=== PATIENT | female | born 1950 | race Caucasian/White ===

== ENCOUNTER → 2018-06-06 09:00 | Outpatient (CLI) | payer MEDICARE, MEDICAID, SELFPAY | PROVIDERS: PCP Family Medicine; Visit Provider Orthopaedic Surgery | DX: M25.561 Pain in right knee (principal); M48.50XA Collapsed vertebra, not elsewhere classified, site unspecified, initial encounter for fracture | CPT/HCPCS: 99214 ==

== ENCOUNTER → 2018-06-11 01:31 | Outpatient (CLI) | payer MEDICARE, MEDICAID, SELFPAY ==
--- NOTE | 2018-06-11 11:15 | DI.REPORT_ITS ---
SYMPTOM/DIAGNOSIS: RT INTERNAL DERANGEMENT, PAIN RIGHT KNEE MRI: Comparison is made with plain films dated 04/25/18. Fat suppressed T 2 axial, proton density and fat suppressed T 2 sagittal and proton density and fat suppressed T 2 coronal and proton density oblique sagittal sequences were performed. There is moderate sized joint effusion and a small Fleming's cyst. There is edema in the subcutaneous fat but no prepatellar collection. Loose bodies are seen within the Fleming's cyst. Cruciate and collateral ligaments and extensor mechanism appear intact. There is some amorphous increased signal in the posterior horn and body of the medial meniscus but no evidence of a discrete tear. There is some edema in the medial tibial plateau which could represent a bone contusion versus degenerative change. The medial meniscus is also somewhat peripherally displaced, consistent with degeneration. There is mild periarticular spurring. There is thinning of the cartilage extending down to bone at the patellar apex and lateral patellar facet. IMPRESSION: Moderate sized joint effusion and Fleming's cyst. Loose bodies are seen in the Fleming's cyst. Degenerative changes are noted at the medial meniscus as well as cartilage thinning extending down to bone of the patella.
== END ==
PROVIDERS: PCP Family Medicine; Visit Provider Orthopaedic Surgery
DX: M25.561 Pain in right knee (principal); M25.461 Effusion, right knee; M71.21 Synovial cyst of popliteal space [Baker], right knee; M17.11 Unilateral primary osteoarthritis, right knee
CPT/HCPCS: 73721

== ENCOUNTER → 2018-06-13 11:00 | Outpatient (CLI) | payer MEDICARE, MEDICAID, SELFPAY | PROVIDERS: PCP Family Medicine; Visit Provider Orthopaedic Surgery | DX: M25.461 Effusion, right knee (principal); M17.11 Unilateral primary osteoarthritis, right knee; M71.21 Synovial cyst of popliteal space [Baker], right knee | CPT/HCPCS: 20610; 99213; J1040 ==

== ENCOUNTER 2018-06-20 13:00 | Outpatient (RCR) | payer MEDICARE, MEDICAID, SELFPAY ==
--- NOTE | 2018-06-15 10:34 | IE_ITS ---
Date: June 15, 2018 Referring: Trevin Ospina MD M.D. Diagnosis: R knee pain and back pain P.T. Diagnosis: Difficultly changing position, difficulty walking SUBJECTIVE: History of Present Illness: Pt describes herself as a retired [employer]. She has been disabled for quite some time now due to a disability in the L shoulder. She has been experiencing R knee pain for 4 months now ever since she was shopping in [place] and her R knee gave out. It has been sore ever since.She has been seen by orthopaedics and an MRI confirmed the potential for a Fleming's cyst and arthritis. The knee pain has remained steady, has not gotten any better or worse. The knee has been aspirated of fluid and also injected. She has had back pain ever since she was bending over and felt a pop in her back. It hurts occasionally with housework, but she is able to manage. She also uses patches for relief. No bowel or bladder changes. No numbness or tingling down the legs. Pain Ratin/10 mainly in the knee. Prior Level of Function: Unrestricted. Current Level of Function: Difficultly lifting any thing from the ground difficulty with walking longer distances greater than 1 block. Previous Treatment: Nothing. Social: She lives in [facility] with her grandson. Comorbidities: Diabetes, hypertension, shoulder surgery, arthritis and high BMI. Medications: Sitilopram, simvastatin, losartan, glimepiride, donepezil. Quality of Life: __X__ Good Standardized Measures: LEFS score: __48%__ OBJECTIVE: Posture: In standing pt demonstrates obesity much more sequestered to the upper quarter than the lower quarter. Gait: Antalgic with a reduction of stance time through the RLE during stance phase of gait. Palpation: Tender through the popliteal fossa of the R knee. Also tender over the medial and lateral margins of the patellofemoral joint. ROM: Measurements for this pt are as follows: Multi-segmental trunk flexion unlimited to full end range. No pain with this maneuver today. Multi-segmental trunk extension limited to 50% of available motion with only a pinching sensation at end range. Multi-segmental side bending limited to 50% of available motion bilaterally Hip flexion WNL Hip IR and ER WNL Knee ROM pt has tenderness through end range knee extension on the R, but she achieves end range. Unlimited extension on the L with no pain. Flexion 115 degrees R with pain at end range. L 125 degrees with no pain Strength: Measurements for this pt are as follows: Hip flexion 4+/5 bilaterally Quads 4+/5 R mild pain upon resistance, 5/5 L Hamstrings 4+/5 R mild pain upon resistance, 5/5 L Dorsifelxion 5/5 Plantar flexion 5/5 Glute medius 4-/5 bilaterally Neuro: Pt intact to light touch and sensation through LE dermatomes. Motor control appears intact through associated myotomes and pt demonstrates appropriate proprioception and kinesthetic awareness. Special Tests: Katie, varus valgus, posterior draw testing negative for any ligamentous compromise at the R knee. Sherry testing mildly positive R, negative L. Straight leg raise limited by hamstring extensibly and mild apprehension and pain due to the low back; she is limited to about 45 degrees R and 60 degrees L. Treatment: IE and assessment of functional abilities, as well as training in a formal exercise program. Pt demonstrated verbal acknowledgment and technique demonstration. IE: [id number] Direct treatment time: 60 min Total treatment time: 60 min ASSESSMENT: Patient is a 67-year-old female with a history of mild-moderate health conditions affecting function, referred for PT services with the diagnosis of R knee pain and back pain. Patient presents with clinical signs and symptoms consistent with a mechanical derangement through the R knee and possible mechanical derangement through the lumbar spine as well, as demonstrated by the following impairment level findings: mild deficits with multi-segmental trunk extension, deficits with knee extension with pain at end range, mild ROM and strength deficits through the R knee, mildly positive Sherry testing. Impairments are contributing to the following functional limitations:difficulty with walking, difficulty with any lifting from the floor. Patient is assessed as: __X__ Moderate [id number] complexity, based on the following: History: (list): High BMI, diabetes, hypertension, shoulder surgery and arthritis. Examination: (list): Weakness through the R knee with pain upon resistance , limited ROM through the R knee, antalgic gait pattern, limited back extension with multi-segmental assessment. Presentation: X Evolving Decision-Making: X Moderate complexity 48 % Disability based on LEFS __X__ Patient requires skilled PT intervention to remediate the above functional limitations to return to: __X__ Premorbid level of function Prognosis: __X__ Good as evidence suggests improvement of functional abilities with compliance to a detailed HEP tailored to her diagnosis and following through with PT intervention. G-Codes (fill in modifier after appropriate code): Patient's primary functional limitation is in the category of: __X__ Mobility - walking and moving around : [id number] as justified by her inability to walk greater than 1 block at one time and also limited ability to lift anything from the floor. Projected goal: __X__ Mobility - walking and moving around: [id number] KX modifier to be utilized as justified by above documentation for necessity of continued Physical Therapy intervention to attend to functional deficits which have not been fully remediated as they approach their Medicare cap. STG: __2__ weeks. 1. Pt will be independent in HEP both verbally and with ideal technique demonstration. LTG: __6__ weeks. 1. Pt able to walk 1 mile within 20 min. with ideal body mechanics and no evidence of pain. 2. Pt able to lift an object of 30 lbs from the floor with ideal body mechanics and no evidence of pain. PLAN: Patient to be seen 2 x per week, for 6 weeks, adjusting frequency of visits per patient symptoms and response to treatment. Treatment to include: X Manual therapy - [id number]: for enhancing muscle extensibility and improving joint arthrokinematics. X Therapeutic exercise - [id number] tactile cues, verbal education and advanced movement correctives for establishing muscle symmetry and stability motor control for the core and pelvic girdle and LEs. X Ultrasound and e-stim available for pain modulation as necessary. The pt will be monitored for compliance to HEP and pts status will be updated accordingly. Plan may be modified as symptoms dictate. Thank you for this referral. Please do not hesitate to contact me with any questions or concerns regarding this patient's plan of care. ANGEL LUIS/nava MEDICAREDr. Ospina, please sign below and return to PT if you agree with above POC. Trevin Ospina, [place] Date cc:Trevin Ospina
--- NOTE | 2018-06-20 10:15 | PTTR_ITS ---
DATE: 06/20/18 SUBJECTIVE: Patient states she is seeing no sure improvement yet with the knee. Her back is a bit better. OBJECTIVE: Manual therapy: ([id number]). The patient was placed in supine where she was gently decompressed through the knee and hip with low load, long duration holds via long axis traction. Softly mobilized in the place of abduction through the hip. She was then placed in about 20 to 30 of knee flexion where soft anterior glide is promoted with oscillations of Grade 3 distribution of strength. She was also mobilized with anterior glide on top of short arc flexion through the knee. She was then mobilized softly with knee flexion utilizing a posterior blocking technique to create a false end point. She is able to achieve about 115 of motion with this technique. While seated she is once again held under traction, and mobilized through a limited arc of motion from 60 to 10 . She tolerated today' s session fairly well. Direct treatment time: 25 minutes Brian Thao DPT gc
--- NOTE | 2018-06-22 13:56 | NT_ITS ---
NON TREATMENT NOTE: 06/22/18 Patient called in to cancel today's appointment.
== END 2018-06-22 23:59 | disposition home or self-care (01) ==
LOC: PT 13:00
PROVIDERS: PCP Family Medicine; Referring Provider Physician Assistant Surgical; Visit Provider Physician Assistant Surgical
DX: M25.561 Pain in right knee (principal)
CPT/HCPCS: 97140; 97162; G8978

== ENCOUNTER 2018-06-26 16:15 | Emergency (ER) | payer MEDICARE, MEDICAID, SELFPAY ==
[2018-06-26 16:23] VITALS: BP 145/78; PULSE 108; RESP 18; TEMP 37
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
== END 2018-06-26 17:04 | disposition home or self-care (01) ==
PROVIDERS: Emergency Provider Student in an Organized Health Care Education/Training Program; PCP Family Medicine
DX: R45.1 Restlessness and agitation (principal); Z53.29 Procedure and treatment not carried out because of patient's decision for other reasons
CPT/HCPCS: 99283

== ENCOUNTER → 2018-08-01 10:09 | Outpatient (BNVA) | payer MEDICARE, MEDICAID, SELFPAY | PROVIDERS: Visit Provider Orthopaedic Surgery | DX: M25.561 Pain in right knee (principal); M17.11 Unilateral primary osteoarthritis, right knee | CPT/HCPCS: 99213 ==

== ENCOUNTER 2018-08-02 12:47 | Outpatient (CLI) | payer MEDICARE, MEDICAID, SELFPAY ==
--- NOTE | 2018-08-02 21:27 | HPE_ITS ---
Assessment and Plan (1) Internal derangement of right knee: Current visit: Yes Status: Acute Right knee arthroscopy by Dr. Ospina scheduled for 08/06/2018 . The general anatomy postop procedure typical postop course are reviewed with Elly all questions are answered. History of Present Illness Chief Complaint: right knee pain Narrative: Elly has been troubled by persistent medial achy discomfort and mild swelling since a hyperextension injury at [facility] during a slip and twist. She has been troubled by pain at rest as well as with weightbearing. Her sleep has been disturbed secondary to the medial knee aching. She is using Tylenol for discomfort. There is been no history of locking or giving way with falls resulting. She did undergo 2217 injection of her knee with corticosteroid and this resulted in no change in her discomfort. She is also been sent to physical therapy and again this did not change her level of discomfort. An MRI has been done of her knee which was remarkable for a large effusion along with a Fleming's cyst posterior medially. An abnormal signal in the posterior horn of the medial meniscus was noted consistent with a degenerative meniscal tear along with some mild OA changes. The question remains was her effusion and persistent mild pain a function of the degenerative tear or early mild OA. This could only be answered by an arthroscopic exam of her knee. Pertinent Surgical Information Denies previous medical history of: stroke, TIA, UT, use of sublingual nitroglycerin, seizures, thyroid disease, sleep apnea, liver disease, hepatitis, hematologic disorders Denies previous complications from surgery or anesthesic agents with respect to high fever, prolonged vomiting and difficulty waking up Review of Systems Constitutional Denies fever(s) and Denies headache(s) ENT Denies headache(s) Cardiovascular Denies chest pain, Denies chest pain with activity, Denies palpitations, Reports dyspnea on exertion, Denies orthopnea and Denies paroxysmal nocturnal dyspnea Respiratory Reports cough, Reports dyspnea on exertion and Denies wheezing Comments: has dry nonproductive cough Gastrointestinal Denies abdominal pain, Denies melena, Denies hematochezia, Denies nausea and Denies vomiting Genitourinary Denies hematuria, Denies urinary frequency and Denies dysuria Comments: Denies burning sensation with urination Musculoskeletal Reports as per HPI Neurologic Denies headache(s) Psychiatric Denies anxiety and Denies depression Endocrine Denies palpitations Comments: Denies any unplanned weight changes Allergic/Immunologic Denies wheezing Meds Home Medications Medication Instructions Recorded Confirmed Type albuterol sulfate [Ventolin HFA] 2 puff INHALATION Q4H PRN #1 10/09/14 08/02/18 History inhaler simvastatin 1 tab PO HS #90 tab 10/09/14 08/02/18 History lancets #400 ea 12/02/14 08/01/18 History bisacodyl 5 mg PO DAILY tab-cap 03/22/18 08/02/18 History escitalopram oxalate 10 mg PO .NOON tab-cap 03/22/18 08/02/18 History glimepiride 4 mg PO BID #180 tab 03/22/18 08/02/18 History pantoprazole 40 mg PO DAILY tab-cap 03/22/18 08/02/18 History Oxygen l NS HS #2 03/23/18 08/01/18 History blood sugar diagnostic [Blood #400 strip 03/23/18 08/01/18 History Glucose Test] donepezil 5 mg PO DAILY tab-cap 03/23/18 08/02/18 History pen needle, diabetic [Pen Needle] #4 box 03/23/18 08/01/18 Rx albuterol sulfate 2.5 mg INHALATION Q6H PRN #10 vial 04/26/18 08/02/18 Rx epinephrine [EpiPen 2-Gordon] 0.3 mg IM ONCE #1 pack 05/07/18 08/02/18 Rx insulin lispro [Humalog KwikPen 0 SQ as directed 30 Days #1 pen 05/07/18 History Insulin] Blister Gordon 05/25/18 08/01/18 Clinic Varicella-Zoster Ge/As01b/Pf 50 mcg IM ONCE #1 kit 06/08/18 08/01/18 Clinic [Shingrix Vial Kit] cyclobenzaprine 5 mg PO TID PRN 14 Days #42 tab-cap 06/08/18 08/02/18 History losartan 25 mg tablet 25 mg PO BID 39 Days #60 tab-cap 07/09/18 08/02/18 Rx prednisone 1 mg tablet 1 mg PO DAILY #14 tab 07/12/18 08/01/18 Rx prednisone 2.5 mg tablet 2.5 mg PO DAILY #14 tab 07/12/18 08/02/18 Rx prednisone 5 mg tablet 5 mg PO DAILY #14 tab 07/12/18 08/01/18 Rx insulin glargine [Lantus Solostar] 60 u SUB-Q HS 08/02/18 08/02/18 History Allergies Allergy/AdvReac Type Severity Reaction Status Date / Time aspirin Allergy HIVES, Verified 08/02/18 15:31 flip out diclofenac Allergy RASH Verified 08/01/18 10:44 latex Allergy SKIN Verified 08/01/18 10:44 BREAKDOWN NSAIDS (Non-Steroidal Allergy HIVES, Verified 08/01/18 10:44 Anti-Inflamma VOMITING morphine AdvReac VOMITING Verified 08/01/18 10:44 Exam Narrative Exam Narrative: 133/73 88-89 20 95% sat Const General: cooperative HENMT Throat: posterior oropharynx normal Eyes General: appearance normal, both eyes and all related structures Conjunctivae: conjunctivae normal Sclera: sclerae normal Neck Neck: no JVD Carotids: normal carotid upstroke and no bruits Resp Effort & Inspection: normal respiratory effort and able to speak in complete sentences Auscultation: clear to auscultation bilaterally, no rales, no rhonchi and no wheezes Cardio Rate: regular rate Heart Sounds: S1 normal, S2 normal and no murmurs Bruits: no abdominal aortic bruits Pulses: normal peripheral pulses Other: No pulsatile mass noted with palpation over the abdominal aorta GI Palpation: soft and no hepatosplenomegaly Auscultation: normal bowel sounds General: No CVA tenderness Extrem General: no pedal edema Other: Normal sensation to light touch No web space cracks or splits noted her knee shows a scant effusion she has full knee extension with flexion intact to 120 degrees she has mild medial joint line tenderness Sherry exam does not show any palpable click with pain. Her collateral ligaments are stable as well as anterior posterior she is stable. She has no pain with medial lateral displacement of her patella.
== END 2018-08-02 13:07 ==
PROVIDERS: PCP Family Medicine; Visit Provider Orthopaedic Surgery
DX: M25.561 Pain in right knee (principal); S83.241A Other tear of medial meniscus, current injury, right knee, initial encounter; Z01.818 Encounter for other preprocedural examination

== ENCOUNTER 2018-08-06 10:07 | Day surgery (SDC) | payer MEDICARE, MEDICAID, SELFPAY ==
[2018-08-06] VITALS (10 sets, daily range): BP systolic 104–136; BP diastolic 37–75; PULSE 76–91; RESP 16–19; TEMP 35.6–36.9; O2SAT 93–98
[2018-08-06] MEDS: Lactated Ringers 1,000 ML 80 ML IV (11:00)
--- NOTE | 2018-08-06 12:58 | PDOC.DSDIS_ITS ---
Discharge Plan Disposition Patient Disposition: HOME Condition: Good Discharge Details Reason For Visit: TORN (R) MEDIAL MENISCUS Attending Provider: Trevin Ospina Primary Care Provider: Mario Garcia Home Meds and New Rx's Prescriptions: New oxycodone-acetaminophen [Percocet] 5-325 mg tablet 1 tab PO Q6H PRN (Reason: pain) Qty: 20 RF: 0 Continue prednisone 5 mg tablet 5 mg PO DAILY Qty: 14 RF: 0 prednisone 1 mg tablet 1 mg PO DAILY Qty: 14 RF: 0 prednisone 2.5 mg tablet 2.5 mg PO DAILY Qty: 14 RF: 0 simvastatin 40 MG tablet 1 tab PO HS Qty: 90 RF: 4 albuterol sulfate [Ventolin HFA] 8 GM HFA aerosol inhaler 2 puff Inhalation Q4H PRN Qty: 1 RF: 4 lancets 1 EACH misc 1 ea Miscellaneous TID PRNQty: 400 RF: 3 pantoprazole 20 MG tablet,delayed release (DR/EC) 40 mg PO DAILY RF: 0 escitalopram oxalate 10 MG tablet 10 mg PO .NOON RF: 0 Oxygen EACH NS HS Qty: 2 RF: 0 blood sugar diagnostic [Blood Glucose Test] 1 EACH strip 1 ea Miscellaneous TID PRNQty: 400 RF: 4 pen needle, diabetic [Pen Needle] 1 EACH needle 1 ea Miscellaneous QID Qty: 4 RF: 3 epinephrine [EpiPen 2-Gordon] 0.3 MG/0.3 ML auto-injector 0.3 mg IM ONCE Qty: 1 RF: 0 insulin lispro [Humalog KwikPen Insulin] 100 UNIT/1 ML insulin pen SQ as directed 30 Days Qty: 1 RF: 6 blister gordon RF: 0 cyclobenzaprine 5 MG tablet 5 mg PO TID PRN14 Days Qty: 42 RF: 3 Varicella-Zoster Ge/As01b/Pf [Shingrix Vial Kit] 50 MCG INJ 50 mcg IM ONCE Qty: 1 RF: 1 losartan 25 mg tablet 25 mg PO BID 39 Days Qty: 60 RF: 6 bisacodyl 5 mg tablet,delayed release (DR/EC) 5 mg PO DAILY Qty: 30 RF: 11 donepezil 5 mg tablet,disintegrating 5 mg PO DAILY Qty: 30 RF: 11 glimepiride 4 mg tablet 4 mg PO BID Qty: 60 RF: 11 insulin glargine [Lantus Solostar U-100 Insulin] 100 UNIT/1 ML insulin pen 60 u Sub-Q HS RF: 0 acetaminophen [Tylenol Extra Strength] 500 mg Tablet 1,000 mg PO Q6H PRNRF: 0 albuterol sulfate 2.5 MG/3 ML solution for nebulization 2.5 mg Inhalation Q6H PRNQty: 10 RF: 0 Discharge Instructions Additional Instructions: Elevate R knee on 2-3 pillows as much as possible over next 48 hours. USE CRYOCUFF on R knee continuously overnite. Tomorrow, start to use cryocuff 4 times/day for 1 hour each time. May remove dressings, shower, and get incisions wet on Wed. Leave incisions uncovered when they are sealed and dry. Loosen louis bandages if R foot swells. Crutches to walk. Put as much weight on R foot as your pain allows. Discontinue crutches when you can step fully on R foot with mild pain. Outpatient Physical Therapy on Mon or for rehab R knee post-arthroscopic partial medial meniscectomy. Follow up in 's office in 2 weeks. Take oxycodone as prescribed, if needed, for pain not relieved by tylenol. Referrals: Trevin Ospina MD [ [facility] STAFF PHYSICIAN] - (Follow up in 2 weeks.) Denis Barfield PT [PHYSICAL THERAPIST] - (Start R knee rehab post-arthroscopy on Mon or .) Equipment/Supplies: Partial Weight Bearing Crutches Activity:: Activity as Tolerated Remove Dressings/Wound Care:: 48 hours Shower/Bathe:: 48 hours Diet:: As Tolerated Discharge Orders Discharge Orders: Discharge Order (Routine); Ordered 08/06/18 Ordered By: Trevin Ospina DS: Diagnosis Discharge Diagnosis (1) Internal derangement of right knee: Status: Acute
[2018-08-06] MEDS: Insulin REGULAR-Human 100 UNITS/ML UNIT SC (13:21)
--- NOTE | 2018-08-06 15:03 | PT.INTREAT ---
Date of service: 08/06/18 Time of Service: 15:03 PT Notes Inpatient Physical Therapy Treatment Note Date: 08/06/18 68yr old female s/p R knee post-arthroscopic partial medial meniscectomy 08/06/[address] Ospina - PT Consult received for crutch training. Nursing reports patient still recovering from spinal anesthesia, requested verbal instruction in crutch training for patient prior to discharge. PRECAUTIONS: WBAT R LE Patient Education: Pt lying on gurney bed, cryocuff in place, LE elevated. Pt does not yet have full motor control or sensation of right leg. Pt issued handout for crutch training instructions on level surface, up/down stairs and up/down from chair. Axillary crutches present in room adjusted to patient's height 4ft 11inches. Demonstration provided and verbal instruction provided to patient for transfers up/down from chair, gait on level surface and stair sequence with use of axillary crutches, WBAT R LE. Pt has bilateral railings at home and plans to use single railing and single crutch for ascending/descending steps. Pt verbalized understanding of all instructions provided. Plan is discharge to home setting per MD instructions. TREATMENT CODE/TIME: 15min GTx1 G codes in the area of mobility, walking and moving around:( at time of visit G codes represent functional mobility while still recovering from anesthesia) current status GP [id number], projected status GP [id number] with discharge status GP [id number] Cheyenne Hampton PT
[2018-08-06] MEDS: oxyCODONE-CR 10 MG TABCR PO (17:00)
[2018-08-06] MEDS: oxyCODONE-CR 10 MG TABCR (17:00)
--- NOTE | 2018-08-06 20:22 | ROE_ITS ---
DATE OF PROCEDURE: August 06, 2018 PREOPERATIVE DIAGNOSIS: Internal derangement right knee. POSTOPERATIVE DIAGNOSIS: Internal derangement right knee due to a torn medial meniscus and a medial patella plica. She also had some osteoarthritis of the medial compartment of the right knee. PROCEDURE: #1. Arthroscopic partial right medial meniscectomy. #2. Resection of a medial patella plica (limited synovectomy). SURGEON: Trevin Ospina M.D. ANESTHESIA: General, Víctor Boogie CRNA INDICATIONS: This is a 68-year-old white female who has developed significant medial right knee pain following minor trauma. She had minimal osteoarthritis findings on her x-rays. Her symptoms appear ed to be mechanical in nature. She has not responded to conservative treatment including Physical Th erapy, oral anti-inflammatory medications, and intra-articular cortisone injection. Because of the f ailure to improve with conservative treatment, arthroscopic examination of her knee was recommended t o alleviate the internal derangement. The risks and complications of the procedure were explained to the patient in detail preoperatively. PROCEDURE: The patient was taken to the Operating Room on 08/06/18. She was placed supine on the op erative table and general anesthetic was administered. The right thigh was placed in the arthroscopi c leg etienne and the right knee was prepped and draped free in the usual sterile fashion. Arthroscop ic portals were established and the knee was inflated with normal saline solution using the arthrosAnonymAsk py pump. Routine arthroscopic examination proceeded. Intraoperative photographs were obtained to do cument findings. Upon entering the medial compartment she was noted to have a complex tear of the anterior horn of the medial meniscus. The remainder of the meniscus was intact and undamaged. The meniscal body was pro bed under direct vision with a right-angle probe and was stable except for the anterior horn tear. T he anterior horn tear was resected using the high-radiofrequency electrocautery wand through a separa te anteromedial portal. The patient had evidence of grade 2 osteoarthritis in the tibial plateau. T he medial femoral condyle had normal articular cartilage with no lesions seen. The intercondylar notch was intact to anterior and posterior cruciate ligaments. The lateral compartment showed a normal lateral meniscus stable to probing under direct vision. The patient also had normal articular cartilage in the lateral compartment. The suprapatellar pouch demonstrated some mild synovitis. The lateral gutter could not be seen becau se a prominent medial patella plica was in place. The medial patella plica was then resected using t high-radiofrequency electrocautery wand. Patellar tracking was anatomic. There evidence of some grade 2 OA of the trochlea of the femur. There was no significant articular cartilage damage to the patella. The knee was then copiously irrigated with saline solution using the arthroscopy pump until the outfl ow was clear. Twenty cc of 0.5% Marcaine with epinephrine solution were instilled into the right kne e and all instruments were removed from the knee. The arthroscopy portals were infiltrated with 0.5% Marcaine with epinephrine solution and were approximated with interrupted #4-0 nylon sutures. Steri le dressings were applied, followed by a light compressive dressing to the right knee. The patient t olerated the procedure well. Her anesthesia was reversed without complication. She was discharged t o Recovery in good condition. Her blood loss was minimal. The patient was discharged home from the Day Surgery Unit when fully recovered from her general anest hesia. She was given instructions to try to elevate her right knee on two to three pillows as much a s possible for the next 48 hours. She is to use a Cryo/Cuff to the right knee continuously overnight tonight. Tomorrow she will start using the Cryo/Cuff 4 times a day for an hour each time. She is t o use crutches to walk, weightbearing as tolerated to the right leg. She may discontinue the crutche s when she can put full weight on her right foot with minimal pain. She may remove her dressings, sh ower and get her incisions wet after 48 hours. She is to leave the incisions uncovered when they are dry and sealed. She is given a prescription for pain of Percocet 5 mg/325 mg, 1 tablet every 6 hour s as needed, 20 tablets. She will take Tylenol for mild pain. She will begin outpatient Physical Th srikanth on Monday or , the or 09 of August, to begin rehab of her right knee post ar throscopy. She will follow up in Dr. Ospina's office in two weeks.
== END 2018-08-06 18:23 | disposition home or self-care (01) ==
PROVIDERS: PCP Family Medicine; Visit Provider Orthopaedic Surgery
PROC: (CPT 29870; principal; 2018-08-06 11:00)
DX: S83.231A Complex tear of medial meniscus, current injury, right knee, initial encounter (principal); X58.XXXA Exposure to other specified factors, initial encounter; M65.9 Synovitis and tenosynovitis, unspecified; M67.51 Plica syndrome, right knee; M17.11 Unilateral primary osteoarthritis, right knee
CPT/HCPCS: 29881; 97116; E0114; J0131; J1100; J1885; J2250; J2405; J3010

== ENCOUNTER → 2018-08-21 08:53 | Outpatient (BNVA) | payer MEDICARE, MEDICAID, SELFPAY | PROVIDERS: PCP Family Medicine; Referring Provider Family Medicine; Visit Provider Orthopaedic Surgery | DX: Z47.89 Encounter for other orthopedic aftercare (principal); M65.9 Synovitis and tenosynovitis, unspecified ==

== ENCOUNTER 2018-09-06 15:02 | Outpatient (CLI) | payer MEDICARE, MEDICAID, SELFPAY ==
--- NOTE | 2018-09-06 10:36 | DI.RAD_ITS ---
SYMPTOM/DIAGNOSIS: COUGH FOR 3 MONTHS J84.10, PULMONARY FIBROSIS PA AND LATERAL CHEST: 09/06/18 The examination is compared with previous examination of 04/25/2018 and with previous examination of 11/09/2013. The 2013 chest radiograph was unremarkable. On today's examination there are bilateral diffuse pulmonary interstitial radiodensities, grossly unchanged in comparison with previous examination of 04/25/18. CONCLUSION: Persistent but essentially unchanged bilateral interstitial pulmonary infiltrates, question pulmonary fibrosis. No change from 04/25/2018.
== END 2018-09-06 15:22 ==
PROVIDERS: PCP Family Medicine; Visit Provider Family Medicine
DX: R05 Cough (principal); J84.10 Pulmonary fibrosis, unspecified; R91.8 Other nonspecific abnormal finding of lung field
CPT/HCPCS: 71046

== ENCOUNTER 2019-01-18 14:29 | Outpatient (CLI) | payer OTHER, MEDICAID, SELFPAY ==
--- NOTE | 2019-01-18 12:00 | DI.RAD_ITS ---
SYMPTOMS/DIAGNOSIS: INTERSTITIAL LUNG DISEASE, WORSENING COUGH X 3 WEEKS, PNEUMONIA, J18.9 CHEST X-RAY, FRONTAL AND LATERAL VIEWS: Comparison is 09/06/18. The cardiac silhouette is within normal limits. There is poor inspiration with stable mild elevation of the right hemidiaphragm. There are bilateral interstitial infiltrates, which appear stable and likely reflect chronic disease. No new infiltrates, effusions or pneumothoraces are identified. IMPRESSION: Stable bilateral interstitial infiltrates, which may be chronic. No acute change in appearance of the chest since 09/06/18.
== END 2019-01-18 14:49 ==
PROVIDERS: PCP Family Medicine; Visit Provider Family Medicine
DX: J18.9 Pneumonia, unspecified organism (principal); R05 Cough; J84.9 Interstitial pulmonary disease, unspecified
CPT/HCPCS: 71046

== ENCOUNTER 2019-01-19 20:48 | Inpatient (IN) | payer OTHER, MEDICAID, SELFPAY ==
[2019-01-19] VITALS (19 sets, daily range): BP systolic 92–152; BP diastolic 34–108; PULSE 105–118; RESP 2–33; TEMP 36.3; O2SAT 89–100
--- NOTE | 2019-01-19 21:04 | DI.RAD_ITS ---
SYMPTOM/DIAGNOSIS: COUGH, SOB PA AND LATERAL CHEST: The examination is compared with previous examination of 01/18. Note is again made of bilateral patchy intrapulmonary infiltrates, no gross interval change in appearance in comparison with the previous examination. No gross pleural effusion is seen. CONCLUSION: Bilateral intrapulmonary infiltrates, no gross interval change from 01/18/19.
[2019-01-19] MEDS: methylPREDNISolone SUCC 125 MG VIAL IVP (21:13)
[2019-01-19] MEDS: Albuterol/Ipratropium 3 ML UPD VIAL UPD ×3 (21:13→21:20)
[2019-01-19] MEDS: Normal Saline Flush 10 ML SYR IVP (21:14)
[2019-01-19 21:17] LABS: Abs Immature Grans 0.06 k/cumm (0.0-0.09); Absolute Basophil Count 0.02 k/cumm (0.0-0.2); Absolute Eosinophil Count 0.04 k/cumm (0.0-0.7); Absolute Lymphocyte Count 1.75 k/cumm (1.2-3.4); Absolute Monocyte Count 0.39 k/cumm (0.11-0.7); Absolute Neutrophil Count 5.96 k/cumm (1.2-6.7); Basophils % 0.2; Eosinophils % 0.5; HCT 39.5 % (36.0-46.0); Immature Grans % 0.7; Lymphocytes % 21.3; Mean Corp. HGB Concentration 32.9 g/dL (32.0-36.0); Mean Corpuscular Hemoglobin 30.3 pg (27.0-33.0); Mean Corpuscular Volume 92.1 fL (80-95); Mean Platelet Volume 10.2 fL (8.0-11.0); Monocytes % 4.7; Neutrophils % 72.6; Platelet Count 212 x1000/uL (130-400); RBC 4.29 m/cumm (4.00-5.20); RBC Distribution Width 15.4 % (11.7-14.6); White Blood Cell Count 8.22 k/cumm (4.4-10.8)
--- NOTE | 2019-01-19 21:20 | ED.GENADUL_ITS ---
Discharge Plan Disposition Patient Disposition: [facility] INPATIENT Condition: Good Discharge Details Chief Complaint: SOB Clinical Impression: Pneumonia, Asthma exacerbation in COPD Admit Date/Time: 01/19/19 23:14 Admit Provider: Tre Carrizales Attending Provider: Randi Dyer Primary Care Provider: Mario Garcia ED Provider: Olvin Cesar Hospital Course Hospital Course: Ms Pina is a 68 year old female with PMHx of COPD with chronic hypoxic respir atory failure, on O2 at 2L, interstitial lung disease, IDDM2, mild cognitive impairmant, admitted to [facility] ICU on 01/19/19 for acute pneumonia/pneumonitis and acute exacerbation of COPD. She was placed on BiPAP, She was started on levofloxacin, vancomycin, zosyn due to the patient felt to be getting septic. She was treated with systemic steroids and nebs. She also had an SYD which was treated with IVF. She had to have additional coverage with steroids (including addition of NPH while on high dose steroids) for her steroid-induced hyperglycemia. Her blood cultures show no growth to date. She received 7 days of IV antibiotics with significant clinical improvement (as well as resolution of findings on CXR). Her room air oxygen saturation while ambulating is 87%, but goes up to 91% on 2L. It is felt that the patient can be safely discharged home on 2L of O2 at all times. She feels at her baseline. She is to finish her steroid taper at home. She is to monitor her BG's and return to the hospital if they are >400. It needs to be noted that the patient stayed 2 extra days because of significant epigastric discomfort. Her imaging (CT) revealed gastritis. She felt better with increasing of the dose of the PPI. She would need to follow up for an outpatient EGD if desired. Please, also note that the patient is going to have repeat blood work on 02/04. Her WBC on day of discharge was 20, felt to be due to an additional pulse of steroids that she was given. She is afebrile without any evidence of new infection. It is important to ensure that her leucocytosis resolves post completion of steroid course. Discharge Instructions Instructions: Prednisone (By mouth), COPD (Chronic Obstructive Pulmonary Disease) (DC) Additional Instructions: Pt. is scheduled for outpt chest CAT scan for 02/07/19. Please arrive by 12:45. Return to the hospital with any fever, bleeding, chest pain, or shortness of breath. Finish your steroids as prescribed. Return to the hospital if your blood sugars are >400 Care Plan Goals: Discharge home with home health nursing and PT. Forms: Nursing Discharge Form Referrals: Mario Garcia DO [Primary Care Provider] - 02/07/19 9:30 am Discharge Data Discharge Date/Time-TO BE ENTERED AT DEPARTURE: 01/20/19 00:38 Medical Decision Making 21:14 --68-year-old female with history of COPD on home O2 2 L baseline, insulin-dependent diabetes, recently diagnosed with pneumonia by primary care physician and treated with 7-day course of antibiotic, presents with worsening shortness of breath and persistent cough over the past 3 weeks. Patient is tachycardic, tachypneic, hypoxic. Patient in critical condition on arrival. Suspect worsening community acquired pneumonia refractory to augmentin and azithromycin. Will check blood cultures, lactate. Will initiate treatment with flouroquinolone. Will give duonebs and solumedrol for COPD exacerbation. -- RT consulted. --ECG reviewed and interpreted by me: Sinus tachycardia 106 bpm, normal axis, QTC 462, nondiagnostic. 22:54 -- Patient reassessed multiple times. She continues to have wheeze, improved after 4 nebs. Chest x-ray reviewed and interpreted by radiology: Similar bilateral interstitial opacities. No new focal consolidation. The study is in comparison to chest x-ray 01/18/2019. Labs reviewed and elevated lactate noted. Plan to admit. -- BNP nl. Cr elevated from baseline. Plan to give IVF bolus. Patient reassessed and seems fatigued. Plan to initiate bipap. 23:27 -- Spoke with Dr. Carrizales - he will admit to ICU. Bridging orders placed to ICU. Care transitioned to Dr. Carrizales. HPI General Mode of arrival: wheelchair . Date/Time Provider Initiated Documentation: 01/19/19 20:54 . Limitations to Documentation: no limitations . Information obtained by: patient . HPI Narrative: 68-year-old female with multiple medical problems including history of COPD, presents with chief complaint of shortness of breath. Patient notes that she uses oxygen at 2 L baseline. She has had worsening shortness of breath over the past 1-2 weeks. Shortness of breath is now severe and worse with exertion. Patient notes she has had intermittent productive cough over the past 3 weeks. She has had intermitte nt subjective fever and chills. No chest pain. She has developed some upper abdominal discomfort from the coughing. Patient also notes some recent swelling of her lower extremities bilaterally. Of note, patient states that she was seen by her primary care physician recently and completed a 7-day course of antibiotic for pneumonia. Related Data Home Medications Medication Instructions Recorded Confirmed albuterol sulfate [Ventolin HFA] 2 puff INHALATION Q4H PRN #1 10/09/14 02/07/19 inhaler simvastatin 1 tab PO HS #90 tab 10/09/14 02/07/19 lancets #400 ea 12/02/14 02/07/19 escitalopram oxalate 10 mg PO .NOON tab-cap 03/22/18 02/07/19 Blood Glucose Test #400 strip 03/23/18 02/07/19 pen needle, diabetic [Pen Needle] #4 box 03/23/18 02/07/19 epinephrine [EpiPen 2-Gordon] 0.3 mg IM ONCE #1 pack 05/07/18 02/07/19 bisacodyl 5 mg tablet,delayed 5 mg PO DAILY #30 tab-cap 08/03/18 02/07/19 release donepezil 5 mg disintegrating 5 mg PO DAILY #30 tab-cap 08/03/18 02/07/19 tablet acetaminophen [Tylenol Extra 1,000 mg PO Q6H PRN 08/06/18 02/07/19 Strength] cyclobenzaprine 5 mg tablet 5 mg PO TID PRN #42 tab-cap 09/06/18 02/07/19 fluticasone furoate 200 1 inh IH DAILY #60 each 09/06/18 02/07/19 mcg-vilanterol 25 mcg/dose inhalation powder compression stocking,knee #2 each 10/29/18 02/07/19 high,regular,large circumfer. albuterol sulfate 2.5 mg/3 mL 2.5 mg INHALATION Q6H PRN #10 vial 11/09/18 02/07/19 (0.083 %) solution for nebulization benzonatate 100 mg capsule 100 mg PO QID PRN #60 cap 11/12/18 02/07/19 Oxygen #1 each 11/29/18 02/07/19 furosemide 20 mg tablet 20 mg PO BID PRN #180 tab 11/30/18 02/07/19 linagliptin 5 mg tablet 5 mg PO DAILY #30 tab 12/18/18 02/07/19 insulin lispro (U- 100) 100 See Rx Instructions SUBCUT as 01/02/19 02/07/19 unit/mL subcutaneous pen directed 30 Days #15 ml Lantus Solostar U-100 Insulin 70 unit SC HS #15 ml 01/31/19 02/07/19 acidophilus-pectin, citrus 1 cap PO TID #90 tab 01/31/19 02/07/19 dextromethorphan-guaifenesin 10 ml PO Q4H PRN PRN #100 ml 01/31/19 02/07/19 guaifenesin [Mucinex] 1,200 mg PO BID PRN PRN #30 tab 01/31/19 02/07/19 ketoconazole 1 applic TOPICAL BID #30 gm 01/31/19 02/07/19 pantoprazole 40 mg PO BID #60 tab 01/31/19 02/07/19 sucralfate 1 g PO AC & HS #120 tab 01/31/19 02/07/19 metoclopramide HCl [Reglan] 10 mg PO Q6H #10 tab 02/02/19 02/07/19 Wheeled walker with seat and basket #1 ea 02/07/19 02/07/19 Previous Rx's Medication Instructions Recorded pen needle, diabetic [Pen Needle] #4 box 03/23/18 epinephrine [EpiPen 2-Gordon] 0.3 mg IM ONCE #1 pack 05/07/18 bisacodyl 5 mg tablet,delayed 5 mg PO DAILY #30 tab-cap 08/03/18 release donepezil 5 mg disintegrating 5 mg PO DAILY #30 tab-cap 08/03/18 tablet cyclobenzaprine 5 mg tablet 5 mg PO TID PRN #42 tab-cap 09/06/18 fluticasone furoate 200 1 inh IH DAILY #60 each 09/06/18 mcg-vilanterol 25 mcg/dose inhalation powder compression stocking,knee #2 each 10/29/18 high,regular,large circumfer. albuterol sulfate 2.5 mg/3 mL 2.5 mg INHALATION Q6H PRN #10 vial 11/09/18 (0.083 %) solution for nebulization benzonatate 100 mg capsule 100 mg PO QID PRN #60 cap 11/12/18 furosemide 20 mg tablet 20 mg PO BID PRN #180 tab 11/30/18 linagliptin 5 mg tablet 5 mg PO DAILY #30 tab 12/18/18 insulin lispro (U- 100) 100 See Rx Instructions SUBCUT as 01/02/19 unit/mL subcutaneous pen directed 30 Days #15 ml Lantus Solostar U-100 Insulin 70 unit SC HS #15 ml 01/31/19 acidophilus-pectin, citrus 1 cap PO TID #90 tab 01/31/19 dextromethorphan-guaifenesin 10 ml PO Q4H PRN PRN #100 ml 01/31/19 guaifenesin [Mucinex] 1,200 mg PO BID PRN PRN #30 tab 01/31/19 ketoconazole 1 applic TOPICAL BID #30 gm 01/31/19 pantoprazole 40 mg PO BID #60 tab 01/31/19 sucralfate 1 g PO AC & HS #120 tab 01/31/19 metoclopramide HCl [Reglan] 10 mg PO Q6H #10 tab 02/02/19 Wheeled walker with seat and basket #1 ea 02/07/19 Allergies Allergy/AdvReac Type Severity Reaction Status Date / Time aspirin Allergy Unknown HIVES, Verified 02/07/19 09:26 flip out diclofenac Allergy Unknown RASH Verified 02/07/19 09:26 latex Allergy Unknown SKIN Verified 02/07/19 09:26 BREAKDOWN NSAIDS (Non-Steroidal Allergy Unknown HIVES, Verified 02/07/19 09:26 Anti-Inflamma VOMITING morphine AdvReac Unknown VOMITING Verified 02/07/19 09:26 General Stated Complaint: SOB ALVIN: 2 Review of Systems Review of Systems All systems reviewed & are unremarkable except as noted in HPI and below Constitutional Reports as per HPI and Reports fever(s) Respiratory Reports as per HPI [facility] Medical History Internal derangement of right knee (Acute) Back pain (Chronic) Asthma (Chronic) Osteoporosis (Chronic 03/16/18) Neck pain (Chronic 03/16/18) Migraine (Chronic 04/03/14) Long-term use of high-risk medication (Chronic 03/16/18) Interstitial lung disease (Chronic 03/16/18) History of shingles (Resolved 03/16/18) Gastroesophageal reflux disease without esophagitis (Chronic 03/16/18) Essential hypertension (Chronic 07/17/13) Edema (Chronic 03/16/18) Dyspnea (Chronic 03/16/18) Depressive disorder (Chronic) Cubital tunnel syndrome (Resolved 03/16/18) Cognitive impairment (Chronic 03/16/18) Chronic constipation (Chronic 03/16/18) Anxiety (Chronic 03/16/18) Acute gastroenteritis (Resolved 03/16/18) Umbilical hernia (Chronic) Type II diabetes mellitus, uncontrolled (Chronic) Total urinary incontinence (Chronic) Shoulder pain (Chronic) Post herpetic neuralgia (Chronic 03/16/18) Peripheral neuralgia (Chronic) 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) Hyperlipemia (Acute) Asthma (Chronic) Insulin dependent diabetes mellitus (Chronic) Surgical History Appendectomy Arthroscopy, Shoulder Bilateral salpingectomy with oophorectomy section Cholecystectomy Ligation of fallopian tube Thoracoscopic (R)Lung Bx (02/12/18) Family History Mother Diabetes Essential hypertension CHF (congestive heart failure) Heart disease Father Diabetes Essential hypertension CAD (coronary artery disease) Heart disease Hyperlipidemia Stroke Sister Diabetes Personal history of malignant neoplasm Asthma Brother Diabetes Essential hypertension Personal history of malignant neoplasm Hyperlipidemia Asthma Social History Smoking/Tobacco Use Status: Never Alcohol Intake: never Details: monthly or less Drug use: Never Substance use type: does not use Adopted: No Caregiver/Support person: No Foster care: No Household members: other Details: grandson Housing: apartment Number of Children: 2 current occupation: disabled What type of physical activity do you participate in: none Duration: 15-30 minutes/day Frequency: daily Drive intox or ride w/intox ems driver: No Water heater temp set <120 deg: Yes Working smoke detector in home: Yes Fire extinguisher in home: Yes Carbon monox detector in home: Yes Do you feel safe at home: Yes Do you feel safe in your relationship?: Yes Exam Const General: cooperative and well developed Orientation: alert and awake HENMT Mouth: moist mucous membranes Eyes Conjunctivae: normal conjunctivae Sclera: normal sclerae Neck Neck: trachea midline, supple and no JVD Resp Effort & Inspection: cough, labored, respiratory distress and tachypneic Auscultation: rales and wheezes expiratory wheezes (bilateral) Cardio Jugular venous pressure: no JVD Rate: tachycardic Rhythm: regular rhythm GI Palpation: soft, not firm, no guarding, no masses, no pulsatile masses, not rigid and tender in the LUQ and in the RUQ Auscultation: normal bowel sounds Skin General skin exam: no rashes or lesions noted Neuro General: alert, awake, oriented x3 and tone normal Extrem General: no calf tenderness and edema Laterality: bilateral (trace) Psych Appearance: grossly normal Course Vital Signs Temperature 36.3 C L 01/19/19 21:00 Pulse 112 H 01/19/19 21:00 Respiratory Rate 23 01/19/19 21:00 Blood Pressure 152/108 H 01/19/19 21:00 Pulse Oximetry 89 L 01/19/19 21:00 Temperature 36.3 C L 01/19/19 21:00 Temperature Source Skin 01/19/19 21:00 Pulse 112 H 01/19/19 21:00 Respiratory Rate 23 01/19/19 21:00 Respiratory Effort Incrsd Work of Breathing 01/19/19 21:02 Blood Pressure 152/108 H 01/19/19 21:00 Pulse Oximetry 89 L 01/19/19 21:00 Oxygen Delivery Method Nasal Cannula 01/19/19 21:00 Oxygen Flow Rate 2 01/19/19 21:00 Lab/Test Results Lab/Test Results: 01/19/19 21:05 Blood Blood Culture - Pending 01/19/19 21:05 Blood Blood Culture - Pending Critical Care Time Critical Care Time: Yes Total Critical Care Time: 40 Attestation: I spent greater than 40 minutes addressing this patient's immediate life threats
[2019-01-19] MEDS: Albuterol/Ipratropium 3 ML UPD VIAL (21:36)
[2019-01-19 21:38] LABS: ALT 32 U/L (12-78); AST 17 U/L (15-37); Albumin 3.2 g/dL (3.4-5.0); Alkaline Phosphatase 82 U/L (46-116); BUN 17 mg/dL (7-18); Bilirubin, Total 0.6 mg/dL (0.2-1.0); CREATININE 1.46 mg/dL (0.55-1.02); Calcium 8.6 mg/dL (8.5-10.1); Chloride 101 mmol/L (98-107); Estimated GFR 35.73 (mL/min/1.73m2); Glucose 303 mg/dL (70-100); Potassium 3.5 mmol/L (3.5-5.1); Sodium 139 mmol/L (136-145); Total Protein 6.8 g/dL (6.4-8.2)
[2019-01-19] MEDS: levoFLOXacin 750 MG/150 ML BAG 100 MG IVPB (21:41)
[2019-01-19 21:55] LABS: NT-proBNP 167 pg/mL
[2019-01-19 21:56] LABS: Troponin I < 0.02 ng/mL (0.00-0.06)
--- NOTE | 2019-01-19 22:32 | DI.VRAD_ITS ---
EXAM: XR Chest, 2 Views EXAM DATE/TIME: 01/19/2019 9:06 PM CLINICAL HISTORY: 68 years old, female; Signs and symptoms; Cough and shortness of breath; Patient HX: PT very SOB, with cough TECHNIQUE: Imaging protocol: XR of the chest, 2 views. COMPARISON: CR XR CHEST 2V PA LATERAL 01/18/2019 11:50 AM CR - XR CHEST 2V PA LATERAL 09/06/2018 10:38:21 AM FINDINGS: Lungs: Lung volumes are slightly low. Bilateral diffuse interstitial opacities are present, primarily involving the central perihilar regions, similar to comparison. No new focal consolidation is seen. Pleural space: Unremarkable. No pleural effusion. No pneumothorax. Heart/Mediastinum: Unremarkable. No cardiomegaly. Bones/joints: Unremarkable. IMPRESSION: Similar bilateral interstitial opacities. No new focal consolidation. Dictated and Authenticated by: Bryan Nazario MD. Ordering:REBECCA Bah MD
[2019-01-19] MEDS: Albuterol 2.5 MG/3 ML INH SOLN VIAL UPD (22:35)
[2019-01-19] MEDS: Lactated Ringers 1,000 ML 1000 ML IV (23:29)
[2019-01-20] VITALS (145 sets, daily range): BP systolic 89–130; BP diastolic 41–98; PULSE 87–122; RESP 4–31; TEMP 35.7–37.1; O2SAT 80–99
[2019-01-20 01:22] LABS: Lactate-non-spesis 4.7 mmol/l (0.6-1.4)
[2019-01-20] MEDS: Lactated Ringers 1,000 ML 100 ML IV (01:25)
--- NOTE | 2019-01-20 01:31 | HPE_ITS ---
Date of service: 01/20/19 Time of Service: 01:18 Assessment and Plan (1) Acute pneumonitis: Current visit: Yes Status: Acute Blood cultures have been obtained and patient has been started on Levaquin. I have also ordered studies for mycoplasma and legionella and urine for Strep antigen. Influenza screen was not done initially but I have ordered this as well. I am going to add Vancomycin and add Zosyn as it appears that she is getting septic. She did well w/ BIPAP and has improved aeration w/ bronchodilators and has weaned off her BIPAP to nasal cannula. I have continued parenteral corticosteroids including hydrocortisone 50 mg IV q6h and scheduled bronchodilators. (2) Sepsis: Current visit: Yes Status: Acute She meets criteria for sepsis. So far she has not required vasopressors. I have continued her iv fluids and broadened her antibiotic coverage and she has been started on hydrocortisone per guidelines from Surviving Sepsis. (3) Acute kidney injury (nontraumatic): Current visit: Yes Status: Acute continue iv fluids, monitor urine output, maintain hemodynamics; if necessary add vasopressors if she becomes hypotensive (4) Type II diabetes mellitus, uncontrolled: Current visit: No Status: Chronic glucose has been running high. Was 300 on admission and per patient has gone as high as 500 recently. I have put her on insulin drip per [facility] protocol while we treat her sepsis and pneumonitis w/ corticosteroids (5) Essential hypertension: Current visit: No Status: Chronic blood pressure have been on lower side. losartan on hold until she is stabilized History of Present Illness Chief Complaint: shortness of breath and wheezing Narrative: 68 yr old female w/ PMH of COPD on home oxygen at 2 LPM, who presented to her PCP (Dr. Mario Garcia) on Wednesday 01/17 w/ 3 wks of worsening dry cough, wheezing and dyspnea but no fevers. Patient has become dyspneic at rest and required sleeping upright. Dr. Garcia ordered CXR and prescribed Augmentin and Azithromycin. Patient was on a prednisone taper of 5 mg daily when her symptoms began. Her prednisone was increased to 20 mg daily. CXR on Monday was reported as showing stable bilateral interstitial infiltrates that were felt to be chronic and no change was noted compared to prior CXR from 09/06/2018. Today she presents to the ER in acute respiratory distress w/ tachypnea, tachycardia and hypoxemia and was felt to be in critical condition on arrival. She was noted to have severe wheezing and use of her accessory muscles. Workup in the ER included routine labs and CXR. Again the CXR demonstrated bilateral increased interstitial infiltrates similar to Monday's CXR. Her labs were remarkable for normal WBC of 8200 but elevated lactate of 4.0, elevated glucose of 303 and azotemia w/ creatinine of 1.46 (baseline is 1.16). Electrolytes, LFT's, troponin and BNP were all normal. EKG demonstrated sinus tachycardia w/out ischemic changes. Treatment in the ER included multiple DuoNeb and albuterol aerosol treatments and iv corticosteroids (solumedrol 125 mg) and Levaquin 750 mg IV. Patient was placed on BIPAP and admitted to the ICU. Review of Systems Constitutional Reports chills and Reports fever(s) Cardiovascular Reports chest pain (with prolonged coughing), Reports dyspnea, Reports dyspnea on exertion (now dyspneic at rest) and Reports orthopnea Respiratory Reports change in phlegm color (yellow to green coloration), Reports chest congestion, Reports cough, Denies hemoptysis, Reports excessive phlegm production, Reports pain with cough, Reports dyspnea and Reports dyspnea on exertion (now dyspneic at rest) Gastrointestinal Reports abdominal pain (secondary to coughing), Denies nausea and Denies vomiting Genitourinary Reports system reviewed and no additional complaints, except as [facility] Musculoskeletal Reports system reviewed and no additional complaints, except as [facility] Integumentary/Breasts Reports system reviewed and no additional complaints, except as [facility] Neurologic Reports system reviewed and no additional complaints, except as [facility] Endocrine Reports system reviewed and no additional complaints, except as [facility] Hematologic/Lymphatic Reports system reviewed and no additional complaints, except as [facility] Allergic/Immunologic Reports system reviewed and no additional complaints, except as [facility] Medical History Internal derangement of right knee (Chronic) Back pain (Chronic) Asthma (Chronic) Osteoporosis (Chronic 03/16/18) Neck pain (Chronic 03/16/18) Migraine (Chronic 04/03/14) Long-term use of high-risk medication (Chronic 03/16/18) Interstitial lung disease (Chronic 03/16/18) History of shingles (Resolved 03/16/18) Gastroesophageal reflux disease without esophagitis (Chronic 03/16/18) Essential hypertension (Chronic 07/17/13) Edema (Chronic 03/16/18) Dyspnea (Chronic 03/16/18) Depressive disorder (Chronic) Cubital tunnel syndrome (Resolved 03/16/18) Cognitive impairment (Chronic 03/16/18) Chronic constipation (Chronic 03/16/18) Anxiety (Chronic 03/16/18) Acute gastroenteritis (Resolved 03/16/18) Umbilical hernia (Chronic) Type II diabetes mellitus, uncontrolled (Chronic) Total urinary incontinence (Chronic) Shoulder pain (Chronic) Post herpetic neuralgia (Chronic 03/16/18) Peripheral neuralgia (Chronic) 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) Hyperlipemia (Acute) Asthma (Chronic) Insulin dependent diabetes mellitus (Chronic) Surgical History Appendectomy Arthroscopy, Shoulder Bilateral salpingectomy with oophorectomy section Cholecystectomy Ligation of fallopian tube Thoracoscopic (R)Lung Bx (02/12/18) Family History Mother Diabetes Essential hypertension CHF (congestive heart failure) Heart disease Father Diabetes Essential hypertension CAD (coronary artery disease) Heart disease Hyperlipidemia Stroke Sister Diabetes Personal history of malignant neoplasm Asthma Brother Diabetes Essential hypertension Personal history of malignant neoplasm Hyperlipidemia Asthma Social History Smoking/Tobacco Use Status: Never Alcohol Intake: never Details: monthly or less Drug use: Never Substance use type: does not use Adopted: No Caregiver/Support person: No Foster care: No Household members: other Details: grandson Housing: apartment Number of Children: 2 current occupation: disabled What type of physical activity do you participate in: none Duration: 15-30 minutes/day Frequency: daily Drive intox or ride w/intox 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: No Water heater temp set <120 deg: Yes Working smoke detector in home: Yes Fire extinguisher in home: Yes Carbon monox detector in home: Yes Do you feel safe in your relationship?: Yes Meds Home Medications Medication Instructions Recorded Confirmed Type albuterol sulfate [Ventolin HFA] 2 puff INHALATION Q4H PRN #1 10/09/14 01/19/19 History inhaler simvastatin 1 tab PO HS #90 tab 10/09/14 01/19/19 History lancets #400 ea 12/02/14 01/18/19 History escitalopram oxalate 10 mg PO .NOON tab-cap 03/22/18 01/19/19 History pantoprazole 40 mg PO DAILY tab-cap 03/22/18 01/19/19 History Blood Glucose Test #400 strip 03/23/18 01/18/19 History pen needle, diabetic [Pen Needle] #4 box 03/23/18 01/18/19 Rx epinephrine [EpiPen 2-Gordon] 0.3 mg IM ONCE #1 pack 05/07/18 01/19/19 Rx Blister Gordon 05/25/18 01/18/19 Clinic Varicella-Zoster Ge/As01b/Pf 50 mcg IM ONCE #1 kit 06/08/18 01/18/19 Clinic [Shingrix Vial Kit] losartan 25 mg tablet 25 mg PO BID 39 Days #60 tab-cap 07/09/18 01/19/19 Rx bisacodyl 5 mg tablet,delayed 5 mg PO DAILY #30 tab-cap 08/03/18 01/19/19 Rx release donepezil 5 mg disintegrating 5 mg PO DAILY #30 tab-cap 08/03/18 01/19/19 Rx tablet glimepiride 4 mg tablet 4 mg PO BID #60 tab-cap 08/03/18 01/19/19 Rx acetaminophen [Tylenol Extra 1,000 mg PO Q6H PRN 08/06/18 01/19/19 History Strength] cyclobenzaprine 5 mg tablet 5 mg PO TID PRN #42 tab-cap 09/06/18 01/19/19 Rx fluticasone furoate 200 1 inh IH DAILY #60 each 09/06/18 01/19/19 Rx mcg-vilanterol 25 mcg/dose inhalation powder compression stocking,knee #2 each 10/29/18 01/18/19 Rx high,regular,large circumfer. albuterol sulfate 2.5 mg/3 mL 2.5 mg INHALATION Q6H PRN #10 vial 11/09/18 01/19/19 Rx (0.083 %) solution for nebulization benzonatate 100 mg capsule 100 mg PO QID PRN #60 cap 11/12/18 01/19/19 Rx Oxygen #1 each 11/29/18 01/18/19 History furosemide 20 mg tablet 20 mg PO BID PRN #180 tab 11/30/18 01/19/19 Rx linagliptin 5 mg tablet 5 mg PO DAILY #30 tab 12/18/18 01/19/19 Rx insulin glargine (U-100) 100 70 unit SC DAILY #15 ml 01/02/19 01/19/19 Rx unit/mL (3 mL) subcutaneous pen insulin lispro (U- 100) 100 See Rx Instructions SUBCUT as 01/02/19 01/19/19 Rx unit/mL subcutaneous pen directed 30 Days #15 ml amoxicillin 875 mg-potassium 1 tab PO BID 7 Days #14 tab 01/18/19 01/19/19 Rx clavulanate 125 mg tablet azithromycin 250 mg tablet See Rx Instructions PO .COMPLEX #6 01/18/19 01/19/19 Rx tab prednisone 20 mg tablet 20 mg PO DAILY #7 tab 01/18/19 01/19/19 Rx Allergies Allergy/AdvReac Type Severity Reaction Status Date / Time aspirin Allergy Unknown HIVES, Verified 01/19/19 21:05 flip out diclofenac Allergy Unknown RASH Verified 01/19/19 21:05 latex Allergy Unknown SKIN Verified 01/19/19 21:05 BREAKDOWN NSAIDS (Non-Steroidal Allergy Unknown HIVES, Verified 01/19/19 21:05 Anti-Inflamma VOMITING morphine AdvReac Unknown VOMITING Verified 01/19/19 21:05 Exam Const General: cooperative, no acute distress and ill appearing acutely Nutritional Appearance: overweight Orientation: alert, awake and oriented x3 HENMT Head: normal to inspection, normocephalic and atraumatic Ears: hearing grossly normal bilaterally General nose exam: external nose normal and nares normal Face and sinus: normal facial exam Neck Neck: normal visual inspection, full ROM, no lymphadenopathy, trachea midline and no JVD Carotids: normal carotid upstroke Resp Effort & Inspection: tachypneic and no use of accessory muscles Auscultation: wheezes scattered wheezes Cardio Jugular venous pressure: no JVD Palpation: normal PMI Rate: regular rate Rhythm: regular rhythm Bruits: no carotid bruits Pulses: normal peripheral pulses GI Inspection: obesity Palpation: soft, no hepatosplenomegaly and nontender Percussion: normal to percussion Auscultation: normal bowel sounds Skin General skin exam: no rashes or lesions noted, elasticity normal and turgor normal Neuro General: alert, awake, oriented x3, moves all extremities and no focal motor deficits Cognition: normal cognition Speech: speech normal Motor: muscle tone normal throughout and no movement abnormalities noted Sensory Exam: no sensory deficits noted Extrem General: normal to inspection, full ROM, no joint enlargement and no clubbing, cyanosis or edema Psych Appearance: grossly normal and well kempt Mental Status: mental status grossly normal Speech and Movement: speech and movement normal Mood: congruent mood Affect: normal affect Attitude: cooperative Thought Process: normal Thought Content: normal Insight: insight good Judgment: judgment good Results Imaging Chest x-ray: report reviewed (FINDINGS: Lungs: Lung volumes are slightly low. Bilateral diffuse interstitial opacities are present, primarily involving the central perihilar regions, similar to comparison. No new focal consolidation is seen. Pleural space: Unremarkable. No pleural effusion. No pneumothorax. Heart/Medias) and image reviewed Labs : 01/20/19 05:37 01/20/19 05:37 Laboratory Results - last 24 hr 01/19/19 01/19/19 01/19/19 21:05 21:05 21:05 WBC 8.22 RBC 4.29 Hgb 13.0 Hct 39.5 MCV 92.1 MCH 30.3 MCHC 32.9 RDW 15.4 H Plt Count 212 MPV 10.2 Immature Gran % 0.7 Neutrophils % 72.6 Lymphocytes % 21.3 Monocytes % 4.7 Eosinophils % 0.5 Basophils % 0.2 Absolute Neutrophils 5.96 Absolute Lymphocytes 1.75 Absolute Monocytes 0.39 Absolute Eosinophils 0.04 Absolute Basophils 0.02 Sodium 139 Potassium 3.5 Chloride 101 Carbon Dioxide 25.0 Anion Gap 13.0 H BUN 17 Creatinine 1.46 H Estimated GFR/1.73 m2 35.73 Glucose 303 H Lactate 4.0 H* Calcium 8.6 Total Bilirubin 0.6 AST 17 ALT 32 Alkaline Phosphatase 82 Troponin I NT-Pro-B Natriuret Pep Total Protein 6.8 Albumin 3.2 L 01/19/19 21:05 WBC RBC Hgb Hct MCV MCH MCHC RDW Plt Count MPV Immature Gran % Neutrophils % Lymphocytes % Monocytes % Eosinophils % Basophils % Absolute Neutrophils Absolute Lymphocytes Absolute Monocytes Absolute Eosinophils Absolute Basophils Sodium Potassium Chloride Carbon Dioxide Anion Gap BUN Creatinine Estimated GFR/1.73 m2 Glucose Lactate Calcium Total Bilirubin AST ALT Alkaline Phosphatase Troponin I < 0.02 NT-Pro-B Natriuret Pep 167 Total Protein Albumin Last Vital Signs Temp 36.3 C L 01/19/19 21:00 Pulse 112 H 01/20/19 00:06 Resp 19 01/20/19 00:06 BP 111/72 01/20/19 00:01 Pulse Ox 97 01/20/19 00:06
[2019-01-20] MEDS: Insulin Aspart 300 UNITS/3 ML PEN SC (01:45)
[2019-01-20] MEDS: Normal Saline Flush 10 ML SYR IVP ×2 (02:05→19:56)
[2019-01-20] MEDS: Albuterol/Ipratropium 3 ML UPD VIAL UPD ×6 (02:06→19:56)
[2019-01-20] MEDS: Hydrocortisone SOD SUC. 100 MG VIAL 50 MG IVP ×4 (02:13→19:56)
[2019-01-20 05:53] LABS: Lactate-non-spesis 4.1 mmol/l (0.6-1.4)
[2019-01-20 05:57] LABS: Abs Immature Grans 0.02 k/cumm (0.0-0.09); Absolute Basophil Count 0.01 k/cumm (0.0-0.2); Absolute Lymphocyte Count 0.29 k/cumm (1.2-3.4); Absolute Monocyte Count 0.11 k/cumm (0.11-0.7); Absolute Neutrophil Count 6.34 k/cumm (1.2-6.7); Basophils % 0.1; HCT 35.1 % (36.0-46.0); HGB 11.2 g/dL (12.0-15.5); Immature Grans % 0.3; Lymphocytes % 4.3; Mean Corp. HGB Concentration 31.9 g/dL (32.0-36.0); Mean Corpuscular Hemoglobin 29.7 pg (27.0-33.0); Mean Corpuscular Volume 93.1 fL (80-95); Mean Platelet Volume 10.4 fL (8.0-11.0); Monocytes % 1.6; Neutrophils % 93.7; Platelet Count 195 x1000/uL (130-400); RBC 3.77 m/cumm (4.00-5.20); RBC Distribution Width 15.2 % (11.7-14.6); White Blood Cell Count 6.77 k/cumm (4.4-10.8)
[2019-01-20 06:18] LABS: ALT 28 U/L (12-78); AST 15 U/L (15-37); Albumin 2.6 g/dL (3.4-5.0); Alkaline Phosphatase 67 U/L (46-116); Anion Gap 15.8 mmol/L (3-11); BUN 19 mg/dL (7-18); Bilirubin, Total 0.5 mg/dL (0.2-1.0); CO2 21.2 mmol/L (21.0-32.0); CREATININE 1.52 mg/dL (0.55-1.02); Calcium 8.3 mg/dL (8.5-10.1); Chloride 99 mmol/L (98-107); Estimated GFR 34.11 (mL/min/1.73m2); Sodium 136 mmol/L (136-145)
[2019-01-20 06:25] LABS: Glucose 543 mg/dL (70-100)
[2019-01-20] MEDS: DEXTROSE 5%-LACTATED RINGERS 1,000 ML 100 ML IV (07:03)
--- NOTE | 2019-01-20 07:33 | PDOC.CMIN ---
- If Service Date Differs Date of service: 01/20/19 Time of Service: 07:33 Care Management Initial Assess REASON FOR HOSPITALIZATION:: Acute pneumonitis PAST MEDICAL HISTORY/PAST SURGICAL HISTORY:: Internal derangement of right knee (Chronic). Back pain (Chronic). Asthma (Chronic). Osteoporosis (Chronic 03/16/18). Neck pain (Chronic 03/16/18). Migraine (Chronic 04/03/14). Long-term use of high-risk medication (Chronic 03/16/18). Interstitial lung disease (Chronic 03/16/18). History of shingles (Resolved 03/16/18). Gastroesophageal reflux disease without esophagitis (Chronic 03/16/18). Essential hypertension (Chronic 07/17/13). Edema (Chronic 03/16/18). Dyspnea (Chronic 03/16/18). Depressive disorder (Chronic). Cubital tunnel syndrome (Resolved 03/16/18). Cognitive impairment (Chronic 03/16/18). Chronic constipation (Chronic 03/16/18). Anxiety (Chronic 03/16/18). Acute gastroenteritis (Resolved 03/16/18). Umbilical hernia (Chronic). Type II diabetes mellitus, uncontrolled (Chronic). Total urinary incontinence (Chronic). Shoulder pain (Chronic). Post herpetic neuralgia (Chronic 03/16/18). Peripheral neuralgia (Chronic). 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 Hyperlipemia (Acute). Asthma (Chronic). Insulin dependent diabetes mellitus (Chronic). Appendectomy. Arthroscopy, Shoulder. Bilateral salpingectomy with oophorectomy. section. Cholecystectomy. Ligation of fallopian tube. Thoracoscopic (R)Lung Bx (02/12/18) PREVIOUS FUNCTIONAL STATUS/SOCIAL/FAMILY SUPPORTS:: Elly resides alone in [facility]. She reports multiple family members locally including her brother Brian whom she states she shares a car with. Her son Himanshu and grandchildren are local as well and all supportive per her report. Elly states that she drives at baseline, though since she shares a car with her brother she does not always have a car to drive, therefore uses RCT as well. CURRENT FUNCTIONAL STATUS:: Currently Elly is lying in bed when this board writer visits. She is pleasant and receptive to discussion. ADVANCE DIRECTIVES:: reports that the DPOA on file is inaccurate andt hat her son Himanshu is DPOA. Elly states that this will be brought in. Has patient been provided with information about the portal?: Yes Did the patient sign up for the portal?: No (already signed up) CODE STATUS:: Full Code INSURANCE COVERAGE / FINANCIAL ISSUES:: [facility], [facility], [facility] CURRENT HOME/COMMUNITY SERVICES/EQUIPMENT:: Currently Elly has no services or medical equipment in the community. PRIMARY CARE PHYSICIAN:: Dr. Garcia POTENTIAL DISCHARGE NEEDS:: F/U appointment with PCP PATIENT/FAMILY EDUCATION NEEDS:: Review DC instructions, any limitations, and ongoing DC planning discussion. Discuss 'Ask Me Three' ANTICIPATED BARRIERS TO DISCHARGE:: None identified at this time. TRANSPORTATION:: Via private vehicle with brother Brian PLAN:: Elly will return home with no anticipated services, she will F/U with PCP and plan of care as prescribed. Her brother Brian will transport when ready.
--- NOTE | 2019-01-20 07:45 | INITIAL_ITS ---
- If Service Date Differs Date of service: 01/20/19 Time of Service: 07:33 Care Management Initial Assess REASON FOR HOSPITALIZATION:: Acute pneumonitis PAST MEDICAL HISTORY/PAST SURGICAL HISTORY:: Internal derangement of right knee (Chronic). Back pain (Chronic). Asthma (Chronic). Osteoporosis (Chronic 03/16/18). Neck pain (Chronic 03/16/18). Migraine (Chronic 04/03/14). Long- term use of high-risk medication (Chronic 03/16/18). Interstitial lung disease (Chronic 03/16/18). History of shingles (Resolved 03/16/18). Gastroesophageal reflux disease without esophagitis (Chronic 03/16/18). Essential hypertension (Chronic 07/17/13). Edema (Chronic 03/16/18). Dyspnea (Chronic 03/16/18). Depressive disorder (Chronic). Cubital tunnel syndrome (Resolved 03/16/18). Cognitive impairment (Chronic 03/16/18). Chronic constipation (Chronic ). Anxiety (Chronic 03/16/18). Acute gastroenteritis (Resolved 03/16/18). Umbilical hernia (Chronic). Type II diabetes mellitus, uncontrolled (Chronic). Total urinary incontinence (Chronic). Shoulder pain (Chronic). Post herpetic neuralgia (Chronic 03/16/18). Peripheral neuralgia (Chronic). 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 Hyperlipemia (Acute). Asthma (Chronic). Insulin dependent diabetes mellitus (Chronic). Appendectomy. Arthroscopy, Shoulder. Bilateral salpingectomy with oophorectomy. section. Cholecystectomy. Ligation of fallopian tube. Thoracoscopic (R)Lung Bx (02/12/18) PREVIOUS FUNCTIONAL STATUS/SOCIAL/FAMILY SUPPORTS:: Elly resides alone in [facility]. She reports multiple family members locally including her brother Brian whom she states she shares a car with. Her son Himanshu and grandchildren are local as well and all supportive per her report. Elly states that she drives at baseline, though since she shares a car with her brother she does not always have a car to drive, therefore uses RCT as well. CURRENT FUNCTIONAL STATUS:: Currently Elly is lying in bed when this technical writer and editor visits. She is pleasant and receptive to discussion. ADVANCE DIRECTIVES:: reports that the DPOA on file is inaccurate andt hat her son Himanshu is DPOA. Elly states that this will be brought in. Has patient been provided with information about the portal?: Yes Did the patient sign up for the portal?: No (already signed up) CODE STATUS:: Full Code INSURANCE COVERAGE / FINANCIAL ISSUES:: [facility], [facility], [facility] CURRENT HOME/COMMUNITY SERVICES/EQUIPMENT:: Currently Elly has no services or medical equipment in the community. PRIMARY CARE PHYSICIAN:: Dr. Garcia POTENTIAL DISCHARGE NEEDS:: F/U appointment with PCP PATIENT/FAMILY EDUCATION NEEDS:: Review DC instructions, any limitations, and ongoing DC planning discussion. Discuss 'Ask Me Three' ANTICIPATED BARRIERS TO DISCHARGE:: None identified at this time. TRANSPORTATION:: Via private vehicle with brother Brian PLAN:: Elly will return home with no anticipated services, she will F/U with PCP and plan of care as prescribed. Her brother Brian will transport when ready.
--- NOTE | 2019-01-20 08:01 | HOME_ITS ---
Home Oxygen Equipment: Home care [employer] Home oxygen qualifier: Qualifying SaO2: Date: LPM: 2 Useage (hours/day) 24 Portability: Y Comments:
[2019-01-20] MEDS: Benzonatate 200 MG CAP PO ×3 (08:38→19:56)
[2019-01-20] MEDS: Pantoprazole 20 MG TABCR 40 MG PO (08:38)
[2019-01-20] MEDS: Enoxaparin 40 MG/0.4 ML SYR SC (08:38)
[2019-01-20] MEDS: guaiFENesin 600 MG TABCR 1200 MG PO ×2 (08:39→19:56)
[2019-01-20] MEDS: Bisacodyl 5 MG TABEC PO (08:39)
[2019-01-20] MEDS: PIPERACILLIN/TAZO 3.375 GM in Normal Saline 50 ML IVPB ×3 (08:40→23:32)
[2019-01-20] MEDS: Ketoconazole 2% CREAM 15 GM TUBE TP ×2 (08:42→19:57)
[2019-01-20] MEDS: VANCOMYCIN 750 MG in Normal Saline 250 ML 166.667 MG IVPB (10:35)
--- NOTE | 2019-01-20 11:55 | PGE_ITS ---
Date of Service Date of service: 01/20/19 Time of Service: 11:54 Assessment and Plan (1) Sepsis: Current visit: Yes Status: Acute Sepsis on the basis of hypothermia, tachycardia, tachypnea, plus clinically suspected pulmonary source, although CXR is not supportive. Patient also has evidence of endorgan dysfunction with grossly elevated lactic acid, hypotension, and evidence of acute kidney injury although with a creatinine that is not > 2. Continue current broad-spectrum antibiotics with day#1 vancomycin, PIP-Tazo, and renally dose Levofloxacin, and await blood and sputum culture results Will continue noninvasive ventilation with BiPAP as needed, although appears to be improved and off BiPAP this morning. Continue stress dose steroids, DuoNebs. Rapid flu ordered and pending at this time. Monitor blood pressure carefully, and for now continue IV fluids. (2) Acute kidney injury (nontraumatic): Current visit: Yes Status: Acute May be prerenal in etiology in the setting of acute illness, potential dehydration, and poor perfusion. Continue IV fluids, maintain hemodynamics, avoid nephrotoxins, and renally dose medications. Hold ARB. (3) Type II diabetes mellitus, uncontrolled: Current visit: No Status: Chronic Significant hyperglycemia in the setting of infection and steroids. Currently on insulin drip with D5 lactated ringer, and essentially half dose of her basal insulin. Will monitor blood sugars carefully and adjust insulin as appropriate. (4) Essential hypertension: Current visit: No Status: Chronic Currently hypotensive. Continue IV fluids, and hold ARB. (5) DVT prophylaxis: Current visit: Yes Status: Acute SC Lovenox. (6) Advance directive on file: Current visit: Yes Status: Acute Full code. Subjective Interval history since last seen: 68 yea old woman with a prior history significant for COPD, admitted from [facility] Emergency Department with a diagnosis of Pneumonia and Sepsis. Mrs. Pina has a past medical history significant for COPD on 2L home O2, Obesity, Osteoporosis, HTN, Depression, and anxiety. She also has documented Cognitive Impairment, as well as Insulin Dependent DM. She initially presented to her PCP's office (Dr. Mario Garcia) on Wednesday 01/17 with a reported 3 week history of worsening cough, wheezing and dyspnea without subjective fevers. Her subsequent CXR showed stable bilateral infiltrates, deemed likely chronic, and overall unchanged. She was initiated on combination of Augmentin and Azithromycin, as well as an increase in her previously prescribed prednisone taper. Despite this the patient failed to improve, and presented to the ED with reported worsening symptoms. Work-up revealed patient to be in acute respiratory distress with noted tachypnea, tachycardia, hypoxia, and hypotension, with significant elevation in Lactate and SYD by labwork. Her repeat CXR was unchanged. She was admitted to the ICU for further evaluation and care. Since her initial presentation Mrs. Pina appears slightly improved, and is now off BiPAP therapy. Her lactate remains grossly elevated and essentially unc hanged. She remains afebrile. Exam Narrative Exam Narrative: General: Patient appears ill but not toxic, AAOX3 Neck: Supple CV: Regular, tachycardic, S1S2, No rubs, murmurs, or gallops. Pulmonary: diffuse wheezing noted Abdomen: + Bowel Sounds, soft, nontender, nondistended, obese in contour Vascular: No lower extremity edema Psych: Normal mood and affect. Objective Objective Clinical Data: Abnormal lab results 01/19/19 01/19/19 01/19/19 Range/Units 21:05 21:05 21:05 RBC (4.00-5.20) m/cumm Hgb (12.0-15.5) g/dL Hct (36.0-46.0) % MCHC (32.0-36.0) g/dL RDW 15.4 H (11.7-14.6) % Absolute Lymphocytes (1.2-3.4) k/cumm Anion Gap 13.0 H (3-11) mmol/L BUN (7-18) mg/dL Creatinine 1.46 H (0.55-1.02) mg/dL Glucose 303 H (70-100) mg/dL Lactate 4.0 H* (0.6-1.4) mmol/L Calcium (8.5-10.1) mg/dL Total Protein (6.4-8.2) g/dL Albumin 3.2 L (3.4-5.0) g/dL 01/20/19 01/20/19 01/20/19 Range/Units 01:15 05:37 05:37 RBC 3.77 L (4.00-5.20) m/cumm Hgb 11.2 L (12.0-15.5) g/dL Hct 35.1 L (36.0-46.0) % MCHC 31.9 L (32.0-36.0) g/dL RDW 15.2 H (11.7-14.6) % Absolute Lymphocytes 0.29 L (1.2-3.4) k/cumm Anion Gap 15.8 H (3-11) mmol/L BUN 19 H (7-18) mg/dL Creatinine 1.52 H (0.55-1.02) mg/dL Glucose 543 H* D (70-100) mg/dL Lactate 4.7 H (0.6-1.4) mmol/L Calcium 8.3 L (8.5-10.1) mg/dL Total Protein 6.0 L (6.4-8.2) g/dL Albumin 2.6 L (3.4-5.0) g/dL 01/20/19 Range/Units 05:37 RBC (4.00-5.20) m/cumm Hgb (12.0-15.5) g/dL Hct (36.0-46.0) % MCHC (32.0-36.0) g/dL RDW (11.7-14.6) % Absolute Lymphocytes (1.2-3.4) k/cumm Anion Gap (3-11) mmol/L BUN (7-18) mg/dL Creatinine (0.55-1.02) mg/dL Glucose (70-100) mg/dL Lactate 4.1 H (0.6-1.4) mmol/L Calcium (8.5-10.1) mg/dL Total Protein (6.4-8.2) g/dL Albumin (3.4-5.0) g/dL Vital Signs Temperature 35.7 C L 01/20/19 09:20 Temperature Source Temporal Artery Scan 01/20/19 09:20 Pulse 111 H 01/20/19 09:31 Pulse 108 H 01/20/19 09:40 Respiratory Rate 24 01/20/19 10:00 Respiratory Effort 01/20/19 10:00 Respiratory Depth Normal 01/20/19 10:00 Respiratory Pattern Tachypnea 01/20/19 10:00 Blood Pressure 109/89 01/20/19 09:31 Blood Pressure Mean 92 01/20/19 09:31 Pulse Oximetry 96 01/20/19 09:40 Oxygen Delivery Method Nasal Cannula 01/20/19 10:00 Oxygen Flow Rate 3.5 01/20/19 10:00 Fraction of Inspired Oxygen (FIO2) 25 01/20/19 08:01 Pain Level 0 01/20/19 10:00 Intake & Output 01/19/19 01/19/19 01/20/19 11:59 23:59 11:59 Intake Total 150 / 150 43.008 / 43.008 Output Total 650 / 650 Balance 150 / 150 -606.992 / -606.992 Weight 92.5 kg 92.1 kg Intake: IV 150 / 150 43.008 / 43.008 Output: Urine 650 / 650 Other: Urine Color Yellow Urine Appearance Clear Comment FC Laboratory Results WBC 6.77 k/cumm (4.4-10.8) 01/20/19 05:37 RBC 3.77 m/cumm (4.00-5.20) L 01/20/19 05:37 Hgb 11.2 g/dL (12.0-15.5) L 01/20/19 05:37 Hct 35.1 % (36.0-46.0) L 01/20/19 05:37 MCV 93.1 fL (80-95) 01/20/19 05:37 MCH 29.7 pg (27.0-33.0) 01/20/19 05:37 MCHC 31.9 g/dL (32.0-36.0) L 01/20/19 05:37 RDW 15.2 % (11.7-14.6) H 01/20/19 05:37 Plt Count 195 x1000/uL (130-400) 01/20/19 05:37 MPV 10.4 fL (8.0-11.0) 01/20/19 05:37 Immature Gran % 0.3 01/20/19 05:37 Neutrophils % 93.7 01/20/19 05:37 Lymphocytes % 4.3 01/20/19 05:37 Monocytes % 1.6 01/20/19 05:37 Eosinophils % 0.0 01/20/19 05:37 Basophils % 0.1 01/20/19 05:37 Absolute Neutrophils 6.34 k/cumm (1.2-6.7) 01/20/19 05:37 Absolute Lymphocytes 0.29 k/cumm (1.2-3.4) L 01/20/19 05:37 Absolute Monocytes 0.11 k/cumm (0.11-0.7) 01/20/19 05:37 Absolute Eosinophils 0.00 k/cumm (0.0-0.7) 01/20/19 05:37 Absolute Basophils 0.01 k/cumm (0.0-0.2) 01/20/19 05:37 Sodium 136 mmol/L (136-145) 01/20/19 05:37 Potassium 4.0 mmol/L (3.5-5.1) 01/20/19 05:37 Chloride 99 mmol/L (98-107) 01/20/19 05:37 Carbon Dioxide 21.2 mmol/L (21.0-32.0) 01/20/19 05:37 Anion Gap 15.8 mmol/L (3-11) H 01/20/19 05:37 BUN 19 mg/dL (7-18) H 01/20/19 05:37 Creatinine 1.52 mg/dL (0.55-1.02) H 01/20/19 05:37 Estimated GFR/1.73 m2 34.11 (mL/min/1.73m2) 01/20/19 05:37 Glucose 543 mg/dL (70-100) H* D 01/20/19 05:37 Lactate 4.1 mmol/l (0.6-1.4) H 01/20/19 05:37 Calcium 8.3 mg/dL (8.5-10.1) L 01/20/19 05:37 Total Bilirubin 0.5 mg/dL (0.2-1.0) 01/20/19 05:37 AST 15 U/L (15-37) 01/20/19 05:37 ALT 28 U/L (12-78) 01/20/19 05:37 Alkaline Phosphatase 67 U/L (46-116) 01/20/19 05:37 Troponin I < 0.02 ng/mL (0.00-0.06) 01/19/19 21:05 NT-Pro-B Natriuret Pep 167 pg/mL (-299) 01/19/19 21:05 Total Protein 6.0 g/dL (6.4-8.2) L 01/20/19 05:37 Albumin 2.6 g/dL (3.4-5.0) L 01/20/19 05:37
[2019-01-20 14:31] LABS: Bilirubin Small (Negative); Blood Large (Negative); Clarity Sl Cloudy; Glucose >=1000 mg/dL (Negative); Ketones Trace mg/dL (Negative); Leukocyte Esterase Negative (Negative); Nitrite Negative (Negative); Specific Gravity 1.025 (1.005-1.025); Urobilinogen 0.2 EU/dL (Up TO 0.2); pH 5.5 (5-8)
[2019-01-20 14:39] LABS: RBC >50 (0-2); WBC 0-2 HPF (0-5)
[2019-01-20 14:40] LABS: Bacteria Moderate HPF (Negative); Casts 0-2 Coarse Granular LPF (Negative); Crystals Rare Amorphous HPF (Negative); Epithelial Cells Few HPF (Negative); Mucus Trace (Negative)
[2019-01-20 14:41] LABS: C & S Indicated? Yes
[2019-01-20 15:09] LABS: Lactate-non-spesis 4.1 mmol/l (0.6-1.4)
[2019-01-20] MEDS: Escitalopram 10 MG TAB PO (15:49)
[2019-01-20] MEDS: Normal Saline Flush 10 ML SYR (15:50)
[2019-01-20] MEDS: Insulin Glargine 300 UNITS/3 ML PEN 70 UNITS SC (18:50)
[2019-01-20] MEDS: Normal Saline 1,000 ML 150 ML IV ×2 (19:32→19:56)
[2019-01-20] MEDS: Simvastatin 40 MG TAB PO (21:58)
[2019-01-20] MEDS: Donepezil 5 MG TAB PO (21:58)
[2019-01-21] VITALS (61 sets, daily range): BP systolic 97–128; BP diastolic 38–79; PULSE 76–131; RESP 4–30; TEMP 36–36.7; O2SAT 89–100
[2019-01-21] MEDS: Albuterol/Ipratropium 3 ML UPD VIAL UPD ×5 (01:10→22:28)
[2019-01-21] MEDS: Albuterol 2.5 MG/3 ML INH SOLN VIAL UPD (01:45)
[2019-01-21] MEDS: Hydrocortisone SOD SUC. 100 MG VIAL 50 MG IVP (01:47)
[2019-01-21] MEDS: VANCOMYCIN 750 MG in Normal Saline 250 ML 166 MG IVPB ×2 (01:48→18:22)
[2019-01-21] MEDS: Normal Saline 1,000 ML 150 ML IV (06:08)
[2019-01-21 06:14] LABS: Lactate-non-spesis 1.7 mmol/l (0.6-1.4)
[2019-01-21 06:19] LABS: Abs Immature Grans 0.03 k/cumm (0.0-0.09); Absolute Basophil Count 0.01 k/cumm (0.0-0.2); Absolute Eosinophil Count 0.03 k/cumm (0.0-0.7); Absolute Lymphocyte Count 0.98 k/cumm (1.2-3.4); Basophils % 0.1; Eosinophils % 0.3; HCT 32.7 % (36.0-46.0); HGB 10.5 g/dL (12.0-15.5); Immature Grans % 0.3; Lymphocytes % 8.6; Mean Corp. HGB Concentration 32.1 g/dL (32.0-36.0); Mean Corpuscular Hemoglobin 29.9 pg (27.0-33.0); Mean Corpuscular Volume 93.2 fL (80-95); Mean Platelet Volume 10.2 fL (8.0-11.0); Monocytes % 4.5; Neutrophils % 86.2; Platelet Count 192 x1000/uL (130-400); RBC 3.51 m/cumm (4.00-5.20); RBC Distribution Width 15.8 % (11.7-14.6); White Blood Cell Count 11.45 k/cumm (4.4-10.8)
[2019-01-21 06:23] LABS: Absolute Monocyte Count 0.52 k/cumm (0.11-0.7); Absolute Neutrophil Count 9.87 k/cumm (1.2-6.7)
[2019-01-21 06:31] LABS: Anion Gap 10.7 mmol/L (3-11); BUN 27 mg/dL (7-18); CO2 25.3 mmol/L (21.0-32.0); CREATININE 1.32 mg/dL (0.55-1.02); Calcium 8.2 mg/dL (8.5-10.1); Chloride 105 mmol/L (98-107); Estimated GFR 40.14 (mL/min/1.73m2); Glucose 356 mg/dL (70-100); Magnesium 1.9 mg/dL (1.8-2.4); Potassium 4.2 mmol/L (3.5-5.1); Sodium 141 mmol/L (136-145)
[2019-01-21] MEDS: PIPERACILLIN/TAZO 3.375 GM in Normal Saline 50 ML IVPB ×3 (09:15→23:00)
[2019-01-21] MEDS: Enoxaparin 40 MG/0.4 ML SYR SC (09:27)
[2019-01-21] MEDS: Normal Saline Flush 10 ML SYR IVP ×3 (09:28→22:31)
[2019-01-21] MEDS: methylPREDNISolone SUCC 40 MG VIAL IVP ×2 (09:28→17:33)
[2019-01-21] MEDS: Magnesium Oxide 400 MG TAB PO (09:29)
[2019-01-21] MEDS: Benzonatate 200 MG CAP PO ×4 (09:30→20:37)
[2019-01-21] MEDS: Bisacodyl 5 MG TABEC PO (09:30)
[2019-01-21] MEDS: Pantoprazole 20 MG TABCR 40 MG PO (09:30)
[2019-01-21] MEDS: guaiFENesin 600 MG TABCR 1200 MG PO ×2 (09:30→20:06)
[2019-01-21] MEDS: Insulin Aspart 300 UNITS/3 ML PEN SC ×4 (09:31→22:22)
[2019-01-21] MEDS: Ketoconazole 2% CREAM 15 GM TUBE TP ×2 (09:32→20:28)
--- NOTE | 2019-01-21 10:27 | PDOC.CMPRO ---
- If Service Date Differs Date of service: 01/21/19 Time of Service: 10:27 Care Management Progress Note S/O: Elly is lying in bed sleeping when this advertising copy writer visits. She awakens when this advertising copy writer enters the room and reports I did not have a great night. She reports coughing, and losing her breath overnight, which lead to a lack of sleep. Elly would like to rest this morning. CM to continue to offer support, no change in DC plan at this time. A: 68 y/o female admitted 01/19/19 for Pneumonia P: Elly will return home with no anticipated services. She will F/U with PCP and plan of care as prescribed. Elly reports that her brother Brian will transport her when ready.
[2019-01-21] MEDS: Escitalopram 10 MG TAB PO (11:59)
--- NOTE | 2019-01-21 14:03 | PHARADMIT ---
Addendum entered by Chel Arambula 01/28/19 16:51: Pharmacy Note Subjective abdominal pain-possible dyspepsia due to PO K+? per progress note Objective HR-94 other VS okay K+3.3 SCr-1.14(down) WBC-15.40(up) Assessment pantoprazole changed to BID po K+ given mylanta ordered PRN insulin glargine dose decreased from 55 units to 40 units QHS Plan possible discharge tomorrow pending workup for abdominal pain Addendum entered by Sarah Gamez 01/27/19 10:52: Pharmacy Note Subjective Sats 92% room air, wheezy yesterday, oxygen @ night Objective VS ok, lytes ok, BG 192 Assessment decrease Duonebs, IV Solumedrol 40mg daily No insulin adjustments at this time Remains on triple Anbx Vanco/Levaquin/Zosyn for sepsis due to CAP (day #7) Sputum samples inadequate, last Chest Xray 01/19 SCr stable, weight stable, will order Vanco trough for Monday01/28/19 @ 1700 if she's still here, won't be at steady state to order today Is on Lasix Plan ?change to oral Prednisone, repeat Chest xray, Anbx narrowing? Likely discharge Mon/ Addendum entered by Caleb Duarte III 01/24/19 15:45: Pharmacy Note Subjective MD notes patient is improving, Blood cultures no growth/96hrs Objective VS-OK Pain:01/30 SCr-1.29 K+3.3 Wgt-97.2 KG BM today Assessment IV ABX continue, IVF dc'd. K+ replaced PO. Plan Patient may be gill to transfer to Med/Surg. Addendum entered by Sarah Gamez 01/23/19 18:43: addendum #2: Vanco trough low 8.9, significant improvement in SCr, although weight is down. Increased to 1gram IV Q12h Pt has triple lumen PICC line for triple Anbx Addendum entered by Sarah Gamez 01/23/19 15:32: Addendum: wants to leave Levaquin as Q24h, SCr is at her baseline Addendum entered by Sarah Gamez 01/23/19 12:07: Pharmacy Note Subjective looked better per MD, SOB w/activity, some edema Objective Scr 1.17 (CrCl~33.5ml/min) BG 172, WBC 11.38, lytes good, VS good Assessment Levaquin day# 4 (was Q48h and changed to Q24h...but really S/B Q48h, will let MD know for CrCl<49) Zosyn day#3 Vanco day#3 Patient's own Breo Elipta not brought in, has scheduled Duonebs, IV Steroids see note below about insulins Plan possible transfer to M/S if bed needed Vanco trough 5pm today Addendum entered by Chel Arambula 01/22/19 15:45: Pharmacy Note Subjective improving per morning report Objective BP-135/48 HR-99 SCr-1.14(down) BG-244(down) Assessment -renal function improved; Crcl ~52 mL/min using adjusted body weight so levofloxacin changed from Q48 to Q24 dosing -furosemide ordered BID, insulin NPH ordered with each dose of solumedrol, lantus was discontinued, solumedrol dose increased from 40 to 60 mg Q8H -vanco dose given late this morning due to zosyn dose, continuing next dose at same time so can do a trough tomorrow -abx continue: levofloxacin (day4), vanco/zosyn (day 3) Plan vanco trough ordered for tomorrow Original Note: Admission Pharmacy Clinical Review pneumonia, COPD exacerbation Code Status Full Code Current Weight 92.1 kg Renally Cleared and Narrow Therapeutic Index Meds Crcl ~43.0 mL/min using adjusted body weight current meds okay; if renal function continues to improve will have to adjust levfloxacin dosing QTc Value / Action Taken QTc 462 has escitalopram, donepezil and levofloxacin ordered BP Control, Fever BP 124/54 afebrile Electrolytes reviewed within normal limits DVT Prophylaxis enoxaparin Opiate Usage / Scheduled Bowel Regimen Ordered no/no Plt/SCr for Heparin / Enoxaparin plt 192 SCr 1.32 INR for Warfarin n/a H/H stable, WBC/Bands h/h 10.5/32.7 wbc 11.45 Antibiotic appropriateness vanco (day 2), zosyn (day 2) and levofloxacin(day 3) Cultures and Sensitivities blood cultures no growth @24 hours urine culture pending rapid flu negative Surgical ABX d/c within 24 hr n/a DM control / Insulin Dosing BG 356 scheduled glargine and sliding scale aspart Heart Failure (Check EF%) (DAYANARA's, B-Block, Diuretics) losartan (on hold) IV to PO Switch n/a Home Meds Reviewed -linagliptin may enhance the hypoglycemic effects of glimepiride, insulin glargine and insulin lispro, watch for changes in doses/monitor blood glucose -multiple QTc prolonging agents Home Meds Not Ordered amox/clavulanate, azithromycin, cyclobenzaprine, epinephrine, furosemide, glimepiride, insulin lispro, linagliptin, prednisone, varicella-zoster Comments
[2019-01-21] MEDS: Normal Saline 1,000 ML 100 ML IV (14:45)
--- NOTE | 2019-01-21 14:55 | W.INDIABCONS ---
Date of service: 01/21/19 Time of Service: 14:56 Diabetes Inpatient Consult DESCRIPTION/ASSESSMENT: Appreciate diabetes consult for Elly Pina who is hospitalized with Pneumonia. BMI 41 A1c 11.1 She is known to outpatient DSME from the distant past. Elly manages diabetes at home with Glargine 70units, Lispro on scale stating she has been taking 24 units when blood sugar elevated; linagliptin and glimepiride. She states her blood sugars are high at home, however recently had a low blood sugar in the low 100s. SHe has not had an appetite lately. During this hospitalization blood sugars range 130-518 taking 40units now increased to 70units glargine and moderate insulin correction. She also has 40u Methylprednisolone q 8 hours which is higher than her 20mg daily at home. She is eating 50-100% of meals without carbohydrate intake identified. Elly has elevated blood sugars secondary to steroids. INTERVENTION: Elly may benefit from increase in insulin correction to resistant level as well as insulin to cover carbohydrate. Suggest 1 unit for 10 grams carbohydrate and resistant insulin correction as long as she remains on steroid treatment. PLAN: As above. Will follow blood sugars. Time Spent in Nutritional Counseling and Treatment: 10 minutes face to face inpatient
--- NOTE | 2019-01-21 17:09 | W.PM.PROGNOT ---
Date of Service Date of service: 01/21/19 Time of Service: 17:09 Assessment and Plan (1) Sepsis: Current visit: No Status: Acute Sepsis on the basis of hypothermia, tachycardia, tachypnea, plus clinically suspected pulmonary source, although CXR is not supportive. Patient also had evidence of end-organ dysfunction with grossly elevated lactic acid, hypotension, and SYD although with a creatinine that was not > 2. Appears resolved. Continue current broad-spectrum antibiotics with day#2 of vancomycin, PIP-Tazo, and renally dose Levofloxacin, and await blood and sputum culture results Will continue noninvasive ventilation with BiPAP as needed, although appears to be improved and off BiPAP this morning. Continue steroids, DuoNebs. Rapid flu checked and negative. Decrease and wean IV fluids as able. (2) Acute kidney injury (nontraumatic): Current visit: No Status: Acute May be prerenal in etiology in the setting of acute illness, potential dehydration, and poor perfusion. Current creatinine improved but not yet at baseline. Continue IV fluids, maintain hemodynamics, avoid nephrotoxins, and renally dose medications. Continue to hold ARB. (3) Type II diabetes mellitus, uncontrolled: Current visit: No Status: Chronic Significant initial hyperglycemia in the setting of infection and steroids. Insulin drip with D5 lactated ringer discontinued previously and patient resumed on home basal insulin dose, with initiated sliding scale coverage. Current blood sugars in the 300's - continue Glargine, increase to resistant ISS, and add carb counting premeal insulin as well. Will monitor blood sugars carefully and adjust insulin as appropriate. (4) Essential hypertension: Current visit: No Status: Chronic Currently hypotensive but with improved blood pressures. Continue but decrease IV fluids, and continue to hold ARB. (5) DVT prophylaxis: Current visit: No Status: Acute SC Lovenox. (6) Advance directive on file: Current visit: No Status: Acute Full code. Subjective Interval history since last seen: 68 yea old woman with a prior history significant for COPD, admitted from [facility] Emergency Department with a diagnosis of Pneumonia and Sepsis. Mrs. Pina has a past medical history significant for COPD on 2L home O2, Obesity, Osteoporosis, HTN, Depression, and anxiety. She also has documented Cognitive Impairment, as well as Insulin Dependent DM. She initially presented to her PCP's office (Dr. Mario Garcia) on Wednesday 01/17 with a reported 3 week history of worsening cough, wheezing and dyspnea without subjective fevers. Her subsequent CXR showed stable bilateral infiltrates, deemed likely chronic, and overall unchanged. She was initiated on combination of Augmentin and Azithromycin, as well as an increase in her previously prescribed prednisone taper. Despite this the patient failed to improve, and presented to the ED with reported worsening symptoms. Work-up revealed patient to be in acute respiratory distress with noted tachypnea, tachycardia, hypoxia, and hypotension, with significant elevation in Lactate and SYD by labwork. Her repeat CXR was unchanged. She was admitted to the ICU for further evaluation and care. Since her initial presentation Mrs. Pina appears improved and has remained off BiPAP therapy. Her lactate is vastly improved this morning and nearly normalized. She does however remain quite dyspneic, especially when coughing. Creatinine remains elevated but improved. Blood pressures have improved as well. No overnight events reported. She remains afebrile. Exam Narrative Exam Narrative: General: Patient appears chronically ill but not acutely ill, AAOX3 Neck: Supple CV: Regular, tachycardic, S1S2, No rubs, murmurs, or gallops. Pulmonary: diffuse wheezing again noted with slightly improved air entry Abdomen: + Bowel Sounds, soft, nontender, nondistended, obese in contour Vascular: Mild lower extremity edema Psych: Normal mood and affect. Objective Objective Clinical Data: Abnormal lab results 01/21/19 01/21/19 01/21/19 Range/Units 06:00 06:00 06:00 WBC 11.45 H D (4.4-10.8) k/cumm RBC 3.51 L (4.00-5.20) m/cumm Hgb 10.5 L (12.0-15.5) g/dL Hct 32.7 L (36.0-46.0) % RDW 15.8 H (11.7-14.6) % Absolute Neutrophils 9.87 H (1.2-6.7) k/cumm Absolute Lymphocytes 0.98 L (1.2-3.4) k/cumm BUN 27 H (7-18) mg/dL Creatinine 1.32 H (0.55-1.02) mg/dL Glucose 356 H D (70-100) mg/dL Lactate 1.7 H (0.6-1.4) mmol/l Calcium 8.2 L (8.5-10.1) mg/dL Vital Signs Temperature 36.4 C L 01/21/19 08:54 Temperature Source Temporal Artery Scan 01/21/19 08:54 Pulse 93 H 01/21/19 15:00 Pulse 92 H 01/21/19 15:00 Respiratory Rate 29 H 01/21/19 15:00 Respiratory Effort 01/21/19 08:54 Respiratory Depth Normal 01/21/19 08:54 Respiratory Pattern Normal 01/21/19 08:54 Blood Pressure 120/45 L 01/21/19 15:00 Blood Pressure Mean 62 01/21/19 15:00 Blood Pressure Position Supine 01/21/19 08:54 Pulse Oximetry 93 L 01/21/19 15:00 Oxygen Delivery Method Nasal Cannula 01/21/19 08:54 Oxygen Flow Rate 1 01/21/19 08:54 Fraction of Inspired Oxygen (FIO2) 25 01/20/19 13:25 Pain Level 0 01/21/19 08:54 Intake & Output 01/20/19 01/21/19 01/21/19 23:59 11:59 23:59 Intake Total 1836.992 / 4030.000 2190 / 3050 860 / 3050 Output Total 875 / 1525 1300 / 1925 625 / 1925 Balance 961.992 / 2505.000 890 / 1125 235 / 1125 Intake: IV 1516.992 / 3610.000 1730 / 2350 620 / 2350 Oral 320 / 420 460 / 700 240 / 700 Output: Urine 875 / 1525 1300 / 1925 625 / 1925 Other: Urine Color Dark [place] Light [place] Straw Urine Appearance Sediment Cloudy Cloudy Sediment Sediment Comment beige colored flakes of sediment present in the tube. beige colored flakes of sediment present in the tube. Voiding Methods Indwelling Catheter Laboratory Results WBC 11.45 k/cumm (4.4-10.8) H D 01/21/19 06:00 RBC 3.51 m/cumm (4.00-5.20) L 01/21/19 06:00 Hgb 10.5 g/dL (12.0-15.5) L 01/21/19 06:00 Hct 32.7 % (36.0-46.0) L 01/21/19 06:00 MCV 93.2 fL (80-95) 01/21/19 06:00 MCH 29.9 pg (27.0-33.0) 01/21/19 06:00 MCHC 32.1 g/dL (32.0-36.0) 01/21/19 06:00 RDW 15.8 % (11.7-14.6) H 01/21/19 06:00 Plt Count 192 x1000/uL (130-400) 01/21/19 06:00 MPV 10.2 fL (8.0-11.0) 01/21/19 06:00 Immature Gran % 0.3 01/21/19 06:00 Neutrophils % 86.2 01/21/19 06:00 Lymphocytes % 8.6 01/21/19 06:00 Monocytes % 4.5 01/21/19 06:00 Eosinophils % 0.3 01/21/19 06:00 Basophils % 0.1 01/21/19 06:00 Absolute Neutrophils 9.87 k/cumm (1.2-6.7) H 01/21/19 06:00 Absolute Lymphocytes 0.98 k/cumm (1.2-3.4) L 01/21/19 06:00 Absolute Monocytes 0.52 k/cumm (0.11-0.7) 01/21/19 06:00 Absolute Eosinophils 0.03 k/cumm (0.0-0.7) 01/21/19 06:00 Absolute Basophils 0.01 k/cumm (0.0-0.2) 01/21/19 06:00 Sodium 141 mmol/L (136-145) 01/21/19 06:00 Potassium 4.2 mmol/L (3.5-5.1) 01/21/19 06:00 Chloride 105 mmol/L (98-107) 01/21/19 06:00 Carbon Dioxide 25.3 mmol/L (21.0-32.0) 01/21/19 06:00 Anion Gap 10.7 mmol/L (3-11) 01/21/19 06:00 BUN 27 mg/dL (7-18) H 01/21/19 06:00 Creatinine 1.32 mg/dL (0.55-1.02) H 01/21/19 06:00 Estimated GFR/1.73 m2 40.14 (mL/min/1.73m2) 01/21/19 06:00 Glucose 356 mg/dL (70-100) H D 01/21/19 06:00 Lactate 1.7 mmol/l (0.6-1.4) H 01/21/19 06:00 Calcium 8.2 mg/dL (8.5-10.1) L 01/21/19 06:00 Magnesium 1.9 mg/dL (1.8-2.4) 01/21/19 06:00 Total Bilirubin 0.5 mg/dL (0.2-1.0) 01/20/19 05:37 AST 15 U/L (15-37) 01/20/19 05:37 ALT 28 U/L (12-78) 01/20/19 05:37 Alkaline Phosphatase 67 U/L (46-116) 01/20/19 05:37 Troponin I < 0.02 ng/mL (0.00-0.06) 01/19/19 21:05 NT-Pro-B Natriuret Pep 167 pg/mL (-299) 01/19/19 21:05 Total Protein 6.0 g/dL (6.4-8.2) L 01/20/19 05:37 Albumin 2.6 g/dL (3.4-5.0) L 01/20/19 05:37 Urine Color Yellow (Yellow) 01/20/19 13:35 Urine Clarity Sl cloudy 01/20/19 13:35 Urine pH 5.5 (5-8) 01/20/19 13:35 Ur Specific [place] 1.025 (1.005-1.025) 01/20/19 13:35 Urine Protein 100 mg/dL (Negative) H 01/20/19 13:35 Urine Ketones Trace mg/dL (Negative) H 01/20/19 13:35 Urine Blood Large (Negative) H 01/20/19 13:35 Urine Nitrite Negative (Negative) 01/20/19 13:35 Urine Bilirubin Small (Negative) H 01/20/19 13:35 Urine Urobilinogen 0.2 EU/dL (Up TO 0.2) 01/20/19 13:35 Ur Leukocyte Esterase Negative (Negative) 01/20/19 13:35 Urine RBC >50 (0-2) H 01/20/19 13:35 Urine WBC 0-2 HPF (0-5) 01/20/19 13:35 Ur Epithelial Cells Few HPF (Negative) 01/20/19 13:35 Urine Crystals Rare amorphous HPF (Negative) 01/20/19 13:35 Urine Bacteria Moderate HPF (Negative) 01/20/19 13:35 Urine Casts 0-2 coarse granular LPF (Negative) 01/20/19 13:35 Urine Mucus Trace (Negative) 01/20/19 13:35 Ur Culture Indicated? Yes 01/20/19 13:35 Urine Glucose >=1000 mg/dL (Negative) H 01/20/19 13:35
[2019-01-21] MEDS: Budesonide 0.5 MG/2 ML UPD VIAL UPD (20:05)
[2019-01-21] MEDS: levoFLOXacin 750 MG/150 ML BAG 100 MG IVPB (22:06)
[2019-01-21] MEDS: Insulin Glargine 300 UNITS/3 ML PEN 70 UNITS SC (22:20)
[2019-01-21] MEDS: Donepezil 5 MG TAB PO (22:28)
[2019-01-21] MEDS: Simvastatin 40 MG TAB PO (22:32)
[2019-01-22] VITALS (32 sets, daily range): BP systolic 110–139; BP diastolic 34–90; PULSE 67–108; RESP 2–27; TEMP 36.1–36.6; O2SAT 93–100
[2019-01-22] MEDS: Albuterol/Ipratropium 3 ML UPD VIAL UPD ×5 (02:04→22:30)
[2019-01-22] MEDS: methylPREDNISolone SUCC 40 MG VIAL IVP ×2 (02:05→10:05)
[2019-01-22] MEDS: Insulin NPH-Human 300 UNITS/3 ML PEN 45 UNIT SC ×3 (02:15→18:11)
[2019-01-22 07:11] LABS: Abs Immature Grans 0.05 k/cumm (0.0-0.09); Absolute Eosinophil Count 0.03 k/cumm (0.0-0.7); Absolute Lymphocyte Count 0.73 k/cumm (1.2-3.4); Absolute Monocyte Count 0.28 k/cumm (0.11-0.7); Absolute Neutrophil Count 7.75 k/cumm (1.2-6.7); Eosinophils % 0.3; HCT 31.5 % (36.0-46.0); HGB 10.2 g/dL (12.0-15.5); Immature Grans % 0.6; Lymphocytes % 8.3; Mean Corp. HGB Concentration 32.4 g/dL (32.0-36.0); Mean Corpuscular Hemoglobin 30.2 pg (27.0-33.0); Mean Corpuscular Volume 93.2 fL (80-95); Mean Platelet Volume 10.2 fL (8.0-11.0); Monocytes % 3.2; Neutrophils % 87.6; Platelet Count 204 x1000/uL (130-400); RBC 3.38 m/cumm (4.00-5.20); RBC Distribution Width 15.5 % (11.7-14.6); White Blood Cell Count 8.84 k/cumm (4.4-10.8)
[2019-01-22 07:35] LABS: BUN 24 mg/dL (7-18); CO2 26.2 mmol/L (21.0-32.0); CREATININE 1.14 mg/dL (0.55-1.02); Calcium 8.1 mg/dL (8.5-10.1); Estimated GFR 47.54 (mL/min/1.73m2); Glucose 244 mg/dL (70-100); Magnesium 2.2 mg/dL (1.8-2.4)
[2019-01-22 08:17] LABS: Anion Gap 8.8 mmol/L (3-11); Chloride 106 mmol/L (98-107); Potassium 4.1 mmol/L (3.5-5.1); Sodium 141 mmol/L (136-145)
[2019-01-22] MEDS: Benzonatate 200 MG CAP PO ×3 (08:18→20:37)
[2019-01-22] MEDS: guaiFENesin 600 MG TABCR 1200 MG PO ×2 (08:18→20:37)
[2019-01-22] MEDS: Pantoprazole 20 MG TABCR 40 MG PO (08:18)
[2019-01-22] MEDS: Enoxaparin 40 MG/0.4 ML SYR SC (08:19)
[2019-01-22] MEDS: Bisacodyl 5 MG TABEC PO (08:19)
[2019-01-22] MEDS: Insulin Aspart 300 UNITS/3 ML PEN SC ×6 (08:33→22:35)
[2019-01-22] MEDS: PIPERACILLIN/TAZO 3.375 GM in Normal Saline 50 ML IVPB ×2 (08:37→16:04)
--- NOTE | 2019-01-22 08:46 | PDOC.CMPRO ---
Care Management Progress Note S/O: Elly was lying in bed, oxygen on when CM met with her, she reported feeling about the same. She reports living alone in [facility] and utilizing [facility] for transport though she also shares a vehicle with her brother, Brian Ye who resides at [facility]. She also shared that she attends [employer] which she enjoys. She spoke of her supportive grandson, Jorge Luis Zepeda who she shared will be going on vacation to [place] soon and states she will miss him. She reports she will create a grocery list and Jorge Luis will fetch her items for her. She reports a healthy support network. She questions whether she would meet criteria to have a motorized hospital bed as she reports feeling her breathing is improved with the elevated positioning; CM reviewed requirements for Hospital Beds and provides patient education around criteria and unlikely attainment through current insurance with current level of functioning. Elly reported she would seek additional resources in the community such as [employer]. CM will continue to follow. A: 68 y/o female admitted 01/19/19 for Pneumonia P: Elly will return home when medically cleared; no additional anticipated services at this time. She will follow up with her PCP and plan of care as prescribed. Elly reports that her brother Brian will transport via private vehicle.
[2019-01-22] MEDS: Ketoconazole 2% CREAM 15 GM TUBE TP ×2 (09:40→20:48)
[2019-01-22] MEDS: Normal Saline Flush 10 ML SYR IVP (10:05)
[2019-01-22] MEDS: Budesonide 0.5 MG/2 ML UPD VIAL UPD ×2 (10:16→20:37)
[2019-01-22] MEDS: guaiFENesin/D-METHORPHAN HB 5 ML CUP 10 ML PO (10:55)
[2019-01-22] MEDS: Escitalopram 10 MG TAB PO (12:45)
[2019-01-22] MEDS: VANCOMYCIN 750 MG in Normal Saline 250 ML 167 MG IVPB (12:49)
[2019-01-22] MEDS: Acetaminophen 500 MG TAB 1000 MG PO ×2 (13:36→22:35)
--- NOTE | 2019-01-22 15:18 | PGE_ITS ---
Date of Service Date of service: 01/22/19 Time of Service: 15:13 Assessment and Plan (1) Sepsis: Current visit: No Status: Acute Sepsis on the basis of hypothermia, tachycardia, tachypnea, plus clinically suspected pulmonary source, although CXR is not supportive. Patient also had evidence of end-organ dysfunction with grossly elevated lactic acid, hypotension, and SYD although with a creatinine that was not > 2. Appears resolved. Continue current broad-spectrum antibiotics with day#3 of vancomycin, PIP-Tazo, and renally dose Levofloxacin. Blood cultures with NG X48 hours. Sputum culture ordered but not obtained. Will continue noninvasive ventilation with BiPAP as needed, and continue steroids, DuoNebs. Rapid flu checked and negative. Discontinue IVFs today, and resume patient's daily furosemide. (2) Acute kidney injury (nontraumatic): Current visit: No Status: Acute Likely pre-renal in etiology in the setting of acute illness, potential dehydration, and poor perfusion. Current creatinine improved and likely at baseline. Continue to hold ARB. (3) Type II diabetes mellitus, uncontrolled: Current visit: No Status: Chronic Significant initial hyperglycemia in the setting of infection and steroids. Insulin drip with D5 lactated ringer discontinued previously and patient resumed on home basal insulin dose, with initiated sliding scale coverage. Current blood sugars in the 300's - continue Glargine, Resistant ISS, and carb counting premeal insulin as well. NPH dosing added overnight to further improve blood sugars (4) Essential hypertension: Current visit: No Status: Chronic No longer hypotensive. Discontinue IVFs. Continue to hold ARB. (5) DVT prophylaxis: Current visit: No Status: Acute SC Lovenox. (6) Advance directive on file: Current visit: No Status: Acute Full code. Subjective Interval history since last seen: 68 yea old woman with a prior history significant for COPD, admitted from [facility] Emergency Department with a diagnosis of Pneumonia and Sepsis. Mrs. Pina has a past medical history significant for COPD on 2L home O2, Obesity, Osteoporosis, HTN, Depression, and anxiety. She also has documented Cognitive Impairment, as well as Insulin Dependent DM. She initially presented to her PCP's office (Dr. Mario Garcia) on Wednesday 01/17 with a reported 3 week history of worsening cough, wheezing and dyspnea without subjective fevers. Her subsequent CXR showed stable bilateral infiltrates, deemed likely chronic, and overall unchanged. She was initiated on combination of Augmentin and Azithromycin, as well as an increase in her previously prescribed prednisone taper. Despite this the patient failed to improve, and presented to the ED with reported worsening symptoms. Work-up revealed patient to be in acute respiratory distress with noted tachypnea, tachycardia, hypoxia, and hypotension, with significant elevation in Lactate and SYD by labwork. Her repeat CXR was unchanged. She was admitted to the ICU for further evaluation and care. Since her initial presentation Mrs. Pina appears improved and has remained off BiPAP therapy. Her lactate improved significantly and nearly normalized by last check. She does however remain quite dyspneic, especially when coughing. Creatinine again improved and likely at baseline. Blood pressures have improved as well. Blood Sugars remain difficult to control. No overnight events reported. She remains afebrile. Exam Narrative Exam Narrative: General: Patient appears chronically ill but in no acute distress, AAOX3 Neck: Supple CV: Regular, tachycardic, S1S2, No rubs, murmurs, or gallops. Pulmonary: diffuse wheezing again noted with continued decreased air entry Abdomen: + Bowel Sounds, soft, nontender, nondistended, obese in contour Vascular: Mild lower extremity edema Psych: Normal mood and affect. Objective Objective Clinical Data: Abnormal lab results 01/22/19 01/22/19 Range/Units 06:18 06:18 RBC 3.38 L (4.00-5.20) m/cumm Hgb 10.2 L (12.0-15.5) g/dL Hct 31.5 L (36.0-46.0) % RDW 15.5 H (11.7-14.6) % Absolute Neutrophils 7.75 H (1.2-6.7) k/cumm Absolute Lymphocytes 0.73 L (1.2-3.4) k/cumm BUN 24 H (7-18) mg/dL Creatinine 1.14 H (0.55-1.02) mg/dL Glucose 244 H D (70-100) mg/dL Calcium 8.1 L (8.5-10.1) mg/dL Vital Signs Temperature 36.1 C L 01/22/19 08:53 Temperature Source Temporal Artery Scan 01/22/19 08:53 Pulse 99 H 01/22/19 14:06 Pulse 96 H 01/22/19 10:05 Respiratory Rate 22 01/22/19 14:06 Respiratory Effort 01/22/19 08:53 Respiratory Depth Normal 01/22/19 08:53 Respiratory Pattern Normal 01/22/19 08:53 Blood Pressure 135/48 L 01/22/19 10:05 Blood Pressure Mean 68 01/22/19 10:05 Blood Pressure Position Supine 01/22/19 03:00 Pulse Oximetry 97 01/22/19 14:06 Oxygen Delivery Method Nasal Cannula 01/22/19 12:33 Oxygen Flow Rate 1 01/22/19 12:33 Fraction of Inspired Oxygen (FIO2) 26 01/22/19 03:00 Pain Level 0 01/22/19 03:00 Intake & Output 01/21/19 01/22/19 01/22/19 23:59 11:59 23:59 Intake Total 2430 / 4620 300 / 540 240 / 540 Output Total 1725 / 3025 1700 / 1700 Balance 705 / 1595 -1400 / -1160 240 / -1160 Weight 99.3 kg Intake: IV 1120 / 2850 100 / 100 Oral 1310 / 1770 200 / 440 240 / 440 Output: Urine 1725 / 3025 1700 / 1700 Other: Urine Color Straw Yellow Straw Urine Appearance Cloudy Cloudy Sediment Sediment Mucous Threads Comment [place] intact and draining slightly cloudy straw colored urine. Indwelling [place] catheter with clumps of white matter in [place] tubing. Laboratory Results WBC 8.84 k/cumm (4.4-10.8) 01/22/19 06:18 RBC 3.38 m/cumm (4.00-5.20) L 01/22/19 06:18 Hgb 10.2 g/dL (12.0-15.5) L 01/22/19 06:18 Hct 31.5 % (36.0-46.0) L 01/22/19 06:18 MCV 93.2 fL (80-95) 01/22/19 06:18 MCH 30.2 pg (27.0-33.0) 01/22/19 06:18 MCHC 32.4 g/dL (32.0-36.0) 01/22/19 06:18 RDW 15.5 % (11.7-14.6) H 01/22/19 06:18 Plt Count 204 x1000/uL (130-400) 01/22/19 06:18 MPV 10.2 fL (8.0-11.0) 01/22/19 06:18 Immature Gran % 0.6 01/22/19 06:18 Neutrophils % 87.6 01/22/19 06:18 Lymphocytes % 8.3 01/22/19 06:18 Monocytes % 3.2 01/22/19 06:18 Eosinophils % 0.3 01/22/19 06:18 Basophils % 0.0 01/22/19 06:18 Absolute Neutrophils 7.75 k/cumm (1.2-6.7) H 01/22/19 06:18 Absolute Lymphocytes 0.73 k/cumm (1.2-3.4) L 01/22/19 06:18 Absolute Monocytes 0.28 k/cumm (0.11-0.7) 01/22/19 06:18 Absolute Eosinophils 0.03 k/cumm (0.0-0.7) 01/22/19 06:18 Absolute Basophils 0.00 k/cumm (0.0-0.2) 01/22/19 06:18 Sodium 141 mmol/L (136-145) 01/22/19 06:18 Potassium 4.1 mmol/L (3.5-5.1) 01/22/19 06:18 Chloride 106 mmol/L (98-107) 01/22/19 06:18 Carbon Dioxide 26.2 mmol/L (21.0-32.0) 01/22/19 06:18 Anion Gap 8.8 mmol/L (3-11) 01/22/19 06:18 BUN 24 mg/dL (7-18) H 01/22/19 06:18 Creatinine 1.14 mg/dL (0.55-1.02) H 01/22/19 06:18 Estimated GFR/1.73 m2 47.54 (mL/min/1.73m2) 01/22/19 06:18 Glucose 244 mg/dL (70-100) H D 01/22/19 06:18 Lactate 1.7 mmol/l (0.6-1.4) H 01/21/19 06:00 Calcium 8.1 mg/dL (8.5-10.1) L 01/22/19 06:18 Magnesium 2.2 mg/dL (1.8-2.4) 01/22/19 06:18 Total Bilirubin 0.5 mg/dL (0.2-1.0) 01/20/19 05:37 AST 15 U/L (15-37) 01/20/19 05:37 ALT 28 U/L (12-78) 01/20/19 05:37 Alkaline Phosphatase 67 U/L (46-116) 01/20/19 05:37 Troponin I < 0.02 ng/mL (0.00-0.06) 01/19/19 21:05 NT-Pro-B Natriuret Pep 167 pg/mL (-299) 01/19/19 21:05 Total Protein 6.0 g/dL (6.4-8.2) L 01/20/19 05:37 Albumin 2.6 g/dL (3.4-5.0) L 01/20/19 05:37 Urine Color Yellow (Yellow) 01/20/19 13:35 Urine Clarity Sl cloudy 01/20/19 13:35 Urine pH 5.5 (5-8) 01/20/19 13:35 Ur Specific [place] 1.025 (1.005-1.025) 01/20/19 13:35 Urine Protein 100 mg/dL (Negative) H 01/20/19 13:35 Urine Ketones Trace mg/dL (Negative) H 01/20/19 13:35 Urine Blood Large (Negative) H 01/20/19 13:35 Urine Nitrite Negative (Negative) 01/20/19 13:35 Urine Bilirubin Small (Negative) H 01/20/19 13:35 Urine Urobilinogen 0.2 EU/dL (Up TO 0.2) 01/20/19 13:35 Ur Leukocyte Esterase Negative (Negative) 01/20/19 13:35 Urine RBC >50 (0-2) H 01/20/19 13:35 Urine WBC 0-2 HPF (0-5) 01/20/19 13:35 Ur Epithelial Cells Few HPF (Negative) 01/20/19 13:35 Urine Crystals Rare amorphous HPF (Negative) 01/20/19 13:35 Urine Bacteria Moderate HPF (Negative) 01/20/19 13:35 Urine Casts 0-2 coarse granular LPF (Negative) 01/20/19 13:35 Urine Mucus Trace (Negative) 01/20/19 13:35 Ur Culture Indicated? Yes 01/20/19 13:35 Urine Glucose >=1000 mg/dL (Negative) H 01/20/19 13:35 Legionella Source (see note) 01/20/19 13:35 Legionella Reprt Status (see note) 01/20/19 13:35 Legionella Final Result (see note) 01/20/19 13:35
[2019-01-22] MEDS: Furosemide 20 MG TAB PO (16:03)
[2019-01-22 17:25] LABS: Streptococcus Pneumoniae Ag, U Negative (Negative)
[2019-01-22] MEDS: methylPREDNISolone SUCC 125 MG VIAL 60 MG IVP (18:12)
[2019-01-22] MEDS: Donepezil 5 MG TAB PO (22:00)
[2019-01-22] MEDS: levoFLOXacin 750 MG/150 ML BAG 100 MG IVPB (22:35)
[2019-01-22] MEDS: Simvastatin 40 MG TAB PO (22:35)
[2019-01-22] MEDS: Insulin Glargine 300 UNITS/3 ML PEN 70 UNITS SC (22:35)
[2019-01-23] VITALS (40 sets, daily range): BP systolic 122–153; BP diastolic 54–94; PULSE 71–103; RESP 2–29; TEMP 36.3–37; O2SAT 88–98
[2019-01-23] MEDS: PIPERACILLIN/TAZO 3.375 GM in Normal Saline 50 ML IVPB ×3 (00:01→18:20)
[2019-01-23] MEDS: VANCOMYCIN 750 MG in Normal Saline 250 ML 166.667 MG IVPB (01:10)
[2019-01-23] MEDS: Insulin NPH-Human 300 UNITS/3 ML PEN 45 UNIT SC ×3 (01:40→18:24)
[2019-01-23] MEDS: Albuterol/Ipratropium 3 ML UPD VIAL UPD ×6 (02:00→21:41)
[2019-01-23] MEDS: methylPREDNISolone SUCC 125 MG VIAL 60 MG IVP ×3 (02:15→18:37)
[2019-01-23] MEDS: Normal Saline Flush 10 ML SYR IVP ×4 (06:21→21:49)
[2019-01-23] MEDS: Budesonide 0.5 MG/2 ML UPD VIAL UPD ×2 (07:13→21:47)
[2019-01-23 07:20] LABS: Abs Immature Grans 0.13 k/cumm (0.0-0.09); Absolute Basophil Count 0.01 k/cumm (0.0-0.2); Absolute Lymphocyte Count 0.77 k/cumm (1.2-3.4); Absolute Monocyte Count 0.28 k/cumm (0.11-0.7); Absolute Neutrophil Count 10.19 k/cumm (1.2-6.7); Basophils % 0.1; HCT 34.3 % (36.0-46.0); HGB 11.2 g/dL (12.0-15.5); Immature Grans % 1.1; Lymphocytes % 6.8; Mean Corp. HGB Concentration 32.7 g/dL (32.0-36.0); Mean Corpuscular Hemoglobin 29.6 pg (27.0-33.0); Mean Corpuscular Volume 90.7 fL (80-95); Mean Platelet Volume 10.9 fL (8.0-11.0); Monocytes % 2.5; Neutrophils % 89.5; Platelet Count 207 x1000/uL (130-400); RBC 3.78 m/cumm (4.00-5.20); White Blood Cell Count 11.38 k/cumm (4.4-10.8)
[2019-01-23 07:28] LABS: Anion Gap 10.1 mmol/L (3-11); BUN 26 mg/dL (7-18); CO2 25.9 mmol/L (21.0-32.0); CREATININE 1.17 mg/dL (0.55-1.02); Calcium 8.5 mg/dL (8.5-10.1); Chloride 107 mmol/L (98-107); Estimated GFR 46.14 (mL/min/1.73m2); Glucose 172 mg/dL (70-100); Potassium 3.9 mmol/L (3.5-5.1); Sodium 143 mmol/L (136-145)
[2019-01-23] MEDS: Insulin Aspart 300 UNITS/3 ML PEN SC ×7 (08:36→21:43)
[2019-01-23] MEDS: Furosemide 20 MG TAB PO ×2 (08:37→16:41)
[2019-01-23] MEDS: Bisacodyl 5 MG TABEC PO (08:37)
[2019-01-23] MEDS: Benzonatate 200 MG CAP PO ×3 (08:37→21:39)
[2019-01-23] MEDS: guaiFENesin 600 MG TABCR 1200 MG PO ×2 (08:37→21:39)
[2019-01-23] MEDS: Pantoprazole 20 MG TABCR 40 MG PO (08:38)
[2019-01-23] MEDS: Enoxaparin 40 MG/0.4 ML SYR SC (08:38)
[2019-01-23] MEDS: Ketoconazole 2% CREAM 15 GM TUBE TP ×2 (10:24→21:48)
[2019-01-23] MEDS: Potassium Chloride 10 MEQ TABCR PO (10:25)
[2019-01-23] MEDS: Escitalopram 10 MG TAB PO (12:42)
--- NOTE | 2019-01-23 14:15 | PDOC.CMPRO ---
- If Service Date Differs Date of service: 01/23/19 Time of Service: 14:15 Care Management Progress Note S/O: Elly will transition to a Med/Surg overflow in the ICU today per MD this morning. She continues to have an oxygen requirement as of this morning. Elly enjoys talking about her family and how supportive they are to her in the community. She reports that she is hopeful that her brother Brian will be in to visit her as he has the car that they share at this time. No change in DC plan. A: 68 y/o female admitted 01/19/19 for Pneumonia P: Elly will return home when medically cleared; no additional anticipated services at this time. She will follow up with her PCP and plan of care as prescribed. Elly reports that her brother Brian will transport via private vehicle.
--- NOTE | 2019-01-23 14:31 | CMPROGNOTE_ITS ---
- If Service Date Differs Date of service: 01/23/19 Time of Service: 14:15 Care Management Progress Note S/O: Elly will transition to a Med/Surg overflow in the ICU today per MD this morning. She continues to have an oxygen requirement as of this morning. Elly enjoys talking about her family and how supportive they are to her in the community. She reports that she is hopeful that her brother Brian will be in to visit her as he has the car that they share at this time. No change in DC plan. A: 68 y/o female admitted 01/19/19 for Pneumonia P: Elly will return home when medically cleared; no additional anticipated services at this time. She will follow up with her PCP and plan of care as p rescribed. Elly reports that her brother Brian will transport via private vehicle.
--- NOTE | 2019-01-23 15:15 | PGE_ITS ---
Date of Service Date of service: 01/23/19 Time of Service: 15:13 Assessment and Plan (1) Sepsis: Current visit: No Status: Acute Sepsis on the basis of hypothermia, tachycardia, tachypnea, plus clinically suspected pulmonary source, although CXR is not supportive. Patient also had evidence of end-organ dysfunction with grossly elevated lactic acid, hypotension, and SYD although with a creatinine that was not > 2. Resolved. Continue current broad-spectrum antibiotics with day#3 of vancomycin, PIP-Tazo, and renally dose Levofloxacin. Blood cultures with NG X72 hours. Sputum culture pending. Will continue noninvasive ventilation with BiPAP as needed, and continue steroids, DuoNebs. Rapid flu checked and negative. (2) Acute kidney injury (nontraumatic): Current visit: No Status: Acute Likely pre-renal in etiology in the setting of acute illness, potential dehydration, and poor perfusion. Current creatinine improved and likely at baseline. Continue to hold ARB. (3) Type II diabetes mellitus, uncontrolled: Current visit: No Status: Chronic Significant initial hyperglycemia in the setting of infection and steroids . Insulin drip with D5 lactated ringer discontinued previously and patient resumed on home basal insulin dose, with initiated sliding scale coverage. Current blood sugars in the 200's - continue Glargine, Resistant scale ISS, and carb counting premeal insulin as well. NPH dosing with steroid administration added to further improve blood sugars (4) Essential hypertension: Current visit: No Status: Chronic No longer hypotensive. Discontinue IVFs. Continue to hold ARB. (5) DVT prophylaxis: Current visit: No Status: Acute SC Lovenox. (6) Advance directive on file: Current visit: No Status: Acute Full code. Subjective Interval history since last seen: 68 yea old woman with a prior history significant for COPD, admitted from [facility] Emergency Department with a diagnosis of Pneumonia and Sepsis. Mrs. Pina has a past medical history significant for COPD on 2L home O2, Obesity, Osteoporosis, HTN, Depression, and anxiety. She also has documented Cognitive Impairment, as well as Insulin Dependent DM. She initially presented to her PCP's office (Dr. Mario Garcia) on Wednesday 01/17 with a reported 3 week history of worsening cough, wheezing and dyspnea without subjective fevers. Her subsequent CXR showed stable bilateral infiltrates, deemed likely chronic, and overall unchanged. She was initiated on combination of Augmentin and Azith romycin, as well as an increase in her previously prescribed prednisone taper. Despite this the patient failed to improve, and presented to the ED with reported worsening symptoms. Work-up revealed patient to be in acute respiratory distress with noted tachypnea, tachycardia, hypoxia, and hypotension, with significant elevation in Lactate and SYD by labwork. Her repeat CXR was unchanged. She was admitted to the ICU for further evaluation and care. Since her initial presentation Mrs. Pina appears improved and has remained off BiPAP therapy except for comfort, usually overnight. Her lactate improved significantly and nearly normalized by last check. She does remain quite dyspneic, especially when coughing, but reports improvement this morning. Creatinine again improved and likely at baseline. Blood pressures have improved as well. Blood Sugars remain difficult to control on steroid therapy, but have improved on aggressive insulin regimen. No overnight events reported. She remains afebrile. Exam Narrative Exam Narrative: General: Patient appears chronically ill but in no acute di stress, AAOX3 Neck: Supple CV: Regular, borderline tachycardic, S1S2, No rubs, murmurs, or gallops. Pulmonary: diffuse wheezing again noted, but with improved air entry Abdomen: + Bowel Sounds, soft, nontender, nondistended, obese in contour Vascular: Mild lower extremity edema Psych: Normal mood and affect. Objective Objective Clinical Data: Abnormal lab results 01/23/19 01/23/19 Range/Units 06:28 06:28 WBC 11.38 H (4.4-10.8) k/cumm RBC 3.78 L (4.00-5.20) m/cumm Hgb 11.2 L (12.0-15.5) g/dL Hct 34.3 L (36.0-46.0) % RDW 15.0 H (11.7-14.6) % Absolute Neutrophils 10.19 H (1.2-6.7) k/cumm Absolute Lymphocytes 0.77 L (1.2-3.4) k/cumm BUN 26 H (7-18) mg/dL Creatinine 1.17 H (0.55-1.02) mg/dL Glucose 172 H (70-100) mg/dL Vital Signs Temperature 36.3 C L 01/23/19 08:48 Temperature Source Temporal Artery Scan 01/23/19 08:48 Pulse 94 H 01/23/19 14:00 Pulse 96 H 01/23/19 14:00 Respiratory Rate 23 01/23/19 14:00 Respiratory Effort 01/23/19 08:48 Respiratory Depth Normal 01/23/19 08:48 Respiratory Pattern Normal 01/23/19 08:48 Blood Pressure 141/61 H 01/23/19 14:00 Blood Pressure Mean 81 01/23/19 14:00 Blood Pressure Position Supine 01/23/19 08:48 Pulse Oximetry 96 01/23/19 14:00 Oxygen Delivery Method Nasal Cannula 01/23/19 08:48 Oxygen Flow Rate 1 01/23/19 08:48 Fraction of Inspired Oxygen (FIO2) 25 01/23/19 03:00 Pain Level 0 01/23/19 08:48 Intake & Output 01/22/19 01/23/19 01/23/19 23:59 11:59 23:59 Intake Total 790 / 1090 1270 / 1610 340 / 1610 Output Total 1600 / 3300 2600 / 3110 510 / 3110 Balance -810 / -2210 -1330 / -1500 -170 / -1500 Weight 88.3 kg Intake: IV 50 / 150 450 / 450 Oral 740 / 940 820 / 1160 340 / 1160 Output: Urine 1600 / 3300 2600 / 3110 510 / 3110 Other: Urine Color Yellow Yellow Yellow Urine Appearance Cloudy Clear Sediment Urine Odor Normal Normal Normal Comment Pt voiding clear yellow urine QS on BSC. Occ stress incont of urine with coughing spells. Patient reports stress incontinence with coughing. Wearing attends. Stool Size Small Small Stool Characteristics Soft Soft Formed Formed Voiding Methods Bedside Commode Bedside Commode Bedside Commode Incontinent Laboratory Results WBC 11.38 k/cumm (4.4-10.8) H 01/23/19 06:28 RBC 3.78 m/cumm (4.00-5.20) L 01/23/19 06:28 Hgb 11.2 g/dL (12.0-15.5) L 01/23/19 06:28 Hct 34.3 % (36.0-46.0) L 01/23/19 06:28 MCV 90.7 fL (80-95) 01/23/19 06:28 MCH 29.6 pg (27.0-33.0) 01/23/19 06:28 MCHC 32.7 g/dL (32.0-36.0) 01/23/19 06:28 RDW 15.0 % (11.7-14.6) H 01/23/19 06:28 Plt Count 207 x1000/uL (130-400) 01/23/19 06:28 MPV 10.9 fL (8.0-11.0) 01/23/19 06:28 Immature Gran % 1.1 01/23/19 06:28 Neutrophils % 89.5 01/23/19 06:28 Lymphocytes % 6.8 01/23/19 06:28 Monocytes % 2.5 01/23/19 06:28 Eosinophils % 0.0 01/23/19 06:28 Basophils % 0.1 01/23/19 06:28 Absolute Neutrophils 10.19 k/cumm (1.2-6.7) H 01/23/19 06:28 Absolute Lymphocytes 0.77 k/cumm (1.2-3.4) L 01/23/19 06:28 Absolute Monocytes 0.28 k/cumm (0.11-0.7) 01/23/19 06:28 Absolute Eosinophils 0.00 k/cumm (0.0-0.7) 01/23/19 06:28 Absolute Basophils 0.01 k/cumm (0.0-0.2) 01/23/19 06:28 Sodium 143 mmol/L (136-145) 01/23/19 06:28 Potassium 3.9 mmol/L (3.5-5.1) 01/23/19 06:28 Chloride 107 mmol/L (98-107) 01/23/19 06:28 Carbon Dioxide 25.9 mmol/L (21.0-32.0) 01/23/19 06:28 Anion Gap 10.1 mmol/L (3-11) 01/23/19 06:28 BUN 26 mg/dL (7-18) H 01/23/19 06:28 Creatinine 1.17 mg/dL (0.55-1.02) H 01/23/19 06:28 Estimated GFR/1.73 m2 46.14 (mL/min/1.73m2) 01/23/19 06:28 Glucose 172 mg/dL (70-100) H 01/23/19 06:28 Lactate 1.7 mmol/l (0.6-1.4) H 01/21/19 06:00 Calcium 8.5 mg/dL (8.5-10.1) 01/23/19 06:28 Magnesium 2.0 mg/dL (1.8-2.4) 01/23/19 06:28 Total Bilirubin 0.5 mg/dL (0.2-1.0) 01/20/19 05:37 AST 15 U/L (15-37) 01/20/19 05:37 ALT 28 U/L (12-78) 01/20/19 05:37 Alkaline Phosphatase 67 U/L (46-116) 01/20/19 05:37 Troponin I < 0.02 ng/mL (0.00-0.06) 01/19/19 21:05 NT-Pro-B Natriuret Pep 167 pg/mL (-299) 01/19/19 21:05 Total Protein 6.0 g/dL (6.4-8.2) L 01/20/19 05:37 Albumin 2.6 g/dL (3.4-5.0) L 01/20/19 05:37 Urine Color Yellow (Yellow) 01/20/19 13:35 Urine Clarity Sl cloudy 01/20/19 13:35 Urine pH 5.5 (5-8) 01/20/19 13:35 Ur Specific [place] 1.025 (1.005-1.025) 01/20/19 13:35 Urine Protein 100 mg/dL (Negative) H 01/20/19 13:35 Urine Ketones Trace mg/dL (Negative) H 01/20/19 13:35 Urine Blood Large (Negative) H 01/20/19 13:35 Urine Nitrite Negative (Negative) 01/20/19 13:35 Urine Bilirubin Small (Negative) H 01/20/19 13:35 Urine Urobilinogen 0.2 EU/dL (Up TO 0.2) 01/20/19 13:35 Ur Leukocyte Esterase Negative (Negative) 01/20/19 13:35 Urine RBC >50 (0-2) H 01/20/19 13:35 Urine WBC 0-2 HPF (0-5) 01/20/19 13:35 Ur Epithelial Cells Few HPF (Negative) 01/20/19 13:35 Urine Crystals Rare amorphous HPF (Negative) 01/20/19 13:35 Urine Bacteria Moderate HPF (Negative) 01/20/19 13:35 Urine Casts 0-2 coarse granular LPF (Negative) 01/20/19 13:35 Urine Mucus Trace (Negative) 01/20/19 13:35 Ur Culture Indicated? Yes 01/20/19 13:35 Urine Glucose >=1000 mg/dL (Negative) H 01/20/19 13:35 Legionella Source (see note) 01/20/19 13:35 Legionella Reprt Status (see note) 01/20/19 13:35 Legionella Final Result (see note) 01/20/19 13:35 Ur Strep pneumoniae Ag Negative (Negative) 01/20/19 13:35
--- NOTE | 2019-01-23 17:11 | W.DIABETESNO ---
Date of service: 01/23/19 Time of Service: 17:12 Diabetes Note NOTE: Appreciate addition of NPH for glycemic management in light of 60mg Methyprednisolone. BLood sugars have improved mostly in the 100s receiving 45units with each steroid administration. She also receives usual basal insulin of 70 units; resistant insulin correction and insulin:carb at 1 unit covers 10mg/dl. Will follow blood sugars and consider if an increase in insulin:carb is indicated. Time Spent in Nutritional Counseling and Treatment: 0
[2019-01-23 18:27] LABS: Vancomycin, Trough 8.9 ug/mL (10.0-20.0)
[2019-01-23] MEDS: Donepezil 5 MG TAB PO (21:39)
[2019-01-23] MEDS: Simvastatin 40 MG TAB PO (21:39)
[2019-01-23] MEDS: levoFLOXacin 750 MG/150 ML BAG 100 MG IVPB (21:42)
[2019-01-23] MEDS: Insulin Glargine 300 UNITS/3 ML PEN 70 UNITS SC (21:45)
[2019-01-24] VITALS (34 sets, daily range): BP systolic 104–153; BP diastolic 48–85; PULSE 64–123; RESP 2–29; TEMP 35.1–36.8; O2SAT 2–98
[2019-01-24] MEDS: guaiFENesin/D-METHORPHAN HB 5 ML CUP 10 ML PO (00:05)
[2019-01-24] MEDS: Acetaminophen 500 MG TAB 1000 MG PO (00:07)
[2019-01-24] MEDS: Insulin NPH-Human 300 UNITS/3 ML PEN 45 UNIT SC ×2 (01:23→10:42)
[2019-01-24] MEDS: Albuterol/Ipratropium 3 ML UPD VIAL UPD ×6 (01:30→21:52)
[2019-01-24] MEDS: methylPREDNISolone SUCC 125 MG VIAL 60 MG IVP ×2 (01:31→10:40)
[2019-01-24] MEDS: PIPERACILLIN/TAZO 3.375 GM in Normal Saline 50 ML IVPB ×3 (01:40→18:05)
[2019-01-24] MEDS: Normal Saline Flush 10 ML SYR IVP ×3 (02:09→19:52)
[2019-01-24] MEDS: Pantoprazole 20 MG TABCR 40 MG PO (06:47)
[2019-01-24 07:04] LABS: Abs Immature Grans 0.27 k/cumm (0.0-0.09); Absolute Basophil Count 0.02 k/cumm (0.0-0.2); Absolute Lymphocyte Count 1.09 k/cumm (1.2-3.4); Absolute Monocyte Count 0.57 k/cumm (0.11-0.7); Absolute Neutrophil Count 10.18 k/cumm (1.2-6.7); Basophils % 0.2; HCT 34.8 % (36.0-46.0); HGB 11.5 g/dL (12.0-15.5); Immature Grans % 2.2; Mean Corpuscular Hemoglobin 29.6 pg (27.0-33.0); Mean Corpuscular Volume 89.5 fL (80-95); Mean Platelet Volume 10.2 fL (8.0-11.0); Monocytes % 4.7; Neutrophils % 83.9; Platelet Count 236 x1000/uL (130-400); RBC 3.89 m/cumm (4.00-5.20); RBC Distribution Width 14.9 % (11.7-14.6); White Blood Cell Count 12.13 k/cumm (4.4-10.8)
[2019-01-24] MEDS: Budesonide 0.5 MG/2 ML UPD VIAL UPD ×2 (07:19→19:51)
[2019-01-24 07:25] LABS: Anion Gap 12.7 mmol/L (3-11); BUN 30 mg/dL (7-18); CO2 29.3 mmol/L (21.0-32.0); CREATININE 1.29 mg/dL (0.55-1.02); Calcium 8.5 mg/dL (8.5-10.1); Chloride 106 mmol/L (98-107); Estimated GFR 41.22 (mL/min/1.73m2); Glucose 91 mg/dL (70-100); Potassium 3.3 mmol/L (3.5-5.1); Sodium 148 mmol/L (136-145)
[2019-01-24 07:55] LABS: Diff Comment Agrees w/ Instrument; RBC Morphology Normal
[2019-01-24] MEDS: Furosemide 20 MG TAB PO ×2 (08:56→17:00)
[2019-01-24] MEDS: Benzonatate 200 MG CAP PO ×3 (08:56→19:51)
[2019-01-24] MEDS: Potassium Chloride 20 MEQ TABCR 40 MEQ PO (08:56)
[2019-01-24] MEDS: guaiFENesin 600 MG TABCR 1200 MG PO ×2 (08:56→19:51)
[2019-01-24] MEDS: Enoxaparin 40 MG/0.4 ML SYR SC (08:56)
[2019-01-24] MEDS: Bisacodyl 5 MG TABEC PO (08:57)
[2019-01-24] MEDS: Insulin Aspart 300 UNITS/3 ML PEN SC ×5 (09:51→22:00)
[2019-01-24] MEDS: Ketoconazole 2% CREAM 15 GM TUBE TP ×2 (10:54→20:36)
--- NOTE | 2019-01-24 11:20 | PGE_ITS ---
Date of Service Date of service: 01/24/19 Time of Service: 11:18 Assessment and Plan (1) Sepsis: Current visit: No Status: Acute Sepsis on the basis of hypothermia, tachycardia, tachypnea, with a clinically suspected pulmonary source (although CXR was not supportive). Patient also had evidence of end-organ dysfunction with grossly elevated lactic acid, hypotension, and SYD although with a creatinine that was not > 2. Resolved. Continue current broad-spectrum antibiotics with day#4 of vancomycin, PIP-Tazo, and renally dose Levofloxacin. Blood cultures with NG X96 hours. Sputum culture likely contaminant. Will continue noninvasive ventilation with BiPAP as needed, and continue steroids, DuoNebs. Rapid flu checked and negative. (2) COPD (chronic obstructive pulmonary disease): Current visit: Yes Status: Chronic Significant underlying COPD on home O2. Patient with significant second hand exposure to tobacco. Currently with acute exacerbation, likely in setting of infection. Appears to be improving. Continue but wean steroids, continue anti biotics, nebs as above. (3) Acute kidney injury (nontraumatic): Current visit: No Status: Acute Likely pre-renal in etiology in the setting of acute illness, potential dehydration, and poor perfusion. Current creatinine improved and likely at or near baseline. Continue to hold ARB. (4) Type II diabetes mellitus, uncontrolled: Current visit: No Status: Chronic Significant initial hyperglycemia in the setting of infection and steroids. Insulin drip with D5 lactated ringer discontinued previously and patient resumed on home basal insulin dose, with initiated sliding scale coverage. Continue Glargine, Resistant scale ISS, and carb counting premeal insulin as well. NPH dosing with steroid administration added to further improve blood sug ars - decreased dose and frequency today with titration or steroids. (5) Essential hypertension: Current visit: No Status: Chronic No longer hypotensive. Discontinued IVFs. Continue to hold ARB. Also on furosemide, reinitiated. (6) DVT prophylaxis: Current visit: No Status: Acute SC Lovenox. (7) Advance directive on file: Current visit: No Status: Acute Full code. Subjective Interval history since last seen: 68 yea old woman with a prior history significant for COPD, admitted from [facility] Emergency Department with a diagnosis of Pneumonia and Sepsis. Mrs. Pina has a past medical history significant for COPD on 2L home O2, Obesity, Osteoporosis, HTN, Depression, and anxiety. She also has documented Cognitive Impairment, as well as Insulin Dependent DM. She initially presented to her PCP's office (Dr. Mario Garcia) on Wednesday 01/17 with a reported 3 week history of worsening cough, wheezing and dyspnea without subjective fevers. Her subsequent CXR showed stable bilateral infiltrates, deemed likely chronic, and overall unchanged. She was initiated on combination of Augmentin and Azithromycin, as well as an increase in her previously prescribed prednisone taper. Despite this the patient failed to improve, and presented to the ED with reported worsening symptoms. Work-up revealed her to be in acute respiratory distress with noted tachypnea, tachycardia, hypoxia, and hypotension, with significant elevation in Lactate and SYD by labwork. Her repeat CXR was unchanged. She was admitted to the ICU for further evaluation and care. Since her initial presentation Mrs. Pina appears improved and has remained off BiPAP therapy except for comfort, usually overnight. Her lactate improved significantly and nearly normalized by last check. Her dyspnea continues to improve, as does her cough, with continued reported improvement this morning. Creatinine has improved overall and remains near baseline. Blood pressures have improved as well. Blood Sugars remain difficult to control on steroid therapy, but have improved on aggressive insulin regimen. No overnight events reported. She remains afebrile. Exam Narrative Exam Narrative: General: Patient appears chronically ill but in no acute distress, AAOX3 Neck: Supple CV: Regular, mildly tachycardic, S1S2. Pulmonary: diffuse wheezing improved, but with improved air entry Abdomen: + Bowel Sounds, soft, nontender, nondistended, obese in contour Vascular: Mild lower extremity edema Psych: Normal mood and affect. Objective Objective Clinical Data: Abnormal lab results 01/23/19 01/24/19 01/24/19 Range/Units 17:03 06:25 06:25 WBC 12.13 H (4.4-10.8) k/cumm RBC 3.89 L (4.00-5.20) m/cumm Hgb 11.5 L (12.0-15.5) g/dL Hct 34.8 L (36.0-46.0) % RDW 14.9 H (11.7-14.6) % Absolute Neutrophils 10.18 H (1.2-6.7) k/cumm Absolute Lymphocytes 1.09 L (1.2-3.4) k/cumm Sodium 148 H (136-145) mmol/L Potassium 3.3 L (3.5-5.1) mmol/L Anion Gap 12.7 H (3-11) mmol/L BUN 30 H (7-18) mg/dL Creatinine 1.29 H (0.55-1.02) mg/dL Vancomycin Trough 8.9 L (10.0-20.0) ug/mL Vital Signs Temperature 36.5 C 01/24/19 09:53 Temperature Source Temporal Artery Scan 01/24/19 09:53 Pulse 105 H 01/24/19 10:01 Pulse 64 01/24/19 04:00 Respiratory Rate 21 01/24/19 10:01 Respiratory Effort 01/24/19 03:15 Respiratory Depth Normal 01/24/19 03:15 Respiratory Pattern Normal 01/24/19 03:15 Blood Pressure 138/65 01/24/19 02:01 Blood Pressure Mean 80 01/24/19 02:01 Blood Pressure Position Supine 01/24/19 03:15 Pulse Oximetry 98 01/24/19 04:47 Oxygen Delivery Method Nasal Cannula 01/24/19 09:53 Oxygen Flow Rate 1 01/24/19 09:53 Fraction of Inspired Oxygen (FIO2) 25 01/23/19 03:00 Pain Level 4 01/24/19 03:15 Intake & Output 01/23/19 01/23/19 01/24/19 11:59 23:59 11:59 Intake Total 1270 / 2660.000 1390.000 / 2660.000 250 / 250 Output Total 2600 / 4360 1760 / 4360 2450 / 2450 Balance -1330 / -1700.000 -370.000 / -1700.000 -2200 / -2200 Weight 88.3 kg 97.2 kg Intake: IV 450 / 750.000 300.000 / 750.000 200 / 200 Oral 820 / 1910 1090 / 1910 50 / 50 Output: Urine 2600 / 4360 1760 / 4360 2450 / 2450 Other: Urine Color Yellow Yellow Yellow Urine Appearance Clear Clear Clear Urine Odor Normal Normal Normal Comment Patient reports stress incontinence with coughing. Wearing attends. mixed with stool mixed with stool Stool Occult Blood Negative Stool Size Small Small Moderate Stool Characteristics Soft Soft Soft Formed Formed Formed Brown Voiding Methods Bedside Commode Bedside Commode Bedside Commode Diaper Laboratory Results WBC 12.13 k/cumm (4.4-10.8) H 01/24/19 06:25 RBC 3.89 m/cumm (4.00-5.20) L 01/24/19 06:25 Hgb 11.5 g/dL (12.0-15.5) L 01/24/19 06:25 Hct 34.8 % (36.0-46.0) L 01/24/19 06:25 MCV 89.5 fL (80-95) 01/24/19 06:25 MCH 29.6 pg (27.0-33.0) 01/24/19 06:25 MCHC 33.0 g/dL (32.0-36.0) 01/24/19 06:25 RDW 14.9 % (11.7-14.6) H 01/24/19 06:25 Plt Count 236 x1000/uL (130-400) 01/24/19 06:25 MPV 10.2 fL (8.0-11.0) 01/24/19 06:25 Immature Gran % 2.2 01/24/19 06:25 Neutrophils % 83.9 01/24/19 06:25 Lymphocytes % 9.0 01/24/19 06:25 Monocytes % 4.7 01/24/19 06:25 Eosinophils % 0.0 01/24/19 06:25 Basophils % 0.2 01/24/19 06:25 Absolute Neutrophils 10.18 k/cumm (1.2-6.7) H 01/24/19 06:25 Absolute Lymphocytes 1.09 k/cumm (1.2-3.4) L 01/24/19 06:25 Absolute Monocytes 0.57 k/cumm (0.11-0.7) 01/24/19 06:25 Absolute Eosinophils 0.00 k/cumm (0.0-0.7) 01/24/19 06:25 Absolute Basophils 0.02 k/cumm (0.0-0.2) 01/24/19 06:25 Differential Comment Agrees w/ instrument 01/24/19 06:25 RBC Morphology Normal 01/24/19 06:25 Sodium 148 mmol/L (136-145) H 01/24/19 06:25 Potassium 3.3 mmol/L (3.5-5.1) L 01/24/19 06:25 Chloride 106 mmol/L (98-107) 01/24/19 06:25 Carbon Dioxide 29.3 mmol/L (21.0-32.0) 01/24/19 06:25 Anion Gap 12.7 mmol/L (3-11) H 01/24/19 06:25 BUN 30 mg/dL (7-18) H 01/24/19 06:25 Creatinine 1.29 mg/dL (0.55-1.02) H 01/24/19 06:25 Estimated GFR/1.73 m2 41.22 (mL/min/1.73m2) 01/24/19 06:25 Glucose 91 mg/dL (70-100) D 01/24/19 06:25 Lactate 1.7 mmol/l (0.6-1.4) H 01/21/19 06:00 Calcium 8.5 mg/dL (8.5-10.1) 01/24/19 06:25 Magnesium 2.0 mg/dL (1.8-2.4) 01/24/19 06:25 Total Bilirubin 0.5 mg/dL (0.2-1.0) 01/20/19 05:37 AST 15 U/L (15-37) 01/20/19 05:37 ALT 28 U/L (12-78) 01/20/19 05:37 Alkaline Phosphatase 67 U/L (46-116) 01/20/19 05:37 Troponin I < 0.02 ng/mL (0.00-0.06) 01/19/19 21:05 NT-Pro-B Natriuret Pep 167 pg/mL (-299) 01/19/19 21:05 Total Protein 6.0 g/dL (6.4-8.2) L 01/20/19 05:37 Albumin 2.6 g/dL (3.4-5.0) L 01/20/19 05:37 Urine Color Yellow (Yellow) 01/20/19 13:35 Urine Clarity Sl cloudy 01/20/19 13:35 Urine pH 5.5 (5-8) 01/20/19 13:35 Ur Specific [place] 1.025 (1.005-1.025) 01/20/19 13:35 Urine Protein 100 mg/dL (Negative) H 01/20/19 13:35 Urine Ketones Trace mg/dL (Negative) H 01/20/19 13:35 Urine Blood Large (Negative) H 01/20/19 13:35 Urine Nitrite Negative (Negative) 01/20/19 13:35 Urine Bilirubin Small (Negative) H 01/20/19 13:35 Urine Urobilinogen 0.2 EU/dL (Up TO 0.2) 01/20/19 13:35 Ur Leukocyte Esterase Negative (Negative) 01/20/19 13:35 Urine RBC >50 (0-2) H 01/20/19 13:35 Urine WBC 0-2 HPF (0-5) 01/20/19 13:35 Ur Epithelial Cells Few HPF (Negative) 01/20/19 13:35 Urine Crystals Rare amorphous HPF (Negative) 01/20/19 13:35 Urine Bacteria Moderate HPF (Negative) 01/20/19 13:35 Urine Casts 0-2 coarse granular LPF (Negative) 01/20/19 13:35 Urine Mucus Trace (Negative) 01/20/19 13:35 Ur Culture Indicated? Yes 01/20/19 13:35 Urine Glucose >=1000 mg/dL (Negative) H 01/20/19 13:35 Vancomycin Trough 8.9 ug/mL (10.0-20.0) L 01/23/19 17:03 Legionella Source (see note) 01/20/19 13:35 Legionella Reprt Status (see note) 01/20/19 13:35 Legionella Final Result (see note) 01/20/19 13:35 Ur Strep pneumoniae Ag Negative (Negative) 01/20/19 13:35
[2019-01-24] MEDS: Escitalopram 10 MG TAB PO (12:31)
--- NOTE | 2019-01-24 13:14 | CHAPLAIN ---
Elly was sitting up having lunch, visiting with friends when I stopped by. I introduce myself, explained my role and offered support.
--- NOTE | 2019-01-24 14:43 | PDOC.CMPRO ---
- If Service Date Differs Date of service: 01/24/19 Time of Service: 14:43 Care Management Progress Note S/O: Elly is lying in bed, receptive to discussion this morning. Elly remains in the ICU this morning, she continues to require oxygen at this time. Elly also continues to require IV antibiotics. No change in DC plan. A: 68 y/o female admitted 01/19/19 for Pneumonia P: Elly will return home when medically cleared; no additional anticipated services at this time. She will follow up with her PCP and plan of care as prescribed. Elly reports that her brother Brian will transport via private vehicle.
[2019-01-24] MEDS: POTASSIUM CHLORIDE 20 MEQ, POTASSIUM CHLORIDE 10 MEQ 30 MEQ PO (17:01)
[2019-01-24] MEDS: VANCOMYCIN 1,000 MG in Normal Saline 250 ML 166.667 MG IVPB (18:08)
[2019-01-24] MEDS: methylPREDNISolone SUCC 40 MG VIAL IVP (19:40)
[2019-01-24] MEDS: Insulin NPH-Human 300 UNITS/3 ML PEN 20 UNIT SC (19:50)
[2019-01-24] MEDS: Donepezil 5 MG TAB PO (21:52)
[2019-01-24] MEDS: Simvastatin 40 MG TAB PO (21:52)
[2019-01-24] MEDS: levoFLOXacin 750 MG/150 ML BAG 100 MG IVPB (22:01)
[2019-01-24] MEDS: Insulin Glargine 300 UNITS/3 ML PEN 70 UNITS SC (22:31)
[2019-01-25] VITALS (17 sets, daily range): BP systolic 104–162; BP diastolic 66–89; PULSE 75–128; RESP 1–24; TEMP 35.1–36.1; O2SAT 92–98
[2019-01-25] MEDS: Acetaminophen 500 MG TAB 1000 MG PO ×2 (00:02→10:40)
[2019-01-25] MEDS: PIPERACILLIN/TAZO 3.375 GM in Normal Saline 50 ML IVPB ×3 (02:30→18:25)
[2019-01-25] MEDS: VANCOMYCIN 1,000 MG in Normal Saline 250 ML 166.67 MG IVPB (05:44)
[2019-01-25] MEDS: Albuterol/Ipratropium 3 ML UPD VIAL UPD ×5 (06:02→22:51)
[2019-01-25 07:14] LABS: Abs Immature Grans 0.56 k/cumm (0.0-0.09); Absolute Monocyte Count 1.07 k/cumm (0.11-0.7); HCT 33.3 % (36.0-46.0); HGB 10.8 g/dL (12.0-15.5); Mean Corp. HGB Concentration 32.4 g/dL (32.0-36.0); Mean Corpuscular Hemoglobin 29.3 pg (27.0-33.0); Mean Corpuscular Volume 90.2 fL (80-95); Mean Platelet Volume 10.3 fL (8.0-11.0); Monocytes % 8.8; Platelet Count 226 x1000/uL (130-400); RBC 3.69 m/cumm (4.00-5.20); RBC Distribution Width 15.1 % (11.7-14.6); White Blood Cell Count 12.18 k/cumm (4.4-10.8)
[2019-01-25 07:19] LABS: Anion Gap 8.3 mmol/L (3-11); BUN 29 mg/dL (7-18); CO2 29.7 mmol/L (21.0-32.0); Calcium 7.9 mg/dL (8.5-10.1); Chloride 107 mmol/L (98-107); Estimated GFR 40.86 (mL/min/1.73m2); Glucose 90 mg/dL (70-100); Magnesium 1.8 mg/dL (1.8-2.4); Potassium 3.2 mmol/L (3.5-5.1); Sodium 145 mmol/L (136-145)
[2019-01-25] MEDS: Enoxaparin 40 MG/0.4 ML SYR SC (07:54)
[2019-01-25] MEDS: Furosemide 20 MG TAB PO ×2 (07:55→16:28)
[2019-01-25] MEDS: Benzonatate 200 MG CAP PO ×3 (07:55→20:05)
[2019-01-25] MEDS: guaiFENesin 600 MG TABCR 1200 MG PO ×2 (07:55→19:57)
[2019-01-25] MEDS: methylPREDNISolone SUCC 40 MG VIAL IVP ×2 (07:55→19:57)
[2019-01-25] MEDS: Bisacodyl 5 MG TABEC PO (07:56)
[2019-01-25] MEDS: Pantoprazole 20 MG TABCR 40 MG PO (07:56)
[2019-01-25 08:19] LABS: Diff Comment Manual Differential
[2019-01-25 08:24] LABS: RBC Morphology Normal
[2019-01-25] MEDS: Insulin Aspart 300 UNITS/3 ML PEN SC ×5 (08:47→22:53)
[2019-01-25] MEDS: Budesonide 0.5 MG/2 ML UPD VIAL UPD ×2 (09:03→19:57)
[2019-01-25] MEDS: Ketoconazole 2% CREAM 15 GM TUBE TP ×2 (09:31→20:18)
[2019-01-25] MEDS: guaiFENesin/D-METHORPHAN HB 5 ML CUP 10 ML PO (10:40)
[2019-01-25] MEDS: Potassium Chloride 20 MEQ TABCR 40 MEQ PO ×3 (10:40→16:27)
[2019-01-25] MEDS: Magnesium Oxide 400 MG TAB PO ×3 (10:40→16:28)
--- NOTE | 2019-01-25 11:01 | W.PM.PROGNOT ---
Date of Service Date of service: 01/25/19 Time of Service: 11:01 Assessment and Plan (1) Sepsis: Current visit: No Status: Acute Sepsis on the basis of hypothermia, tachycardia, tachypnea, with a clinically suspected pulmonary source (although CXR was not supportive). Patient also had evidence of end-organ dysfunction with grossly elevated lactic acid, hypotension, and SYD although with a creatinine that was not > 2. Resolved. Continue current broad-spectrum antibiotics with day#6 of vancomycin, PIP-Tazo, and renally dose Levofloxacin. Blood cultures with NG X120 hours. Sputum culture likely contaminant. Will continue noninvasive ventilation with BiPAP as needed, and continue steroids, DuoNebs. Rapid flu checked and negative. (2) COPD (chronic obstructive pulmonary disease): Current visit: Yes Status: Chronic Significant underlying COPD on home O2. Patient with significant second hand exposure to tobacco. Currently with acute exacerbation, likely in setting of infection. Appears to be vastly improved. Continue but wean steroids, continue antibiotics, nebs as above. (3) Acute kidney injury (nontraumatic): Current visit: No Status: Acute Likely pre-renal in etiology in the setting of acute illness, potential dehydration, and poor perfusion. Current creatinine improved and near baseline. Continue to hold ARB. (4) Type II diabetes mellitus, uncontrolled: Current visit: No Status: Chronic Significant initial hyperglycemia in the setting of infection and steroids. Insulin drip with D5 lactated ringer discontinued previously and patient resumed on home basal insulin dose, with initiated sliding scale coverage. Continue Glargine, Resistant scale ISS, and carb counting premeal insulin as well. NPH dosing with steroid administration discontinued in setting of mild hypoglycemia this morning with steroid decrease. Continue to monitor carefully. (5) Essential hypertension: Current visit: No Status: Chronic No longer hypotensive. Discontinued IVFs. Continue to hold ARB. Also on furosemide, reinitiated. (6) DVT prophylaxis: Current visit: No Status: Acute SC Lovenox. (7) Advance directive on file: Current visit: No Status: Acute Full code. Subjective Interval history since last seen: 68 yea old woman with a prior history significant for COPD, admitted from [facility] Emergency Department with a diagnosis of Pneumonia and Sepsis. Mrs. Pina has a past medical history significant for COPD on 2L home O2, Obesity, Osteoporosis, HTN, Depression, and anxiety. She also has documented Cognitive Impairment, as well as Insulin Dependent DM. She initially presented to her PCP's office (Dr. Mario Garcia) on Wednesday 01/17 with a reported 3 week history of worsening cough, wheezing and dyspnea without subjective fevers. Her subsequent CXR showed stable bilateral infiltrates, deemed likely chronic, and overall unchanged. She was initiated on combination of Augmentin and Azithromycin, as well as an increase in her previously prescribed prednisone taper. Despite this the patient failed to improve, and presented to the ED with reported worsening symptoms. Work-up revealed her to be in acute respiratory distress with noted tachypnea, tachycardia, hypoxia, and hypotension, with significant elevation in Lactate and SYD by labwork. Her repeat CXR was unchanged. She was admitted to the ICU for further evaluation and care. Since her initial presentation Mrs. Pina continues to appear improved and has remained off BiPAP therapy except for comfort, usually overnight. Her lactate improved significantly and nearly normalized by last check. Her dyspnea continues to improve, as does her cough. Creatinine has improved overall, and remains near baseline. Blood pressures have improved as well. Blood Sugars remain difficult to control on steroid therapy, but have improved on aggressive insulin regimen - she was mildly hypoglycemic this morning. No overnight events reported. She remains afebrile. Exam Narrative Exam Narrative: General: Patient appears chronically ill but in no acute distress, AAOX3 Neck: Supple CV: Regular, nontachycardic, S1S2. Pulmonary: diffuse wheezing resolved - now only with forced expiration and cough. Improved air entry. Mild bibasilar crackles. Abdomen: + Bowel Sounds, soft, nontender, nondistended, obese in contour Vascular: Mild lower extremity edema Psych: Normal mood and affect. Objective Objective Clinical Data: Abnormal lab results 01/25/19 01/25/19 Range/Units 06:30 06:30 WBC 12.18 H (4.4-10.8) k/cumm RBC 3.69 L (4.00-5.20) m/cumm Hgb 10.8 L (12.0-15.5) g/dL Hct 33.3 L (36.0-46.0) % RDW 15.1 H (11.7-14.6) % Absolute Neutrophils 9.50 H (1.2-6.7) k/cumm Absolute Lymphocytes 1.10 L (1.2-3.4) k/cumm Absolute Monocytes 1.07 H (0.11-0.7) k/cumm Potassium 3.2 L (3.5-5.1) mmol/L BUN 29 H (7-18) mg/dL Creatinine 1.30 H (0.55-1.02) mg/dL Calcium 7.9 L (8.5-10.1) mg/dL Vital Signs Temperature 36.1 C L 01/25/19 08:15 Temperature Source Temporal Artery Scan 01/25/19 08:15 Pulse 87 01/25/19 10:59 Pulse 82 01/25/19 05:49 Respiratory Rate 16 01/25/19 10:59 Respiratory Effort 01/25/19 08:15 Respiratory Depth Normal 01/25/19 08:15 Respiratory Pattern Normal 01/25/19 08:15 Blood Pressure 140/66 01/25/19 08:15 Blood Pressure Mean 90 01/25/19 08:15 Blood Pressure Position Supine 01/25/19 08:15 Pulse Oximetry 96 01/25/19 10:50 Oxygen Delivery Method Nasal Cannula 01/25/19 10:50 Oxygen Flow Rate 1 01/25/19 10:50 Fraction of Inspired Oxygen (FIO2) 25 01/25/19 00:15 Pain Level 0 01/25/19 08:15 Intake & Output 01/24/19 01/24/19 01/25/19 11:59 23:59 11:59 Intake Total 370 / 1645 1275 / 1645 100 / 100 Output Total 2850 / 4550 1700 / 4550 2100 / 2100 Balance -2480 / -2905 -425 / -2905 -1999 / -1999 Weight 97.2 kg Intake: IV 200 / 750 550 / 750 Oral 170 / 895 725 / 895 100 / 100 Output: Urine 2850 / 4550 1700 / 4550 2099 / 2099 Other: Urine Color Yellow Pale Straw Urine Appearance Clear Clear Urine Odor Normal Comment [place] attends for stress incontinence with coughing. [place] attends for stress incontinence with coughing. Incontinent brief worn. Stool Size Small Moderate Small Stool Characteristics Soft Formed Soft Formed Brown Brown Voiding Methods Bedside Commode Bedside Commode Bedside Commode Laboratory Results WBC 12.18 k/cumm (4.4-10.8) H 01/25/19 06:30 RBC 3.69 m/cumm (4.00-5.20) L 01/25/19 06:30 Hgb 10.8 g/dL (12.0-15.5) L 01/25/19 06:30 Hct 33.3 % (36.0-46.0) L 01/25/19 06:30 MCV 90.2 fL (80-95) 01/25/19 06:30 MCH 29.3 pg (27.0-33.0) 01/25/19 06:30 MCHC 32.4 g/dL (32.0-36.0) 01/25/19 06:30 RDW 15.1 % (11.7-14.6) H 01/25/19 06:30 Plt Count 226 x1000/uL (130-400) 01/25/19 06:30 MPV 10.3 fL (8.0-11.0) 01/25/19 06:30 Immature Gran % See Differential 01/25/19 06:30 Neutrophils % 76.0 01/25/19 06:30 Band Neutrophils % 2.0 % 01/25/19 06:30 Lymphocytes % 9.0 01/25/19 06:30 Monocytes % 8.8 01/25/19 06:30 Eosinophils % 0.0 01/25/19 06:30 Basophils % 0.0 01/25/19 06:30 Metamyelocytes % 1.0 % 01/25/19 06:30 Myelocytes % 4.0 % 01/25/19 06:30 Absolute Neutrophils 9.50 k/cumm (1.2-6.7) H 01/25/19 06:30 Absolute Lymphocytes 1.10 k/cumm (1.2-3.4) L 01/25/19 06:30 Absolute Monocytes 1.07 k/cumm (0.11-0.7) H 01/25/19 06:30 Absolute Eosinophils 0.00 k/cumm (0.0-0.7) 01/25/19 06:30 Absolute Basophils 0.00 k/cumm (0.0-0.2) 01/25/19 06:30 Differential Comment Manual differential 01/25/19 06:30 RBC Morphology Normal 01/25/19 06:30 Sodium 145 mmol/L (136-145) 01/25/19 06:30 Potassium 3.2 mmol/L (3.5-5.1) L 01/25/19 06:30 Chloride 107 mmol/L (98-107) 01/25/19 06:30 Carbon Dioxide 29.7 mmol/L (21.0-32.0) 01/25/19 06:30 Anion Gap 8.3 mmol/L (3-11) 01/25/19 06:30 BUN 29 mg/dL (7-18) H 01/25/19 06:30 Creatinine 1.30 mg/dL (0.55-1.02) H 01/25/19 06:30 Estimated GFR/1.73 m2 40.86 (mL/min/1.73m2) 01/25/19 06:30 Glucose 90 mg/dL (70-100) 01/25/19 06:30 Lactate 1.7 mmol/l (0.6-1.4) H 01/21/19 06:00 Calcium 7.9 mg/dL (8.5-10.1) L 01/25/19 06:30 Magnesium 1.8 mg/dL (1.8-2.4) 01/25/19 06:30 Total Bilirubin 0.5 mg/dL (0.2-1.0) 01/20/19 05:37 AST 15 U/L (15-37) 01/20/19 05:37 ALT 28 U/L (12-78) 01/20/19 05:37 Alkaline Phosphatase 67 U/L (46-116) 01/20/19 05:37 Troponin I < 0.02 ng/mL (0.00-0.06) 01/19/19 21:05 NT-Pro-B Natriuret Pep 167 pg/mL (-299) 01/19/19 21:05 Total Protein 6.0 g/dL (6.4-8.2) L 01/20/19 05:37 Albumin 2.6 g/dL (3.4-5.0) L 01/20/19 05:37 Urine Color Yellow (Yellow) 01/20/19 13:35 Urine Clarity Sl cloudy 01/20/19 13:35 Urine pH 5.5 (5-8) 01/20/19 13:35 Ur Specific [place] 1.025 (1.005-1.025) 01/20/19 13:35 Urine Protein 100 mg/dL (Negative) H 01/20/19 13:35 Urine Ketones Trace mg/dL (Negative) H 01/20/19 13:35 Urine Blood Large (Negative) H 01/20/19 13:35 Urine Nitrite Negative (Negative) 01/20/19 13:35 Urine Bilirubin Small (Negative) H 01/20/19 13:35 Urine Urobilinogen 0.2 EU/dL (Up TO 0.2) 01/20/19 13:35 Ur Leukocyte Esterase Negative (Negative) 01/20/19 13:35 Urine RBC >50 (0-2) H 01/20/19 13:35 Urine WBC 0-2 HPF (0-5) 01/20/19 13:35 Ur Epithelial Cells Few HPF (Negative) 01/20/19 13:35 Urine Crystals Rare amorphous HPF (Negative) 01/20/19 13:35 Urine Bacteria Moderate HPF (Negative) 01/20/19 13:35 Urine Casts 0-2 coarse granular LPF (Negative) 01/20/19 13:35 Urine Mucus Trace (Negative) 01/20/19 13:35 Ur Culture Indicated? Yes 01/20/19 13:35 Urine Glucose >=1000 mg/dL (Negative) H 01/20/19 13:35 Vancomycin Trough 8.9 ug/mL (10.0-20.0) L 01/23/19 17:03 Legionella Source (see note) 01/20/19 13:35 Legionella Reprt Status (see note) 01/20/19 13:35 Legionella Final Result (see note) 01/20/19 13:35 Ur Strep pneumoniae Ag Negative (Negative) 01/20/19 13:35
[2019-01-25] MEDS: Escitalopram 10 MG TAB PO (12:16)
--- NOTE | 2019-01-25 14:01 | PDOC.CMPRO ---
- If Service Date Differs Date of service: 01/25/19 Time of Service: 14:01 Care Management Progress Note S/O: Elly has transitioned to a Med/Surg level of care today. She is sitting up in her bed, pleasant and appropriate throughout discussion. Elly reports that her family have been in and are very supportive. No change in DC plan. A: 68 y/o female admitted 01/19/19 for Pneumonia P: Elly will return home when medically cleared; no additional anticipated services at this time. She will follow up with her PCP and plan of care as prescribed. Elly reports that her brother Brian will transport via private vehicle.
--- NOTE | 2019-01-25 14:07 | PT.INIE ---
Date of service: 01/25/19 Time of Service: 14:07 PT Notes Date: 01/25/2019 Referring: Joseph Bazan MD MD orders: COPD Precautions: Falls Inpatient Physical Therapy Evaluation Patient Profile/Admitting Diagnosis: [] PMHX: 68-year-old female admitted to the hospital on January 20 with pneumonia and sepsis, uncontrolled diabetes, acute kidney injury. Social History/Home Situation: Lives alone in an apartment locally. Apartment is on the first floor with 4 steps with a railing entering the building. Her bedroom bathroom is on the first floor. She shares a vehicle with her brother, but also uses [employer], which she takes to the [facility] 5 days/week. Current Functional Limitations: Prior to admission, she was independent with all ADLs including dressing, bathing, shopping, making her meals, and taking short trips whether with RCT or her personal vehicle. Equipment Owned/DME: Did not require assistive devices with ambulation and she has grab bars around her tub. Subjective: Elly states she is feeling much better compared to 5 days ago. She complains of shortness of breath with activity. Objective: [] General Observation: Pleasant, cooperative in no abnormal pain noted Mental Status: Alert and oriented x3 Pain: No complaints of pain offered Vital Signs: Resting pulse is 101 bpm, O2 sat 97 % and respiratory rate is 18 breaths/min. Following ambulation her pulse is 120 bpm, O2 sat at 90% and respiratory rate is 24 breaths/min. 3 minutes after activity her pulse is 103 bpm and O2 sat is 92%. ROM: Has full pain-free functional range of motion throughout without pain on movement Strength: Has full motor control and her strength is generally rated +4/5 Sensation: Intact to light touch and proprioception. Reflexes were not tested. No ataxia noted Bed Mobility/Transfers: Independent with assuming the supine sitting standing positions, but with some effort, particularly with supine to sitting and vice versa. Gait: Ambulate approximately 50 feet with a wheeled walker with minimal contact guarding. Balance: Bonilla balance test was performed and she scored a 45/56. Score 45 or less indicates a fall risk. Static Sitting: Normal Dynamic Sitting: Normal Static Standing: Good Dynamic Standing: Poor Special Tests: Mobility Limitations Standardized Measure [facility]-PAC 6 clicks Basic Mobility Inpatient Short Form: Raw Score: 17 standardized Score: 42.13 CMS Score: 50.57 CMS Modifier: CK Informed Consent/Education: Patient instructed in purpose of PT consult and plan of care. Assessment: Patient is a 68 year old female referred to physical therapy services with the diagnosis of COPD. Patient presents with clinical signs and symptoms consistent with this diagnosis, as demonstrated by the following impairment level findings: Generalized weakness. Impairments are contributing to the following functional limitations: Requires standby supervision with her bed mobility, poor exercise tolerance with her gait distance limited to 50 feet, and generalized weakness at +4/5, and a borderline fall risk. AMPAC score. Patient is assessed as a Moderate 26814 complexity based on the following: History: See comorbidities and social history Examination: See above for functional limitations and impairments Presentation: Evolving Decision Making: Moderate complexity based on her clinical findings Goals: Goals X1 week 1. Supine-Sit independent 2. Sit-Supine independent 3. Sit-Stand [] 4. Stand-Sit [] 5. Bed-Chair [] 6. Chair-Bed [] 7. Gait ambulating initially with a wheeled walker, greater than 150 feet 8. Stairs- independent 9. Independent with home exercise program [] 10. Balance -improve her Bonilla balance test to 48/56 to minimize fall risk Plan of Care/Treatment Plan: 1-2x/day, 7 days/week x 1 week. Plan of care has been reviewed with the DROP WIRE OPERATOR providing the service under Physical Therapy direction. Initiate Physical Therapy intervention for strengthening, bed mobility, transfers, gait, stairs, balance training, use of assistive device. DISCHARGE RECOMMENDATION: Patient should be able to return to her home environment if she increases her strength over the next day or 2. Recommend OT evaluation to assess her ADLs. TREATMENT CODE/TIME: 9716 2 x 1/40 minutes Disclaimer: This note was created using [email or web address] voice recognition software. It was reviewed for major content. However, there may be multiple small discrepancies and errors due to the voice recognition aspects of the software.
--- NOTE | 2019-01-25 14:27 | IN_ITS ---
Date of service: 01/25/19 Time of Service: 14:07 PT Notes Date: 01/25/2019 Referring: Joseph Bazan MD MD orders: COPD Precautions: Falls Inpatient Physical Therapy Evaluation Patient Profile/Admitting Diagnosis: [] PMHX: 68-year-old female admitted to the hospital on January 20 with pneumonia and sepsis, uncontrolled diabetes, acute kidney injury. Social History/Home Situation: Lives alone in an apartment locally. Apartment is on the first floor with 4 steps with a railing entering the building. Her bedroom bathroom is on the first floor. She shares a vehicle with her brother, but also uses RCT, which she takes to the [facility] 5 days/week. Current Functional Limitations: Prior to admission, she was independent with all ADLs including dressing, bathing, shopping, making her meals, and taking short trips whether with [employer] or her personal vehicle. Equipment Owned/DME: Did not require assistive devices with ambulation and she has grab bars around her tub. Subjective: Elly states she is feeling much better compared to 5 days ago. She complains of shortness of breath with activity. Objective: [] General Observation: Pleasant, cooperative in no abnormal pain noted Mental Status: Alert and oriented x3 Pain: No complaints of pain offered Vital Signs: Resting pulse is 101 bpm, O2 sat 97 % and respiratory rate is 18 breaths/min. Following ambulation her pulse is 120 bpm, O2 sat at 90% and respiratory rate is 24 breaths/min. 3 minutes after activity her pulse is 103 bpm and O2 sat is 92%. ROM: Has full pain-free functional range of motion throughout without pain on movement Strength: Has full motor control and her strength is generally rated +4/5 Sensation: Intact to light touch and proprioception. Reflexes were not tested. No ataxia noted Bed Mobility/Transfers: Independent with assuming the supine sitting standing positions, but with some effort, particularly with supine to sitting and vice versa. Gait: Ambulate approximately 50 feet with a wheeled walker with minimal contact guarding. Balance: Bonilla balance test was performed and she scored a 45/56. Score 45 or less indicates a fall risk. Static Sitting: Normal Dynamic Sitting: Normal Static Standing: Good Dynamic Standing: Poor Special Tests: Mobility Limitations Standardized Measure [facility]-PAC 6 clicks Basic Mobility Inpatient Short Form: Raw Score: 17 standardized Score: 42.13 CMS Score: 50.57 CMS Modifier: CK Informed Consent/Education: Patient instructed in purpose of PT consult and plan of care. Assessment: Patient is a 68 year old female referred to physical therapy services with the diagnosis of COPD. Patient presents with clinical signs and symptoms consistent with this diagnosis, as demonstrated by the following impairment level findings: Generalized weakness. Impairments are contributing to the following functional limitations: Requires standby supervision with her bed mobility, poor exercise tolerance with her gait distance limited to 50 feet, and generalized weakness at +4/5, and a borderline fall risk. AMPAC score. Patient is assessed as a Moderate 53464 complexity based on the following: History: See comorbidities and social history Examination: See above for functional limitations and impairments Presentation: Evolving Decision Making: Moderate complexity based on her clinical findings Goals: Goals X1 week 1. Supine-Sit independent 2. Sit-Supine independent 3. Sit-Stand [] 4. Stand-Sit [] 5. Bed-Chair [] 6. Chair-Bed [] 7. Gait ambulating initially with a wheeled walker, greater than 150 feet 8. Stairs- independent 9. Independent with home exercise program [] 10. Balance -improve her Bonilla balance test to 48/56 to minimize fall risk Plan of Care/Treatment Plan: 1-2x/day, 7 days/week x 1 week. Plan of care has been reviewed with the RETAIL SOLAR ADVISOR providing the service under Physical Therapy direction. Initiate Physical Therapy intervention for strengthening, bed mobility, transfers, gait, stairs, balance training, use of assistive device. DISCHARGE RECOMMENDATION: Patient should be able to return to her home environment if she increases her strength over the next day or 2. Recommend OT evaluation to assess her ADLs. TREATMENT CODE/TIME: 9716 2 x 1/40 minutes Disclaimer: This note was created using [email or web address] voice recognition software. It was reviewed for major content. However, there may be multiple small discrepancies and errors due to the voice recognition aspects of the software.
[2019-01-25] MEDS: Normal Saline Flush 10 ML SYR IVP ×2 (16:38→22:51)
[2019-01-25 17:06] LABS: Vancomycin, Trough 20.4 ug/mL (10.0-20.0)
[2019-01-25] MEDS: VANCOMYCIN 1,000 MG in Normal Saline 250 ML 166.667 MG IVPB (19:58)
[2019-01-25] MEDS: Donepezil 5 MG TAB PO (22:51)
[2019-01-25] MEDS: Simvastatin 40 MG TAB PO (22:51)
[2019-01-25] MEDS: Insulin Glargine 300 UNITS/3 ML PEN 70 UNITS SC (22:52)
[2019-01-25] MEDS: levoFLOXacin 750 MG/150 ML BAG 100 MG IVPB (23:04)
[2019-01-26] VITALS (7 sets, daily range): BP systolic 107–134; BP diastolic 68–84; PULSE 70–96; RESP 4–20; TEMP 36–36.3; O2SAT 92–98
[2019-01-26] MEDS: PIPERACILLIN/TAZO 3.375 GM in Normal Saline 50 ML IVPB ×3 (02:04→18:16)
[2019-01-26] MEDS: Normal Saline Flush 10 ML SYR IVP ×7 (02:06→23:28)
[2019-01-26] MEDS: Albuterol/Ipratropium 3 ML UPD VIAL UPD ×5 (06:11→21:49)
[2019-01-26 07:00] LABS: Abs Immature Grans 0.78 k/cumm (0.0-0.09); HGB 12.4 g/dL (12.0-15.5); Mean Corp. HGB Concentration 33.5 g/dL (32.0-36.0); Mean Corpuscular Hemoglobin 30.2 pg (27.0-33.0); Mean Corpuscular Volume 90.2 fL (80-95); Mean Platelet Volume 10.2 fL (8.0-11.0); Platelet Count 247 x1000/uL (130-400); RBC Distribution Width 15.3 % (11.7-14.6); White Blood Cell Count 13.69 k/cumm (4.4-10.8)
[2019-01-26 07:13] LABS: Anion Gap 5.9 mmol/L (3-11); BUN 36 mg/dL (7-18); CO2 33.1 mmol/L (21.0-32.0); CREATININE 1.13 mg/dL (0.55-1.02); Calcium 9.1 mg/dL (8.5-10.1); Chloride 102 mmol/L (98-107); Estimated GFR 48.03 (mL/min/1.73m2); Glucose 122 mg/dL (70-100); Magnesium 2.4 mg/dL (1.8-2.4); Potassium 4.4 mmol/L (3.5-5.1); Sodium 141 mmol/L (136-145)
[2019-01-26 07:17] LABS: Absolute Lymphocyte Count 1.37 k/cumm (1.2-3.4); Absolute Neutrophil Count 10.54 k/cumm (1.2-6.7); Diff Comment Manual Differential
[2019-01-26 07:18] LABS: RBC Morphology Normal
[2019-01-26] MEDS: Budesonide 0.5 MG/2 ML UPD VIAL UPD ×2 (07:24→20:40)
[2019-01-26] MEDS: Insulin Aspart 300 UNITS/3 ML PEN SC ×6 (08:57→21:51)
[2019-01-26] MEDS: Enoxaparin 40 MG/0.4 ML SYR SC (08:58)
[2019-01-26] MEDS: Ketoconazole 2% CREAM 15 GM TUBE TP ×2 (08:58→20:42)
[2019-01-26] MEDS: methylPREDNISolone SUCC 40 MG VIAL IVP ×2 (08:59→20:40)
[2019-01-26] MEDS: Benzonatate 200 MG CAP PO ×3 (08:59→20:41)
[2019-01-26] MEDS: Furosemide 20 MG TAB PO ×2 (08:59→15:58)
[2019-01-26] MEDS: Bisacodyl 5 MG TABEC PO (09:00)
[2019-01-26] MEDS: Pantoprazole 20 MG TABCR 40 MG PO (09:00)
[2019-01-26] MEDS: guaiFENesin 600 MG TABCR 1200 MG PO ×2 (09:00→20:41)
[2019-01-26] MEDS: VANCOMYCIN 1,000 MG in Normal Saline 250 ML 166.67 MG IVPB ×2 (10:24→23:27)
--- NOTE | 2019-01-26 11:29 | PT.INTREAT ---
Date of service: 01/26/19 Time of Service: 11:29 PT Notes Inpatient Physical Therapy Treatment Note [facility] Date: 01/26/19 SUBJECTIVE: Elly is agreeable to participating in PT. OBJECTIVE: PAIN: No c/o pain BED MOBILITY/TRANSFERS Sit-stand: S Stand-sit: S GAIT Assistive Device: FWW Weight bearing: Full Assist: SBA Distance: 75' x2 Deviation: SOB, standing rest x3 THEREX: Patient completed a seated LE strengthening program, as per flow sheet. ASSESSMENT: Patient tolerated session with c/o SOB and increased fatigue with activity. She would benefit from continued gait training as well as general conditioning for improved mobility and activity tolerance. PLAN: Continue with PT's POC TREATMENT CODE/TIME: 25 minutes; 78321, [id number]
[2019-01-26] MEDS: Escitalopram 10 MG TAB PO (12:13)
--- NOTE | 2019-01-26 13:41 | PDOC.CMPRO ---
Care Management Progress Note S/O: Elly remains pleasant in interaction. She continues to make gains towards discharge and shared no concerns at this time. CM will continue to follow. A: 68 y/o female admitted 01/19/19 for Pneumonia P: Elly will return home when medically cleared; no additional anticipated services at this time. She will resume day time services at [facility] and follow up with her PCP and plan of care as prescribed. Elly reports that her brother Brian will transport via private vehicle.
--- NOTE | 2019-01-26 14:31 | W.PM.PROGNOT ---
Date of Service Date of service: 01/26/19 Time of Service: 14:31 Assessment and Plan (1) Sepsis: Current visit: No Status: Acute Sepsis due to CAP (though CXR is negative, clinical suspicion is high). Finish 1 week of vancomycin, PIP-Tazo, and renally dosed Levofloxacin (d/c tomorrow am). Blood cultures with NG X120 hours. Sputum culture likely contaminant. I am not changing her dose of steroids today as still quite bronchospastic. (2) COPD (chronic obstructive pulmonary disease): Current visit: No Status: Chronic Significant underlying COPD on home O2. Patient with significant second hand exposure to tobacco. Currently with acute exacerbation, likely in setting of infection. Improved - as above. (3) Acute kidney injury (nontraumatic): Current visit: No Status: Acute Likely pre-renal in etiology in the setting of acute illness, dehydration, and sepsis. Current creatinine improved and near baseline. Continue to hold ARB. (4) Type II diabetes mellitus, uncontrolled: Current visit: No Status: Chronic Significant initial hyperglycemia in the setting of infection and steroids. No change to current regimen (the patient is on basal bolus insulin in addition to NPH to be timed with steroids). (5) Essential hypertension: Current visit: No Status: Chronic BP's at goal. Continue to hold ARB. Continue Lasix (6) DVT prophylaxis: Current visit: No Status: Acute SC Lovenox. (7) Advance directive on file: Current visit: No Status: Acute Full code. Subjective Interval history since last seen: Ms Pina states she is feeling a little bit better. The cough persists, but overall the breathing and the wheezing are a little better. She denies dizziness, chest pain, nausea, vomiting. States she didn't sleep well last night because of the cough. She does not normally take a sleeping aid. Exam Narrative Exam Narrative: General: very pleasant obses female, on 1L of O2 when I came to see her, coughing/wheezing audibly HEENT: EOMI, MMM Heart: RRR, no m/r/g Lungs: expiratory wheezing B GI: abdomen is soft, nontender, nondistended Extremities: no e/c/c BLE's, 1+ B pedal pulses Objective Objective Clinical Data: Abnormal lab results 04/05/19 04/06/19 04/06/19 Range/Units 16:33 06:20 06:20 WBC 13.69 H (4.4-10.8) k/cumm RDW 15.3 H (11.7-14.6) % Absolute Neutrophils 10.54 H (1.2-6.7) k/cumm Absolute Monocytes 1.10 H (0.11-0.7) k/cumm Carbon Dioxide 33.1 H (21.0-32.0) mmol/L BUN 36 H (7-18) mg/dL Creatinine 1.13 H (0.55-1.02) mg/dL Glucose 122 H (70-100) mg/dL Vancomycin Trough 20.4 H* (10.0-20.0) ug/mL Vital Signs Temperature 36.0 C L 01/26/19 07:21 Temperature Source Tympanic 01/26/19 07:21 Pulse 76 01/26/19 07:21 Pulse Rhythm Regular 01/26/19 10:48 Pulse 75 01/25/19 07:53 Respiratory Rate 18 01/26/19 07:21 Respiratory Effort 01/26/19 10:48 Respiratory Depth Normal 01/26/19 10:48 Respiratory Pattern Normal 01/26/19 10:48 Blood Pressure 133/81 01/26/19 07:21 Blood Pressure Mean 96 01/25/19 10:01 Blood Pressure Position Supine 01/25/19 08:15 Pulse Oximetry 94 L 01/26/19 07:25 Oxygen Delivery Method Nasal Cannula 01/26/19 07:25 Oxygen Flow Rate 1 01/26/19 07:25 Fraction of Inspired Oxygen (FIO2) 25 01/25/19 00:15 Pain Level 0 01/25/19 14:25 Comment 01/25/19 15:42 Intake & Output 01/25/19 01/26/19 01/26/19 23:59 11:59 23:59 Intake Total 710 / 860 900 / 1390 490 / 1390 Output Total 1250 / 3350 1500 / 1500 Balance -540 / -2490 -600 / -110 490 / -110 Weight 97.2 kg Intake: IV 350 / 400 450 / 700 250 / 700 Oral 360 / 460 450 / 690 240 / 690 Output: Urine 1250 / 3350 1500 / 1500 Other: Urine Color Yellow Yellow Urine Appearance Clear Clear Urine Odor Normal Stool Size Small Moderate Stool Characteristics Soft Soft Formed Formed Voiding Methods Bedside Commode Bedside Commode Laboratory Results WBC 13.69 k/cumm (4.4-10.8) H 01/26/19 06:20 RBC 4.10 m/cumm (4.00-5.20) 01/26/19 06:20 Hgb 12.4 g/dL (12.0-15.5) 01/26/19 06:20 Hct 37.0 % (36.0-46.0) 01/26/19 06:20 MCV 90.2 fL (80-95) 01/26/19 06:20 MCH 30.2 pg (27.0-33.0) 01/26/19 06:20 MCHC 33.5 g/dL (32.0-36.0) 01/26/19 06:20 RDW 15.3 % (11.7-14.6) H 01/26/19 06:20 Plt Count 247 x1000/uL (130-400) 01/26/19 06:20 MPV 10.2 fL (8.0-11.0) 01/26/19 06:20 Immature Gran % See Differential 01/26/19 06:20 Neutrophils % 70.0 01/26/19 06:20 Band Neutrophils % 7.0 % 01/26/19 06:20 Lymphocytes % 10.0 01/26/19 06:20 Monocytes % 8.0 01/26/19 06:20 Eosinophils % 0.0 01/26/19 06:20 Basophils % 0.0 01/26/19 06:20 Metamyelocytes % 5.0 % 01/26/19 06:20 Myelocytes % 4.0 % 01/25/19 06:30 Absolute Neutrophils 10.54 k/cumm (1.2-6.7) H 01/26/19 06:20 Absolute Lymphocytes 1.37 k/cumm (1.2-3.4) 01/26/19 06:20 Absolute Monocytes 1.10 k/cumm (0.11-0.7) H 01/26/19 06:20 Absolute Eosinophils 0.00 k/cumm (0.0-0.7) 01/26/19 06:20 Absolute Basophils 0.00 k/cumm (0.0-0.2) 01/26/19 06:20 Differential Comment Manual differential 01/26/19 06:20 RBC Morphology Normal 01/26/19 06:20 Sodium 141 mmol/L (136-145) 01/26/19 06:20 Potassium 4.4 mmol/L (3.5-5.1) D 01/26/19 06:20 Chloride 102 mmol/L (98-107) 01/26/19 06:20 Carbon Dioxide 33.1 mmol/L (21.0-32.0) H 01/26/19 06:20 Anion Gap 5.9 mmol/L (3-11) 01/26/19 06:20 BUN 36 mg/dL (7-18) H 01/26/19 06:20 Creatinine 1.13 mg/dL (0.55-1.02) H 01/26/19 06:20 Estimated GFR/1.73 m2 48.03 (mL/min/1.73m2) 01/26/19 06:20 Glucose 122 mg/dL (70-100) H 01/26/19 06:20 Lactate 1.7 mmol/l (0.6-1.4) H 01/21/19 06:00 Calcium 9.1 mg/dL (8.5-10.1) 01/26/19 06:20 Magnesium 2.4 mg/dL (1.8-2.4) 01/26/19 06:20 Total Bilirubin 0.5 mg/dL (0.2-1.0) 01/20/19 05:37 AST 15 U/L (15-37) 01/20/19 05:37 ALT 28 U/L (12-78) 01/20/19 05:37 Alkaline Phosphatase 67 U/L (46-116) 01/20/19 05:37 Troponin I < 0.02 ng/mL (0.00-0.06) 01/19/19 21:05 NT-Pro-B Natriuret Pep 167 pg/mL (-299) 01/19/19 21:05 Total Protein 6.0 g/dL (6.4-8.2) L 01/20/19 05:37 Albumin 2.6 g/dL (3.4-5.0) L 01/20/19 05:37 Urine Color Yellow (Yellow) 01/20/19 13:35 Urine Clarity Sl cloudy 01/20/19 13:35 Urine pH 5.5 (5-8) 01/20/19 13:35 Ur Specific [place] 1.025 (1.005-1.025) 01/20/19 13:35 Urine Protein 100 mg/dL (Negative) H 01/20/19 13:35 Urine Ketones Trace mg/dL (Negative) H 01/20/19 13:35 Urine Blood Large (Negative) H 01/20/19 13:35 Urine Nitrite Negative (Negative) 01/20/19 13:35 Urine Bilirubin Small (Negative) H 01/20/19 13:35 Urine Urobilinogen 0.2 EU/dL (Up TO 0.2) 01/20/19 13:35 Ur Leukocyte Esterase Negative (Negative) 01/20/19 13:35 Urine RBC >50 (0-2) H 01/20/19 13:35 Urine WBC 0-2 HPF (0-5) 01/20/19 13:35 Ur Epithelial Cells Few HPF (Negative) 01/20/19 13:35 Urine Crystals Rare amorphous HPF (Negative) 01/20/19 13:35 Urine Bacteria Moderate HPF (Negative) 01/20/19 13:35 Urine Casts 0-2 coarse granular LPF (Negative) 01/20/19 13:35 Urine Mucus Trace (Negative) 01/20/19 13:35 Ur Culture Indicated? Yes 01/20/19 13:35 Urine Glucose >=1000 mg/dL (Negative) H 01/20/19 13:35 Vancomycin Trough 20.4 ug/mL (10.0-20.0) H* 01/25/19 16:33 Legionella Source (see note) 01/20/19 13:35 Legionella Reprt Status (see note) 01/20/19 13:35 Legionella Final Result (see note) 01/20/19 13:35 Ur Strep pneumoniae Ag Negative (Negative) 01/20/19 13:35
[2019-01-26] MEDS: Donepezil 5 MG TAB PO (21:48)
[2019-01-26] MEDS: Insulin Glargine 300 UNITS/3 ML PEN 70 UNITS SC (21:49)
[2019-01-26] MEDS: levoFLOXacin 750 MG/150 ML BAG 100 MG IVPB (21:49)
[2019-01-26] MEDS: Simvastatin 40 MG TAB PO (21:49)
[2019-01-26] MEDS: Acetaminophen 500 MG TAB 1000 MG PO (23:28)
[2019-01-26] MEDS: guaiFENesin/D-METHORPHAN HB 5 ML CUP 10 ML PO ×2 (23:28)
[2019-01-27] VITALS (8 sets, daily range): BP systolic 106–131; BP diastolic 67–81; PULSE 69–103; RESP 1–20; TEMP 35.9–36.8; O2SAT 91–97
[2019-01-27] MEDS: PIPERACILLIN/TAZO 3.375 GM in Normal Saline 50 ML IVPB ×2 (02:12→09:42)
[2019-01-27] MEDS: Normal Saline Flush 10 ML SYR IVP ×2 (06:26→08:52)
[2019-01-27] MEDS: Albuterol/Ipratropium 3 ML UPD VIAL UPD ×3 (06:26→18:15)
[2019-01-27] MEDS: Budesonide 0.5 MG/2 ML UPD VIAL UPD ×2 (07:16→20:07)
--- NOTE | 2019-01-27 08:07 | PDOC.CMPRO ---
Care Management Progress Note S/O: Elly remains pleasant in interaction. Her steroids will begin to be tapered as she is showing signs of respiratory improvement. She continues to be closely monitored for SYD (near baseline) and DM in setting of infection and steroids. Elly states she has home 02 through [employer] and utilizes it mostly with activity per her report. CM will continue to follow. A: 68 y/o female admitted 01/19/19 for Pneumonia P: Elly will return home when medically cleared; no additional anticipated services at this time. She will resume day time services at [facility], home O2 and follow up with her PCP and plan of care as prescribed. Elly reports that her brother Brian will transport via private vehicle.
--- NOTE | 2019-01-27 08:10 | CMPROGNOTE_ITS ---
Care Management Progress Note S/O: Elly remains pleasant in interaction. Her steroids will begin to be tapered as she is showing signs of respiratory improvement. She continues to be closely monitored for SYD (near baseline) and DM in setting of infection and steroids. Elly states she has home 02 through [employer] and utilizes it mostly with activity per her report. CM will continue to follow. A: 68 y/o female admitted 01/19/19 for Pneumonia P: Elly will return home when medically cleared; no additional anticipated services at this time. She will resume day time services at [facility], home O2 and follow up with her PCP and plan of care as prescribed. Elly reports that her brother Brian will transport via private vehicle.
[2019-01-27] MEDS: Benzonatate 200 MG CAP PO ×3 (08:49→20:07)
[2019-01-27] MEDS: Enoxaparin 40 MG/0.4 ML SYR SC (08:50)
[2019-01-27] MEDS: Bisacodyl 5 MG TABEC PO (08:50)
[2019-01-27] MEDS: Pantoprazole 20 MG TABCR 40 MG PO (08:50)
[2019-01-27] MEDS: guaiFENesin 600 MG TABCR 1200 MG PO ×2 (08:50→20:07)
[2019-01-27] MEDS: Insulin Aspart 300 UNITS/3 ML PEN SC ×6 (08:51→21:35)
[2019-01-27] MEDS: methylPREDNISolone SUCC 40 MG VIAL IVP (08:51)
[2019-01-27] MEDS: Ketoconazole 2% CREAM 15 GM TUBE TP ×2 (09:02→20:07)
[2019-01-27] MEDS: Furosemide 20 MG TAB PO ×2 (09:02→15:42)
[2019-01-27 09:24] LABS: Abs Immature Grans 0.78 k/cumm (0.0-0.09); HCT 38.6 % (36.0-46.0); HGB 12.8 g/dL (12.0-15.5); Mean Corp. HGB Concentration 33.2 g/dL (32.0-36.0); Mean Corpuscular Hemoglobin 30.1 pg (27.0-33.0); Mean Corpuscular Volume 90.8 fL (80-95); Mean Platelet Volume 10.2 fL (8.0-11.0); Platelet Count 255 x1000/uL (130-400); RBC 4.25 m/cumm (4.00-5.20); RBC Distribution Width 15.3 % (11.7-14.6)
[2019-01-27 09:49] LABS: Absolute Lymphocyte Count 1.38 k/cumm (1.2-3.4); Absolute Monocyte Count 0.83 k/cumm (0.11-0.7)
[2019-01-27 09:50] LABS: Diff Comment Manual Differential; RBC Morphology Normal
[2019-01-27 10:05] LABS: Anion Gap 7.6 mmol/L (3-11); BUN 43 mg/dL (7-18); CO2 32.4 mmol/L (21.0-32.0); CREATININE 1.31 mg/dL (0.55-1.02); Calcium 8.8 mg/dL (8.5-10.1); Chloride 100 mmol/L (98-107); Glucose 192 mg/dL (70-100); Magnesium 2.3 mg/dL (1.8-2.4); Potassium 3.8 mmol/L (3.5-5.1); Sodium 140 mmol/L (136-145)
--- NOTE | 2019-01-27 11:59 | PT.INTREAT ---
Date of service: 01/27/19 Time of Service: 11:59 PT Notes Inpatient Physical Therapy Treatment Note [facility] Date: 01/27/19 PRECAUTIONS: Fall SUBJECTIVE: Elly reports that she is feeling a little better today. She is agreeable to participating in PT. OBJECTIVE: PAIN: No complaints of pain BED MOBILITY/TRANSFERS Sit?supine: I Sit-stand: I Stand-sit: I GAIT Assistive Device: FWW; No AD Weight bearing: Full Assist: S with FWW; SBA without AD Distance: 100' with FWW; 100' without AD Deviation: Standing rest x2 without AD THEREX: Patient performed functional sit-to-and exercise 2 x 5, with complaints of SOB. STAIRS: Up/down 3x4 and 2x6 using the rails step to pattern, independently. ASSESSMENT: Patient tolerated session with complaints of increased SOB with activity as well as increased fatigue. Patient was able to tolerate a progression in gait distance without use of an assistive device, requiring SBA and standing rest x2. Patient would benefit from continued gait training as well as general conditioning for improved activity tolerance and mobility. PLAN: Continue with PT's POC TREATMENT CODE/TIME: 30 minutes; 26635 x2
[2019-01-27] MEDS: Escitalopram 10 MG TAB PO (12:05)
[2019-01-27] MEDS: VANCOMYCIN 1,000 MG in Normal Saline 250 ML 166.67 MG IVPB (13:46)
--- NOTE | 2019-01-27 16:31 | PGE_ITS ---
Date of Service Date of service: 01/27/19 Time of Service: 16:23 Assessment and Plan (1) Sepsis: Current visit: No Status: Acute Sepsis due to CAP (though CXR is negative, clinical suspicion is high). Finished 1 week of of abx. Blood cultures with NG X120 hours. Sputum culture likely contaminant. Impoved significantly - taper steroids. (2) COPD (chronic obstructive pulmonary disease): Current visit: No Status: Chronic Significant underlying COPD on home O2. Patient with second hand exposure to tobacco. Currently with acute exacerbation, likely in setting of infection. Improved - as above. (3) Acute kidney injury (nontraumatic): Current visit: No Status: Acute Likely pre-renal in etiology in the setting of acute illness, dehydration, and sepsis. Current creatinine improved and near baseline. Continue to hold ARB. (4) Type II diabetes mellitus, uncontrolled: Current visit: No Status: Chronic Significant initial hyperglycemia in the setting of infection and steroids. Start to taper lantus as the steroids are being tapered as well. Interestingly, I cannot find the NPH in her medication list - I do not feel she needs it at this time. (5) Essential hypertension: Current visit: No Status: Chronic BP's at goal. Continue to hold ARB. Continue Lasix (6) DVT prophylaxis: Current visit: No Status: Acute SC Lovenox. (7) Advance directive on file: Current visit: No Status: Acute Full code. Subjective Interval history since last seen: States she feels a lot better. The breathing is better. Denies dizziness, chest pain, shortness of breath, nausea, vomiting. When I saw her, she was on room air. Exam Narrative Exam Narrative: General: very pleasant obese female, NAD, A&Ox3 HEENT: EOMI, MMM Heart: RRR, no m/r/g Lungs: Nearly completely clear to auscultation B. GI: abdomen is soft, nontender, nondistended Extremities: no e/c/c BLE's, 1+ B pedal pulses Objective Objective Clinical Data: Abnormal lab results 01/27/19 01/27/19 Range/Units 06:35 09:40 WBC 13.80 H (4.4-10.8) k/cumm RDW 15.3 H (11.7-14.6) % Absolute Neutrophils 10.90 H (1.2-6.7) k/cumm Absolute Monocytes 0.83 H (0.11-0.7) k/cumm Carbon Dioxide 32.4 H (21.0-32.0) mmol/L BUN 43 H (7-18) mg/dL Creatinine 1.31 H (0.55-1.02) mg/dL Glucose 192 H (70-100) mg/dL Vital Signs Temperature 36.7 C 01/27/19 15:52 Temperature Source Tympanic 01/27/19 15:52 Pulse 78 01/27/19 15:52 Pulse Rhythm Regular 01/27/19 10:26 Pulse 75 01/25/19 07:53 Respiratory Rate 18 01/27/19 15:52 Respiratory Effort 01/27/19 10:26 Respiratory Depth Normal 01/27/19 10:26 Respiratory Pattern Normal 01/27/19 10:26 Blood Pressure 130/69 01/27/19 15:52 Blood Pressure Mean 96 01/25/19 10:01 Blood Pressure Position Supine 01/25/19 08:15 Pulse Oximetry 93 L 01/27/19 15:52 Oxygen Delivery Method Room Air 01/27/19 15:52 Oxygen Flow Rate 0 01/27/19 15:52 Fraction of Inspired Oxygen (FIO2) 25 01/25/19 00:15 Pain Level 3 01/26/19 23:28 Comment 01/27/19 03:10 Intake & Output 01/26/19 01/27/19 01/27/19 23:59 11:59 23:59 Intake Total 1220 / 2120 940 / 1430 490 / 1430 Output Total 1550 / 3050 1550 / 1550 Balance -330 / -930 -610 / -120 490 / -120 Weight 97.7 kg Intake: IV 500 / 950 300 / 350 50 / 350 Oral 720 / 1170 640 / 1080 440 / 1080 Output: Urine 1550 / 3050 1550 / 1550 Other: Urine Color Light [place] Yellow Urine Appearance Clear Clear Urine Odor None Normal Comment pt was also incontinent of large amount Stool Size Small Large Stool Characteristics Soft Soft Formed Formed Brown Voiding Methods Bedside Commode Bedside Commode Diaper Incontinent Laboratory Results WBC 13.80 k/cumm (4.4-10.8) H 01/27/19 06:35 RBC 4.25 m/cumm (4.00-5.20) 01/27/19 06:35 Hgb 12.8 g/dL (12.0-15.5) 01/27/19 06:35 Hct 38.6 % (36.0-46.0) 01/27/19 06:35 MCV 90.8 fL (80-95) 01/27/19 06:35 MCH 30.1 pg (27.0-33.0) 01/27/19 06:35 MCHC 33.2 g/dL (32.0-36.0) 01/27/19 06:35 RDW 15.3 % (11.7-14.6) H 01/27/19 06:35 Plt Count 255 x1000/uL (130-400) 01/27/19 06:35 MPV 10.2 fL (8.0-11.0) 01/27/19 06:35 Immature Gran % See Differential 01/27/19 06:35 Neutrophils % 76.0 01/27/19 06:35 Band Neutrophils % 3.0 % 01/27/19 06:35 Lymphocytes % 10.0 01/27/19 06:35 Monocytes % 6.0 01/27/19 06:35 Eosinophils % 0.0 01/27/19 06:35 Basophils % 0.0 01/27/19 06:35 Metamyelocytes % 5.0 % 01/27/19 06:35 Myelocytes % 4.0 % 01/25/19 06:30 Absolute Neutrophils 10.90 k/cumm (1.2-6.7) H 01/27/19 06:35 Absolute Lymphocytes 1.38 k/cumm (1.2-3.4) 01/27/19 06:35 Absolute Monocytes 0.83 k/cumm (0.11-0.7) H 01/27/19 06:35 Absolute Eosinophils 0.00 k/cumm (0.0-0.7) 01/27/19 06:35 Absolute Basophils 0.00 k/cumm (0.0-0.2) 01/27/19 06:35 Differential Comment Manual differential 01/27/19 06:35 RBC Morphology Normal 01/27/19 06:35 Sodium 140 mmol/L (136-145) 01/27/19 09:40 Potassium 3.8 mmol/L (3.5-5.1) 01/27/19 09:40 Chloride 100 mmol/L (98-107) 01/27/19 09:40 Carbon Dioxide 32.4 mmol/L (21.0-32.0) H 01/27/19 09:40 Anion Gap 7.6 mmol/L (3-11) 01/27/19 09:40 BUN 43 mg/dL (7-18) H 01/27/19 09:40 Creatinine 1.31 mg/dL (0.55-1.02) H 01/27/19 09:40 Estimated GFR/1.73 m2 40.50 (mL/min/1.73m2) 01/27/19 09:40 Glucose 192 mg/dL (70-100) H 01/27/19 09:40 Lactate 1.7 mmol/l (0.6-1.4) H 01/21/19 06:00 Calcium 8.8 mg/dL (8.5-10.1) 01/27/19 09:40 Magnesium 2.3 mg/dL (1.8-2.4) 01/27/19 09:40 Total Bilirubin 0.5 mg/dL (0.2-1.0) 01/20/19 05:37 AST 15 U/L (15-37) 01/20/19 05:37 ALT 28 U/L (12-78) 01/20/19 05:37 Alkaline Phosphatase 67 U/L (46-116) 01/20/19 05:37 Troponin I < 0.02 ng/mL (0.00-0.06) 01/19/19 21:05 NT-Pro-B Natriuret Pep 167 pg/mL (-299) 01/19/19 21:05 Total Protein 6.0 g/dL (6.4-8.2) L 01/20/19 05:37 Albumin 2.6 g/dL (3.4-5.0) L 01/20/19 05:37 Urine Color Yellow (Yellow) 01/20/19 13:35 Urine Clarity Sl cloudy 01/20/19 13:35 Urine pH 5.5 (5-8) 01/20/19 13:35 Ur Specific [place] 1.025 (1.005-1.025) 01/20/19 13:35 Urine Protein 100 mg/dL (Negative) H 01/20/19 13:35 Urine Ketones Trace mg/dL (Negative) H 01/20/19 13:35 Urine Blood Large (Negative) H 01/20/19 13:35 Urine Nitrite Negative (Negative) 01/20/19 13:35 Urine Bilirubin Small (Negative) H 01/20/19 13:35 Urine Urobilinogen 0.2 EU/dL (Up TO 0.2) 01/20/19 13:35 Ur Leukocyte Esterase Negative (Negative) 01/20/19 13:35 Urine RBC >50 (0-2) H 01/20/19 13:35 Urine WBC 0-2 HPF (0-5) 01/20/19 13:35 Ur Epithelial Cells Few HPF (Negative) 01/20/19 13:35 Urine Crystals Rare amorphous HPF (Negative) 01/20/19 13:35 Urine Bacteria Moderate HPF (Negative) 01/20/19 13:35 Urine Casts 0-2 coarse granular LPF (Negative) 01/20/19 13:35 Urine Mucus Trace (Negative) 01/20/19 13:35 Ur Culture Indicated? Yes 01/20/19 13:35 Urine Glucose >=1000 mg/dL (Negative) H 01/20/19 13:35 Vancomycin Trough 20.4 ug/mL (10.0-20.0) H* 01/25/19 16:33 Legionella Source (see note) 01/20/19 13:35 Legionella Reprt Status (see note) 01/20/19 13:35 Legionella Final Result (see note) 01/20/19 13:35 Ur Strep pneumoniae Ag Negative (Negative) 01/20/19 13:35
[2019-01-27] MEDS: Simvastatin 40 MG TAB PO (21:33)
[2019-01-27] MEDS: Donepezil 5 MG TAB PO (21:33)
[2019-01-27] MEDS: Insulin Glargine 300 UNITS/3 ML PEN 55 UNITS SC (21:34)
[2019-01-28] VITALS (12 sets, daily range): BP systolic 113–140; BP diastolic 66–83; PULSE 75–111; RESP 1–20; TEMP 36–37.7; O2SAT 86–98
[2019-01-28] MEDS: Albuterol/Ipratropium 3 ML UPD VIAL UPD ×4 (00:07→23:24)
--- NOTE | 2019-01-28 00:15 | DI.CT_ITS ---
SYMPTOM/DIAGNOSIS: SUSPECTED PANCREATITIS, ABD PAIN ABDOMEN AND PELVIC CT: CT scan of the abdomen and pelvis was performed following the uneventful administration of intravenous and oral contrast material. Dependent atelectatic changes are seen in the lungs. There is patient motion artifact which does limit the examination. The liver is normal in size. There is a well circumscribed, hypodense lesion in the posterior segment of the left lobe of the liver. This is nonspecific. The portal, superior mesenteric and splenic veins are patent. The patient is status post cholecystectomy. No biliary ductal dilatation is seen. There is mild fatty atrophy seen of the pancreas. No pancreatic mass or inflammatory change is seen. The spleen and adrenal glands are unremarkable. The kidneys show normal and symmetric enhancement. No suspicious solid renal mass or obstruction is identified. The urinary bladder is intact. The reproductive organs are unremarkable. Note is made of a small hiatal hernia. There is a question of mild thickening of the wall of the antrum of the stomach. The remainder of the bowel shows no evidence of an acute inflammatory or infectious process. No findings to suggest an acute appendicitis are seen. No evidence of obstruction is present. The abdominal aorta shows mild atherosclerosis. No aneurysmal dilatation. No significant abdominal or pelvic adenopathy, ascites or pneumoperitoneum is present. Degenerative changes are seen in the spine. Since the prior CT scan dated 05/21/18, there has been continued compression of the superior endplate of L 1. There is now loss of height of approximately 20% of the vertebral body anteriorly. This is stable compared to the chest xray from 01/19/19. No new compression fracture deformities are appreciated. IMPRESSION: Question mild thickening of the wall of the gastric antrum. Inflammatory or infectious process could not be excluded. Please correlate with the patient's past medical history and clinical findings.
[2019-01-28 07:14] LABS: Abs Immature Grans 0.84 k/cumm (0.0-0.09); Absolute Basophil Count 0.06 k/cumm (0.0-0.2); Basophils % 0.4; Eosinophils % 1.3; HCT 38.6 % (36.0-46.0); HGB 12.7 g/dL (12.0-15.5); Mean Corp. HGB Concentration 32.9 g/dL (32.0-36.0); Mean Corpuscular Hemoglobin 30.1 pg (27.0-33.0); Mean Corpuscular Volume 91.5 fL (80-95); Mean Platelet Volume 10.2 fL (8.0-11.0); Platelet Count 252 x1000/uL (130-400); RBC 4.22 m/cumm (4.00-5.20); RBC Distribution Width 15.4 % (11.7-14.6)
[2019-01-28 07:21] LABS: Anion Gap 6.3 mmol/L (3-11); BUN 44 mg/dL (7-18); CO2 33.7 mmol/L (21.0-32.0); CREATININE 1.14 mg/dL (0.55-1.02); Calcium 8.8 mg/dL (8.5-10.1); Chloride 102 mmol/L (98-107); Estimated GFR 47.54 (mL/min/1.73m2); Glucose 110 mg/dL (70-100); Magnesium 2.2 mg/dL (1.8-2.4); Potassium 3.3 mmol/L (3.5-5.1); Sodium 142 mmol/L (136-145)
[2019-01-28 07:59] LABS: Absolute Lymphocyte Count 2.46 k/cumm (1.2-3.4); Absolute Monocyte Count 2.16 k/cumm (0.11-0.7); Absolute Neutrophil Count 10.16 k/cumm (1.2-6.7)
[2019-01-28 08:00] LABS: Diff Comment Manual Differential; RBC Morphology Normal
[2019-01-28] MEDS: Ketoconazole 2% CREAM 15 GM TUBE TP ×2 (08:23→20:28)
[2019-01-28] MEDS: Enoxaparin 40 MG/0.4 ML SYR SC (08:23)
[2019-01-28] MEDS: Furosemide 20 MG TAB PO ×2 (08:24→15:31)
[2019-01-28] MEDS: Insulin Aspart 300 UNITS/3 ML PEN SC ×6 (08:24→22:00)
[2019-01-28] MEDS: Bisacodyl 5 MG TABEC PO (08:24)
[2019-01-28] MEDS: Benzonatate 200 MG CAP PO ×3 (08:24→20:28)
[2019-01-28] MEDS: predniSONE 20 MG TAB 40 MG PO (08:24)
[2019-01-28] MEDS: Pantoprazole 20 MG TABCR 40 MG PO (08:24)
[2019-01-28] MEDS: guaiFENesin 600 MG TABCR 1200 MG PO ×2 (08:24→20:27)
[2019-01-28] MEDS: Potassium Chloride 20 MEQ TABCR 40 MEQ PO (10:17)
[2019-01-28] MEDS: Budesonide 0.5 MG/2 ML UPD VIAL UPD ×2 (10:59→20:27)
[2019-01-28] MEDS: Escitalopram 10 MG TAB PO (12:03)
[2019-01-28] MEDS: Lactobacillus Acidophilus CAP 1 CAP PO ×2 (13:38→20:28)
--- NOTE | 2019-01-28 14:12 | PGE_ITS ---
Date of Service Date of service: 01/28/19 Time of Service: 14:03 Assessment and Plan (1) Abdominal pain: Current visit: Yes Status: Acute Etiology is unclear. Checking hemoccult. I increased PPI to BID. It is possible that the patient is having some dyspepsia from the PO potassium she got this am. Obtaining LFT's, lipase. May require imaging if persists. Will trial mylanta. (2) Sepsis: Current visit: No Status: Resolved Sepsis due to CAP (though CXR is negative, clinical suspicion is high). Finished 1 week of of abx. Blood cultures with NG X120 hours. Sputum culture likely contaminant. Improved - continue steroid taper. (3) COPD (chronic obstructive pulmonary disease): Current visit: No Status: Chronic Significant underlying COPD on home O2 at night only. Patient with second hand exposure to tobacco. Currently with acute exacerbation, likely in setting of infection. Improved - steroids transitioned to PO. Continue to wean O2 as tolerated. Exercise oximetry prior to discharge. Will need a nebulizer on discharge. (4) Acute kidney injury (nontraumatic): Current visit: No Status: Acute Likely pre-renal in etiology in the setting of acute illness, dehydration, and sepsis. Current creatinine improved and near baseline. Continue to hold ARB. (5) Type II diabetes mellitus, uncontrolled: Current visit: No Status: Chronic Significant initial hyperglycemia in the setting of infection and steroids. Decrease lantus. Continue SSI (6) Essential hypertension: Current visit: No Status: Chronic BP's at goal. Continue to hold ARB. Continue Lasix (7) DVT prophylaxis: Current visit: No Status: Acute SC Lovenox. (8) Advance directive on file: Current visit: No Status: Acute Full code. Subjective Interval history since last seen: Ms Pina complains of epigastric and RUQ discomfort that started this morning. She also felt nauseated. She does not feel nauseated now, but continues to have pain. She had a BM today (formed, she does not know what color) and is able to pass flatus. She states that her breathing is unchanged from yesterday. Per RT, she now does require oxygen (did not need it yesterday). She was placed on 1L of O2. Exam Narrative Exam Narrative: General: very pleasant obese female, does not look like she is feeling well; sitting in a chair, A&Ox3 HEENT: EOMI, MMM Heart: RRR, no m/r/g Lungs: very quiet rhonchi B - nearly clear GI: abdomen is soft, mildly tender in epigastrium; obese, + bowel sounds Extremities: no e/c/c BLE's, 1+ B pedal pulses Objective Objective Clinical Data: Abnormal lab results 01/28/19 01/28/19 Range/Units 06:28 06:28 WBC 15.40 H (4.4-10.8) k/cumm RDW 15.4 H (11.7-14.6) % Absolute Neutrophils 10.16 H (1.2-6.7) k/cumm Absolute Monocytes 2.16 H (0.11-0.7) k/cumm Potassium 3.3 L (3.5-5.1) mmol/L Carbon Dioxide 33.7 H (21.0-32.0) mmol/L BUN 44 H (7-18) mg/dL Creatinine 1.14 H (0.55-1.02) mg/dL Glucose 110 H D (70-100) mg/dL Vital Signs Temperature 36.1 C L 01/28/19 11:35 Temperature Source Tympanic 01/28/19 11:35 Pulse 104 H 01/28/19 11:35 Pulse Rhythm Regular 01/28/19 09:20 Pulse 75 01/25/19 07:53 Respiratory Rate 18 01/28/19 11:35 Respiratory Effort 01/28/19 09:20 Respiratory Depth Normal 01/28/19 09:20 Respiratory Pattern Normal 01/28/19 09:20 Blood Pressure 113/74 01/28/19 11:35 Blood Pressure Mean 96 01/25/19 10:01 Blood Pressure Position Supine 01/25/19 08:15 Pulse Oximetry 88 L 01/28/19 11:35 Oxygen Delivery Method Room Air 01/28/19 11:35 Oxygen Flow Rate 0 01/28/19 11:35 Fraction of Inspired Oxygen (FIO2) 25 01/25/19 00:15 Pain Level 3 01/28/19 11:35 Comment 01/28/19 11:35 Intake & Output 01/27/19 01/28/19 01/28/19 23:59 11:59 23:59 Intake Total 1220 / 2160 630 / 930 300 / 930 Output Total 1999 / 700 Balance -780 / -1390 -70 / 230 300 / 230 Weight 93 kg Intake: IV 300 / 600 Oral 920 / 1560 630 / 930 300 / 930 Output: Urine 1999 / 700 Other: Urine Color Yellow Straw Urine Appearance Clear Clear Urine Odor Normal Comment Mixed with stool. Stool Size Large Large Stool Characteristics Soft Soft Formed Brown Brown Voiding Methods Bedside Commode Bedside Commode Laboratory Results WBC 15.40 k/cumm (4.4-10.8) H 01/28/19 06:28 RBC 4.22 m/cumm (4.00-5.20) 01/28/19 06:28 Hgb 12.7 g/dL (12.0-15.5) 01/28/19 06:28 Hct 38.6 % (36.0-46.0) 01/28/19 06:28 MCV 91.5 fL (80-95) 01/28/19 06:28 MCH 30.1 pg (27.0-33.0) 01/28/19 06:28 MCHC 32.9 g/dL (32.0-36.0) 01/28/19 06:28 RDW 15.4 % (11.7-14.6) H 01/28/19 06:28 Plt Count 252 x1000/uL (130-400) 01/28/19 06:28 MPV 10.2 fL (8.0-11.0) 01/28/19 06:28 Immature Gran % See Differential 01/28/19 06:28 Neutrophils % 66.0 01/28/19 06:28 Band Neutrophils % 3.0 % 01/27/19 06:35 Lymphocytes % 16.0 01/28/19 06:28 Monocytes % 14.0 01/28/19 06:28 Eosinophils % 1.3 01/28/19 06:28 Basophils % 0.4 01/28/19 06:28 Metamyelocytes % 2.0 % 01/28/19 06:28 Myelocytes % 2.0 % 01/28/19 06:28 Absolute Neutrophils 10.16 k/cumm (1.2-6.7) H 01/28/19 06:28 Absolute Lymphocytes 2.46 k/cumm (1.2-3.4) 01/28/19 06:28 Absolute Monocytes 2.16 k/cumm (0.11-0.7) H 01/28/19 06:28 Absolute Eosinophils 0.20 k/cumm (0.0-0.7) 01/28/19 06:28 Absolute Basophils 0.06 k/cumm (0.0-0.2) 01/28/19 06:28 Differential Comment Manual differential 01/28/19 06:28 RBC Morphology Normal 01/28/19 06:28 Sodium 142 mmol/L (136-145) 01/28/19 06:28 Potassium 3.3 mmol/L (3.5-5.1) L 01/28/19 06:28 Chloride 102 mmol/L (98-107) 01/28/19 06:28 Carbon Dioxide 33.7 mmol/L (21.0-32.0) H 01/28/19 06:28 Anion Gap 6.3 mmol/L (3-11) 01/28/19 06:28 BUN 44 mg/dL (7-18) H 01/28/19 06:28 Creatinine 1.14 mg/dL (0.55-1.02) H 01/28/19 06:28 Estimated GFR/1.73 m2 47.54 (mL/min/1.73m2) 01/28/19 06:28 Glucose 110 mg/dL (70-100) H D 01/28/19 06:28 Lactate 1.7 mmol/l (0.6-1.4) H 01/21/19 06:00 Calcium 8.8 mg/dL (8.5-10.1) 01/28/19 06:28 Magnesium 2.2 mg/dL (1.8-2.4) 01/28/19 06:28 Total Bilirubin 0.5 mg/dL (0.2-1.0) 01/20/19 05:37 AST 15 U/L (15-37) 01/20/19 05:37 ALT 28 U/L (12-78) 01/20/19 05:37 Alkaline Phosphatase 67 U/L (46-116) 01/20/19 05:37 Troponin I < 0.02 ng/mL (0.00-0.06) 01/19/19 21:05 NT-Pro-B Natriuret Pep 167 pg/mL (-299) 01/19/19 21:05 Total Protein 6.0 g/dL (6.4-8.2) L 01/20/19 05:37 Albumin 2.6 g/dL (3.4-5.0) L 01/20/19 05:37 Urine Color Yellow (Yellow) 01/20/19 13:35 Urine Clarity Sl cloudy 01/20/19 13:35 Urine pH 5.5 (5-8) 01/20/19 13:35 Ur Specific [place] 1.025 (1.005-1.025) 01/20/19 13:35 Urine Protein 100 mg/dL (Negative) H 01/20/19 13:35 Urine Ketones Trace mg/dL (Negative) H 01/20/19 13:35 Urine Blood Large (Negative) H 01/20/19 13:35 Urine Nitrite Negative (Negative) 01/20/19 13:35 Urine Bilirubin Small (Negative) H 01/20/19 13:35 Urine Urobilinogen 0.2 EU/dL (Up TO 0.2) 01/20/19 13:35 Ur Leukocyte Esterase Negative (Negative) 01/20/19 13:35 Urine RBC >50 (0-2) H 01/20/19 13:35 Urine WBC 0-2 HPF (0-5) 01/20/19 13:35 Ur Epithelial Cells Few HPF (Negative) 01/20/19 13:35 Urine Crystals Rare amorphous HPF (Negative) 01/20/19 13:35 Urine Bacteria Moderate HPF (Negative) 01/20/19 13:35 Urine Casts 0-2 coarse granular LPF (Negative) 01/20/19 13:35 Urine Mucus Trace (Negative) 01/20/19 13:35 Ur Culture Indicated? Yes 01/20/19 13:35 Urine Glucose >=1000 mg/dL (Negative) H 01/20/19 13:35 Vancomycin Trough 20.4 ug/mL (10.0-20.0) H* 01/25/19 16:33 Legionella Source (see note) 01/20/19 13:35 Legionella Reprt Status (see note) 01/20/19 13:35 Legionella Final Result (see note) 01/20/19 13:35 Ur Strep pneumoniae Ag Negative (Negative) 01/20/19 13:35
[2019-01-28 14:30] LABS: ALT 27 U/L (12-78); AST 13 U/L (15-37); Albumin 2.7 g/dL (3.4-5.0); Alkaline Phosphatase 45 U/L (46-116); Bilirubin, Direct 0.11 mg/dL (0.00-0.20); Bilirubin, Total 0.5 mg/dL (0.2-1.0); Lipase 741 U/L (73-393); Total Protein 5.7 g/dL (6.4-8.2)
[2019-01-28] MEDS: Mylanta Suspension 30 ML CUP PO (14:34)
--- NOTE | 2019-01-28 15:07 | PT.INTREAT ---
Date of service: 01/28/19 Time of Service: 15:07 PT Notes 01/28/19 Inpatient Physical Therapy SUBJECTIVE: Elly reports that she is not feeling well today, she reports that she is having a harder time catching her breath today versus yesterday. OBJECTIVE: PAIN: No c/o pain BED MOBILITY/TRANSFERS Sit-supine: I Sit-stand: S Stand-sit: S GAIT Assistive Device: No AD Weight bearing: Full Assist: SBA Distance: 120' THEREX: Patient completed an UE and LE strengthening program, in a seated position, as per flow sheet. Patient was able to tolerate a slight progression in his ther ex program. Patient requires rest breaks between exercises due to SOB. ASSESSMENT: Continues to demonstrate independence with bed mobility at this time. Patient was able to tolerate a progression in ther ex, although continues to require rest breaks between exercises due to increased fatigue and SOB. Patient would benefit from continued conditioning for improved activity tolerance and cardiovascular endurance. PLAN: Continue with PTs POC TREATMENT CODE/TIME: Session 1: 30 minutes; 60017, [id number]
--- NOTE | 2019-01-28 15:10 | PDOC.CMPRO ---
- If Service Date Differs Date of service: 01/28/19 Time of Service: 15:10 Care Management Progress Note S/O: Elly is lying in bed when this group underwriter visits this morning, she is pleasant and receptive to discussion. Elly will need a nebulizer as well as continued home oxygen at time of DC. No change in DC plan. A: 68 y/o female admitted 01/19/19 for Pneumonia P: Elly will return home when medically cleared; no additional anticipated services at this time. She will resume day time services at [facility], home O2 and follow up with her PCP and plan of care as prescribed. Elly reports that her brother Brian will transport via private vehicle.
--- NOTE | 2019-01-28 15:18 | CMPROGNOTE_ITS ---
- If Service Date Differs Date of service: 01/28/19 Time of Service: 15:10 Care Management Progress Note S/O: Elly is lying in bed when this brief writer visits this morning, she is pleasant and receptive to discussion. Elly will need a nebulizer as well as continued home oxygen at time of DC. No change in DC plan. A: 68 y/o female admitted 01/19/19 for Pneumonia P: Elly will return home when medically cleared; no additional anticipated services at this time. She will resume day time services at [facility], home O2 and follow up with her PCP and plan of care as prescribed. Elly reports that her brother Brian will transport via private vehicle.
--- NOTE | 2019-01-28 15:43 | OT.INIE ---
Occupational Therapy Notes Inpatient Occupational Therapy Evaluation Date: 01/28/19 Referring Doctor:Randi Dyer MD OT Orders: Eval and treat Precautions: fall, standard PATIENT PROFILE/ADMITTING DIAGNOSIS: Pt is a 68 year old female admitted to [facility] on January 20 with pneumonia and sepsis, uncontrolled diabetes, acute kidney injury. Past Medical History: Medical History Internal derangement of right knee (Acute) Back pain (Chronic) Asthma (Chronic) Osteoporosis (Chronic 03/16/18) Neck pain (Chronic 03/16/18) Migraine (Chronic 04/03/14) Long-term use of high-risk medication (Chronic 03/16/18) Interstitial lung disease (Chronic 03/16/18) History of shingles (Resolved 03/16/18) Gastroesophageal reflux disease without esophagitis (Chronic 03/16/18) Essential hypertension (Chronic 07/17/13) Edema (Chronic 03/16/18) Dyspnea (Chronic 03/16/18) Depressive disorder (Chronic) Cubital tunnel syndrome (Resolved 03/16/18) Cognitive impairment (Chronic 03/16/18) Chronic constipation (Chronic 03/16/18) Anxiety (Chronic 03/16/18) Acute gastroenteritis (Resolved 03/16/18) Umbilical hernia (Chronic) Type II diabetes mellitus, uncontrolled (Chronic) Total urinary incontinence (Chronic) Shoulder pain (Chronic) Post herpetic neuralgia (Chronic 03/16/18) Peripheral neuralgia (Chronic) 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 She is (I) with all ADLs/IADLs at her baseline level of function. Equipment owned/DME: grab bars, shower bench SUBJECTIVE: Pt was lying in bed when OT arrived. She is agreeable to consult however states that she is very tired today. OBJECTIVE: General Observation: Tired and answers questions appropriately, barking cough Mental Status: A&Ox3 Pain: no c/o pain ROM: RUE WNL L UE WNL STRENGTH: RUE 5/5 throughout globally LUE 5/5 throughout globally FUNCTIONAL MOBILITY/ADLS: NT as pt denies due to being tired and not sleeping well last night. BALANCE: NT as pt denied INFORMED CONSENT/EDUCATION: Pt instructed in purpose of OT Consult and plan of care. ASSESSMENT: Patient is a 68-year-old female referred to occupational therapy services with diagnosis of COPD. Patient presents with clinical signs and symptoms consistent with dx, as demonstrated by the following impairment level findings/ functional limitations: decreased functional activity tolerance, decreased performance of ADLs at baseline level of function, decreased functional mobility. Patient is assessed as a Moderate 15678 complexity based on the following: History: See Above Examination: See Above Presentation: Evolving Decision Making: Moderate based on examination GOALS Goals x1 week 1. Transfers (I) 2. Dressing In sitting (I) with UE/LE dressing 3. Bathing Standing at sink (I) with UE/LE bathing 4. Toileting (I) on toilet 5. Eating (I) 6. Grooming (I) standing at sink for brushing teeth and hair PLAN OF CARE/TREATMENT PLAN: 1x/day, 5 days/ week x 1week Initiate Occupational Therapy Services for bathing, dressing, grooming, toileting, eating, transfer training. DISCHARGE RECOMMENDATIONS Home when medically cleared per MD TREATMENT TIME/MINUTES/CODES 06043, 10 minutes (09:30) [facility]
--- NOTE | 2019-01-28 15:55 | OTIE_ITS ---
Occupational Therapy Notes Inpatient Occupational Therapy Evaluation Date: 01/28/19 Referring Doctor:Randi Dyer MD OT Orders: Eval and treat Precautions: fall, standard PATIENT PROFILE/ADMITTING DIAGNOSIS: Pt is a 68 year old female admitted to [facility] on January 20 with pneumonia and sepsis, uncontrolled diabetes, acute kidney injury. Past Medical History: Medical History Internal derangement of right knee (Acute) Back pain (Chronic) Asthma (Chronic) Osteoporosis (Chronic 03/16/18) Neck pain (Chronic 03/16/18) Migraine (Chronic 04/03/14) Long-term use of high-risk medication (Chronic 03/16/18) Interstitial lung disease (Chronic 03/16/18) History of shingles (Resolved 03/16/18) Gastroesophageal reflux disease without esophagitis (Chronic 03/16/18) Essential hypertension (Chronic 07/17/13) Edema (Chronic 03/16/18) Dyspnea (Chronic 03/16/18) Depressive disorder (Chronic) Cubital tunnel syndrome (Resolved 03/16/18) Cognitive impairment (Chronic 03/16/18) Chronic constipation (Chronic 03/16/18) Anxiety (Chronic 03/16/18) Acute gastroenteritis (Resolved 03/16/18) Umbilical hernia (Chronic) Type II diabetes mellitus, uncontrolled (Chronic) Total urinary incontinence (Chronic) Shoulder pain (Chronic) Post herpetic neuralgia (Chronic 03/16/18) Peripheral neuralgia (Chronic) 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 She is (I) with all ADLs/IADLs at her baseline level of function. Equipment owned/DME: grab bars, shower bench SUBJECTIVE: Pt was lying in bed when OT arrived. She is agreeable to consult however states that she is very tired today. OBJECTIVE: General Observation: Tired and answers questions appropriately, barking cough Mental Status: A&Ox3 Pain: no c/o pain ROM: RUE WNL L UE WNL STRENGTH: RUE 5/5 throughout globally LUE 5/5 throughout globally FUNCTIONAL MOBILITY/ADLS: NT as pt denies due to being tired and not sleeping well last night. BALANCE: NT as pt denied INFORMED CONSENT/EDUCATION: Pt instructed in purpose of OT Consult and plan of care. ASSESSMENT: Patient is a 68-year-old female referred to occupational therapy services with diagnosis of COPD. Patient presents with clinical signs and symptoms consistent with dx, as demonstrated by the following impairment level findings/ functional limitations: decreased functional activity tolerance, decreased performance of ADLs at baseline level of function, decreased functional mobility. Patient is assessed as a Moderate 35953 complexity based on the following: History: See Above Examination: See Above Presentation: Evolving Decision Making: Moderate based on examination GOALS Goals x1 week 1. Transfers (I) 2. Dressing In sitting (I) with UE/LE dressing 3. Bathing Standing at sink (I) with UE/LE bathing 4. Toileting (I) on toilet 5. Eating (I) 6. Grooming (I) standing at sink for brushing teeth and hair PLAN OF CARE/TREATMENT PLAN: 1x/day, 5 days/ week x 1week Initiate Occupational Therapy Services for bathing, dressing, grooming, toiletin g, eating, transfer training. DISCHARGE RECOMMENDATIONS Home when medically cleared per MD TREATMENT TIME/MINUTES/CODES 81951, 10 minutes (09:30) SERENA Mc/[facility]
[2019-01-28 18:08] LABS: Vancomycin, Trough 10.3 ug/mL (10.0-20.0)
[2019-01-28] MEDS: Pantoprazole 40 MG TABCR PO (20:27)
[2019-01-28] MEDS: Simvastatin 40 MG TAB PO (21:56)
[2019-01-28] MEDS: Donepezil 5 MG TAB PO (21:56)
[2019-01-28] MEDS: Breeza Beverage 473 ML BTL PO ×2 (21:57→21:58)
[2019-01-28] MEDS: Insulin Glargine 300 UNITS/3 ML PEN 40 UNITS SC (21:57)
[2019-01-28] MEDS: Omnipaque 350 MG/ML 50 ML BTL PO (21:58)
[2019-01-29] VITALS (8 sets, daily range): BP systolic 106–128; BP diastolic 65–76; PULSE 95–104; RESP 1–21; TEMP 36.8–37.5; O2SAT 94–97
[2019-01-29] MEDS: Omnipaque 350 MG/ML 100 ML BTL IJ (00:16)
--- NOTE | 2019-01-29 01:25 | DI.VRAD_ITS ---
EXAM: CT Abdomen and Pelvis With Contrast EXAM DATE/TIME: 01/28/2019 5:48 PM CLINICAL HISTORY: 68 years old, female; Pain; Abdominal pain; Generalized; Prior surgery; Surgery date: 6+ months; Surgery type: Gallbladder and appendix removed; Patient HX: Suspected pancreatitis, , abd pain; Additional info: Part of scan repeated due to PT cough causing motion TECHNIQUE: Imaging protocol: Axial computed tomography images of the abdomen and pelvis with intravenous contrast. Coronal and sagittal reformatted images were created and reviewed. Radiation optimization: All CT scans at this facility use at least one of these dose optimization techniques: automated exposure control; mA and/or kV adjustment per patient size (includes targeted exams where dose is matched to clinical indication); or iterative reconstruction. Contrast material: Omnipaque 350 Contrast volume: 100 ml Contrast route: IV and oral COMPARISON: CT ABDOMEN \T\ PELVIS W/CONTRAST 09/26/2013 11:23 AM FINDINGS: Lower thorax: No acute findings. ABDOMEN: Liver: Normal. No mass. Gallbladder and bile ducts: Status post cholecystectomy. Pancreas: Normal. No ductal dilation. Spleen: Normal. No splenomegaly. Adrenals: Normal. No mass. Kidneys and ureters: Normal. No hydronephrosis. Stomach and bowel: Cannot entirely exclude minimal mural thickening of the posterior wall of the gastric antrum and clinical status or peptic ulcer disease or gastritis recommended. Appendix: No evidence of appendicitis. PELVIS: Bladder: Unremarkable as visualized. Reproductive: Unremarkable as visualized. ABDOMEN and PELVIS: Intraperitoneal space: Normal. No free air. No significant fluid collection. Bones/joints: No acute fracture. No dislocation. Soft tissues: Unremarkable. Vasculature: Normal. No abdominal aortic aneurysm. Lymph nodes: Normal. No enlarged lymph nodes. IMPRESSION: Cannot entirely exclude minimal mural thickening of the posterior wall of the gastric antrum and clinical status or peptic ulcer disease or gastritis recommended. Dictated and Authenticated by: Jaxson Buckley MD. Ordering:SAMSON Bryan MD
[2019-01-29] MEDS: Enoxaparin 40 MG/0.4 ML SYR SC (07:36)
[2019-01-29] MEDS: Benzonatate 200 MG CAP PO ×3 (07:37→20:19)
[2019-01-29] MEDS: guaiFENesin 600 MG TABCR 1200 MG PO ×2 (07:37→20:20)
[2019-01-29] MEDS: predniSONE 20 MG TAB 40 MG PO ×2 (07:37→20:19)
[2019-01-29] MEDS: Lactobacillus Acidophilus CAP 1 CAP PO ×3 (07:37→20:20)
[2019-01-29] MEDS: Furosemide 20 MG TAB PO ×2 (07:37→16:20)
[2019-01-29] MEDS: Bisacodyl 5 MG TABEC PO (07:37)
[2019-01-29] MEDS: Pantoprazole 40 MG TABCR PO ×2 (07:37→20:20)
[2019-01-29] MEDS: Budesonide 0.5 MG/2 ML UPD VIAL UPD (07:38)
[2019-01-29] MEDS: Albuterol/Ipratropium 3 ML UPD VIAL UPD ×3 (07:39→18:32)
[2019-01-29] MEDS: Insulin Aspart 300 UNITS/3 ML PEN SC ×7 (08:24→21:55)
[2019-01-29 10:42] LABS: Abs Immature Grans 0.56 k/cumm (0.0-0.09); HCT 37.5 % (36.0-46.0); HGB 12.2 g/dL (12.0-15.5); Mean Corp. HGB Concentration 32.5 g/dL (32.0-36.0); Mean Corpuscular Hemoglobin 30.1 pg (27.0-33.0); Mean Corpuscular Volume 92.6 fL (80-95); Mean Platelet Volume 10.4 fL (8.0-11.0); Platelet Count 239 x1000/uL (130-400); RBC 4.05 m/cumm (4.00-5.20); RBC Distribution Width 15.6 % (11.7-14.6); White Blood Cell Count 18.06 k/cumm (4.4-10.8)
[2019-01-29 10:54] LABS: Anion Gap 6.5 mmol/L (3-11); BUN 41 mg/dL (7-18); CO2 31.5 mmol/L (21.0-32.0); CREATININE 1.44 mg/dL (0.55-1.02); Calcium 9.5 mg/dL (8.5-10.1); Chloride 100 mmol/L (98-107); Estimated GFR 36.31 (mL/min/1.73m2); Glucose 259 mg/dL (70-100); Magnesium 2.2 mg/dL (1.8-2.4); Potassium 4.1 mmol/L (3.5-5.1); Sodium 138 mmol/L (136-145)
[2019-01-29 10:59] LABS: ALT 28 U/L (12-78); AST 13 U/L (15-37); Albumin 2.6 g/dL (3.4-5.0); Alkaline Phosphatase 50 U/L (46-116); Bilirubin, Direct 0.09 mg/dL (0.00-0.20); Bilirubin, Total 0.5 mg/dL (0.2-1.0); Total Protein 5.9 g/dL (6.4-8.2)
[2019-01-29 11:00] LABS: Absolute Eosinophil Count 0.36 k/cumm (0.0-0.7); Absolute Lymphocyte Count 0.72 k/cumm (1.2-3.4); Absolute Monocyte Count 0.72 k/cumm (0.11-0.7); Absolute Neutrophil Count 15.89 k/cumm (1.2-6.7)
[2019-01-29] MEDS: Escitalopram 10 MG TAB PO (11:35)
[2019-01-29] MEDS: Sucralfate 1 GM TAB PO ×3 (11:35→21:55)
--- NOTE | 2019-01-29 11:46 | OT.INNT ---
Date of service: 01/29/19 Time of Service: 10:50 Occupational Therapy Notes 01/29/19 OT attempted to see pt at 9:45 and 10:50. Pt denied OT at both sessions. OT will assess pt tomorrow. Trinidad Philip OTR/[facility]
--- NOTE | 2019-01-29 13:33 | W.INDIABCONS ---
Date of service: 01/29/19 Time of Service: 13:34 Diabetes Inpatient Consult DESCRIPTION/ASSESSMENT: Follow up visit for Elly Pina who is having a prolonged inpatient stay secondary to abdominal pain. She also has renal involvement with GFR in 30s. A1c 11.1 in November. BMI 41 BLood sugar pattern since admission is a fasting blood sugar at goal most mornings though it is 172 today, noon, supper and bedtime blood sugars usually in 200s, highest at bedtime. She is currently taking 40mg prednisone which is a chronic medication for her and would likely cause her blood sugar rise between breakfast and lunch. She receives 40u Lantus down from 70, then 55units with resultant increase in fasting blood sugar. She also receives 1 unit Novolog per 15 grams carbohydrate and resistant insulin correction with insulin dosing 6-15 units per meal and insulin correction at bedtime. Blood sugars are in her usual range at home where she takes 70u Lantus and mealtime insulin on a scale. Improving glycemic control for Elly may be achievable with insulin to cover steroid induced hyperglycemia requiring a higher insulin correction and proactively increasing her breakfast insulin dose anticipating a rise in blood sugars by lunch. INTERVENTION: Suggest intensifying her insulin for carbohydrate to 1 unit covers 5 grams carbohydrate based on her current total insulin dosing. At home she will not be counting carbohydrates but here we can see what it takes to cover what she typically eats at a meal. In addition, increasing her basal insulin may help her fasting blood sugar, suggest returning to 55units Lantus in the evening. Elly feels confident she can continue to take her mealtime insulin at home. When she is outpatient she may benefit from an adjustment from the mealtime dosing scale. PLAN: Suggest mealtime insulin at 1 unit covers 5 grams carbohydrate; increasing basal insulin back to 55units and assess fasting blood sugar Will f/u prior to discharge. Time Spent in Nutritional Counseling and Treatment: 10 minutes face to face inpatient
--- NOTE | 2019-01-29 14:02 | PDOC.CMPRO ---
- If Service Date Differs Date of service: 01/29/19 Time of Service: 14:02 Care Management Progress Note S/O: Elly is lying in bed this morning, pleasant and receptive to discussion. Elly continues to be in an acute level of care. She will potentially be ready for DC tomorrow 01/30. No change in DC plan at this time. A: 68 y/o female admitted 01/19/19 for Pneumonia P: Elly will return home when medically cleared; no additional anticipated services at this time. She will resume day time services at [facility], home O2 and follow up with her PCP and plan of care as prescribed. Elly reports that her brother Brian will transport via private vehicle.
--- NOTE | 2019-01-29 17:19 | W.PM.PROGNOT ---
Date of Service Date of service: 01/29/19 Time of Service: 17:20 Assessment and Plan (1) Abdominal pain: Current visit: Yes Status: Acute Evidence of gastritis on CT - clinically already much better. Continue PPI, prn mylanta. No further workup. (2) Sepsis: Current visit: No Status: Resolved Sepsis due to CAP (though CXR is negative, clinical suspicion is high). Finished 1 week of of abx. Blood cultures with NG X120 hours. Sputum culture likely contaminant. Improved - continue steroid taper. (3) COPD (chronic obstructive pulmonary disease): Current visit: No Status: Chronic Significant underlying COPD on home O2 at night only. Patient with second hand exposure to tobacco. Currently with acute exacerbation, likely in setting of infection. Improved - steroids transitioned to PO. I am increasing the dose to BID as she sounds slightly more rhonchorous to me today. Continue to wean O2 as tolerated. Exercise oximetry prior to discharge. Will need a nebulizer on discharge. (4) Acute kidney injury (nontraumatic): Current visit: No Status: Acute Likely pre-renal in etiology in the setting of acute illness, dehydration, and sepsis. Current creatinine improved and near baseline. Continue to hold ARB. (5) Type II diabetes mellitus, uncontrolled: Current visit: No Status: Chronic Significant initial hyperglycemia in the setting of infection and steroids. Increase lantus Continue SSI; decrease insulin to CHO ratio. (6) Essential hypertension: Current visit: No Status: Chronic BP's at goal. Continue to hold ARB. Continue Lasix (7) DVT prophylaxis: Current visit: No Status: Acute SC Lovenox. (8) Advance directive on file: Current visit: No Status: Acute Full code. Subjective Interval history since last seen: States both the breathing and the abdominal pain are much better today. Denies dizziness, chest pain, nausea, vomiting. No BM today. She was eating lunch when I saw her - almost the entire contents of her tray were gone. Exam Narrative Exam Narrative: General: very pleasant obese female, looks much better, eating lunch at the time of my visit. HEENT: EOMI, MMM Heart: RRR, no m/r/g Lungs: very quiet rhonchi B, possibly slightly worse today GI: abdomen is soft, nontender, nondistended Extremities: no e/c/c BLE's, 1+ B pedal pulses Objective Objective Clinical Data: Abnormal lab results 01/29/19 01/29/19 01/29/19 Range/Units 10:25 10:25 10:25 WBC 18.06 H (4.4-10.8) k/cumm RDW 15.6 H (11.7-14.6) % Absolute Neutrophils 15.89 H (1.2-6.7) k/cumm Absolute Lymphocytes 0.72 L (1.2-3.4) k/cumm Absolute Monocytes 0.72 H (0.11-0.7) k/cumm BUN 41 H (7-18) mg/dL Creatinine 1.44 H (0.55-1.02) mg/dL Glucose 259 H D (70-100) mg/dL AST 13 L (15-37) U/L Total Protein 5.9 L (6.4-8.2) g/dL Albumin 2.6 L (3.4-5.0) g/dL Vital Signs Temperature 37.2 C 01/29/19 15:50 Temperature Source Tympanic 01/29/19 15:50 Pulse 97 H 01/29/19 15:50 Pulse Rhythm Regular 01/29/19 08:29 Pulse 75 01/25/19 07:53 Respiratory Rate 20 01/29/19 15:50 Respiratory Effort 01/29/19 08:29 Respiratory Depth Normal 01/29/19 08:29 Respiratory Pattern Normal 01/29/19 08:29 Blood Pressure 116/65 01/29/19 15:50 Blood Pressure Mean 96 01/25/19 10:01 Blood Pressure Position Supine 01/25/19 08:15 Pulse Oximetry 97 01/29/19 15:50 Oxygen Delivery Method Nasal Cannula 01/29/19 15:50 Oxygen Flow Rate 2 01/29/19 15:50 Fraction of Inspired Oxygen (FIO2) 25 01/25/19 00:15 Pain Level 3 01/28/19 11:35 Comment 01/28/19 11:35 Intake & Output 01/28/19 01/29/19 01/29/19 23:59 11:59 23:59 Intake Total 780 / 1410 1090 / 1090 Output Total 2150 / 2850 1500 / 2000 500 / 2000 Balance -1370 / -1440 -410 / -910 -500 / -910 Weight 92.1 kg Intake: Oral 780 / 1410 1090 / 1090 Output: Urine 2150 / 2850 1500 / 2000 500 / 2000 Other: Urine Color Yellow Yellow Yellow Urine Appearance Clear Clear Clear Urine Odor None None Voiding Methods Bedside Commode Bedside Commode Bedside Commode Laboratory Results WBC 18.06 k/cumm (4.4-10.8) H 01/29/19 10:25 RBC 4.05 m/cumm (4.00-5.20) 01/29/19 10:25 Hgb 12.2 g/dL (12.0-15.5) 01/29/19 10:25 Hct 37.5 % (36.0-46.0) 01/29/19 10:25 MCV 92.6 fL (80-95) 01/29/19 10:25 MCH 30.1 pg (27.0-33.0) 01/29/19 10:25 MCHC 32.5 g/dL (32.0-36.0) 01/29/19 10:25 RDW 15.6 % (11.7-14.6) H 01/29/19 10:25 Plt Count 239 x1000/uL (130-400) 01/29/19 10:25 MPV 10.4 fL (8.0-11.0) 01/29/19 10:25 Immature Gran % See Differential 01/29/19 10:25 Neutrophils % 88.0 01/29/19 10:25 Band Neutrophils % 3.0 % 01/27/19 06:35 Lymphocytes % 4.0 01/29/19 10:25 Monocytes % 4.0 01/29/19 10:25 Eosinophils % 2.0 01/29/19 10:25 Basophils % 0.0 01/29/19 10:25 Metamyelocytes % 2.0 % 01/29/19 10:25 Myelocytes % 2.0 % 01/28/19 06:28 Absolute Neutrophils 15.89 k/cumm (1.2-6.7) H 01/29/19 10:25 Absolute Lymphocytes 0.72 k/cumm (1.2-3.4) L 01/29/19 10:25 Absolute Monocytes 0.72 k/cumm (0.11-0.7) H 01/29/19 10:25 Absolute Eosinophils 0.36 k/cumm (0.0-0.7) 01/29/19 10:25 Absolute Basophils 0.00 k/cumm (0.0-0.2) 01/29/19 10:25 Differential Comment Manual differential 01/28/19 06:28 RBC Morphology Normal 01/28/19 06:28 Sodium 138 mmol/L (136-145) 01/29/19 10:25 Potassium 4.1 mmol/L (3.5-5.1) D 01/29/19 10:25 Chloride 100 mmol/L (98-107) 01/29/19 10:25 Carbon Dioxide 31.5 mmol/L (21.0-32.0) 01/29/19 10:25 Anion Gap 6.5 mmol/L (3-11) 01/29/19 10:25 BUN 41 mg/dL (7-18) H 01/29/19 10:25 Creatinine 1.44 mg/dL (0.55-1.02) H 01/29/19 10:25 Estimated GFR/1.73 m2 36.31 (mL/min/1.73m2) 01/29/19 10:25 Glucose 259 mg/dL (70-100) H D 01/29/19 10:25 Lactate 1.7 mmol/l (0.6-1.4) H 01/21/19 06:00 Calcium 9.5 mg/dL (8.5-10.1) 01/29/19 10:25 Magnesium 2.2 mg/dL (1.8-2.4) 01/29/19 10:25 Total Bilirubin 0.5 mg/dL (0.2-1.0) 01/29/19 10:25 Conjugated Bilirubin 0.09 mg/dL (0.00-0.20) 01/29/19 10:25 AST 13 U/L (15-37) L 01/29/19 10:25 ALT 28 U/L (12-78) 01/29/19 10:25 Alkaline Phosphatase 50 U/L (46-116) 01/29/19 10:25 Troponin I < 0.02 ng/mL (0.00-0.06) 01/19/19 21:05 NT-Pro-B Natriuret Pep 167 pg/mL (-299) 01/19/19 21:05 Total Protein 5.9 g/dL (6.4-8.2) L 01/29/19 10:25 Albumin 2.6 g/dL (3.4-5.0) L 01/29/19 10:25 Lipase 741 U/L (73-393) H 01/28/19 06:28 Urine Color Yellow (Yellow) 01/20/19 13:35 Urine Clarity Sl cloudy 01/20/19 13:35 Urine pH 5.5 (5-8) 01/20/19 13:35 Ur Specific [place] 1.025 (1.005-1.025) 01/20/19 13:35 Urine Protein 100 mg/dL (Negative) H 01/20/19 13:35 Urine Ketones Trace mg/dL (Negative) H 01/20/19 13:35 Urine Blood Large (Negative) H 01/20/19 13:35 Urine Nitrite Negative (Negative) 01/20/19 13:35 Urine Bilirubin Small (Negative) H 01/20/19 13:35 Urine Urobilinogen 0.2 EU/dL (Up TO 0.2) 01/20/19 13:35 Ur Leukocyte Esterase Negative (Negative) 01/20/19 13:35 Urine RBC >50 (0-2) H 01/20/19 13:35 Urine WBC 0-2 HPF (0-5) 01/20/19 13:35 Ur Epithelial Cells Few HPF (Negative) 01/20/19 13:35 Urine Crystals Rare amorphous HPF (Negative) 01/20/19 13:35 Urine Bacteria Moderate HPF (Negative) 01/20/19 13:35 Urine Casts 0-2 coarse granular LPF (Negative) 01/20/19 13:35 Urine Mucus Trace (Negative) 01/20/19 13:35 Ur Culture Indicated? Yes 01/20/19 13:35 Urine Glucose >=1000 mg/dL (Negative) H 01/20/19 13:35 Vancomycin Trough 10.3 ug/mL (10.0-20.0) 01/28/19 17:35 Legionella Source (see note) 01/20/19 13:35 Legionella Reprt Status (see note) 01/20/19 13:35 Legionella Final Result (see note) 01/20/19 13:35 Ur Strep pneumoniae Ag Negative (Negative) 01/20/19 13:35
--- NOTE | 2019-01-29 18:03 | PT.INTREAT ---
Date of service: 01/29/19 Time of Service: 03:38 PT Notes Inpatient Physical Therapy Treatment Note [facility] Date: 01/29/2019 PRECAUTIONS: Fall. Standard. SUBJECTIVE: Patient states that she did not sleep well last night and requested to be seen later this morning as she wanted to rest. This PT came back and attempted to see the patient for the second time in the morning who was agreeable to a PT session. OBJECTIVE: Patient was seen sitting on her bedside chair with bilateral TEDS on. 2 L of oxygen per minute via nasal cannula. In the afternoon patient was seen resting in bed slightly out of breath she stated that she just transferred from her chair to the commode and then to her bed. PAIN: 0/10 pain. BED MOBILITY/TRANSFERS Sit?supine: I Sit-stand: I Stand-sit: I Chair-bed I Bed-chair I GAIT Assistive Device: FWW Weight bearing: Full Assist: SBA Distance: 150 feet x 2 with oxygen saturation dipping down to 88% at 2 L via nasal cannula but went back up to 93% with pursed lip breathing and 1 seated rests. THEREX: Patient was able to tolerate stepping exercises x6 while holding onto bilateral rails with SBA assist with oxygen saturation 90% on 2 L of oxygen and with HR at 119 bpm. In the afternoon, patient was able to tolerate standing level exercises as indicated and exercise flow sheet with oxygen saturations staying above 90% via nasal cannula throughout session STAIRS: Up/down 3x4 and 2x6 using the rails step to pattern supervision of this PT with oxygen at 2 L/min. ASSESSMENT: Patient has demonstrated increase in independence with transfer and ambulation task performance. Patient will continue to benefit from use of front-wheeled walker for energy conservation and minimization of fatigue. PLAN: Patient will highly benefit from the use of a front wheeled walker for all ambulation activities at discharge destination in order to conserve energy and minimize onset of fatigue. She is well continue to require home health PT services in order to progress mobility level, maximize activity tolerance, and reduce fall risk at home TREATMENT CODE/TIME: 42769 26 minutes beginning at 11:08 AM and 31658 18 minutes beginning at 15:38 PM.
--- NOTE | 2019-01-29 18:07 | PTTR_ITS ---
Date of service: 01/29/19 Time of Service: 03:38 PT Notes Inpatient Physical Therapy Treatment Note [facility] Date: 01/29/2019 PRECAUTIONS: Fall. Standard. SUBJECTIVE: Patient states that she did not sleep well last night and requested to be seen later this morning as she wanted to rest. This PT came back and attempted to see the patient for the second time in the morning who was agreeable to a PT session. OBJECTIVE: Patient was seen sitting on her bedside chair with bilateral TEDS on. 2 L of oxygen per minute via nasal cannula. In the afternoon patient was seen resting in bed slightly out of breath she stated that she just transferred from her chair to the commode and then to her bed. PAIN: 0/10 pain. BED MOBILITY/TRANSFERS Sit?supine: I Sit-stand: I Stand-sit: I Chair-bed I Bed-chair I GAIT Assistive Device: FWW Weight bearing: Full Assist: SBA Distance: 150 feet x 2 with oxygen saturation dipping down to 88% at 2 L via nasal cannula but went back up to 93% with pursed lip breathing and 1 seated rests. THEREX: Patient was able to tolerate stepping exercises x6 while holding onto bilateral rails with SBA assist with oxygen saturation 90% on 2 L of oxygen and with HR at 119 bpm. In the afternoon, patient was able to tolerate standing level exercises as indicated and exercise flow sheet with oxygen saturations staying above 90% via nasal cannula throughout session STAIRS: Up/down 3x4 and 2x6 using the rails step to pattern supervision of this PT with oxygen at 2 L/min. ASSESSMENT: Patient has demonstrated increase in independence with transfer and ambulation task performance. Patient will continue to benefit from use of front-wheeled walker for energy conservation and minimization of fatigue. PLAN: Patient will highly benefit from the use of a front wheeled walker for all ambulation activities at discharge destination in order to conserve energy and minimize onset of fatigue. She is well continue to require home health PT services in order to progress mobility level, maximize activity tolerance, and reduce fall risk at home TREATMENT CODE/TIME: 21034 26 minutes beginning at 11:08 AM and [id number] 18 minutes beginning at 15:38 PM.
[2019-01-29] MEDS: Ketoconazole 2% CREAM 15 GM TUBE TP (20:20)
[2019-01-29] MEDS: Donepezil 5 MG TAB PO (21:55)
[2019-01-29] MEDS: Simvastatin 40 MG TAB PO (21:55)
[2019-01-29] MEDS: Insulin Glargine 300 UNITS/3 ML PEN 50 UNITS SC (21:55)
[2019-01-30] MEDS: Albuterol/Ipratropium 3 ML UPD VIAL UPD ×3 (06:26→17:47)
[2019-01-30] MEDS: Budesonide 0.5 MG/2 ML UPD VIAL UPD ×2 (07:34→20:05)
[2019-01-30 07:35] VITALS: O2SAT 93
[2019-01-30 07:40] VITALS: BP 111/70; PULSE 90; RESP 22; TEMP 36.1; O2SAT 99
[2019-01-30] MEDS: Enoxaparin 40 MG/0.4 ML SYR SC (09:06)
[2019-01-30] MEDS: Insulin Aspart 300 UNITS/3 ML PEN SC ×7 (09:07→21:46)
[2019-01-30] MEDS: predniSONE 20 MG TAB 40 MG PO (09:10)
[2019-01-30] MEDS: Ketoconazole 2% CREAM 15 GM TUBE TP ×2 (09:11→20:05)
[2019-01-30] MEDS: Pantoprazole 40 MG TABCR PO ×2 (09:11→20:04)
[2019-01-30] MEDS: Furosemide 20 MG TAB PO (09:11)
[2019-01-30] MEDS: Sucralfate 1 GM TAB PO ×4 (09:11→21:01)
[2019-01-30] MEDS: Bisacodyl 5 MG TABEC PO (09:11)
[2019-01-30] MEDS: Lactobacillus Acidophilus CAP 1 CAP PO ×3 (09:11→20:04)
[2019-01-30] MEDS: Benzonatate 200 MG CAP PO ×3 (09:11→20:03)
[2019-01-30] MEDS: guaiFENesin 600 MG TABCR 1200 MG PO ×2 (09:11→20:03)
[2019-01-30 10:25] VITALS: PULSE 104; PULSE 114; PULSE 126; PULSE 128; RESP 20; RESP 24; O2SAT 85; O2SAT 88; O2SAT 90; O2SAT 91
--- NOTE | 2019-01-30 10:45 | DI.RAD_ITS ---
SYMPTOMS/DIAGNOSIS: F/U CHF/PNEUMONIA/COPD PORTABLE CHEST: Comparison 01/19/19. There is poor inspiration. The cardiac silhouette is stable. The pulmonary vasculature is within normal limits. The left lung appears clear. There has been significant improvement of the right perihilar infiltrate compared to 01/19/19. No effusions or pneumothoraces are identified. No new infiltrates are present. There is a right PICC line in placement. The tip of the catheter is in good position of the junction of the superior vena cava and right atrium. IMPRESSION: Overall improved appearance of the chest with small residual infiltrate in the right parahilar region.
[2019-01-30] MEDS: Escitalopram 10 MG TAB PO (11:13)
[2019-01-30] MEDS: Normal Saline Flush 10 ML SYR IVP ×2 (11:14→21:02)
[2019-01-30 11:40] VITALS: BP 112/59; PULSE 98; RESP 20; TEMP 36.9; O2SAT 91
--- NOTE | 2019-01-30 11:40 | OT.INDS ---
Date of service: 01/30/19 Time of Service: 09:30 Occupational Therapy Notes Occupational Therapy Inpatient Discharge Summary Date: 01/30/19 Dates of Service: 01/28/19-01/30/19 Referring Doctor:Randi Dyer MD OT Orders: Eval and treat Precautions: fall, standard PATIENT PROFILE/ADMITTING DIAGNOSIS: Pt is a 68 year old female admitted to [facility] on January 20 with pneumonia and sepsis, uncontrolled diabetes, acute kidney injury. Past Medical History: Medical History Internal derangement of right knee (Acute) Back pain (Chronic) Asthma (Chronic) Osteoporosis (Chronic 03/16/18) Neck pain (Chronic 03/16/18) Migraine (Chronic 04/03/14) Long-term use of high-risk medication (Chronic 03/16/18) Interstitial lung disease (Chronic 03/16/18) History of shingles (Resolved 03/16/18) Gastroesophageal reflux disease without esophagitis (Chronic 03/16/18) Essential hypertension (Chronic 07/17/13) Edema (Chronic 03/16/18) Dyspnea (Chronic 03/16/18) Depressive disorder (Chronic) Cubital tunnel syndrome (Resolved 03/16/18) Cognitive impairment (Chronic 03/16/18) Chronic constipation (Chronic 03/16/18) Anxiety (Chronic 03/16/18) Acute gastroenteritis (Resolved 03/16/18) Umbilical hernia (Chronic) Type II diabetes mellitus, uncontrolled (Chronic) Total urinary incontinence (Chronic) Shoulder pain (Chronic) Post herpetic neuralgia (Chronic 03/16/18) Peripheral neuralgia (Chronic) 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 She is (I) with all ADLs/IADLs at her baseline level of function. Equipment owned/DME: grab bars, shower bench SUBJECTIVE: Pt was sitting in chair when OT arrived. She was excited to be going home today and states that she would like to get washed up so she is ready. OBJECTIVE: ROM: RUE WNL L UE WNL STRENGTH: RUE 5/5 throughout globally LUE 5/5 throughout globally Bathing/Dressing performed sitting in chair and standing with FWW, pt was able to perform these (I). Toileting (I) on toilet Standing at sink she demonstrated (I) with FWW for brushing her teeth with good dynamic and static balance. BALANCE: Normal in sitting and standing. ASSESSMENT: Patient is a 68-year-old female referred to occupational therapy services with diagnosis of COPD. Pt was seen for 2 skilled OT sessions. She denied services on all other days. She was more upbeat and receptive to services today stating that she is going home this afternoon. OT recommends that pt return home when medically cleared per MD. GOALS All Met 1. Transfers (I) 2. Dressing In sitting (I) with UE/LE dressing 3. Bathing Standing at sink (I) with UE/LE bathing 4. Toileting (I) on toilet 5. Eating (I) 6. Grooming (I) standing at sink for brushing teeth and hair PLAN OF CARE/TREATMENT PLAN: Discharge from skilled OT services. DISCHARGE RECOMMENDATIONS Home when medically cleared per MD TREATMENT TIME/MINUTES/CODES 83825, 20 minutes (09:30) [facility]
--- NOTE | 2019-01-30 11:46 | OTDS_ITS ---
Date of service: 01/30/19 Time of Service: 09:30 Occupational Therapy Notes Occupational Therapy Inpatient Discharge Summary Date: 01/30/19 Dates of Service: 01/28/19-01/30/19 Referring Doctor:Randi Dyer MD OT Orders: Eval and treat Precautions: fall, standard PATIENT PROFILE/ADMITTING DIAGNOSIS: Pt is a 68 year old female admitted to [facility] on January 20 with pneumonia and sepsis, uncontrolled diabetes, acute kidney injury. Past Medical History: Medical History Internal derangement of right knee (Acute) Back pain (Chronic) Asthma (Chronic) Osteoporosis (Chronic 03/16/18) Neck pain (Chronic 03/16/18) Migraine (Chronic 04/03/14) Long-term use of high-risk medication (Chronic 03/16/18) Interstitial lung disease (Chronic 03/16/18) History of shingles (Resolved 03/16/18) Gastroesophageal reflux disease without esophagitis (Chronic 03/16/18) Essential hypertension (Chronic 07/17/13) Edema (Chronic 03/16/18) Dyspnea (Chronic 03/16/18) Depressive disorder (Chronic) Cubital tunnel syndrome (Resolved 03/16/18) Cognitive impairment (Chronic 03/16/18) Chronic constipation (Chronic 03/16/18) Anxiety (Chronic 03/16/18) Acute gastroenteritis (Resolved 03/16/18) Umbilical hernia (Chronic) Type II diabetes mellitus, uncontrolled (Chronic) Total urinary incontinence (Chronic) Shoulder pain (Chronic) Post herpetic neuralgia (Chronic 03/16/18) Peripheral neuralgia (Chronic) 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 She is (I) with all ADLs/IADLs at her baseline level of function. Equipment owned/DME: grab bars, shower bench SUBJECTIVE: Pt was sitting in chair when OT arrived. She was excited to be going home today and states that she would like to get washed up so she is r gill. OBJECTIVE: ROM: RUE WNL L UE WNL STRENGTH: RUE 5/5 throughout globally LUE 5/5 throughout globally Bathing/Dressing performed sitting in chair and standing with FWW, pt was able to perform these (I). Toileting (I) on toilet Standing at sink she demonstrated (I) with FWW for brushing her teeth with good dynamic and static balance. BALANCE: Normal in sitting and standing. ASSESSMENT: Patient is a 68-year-old female referred to occupational therapy services with diagnosis of COPD. Pt was seen for 2 skilled OT sessions. She denied services on all other days. She was more upbeat and receptive to services today stating that she is going home this afternoon. OT recommends that pt return home when medically cleared per MD. GOALS All Met 1. Transfers (I) 2. Dressing In sitting (I) with UE/LE dressing 3. Bathing Standing at sink (I) with UE/LE bathing 4. Toileting (I) on toilet 5. Eating (I) 6. Grooming (I) standing at sink for brushing teeth and hair PLAN OF CARE/TREATMENT PLAN: Discharge from skilled OT services. DISCHARGE RECOMMENDATIONS Home when medically cleared per MD TREATMENT TIME/MINUTES/CODES 54721, 20 minutes (09:30) [facility]
[2019-01-30 11:49] LABS: HGB 12.1 g/dL (12.0-15.5); Mean Corp. HGB Concentration 32.7 g/dL (32.0-36.0); Mean Corpuscular Hemoglobin 30.3 pg (27.0-33.0); Mean Corpuscular Volume 92.7 fL (80-95); Mean Platelet Volume 10.8 fL (8.0-11.0); Platelet Count 226 x1000/uL (130-400); RBC 3.99 m/cumm (4.00-5.20); RBC Distribution Width 15.4 % (11.7-14.6); White Blood Cell Count 15.94 k/cumm (4.4-10.8)
[2019-01-30 12:01] LABS: Absolute Lymphocyte Count 0.64 k/cumm (1.2-3.4); Absolute Monocyte Count 0.64 k/cumm (0.11-0.7); Absolute Neutrophil Count 14.66 k/cumm (1.2-6.7); BUN 49 mg/dL (7-18); CREATININE 1.59 mg/dL (0.55-1.02); Calcium 9.2 mg/dL (8.5-10.1); Chloride 95 mmol/L (98-107); Estimated GFR 32.38 (mL/min/1.73m2); Magnesium 2.3 mg/dL (1.8-2.4); Potassium 5.1 mmol/L (3.5-5.1); Sodium 132 mmol/L (136-145)
[2019-01-30 12:02] LABS: Diff Comment Manual Differential; RBC Morphology Normal
[2019-01-30] MEDS: Insulin Glargine 300 UNITS/3 ML PEN 30 UNITS SC (12:23)
--- NOTE | 2019-01-30 14:45 | CMPROGNOTE_ITS ---
- If Service Date Differs Date of service: 01/30/19 Time of Service: 14:44 Care Management Progress Note S/O: Elly is sitting up in her chair this morning, she continues to require inpatient care at this time. Elly is scheduled to have a repeat CXR today, and continues to have an oxygen requirement with ambulating. A: 68 y/o female admitted 01/19/19 for Pneumonia P: Elly will return home when medically cleared with home health PT. She will resume day time services at [facility], home O2 and follow up with her PCP and plan of care as prescribed. Elly reports that her brother Brian will transport via private vehicle.
[2019-01-30 15:03] LABS: Glucose 529 mg/dL (70-100)
--- NOTE | 2019-01-30 15:33 | PT.INTREAT ---
Date of service: 01/30/19 Time of Service: 10:00 PT Notes Inpatient Physical Therapy Treatment Note [facility] Date: 01/30/19 PRECAUTIONS: Fall SUBJECTIVE: Elly is agreeable to participating in PT in the morning. She is excited that she will discharge to home today. OBJECTIVE: PAIN: No complaints of pain BED MOBILITY/TRANSFERS Sit-stand: I Stand-sit: I GAIT Assistive Device: FWW Weight Bearing: Full Assist: S Distance: 175' Deviation: SOB VITALS: SaO2: 82-92% on RA?4L O2 via NC with activity (Session was performed in collaboration with RT, refer to their note for specific vital signs.) ASSESSMENT: Patient tolerated session with increased SOB with gait training. Patient would benefit from continued conditioning for improved activity tolerance and cardiovascular endurance. PLAN: Continue with PTs POC TREATMENT CODE/TIME: Session 1: 10 minutes; [id number]
--- NOTE | 2019-01-30 15:38 | PT.INNT ---
Date of service: 01/30/19 Time of Service: 15:38 PT Notes 01/30/19 Refused afternoon PT session. Will attempt to resume PT services tomorrow morning.
[2019-01-30 15:43] VITALS: BP 126/81; PULSE 94; RESP 22; TEMP 37; O2SAT 95
[2019-01-30] MEDS: Insulin NPH-Human 300 UNITS/3 ML PEN 15 UNIT SC (15:59)
--- NOTE | 2019-01-30 16:59 | CHAPLAIN ---
Elly was sitting up in her chair when I visited. She is hoping to be discharged today but said she hadn't yet heard about that. She said she is feeling better, but looking forward to being home and getting better sleep.
--- NOTE | 2019-01-30 17:28 | W.PM.PROGNOT ---
Date of Service Date of service: 01/30/19 Time of Service: 13:00 Assessment and Plan (1) Abdominal pain: Current visit: Yes Status: Resolved Resolved. Continue PPI, prn mylanta. No further workup. (2) Sepsis: Current visit: No Status: Resolved Sepsis due to CAP (though CXR is negative, clinical suspicion is high). Finished 1 week of of abx. CXR with clinical improvement. Blood cultures with NG X120 hours. Sputum culture likely contaminant. Continue steroid taper. (3) COPD (chronic obstructive pulmonary disease): Current visit: No Status: Chronic Significant underlying COPD on home O2 at night only. Patient with second hand exposure to tobacco. Currently with acute exacerbation, likely in setting of infection. Improved - steroids transitioned to PO. Decrease prednisone. Continue to wean O2 as tolerated. Exercise oximetry prior to discharge. Will need a nebulizer on discharge. (4) Acute kidney injury (nontraumatic): Current visit: No Status: Acute Likely pre-renal in etiology in the setting of acute illness, dehydration, and sepsis. Current creatinine improved and near baseline. Continue to hold ARB. (5) Type II diabetes mellitus, uncontrolled: Current visit: No Status: Chronic Significant initial hyperglycemia in the setting of infection and steroids. Increase lantus; reintroduce NPH. Continue SSI; (6) Essential hypertension: Current visit: No Status: Chronic BP's at goal. Continue to hold ARB. Continue Lasix (7) DVT prophylaxis: Current visit: No Status: Acute SC Lovenox. (8) Advance directive on file: Current visit: No Status: Acute Full code. Subjective Interval history since last seen: Ms Pina is feeling better today. She denies dizziness, chest pain, her breathing is at her baseline, denies nausea, vomiting, abdominal pain. Unfortunately her sugars have been uncontrolled today. Exam Narrative Exam Narrative: General: very pleasant obese female, looks well, comfortably sitting in a chair HEENT: EOMI, MMM Heart: RRR, no m/r/g Lungs: CTAB GI: abdomen is soft, nontender, nondistended Extremities: no e/c/c BLE's, 1+ B pedal pulses Objective Objective Clinical Data: Abnormal lab results 01/30/19 01/30/19 Range/Units 11:29 11:29 WBC 15.94 H (4.4-10.8) k/cumm RBC 3.99 L (4.00-5.20) m/cumm RDW 15.4 H (11.7-14.6) % Absolute Neutrophils 14.66 H (1.2-6.7) k/cumm Absolute Lymphocytes 0.64 L (1.2-3.4) k/cumm Sodium 132 L (136-145) mmol/L Chloride 95 L (98-107) mmol/L BUN 49 H (7-18) mg/dL Creatinine 1.59 H (0.55-1.02) mg/dL Glucose 529 H* D (70-100) mg/dL Vital Signs Temperature 37.0 C 01/30/19 15:43 Temperature Source Tympanic 01/30/19 15:43 Pulse 94 H 01/30/19 15:43 Pulse Rhythm Regular 01/30/19 15:47 Pulse 75 01/25/19 07:53 Respiratory Rate 22 01/30/19 15:43 Respiratory Effort Non-Labored 01/30/19 15:47 Respiratory Depth Normal 01/30/19 15:47 Respiratory Pattern Normal 01/30/19 15:47 Blood Pressure 126/81 01/30/19 15:43 Blood Pressure Mean 96 01/25/19 10:01 Blood Pressure Position Supine 01/25/19 08:15 Pulse Oximetry 95 01/30/19 15:43 Oxygen Delivery Method Nasal Cannula 01/30/19 15:43 Oxygen Flow Rate 1 01/30/19 15:43 Fraction of Inspired Oxygen (FIO2) 25 01/25/19 00:15 Pain Level 0 01/30/19 15:43 Comment 01/30/19 07:40 Intake & Output 01/29/19 01/30/19 01/30/19 23:59 11:59 23:59 Intake Total 640 / 1730 395 / 945 550 / 945 Output Total 1000 / 2500 1000 / 1000 Balance -360 / -770 -605 / -55 550 / -55 Intake: Oral 640 / 1730 395 / 945 550 / 945 Output: Urine 1000 / 2500 1000 / 1000 Other: Urine Color Straw Yellow Urine Appearance Clear Clear Urine Odor Normal Stool Size Large Small Stool Characteristics Soft Soft Formed Brown Brown Voiding Methods Bedside Commode Bedside Commode Laboratory Results WBC 15.94 k/cumm (4.4-10.8) H 01/30/19 11:29 RBC 3.99 m/cumm (4.00-5.20) L 01/30/19 11:29 Hgb 12.1 g/dL (12.0-15.5) 01/30/19 11:29 Hct 37.0 % (36.0-46.0) 01/30/19 11:29 MCV 92.7 fL (80-95) 01/30/19 11:29 MCH 30.3 pg (27.0-33.0) 01/30/19 11: MCHC 32.7 g/dL (32.0-36.0) 01/30/19 11: RDW 15.4 % (11.7-14.6) H 01/30/19 11:29 Plt Count 226 x1000/uL (130-400) 01/30/19 11:29 MPV 10.8 fL (8.0-11.0) 01/30/19 11:29 Immature Gran % 0.0 01/30/19 11:29 Neutrophils % 92.0 01/30/19 11:29 Band Neutrophils % 3.0 % 01/27/19 06:35 Lymphocytes % 4.0 01/30/19 11:29 Monocytes % 4.0 01/30/19 11:29 Eosinophils % 0.0 01/30/19 11:29 Basophils % 0.0 01/30/19 11:29 Metamyelocytes % 2.0 % 01/29/19 10:25 Myelocytes % 2.0 % 01/28/19 06:28 Absolute Neutrophils 14.66 k/cumm (1.2-6.7) H 01/30/19 11:29 Absolute Lymphocytes 0.64 k/cumm (1.2-3.4) L 01/30/19 11:29 Absolute Monocytes 0.64 k/cumm (0.11-0.7) 01/30/19 11:29 Absolute Eosinophils 0.00 k/cumm (0.0-0.7) 01/30/19 11:29 Absolute Basophils 0.00 k/cumm (0.0-0.2) 01/30/19 11:29 Differential Comment Manual differential 01/30/19 11:29 RBC Morphology Normal 01/30/19 11:29 Sodium 132 mmol/L (136-145) L 01/30/19 11:29 Potassium 5.1 mmol/L (3.5-5.1) D 01/30/19 11:29 Chloride 95 mmol/L (98-107) L 01/30/19 11:29 Carbon Dioxide 28.0 mmol/L (21.0-32.0) 01/30/19 11:29 Anion Gap 9.0 mmol/L (3-11) 01/30/19 11:29 BUN 49 mg/dL (7-18) H 01/30/19 11:29 Creatinine 1.59 mg/dL (0.55-1.02) H 01/30/19 11:29 Estimated GFR/1.73 m2 32.38 (mL/min/1.73m2) 01/30/19 11:29 Glucose 529 mg/dL (70-100) H* D 01/30/19 11:29 Lactate 1.7 mmol/l (0.6-1.4) H 01/21/19 06:00 Calcium 9.2 mg/dL (8.5-10.1) 01/30/19 11:29 Magnesium 2.3 mg/dL (1.8-2.4) 01/30/19 11:29 Total Bilirubin 0.5 mg/dL (0.2-1.0) 01/29/19 10:25 Conjugated Bilirubin 0.09 mg/dL (0.00-0.20) 01/29/19 10:25 AST 13 U/L (15-37) L 01/29/19 10:25 ALT 28 U/L (12-78) 01/29/19 10:25 Alkaline Phosphatase 50 U/L (46-116) 01/29/19 10:25 Troponin I < 0.02 ng/mL (0.00-0.06) 01/19/19 21:05 NT-Pro-B Natriuret Pep 167 pg/mL (-299) 01/19/19 21:05 Total Protein 5.9 g/dL (6.4-8.2) L 01/29/19 10:25 Albumin 2.6 g/dL (3.4-5.0) L 01/29/19 10:25 Lipase 741 U/L (73-393) H 01/28/19 06:28 Urine Color Yellow (Yellow) 01/20/19 13:35 Urine Clarity Sl cloudy 01/20/19 13:35 Urine pH 5.5 (5-8) 01/20/19 13:35 Ur Specific [place] 1.025 (1.005-1.025) 01/20/19 13:35 Urine Protein 100 mg/dL (Negative) H 01/20/19 13:35 Urine Ketones Trace mg/dL (Negative) H 01/20/19 13:35 Urine Blood Large (Negative) H 01/20/19 13:35 Urine Nitrite Negative (Negative) 01/20/19 13:35 Urine Bilirubin Small (Negative) H 01/20/19 13:35 Urine Urobilinogen 0.2 EU/dL (Up TO 0.2) 01/20/19 13:35 Ur Leukocyte Esterase Negative (Negative) 01/20/19 13:35 Urine RBC >50 (0-2) H 01/20/19 13:35 Urine WBC 0-2 HPF (0-5) 01/20/19 13:35 Ur Epithelial Cells Few HPF (Negative) 01/20/19 13:35 Urine Crystals Rare amorphous HPF (Negative) 01/20/19 13:35 Urine Bacteria Moderate HPF (Negative) 01/20/19 13:35 Urine Casts 0-2 coarse granular LPF (Negative) 01/20/19 13:35 Urine Mucus Trace (Negative) 01/20/19 13:35 Ur Culture Indicated? Yes 01/20/19 13:35 Urine Glucose >=1000 mg/dL (Negative) H 01/20/19 13:35 Vancomycin Trough 10.3 ug/mL (10.0-20.0) 01/28/19 17:35 Legionella Source (see note) 01/20/19 13:35 Legionella Reprt Status (see note) 01/20/19 13:35 Legionella Final Result (see note) 01/20/19 13:35 Ur Strep pneumoniae Ag Negative (Negative) 01/20/19 13:35 CXR: Overall improved appearance of the chest with small residual infiltrate in the right parahilar region.
[2019-01-30 19:30] VITALS: BP 114/73; PULSE 96; RESP 19; TEMP 36.5; O2SAT 94
[2019-01-30] MEDS: Insulin NPH-Human 300 UNITS/3 ML PEN 10 UNIT SC (20:33)
[2019-01-30] MEDS: predniSONE 20 MG TAB PO (20:33)
[2019-01-30] MEDS: Donepezil 5 MG TAB PO (21:01)
[2019-01-30] MEDS: Simvastatin 40 MG TAB PO (21:01)
[2019-01-30] MEDS: Insulin Glargine 300 UNITS/3 ML PEN 60 UNITS SC (21:47)
[2019-01-31] VITALS (9 sets, daily range): BP systolic 110–143; BP diastolic 59–81; PULSE 71–132; RESP 1–24; TEMP 35.3–37.2; O2SAT 86–96
[2019-01-31] MEDS: Albuterol/Ipratropium 3 ML UPD VIAL UPD ×3 (00:38→18:09)
[2019-01-31] MEDS: Acetaminophen 500 MG TAB 1000 MG PO (00:48)
[2019-01-31 07:08] LABS: Absolute Basophil Count 0.04 k/cumm (0.0-0.2); Absolute Monocyte Count 1.06 k/cumm (0.11-0.7); Basophils % 0.2; HCT 36.6 % (36.0-46.0); HGB 12.2 g/dL (12.0-15.5); Lymphocytes % 8.3; Mean Corp. HGB Concentration 33.3 g/dL (32.0-36.0); Mean Corpuscular Hemoglobin 30.4 pg (27.0-33.0); Mean Corpuscular Volume 91.3 fL (80-95); Mean Platelet Volume 10.3 fL (8.0-11.0); Monocytes % 5.3; Neutrophils % 84.2; Platelet Count 259 x1000/uL (130-400); RBC 4.01 m/cumm (4.00-5.20); RBC Distribution Width 15.1 % (11.7-14.6); White Blood Cell Count 20.07 k/cumm (4.4-10.8)
[2019-01-31 07:09] LABS: Absolute Lymphocyte Count 1.67 k/cumm (1.2-3.4)
[2019-01-31] MEDS: Sucralfate 1 GM TAB PO ×3 (07:14→16:03)
[2019-01-31 07:28] LABS: Diff Comment Agrees w/ Instrument; RBC Morphology Normal
[2019-01-31 07:35] LABS: Anion Gap 8.4 mmol/L (3-11); BUN 45 mg/dL (7-18); CO2 30.6 mmol/L (21.0-32.0); CREATININE 1.27 mg/dL (0.55-1.02); Calcium 9.5 mg/dL (8.5-10.1); Chloride 101 mmol/L (98-107); Estimated GFR 41.97 (mL/min/1.73m2); Glucose 150 mg/dL (70-100); Magnesium 2.2 mg/dL (1.8-2.4); Potassium 3.8 mmol/L (3.5-5.1); Sodium 140 mmol/L (136-145)
[2019-01-31] MEDS: Enoxaparin 40 MG/0.4 ML SYR SC (07:44)
[2019-01-31] MEDS: guaiFENesin 600 MG TABCR 1200 MG PO (07:45)
[2019-01-31] MEDS: predniSONE 20 MG TAB PO (07:45)
[2019-01-31] MEDS: Pantoprazole 40 MG TABCR PO (07:45)
[2019-01-31] MEDS: Bisacodyl 5 MG TABEC PO (07:45)
[2019-01-31] MEDS: Lactobacillus Acidophilus CAP 1 CAP PO ×2 (07:45→13:49)
[2019-01-31] MEDS: Benzonatate 200 MG CAP PO ×2 (07:46→13:49)
[2019-01-31] MEDS: Budesonide 0.5 MG/2 ML UPD VIAL UPD (07:53)
[2019-01-31] MEDS: Ketoconazole 2% CREAM 15 GM TUBE TP (08:45)
[2019-01-31] MEDS: Insulin Aspart 300 UNITS/3 ML PEN SC ×6 (08:45→17:07)
[2019-01-31 11:23] LABS: Bilirubin Negative (Negative); Blood Negative (Negative); Clarity Clear; Glucose Negative (Negative); Ketones Negative (Negative); Leukocyte Esterase Negative (Negative); Nitrite Negative (Negative); Urobilinogen 0.2 EU/dL (Up TO 0.2)
[2019-01-31 11:35] LABS: Bacteria Rare HPF (Negative); Epithelial Cells Few HPF (Negative); Other Cells Moderate Yeast (Negative); RBC Negative (0-2); WBC 0-2 HPF (0-5)
[2019-01-31 11:36] LABS: C & S Indicated? C&S Done As Ordered; Casts Negative LPF (Negative); Crystals Negative HPF (Negative); Mucus Negative (Negative)
[2019-01-31] MEDS: Escitalopram 10 MG TAB PO (12:33)
--- NOTE | 2019-01-31 13:10 | PDOC.CMPRO ---
- If Service Date Differs Date of service: 01/31/19 Time of Service: 13:10 Care Management Progress Note S/O: Elly is lying in bed this morning, pleasant and receptive to discussion. Elly states that she is interested in a FWW, home health services, and a pulse oximetry. CM discussed pulse ox with RT Carlton, whom states that he will give Elly information in regards to this. Elly reports that she is hopeful to be able to get home soon, and be able to feel better so that she is able to start going to [place] again. A: 68 y/o female admitted 01/19/19 for Pneumonia P: Elly will return home when medically cleared with home health RN/PT services. She will also require a FWW at time of DC, and is interested in a pulse ox which RT will discuss with her. Elly will resume home oxygen at time of DC, and will F/U with PCP and plan of care as prescribed. Elly reports that her brother Brian will transport via private vehicle.
[2019-01-31] MEDS: Glimepiride 2 MG TAB PO (13:49)
[2019-01-31] MEDS: Insulin NPH-Human 300 UNITS/3 ML PEN 15 UNIT SC (13:54)
--- NOTE | 2019-01-31 17:02 | PT.INPN ---
Date of service: 01/31/19 Time of Service: 10:35 PT Notes Inpatient Physical Therapy Progress Note Date: 01/31/2019 Dates of Service: 01/25/19 through 01/31/19 Precautions: Fall. Standard. Subjective: Patient reported that she had a headache last night but she feels a lot better this morning. She looks forward to going home today. She is agreeable to a PT session. Objective: General Observation: Patient continues to have dyspnea on exertion but is staying above 90% on 1 L/min. Mental Status: Alert and oriented x3 Pain: 0/10. Bed Mobility/Transfers: Rolling independent Supine to sit independent Sit to supine independent Sit to stand independent Stand to sit independent Bed to chair independent Chair to bed independent Gait: Patient was able to tolerate level surface ambulation for up to 200 feet using her FWW with SaO2 ranging from 88% through 95% 1 L of oxygen per minute. In the afternoon, patient was able to tolerate up to 250 feet using her front wheeled walker with SaO2 ranging from 88-95% on 1 L/min and heart rate of 98 bpm. Patient required only SBA for ambulation activity during both sessions. Balance: Static Sitting: Normal Dynamic Sitting: Normal Static Standing: Good Dynamic Standing: Fair Informed Consent/Education: Patient instructed in purpose of continued skilled physical therapy services. She was advised about continuing with home health PT services progress mobility level and further develop her activity tolerance. Assessment: Patient is a 68 year old female referred to physical therapy services with the diagnosis of COPD exacerbation. Patient presents with clinical signs and symptoms consistent with current/admitting diagnoses that have resulted to mobility limitations, gait instability, generalized weakness, and lack of motor control as demonstrated by the following impairment level findings: 1. Impaired balance 2. Impaired activity tolerance Impairments are contributing to the following functional limitations: 1. Inability to safely ambulate without assistive device and physical assistance 2. Increase completion time for mobility ADL performance 3. Increased fall risk 4. Inability to negotiate steps alone safely Patient is assessed as a Moderate 13817 complexity based on the following: History: 68-year-old female with COPD exacerbation compounded by past medical history and comorbidities Examination: Underlying impairments and functional deficits as noted above Presentation: Evolving Decision Makin moderate complexity Goals: Goals X1 week 1. Gait ambulating initially with a wheeled walker, greater than 150 feet 2. Stairs- independent 3. Independent with home exercise program 4. Patient will score 56/56 on the Bonilla balance test in order to reduce fall risk Plan of Care/Treatment Plan: 1-2x/day, 7 days/week x 1 week. Plan of care has been reviewed with the CRULLER MAKER MACHINE providing the service under Physical Therapy direction. Continue with physical Therapy intervention for strengthening, bed mobility, transfers, gait, stairs, balance training, use of assistive device. DISCHARGE RECOMMENDATION: Patient will highly benefit from home health physical therapy services in order to progress mobility level, maximize activity tolerance, assess home safety, and establish/implement functional maintenance program for HEP and fall reduction. Patient will require FWW for energy conservation and fall reduction. TREATMENT CODE/TIME: 40528 26 minutes beginning at 10:35 AM. [id number] 23 minutes beginning at 14:52 PM. Thank you for this referral. Iva Roldan, PT, DPT, CLT [facility]
--- NOTE | 2019-01-31 17:11 | W.PM.DS.N ---
Date of service: 01/31/19 Time of Service: 17:11 DS: Diagnosis Discharge Diagnosis (1) COPD (chronic obstructive pulmonary disease): Status: Chronic Asessment and Plan: at baseline (2) Abdominal pain: Status: Resolved (3) Sepsis: Status: Resolved (4) Acute kidney injury (nontraumatic): Status: Acute (5) Type II diabetes mellitus, uncontrolled: Status: Chronic (6) Essential hypertension: Status: Chronic (7) Chronic respiratory failure with hypoxia: Status: Chronic Discharge Plan Disposition Patient Disposition: HOME W/HOME HEALTH SERVICE Condition: Good Discharge Details Reason For Visit: PNEUMONIA, COPD EXACERBATION Admit Date/Time: 01/19/19 23:14 Admit Provider: Tre Carrizales Attending Provider: Tre Carrizales Primary Care Provider: Mario Garcia [facility] Course Hospital Course: Ms Pina is a 68 year old female with PMHx of COPD with chronic hypoxic respiratory failure, on O2 at 2L, interstitial lung disease, IDDM2, mild cognitive impairmant, admitted to [facility] ICU on 01/19/19 for acute pneumonia/pneumonitis and acute exacerbation of COPD. She was placed on BiPAP, She was started on levofloxacin, vancomycin, zosyn due to the patient felt to be getting septic. She was treated with systemic steroids and nebs. She also had an SYD which was treated with IVF. She had to have additional coverage with steroids (including addition of NPH while on high dose steroids) for her steroid-induced hyperglycemia. Her blood cultures show no growth to date. She received 7 days of IV antibiotics with significant clinical improvement (as well as resolution of findings on CXR). Her room air oxygen saturation while ambulating is 87%, but goes up to 91% on 2L. It is felt that the patient can be safely discharged home on 2L of O2 at all times. She feels at her baseline. She is to finish her steroid taper at home. She is to monitor her BG's and return to the hospital if they are >400. It needs to be noted that the patient stayed 2 extra days because of significant epigastric discomfort. Her imaging (CT) revealed gastritis. She felt better with increasing of the dose of the PPI. She would need to follow up for an outpatient EGD if desired. Please, also note that the patient is going to have repeat blood work on 02/04. Her WBC on day of discharge was 20, felt to be due to an additional pulse of steroids that she was given. She is afebrile without any evidence of new infection. It is important to ensure that her leucocytosis resolves post completion of steroid course. Home Meds and New Rx's Prescriptions: New pantoprazole 40 mg Tablet,Delayed Release (Dr/Ec) 40 mg PO BID Qty: 60 RF: 0 guaifenesin [Mucinex] 600 mg Tablet Extended Release 12hr 1,200 mg PO BID PRN PRN (Reason: cough) Qty: 30 RF: 0 dextromethorphan-guaifenesin 10-100 mg/5 mL Syrup 10 ml PO Q4H PRN PRNQty: 100 RF: 0 ketoconazole 2 % Cream 1 applic topical BID Qty: 30 RF: 0 sucralfate 1 gram Tablet 1 g PO AC & HS Qty: 120 RF: 0 prednisone 20 mg Tablet 20 mg PO DAILY Qty: 2 RF: 0 acidophilus-pectin, citrus 25 million cell -100 mg Tablet 1 cap PO TID Qty: 90 RF: 0 Continued cyclobenzaprine 5 mg tablet 5 mg PO TID PRN (Reason: muscle spasm) Qty: 42 RF: 3 Breo Ellipta 200-25 mcg/dose blister with device 1 inh IH DAILY Qty: 60 RF: 6 albuterol sulfate 2.5 mg /3 mL (0.083 %) solution for nebulization 2.5 mg Inhalation Q6H PRN (Reason: shortness of breath or wheezing) Qty: 10 RF: 6 compress.stocking,knee,reg,lrg misc .ROUTE .MEDSUPPLY Qty: 2 RF: 0 simvastatin 40 MG tablet 1 tab PO HS Qty: 90 RF: 4 albuterol sulfate [Ventolin HFA] 8 GM HFA aerosol inhaler 2 puff Inhalation Q4H PRN Qty: 1 RF: 4 lancets 1 EACH misc 1 ea Miscellaneous TID PRNQty: 400 RF: 3 escitalopram oxalate 10 MG tablet 10 mg PO .NOON RF: 0 Blood Glucose Test 1 EACH strip 1 ea Miscellaneous TID PRNQty: 400 RF: 4 pen needle, diabetic [Pen Needle] 1 EACH needle 1 ea Miscellaneous QID Qty: 4 RF: 3 epinephrine [EpiPen 2-Gordon] 0.3 MG/0.3 ML auto-injector 0.3 mg IM ONCE Qty: 1 RF: 0 blister gordon RF: 0 losartan 25 mg tablet 25 mg PO BID 39 Days Qty: 60 RF: 6 bisacodyl 5 mg tablet,delayed release (DR/EC) 5 mg PO DAILY Qty: 30 RF: 11 donepezil 5 mg tablet,disintegrating 5 mg PO DAILY Qty: 30 RF: 11 glimepiride 4 mg tablet 4 mg PO BID Qty: 60 RF: 11 benzonatate 100 mg capsule 100 mg PO QID PRN (Reason: cough) Qty: 60 RF: 1 Oxygen Tank .ROUTE .MEDSUPPLY Qty: 1 RF: 0 furosemide 20 mg tablet 20 mg PO BID PRN (Reason: leg swelling) Qty: 180 RF: 3 Tradjenta 5 mg tablet 5 mg PO DAILY Qty: 30 RF: 6 Humalog KwikPen Insulin 100 unit/mL insulin pen See Rx Instructions subcut as directed 30 Days Qty: 15 RF: 6 acetaminophen [Tylenol Extra Strength] 500 mg Tablet 1,000 mg PO Q6H PRNRF: 0 Changed Lantus Solostar U-100 Insulin 100 unit/mL (3 mL) insulin pen 70 unit SC HS Qty: 15 RF: 3 Discontinued prednisone 20 mg tablet 20 mg PO DAILY Qty: 7 RF: 0 azithromycin 250 mg tablet See Rx Instructions PO .COMPLEX Qty: 6 RF: 0 pantoprazole 20 MG tablet,delayed release (DR/EC) 40 mg PO DAILY RF: 0 Varicella-Zoster Ge/As01b/Pf [Shingrix Vial Kit] 50 MCG INJ 50 mcg IM ONCE Qty: 1 RF: 1 Discharge Instructions Instructions: Prednisone (By mouth), COPD (Chronic Obstructive Pulmonary Disease) (DC) Additional Instructions: Pt. is scheduled for outpt chest CAT scan for 02/07/19. Please arrive by 12:45. Return to the hospital with any fever, bleeding, chest pain, or shortness of breath. Finish your steroids as prescribed. Return to the hospital if your blood sugars are >400 Care Plan Goals: Discharge home with home health nursing and PT. Stand Alone Forms: Nursing Discharge Form Referrals: Mario Garcia DO [Primary Care Provider] - 02/07/19 9:30 am Activity:: Activity as Tolerated Equipment/Supplies:: Walker Diet:: Cardiac carb consistent Discharge Orders Discharge Orders: Discharge Order (Routine); Ordered 01/31/19 Ordered By: Randi Dyer Other Ambulatory Orders: Basic Metabolic Panel (Routine) Timeframe: 20190204 Location: Determined by Patient Ordered By: Randi Dyer Complete Blood Count w/Diff (Routine) Timeframe: 20190204 Location: Determined by Patient Ordered By: Randi Dyer Exam Narrative Exam Narrative: General: very pleasant obese female, looks well, comfortably sitting in a chair HEENT: EOMI, MMM Heart: RRR, no m/r/g Lungs: CTAB GI: abdomen is soft, nontender, nondistended Extremities: no e/c/c BLE's, 1+ B pedal pulses DS: Data Vitals/I&O Vitals and I&O: Vital Signs Temperature 36.5 C 01/31/19 11:05 Temperature Source Tympanic 01/31/19 11:05 Pulse 110 H 01/31/19 11:05 Pulse Rhythm Regular 01/31/19 16:05 Pulse 75 01/25/19 07:53 Respiratory Rate 19 01/31/19 11:05 Respiratory Effort Non-Labored 01/31/19 07:30 Respiratory Depth Normal 01/31/19 07:30 Respiratory Pattern Normal 01/31/19 07:30 Blood Pressure 143/81 H 01/31/19 11:05 Blood Pressure Mean 96 01/25/19 10:01 Blood Pressure Position Supine 01/25/19 08:15 Pulse Oximetry 92 L 01/31/19 11:05 Oxygen Delivery Method Nasal Cannula 01/31/19 11:05 Oxygen Flow Rate 1 01/31/19 07:51 Fraction of Inspired Oxygen (FIO2) 25 01/25/19 00:15 Pain Level 1 01/31/19 11:05 Comment 01/30/19 07:40 Intake & Output 01/30/19 01/31/19 01/31/19 23:59 11:59 23:59 Intake Total 790 / 1185 120 / 360 240 / 360 Output Total 550 / 1550 300 / 300 Balance 240 / -365 -180 / 60 240 / 60 Weight 90.5 kg Intake: Oral 790 / 1185 120 / 360 240 / 360 Output: Urine 550 / 1550 300 / 300 Other: Urine Color Yellow Yellow Urine Appearance Clear Clear Urine Odor Normal Comment pt also soaked herself and her bed voided a large amount on the BSC Mixed with stool. Stool Size Small Small Stool Characteristics Hard Soft Brown Formed Voiding Methods Bedside Commode Diaper Bedside Commode Incontinent Incontinent Completed studies during hospitalization [Text1]: CXR 01/19/19: Bilateral intrapulmonary infiltrates, no gross interval change from 01/18/19. CT abdomen/pelvis 01/28/19: Question mild thickening of the wall of the gastric antrum. Inflammatory or infectious process could not be excluded. Please correlate with the patient's past medical history and clinical findings. CXR 01/30/19: Overall improved appearance of the chest with small residual infiltrate in the right parahilar region. Labs on day of discharge: Labs from last 24 hours 01/31/19 01/31/19 01/31/19 11:07 06:15 06:15 WBC 20.07 H RBC 4.01 Hgb 12.2 Hct 36.6 MCV 91.3 MCH 30.4 MCHC 33.3 RDW 15.1 H Plt Count 259 MPV 10.3 Immature Gran % 2.0 Neutrophils % 84.2 Lymphocytes % 8.3 Monocytes % 5.3 Eosinophils % 0.0 Basophils % 0.2 Absolute Neutrophils 16.90 H Absolute Lymphocytes 1.67 Absolute Monocytes 1.06 H Absolute Eosinophils 0.00 Absolute Basophils 0.04 Differential Comment Agrees w/ instrument RBC Morphology Normal Sodium 140 Potassium 3.8 D Chloride 101 Carbon Dioxide 30.6 Anion Gap 8.4 BUN 45 H Creatinine 1.27 H Estimated GFR/1.73 m2 41.97 Glucose 150 H D Calcium 9.5 Magnesium 2.2 Urine Color Yellow Urine Clarity Clear Urine pH 6.0 Ur Specific [place] 1.020 Urine Protein Trace H Urine Ketones Negative Urine Blood Negative Urine Nitrite Negative Urine Bilirubin Negative Urine Urobilinogen 0.2 Ur Leukocyte Esterase Negative Urine RBC Negative Urine WBC 0-2 Ur Epithelial Cells Few Urine Crystals Negative Urine Bacteria Rare Urine Casts Negative Urine Mucus Negative Urine Other Moderate yeast Ur Culture Indicated? C&s done as ordered Urine Glucose Negative 01/31/19 11:07 Urine - Clean Catch Urine Culture - Pending Preliminary micro results at discharge 01/31/19 11:07 Urine Culture - Pending Urine - Clean Catch [facility] Medical History Internal derangement of right knee (Chronic) Back pain (Chronic) Asthma (Chronic) Osteoporosis (Chronic 03/16/18) Neck pain (Chronic 03/16/18) Migraine (Chronic 04/03/14) Long-term use of high-risk medication (Chronic 03/16/18) Interstitial lung disease (Chronic 03/16/18) History of shingles (Resolved 03/16/18) Gastroesophageal reflux disease without esophagitis (Chronic 03/16/18) Essential hypertension (Chronic 07/17/13) Edema (Chronic 03/16/18) Dyspnea (Chronic 03/16/18) Depressive disorder (Chronic) Cubital tunnel syndrome (Resolved 03/16/18) Cognitive impairment (Chronic 03/16/18) Chronic constipation (Chronic 03/16/18) Anxiety (Chronic 03/16/18) Acute gastroenteritis (Resolved 03/16/18) Umbilical hernia (Chronic) Type II diabetes mellitus, uncontrolled (Chronic) Total urinary incontinence (Chronic) Shoulder pain (Chronic) Post herpetic neuralgia (Chronic 03/16/18) Peripheral neuralgia (Chronic) 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) Hyperlipemia (Acute) Asthma (Chronic) Insulin dependent diabetes mellitus (Chronic) Surgical History Appendectomy Arthroscopy, Shoulder Bilateral salpingectomy with oophorectomy section Cholecystectomy Ligation of fallopian tube Thoracoscopic (R)Lung Bx (02/12/18) Family History Mother Diabetes Essential hypertension CHF (congestive heart failure) Heart disease Father Diabetes Essential hypertension CAD (coronary artery disease) Heart disease Hyperlipidemia Stroke Sister Diabetes Personal history of malignant neoplasm Asthma Brother Diabetes Essential hypertension Personal history of malignant neoplasm Hyperlipidemia Asthma Social History Smoking/Tobacco Use Status: Never Alcohol Intake: never Details: monthly or less Drug use: Never Substance use type: does not use Adopted: No Caregiver/Support person: No Foster care: No Household members: other Details: grandson Housing: apartment Number of Children: 2 current occupation: disabled What type of physical activity do you participate in: none Duration: 15-30 minutes/day Frequency: daily Drive intox or ride w/intox 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
--- NOTE | 2019-01-31 17:19 | INPN_ITS ---
Date of service: 01/31/19 Time of Service: 10:35 PT Notes Inpatient Physical Therapy Progress Note Date: 01/31/2019 Dates of Service: 01/25/19 through 01/31/19 Precautions: Fall. Standard. Subjective: Patient reported that she had a headache last night but she feels a lot better this morning. She looks forward to going home today. She is agreeable to a PT session. Objective: General Observation: Patient continues to have dyspnea on exertion but is staying above 90% on 1 L/min. Mental Status: Alert and oriented x3 Pain: 0/10. Bed Mobility/Transfers: Rolling independent Supine to sit independent Sit to supine independent Sit to stand independent Stand to sit independent Bed to chair independent Chair to bed independent Gait: Patient was able to tolerate level surface ambulation for up to 200 feet using her FWW with SaO2 ranging from 88% through 95% 1 L of oxygen per minute. In the afternoon, patient was able to tolerate up to 250 feet using her front wheeled walker with SaO2 ranging from 88-95% on 1 L/min and heart rate of 98 bpm. Patient required only SBA for ambulation activity during both sessions. Balance: Static Sitting: Normal Dynamic Sitting: Normal Static Standing: Good Dynamic Standing: Fair Informed Consent/Education: Patient instructed in purpose of continued skilled physical therapy services. She was advised about continuing with home health PT services progress mobility level and further develop her activity tolerance. Assessment: Patient is a 68 year old female referred to physical therapy services with the diagnosis of COPD exacerbation. Patient presents with clinical signs and symptoms consistent with current/admitting diagnoses that have resulted to mobility limitations, gait instability, generalized weakness, and lack of motor control as demonstrated by the following impairment level findings: 1. Impaired balance 2. Impaired activity tolerance Impairments are contributing to the following functional limitations: 1. Inability to safely ambulate without assistive device and physical assistance 2. Increase completion time for mobility ADL performance 3. Increased fall risk 4. Inability to negotiate steps alone safely Patient is assessed as a Moderate 90041 complexity based on the following: History: 68-year-old female with COPD exacerbation compounded by past medical history and comorbidities Examination: Underlying impairments and functional deficits as noted above Presentation: Evolving Decision Makin moderate complexity Goals: Goals X1 week 1. Gait ambulating initially with a wheeled walker, greater than 150 feet 2. Stairs- independent 3. Independent with home exercise program 4. Patient will score 56/56 on the Bonilla balance test in order to reduce fall risk Plan of Care/Treatment Plan: 1-2x/day, 7 days/week x 1 week. Plan of care has been reviewed with the [employer] providing the service under Physical Therapy direction. Continue with physical Therapy intervention for strengthening, bed mobility, transfers, gait, stairs, balance training, use of assistive device. DISCHARGE RECOMMENDATION: Patient will highly benefit from home health physical therapy services in order to progress mobility level, maximize activity tolerance, assess home safety, and establish/implement functional maintenance program for HEP and fall reduction. Patient will require FWW for energy conservation and fall reduction. TREATMENT CODE/TIME: 39999 26 minutes beginning at 10:35 AM. [id number] 23 minutes beginning at 14:52 PM. Thank you for this referral. Iva Roldan, PT, DPT, CLT [facility]
--- NOTE | 2019-01-31 17:55 | HHF2F_ITS ---
1. Encounter Date and Reason I certify that ZION NUNEZ was seen by Randi Dyer on 01/31/19 and that I had a [id number] encounter with this patient that meets the physician face to face encounter requirements. 2. Clinical Findings Supporting Skilled Need and Homebound Status I certify that home health services are medically necessary, include either intermittent assisted and/or physical/speech therapy, and that this patient is homebound in that absences from the home require considerable and taxing effort and are infrequent or of short duration, or are attributable to the need to receive medical care. [X] (a) Attached documentation from encounter provides clinical findings supporting skilled need and homebound status (including what assistance patient requires to leave the home). The encounter with the patient was in whole, or in part, for the following medical condition, which is the primary reason for home health care: PNEUMONIA, COPD EXACERBATION Senior Care: assessment/teaching about COPD, diabetes at home Physical Therapy: eval and treat Homebound: unable to leave home without assistance 3. Certification and Authentication I certify that I composed the above information based on my clinical judgement relating to this patient's medical condition and, if applicable, clinical findings communicated to me by the NPP or inpatient physician who performed the Home Health Referral. All further orders will be obtained through Dr Garcia (Community Based Physician - PCP)
[2019-01-31] MEDS: Bacitracin 1 PACKET (18:44)
--- NOTE | 2019-02-01 09:59 | INDS_ITS ---
Date of service: 02/01/19 PT Notes Inpatient Physical Therapy Discharge Summary Dates: 01/31/2019 Dates of Service: 01/25/19 through 01/31/19 Precautions: Fall. Standard. Patient Profile/Admitting Diagnosis: 68-year-old female admitted to the hospital on January 20 with pneumonia and sepsis, uncontrolled diabetes, acute kid robinson injury. PMHX: Medical History Internal derangement of right knee (Chronic) Back pain (Chronic) Asthma (Chronic) Osteoporosis (Chronic 03/16/18) Neck pain (Chronic 03/16/18) Migraine (Chronic 04/03/14) Long-term use of high-risk medication (Chronic 03/16/18) Interstitial lung disease (Chronic 03/16/18) History of shingles (Resolved 03/16/18) Gastroesophageal reflux disease without esophagitis (Chronic 03/16/18) Essential hypertension (Chronic 07/17/13) Edema (Chronic 03/16/18) Dyspnea (Chronic 03/16/18) Depressive disorder (Chronic) Cubital tunnel syndrome (Resolved 03/16/18) Cognitive impairment (Chronic 03/16/18) Chronic constipation (Chronic 03/16/18) Anxiety (Chronic 03/16/18) Acute gastroenteritis (Resolved 03/16/18) Umbilical hernia (Chronic) Type II diabetes mellitus, uncontrolled (Chronic) Total urinary incontinence (Chronic) Shoulder pain (Chronic) Post herpetic neuralgia (Chronic 03/16/18) Peripheral neuralgia (Chronic) 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 Apartment is on the first floor with 4 steps with a railing entering the building. Her bedroom bathroom is on the first floor. She shares a vehicle with her brother, but also uses RCT, which she takes to the [facility] 5 days/week. Current Functional Limitations: Prior to admission, she was independent with all ADLs including dressing, bathing, shopping, making her meals, and taking short trips whether with RCT or her personal vehicle. Equipment Owned/DME: Did not require assistive devices with ambulation and she has grab bars around her tub. This is a clinical summary of physical therapy services provided for patient on patient dates listed above. No charge was made in the completion of this documentation. Subjective: Patient reported that she had a headache last night but she feels a lot better this morning. She looks forward to going home today. She is agreeable to a PT session. She states that she has been exercising trying to walk inside her room as she is able using her FWW. Objective: General Observation: Patient continues to have dyspnea on exertion but is staying above 90% on 1 L/min. Mental Status: Alert and oriented x3 Pain: 0/10. ROM: Has full pain-free functional range of motion throughout without pain on movement Strength: Has full motor control and her strength is generally rated +4/5 Sensation: Intact to light touch and proprioception. BED MOBILITY/TRANSFERS Rolling independent Supine to sit independent Sit to supine independent Sit to stand independent Stand to sit independent Bed to chair independent Chair to bed independent Gait: Patient was able to tolerate level surface ambulation for up to 200 feet using her FWW with SaO2 ranging from 88% through 95% 1 L of oxygen per minute. In the afternoon, patient was able to tolerate up to 250 feet using her front wheeled walker with SaO2 ranging from 88-95% on 1 L/min and heart rate of 98 bpm. Patient required only SBA for ambulation activity during both sessions. Balance: Static Sitting: Normal Dynamic Sitting: Normal Static Standing: Good Dynamic Standing: Fair Informed Consent/Education: Patient instructed in purpose of continued skilled physical therapy services. She was advised about continuing with home health PT services progress mobility level and further develop her activity tolerance. Assessment: Patient is a 68 year old female referred to physical therapy services with the diagnosis of COPD exacerbation. Patient presents with clinical signs and symptoms consistent with current/admitting diagnoses that have resulted to mobility limitations, gait instability, generalized weakness, and lack of motor control as demonstrated by the following impairment level findings: 1. Impaired balance 2. Impaired activity tolerance Impairments are contributing to the following functional limitations: 1. Inability to safely ambulate without assistive device and physical assistance 2. Increase completion time for mobility ADL performance 3. Increased fall risk 4. Inability to negotiate steps alone safely Goals X1 week 1. Gait ambulating initially with a wheeled walker, greater than 150 feet 2. Stairs- independent 3. Independent with home exercise program 4. Patient will score 56/56 on the Bonilla balance test in order to reduce fall risk DISCHARGE RECOMMENDATION: Patient will highly benefit from home health physical therapy services in order to progress mobility level, maximize activity tolerance, assess home safety, and establish/implement functional maintenance program for HEP and fall reduction. Patient will require FWW for energy conservation and fall reduction. TREATMENT CODE/TIME: 08653 26 minutes beginning at 10:35 AM. [id number] 23 minutes beginning at 14:52 PM. Thank you for this referral. Iva Roldan, PT, DPT, CLT [facility] SUBJECTIVE: []
== END 2019-01-31 19:40 | disposition home health service (06) | DRG 871 ==
LOC: ER 01-20 00:21 → ICU 01-20 00:40 → MS 01-31 17:40 → ICU 02-05 11:20
PROVIDERS: Internal Medicine; Admitting Provider Internal Medicine; Emergency Provider Student in an Organized Health Care Education/Training Program; PCP Family Medicine; Visit Provider Internal Medicine
DX: J96.21 Acute and chronic respiratory failure with hypoxia; J18.9 Pneumonia, unspecified organism; J44.0 Chronic obstructive pulmonary disease with (acute) lower respiratory infection; J44.1 Chronic obstructive pulmonary disease with (acute) exacerbation; N17.9 Acute kidney failure, unspecified; R65.20 Severe sepsis without septic shock; E11.65 Type 2 diabetes mellitus with hyperglycemia; T38.0X5A Adverse effect of glucocorticoids and synthetic analogues, initial encounter; K29.00 Acute gastritis without bleeding; I10 Essential (primary) hypertension; K21.9 Gastro-esophageal reflux disease without esophagitis; Z79.4 Long term (current) use of insulin; Z79.52 Long term (current) use of systemic steroids; Z77.22 Contact with and (suspected) exposure to environmental tobacco smoke (acute) (chronic); Z71.3 Dietary counseling and surveillance; Z99.81 Dependence on supplemental oxygen; A41.9 Sepsis, unspecified organism
CPT/HCPCS: 36410; 36415; 36569; 36591; 36592; 80048; 80053; 80076; 83690; 87040; 87449; 93005; 94640; 96361; 96365; 97110; 97162; 97166; 97530; 97535; 99223; 99232; 99233; 99239; 99285; J1650; 71045; 71046; 74177; 80202; 81003; 81015; 83605; 83735; 83880; 84484; 85025; 87070; 87086; 87205; 87450; 87581; 93010; 94660; J1720; J1956; J2543; J2930; J3490; J7512; J7613; J7620; J7626; Q9967

== ENCOUNTER 2019-02-02 14:14 | Emergency (ER) | payer OTHER, MEDICAID, SELFPAY ==
[2019-02-02 14:12] VITALS: BP 104/37; PULSE 103; RESP 15; TEMP 36.6; O2SAT 97
[2019-02-02] MEDS: Metoclopramide 10 MG/2 ML VIAL IVP (14:27)
[2019-02-02] MEDS: Loperamide 2 MG CAP 4 MG PO (14:28)
--- NOTE | 2019-02-02 14:28 | W.ED.GENAD ---
Discharge Plan Disposition Patient Disposition: HOME Condition: Improving Discharge Details Chief Complaint: Nausea/Vomit/Diar Clinical Impression: Abdominal pain, Vomiting, Diarrhea Primary Care Provider: Mario Garcia ED Provider: Jason Ordonez Home Meds and New Rx's Prescriptions: New metoclopramide HCl [Reglan] 10 mg tablet 10 mg PO Q6H Qty: 10 RF: 0 No Action cyclobenzaprine 5 mg tablet 5 mg PO TID PRN (Reason: muscle spasm) Qty: 42 RF: 3 Breo Ellipta 200-25 mcg/dose blister with device 1 inh IH DAILY Qty: 60 RF: 6 albuterol sulfate 2.5 mg /3 mL (0.083 %) solution for nebulization 2.5 mg Inhalation Q6H PRN (Reason: shortness of breath or wheezing) Qty: 10 RF: 6 compress.stocking,knee,reg,lrg misc .ROUTE .MEDSUPPLY Qty: 2 RF: 0 simvastatin 40 MG tablet 1 tab PO HS Qty: 90 RF: 4 albuterol sulfate [Ventolin HFA] 8 GM HFA aerosol inhaler 2 puff Inhalation Q4H PRN Qty: 1 RF: 4 lancets 1 EACH misc 1 ea Miscellaneous TID PRNQty: 400 RF: 3 escitalopram oxalate 10 MG tablet 10 mg PO .NOON RF: 0 Blood Glucose Test 1 EACH strip 1 ea Miscellaneous TID PRNQty: 400 RF: 4 pen needle, diabetic [Pen Needle] 1 EACH needle 1 ea Miscellaneous QID Qty: 4 RF: 3 epinephrine [EpiPen 2-Gordon] 0.3 MG/0.3 ML auto-injector 0.3 mg IM ONCE Qty: 1 RF: 0 blister gordon RF: 0 losartan 25 mg tablet 25 mg PO BID 39 Days Qty: 60 RF: 6 bisacodyl 5 mg tablet,delayed release (DR/EC) 5 mg PO DAILY Qty: 30 RF: 11 donepezil 5 mg tablet,disintegrating 5 mg PO DAILY Qty: 30 RF: 11 glimepiride 4 mg tablet 4 mg PO BID Qty: 60 RF: 11 benzonatate 100 mg capsule 100 mg PO QID PRN (Reason: cough) Qty: 60 RF: 1 Oxygen Tank .ROUTE .MEDSUPPLY Qty: 1 RF: 0 furosemide 20 mg tablet 20 mg PO BID PRN (Reason: leg swelling) Qty: 180 RF: 3 Tradjenta 5 mg tablet 5 mg PO DAILY Qty: 30 RF: 6 Humalog KwikPen Insulin 100 unit/mL insulin pen See Rx Instructions subcut as directed 30 Days Qty: 15 RF: 6 acetaminophen [Tylenol Extra Strength] 500 mg Tablet 1,000 mg PO Q6H PRNRF: 0 pantoprazole 40 mg Tablet,Delayed Release (Dr/Ec) 40 mg PO BID Qty: 60 RF: 0 guaifenesin [Mucinex] 600 mg Tablet Extended Release 12hr 1,200 mg PO BID PRN PRN (Reason: cough) Qty: 30 RF: 0 dextromethorphan-guaifenesin 10-100 mg/5 mL Syrup 10 ml PO Q4H PRN PRNQty: 100 RF: 0 ketoconazole 2 % Cream 1 applic topical BID Qty: 30 RF: 0 sucralfate 1 gram Tablet 1 g PO AC & HS Qty: 120 RF: 0 prednisone 20 mg Tablet 20 mg PO DAILY Qty: 2 RF: 0 acidophilus-pectin, citrus 25 million cell -100 mg Tablet 1 cap PO TID Qty: 90 RF: 0 Lantus Solostar U-100 Insulin 100 unit/mL (3 mL) insulin pen 70 unit SC HS Qty: 15 RF: 3 Discharge Instructions Instructions: Abdominal Pain (ED) Additional Instructions: 1. Drink plenty of fluids. 2. Continue all medications as prescribed. 3. Acetaminophen 1000mg every 4 hours (up to 5 time a day) and/or ibuprofen 600mg every 6 hours as needed for fever or pain. 4. Imodium 2 mg with each additional episode of diarrhea up to 8 times per day. 5. Reglan 10 mg every 6 hours as needed for nausea. 2 Return to the Emergency Department (ED) if your condition worsens, does not improve as expected, or for ANY other concerns. Specifically, return if you have new or uncontrolled pain, worsening fever, difficulty breathing, vomiting, or are unable to drink fluids. Medical Decision Making 68-year-old who presents with new onset generalized abdominal pain, nausea/emesis, and diarrhea since yesterday evening. Has been unable to tolerate significant oral intake without emesis. No significant distress on arrival with an exam sitting for mild diffuse abdominal tenderness with no rebound, guarding, or peritonitis. Clinically improved after receiving IV crystalloid, IV metoclopramide, and 4 mg of oral Imodium. Had no further emesis or diarrhea while in the emergency department. Labs significant for an isolated leukocytosis with no metabolic acidosis.. Later, tolerating oral clementine christopher without any difficulty and without any emesis. Discharged home with a prescription for metoclopramide and with instructions to use Imodium 2 mg as needed for additional episodes of diarrhea up to 8 times per day. Pt evaluated immediately prior to discharge with improved symptoms, normal vital signs, and tolerating PO. The patient feels appropriate for discharge home. Discussed clinical/diagnostic findings. Discharged with a clear plan for outpatient follow up. Given usual and customary return instructions prior to discharge. Medical Records Medical records reviewed: Yes I reviewed the patient's medical records. Lab Data Lab results reviewed: Yes I reviewed the patient's lab results. Lab results narrative: Laboratory Results - last 24 hr 02/02/19 02/02/19 14:35 14:35 WBC 14.69 H RBC 4.30 Hgb 12.9 Hct 39.7 MCV 92.3 MCH 30.0 MCHC 32.5 RDW 15.6 H Plt Count 276 MPV 9.9 Immature Gran % See Differential Neutrophils % 68.0 Band Neutrophils % 3.0 Lymphocytes % 15.0 Atypical Lymphs % 2 Monocytes % 8.0 Eosinophils % 0.0 Basophils % 0.0 Metamyelocytes % 3.0 Myelocytes % 1.0 Absolute Neutrophils 10.43 H Absolute Lymphocytes 2.50 Absolute Monocytes 1.18 H Absolute Eosinophils 0.00 Absolute Basophils 0.00 Differential Comment Manual differential RBC Morphology Normal Sodium 143 Potassium 3.4 L Chloride 105 Carbon Dioxide 29.1 Anion Gap 8.9 BUN 30 H D Creatinine 1.07 H Estimated GFR/1.73 m2 51.15 Glucose 154 H Calcium 8.7 HPI 68-year-old woman with a past medical history which includes asthma, osteoporosis, migraine headaches, interstitial lung disease, GERD, and essential hypertension. Presents with persistent nausea/emesis, diarrhea, and generalized abdominal discomfort since yesterday evening. Symptoms were sudden in onset and not associated with a specific inciting event. Emesis has been nonbilious and nonbloody. She denies melena or hematochezia. Has been unable to tolerate significant oral intake because of subsequent emesis. Abdominal pain is generalized and is not similar to previous episodes. She denies a history of previous abdominal surgery or obstruction. Otherwise, she denies having fever/chills, dyspnea, chest pain, palpitations, urinary symptoms. General Date/Time Provider Initiated Documentation: 02/02/19 14:19. Related Data Home Medications Medication Instructions Recorded Confirmed albuterol sulfate [Ventolin HFA] 2 puff INHALATION Q4H PRN #1 10/09/14 02/02/19 inhaler simvastatin 1 tab PO HS #90 tab 10/09/14 02/02/19 lancets #400 ea 12/02/14 01/18/19 escitalopram oxalate 10 mg PO .NOON tab-cap 03/22/18 02/02/19 Blood Glucose Test #400 strip 03/23/18 01/18/19 pen needle, diabetic [Pen Needle] #4 box 03/23/18 01/18/19 epinephrine [EpiPen 2-Gordon] 0.3 mg IM ONCE #1 pack 05/07/18 02/02/19 losartan 25 mg tablet 25 mg PO BID 39 Days #60 tab-cap 07/09/18 02/02/19 bisacodyl 5 mg tablet,delayed 5 mg PO DAILY #30 tab-cap 08/03/18 02/02/19 release donepezil 5 mg disintegrating 5 mg PO DAILY #30 tab-cap 08/03/18 02/02/19 tablet glimepiride 4 mg tablet 4 mg PO BID #60 tab-cap 08/03/18 02/02/19 acetaminophen [Tylenol Extra 1,000 mg PO Q6H PRN 08/06/18 02/02/19 Strength] cyclobenzaprine 5 mg tablet 5 mg PO TID PRN #42 tab-cap 09/06/18 02/02/19 fluticasone furoate 200 1 inh IH DAILY #60 each 09/06/18 01/19/19 mcg-vilanterol 25 mcg/dose inhalation powder compression stocking,knee #2 each 10/29/18 01/18/19 high,regular,large circumfer. albuterol sulfate 2.5 mg/3 mL 2.5 mg INHALATION Q6H PRN #10 vial 11/09/18 02/02/19 (0.083 %) solution for nebulization benzonatate 100 mg capsule 100 mg PO QID PRN #60 cap 11/12/18 02/02/19 Oxygen #1 each 11/29/18 01/18/19 furosemide 20 mg tablet 20 mg PO BID PRN #180 tab 11/30/18 02/02/19 linagliptin 5 mg tablet 5 mg PO DAILY #30 tab 12/18/18 02/02/19 insulin lispro (U- 100) 100 See Rx Instructions SUBCUT as 01/02/19 02/02/19 unit/mL subcutaneous pen directed 30 Days #15 ml Lantus Solostar U-100 Insulin 70 unit SC HS #15 ml 01/31/19 02/02/19 acidophilus-pectin, citrus 1 cap PO TID #90 tab 01/31/19 02/02/19 dextromethorphan-guaifenesin 10 ml PO Q4H PRN PRN #100 ml 01/31/19 02/02/19 guaifenesin [Mucinex] 1,200 mg PO BID PRN PRN #30 tab 01/31/19 02/02/19 ketoconazole 1 applic TOPICAL BID #30 gm 01/31/19 02/02/19 pantoprazole 40 mg PO BID #60 tab 01/31/19 02/02/19 prednisone 20 mg PO DAILY #2 tab 01/31/19 02/02/19 sucralfate 1 g PO AC & HS #120 tab 01/31/19 02/02/19 metoclopramide HCl [Reglan] 10 mg PO Q6H #10 tab 02/02/19 Previous Rx's Medication Instructions Recorded pen needle, diabetic [Pen Needle] #4 box 03/23/18 epinephrine [EpiPen 2-Gordon] 0.3 mg IM ONCE #1 pack 05/07/18 losartan 25 mg tablet 25 mg PO BID 39 Days #60 tab-cap 07/09/18 bisacodyl 5 mg tablet,delayed 5 mg PO DAILY #30 tab-cap 08/03/18 release donepezil 5 mg disintegrating 5 mg PO DAILY #30 tab-cap 08/03/18 tablet glimepiride 4 mg tablet 4 mg PO BID #60 tab-cap 08/03/18 cyclobenzaprine 5 mg tablet 5 mg PO TID PRN #42 tab-cap 09/06/18 fluticasone furoate 200 1 inh IH DAILY #60 each 09/06/18 mcg-vilanterol 25 mcg/dose inhalation powder compression stocking,knee #2 each 10/29/18 high,regular,large circumfer. albuterol sulfate 2.5 mg/3 mL 2.5 mg INHALATION Q6H PRN #10 vial 11/09/18 (0.083 %) solution for nebulization benzonatate 100 mg capsule 100 mg PO QID PRN #60 cap 11/12/18 furosemide 20 mg tablet 20 mg PO BID PRN #180 tab 11/30/18 linagliptin 5 mg tablet 5 mg PO DAILY #30 tab 12/18/18 insulin lispro (U- 100) 100 See Rx Instructions SUBCUT as 01/02/19 unit/mL subcutaneous pen directed 30 Days #15 ml Lantus Solostar U-100 Insulin 70 unit SC HS #15 ml 01/31/19 acidophilus-pectin, citrus 1 cap PO TID #90 tab 01/31/19 dextromethorphan-guaifenesin 10 ml PO Q4H PRN PRN #100 ml 01/31/19 guaifenesin [Mucinex] 1,200 mg PO BID PRN PRN #30 tab 01/31/19 ketoconazole 1 applic TOPICAL BID #30 gm 01/31/19 pantoprazole 40 mg PO BID #60 tab 01/31/19 prednisone 20 mg PO DAILY #2 tab 01/31/19 sucralfate 1 g PO AC & HS #120 tab 01/31/19 metoclopramide HCl [Reglan] 10 mg PO Q6H #10 tab 02/02/19 Allergies Allergy/AdvReac Type Severity Reaction Status Date / Time aspirin Allergy Unknown HIVES, Verified 02/02/19 14:43 flip out diclofenac Allergy Unknown RASH Verified 02/02/19 14:43 latex Allergy Unknown SKIN Verified 02/02/19 14:43 BREAKDOWN NSAIDS (Non-Steroidal Allergy Unknown HIVES, Verified 02/02/19 14:43 Anti-Inflamma VOMITING morphine AdvReac Unknown VOMITING Verified 02/02/19 14:43 General Stated Complaint: Nausea/Vomit/Diar ALVIN: 3 Review of Systems Review of Systems All systems are reviewed and are unremarkable except as noted in HPI and below: CONSTITUTIONAL: no fevers/chills, no weakness or change in appetite EYES: no change in vision HEENT: no throat pain or difficulty swallowing; no neck pain CARDIOVASCULAR: no chest pain, palpitations, leg swelling, or diaphoresis RESPIRATORY: no cough, dyspnea, wheezing GASTROINTESTINAL: Generalized abdominal pain, nausea/emesis, diarrhea GENITOURINARY: no dysuria, flank pain, MUSCULOSKELETAL: no pack pain, myalgias, arthralgias INTEGUMENTARY: no rash, no wounds NEUROLOGIC: no headache, focal weakness, difficulty with speech, numbness PSYCHIATRIC: no confusion, no anxiety HEME: no easy bruising or bleeding ALLERGIC: no urticaria [facility] Medical History Internal derangement of right knee (Chronic) Back pain (Chronic) Asthma (Chronic) Osteoporosis (Chronic 03/16/18) Neck pain (Chronic 03/16/18) Migraine (Chronic 04/03/14) Long-term use of high-risk medication (Chronic 03/16/18) Interstitial lung disease (Chronic 03/16/18) History of shingles (Resolved 03/16/18) Gastroesophageal reflux disease without esophagitis (Chronic 03/16/18) Essential hypertension (Chronic 07/17/13) Edema (Chronic 03/16/18) Dyspnea (Chronic 03/16/18) Depressive disorder (Chronic) Cubital tunnel syndrome (Resolved 03/16/18) Cognitive impairment (Chronic 03/16/18) Chronic constipation (Chronic 03/16/18) Anxiety (Chronic 03/16/18) Acute gastroenteritis (Resolved 03/16/18) Umbilical hernia (Chronic) Type II diabetes mellitus, uncontrolled (Chronic) Total urinary incontinence (Chronic) Shoulder pain (Chronic) Post herpetic neuralgia (Chronic 03/16/18) Peripheral neuralgia (Chronic) 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) Hyperlipemia (Acute) Asthma (Chronic) Insulin dependent diabetes mellitus (Chronic) Surgical History Appendectomy Arthroscopy, Shoulder Bilateral salpingectomy with oophorectomy section Cholecystectomy Ligation of fallopian tube Thoracoscopic (R)Lung Bx (02/12/18) Family History Mother Diabetes Essential hypertension CHF (congestive heart failure) Heart disease Father Diabetes Essential hypertension CAD (coronary artery disease) Heart disease Hyperlipidemia Stroke Sister Diabetes Personal history of malignant neoplasm Asthma Brother Diabetes Essential hypertension Personal history of malignant neoplasm Hyperlipidemia Asthma Social History Smoking/Tobacco Use Status: Never Alcohol Intake: never Details: monthly or less Drug use: Never Substance use type: does not use Adopted: No Caregiver/Support person: No Foster care: No Household members: other Details: grandson Housing: apartment Number of Children: 2 current occupation: disabled What type of physical activity do you participate in: none Duration: 15-30 minutes/day Frequency: daily Drive intox or ride w/intox 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 GENERAL: alert, active, uncomfortable, dry mucosa, well-nourished HEENT: atraumatic/normocephalic, PERRLA, EOMI, conjunctiva clear, external ears/canals normal, nasal mucosa normal NECK: supple, full range of motion, no mass, normal lymphadenopathy, no thyromegaly CARDIOVASCULAR: RRR, no murmurs, nl pulses, no edema PULMONARY: nl effort, no audible wheezing or stridor, nl breath sounds with no focal deficit. no chest wall tenderness ABDOMEN: soft, non-distended, no mass, no organomegaly; diffuse tenderness, no rebound, guarding, or peritonitis. EXTREMITY: normal muscle tone, all joints with FROM, no deformity or tenderness SKIN: no exanthem appreciated NEURO: gross motor exam normal, normal stance and gait PSYCH: alert and oriented, Course Vital Signs Temperature 97.9 F 02/02/19 14:12 Pulse 103 H 02/02/19 14:12 Respiratory Rate 15 02/02/19 14:12 Blood Pressure 104/37 L 02/02/19 14:12 Pulse Oximetry 97 02/02/19 14:12 Temperature 97.9 F 02/02/19 14:12 Temperature Source Temporal Artery Scan 02/02/19 14:12 Pulse 103 H 02/02/19 14:12 Respiratory Rate 15 02/02/19 14:12 Blood Pressure 104/37 L 02/02/19 14:12 Pulse Oximetry 97 02/02/19 14:12 Oxygen Delivery Method Nasal Cannula 02/02/19 14:12 Oxygen Flow Rate 2 02/02/19 14:12 Pain Level 5 02/02/19 14:12
[2019-02-02] MEDS: Normal Saline Flush 10 ML SYR IVP (14:42)
[2019-02-02] MEDS: Lactated Ringers 1,000 ML 1000 ML IV (14:42)
[2019-02-02 14:52] LABS: Abs Immature Grans 0.46 k/cumm (0.0-0.09); HCT 39.7 % (36.0-46.0); HGB 12.9 g/dL (12.0-15.5); Mean Corp. HGB Concentration 32.5 g/dL (32.0-36.0); Mean Corpuscular Volume 92.3 fL (80-95); Mean Platelet Volume 9.9 fL (8.0-11.0); RBC Distribution Width 15.6 % (11.7-14.6); White Blood Cell Count 14.69 k/cumm (4.4-10.8)
[2019-02-02 14:54] LABS: Anion Gap 8.9 mmol/L (3-11); BUN 30 mg/dL (7-18); CO2 29.1 mmol/L (21.0-32.0); CREATININE 1.07 mg/dL (0.55-1.02); Calcium 8.7 mg/dL (8.5-10.1); Chloride 105 mmol/L (98-107); Estimated GFR 51.15 (mL/min/1.73m2); Glucose 154 mg/dL (70-100); Potassium 3.4 mmol/L (3.5-5.1); Sodium 143 mmol/L (136-145)
[2019-02-02 15:17] LABS: Absolute Monocyte Count 1.18 k/cumm (0.11-0.7); Absolute Neutrophil Count 10.43 k/cumm (1.2-6.7); Atypical Lymphocytes % 2; Diff Comment Manual Differential; RBC Morphology Normal
[2019-02-02 15:18] LABS: Platelet Count 276 x1000/uL (130-400)
[2019-02-02 18:33] VITALS: BP 104/37; PULSE 103; RESP 15; TEMP 36.6; O2SAT 97
== END 2019-02-02 15:50 | disposition home or self-care (01) ==
PROVIDERS: Emergency Provider Emergency Medicine; PCP Family Medicine
DX: R10.9 Unspecified abdominal pain (principal); R11.2 Nausea with vomiting, unspecified; R19.7 Diarrhea, unspecified; I10 Essential (primary) hypertension
CPT/HCPCS: 36415; 80048; 96361; 96374; 99284; 85025; J2765

== ENCOUNTER 2019-02-05 15:04 | Outpatient (REF) | payer OTHER, MEDICAID, SELFPAY ==
[2019-02-05 15:20] LABS: Abs Immature Grans 0.09 k/cumm (0.0-0.09); Absolute Basophil Count 0.01 k/cumm (0.0-0.2); Absolute Eosinophil Count 0.18 k/cumm (0.0-0.7); Absolute Lymphocyte Count 1.62 k/cumm (1.2-3.4); Absolute Monocyte Count 0.88 k/cumm (0.11-0.7); Absolute Neutrophil Count 7.27 k/cumm (1.2-6.7); Basophils % 0.1; Eosinophils % 1.8; HCT 34.9 % (36.0-46.0); HGB 11.2 g/dL (12.0-15.5); Immature Grans % 0.9; Lymphocytes % 16.1; Mean Corp. HGB Concentration 32.1 g/dL (32.0-36.0); Mean Corpuscular Hemoglobin 30.7 pg (27.0-33.0); Mean Corpuscular Volume 95.6 fL (80-95); Mean Platelet Volume 10.4 fL (8.0-11.0); Monocytes % 8.8; Neutrophils % 72.3; Platelet Count 222 x1000/uL (130-400); RBC 3.65 m/cumm (4.00-5.20); RBC Distribution Width 15.8 % (11.7-14.6); White Blood Cell Count 10.05 k/cumm (4.4-10.8)
[2019-02-05 15:42] LABS: Anion Gap 9.8 mmol/L (3-11); BUN 15 mg/dL (7-18); CO2 28.2 mmol/L (21.0-32.0); CREATININE 1.03 mg/dL (0.55-1.02); Calcium 8.6 mg/dL (8.5-10.1); Chloride 105 mmol/L (98-107); Estimated GFR 53.45 (mL/min/1.73m2); Glucose 211 mg/dL (70-100); Sodium 143 mmol/L (136-145)
== END 2019-02-05 15:24 ==
LOC: LBN 15:04
PROVIDERS: Internal Medicine; PCP Family Medicine; Visit Provider Family Medicine
DX: D72.829 Elevated white blood cell count, unspecified (principal); N17.9 Acute kidney failure, unspecified
CPT/HCPCS: 80048; 85025

== ENCOUNTER 2019-02-07 00:33 | Outpatient (CLI) | payer OTHER, MEDICAID, SELFPAY ==
--- NOTE | 2019-02-07 11:20 | DI.CT_ITS ---
SYMPTOMS/DIAGNOSIS: INTERSTITIAL LUNG DISEASE, J84.[address]: Noncontrast CT examination of the chest was performed. The examination is compared with previous examination of 04/26/18. Note is again made of mild hepatomegaly. Otherwise the visualized intra-abdominal structures are unremarkable in appearance. Previously noted suture material again seen in the right lung anteriorly, please correlate with surgical history. Diffuse mild to moderate pulmonary interstitial radiodensities noted most marked at the lung bases and peripherally, consistent with idiopathic pulmonary fibrosis. Mild peripheral bronchiectasis noted most marked at the lung bases. No mediastinal or hilar adenopathy seen. No axillary or supraclavicular adenopathy. CONCLUSION: Bilateral predominantly peripheral and lower lobe interstitial changes consistent with idiopathic pulmonary fibrosis. Little interval change in appearance in comparison with previous examination of 04/26/18. Mild bronchiectasis noted as well.
== END 2019-02-07 00:53 ==
PROVIDERS: PCP Family Medicine; Visit Provider Internal Medicine
DX: J84.9 Interstitial pulmonary disease, unspecified (principal); J84.112 Idiopathic pulmonary fibrosis; J47.9 Bronchiectasis, uncomplicated
CPT/HCPCS: 71250; 94640

== ENCOUNTER 2019-03-12 17:01 | Inpatient (IN) | payer OTHER, MEDICAID, SELFPAY ==
[2019-03-12] VITALS (57 sets, daily range): BP systolic 93–148; BP diastolic 28–81; PULSE 97–125; RESP 14–30; TEMP 36.2–37; O2SAT 96–100
--- NOTE | 2019-03-12 17:20 | DI.RAD_ITS ---
SYMPTOM/DIAGNOSIS: VOMITING, WEAK AP AND LATERAL CHEST: The exam is limited by poor pulmonary inflation. The previously noted central venous catheter has been removed. Changes of underlying interstitial disease are again noted. There is stable right sided volume loss. The heart appears mildly enlarged. IMPRESSION: Chronic changes. No superimposed infiltrate, effusion or pulmonary edema.
--- NOTE | 2019-03-12 17:26 | ED.GENADUL_ITS ---
Discharge Plan Disposition Patient Disposition: [facility] INPATIENT Condition: Fair Discharge Details Chief Complaint: Diabetes Clinical Impression: DKA (diabetic ketoacidoses), Vomiting, Elevated troponin Primary Care Provider: Mario Garcia ED Provider: Aggie Stanford Home Meds and New Rx's Prescriptions: No Action cyclobenzaprine 5 mg tablet 5 mg PO TID PRN (Reason: muscle spasm) Qty: 42 RF: 3 Breo Ellipta 200-25 mcg/dose blister with device 1 inh IH DAILY Qty: 60 RF: 6 albuterol sulfate 2.5 mg /3 mL (0.083 %) solution for nebulization 2.5 mg Inhalation Q6H PRN (Reason: shortness of breath or wheezing) Qty: 10 RF: 6 Wheeled walker with seat and basket Qty: 1 RF: 0 compress.stocking,knee,reg,lrg misc .ROUTE .MEDSUPPLY Qty: 2 RF: 0 albuterol sulfate [Ventolin HFA] 8 GM HFA aerosol inhaler 2 puff Inhalation Q4H PRN Qty: 1 RF: 4 lancets 1 EACH misc 1 ea Miscellaneous TID PRNQty: 400 RF: 3 Blood Glucose Test 1 EACH strip 1 ea Miscellaneous TID PRNQty: 400 RF: 4 pen needle, diabetic [Pen Needle] 1 EACH needle 1 ea Miscellaneous QID Qty: 4 RF: 3 epinephrine [EpiPen 2-Gordon] 0.3 MG/0.3 ML auto-injector 0.3 mg IM ONCE Qty: 1 RF: 0 blister gordon RF: 0 bisacodyl 5 mg tablet,delayed release (DR/EC) 5 mg PO DAILY Qty: 30 RF: 11 donepezil 5 mg tablet,disintegrating 5 mg PO DAILY Qty: 30 RF: 11 Oxygen Tank .ROUTE .MEDSUPPLY Qty: 1 RF: 0 furosemide 20 mg tablet 20 mg PO BID PRN (Reason: leg swelling) Qty: 180 RF: 3 Tradjenta 5 mg tablet 5 mg PO DAILY Qty: 30 RF: 6 Humalog KwikPen Insulin 100 unit/mL insulin pen See Rx Instructions subcut as directed 30 Days Qty: 15 RF: 6 benzonatate 100 mg capsule 100 mg PO QID PRN (Reason: cough) Qty: 60 RF: 3 simvastatin 40 mg tablet 40 mg PO HS Qty: 30 RF: 11 escitalopram oxalate 10 mg tablet 10 mg PO .NOON Qty: 30 RF: 11 acetaminophen [Tylenol Extra Strength] 500 mg Tablet 1,000 mg PO Q6H PRNRF: 0 pantoprazole 40 mg Tablet,Delayed Release (Dr/Ec) 40 mg PO BID Qty: 60 RF: 0 guaifenesin [Mucinex] 600 mg Tablet Extended Release 12hr 1,200 mg PO BID PRN PRN (Reason: cough) Qty: 30 RF: 0 dextromethorphan-guaifenesin 10-100 mg/5 mL Syrup 10 ml PO Q4H PRN PRNQty: 100 RF: 0 ketoconazole 2 % Cream 1 applic topical BID Qty: 30 RF: 0 sucralfate 1 gram Tablet 1 g PO AC & HS Qty: 120 RF: 0 acidophilus-pectin, citrus 25 million cell -100 mg Tablet 1 cap PO TID Qty: 90 RF: 0 Lantus Solostar U-100 Insulin 100 unit/mL (3 mL) insulin pen 70 unit SC HS Qty: 15 RF: 3 metoclopramide HCl [Reglan] 10 mg tablet 10 mg PO Q6H Qty: 10 RF: 0 Medical Decision Making 68-year-old female with history of diabetes, COPD, anxiety, depression, hyperlipidemia and hypertension who presents with vomiting for the past few days. Has not taken any of her medications. Glucose per nurse read as high. Heart rate 110s. Afebrile. Patient appears uncomfortable and is dry heaving. Abdomen soft and diffusely mildly-moderately tender. Concern for DKA versus HHS. Will place an IV, bolus IV fluids, labs, urinalysis, chest x-ray and CT abdomen pelvis. 1830 --labs reviewed. White blood cell count 13. Potassium 4.2. Bicarb 12. Anion gap 28. Creatinine 1.77. GFR 28 glucose 847. Troponin 0.55. Suspect troponin more demand ischemia. EKG notes sinus tachycardia [address] findings. Urinalysis pending. Chest x-ray notes patchy perihilar opacity which could reflect chronic scarring versus atelectasis versus recurrent or chronic infil trates. No other acute disease. Will continue IV fluids and start insulin bolus and drip. Will give dose of potassium. 1900 --discussed with hospitalist accepts patient for admission Medical Records Medical records reviewed: Yes I reviewed the patient's medical records. Imaging Data Radiologic Study: Radiologist's impression: XR Chest, 2 Views EXAM DATE/TIME: 03/12/2019 5:22 PM CLINICAL HISTORY: 68 years old, female; Signs and symptoms; Other: Vomiting, weak, R/O acute disease TECHNIQUE: Imaging protocol: XR of the chest, 2 views. COMPARISON: CR XR PORTABLE CHEST AP 01/30/2019 10:41 AM FINDINGS: Lungs: There is patchy perihilar alveolar density bilaterally with mild interstitial prominence. This is not substantially changed back to 01/18/2019. This could relate to chronic perihilar infiltrates, versus chronic scarring and atelectasis. Chronic pleural thickening in the right lateral upper pleural space is unchanged. Pleural space: No pleural effusion. No pneumothorax. Heart/Mediastinum: Heart size normal. Mild aortic ectasia/tortuosity. Moderate central vascular congestion. No tracheal shift. Bones/joints: No acute osseous abnormalities are identified. IMPRESSION: 1. No significant radiographic change back to 01/18/2019. 2. There is ongoing patchy perihilar interstitial and alveolar opacity which could reflect chronic scarring and atelectasis versus chronic or recurrent perihilar infiltrates. Consider the possibility of aspiration. 3. Chronic lateral right apical pleural thickening and subpleural scarring. Radiologic Study #2: Radiologist's impression: CT Abdomen and Pelvis Without Contrast EXAM DATE/TIME: 03/12/2019 6:44 PM CLINICAL HISTORY: 68 years old, female; Signs and symptoms; Other: Diffuse abd pain, vomiting, R/O acute process TECHNIQUE: Imaging protocol: Axial computed tomography images of the abdomen and pelvis without contrast. Coronal and sagittal reformatted images were created and reviewed. Radiation optimization: All CT scans at this facility use at least one of these dose optimization techniques: automated exposure control; mA and/or kV adjustment per patient size (includes targeted exams where dose is matched to clinical indication); or iterative reconstruction. COMPARISON: CT ABDOMEN PELVIS W 01/29/2019 12:03 AM FINDINGS: Lungs: Bilateral basilar peripheral intralobular septal thickening and patchy right basilar alveolar attenuation. This may relate to interstitial fibrosis with patchy elements of scarring/atelectasis or active alveolitis. Cannot exclude patchy right basilar infiltrate. Heart: Mild cardiomegaly. Mediastinum: Small hiatal hernia. The visualized distal esophagus and stomach are otherwise unremarkable. ABDOMEN: Liver: There is generalized decreased density in the left hepatic lobe compared to the right, which would tend to favor geographic fatty infiltration of the liver. There are also focal areas of decreased attenuation in the liver including a 10 mm focus in the left hepatic lobe on series 2 image 22 measuring -37 Hounsfield units, 2.7 cm focus along the falciform fissure measuring -54 Hounsfield units, and 11 mm focus along the posterior subcapsular right hepatic lobe on series 2 image 22 measuring -45 Hounsfield units. The caudate lobe also demonstrates marked hypodensity at -47 Hounsfield units. The mature fat density with strongly favor focal fatty infiltration. MRI of the liver would allow be most specific imaging confirmation of focal fatty infiltration. Gallbladder and bile ducts: The gallbladder is not identified, presumed surgically absent. Nondilated biliary system. Pancreas: Severe pancreatic atrophy without acute pancreatic abnormality. Spleen: Normal. No splenomegaly. Adrenals: Normal. No adrenal mass. Kidneys and ureters: Normal. No hydronephrosis or hydroureter. No urinary tract stones are identified. Stomach and bowel: The small bowel is normal with no evidence of obstruction. There is diffuse colonic wall thickening consistent with colitis, with loss of the typical haustral pattern which may indicate chronic or recurrent colitis. No evidence of perforation or abscess. Appendix: The appendix is not identified. No secondary signs of appendicitis. PELVIS: Bladder: Magaña catheter well positioned in the urinary bladder, which is largely contracted. Reproductive: Unremarkable as visualized. ABDOMEN and PELVIS: Intraperitoneal space: No free fluid or air. Bones/joints: Moderate superior endplate compression deformity of L1 with 40% loss of anterior vertebral body height and slight 2 mm retropulsion of the posterior superior vertebral margin this is age-indeterminate. Soft tissues: Unremarkable. Vasculature: Mild atherosclerotic aortoiliac calcification without aneurysm. Lymph nodes: No adenopathy. IMPRESSION: 1. Generalized colonic wall thickening consistent with colitis. No evidence of perforation or abscess. 2. Bilateral basilar interstitial changes suggesting interstitial fibrosis/UIP, with patchy alveolar opacities in the right base which could represent an element of active alveolitis, chronic scarring/atelectasis, or superimposed patchy right basilar infiltrate. 3. Geographic fatty infiltration of the left hepatic lobe. There are multiple low-density foci of mature fat density in the liver as well which are most consistent with focal fatty infiltration. MRI of the liver would allow the most specific imaging confirmation of focal fatty infiltration. 4. Moderate L1 superior endplate compression deformity with 2 mm retropulsion. This is age-indeterminate. Lab Data Lab results reviewed: Yes I reviewed the patient's lab results. Laboratory Tests Range/Units 03/12/19 03/12/19 03/12/19 17:38 17:38 18:44 WBC (4.4-10.8) k/cumm 13.30 H RBC (4.00-5.20) m/cumm 4.59 Hgb (12.0-15.5) g/dL 13.8 Hct (36.0-46.0) % 41.1 MCV (80-95) fL 89.5 MCH (27.0-33.0) pg 30.1 MCHC (32.0-36.0) g/dL 33.6 RDW (11.7-14.6) % 13.9 Plt Count (130-400) x1000/uL 396 MPV (8.0-11.0) fL 11.1 H Immature Gran % 0.2 Neutrophils % 89.4 Lymphocytes % 5.6 Monocytes % 4.3 Eosinophils % 0.0 Basophils % 0.5 Absolute Neutrophils (1.2-6.7) k/cumm 11.89 H Absolute Lymphocytes (1.2-3.4) k/cumm 0.74 L Absolute Monocytes (0.11-0.7) k/cumm 0.57 Absolute Eosinophils (0.0-0.7) k/cumm 0.00 Absolute Basophils (0.0-0.2) k/cumm 0.07 Sodium (136-145) mmol/L 132 L Potassium (3.5-5.1) mmol/L 4.2 Chloride (98-107) mmol/L 91 L Carbon Dioxide (21.0-32.0) mmol/L 12.1 L Anion Gap (3-11) mmol/L 28.9 H BUN (7-18) mg/dL 24 H Creatinine (0.55-1.02) mg/dL 1.77 H Estimated GFR/1.73 m2 (mL/min/1.73m2) 28.61 Glucose (70-100) mg/dL 847 H* Calcium (8.5-10.1) mg/dL 9.4 Magnesium (1.8-2.4) mg/dL 2.3 Total Bilirubin (0.2-1.0) mg/dL 0.9 AST (15-37) U/L 18 ALT (12-78) U/L 22 Alkaline Phosphatase (46-116) U/L 132 H Troponin I (0.00-0.06) ng/mL 0.55 H* Total Protein (6.4-8.2) g/dL 7.7 Albumin (3.4-5.0) g/dL 3.3 L Urine Color (Yellow) Yellow Urine Clarity Clear Urine pH (5-8) 5.0 Ur Specific Wilmot (1.005-1.025) 1.010 Urine Protein (Negative) mg/dL Trace H Urine Ketones (Negative) mg/dL >=160 H Urine Blood (Negative) Trace-intact H Urine Nitrite (Negative) Negative Urine Bilirubin (Negative) Small H Urine Urobilinogen (Up TO 0.2) EU/dL 0.2 Ur Leukocyte Esterase (Negative) Negative Urine RBC (0-2) Negative Urine WBC (0-5) HPF Negative Ur Epithelial Cells (Negative) HPF Negative Urine Crystals (Negative) HPF Few amorphous Urine Bacteria (Negative) HPF Negative Urine Casts (Negative) LPF Negative Urine Mucus (Negative) Negative Urine Other (Negative) Negative Ur Culture Indicated? No Urine Glucose (Negative) mg/dL 500 H ECG Data Attestation: I personally reviewed and interpreted this ECG (s) as follows: Interpretation: Rate of 116 and sinus. No acute ST elevation or depression. QTc 475. QRS 106. HPI General Mode of arrival: ambulatory . Date/Time Provider Initiated Documentation: 03/12/19 17:17 . Limitations to Documentation: no limitations . Information obtained by: patient . HPI Narrative: Patient is a 68-year-old female with history of anxiety, COPD, depression, diabetes, GERD, hypertension, hyperlipidemia who presents to the ED with complaint of vomiting for the past few days. Has vomited up to 8 times daily which is been mainly clear. She has not checked her sugar or take any of her medications for the past several days. She admits to urinary frequency. She denies any rectal bleeding or fever. She denies any recent antibiotics. Related Data Home Medications Medication Instructions Recorded Confirmed albuterol sulfate [Ventolin HFA] 2 puff INHALATION Q4H PRN #1 10/09/14 02/07/19 inhaler lancets #400 ea 12/02/14 02/07/19 Blood Glucose Test #400 strip 03/23/18 02/07/19 pen needle, diabetic [Pen Needle] #4 box 03/23/18 02/07/19 epinephrine [EpiPen 2-Gordon] 0.3 mg IM ONCE #1 pack 05/07/18 02/07/19 bisacodyl 5 mg tablet,delayed 5 mg PO DAILY #30 tab-cap 08/03/18 02/07/19 release donepezil 5 mg disintegrating 5 mg PO DAILY #30 tab-cap 08/03/18 02/07/19 tablet acetaminophen [Tylenol Extra 1,000 mg PO Q6H PRN 08/06/18 02/07/19 Strength] cyclobenzaprine 5 mg tablet 5 mg PO TID PRN #42 tab-cap 09/06/18 02/07/19 fluticasone furoate 200 1 inh IH DAILY #60 each 09/06/18 02/07/19 mcg-vilanterol 25 mcg/dose inhalation powder compression stocking,knee #2 each 10/29/18 02/07/19 high,regular,large circumfer. albuterol sulfate 2.5 mg/3 mL 2.5 mg INHALATION Q6H PRN #10 vial 11/09/18 02/07/19 (0.083 %) solution for nebulization Oxygen #1 each 11/29/18 02/07/19 furosemide 20 mg tablet 20 mg PO BID PRN #180 tab 11/30/18 02/07/19 linagliptin 5 mg tablet 5 mg PO DAILY #30 tab 12/18/18 02/07/19 insulin lispro (U- 100) 100 See Rx Instructions SUBCUT as 01/02/19 02/07/19 unit/mL subcutaneous pen directed 30 Days #15 ml Lantus Solostar U-100 Insulin 70 unit SC HS #15 ml 01/31/19 02/07/19 acidophilus-pectin, citrus 1 cap PO TID #90 tab 01/31/19 02/07/19 dextromethorphan-guaifenesin 10 ml PO Q4H PRN PRN #100 ml 01/31/19 02/07/19 guaifenesin [Mucinex] 1,200 mg PO BID PRN PRN #30 tab 01/31/19 02/07/19 ketoconazole 1 applic TOPICAL BID #30 gm 01/31/19 02/07/19 pantoprazole 40 mg PO BID #60 tab 01/31/19 02/07/19 sucralfate 1 g PO AC & HS #120 tab 01/31/19 02/07/19 metoclopramide HCl [Reglan] 10 mg PO Q6H #10 tab 02/02/19 02/07/19 Wheeled walker with seat and basket #1 ea 02/07/19 02/07/19 benzonatate 100 mg capsule 100 mg PO QID PRN #60 cap 02/25/19 escitalopram 10 mg tablet 10 mg PO .NOON #30 tab-cap 02/26/19 simvastatin 40 mg tablet 40 mg PO HS #30 tab 02/26/19 Previous Rx's Medication Instructions Recorded pen needle, diabetic [Pen Needle] #4 box 03/23/18 epinephrine [EpiPen 2-Gordon] 0.3 mg IM ONCE #1 pack 05/07/18 bisacodyl 5 mg tablet,delayed 5 mg PO DAILY #30 tab-cap 08/03/18 release donepezil 5 mg disintegrating 5 mg PO DAILY #30 tab-cap 08/03/18 tablet cyclobenzaprine 5 mg tablet 5 mg PO TID PRN #42 tab-cap 09/06/18 fluticasone furoate 200 1 inh IH DAILY #60 each 09/06/18 mcg-vilanterol 25 mcg/dose inhalation powder compression stocking,knee #2 each 10/29/18 high,regular,large circumfer. albuterol sulfate 2.5 mg/3 mL 2.5 mg INHALATION Q6H PRN #10 vial 11/09/18 (0.083 %) solution for nebulization furosemide 20 mg tablet 20 mg PO BID PRN #180 tab 11/30/18 linagliptin 5 mg tablet 5 mg PO DAILY #30 tab 12/18/18 insulin lispro (U- 100) 100 See Rx Instructions SUBCUT as 01/02/19 unit/mL subcutaneous pen directed 30 Days #15 ml Lantus Solostar U-100 Insulin 70 unit SC HS #15 ml 01/31/19 acidophilus-pectin, citrus 1 cap PO TID #90 tab 01/31/19 dextromethorphan-guaifenesin 10 ml PO Q4H PRN PRN #100 ml 01/31/19 guaifenesin [Mucinex] 1,200 mg PO BID PRN PRN #30 tab 01/31/19 ketoconazole 1 applic TOPICAL BID #30 gm 01/31/19 pantoprazole 40 mg PO BID #60 tab 01/31/19 sucralfate 1 g PO AC & HS #120 tab 01/31/19 metoclopramide HCl [Reglan] 10 mg PO Q6H #10 tab 02/02/19 Wheeled walker with seat and basket #1 ea 02/07/19 benzonatate 100 mg capsule 100 mg PO QID PRN #60 cap 02/25/19 escitalopram 10 mg tablet 10 mg PO .NOON #30 tab-cap 02/26/19 simvastatin 40 mg tablet 40 mg PO HS #30 tab 02/26/19 Allergies Allergy/AdvReac Type Severity Reaction Status Date / Time aspirin Allergy Unknown HIVES, Verified 02/07/19 09:26 flip out diclofenac Allergy Unknown RASH Verified 02/07/19 09:26 latex Allergy Unknown SKIN Verified 02/07/19 09:26 BREAKDOWN NSAIDS (Non-Steroidal Allergy Unknown HIVES, Verified 02/07/19 09:26 Anti-Inflamma VOMITING morphine AdvReac Unknown VOMITING Verified 02/07/19 09:26 General Stated Complaint: Diabetes ALVIN: 3 Review of Systems Review of Systems All systems reviewed & are unremarkable except as noted in HPI and below Constitutional Reports as per HPI, Denies chills and Denies fever(s) Eyes Denies blurry vision ENT Denies dizziness, Denies sore throat and Denies throat swelling Cardiovascular Denies chest pain and Denies dyspnea Respiratory Denies cough and Denies dyspnea Gastrointestinal Reports abdominal pain, Denies diarrhea and Reports vomiting Genitourinary Denies hematuria and Denies dysuria Musculoskeletal Denies back pain and Denies numbness Integumentary/Breasts Denies lesions and Denies rash Neurologic Denies dizziness, Denies focal weakness and Denies numbness Allergic/Immunologic Denies throat swelling PFSH Medical History Internal derangement of right knee (Chronic) Back pain (Chronic) Asthma (Chronic) Osteoporosis (Chronic 03/16/18) Neck pain (Chronic 03/16/18) Migraine (Chronic 04/03/14) Long-term use of high-risk medication (Chronic 03/16/18) Interstitial lung disease (Chronic 03/16/18) History of shingles (Resolved 03/16/18) Gastroesophageal reflux disease without esophagitis (Chronic 03/16/18) Essential hypertension (Chronic 07/17/13) Edema (Chronic 03/16/18) Dyspnea (Chronic 03/16/18) Depressive disorder (Chronic) Cubital tunnel syndrome (Resolved 03/16/18) Cognitive impairment (Chronic 03/16/18) Chronic constipation (Chronic 03/16/18) Anxiety (Chronic 03/16/18) Acute gastroenteritis (Resolved 03/16/18) Umbilical hernia (Chronic) Type II diabetes mellitus, uncontrolled (Chronic) Total urinary incontinence (Chronic) Shoulder pain (Chronic) Post herpetic neuralgia (Chronic 03/16/18) Peripheral neuralgia (Chronic) 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) Hyperlipemia (Acute) Asthma (Chronic) Insulin dependent diabetes mellitus (Chronic) Surgical History Appendectomy Arthroscopy, Shoulder Bilateral salpingectomy with oophorectomy section Cholecystectomy Ligation of fallopian tube Thoracoscopic (R)Lung Bx (02/12/18) Family History Mother Diabetes Essential hypertension CHF (congestive heart failure) Heart disease Father Diabetes Essential hypertension CAD (coronary artery disease) Heart disease Hyperlipidemia Stroke Sister Diabetes Personal history of malignant neoplasm Asthma Brother Diabetes Essential hypertension Personal history of malignant neoplasm Hyperlipidemia Asthma Social History Smoking/Tobacco Use Status: Never Alcohol Intake: never Details: monthly or less Drug use: Never Substance use type: does not use Adopted: No Caregiver/Support person: No Foster care: No Household members: other Details: grandson Housing: apartment Number of Children: 2 current occupation: disabled What type of physical activity do you participate in: none Duration: 15-30 minutes/day Frequency: daily Drive intox or ride w/intox rivet driver: No Water heater temp set <120 deg: Yes Working smoke detector in home: Yes Fire extinguisher in home: Yes Carbon monox detector in home: Yes Do you feel safe at home: Yes Do you feel safe in your relationship?: Yes Exam Const General: cooperative, no acute distress and other (Appears ill, dry heaving) HENMT Head: normal to inspection Face and sinus: normal facial exam Mouth: mucous membranes dry Eyes General: appearance normal, both eyes and all related structures Pupils: PERRL EOM: EOM intact bilaterally Neck Neck: normal visual inspection and No submandibular swelling Lymphatic: no lymphadenopathy noted Chest Chest: normal inspection of the chest and no tenderness Resp Effort & Inspection: normal respiratory effort and able to speak in complete sentences Auscultation: clear to auscultation bilaterally Cardio Rate: regular rate Rhythm: regular rhythm GI Inspection: normal to inspection Palpation: soft, not firm, not rigid and tender (Diffuse mild to moderate) Auscultation: normal bowel sounds Skin General skin exam: no rashes or lesions noted Neuro General: alert, awake and oriented x3 Cognition: normal cognition Speech: speech normal Motor: muscle tone normal throughout Sensory Exam: no sensory deficits noted Extrem General: normal to inspection, full ROM and no edema Psych Appearance: grossly normal Mental Status: mental status grossly normal Speech and Movement: speech and movement normal Affect: normal affect Course Vital Signs Temperature 97.2 F L 03/12/19 16:58 Pulse 117 H 03/12/19 16:58 Respiratory Rate 24 03/12/19 16:58 Blood Pressure 148/70 H 03/12/19 16:58 Pulse Oximetry 99 03/12/19 16:58 Temperature 97.9 F 03/12/19 17:06 Temperature Source Skin 03/12/19 17:06 Pulse 116 H 03/12/19 17:06 Respiratory Rate 24 03/12/19 17:06 Respiratory Effort Labored 03/12/19 17:13 Blood Pressure 115/48 L 03/12/19 17:06 Pulse Oximetry 99 03/12/19 17:06 Oxygen Delivery Method Nasal Cannula 03/12/19 17:06 Oxygen Flow Rate 2 03/12/19 17:06 Pain Level 0 03/12/19 16:58
[2019-03-12 17:48] LABS: Abs Immature Grans 0.02 k/cumm (0.0-0.09); Absolute Lymphocyte Count 0.74 k/cumm (1.2-3.4); Absolute Monocyte Count 0.57 k/cumm (0.11-0.7); Basophils % 0.5; HCT 41.1 % (36.0-46.0); HGB 13.8 g/dL (12.0-15.5); Immature Grans % 0.2; Lymphocytes % 5.6; Mean Corp. HGB Concentration 33.6 g/dL (32.0-36.0); Mean Corpuscular Hemoglobin 30.1 pg (27.0-33.0); Mean Corpuscular Volume 89.5 fL (80-95); Mean Platelet Volume 11.1 fL (8.0-11.0); Monocytes % 4.3; Neutrophils % 89.4; Platelet Count 396 x1000/uL (130-400); RBC 4.59 m/cumm (4.00-5.20); RBC Distribution Width 13.9 % (11.7-14.6)
[2019-03-12 17:51] LABS: Absolute Basophil Count 0.07 k/cumm (0.0-0.2); Absolute Neutrophil Count 11.89 k/cumm (1.2-6.7)
[2019-03-12 18:01] LABS: ALT 22 U/L (12-78); AST 18 U/L (15-37); Albumin 3.3 g/dL (3.4-5.0); Alkaline Phosphatase 132 U/L (46-116); Anion Gap 28.9 mmol/L (3-11); BUN 24 mg/dL (7-18); Bilirubin, Total 0.9 mg/dL (0.2-1.0); CO2 12.1 mmol/L (21.0-32.0); CREATININE 1.77 mg/dL (0.55-1.02); Calcium 9.4 mg/dL (8.5-10.1); Chloride 91 mmol/L (98-107); Estimated GFR 28.61 (mL/min/1.73m2); Magnesium 2.3 mg/dL (1.8-2.4); Potassium 4.2 mmol/L (3.5-5.1); Sodium 132 mmol/L (136-145); Total Protein 7.7 g/dL (6.4-8.2)
[2019-03-12 18:31] LABS: Glucose 847 mg/dL (70-100)
[2019-03-12 18:32] LABS: Troponin I 0.55 ng/mL (0.00-0.06)
--- NOTE | 2019-03-12 18:39 | DI.VRAD_ITS ---
EXAM: XR Chest, 2 Views EXAM DATE/TIME: 03/12/2019 5:22 PM CLINICAL HISTORY: 68 years old, female; Signs and symptoms; Other: Vomiting, weak, R/O acute disease TECHNIQUE: Imaging protocol: XR of the chest, 2 views. COMPARISON: CR XR PORTABLE CHEST AP 01/30/2019 10:41 AM FINDINGS: Lungs: There is patchy perihilar alveolar density bilaterally with mild interstitial prominence. This is not substantially changed back to 01/18/2019. This could relate to chronic perihilar infiltrates, versus chronic scarring and atelectasis. Chronic pleural thickening in the right lateral upper pleural space is unchanged. Pleural space: No pleural effusion. No pneumothorax. Heart/Mediastinum: Heart size normal. Mild aortic ectasia/tortuosity. Moderate central vascular congestion. No tracheal shift. Bones/joints: No acute osseous abnormalities are identified. IMPRESSION: 1. No significant radiographic change back to 01/18/2019. 2. There is ongoing patchy perihilar interstitial and alveolar opacity which could reflect chronic scarring and atelectasis versus chronic or recurrent perihilar infiltrates. Consider the possibility of aspiration. 3. Chronic lateral right apical pleural thickening and subpleural scarring. Dictated and Authenticated by: Fabian Tabor MD. Ordering:GEMMA Marcial MD
[2019-03-12 18:54] LABS: Bilirubin Small (Negative); Blood Trace-intact (Negative); Clarity Clear; Glucose 500 mg/dL (Negative); Ketones >=160 mg/dL (Negative); Leukocyte Esterase Negative (Negative); Nitrite Negative (Negative); Urobilinogen 0.2 EU/dL (Up TO 0.2)
--- NOTE | 2019-03-12 19:00 | DI.CT_ITS ---
SYMPTOMS/DIAGNOSIS: DIFFUSE ABDOMINAL PAIN, VOMITING; ? ACUTE PROCESS; ? SMALL BOWEL OBSTRUCTION CT OF THE ABDOMEN AND PELVIS: Comparison is made with January,. A noncontrast exam was performed. The exam is limited by patient motion. The lungs are again poorly inflated and show interstitial changes. The findings are greater on the right, but there is some improvement when compared with the previous exam. The liver now shows decreased attenuation in the left lobe, as well as caudate lobe and near the falciform ligament, consistent with geographic fatty infiltration. There is a stable low density area seen in the posterior right lobe of the liver. The patient is status post cholecystectomy. The pancreas is severely atrophic. The spleen is normal in size. The adrenals are unremarkable. There is a small hiatal hernia. The previous exam questioned gastric wall thickening. This area is not well evaluated due to motion and lack of contrast. There is no small or large bowel dilatation. The colon is decompressed throughout and shows fat within the wall. The appendix is not seen. There is no free air or free fluid. A Magaña catheter is noted in the bladder, which is decompressed. The uterus is unremarkable. The ovaries are not seen. There is a stable compression fracture of the superior endplate of L1. IMPRESSION: 1. Geographic fatty infiltration of the left lobe of the liver. This is new since the previous exam. 2. No evidence of bowel obstruction or acute inflammation. 3. Chronic interstitial changes at the lung bases with some improvement in appearance when compared with the previous exam.
[2019-03-12] MEDS: Insulin REGULAR-Human 100 UNITS/ML UNIT 8 UNITS IV (19:01)
[2019-03-12] MEDS: POTASSIUM CHLORIDE 20 MEQ/100 ML BAG 50 MEQ IVPB (19:02)
[2019-03-12] MEDS: Prochlorperazine 10 MG/2 ML VIAL IVP (19:03)
--- NOTE | 2019-03-12 19:11 | DI.VRAD_ITS ---
EXAM: CT Abdomen and Pelvis Without Contrast EXAM DATE/TIME: 03/12/2019 6:44 PM CLINICAL HISTORY: 68 years old, female; Signs and symptoms; Other: Diffuse abd pain, vomiting, R/O acute process TECHNIQUE: Imaging protocol: Axial computed tomography images of the abdomen and pelvis without contrast. Coronal and sagittal reformatted images were created and reviewed. Radiation optimization: All CT scans at this facility use at least one of these dose optimization techniques: automated exposure control; mA and/or kV adjustment per patient size (includes targeted exams where dose is matched to clinical indication); or iterative reconstruction. COMPARISON: CT ABDOMEN PELVIS W 01/29/2019 12:03 AM FINDINGS: Lungs: Bilateral basilar peripheral intralobular septal thickening and patchy right basilar alveolar attenuation. This may relate to interstitial fibrosis with patchy elements of scarring/atelectasis or active alveolitis. Cannot exclude patchy right basilar infiltrate. Heart: Mild cardiomegaly. Mediastinum: Small hiatal hernia. The visualized distal esophagus and stomach are otherwise unremarkable. ABDOMEN: Liver: There is generalized decreased density in the left hepatic lobe compared to the right, which would tend to favor geographic fatty infiltration of the liver. There are also focal areas of decreased attenuation in the liver including a 10 mm focus in the left hepatic lobe on series 2 image 22 measuring -37 Hounsfield units, 2.7 cm focus along the falciform fissure measuring -54 Hounsfield units, and 11 mm focus along the posterior subcapsular right hepatic lobe on series 2 image 22 measuring -45 Hounsfield units. The caudate lobe also demonstrates marked hypodensity at -47 Hounsfield units. The mature fat density with strongly favor focal fatty infiltration. MRI of the liver would allow be most specific imaging confirmation of focal fatty infiltration. Gallbladder and bile ducts: The gallbladder is not identified, presumed surgically absent. Nondilated biliary system. Pancreas: Severe pancreatic atrophy without acute pancreatic abnormality. Spleen: Normal. No splenomegaly. Adrenals: Normal. No adrenal mass. Kidneys and ureters: Normal. No hydronephrosis or hydroureter. No urinary tract stones are identified. Stomach and bowel: The small bowel is normal with no evidence of obstruction. There is diffuse colonic wall thickening consistent with colitis, with loss of the typical haustral pattern which may indicate chronic or recurrent colitis. No evidence of perforation or abscess. Appendix: The appendix is not identified. No secondary signs of appendicitis. PELVIS: Bladder: Magaña catheter well positioned in the urinary bladder, which is largely contracted. Reproductive: Unremarkable as visualized. ABDOMEN and PELVIS: Intraperitoneal space: No free fluid or air. Bones/joints: Moderate superior endplate compression deformity of L1 with 40% loss of anterior vertebral body height and slight 2 mm retropulsion of the posterior superior vertebral margin this is age-indeterminate. Soft tissues: Unremarkable. Vasculature: Mild atherosclerotic aortoiliac calcification without aneurysm. Lymph nodes: No adenopathy. IMPRESSION: 1. Generalized colonic wall thickening consistent with colitis. No evidence of perforation or abscess. 2. Bilateral basilar interstitial changes suggesting interstitial fibrosis/UIP, with patchy alveolar opacities in the right base which could represent an element of active alveolitis, chronic scarring/atelectasis, or superimposed patchy right basilar infiltrate. 3. Geographic fatty infiltration of the left hepatic lobe. There are multiple low-density foci of mature fat density in the liver as well which are most consistent with focal fatty infiltration. MRI of the liver would allow the most specific imaging confirmation of focal fatty infiltration. 4. Moderate L1 superior endplate compression deformity with 2 mm retropulsion. This is age-indeterminate. Dictated and Authenticated by: Fabian Tabor MD. Ordering:GEMMA Marcial MD
[2019-03-12 19:12] LABS: Bacteria Negative HPF (Negative); C & S Indicated? No; Casts Negative LPF (Negative); Crystals Few Amorphous HPF (Negative); Epithelial Cells Negative HPF (Negative); Mucus Negative (Negative); Other Cells Negative (Negative); RBC Negative (0-2); WBC Negative HPF (0-5)
--- NOTE | 2019-03-12 19:13 | W.PM.HP.N ---
Date of service: 03/12/19 Time of Service: 19:13 Assessment and Plan (1) DKA (diabetic ketoacidoses): Current visit: Yes Status: Acute DKA. primary initiating illness unclear but immediate precipitant is failure to take insulin. At this point the nausea may itself be secondary to the DKA, or there may be some non-specific underlying process, not evident at this point. A borderline troponin is noted, could perhaps be the issue, but certainly no CP or EKG changes to indicatee ACS. Regardless, will treat DKA per usual protocol and will trend out the troponins.Will continue usual medications as is for now with the excepttion of her diabetic program and diuretics. It is noted that patient is full code. She is not in good condition to review or update this at present but could be revisited when feeling better. History of Present Illness Chief Complaint: DKA Narrative: 68 female with Type 1 DM comes in with 3 days of vomiting and not taking her insulin. Innitial findings of note for sugar of 847, HCO3 of 12 and K 4.2. Patinet given 8 unit regular insulin then 0.1u/kg drip and is getting second liter saline at this time. patient continues to complain of nausea. No diarrhea or abdominal pain. Review of Systems Review of Systems All systems reviewed & are unremarkable except as noted in HPI and below PFSH Medical History Internal derangement of right knee (Chronic) Back pain (Chronic) Asthma (Chronic) Osteoporosis (Chronic 03/16/18) Neck pain (Chronic 03/16/18) Migraine (Chronic 04/03/14) Long-term use of high-risk medication (Chronic 03/16/18) Interstitial lung disease (Chronic 03/16/18) History of shingles (Resolved 03/16/18) Gastroesophageal reflux disease without esophagitis (Chronic 03/16/18) Essential hypertension (Chronic 07/17/13) Edema (Chronic 03/16/18) Dyspnea (Chronic 03/16/18) Depressive disorder (Chronic) Cubital tunnel syndrome (Resolved 03/16/18) Cognitive impairment (Chronic 03/16/18) Chronic constipation (Chronic 03/16/18) Anxiety (Chronic 03/16/18) Acute gastroenteritis (Resolved 03/16/18) Umbilical hernia (Chronic) Type II diabetes mellitus, uncontrolled (Chronic) Total urinary incontinence (Chronic) Shoulder pain (Chronic) Post herpetic neuralgia (Chronic 03/16/18) Peripheral neuralgia (Chronic) 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) Hyperlipemia (Acute) Asthma (Chronic) Insulin dependent diabetes mellitus (Chronic) Surgical History Appendectomy Arthroscopy, Shoulder Bilateral salpingectomy with oophorectomy section Cholecystectomy Ligation of fallopian tube Thoracoscopic (R)Lung Bx (02/12/18) Family History Mother Diabetes Essential hypertension CHF (congestive heart failure) Heart disease Father Diabetes Essential hypertension CAD (coronary artery disease) Heart disease Hyperlipidemia Stroke Sister Diabetes Personal history of malignant neoplasm Asthma Brother Diabetes Essential hypertension Personal history of malignant neoplasm Hyperlipidemia Asthma Social History Smoking/Tobacco Use Status: Never Alcohol Intake: never Details: monthly or less Drug use: Never Substance use type: does not use Adopted: No Caregiver/Support person: No Foster care: No Household members: other Details: grandson Housing: apartment Number of Children: 2 current occupation: disabled What type of physical activity do you participate in: none Duration: 15-30 minutes/day Frequency: daily Drive intox or ride w/intox 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 Water heater temp set <120 deg: Yes Working smoke detector in home: Yes Fire extinguisher in home: Yes Carbon monox detector in home: Yes Do you feel safe at home: Yes Do you feel safe in your relationship?: Yes Meds Home Medications Medication Instructions Recorded Confirmed Type albuterol sulfate [Ventolin HFA] 2 puff INHALATION Q4H PRN #1 10/09/14 02/07/19 History inhaler lancets #400 ea 12/02/14 02/07/19 History Blood Glucose Test #400 strip 03/23/18 02/07/19 History pen needle, diabetic [Pen Needle] #4 box 03/23/18 02/07/19 Rx epinephrine [EpiPen 2-Gordon] 0.3 mg IM ONCE #1 pack 05/07/18 02/07/19 Rx Blister Gordon 05/25/18 02/07/19 Clinic bisacodyl 5 mg tablet,delayed 5 mg PO DAILY #30 tab-cap 08/03/18 02/07/19 Rx release donepezil 5 mg disintegrating 5 mg PO DAILY #30 tab-cap 08/03/18 02/07/19 Rx tablet acetaminophen [Tylenol Extra 1,000 mg PO Q6H PRN 08/06/18 02/07/19 History Strength] cyclobenzaprine 5 mg tablet 5 mg PO TID PRN #42 tab-cap 09/06/18 02/07/19 Rx fluticasone furoate 200 1 inh IH DAILY #60 each 09/06/18 02/07/19 Rx mcg-vilanterol 25 mcg/dose inhalation powder compression stocking,knee #2 each 10/29/18 02/07/19 Rx high,regular,large circumfer. albuterol sulfate 2.5 mg/3 mL 2.5 mg INHALATION Q6H PRN #10 vial 11/09/18 02/07/19 Rx (0.083 %) solution for nebulization Oxygen #1 each 11/29/18 02/07/19 History furosemide 20 mg tablet 20 mg PO BID PRN #180 tab 11/30/18 02/07/19 Rx linagliptin 5 mg tablet 5 mg PO DAILY #30 tab 12/18/18 02/07/19 Rx insulin lispro (U- 100) 100 See Rx Instructions SUBCUT as 01/02/19 02/07/19 Rx unit/mL subcutaneous pen directed 30 Days #15 ml Lantus Solostar U-100 Insulin 70 unit SC HS #15 ml 01/31/19 02/07/19 Rx acidophilus-pectin, citrus 1 cap PO TID #90 tab 01/31/19 02/07/19 Rx dextromethorphan-guaifenesin 10 ml PO Q4H PRN PRN #100 ml 01/31/19 02/07/19 Rx guaifenesin [Mucinex] 1,200 mg PO BID PRN PRN #30 tab 01/31/19 02/07/19 Rx ketoconazole 1 applic TOPICAL BID #30 gm 01/31/19 02/07/19 Rx pantoprazole 40 mg PO BID #60 tab 01/31/19 02/07/19 Rx sucralfate 1 g PO AC & HS #120 tab 01/31/19 02/07/19 Rx metoclopramide HCl [Reglan] 10 mg PO Q6H #10 tab 02/02/19 02/07/19 Rx Wheeled walker with seat and basket #1 ea 02/07/19 02/07/19 Rx benzonatate 100 mg capsule 100 mg PO QID PRN #60 cap 02/25/19 Rx escitalopram 10 mg tablet 10 mg PO .NOON #30 tab-cap 02/26/19 Rx simvastatin 40 mg tablet 40 mg PO HS #30 tab 02/26/19 Rx Allergies Allergy/AdvReac Type Severity Reaction Status Date / Time aspirin Allergy Unknown HIVES, Verified 02/07/19 09:26 flip out diclofenac Allergy Unknown RASH Verified 02/07/19 09:26 latex Allergy Unknown SKIN Verified 02/07/19 09:26 BREAKDOWN NSAIDS (Non-Steroidal Allergy Unknown HIVES, Verified 02/07/19 09:26 Anti-Inflamma VOMITING morphine AdvReac Unknown VOMITING Verified 02/07/19 09:26 Exam Narrative Exam Narrative: 115/48, 116, 24, 36.6. HEENT dry mucous membranes. neck supple. Lungs clear. Heart tachy/regular. Abdomen +BS soft NT. Extr trace edema. Neuro Ox3, moves all 4s. Results EKG sinus tach, Nonspecific STTW findings, no change from baseline Labs : 03/12/19 17:38 03/12/19 17:38 Laboratory Results - last 24 hr 03/12/19 03/12/19 03/12/19 17:38 17:38 18:44 WBC 13.30 H RBC 4.59 Hgb 13.8 Hct 41.1 MCV 89.5 MCH 30.1 MCHC 33.6 RDW 13.9 Plt Count 396 MPV 11.1 H Immature Gran % 0.2 Neutrophils % 89.4 Lymphocytes % 5.6 Monocytes % 4.3 Eosinophils % 0.0 Basophils % 0.5 Absolute Neutrophils 11.89 H Absolute Lymphocytes 0.74 L Absolute Monocytes 0.57 Absolute Eosinophils 0.00 Absolute Basophils 0.07 Sodium 132 L Potassium 4.2 Chloride 91 L Carbon Dioxide 12.1 L Anion Gap 28.9 H BUN 24 H Creatinine 1.77 H Estimated GFR/1.73 m2 28.61 Glucose 847 H* Calcium 9.4 Magnesium 2.3 Total Bilirubin 0.9 AST 18 ALT 22 Alkaline Phosphatase 132 H Troponin I 0.55 H* Total Protein 7.7 Albumin 3.3 L Urine Color Yellow Urine Clarity Clear Urine pH 5.0 Ur Specific [place] 1.010 Urine Protein Trace H Urine Ketones >=160 H Urine Blood Trace-intact H Urine Nitrite Negative Urine Bilirubin Small H Urine Urobilinogen 0.2 Ur Leukocyte Esterase Negative Urine RBC Negative Urine WBC Negative Ur Epithelial Cells Negative Urine Crystals Few amorphous Urine Bacteria Negative Urine Casts Negative Urine Mucus Negative Urine Other Negative Ur Culture Indicated? No Urine Glucose 500 H Last Vital Signs Temp 36.6 C 03/12/19 17:06 Pulse 116 H 03/12/19 17:06 Resp 24 03/12/19 17:06 BP 115/48 L 03/12/19 17:06 Pulse Ox 99 03/12/19 17:06
[2019-03-12] MEDS: Normal Saline Flush 10 ML SYR IVP (19:21)
[2019-03-12 20:25] LABS: Glucose 650 mg/dL (70-100)
[2019-03-12] MEDS: POTASSIUM CHLORIDE/0.9% NACL 1,000 ML 200 MEQ IV (21:15)
[2019-03-12 22:34] LABS: Anion Gap 25.1 mmol/L (3-11); CO2 13.9 mmol/L (21.0-32.0); Chloride 100 mmol/L (98-107); Potassium 3.9 mmol/L (3.5-5.1); Sodium 139 mmol/L (136-145)
[2019-03-12 22:37] LABS: Troponin I < 0.02 ng/mL (0.00-0.06)
[2019-03-12] MEDS: Sucralfate 1 GM TAB PO (23:03)
[2019-03-13] VITALS (91 sets, daily range): BP systolic 102–144; BP diastolic 38–56; PULSE 83–108; RESP 16–28; TEMP 36.4–37.4; O2SAT 82–100
[2019-03-13] MEDS: POTASSIUM CHLORIDE/0.9% NACL 1,000 ML 250 MEQ IV (01:51)
[2019-03-13 02:23] LABS: Anion Gap 18.1 mmol/L (3-11); CO2 19.9 mmol/L (21.0-32.0); Chloride 105 mmol/L (98-107); Potassium 3.2 mmol/L (3.5-5.1); Sodium 143 mmol/L (136-145)
[2019-03-13 07:53] LABS: Anion Gap 15.4 mmol/L (3-11); BUN 14 mg/dL (7-18); CO2 18.6 mmol/L (21.0-32.0); CREATININE 1.31 mg/dL (0.55-1.02); Chloride 107 mmol/L (98-107); Potassium 3.2 mmol/L (3.5-5.1); Sodium 141 mmol/L (136-145); Troponin I 0.03 ng/mL (0.00-0.06)
[2019-03-13] MEDS: Budesonide/Formoterol 160/4.5 6 GM 60 PUFF INH IH ×2 (08:03→19:38)
[2019-03-13 08:16] LABS: Abs Immature Grans 0.03 k/cumm (0.0-0.09); Absolute Basophil Count 0.04 k/cumm (0.0-0.2); Absolute Eosinophil Count 0.22 k/cumm (0.0-0.7); Absolute Lymphocyte Count 0.98 k/cumm (1.2-3.4); Absolute Monocyte Count 0.66 k/cumm (0.11-0.7); Absolute Neutrophil Count 8.09 k/cumm (1.2-6.7); Basophils % 0.4; Eosinophils % 2.2; HCT 34.7 % (36.0-46.0); HGB 11.8 g/dL (12.0-15.5); Immature Grans % 0.3; Lymphocytes % 9.8; Mean Corpuscular Hemoglobin 29.9 pg (27.0-33.0); Mean Corpuscular Volume 87.8 fL (80-95); Mean Platelet Volume 10.8 fL (8.0-11.0); Monocytes % 6.6; Neutrophils % 80.7; Platelet Count 293 x1000/uL (130-400); RBC 3.95 m/cumm (4.00-5.20); RBC Distribution Width 13.7 % (11.7-14.6); White Blood Cell Count 10.02 k/cumm (4.4-10.8)
--- NOTE | 2019-03-13 08:39 | W.PM.PROGNOT ---
Date of Service Date of service: 03/13/19 Time of Service: 08:39 Assessment and Plan (1) DKA (diabetic ketoacidoses): Current visit: Yes Status: Acute in setting of uncontrolled type 2 DM (insulin dependent). Per son who contacted the ICU, the patient has difficulty administering her own insulin. Placement will have to be considered. For now, the patient received a half of her normal dose of long acting insulin this morning. Will continue to wean insulin gtt and monitoring BMP/repleting lytes. (2) Acute colitis: Current visit: Yes Status: Acute Cipro/flagyl initiated. Nursing is wondering if it doesn't smell like C. Diff - test ordered. IVF. Hemoccult positive - expected in setting of colitis. Monitor clinically. Consider surgical consult. (3) Chronic respiratory failure with hypoxia: Current visit: No Status: Chronic At baseline - no change to home therapy (4) COPD (chronic obstructive pulmonary disease): Current visit: No Status: Chronic At baseline - continue home therapy (5) Interstitial lung disease: Current visit: No Status: Chronic At baseline - continue home therapy (6) Gastroesophageal reflux disease without esophagitis: Current visit: No Status: Chronic Continue protonix + carafate. If C. diff is positive, change to H2 imer. (7) Essential hypertension: Current visit: No Status: Chronic Not on therapy at this time - monitor (8) Cognitive impairment: Current visit: No Status: Chronic Certainly a concern for medication safety. Palliative care is consulted. Placement is being considered. (9) DVT prophylaxis: Current visit: No Status: Acute Teds + SCD's (chemical dvt prophylaxis is contraindicated in setting of hem + stools) (10) Discharge planning issues: Current visit: Yes Status: Acute Keep in ICU. Full code. Palliative care consult A total of 40 minutes were spent on patient today Subjective Interval history since last seen: Remains on insulin gtt, she is now on 9.9 units/hr. BG was 240. She is on D5NS with 40 meq at 250 cc/hr. Urine cloudy. Mental status at baseline. Nursing notes crackles at both bases. On 2L 97%. This is being weaned today. In NSR-ST 90-110's while flat. SBP's 105-110s. Nauseated this morning. Grandson called - he used to be her guardian, moved out of state. He feels Ms Kenton is having trouble administering her insulin at home and would benefit from a long-term setting. He is no longer her guardian. Complains of abdominal pain, nausea, diarrhea x [address] c/w colitis. Denies dizziness, chest pain, shortness of breath. Feels better today. Exam Narrative Exam Narrative: General: Obese middle-aged female, restless in bed, A&Ox3 (but initially got the year wrong) HEENT: EOMI, dry MM Heart: RRR, no m/r/g Lungs: Diminished breath sounds B GI: abdomen is soft, distended, diffusely tender Extremities: no e/c/c BLE's, 1+ pedal pulses B Objective Objective Clinical Data: Abnormal lab results 03/12/19 03/12/19 03/12/19 Range/Units 17:38 17:38 18:44 WBC 13.30 H (4.4-10.8) k/cumm RBC (4.00-5.20) m/cumm Hgb (12.0-15.5) g/dL Hct (36.0-46.0) % MPV 11.1 H (8.0-11.0) fL Absolute Neutrophils 11.89 H (1.2-6.7) k/cumm Absolute Lymphocytes 0.74 L (1.2-3.4) k/cumm Sodium 132 L (136-145) mmol/L Potassium (3.5-5.1) mmol/L Chloride 91 L (98-107) mmol/L Carbon Dioxide 12.1 L (21.0-32.0) mmol/L Anion Gap 28.9 H (3-11) mmol/L BUN 24 H (7-18) mg/dL Creatinine 1.77 H (0.55-1.02) mg/dL Glucose 847 H* (70-100) mg/dL Alkaline Phosphatase 132 H (46-116) U/L Troponin I 0.55 H* (0.00-0.06) ng/mL Albumin 3.3 L (3.4-5.0) g/dL Urine Protein Trace H (Negative) mg/dL Urine Ketones >=160 H (Negative) mg/dL Urine Blood Trace-intact H (Negative) Urine Bilirubin Small H (Negative) Urine Glucose 500 H (Negative) mg/dL 03/12/19 03/12/19 03/13/19 Range/Units 19:57 22:00 02:10 WBC (4.4-10.8) k/cumm RBC (4.00-5.20) m/cumm Hgb (12.0-15.5) g/dL Hct (36.0-46.0) % MPV (8.0-11.0) fL Absolute Neutrophils (1.2-6.7) k/cumm Absolute Lymphocytes (1.2-3.4) k/cumm Sodium (136-145) mmol/L Potassium 3.2 L (3.5-5.1) mmol/L Chloride (98-107) mmol/L Carbon Dioxide 13.9 L 19.9 L (21.0-32.0) mmol/L Anion Gap 25.1 H 18.1 H (3-11) mmol/L BUN (7-18) mg/dL Creatinine (0.55-1.02) mg/dL Glucose 650 H* D (70-100) mg/dL Alkaline Phosphatase (46-116) U/L Troponin I (0.00-0.06) ng/mL Albumin (3.4-5.0) g/dL Urine Protein (Negative) mg/dL Urine Ketones (Negative) mg/dL Urine Blood (Negative) Urine Bilirubin (Negative) Urine Glucose (Negative) mg/dL 03/13/19 03/13/19 Range/Units 06:32 07:45 WBC (4.4-10.8) k/cumm RBC 3.95 L (4.00-5.20) m/cumm Hgb 11.8 L (12.0-15.5) g/dL Hct 34.7 L (36.0-46.0) % MPV (8.0-11.0) fL Absolute Neutrophils 8.09 H (1.2-6.7) k/cumm Absolute Lymphocytes 0.98 L (1.2-3.4) k/cumm Sodium (136-145) mmol/L Potassium 3.2 L (3.5-5.1) mmol/L Chloride (98-107) mmol/L Carbon Dioxide 18.6 L (21.0-32.0) mmol/L Anion Gap 15.4 H (3-11) mmol/L BUN (7-18) mg/dL Creatinine 1.31 H (0.55-1.02) mg/dL Glucose (70-100) mg/dL Alkaline Phosphatase (46-116) U/L Troponin I (0.00-0.06) ng/mL Albumin (3.4-5.0) g/dL Urine Protein (Negative) mg/dL Urine Ketones (Negative) mg/dL Urine Blood (Negative) Urine Bilirubin (Negative) Urine Glucose (Negative) mg/dL Vital Signs Temperature 37.3 C 03/13/19 03:55 Temperature Source Temporal Artery Scan 03/13/19 03:55 Pulse 108 H 03/13/19 06:01 Pulse 106 H 03/13/19 06:01 Respiratory Rate 28 H 03/13/19 06:01 Respiratory Effort Non-Labored 03/13/19 03:55 Respiratory Depth Normal 03/13/19 03:55 Respiratory Pattern Normal 03/13/19 03:55 Blood Pressure 119/46 L 03/13/19 06:01 Blood Pressure Mean 61 03/13/19 06:01 Blood Pressure Position Supine 03/13/19 03:55 Pulse Oximetry 100 03/12/19 22:10 Oxygen Delivery Method Nasal Cannula 03/12/19 21:05 Oxygen Flow Rate 2 03/12/19 21:05 Pain Level 0 03/13/19 03:55 Intake & Output 03/12/19 03/12/19 03/13/19 11:59 23:59 11:59 Intake Total 788.606 / 567.250 3286.667 / 2088.667 Output Total 580 / 580 700 / 700 Balance 208.606 / 169.124 3846.667 / 1388.667 Weight 93.894 kg 86 kg Intake: IV 548.606 / 848.260 3795.667 / 1418.667 Oral 240 / 240 670 / 670 Output: Urine 580 / 580 700 / 700 Other: Urine Color Pale Yellow Urine Appearance Clear Cloudy Stool Size Moderate Smear Stool Characteristics Liquid Soft Brown Brown Laboratory Results WBC 10.02 k/cumm (4.4-10.8) 03/13/19 07:45 RBC 3.95 m/cumm (4.00-5.20) L 03/13/19 07:45 Hgb 11.8 g/dL (12.0-15.5) L 03/13/19 07:45 Hct 34.7 % (36.0-46.0) L 03/13/19 07:45 MCV 87.8 fL (80-95) 03/13/19 07:45 MCH 29.9 pg (27.0-33.0) 03/13/19 07:45 MCHC 34.0 g/dL (32.0-36.0) 03/13/19 07:45 RDW 13.7 % (11.7-14.6) 03/13/19 07:45 Plt Count 293 x1000/uL (130-400) D 03/13/19 07:45 MPV 10.8 fL (8.0-11.0) 03/13/19 07:45 Immature Gran % 0.3 03/13/19 07:45 Neutrophils % 80.7 03/13/19 07:45 Lymphocytes % 9.8 03/13/19 07:45 Monocytes % 6.6 03/13/19 07:45 Eosinophils % 2.2 03/13/19 07:45 Basophils % 0.4 03/13/19 07:45 Absolute Neutrophils 8.09 k/cumm (1.2-6.7) H 03/13/19 07:45 Absolute Lymphocytes 0.98 k/cumm (1.2-3.4) L 03/13/19 07:45 Absolute Monocytes 0.66 k/cumm (0.11-0.7) 03/13/19 07:45 Absolute Eosinophils 0.22 k/cumm (0.0-0.7) 03/13/19 07:45 Absolute Basophils 0.04 k/cumm (0.0-0.2) 03/13/19 07:45 VBG pH Cancelled 03/12/19 18:50 VBG pCO2 Cancelled 03/12/19 18:50 VBG pO2 Cancelled 03/12/19 18:50 VBG HCO3 Cancelled 03/12/19 18:50 VBG Total CO2 Cancelled 03/12/19 18:50 VBG O2 Saturation Cancelled 03/12/19 18:50 VBG Base Excess Cancelled 03/12/19 18:50 Sodium 141 mmol/L (136-145) 03/13/19 06:32 Potassium 3.2 mmol/L (3.5-5.1) L 03/13/19 06:32 Chloride 107 mmol/L (98-107) 03/13/19 06:32 Carbon Dioxide 18.6 mmol/L (21.0-32.0) L 03/13/19 06:32 Anion Gap 15.4 mmol/L (3-11) H 03/13/19 06:32 BUN 14 mg/dL (7-18) D 03/13/19 06:32 Creatinine 1.31 mg/dL (0.55-1.02) H 03/13/19 06:32 Estimated GFR/1.73 m2 40.50 (mL/min/1.73m2) 03/13/19 06:32 Glucose 650 mg/dL (70-100) H* D 03/12/19 19:57 Calcium 9.4 mg/dL (8.5-10.1) 03/12/19 17:38 Magnesium 2.3 mg/dL (1.8-2.4) 03/12/19 17:38 Total Bilirubin 0.9 mg/dL (0.2-1.0) 03/12/19 17:38 AST 18 U/L (15-37) 03/12/19 17:38 ALT 22 U/L (12-78) 03/12/19 17:38 Alkaline Phosphatase 132 U/L (46-116) H 03/12/19 17:38 Troponin I 0.03 ng/mL (0.00-0.06) 03/13/19 06:32 Total Protein 7.7 g/dL (6.4-8.2) 03/12/19 17:38 Albumin 3.3 g/dL (3.4-5.0) L 03/12/19 17:38 Urine Color Straw (Yellow) 03/12/19 18:44 Urine Clarity Clear 03/12/19 18:44 Urine pH 5.0 (5-8) 03/12/19 18:44 Ur Specific [place] 1.010 (1.005-1.025) 03/12/19 18:44 Urine Protein Trace mg/dL (Negative) H 03/12/19 18:44 Urine Ketones >=160 mg/dL (Negative) H 03/12/19 18:44 Urine Blood Trace-intact (Negative) H 03/12/19 18:44 Urine Nitrite Negative (Negative) 03/12/19 18:44 Urine Bilirubin Small (Negative) H 03/12/19 18:44 Urine Urobilinogen 0.2 EU/dL (Up TO 0.2) 03/12/19 18:44 Ur Leukocyte Esterase Negative (Negative) 03/12/19 18:44 Urine RBC Negative (0-2) 03/12/19 18:44 Urine WBC Negative HPF (0-5) 03/12/19 18:44 Ur Epithelial Cells Negative HPF (Negative) 03/12/19 18:44 Urine Crystals Few amorphous HPF (Negative) 03/12/19 18:44 Urine Bacteria Negative HPF (Negative) 03/12/19 18:44 Urine Casts Negative LPF (Negative) 03/12/19 18:44 Urine Mucus Negative (Negative) 03/12/19 18:44 Urine Other Negative (Negative) 03/12/19 18:44 Ur Culture Indicated? No 03/12/19 18:44 Urine Glucose 500 mg/dL (Negative) H 03/12/19 18:44 CT abdomen/pelvis: 1. Generalized colonic wall thickening consistent with colitis. No evidence of perforation or abscess. 2. Bilateral basilar interstitial changes suggesting interstitial fibrosis/UIP, with patchy alveolar opacities in the right base which could represent an element of active alveolitis, chronic scarring/atelectasis, or superimposed patchy right basilar infiltrate. 3. Geographic fatty infiltration of the left hepatic lobe. There are multiple low-density foci of mature fat density in the liver as well which are most consistent with focal fatty infiltration. MRI of the liver would allow the most specific imaging confirmation of focal fatty infiltration. 4. Moderate L1 superior endplate compression deformity with 2 mm retropulsion. This is age-indeterminate.
[2019-03-13] MEDS: POTASSIUM CHLORIDE/D5-0.9%NACL 1,000 ML 150 MEQ IV ×3 (09:02→22:28)
--- NOTE | 2019-03-13 09:09 | DI.RAD_ITS ---
SYMPTOMS/DIAGNOSIS: CRACKLES PORTABLE CHEST: Comparison is made with [id number]. The heart size is again noted to be normal. Again noted are low lung volumes. There is mild respiratory motion. There has been no change in the appearance of the lungs, with some right sided volume loss and chronic interstitial changes, right greater than left. No superimposed acute infiltrate, effusion or pulmonary edema is seen. IMPRESSION: Stable appearance of the chest.
[2019-03-13] MEDS: Sucralfate 1 GM TAB PO ×4 (09:25→21:37)
[2019-03-13] MEDS: Pantoprazole 40 MG TABCR PO ×2 (09:25→16:50)
[2019-03-13] MEDS: CIPROFLOXACIN 200 MG/100 ML BAG 100 MG IVPB ×2 (09:35→21:37)
[2019-03-13] MEDS: Normal Saline Flush 10 ML SYR IVP ×2 (09:41→12:11)
[2019-03-13 10:08] LABS: HCO3 17 mmol/L (22-28); pCO2 33 mmHg (34-47); pH 7.33 (7.35-7.45); pO2 93 mmHg (83-108); sO2 98 % (94-98); tCO2 16 mmol/L (22-29)
[2019-03-13 10:10] LABS: BE -8.8 mmol/L (-3-3)
[2019-03-13 10:11] LABS: FIO2 Nasal Cannula %; FIO2L 2 L; Site Right Radial
[2019-03-13 10:29] LABS: Anion Gap 12.3 mmol/L (3-11); BUN 12 mg/dL (7-18); CO2 18.7 mmol/L (21.0-32.0); CREATININE 1.36 mg/dL (0.55-1.02); Calcium 8.7 mg/dL (8.5-10.1); Chloride 108 mmol/L (98-107); Estimated GFR 38.78 (mL/min/1.73m2); Glucose 217 mg/dL (70-100); Potassium 3.3 mmol/L (3.5-5.1); Sodium 139 mmol/L (136-145)
[2019-03-13] MEDS: metroNIDAZOLE 500 MG/100 ML BAG 100 MG IVPB ×2 (11:00→18:55)
[2019-03-13] MEDS: Nystatin POWDER 60 GM JAR TP ×3 (11:11→19:38)
[2019-03-13] MEDS: Insulin Glargine 300 UNITS/3 ML PEN 35 UNITS SC (11:16)
[2019-03-13] MEDS: POTASSIUM CHLORIDE 20 MEQ/100 ML BAG 50 MEQ IVPB ×2 (12:08→14:11)
[2019-03-13] MEDS: Ondansetron 4 MG/2 ML VIAL IVP (12:10)
--- NOTE | 2019-03-13 12:47 | PHARADMIT ---
Addendum entered by Chel Arambula 03/18/19 11:33: Pharmacy Note Subjective no nausea, abdominal pain improved per progress note; wants to get pt up and moving Objective HR-92 other VS okay Cl-108 mag-1.5 FSBG-128 Assessment enoxaparin ordered, ferrous sulfate timing adjusted due to addition of PO magnesium TID Plan watch mag levels Addendum entered by Caleb Duarte III 03/17/19 13:30: Pharmacy Note Subjective Completed 5 day course of ABX for ?colitis-resolved, no more diarrhea. ? of ileus or SBO Objective VS-OK K+3.5, H&H-10.8/33.3 Assessment Flagyl/Cipro IV DC'd. PO Iron started Plan Awaiting eferral to H&R on Monday Addendum entered by Caleb Duarte III 03/16/19 14:03: Pharmacy Note Subjective DKA resolved, Colitis-awaiting stool cultures, remains on Cipro/Flagyl. Patient was transferred to floor overnight. N&V today. Objective VS-OK Lytes,SCr,h&h,Plts-OK Wgt-95.5 kg?? small BM yesterday Assessment DVT proph w/TEDs & SCDs Plan Probable Sing Bed before dischargeCOLST form completed during palliative consult. Addendum entered by Caleb Duarte III 03/15/19 14:18: Pharmacy Note Subjective Advancing diet today. No mor abdominal pain Objective VS-OK SCr-0.89 K+3.8 Mag-1.6 BG-171 FSBS-209 Wgt-88.5Kg Last BM 03/13 Assessment Insulin drip dc'd restarted Lantus (home dose) and ASpart Tawanda & SS insulin. C-diff negative (Vanco dc'd) Cipro 20mg iv q12 hr started, Flagyl continues Mag bolus given. Plan Addendum entered by Kristi Candelaria 03/14/19 10:28: Pharmacy Note Subjective pt more acidotic this AM, possibly fluid excess, chest and abd xrays ordered Objective vs ok, SCr down, glucose 123 Assessment PO vanco and IV metronidazole for CDiff, PCR pending, insulin infusion continues Plan expect wean insulin gtt and monitoring BMP/repleting lytes Original Note: Admission Pharmacy Clinical Review Code Status Full Code Current Weight 86 kg Renally Cleared and Narrow Therapeutic Index Meds None QTc Value / Action Taken 475 BP Control, Fever 108/38, afebrile Electrolytes reviewed K+ 3.3 DVT Prophylaxis N/A Opiate Usage / Scheduled Bowel Regimen Ordered N/A Plt/SCr for Heparin / Enoxaparin Scr 1.36 INR for Warfarin n/a H/H stable, WBC/Bands H/H 11.8/34.7 Antibiotic appropriateness IV cipro and flagyl for acute colitis Cultures and Sensitivities Cdiff screen pending Surgical ABX d/c within 24 hr n/a DM control / Insulin Dosing BG 217 (down from 650) - titrating down insulin drip, admin'd half of home basal insulin dose (35U) in AM (home dose = 70U HS) Heart Failure (Check EF%) (DAYANARA's, B-Block, Diuretics) Furosemide 20mg BID Losartan 25mg BID (from 06/01/18) IV to PO Switch Home Meds Reviewed Yes Home Meds Not Ordered acidophilus TID donepezil 5mg daily escitalopram 10mg daily furosemide 20mg BID Tradjenta 5mg daily simvastatin 40mg HS sucralfate 1g AC and HS Comments BP is very low but consider restarting ACEI or ARB for kidney protection per ADA guidelines
[2019-03-13 14:31] LABS: Anion Gap 12.1 mmol/L (3-11); BUN 10 mg/dL (7-18); CO2 17.9 mmol/L (21.0-32.0); CREATININE 1.26 mg/dL (0.55-1.02); Calcium 8.5 mg/dL (8.5-10.1); Chloride 108 mmol/L (98-107); Estimated GFR 42.36 (mL/min/1.73m2); Glucose 172 mg/dL (70-100); Potassium 3.7 mmol/L (3.5-5.1); Sodium 138 mmol/L (136-145)
--- NOTE | 2019-03-13 17:24 | PDOC.CMIN ---
Care Management Initial Assess REASON FOR HOSPITALIZATION:: DKA PAST MEDICAL HISTORY/PAST SURGICAL HISTORY:: nternal derangement of right knee (Chronic). Back pain (Chronic). Asthma (Chronic). Osteoporosis (Chronic 03/16/18). Neck pain (Chronic 03/16/18). Migraine (Chronic 04/03/14). Long-term use of high-risk medication (Chronic 03/16/18). Interstitial lung disease (Chronic 03/16/18). History of shingles (Resolved 03/16/18). Gastroesophageal reflux disease without esophagitis (Chronic 03/16/18). Essential hypertension (Chronic 07/17/13). Edema (Chronic 03/16/18). Dyspnea (Chronic 03/16/18). Depressive disorder (Chronic). Cubital tunnel syndrome (Resolved 03/16/18). Cognitive impairment (Chronic 03/16/18). Chronic constipation (Chronic 03/16/18). Anxiety (Chronic 03/16/18). Acute gastroenteritis (Resolved 03/16/18). Umbilical hernia (Chronic). Type II diabetes mellitus, uncontrolled (Chronic). Total urinary incontinence (Chronic). Shoulder pain (Chronic). Post herpetic neuralgia (Chronic 03/16/18). Peripheral neuralgia (Chronic). 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 Hyperlipemia (Acute). Asthma (Chronic). Insulin dependent diabetes mellitus (Chronic). Appendectomy. Arthroscopy, Shoulder. Bilateral salpingectomy with oophorectomy. section. Cholecystectomy. Ligation of fallopian tube. Thoracoscopic (R)Lung Bx (02/12/18) PREVIOUS FUNCTIONAL STATUS/SOCIAL/FAMILY SUPPORTS:: Elly resides alone in [facility]. She reports multiple family members locally including her brother Brian whom she states she shares a car with, but has not driven in some time. Her son Himanshu and grandchildren are local as well and all supportive per her report. Her Grandson and previous POA recently moved out of state and she reports missing him. Elly reports she has not been attending [facility] the last few weeks. She utilizes [facility] and her brother Brian for transportation. CURRENT FUNCTIONAL STATUS:: Elly is lying in bed in the ICU. She reports stomach pain and closes her eyes periodically during discussion. She only requests gingerale on ice to help with her nausea; which is provided. She appears somewhat groggy though appears to provide accurate information. CM will continue to follow. ADVANCE DIRECTIVES:: On file at [facility] though per chart review there is question of current accuracy will need to confirm when Elly is more alert. Has patient been provided with information about the portal?: Yes Did the patient sign up for the portal?: Yes (Previously ) CODE STATUS:: Full Code INSURANCE COVERAGE / FINANCIAL ISSUES:: [facility], [facility], [facility] CURRENT HOME/COMMUNITY SERVICES/EQUIPMENT:: [employer], [employer], Diabetic supplies; insulin dependent, Motorized wheelchair, FWW, Home O2 PRIMARY CARE PHYSICIAN:: Mario Garcia POTENTIAL DISCHARGE NEEDS:: Evaluation of further needs; coordination of [id number] and coordination of previous/increased service supports. Determine level of functioning; guardianship needs. AD document update. PATIENT/FAMILY EDUCATION NEEDS:: Review of discharge instructions, discuss Ask Me Three. ANTICIPATED BARRIERS TO DISCHARGE:: None identified. TRANSPORTATION:: TBD by disposition and clinical need. PLAN:: Elly will continue to be closely monitored and treated. Once more alert, the hope is to determine guardianship status and update AD document as well as determine disposition. CM will continue to follow and support Elly with considerations.
--- NOTE | 2019-03-13 17:28 | INITIAL_ITS ---
Care Management Initial Assess REASON FOR HOSPITALIZATION:: DKA PAST MEDICAL HISTORY/PAST SURGICAL HISTORY:: nternal derangement of right knee (Chronic). Back pain (Chronic). Asthma (Chronic). Osteoporosis (Chronic 03/16/18). Neck pain (Chronic 03/16/18). Migraine (Chronic 04/03/14). Long- term use of high-risk medication (Chronic 03/16/18). Interstitial lung disease (Chronic 03/16/18). History of shingles (Resolved 03/16/18). Gastroesophageal reflux disease without esophagitis (Chronic 03/16/18). Essential hypertension (Chronic 07/17/13). Edema (Chronic 03/16/18). Dyspnea (Chronic 03/16/18). Depressive disorder (Chronic). Cubital tunnel syndrome (Resolved 03/16/18). Cognitive impairment (Chronic 03/16/18). Chronic constipation (Chronic 03/16/18). Anxiety (Chronic 03/16/18). Acute gastroenteritis (Resolved 03/16/18). Umbilical hernia (Chronic). Type II diabetes mellitus, uncontrolled (Chronic). Total urinary incontinence (Chronic). Shoulder pain (Chronic). Post herpetic neuralgia (Chronic 03/16/18). Peripheral neuralgia (Chronic). 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 Hyperlipemia (Acute). Asthma (Chronic). Insulin dependent diabetes mellitus (Chronic). Appendectomy. Arthroscopy, Shoulder. Bilateral salpingectomy with oophorectomy. section. Cholecystectomy. Ligation of fallopian tube. Thoracoscopic (R)Lung Bx (02/12/18) PREVIOUS FUNCTIONAL STATUS/SOCIAL/FAMILY SUPPORTS:: Elly resides alone in [facility]. She reports multiple family members locally including her brother Brian whom she states she shares a car with, but has not driven in some time. Her son Himanshu and grandchildren are local as well and all supportive per her report. Her Grandson and previous POA recently moved out of state and she reports missing him. Elly reports she has not been attending [facility] the last few weeks. She utilizes [facility] and her brother Brian for transportation. CURRENT FUNCTIONAL STATUS:: Elly is lying in bed in the ICU. She reports stomach pain and closes her eyes periodically during discussion. She only requests gingerale on ice to help with her nausea; which is provided. She appears somewhat groggy though appears to provide accurate information. CM will continue to follow. ADVANCE DIRECTIVES:: On file at [facility] though per chart review there is question of current accuracy will need to confirm when Elly is more alert. Has patient been provided with information about the portal?: Yes Did the patient sign up for the portal?: Yes (Previously ) CODE STATUS:: Full Code INSURANCE COVERAGE / FINANCIAL ISSUES:: [facility], [facility], [facility] CURRENT HOME/COMMUNITY SERVICES/EQUIPMENT:: [employer], [employer], Diabetic supplies; insulin dependent, Motorized wheelchair, FWW, Home O2 PRIMARY CARE PHYSICIAN:: Mario Garcia POTENTIAL DISCHARGE NEEDS:: Evaluation of further needs; coordination of [id number] and coordination of previous/increased service supports. Determine level of functioning; guardianship needs. AD document update. PATIENT/FAMILY EDUCATION NEEDS:: Review of discharge instructions, discuss Ask Me Three. ANTICIPATED BARRIERS TO DISCHARGE:: None identified. TRANSPORTATION:: TBD by disposition and clinical need. PLAN:: Elly will continue to be closely monitored and treated. Once more alert, the hope is to determine guardianship status and update AD document as well as determine disposition. CM will continue to follow and support Elly with considerations.
[2019-03-13 18:41] LABS: Anion Gap 10.3 mmol/L (3-11); BUN 8 mg/dL (7-18); CO2 18.7 mmol/L (21.0-32.0); CREATININE 1.08 mg/dL (0.55-1.02); Calcium 8.6 mg/dL (8.5-10.1); Chloride 110 mmol/L (98-107); Glucose 102 mg/dL (70-100); Potassium 3.8 mmol/L (3.5-5.1); Sodium 139 mmol/L (136-145)
[2019-03-13 22:24] LABS: Anion Gap 13.2 mmol/L (3-11); BUN 7 mg/dL (7-18); CO2 17.8 mmol/L (21.0-32.0); CREATININE 1.14 mg/dL (0.55-1.02); Calcium 8.4 mg/dL (8.5-10.1); Chloride 110 mmol/L (98-107); Estimated GFR 47.54 (mL/min/1.73m2); Glucose 93 mg/dL (70-100); Potassium 4.1 mmol/L (3.5-5.1); Sodium 141 mmol/L (136-145)
[2019-03-14] VITALS (36 sets, daily range): BP systolic 86–130; BP diastolic 39–67; PULSE 78–112; RESP 18–31; TEMP 36.4–37.7; O2SAT 93–99
[2019-03-14] MEDS: metroNIDAZOLE 500 MG/100 ML BAG 100 MG IVPB ×3 (01:56→17:59)
[2019-03-14] MEDS: Normal Saline Flush 10 ML SYR IVP ×5 (04:50→20:21)
[2019-03-14] MEDS: Ondansetron 4 MG/2 ML VIAL IVP (04:50)
[2019-03-14] MEDS: Albuterol 2.5 MG/3 ML INH SOLN VIAL IH (04:50)
[2019-03-14] MEDS: POTASSIUM CHLORIDE/D5-0.9%NACL 1,000 ML 150 MEQ IV (04:51)
[2019-03-14 07:03] LABS: Abs Immature Grans 0.02 k/cumm (0.0-0.09); Absolute Basophil Count 0.05 k/cumm (0.0-0.2); Absolute Eosinophil Count 0.31 k/cumm (0.0-0.7); Absolute Lymphocyte Count 1.17 k/cumm (1.2-3.4); Absolute Monocyte Count 0.41 k/cumm (0.11-0.7); Basophils % 0.8; Eosinophils % 4.9; HGB 11.6 g/dL (12.0-15.5); Immature Grans % 0.3; Lymphocytes % 18.5; Mean Corp. HGB Concentration 33.1 g/dL (32.0-36.0); Mean Corpuscular Hemoglobin 29.8 pg (27.0-33.0); Mean Platelet Volume 10.7 fL (8.0-11.0); Monocytes % 6.5; Platelet Count 257 x1000/uL (130-400); RBC 3.89 m/cumm (4.00-5.20); RBC Distribution Width 14.3 % (11.7-14.6); White Blood Cell Count 6.34 k/cumm (4.4-10.8)
[2019-03-14 07:14] LABS: Absolute Neutrophil Count 4.37 k/cumm (1.2-6.7)
[2019-03-14] MEDS: Budesonide/Formoterol 160/4.5 6 GM 60 PUFF INH IH ×2 (07:18→20:49)
[2019-03-14 07:24] LABS: BUN 6 mg/dL (7-18); CREATININE 1.03 mg/dL (0.55-1.02); Calcium 8.1 mg/dL (8.5-10.1); Chloride 112 mmol/L (98-107); Estimated GFR 53.45 (mL/min/1.73m2); Glucose 123 mg/dL (70-100); Magnesium 1.4 mg/dL (1.8-2.4); Potassium 3.8 mmol/L (3.5-5.1); Sodium 142 mmol/L (136-145)
[2019-03-14] MEDS: Pantoprazole 40 MG TABCR PO (07:59)
[2019-03-14] MEDS: Sucralfate 1 GM TAB PO ×4 (08:00→21:01)
[2019-03-14] MEDS: MAGNESIUM SULFATE 4 GM/100 ML BAG IVPB (08:11)
[2019-03-14 08:19] LABS: HCO3 (Venous) 13 mmol/L (22-28); TCO2 (Venous) 14 mmol/L (22-29); pCO2 (Venous) 30 mm/Hg (34-47); pH (Venous) 7.23 (7.32-7.43); pO2 (Venous) 35 mm/Hg (28-44)
[2019-03-14 08:20] LABS: O2 Sat (Venous) 57 % (70-80)
[2019-03-14 08:36] LABS: Lactate-non-spesis 1.8 mmol/l (0.6-1.4)
--- NOTE | 2019-03-14 09:01 | DI.RAD_ITS ---
SYMPTOM/DIAGNOSIS: ? PERFORATION, CRACKLES IN LUNGS PORTABLE AP CHEST: When compared with the previous examination of 03/13, increased interstitial densities are noted in the lungs. There is no gross infiltrate or evidence of a pleural effusion. The heart is not enlarged. SUMMARY: Question increased pulmonary densities when compared with the previous examination. The possibility of an acute pneumonitis could not be excluded in this patient. PORTABLE ABDOMEN: The bowel gas pattern is nonspecific. There is no evidence of gross free air on this supine examination. There is no evidence of gross organomegaly or a localized intra-abdominal or pelvic mass. SUMMARY: No evidence of an acute abdomen. If there is any further question regarding the possibility of free air, then further assessment with an upright or decubitus projections of the abdomen is suggested.
[2019-03-14] MEDS: Insulin Glargine 300 UNITS/3 ML PEN 50 UNITS SC (09:05)
--- NOTE | 2019-03-14 09:10 | PDOC.CMPRO ---
Care Management Progress Note S/O: Elly was reviewed during interdisciplinary rounds meeting, per MD, Elly is worsening clinically and requires close monitoring of fluid balance and DKA status. CM spoke with Elly's grandson and previous guardian, Jorge Luis P#[phone]. Jorge Luis reviewed a long history of caring for his grandmother since he was [age]. His thoughts were that Elly would likely refuse intervention once she returns to baseline functioning. He felt the best plan would be to present SNF coordination with the goal of having Elly accept Home Health Services. Jorge Luis shared concerns that Elly has not been attending [facility] services in months and is declining in her home setting. He stated Elly historically is high functioning enough to self-determine though she lacks some frontal functioning skills and struggles with managing her own care and ADLs at home. He referenced her ability to only be able to manage AM, NOON and PM meds, though MDs prescribe meds throughout the day. He reported she is unable to manage a check book or write a complete sentence. He is unable to commit to being her guardian again. He reports he was her only guardian because it was a voluntary guardianship situation and Elly has not met criteria for involuntary guardianship. CM will work toward increased services at home and await determination of Palliative Care Consult. A: 68 year old female admitted to [facility] 03/12/19 for DKA P: Elly will continue to be closely monitored and treated. Anticipate Elly will meet with Dr. Centeno tomorrow; CM has requested Dr. Centeno speak with Jorge Luis as well. CM will continue to follow and support Elly with considerations.
[2019-03-14] MEDS: Furosemide 20 MG/2 ML VIAL 10 MG IVP (09:32)
[2019-03-14 10:59] LABS: T4 5.3 ug/dL (4.5-12.5)
[2019-03-14] MEDS: Cholestyramine/Aspartame PKT 1 EACH PO ×2 (11:22→19:45)
[2019-03-14 12:14] LABS: Result Negative; Specimen Description Feces
[2019-03-14 12:17] LABS: Lactate-non-spesis 2.1 mmol/l (0.6-1.4)
--- NOTE | 2019-03-14 12:31 | PGE_ITS ---
Date of Service Date of service: 03/14/19 Time of Service: 12:29 Assessment and Plan (1) DKA (diabetic ketoacidoses): Current visit: Yes Status: Acute in setting of uncontrolled type 2 DM (insulin dependent). Remains on insulin gtt - received a bigger dose of long acting insulin today in an attempt to wean it off. pH is worse today than yesterday - I wonder if fluid expansion is contributing. Continue to monitor chemistries/replete lytes. Treat colitis (likely C. Diff). *Per son who contacted the ICU, the patient has difficulty administering her own insulin. Placement will have to be considered. (2) Acute colitis: Current visit: Yes Status: Acute As there is a suggestion that this could be C. diff, cipro was d/c'ed, flagyl IV continued, PO vancomycin added. Will also add lactobacilli. Clinically slightly improved. Await C. Diff PCR. May have broth today. Hemoccult positive - expected in setting of colitis. (3) CHF (congestive heart failure): Current visit: Yes Status: Chronic Acute on likely chronic, but I do not see an echo in our system, but she used to be on lasix. Will obtain an echocardiogram. Diurese while on IVF. Checking TSH. (4) Chronic respiratory failure with hypoxia: Current visit: No Status: Chronic At baseline - no change to home therapy (5) COPD (chronic obstructive pulmonary disease): Current visit: No Status: Chronic At baseline - continue home therapy (6) Interstitial lung disease: Current visit: No Status: Chronic At baseline - continue home therapy (7) Gastroesophageal reflux disease without esophagitis: Current visit: No Status: Chronic Continue carafate. Protonix changed to H2 imer. (8) Essential hypertension: Current visit: No Status: Chronic Not on therapy at this time - monitor (9) Cognitive impairment: Current visit: No Status: Chronic Certainly a concern for medication safety. Palliative care is consulted. Placement is being considered. (10) DVT prophylaxis: Current visit: No Status: Acute Teds + SCD's (chemical dvt prophylaxis is contraindicated in setting of hem + stools) (11) Discharge planning issues: Current visit: Yes Status: Acute Keep in ICU. Full code. Palliative care consult A total of 35 minutes were spent on patient today Subjective Interval history since last seen: Ms Pina states she is feeling a little bit better. Continues to have diarrhea - her testing for C. Diff was indeterminant, PCR is pending. She states she only has a small amount of abdominal pain at this point - lower. She is requesting broth. She says she gets nauseated when she coughs. She does have a nonproductive cough, she states it is her chronic. Denies dizziness, chest pain, shortness of breath. She remains on the insulin gtt. Exam Narrative Exam Narrative: General: Obese middle-aged female, looks more comfortable than yesterday, looks better, A&Ox3 HEENT: EOMI, dry MM Heart: RRR, no m/r/g Lungs: Quiet crackles at B bases. GI: abdomen is soft, minimally tender, nondistended Extremities: +1 edema BLE's, no c/c; 1+ pedal pulses B Objective Objective Clinical Data: Abnormal lab results 03/13/19 03/13/19 03/13/19 Range/Units 14:08 18:15 22:05 RBC (4.00-5.20) m/cumm Hgb (12.0-15.5) g/dL Hct (36.0-46.0) % Absolute Lymphocytes (1.2-3.4) k/cumm VBG pH (7.32-7.43) VBG pCO2 (34-47) mm/Hg VBG HCO3 (22-28) mmol/L VBG Total CO2 (22-29) mmol/L VBG O2 Saturation (70-80) % VBG Base Excess (-3-3) mmol/L Chloride 108 H 110 H 110 H (98-107) mmol/L Carbon Dioxide 17.9 L 18.7 L 17.8 L (21.0-32.0) mmol/L Anion Gap 12.1 H 13.2 H (3-11) mmol/L BUN (7-18) mg/dL Creatinine 1.26 H 1.08 H 1.14 H (0.55-1.02) mg/dL Glucose 172 H 102 H D (70-100) mg/dL Lactate (0.6-1.4) mmol/l Calcium 8.4 L (8.5-10.1) mg/dL Magnesium (1.8-2.4) mg/dL 03/14/19 03/14/19 03/14/19 Range/Units 06:25 06:25 08:00 RBC 3.89 L (4.00-5.20) m/cumm Hgb 11.6 L (12.0-15.5) g/dL Hct 35.0 L (36.0-46.0) % Absolute Lymphocytes 1.17 L (1.2-3.4) k/cumm VBG pH 7.23 L (7.32-7.43) VBG pCO2 30 L (34-47) mm/Hg VBG HCO3 13 L (22-28) mmol/L VBG Total CO2 14 L (22-29) mmol/L VBG O2 Saturation 57 L (70-80) % VBG Base Excess -15.0 L (-3-3) mmol/L Chloride 112 H (98-107) mmol/L Carbon Dioxide 17.0 L (21.0-32.0) mmol/L Anion Gap 13.0 H (3-11) mmol/L BUN 6 L (7-18) mg/dL Creatinine 1.03 H (0.55-1.02) mg/dL Glucose 123 H (70-100) mg/dL Lactate (0.6-1.4) mmol/l Calcium 8.1 L (8.5-10.1) mg/dL Magnesium 1.4 L (1.8-2.4) mg/dL 03/14/19 03/14/19 Range/Units 08:00 12:00 RBC (4.00-5.20) m/cumm Hgb (12.0-15.5) g/dL Hct (36.0-46.0) % Absolute Lymphocytes (1.2-3.4) k/cumm VBG pH (7.32-7.43) VBG pCO2 (34-47) mm/Hg VBG HCO3 (22-28) mmol/L VBG Total CO2 (22-29) mmol/L VBG O2 Saturation (70-80) % VBG Base Excess (-3-3) mmol/L Chloride (98-107) mmol/L Carbon Dioxide (21.0-32.0) mmol/L Anion Gap (3-11) mmol/L BUN (7-18) mg/dL Creatinine (0.55-1.02) mg/dL Glucose (70-100) mg/dL Lactate 1.8 H 2.1 H (0.6-1.4) mmol/l Calcium (8.5-10.1) mg/dL Magnesium (1.8-2.4) mg/dL Vital Signs Temperature 37.0 C 03/14/19 12:10 Temperature Source Temporal Artery Scan 03/14/19 12:10 Pulse 91 H 03/14/19 12:10 Pulse 99 H 03/14/19 04:00 Respiratory Rate 21 03/14/19 12:10 Respiratory Effort 03/14/19 12:10 Respiratory Depth Normal 03/14/19 12:10 Respiratory Pattern Normal 03/14/19 12:10 Blood Pressure 117/58 L 03/14/19 12:10 Blood Pressure Mean 77 03/14/19 12:10 Blood Pressure Position Sitting 03/14/19 12:10 Pulse Oximetry 98 03/14/19 12:10 Oxygen Delivery Method Room Air 03/14/19 12:10 Oxygen Flow Rate 0 03/14/19 12:10 Pain Level 0 03/14/19 12:10 Intake & Output 03/13/19 03/14/19 03/14/19 23:59 11:59 23:59 Intake Total 3632.889 / 5854.226 1769.833 / 1769.833 Output Total 400 / 1100 700 / 700 Balance 3232.889 / 4754.226 1069.833 / 1069.833 Weight 89 kg Intake: IV 2432.889 / 3984.226 1219.833 / 1219.833 Oral 1200 / 1870 550 / 550 Output: Urine 400 / 1100 700 / 700 Other: Urine Color Yellow Light [place] Urine Appearance Cloudy Cloudy Comment huertas in place, draining cloudy yellow urine. pt has indwellig huertas catheter but has hx of inconitnence pt has indwellig huertas catheter but has hx of inconitnence Laboratory Results WBC 6.34 k/cumm (4.4-10.8) D 03/14/19 06:25 RBC 3.89 m/cumm (4.00-5.20) L 03/14/19 06:25 Hgb 11.6 g/dL (12.0-15.5) L 03/14/19 06:25 Hct 35.0 % (36.0-46.0) L 03/14/19 06:25 MCV 90.0 fL (80-95) 03/14/19 06:25 MCH 29.8 pg (27.0-33.0) 03/14/19 06:25 MCHC 33.1 g/dL (32.0-36.0) 03/14/19 06:25 RDW 14.3 % (11.7-14.6) 03/14/19 06:25 Plt Count 257 x1000/uL (130-400) 03/14/19 06:25 MPV 10.7 fL (8.0-11.0) 03/14/19 06:25 Immature Gran % 0.3 03/14/19 06:25 Neutrophils % 69.0 03/14/19 06:25 Lymphocytes % 18.5 03/14/19 06:25 Monocytes % 6.5 03/14/19 06:25 Eosinophils % 4.9 03/14/19 06:25 Basophils % 0.8 03/14/19 06:25 Absolute Neutrophils 4.37 k/cumm (1.2-6.7) 03/14/19 06:25 Absolute Lymphocytes 1.17 k/cumm (1.2-3.4) L 03/14/19 06:25 Absolute Monocytes 0.41 k/cumm (0.11-0.7) 03/14/19 06:25 Absolute Eosinophils 0.31 k/cumm (0.0-0.7) 03/14/19 06:25 Absolute Basophils 0.05 k/cumm (0.0-0.2) 03/14/19 06:25 Sample Site Right radial 03/13/19 09:57 pCO2 33 mmHg (34-47) L 03/13/19 09:57 pO2 93 mmHg (83-108) 03/13/19 09:57 O2 Saturation 98 % (94-98) 03/13/19 09:57 ABG pH 7.33 (7.35-7.45) L 03/13/19 09:57 ABG HCO3 17 mmol/L (22-28) L 03/13/19 09:57 ABG Total CO2 16 mmol/L (22-29) L 03/13/19 09:57 ABG Base Excess -8.8 mmol/L (-3-3) L 03/13/19 09:57 VBG pH 7.23 (7.32-7.43) L 03/14/19 08:00 VBG pCO2 30 mm/Hg (34-47) L 03/14/19 08:00 VBG pO2 35 mm/Hg (28-44) 03/14/19 08:00 VBG HCO3 13 mmol/L (22-28) L 03/14/19 08:00 VBG Total CO2 14 mmol/L (22-29) L 03/14/19 08:00 VBG O2 Saturation 57 % (70-80) L 03/14/19 08:00 VBG Base Excess -15.0 mmol/L (-3-3) L 03/14/19 08:00 Oxygen Liter Flow 2 L 03/13/19 09:57 FiO2 Nasal cannula % 03/13/19 09:57 Sodium 142 mmol/L (136-145) 03/14/19 06:25 Potassium 3.8 mmol/L (3.5-5.1) 03/14/19 06:25 Chloride 112 mmol/L (98-107) H 03/14/19 06:25 Carbon Dioxide 17.0 mmol/L (21.0-32.0) L 03/14/19 06:25 Anion Gap 13.0 mmol/L (3-11) H 03/14/19 06:25 BUN 6 mg/dL (7-18) L 03/14/19 06:25 Creatinine 1.03 mg/dL (0.55-1.02) H 03/14/19 06:25 Estimated GFR/1.73 m2 53.45 (mL/min/1.73m2) 03/14/19 06:25 Glucose 123 mg/dL (70-100) H 03/14/19 06:25 Lactate 2.1 mmol/l (0.6-1.4) H 03/14/19 12:00 Calcium 8.1 mg/dL (8.5-10.1) L 03/14/19 06:25 Magnesium 1.4 mg/dL (1.8-2.4) L 03/14/19 06:25 Total Bilirubin 0.9 mg/dL (0.2-1.0) 03/12/19 17:38 AST 18 U/L (15-37) 03/12/19 17:38 ALT 22 U/L (12-78) 03/12/19 17:38 Alkaline Phosphatase 132 U/L (46-116) H 03/12/19 17:38 Troponin I 0.03 ng/mL (0.00-0.06) 03/13/19 06:32 Total Protein 7.7 g/dL (6.4-8.2) 03/12/19 17:38 Albumin 3.3 g/dL (3.4-5.0) L 03/12/19 17:38 TSH 0.80 uIU/mL (0.358-3.74) 03/14/19 06:25 Thyroxine (T4) 5.3 ug/dL (4.5-12.5) 03/14/19 06:25 Urine Color Straw (Yellow) 03/12/19 18:44 Urine Clarity Clear 03/12/19 18:44 Urine pH 5.0 (5-8) 03/12/19 18:44 Ur Specific [place] 1.010 (1.005-1.025) 03/12/19 18:44 Urine Protein Trace mg/dL (Negative) H 03/12/19 18:44 Urine Ketones >=160 mg/dL (Negative) H 03/12/19 18:44 Urine Blood Trace-intact (Negative) H 03/12/19 18:44 Urine Nitrite Negative (Negative) 03/12/19 18:44 Urine Bilirubin Small (Negative) H 03/12/19 18:44 Urine Urobilinogen 0.2 EU/dL (Up TO 0.2) 03/12/19 18:44 Ur Leukocyte Esterase Negative (Negative) 03/12/19 18:44 Urine RBC Negative (0-2) 03/12/19 18:44 Urine WBC Negative HPF (0-5) 03/12/19 18:44 Ur Epithelial Cells Negative HPF (Negative) 03/12/19 18:44 Urine Crystals Few amorphous HPF (Negative) 03/12/19 18:44 Urine Bacteria Negative HPF (Negative) 03/12/19 18:44 Urine Casts Negative LPF (Negative) 03/12/19 18:44 Urine Mucus Negative (Negative) 03/12/19 18:44 Urine Other Negative (Negative) 03/12/19 18:44 Ur Culture Indicated? No 03/12/19 18:44 Urine Glucose 500 mg/dL (Negative) H 03/12/19 18:44 XR abdomen: No evidence of an acute abdomen. If there is any further question regarding the possibility of free air, then further assessment with an upright or decubitus projections of the abdomen is suggested. CXR: Question increased pulmonary densities when compared with the previous examination. The possibility of an acute pneumonitis could not be excluded in this patient.
[2019-03-14 12:33] LABS: Anion Gap 11.7 mmol/L (3-11); BUN 4 mg/dL (7-18); CO2 16.3 mmol/L (21.0-32.0); CREATININE 0.97 mg/dL (0.55-1.02); Calcium 8.7 mg/dL (8.5-10.1); Chloride 110 mmol/L (98-107); Estimated GFR 57.28 (mL/min/1.73m2); Glucose 151 mg/dL (70-100); Potassium 3.9 mmol/L (3.5-5.1); Sodium 138 mmol/L (136-145)
--- NOTE | 2019-03-14 13:00 | MERGE_ITS ---
*[facility]* *[facility]* [address] [place] [address] Date of study: 03/14/2019 Transthoracic Echocardiography M-mode, complete 2D, complete spectral Doppler, and color Doppler *STUDY CONCLUSIONS* Summary: 1. Left ventricle: The cavity size was normal. Wall thickness was increased in a pattern of mild LVH. Systolic function was normal. The estimated ejection fraction was 55-60%. Wall motion was normal; there were no regional wall motion abnormalities. 2. Ventricular septum: Septal motion showed paradoxical motion consistent with Bundle Branch Block. The contour showed systolic flattening. These changes are consistent with RV pressure overload. 3. Right ventricle: The cavity size was dilated. Systolic function was low normal. Hypokinesis of the RV apex. *PATIENT PRESENTATION* Height: 149.9cm ((59in) ) S/D Pressure: 117 / 58 Weight: 93.9kg ((206.6lb) ) BSA: 2.03m^2 Test start time: 01:10 PM. Test stop time: 01:50 PM. PERFORMING Unknown PERFORMING [facility] [employer] RT Rodrigo Winslow)(CT), CS CONSULTING Mario Garcia Yelena A REFERRING Kogan, Yelena A *PROCEDURE DATA* Procedure information: The patient was identified by two identifiers. This study was interpreted by [facility]. Pertinent images and digital data are archived for permanent storage and are available for subsequent review. No prior study was available for comparison. Study status: Routine. Transthoracic echocardiography. M-mode, complete 2D, complete spectral Doppler, and color Doppler. A Transthoracic Echocardiogram was performed. Scanning was performed from the parasternal, apical, subcostal, and suprasternal notch acoustic windows. Images were obtained using an [id number] cardiac ultrasound machine. Image quality was adequate. Study completion: The patient tolerated the procedure well. There were no complications. History: PMH: CHF. *CARDIAC ANATOMY* Left ventricle: The cavity size was normal. Wall thickness was increased in a pattern of mild LVH. Systolic function was normal. The estimated ejection fraction was 55-60%. Wall motion was normal; there were no regional wall motion abnormalities. Findings consistent with diastolic dysfunction. There was no evidence of elevated ventricular filling pressure by Doppler parameters. Aortic valve: Probably trileaflet; normal thickness leaflets. Mobility was not restricted. Doppler: Transvalvular velocity was within the normal range. There was no stenosis. There was no significant regurgitation. VTI ratio of LVOT to aortic valve: 0.72. Valve area (VTI): 2.2cm^2. Indexed valve area (VTI): 1.1cm^2/m^2. Peak velocity ratio of LVOT to aortic valve: 0.69. Valve area (Vmax): 2.1cm^2. Indexed valve area (Vmax): 1cm^2/m^2. Mean velocity ratio of LVOT to aortic valve: 0.72. Valve area (Vmean): 2.2cm^2. Indexed valve area (Vmean): 1.1cm^2/m^2. Mean gradient (S): 3mm Hg. Peak gradient (S): 5.7mm Hg. Aorta: Aortic root: The aortic root was normal in size. Ascending aorta: The ascending aorta was normal in size. Mitral valve: Structurally normal valve. Mobility was not restricted. Doppler: Transvalvular velocity was within the normal range. There was no evidence for stenosis. There was trivial regurgitation. Valve area by pressure half-time: 4.9cm^2. Indexed valve area by pressure half-time: 2.4cm^2/m^2. Left atrium: The atrium was normal in size. Right ventricle: The cavity size was dilated. Systolic function was low normal. Hypokinesis of the RV apex. Ventricular septum: Septal motion showed paradoxical motion consistent with Bundle Branch Block. The contour showed systolic flattening. These changes are consistent with RV pressure overload. Pulmonic valve: Poorly visualized. Doppler: Transvalvular velocity was within the normal range. There was no evidence for stenosis. There was no significant regurgitation. Tricuspid valve: Structurally normal valve. Doppler: Transvalvular velocity was within the normal range. There was no evidence for stenosis. There was trivial regurgitation. Pulmonary artery: Poorly visualized. Systolic pressure could not be accurately estimated. Right atrium: The atrium was normal in size. Pericardium: There was no pericardial effusion. Systemic veins: Inferior vena cava: Not visualized. Baseline ECG: Normal sinus rhythm. Measurements Left ventricle Value Reference LV ID, ED, PLAX 4.3 cm 3.5 - 6.0 LV ID, ES, PLAX 3.3 cm 2.1 - 4.0 LV PW thickness, ED, PLAX 1.2 cm LV end-diastolic volume, 1-p A2C 46 ml LV ejection fraction, 1-p A2C 53 % LV end-diastolic volume, 1-p A4C 48 ml LV ejection fraction, 1-p A4C 61 % LV e', lateral 0.068 m/sec LV E/e', lateral 8 LV e', medial 0.048 m/sec LV E/e', medial 12 LV e', average 0.058 m/sec LV E/e', average 10 Ventricular septum Value Reference IVS thickness, ED, PLAX 1.1 cm LVOT Value Reference LVOT ID, A-P 2.0 cm LVOT area 3.1 cm^2 LVOT peak velocity, S 0.83 m/sec LVOT mean velocity, S 0.6 m/sec LVOT VTI, S 14.3 cm LVOT peak gradient, S 2.7 mm Hg LVOT mean gradient, S 1.6 mm Hg Stroke volume (SV), LVOT DP 44 ml Stroke index (SV/bsa), LVOT DP 22 ml/m^2 Aortic valve Value Reference Aortic valve peak velocity, S 1.2 m/sec Aortic valve mean velocity, S 0.83 m/sec Aortic valve VTI, S 20.0 cm Aortic mean gradient, S 3 mm Hg Aortic peak gradient, S 5.7 mm Hg VTI ratio, LVOT/AV 0.72 Aortic valve area, VTI 2.2 cm^2 Velocity ratio, peak, LVOT/AV 0.69 Aortic valve area, peak velocity 2.1 cm^2 Velocity ratio, mean, LVOT/AV 0.72 Aortic valve area, mean velocity 2.2 cm^2 Aortic valve area/bsa, mean velocity 1.1 cm^2/m^2 Aorta Value Reference Aortic root ID, ED 3.5 cm Ascending aorta ID, A-P, S 2.8 cm Left atrium Value Reference LA ID, A-P, ES 2.9 cm LA ID/bsa, A-P 1.4 cm/m^2 <=2.2 LA area, ES, A4C 13.2 cm^2 8.8 - 23.4 LA area, ES, A2C 9 cm^2 LA volume/bsa, ES, 1-p A4C 10 ml/m^2 LA volume, ES, 2-p 21 ml LA volume/bsa, ES, 2-p 10 ml/m^2 LA/aortic root ratio 0.82 Mitral valve Value Reference Mitral E-wave peak velocity 0.57 m/sec Mitral A-wave peak velocity 0.67 m/sec Mitral deceleration time 157 ms 150 - 230 Mitral pressure half-time 45 ms Mitral E/A ratio, peak 0.85 Mitral valve area, PHT, DP 4.9 cm^2 Tricuspid valve Value Reference Tricuspid regurg peak velocity 3.9 m/sec Tricuspid peak RV-RA gradient 59.7 mm Hg Right atrium Value Reference RA area, ES, A4C 14 cm^2 8.3 - 19.5 Legend: (L) and (H) munir values outside specified reference range. I have personally reviewed the images and have reviewed and edited the reported findings. Electronically signed by Felicita Hidalgo 03/14/2019 14:31
[2019-03-14] MEDS: Nystatin POWDER 60 GM JAR TP ×2 (14:54→21:01)
[2019-03-14] MEDS: Lactobacillus Acidophilus CAP 1 CAP PO ×2 (15:00→20:49)
--- NOTE | 2019-03-14 15:48 | CMPROGNOTE_ITS ---
Care Management Progress Note S/O: Elly was reviewed during interdisciplinary rounds meeting, per MD, Elly is worsening clinically and requires close monitoring of fluid balance and DKA status. SIVA spoke with Elly's grandson and previous guardian, Jorge Luis P#[phone]. Jorge Luis reviewed a long history of caring for his grandmother since he was [age]. His thoughts were that Elly would likely refuse intervention once she returns to baseline functioning. He felt the best plan would be to present SNF coordination with the goal of having Elly accept Home Health Services. Jorge Luis shared concerns that Elly has not been attending [facility] services in months and is declining in her home setting. He stated Elly historically is high functioning enough to self-determine though she lacks some frontal functioning skills and struggles with managing her own care and ADLs at home. He referenced her ability to only be able to manage AM, NOON and PM meds, though MDs prescribe meds throughout the day. He reported she is unable to manage a check book or write a complete sentence. He is unable to commit to being her guardian again. He r eports he was her only guardian because it was a voluntary guardianship situation and Elly has not met criteria for involuntary guardianship. CM will work toward increased services at home and await determination of Palliative Care Consult. A: 68 year old female admitted to [facility] 03/12/19 for DKA P: Elly will continue to be closely monitored and treated. Anticipate Elly will meet with Dr. Centeno tomorrow; CM has requested Dr. Centeno speak with Jorge Luis as well. CM will continue to follow and support Elly with considerations.
[2019-03-14 16:35] LABS: Anion Gap 10.4 mmol/L (3-11); BUN 4 mg/dL (7-18); CO2 17.6 mmol/L (21.0-32.0); CREATININE 0.98 mg/dL (0.55-1.02); Calcium 8.6 mg/dL (8.5-10.1); Chloride 110 mmol/L (98-107); Estimated GFR 56.61 (mL/min/1.73m2); Glucose 133 mg/dL (70-100); Sodium 138 mmol/L (136-145)
[2019-03-14] MEDS: Famotidine 20 MG TAB PO (20:49)
[2019-03-15] VITALS (45 sets, daily range): BP systolic 87–133; BP diastolic 39–87; PULSE 73–115; RESP 4–32; TEMP 36.2–37.5; O2SAT 89–100
[2019-03-15] MEDS: metroNIDAZOLE 500 MG/100 ML BAG 100 MG IVPB ×3 (01:44→18:50)
[2019-03-15] MEDS: Albuterol 2.5 MG/3 ML INH SOLN VIAL IH ×2 (05:42→21:58)
[2019-03-15 06:49] LABS: Basophils % 0.7; Eosinophils % 6.2; HCT 35.5 % (36.0-46.0); HGB 11.9 g/dL (12.0-15.5); Lymphocytes % 34.9; Mean Corp. HGB Concentration 33.5 g/dL (32.0-36.0); Mean Corpuscular Volume 89.4 fL (80-95); Mean Platelet Volume 10.8 fL (8.0-11.0); Monocytes % 6.5; Neutrophils % 51.5; Platelet Count 244 x1000/uL (130-400); RBC 3.97 m/cumm (4.00-5.20); RBC Distribution Width 14.6 % (11.7-14.6)
[2019-03-15 06:50] LABS: Abs Immature Grans 0.02 k/cumm (0.0-0.09); Absolute Basophil Count 0.06 k/cumm (0.0-0.2); Absolute Eosinophil Count 0.53 k/cumm (0.0-0.7); Absolute Monocyte Count 0.56 k/cumm (0.11-0.7); Absolute Neutrophil Count 4.43 k/cumm (1.2-6.7); Immature Grans % 0.2
[2019-03-15 07:00] LABS: Anion Gap 10.7 mmol/L (3-11); BUN 2 mg/dL (7-18); CO2 18.3 mmol/L (21.0-32.0); CREATININE 0.89 mg/dL (0.55-1.02); Calcium 8.7 mg/dL (8.5-10.1); Chloride 108 mmol/L (98-107); Glucose 171 mg/dL (70-100); Magnesium 1.6 mg/dL (1.8-2.4); Potassium 3.8 mmol/L (3.5-5.1); Sodium 137 mmol/L (136-145)
[2019-03-15] MEDS: Budesonide/Formoterol 160/4.5 6 GM 60 PUFF INH IH ×2 (07:23→19:46)
[2019-03-15 08:11] LABS: HCO3 (Venous) 18 mmol/L (22-28); O2 Sat (Venous) 81 % (70-80); TCO2 (Venous) 17 mmol/L (22-29); pCO2 (Venous) 33 mm/Hg (34-47); pH (Venous) 7.34 (7.32-7.43); pO2 (Venous) 41 mm/Hg (28-44)
[2019-03-15 08:16] LABS: Lactate-non-spesis 2.2 mmol/l (0.6-1.4)
--- NOTE | 2019-03-15 08:36 | PGE_ITS ---
Date of Service Date of service: 03/15/19 Time of Service: 08:20 Assessment and Plan (1) DKA (diabetic ketoacidoses): Current visit: Yes Status: Acute in setting of uncontrolled type 2 DM (insulin dependent). Remains on insulin gtt - as the anion gap has closed (10.7), we will d/c insulin gtt today and transition her to basal bolus insulin. Her pH is 7.34 on the VBG - and I feel like there are other components to her mild metabolic acidosis, specifically lactic acidosis, and probably a little bit of starvation ketoacidosis at this point. The lactic acidosis is possibly diabetic in origin, but also due to dehydration. She is getting a bolus of NS this morning. Continue to monitor chemistries/replete lytes. Treat colitis - C. Diff negative. *Per son who contacted the ICU, the patient has difficulty administering her own insulin. Placement will have to be considered. (2) Acute colitis: Current visit: Yes Status: Acute C. Diff negative. Clinically improving. PO vanco d/c'ed; cipro re-initiated; flagyl continued. Plan is to advance diet today. Hemoccult positivity initially is expected - this will be repeated today - could possibly start chemical DVT ppx. (3) CHF (congestive heart failure): Current visit: Yes Status: Chronic Now she appears dry. EF 55-60%, but does have evidence of RV dysfunction, pulmonary hypertension, LVH, diastolic dysfunction - all of these are likely contributing to yesterday's findings. Diuresis d/c'ed. To clarify, both diuresis and D5 were necessary yetserday (diuresis due to fluid overload; D5 fluids due to DKA and lower BG's while on insulin gtt). She will need a sleep study as outpatient if she has not had one. Overnight, she did require O2 last night (minimal - 2L). (4) Chronic respiratory failure with hypoxia: Current visit: No Status: Chronic O2 reinitiated last night. As above - needs a sleep study. (5) COPD (chronic obstructive pulmonary disease): Current visit: No Status: Chronic Rhonchorous today - Nebs ordered. There was a question of acute pneumonitis on CXR yesterday - will repeat today. May require steroids/change of abx. (6) Pulmonary hypertension: Current visit: Yes Status: Chronic I am not sure if the patient has ever had a sleep study - I do not see this in our computer system. RODRIGO is very high on differential. She, however, also has COPD and interstitial lung disease, both of which could be contributors. Monitor volume status/oxygenation. (7) Interstitial lung disease: Current visit: No Status: Chronic As above (8) Gastroesophageal reflux disease without esophagitis: Current visit: No Status: Chronic Continue carafate. Ok to go back to protonix as there is no evidence of C. Diff. (9) Essential hypertension: Current visit: No Status: Chronic Not on therapy at this time - monitor (10) Cognitive impairment: Current visit: No Status: Chronic Certainly a concern for medication safety. Palliative care is consulted. Placement is being considered. (11) DVT prophylaxis: Current visit: No Status: Acute Teds + SCD's (chemical dvt prophylaxis is contraindicated in setting of hem + stools) (12) Discharge planning issues: Current visit: Yes Status: Acute May be able to transfer out of the ICU once off of insulin gtt. Full code. Palliative care consulted A total of 35 minutes were spent on patient today Subjective Interval history since last seen: Ms Pina states her abdomen no longer hurts. She is hungry. She is not nauseated. She complains of dizziness laying in bed. Also reports a mild frontal headache. Denies chest pain, shortness of breath. Has had nonproductive cough. Remains on the insulin gtt, being weaned off. Exam Narrative Exam Narrative: General: Obese middle-aged female, more animated and smiling today HEENT: EOMI, dry MM Heart: RRR, no m/r/g, mild tachycardia Lungs: quiet rhonchi on expiration B GI: abdomen is soft, minimally tender, nondistended Extremities: trace edema BLE's, no c/c; 1+ pedal pulses B Objective Objective Clinical Data: Abnormal lab results 03/14/19 03/14/19 03/14/19 Range/Units 06:25 08:00 12:00 RBC (4.00-5.20) m/cumm Hgb (12.0-15.5) g/dL Hct (36.0-46.0) % VBG pCO2 (34-47) mm/Hg VBG HCO3 (22-28) mmol/L VBG Total CO2 (22-29) mmol/L VBG O2 Saturation (70-80) % Chloride 112 H (98-107) mmol/L Carbon Dioxide 17.0 L (21.0-32.0) mmol/L Anion Gap 13.0 H (3-11) mmol/L BUN 6 L (7-18) mg/dL Creatinine 1.03 H (0.55-1.02) mg/dL Glucose 123 H (70-100) mg/dL Lactate 1.8 H 2.1 H (0.6-1.4) mmol/l Calcium 8.1 L (8.5-10.1) mg/dL Magnesium 1.4 L (1.8-2.4) mg/dL 03/14/19 03/14/19 03/15/19 Range/Units 12:05 16:11 06:10 RBC (4.00-5.20) m/cumm Hgb (12.0-15.5) g/dL Hct (36.0-46.0) % VBG pCO2 (34-47) mm/Hg VBG HCO3 (22-28) mmol/L VBG Total CO2 (22-29) mmol/L VBG O2 Saturation (70-80) % Chloride 110 H 110 H 108 H (98-107) mmol/L Carbon Dioxide 16.3 L 17.6 L 18.3 L (21.0-32.0) mmol/L Anion Gap 11.7 H (3-11) mmol/L BUN 4 L 4 L 2 L (7-18) mg/dL Creatinine (0.55-1.02) mg/dL Glucose 151 H 133 H 171 H (70-100) mg/dL Lactate (0.6-1.4) mmol/l Calcium (8.5-10.1) mg/dL Magnesium 1.6 L (1.8-2.4) mg/dL 03/15/19 03/15/19 03/15/19 Range/Units 06:10 08:06 08:06 RBC 3.97 L (4.00-5.20) m/cumm Hgb 11.9 L (12.0-15.5) g/dL Hct 35.5 L (36.0-46.0) % VBG pCO2 33 L (34-47) mm/Hg VBG HCO3 18 L (22-28) mmol/L VBG Total CO2 17 L (22-29) mmol/L VBG O2 Saturation 81 H (70-80) % Chloride (98-107) mmol/L Carbon Dioxide (21.0-32.0) mmol/L Anion Gap (3-11) mmol/L BUN (7-18) mg/dL Creatinine (0.55-1.02) mg/dL Glucose (70-100) mg/dL Lactate 2.2 H (0.6-1.4) mmol/l Calcium (8.5-10.1) mg/dL Magnesium (1.8-2.4) mg/dL Vital Signs Temperature 36.6 C 03/15/19 03:00 Temperature Source Temporal Artery Scan 03/15/19 03:00 Pulse 96 H 03/15/19 06:01 Pulse 113 H 03/15/19 06:01 Respiratory Rate 28 H 03/15/19 06:01 Respiratory Effort Non-Labored 03/15/19 03:00 Respiratory Depth Normal 03/15/19 03:00 Respiratory Pattern Tachypnea 03/15/19 03:00 Blood Pressure 101/45 L 03/15/19 06:01 Blood Pressure Mean 57 03/15/19 06:01 Blood Pressure Position Sitting 03/14/19 12:10 Pulse Oximetry 96 03/15/19 06:01 Oxygen Delivery Method Room Air 03/14/19 23:29 Oxygen Flow Rate 0 03/14/19 23:29 Pain Level 0 03/15/19 03:00 Intake & Output 03/14/19 03/14/19 03/15/19 11:59 23:59 11:59 Intake Total 1789.833 / 3905.668 2115.835 / 3905.668 1371.665 / 1371.665 Output Total 1800 / 3500 1700 / 3500 800 / 800 Balance -10.167 / 405.668 415.835 / 405.668 571.665 / 571.665 Weight 89 kg 88.5 kg Intake: IV 1239.833 / 2615.668 1375.835 / 2615.668 1121.665 / 1121.665 Oral 550 / 1290 740 / 1290 250 / 250 Output: Urine 1800 / 3500 1700 / 3500 800 / 800 Other: Urine Color Yellow Yellow Yellow Urine Appearance Clear Cloudy Sediment Sediment Comment pt has indwellig huertas catheter but has hx of inconitnence Huertas in place, draining cloudy yellow urine. Urine starting to clear up from previous days. Laboratory Results WBC 8.60 k/cumm (4.4-10.8) D 03/15/19 06:10 RBC 3.97 m/cumm (4.00-5.20) L 03/15/19 06:10 Hgb 11.9 g/dL (12.0-15.5) L 03/15/19 06:10 Hct 35.5 % (36.0-46.0) L 03/15/19 06:10 MCV 89.4 fL (80-95) 03/15/19 06:10 MCH 30.0 pg (27.0-33.0) 03/15/19 06:10 MCHC 33.5 g/dL (32.0-36.0) 03/15/19 06:10 RDW 14.6 % (11.7-14.6) 03/15/19 06:10 Plt Count 244 x1000/uL (130-400) 03/15/19 06:10 MPV 10.8 fL (8.0-11.0) 03/15/19 06:10 Immature Gran % 0.2 03/15/19 06:10 Neutrophils % 51.5 03/15/19 06:10 Lymphocytes % 34.9 03/15/19 06:10 Monocytes % 6.5 03/15/19 06:10 Eosinophils % 6.2 03/15/19 06:10 Basophils % 0.7 03/15/19 06:10 Absolute Neutrophils 4.43 k/cumm (1.2-6.7) 03/15/19 06:10 Absolute Lymphocytes 3.00 k/cumm (1.2-3.4) 03/15/19 06:10 Absolute Monocytes 0.56 k/cumm (0.11-0.7) 03/15/19 06:10 Absolute Eosinophils 0.53 k/cumm (0.0-0.7) 03/15/19 06:10 Absolute Basophils 0.06 k/cumm (0.0-0.2) 03/15/19 06:10 Sample Site Right radial 03/13/19 09:57 pCO2 33 mmHg (34-47) L 03/13/19 09:57 pO2 93 mmHg (83-108) 03/13/19 09:57 O2 Saturation 98 % (94-98) 03/13/19 09:57 ABG pH 7.33 (7.35-7.45) L 03/13/19 09:57 ABG HCO3 17 mmol/L (22-28) L 03/13/19 09:57 ABG Total CO2 16 mmol/L (22-29) L 03/13/19 09:57 ABG Base Excess -8.8 mmol/L (-3-3) L 03/13/19 09:57 VBG pH 7.34 (7.32-7.43) 03/15/19 08:06 VBG pCO2 33 mm/Hg (34-47) L 03/15/19 08:06 VBG pO2 41 mm/Hg (28-44) 03/15/19 08:06 VBG HCO3 18 mmol/L (22-28) L 03/15/19 08:06 VBG Total CO2 17 mmol/L (22-29) L 03/15/19 08:06 VBG O2 Saturation 81 % (70-80) H 03/15/19 08:06 VBG Base Excess mmol/L (-3-3) 03/15/19 08:06 Oxygen Liter Flow 2 L 03/13/19 09:57 FiO2 Nasal cannula % 03/13/19 09:57 Sodium 137 mmol/L (136-145) 03/15/19 06:10 Potassium 3.8 mmol/L (3.5-5.1) 03/15/19 06:10 Chloride 108 mmol/L (98-107) H 03/15/19 06:10 Carbon Dioxide 18.3 mmol/L (21.0-32.0) L 03/15/19 06:10 Anion Gap 10.7 mmol/L (3-11) 03/15/19 06:10 BUN 2 mg/dL (7-18) L 03/15/19 06:10 Creatinine 0.89 mg/dL (0.55-1.02) 03/15/19 06:10 Estimated GFR/1.73 m2 >= 60.00 (mL/min/1.73m2) 03/15/19 06:10 Glucose 171 mg/dL (70-100) H 03/15/19 06:10 Lactate 2.2 mmol/l (0.6-1.4) H 03/15/19 08:06 Calcium 8.7 mg/dL (8.5-10.1) 03/15/19 06:10 Magnesium 1.6 mg/dL (1.8-2.4) L 03/15/19 06:10 Total Bilirubin 0.9 mg/dL (0.2-1.0) 03/12/19 17:38 AST 18 U/L (15-37) 03/12/19 17:38 ALT 22 U/L (12-78) 03/12/19 17:38 Alkaline Phosphatase 132 U/L (46-116) H 03/12/19 17:38 Troponin I 0.03 ng/mL (0.00-0.06) 03/13/19 06:32 Total Protein 7.7 g/dL (6.4-8.2) 03/12/19 17:38 Albumin 3.3 g/dL (3.4-5.0) L 03/12/19 17:38 TSH 0.80 uIU/mL (0.358-3.74) 03/14/19 06:25 Thyroxine (T4) 5.3 ug/dL (4.5-12.5) 03/14/19 06:25 Urine Color Straw (Yellow) 03/12/19 18:44 Urine Clarity Clear 03/12/19 18:44 Urine pH 5.0 (5-8) 03/12/19 18:44 Ur Specific Maxwell 1.010 (1.005-1.025) 03/12/19 18:44 Urine Protein Trace mg/dL (Negative) H 03/12/19 18:44 Urine Ketones >=160 mg/dL (Negative) H 03/12/19 18:44 Urine Blood Trace-intact (Negative) H 03/12/19 18:44 Urine Nitrite Negative (Negative) 03/12/19 18:44 Urine Bilirubin Small (Negative) H 03/12/19 18:44 Urine Urobilinogen 0.2 EU/dL (Up TO 0.2) 03/12/19 18:44 Ur Leukocyte Esterase Negative (Negative) 03/12/19 18:44 Urine RBC Negative (0-2) 03/12/19 18:44 Urine WBC Negative HPF (0-5) 03/12/19 18:44 Ur Epithelial Cells Negative HPF (Negative) 03/12/19 18:44 Urine Crystals Few amorphous HPF (Negative) 03/12/19 18:44 Urine Bacteria Negative HPF (Negative) 03/12/19 18:44 Urine Casts Negative LPF (Negative) 03/12/19 18:44 Urine Mucus Negative (Negative) 03/12/19 18:44 Urine Other Negative (Negative) 03/12/19 18:44 Ur Culture Indicated? No 03/12/19 18:44 Urine Glucose 500 mg/dL (Negative) H 03/12/19 18:44 Stl C.difficile Tox PCR Negative 03/13/19 11:45 C.difficile Tox Source Feces 03/13/19 11:45 Echo 03/14/19: 1. Left ventricle: The cavity size was normal. Wall thickness was increased in a pattern of mild LVH. Systolic function was normal. The estimated ejection fraction was 55-60%. Wall motion was normal; there were no regional wall motion abnormalities. 2. Ventricular septum: Septal motion showed paradoxical motion consistent with Bundle Branch Block. The contour showed systolic flattening. These changes are consistent with RV pressure overload. 3. Right ventricle: The cavity size was dilated. Systolic function was low normal. Hypokinesis of the RV apex.
[2019-03-15] MEDS: Sucralfate 1 GM TAB PO ×4 (08:38→21:51)
[2019-03-15] MEDS: Lactobacillus Acidophilus CAP 1 CAP PO ×3 (08:38→19:46)
[2019-03-15] MEDS: Acetaminophen 500 MG TAB 1000 MG PO (08:39)
[2019-03-15] MEDS: Insulin Glargine 300 UNITS/3 ML PEN 50 UNITS SC (08:39)
[2019-03-15] MEDS: MAGNESIUM SULFATE 2 GM/50 ML BAG IVPB (08:39)
[2019-03-15] MEDS: Famotidine 20 MG TAB PO (08:39)
[2019-03-15] MEDS: Nystatin POWDER 60 GM JAR TP ×3 (08:40→19:53)
--- NOTE | 2019-03-15 09:04 | W.PALLCONSUL ---
Date of service: 03/15/19 History of Present Illness Chief Complaint: help with GOC and CODE Status discussion Narrative: Elly is a chronically ill, morbidly obese woman who appears at least a decade older than her stated age. I was asked to see her in the ICU by Dr. Dyer who wanted me to confirm that Elly's decision to be a full code was a fully informed decision. 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 BMI is in morbidly obese range was noted to have episodes of apnea while sleeping not sure if she is willing to wear CPAP; thinking about sleep study (2) CHF (congestive heart failure): Current visit: Yes Status: Chronic ECHO done hard to interpret by cardiology given her body habitus did show RV strain and dilation has right-sided heart failure not mobile enough to participate in cardiac rehab weight loss and increased activity would be best for her health (3) Chronic respiratory failure with hypoxia: Current visit: No Status: Chronic not a new problem will worsen with time (4) Palliative care patient: Current visit: Yes Status: Chronic suspect that we are beginning to see a pattern of multiple hospital admissions this is her second admit in 2 months will continue to follow her (5) Counseling regarding advance directives and goals of care: Current visit: Yes Status: Acute Long detailed discussion of what a code would entail, her low chances of surviving it, the pain she would experience, etc. Nonetheless, Elly is QUITE clear that she wants to remain FULL CODE. She filled out COLST with her wishes. She wants to be kept alive until her daughter, Tricia Clarke has a chance to arrive from [place] to say her good-byes. She says she has discussed this with her family and they support her in this plan. She says even if she has no neurological function, she wants to be kept alive. She does live by herself in [facility] so it is possible that she may not be discovered in time to resuscitate her. (6) DKA (diabetic ketoacidoses): Current visit: Yes Status: Acute Said she stopped her insulin when sick because she wasn't eating and was too weak to get up to take her meds. She is willing to go to a Rehab after this hospitalization for 2-3 weeks ONLY. Wants to return to her apt after that. Review of Systems Constitutional Reports daytime sleepiness, Reports difficulty sleeping, Reports fatigue, Reports snoring, Reports stops breathing during sleep and Reports weakness Eyes Reports blurry vision, Reports dry eyes, Reports loss of vision and Reports requires corrective lenses ENT Reports change in voice, Reports dizziness, Reports dry mouth and Reports disequilibrium Cardiovascular Reports edema, Reports leg edema, Reports lightheadedness, Reports palpitations, Reports dyspnea, Reports dyspnea on exertion and Reports paroxysmal nocturnal dyspnea Respiratory Reports dyspnea, Reports dyspnea on exertion, Reports snoring and Reports wheezing Gastrointestinal Reports bloating and Reports constipation Genitourinary Reports post void dribbling and Reports urinary incontinence Musculoskeletal Reports abnormal gait, Reports back pain, Reports myalgias, Reports atrophy, Reports arthralgias, Reports limited range of motion and Reports stiffness Integumentary/Breasts Reports dry skin, Reports pruritus and Reports rash Neurologic Reports abnormal gait, Reports dizziness, Reports loss of vision, Reports other visual disturbances, Reports disequilibrium and Reports weakness Psychiatric Reports difficulty concentrating Endocrine Reports fatigue, Reports heat intolerance, Reports polydipsia and Reports palpitations Hematologic/Lymphatic Reports easy bruising Allergic/Immunologic Reports wheezing [facility] Medical History Internal derangement of right knee (Chronic) Back pain (Chronic) Asthma (Chronic) Osteoporosis (Chronic 03/16/18) Neck pain (Chronic 03/16/18) Migraine (Chronic 04/03/14) Long-term use of high-risk medication (Chronic 03/16/18) Interstitial lung disease (Chronic 03/16/18) History of shingles (Resolved 03/16/18) Gastroesophageal reflux disease without esophagitis (Chronic 03/16/18) Essential hypertension (Chronic 07/17/13) Edema (Chronic 03/16/18) Dyspnea (Chronic 03/16/18) Depressive disorder (Chronic) Cubital tunnel syndrome (Resolved 03/16/18) Cognitive impairment (Chronic 03/16/18) Chronic constipation (Chronic 03/16/18) Anxiety (Chronic 03/16/18) Acute gastroenteritis (Resolved 03/16/18) Umbilical hernia (Chronic) Type II diabetes mellitus, uncontrolled (Chronic) Total urinary incontinence (Chronic) Shoulder pain (Chronic) Post herpetic neuralgia (Chronic 05/25/18) Peripheral neuralgia (Chronic) 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) Hyperlipemia (Acute) Asthma (Chronic) Insulin dependent diabetes mellitus (Chronic) Surgical History Appendectomy Arthroscopy, Shoulder Bilateral salpingectomy with oophorectomy section Cholecystectomy Ligation of fallopian tube Thoracoscopic (R)Lung Bx (02/12/18) Family History Mother Diabetes Essential hypertension CHF (congestive heart failure) Heart disease Dementia Father Diabetes Essential hypertension CAD (coronary artery disease) Heart disease Hyperlipidemia Stroke Sister Diabetes Personal history of malignant neoplasm Asthma Lung cancer Brother Diabetes Essential hypertension Personal history of malignant neoplasm Hyperlipidemia Asthma Mesothelioma Brother Pulmonary embolus with infarction Daughter No problems noted. Son No problems noted. Social History Smoking/Tobacco Use Status: Never Alcohol Intake: never Details: monthly or less Drug use: Never Substance use type: does not use Adopted: No Caregiver/Support person: No Foster care: No Household members: none Housing: apartment Number of Children: 2 number of grandchildren: 5 Communication Needs: Hard of Hearing and Corrective Lenses Education Level: middle school Do you need help understanding health information?: Always current occupation: disabled Pets and animals: No What is your relationship status?: How often do you talk on the phone with friends or family?: twice per week How often do you get together with friends or relatives?: once per week Panel score (0-1 are the most socially isolated patients): 1 What type of physical activity do you participate in: none and sedentary lifestyle Duration: 15-30 minutes/day Frequency: daily Special devin needs: No Agree to transfusion: Yes Seatbelt use: always Drive intox or ride w/intox bus driver: No Water heater temp set <120 deg: Yes Working smoke detector in home: Yes Fire extinguisher in home: Yes Carbon monox detector in home: Yes Do you feel safe at home: Yes Do you feel safe in your relationship?: Yes Additional Social history: Grandson Jorge Luis used to live with her. His phone # is [phone]. Daughter Caridad lives in [place]. Son Himanshu lives in [facility], not as close to him. Gets together with brother Brian regularly who takes her shopping and goes for drives. Exam Const General: cooperative, no acute distress and ill appearing Nutritional Appearance: obese Orientation: alert, awake and oriented x3 HENMT Head: normocephalic and atraumatic Ears: hearing grossly impaired General nose exam: external nose normal Face and sinus: dry mucous membranes Mouth: malodorous breath Eyes Conjunctivae: conjunctivae normal Sclera: sclerae normal Neck Neck: no lymphadenopathy and no JVD Resp Effort & Inspection: able to speak in complete sentences, audible wheezes (but clears with cough) and cough Auscultation: clear to auscultation bilaterally and diminished lung sounds Cardio Rate: regular rate Rhythm: regular rhythm Heart Sounds: S1 normal and S2 normal GI Inspection: obesity Palpation: soft Auscultation: normal bowel sounds Skin General skin exam: dry skin, ecchymosis and pallor Hair: brittle and general thinning Neuro General: alert, awake and oriented x3 Cognition: abnormal cognition (simple in her thought processes, but clear about her wishes) Gait: gait assisted (in bed during my exam, was in ICU) Method: other Motor: strength abnormal Extrem General: edema and muscle atrophy Psych Appearance: grossly normal Mental Status: mental status grossly normal Speech and Movement: delayed speech and slowed movement Mood: congruent mood Affect: normal affect Attitude: cooperative Thought Process: impoverished Insight: fair Judgment: limited Results Last Vital Signs Temp 99.3 F 03/16/19 07:10 Pulse 103 H 03/16/19 07:10 Resp 18 03/16/19 07:10 BP 106/67 03/16/19 07:10 Pulse Ox 96 03/16/19 07:10 Labs : 03/16/19 06:20 03/16/19 06:20 Laboratory Results - last 24 hr 03/16/19 03/16/19 06:20 06:20 WBC 7.61 RBC 4.01 Hgb 11.8 L Hct 36.2 MCV 90.3 MCH 29.4 MCHC 32.6 RDW 15.0 H Plt Count 272 MPV 10.9 Immature Gran % 0.4 Neutrophils % 60.0 Lymphocytes % 24.3 Monocytes % 7.8 Eosinophils % 6.7 Basophils % 0.8 Absolute Neutrophils 4.57 Absolute Lymphocytes 1.85 Absolute Monocytes 0.59 Absolute Eosinophils 0.51 Absolute Basophils 0.06 Sodium 138 Potassium 3.7 Chloride 108 H Carbon Dioxide 18.9 L Anion Gap 11.1 H BUN 3 L Creatinine 0.88 Estimated GFR/1.73 m2 >= 60.00 Glucose 201 H Calcium 8.6 Magnesium 1.7 L
--- NOTE | 2019-03-15 09:47 | PDOC.CMPRO ---
- If Service Date Differs Date of service: 03/15/19 Time of Service: 09:47 Care Management Progress Note S/O: Elly was reviewed during interdisciplinary rounds meeting, per MD, Elly is requesting that she be discharged to [facility] when she is medically ready. She states that she would like to spend a few weeks over at the rehab prior to returning home with home health services. She states her goal is pool therapy when she is fully recovered. Elly has requested a referral to [facility] which CM completed. [facility] is reviewing referral for a possible admission on Monday. Elly continues to receive care in the ICU her diet has been advanced to clears. She does have a palliative care consult which team may have to follow up on as outpatient. A: 68 year old female admitted to [facility] 03/12/19 for DKA P: No change in Elly's status today anticipate she will be ready for discharge in the next 48 hours. She will not be able to transition to SNF level of care over the weekend which will delay her discharge. Anticipate she will transport to [facility] once there is a bed offer via W/C van.
--- NOTE | 2019-03-15 09:53 | CMPROGNOTE_ITS ---
- If Service Date Differs Date of service: 03/15/19 Time of Service: 09:47 Care Management Progress Note S/O: Elly was reviewed during interdisciplinary rounds meeting, per MD, Elly is requesting that she be discharged to [facility] when she is medically ready. She states that she would like to spend a few weeks over at the rehab prior to returning home with home health services. She states her goal is pool therapy when she is fully recovered. Elly has requested a referral to [facility] which CM completed. [facility] is reviewing referral for a possible admission on Monday. Elly continues to receive care in the ICU her diet has been advanced to clears. She does have a palliative care consult which team may have to follow up on as outpatient. A: 68 year old female admitted to [facility] 03/12/19 for DKA P: No change in Elly's status today anticipate she will be ready for discharge in the next 48 hours. She will not be able to transition to SNF level of care over the weekend which will delay her discharge. Anticipate she will transport to [facility] once there is a bed offer via W/C van.
[2019-03-15] MEDS: CIPROFLOXACIN 200 MG/100 ML BAG 100 MG IVPB ×2 (10:27→21:52)
[2019-03-15] MEDS: Normal Saline 1,000 ML 1000 ML IV (10:29)
--- NOTE | 2019-03-15 11:08 | DI.RAD_ITS ---
SYMPTOMS/DIAGNOSIS: ? PNEUMONITIS, CHRONIC RESPIRATORY FAILURE PORTABLE CHEST: Comparison is made with [id number]. The cardiac and mediastinal contours are unchanged. Again there are low lung volumes and evidence of underlying chronic interstitial changes. No superimposed infiltrate, effusion or pulmonary edema is seen. IMPRESSION: No acute abnormality.
[2019-03-15] MEDS: Lactated Ringers 1,000 ML 100 ML IV (11:45)
[2019-03-15] MEDS: Insulin Aspart 300 UNITS/3 ML PEN 10 UNITS SC ×2 (11:55→18:58)
[2019-03-15] MEDS: Insulin Aspart 300 UNITS/3 ML PEN SC ×2 (11:56→18:58)
--- NOTE | 2019-03-15 13:48 | OT.INIE ---
Occupational Therapy Notes Inpatient Occupational Therapy Evaluation Date: 03/15/19 Referring Doctor:Randi Dyer MD OT Orders: Eval and treat Precautions: fall, standard PATIENT PROFILE/ADMITTING DIAGNOSIS: Pt is a 68 year old female admitted to [facility] through the ER for DKA (diabetic ketoacidoses), Vomiting, Elevated troponin. Past Medical History: Internal derangement of right knee (Acute) Back pain (Chronic) Asthma (Chronic) Osteoporosis (Chronic 03/16/18) Neck pain (Chronic 03/16/18) Migraine (Chronic 04/03/14) Long-term use of high-risk medication (Chronic 03/16/18) Interstitial lung disease (Chronic 03/16/18) History of shingles (Resolved 03/16/18) Gastroesophageal reflux disease without esophagitis (Chronic 03/16/18) Essential hypertension (Chronic 07/17/13) Edema (Chronic 03/16/18) Dyspnea (Chronic 03/16/18) Depressive disorder (Chronic) Cubital tunnel syndrome (Resolved 03/16/18) Cognitive impairment (Chronic 03/16/18) Chronic constipation (Chronic 03/16/18) Anxiety (Chronic 03/16/18) Acute gastroenteritis (Resolved 03/16/18) Umbilical hernia (Chronic) Type II diabetes mellitus, uncontrolled (Chronic) Total urinary incontinence (Chronic) Shoulder pain (Chronic) Post herpetic neuralgia (Chronic 03/16/18) Peripheral neuralgia (Chronic) 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 She is (I) with all ADLs/IADLs at her baseline level of function. She has a tub shower which is difficulty for her at times to perform her bathing routine. She notes that she did have HH nursing, OT and PT in her home which has since discharged her. A neighbor helps with her configuration management administrator as she is unable to do this on her own. She gets food from meals on wheels. She notes that she has been unable to go grocery shopping for a month. She states that she gets rides from [employer]. She was going to outpatient Physical Therapy and reports that she would like to return to pool therapy. Equipment owned/DME: [employer] which she reports she has not been to in a month, [facility], wheelchair, FWW, Home O2 which she is at 2L O2 at all times. SUBJECTIVE: Pt was lying in bed when OT arrived. She is agreeable to consult however states that she is very tired today and does not feel up to performing any ADLs today. OBJECTIVE: General Observation: Tired and answers questions appropriately, barking cough Mental Status: A&Ox3 Pain: no c/o pain ROM: RUE WNL L UE WNL STRENGTH: RUE 4-/5 throughout globally, director of exhibit development is weak LUE 4/5 throughout globally, director of exhibit development is weak FUNCTIONAL MOBILITY/ADLS: NT as pt denies due to being tired and not sleeping well last night.She was able to functionally perform crossing of midline (B), functional AROM of (B) UE, she can touch behind her head and reach down towards her socks. She has good grasp and release with weak director of exhibit development. She presents with decreased functional activity tolerance. BALANCE: Static Sitting- Normal Dynamic Sitting- Normal INFORMED CONSENT/EDUCATION: Pt instructed in purpose of OT Consult and plan of care. ASSESSMENT: Patient is a 68-year-old female referred to occupational therapy services with diagnosis of DKA (diabetic ketoacidoses), Vomiting, Elevated troponin. Patient presents with clinical signs and symptoms consistent with dx, as demonstrated by the following impairment level findings/ functional limitations: decreased functional activity tolerance, decreased performance of ADLs at baseline level of function, decreased functional mobility. Pt states to OT that she would like to go to SNF for short term stay to increase her ability to perform ADLs/functional mobility with increased (I). OT does agree with this based on pts current level of function. Patient is assessed as a Moderate 53315 complexity based on the following: History: See Above Examination: See Above Presentation: Evolving Decision Making: Moderate based on examination GOALS Goals x1 week 1. Transfers (I) 2. Dressing In sitting (I) with UE/LE dressing 3. Bathing Standing at sink (I) with UE/LE bathing 4. Toileting (I) on toilet 5. Eating (I) 6. Grooming (I) standing at sink for brushing teeth and hair PLAN OF CARE/TREATMENT PLAN: 1x/day, 5 days/ week x 1week Initiate Occupational Therapy Services for bathing, dressing, grooming, toileting, eating, transfer training. DISCHARGE RECOMMENDATIONS SNF when medically cleared per MD. TREATMENT TIME/MINUTES/CODES [id number], 15 minutes (11:30) Trinidad Philip OTR/[facility]
--- NOTE | 2019-03-15 14:09 | W.INDIABCONS ---
Date of service: 03/15/19 Time of Service: 14:09 Diabetes Inpatient Consult DESCRIPTION/ASSESSMENT: Appreciate diabetes consult for Elly Pina who I have seen recently for inpatient visit and distance outpatient DSME support. A1c 3 months ago 11.1. BMI 39 GFR 57 Magnesium 1.4 She is here with DKA with blood sugar at admission 600s. Blood sugars have corrected with insulin drip now for 2 days 86-163. Diabetes Flowsheet indicates eating 100% of offered broth until noon today at 25% of clear liquid tray when blood sugar had already increased to 209mg/dl. Currently managed with her usual 70u Lantus and 10u Novolog for food with moderate insulin correction. At home she takes 70u Lantus once a day, Lispro on a scale, and Linagliptin. She does have knowledge of diabetes self management but has not always been able to correct her hyperglycemia. INTERVENTION: Need to follow current insulin and food regimen to determine management at this time. No intervention at this time. PLAN: Will follow blood sugars and visit her when she feels better. Time Spent in Nutritional Counseling and Treatment: 0 minutes face to face
--- NOTE | 2019-03-15 14:33 | PT.INIE ---
Date of service: 03/15/19 Time of Service: 14:10 PT Notes Inpatient Physical Therapy Evaluation Date: 03/15/19 Referring Doctor: Randi Dyer MD PT Orders: PT CONSULT: Eval and Treat Precautions: Standard, fall risk Patient Profile/Admitting Diagnosis: 68 year old female admitted through ER with DKA, due to poorly managedDM Type II. She has been bid ridden x 3 days during her medical treatment, now ready for attempt of mobility. PMHX: Past Medical History: Internal derangement of right knee (Acute) Back pain (Chronic) Asthma (Chronic) Osteoporosis (Chronic 03/16/18) Neck pain (Chronic 03/16/18) Migraine (Chronic 04/03/14) Long-term use of high-risk medication (Chronic 03/16/18) Interstitial lung disease (Chronic 03/16/18) History of shingles (Resolved 03/16/18) Gastroesophageal reflux disease without esophagitis (Chronic 03/16/18) Essential hypertension (Chronic 07/17/13) Edema (Chronic 03/16/18) Dyspnea (Chronic 03/16/18) Depressive disorder (Chronic) Cubital tunnel syndrome (Resolved 03/16/18) Cognitive impairment (Chronic 03/16/18) Chronic constipation (Chronic 03/16/18) Anxiety (Chronic 03/16/18) Acute gastroenteritis (Resolved 03/16/18) Umbilical hernia (Chronic) Type II diabetes mellitus, uncontrolled (Chronic) Total urinary incontinence (Chronic) Shoulder pain (Chronic) Post herpetic neuralgia (Chronic 03/16/18) Peripheral neuralgia (Chronic) 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 She is (I) with all ADLs/IADLs at her baseline level of function. She has a tub shower which is difficulty for her at times to perform her bathing routine. She wishes for a shower chair. She notes that she did have HH nursing, OT and PT in her home which has since discharged her. A neighbor helps with her inspector brake lining as she is unable to do this on her own. She gets food from meals on wheels. She notes that she has been unable to go grocery shopping for a month. She states that she gets rides from [employer]. She was going to outpatient Physical Therapy and reports that she would like to return to pool therapy. Equipment owned/DME: [employer] which she reports she has not been to in a month, [facility], wheelchair, FWW, Home O2 which she is at 2L O2 at all times. Grab bars. Would like a shower chair. Current Functional Limitations: Supervision with bed mobility, dependent on HOB elevation, CG with sit to stand, unable to walk. Subjective: Reports pain in right lower abdomen. Hoping to go to rehab for a few weeks, to get stronger prior to returning home. She would like to go to outpatient for aquatic therapy when able. Admits to a sedentary life style only standing for 3-5 minutes at a time to get food or use bathroom. Objective: General Observation: Resting in HOB, telemetry, IV R cubital fossa, breathing room air Mental Status: A & O x 3 Pain: 5/10 R abdomen Vital Signs: BP 108/49, HR 65, 97% on room air. Sitting and standing vitals remain stable. RR 24+/- throughout. ROM: Right Upper Extremity: WFL Left Upper Extremity: WFL Right Lower Extremity: WFL Left Lower Extremity: WFL Strength: Right Upper Extremity: Grossly 4/5 Left Upper Extremity: Grossly 4/5 Right Lower Extremity: Grossly 5/5 knees and below, hip flexion 3/5 Left Lower Extremity: Grossly 5/5 knees and below, hip flexion 3/5 Unable to attempt bridge due to glute weakness, able to lift legs I for removal of SED's Sensation: Intact to light touch and pressure B Bed Mobility/Transfers: Close supervision with bed mobility CG sit<>stand at RW Gait: Unable to tolerate today Balance: Static Sitting: Good Dynamic Sitting: Fair Static Standing: Fair Dynamic Standing: Fair Special Tests: Mobility Limitations Standardized Measure [facility] AM-PAC 6 clicks Basic Mobility Inpatient Short Form: Raw Score: 15 Standardized Score: CMS Score: 15% disability CMS Modifier: [] Informed Consent/Education: Patient instructed in purpose of PT consult and plan of care. Assessment: Patient is a 68 year old female referred to physical therapy services with the diagnosis of DKA. Patient presents with clinical signs and symptoms consistent with global weakness, deconditioned, and gait deficit, secondary to physical impairment developing during medical course. Impairment level findings: Unable to ambulate, gross UE and LE weakness, and balance deficit. Impairments are contributing to the following functional limitations: [facility] score 57% disability, assistance required with bed mobility and transfers, unable to ambulate, not able to care for self. Patient is assessed as a Low 57411 x Moderate 52386 High 78722 complexity based on the following: History: See above Examination: See above Presentation: Evolving Decision Making: Lito [facility] 57% disability Goals: Goals X1 week 1. Supine-Sit Close supervision 2. Sit-Supine close supervision 3. Sit-Stand close supervision, at RW 4. Stand-Sit close supervision, at RW 5. Bed-Chair CG, at RW 6. Chair-Bed CG, at RW 7. Gait 20 ft, RW, CG 9. Independent with home exercise program 10. Balance Good with RW Plan of Care/Treatment Plan: 1-2x/day, 7 days/week x 1 week. Plan of care has been reviewed with the EDITOR MANAGING NEWSPAPER providing the service under Physical Therapy direction. Initiate Physical Therapy intervention for strengthening, bed mobility, transfers, gait, stairs, balance training, use of assistive device. DISCHARGE RECOMMENDATIONS: Rehab setting TREATMENT CODE/TIME: 20 minutes, [id number] Lakisha Wilcox, MPT
--- NOTE | 2019-03-15 14:38 | IN_ITS ---
Date of service: 03/15/19 Time of Service: 14:10 PT Notes Inpatient Physical Therapy Evaluation Date: 03/15/19 Referring Doctor: Randi Dyer MD PT Orders: PT CONSULT: Eval and Treat Precautions: Standard, fall risk Patient Profile/Admitting Diagnosis: 68 year old female admitted through ER with DKA, due to poorly managedDM Type II. She has been bid ridden x 3 days during her medical treatment, now ready for attempt of mobility. PMHX: Past Medical History: Internal derangement of right knee (Acute) Back pain (Chronic) Asthma (Chronic) Osteoporosis (Chronic 03/16/18) Neck pain (Chronic 03/16/18) Migraine (Chronic 04/03/14) Long-term use of high-risk medication (Chronic 03/16/18) Interstitial lung disease (Chronic 03/16/18) History of shingles (Resolved 03/16/18) Gastroesophageal reflux disease without esophagitis (Chronic 03/16/18) Essential hypertension (Chronic 07/17/13) Edema (Chronic 03/16/18) Dyspnea (Chronic 03/16/18) Depressive disorder (Chronic) Cubital tunnel syndrome (Resolved 03/16/18) Cognitive impairment (Chronic 03/16/18) Chronic constipation (Chronic 03/16/18) Anxiety (Chronic 03/16/18) Acute gastroenteritis (Resolved 03/16/18) Umbilical hernia (Chronic) Type II diabetes mellitus, uncontrolled (Chronic) Total urinary incontinence (Chronic) Shoulder pain (Chronic) Post herpetic neuralgia (Chronic 03/16/18) Peripheral neuralgia (Chronic) 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 She is (I) with all ADLs/IADLs at her baseline level of function. She has a tub shower which is difficulty for her at times to perform her bathing routine. She wishes for a shower chair. She notes that she did have HH nursing, OT and PT in her home which has since discharged her. A neighbor helps with her neurology technologist as she is unable to do this on her own. She gets food from meals on wheels. She notes that she has been unable to go grocery shopping for a month. She states that she gets rides from [employer]. She was going to outpatient Physical Therapy and reports that she would like to return to pool therapy. Equipment owned/DME: [employer] which she reports she has not been to in a month, [facility], wheelchair, [facility], Home O2 which she is at 2L O2 at all times. Grab bars. Would like a shower chair. Current Functional Limitations: Supervision with bed mobility, dependent on HOB elevation, CG with sit to stand, unable to walk. Subjective: Reports pain in right lower abdomen. Hoping to go to rehab for a few weeks, to get stronger prior to returning home. She would like to go to outpatient for aquatic therapy when able. Admits to a sedentary life style only standing for 3-5 minutes at a time to get food or use bathroom. Objective: General Observation: Resting in HOB, telemetry, IV R cubital fossa, breathing room air Mental Status: A & O x 3 Pain: 5/10 R abdomen Vital Signs: BP 108/49, HR 65, 97% on room air. Sitting and standing vitals remain stable. RR 24+/- throughout. ROM: Right Upper Extremity: WFL Left Upper Extremity: WFL Right Lower Extremity: WFL Left Lower Extremity: WFL Strength: Right Upper Extremity: Grossly 4/5 Left Upper Extremity: Grossly 4/5 Right Lower Extremity: Grossly 5/5 knees and below, hip flexion 3/5 Left Lower Extremity: Grossly 5/5 knees and below, hip flexion 3/5 Unable to attempt bridge due to glute weakness, able to lift legs I for removal of SED's Sensation: Intact to light touch and pressure B Bed Mobility/Transfers: Close supervision with bed mobility CG sit<>stand at RW Gait: Unable to tolerate today Balance: Static Sitting: Good Dynamic Sitting: Fair Static Standing: Fair Dynamic Standing: Fair Special Tests: Mobility Limitations Standardized Measure [facility] AM-PAC 6 clicks Basic Mobility Inpatient Short Form: Raw Score: 15 Standardized Score: CMS Score: 15% disability CMS Modifier: [] Informed Consent/Education: Patient instructed in purpose of PT consult and plan of care. Assessment: Patient is a 68 year old female referred to physical therapy services with the diagnosis of DKA. Patient presents with clinical signs and symptoms consistent with global weakness, deconditioned, and gait deficit, secondary to physical impairment developing during medical course. Impairment level findings: Unable to ambulate, gross UE and LE weakness, and balance deficit. Impairments are contributing to the following functional limitations: [facility] score 57% disability, assistance required with bed mobility and transfers, unable to ambulate, not able to care for self. Patient is assessed as a Low 72028 x Moderate 08812 High 55241 complexity ba sed on the following: History: See above Examination: See above Presentation: Evolving Decision Making: Lito [facility] 57% disability Goals: Goals X1 week 1. Supine-Sit Close supervision 2. Sit-Supine close supervision 3. Sit-Stand close supervision, at RW 4. Stand-Sit close supervision, at RW 5. Bed-Chair CG, at RW 6. Chair-Bed CG, at RW 7. Gait 20 ft, RW, CG 9. Independent with home exercise program 10. Balance Good with RW Plan of Care/Treatment Plan: 1-2x/day, 7 days/week x 1 week. Plan of care has been reviewed with the [employer] OPERATOR providing the service under Physical Therapy direction. Initiate Physical Therapy intervention for strengthening, bed mobility, transfers, gait, stairs, balance training, use of assistive device. DISCHARGE RECOMMENDATIONS: Rehab setting TREATMENT CODE/TIME: 20 minutes, [id number] Lakisha Wilcox, MPT
[2019-03-15] MEDS: Albuterol/Ipratropium 3 ML UPD VIAL UPD (18:48)
[2019-03-15] MEDS: Pantoprazole 40 MG TABCR PO (19:46)
--- NOTE | 2019-03-15 20:28 | NUR.NOTE ---
Nursing Note:pt transfered from ICU to room 207 at 20:10. All belongings with pt. Will continue to monitor.
[2019-03-16] VITALS (12 sets, daily range): BP systolic 100–115; BP diastolic 48–69; PULSE 92–103; RESP 4–22; TEMP 37.1–37.9; O2SAT 93–97
[2019-03-16] MEDS: Lactated Ringers 1,000 ML 100 ML IV ×3 (00:48→21:38)
[2019-03-16] MEDS: Albuterol/Ipratropium 3 ML UPD VIAL UPD ×3 (00:48→21:42)
[2019-03-16] MEDS: metroNIDAZOLE 500 MG/100 ML BAG 100 MG IVPB ×3 (01:32→17:51)
[2019-03-16] MEDS: Normal Saline Flush 10 ML SYR IVP ×2 (01:32→21:39)
[2019-03-16 07:15] LABS: Abs Immature Grans 0.03 k/cumm (0.0-0.09); Absolute Basophil Count 0.06 k/cumm (0.0-0.2); Absolute Eosinophil Count 0.51 k/cumm (0.0-0.7); Absolute Lymphocyte Count 1.85 k/cumm (1.2-3.4); Absolute Monocyte Count 0.59 k/cumm (0.11-0.7); Absolute Neutrophil Count 4.57 k/cumm (1.2-6.7); Basophils % 0.8; Eosinophils % 6.7; HCT 36.2 % (36.0-46.0); HGB 11.8 g/dL (12.0-15.5); Immature Grans % 0.4; Lymphocytes % 24.3; Mean Corp. HGB Concentration 32.6 g/dL (32.0-36.0); Mean Corpuscular Hemoglobin 29.4 pg (27.0-33.0); Mean Corpuscular Volume 90.3 fL (80-95); Mean Platelet Volume 10.9 fL (8.0-11.0); Monocytes % 7.8; Platelet Count 272 x1000/uL (130-400); RBC 4.01 m/cumm (4.00-5.20); White Blood Cell Count 7.61 k/cumm (4.4-10.8)
[2019-03-16 07:20] LABS: Anion Gap 11.1 mmol/L (3-11); BUN 3 mg/dL (7-18); CO2 18.9 mmol/L (21.0-32.0); CREATININE 0.88 mg/dL (0.55-1.02); Calcium 8.6 mg/dL (8.5-10.1); Chloride 108 mmol/L (98-107); Glucose 201 mg/dL (70-100); Magnesium 1.7 mg/dL (1.8-2.4); Potassium 3.7 mmol/L (3.5-5.1); Sodium 138 mmol/L (136-145)
[2019-03-16] MEDS: Lactobacillus Acidophilus CAP 1 CAP PO ×2 (08:08→20:21)
[2019-03-16] MEDS: Sucralfate 1 GM TAB PO ×3 (08:08→21:39)
[2019-03-16] MEDS: Pantoprazole 40 MG TABCR PO ×2 (08:08→20:21)
[2019-03-16] MEDS: Insulin Aspart 300 UNITS/3 ML PEN SC ×3 (08:09→16:48)
[2019-03-16] MEDS: Insulin Aspart 300 UNITS/3 ML PEN 10 UNITS SC ×3 (08:09→16:49)
[2019-03-16] MEDS: Insulin Glargine 300 UNITS/3 ML PEN 70 UNITS SC (08:10)
[2019-03-16] MEDS: Magnesium Oxide 400 MG TAB PO (08:27)
[2019-03-16] MEDS: POTASSIUM CHLORIDE 20 MEQ, POTASSIUM CHLORIDE 10 MEQ 30 MEQ PO (08:27)
[2019-03-16] MEDS: Nystatin POWDER 60 GM JAR TP ×2 (08:27→20:22)
[2019-03-16] MEDS: Budesonide/Formoterol 160/4.5 6 GM 60 PUFF INH IH ×2 (09:06→20:20)
--- NOTE | 2019-03-16 09:25 | PCNE_ITS ---
Date of service: 03/15/19 History of Present Illness Chief Complaint: help with GOC and CODE Status discussion Narrative: Elly is a chronically ill, morbidly obese woman who appears at least a decade older than her stated age. I was asked to see her in the ICU by Dr. Dyer who wanted me to confirm that Elly's decision to be a full code was a fully informed decision. 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 BMI is in morbidly obese range was noted to have episodes of apnea while sleeping not sure if she is willing to wear CPAP; thinking about sleep study (2) CHF (congestive heart failure): Current visit: Yes Status: Chronic ECHO done hard to interpret by cardiology given her body habitus did show RV strain and dilation has right-sided heart failure not mobile enough to participate in cardiac rehab weight loss and increased activity would be best for her health (3) Chronic respiratory failure with hypoxia: Current visit: No Status: Chronic not a new problem will worsen with time (4) Palliative care patient: Current visit: Yes Status: Chronic suspect that we are beginning to see a pattern of multiple hospital admissions this is her second admit in 2 months will continue to follow her (5) Counseling regarding advance directives and goals of care: Current visit: Yes Status: Acute Long detailed discussion of what a code would entail, her low chances of surviving it, the pain she would experience, etc. Nonetheless, Elly is QUITE clear that she wants to remain FULL CODE. She filled out COLST with her wishes. She wants to be kept alive until her daughter, Tricia Clarke has a chance to arrive from [place] to say her good-byes. She says she has discussed this with her family an d they support her in this plan. She says even if she has no neurological function, she wants to be kept alive. She does live by herself in [facility] so it is possible that she may not be discovered in time to resuscitate her. (6) DKA (diabetic ketoacidoses): Current visit: Yes Status: Acute Said she stopped her insulin when sick because she wasn't eating and was too weak to get up to take her meds. She is willing to go to a Rehab after this hospitalization for 2-3 weeks ONLY. Wants to return to her apt after that. Review of Systems Constitutional Reports daytime sleepiness, Reports difficulty sleeping, Reports fatigue, Reports snoring, Reports stops breathing during sleep and Reports weakness Eyes Reports blurry vision, Reports dry eyes, Reports loss of vision and Reports requires corrective lenses ENT Reports change in voice, Reports dizziness, Reports dry mouth and Reports disequilibrium Cardiovascular Reports edema, Reports leg edema, Reports lightheadedness, Reports palpitations, Reports dyspnea, Reports dyspnea on exertion and Reports paroxysmal nocturnal dyspnea Respiratory Reports dyspnea, Reports dyspnea on exertion, Reports snoring and Reports wheezing Gastrointestinal Reports bloating and Reports constipation Genitourinary Reports post void dribbling and Reports urinary incontinence Musculoskeletal Reports abnormal gait, Reports back pain, Reports myalgias, Reports atrophy, Reports arthralgias, Reports limited range of motion and Reports stiffness Integumentary/Breasts Reports dry skin, Reports pruritus and Reports rash Neurologic Reports abnormal gait, Reports dizziness, Reports loss of vision, Reports other visual disturbances, Reports disequilibrium and Reports weakness Psychiatric Reports difficulty concentrating Endocrine Reports fatigue, Reports heat intolerance, Reports polydipsia and Reports palpitations Hematologic/Lymphatic Reports easy bruising Allergic/Immunologic Reports wheezing [facility] Medical History Internal derangement of right knee (Chronic) Back pain (Chronic) Asthma (Chronic) Osteoporosis (Chronic 03/16/18) Neck pain (Chronic 03/16/18) Migraine (Chronic 04/03/14) Long-term use of high-risk medication (Chronic 03/16/18) Interstitial lung disease (Chronic 03/16/18) History of shingles (Resolved 03/16/18) Gastroesophageal reflux disease without esophagitis (Chronic 03/16/18) Essential hypertension (Chronic 07/17/13) Edema (Chronic 03/16/18) Dyspnea (Chronic 03/16/18) Depressive disorder (Chronic) Cubital tunnel syndrome (Resolved 03/16/18) Cognitive impairment (Chronic 03/16/18) Chronic constipation (Chronic 03/16/18) Anxiety (Chronic 03/16/18) Acute gastroenteritis (Resolved 03/16/18) Umbilical hernia (Chronic) Type II diabetes mellitus, uncontrolled (Chronic) Total urinary incontinence (Chronic) Shoulder pain (Chronic) Post herpetic neuralgia (Chronic 03/16/18) Peripheral neuralgia (Chronic) 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) Hyperlipemia (Acute) Asthma (Chronic) Insulin dependent diabetes mellitus (Chronic) Surgical History Appendectomy Arthroscopy, Shoulder Bilateral salpingectomy with oophorectomy section Cholecystectomy Ligation of fallopian tube Thoracoscopic (R)Lung Bx (02/12/18) Family History Mother Diabetes Essential hypertension CHF (congestive heart failure) Heart disease Dementia Father Diabetes Essential hypertension CAD (coronary artery disease) Heart disease Hyperlipidemia Stroke Sister Diabetes Personal history of malignant neoplasm Asthma Lung cancer Brother Diabetes Essential hypertension Personal history of malignant neoplasm Hyperlipidemia Asthma Mesothelioma Brother Pulmonary embolus with infarction Daughter No problems noted. Son No problems noted. Social History Smoking/Tobacco Use Status: Never Alcohol Intake: never Details: monthly or less Drug use: Never Substance use type: does not use Adopted: No Caregiver/Support person: No Foster care: No Household members: none Housing: apartment Number of Children: 2 number of grandchildren: 5 Communication Needs: Hard of Hearing and Corrective Lenses Education Level: middle school Do you need help understanding health information?: Always current occupation: disabled Pets and animals: No What is your relationship status?: How often do you talk on the phone with friends or family?: twice per week How often do you get together with friends or relatives?: once per week Panel score (0-1 are the most socially isolated patients): 1 What type of physical activity do you participate in: none and sedentary lifestyle Duration: 15-30 minutes/day Frequency: daily Special devin needs: No Agree to transfusion: Yes Seatbelt use: always Drive intox or ride w/intox reach lift truck driver: No Water heater temp set <120 deg: Yes Working smoke detector in home: Yes Fire extinguisher in home: Yes Carbon monox detector in home: Yes Do you feel safe at home: Yes Do you feel safe in your relationship?: Yes Additional Social history: Grandson Jorge Luis used to live with her. His phone # is [phone]. Daughter Caridad lives in [place]. Son Himanshu lives in [facility], not as close to him. Gets together with brother Brian regularly who takes her shopping and goes for drives. Exam Const General: cooperative, no acute distress and ill appearing Nutritional Appearance: obese Orientation: alert, awake and oriented x3 HENMT Head: normocephalic and atraumatic Ears: hearing grossly impaired General nose exam: external nose normal Face and sinus: dry mucous membranes Mouth: malodorous breath Eyes Conjunctivae: conjunctivae normal Sclera: sclerae normal Neck Neck: no lymphadenopathy and no JVD Resp Effort & Inspection: able to speak in complete sentences, audible wheezes (but clears with cough) and cough Auscultation: clear to auscultation bilaterally and diminished lung sounds Cardio Rate: regular rate Rhythm: regular rhythm Heart Sounds: S1 normal and S2 normal GI Inspection: obesity Palpation: soft Auscultation: normal bowel sounds Skin General skin exam: dry skin, ecchymosis and pallor Hair: brittle and general thinning Neuro General: alert, awake and oriented x3 Cognition: abnormal cognition (simple in her thought processes, but clear about her wishes) Gait: gait assisted (in bed during my exam, was in ICU) Method: other Motor: strength abnormal Extrem General: edema and muscle atrophy Psych Appearance: grossly normal Mental Status: mental status grossly normal Speech and Movement: delayed speech and slowed movement Mood: congruent mood Affect: normal affect Attitude: cooperative Thought Process: impoverished Insight: fair Judgment: limited Results Last Vital Signs Temp 99.3 F 03/16/19 07:10 Pulse 103 H 03/16/19 07:10 Resp 18 03/16/19 07:10 BP 106/67 03/16/19 07:10 Pulse Ox 96 03/16/19 07:10 Labs : 03/16/19 06:20 03/16/19 06:20 Laboratory Results - last 24 hr 03/16/19 03/16/19 06:20 06:20 WBC 7.61 RBC 4.01 Hgb 11.8 L Hct 36.2 MCV 90.3 MCH 29.4 MCHC 32.6 RDW 15.0 H Plt Count 272 MPV 10.9 Immature Gran % 0.4 Neutrophils % 60.0 Lymphocytes % 24.3 Monocytes % 7.8 Eosinophils % 6.7 Basophils % 0.8 Absolute Neutrophils 4.57 Absolute Lymphocytes 1.85 Absolute Monocytes 0.59 Absolute Eosinophils 0.51 Absolute Basophils 0.06 Sodium 138 Potassium 3.7 Chloride 108 H Carbon Dioxide 18.9 L Anion Gap 11.1 H BUN 3 L Creatinine 0.88 Estimated GFR/1.73 m2 >= 60.00 Glucose 201 H Calcium 8.6 Magnesium 1.7 L
[2019-03-16] MEDS: CIPROFLOXACIN 200 MG/100 ML BAG 100 MG IVPB ×2 (11:55→21:39)
--- NOTE | 2019-03-16 11:55 | W.PM.PROGNOT ---
Date of Service Date of service: 03/16/19 Time of Service: 09:45 Assessment and Plan (1) DKA (diabetic ketoacidoses): Current visit: Yes Status: Acute resolved, now on basal lantus of 70 units daily with sliding scale if needed, blood sugars have been in 100-low 200 range. A1C dec 17, 2018 was 11.1. diabetic education (2) Acute colitis: Current visit: Yes Status: Acute still taking cipro/flagyl day 4, diarrhea resolved cdiff negative stool cultures pending still having abdominal pain and nausea. will consult general surgery. differentials include ischemic colitis. (3) DVT prophylaxis: Current visit: No Status: Acute Teds + SCD's (chemical dvt prophylaxis is contraindicated in setting of hem + stools) (4) COPD (chronic obstructive pulmonary disease): Current visit: No Status: Chronic chronic, stable, (5) Essential hypertension: Current visit: No Status: Chronic Not on therapy at this time - monitor (6) Discharge planning issues: Current visit: Yes Status: Acute remains a full code at her wishes. she did have palliative consult with Dr Centeno who did complete a COLST form. case management following. there is question of whether she will be able to take care of herself safely at discharge. She will likely require a swing level stay prior to final discharge. Subjective Patient reports: nausea Interval history since last seen: this is a 68 year old female admitted for DKA preceded by a 3 day history of abdominal pain, nausea and diarrhea. She was started on cipro/flagyl for this. her stool was negative for cdiff, other stool culture reports are still pending. She has been afebrile. her hospital course was also complicated by fluid overload, for which she was diuresed. Her DKA has resolved with aggressive IV hydration and insulin drip. she has been weaned and is now on lantus 70 units daily with sliding scale coverage. blood sugars have been in the 100-low 200 range. today she is complaining of ongoing abdominal pain and nausea. she states she is moving her bowels once daily, soft formed now, with no further diarrhea, is passing flatus. she has had no rectal bleeding. she states she vomited her pills today and has generalized abdominal pain. she has had no fevers. Exam Const General: cooperative, acute distress mild, frail appearing, ill appearing chronically and other (older than stated age) Nutritional Appearance: obese Orientation: alert and awake [facility] Head: normal to inspection Mouth: moist mucous membranes abnormal (dry, no exudate) Resp Effort & Inspection: no audible wheezes and respiratory distress (shortness of breath on exertion) Auscultation: diminished lung sounds bilaterally Cardio Rate: regular rate Rhythm: regular rhythm GI Inspection: distended Palpation: soft, no guarding, no masses and tender in the epigastrum, in the LUQ and in the RUQ Auscultation: normal bowel sounds Neuro General: alert and awake Extrem General: full ROM and edema Laterality: bilateral (trace) Objective Objective Clinical Data: Abnormal lab results 03/16/19 03/16/19 Range/Units 06:20 06:20 Hgb 11.8 L (12.0-15.5) g/dL RDW 15.0 H (11.7-14.6) % Chloride 108 H (98-107) mmol/L Carbon Dioxide 18.9 L (21.0-32.0) mmol/L Anion Gap 11.1 H (3-11) mmol/L BUN 3 L (7-18) mg/dL Glucose 201 H (70-100) mg/dL Magnesium 1.7 L (1.8-2.4) mg/dL Vital Signs Temperature 37.4 C 03/16/19 07:10 Temperature Source Tympanic 03/16/19 07:10 Pulse 103 H 03/16/19 07:10 Pulse Rhythm Regular 03/16/19 08:01 Pulse 104 H 03/15/19 19:00 Respiratory Rate 18 03/16/19 07:10 Respiratory Effort Non-Labored 03/16/19 08:01 Respiratory Depth Normal 03/16/19 08:01 Respiratory Pattern Normal 03/16/19 08:01 Blood Pressure 106/67 03/16/19 07:10 Blood Pressure Mean 55 03/15/19 18:01 Blood Pressure Position Sitting 03/14/19 12:10 Pulse Oximetry 96 03/16/19 08:45 Oxygen Delivery Method Nasal Cannula 03/16/19 08:45 Oxygen Flow Rate 0 03/16/19 08:45 Pain Level 0 03/16/19 07:10 Intake & Output 03/15/19 03/15/19 03/16/19 11:59 23:59 11:59 Intake Total 3587.923 / 6749.590 3161.667 / 6749.590 1995.667 / 1995.667 Output Total 800 / 2500 1700 / 2500 1100 / 1100 Balance 2787.923 / 4249.590 1461.667 / 4249.590 896.667 / 896.667 Weight 88.5 kg 95.5 kg Intake: IV 3067.923 / 5469.590 2401.667 / 5469.590 1056.667 / 1056.667 Oral 520 / 1280 760 / 1280 940 / 940 Output: Urine 800 / 2500 1700 / 2500 1100 / 1100 Other: Urine Color Yellow Yellow Light [place] Urine Appearance Sediment Clear Sediment Comment HUERTAS IN PLACE. indwelling huertas catheter Notified RN Stool Size Smear Stool Characteristics Soft Brown Laboratory Results WBC 7.61 k/cumm (4.4-10.8) 03/16/19 06:20 RBC 4.01 m/cumm (4.00-5.20) 03/16/19 06:20 Hgb 11.8 g/dL (12.0-15.5) L 03/16/19 06:20 Hct 36.2 % (36.0-46.0) 03/16/19 06:20 MCV 90.3 fL (80-95) 03/16/19 06:20 MCH 29.4 pg (27.0-33.0) 03/16/19 06:20 MCHC 32.6 g/dL (32.0-36.0) 03/16/19 06:20 RDW 15.0 % (11.7-14.6) H 03/16/19 06:20 Plt Count 272 x1000/uL (130-400) 03/16/19 06:20 MPV 10.9 fL (8.0-11.0) 03/16/19 06:20 Immature Gran % 0.4 03/16/19 06:20 Neutrophils % 60.0 03/16/19 06:20 Lymphocytes % 24.3 03/16/19 06:20 Monocytes % 7.8 03/16/19 06:20 Eosinophils % 6.7 03/16/19 06:20 Basophils % 0.8 03/16/19 06:20 Absolute Neutrophils 4.57 k/cumm (1.2-6.7) 03/16/19 06:20 Absolute Lymphocytes 1.85 k/cumm (1.2-3.4) 03/16/19 06:20 Absolute Monocytes 0.59 k/cumm (0.11-0.7) 03/16/19 06:20 Absolute Eosinophils 0.51 k/cumm (0.0-0.7) 03/16/19 06:20 Absolute Basophils 0.06 k/cumm (0.0-0.2) 03/16/19 06:20 Sample Site Right radial 03/13/19 09:57 pCO2 33 mmHg (34-47) L 03/13/19 09:57 pO2 93 mmHg (83-108) 03/13/19 09:57 O2 Saturation 98 % (94-98) 03/13/19 09:57 ABG pH 7.33 (7.35-7.45) L 03/13/19 09:57 ABG HCO3 17 mmol/L (22-28) L 03/13/19 09:57 ABG Total CO2 16 mmol/L (22-29) L 03/13/19 09:57 ABG Base Excess -8.8 mmol/L (-3-3) L 03/13/19 09:57 VBG pH 7.34 (7.32-7.43) 03/15/19 08:06 VBG pCO2 33 mm/Hg (34-47) L 03/15/19 08:06 VBG pO2 41 mm/Hg (28-44) 03/15/19 08:06 VBG HCO3 18 mmol/L (22-28) L 03/15/19 08:06 VBG Total CO2 17 mmol/L (22-29) L 03/15/19 08:06 VBG O2 Saturation 81 % (70-80) H 03/15/19 08:06 VBG Base Excess mmol/L (-3-3) 03/15/19 08:06 Oxygen Liter Flow 2 L 03/13/19 09:57 FiO2 Nasal cannula % 03/13/19 09:57 Sodium 138 mmol/L (136-145) 03/16/19 06:20 Potassium 3.7 mmol/L (3.5-5.1) 03/16/19 06:20 Chloride 108 mmol/L (98-107) H 03/16/19 06:20 Carbon Dioxide 18.9 mmol/L (21.0-32.0) L 03/16/19 06:20 Anion Gap 11.1 mmol/L (3-11) H 03/16/19 06:20 BUN 3 mg/dL (7-18) L 03/16/19 06:20 Creatinine 0.88 mg/dL (0.55-1.02) 03/16/19 06:20 Estimated GFR/1.73 m2 >= 60.00 (mL/min/1.73m2) 03/16/19 06:20 Glucose 201 mg/dL (70-100) H 03/16/19 06:20 Lactate 2.2 mmol/l (0.6-1.4) H 03/15/19 08:06 Calcium 8.6 mg/dL (8.5-10.1) 03/16/19 06:20 Magnesium 1.7 mg/dL (1.8-2.4) L 03/16/19 06:20 Total Bilirubin 0.9 mg/dL (0.2-1.0) 03/12/19 17:38 AST 18 U/L (15-37) 03/12/19 17:38 ALT 22 U/L (12-78) 03/12/19 17:38 Alkaline Phosphatase 132 U/L (46-116) H 03/12/19 17:38 Troponin I 0.03 ng/mL (0.00-0.06) 03/13/19 06:32 Total Protein 7.7 g/dL (6.4-8.2) 03/12/19 17:38 Albumin 3.3 g/dL (3.4-5.0) L 03/12/19 17:38 TSH 0.80 uIU/mL (0.358-3.74) 03/14/19 06:25 Thyroxine (T4) 5.3 ug/dL (4.5-12.5) 03/14/19 06:25 Urine Color Straw (Yellow) 03/12/19 18:44 Urine Clarity Clear 03/12/19 18:44 Urine pH 5.0 (5-8) 03/12/19 18:44 Ur Specific [place] 1.010 (1.005-1.025) 03/12/19 18:44 Urine Protein Trace mg/dL (Negative) H 03/12/19 18:44 Urine Ketones >=160 mg/dL (Negative) H 03/12/19 18:44 Urine Blood Trace-intact (Negative) H 03/12/19 18:44 Urine Nitrite Negative (Negative) 03/12/19 18:44 Urine Bilirubin Small (Negative) H 03/12/19 18:44 Urine Urobilinogen 0.2 EU/dL (Up TO 0.2) 03/12/19 18:44 Ur Leukocyte Esterase Negative (Negative) 03/12/19 18:44 Urine RBC Negative (0-2) 03/12/19 18:44 Urine WBC Negative HPF (0-5) 03/12/19 18:44 Ur Epithelial Cells Negative HPF (Negative) 03/12/19 18:44 Urine Crystals Few amorphous HPF (Negative) 03/12/19 18:44 Urine Bacteria Negative HPF (Negative) 03/12/19 18:44 Urine Casts Negative LPF (Negative) 03/12/19 18:44 Urine Mucus Negative (Negative) 03/12/19 18:44 Urine Other Negative (Negative) 03/12/19 18:44 Ur Culture Indicated? No 03/12/19 18:44 Urine Glucose 500 mg/dL (Negative) H 03/12/19 18:44 Stl C.difficile Tox PCR Negative 03/13/19 11:45 C.difficile Tox Source Feces 03/13/19 11:45
--- NOTE | 2019-03-16 12:46 | PT.INTREAT ---
Date of service: 03/16/19 Time of Service: 10:50 PT Notes 03/16/19 Cancelled today's PT session due to patient complaining of vomiting and indicating she was refusing PT services. Not today babe. Will attempt PT services tomorrow if feeling better. Margoth Kendall, MAINTENANCE SHOP MANAGER
--- NOTE | 2019-03-16 13:32 | W.SURGCON ---
Date of service: 03/16/19 Time of Service: 13:32 Assessment and Plan (1) DKA (diabetic ketoacidoses): Current visit: Yes Status: Acute (2) Metabolic acidosis with normal anion gap and bicarbonate losses: Current visit: Yes Status: Acute -no signs of intra-abdom infection. No signs of ischemia. -abdom exam is unremarkable except for some mild pain in epigastric position. she in on PPI and carafate. mild changes noted on x2 Ct's. -Hgb was nl on admission. slt . downward trend. Doubt active bleeding or cancer. -no diarrhea since admission. stool cult are still pd . C. diff neg -no diverticular dx on CT. cannot find results of previous CE pt says she has had -ileus vs obstipation on flat plate today. She does not have a surgical abdomen. -poss pancreatic exocrine deficiency as well. d/w D.r Latteresai- no candidate for anesthesia/endoscopy (3) Abdominal pain: Current visit: Yes Status: Acute (4) Acute kidney injury (nontraumatic): Current visit: Yes Status: Acute (5) CHF (congestive heart failure): Current visit: Yes Status: Chronic History of Present Illness Narrative: pt has been in hosp since 03/13. admitted w/ DKA and acute kidney injury. She was C. diff neg at that point. When she came she said she has having diarrhea. She has not had a stool since she was in the hosp. She was c diff neg on 03/13. She was started on Abx at that time. stool cultures have not been done b/c she has not had a stool since she was in the ED. She has a long standing Hx of type II DM. Rn says today she is c/o abdom pain- but she told RN it seemed more gassy to her. She has not had any vomiting in the hospital. But she has no appetite and cannot eat. She had a sm stool smear yest that was brown. Heme + . She is not on asa/nsaid's or blood thinners Pt is not a very good historian. She says she is throwing up constantly and cannot eat. She says acidic foods eat hurt her stomach. Her GB is out. She says when she eats some foods she get abdominal pain - but that sounds more like localized epigastric/gastritis type pains than intestinal angina. Pt is obese. She has had no recent wt loss. She says she has chronic diarrhea. 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 She is on PPI and carafate while she is in hosp. She says she had a CE a yr ago. I don't see any record on her chart. She had a CT w/ IV and oral contrast in february 2019 for abdominal pain : Patient Name: ZION NUNEZ #: [id number]: : 1950ge: 68 Exam(s) a CT:CT abdomen & pelvis w SYMPTOM/DIAGNOSIS: SUSPECTED PANCREATITIS, ABD PAIN ABDOMEN AND PELVIC CT: CT scan of the abdomen and pelvis was performed following the uneventful administration of intravenous and oral contrast material. Dependent atelectatic changes are seen in the lungs. There is patient motion artifact which does limit the examination. The liver is normal in size. There is a well circumscribed, hypodense lesion in the posterior segment of the left lobe of the liver. This is nonspecific. The portal, superior mesenteric and splenic veins are patent. The patient is status post cholecystectomy. No biliary ductal dilatation is seen. There is mild fatty atrophy seen of the pancreas. No pancreatic mass or inflammatory change is seen. The spleen and adrenal glands are unremarkable. The kidneys show normal and symmetric enhancement. No suspicious solid renal mass or obstruction is identified. The urinary bladder is intact. The reproductive organs are unremarkable. Note is made of a small hiatal hernia. There is a question of mild thickening of the wall of the antrum of the stomach. The remainder of the bowel shows no evidence of an acute inflammatory or infectious process. No findings to suggest an acute appendicitis are seen. No evidence of obstruction is present. The abdominal aorta shows mild atherosclerosis. No aneurysmal dilatation. No significant abdominal or pelvic adenopathy, ascites or pneumoperitoneum is present. Degenerative changes are seen in the spine. Since the prior CT scan dated 05/21/18, there has been continued compression of the superior endplate of L 1. There is now loss of height of approximately 20% of the vertebral body anteriorly. This is stable compared to the chest xray from 01/19/19. No new compression fracture deformities are appreciated. IMPRESSION: Question mild thickening of the wall of the gastric antrum. Inflammatory or infectious process could not be excluded. Please correlate with the patient's past medical history and clinical findings. Per Dr. Bazan she is not a candidate for anesthesia/endoscopy at this time. good clear yellow urine. No vomiting at this time. pt is on PPI and carafate. Hgb is generally nl. Kidney function has returned to normal. I did review the CT from January- celiac axis and mesenteric arteries appear open. ct in january and february show thickening in stomach. No abnl's in colon. no signs of bowel or ischemic bowel at this time. No signs of infectious colitis or diverticulitis. Doubt inflammatory colitis. Consults Consult date: 03/16/19 Requesting physician: Joseph Bazan Review of Systems ENT Comments: no thrush Cardiovascular Comments: Patient Name: ZION NUNEZ #: [id number]: ICU Ordering Provider: Randi Dyer M.D. : ADM IN Primary Care Provider: Mario Garcia of Exam: 03/14/19Sex: F : 1Age: 68 Exam(s) a US:US echocardiogram *[facility]* *[facility]* [address] [place] [address] Date of study: 03/14/2019 Transthoracic Echocardiography M-mode, complete 2D, complete spectral Doppler, and color Doppler *STUDY CONCLUSIONS* Summary: 1. Left ventricle: The cavity size was normal. Wall thickness was increased in a pattern of mild LVH. Systolic function was normal. The estimated ejection fraction was 55-60%. Wall motion was normal; there were no regional wall motion abnormalities. 2. Ventricular septum: Septal motion showed paradoxical motion consistent with Bundle Branch Block. The contour showed systolic flattening. These changes are consistent with RV pressure overload. 3. Right ventricle: The cavity size was dilated. Systolic function was low normal. Hypokinesis of the RV apex. Respiratory Comments: cta cxr: clear Gastrointestinal Comments: epigastric pain/thickened gastric wall on CT- ? gastritis- atrophic pancrease on CT. IRDM. ? exocrine dysfunction as well chronic diarrhea per pt s/p open elaine poss ileus/pt in very immobile due to recent hospitalization Genitourinary Comments: has huertas in place . clear yellow urine. + sediment. UA was neg. Musculoskeletal Comments: changes consitent w/ chronic OA old compression Fx on CT Endocrine Comments: long standing poorly controlled DM. PFSH Medical History Metabolic acidosis with normal anion gap and bicarbonate losses (Acute) CHF (congestive heart failure) (Chronic) DKA (diabetic ketoacidoses) (Acute) Abdominal pain (Acute) Acute kidney injury (nontraumatic) (Acute) Internal derangement of right knee (Chronic) Back pain (Chronic) Asthma (Chronic) Osteoporosis (Chronic 03/16/18) Neck pain (Chronic 03/16/18) Migraine (Chronic 04/03/14) Long-term use of high-risk medication (Chronic 03/16/18) Interstitial lung disease (Chronic 03/16/18) History of shingles (Resolved 03/16/18) Gastroesophageal reflux disease without esophagitis (Chronic 03/16/18) Essential hypertension (Chronic 07/17/13) Edema (Chronic 03/16/18) Dyspnea (Chronic 03/16/18) Depressive disorder (Chronic) Cubital tunnel syndrome (Resolved 03/16/18) Cognitive impairment (Chronic 03/16/18) Chronic constipation (Chronic 03/16/18) Anxiety (Chronic 03/16/18) Acute gastroenteritis (Resolved 03/16/18) Umbilical hernia (Chronic) Type II diabetes mellitus, uncontrolled (Chronic) Total urinary incontinence (Chronic) Shoulder pain (Chronic) Post herpetic neuralgia (Chronic 03/16/18) Peripheral neuralgia (Chronic) 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) Hyperlipemia (Acute) Asthma (Chronic) Insulin dependent diabetes mellitus (Chronic) Surgical History Appendectomy Arthroscopy, Shoulder Bilateral salpingectomy with oophorectomy section Cholecystectomy Ligation of fallopian tube Thoracoscopic (R)Lung Bx (02/12/18) Family History Mother Diabetes Essential hypertension CHF (congestive heart failure) Heart disease Dementia Father Diabetes Essential hypertension CAD (coronary artery disease) Heart disease Hyperlipidemia Stroke Sister Diabetes Personal history of malignant neoplasm Asthma Lung cancer Brother Diabetes Essential hypertension Personal history of malignant neoplasm Hyperlipidemia Asthma Mesothelioma Brother Pulmonary embolus with infarction Daughter No problems noted. Son No problems noted. Social History Smoking/Tobacco Use Status: Never Alcohol Intake: never Details: monthly or less Drug use: Never Substance use type: does not use Adopted: No Caregiver/Support person: No Foster care: No Household members: none Housing: apartment Number of Children: 2 number of grandchildren: 5 Communication Needs: Hard of Hearing and Corrective Lenses Education Level: middle school Do you need help understanding health information?: Always current occupation: disabled Pets and animals: No What is your relationship status?: How often do you talk on the phone with friends or family?: twice per week How often do you get together with friends or relatives?: once per week Panel score (0-1 are the most socially isolated patients): 1 What type of physical activity do you participate in: none and sedentary lifestyle Duration: 15-30 minutes/day Frequency: daily Special devin needs: No Agree to transfusion: Yes Seatbelt use: always Drive intox or ride w/intox taxi truck driver: No Water heater temp set <120 deg: Yes Working smoke detector in home: Yes Fire extinguisher in home: Yes Carbon monox detector in home: Yes Do you feel safe at home: Yes Do you feel safe in your relationship?: Yes Additional Social history: Grandson Jorge Luis used to live with her. His phone # is [phone]. Daughter Caridad lives in [place]. Son Himanshu lives in [facility], not as close to him. Gets together with brother Brian regularly who takes her shopping and goes for drives. Exam Const General: cooperative Nutritional Appearance: obese Orientation: alert, awake and oriented to person Other: very poor historian. [facility] Head: normal to inspection, no palpable skull fracture, normocephalic and raccoon eyes Ears: hearing grossly normal bilaterally General nose exam: external nose normal Mouth: oral mucosae normal and moist mucous membranes Teeth and gingiva: edentulous Chest Chest: normal inspection of the chest Resp Effort & Inspection: normal respiratory effort and able to speak in complete sentences Auscultation: clear to auscultation bilaterally Cardio Rate: regular rate Rhythm: regular rhythm Other: bp stable good urine outpt GI Inspection: distended, incision, obesity and striae Palpation: soft Auscultation: normal bowel sounds Other: no hernias min distention good BS. mild pain in epigastric position Skin Other: intact no breakdown very dry skin Extrem Other: signif swelling of LE and UE. Results Last Vital Signs Temp 37.7 C H 03/16/19 11:15 Pulse 95 H 03/16/19 11:15 Resp 18 03/16/19 11:15 BP 115/61 03/16/19 11:15 Pulse Ox 93 L 03/16/19 11:15 Labs : 03/16/19 06:20 03/16/19 06:20 Laboratory Results - last 24 hr 03/16/19 03/16/19 06:20 06:20 WBC 7.61 RBC 4.01 Hgb 11.8 L Hct 36.2 MCV 90.3 MCH 29.4 MCHC 32.6 RDW 15.0 H Plt Count 272 MPV 10.9 Immature Gran % 0.4 Neutrophils % 60.0 Lymphocytes % 24.3 Monocytes % 7.8 Eosinophils % 6.7 Basophils % 0.8 Absolute Neutrophils 4.57 Absolute Lymphocytes 1.85 Absolute Monocytes 0.59 Absolute Eosinophils 0.51 Absolute Basophils 0.06 Sodium 138 Potassium 3.7 Chloride 108 H Carbon Dioxide 18.9 L Anion Gap 11.1 H BUN 3 L Creatinine 0.88 Estimated GFR/1.73 m2 >= 60.00 Glucose 201 H Calcium 8.6 Magnesium 1.7 L
[2019-03-16 13:41] LABS: Lipase 293 U/L (73-393)
--- NOTE | 2019-03-16 14:21 | PDOC.CMPRO ---
Care Management Progress Note S/O: Palliative Careconsult completed and she wants to be a Full Code and kept alive until her daughter, Tricia Clarke, can get here from [place]. COLST Form completed stating her wishes and family supports this decision. Elly requested a referral to [facility] which CM completed on Monday. [facility] is reviewing referral for a possible admission on Monday. She is now out of ICU and on the Medical unit. A: 68 year old female admitted to [facility] 03/12/19 for DKA P: Anticipate she will be ready for discharge in the next 48 hours. She will not be able to transition to SNF level of care over the weekend which will delay her discharge. Anticipate she will transport to [facility] once there is a bed offer via W/C van.
--- NOTE | 2019-03-16 14:31 | CMPROGNOTE_ITS ---
Care Management Progress Note S/O: Palliative Careconsult completed and she wants to be a Full Code and kept alive until her daughter, Tricia Clarke, can get here from [place]. COLST Form completed stating her wishes and family supports this decision. Elly requested a referral to [facility] which CM completed on Monday. [facility] is reviewing referral for a possible admission on Monday. She is now out of ICU and on the Medical unit. A: 68 year old female admitted to [facility] 03/12/19 for DKA P: Anticipate she will be ready for discharge in the next 48 hours. She will not be able to transition to SNF level of care over the weekend which will delay her discharge. Anticipate she will transport to [facility] once there is a bed offer via W/C van.
[2019-03-16] MEDS: Refresh PLUS Eye Drops 0.4ml OU ×3 (14:41→20:21)
--- NOTE | 2019-03-16 15:25 | DI.RAD_ITS ---
SYMPTOMS/DIAGNOSIS: ABD PAIN FLAT AND UPRIGHT ABDOMEN: Routine examination was performed. The visualized lung bases appear clear. No organomegaly or pneumoperitoneum is seen. There are a few mildly dilated loops of small bowel in the central abdomen. These are nonspecific. Early obstruction or ileus can not be excluded. Degenerative changes are seen in the spine. IMPRESSION: Nonspecific mildly dilated loops of small bowel seen in the central abdomen as described above.
[2019-03-16] MEDS: Simethicone 80 MG CHEW 160 MG PO (15:37)
[2019-03-16] MEDS: Benzonatate 100 MG CAP PO ×2 (15:37→21:50)
--- NOTE | 2019-03-16 16:05 | DI.VRAD_ITS ---
EXAM: XR Abdomen, 2 Views EXAM DATE/TIME: 03/16/2019 2:05 PM CLINICAL HISTORY: 68 years old, female; Abdominal pain TECHNIQUE: Imaging protocol: Frontal view of the abdomen/pelvis with upright view of the abdomen. COMPARISON: CR XR ABDOMEN FLAT PLATE 03/14/2019 8:50 AM FINDINGS: Gastrointestinal tract: A few loops of mildly dilated small bowel with air-fluid levels may represent early obstruction or ileus. Intraperitoneal space: Normal. No free air. Bones/joints: Unremarkable for age. IMPRESSION: A few loops of mildly dilated small bowel with air-fluid levels may represent early obstruction or ileus. Dictated and Authenticated by: Linsey Murphy MD. Ordering:NEGRA Lu MD
[2019-03-17] VITALS (15 sets, daily range): BP systolic 103–132; BP diastolic 65–78; PULSE 85–102; RESP 4–24; TEMP 36.5–37.5; O2SAT 92–100
[2019-03-17] MEDS: metroNIDAZOLE 500 MG/100 ML BAG 100 MG IVPB ×2 (01:51→09:28)
[2019-03-17] MEDS: Albuterol 2.5 MG/3 ML INH SOLN VIAL IH ×2 (05:23→13:09)
[2019-03-17] MEDS: Lactated Ringers 1,000 ML 100 ML IV (06:39)
[2019-03-17 07:25] LABS: Abs Immature Grans 0.02 k/cumm (0.0-0.09); Absolute Basophil Count 0.04 k/cumm (0.0-0.2); Absolute Eosinophil Count 0.61 k/cumm (0.0-0.7); Absolute Lymphocyte Count 1.18 k/cumm (1.2-3.4); Absolute Neutrophil Count 3.04 k/cumm (1.2-6.7); Basophils % 0.8; Eosinophils % 11.5; HCT 33.3 % (36.0-46.0); HGB 10.8 g/dL (12.0-15.5); Immature Grans % 0.4; Lymphocytes % 22.3; Mean Corp. HGB Concentration 32.4 g/dL (32.0-36.0); Mean Corpuscular Hemoglobin 29.7 pg (27.0-33.0); Mean Corpuscular Volume 91.5 fL (80-95); Mean Platelet Volume 10.7 fL (8.0-11.0); Monocytes % 7.6; Neutrophils % 57.4; Platelet Count 279 x1000/uL (130-400); RBC 3.64 m/cumm (4.00-5.20); RBC Distribution Width 15.4 % (11.7-14.6); White Blood Cell Count 5.29 k/cumm (4.4-10.8)
[2019-03-17 07:35] LABS: ALT 11 U/L (12-78); AST 13 U/L (15-37); Alkaline Phosphatase 92 U/L (46-116); Anion Gap 9.6 mmol/L (3-11); BUN 2 mg/dL (7-18); Bilirubin, Total 0.4 mg/dL (0.2-1.0); C-Reactive Protein 3.95 mg/dL (0.0-0.3); CO2 22.4 mmol/L (21.0-32.0); CREATININE 0.78 mg/dL (0.55-1.02); Calcium 8.5 mg/dL (8.5-10.1); Chloride 109 mmol/L (98-107); Glucose 178 mg/dL (70-100); Magnesium 1.6 mg/dL (1.8-2.4); Potassium 3.5 mmol/L (3.5-5.1); Sodium 141 mmol/L (136-145)
[2019-03-17 07:53] LABS: Iron 21 ug/dL (50-175); Total Iron Binding Capacity 186 ug/dL (250-450); Transferrin Sat 11 % (15-50)
--- NOTE | 2019-03-17 08:00 | DI.RAD_ITS ---
SYMPTOMS/DIAGNOSIS: ILEUS VS SBO FLAT AND UPRIGHT ABDOMEN: Comparison is 03/16/19. Nonspecific mildly dilated loops of small bowel are seen in the central abdomen. They are grossly unchanged compared to the prior examination. No pneumothorax or organomegaly is seen. IMPRESSION: No change in appearance of the abdomen.
--- NOTE | 2019-03-17 08:20 | DI.VRAD_ITS ---
EXAM: XR Abdomen, 2 Views EXAM DATE/TIME: 03/17/2019 12:01 AM CLINICAL HISTORY: 68 years old, female; Abdominal pain TECHNIQUE: Imaging protocol: Frontal view of the abdomen/pelvis with upright view of the abdomen. COMPARISON: CR XR abdomen flat upright 03/16/2019 3:18 PM FINDINGS: Gastrointestinal tract: A few loops of mildly dilated small bowel may represent ileus or minimal obstruction. No definite change. Intraperitoneal space: Normal. No free air. Bones/joints: Unremarkable for age. IMPRESSION: A few loops of mildly dilated small bowel may represent ileus or minimal obstruction. No definite change. Dictated and Authenticated by: Linsey Murphy MD. Ordering:NEGRA Lu MD
[2019-03-17] MEDS: Sucralfate 1 GM TAB PO ×3 (08:27→16:45)
[2019-03-17] MEDS: Ferrous Sulfate 325 MG TAB PO ×2 (08:27→19:34)
[2019-03-17] MEDS: Lactobacillus Acidophilus CAP 1 CAP PO ×2 (08:27→19:34)
[2019-03-17] MEDS: Insulin Aspart 300 UNITS/3 ML PEN 10 UNITS SC ×2 (08:28→11:46)
[2019-03-17] MEDS: Benzonatate 100 MG CAP PO ×2 (08:28→19:34)
[2019-03-17] MEDS: Insulin Aspart 300 UNITS/3 ML PEN SC ×2 (08:28→11:46)
[2019-03-17] MEDS: Pantoprazole 40 MG TABCR PO ×2 (08:28→19:34)
[2019-03-17] MEDS: Refresh PLUS Eye Drops 0.4ml OU ×2 (08:28→18:38)
[2019-03-17] MEDS: Insulin Glargine 300 UNITS/3 ML PEN 70 UNITS SC (08:29)
[2019-03-17] MEDS: Nystatin POWDER 60 GM JAR TP ×2 (08:29→19:35)
[2019-03-17] MEDS: Budesonide/Formoterol 160/4.5 6 GM 60 PUFF INH IH ×2 (08:56→19:34)
[2019-03-17] MEDS: Albuterol/Ipratropium 3 ML UPD VIAL UPD ×3 (09:37→20:38)
[2019-03-17 10:23] LABS: Ferritin 84 ng/mL (8-388)
--- NOTE | 2019-03-17 10:41 | PGE_ITS ---
Date of Service Date of service: 03/17/19 Time of Service: 10:00 Assessment and Plan (1) DKA (diabetic ketoacidoses): Current visit: Yes Status: Acute resolved. now on basal lantus of 70 units daily with sliding scale if needed, blood sugars have been in 100-low 200 range. A1C dec 17, 2018 was 11.1. diabetic education (2) Acute colitis: Current visit: Yes Status: Acute completed cipro/flagyl day 5, diarrhea resolved cdiff negative stool cultures pending. yesterday was experiencing abdominal pain and nausea, plain films concerning for ileus vs SBO. she was placed on clears with improvement in her symptoms overnight, tolerating fluids well. her abdominal exam is improved, with less pain, she continues to have positive bowel sounds but denies passing stool or flatus. will continue clears for now. increase ambulation. (3) DVT prophylaxis: Current visit: No Status: Acute Teds + SCD's (chemical dvt prophylaxis is contraindicated in setting of hem + stools). increase ambulation (4) COPD (chronic obstructive pulmonary disease): Current visit: No Status: Chronic increased cough and wheezing, intermittent oxygen requirements. she states this is baseline for her and that she gets relief from updrafts. will schedule duonebs, continue albuterol prn (5) Essential hypertension: Current visit: No Status: Chronic stable, continue to monitor (6) Discharge planning issues: Current visit: Yes Status: Acute remains a full code at her wishes. she did have palliative consult with Dr Centeno who did complete a COLST form. case management following. there is question of whether she will be able to take care of herself safely at discharge. She is awaiting referral to [facility], hoping for a bed on Monday. Subjective Patient reports: feels better, tolerating liquids well and no bowel movement; denies flatus and bowel movement Interval history since last seen: patient reports abdominal pain improved overnight. tolerating clear well, denies any bm or flatus. still has harsh cough, no fevers. wears oxygen prn which she does at home. states she does have this cough intermittently at home also. no sputum production. asking for diet to be advanced. Exam Const General: cooperative, in distress mild and respiratory and ill appearing (older than states age) chronically Nutritional Appearance: obese Orientation: alert, awake and oriented x3 (poor historian with inconsistent reports) [facility] Head: normal to inspection, normocephalic and atraumatic Mouth: oral mucosae normal (slightly dry, no exudate) Chest Chest: normal inspection of the chest Resp Effort & Inspection: cough Quality of cough: dry (harsh) Auscultation: wheezes expiratory wheezes and scattered wheezes Cardio Jugular venous pressure: no JVD Rate: regular rate Rhythm: regular rhythm GI Inspection: normal to inspection and distended Palpation: soft and tender in the epigastrum, in the LUQ and in the RUQ Auscultation: normal bowel sounds Other: huertas to gravity draining medium yellow urine Skin General skin exam: no rashes or lesions noted Neuro General: alert and awake Extrem General: full ROM and pedal edema present Right upper extremity: edema Left upper extremity: edema Psych Appearance: disheveled Affect: blunted Attitude: cooperative Objective Objective Clinical Data: Abnormal lab results 03/17/19 03/17/19 03/17/19 Range/Units 07:00 07:00 07:00 RBC 3.64 L (4.00-5.20) m/cumm Hgb 10.8 L (12.0-15.5) g/dL Hct 33.3 L (36.0-46.0) % RDW 15.4 H (11.7-14.6) % Absolute Lymphocytes 1.18 L (1.2-3.4) k/cumm Chloride 109 H (98-107) mmol/L BUN 2 L (7-18) mg/dL Glucose 178 H (70-100) mg/dL Lactate (0.6-1.4) mmol/l Magnesium 1.6 L (1.8-2.4) mg/dL Iron 21 L (50-175) ug/dL TIBC 186 L (250-450) ug/dL Transferrin % Sat 11 L (15-50) % AST 13 L (15-37) U/L ALT 11 L (12-78) U/L C-Reactive Protein 3.95 H (0.0-0.3) mg/dL Total Protein 5.0 L (6.4-8.2) g/dL Albumin 2.0 L (3.4-5.0) g/dL 05/26/19 Range/Units 07:00 RBC (4.00-5.20) m/cumm Hgb (12.0-15.5) g/dL Hct (36.0-46.0) % RDW (11.7-14.6) % Absolute Lymphocytes (1.2-3.4) k/cumm Chloride (98-107) mmol/L BUN (7-18) mg/dL Glucose (70-100) mg/dL Lactate 2.0 H (0.6-1.4) mmol/l Magnesium (1.8-2.4) mg/dL Iron (50-175) ug/dL TIBC (250-450) ug/dL Transferrin % Sat (15-50) % AST (15-37) U/L ALT (12-78) U/L C-Reactive Protein (0.0-0.3) mg/dL Total Protein (6.4-8.2) g/dL Albumin (3.4-5.0) g/dL Vital Signs Temperature 37.5 C 03/17/19 07:10 Temperature Source Tympanic 03/17/19 07:10 Pulse 85 03/17/19 07:10 Pulse Rhythm Regular 03/17/19 08:19 Pulse 104 H 03/15/19 19:00 Respiratory Rate 18 03/17/19 07:10 Respiratory Effort Non-Labored 03/17/19 08:19 Respiratory Depth Normal 03/17/19 08:19 Respiratory Pattern Normal 03/17/19 08:19 Blood Pressure 132/77 03/17/19 07:10 Blood Pressure Mean 55 03/15/19 18:01 Blood Pressure Position Sitting 03/14/19 12:10 Pulse Oximetry 95 03/17/19 08:27 Oxygen Delivery Method Room Air 03/17/19 08:27 Oxygen Flow Rate 0 03/17/19 08:27 Pain Level 0 03/17/19 07:10 Intake & Output 03/16/19 03/16/19 03/17/19 11:59 23:59 11:59 Intake Total 2180.000 / 4450.000 2270 / 4450.000 2411.667 / 2411.667 Output Total 1100 / 2500 1400 / 2500 300 / 300 Balance 1080.000 / 1950.000 870 / 9161.182 8803.667 / 2111.667 Weight 95.5 kg Intake: IV 1240.000 / 2540.000 1300 / 2540.000 1031.667 / 1031.667 Oral 940 / 1910 970 / 1910 1380 / 1380 Output: Urine 1100 / 2500 1400 / 2500 300 / 300 Other: Urine Color Light [place] Yellow Yellow Urine Appearance Sediment Sediment Clear Sediment Comment Notified RN Laboratory Results WBC 5.29 k/cumm (4.4-10.8) D 03/17/19 07:00 RBC 3.64 m/cumm (4.00-5.20) L 03/17/19 07:00 Hgb 10.8 g/dL (12.0-15.5) L 03/17/19 07:00 Hct 33.3 % (36.0-46.0) L 03/17/19 07:00 MCV 91.5 fL (80-95) 03/17/19 07:00 MCH 29.7 pg (27.0-33.0) 03/17/19 07:00 MCHC 32.4 g/dL (32.0-36.0) 03/17/19 07:00 RDW 15.4 % (11.7-14.6) H 03/17/19 07:00 Plt Count 279 x1000/uL (130-400) 03/17/19 07:00 MPV 10.7 fL (8.0-11.0) 03/17/19 07:00 Immature Gran % 0.4 03/17/19 07:00 Neutrophils % 57.4 03/17/19 07:00 Lymphocytes % 22.3 03/17/19 07:00 Monocytes % 7.6 03/17/19 07:00 Eosinophils % 11.5 03/17/19 07:00 Basophils % 0.8 03/17/19 07:00 Absolute Neutrophils 3.04 k/cumm (1.2-6.7) 03/17/19 07:00 Absolute Lymphocytes 1.18 k/cumm (1.2-3.4) L 03/17/19 07:00 Absolute Monocytes 0.40 k/cumm (0.11-0.7) 03/17/19 07:00 Absolute Eosinophils 0.61 k/cumm (0.0-0.7) 03/17/19 07:00 Absolute Basophils 0.04 k/cumm (0.0-0.2) 03/17/19 07:00 Sample Site Right radial 03/13/19 09:57 pCO2 33 mmHg (34-47) L 03/13/19 09:57 pO2 93 mmHg (83-108) 03/13/19 09:57 O2 Saturation 98 % (94-98) 03/13/19 09:57 ABG pH 7.33 (7.35-7.45) L 03/13/19 09:57 ABG HCO3 17 mmol/L (22-28) L 03/13/19 09:57 ABG Total CO2 16 mmol/L (22-29) L 03/13/19 09:57 ABG Base Excess -8.8 mmol/L (-3-3) L 03/13/19 09:57 VBG pH 7.34 (7.32-7.43) 03/15/19 08:06 VBG pCO2 33 mm/Hg (34-47) L 03/15/19 08:06 VBG pO2 41 mm/Hg (28-44) 03/15/19 08:06 VBG HCO3 18 mmol/L (22-28) L 03/15/19 08:06 VBG Total CO2 17 mmol/L (22-29) L 03/15/19 08:06 VBG O2 Saturation 81 % (70-80) H 03/15/19 08:06 VBG Base Excess mmol/L (-3-3) 03/15/19 08:06 Oxygen Liter Flow 2 L 03/13/19 09:57 FiO2 Nasal cannula % 03/13/19 09:57 Sodium 141 mmol/L (136-145) 03/17/19 07:00 Potassium 3.5 mmol/L (3.5-5.1) 03/17/19 07:00 Chloride 109 mmol/L (98-107) H 03/17/19 07:00 Carbon Dioxide 22.4 mmol/L (21.0-32.0) 03/17/19 07:00 Anion Gap 9.6 mmol/L (3-11) 03/17/19 07:00 BUN 2 mg/dL (7-18) L 03/17/19 07:00 Creatinine 0.78 mg/dL (0.55-1.02) 03/17/19 07:00 Estimated GFR/1.73 m2 >= 60.00 (mL/min/1.73m2) 03/17/19 07:00 Glucose 178 mg/dL (70-100) H 03/17/19 07:00 Lactate 2.0 mmol/l (0.6-1.4) H 03/17/19 07:00 Calcium 8.5 mg/dL (8.5-10.1) 03/17/19 07:00 Magnesium 1.6 mg/dL (1.8-2.4) L 03/17/19 07:00 Iron 21 ug/dL (50-175) L 03/17/19 07:00 TIBC 186 ug/dL (250-450) L 03/17/19 07:00 Transferrin % Sat 11 % (15-50) L 03/17/19 07:00 Ferritin 84 ng/mL (8-388) 03/17/19 07:00 Total Bilirubin 0.4 mg/dL (0.2-1.0) 03/17/19 07:00 AST 13 U/L (15-37) L 03/17/19 07:00 ALT 11 U/L (12-78) L 03/17/19 07:00 Alkaline Phosphatase 92 U/L (46-116) 03/17/19 07:00 Troponin I 0.03 ng/mL (0.00-0.06) 03/13/19 06:32 C-Reactive Protein 3.95 mg/dL (0.0-0.3) H 03/17/19 07:00 Total Protein 5.0 g/dL (6.4-8.2) L 03/17/19 07:00 Albumin 2.0 g/dL (3.4-5.0) L 03/17/19 07:00 Lipase 293 U/L (73-393) 03/16/19 06:20 TSH 0.80 uIU/mL (0.358-3.74) 03/14/19 06:25 Thyroxine (T4) 5.3 ug/dL (4.5-12.5) 03/14/19 06:25 Urine Color Straw (Yellow) 03/12/19 18:44 Urine Clarity Clear 03/12/19 18:44 Urine pH 5.0 (5-8) 03/12/19 18:44 Ur Specific [place] 1.010 (1.005-1.025) 03/12/19 18:44 Urine Protein Trace mg/dL (Negative) H 03/12/19 18:44 Urine Ketones >=160 mg/dL (Negative) H 03/12/19 18:44 Urine Blood Trace-intact (Negative) H 03/12/19 18:44 Urine Nitrite Negative (Negative) 03/12/19 18:44 Urine Bilirubin Small (Negative) H 03/12/19 18:44 Urine Urobilinogen 0.2 EU/dL (Up TO 0.2) 03/12/19 18:44 Ur Leukocyte Esterase Negative (Negative) 03/12/19 18:44 Urine RBC Negative (0-2) 03/12/19 18:44 Urine WBC Negative HPF (0-5) 03/12/19 18:44 Ur Epithelial Cells Negative HPF (Negative) 03/12/19 18:44 Urine Crystals Few amorphous HPF (Negative) 03/12/19 18:44 Urine Bacteria Negative HPF (Negative) 03/12/19 18:44 Urine Casts Negative LPF (Negative) 03/12/19 18:44 Urine Mucus Negative (Negative) 03/12/19 18:44 Urine Other Negative (Negative) 03/12/19 18:44 Ur Culture Indicated? No 03/12/19 18:44 Urine Glucose 500 mg/dL (Negative) H 03/12/19 18:44 Stl C.difficile Tox PCR Negative 03/13/19 11:45 C.difficile Tox Source Feces 03/13/19 11:45
--- NOTE | 2019-03-17 13:02 | PDOC.CMPRO ---
- If Service Date Differs Date of service: 03/17/19 Time of Service: 13:02 Care Management Progress Note S/O:Elly is receiving care as an acute patient. She is having loose stools her antibiotics have been stopped. She is incontinent of her bowels, review of chart she is independent with ADL's at home unsure of why she is incontinent while inpatient. PT is recomedned a SNF placement she was attending [facility] in the past however stopped going. Elly agrees that should go to SNF for a short time until she recovers from acute hospitalization. Elly requested a referral [facility] which CM completed on Monday. [facility] is reviewing referral for a possible admission on Monday. She is now out of ICU and on the Medical unit. A: 68 year old female admitted to [facility] 03/12/19 for DKA P: Anticipate she will be ready for discharge in the next 48 hours. She will not be able to transition to SNF level of care over the weekend which will delay her discharge. Anticipate she will transport to [facility] once there is a bed offer via W/C van.
--- NOTE | 2019-03-17 13:09 | CMPROGNOTE_ITS ---
- If Service Date Differs Date of service: 03/17/19 Time of Service: 13:02 Care Management Progress Note S/O:Elly is receiving care as an acute patient. She is having loose stools her antibiotics have been stopped. She is incontinent of her bowels, review of chart she is independent with ADL's at home unsure of why she is incontinent while inpatient. PT is recomedned a SNF placement she was attending [facility] in the past however stopped going. Elly agrees that should go to SNF for a short time until she recovers from acute hospitalization. Elly requested a referral to [facility] which CM completed on Monday. [facility] is reviewing referral for a possible admission on Monday. She is now out of ICU and on the Medical unit. A: 68 year old female admitted to [facility] 03/12/19 for DKA P: Anticipate she will be ready for discharge in the next 48 hours. She will not be able to transition to SNF level of care over the weekend which will delay her discharge. Anticipate she will transport to [facility] once there is a bed offer via W/C van.
--- NOTE | 2019-03-17 14:14 | PT.INTREAT ---
Date of service: 03/17/19 Time of Service: 10:30 PT Notes Inpatient Physical Therapy Treatment Note [facility] Date: 03/17/19 PRECAUTIONS:Fall and standard SUBJECTIVE: Indicated she is able to try to walk today. OBJECTIVE: PAIN: Still not feeling great but better than yesterday. Not having as bad stomach irritation like yesterday. BED MOBILITY/TRANSFERS Supine-sit: HOB at 30 degrees with SBA Sit-stand: SBA Stand-sit: SBA GAIT Assistive Device: FWW Weight bearing: Full Assist: CGA of 2 Distance: 13 ft bed to chair THEREX: Performed AP, LAQs, and seated hip abd/ adduction x 10 - 20 reps each. We discussed the importance of trying to keep her arms and legs moving as much as possible while in bed to avoid atrophy of muscles. ASSESSMENT: Fatigues easily. PLAN: Continue to focus on improved ambulation distance and strengthening for ADL function. TREATMENT CODE/TIME: 10:30 to 10:50 (20'), 04221 (SHILOH)
--- NOTE | 2019-03-17 16:14 | W.PM.PROGNOT ---
Date of Service Date of service: 03/17/19 Time of Service: 16:15 Assessment and Plan (1) Metabolic acidosis with normal anion gap and bicarbonate losses: Current visit: Yes Status: Acute (2) Abdominal pain: Current visit: Yes Status: Acute Unclear if this is truly an SBO or ileus from pt being in bed from DKA. could have had a partial SBO and that contributed to the DKA. Pt is yaya cl liq and had a BM today. Less pain today. xray is slt improved. I do not feel that there is an infectious component or ischemia involved. cont supportive care cont PPI Advance diet in am 03/18. don't feel pt requires any endo at this time. I would cont to treat for gastritis. Could use H2 imer if there is concern for renal status will follow Subjective Patient reports: feels better, pain is less, tolerating liquids well, bowel movement, diarrhea and afebrile; denies nausea and vomiting Interval history since last seen: Pt is doing better today. no headaches. No CP or SOB. non- productive cough. no dysuria. No N/v per Rn and tolerating cl liq. Lg liquid BM. No blood. pain is less today. abx stopped and huertas is out. pt up walking today. results of labs and exrays reviewed personally Exam Const General: cooperative, healthy appearing, comfortable, no acute distress, well developed and well groomed Nutritional Appearance: average body habitus and well nourished Orientation: alert, awake and oriented x3 Other: afeb HENMT Head: normal to inspection, normocephalic and atraumatic Ears: hearing grossly normal bilaterally and external ears normal General nose exam: external nose normal Face and sinus: normal facial exam and sinuses nontender Mouth: oral mucosae normal, lip normal, tongue normal and moist mucous membranes Teeth and gingiva: dentition normal Eyes General: appearance normal, both eyes and all related structures Conjunctivae: conjunctivae normal Sclera: sclerae normal Pupils: PERRL Neck Neck: normal visual inspection and full ROM Chest Chest: normal inspection of the chest Resp Effort & Inspection: normal respiratory effort, able to speak in complete sentences, no cough, no nasal flaring, not tachypneic and no use of accessory muscles Auscultation: clear to auscultation bilaterally, no rales, no rhonchi and no wheezes Cardio Jugular venous pressure: no JVD Rate: regular rate Rhythm: regular rhythm GI Inspection: normal to inspection, no edema and non-distended Palpation: soft, no masses, nontender and No ascites Auscultation: normal bowel sounds Other: + BS. minimal pain. pt says it is mostly under her scar (from her open GB) Skin General skin exam: no rashes or lesions noted Trauma: no lacerations or abrasions Neuro General: alert, oriented x3, oriented, gait normal, moves all extremities, no focal motor deficits and CN's II-XI intact bilaterally Cognition: normal cognition Speech: speech normal Gait: normal gait Motor: muscle tone normal throughout Extrem General: normal to inspection, full ROM and no clubbing, cyanosis or edema Psych Appearance: grossly normal and well kempt Mental Status: mental status grossly normal Speech and Movement: speech and movement normal Affect: normal affect Objective Objective Clinical Data: Abnormal lab results 03/17/19 03/17/19 03/17/19 Range/Units 07:00 07:00 07:00 RBC 3.64 L (4.00-5.20) m/cumm Hgb 10.8 L (12.0-15.5) g/dL Hct 33.3 L (36.0-46.0) % RDW 15.4 H (11.7-14.6) % Absolute Lymphocytes 1.18 L (1.2-3.4) k/cumm Chloride 109 H (98-107) mmol/L BUN 2 L (7-18) mg/dL Glucose 178 H (70-100) mg/dL Lactate (0.6-1.4) mmol/l Magnesium 1.6 L (1.8-2.4) mg/dL Iron 21 L (50-175) ug/dL TIBC 186 L (250-450) ug/dL Transferrin % Sat 11 L (15-50) % AST 13 L (15-37) U/L ALT 11 L (12-78) U/L C-Reactive Protein 3.95 H (0.0-0.3) mg/dL Total Protein 5.0 L (6.4-8.2) g/dL Albumin 2.0 L (3.4-5.0) g/dL 03/17/19 Range/Units 07:00 RBC (4.00-5.20) m/cumm Hgb (12.0-15.5) g/dL Hct (36.0-46.0) % RDW (11.7-14.6) % Absolute Lymphocytes (1.2-3.4) k/cumm Chloride (98-107) mmol/L BUN (7-18) mg/dL Glucose (70-100) mg/dL Lactate 2.0 H (0.6-1.4) mmol/l Magnesium (1.8-2.4) mg/dL Iron (50-175) ug/dL TIBC (250-450) ug/dL Transferrin % Sat (15-50) % AST (15-37) U/L ALT (12-78) U/L C-Reactive Protein (0.0-0.3) mg/dL Total Protein (6.4-8.2) g/dL Albumin (3.4-5.0) g/dL Vital Signs Temperature 37.4 C 03/17/19 15:16 Temperature Source Tympanic 03/17/19 15:16 Pulse 89 03/17/19 15:16 Pulse Rhythm Regular 03/17/19 08:19 Pulse 104 H 03/15/19 19:00 Respiratory Rate 22 03/17/19 15:16 Respiratory Effort Non-Labored 03/17/19 08:19 Respiratory Depth Normal 03/17/19 08:19 Respiratory Pattern Normal 03/17/19 08:19 Blood Pressure 116/76 03/17/19 15:16 Blood Pressure Mean 55 03/15/19 18:01 Blood Pressure Position Sitting 03/14/19 12:10 Pulse Oximetry 100 03/17/19 15:16 Oxygen Delivery Method Nasal Cannula 03/17/19 15:16 Oxygen Flow Rate 2 03/17/19 15:16 Pain Level 0 03/17/19 07:10 Intake & Output 03/16/19 03/17/19 03/17/19 23:59 11:59 23:59 Intake Total 2270 / 4450.000 2693.334 / 3543.334 850 / 3543.334 Output Total 1400 / 2500 300 / 1050 750 / 1050 Balance 870 / 7121.736 7755.334 / 2493.334 100 / 2493.334 Intake: IV 1300 / 2540.000 1313.334 / 1413.334 100 / 1413.334 Oral 970 / 1910 1380 / 2130 750 / 2130 Output: Urine 1400 / 2500 300 / 1050 750 / 1050 Other: Urine Color Yellow Yellow Yellow Urine Appearance Sediment Clear Sediment Stool Size Moderate Stool Characteristics Soft Voiding Methods Bedside Commode Incontinent Laboratory Results WBC 5.29 k/cumm (4.4-10.8) D 03/17/19 07:00 RBC 3.64 m/cumm (4.00-5.20) L 03/17/19 07:00 Hgb 10.8 g/dL (12.0-15.5) L 03/17/19 07:00 Hct 33.3 % (36.0-46.0) L 03/17/19 07:00 MCV 91.5 fL (80-95) 03/17/19 07:00 MCH 29.7 pg (27.0-33.0) 03/17/19 07:00 MCHC 32.4 g/dL (32.0-36.0) 03/17/19 07:00 RDW 15.4 % (11.7-14.6) H 03/17/19 07:00 Plt Count 279 x1000/uL (130-400) 03/17/19 07:00 MPV 10.7 fL (8.0-11.0) 03/17/19 07:00 Immature Gran % 0.4 03/17/19 07:00 Neutrophils % 57.4 03/17/19 07:00 Lymphocytes % 22.3 03/17/19 07:00 Monocytes % 7.6 03/17/19 07:00 Eosinophils % 11.5 03/17/19 07:00 Basophils % 0.8 03/17/19 07:00 Absolute Neutrophils 3.04 k/cumm (1.2-6.7) 03/17/19 07:00 Absolute Lymphocytes 1.18 k/cumm (1.2-3.4) L 03/17/19 07:00 Absolute Monocytes 0.40 k/cumm (0.11-0.7) 03/17/19 07:00 Absolute Eosinophils 0.61 k/cumm (0.0-0.7) 03/17/19 07:00 Absolute Basophils 0.04 k/cumm (0.0-0.2) 03/17/19 07:00 Sample Site Right radial 03/13/19 09:57 pCO2 33 mmHg (34-47) L 03/13/19 09:57 pO2 93 mmHg (83-108) 03/13/19 09:57 O2 Saturation 98 % (94-98) 03/13/19 09:57 ABG pH 7.33 (7.35-7.45) L 03/13/19 09:57 ABG HCO3 17 mmol/L (22-28) L 03/13/19 09:57 ABG Total CO2 16 mmol/L (22-29) L 03/13/19 09:57 ABG Base Excess -8.8 mmol/L (-3-3) L 03/13/19 09:57 VBG pH 7.34 (7.32-7.43) 03/15/19 08:06 VBG pCO2 33 mm/Hg (34-47) L 03/15/19 08:06 VBG pO2 41 mm/Hg (28-44) 03/15/19 08:06 VBG HCO3 18 mmol/L (22-28) L 03/15/19 08:06 VBG Total CO2 17 mmol/L (22-29) L 03/15/19 08:06 VBG O2 Saturation 81 % (70-80) H 03/15/19 08:06 VBG Base Excess mmol/L (-3-3) 03/15/19 08:06 Oxygen Liter Flow 2 L 03/13/19 09:57 FiO2 Nasal cannula % 03/13/19 09:57 Sodium 141 mmol/L (136-145) 03/17/19 07:00 Potassium 3.5 mmol/L (3.5-5.1) 03/17/19 07:00 Chloride 109 mmol/L (98-107) H 03/17/19 07:00 Carbon Dioxide 22.4 mmol/L (21.0-32.0) 03/17/19 07:00 Anion Gap 9.6 mmol/L (3-11) 03/17/19 07:00 BUN 2 mg/dL (7-18) L 03/17/19 07:00 Creatinine 0.78 mg/dL (0.55-1.02) 03/17/19 07:00 Estimated GFR/1.73 m2 >= 60.00 (mL/min/1.73m2) 03/17/19 07:00 Glucose 178 mg/dL (70-100) H 03/17/19 07:00 Lactate 2.0 mmol/l (0.6-1.4) H 03/17/19 07:00 Calcium 8.5 mg/dL (8.5-10.1) 03/17/19 07:00 Magnesium 1.6 mg/dL (1.8-2.4) L 03/17/19 07:00 Iron 21 ug/dL (50-175) L 03/17/19 07:00 TIBC 186 ug/dL (250-450) L 03/17/19 07:00 Transferrin % Sat 11 % (15-50) L 03/17/19 07:00 Ferritin 84 ng/mL (8-388) 03/17/19 07:00 Total Bilirubin 0.4 mg/dL (0.2-1.0) 03/17/19 07:00 AST 13 U/L (15-37) L 03/17/19 07:00 ALT 11 U/L (12-78) L 03/17/19 07:00 Alkaline Phosphatase 92 U/L (46-116) 03/17/19 07:00 Troponin I 0.03 ng/mL (0.00-0.06) 03/13/19 06:32 C-Reactive Protein 3.95 mg/dL (0.0-0.3) H 03/17/19 07:00 Total Protein 5.0 g/dL (6.4-8.2) L 03/17/19 07:00 Albumin 2.0 g/dL (3.4-5.0) L 03/17/19 07:00 Lipase 293 U/L (73-393) 03/16/19 06:20 TSH 0.80 uIU/mL (0.358-3.74) 03/14/19 06:25 Thyroxine (T4) 5.3 ug/dL (4.5-12.5) 03/14/19 06:25 Urine Color Straw (Yellow) 03/12/19 18:44 Urine Clarity Clear 03/12/19 18:44 Urine pH 5.0 (5-8) 03/12/19 18:44 Ur Specific [place] 1.010 (1.005-1.025) 03/12/19 18:44 Urine Protein Trace mg/dL (Negative) H 03/12/19 18:44 Urine Ketones >=160 mg/dL (Negative) H 03/12/19 18:44 Urine Blood Trace-intact (Negative) H 03/12/19 18:44 Urine Nitrite Negative (Negative) 03/12/19 18:44 Urine Bilirubin Small (Negative) H 03/12/19 18:44 Urine Urobilinogen 0.2 EU/dL (Up TO 0.2) 03/12/19 18:44 Ur Leukocyte Esterase Negative (Negative) 03/12/19 18:44 Urine RBC Negative (0-2) 03/12/19 18:44 Urine WBC Negative HPF (0-5) 03/12/19 18:44 Ur Epithelial Cells Negative HPF (Negative) 03/12/19 18:44 Urine Crystals Few amorphous HPF (Negative) 03/12/19 18:44 Urine Bacteria Negative HPF (Negative) 03/12/19 18:44 Urine Casts Negative LPF (Negative) 03/12/19 18:44 Urine Mucus Negative (Negative) 03/12/19 18:44 Urine Other Negative (Negative) 03/12/19 18:44 Ur Culture Indicated? No 03/12/19 18:44 Urine Glucose 500 mg/dL (Negative) H 03/12/19 18:44 Stl C.difficile Tox PCR Negative 03/13/19 11:45 C.difficile Tox Source Feces 03/13/19 11:45
--- NOTE | 2019-03-17 22:48 | NUR.NOTE ---
Pt had a bout of coughing spells and vomited x 1 yellowish secretions. Charge nurse informed.
[2019-03-18] VITALS (9 sets, daily range): BP systolic 98–122; BP diastolic 51–76; PULSE 92–106; RESP 16–20; TEMP 36.4–37.4; O2SAT 92–98
[2019-03-18] MEDS: Albuterol 2.5 MG/3 ML INH SOLN VIAL IH ×2 (05:12→14:15)
[2019-03-18 07:11] LABS: Abs Immature Grans 0.01 k/cumm (0.0-0.09); Absolute Basophil Count 0.04 k/cumm (0.0-0.2); Absolute Eosinophil Count 0.73 k/cumm (0.0-0.7); Absolute Lymphocyte Count 1.48 k/cumm (1.2-3.4); Absolute Monocyte Count 0.53 k/cumm (0.11-0.7); Absolute Neutrophil Count 2.74 k/cumm (1.2-6.7); Basophils % 0.7; Eosinophils % 13.2; HCT 34.2 % (36.0-46.0); HGB 11.1 g/dL (12.0-15.5); Immature Grans % 0.2; Lymphocytes % 26.8; Mean Corp. HGB Concentration 32.5 g/dL (32.0-36.0); Mean Corpuscular Hemoglobin 29.9 pg (27.0-33.0); Mean Corpuscular Volume 92.2 fL (80-95); Mean Platelet Volume 10.3 fL (8.0-11.0); Monocytes % 9.6; Neutrophils % 49.5; Platelet Count 325 x1000/uL (130-400); RBC 3.71 m/cumm (4.00-5.20); RBC Distribution Width 15.7 % (11.7-14.6); White Blood Cell Count 5.53 k/cumm (4.4-10.8)
[2019-03-18 07:12] LABS: Magnesium 1.5 mg/dL (1.8-2.4)
--- NOTE | 2019-03-18 08:00 | DI.RAD_ITS ---
SYMPTOMS/DIAGNOSIS: ABD PAIN, SBO FLAT AND UPRIGHT ABDOMEN at 7:57 am: There are again seen mildly dilated loops of small bowel in the central abdomen. There are again seen mildly dilated loops of small bowel in the central abdomen. There is air noted within the colon. No organomegaly or pneumoperitoneum is seen. IMPRESSION: Stable appearance of the abdomen. The findings may represent ileus or early small bowel obstruction. Follow up as clinically appropriate.
[2019-03-18 08:33] LABS: Anion Gap 9.9 mmol/L (3-11); BUN 2 mg/dL (7-18); CO2 24.1 mmol/L (21.0-32.0); Calcium 8.8 mg/dL (8.5-10.1); Chloride 108 mmol/L (98-107); Glucose 126 mg/dL (70-100); Potassium 3.5 mmol/L (3.5-5.1); Sodium 142 mmol/L (136-145)
--- NOTE | 2019-03-18 08:47 | DI.VRAD_ITS ---
EXAM: XR Abdomen, 2 Views EXAM DATE/TIME: 03/18/2019 8:05 AM CLINICAL HISTORY: 68 years old, female; Signs and symptoms; Other: Abdom pain/sbo TECHNIQUE: Imaging protocol: Frontal view of the abdomen/pelvis with upright view of the abdomen. COMPARISON: CR XR abdomen flat upright 03/17/2019 7:53 AM FINDINGS: Gastrointestinal tract: Dilated loops of small bowel in the central abdomen measure up to 3.6 cm with a relatively collapsed appearance of distal loops. Gas is noted in the colon. Consider an early small bowel obstruction. Intraperitoneal space: Normal. No free air. Bones/joints: Unremarkable for age. IMPRESSION: Dilated loops of small bowel in the central abdomen measure up to 3.6 cm with a relatively collapsed appearance of distal loops. Gas is noted in the colon. Consider an early small bowel obstruction. Dictated and Authenticated by: Jason Werner MD. Ordering:NEGRA Lu MD
[2019-03-18] MEDS: Albuterol/Ipratropium 3 ML UPD VIAL UPD ×4 (09:03→19:35)
[2019-03-18] MEDS: Budesonide/Formoterol 160/4.5 6 GM 60 PUFF INH IH ×2 (09:05→19:37)
--- NOTE | 2019-03-18 10:09 | W.PM.PROGNOT ---
Date of Service Date of service: 03/18/19 Time of Service: 10:10 Assessment and Plan (1) DKA (diabetic ketoacidoses): Start date: 03/18/19 Start time: 10:34 Current visit: Yes Status: Acute Resolved, currently on lantus 70 units daily. SSI as needed. Glucose by labs 126 this am. (2) Acute colitis: Start date: 03/18/19 Start time: 10:35 Current visit: Yes Status: Acute Tolerating clears. No nausea today, abdominal pain improved. BM this am. BSx 4 quads normoactive. Abdominal xray this am revealing Dilated loops of small bowel in the central abdomen measure up to 3.6 cm with a relatively collapsed appearance of distal loops. Gas is noted in the colon. Consider an early small bowel obstruction. Surgery following patient. Increase ambulation to QID (3) Palliative care patient: Start date: 03/18/19 Start time: 10:38 Current visit: Yes Status: Chronic Followed by Dr. Centeno, COLST form signed. (4) COPD (chronic obstructive pulmonary disease): Start date: 03/18/19 Start time: 10:39 Current visit: No Status: Chronic Requires oxygen 2 L prn. Cough which patient attributes to having all the time. Lung sounds clear diminished today. Increase ambulation.Continue updrafts, albuterol prn, duonebs. (5) DVT prophylaxis: Start date: 03/18/19 Start time: 10:44 Current visit: No Status: Acute TEDS, SCD, patient had heme + stools. Subjective Patient reports: no new complaints and feels better Interval history since last seen: feeling better, no nausea, vomiting. BM this am. Tolerating clear diet. Having a harsh cough, afebrile. Oxygen PRN from home. Encourage ambulation four times a day. Will continue to monitor. Mag was 1.6 this am, placed on slo-mag TID. Exam Narrative Exam Narrative: Cooperative older appearing than stated age female wearing 2 L oxygen sitting up in bed. Const General: cooperative, no acute distress and disheveled Neck Neck: normal visual inspection Lymphatic: no lymphadenopathy noted and no lymphedema noted Chest Chest: normal inspection of the chest Resp Effort & Inspection: able to speak in complete sentences and cough Auscultation: clear to auscultation bilaterally and diminished lung sounds Other: requiring oxygen 2 Liters PRN for SOB. Cardio Jugular venous pressure: no JVD Rate: regular rate Rhythm: regular rhythm Heart Sounds: S1 normal and S2 normal GI Palpation: soft and tender Auscultation: normal bowel sounds Skin General skin exam: ecchymosis and other (blisters to forearm on RUE patient states IV tape was there) Neuro General: alert, awake and oriented x3 Extrem Right lower extremity: edema Left lower extremity: edema Other: generalized edema nonpitting Objective Objective Clinical Data: Abnormal lab results 03/18/19 03/18/19 Range/Units 06:35 06:35 RBC 3.71 L (4.00-5.20) m/cumm Hgb 11.1 L (12.0-15.5) g/dL Hct 34.2 L (36.0-46.0) % RDW 15.7 H (11.7-14.6) % Absolute Eosinophils 0.73 H (0.0-0.7) k/cumm Chloride 108 H (98-107) mmol/L BUN 2 L (7-18) mg/dL Glucose 126 H (70-100) mg/dL Magnesium 1.5 L (1.8-2.4) mg/dL Vital Signs Temperature 37.4 C 03/18/19 07:10 Temperature Source Tympanic 03/18/19 07:10 Pulse 92 H 03/18/19 07:10 Pulse Rhythm Regular 03/17/19 21:12 Pulse 104 H 03/15/19 19:00 Respiratory Rate 18 03/18/19 07:10 Respiratory Effort Non-Labored 03/17/19 21:12 Respiratory Depth Normal 03/17/19 21:12 Respiratory Pattern Normal 03/17/19 21:12 Blood Pressure 110/66 03/18/19 07:10 Blood Pressure Mean 55 03/15/19 18:01 Blood Pressure Position Sitting 03/14/19 12:10 Pulse Oximetry 97 03/18/19 07:10 Oxygen Delivery Method Nasal Cannula 03/18/19 07:10 Oxygen Flow Rate 2 03/18/19 07:10 Pain Level 0 03/18/19 03:30 Comment 03/18/19 03:30 Intake & Output 03/17/19 03/17/19 03/18/19 11:59 23:59 11:59 Intake Total 6043.334 / 4223.334 1530 / 4223.334 850 / 850 Output Total 300 / 1050 750 / 1050 1200 / 1200 Balance 2393.334 / 3173.334 780 / 3173.334 -350 / -350 Weight 96 kg Intake: IV 1313.334 / 1413.334 100 / 1413.334 Oral 1380 / 2810 1430 / 2810 850 / 850 Output: Urine 300 / 1050 750 / 1050 1200 / 1200 Other: Urine Color Yellow Pale Yellow Yellow Urine Appearance Clear Clear Clear Sediment Urine Odor None Normal Stool Size Moderate Stool Characteristics Soft Voiding Methods Bedside Commode Bedside Commode Laboratory Results WBC 5.53 k/cumm (4.4-10.8) 03/18/19 06:35 RBC 3.71 m/cumm (4.00-5.20) L 03/18/19 06:35 Hgb 11.1 g/dL (12.0-15.5) L 03/18/19 06:35 Hct 34.2 % (36.0-46.0) L 03/18/19 06:35 MCV 92.2 fL (80-95) 03/18/19 06:35 MCH 29.9 pg (27.0-33.0) 03/18/19 06:35 MCHC 32.5 g/dL (32.0-36.0) 03/18/19 06:35 RDW 15.7 % (11.7-14.6) H 03/18/19 06:35 Plt Count 325 x1000/uL (130-400) 03/18/19 06:35 MPV 10.3 fL (8.0-11.0) 03/18/19 06:35 Immature Gran % 0.2 03/18/19 06:35 Neutrophils % 49.5 03/18/19 06:35 Lymphocytes % 26.8 03/18/19 06:35 Monocytes % 9.6 03/18/19 06:35 Eosinophils % 13.2 03/18/19 06:35 Basophils % 0.7 03/18/19 06:35 Absolute Neutrophils 2.74 k/cumm (1.2-6.7) 03/18/19 06:35 Absolute Lymphocytes 1.48 k/cumm (1.2-3.4) 03/18/19 06:35 Absolute Monocytes 0.53 k/cumm (0.11-0.7) 03/18/19 06:35 Absolute Eosinophils 0.73 k/cumm (0.0-0.7) H 03/18/19 06:35 Absolute Basophils 0.04 k/cumm (0.0-0.2) 03/18/19 06:35 Sample Site Right radial 03/13/19 09:57 pCO2 33 mmHg (34-47) L 03/13/19 09:57 pO2 93 mmHg (83-108) 03/13/19 09:57 O2 Saturation 98 % (94-98) 03/13/19 09:57 ABG pH 7.33 (7.35-7.45) L 03/13/19 09:57 ABG HCO3 17 mmol/L (22-28) L 03/13/19 09:57 ABG Total CO2 16 mmol/L (22-29) L 03/13/19 09:57 ABG Base Excess -8.8 mmol/L (-3-3) L 03/13/19 09:57 VBG pH 7.34 (7.32-7.43) 03/15/19 08:06 VBG pCO2 33 mm/Hg (34-47) L 03/15/19 08:06 VBG pO2 41 mm/Hg (28-44) 03/15/19 08:06 VBG HCO3 18 mmol/L (22-28) L 03/15/19 08:06 VBG Total CO2 17 mmol/L (22-29) L 03/15/19 08:06 VBG O2 Saturation 81 % (70-80) H 03/15/19 08:06 VBG Base Excess mmol/L (-3-3) 03/15/19 08:06 Oxygen Liter Flow 2 L 03/13/19 09:57 FiO2 Nasal cannula % 03/13/19 09:57 Sodium 142 mmol/L (136-145) 03/18/19 06:35 Potassium 3.5 mmol/L (3.5-5.1) 03/18/19 06:35 Chloride 108 mmol/L (98-107) H 03/18/19 06:35 Carbon Dioxide 24.1 mmol/L (21.0-32.0) 03/18/19 06:35 Anion Gap 9.9 mmol/L (3-11) 03/18/19 06:35 BUN 2 mg/dL (7-18) L 03/18/19 06:35 Creatinine 0.90 mg/dL (0.55-1.02) 03/18/19 06:35 Estimated GFR/1.73 m2 >= 60.00 (mL/min/1.73m2) 03/18/19 06:35 Glucose 126 mg/dL (70-100) H 03/18/19 06:35 Lactate 2.0 mmol/l (0.6-1.4) H 03/17/19 07:00 Calcium 8.8 mg/dL (8.5-10.1) 03/18/19 06:35 Magnesium 1.5 mg/dL (1.8-2.4) L 03/18/19 06:35 Iron 21 ug/dL (50-175) L 03/17/19 07:00 TIBC 186 ug/dL (250-450) L 03/17/19 07:00 Transferrin % Sat 11 % (15-50) L 03/17/19 07:00 Ferritin 84 ng/mL (8-388) 03/17/19 07:00 Total Bilirubin 0.4 mg/dL (0.2-1.0) 03/17/19 07:00 AST 13 U/L (15-37) L 03/17/19 07:00 ALT 11 U/L (12-78) L 03/17/19 07:00 Alkaline Phosphatase 92 U/L (46-116) 03/17/19 07:00 Troponin I 0.03 ng/mL (0.00-0.06) 03/13/19 06:32 C-Reactive Protein 3.95 mg/dL (0.0-0.3) H 03/17/19 07:00 Total Protein 5.0 g/dL (6.4-8.2) L 03/17/19 07:00 Albumin 2.0 g/dL (3.4-5.0) L 03/17/19 07:00 Lipase 293 U/L (73-393) 03/16/19 06:20 TSH 0.80 uIU/mL (0.358-3.74) 03/14/19 06:25 Thyroxine (T4) 5.3 ug/dL (4.5-12.5) 03/14/19 06:25 Urine Color Straw (Yellow) 03/12/19 18:44 Urine Clarity Clear 03/12/19 18:44 Urine pH 5.0 (5-8) 03/12/19 18:44 Ur Specific [place] 1.010 (1.005-1.025) 03/12/19 18:44 Urine Protein Trace mg/dL (Negative) H 03/12/19 18:44 Urine Ketones >=160 mg/dL (Negative) H 03/12/19 18:44 Urine Blood Trace-intact (Negative) H 03/12/19 18:44 Urine Nitrite Negative (Negative) 03/12/19 18:44 Urine Bilirubin Small (Negative) H 03/12/19 18:44 Urine Urobilinogen 0.2 EU/dL (Up TO 0.2) 03/12/19 18:44 Ur Leukocyte Esterase Negative (Negative) 03/12/19 18:44 Urine RBC Negative (0-2) 03/12/19 18:44 Urine WBC Negative HPF (0-5) 03/12/19 18:44 Ur Epithelial Cells Negative HPF (Negative) 03/12/19 18:44 Urine Crystals Few amorphous HPF (Negative) 03/12/19 18:44 Urine Bacteria Negative HPF (Negative) 03/12/19 18:44 Urine Casts Negative LPF (Negative) 03/12/19 18:44 Urine Mucus Negative (Negative) 03/12/19 18:44 Urine Other Negative (Negative) 03/12/19 18:44 Ur Culture Indicated? No 03/12/19 18:44 Urine Glucose 500 mg/dL (Negative) H 03/12/19 18:44 Stl C.difficile Tox PCR Negative 03/13/19 11:45 C.difficile Tox Source Feces 03/13/19 11:45
[2019-03-18] MEDS: Insulin Aspart 300 UNITS/3 ML PEN 10 UNITS SC ×2 (10:11→12:28)
[2019-03-18] MEDS: Potassium Chloride 20 MEQ TABCR 40 MEQ PO (10:25)
[2019-03-18] MEDS: Sucralfate 1 GM TAB PO ×4 (10:26→22:18)
[2019-03-18] MEDS: Ferrous Sulfate 325 MG TAB PO ×2 (10:26→22:18)
[2019-03-18] MEDS: Lactobacillus Acidophilus CAP 1 CAP PO ×3 (10:27→19:35)
[2019-03-18] MEDS: Magnesium Chloride 64 MG TABCR PO ×3 (10:27→19:36)
[2019-03-18] MEDS: Enoxaparin 40 MG/0.4 ML SYR SC (10:27)
[2019-03-18] MEDS: Pantoprazole 40 MG TABCR PO ×2 (10:27→19:36)
[2019-03-18] MEDS: Nystatin POWDER 60 GM JAR TP ×3 (10:30→19:36)
[2019-03-18] MEDS: Insulin Glargine 300 UNITS/3 ML PEN 70 UNITS SC (10:34)
--- NOTE | 2019-03-18 10:51 | PDOC.CMPRO ---
- If Service Date Differs Date of service: 03/18/19 Time of Service: 10:51 Care Management Progress Note S/O:Elly is receiving care as an acute patient.She is alert and engaged with CM during assessment today. Elly asked appropriate questions related to SNF facility including PT services and if she can bring clothing. CM reviewed clothing list and she will have her brother bring in some comfortable clothes she can wear during PT. Elly is hopeful she will need to only be at the rehab for two weeks and then return home. A: 68 year old female admitted to [facility] 03/12/19 for DKA P: Anticipate Elly will be ready for discharge on Monday. Referral is being reviewed [facility] awaiting a bed offer. She will not be able to transition to SNF level of care over the weekend or holiday which will delay her discharge. Anticipate she will transport to [facility] once there is a bed offer via W/C van.
--- NOTE | 2019-03-18 10:55 | CMPROGNOTE_ITS ---
- If Service Date Differs Date of service: 03/18/19 Time of Service: 10:51 Care Management Progress Note S/O:Elly is receiving care as an acute patient.She is alert and engaged with CM during assessment today. Elly asked appropriate questions related to SNF facility including PT services and if she can bring clothing. CM reviewed clothing list and she will have her brother bring in some comfortable clothes she can wear during PT. Elly is hopeful she will need to only be at the rehab for two weeks and then return home. A: 68 year old female admitted to [facility] 03/12/19 for DKA P: Anticipate Elly will be ready for discharge on Monday. Referral is being reviewed by [facility] awaiting a bed offer. She will not be able to transition to SNF level of care over the weekend or holiday which will delay her discharge. Anticipate she will transport to [facility] once there is a bed offer via W/C van.
--- NOTE | 2019-03-18 11:47 | W.PM.PROGNOT ---
Date of Service Date of service: 03/18/19 Time of Service: 11:47 Assessment and Plan (1) Ileus: Current visit: Yes Status: Acute A\\ 68 year old admitted with ketoacidosis and abdominal pain Ileus vs PSBO XRAY maybe a little better. Some loops of bowel still dilated at 3.2 cm Passing flatus and having BM's P\\ Continue clears for now. May advance to full liquids tonight and if tolerates that may advance to a soft, low fiber diet Subjective Interval history since last seen: Doing well. Mild abdominal pain, but better. + flatus and BM Exam GI Inspection: normal to inspection Palpation: soft, no hepatosplenomegaly and tender (mild Left flank) Auscultation: normoactive bowel sounds Objective Objective Clinical Data: Abnormal lab results 03/18/19 03/18/19 Range/Units 06:35 06:35 RBC 3.71 L (4.00-5.20) m/cumm Hgb 11.1 L (12.0-15.5) g/dL Hct 34.2 L (36.0-46.0) % RDW 15.7 H (11.7-14.6) % Absolute Eosinophils 0.73 H (0.0-0.7) k/cumm Chloride 108 H (98-107) mmol/L BUN 2 L (7-18) mg/dL Glucose 126 H (70-100) mg/dL Magnesium 1.5 L (1.8-2.4) mg/dL Vital Signs Temperature 99.3 F 03/18/19 07:10 Temperature Source Tympanic 03/18/19 07:10 Pulse 92 H 03/18/19 07:10 Pulse Rhythm Regular 03/17/19 21:12 Pulse 104 H 03/15/19 19:00 Respiratory Rate 18 03/18/19 07:10 Respiratory Effort Non-Labored 03/17/19 21:12 Respiratory Depth Normal 03/17/19 21:12 Respiratory Pattern Normal 03/17/19 21:12 Blood Pressure 110/66 03/18/19 07:10 Blood Pressure Mean 55 03/15/19 18:01 Blood Pressure Position Sitting 03/14/19 12:10 Pulse Oximetry 95 03/18/19 07:25 Oxygen Delivery Method Nasal Cannula 03/18/19 07:25 Oxygen Flow Rate 2 03/18/19 07:25 Pain Level 0 03/18/19 03:30 Comment 03/18/19 03:30 Intake & Output 03/17/19 03/17/19 03/18/19 11:59 23:59 11:59 Intake Total 2693.334 / 4223.334 1530 / 4223.334 850 / 850 Output Total 300 / 1050 750 / 1050 1200 / 1200 Balance 2393.334 / 3173.334 780 / 3173.334 -350 / -350 Weight 211 lb 10.3 oz Intake: IV 1313.334 / 1413.334 100 / 1413.334 Oral 1380 / 2810 1430 / 2810 850 / 850 Output: Urine 300 / 1050 750 / 1050 1200 / 1200 Other: Urine Color Yellow Pale Yellow Yellow Urine Appearance Clear Clear Clear Sediment Urine Odor None Normal Stool Size Moderate Stool Characteristics Soft Voiding Methods Bedside Commode Bedside Commode Laboratory Results WBC 5.53 k/cumm (4.4-10.8) 03/18/19 06:35 RBC 3.71 m/cumm (4.00-5.20) L 03/18/19 06:35 Hgb 11.1 g/dL (12.0-15.5) L 03/18/19 06:35 Hct 34.2 % (36.0-46.0) L 03/18/19 06:35 MCV 92.2 fL (80-95) 03/18/19 06:35 MCH 29.9 pg (27.0-33.0) 03/18/19 06:35 MCHC 32.5 g/dL (32.0-36.0) 03/18/19 06:35 RDW 15.7 % (11.7-14.6) H 03/18/19 06:35 Plt Count 325 x1000/uL (130-400) 03/18/19 06:35 MPV 10.3 fL (8.0-11.0) 03/18/19 06:35 Immature Gran % 0.2 03/18/19 06:35 Neutrophils % 49.5 03/18/19 06:35 Lymphocytes % 26.8 03/18/19 06:35 Monocytes % 9.6 03/18/19 06:35 Eosinophils % 13.2 03/18/19 06:35 Basophils % 0.7 03/18/19 06:35 Absolute Neutrophils 2.74 k/cumm (1.2-6.7) 03/18/19 06:35 Absolute Lymphocytes 1.48 k/cumm (1.2-3.4) 03/18/19 06:35 Absolute Monocytes 0.53 k/cumm (0.11-0.7) 03/18/19 06:35 Absolute Eosinophils 0.73 k/cumm (0.0-0.7) H 03/18/19 06:35 Absolute Basophils 0.04 k/cumm (0.0-0.2) 03/18/19 06:35 Sample Site Right radial 03/13/19 09:57 pCO2 33 mmHg (34-47) L 03/13/19 09:57 pO2 93 mmHg (83-108) 03/13/19 09:57 O2 Saturation 98 % (94-98) 03/13/19 09:57 ABG pH 7.33 (7.35-7.45) L 03/13/19 09:57 ABG HCO3 17 mmol/L (22-28) L 03/13/19 09:57 ABG Total CO2 16 mmol/L (22-29) L 03/13/19 09:57 ABG Base Excess -8.8 mmol/L (-3-3) L 03/13/19 09:57 VBG pH 7.34 (7.32-7.43) 03/15/19 08:06 VBG pCO2 33 mm/Hg (34-47) L 03/15/19 08:06 VBG pO2 41 mm/Hg (28-44) 03/15/19 08:06 VBG HCO3 18 mmol/L (22-28) L 03/15/19 08:06 VBG Total CO2 17 mmol/L (22-29) L 03/15/19 08:06 VBG O2 Saturation 81 % (70-80) H 03/15/19 08:06 VBG Base Excess mmol/L (-3-3) 03/15/19 08:06 Oxygen Liter Flow 2 L 03/13/19 09:57 FiO2 Nasal cannula % 03/13/19 09:57 Sodium 142 mmol/L (136-145) 03/18/19 06:35 Potassium 3.5 mmol/L (3.5-5.1) 03/18/19 06:35 Chloride 108 mmol/L (98-107) H 03/18/19 06:35 Carbon Dioxide 24.1 mmol/L (21.0-32.0) 03/18/19 06:35 Anion Gap 9.9 mmol/L (3-11) 03/18/19 06:35 BUN 2 mg/dL (7-18) L 03/18/19 06:35 Creatinine 0.90 mg/dL (0.55-1.02) 03/18/19 06:35 Estimated GFR/1.73 m2 >= 60.00 (mL/min/1.73m2) 03/18/19 06:35 Glucose 126 mg/dL (70-100) H 03/18/19 06:35 Lactate 2.0 mmol/l (0.6-1.4) H 03/17/19 07:00 Calcium 8.8 mg/dL (8.5-10.1) 03/18/19 06:35 Magnesium 1.5 mg/dL (1.8-2.4) L 03/18/19 06:35 Iron 21 ug/dL (50-175) L 03/17/19 07:00 TIBC 186 ug/dL (250-450) L 03/17/19 07:00 Transferrin % Sat 11 % (15-50) L 03/17/19 07:00 Ferritin 84 ng/mL (8-388) 03/17/19 07:00 Total Bilirubin 0.4 mg/dL (0.2-1.0) 03/17/19 07:00 AST 13 U/L (15-37) L 03/17/19 07:00 ALT 11 U/L (12-78) L 03/17/19 07:00 Alkaline Phosphatase 92 U/L (46-116) 03/17/19 07:00 Troponin I 0.03 ng/mL (0.00-0.06) 03/13/19 06:32 C-Reactive Protein 3.95 mg/dL (0.0-0.3) H 03/17/19 07:00 Total Protein 5.0 g/dL (6.4-8.2) L 03/17/19 07:00 Albumin 2.0 g/dL (3.4-5.0) L 03/17/19 07:00 Lipase 293 U/L (73-393) 03/16/19 06:20 TSH 0.80 uIU/mL (0.358-3.74) 03/14/19 06:25 Thyroxine (T4) 5.3 ug/dL (4.5-12.5) 03/14/19 06:25 Urine Color Straw (Yellow) 03/12/19 18:44 Urine Clarity Clear 03/12/19 18:44 Urine pH 5.0 (5-8) 03/12/19 18:44 Ur Specific [place] 1.010 (1.005-1.025) 03/12/19 18:44 Urine Protein Trace mg/dL (Negative) H 03/12/19 18:44 Urine Ketones >=160 mg/dL (Negative) H 03/12/19 18:44 Urine Blood Trace-intact (Negative) H 03/12/19 18:44 Urine Nitrite Negative (Negative) 03/12/19 18:44 Urine Bilirubin Small (Negative) H 03/12/19 18:44 Urine Urobilinogen 0.2 EU/dL (Up TO 0.2) 03/12/19 18:44 Ur Leukocyte Esterase Negative (Negative) 03/12/19 18:44 Urine RBC Negative (0-2) 03/12/19 18:44 Urine WBC Negative HPF (0-5) 03/12/19 18:44 Ur Epithelial Cells Negative HPF (Negative) 03/12/19 18:44 Urine Crystals Few amorphous HPF (Negative) 03/12/19 18:44 Urine Bacteria Negative HPF (Negative) 03/12/19 18:44 Urine Casts Negative LPF (Negative) 03/12/19 18:44 Urine Mucus Negative (Negative) 03/12/19 18:44 Urine Other Negative (Negative) 03/12/19 18:44 Ur Culture Indicated? No 03/12/19 18:44 Urine Glucose 500 mg/dL (Negative) H 03/12/19 18:44 Stl C.difficile Tox PCR Negative 03/13/19 11:45 C.difficile Tox Source Feces 03/13/19 11:45
--- NOTE | 2019-03-18 11:56 | PT.INTREAT ---
Date of service: 03/18/19 Time of Service: 12:45 PT Notes Inpatient Physical Therapy Treatment Note [facility] Date: 03/18/19 PRECAUTIONS: Fall risk SUBJECTIVE: Pr reports that she is SOB today and fatigued. OBJECTIVE: Sit-stand: SBA Stand-sit: [sBA GAIT Assistive Device: FWW Weight bearing: Full Assist: SBA Distance: 15ft pt had to utilize the commode x2 during our session. VITALS: 2L 98% 107 HR THEREX: [Pt completed UE and LE ther ex as per flow sheet. ASSESSMENT: Pt was not able to tolerate much today due to her SOB, fatigue, and bowel movements. PLAN: cont as per PT POC. TREATMENT CODE/TIME: 12:45-12:55 (10) TA
--- NOTE | 2019-03-18 12:52 | NUR.NOTE ---
Spoke to Dr Monahan in regard to POC for the patient. She has asked nursing to ambulate tohe patient 4 times daily, patient is experiencing sob , which may make the activity difficult, but will endeavor and encourage her to do so to do so Nursing Note:
[2019-03-18] MEDS: Benzonatate 100 MG CAP PO ×2 (14:12→19:49)
[2019-03-18] MEDS: Furosemide 40 MG TAB PO (18:29)
[2019-03-19] VITALS (9 sets, daily range): BP systolic 107–130; BP diastolic 48–77; PULSE 90–96; RESP 16–20; TEMP 36.4–37.1; O2SAT 91–99
[2019-03-19] MEDS: Albuterol 2.5 MG/3 ML INH SOLN VIAL IH (00:57)
[2019-03-19] MEDS: Benzonatate 100 MG CAP PO ×3 (03:38→20:36)
[2019-03-19 07:06] LABS: Abs Immature Grans 0.01 k/cumm (0.0-0.09); Absolute Basophil Count 0.04 k/cumm (0.0-0.2); Absolute Eosinophil Count 0.54 k/cumm (0.0-0.7); Absolute Lymphocyte Count 1.01 k/cumm (1.2-3.4); Absolute Monocyte Count 0.62 k/cumm (0.11-0.7); Absolute Neutrophil Count 2.77 k/cumm (1.2-6.7); Basophils % 0.8; Eosinophils % 10.8; HCT 33.1 % (36.0-46.0); HGB 10.5 g/dL (12.0-15.5); Immature Grans % 0.2; Lymphocytes % 20.2; Mean Corp. HGB Concentration 31.7 g/dL (32.0-36.0); Mean Corpuscular Hemoglobin 29.5 pg (27.0-33.0); Mean Platelet Volume 10.7 fL (8.0-11.0); Monocytes % 12.4; Neutrophils % 55.6; Platelet Count 349 x1000/uL (130-400); RBC 3.56 m/cumm (4.00-5.20); RBC Distribution Width 15.8 % (11.7-14.6); White Blood Cell Count 4.99 k/cumm (4.4-10.8)
--- NOTE | 2019-03-19 07:14 | PGE_ITS ---
Date of Service Date of service: 03/19/19 Time of Service: 07:12 Assessment and Plan (1) Ileus: Current visit: Yes Status: Acute Continue full liquid diet. If she continues to tolerate this without abdominal pain, nausea or vomiting will progress to soft, low fiber diet this afternoon. Subjective Interval history since last seen: Reports tolerating full liquid diet. Denies abdominal pain, nausea or vomiting. Exam Const General: cooperative and comfortable Orientation: alert and oriented x3 Resp Effort & Inspection: normal respiratory effort, no audible wheezes and no cough GI Inspection: normal to inspection and non-distended Palpation: soft, no guarding and nontender Objective Objective Clinical Data: Abnormal lab results 03/18/19 03/18/19 03/19/19 Range/Units 06:35 06:35 06:20 RBC 3.71 L 3.56 L (4.00-5.20) m/cumm Hgb 11.1 L 10.5 L (12.0-15.5) g/dL Hct 34.2 L 33.1 L (36.0-46.0) % MCHC 31.7 L (32.0-36.0) g/dL RDW 15.7 H 15.8 H (11.7-14.6) % Absolute Lymphocytes 1.01 L (1.2-3.4) k/cumm Absolute Eosinophils 0.73 H (0.0-0.7) k/cumm Chloride 108 H (98-107) mmol/L BUN 2 L (7-18) mg/dL Glucose 126 H (70-100) mg/dL Magnesium 1.5 L (1.8-2.4) mg/dL Vital Signs Temperature 36.4 C L 03/19/19 03:17 Temperature Source Temporal Artery Scan 03/19/19 03:17 Pulse 90 03/19/19 03:17 Pulse Rhythm Regular 03/18/19 22:41 Pulse 104 H 03/15/19 19:00 Respiratory Rate 18 03/19/19 03:17 Respiratory Effort 03/18/19 22:41 Respiratory Depth Normal 03/18/19 22:41 Respiratory Pattern Normal 03/18/19 22:41 Blood Pressure 107/48 L 03/19/19 03:17 Blood Pressure Mean 55 03/15/19 18:01 Blood Pressure Position Sitting 03/14/19 12:10 Pulse Oximetry 97 05/28/19 03:17 Oxygen Delivery Method Nasal Cannula 03/19/19 03:17 Oxygen Flow Rate 2 03/19/19 03:17 Pain Level 0 03/18/19 03:30 Comment 03/18/19 11:19 Intake & Output 03/18/19 03/19/19 03/19/19 18:59 06:59 18:59 Intake Total 1380 / 1830 450 / 1830 Output Total 1500 / 3150 1650 / 3150 Balance -120 / -1320 -1200 / -1320 Weight 96.2 kg Intake: Oral 1380 / 1830 450 / 1830 Output: Urine 1500 / 3150 1650 / 3150 Other: Urine Color Yellow Yellow Urine Appearance Clear Clear Urine Odor Normal None Comment continent, mixed with stool Stool Size Small Stool Characteristics Soft Voiding Methods Bedside Commode Bedside Commode Laboratory Results WBC 4.99 k/cumm (4.4-10.8) 03/19/19 06:20 RBC 3.56 m/cumm (4.00-5.20) L 03/19/19 06:20 Hgb 10.5 g/dL (12.0-15.5) L 03/19/19 06:20 Hct 33.1 % (36.0-46.0) L 03/19/19 06:20 MCV 93.0 fL (80-95) 03/19/19 06:20 MCH 29.5 pg (27.0-33.0) 03/19/19 06:20 MCHC 31.7 g/dL (32.0-36.0) L 03/19/19 06:20 RDW 15.8 % (11.7-14.6) H 03/19/19 06:20 Plt Count 349 x1000/uL (130-400) 03/19/19 06:20 MPV 10.7 fL (8.0-11.0) 03/19/19 06:20 Immature Gran % 0.2 03/19/19 06:20 Neutrophils % 55.6 03/19/19 06:20 Lymphocytes % 20.2 03/19/19 06:20 Monocytes % 12.4 03/19/19 06:20 Eosinophils % 10.8 03/19/19 06:20 Basophils % 0.8 03/19/19 06:20 Absolute Neutrophils 2.77 k/cumm (1.2-6.7) 03/19/19 06:20 Absolute Lymphocytes 1.01 k/cumm (1.2-3.4) L 03/19/19 06:20 Absolute Monocytes 0.62 k/cumm (0.11-0.7) 03/19/19 06:20 Absolute Eosinophils 0.54 k/cumm (0.0-0.7) 03/19/19 06:20 Absolute Basophils 0.04 k/cumm (0.0-0.2) 03/19/19 06:20 Sample Site Right radial 03/13/19 09:57 pCO2 33 mmHg (34-47) L 03/13/19 09:57 pO2 93 mmHg (83-108) 03/13/19 09:57 O2 Saturation 98 % (94-98) 03/13/19 09:57 ABG pH 7.33 (7.35-7.45) L 03/13/19 09:57 ABG HCO3 17 mmol/L (22-28) L 03/13/19 09:57 ABG Total CO2 16 mmol/L (22-29) L 03/13/19 09:57 ABG Base Excess -8.8 mmol/L (-3-3) L 03/13/19 09:57 VBG pH 7.34 (7.32-7.43) 03/15/19 08:06 VBG pCO2 33 mm/Hg (34-47) L 03/15/19 08:06 VBG pO2 41 mm/Hg (28-44) 03/15/19 08:06 VBG HCO3 18 mmol/L (22-28) L 03/15/19 08:06 VBG Total CO2 17 mmol/L (22-29) L 03/15/19 08:06 VBG O2 Saturation 81 % (70-80) H 03/15/19 08:06 VBG Base Excess mmol/L (-3-3) 03/15/19 08:06 Oxygen Liter Flow 2 L 03/13/19 09:57 FiO2 Nasal cannula % 03/13/19 09:57 Sodium 142 mmol/L (136-145) 03/18/19 06:35 Potassium 3.5 mmol/L (3.5-5.1) 03/18/19 06:35 Chloride 108 mmol/L (98-107) H 03/18/19 06:35 Carbon Dioxide 24.1 mmol/L (21.0-32.0) 03/18/19 06:35 Anion Gap 9.9 mmol/L (3-11) 03/18/19 06:35 BUN 2 mg/dL (7-18) L 03/18/19 06:35 Creatinine 0.90 mg/dL (0.55-1.02) 03/18/19 06:35 Estimated GFR/1.73 m2 >= 60.00 (mL/min/1.73m2) 03/18/19 06:35 Glucose 126 mg/dL (70-100) H 03/18/19 06:35 Lactate 2.0 mmol/l (0.6-1.4) H 03/17/19 07:00 Calcium 8.8 mg/dL (8.5-10.1) 03/18/19 06:35 Magnesium 1.5 mg/dL (1.8-2.4) L 03/18/19 06:35 Iron 21 ug/dL (50-175) L 03/17/19 07:00 TIBC 186 ug/dL (250-450) L 03/17/19 07:00 Transferrin % Sat 11 % (15-50) L 03/17/19 07:00 Ferritin 84 ng/mL (8-388) 03/17/19 07:00 Total Bilirubin 0.4 mg/dL (0.2-1.0) 03/17/19 07:00 AST 13 U/L (15-37) L 03/17/19 07:00 ALT 11 U/L (12-78) L 03/17/19 07:00 Alkaline Phosphatase 92 U/L (46-116) 03/17/19 07:00 Troponin I 0.03 ng/mL (0.00-0.06) 03/13/19 06:32 C-Reactive Protein 3.95 mg/dL (0.0-0.3) H 03/17/19 07:00 Total Protein 5.0 g/dL (6.4-8.2) L 03/17/19 07:00 Albumin 2.0 g/dL (3.4-5.0) L 03/17/19 07:00 Lipase 293 U/L (73-393) 03/16/19 06:20 TSH 0.80 uIU/mL (0.358-3.74) 03/14/19 06:25 Thyroxine (T4) 5.3 ug/dL (4.5-12.5) 03/14/19 06:25 Urine Color Straw (Yellow) 03/12/19 18:44 Urine Clarity Clear 03/12/19 18:44 Urine pH 5.0 (5-8) 03/12/19 18:44 Ur Specific [place] 1.010 (1.005-1.025) 03/12/19 18:44 Urine Protein Trace mg/dL (Negative) H 03/12/19 18:44 Urine Ketones >=160 mg/dL (Negative) H 03/12/19 18:44 Urine Blood Trace-intact (Negative) H 03/12/19 18:44 Urine Nitrite Negative (Negative) 03/12/19 18:44 Urine Bilirubin Small (Negative) H 03/12/19 18:44 Urine Urobilinogen 0.2 EU/dL (Up TO 0.2) 03/12/19 18:44 Ur Leukocyte Esterase Negative (Negative) 03/12/19 18:44 Urine RBC Negative (0-2) 03/12/19 18:44 Urine WBC Negative HPF (0-5) 03/12/19 18:44 Ur Epithelial Cells Negative HPF (Negative) 03/12/19 18:44 Urine Crystals Few amorphous HPF (Negative) 03/12/19 18:44 Urine Bacteria Negative HPF (Negative) 03/12/19 18:44 Urine Casts Negative LPF (Negative) 03/12/19 18:44 Urine Mucus Negative (Negative) 03/12/19 18:44 Urine Other Negative (Negative) 03/12/19 18:44 Ur Culture Indicated? No 03/12/19 18:44 Urine Glucose 500 mg/dL (Negative) H 03/12/19 18:44 Stl C.difficile Tox PCR Negative 03/13/19 11:45 C.difficile Tox Source Feces 03/13/19 11:45
[2019-03-19 07:19] LABS: Magnesium 1.5 mg/dL (1.8-2.4)
[2019-03-19] MEDS: Budesonide/Formoterol 160/4.5 6 GM 60 PUFF INH IH ×2 (07:35→19:49)
[2019-03-19] MEDS: Albuterol/Ipratropium 3 ML UPD VIAL UPD ×4 (07:41→19:49)
[2019-03-19] MEDS: Sucralfate 1 GM TAB PO ×4 (08:11→21:51)
[2019-03-19] MEDS: Enoxaparin 40 MG/0.4 ML SYR SC (08:11)
[2019-03-19] MEDS: Magnesium Chloride 64 MG TABCR PO ×3 (08:11→19:49)
[2019-03-19] MEDS: Lactobacillus Acidophilus CAP 1 CAP PO ×3 (08:11→19:49)
[2019-03-19] MEDS: Nystatin POWDER 60 GM JAR TP ×3 (08:12→19:51)
[2019-03-19] MEDS: Pantoprazole 40 MG TABCR PO ×2 (08:12→19:49)
[2019-03-19] MEDS: Insulin Glargine 300 UNITS/3 ML PEN 70 UNITS SC (08:13)
[2019-03-19] MEDS: Magnesium Oxide 400 MG TAB 800 MG PO (10:19)
[2019-03-19] MEDS: Ferrous Sulfate 325 MG TAB PO ×2 (10:20→21:51)
--- NOTE | 2019-03-19 10:35 | OT.INDS ---
Date of service: 03/19/19 Time of Service: 08:40 Occupational Therapy Notes Occupational Therapy Inpatient Discharge Summary Date: 03/19/19 Dates of Service: 03/15/19-03/19/19 Referring Doctor:Randi Dyer MD OT Orders: Eval and treat Precautions: fall, standard PATIENT PROFILE/ADMITTING DIAGNOSIS: Pt is a 68 year old female admitted to [facility] through the ER for DKA (diabetic ketoacidoses), Vomiting, Elevated troponin. Past Medical History: Internal derangement of right knee (Acute) Back pain (Chronic) Asthma (Chronic) Osteoporosis (Chronic 03/16/18) Neck pain (Chronic 03/16/18) Migraine (Chronic 04/03/14) Long-term use of high-risk medication (Chronic 03/16/18) Interstitial lung disease (Chronic 03/16/18) History of shingles (Resolved 03/16/18) Gastroesophageal reflux disease without esophagitis (Chronic 03/16/18) Essential hypertension (Chronic 07/17/13) Edema (Chronic 03/16/18) Dyspnea (Chronic 03/16/18) Depressive disorder (Chronic) Cubital tunnel syndrome (Resolved 03/16/18) Cognitive impairment (Chronic 03/16/18) Chronic constipation (Chronic 03/16/18) Anxiety (Chronic 03/16/18) Acute gastroenteritis (Resolved 03/16/18) Umbilical hernia (Chronic) Type II diabetes mellitus, uncontrolled (Chronic) Total urinary incontinence (Chronic) Shoulder pain (Chronic) Post herpetic neuralgia (Chronic 03/16/18) Peripheral neuralgia (Chronic) 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 She is (I) with all ADLs/IADLs at her baseline level of function. She has a tub shower which is difficulty for her at times to perform her bathing routine. She notes that she did have HH nursing, OT and PT in her home which has since discharged her. A neighbor helps with her multiple resaw operator as she is unable to do this on her own. She gets food from [employer]. She notes that she has been unable to go grocery shopping for a month. She states that she gets rides from [facility]. She was going to outpatient Physical Therapy and reports that she would like to return to pool therapy. Equipment owned/DME: which she reports she has not been to in a month, [facility], wheelchair, FWW, Home O2 which she is at 2L O2 at all times. SUBJECTIVE: Pt was lying in bed when OT arrived. She is agreeable to OT session and notes she is going to SNF today. OBJECTIVE: Mental Status: A&Ox3 Pain: no c/o pain ROM: RUE WNL L UE WNL STRENGTH: RUE 4/5 throughout globally, hand i thermal cutter is weak LUE 4/5 throughout globally, hand i thermal cutter is weak FUNCTIONAL MOBILITY/ADLS: 2 L O2 nasal cannula throughout ADL routines Sit-stand (I), FWW Stand-sit (I), FWW Bed-chair (S), FWW Bathing: Sitting in chair with max (A) set up pt was (I) UE/LE bathing routines Dressing: Sitting in chair (I) with [facility] gown, underwear and (B) slippers BALANCE: Static Sitting- Normal Dynamic Sitting- Normal Static standing- Normal Dynamic standing- Good ASSESSMENT: Patient is a 68-year-old female referred to occupational therapy services with diagnosis of DKA (diabetic ketoacidoses), Vomiting, Elevated troponin. Patient was seen for 2 skilled OT services. She states that she is being discharged to [facility] and rehab today. She is able to perform her ADLs/IADLs with increased (I). OT will discharge pt from skilled OT services at this time. GOALS- Met unless otherwise specified 1. Transfers (I) 2. Dressing In sitting (I) with UE/LE dressing 3. Bathing Standing at sink (I) with UE/LE bathing 4. Toileting (I) on toilet- NT, pt is currently using a commode 5. Eating (I) 6. Grooming (I) standing at sink for brushing teeth and hair- Not met as pt denies PLAN OF CARE/TREATMENT PLAN: Discharge pt from skilled OT services at this time. DISCHARGE RECOMMENDATIONS SNF when medically cleared per MD. TREATMENT TIME/MINUTES/CODES [id number], 25 minutes (08:40) Trinidad Philip OTR/L [facility]
--- NOTE | 2019-03-19 10:44 | W.PM.PROGNOT ---
Date of Service Date of service: 03/19/19 Time of Service: 10:44 Assessment and Plan (1) DKA (diabetic ketoacidoses): Current visit: Yes Status: Acute Resolved. Glucose low last evening to 56. Currently on lantus 70 units daily with SSI as needed. Advancing diet. Continue to closely monitor blood glucose. Decrease Lantus if she continues to experience low glucose. She became fluidoverloaded with the treatment for DKA. Her Echo reveals LVEF of 55-60%. She refuses to have an IV restarted. Trial oral Lasix with BID dosing. Continue to follow. BMP in the morning. (2) Ileus: Current visit: Yes Status: Acute Abdominal x-ray shows Dilated loops of small bowel in the central abdomen measure up to 3.6 cm with a relatively collapsed appearance of distal loops. Gas is noted in the colon. Consider an early small bowel obstruction. General surgery is following her. She continues to have loose stools. She is tolerating a full liquid diet without abdominal pain, nausea or vomiting. If she continues to tolerate full liquids, will advance to a soft, low fiber diet for her evening meal. Continue to encourage frequent ambulation. (3) COPD (chronic obstructive pulmonary disease): Current visit: No Status: Chronic Does not appear to be in acute exacerbation. Has home oxygen at 2lpm PRN. Continues to have dry cough. Continue PRN nebulizer treatments. Encourage ambulation. (4) Hypomagnesemia: Current visit: Yes Status: Acute Replete and monitor. (5) Palliative care patient: Current visit: Yes Status: Chronic Followed by Dr. Centeno. (6) DVT prophylaxis: Current visit: No Status: Acute TEDS, SCD, patient had heme + stools. (7) Discharge planning issues: Current visit: Yes Status: Acute She remains a FULL CODE. Referrals have been sent to SNF. Will transfer when medically ready. This case was discussed with Dr. Bazan who is in agreement. Subjective Interval history since last seen: Elly reports feeling tired. She continues to have a nonproductive cough with mild shortness of breath with activity. She cannot lay flat in bed, she normally can lay flat at home. She denies wheezing. She continues to have loose stools, not watery. She denies abdominal pain, nausea, vomiting, she is tolerating full liquids. She would like to advance her diet. She denies chest pain/pressure, palpitations. We discussed using IV lasix, however, she flatly refused to have her IV restarted. She would prefer to trial oral lasix first. Exam Narrative Exam Narrative: General: appears older than stated age, sitting comfortably in chair, in no acute distress. Speaks in complete sentances without shortness of breath. HEENT: normocephalic, atruamatic, pupils equal and round, extraocular movements intact, mucous membranes moist. Neck: supple Cardiovascular: heart has regular rate and rhythm, no murmur appreciated. Respiratory: respirations even and unlabored, dry cough noted. Rales to bilateral bases noted, few scattered wheezes noted. GI: abdomen with normal bowel sounds, soft, nontender on palpation. Extremities: +1 edema to bilateral upper and lower extremities. Pedal pulses palpable bilaterally. Objective Objective Clinical Data: Abnormal lab results 03/19/19 03/19/19 Range/Units 06:20 06:20 RBC 3.56 L (4.00-5.20) m/cumm Hgb 10.5 L (12.0-15.5) g/dL Hct 33.1 L (36.0-46.0) % MCHC 31.7 L (32.0-36.0) g/dL RDW 15.8 H (11.7-14.6) % Absolute Lymphocytes 1.01 L (1.2-3.4) k/cumm Magnesium 1.5 L (1.8-2.4) mg/dL Vital Signs Temperature 36.7 C 03/19/19 07:10 Temperature Source Tympanic 03/19/19 07:10 Pulse 94 H 03/19/19 07:10 Pulse Rhythm Regular 03/19/19 07:27 Pulse 104 H 03/15/19 19:00 Respiratory Rate 20 03/19/19 07:10 Respiratory Effort 03/19/19 07:27 Respiratory Depth Normal 03/19/19 07:27 Respiratory Pattern Normal 03/19/19 07:27 Blood Pressure 125/74 03/19/19 07:10 Blood Pressure Mean 55 03/15/19 18:01 Blood Pressure Position Sitting 03/14/19 12:10 Pulse Oximetry 99 03/19/19 07:10 Oxygen Delivery Method Nasal Cannula 03/19/19 07:29 Oxygen Flow Rate 2 03/19/19 07:29 Pain Level 0 03/18/19 03:30 Comment 03/18/19 11:19 Intake & Output 03/18/19 03/18/19 03/19/19 11:59 23:59 11:59 Intake Total 850 / 1780 930 / 1780 810 / 810 Output Total 1400 / 3100 1700 / 3100 1250 / 1250 Balance -550 / -1320 -770 / -1320 -440 / -440 Weight 96 kg 96.2 kg Intake: Oral 850 / 1780 930 / 1780 810 / 810 Output: Urine 1400 / 3100 1700 / 3100 1250 / 1250 Other: Urine Color Yellow Yellow Yellow Urine Appearance Clear Clear Clear Urine Odor Normal Normal None Comment continent, mixed with stool Stool Size Large Small Stool Characteristics Soft Voiding Methods Bedside Commode Bedside Commode Bedside Commode Laboratory Results WBC 4.99 k/cumm (4.4-10.8) 03/19/19 06:20 RBC 3.56 m/cumm (4.00-5.20) L 03/19/19 06:20 Hgb 10.5 g/dL (12.0-15.5) L 03/19/19 06:20 Hct 33.1 % (36.0-46.0) L 03/19/19 06:20 MCV 93.0 fL (80-95) 03/19/19 06:20 MCH 29.5 pg (27.0-33.0) 03/19/19 06:20 MCHC 31.7 g/dL (32.0-36.0) L 03/19/19 06:20 RDW 15.8 % (11.7-14.6) H 03/19/19 06:20 Plt Count 349 x1000/uL (130-400) 03/19/19 06:20 MPV 10.7 fL (8.0-11.0) 03/19/19 06:20 Immature Gran % 0.2 03/19/19 06:20 Neutrophils % 55.6 03/19/19 06:20 Lymphocytes % 20.2 03/19/19 06:20 Monocytes % 12.4 03/19/19 06:20 Eosinophils % 10.8 03/19/19 06:20 Basophils % 0.8 03/19/19 06:20 Absolute Neutrophils 2.77 k/cumm (1.2-6.7) 03/19/19 06:20 Absolute Lymphocytes 1.01 k/cumm (1.2-3.4) L 03/19/19 06:20 Absolute Monocytes 0.62 k/cumm (0.11-0.7) 03/19/19 06:20 Absolute Eosinophils 0.54 k/cumm (0.0-0.7) 03/19/19 06:20 Absolute Basophils 0.04 k/cumm (0.0-0.2) 03/19/19 06:20 Sample Site Right radial 03/13/19 09:57 pCO2 33 mmHg (34-47) L 03/13/19 09:57 pO2 93 mmHg (83-108) 03/13/19 09:57 O2 Saturation 98 % (94-98) 03/13/19 09:57 ABG pH 7.33 (7.35-7.45) L 03/13/19 09:57 ABG HCO3 17 mmol/L (22-28) L 03/13/19 09:57 ABG Total CO2 16 mmol/L (22-29) L 03/13/19 09:57 ABG Base Excess -8.8 mmol/L (-3-3) L 03/13/19 09:57 VBG pH 7.34 (7.32-7.43) 03/15/19 08:06 VBG pCO2 33 mm/Hg (34-47) L 03/15/19 08:06 VBG pO2 41 mm/Hg (28-44) 03/15/19 08:06 VBG HCO3 18 mmol/L (22-28) L 03/15/19 08:06 VBG Total CO2 17 mmol/L (22-29) L 03/15/19 08:06 VBG O2 Saturation 81 % (70-80) H 03/15/19 08:06 VBG Base Excess mmol/L (-3-3) 03/15/19 08:06 Oxygen Liter Flow 2 L 03/13/19 09:57 FiO2 Nasal cannula % 03/13/19 09:57 Sodium 142 mmol/L (136-145) 03/18/19 06:35 Potassium 3.5 mmol/L (3.5-5.1) 03/18/19 06:35 Chloride 108 mmol/L (98-107) H 03/18/19 06:35 Carbon Dioxide 24.1 mmol/L (21.0-32.0) 03/18/19 06:35 Anion Gap 9.9 mmol/L (3-11) 03/18/19 06:35 BUN 2 mg/dL (7-18) L 03/18/19 06:35 Creatinine 0.90 mg/dL (0.55-1.02) 03/18/19 06:35 Estimated GFR/1.73 m2 >= 60.00 (mL/min/1.73m2) 03/18/19 06:35 Glucose 126 mg/dL (70-100) H 03/18/19 06:35 Lactate 2.0 mmol/l (0.6-1.4) H 03/17/19 07:00 Calcium 8.8 mg/dL (8.5-10.1) 03/18/19 06:35 Magnesium 1.5 mg/dL (1.8-2.4) L 03/19/19 06:20 Iron 21 ug/dL (50-175) L 03/17/19 07:00 TIBC 186 ug/dL (250-450) L 03/17/19 07:00 Transferrin % Sat 11 % (15-50) L 03/17/19 07:00 Ferritin 84 ng/mL (8-388) 03/17/19 07:00 Total Bilirubin 0.4 mg/dL (0.2-1.0) 03/17/19 07:00 AST 13 U/L (15-37) L 03/17/19 07:00 ALT 11 U/L (12-78) L 03/17/19 07:00 Alkaline Phosphatase 92 U/L (46-116) 03/17/19 07:00 Troponin I 0.03 ng/mL (0.00-0.06) 03/13/19 06:32 C-Reactive Protein 3.95 mg/dL (0.0-0.3) H 03/17/19 07:00 Total Protein 5.0 g/dL (6.4-8.2) L 03/17/19 07:00 Albumin 2.0 g/dL (3.4-5.0) L 03/17/19 07:00 Lipase 293 U/L (73-393) 03/16/19 06:20 TSH 0.80 uIU/mL (0.358-3.74) 03/14/19 06:25 Thyroxine (T4) 5.3 ug/dL (4.5-12.5) 03/14/19 06:25 Urine Color Straw (Yellow) 03/12/19 18:44 Urine Clarity Clear 03/12/19 18:44 Urine pH 5.0 (5-8) 03/12/19 18:44 Ur Specific [place] 1.010 (1.005-1.025) 03/12/19 18:44 Urine Protein Trace mg/dL (Negative) H 03/12/19 18:44 Urine Ketones >=160 mg/dL (Negative) H 03/12/19 18:44 Urine Blood Trace-intact (Negative) H 03/12/19 18:44 Urine Nitrite Negative (Negative) 03/12/19 18:44 Urine Bilirubin Small (Negative) H 03/12/19 18:44 Urine Urobilinogen 0.2 EU/dL (Up TO 0.2) 03/12/19 18:44 Ur Leukocyte Esterase Negative (Negative) 03/12/19 18:44 Urine RBC Negative (0-2) 03/12/19 18:44 Urine WBC Negative HPF (0-5) 03/12/19 18:44 Ur Epithelial Cells Negative HPF (Negative) 03/12/19 18:44 Urine Crystals Few amorphous HPF (Negative) 03/12/19 18:44 Urine Bacteria Negative HPF (Negative) 03/12/19 18:44 Urine Casts Negative LPF (Negative) 03/12/19 18:44 Urine Mucus Negative (Negative) 03/12/19 18:44 Urine Other Negative (Negative) 03/12/19 18:44 Ur Culture Indicated? No 03/12/19 18:44 Urine Glucose 500 mg/dL (Negative) H 03/12/19 18:44 Stl C.difficile Tox PCR Negative 03/13/19 11:45 C.difficile Tox Source Feces 03/13/19 11:45
[2019-03-19 11:31] LABS: Anion Gap 10.8 mmol/L (3-11); BUN 3 mg/dL (7-18); CO2 26.2 mmol/L (21.0-32.0); CREATININE 0.97 mg/dL (0.55-1.02); Calcium 8.7 mg/dL (8.5-10.1); Chloride 106 mmol/L (98-107); Estimated GFR 57.28 (mL/min/1.73m2); Glucose 116 mg/dL (70-100); Potassium 3.4 mmol/L (3.5-5.1); Sodium 143 mmol/L (136-145)
[2019-03-19] MEDS: Insulin Aspart 300 UNITS/3 ML PEN SC ×2 (12:07→17:21)
[2019-03-19] MEDS: Furosemide 40 MG TAB PO ×2 (12:14→17:20)
[2019-03-19] MEDS: Potassium Chloride 20 MEQ TABCR 40 MEQ PO (12:18)
--- NOTE | 2019-03-19 13:43 | W.PM.PROGNOT ---
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 up and walking no pain currently no surgical intervention cont w/ medical management will re- eval at your request (2) Ileus: Current visit: Yes Status: Acute Objective Objective Clinical Data: Abnormal lab results 03/19/19 03/19/19 03/19/19 Range/Units 06:20 06:20 07:39 RBC 3.56 L (4.00-5.20) m/cumm Hgb 10.5 L (12.0-15.5) g/dL Hct 33.1 L (36.0-46.0) % MCHC 31.7 L (32.0-36.0) g/dL RDW 15.8 H (11.7-14.6) % Absolute Lymphocytes 1.01 L (1.2-3.4) k/cumm Potassium 3.4 L (3.5-5.1) mmol/L BUN 3 L (7-18) mg/dL Glucose 116 H (70-100) mg/dL Magnesium 1.5 L (1.8-2.4) mg/dL Vital Signs Temperature 36.7 C 03/19/19 11:10 Temperature Source Tympanic 03/19/19 11:10 Pulse 96 H 03/19/19 11:10 Pulse Rhythm Regular 03/19/19 07:27 Pulse 104 H 03/15/19 19:00 Respiratory Rate 16 03/19/19 11:10 Respiratory Effort 03/19/19 07:27 Respiratory Depth Normal 03/19/19 07:27 Respiratory Pattern Normal 03/19/19 07:27 Blood Pressure 111/51 L 03/19/19 11:10 Blood Pressure Mean 55 03/15/19 18:01 Blood Pressure Position Sitting 03/14/19 12:10 Pulse Oximetry 97 03/19/19 11:10 Oxygen Delivery Method Nasal Cannula 03/19/19 11:10 Oxygen Flow Rate 1 03/19/19 11:10 Pain Level 0 03/18/19 03:30 Comment 03/18/19 11:19 Intake & Output 03/18/19 03/19/19 03/19/19 23:59 11:59 23:59 Intake Total 930 / 1780 810 / 810 Output Total 1700 / 3100 2049 Balance -770 / -1320 -1240 / -1240 Weight 96.2 kg Intake: Oral 0 810 / 810 Output: Urine 16990 2049 Other: Urine Color Yellow Yellow Urine Appearance Clear Clear Urine Odor Normal Normal Comment continent, mixed with stool Stool Size Small Voiding Methods Bedside Commode Bedside Commode Laboratory Results WBC 4.99 k/cumm (4.4-10.8) 03/19/19 06:20 RBC 3.56 m/cumm (4.00-5.20) L 03/19/19 06:20 Hgb 10.5 g/dL (12.0-15.5) L 03/19/19 06:20 Hct 33.1 % (36.0-46.0) L 03/19/19 06:20 MCV 93.0 fL (80-95) 03/19/19 06:20 MCH 29.5 pg (27.0-33.0) 03/19/19 06:20 MCHC 31.7 g/dL (32.0-36.0) L 03/19/19 06:20 RDW 15.8 % (11.7-14.6) H 03/19/19 06:20 Plt Count 349 x1000/uL (130-400) 03/19/19 06:20 MPV 10.7 fL (8.0-11.0) 03/19/19 06:20 Immature Gran % 0.2 03/19/19 06:20 Neutrophils % 55.6 03/19/19 06:20 Lymphocytes % 20.2 03/19/19 06:20 Monocytes % 12.4 03/19/19 06:20 Eosinophils % 10.8 03/19/19 06:20 Basophils % 0.8 03/19/19 06:20 Absolute Neutrophils 2.77 k/cumm (1.2-6.7) 03/19/19 06:20 Absolute Lymphocytes 1.01 k/cumm (1.2-3.4) L 03/19/19 06:20 Absolute Monocytes 0.62 k/cumm (0.11-0.7) 03/19/19 06:20 Absolute Eosinophils 0.54 k/cumm (0.0-0.7) 03/19/19 06:20 Absolute Basophils 0.04 k/cumm (0.0-0.2) 03/19/19 06:20 Sample Site Right radial 03/13/19 09:57 pCO2 33 mmHg (34-47) L 03/13/19 09:57 pO2 93 mmHg (83-108) 03/13/19 09:57 O2 Saturation 98 % (94-98) 03/13/19 09:57 ABG pH 7.33 (7.35-7.45) L 03/13/19 09:57 ABG HCO3 17 mmol/L (22-28) L 03/13/19 09:57 ABG Total CO2 16 mmol/L (22-29) L 03/13/19 09:57 ABG Base Excess -8.8 mmol/L (-3-3) L 03/13/19 09:57 VBG pH 7.34 (7.32-7.43) 03/15/19 08:06 VBG pCO2 33 mm/Hg (34-47) L 03/15/19 08:06 VBG pO2 41 mm/Hg (28-44) 03/15/19 08:06 VBG HCO3 18 mmol/L (22-28) L 03/15/19 08:06 VBG Total CO2 17 mmol/L (22-29) L 03/15/19 08:06 VBG O2 Saturation 81 % (70-80) H 03/15/19 08:06 VBG Base Excess mmol/L (-3-3) 03/15/19 08:06 Oxygen Liter Flow 2 L 03/13/19 09:57 FiO2 Nasal cannula % 03/13/19 09:57 Sodium 143 mmol/L (136-145) 03/19/19 07:39 Potassium 3.4 mmol/L (3.5-5.1) L 03/19/19 07:39 Chloride 106 mmol/L (98-107) 03/19/19 07:39 Carbon Dioxide 26.2 mmol/L (21.0-32.0) 03/19/19 07:39 Anion Gap 10.8 mmol/L (3-11) 03/19/19 07:39 BUN 3 mg/dL (7-18) L 03/19/19 07:39 Creatinine 0.97 mg/dL (0.55-1.02) 03/19/19 07:39 Estimated GFR/1.73 m2 57.28 (mL/min/1.73m2) 03/19/19 07:39 Glucose 116 mg/dL (70-100) H 03/19/19 07:39 Lactate 2.0 mmol/l (0.6-1.4) H 03/17/19 07:00 Calcium 8.7 mg/dL (8.5-10.1) 03/19/19 07:39 Magnesium 1.5 mg/dL (1.8-2.4) L 03/19/19 06:20 Iron 21 ug/dL (50-175) L 03/17/19 07:00 TIBC 186 ug/dL (250-450) L 03/17/19 07:00 Transferrin % Sat 11 % (15-50) L 03/17/19 07:00 Ferritin 84 ng/mL (8-388) 03/17/19 07:00 Total Bilirubin 0.4 mg/dL (0.2-1.0) 03/17/19 07:00 AST 13 U/L (15-37) L 03/17/19 07:00 ALT 11 U/L (12-78) L 03/17/19 07:00 Alkaline Phosphatase 92 U/L (46-116) 03/17/19 07:00 Troponin I 0.03 ng/mL (0.00-0.06) 03/13/19 06:32 C-Reactive Protein 3.95 mg/dL (0.0-0.3) H 03/17/19 07:00 Total Protein 5.0 g/dL (6.4-8.2) L 03/17/19 07:00 Albumin 2.0 g/dL (3.4-5.0) L 03/17/19 07:00 Lipase 293 U/L (73-393) 03/16/19 06:20 TSH 0.80 uIU/mL (0.358-3.74) 03/14/19 06:25 Thyroxine (T4) 5.3 ug/dL (4.5-12.5) 03/14/19 06:25 Urine Color Straw (Yellow) 03/12/19 18:44 Urine Clarity Clear 03/12/19 18:44 Urine pH 5.0 (5-8) 03/12/19 18:44 Ur Specific [place] 1.010 (1.005-1.025) 03/12/19 18:44 Urine Protein Trace mg/dL (Negative) H 03/12/19 18:44 Urine Ketones >=160 mg/dL (Negative) H 03/12/19 18:44 Urine Blood Trace-intact (Negative) H 03/12/19 18:44 Urine Nitrite Negative (Negative) 03/12/19 18:44 Urine Bilirubin Small (Negative) H 03/12/19 18:44 Urine Urobilinogen 0.2 EU/dL (Up TO 0.2) 03/12/19 18:44 Ur Leukocyte Esterase Negative (Negative) 03/12/19 18:44 Urine RBC Negative (0-2) 03/12/19 18:44 Urine WBC Negative HPF (0-5) 03/12/19 18:44 Ur Epithelial Cells Negative HPF (Negative) 03/12/19 18:44 Urine Crystals Few amorphous HPF (Negative) 03/12/19 18:44 Urine Bacteria Negative HPF (Negative) 03/12/19 18:44 Urine Casts Negative LPF (Negative) 03/12/19 18:44 Urine Mucus Negative (Negative) 03/12/19 18:44 Urine Other Negative (Negative) 03/12/19 18:44 Ur Culture Indicated? No 03/12/19 18:44 Urine Glucose 500 mg/dL (Negative) H 03/12/19 18:44 Stl C.difficile Tox PCR Negative 03/13/19 11:45 C.difficile Tox Source Feces 03/13/19 11:45
--- NOTE | 2019-03-19 14:13 | PT.INTREAT ---
Date of service: 03/19/19 Time of Service: 14:14 PT Notes Inpatient Physical Therapy Treatment Note [facility] Date: 03/19/2019 PRECAUTIONS: Fall SUBJECTIVE: Elly is agreeable to participating in PT. OBJECTIVE: PAIN: No c/o pain BED MOBILITY/TRANSFERS Sit-stand: SBA Stand-sit: SBA GAIT Assistive Device: FWW Weight bearing: Full Assist: SBA Distance: 120' Deviation: Standing rest x3 due to SOB THEREX: Patient completed a LE strengthening program, in a seated position, as per flow sheet. She required rests between exercises due to SOB. ASSESSMENT: Patient tolerated a progression in gait distance with FWW support and SBA, requiring standing rest x3 due to SOB. Patient would benefit from continued gait and transfer training, as well as strengthening for improved mobility and improved activity tolerance. PLAN: Continue with PT's POC TREATMENT CODE/TIME: 25 minutes; 05144, [id number]
--- NOTE | 2019-03-19 14:16 | PT.INNT ---
Date of service: 03/19/19 Time of Service: 14:16 PT Notes 03/19/19 Patient refused afternoon PT session, stating that she did not feel well and had a headache.
--- NOTE | 2019-03-19 15:57 | PDOC.CMPRO ---
Care Management Progress Note S/O-Met with Elly today. Advised her that referral was made to [facility] and we are awaiting response. Spoke [facility] and they are awaiting pre-cert for SNF since she has a Medicare replacement policy. Since it is late afternoon now, they will hope to receive information by tomorrow AM. [facility]old [facility] that she is ready for d/c tomorrow. Elly states she just wants to go to SNF for short term until she is stronger to return home alone. A-68 yo woman admitted with DKA and abdominal pain. P-Awaiting response to referral to [facility] with anticipated transfer there tomorrow if accepted. Will need w/c van transport from [facility].
--- NOTE | 2019-03-19 16:13 | CMPROGNOTE_ITS ---
Care Management Progress Note S/O-Met with Elly today. Advised her that referral was made to [facility] and we are awaiting response. Spoke with [facility] and they are awaiting pre-cert for SNF since she has a Medicare replacement policy. Since it is late afternoon now, they will hope to receive information by tomorrow AM. [facility]old [facility] that she is ready for d/c tomorrow. Elly states she just wants to go to SNF for short term until she is stronger to return home alone. A-68 yo woman admitted with DKA and abdominal pain. P-Awaiting response to referral to [facility] with anticipated transfer there tomorrow if accepted. Will need w/c van transport from [facility].
[2019-03-20 03:26] VITALS: BP 119/63; PULSE 62; RESP 16; TEMP 36.2; O2SAT 99
[2019-03-20] MEDS: Albuterol 2.5 MG/3 ML INH SOLN VIAL IH (03:40)
[2019-03-20] MEDS: Benzonatate 100 MG CAP PO ×2 (03:45→13:36)
[2019-03-20 04:10] VITALS: RESP 18; O2SAT 96
[2019-03-20 07:05] LABS: Abs Immature Grans 0.02 k/cumm (0.0-0.09); Absolute Basophil Count 0.03 k/cumm (0.0-0.2); Absolute Eosinophil Count 0.54 k/cumm (0.0-0.7); Absolute Lymphocyte Count 1.02 k/cumm (1.2-3.4); Absolute Monocyte Count 0.69 k/cumm (0.11-0.7); Absolute Neutrophil Count 2.72 k/cumm (1.2-6.7); Basophils % 0.6; Eosinophils % 10.8; HCT 34.4 % (36.0-46.0); Immature Grans % 0.4; Lymphocytes % 20.3; Mean Corpuscular Hemoglobin 29.6 pg (27.0-33.0); Mean Corpuscular Volume 92.7 fL (80-95); Mean Platelet Volume 10.6 fL (8.0-11.0); Monocytes % 13.7; Neutrophils % 54.2; Platelet Count 360 x1000/uL (130-400); RBC 3.71 m/cumm (4.00-5.20); RBC Distribution Width 15.9 % (11.7-14.6); White Blood Cell Count 5.02 k/cumm (4.4-10.8)
[2019-03-20 07:18] LABS: Magnesium 1.6 mg/dL (1.8-2.4)
[2019-03-20 07:22] LABS: Anion Gap 8.4 mmol/L (3-11); BUN 4 mg/dL (7-18); CO2 30.6 mmol/L (21.0-32.0); CREATININE 0.96 mg/dL (0.55-1.02); Calcium 8.6 mg/dL (8.5-10.1); Chloride 102 mmol/L (98-107); Estimated GFR 57.97 (mL/min/1.73m2); Glucose 251 mg/dL (70-100); Potassium 3.6 mmol/L (3.5-5.1); Sodium 141 mmol/L (136-145)
[2019-03-20 07:25] VITALS: BP 122/72; PULSE 103; RESP 20; TEMP 36.4; O2SAT 93
[2019-03-20] MEDS: Albuterol/Ipratropium 3 ML UPD VIAL UPD ×2 (07:28→11:54)
[2019-03-20] MEDS: Budesonide/Formoterol 160/4.5 6 GM 60 PUFF INH IH (07:29)
[2019-03-20 07:30] VITALS: O2SAT 91
[2019-03-20] MEDS: Furosemide 40 MG TAB PO (08:04)
[2019-03-20] MEDS: Lactobacillus Acidophilus CAP 1 CAP PO ×2 (08:04→13:05)
[2019-03-20] MEDS: Enoxaparin 40 MG/0.4 ML SYR SC (08:04)
[2019-03-20] MEDS: Insulin Glargine 300 UNITS/3 ML PEN 70 UNITS SC (08:05)
[2019-03-20] MEDS: Pantoprazole 40 MG TABCR PO (08:05)
[2019-03-20] MEDS: Sucralfate 1 GM TAB PO ×2 (08:05→11:42)
[2019-03-20] MEDS: Magnesium Chloride 64 MG TABCR PO ×2 (08:05→13:05)
[2019-03-20] MEDS: Insulin Aspart 300 UNITS/3 ML PEN SC ×2 (08:06→11:42)
[2019-03-20] MEDS: Nystatin POWDER 60 GM JAR TP ×2 (08:07→13:06)
[2019-03-20] MEDS: Magnesium Oxide 400 MG TAB 800 MG PO (08:19)
[2019-03-20] MEDS: Potassium Chloride 20 MEQ TABCR 40 MEQ PO (09:44)
[2019-03-20] MEDS: Ferrous Sulfate 325 MG TAB PO (09:44)
[2019-03-20 11:40] VITALS: BP 118/70; PULSE 97; RESP 20; TEMP 36.6; O2SAT 94
--- NOTE | 2019-03-20 11:53 | DI.RAD_ITS ---
SYMPTOMS/DIAGNOSIS: COUGH, WHEEZE, ? PNEUMONIA VS PLEURAL EFFUSION AP AND LATERAL CHEST: The images were obtained in an 8 1/2 rib inspiratory effort. Increased interstitial markings are noted and review of previous images suggest these findings are related to chronic lung disease. There is no gross infiltrate or pleural effusion. The heart is not enlarged. SUMMARY: No evidence of acute cardiopulmonary disease, however, if there is any further clinical question, then a repeat examination in a full inspiratory effort is recommended.
[2019-03-20 12:07] LABS: ANA Interpretation Negative (NEGAT)
--- NOTE | 2019-03-20 12:09 | PDOC.CMDIS ---
- If Service Date Differs Date of service: 03/20/19 Time of Service: 12:09 LACE Index Scoring Tool - Questions: Length of Stay (in days): 7 - 13 Acuity (Admit via E.D.?): Yes Comorbidities: Diabetes w/o Complication, Congestive Heart Failure, Chronic Pulmonary Disease E.D. Visits: 3 - Answers: Total Score: 16 Risk of Readmission: High Risk Care Management Discharge Reason for Hospitalization: DKA Discharge Plan: [facility] facility. CM reviewed the plan with Elly in the room she is aware of the [facility] to [facility] and feels that she is ready to go. Elly will follow up with her proivder as directed. CM coordinated wheel chair van with [facility] transfer to facility. Patient/Family Education Needs: Discharge edcuation, limitations and follow up plan of care including ask me three and self management. Services Needed at Discharge: Shelter Facility, Transportation
--- NOTE | 2019-03-20 12:23 | CMDISCH_ITS ---
- If Service Date Differs Date of service: 03/20/19 Time of Service: 12:09 LACE Index Scoring Tool - Questions: Length of Stay (in days): 7 - 13 Acuity (Admit via E.D.?): Yes Comorbidities: Diabetes w/o Complication, Congestive Heart Failure, Chronic Pulmonary Disease E.D. Visits: 3 - Answers: Total Score: 16 Risk of Readmission: High Risk Care Management Discharge Reason for Hospitalization: DKA Discharge Plan: [facility] facility. CM reviewed the plan with Elly in the room she is aware of the [facility] and feels that she is ready to go. Elly will follow up with her proivder as directed. CM coordinated wheel chair van with [facility] transfer to facility. Patient/Family Education Needs: Discharge edcuation, limitations and follow up plan of care including ask me three and self management. Services Needed at Discharge: [facility] Facility, Transportation
--- NOTE | 2019-03-20 12:36 | W.PM.DS.N ---
Date of service: 03/20/19 Time of Service: 12:36 DS: Diagnosis Discharge Diagnosis (1) Abdominal pain: Status: Acute (2) Ileus: Status: Acute (3) Hypomagnesemia: Status: Acute (4) COPD (chronic obstructive pulmonary disease): Status: Chronic (5) DKA (diabetic ketoacidoses): Status: Acute Discharge Plan Disposition Patient Disposition: SNF (LEVEL 1) [facility] Condition: Fair Discharge Details Reason For Visit: DKA Admit Date/Time: 03/12/19 19:27 Admit Provider: Víctor Nolasco Attending Provider: Víctor Nolasco Primary Care Provider: Mario Garcia [facility] Course Hospital Course: Elly Pina is a pleasant 68 year old female with a past medical history significant for uncontrolled type 2 diabetes, insulin dependent, COPD, interstitial lung disease, GERD, HTN, cognitive impairment who presented to the ED on 03/12/19 due to 3 days of vomiting and not taking her insulin. SHe was found to have a blood glucose of 847, HC03 of 12, K of 4.2. EKG showed sinus tachycardia, her CXR showed patchy perihilar opacity which could reflect chronic scarring versus atelectasis versus recurrent or chronic infiltrates. No other acute disease. She was initiated on IV fluids and insulin drip and admitted to the ICU. Over the following days her anion gap closed, her blood sugars improved. She was taken off of the insulin drip and moved out of the ICU. She was also found to have colitis, c. diff negative, and was treated with Cipro and flagyl. Her diet was advanced. Her diarrhea resolved, however, she had ongoing abdominal pain and nausea. A surgical consult was placed. Her abdominal x-ray showed Dilated loops of small bowel in the central abdomen measure up to 3.6 cm with a relatively collapsed appearance of distal loops. Gas is noted in the colon. Consider an early small bowel obstruction. She was given bowel rest with increased activity. Her abdominal pain and nausea resolved and she was able to tolerate advancing her diet. By the time of discharge, she is tolerating a soft diet. Her diet should be advanced as tolerated. In the process of treating the above, she was given IV fluid hydration. She became fluid overloaded and required diuresis. The day prior to her discharge, she was started on oral lasix 40mg PO BID, as she refused to have an IV restarted. At the time of her discharge, she was down to 92.9 kg from 96.2 the day prior and she had significant urinary output. She should remain on the higher lasix dose x3 days, then decrease to lasix 20 mg BID if indicated, with monitoring of daily weight and repeat BMP on 03/25/19. Of note, her echocardiogram on this admission showed LVEF of 55-60%. At the time of discharge, she continues to have a dry cough that has been present prior to admission. She had a repeat chest x-ray on the day of discharge that showed No evidence of acute cardiopulmonary disease, however, if there is any further clinical question, then a repeat examination in a full inspiratory effort is recommended. Consider trial of antihistamine. She had low magnesium and was given magnesium replacement. She was seen by Palliative care, she decided to remain a FULL CODE. She will continue to be followed by palliative care, Dr. Centeno. Home Meds and New Rx's Prescriptions: New furosemide 40 mg Tablet 40 mg PO BID@0830,1600 Qty: 0 RF: 0 zinc oxide 20 % Ointment 60 g topical PRN PRNQty: 0 RF: 0 ferrous sulfate 325 mg (65 mg iron) Tablet 325 mg PO BID@1000,2200 Qty: 0 RF: 0 nystatin 100,000 unit/gram Powder topical TID Qty: 0 RF: 0 clotrimazole 1 % Cream 60 g topical PRN PRNQty: 0 RF: 0 Novolog Flexpen U-100 Insulin 100 unit/mL Insulin Pen subcut 0800,1200,1700 Qty: 0 RF: 0 sodium chloride [Deep Sea Nasal] 0.65 % Aerosol,[place] 44 ml NS QID PRN PRNQty: 0 RF: 0 acidophilus-pectin, citrus 25 million cell -100 mg Tablet 1 cap PO TID Qty: 0 RF: 0 magnesium chloride [Mag 64] 64 mg Tablet,Delayed Release (Dr/Ec) 64 mg PO TID Qty: 0 RF: 0 vits A and D-white pet-lanolin Ointment 60 g topical PRN PRNQty: 0 RF: 0 cetirizine [Zyrtec] 10 mg tablet 5 mg PO DAILY Qty: 30 RF: 0 Continued Breo Ellipta 200-25 mcg/dose blister with device 1 inh IH DAILY Qty: 60 RF: 6 albuterol sulfate 2.5 mg /3 mL (0.083 %) solution for nebulization 2.5 mg Inhalation Q6H PRN (Reason: shortness of breath or wheezing) Qty: 10 RF: 6 Wheeled walker with seat and basket Qty: 1 RF: 0 compress.stocking,knee,reg,lrg misc .ROUTE .MEDSUPPLY Qty: 2 RF: 0 albuterol sulfate [Ventolin HFA] 8 GM HFA aerosol inhaler 2 puff Inhalation Q4H PRN Qty: 1 RF: 4 lancets 1 EACH misc 1 ea Miscellaneous TID PRNQty: 400 RF: 3 Blood Glucose Test 1 EACH strip 1 ea Miscellaneous TID PRNQty: 400 RF: 4 pen needle, diabetic [Pen Needle] 1 EACH needle 1 ea Miscellaneous QID Qty: 4 RF: 3 epinephrine [EpiPen 2-Gordon] 0.3 MG/0.3 ML auto-injector 0.3 mg IM ONCE Qty: 1 RF: 0 bisacodyl 5 mg tablet,delayed release (DR/EC) 5 mg PO DAILY Qty: 30 RF: 11 donepezil 5 mg tablet,disintegrating 5 mg PO DAILY Qty: 30 RF: 11 Oxygen Tank .ROUTE .MEDSUPPLY Qty: 1 RF: 0 Tradjenta 5 mg tablet 5 mg PO DAILY Qty: 30 RF: 6 benzonatate 100 mg capsule 100 mg PO QID PRN (Reason: cough) Qty: 60 RF: 3 simvastatin 40 mg tablet 40 mg PO HS Qty: 30 RF: 11 escitalopram oxalate 10 mg tablet 10 mg PO .NOON Qty: 30 RF: 11 acetaminophen [Tylenol Extra Strength] 500 mg Tablet 1,000 mg PO Q6H PRNRF: 0 pantoprazole 40 mg Tablet,Delayed Release (Dr/Ec) 40 mg PO BID Qty: 60 RF: 0 dextromethorphan-guaifenesin 10-100 mg/5 mL Syrup 10 ml PO Q4H PRN PRNQty: 100 RF: 0 ketoconazole 2 % Cream 1 applic topical BID Qty: 30 RF: 0 sucralfate 1 gram Tablet 1 g PO AC & HS Qty: 120 RF: 0 acidophilus-pectin, citrus 25 million cell -100 mg Tablet 1 cap PO TID Qty: 90 RF: 0 Lantus Solostar U-100 Insulin 100 unit/mL (3 mL) insulin pen 70 unit SC HS Qty: 15 RF: 3 Discontinued cyclobenzaprine 5 mg tablet 5 mg PO TID PRN (Reason: muscle spasm) Qty: 42 RF: 3 blister gordon RF: 0 furosemide 20 mg tablet 20 mg PO BID PRN (Reason: leg swelling) Qty: 180 RF: 3 Humalog KwikPen Insulin 100 unit/mL insulin pen See Rx Instructions subcut as directed 30 Days Qty: 15 RF: 6 guaifenesin [Mucinex] 600 mg Tablet Extended Release 12hr 1,200 mg PO BID PRN PRN (Reason: cough) Qty: 30 RF: 0 metoclopramide HCl [Reglan] 10 mg tablet 10 mg PO Q6H Qty: 10 RF: 0 Discharge Instructions Instructions: Diabetic Ketoacidosis (DC) Additional Instructions: Take lasix 40 mg PO BID x3 days. Then decrease to 20 mg PO daily. Repeat BMP on 03/25/19. Daily weights. Stand Alone Forms: Nursing Discharge Form Activity:: Activity as Tolerated Equipment/Supplies:: No Equipment Needed Diet:: soft, carb consistent Discharge Orders Discharge Orders: Discharge Order (Routine); Ordered 03/20/19 Ordered By: Margi Mercedes Other Ambulatory Orders: Basic Metabolic Panel (Routine) Timeframe: [id number] Facility: [facility] - Location: Access Ordered By: Margi Mercedes Exam Narrative Exam Narrative: General: appears older than stated age, lying in bed with head of bed elevated, in no acute distress. Speaks in complete sentences without shortness of breath. HEENT: normocephalic, atruamatic, pupils equal and round, extraocular movements intact, mucous membranes moist. Neck: supple Cardiovascular: heart has regular rate and rhythm, no murmur appreciated. Respiratory: respirations even and unlabored, dry cough noted. Rales to bilateral bases noted, few scattered wheezes noted. GI: abdomen with normal bowel sounds, soft, nontender on palpation. Extremities: +1 edema to bilateral upper and lower extremities. Pedal pulses palpable bilaterally. DS: Data Vitals/I&O Vitals and I&O: Vital Signs Temperature 36.4 C L 03/20/19 07:25 Temperature Source Tympanic 03/20/19 07:25 Pulse 103 H 03/20/19 07:25 Pulse Rhythm Regular 03/20/19 09:23 Pulse 104 H 03/15/19 19:00 Respiratory Rate 20 03/20/19 07:25 Respiratory Effort 03/20/19 09:23 Respiratory Depth Normal 03/20/19 09:23 Respiratory Pattern Normal 03/20/19 09:23 Blood Pressure 122/72 03/20/19 07:25 Blood Pressure Mean 55 03/15/19 18:01 Blood Pressure Position Sitting 03/14/19 12:10 Pulse Oximetry 93 L 03/20/19 07:25 Oxygen Delivery Method Nasal Cannula 03/20/19 09:15 Oxygen Flow Rate 2 03/20/19 09:15 Pain Level 0 03/19/19 16:12 Comment 03/18/19 11:19 Intake & Output 03/19/19 03/20/19 03/20/19 23:59 11:59 23:59 Intake Total 840 / 1650 610 / 610 Output Total 1500 / 3550 1300 / 1300 Balance -660 / -1900 -690 / -690 Weight 92.9 kg Intake: Oral 840 / 1650 610 / 610 Output: Urine 1500 / 3550 1300 / 1300 Other: Urine Color Pale Pale Yellow Urine Appearance Clear Clear Urine Odor None None Comment patient was also incontinent of a very large amount of urine. Voiding Methods Bedside Commode Bedside Commode Completed studies during hospitalization [Text1]: 03/12/19: AP AND LATERAL CHEST: The exam is limited by poor pulmonary inflation. The previously noted central venous catheter has been removed. Changes of underlying interstitial disease are again noted. There is stable right sided volume loss. The heart appears mildly enlarged. IMPRESSION: Chronic changes. No superimposed infiltrate, effusion or pulmonary edema CT OF THE ABDOMEN AND PELVIS: Comparison is made with January,. A noncontrast exam was performed. The exam is limited by patient motion. The lungs are again poorly inflated and show interstitial changes. The findings are greater on the right, but there is some improvement when compared with the previous exam. The liver now shows decreased attenuation in the left lobe, as well as caudate lobe and near the falciform ligament, consistent with geographic fatty infiltration. There is a stable low density area seen in the posterior right lobe of the liver. The patient is status post cholecystectomy. The pancreas is severely atrophic. The spleen is normal in size. The adrenals are unremarkable. There is a small hiatal hernia. The previous exam questioned gastric wall thickening. This area is not well evaluated due to motion and lack of contrast. There is no small or large bowel dilatation. The colon is decompressed throughout and shows fat within the wall. The appendix is not seen. There is no free air or free fluid. A [place] catheter is noted in the bladder, which is decompressed. The uterus is unremarkable. The ovaries are not seen. There is a stable compression fracture of the superior endplate of L1. IMPRESSION: 1. Geographic fatty infiltration of the left lobe of the liver. This is new since the previous exam. 2. No evidence of bowel obstruction or acute inflammation. 3. Chronic interstitial changes at the lung bases with some improvement in appearance when compared with the previous exam. 03/13/19: PORTABLE CHEST: Comparison is made with [id number]. The heart size is again noted to be normal. Again noted are low lung volumes. There is mild respiratory motion. There has been no change in the appearance of the lungs, with some right sided volume loss and chronic interstitial changes, right greater than left. No superimposed acute infiltrate, effusion or pulmonary edema is seen. IMPRESSION: Stable appearance of the chest. 03/14/19: PORTABLE AP CHEST: When compared with the previous examination of 03/13, increased interstitial densities are noted in the lungs. There is no gross infiltrate or evidence of a pleural effusion. The heart is not enlarged. SUMMARY: Question increased pulmonary densities when compared with the previous examination. The possibility of an acute pneumonitis could not be excluded in this patient. PORTABLE ABDOMEN: The bowel gas pattern is nonspecific. There is no evidence of gross free air on this supine examination. There is no evidence of gross organomegaly or a localized intra-abdominal or pelvic mass. SUMMARY: No evidence of an acute abdomen. If there is any further question regarding the possibility of free air, then further assessment with an upright or decubitus projections of the abdomen is suggested. Date of study: 03/14/2019 Transthoracic Echocardiography M-mode, complete 2D, complete spectral Doppler, and color Doppler *STUDY CONCLUSIONS* Summary: 1. Left ventricle: The cavity size was normal. Wall thickness was increased in a pattern of mild LVH. Systolic function was normal. The estimated ejection fraction was 55-60%. Wall motion was normal; there were no regional wall motion abnormalities. 2. Ventricular septum: Septal motion showed paradoxical motion consistent with Bundle Branch Block. The contour showed systolic flattening. These changes are consistent with RV pressure overload. 3. Right ventricle: The cavity size was dilated. Systolic function was low normal. Hypokinesis of the RV apex. 03/15/19: PORTABLE CHEST: Comparison is made with [id number]. The cardiac and mediastinal contours are unchanged. Again there are low lung volumes and evidence of underlying chronic interstitial changes. No superimposed infiltrate, effusion or pulmonary edema is seen. IMPRESSION: No acute abnormality. 03/16/19: FLAT AND UPRIGHT ABDOMEN: Routine examination was performed. The visualized lung bases appear clear. No organomegaly or pneumoperitoneum is seen. There are a few mildly dilated loops of small bowel in the central abdomen. These are nonspecific. Early obstruction or ileus can not be excluded. Degenerative changes are seen in the spine. IMPRESSION: Nonspecific mildly dilated loops of small bowel seen in the central abdomen as described above. 03/17/19: FLAT AND UPRIGHT ABDOMEN: Comparison is 03/16/19. Nonspecific mildly dilated loops of small bowel are seen in the central abdomen. They are grossly unchanged compared to the prior examination. No pneumothorax or organomegaly is seen. IMPRESSION: No change in appearance of the abdomen. 03/18/19: FLAT AND UPRIGHT ABDOMEN at 7:57 am: There are again seen mildly dilated loops of small bowel in the central abdomen. There are again seen mildly dilated loops of small bowel in the central abdomen. There is air noted within the colon. No organomegaly or pneumoperitoneum is seen. IMPRESSION: Stable appearance of the abdomen. The findings may represent ileus or early small bowel obstruction. Follow up as clinically appropriate. 03/20/19: AP AND LATERAL CHEST: The images were obtained in an 8 1/2 rib inspiratory effort. Increased interstitial markings are noted and review of previous images suggest these findings are related to chronic lung disease. There is no gross infiltrate or pleural effusion. The heart is not enlarged. SUMMARY: No evidence of acute cardiopulmonary disease, however, if there is any further clinical question, then a repeat examination in a full inspiratory effort is recommended. Labs on day of discharge: Labs from last 24 hours 03/20/19 03/20/19 03/20/19 06:08 06:08 06:08 WBC 5.02 RBC 3.71 L Hgb 11.0 L Hct 34.4 L MCV 92.7 MCH 29.6 MCHC 32.0 RDW 15.9 H Plt Count 360 MPV 10.6 Immature Gran % 0.4 Neutrophils % 54.2 Lymphocytes % 20.3 Monocytes % 13.7 Eosinophils % 10.8 Basophils % 0.6 Absolute Neutrophils 2.72 Absolute Lymphocytes 1.02 L Absolute Monocytes 0.69 Absolute Eosinophils 0.54 Absolute Basophils 0.03 Sodium 141 Potassium 3.6 Chloride 102 Carbon Dioxide 30.6 Anion Gap 8.4 BUN 4 L Creatinine 0.96 Estimated GFR/1.73 m2 57.97 Glucose 251 H D Calcium 8.6 Magnesium 1.6 L PFSH Medical History Metabolic acidosis with normal anion gap and bicarbonate losses (Acute) CHF (congestive heart failure) (Chronic) DKA (diabetic ketoacidoses) (Acute) Abdominal pain (Acute) Acute kidney injury (nontraumatic) (Acute) Internal derangement of right knee (Chronic) Back pain (Chronic) Asthma (Chronic) Osteoporosis (Chronic 03/16/18) Neck pain (Chronic 03/16/18) Migraine (Chronic 04/03/14) Long-term use of high-risk medication (Chronic 03/16/18) Interstitial lung disease (Chronic 03/16/18) History of shingles (Resolved 03/16/18) Gastroesophageal reflux disease without esophagitis (Chronic 03/16/18) Essential hypertension (Chronic 07/17/13) Edema (Chronic 03/16/18) Dyspnea (Chronic 03/16/18) Depressive disorder (Chronic) Cubital tunnel syndrome (Resolved 03/16/18) Cognitive impairment (Chronic 03/16/18) Chronic constipation (Chronic 03/16/18) Anxiety (Chronic 03/16/18) Acute gastroenteritis (Resolved 03/16/18) Umbilical hernia (Chronic) Type II diabetes mellitus, uncontrolled (Chronic) Total urinary incontinence (Chronic) Shoulder pain (Chronic) Post herpetic neuralgia (Chronic 03/16/18) Peripheral neuralgia (Chronic) 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) Hyperlipemia (Acute) Asthma (Chronic) Insulin dependent diabetes mellitus (Chronic) Surgical History Appendectomy Arthroscopy, Shoulder Bilateral salpingectomy with oophorectomy section Cholecystectomy Ligation of fallopian tube Thoracoscopic (R)Lung Bx (02/12/18) Family History Mother Diabetes Essential hypertension CHF (congestive heart failure) Heart disease Dementia Father Diabetes Essential hypertension CAD (coronary artery disease) Heart disease Hyperlipidemia Stroke Sister Diabetes Personal history of malignant neoplasm Asthma Lung cancer Brother Diabetes Essential hypertension Personal history of malignant neoplasm Hyperlipidemia Asthma Mesothelioma Brother Pulmonary embolus with infarction Daughter No problems noted. Son No problems noted. Social History Smoking/Tobacco Use Status: Never Alcohol Intake: never Details: monthly or less Drug use: Never Substance use type: does not use Adopted: No Caregiver/Support person: No Foster care: No Household members: none Housing: apartment Number of Children: 2 number of grandchildren: 5 Communication Needs: Hard of Hearing and Corrective Lenses Education Level: middle school Do you need help understanding health information?: Always current occupation: disabled Pets and animals: No What is your relationship status?: How often do you talk on the phone with friends or family?: twice per week How often do you get together with friends or relatives?: once per week Panel score (0-1 are the most socially isolated patients): 1 What type of physical activity do you participate in: none and sedentary lifestyle Duration: 15-30 minutes/day Frequency: daily Special devin needs: No Agree to transfusion: Yes Seatbelt use: always Drive intox or ride w/intox special education bus driver: No Water heater temp set <120 deg: Yes Working smoke detector in home: Yes Fire extinguisher in home: Yes Carbon monox detector in home: Yes Do you feel safe at home: Yes Do you feel safe in your relationship?: Yes Additional Social history: Grandson Jorge Luis used to live with her. His phone # is [phone]. Daughter Caridad lives in [place]. Son Himanshu lives in [facility], not as close to him. Gets together with brother Brian regularly who takes her shopping and goes for drives.
--- NOTE | 2019-03-21 08:50 | PT.INDS ---
Date of service: 03/21/19 Time of Service: 08:50 PT Notes Inpatient Physical Therapy Discharge Summary Dates: 03/21/2019 Dates of Service: 03/15/2019 through 03/20/2019 This is a clinical summary of care provided on the duration of dates listed above. No charge was made in the completion of this documentation. Referring Doctor: Randi Dyer MD PT Orders: PT CONSULT: Eval and Treat Precautions: Standard, fall risk Patient Profile/Admitting Diagnosis: 68 year old female admitted through ER with DKA, due to poorly managedDM Type II. She has been bid ridden x 3 days during her medical treatment, now ready for attempt of mobility. PMHX: Past Medical History: Internal derangement of right knee (Acute) Back pain (Chronic) Asthma (Chronic) Osteoporosis (Chronic 03/16/18) Neck pain (Chronic 03/16/18) Migraine (Chronic 04/03/14) Long-term use of high-risk medication (Chronic 03/16/18) Interstitial lung disease (Chronic 03/16/18) History of shingles (Resolved 03/16/18) Gastroesophageal reflux disease without esophagitis (Chronic 03/16/18) Essential hypertension (Chronic 07/17/13) Edema (Chronic 03/16/18) Dyspnea (Chronic 03/16/18) Depressive disorder (Chronic) Cubital tunnel syndrome (Resolved 03/16/18) Cognitive impairment (Chronic 03/16/18) Chronic constipation (Chronic 03/16/18) Anxiety (Chronic 03/16/18) Acute gastroenteritis (Resolved 03/16/18) Umbilical hernia (Chronic) Type II diabetes mellitus, uncontrolled (Chronic) Total urinary incontinence (Chronic) Shoulder pain (Chronic) Post herpetic neuralgia (Chronic 03/16/18) Peripheral neuralgia (Chronic) 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 She is (I) with all ADLs/IADLs at her baseline level of function. She has a tub shower which is difficulty for her at times to perform her bathing routine. She wishes for a shower chair. She notes that she did have HH nursing, OT and PT in her home which has since discharged her. A neighbor helps with her production generalist as she is unable to do this on her own. She gets food from meals on wheels. She notes that she has been unable to go grocery shopping for a month. She states that she gets rides from [employer]. She was going to outpatient Physical Therapy and reports that she would like to return to pool therapy. Equipment owned/DME: [employer] which she reports she has not been to in a month, [facility], wheelchair, [employer], Home O2 which she is at 2L O2 at all times. Grab bars. Would like a shower chair. Current Functional Limitations: Supervision with bed mobility, dependent on HOB elevation, CG with sit to stand, unable to walk. Subjective: NT Objective: General Observation: NT Mental Status: NT Pain: NT ROM: Right Upper Extremity: WFL Left Upper Extremity: WFL Right Lower Extremity: WFL Left Lower Extremity: WFL Strength: Right Upper Extremity: Grossly 4/5 Left Upper Extremity: Grossly 4/5 Right Lower Extremity: Grossly 5/5 knees and below, hip flexion 3/5 Left Lower Extremity: Grossly 5/5 knees and below, hip flexion 3/5 Unable to attempt bridge due to glute weakness, able to lift legs I for removal of SED's Sensation: Intact to light touch and pressure B Bed Mobility/Transfers: Close supervision with bed mobility SBA sit<>stand with RW Bed to chair: SBA Chair to bed: SBA Gait: Per PT documentation 03/11/2019 patient was able to tolerate 120 feet of level surface ambulation with FW W with FWB requiring only SBA of RAG WASHER with 3 standing rests, oxygen saturation with 2 L of oxygen via NC, S OB was noted by RAG WASHER. Balance: Static Sitting: Good Dynamic Sitting: Fair Static Standing: Fair Dynamic Standing: Fair Assessment: Patient is a 68 year old female referred to physical therapy services with the diagnosis of DKA. Patient presents with clinical signs and symptoms consistent with global weakness, deconditioned, and gait deficit, secondary to physical impairment developing during medical course. Impairment level findings: Unable to ambulate, gross UE and LE weakness, and balance deficit. Impairments are contributing to the following functional limitations: AMPAC score 57% disability, assistance required with bed mobility and transfers, unable to ambulate, not able to care for self. Goals: Goals X1 week 1. Supine-Sit Close supervision MET 2. Sit-Supine close supervision MET 3. Sit-Stand close supervision, at RW NOT MET 4. Stand-Sit close supervision, at RW NOT MET 5. Bed-Chair CG, at RW NOT MET 6. Chair-Bed CG, at RW NOT MET 7. Gait 20 ft, RW, CG NOT MET 9. Independent with home exercise program NOT MET 10. Balance Good with RW NOT MET DISCHARGE RECOMMENDATIONS: Patient will benefit from snf facility placement in order to progress mobility level, strength, and balance in preparation for a safe discharge to home. TREATMENT CODE/TIME: NC Thank you very much for this referral. Iva Roldan PT, DPT, CLT [facility]
--- NOTE | 2019-03-21 08:58 | INDS_ITS ---
Date of service: 03/21/19 Time of Service: 08:50 PT Notes Inpatient Physical Therapy Discharge Summary Dates: 03/21/2019 Dates of Service: 03/15/2019 through 03/20/2019 This is a clinical summary of care provided on the duration of dates listed above. No charge was made in the completion of this documentation. Referring Doctor: Randi Dyer MD PT Orders: PT CONSULT: Eval and Treat Precautions: Standard, fall risk Patient Profile/Admitting Diagnosis: 68 year old female admitted through ER with DKA, due to poorly managedDM Type II. She has been bid ridden x 3 days during her medical treatment, now ready for attempt of mobility. PMHX: Past Medical History: Internal derangement of right knee (Acute) Back pain (Chronic) Asthma (Chronic) Osteoporosis (Chronic 03/16/18) Neck pain (Chronic 03/16/18) Migraine (Chronic 04/03/14) Long-term use of high-risk medication (Chronic 03/16/18) Interstitial lung disease (Chronic 03/16/18) History of shingles (Resolved 03/16/18) Gastroesophageal reflux disease without esophagitis (Chronic 03/16/18) Essential hypertension (Chronic 07/17/13) Edema (Chronic 03/16/18) Dyspnea (Chronic 03/16/18) Depressive disorder (Chronic) Cubital tunnel syndrome (Resolved 03/16/18) Cognitive impairment (Chronic 03/16/18) Chronic constipation (Chronic 03/16/18) Anxiety (Chronic 03/16/18) Acute gastroenteritis (Resolved 03/16/18) Umbilical hernia (Chronic) Type II diabetes mellitus, uncontrolled (Chronic) Total urinary incontinence (Chronic) Shoulder pain (Chronic) Post herpetic neuralgia (Chronic 03/16/18) Peripheral neuralgia (Chronic) 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 She is (I) with all ADLs/IADLs at her baseline level of function. She has a tub shower which is difficulty for her at times to perform her bathing routine. She wishes for a shower chair. She notes that she did have HH nursing, OT and PT in her home which has since discharged her. A neighbor helps with her skein straightener as she is unable to do this on her own. She gets food from meals [employer] wheels. She notes that she has been unable to go grocery shopping for a month. She states that she gets rides from [employer]. She was going to outpatient Physical Therapy and reports that she would like to return to pool therapy. Equipment owned/DME: [employer] which she reports she has not been to in a month, [facility], wheelchair, F[employer], Home O2 which she is at 2L O2 at all times. Grab bars. Would like a shower chair. Current Functional Limitations: Supervision with bed mobility, dependent on HOB elevation, CG with sit to stand, unable to walk. Subjective: NT Objective: General Observation: NT Mental Status: NT Pain: NT ROM: Right Upper Extremity: WFL Left Upper Extremity: WFL Right Lower Extremity: WFL Left Lower Extremity: WFL Strength: Right Upper Extremity: Grossly 4/5 Left Upper Extremity: Grossly 4/5 Right Lower Extremity: Grossly 5/5 knees and below, hip flexion 3/5 Left Lower Extremity: Grossly 5/5 knees and below, hip flexion 3/5 Unable to attempt bridge due to glute weakness, able to lift legs I for removal of SED's Sensation: Intact to light touch and pressure B Bed Mobility/Transfers: Close supervision with bed mobility SBA sit<>stand with RW Bed to chair: SBA Chair to bed: SBA Gait: Per PT documentation 03/11/2019 patient was able to tolerate 120 feet of level surface ambulation with FW W with FWB requiring only SBA of DISTRIBUTION DRIVER with 3 standing rests, oxygen saturation with 2 L of oxygen via NC, S OB was noted by DISTRIBUTION DRIVER. Balance: Static Sitting: Good Dynamic Sitting: Fair Static Standing: Fair Dynamic Standing: Fair Assessment: Patient is a 68 year old female referred to physical therapy services with the diagnosis of DKA. Patient presents with clinical signs and symptoms consistent with global weakness, deconditioned, and gait deficit, secondary to physical impairment developing during medical course. Impairment level findings: Unable to ambulate, gross UE and LE weakness, and balance deficit. Impairments are contributing to the following functional limitations: AMPAC score 57% disability, assistance required with bed mobility and transfers, unable to ambulate, not able to care for self. Goals: Goals X1 week 1. Supine-Sit Close supervision MET 2. Sit-Supine close supervision MET 3. Sit-Stand close supervision, at RW NOT MET 4. Stand-Sit close supervision, at RW NOT MET 5. Bed-Chair CG, at RW NOT MET 6. Chair-Bed CG, at RW NOT MET 7. Gait 20 ft, RW, CG NOT MET 9. Independent with home exercise program NOT MET 10. Balance Good with RW NOT MET DISCHARGE RECOMMENDATIONS: Patient will benefit from care home facility placement in order to progress mobility level, strength, and balance in preparation for a safe discharge to home. TREATMENT CODE/TIME: NC Thank you very much for this referral. Iva Roldan PT, DPT, CLT [facility]
== END 2019-03-20 14:04 | disposition skilled nursing facility (03) | DRG 637 ==
LOC: ER 20:55 → ICU 20:57 → MS 03-20 12:46 → ICU 03-22 07:41
PROVIDERS: Internal Medicine; Nurse Practitioner Acute Care; Nurse Practitioner Family; Surgery; Admitting Provider General Practice; Emergency Provider Physician Assistant; PCP Family Medicine; Visit Provider Internal Medicine
DX: E11.10 Type 2 diabetes mellitus with ketoacidosis without coma (principal); I50.33 Acute on chronic diastolic (congestive) heart failure; K56.7 Ileus, unspecified; J96.11 Chronic respiratory failure with hypoxia; J84.9 Interstitial pulmonary disease, unspecified; Z68.41 Body mass index [BMI] 40.0-44.9, adult; N17.9 Acute kidney failure, unspecified; T38.3X6A Underdosing of insulin and oral hypoglycemic [antidiabetic] drugs, initial encounter; Z91.138 Patient's unintentional underdosing of medication regimen for other reason; K52.9 Noninfective gastroenteritis and colitis, unspecified; R10.9 Unspecified abdominal pain; R11.0 Nausea; E86.0 Dehydration; E83.42 Hypomagnesemia; E87.70 Fluid overload, unspecified; J44.9 Chronic obstructive pulmonary disease, unspecified; E11.65 Type 2 diabetes mellitus with hyperglycemia; I11.0 Hypertensive heart disease with heart failure; I50.810 Right heart failure, unspecified; Z79.4 Long term (current) use of insulin; K21.9 Gastro-esophageal reflux disease without esophagitis; R05 Cough; Z51.5 Encounter for palliative care; I27.29 Other secondary pulmonary hypertension; G31.84 Mild cognitive impairment of uncertain or unknown etiology; Z71.89 Other specified counseling; E66.01 Morbid (severe) obesity due to excess calories; G47.30 Sleep apnea, unspecified; Z71.3 Dietary counseling and surveillance; Z60.2 Problems related to living alone
CPT/HCPCS: 36415; 36416; 51702; 80048; 80051; 80053; 82805; 82947; 82962; 83690; 84520; 87329; 93005; 93306; 94640; 96365; 96366; 96375; 97110; 97162; 97166; 97530; 97535; 99222; 99223; 99231; 99232; 99233; 99239; 99253; 99255; 99285; 99291; J1650; NC; 36600; 71045; 71046; 74018; 74019; 74176; 81003; 81015; 82565; 82728; 83540; 83550; 83605; 83735; 84436; 84443; 84484; 85025; 86038; 86140; 87324; 87798; 93010; J0744; J0780; J1941; J2405; J3475; J3480; J7613; J7620

== ENCOUNTER 2019-03-26 11:56 | Outpatient (CLI) | payer OTHER, MEDICAID, SELFPAY ==
[2019-03-26 13:35] LABS: Anion Gap 10.1 mmol/L (3-11); BUN 6 mg/dL (7-18); CO2 31.9 mmol/L (21.0-32.0); CREATININE 0.96 mg/dL (0.55-1.02); Calcium 8.4 mg/dL (8.5-10.1); Chloride 102 mmol/L (98-107); Estimated GFR 57.97 (mL/min/1.73m2); Glucose 164 mg/dL (70-100); Sodium 144 mmol/L (136-145)
[2019-03-26 13:44] LABS: Potassium 2.9 mmol/L (3.5-5.1)
== END 2019-03-26 12:16 ==
PROVIDERS: PCP Family Medicine; Visit Provider Nurse Practitioner Adult Health
DX: E11.8 Type 2 diabetes mellitus with unspecified complications (principal)
CPT/HCPCS: 36415; 80048

== ENCOUNTER 2019-03-28 11:08 | Outpatient (REF) | payer OTHER, MEDICAID, SELFPAY ==
[2019-03-28 11:56] LABS: Anion Gap 10.1 mmol/L (3-11); BUN 9 mg/dL (7-18); CO2 31.9 mmol/L (21.0-32.0); CREATININE 0.87 mg/dL (0.55-1.02); Calcium 8.5 mg/dL (8.5-10.1); Chloride 101 mmol/L (98-107); Glucose 218 mg/dL (70-100); Sodium 143 mmol/L (136-145)
== END 2019-03-28 11:28 ==
LOC: LBN 11:08
PROVIDERS: PCP Family Medicine; Visit Provider Nurse Practitioner Adult Health
DX: E87.6 Hypokalemia (principal)
CPT/HCPCS: 80048

== ENCOUNTER 2019-04-02 10:29 | Outpatient (CLI) | payer OTHER, MEDICAID, SELFPAY ==
[2019-04-02 12:08] LABS: Anion Gap 12.1 mmol/L (3-11); BUN 9 mg/dL (7-18); CO2 27.9 mmol/L (21.0-32.0); CREATININE 0.95 mg/dL (0.55-1.02); Calcium 9.1 mg/dL (8.5-10.1); Chloride 102 mmol/L (98-107); Estimated GFR 58.68 (mL/min/1.73m2); Glucose 301 mg/dL (70-100); Potassium 3.6 mmol/L (3.5-5.1); Sodium 142 mmol/L (136-145)
== END 2019-04-02 10:49 ==
PROVIDERS: PCP Family Medicine; Visit Provider Nurse Practitioner Adult Health
DX: E83.42 Hypomagnesemia (principal)
CPT/HCPCS: 36415; 80048

== ENCOUNTER 2019-05-23 12:18 | Outpatient (CLI) | payer OTHER, MEDICAID, SELFPAY ==
[2019-05-24 09:37] LABS: ALT 16 U/L (12-78); AST 15 U/L (15-37); Albumin 3.9 g/dL (3.4-5.0); Alkaline Phosphatase 113 U/L (46-116); Anion Gap 11.7 mmol/L (3-11); BUN 12 mg/dL (7-18); Bilirubin, Total 0.6 mg/dL (0.2-1.0); CO2 31.3 mmol/L (21.0-32.0); CREATININE 0.97 mg/dL (0.55-1.02); Calcium 9.7 mg/dL (8.5-10.1); Chloride 98 mmol/L (98-107); Estimated GFR 57.28 (mL/min/1.73m2); Glucose 153 mg/dL (70-100); LDL CHOLESTEROL 116 mg/dL (<100); Potassium 3.5 mmol/L (3.5-5.1); Sodium 141 mmol/L (136-145); Total Protein 7.6 g/dL (6.4-8.2)
[2019-05-24 09:38] LABS: Hemoglobin A1C 9.6 % (4.5-6.2)
== END 2019-05-23 12:38 ==
PROVIDERS: PCP Family Medicine; Visit Provider Nurse Practitioner Family
DX: E11.65 Type 2 diabetes mellitus with hyperglycemia (principal)
CPT/HCPCS: 80053; 83721; 82043; 82570; 83036

== ENCOUNTER 2019-05-27 10:50 | Outpatient (REF) | payer OTHER, MEDICAID, SELFPAY ==
[2019-05-27 13:10] LABS: COMMENT (LAB VIEW ONLY) 115.36 mg/dL; Microalb ug/mg Crea 31.4 ug/mg Cr
== END 2019-05-27 11:10 ==
LOC: LBN 10:50
PROVIDERS: PCP Family Medicine
DX: E11.65 Type 2 diabetes mellitus with hyperglycemia (principal)
CPT/HCPCS: 82043; 82570

== ENCOUNTER 2019-09-25 16:07 | Inpatient (IN) | payer OTHER, MEDICAID, SELFPAY ==
[2019-09-25] VITALS (70 sets, daily range): BP systolic 103–141; BP diastolic 34–67; PULSE 77–103; RESP 12–26; TEMP 36.2–37; O2SAT 96–100
--- NOTE | 2019-09-25 16:23 | ED.GENADUL_ITS ---
Discharge Plan Discharge Details Chief Complaint: Nausea/Vomit/Diar Admit Date/Time: 09/25/19 19:29 Admit Provider: Tre Carrizales Attending Provider: Tre Carrizales Primary Care Provider: Mario Garcia ED Provider: Tsering Finch Discharge Data Discharge Date/Time-TO BE ENTERED AT DEPARTURE: 09/25/19 18:55 Medical Decision Making Patient is a 69 year old female with c/c of general malaise for the past week. States that her glucose is typically >300 but that it has been in the 500-800 range this week. Endorses fatigue. Has been having some lightheadedness with standing. Denies fevers. Has chronic cough which she states is unchanged. Patient is a on 2L NC at baseline associated with her COPD, states that this is typical and denies any increase in her SOB. Denies abodminal pain but has had N/V for the past few days. REports vomiting x 4 today. Denies diarrhea. Has not been taking her medications routinely. Concerned that patient had DKA, with the acute increase, I am concerned that she has likely infectious source causing her increase in glucose. This may be either secondary to or leading to her having the N/V. Will begin aggressive hydration and obtain labs. Potassium 5.5. Glucose 839. Lactate2.8. Gap of 20. Will order VBG. Blood cultures pending. Patient receiving bolus fluid, will begin on 0.1u/kg/hr IV insulin drip. WBC 12.19, VBG pH of 7.2, HCO3 16, CO2 15, O2 63% Contacted by queta who advised that patient is very noncompliant. He exp resses frustration that patient often goes >1 week without checking her glucose. States that she does not typically take her medications. Would like ot discuss living situation with rn coronary care unit further. One hour after beginning insulin, glucose down to 545, will hold for 30 minutes and lower to 3units/kg/hour per protocol. She has received 2L of fluid, patient put on a rate. Will consult with hospitalist regarding admission. Influenza negative. Consulted with hospitalist who agrees to admission. Patient admitted to ICU for insulin drip for DKA. Second IV inserted via US in LUE by myself. We reviewed cxr, concerning for infectious process, will begin on abx. Patient started on doxycycline and ceftriaxone. She has not been taking her medication, no concern for interaction at this time. She reports she has not taken any of her medications in the past few days, unclear when she last took these. Just prior to patient going upstairs, her repeat glucose continues to drop, now down to 500, will stop insulin infusion. HPI General Mode of arrival: EMS . Date/Time Provider Initiated Documentation: 09/25/19 16:23 . Limitations to Documentation: no limitations . Information obtained by: patient, EMS and RN notes reviewed . HPI Narrative: Patient is a 69 year old poorly controlled type II diabetic presenting today with c/c of general malaise and elevated glucose x 1 week. States that typically her glucose is >300 but reports she does not check this routinely. Does not take her medications on a daily basis. Endorses cough but states that this is chronic, associates with her COPD, and states that it is unchanged. Denies fevers/chills. Denies CP or SOB. Related Data Home Medications Medication Instructions Recorded Confirmed albuterol sulfate [Ventolin HFA] 2 puff INHALATION Q4H PRN #1 10/09/14 09/25/19 inhaler pen needle, diabetic [Pen Needle] #4 box 03/23/18 07/16/19 epinephrine [EpiPen 2-Gordon] 0.3 mg IM ONCE #1 pack 05/07/18 09/25/19 acetaminophen [Tylenol Extra 1,000 mg PO Q6H PRN 08/06/18 07/16/19 Strength] fluticasone furoate 200 1 inh IH DAILY #60 each 09/06/18 09/26/19 mcg-vilanterol 25 mcg/dose inhalation powder compress.stocking,knee,reg,lrg #2 each 10/29/18 07/16/19 albuterol sulfate 2.5 mg INHALATION Q6H PRN #10 vial 11/09/18 09/25/19 Oxygen #1 each 11/29/18 07/16/19 linagliptin 5 mg tablet 5 mg PO DAILY #30 tab 12/18/18 09/26/19 ketoconazole 1 applic TOPICAL BID #30 gm 01/31/19 09/25/19 Wheeled walker with seat and basket #1 ea 02/07/19 07/16/19 escitalopram oxalate 10 mg tablet 10 mg PO .NOON #30 tab-cap 02/26/19 09/26/19 simvastatin 40 mg tablet 40 mg PO HS #30 tab 02/26/19 09/25/19 cetirizine [Zyrtec] 5 mg PO DAILY #30 tab 03/20/19 09/26/19 clotrimazole 60 g TOPICAL PRN PRN #0 g 03/20/19 09/25/19 ferrous sulfate 325 mg PO BID@1000,2200 #0 tab 03/20/19 09/25/19 magnesium chloride [Mag 64] 64 mg PO TID #0 tab 03/20/19 09/25/19 sodium chloride [Deep Sea Nasal] 44 ml NS QID PRN PRN #0 ml 03/20/19 09/25/19 vits A and D-white pet-lanolin 60 g TOPICAL PRN PRN #0 g 03/20/19 09/25/19 zinc oxide 60 g TOPICAL PRN PRN #0 g 03/20/19 09/25/19 pantoprazole 40 mg tablet,delayed 40 mg PO DAILY #90 tab 03/25/19 09/25/19 release guaifenesin 600 mg tablet, 600 mg PO Q12H 04/04/19 09/25/19 extended release 12 hr potassium chloride 20 mEq oral 20 meq PO DAILY 04/09/19 09/25/19 packet spironolactone 25 mg tablet 25 mg PO DAILY #90 tab 04/09/19 09/25/19 Face mask to deliver Oxygen #2 each 04/23/19 07/16/19 acidophilus 25 million 1 tab PO TID #90 tab 05/07/19 07/16/19 cell-pectin, citrus 100 mg tablet cyclobenzaprine 5 mg tablet 5 mg PO TID PRN #90 tab 05/07/19 09/25/19 dextromethorphan-guaifenesin 10 10 ml PO Q4H PRN PRN #100 ml 05/13/19 09/25/19 mg-100 mg/5 mL oral syrup blood sugar diagnostic #400 strip 05/17/19 07/16/19 lancets 28 gauge #400 ea 05/17/19 07/16/19 tiotropium 2.5 mcg-olodaterol 2.5 2 puff IH DAILY 05/24/19 09/25/19 mcg/actuation mist for inhalation benzonatate 100 mg capsule 100 mg PO BID-TID PRN #90 cap 06/06/19 09/25/19 furosemide 40 mg tablet 40 mg PO DAILY #30 tab 06/20/19 09/25/19 metoclopramide HCl 10 mg tablet 10 mg PO Q6H PRN #30 tab 06/20/19 09/26/19 insulin lispro 100 unit/mL See Rx Instructions SC .per ss #15 07/02/19 09/25/19 subcutaneous pen ml bisacodyl 5 mg tablet,delayed 5 mg PO DAILY #30 tab-cap 07/16/19 09/26/19 release donepezil 5 mg disintegrating 5 mg PO DAILY #30 tab-cap 07/16/19 09/26/19 tablet sitagliptin 25 mg tablet 25 mg PO QAM #90 tab 07/16/19 09/25/19 tramadol 50 mg tablet 25 mg PO QHS PRN #20 tab 07/16/19 09/25/19 varicella-zoster gE-AS01B (PF) 50 50 mcg IM ONCE #1 each 07/16/19 09/25/19 mcg/0.5 mL IM susp, kit nystatin 100,000 unit/gram topical 1 applic TP TID #60 gm 08/01/19 09/25/19 powder insulin glargine 100 unit/mL 72 unit SC DAILY #10 ml 08/13/19 09/25/19 subcutaneous solution insulin glargine 100 unit/mL (3 72 unit SC HS #15 ml 08/19/19 09/25/19 mL) subcutaneous pen nystatin 100,000 unit/gram topical 1 applic TOPICAL TID #60 gm 08/19/19 09/25/19 powder Previous Rx's Medication Instructions Recorded pen needle, diabetic [Pen Needle] #4 box 03/23/18 epinephrine [EpiPen 2-Gordon] 0.3 mg IM ONCE #1 pack 05/07/18 fluticasone furoate 200 1 inh IH DAILY #60 each 09/06/18 mcg-vilanterol 25 mcg/dose inhalation powder compress.stocking,knee,reg,lrg #2 each 10/29/18 albuterol sulfate 2.5 mg INHALATION Q6H PRN #10 vial 11/09/18 linagliptin 5 mg tablet 5 mg PO DAILY #30 tab 12/18/18 ketoconazole 1 applic TOPICAL BID #30 gm 01/31/19 Wheeled walker with seat and basket #1 ea 02/07/19 escitalopram oxalate 10 mg tablet 10 mg PO .NOON #30 tab-cap 02/26/19 simvastatin 40 mg tablet 40 mg PO HS #30 tab 02/26/19 cetirizine [Zyrtec] 5 mg PO DAILY #30 tab 03/20/19 clotrimazole 60 g TOPICAL PRN PRN #0 g 03/20/19 ferrous sulfate 325 mg PO BID@1000,2200 #0 tab 03/20/19 magnesium chloride [Mag 64] 64 mg PO TID #0 tab 03/20/19 sodium chloride [Deep Sea Nasal] 44 ml NS QID PRN PRN #0 ml 03/20/19 vits A and D-white pet-lanolin 60 g TOPICAL PRN PRN #0 g 03/20/19 zinc oxide 60 g TOPICAL PRN PRN #0 g 03/20/19 pantoprazole 40 mg tablet,delayed 40 mg PO DAILY #90 tab 03/25/19 release spironolactone 25 mg tablet 25 mg PO DAILY #90 tab 04/09/19 Face mask to deliver Oxygen #2 each 04/23/19 acidophilus 25 million 1 tab PO TID #90 tab 05/07/19 cell-pectin, citrus 100 mg tablet cyclobenzaprine 5 mg tablet 5 mg PO TID PRN #90 tab 05/07/19 dextromethorphan-guaifenesin 10 10 ml PO Q4H PRN PRN #100 ml 05/13/19 mg-100 mg/5 mL oral syrup blood sugar diagnostic #400 strip 05/17/19 lancets 28 gauge #400 ea 05/17/19 benzonatate 100 mg capsule 100 mg PO BID-TID PRN #90 cap 06/06/19 furosemide 40 mg tablet 40 mg PO DAILY #30 tab 06/20/19 metoclopramide HCl 10 mg tablet 10 mg PO Q6H PRN #30 tab 06/20/19 insulin lispro 100 unit/mL See Rx Instructions SC .per ss #15 07/02/19 subcutaneous pen ml bisacodyl 5 mg tablet,delayed 5 mg PO DAILY #30 tab-cap 07/16/19 release donepezil 5 mg disintegrating 5 mg PO DAILY #30 tab-cap 07/16/19 tablet sitagliptin 25 mg tablet 25 mg PO QAM #90 tab 07/16/19 tramadol 50 mg tablet 25 mg PO QHS PRN #20 tab 07/16/19 varicella-zoster gE-AS01B (PF) 50 50 mcg IM ONCE #1 each 07/16/19 mcg/0.5 mL IM susp, kit nystatin 100,000 unit/gram topical 1 applic TP TID #60 gm 08/01/19 powder insulin glargine 100 unit/mL 72 unit SC DAILY #10 ml 08/13/19 subcutaneous solution insulin glargine 100 unit/mL (3 72 unit SC HS #15 ml 08/19/19 mL) subcutaneous pen nystatin 100,000 unit/gram topical 1 applic TOPICAL TID #60 gm 08/19/19 powder Allergies Allergy/AdvReac Type Severity Reaction Status Date / Time aspirin Allergy Unknown HIVES, Verified 09/25/19 16:21 flip out diclofenac Allergy Unknown RASH Verified 09/25/19 16:21 latex Allergy Unknown SKIN Verified 09/25/19 16:21 BREAKDOWN NSAIDS (Non-Steroidal Allergy Unknown HIVES, Verified 09/25/19 16:21 Anti-Inflamma VOMITING morphine AdvReac Unknown VOMITING Verified 09/25/19 16:21 General Stated Complaint: Nausea/Vomit/Diar ALVIN: 3 Review of Systems Constitutional Constitutional: Reports as per HPI, Denies chills, Reports fatigue, Denies fever(s), Denies headache(s), Reports malaise and Reports poor appetite Eyes Eyes: Reports as per HPI, Denies eye discharge and Denies irritation ENT Ears, Nose, Mouth, and Throat: Reports as per HPI and Denies headache(s) Cardiovascular Cardiovascular: Reports as per HPI, Denies chest pain, Denies palpitations and Denies dyspnea Respiratory Respiratory: Reports as per HPI, Denies change in phlegm color, Denies chest congestion, Reports cough, Denies hemoptysis, Denies excessive phlegm production, Denies pain on inspiration, Denies dyspnea and Denies wheezing Gastrointestinal Gastrointestinal: Reports as per HPI, Denies abdominal pain, Denies change in bowel habits, Reports nausea, Reports vomiting and Denies hematemesis Integumentary/Breasts Skin/Breast: Reports as per HPI and Denies rash Neurologic Neurologic: Reports as per HPI and Denies headache(s) Endocrine Endocrine: Reports fatigue, Reports polyuria and Denies palpitations Allergic/Immunologic Allergic/Immunologic: Denies wheezing [facility] Medical History Abdominal pain (Resolved) Acute gastroenteritis (Resolved 03/16/18) Acute kidney injury (nontraumatic) (Resolved) Acute pneumonitis (Inactive) Anxiety (Chronic 03/16/18) Asthma (Chronic) Asthma (Chronic) Back pain (Chronic) CHF (congestive heart failure) (Chronic) Chronic constipation (Chronic 03/16/18) Cognitive impairment (Chronic 03/16/18) Mild, w/Memory Loss Cubital tunnel syndrome (Resolved 03/16/18) Depressive disorder (Chronic) DKA (diabetic ketoacidoses) (Resolved) Dyspnea (Chronic 03/16/18) Edema (Chronic 03/16/18) Essential hypertension (Chronic 07/17/13) Gastroesophageal reflux disease without esophagitis (Chronic 03/16/18) History of shingles (Resolved 03/16/18) Hyperlipemia (Acute) Insulin dependent diabetes mellitus (Chronic) Internal derangement of right knee (Chronic) Interstitial lung disease (Chronic 03/16/18) Long-term use of high-risk medication (Chronic 03/16/18) Metabolic acidosis with normal anion gap and bicarbonate losses (Resolved) Migraine (Chronic 04/03/14) Neck pain (Chronic 03/16/18) 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 History of section (Inactive) Ligation of fallopian tube Thoracoscopic (R)Lung Bx (02/12/18) Family History Mother , aged 81 from dementia, per Elly Diabetes Essential hypertension CHF (congestive heart failure) Heart disease CHF/heart failure Dementia Father , aged 80 Diabetes Essential hypertension CAD (coronary artery disease) Heart disease [place] Hyperlipidemia Stroke Sister , aged 54 Diabetes Personal history of malignant neoplasm Lung Asthma Lung cancer Brother , of mesithelioma aged 62 Diabetes Essential hypertension Personal history of malignant neoplasm Lung, Prostate Hyperlipidemia Asthma Mesothelioma Brother , of PE following knee surgery age 69 Pulmonary embolus with infarction Daughter No problems noted. Son No problems noted. Social History Smoking/Tobacco Use Status: Never Alcohol Intake: never Details: monthly or less Drug use: Never Substance use type: does not use Adopted: No Caregiver/Support person: No Foster care: No Household members: none Housing: apartment Number of Children: 2 number of grandchildren: 5 Communication Needs: Hard of Hearing and Corrective Lenses Education Level: middle school Do you need help understanding health information?: Always current occupation: disabled Pets and animals: No What is your relationship status?: How often do you talk on the phone with friends or family?: twice per week How often do you get together with friends or relatives?: once per week Panel score (0-1 are the most socially isolated patients): 1 What type of physical activity do you participate in: none and sedentary lifestyle Duration: 15-30 minutes/day Frequency: daily Special devin needs: No Agree to transfusion: Yes Seatbelt use: always Drive intox or ride w/intox box truck driver: No Water heater temp set <120 deg: Yes Working smoke detector in home: Yes Fire extinguisher in home: Yes Carbon monox detector in home: Yes Do you feel safe at home: Yes Do you feel safe in your relationship?: Yes Additional Social history: Grandson Jorge Luis used to live with her. His phone # is [phone]. Daughter Caridad lives in [place]. Son Himanshu lives in [facility], not as close to him. Gets together with brother Brian regularly who takes her shopping and goes for drives. Exam Const General: cooperative, comfortable, no acute distress, well developed, well groomed and ill appearing chronically Nutritional Appearance: well nourished and overweight Orientation: alert and awake HENSD Head: normal to inspection, normocephalic and atraumatic Ears: hearing grossly normal bilaterally, external ears normal and TM's normal bilaterally General nose exam: external nose normal and nares normal Face and sinus: normal facial exam, sinuses nontender and face symmetric Mouth: oral mucosae normal, lip normal, tongue normal, oropharynx normal and mucous membranes dry (patient appears dry on exam) Teeth and gingiva: dentition normal Throat: posterior oropharynx normal, tonsils normal and uvula midline Eyes General: appearance normal, both eyes and all related structures Neck Neck: normal visual inspection, full ROM, no lymphadenopathy and no meningeal signs Resp Effort & Inspection: normal respiratory effort, able to speak in complete sentences and no respiratory distress Auscultation: not clear to auscultation bilaterally, crackles (patient course in bilateral bases R>L), no rales and no wheezes Cardio Rate: regular rate Rhythm: regular rhythm Heart Sounds: S1 normal and S2 normal GI Inspection: normal to inspection and obesity Palpation: soft, no hepatosplenomegaly, not firm, no guarding, no hernias, no pulsatile masses, not rigid and nontender Percussion: normal to percussion Auscultation: normal bowel sounds Back/Spine/Pelvis Back: no CVA tenderness Skin General skin exam: no rashes or lesions noted Neuro General: alert and awake Cognition: normal cognition Speech: speech normal Gait: normal gait Extrem General: normal to inspection, no joint enlargement, no pedal edema, no calf tenderness and normal gait Psych Appearance: grossly normal and well kempt Mental Status: mental status grossly normal Speech and Movement: speech and movement normal Course Vital Signs Vital signs: Vital Signs Temperature 36.3 C L 09/25/19 16:19 Pulse 99 H 09/25/19 16:19 Respiratory Rate 23 09/25/19 16:19 Blood Pressure 125/45 L 09/25/19 16:19 Pulse Oximetry 99 09/25/19 16:19 Temperature 36.3 C L 09/25/19 16:19 Temperature Source Skin 09/25/19 16:19 Pulse 99 H 09/25/19 16:19 Respiratory Rate 23 09/25/19 16:19 Respiratory Effort Non-Labored 09/25/19 16:19 Blood Pressure 125/45 L 09/25/19 16:19 Blood Pressure Position Supine 09/25/19 16:19 Pulse Oximetry 99 09/25/19 16:19 Oxygen Delivery Method Room Air 09/25/19 16:19 Oxygen Flow Rate 0 09/25/19 16:19 Pain Level 10 09/25/19 16:19
[2019-09-25] MEDS: Normal Saline 1,000 ML 1000 ML IV ×2 (16:40→18:10)
[2019-09-25 16:51] LABS: Abs Immature Grans 0.02 k/cumm (0.0-0.09); Absolute Basophil Count 0.04 k/cumm (0.0-0.2); Absolute Eosinophil Count 0.02 k/cumm (0.0-0.7); Absolute Lymphocyte Count 0.87 k/cumm (1.2-3.4); Absolute Monocyte Count 0.41 k/cumm (0.11-0.7); Absolute Neutrophil Count 10.82 k/cumm (1.2-6.7); Basophils % 0.3; Eosinophils % 0.2; HCT 40.9 % (36.0-46.0); HGB 13.4 g/dL (12.0-15.5); Immature Grans % 0.2; Lymphocytes % 7.1; Mean Corp. HGB Concentration 32.8 g/dL (32.0-36.0); Mean Corpuscular Hemoglobin 28.5 pg (27.0-33.0); Mean Platelet Volume 10.7 fL (8.0-11.0); Monocytes % 3.4; Neutrophils % 88.8; Platelet Count 331 x1000/uL (130-400); RBC Distribution Width 14.4 % (11.7-14.6); White Blood Cell Count 12.19 k/cumm (4.4-10.8)
[2019-09-25 16:53] LABS: Lactate 2.8 mmol/L (0.6-1.4)
[2019-09-25 17:07] LABS: ALT 12 U/L (14-59); AST 8 U/L (15-37); Albumin 3.4 g/dL (3.4-5.0); Alkaline Phosphatase 123 U/L (46-116); Anion Gap 20.2 mmol/L (3-11); BUN 32 mg/dL (7-18); Bilirubin, Total 0.7 mg/dL (0.2-1.0); CO2 16.8 mmol/L (21.0-32.0); CREATININE 1.91 mg/dL (0.55-1.02); Calcium 8.7 mg/dL (8.5-10.1); Chloride 92 mmol/L (98-107); Estimated GFR 26.13 (mL/min/1.73m2); Magnesium 2.3 mg/dL (1.8-2.4); Potassium 5.6 mmol/L (3.5-5.1); Sodium 129 mmol/L (136-145); Total Protein 7.3 g/dL (6.4-8.2)
[2019-09-25 17:08] LABS: Troponin I < 0.05 ng/Ml (<0.06)
[2019-09-25 17:13] LABS: Bilirubin Small (Negative); Blood Trace-intact (Negative); Clarity Clear (Clear); Glucose 500 mg/dL (Negative); Ketones >=160 mg/dL (Negative); Leukocyte Esterase Negative (Negative); Nitrite Negative (Negative); Specific Gravity 1.015 (1.005-1.025); Urobilinogen 0.2 EU/dL (Up TO 0.2); pH 5.5 (5-8)
[2019-09-25 17:23] LABS: Bacteria Negative HPF (Negative); C & S Indicated? No; Casts Negative LPF (Negative); Crystals Few Amorphous HPF (Negative); Epithelial Cells Few HPF (Negative); Mucus Negative (Negative); Other Cells Negative (Negative); RBC Negative HPF (0-2); WBC Negative HPF (0-5)
[2019-09-25] MEDS: INSULIN REGULAR IN 0.9 % NACL 100 UNIT/100 ML BAG 8 UNIT IV (17:42)
[2019-09-25 18:29] LABS: HCO3 (Venous) 16 mmol/L (22-28); TCO2 (Venous) 15 mmol/L (22-29); pCO2 (Venous) 42 mm/Hg (34-47); pO2 (Venous) 37 mm/Hg (28-44)
[2019-09-25 18:30] LABS: O2 Sat (Venous) 63 % (70-80)
[2019-09-25] MEDS: Normal Saline 1,000 ML 250 ML IV (18:55)
--- NOTE | 2019-09-25 19:29 | DI.RAD_ITS ---
EXAM: XR CHEST 2V PA LATERAL INDICATION: cough. COMPARISON: XR PORTABLE CHEST AP from 03/15/2019 XR abdomen flat upright from 03/16/2019 TECHNIQUE: 2D digital imaging was performed. FINDINGS: The exam is limited due to patient motion and lack of pulmonary inflation. The heart size is normal. The aorta is tortuous. There is vascular crowding and peribronchial thickening which could be seco ndary to poor inspiratory effort. Mild pulmonary edema cannot be excluded. No focal infiltrate or effusion is seen. IMPRESSION: Limited exam. Question of mild pulmonary edema versus chronic interstitial changes.
--- NOTE | 2019-09-25 19:31 | DI.VRAD_ITS ---
PROCEDURE INFORMATION: Exam: XR Chest, 2 Views Exam date and time: 09/25/2019 5:15 PM Age: 69 years old Clinical history: Cough TECHNIQUE: Imaging protocol: XR of the chest Views: 2 views. COMPARISON: CR XR CHEST 2V PA LATERAL 03/20/2019 11:27 AM FINDINGS: Lungs: Increased interstitial lung markings suggesting edema, infection or fibrotic changes. Pleural space: Unremarkable. No pleural effusion. No pneumothorax. Heart/Mediastinum: Unremarkable. No cardiomegaly. Bones/joints: Diastases of the left a.c. joint.. IMPRESSION: Increased interstitial lung markings suggesting edema, infection or fibrotic changes. Dictated and Authenticated by: Ashli Cuevas MD. Ordering:BRYANT Cagle MD
[2019-09-25 19:32] LABS: BUN 27 mg/dL (7-18); CREATININE 1.61 mg/dL (0.55-1.02); Calcium 8.2 mg/dL (8.5-10.1); Chloride 100 mmol/L (98-107); Estimated GFR 31.83 (mL/min/1.73m2); Glucose 500 mg/dL (74-106); Potassium 4.6 mmol/L (3.5-5.1); Sodium 135 mmol/L (136-145)
[2019-09-25] MEDS: Doxycycline Hyclate 100 MG CAP PO (20:35)
[2019-09-25] MEDS: POTASSIUM CHLORIDE/0.45% NACL 1,000 ML 250 MEQ IV (21:31)
--- NOTE | 2019-09-25 21:54 | HPE_ITS ---
Date of service: 09/25/19 Time of Service: 21:55 Assessment and Plan Assessment and plan (1) Diabetic ketoacidosis associated with type 2 diabetes mellitus: Status: Acute Assessment and plan: Continue aggressive IV fluid hydration with replacement of potassium. Continue with IV insulin drip per usual protocol with frequent fingerstick glucose monitoring hourly and BMP monitoring every 4 hours. Once her anion gap is closed and her ketonuria has resolved will transition back to basal bolus insulin treatment. Qualifiers: Diabetes mellitus complication detail: without coma Qualified Code(s): E11.10 - Type 2 diabetes mellitus with ketoacidosis without coma (2) Community acquired pneumonia of both lungs: Status: Acute Assessment and plan: Continue IV Rocephin at 2 g IV daily along with doxycycline 100 mg IV every 12 hours. Check sputum and blood cultures. Treat with aerosolized bronchodilators and IV corticosteroids. (3) Type II diabetes mellitus, uncontrolled: Status: Chronic Assessment and plan: As above per treatment under DKA. Qualifiers: Glycemic state: with hyperglycemia Qualified Code(s): E11.65 - Type 2 diabetes mellitus with hyperglycemia (4) Essential hypertension: Status: Chronic Assessment and plan: Blood pressure appears to be well controlled at present time. The only medication for antihypertensive effect that I can see she is taking spironolactone. We will try to get a more complete list of her home medications from her PCP in the morning. History of Present Illness History of Present Illness Chief Complaint: nausea, vomiting Narrative: 69-year-old female with poorly controlled type 2 diabetes mellitus (reportedly has had DM since her 40's) previously treated with sulfonylureas and metformin but now requiring insulin with a history of poor medical compliance. Her diabetes mellitus is been complicated by hospitalizations for DKA on March 12, 2019 with a subsequent rehab stay for 3 to 4 weeks. She has also had a number of hypoglycemia spells in the past. Her other comorbidities include essential hypertension, PTSD, asthma, Alzheimer's dementia. She presents with for 5 days of increased purulent sputum of greenish discoloration along with 3 to 4 days of chills and increasing shortness of breath and worsening cough. She states she has a chronic cough but usually does not cough up purulent sputum. She has been nauseated and not been able to eat or drink anything for the past day. She denies any abdominal pain or diarrhea or dysuria. Work-up in the emergency room by PILI Camacho, revealed leukocytosis of 12,000 with a leftward shift and a CMP with an elevated BUN of 32 and creatinine 1.91 and a glucose of 839 with an anion gap of 20 and a blood lactate of 2.8 with normal LFTs and a negative troponin of less than 0.05. Urinalysis was remarkable for ketones of greater than 160 but otherwise was negative for leukocyte esterase RBCs or WBCs or bacteria. Chest x-ray was remarkable for increased interstitial lung markings suggestive of edema or infection or fibrotic changes. There is no pleural effusion and no cardiomegaly. No EKG was performed. Patient was empirically treated for community-acquired pneumonia with Rocephin 500 mg IV and doxycycline 100 mg orally. I have since ordered an additional dose of Rocephin 1 g IV. Patient was given a liter of normal saline while in the emergency department and started on insulin drip for DKA. Insulin started 8 units an hour. Since that time her glucoses come down progressively dropping initially into the 500s then 400s and now into the 300s. Her insulin drip is now down to 2 units an hour. Patient is admitted to the intensive care unit for treatment of DKA along with community-acquired pneumonia. She will continue on Rocephin 2 g IV every 24 hours along with doxycycline 100 mg IV every 12 hours. Attempts will be made to obtain a sputum for culture and Gram stain and will also get a urine for strep antigen and will obtain studies for atypical organisms including Legionella mycoplasma. She will be treated with IV corticosteroids for the next 72 hours for her pneumonia. Review of Systems Constitutional Constitutional: Reports body ache(s), Reports chills, Reports headache(s), Reports malaise and Reports poor appetite Eyes Eyes: Reports system reviewed and no additional complaints, except as docu ENT Ears, Nose, Mouth, and Throat: Reports system reviewed and no additional complaints, except as docu and Reports headache(s) Cardiovascular Cardiovascular: Denies chest pain, Reports dyspnea and Reports dyspnea on exertion Respiratory Respiratory: Reports change in phlegm color, Reports chest congestion, Reports cough, Denies hemoptysis, Reports excessive phlegm production, Reports dyspnea and Reports dyspnea on exertion Gastrointestinal Gastrointestinal: Denies abdominal pain and Reports constipation Genitourinary Genitourinary: Reports system reviewed and no additional complaints, except as docu Musculoskeletal Musculoskeletal: Reports myalgias and Denies numbness Integumentary/Breasts Skin/Breast: Reports system reviewed and no additional complaints, except as docu Neurologic Neurologic: Reports system reviewed and no additional complaints, except as docu, Reports headache(s) and Denies numbness Endocrine Endocrine: Reports cold intolerance and Reports polyuria Hematologic/Lymphatic Hematologic/Lymphatic: Reports system reviewed and no additional complaints, except as docu Allergic/Immunologic Allergic/Immunologic: Reports system reviewed and no additional complaints, except as docu FOR[facility]LY [facility] Medical History (Updated 09/25/19 @ 23:57 by Tre Carrizales) Abdominal pain (Resolved) Acute gastroenteritis (Resolved 03/16/18) Acute kidney injury (nontraumatic) (Resolved) Acute pneumonitis (Inactive) Anxiety (Chronic 03/16/18) Asthma (Chronic) Asthma (Chronic) Back pain (Chronic) CHF (congestive heart failure) (Chronic) Chronic constipation (Chronic 03/16/18) Cognitive impairment (Chronic 03/16/18) Mild, w/Memory Loss Cubital tunnel syndrome (Resolved 03/16/18) Depressive disorder (Chronic) DKA (diabetic ketoacidoses) (Resolved) Dyspnea (Chronic 03/16/18) Edema (Chronic 03/16/18) Essential hypertension (Chronic 07/17/13) Gastroesophageal reflux disease without esophagitis (Chronic 03/16/18) History of shingles (Resolved 03/16/18) Hyperlipemia (Acute) Insulin dependent diabetes mellitus (Chronic) Internal derangement of right knee (Chronic) Interstitial lung disease (Chronic 03/16/18) Long-term use of high-risk medication (Chronic 03/16/18) Metabolic acidosis with normal anion gap and bicarbonate losses (Resolved) Migraine (Chronic 04/03/14) Neck pain (Chronic 03/16/18) 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 History of section (Inactive) Ligation of fallopian tube Thoracoscopic (R)Lung Bx (02/12/18) Family History Mother , aged 81 from dementia, per Elly Diabetes Essential hypertension CHF (congestive heart failure) Heart disease CHF/heart failure Dementia Father , aged 80 Diabetes Essential hypertension CAD (coronary artery disease) Heart disease [place] Hyperlipidemia Stroke Sister , aged 54 Diabetes Personal history of malignant neoplasm Lung Asthma Lung cancer Brother , of mesithelioma aged 62 Diabetes Essential hypertension Personal history of malignant neoplasm Lung, Prostate Hyperlipidemia Asthma Mesothelioma Brother , of PE following knee surgery age 69 Pulmonary embolus with infarction Daughter No problems noted. Son No problems noted. Social History Smoking/Tobacco Use Status: Never Alcohol Intake: never Details: monthly or less Drug use: Never Substance use type: does not use Adopted: No Caregiver/Support person: No Foster care: No Household members: none Housing: apartment Number of Children: 2 number of grandchildren: 5 Communication Needs: Hard of Hearing and Corrective Lenses Education Level: middle school Do you need help understanding health information?: Always current occupation: disabled Pets and animals: No What is your relationship status?: How often do you talk on the phone with friends or family?: twice per week How often do you get together with friends or relatives?: once per week Panel score (0-1 are the most socially isolated patients): 1 What type of physical activity do you participate in: none and sedentary lifestyle Duration: 15-30 minutes/day Frequency: daily Special devin needs: No Agree to transfusion: Yes Seatbelt use: always Drive intox or ride w/intox national dedicated truck driver: No Water heater temp set <120 deg: Yes Working smoke detector in home: Yes Fire extinguisher in home: Yes Carbon monox detector in home: Yes Do you feel safe at home: Yes Do you feel safe in your relationship?: Yes Additional Social history: Grandson Jorge Luis used to live with her. His phone # is [phone]. Daughter Caridad lives in [place]. Son Himanshu lives in [facility], not as close to him. Gets together with brother Brian regularly who takes her shopping and goes for drives. Meds Home Medications and Allergies Home Medications Medication Instructions Recorded Confirmed Type albuterol sulfate [Ventolin HFA] 2 puff INHALATION Q4H PRN #1 10/09/14 09/25/19 History inhaler pen needle, diabetic [Pen Needle] #4 box 03/23/18 07/16/19 Rx epinephrine [EpiPen 2-Gordon] 0.3 mg IM ONCE #1 pack 05/07/18 09/25/19 Rx acetaminophen [Tylenol Extra 1,000 mg PO Q6H PRN 08/06/18 07/16/19 History Strength] fluticasone furoate 200 1 inh IH DAILY #60 each 09/06/18 09/25/19 Rx mcg-vilanterol 25 mcg/dose inhalation powder compress.stocking,knee,reg,lrg #2 each 10/29/18 07/16/19 Rx albuterol sulfate 2.5 mg INHALATION Q6H PRN #10 vial 11/09/18 09/25/19 Rx Oxygen #1 each 11/29/18 07/16/19 History linagliptin 5 mg tablet 5 mg PO DAILY #30 tab 12/18/18 09/25/19 Rx ketoconazole 1 applic TOPICAL BID #30 gm 01/31/19 09/25/19 Rx Wheeled walker with seat and basket #1 ea 02/07/19 07/16/19 Rx escitalopram oxalate 10 mg tablet 10 mg PO .NOON #30 tab-cap 02/26/19 09/25/19 Rx simvastatin 40 mg tablet 40 mg PO HS #30 tab 02/26/19 09/25/19 Rx cetirizine [Zyrtec] 5 mg PO DAILY #30 tab 03/20/19 09/25/19 Rx clotrimazole 60 g TOPICAL PRN PRN #0 g 03/20/19 09/25/19 Rx ferrous sulfate 325 mg PO BID@1000,2200 #0 tab 03/20/19 09/25/19 Rx magnesium chloride [Mag 64] 64 mg PO TID #0 tab 03/20/19 09/25/19 Rx sodium chloride [Deep Sea Nasal] 44 ml NS QID PRN PRN #0 ml 03/20/19 09/25/19 Rx vits A and D-white pet-lanolin 60 g TOPICAL PRN PRN #0 g 03/20/19 09/25/19 Rx zinc oxide 60 g TOPICAL PRN PRN #0 g 03/20/19 09/25/19 Rx pantoprazole 40 mg tablet,delayed 40 mg PO DAILY #90 tab 03/25/19 09/25/19 Rx release guaifenesin 600 mg tablet, 600 mg PO Q12H 04/04/19 09/25/19 History extended release 12 hr potassium chloride 20 mEq oral 20 meq PO DAILY 04/09/19 09/25/19 History packet spironolactone 25 mg tablet 25 mg PO DAILY #90 tab 04/09/19 09/25/19 Rx Face mask to deliver Oxygen #2 each 04/23/19 07/16/19 Rx acidophilus 25 million 1 tab PO TID #90 tab 05/07/19 07/16/19 Rx cell-pectin, citrus 100 mg tablet cyclobenzaprine 5 mg tablet 5 mg PO TID PRN #90 tab 05/07/19 09/25/19 Rx dextromethorphan-guaifenesin 10 10 ml PO Q4H PRN PRN #100 ml 05/13/19 09/25/19 Rx mg-100 mg/5 mL oral syrup blood sugar diagnostic #400 strip 05/17/19 07/16/19 Rx lancets 28 gauge #400 ea 05/17/19 07/16/19 Rx tiotropium 2.5 mcg-olodaterol 2.5 2 puff IH DAILY 05/24/19 09/25/19 History mcg/actuation mist for inhalation benzonatate 100 mg capsule 100 mg PO BID-TID PRN #90 cap 06/06/19 09/25/19 Rx furosemide 40 mg tablet 40 mg PO DAILY #30 tab 06/20/19 09/25/19 Rx metoclopramide HCl 10 mg tablet 10 mg PO Q6H PRN #30 tab 06/20/19 09/25/19 Rx insulin lispro 100 unit/mL See Rx Instructions SC .per ss #15 07/02/19 09/25/19 Rx subcutaneous pen ml bisacodyl 5 mg tablet,delayed 5 mg PO DAILY #30 tab-cap 07/16/19 09/25/19 Rx release donepezil 5 mg disintegrating 5 mg PO DAILY #30 tab-cap 07/16/19 09/25/19 Rx tablet sitagliptin 25 mg tablet 25 mg PO QAM #90 tab 07/16/19 09/25/19 Rx tramadol 50 mg tablet 25 mg PO QHS PRN #20 tab 07/16/19 09/25/19 Rx varicella-zoster [id number] (PF) 50 50 mcg IM ONCE #1 each 07/16/19 09/25/19 Rx mcg/0.5 mL IM susp, kit nystatin 100,000 unit/gram topical 1 applic TP TID #60 gm 08/01/19 09/25/19 Rx powder insulin glargine 100 unit/mL 72 unit SC DAILY #10 ml 08/13/19 09/25/19 Rx subcutaneous solution insulin glargine 100 unit/mL (3 72 unit SC HS #15 ml 08/19/19 09/25/19 Rx mL) subcutaneous pen nystatin 100,000 unit/gram topical 1 applic TOPICAL TID #60 gm 08/19/19 09/25/19 Rx powder Allergies Allergy/AdvReac Type Severity Reaction Status Date / Time aspirin Allergy Unknown HIVES, Verified 09/25/19 16:21 flip out diclofenac Allergy Unknown RASH Verified 09/25/19 16:21 latex Allergy Unknown SKIN Verified 09/25/19 16:21 BREAKDOWN NSAIDS (Non-Steroidal Allergy Unknown HIVES, Verified 09/25/19 16:21 Anti-Inflamma VOMITING morphine AdvReac Unknown VOMITING Verified 09/25/19 16:21 Exam Narrative Exam Narrative: Elderly obese female who is very nauseated. She is alert and oriented person place time and circumstance. HEENT: TMs intact without erythema or bulging. Nares dry mucous membranes without epistaxis or purulence. Oropharynx noninjected. She has poor dentition just a few teeth remaining in her lower jaw in the front of her mouth. No exudate. Dry mucous membranes. Neck supple without JVD, thyromegaly, cervical lymphadenopathy Lungs with coarse bibasilar rhonchi with diminished breath sounds over the right base. Few scattered end expiratory wheezes. Heart is regular rate and rhythm with normal S1-S2 heart tones without murmur rub or gallop or thrill or heave. Abdomen obese soft with hypoactive bowel sounds nontender no guarding or rebound tenderness. Extremities without peripheral cyanosis clubbing or edema. Pedal pulses are diminished but palpable she has normal popliteal pulses. Neurologic exam grossly intact no facial asymmetry no dysarthric speech full extraocular motion intact. Visual acuity not tested. She has normal facial mimetic muscle movement and normal movement of her tongue or palate. She has normal strength and range of motion both upper and lower extremities. Sensation is intact to light touch. Genitalia rectal and breast exam deferred. Results Imaging Chest x-ray: image reviewed Labs Result diagrams: 09/25/19 16:36 09/25/19 19:20 Labs: Laboratory Results - last 24 hr 09/25/19 09/25/19 09/25/19 16:25 16:36 16:36 WBC 12.19 H RBC 4.70 Hgb 13.4 Hct 40.9 MCV 87.0 MCH 28.5 MCHC 32.8 RDW 14.4 Plt Count 331 MPV 10.7 Immature Gran % 0.2 Neutrophils % 88.8 Lymphocytes % 7.1 Monocytes % 3.4 Eosinophils % 0.2 Basophils % 0.3 Absolute Neutrophils 10.82 H Absolute Lymphocytes 0.87 L Absolute Monocytes 0.41 Absolute Eosinophils 0.02 Absolute Basophils 0.04 VBG pH 7.20 L VBG pCO2 42 VBG pO2 37 VBG HCO3 16 L VBG Total CO2 15 L VBG O2 Saturation 63 L VBG Base Excess Sodium 129 L Potassium 5.6 H Chloride 92 L Carbon Dioxide 16.8 L Anion Gap 20.2 H BUN 32 H Creatinine 1.91 H Estimated GFR/1.73 m2 26.13 Glucose 839 H* Lactate Calcium 8.7 Magnesium 2.3 Total Bilirubin 0.7 AST 8 L ALT 12 L Alkaline Phosphatase 123 H Troponin I < 0.05 Total Protein 7.3 Albumin 3.4 Urine Color Urine Clarity Urine pH Ur Specific [place] Urine Protein Urine Ketones Urine Blood Urine Nitrite Urine Bilirubin Urine Urobilinogen Ur Leukocyte Esterase Urine RBC Urine WBC Ur Epithelial Cells Urine Crystals Urine Bacteria Urine Casts Urine Mucus Urine Other Ur Culture Indicated? Urine Glucose 09/25/19 09/25/19 09/25/19 16:36 17:01 19:20 WBC RBC Hgb Hct MCV MCH MCHC RDW Plt Count MPV Immature Gran % Neutrophils % Lymphocytes % Monocytes % Eosinophils % Basophils % Absolute Neutrophils Absolute Lymphocytes Absolute Monocytes Absolute Eosinophils Absolute Basophils VBG pH VBG pCO2 VBG pO2 VBG HCO3 VBG Total CO2 VBG O2 Saturation VBG Base Excess Sodium 135 L Potassium 4.6 Chloride 100 Carbon Dioxide 22.0 Anion Gap 13.0 H BUN 27 H Creatinine 1.61 H Estimated GFR/1.73 m2 31.83 Glucose 500 H D Lactate 2.8 H* Calcium 8.2 L Magnesium Total Bilirubin AST ALT Alkaline Phosphatase Troponin I Total Protein Albumin Urine Color Yellow Urine Clarity Clear Urine pH 5.5 Ur Specific [place] 1.015 Urine Protein Negative Urine Ketones >=160 H Urine Blood Trace-intact H Urine Nitrite Negative Urine Bilirubin Small H Urine Urobilinogen 0.2 Ur Leukocyte Esterase Negative Urine RBC Negative Urine WBC Negative Ur Epithelial Cells Few Urine Crystals Few amorphous Urine Bacteria Negative Urine Casts Negative Urine Mucus Negative Urine Other Negative Ur Culture Indicated? No Urine Glucose 500 H Last Vital Signs Temp 36.2 C L 09/25/19 18:06 Pulse 85 09/25/19 21:13 Resp 20 09/25/19 21:13 BP 130/47 L 09/25/19 21:13 Pulse Ox 99 09/25/19 21:13
[2019-09-25] MEDS: Enoxaparin 30 MG/0.3 ML SYR SC (21:58)
[2019-09-25] MEDS: Ondansetron 4 MG/2 ML VIAL IVP (22:46)
[2019-09-26] VITALS (76 sets, daily range): BP systolic 110–135; BP diastolic 48–66; PULSE 70–95; RESP 2–25; TEMP 36.6–37; O2SAT 94–100
[2019-09-26] MEDS: cefTRIAXone 1,000 MG in Normal Saline 50 ML 100 MG IVPB (00:25)
[2019-09-26 01:00] LABS: Lactate 2.7 mmol/L (0.6-1.4)
[2019-09-26 01:07] LABS: Anion Gap 12.3 mmol/L (3-11); BUN 22 mg/dL (7-18); CO2 23.7 mmol/L (21.0-32.0); CREATININE 1.36 mg/dL (0.55-1.02); Calcium 8.5 mg/dL (8.5-10.1); Chloride 102 mmol/L (98-107); Estimated GFR 38.67 (mL/min/1.73m2); Glucose 325 mg/dL (74-106); Potassium 4.3 mmol/L (3.5-5.1); Sodium 138 mmol/L (136-145)
[2019-09-26] MEDS: POTASSIUM CHLORIDE/0.45% NACL 1,000 ML 250 MEQ IV ×2 (01:15→05:10)
[2019-09-26 01:31] LABS: Troponin I < 0.05 ng/Ml (<0.06)
[2019-09-26] MEDS: Albuterol/Ipratropium 3 ML UPD VIAL UPD ×3 (02:27→12:53)
[2019-09-26] MEDS: Normal Saline Flush 10 ML SYR IVP ×2 (02:37→08:53)
[2019-09-26] MEDS: POTASSIUM CHLORIDE/D5-0.45NACL 1,000 ML 250 MEQ IV (06:03)
[2019-09-26 06:47] LABS: Lactate 1.1 mmol/L (0.6-1.4)
[2019-09-26 07:02] LABS: Abs Immature Grans 0.02 k/cumm (0.0-0.09); Absolute Basophil Count 0.04 k/cumm (0.0-0.2); Absolute Eosinophil Count 0.25 k/cumm (0.0-0.7); Absolute Lymphocyte Count 1.77 k/cumm (1.2-3.4); Absolute Monocyte Count 0.77 k/cumm (0.11-0.7); Absolute Neutrophil Count 6.64 k/cumm (1.2-6.7); Basophils % 0.4; Eosinophils % 2.6; HCT 34.2 % (36.0-46.0); HGB 11.5 g/dL (12.0-15.5); Immature Grans % 0.2; Lymphocytes % 18.7; Mean Corp. HGB Concentration 33.6 g/dL (32.0-36.0); Mean Corpuscular Hemoglobin 28.6 pg (27.0-33.0); Mean Corpuscular Volume 85.1 fL (80-95); Mean Platelet Volume 10.6 fL (8.0-11.0); Monocytes % 8.1; Platelet Count 249 x1000/uL (130-400); RBC 4.02 m/cumm (4.00-5.20); RBC Distribution Width 14.2 % (11.7-14.6); White Blood Cell Count 9.49 k/cumm (4.4-10.8)
[2019-09-26 07:20] LABS: ALT 8 U/L (14-59); AST 9 U/L (15-37); Albumin 2.7 g/dL (3.4-5.0); Alkaline Phosphatase 93 U/L (46-116); Anion Gap 8.1 mmol/L (3-11); BUN 15 mg/dL (7-18); Bilirubin, Total 0.3 mg/dL (0.2-1.0); CO2 23.9 mmol/L (21.0-32.0); CREATININE 1.13 mg/dL (0.55-1.02); Calcium 8.2 mg/dL (8.5-10.1); Chloride 105 mmol/L (98-107); Estimated GFR 47.88 (mL/min/1.73m2); Glucose 204 mg/dL (74-106); Potassium 3.9 mmol/L (3.5-5.1); Sodium 137 mmol/L (136-145)
[2019-09-26 07:23] LABS: Troponin I < 0.05 ng/Ml (<0.06)
[2019-09-26 08:13] LABS: Bilirubin Negative (Negative); Blood Trace-intact (Negative); Clarity Clear (Clear); Glucose 500 mg/dL (Negative); Ketones 15 mg/dL (Negative); Leukocyte Esterase Trace (Negative); Nitrite Negative (Negative); Urobilinogen 0.2 EU/dL (Up TO 0.2); pH 5.5 (5-8)
[2019-09-26 08:13] LABS: BE (Venous) -3.7 mmol/L (-3-3); HCO3 (Venous) 23 mmol/L (22-28); O2 Sat (Venous) 60 % (70-80); TCO2 (Venous) 22 mmol/L (22-29); pCO2 (Venous) 48 mm/Hg (34-47); pH (Venous) 7.29 (7.32-7.43); pO2 (Venous) 32 mm/Hg (28-44)
--- NOTE | 2019-09-26 08:21 | PGE_ITS ---
Date of Service Date of service: 09/26/19 Time of Service: 14:47 Assessment and Plan Assessment and plan (1) Diabetic ketoacidosis associated with type 2 diabetes mellitus: Status: Acute Assessment and plan: Continue IVF. Receiving long acting insulin in an attempt to facilitate weaning from insulin drip. Continue to trend BMP, magnesium Q4H. The patient did receive a diet and was started on steroids, making it harder to wean insulin gtt. The patient had not taken insulin since (1 week ago). Qualifiers: Diabetes mellitus complication detail: without coma Qualified Code(s): E11.10 - Type 2 diabetes mellitus with ketoacidosis without coma (2) Community acquired pneumonia of both lungs: Status: Acute Assessment and plan: Improving. Continue IV Rocephin at 2 g IV daily, doxycycline 100 mg IV every 12 hours. Await sputum and blood cultures, scheduled and prn nebs, IV corticosteroids. (3) Abdominal pain: Status: Acute Assessment and plan: Since . Obtain US abdomen, CT abdomen, and lipase. NPO. On PPI - add carafate. ?Pancreatitis. Check triglycerides. (4) Type II diabetes mellitus, uncontrolled: Status: Chronic Assessment and plan: As above per treatment under DKA. Qualifiers: Glycemic state: with hyperglycemia Qualified Code(s): E11.65 - Type 2 diabetes mellitus with hyperglycemia (5) Essential hypertension: Status: Chronic Assessment and plan: BP's not an issue so far. Holding aldactone given dehydration. (6) Chronic respiratory failure with hypoxia: Status: Chronic Assessment and plan: At baseline - monitor O2 sats (7) DVT prophylaxis: Status: Acute Assessment and plan: lovenox (8) Discharge planning issues: Status: Acute Assessment and plan: Full code Keep in ICU Total Critical Care Time 40 minutes Subjective Subjective Interval history since last seen: Reports periumbilical pain,nausea. States she wasn't taking her insulin at home as well as her other medications because she didn't feel like it. States she got dizzy when she got up earlier today. Denies chest pain, reports shortness of breath. Last BG 271. Insulin drip is going up to 15 units/hr. Crackles, diminished; hacky cough. No wheezing. On 2L - 97%. Tired, A&Ox3. Exam Narrative Exam Narrative: General: very pleasant elderly female, A&Ox3, pale, laying comfortably in bed, on 2L of O2 by NC HEENT: EOMI, dry MM Heart: RRR, no m/r/g Lungs: CTAB - diminished GI: abdomen is soft, nontender, nondistended Extremities: no e/c/c BLE's Objective Objective Clinical Data: Abnormal lab results 09/25/19 09/25/19 09/25/19 Range/Units 16:25 16:36 16:36 WBC 12.19 H (4.4-10.8) k/cumm Hgb (12.0-15.5) g/dL Hct (36.0-46.0) % Absolute Neutrophils 10.82 H (1.2-6.7) k/cumm Absolute Lymphocytes 0.87 L (1.2-3.4) k/cumm Absolute Monocytes (0.11-0.7) k/cumm VBG pH 7.20 L (7.32-7.43) VBG pCO2 (34-47) mm/Hg VBG HCO3 16 L (22-28) mmol/L VBG Total CO2 15 L (22-29) mmol/L VBG O2 Saturation 63 L (70-80) % VBG Base Excess (-3-3) mmol/L Sodium 129 L (136-145) mmol/L Potassium 5.6 H (3.5-5.1) mmol/L Chloride 92 L (98-107) mmol/L Carbon Dioxide 16.8 L (21.0-32.0) mmol/L Anion Gap 20.2 H (3-11) mmol/L BUN 32 H (7-18) mg/dL Creatinine 1.91 H (0.55-1.02) mg/dL Glucose 839 H* (74-106) mg/dL Lactate (0.6-1.4) mmol/L Calcium (8.5-10.1) mg/dL AST 8 L (15-37) U/L ALT 12 L (14-59) U/L Alkaline Phosphatase 123 H (46-116) U/L Total Protein (6.4-8.2) g/dL Albumin (3.4-5.0) g/dL Urine Ketones (Negative) mg/dL Urine Blood (Negative) Urine Bilirubin (Negative) Ur Leukocyte Esterase (Negative) Urine Glucose (Negative) mg/dL 09/25/19 09/25/19 09/25/19 Range/Units 16:36 17:01 19:20 WBC (4.4-10.8) k/cumm Hgb (12.0-15.5) g/dL Hct (36.0-46.0) % Absolute Neutrophils (1.2-6.7) k/cumm Absolute Lymphocytes (1.2-3.4) k/cumm Absolute Monocytes (0.11-0.7) k/cumm VBG pH (7.32-7.43) VBG pCO2 (34-47) mm/Hg VBG HCO3 (22-28) mmol/L VBG Total CO2 (22-29) mmol/L VBG O2 Saturation (70-80) % VBG Base Excess (-3-3) mmol/L Sodium 135 L (136-145) mmol/L Potassium (3.5-5.1) mmol/L Chloride (98-107) mmol/L Carbon Dioxide (21.0-32.0) mmol/L Anion Gap 13.0 H (3-11) mmol/L BUN 27 H (7-18) mg/dL Creatinine 1.61 H (0.55-1.02) mg/dL Glucose 500 H D (74-106) mg/dL Lactate 2.8 H* (0.6-1.4) mmol/L Calcium 8.2 L (8.5-10.1) mg/dL AST (15-37) U/L ALT (14-59) U/L Alkaline Phosphatase (46-116) U/L Total Protein (6.4-8.2) g/dL Albumin (3.4-5.0) g/dL Urine Ketones >=160 H (Negative) mg/dL Urine Blood Trace-intact H (Negative) Urine Bilirubin Small H (Negative) Ur Leukocyte Esterase (Negative) Urine Glucose 500 H (Negative) mg/dL 09/26/19 09/26/19 09/26/19 Range/Units 00:35 00:35 06:20 WBC (4.4-10.8) k/cumm Hgb (12.0-15.5) g/dL Hct (36.0-46.0) % Absolute Neutrophils (1.2-6.7) k/cumm Absolute Lymphocytes (1.2-3.4) k/cumm Absolute Monocytes (0.11-0.7) k/cumm VBG pH (7.32-7.43) VBG pCO2 (34-47) mm/Hg VBG HCO3 (22-28) mmol/L VBG Total CO2 (22-29) mmol/L VBG O2 Saturation (70-80) % VBG Base Excess (-3-3) mmol/L Sodium (136-145) mmol/L Potassium (3.5-5.1) mmol/L Chloride (98-107) mmol/L Carbon Dioxide (21.0-32.0) mmol/L Anion Gap 12.3 H (3-11) mmol/L BUN 22 H (7-18) mg/dL Creatinine 1.36 H 1.13 H (0.55-1.02) mg/dL Glucose 325 H D 204 H D (74-106) mg/dL Lactate 2.7 H* (0.6-1.4) mmol/L Calcium 8.2 L (8.5-10.1) mg/dL AST 9 L (15-37) U/L ALT 8 L (14-59) U/L Alkaline Phosphatase (46-116) U/L Total Protein 6.0 L (6.4-8.2) g/dL Albumin 2.7 L (3.4-5.0) g/dL Urine Ketones (Negative) mg/dL Urine Blood (Negative) Urine Bilirubin (Negative) Ur Leukocyte Esterase (Negative) Urine Glucose (Negative) mg/dL 09/26/19 09/26/19 09/26/19 Range/Units 06:20 07:33 08:06 WBC (4.4-10.8) k/cumm Hgb 11.5 L (12.0-15.5) g/dL Hct 34.2 L (36.0-46.0) % Absolute Neutrophils (1.2-6.7) k/cumm Absolute Lymphocytes (1.2-3.4) k/cumm Absolute Monocytes 0.77 H (0.11-0.7) k/cumm VBG pH 7.29 L (7.32-7.43) VBG pCO2 48 H (34-47) mm/Hg VBG HCO3 (22-28) mmol/L VBG Total CO2 (22-29) mmol/L VBG O2 Saturation 60 L (70-80) % VBG Base Excess -3.7 L (-3-3) mmol/L Sodium (136-145) mmol/L Potassium (3.5-5.1) mmol/L Chloride (98-107) mmol/L Carbon Dioxide (21.0-32.0) mmol/L Anion Gap (3-11) mmol/L BUN (7-18) mg/dL Creatinine (0.55-1.02) mg/dL Glucose (74-106) mg/dL Lactate (0.6-1.4) mmol/L Calcium (8.5-10.1) mg/dL AST (15-37) U/L ALT (14-59) U/L Alkaline Phosphatase (46-116) U/L Total Protein (6.4-8.2) g/dL Albumin (3.4-5.0) g/dL Urine Ketones 15 H (Negative) mg/dL Urine Blood Trace-intact H (Negative) Urine Bilirubin (Negative) Ur Leukocyte Esterase Trace H (Negative) Urine Glucose 500 H (Negative) mg/dL Vital Signs Temperature 37.0 C 09/26/19 03:45 Temperature Source Tympanic 09/26/19 03:45 Pulse 75 09/26/19 07:56 Pulse 80 09/26/19 04:10 Respiratory Rate 23 09/26/19 07:56 Respiratory Effort 09/26/19 03:45 Respiratory Depth Normal 09/26/19 03:45 Respiratory Pattern Normal 09/26/19 03:45 Blood Pressure 117/53 L 09/26/19 04:01 Blood Pressure Mean 67 09/26/19 04:01 Blood Pressure Position Supine 09/25/19 23:30 Pulse Oximetry 96 09/26/19 07:56 Oxygen Delivery Method Nasal Cannula 09/26/19 07:56 Oxygen Flow Rate 2 09/26/19 07:56 Pain Level 0 09/26/19 03:45 Intake & Output 09/25/19 09/25/19 09/26/19 11:59 23:59 11:59 Intake Total 2297.233 / 2297.233 Output Total 945 / 945 Balance 1352.233 / 1352.233 Weight 77.3 kg Intake: IV 229.233 / 2296.233 Output: Urine 945 / 945 Other: Urine Color Yellow Urine Appearance Clear Urine Odor None Comment has voided 475cc's on commode so far this shift. Urine dipped +for ketones, glucose Voiding Methods Bedside Commode Laboratory Results WBC 9.49 k/cumm (4.4-10.8) 09/26/19 06:20 RBC 4.02 m/cumm (4.00-5.20) 09/26/19 06:20 Hgb 11.5 g/dL (12.0-15.5) L 09/26/19 06:20 Hct 34.2 % (36.0-46.0) L 09/26/19 06:20 MCV 85.1 fL (80-95) 09/26/19 06:20 MCH 28.6 pg (27.0-33.0) 09/26/19 06:20 MCHC 33.6 g/dL (32.0-36.0) 09/26/19 06:20 RDW 14.2 % (11.7-14.6) 09/26/19 06:20 Plt Count 249 x1000/uL (130-400) 09/26/19 06:20 MPV 10.6 fL (8.0-11.0) 09/26/19 06:20 Immature Gran % 0.2 09/26/19 06:20 Neutrophils % 70.0 09/26/19 06:20 Lymphocytes % 18.7 09/26/19 06:20 Monocytes % 8.1 09/26/19 06:20 Eosinophils % 2.6 09/26/19 06:20 Basophils % 0.4 09/26/19 06:20 Absolute Neutrophils 6.64 k/cumm (1.2-6.7) 09/26/19 06:20 Absolute Lymphocytes 1.77 k/cumm (1.2-3.4) 09/26/19 06:20 Absolute Monocytes 0.77 k/cumm (0.11-0.7) H 09/26/19 06:20 Absolute Eosinophils 0.25 k/cumm (0.0-0.7) 09/26/19 06:20 Absolute Basophils 0.04 k/cumm (0.0-0.2) 09/26/19 06:20 VBG pH 7.29 (7.32-7.43) L 09/26/19 08:06 VBG pCO2 48 mm/Hg (34-47) H 09/26/19 08:06 VBG pO2 32 mm/Hg (28-44) 09/26/19 08:06 VBG HCO3 23 mmol/L (22-28) 09/26/19 08:06 VBG Total CO2 22 mmol/L (22-29) 09/26/19 08:06 VBG O2 Saturation 60 % (70-80) L 09/26/19 08:06 VBG Base Excess -3.7 mmol/L (-3-3) L 09/26/19 08:06 Sodium 137 mmol/L (136-145) 09/26/19 06:20 Potassium 3.9 mmol/L (3.5-5.1) 09/26/19 06:20 Chloride 105 mmol/L (98-107) 09/26/19 06:20 Carbon Dioxide 23.9 mmol/L (21.0-32.0) 09/26/19 06:20 Anion Gap 8.1 mmol/L (3-11) 09/26/19 06:20 BUN 15 mg/dL (7-18) D 09/26/19 06:20 Creatinine 1.13 mg/dL (0.55-1.02) H 09/26/19 06:20 Estimated GFR/1.73 m2 47.88 (mL/min/1.73m2) 09/26/19 06:20 Glucose 204 mg/dL (74-106) H D 09/26/19 06:20 Lactate 1.1 mmol/L (0.6-1.4) 09/26/19 06:20 Calcium 8.2 mg/dL (8.5-10.1) L 09/26/19 06:20 Magnesium 2.3 mg/dL (1.8-2.4) 09/25/19 16:36 Total Bilirubin 0.3 mg/dL (0.2-1.0) 09/26/19 06:20 AST 9 U/L (15-37) L 09/26/19 06:20 ALT 8 U/L (14-59) L 09/26/19 06:20 Alkaline Phosphatase 93 U/L (46-116) 09/26/19 06:20 Troponin I < 0.05 ng/Ml (<0.06) 09/26/19 06:20 Total Protein 6.0 g/dL (6.4-8.2) L 09/26/19 06:20 Albumin 2.7 g/dL (3.4-5.0) L 09/26/19 06:20 Urine Color Yellow (Yellow) 09/26/19 07:33 Urine Clarity Clear (Clear) 09/26/19 07:33 Urine pH 5.5 (5-8) 09/26/19 07:33 Ur Specific [place] 1.020 (1.005-1.025) 09/26/19 07:33 Urine Protein Negative mg/dL (Negative) 09/26/19 07:33 Urine Ketones 15 mg/dL (Negative) H 09/26/19 07:33 Urine Blood Trace-intact (Negative) H 09/26/19 07:33 Urine Nitrite Negative (Negative) 09/26/19 07:33 Urine Bilirubin Negative (Negative) 09/26/19 07:33 Urine Urobilinogen 0.2 EU/dL (Up TO 0.2) 09/26/19 07:33 Ur Leukocyte Esterase Trace (Negative) H 09/26/19 07:33 Urine RBC Negative HPF (0-2) 09/25/19 17:01 Urine WBC Negative HPF (0-5) 09/25/19 17:01 Ur Epithelial Cells Few HPF (Negative) 09/25/19 17:01 Urine Crystals Few amorphous HPF (Negative) 09/25/19 17:01 Urine Bacteria Negative HPF (Negative) 09/25/19 17:01 Urine Casts Negative LPF (Negative) 09/25/19 17:01 Urine Mucus Negative (Negative) 09/25/19 17:01 Urine Other Negative (Negative) 09/25/19 17:01 Ur Culture Indicated? No 09/25/19 17:01 Urine Glucose 500 mg/dL (Negative) H 09/26/19 07:33
[2019-09-26 08:40] LABS: Epithelial Cells Few HPF (Negative); Other Cells Few Renal (Negative); RBC 0-2 HPF (0-2)
[2019-09-26 08:41] LABS: Bacteria Few HPF (Negative); Crystals Moderate Uric Acid HPF (Negative); Mucus Negative (Negative)
[2019-09-26 08:42] LABS: C & S Indicated? Yes; Casts Negative LPF (Negative)
[2019-09-26] MEDS: Hydrocortisone SOD SUC. 100 MG VIAL 50 MG IVP ×3 (08:43→20:24)
[2019-09-26] MEDS: Pantoprazole 40 MG VIAL IVP (08:43)
[2019-09-26] MEDS: DOXYCYCLINE 100 MG in Normal Saline 100 ML IVPB ×2 (08:47→20:25)
[2019-09-26] MEDS: Benzonatate 200 MG CAP PO ×2 (08:56→13:28)
[2019-09-26] MEDS: guaiFENesin 600 MG TABCR PO ×2 (08:56→20:24)
[2019-09-26 10:31] LABS: BUN 13 mg/dL (7-18); CREATININE 1.29 mg/dL (0.55-1.02); Calcium 8.3 mg/dL (8.5-10.1); Chloride 104 mmol/L (98-107); Glucose 323 mg/dL (74-106); Magnesium 1.7 mg/dL (1.8-2.4); Potassium 4.2 mmol/L (3.5-5.1); Sodium 136 mmol/L (136-145)
--- NOTE | 2019-09-26 10:31 | INITIAL_ITS ---
Care Management Initial Assess REASON FOR HOSPITALIZATION:: DKA, Pneumonia PAST MEDICAL HISTORY/PAST SURGICAL HISTORY:: Abdominal pain , Acute gastroenteritis, Acute kidney injury, Acute pneumonitis, Anxiety, Asthma, Back pain, CHF, Chronic constipation, Cognitive impairment, Mild, w/Memory Loss, Cubital tunnel syndrome, Depressive disorder, DKA, Dyspnea, Edema, Essential hypertension. Gastroesophageal reflux disease without esophagitis, History of shingles, Hyperlipemia, Insulin dependent diabetes mellitus, Internal derangement of right knee, Interstitial lung disease, Long-term use of high-risk medication, Metabolic acidosis with normal anion gap and bicarbonate losses, Migraine, Neck pain, Neoplasm of uncertain behavior of ovary, Osteoporosis, Peripheral neuralgia, Post herpetic neuralgia. Sepsis, Shoulder pain, left- surgery, Total urinary incontinence, Type II diabetes mellitus, uncontrolled, Umbilical hernia, Appendectomy, Arthroscopy, Shoulder left, Bilateral salpingectomy with oophorectomy, section, Cholecystectomy, History of section, Ligation of fallopian tube, Thoracoscopic PREVIOUS FUNCTIONAL STATUS/SOCIAL/FAMILY SUPPORTS:: Elly resides alone in an apartment in [facility]. She reports multiple family members locally including her brother Brian whom she states she shares a car with, but has not driven in some time. Her son Himanshu and grandchildren are local as well and all supportive per her report. Her grandson Jorge Luis has out of state and she reports missing him. Elly utilizes [email or web address] and her brother Brian for transportation. CURRENT FUNCTIONAL STATUS:: Elly was lying in bed, pleasant in interaction and forthcoming with information. She reviewed all current natural and service supports. ADVANCE DIRECTIVES:: On file at [facility] though per chart review there is question of current accuracy will need to confirm when Elly is more alert. Has patient been provided with information about the portal?: Yes Did the patient sign up for the portal?: Yes (Previously) CODE STATUS:: Full Code INSURANCE COVERAGE / FINANCIAL ISSUES:: [employer], [facility], [facility] CURRENT HOME/COMMUNITY SERVICES/EQUIPMENT:: SN/PT VNA through [facility], [facility], Diabetic supplies; insulin dependent, Motorized wheelchair, FWW, Home O2 PRIMARY CARE PHYSICIAN:: Mario Garcia POTENTIAL DISCHARGE NEEDS:: Evaluation of further needs; coordination of [id number] and coordination of previous/increased service supports. PATIENT/FAMILY EDUCATION NEEDS:: Review of discharge instructions, discuss Ask Me Three. ANTICIPATED BARRIERS TO DISCHARGE:: None identified. TRANSPORTATION:: TBD by disposition and clinical need. PLAN:: Elly will continue to be closely monitored and treated. Once stable, she will be evaluated by PT for further needs. Elly's grandson, Jorge Luis is advocating for [facility] during weekdays. Elly reports a supportive network of family and friends and consistent stability in the community prior to getting sick. The exception, she reports is managing her diabetes which shes states has been chronically difficult to manage. She reports previously working with family life educator and attending healthy living classes. CM reviewed healthy food attainment at [facility] and [employer] locally as Elly reported bread, potatoes and butter raise my blood sugar. CM will continue to follow and support Elly with considerations.
[2019-09-26] MEDS: Budesonide/Formoterol 160/4.5 6 GM 60 PUFF INH IH ×2 (10:39→20:24)
--- NOTE | 2019-09-26 10:52 | PHARADMIT ---
Addendum entered by Caleb Duarte III 09/28/19 14:44: Pharmacy Note Subjective No new MD note yet. Objective VS-OK Labs-WNL FSBS-328 BG-325 Assessment NPH dc'd, Lantus adjusted,Aspart with meal time coverage, Steroids decreased IV ABX converted to PO Ceftin & Doxycyline Plan CM working on services to keep her safe regarding Diabetes Addendum entered by Caleb Duarte [facility] 09/27/19 13:56: Pharmacy Note Subjective Patient stooped using her insulin over the holiday and DKA resulted. MD afraid patient will not comply with her Insulin in future, DKA has resolved, Insulin drip DC'd, diet advanced. She is now a Med-Surg overflow until a MS bed is available. Objective VS-OK Labs-OK, FSBS-264 Assessment Lantus & Aspart added Plan To transfer to floor when bed available. Original Note: Admission Pharmacy Clinical Review DKA, Pneumonia Code Status Full Code Current Weight 77.3 kg Renally Cleared and Narrow Therapeutic Index Meds CrCl ~39.5 using adj body wt QTc Value / Action Taken na BP Control, Fever bp 135/53 (111/48 ON), afebrile Electrolytes reviewed Na 136, K+ 1.2, Mag 1.7 DVT Prophylaxis LMWH 30mg q24h Opiate Usage / Scheduled Bowel Regimen Ordered No Plt/SCr for Heparin / Enoxaparin Plt 249, Scr 1.29 INR for Warfarin H/H stable, WBC/Bands H/H 11.5/34.2, WBC 9.49 Antibiotic appropriateness Ceftriaxone 2gram q24h + Doxy 100 Q12H Cultures and Sensitivities Urine, blood, sputum pending Surgical ABX d/c within 24 hr DM control / Insulin Dosing Insulin gtt; will switch to SC when appropriate Heart Failure (Check EF%) (DAYANARA's, B-Block, Diuretics) IV to PO Switch Home Meds Reviewed Yes Home Meds Not Ordered furosemide, tradjenta, januvia, losartan, spironolactone, stiolto, oral KCl 20meq Comments Gave 1 dose long acting insulin glargine in attempt to wean from insulin gtt @1508; IV steroids were started making it harder to wean
[2019-09-26] MEDS: POTASSIUM CHLORIDE/D5-0.45NACL 1,000 ML 150 MEQ IV (11:49)
[2019-09-26] MEDS: Ondansetron 4 MG/2 ML VIAL IVP (13:27)
[2019-09-26] MEDS: MAGNESIUM SULFATE 2 GM/50 ML BAG IVPB (13:29)
[2019-09-26] MEDS: Normal Saline 1,000 ML 125 ML IV (13:29)
[2019-09-26 14:25] LABS: Anion Gap 11.1 mmol/L (3-11); BUN 12 mg/dL (7-18); CO2 21.9 mmol/L (21.0-32.0); CREATININE 1.45 mg/dL (0.55-1.02); Calcium 8.5 mg/dL (8.5-10.1); Chloride 104 mmol/L (98-107); Estimated GFR 35.91 (mL/min/1.73m2); Glucose 290 mg/dL (74-106); Magnesium 1.8 mg/dL (1.8-2.4); Potassium 4.6 mmol/L (3.5-5.1); Sodium 137 mmol/L (136-145)
[2019-09-26] MEDS: INSULIN REGULAR IN 0.9 % NACL 100 UNIT/100 ML BAG 15 UNIT IV (15:05)
[2019-09-26] MEDS: Insulin Glargine 300 UNITS/3 ML PEN 36 UNITS SC (15:08)
[2019-09-26 15:18] LABS: Lipase 39 U/L (73-393)
[2019-09-26 15:32] LABS: Triglyceride 305 mg/dL (<150)
--- NOTE | 2019-09-26 17:01 | DI.CT_ITS ---
EXAM: CT ABDOMEN PELVIS WO CLINICAL HISTORY: abdominal pain - no PO or IV contrast TECHNIQUE: The exam was performed according to the usual protocol. COMPARISON: CT ABDOMEN PELVIS WO from 03/12/2019 FINDINGS: There is patient motion artifact. This severely limits evaluation of the lung bases. There is again seen interstitial thickening in ground glass opacities in the lung bases. The findings are consiste nt with chronic interstitial disease. Acute superimposed pneumonia cannot be excluded. The lack of IV contrast does limit evaluation of the abdominal pelvic organs. There are a few tiny hypodense areas in the liver which are too small for further characterization. The patient is status post cholecystectomy. No biliary ductal dilatation is present. There is again seen marked atrophy of the pancreas. The spleen and adrenal glands are unremarkable. The kidneys show no evidence of obstructive uropathy or nephrolithiasis. Urinary bladder is intact a nd unremarkable. The reproductive organs are unremarkable as visualized. No evidence of an acute inflammatory or infectious process of the bowel is seen. No evidence of marium l obstruction. Changes are seen in the bowel wall. No evidence of an acute appendicitis. There is atherosclerosis of the abdominal aorta. No aneurysmal dilatation is seen. No evidence of abdominal or pelvic adenopathy, ascites or pneumoperitoneum is present. There is a stable old compression fracture deformity of L1. Degenerative changes are seen in the spi ne. IMPRESSION: 1. No acute abdominal or pelvic process. 2. Improved fatty infiltration of the liver. 3. Persistent bilateral basilar interstitial alveolar opacities. This likely is chronic. Superimpos ed pneumonia cannot be excluded. 4. Stable L1 compression fracture.
--- NOTE | 2019-09-26 17:27 | DI.VRAD_ITS ---
PROCEDURE INFORMATION: Exam: CT Abdomen And Pelvis Without Contrast Exam date and time: 09/26/2019 4:59 PM Age: 69 years old Clinical history: Other: Abdominal pain TECHNIQUE: Imaging protocol: Computed tomography of the abdomen and pelvis without contrast. Radiation optimization: All CT scans at this facility use at least one of these dose optimization techniques: automated exposure control; mA and/or kV adjustment per patient size (includes targeted exams where dose is matched to clinical indication); or iterative reconstruction. COMPARISON: CT ABDOMEN PELVIS WO 03/12/2019 6:56 PM FINDINGS: Lungs: Image quality of visualized lung bases limited by respiratory motion. There is again peripheral intralobular septal thickening greater on the right than the left and there is a hazy groundglass opacity of each visualized lobe. This is consistent with chronic interstitial lung disease although pneumonia cannot be excluded. Mediastinum: Small sliding-type hiatal hernia. Liver: There has been overall improvement in the multiple foci of hepatic decreased attenuation consistent with resolving focal fatty infiltration. A few scattered remaining hepatic hypodensities measure 12 mm in diameter or less and are too small to characterize. Gallbladder and bile ducts: The gallbladder is again not visualized most likely representing cholecystectomy. No biliary ductal dilatation. No obstruction or pericholecystic fat stranding demonstrated. Pancreas: Fatty atrophy of pancreas. No pancreatic mass. Spleen: 6 mm splenule near anterior tip of spleen unchanged. The spleen is otherwise unremarkable. Adrenals: Normal. No mass. Kidneys and ureters: No renal calculus or hydronephrosis on either side. Stomach and bowel: Diffuse colonic wall thickening is similar but less pronounced than the comparison study. This consists largely of submucosal fat which is typical for chronic colitis. Appendix: Appendix not visualized. No evidence of appendicitis. Intraperitoneal space: Unremarkable. No free air. No significant fluid collection. Vasculature: Coronary vascular calcifications. There is aortic atherosclerosis without aneurysm. Lymph nodes: Unremarkable. No enlarged lymph nodes. Bladder: Urinary bladder moderately distended with no focal wall thickening. Reproductive: Unremarkable as visualized. Bones/joints: Compression deformity superior endplate of L1 unchanged. No acute fractures. Soft tissues: Unremarkable. IMPRESSION: 1. No acute intra-abdominal process seen with evidence of chronic colitis less pronounced than on the most recent comparison study. 2. Improved fatty infiltration of the liver. 3. Bibasilar interstitial and alveolar opacities poorly evaluated due to respiratory motion. This is consistent with progression of chronic interstitial lung disease or possibly superimposed pneumonia. 4. Sliding hiatal hernia. 5. Chronic L1 compression fracture. Dictated and Authenticated by: Sandoval William MD. Ordering:SAMSON Bryan MD
--- NOTE | 2019-09-26 17:45 | DI.US_ITS ---
EXAM: US ABDOMEN CLINICAL HISTORY: abdominal pain TECHNIQUE: Ultrasound abdomen performed using standard protocol. COMPARISON: CT ABDOMEN PELVIS WO from 09/26/2019 FINDINGS: LIVER: Mild increased echogenicity suggesting fatty infiltration. The liver is normal in size. No h epatic mass is seen. Portal vein: Hepatopetal flow is demonstrated. GALLBLADDER: The patient is status post cholecystectomy. KIDNEYS: Kidneys are symmetric in size. No evidence of renal calculi. No evidence of hydronephrosis. No renal mass or cyst identified. BILIARY SYSTEM: Common bile duct measures 3.4 millimeters. No intrahepatic biliary ductal dilation. PANCREAS: There is increased echogenicity of the visualized portions of the pancreas consistent with fatty infiltration. The pancreas is only partially visualized. SPLEEN: Not enlarged. ABDOMINAL AORTA AND IVC: Visualized portions normal caliber. ASCITES: None seen. IMPRESSION: Fatty infiltration of the liver and pancreas.
--- NOTE | 2019-09-26 18:31 | DI.VRAD_ITS ---
PROCEDURE INFORMATION: Exam: US Abdomen Complete Exam date and time: 09/26/2019 2:53 PM Age: 69 years old Clinical history: Abdominal pain; Prior surgery TECHNIQUE: Imaging protocol: Real-time ultrasound of the abdomen with image documentation. COMPARISON: CT ABDOMEN PELVIS WO 09/26/2019 5:01 PM FINDINGS: Liver: Mildly hyperechoic liver consistent with fatty infiltration. Gallbladder: Status post cholecystectomy. Common bile duct: Common bile duct 3.4 mm. Pancreas: Partially visualized. Mildly hyperechoic pancreas consistent with fatty infiltration. Right kidney: Right kidney 10.4 cm. No renal calculus or hydronephrosis. Left kidney: Left kidney 11.2 cm. No renal calculus or hydronephrosis. Spleen: Normal. No splenomegaly. Aorta: Normal. No aneurysm. Inferior vena cava: Normal. Portal venous: Hepatopedal flow demonstrated in the portal vein. IMPRESSION: No acute findings with fatty infiltration of the liver and pancreas noted. Dictated and Authenticated by: Sandoval William MD. Ordering:SAMSON Bryan MD
[2019-09-26 18:57] LABS: BE (Venous) -3.4 mmol/L (-3-3); HCO3 (Venous) 23 mmol/L (22-28); O2 Sat (Venous) 59 % (70-80); TCO2 (Venous) 21 mmol/L (22-29); pCO2 (Venous) 46 mm/Hg (34-47); pH (Venous) 7.31 (7.32-7.43); pO2 (Venous) 29 mm/Hg (28-44)
[2019-09-26 19:09] LABS: Anion Gap 7.2 mmol/L (3-11); BUN 9 mg/dL (7-18); CO2 24.8 mmol/L (21.0-32.0); CREATININE 1.08 mg/dL (0.55-1.02); Calcium 8.7 mg/dL (8.5-10.1); Chloride 106 mmol/L (98-107); Estimated GFR 50.45 (mL/min/1.73m2); Glucose 118 mg/dL (74-106); Magnesium 2.2 mg/dL (1.8-2.4); Potassium 4.3 mmol/L (3.5-5.1); Sodium 138 mmol/L (136-145)
[2019-09-26] MEDS: Enoxaparin 30 MG/0.3 ML SYR SC (20:24)
[2019-09-26] MEDS: Magnesium Chloride 64 MG TABCR PO (20:24)
[2019-09-26] MEDS: Insulin NPH-Human 300 UNITS/3 ML PEN 25 UNIT SC (21:10)
[2019-09-26] MEDS: Simvastatin 40 MG TAB PO (21:34)
[2019-09-26] MEDS: Sucralfate 1 GM TAB PO (21:34)
[2019-09-26] MEDS: cefTRIAXone 2 GM/50 ML BAG IVPB (21:34)
[2019-09-26] MEDS: Metoclopramide 10 MG TAB PO (21:34)
[2019-09-26] MEDS: traMADol 50 MG TAB 25 MG PO (21:35)
[2019-09-26] MEDS: Ferrous Sulfate 325 MG TAB PO (21:35)
[2019-09-26 22:50] LABS: Anion Gap 8.6 mmol/L (3-11); BUN 8 mg/dL (7-18); CO2 24.4 mmol/L (21.0-32.0); CREATININE 0.96 mg/dL (0.55-1.02); Calcium 8.4 mg/dL (8.5-10.1); Chloride 107 mmol/L (98-107); Glucose 124 mg/dL (74-106); Potassium 4.2 mmol/L (3.5-5.1); Sodium 140 mmol/L (136-145)
[2019-09-27] VITALS (17 sets, daily range): BP systolic 106–145; BP diastolic 48–95; PULSE 53–82; RESP 1–22; TEMP 36.3–37.4; O2SAT 92–100
[2019-09-27] MEDS: Hydrocortisone SOD SUC. 100 MG VIAL 50 MG IVP ×2 (00:33→09:16)
[2019-09-27] MEDS: POTASSIUM CHLORIDE/D5-0.45NACL 1,000 ML 150 MEQ IV (00:48)
[2019-09-27 02:28] LABS: Anion Gap 8.8 mmol/L (3-11); BUN 6 mg/dL (7-18); CO2 23.2 mmol/L (21.0-32.0); CREATININE 0.92 mg/dL (0.55-1.02); Calcium 8.5 mg/dL (8.5-10.1); Chloride 109 mmol/L (98-107); Glucose 110 mg/dL (74-106); Potassium 4.2 mmol/L (3.5-5.1); Sodium 141 mmol/L (136-145)
[2019-09-27] MEDS: Normal Saline 1,000 ML 150 ML IV (02:56)
[2019-09-27 08:33] LABS: Abs Immature Grans 0.01 k/cumm (0.0-0.09); Absolute Basophil Count 0.01 k/cumm (0.0-0.2); Absolute Lymphocyte Count 0.99 k/cumm (1.2-3.4); Absolute Monocyte Count 0.18 k/cumm (0.11-0.7); Absolute Neutrophil Count 6.02 k/cumm (1.2-6.7); Basophils % 0.1; HCT 38.7 % (36.0-46.0); HGB 12.5 g/dL (12.0-15.5); Immature Grans % 0.1; Lymphocytes % 13.7; Mean Corp. HGB Concentration 32.3 g/dL (32.0-36.0); Mean Corpuscular Volume 86.8 fL (80-95); Mean Platelet Volume 10.9 fL (8.0-11.0); Monocytes % 2.5; Neutrophils % 83.6; Platelet Count 240 x1000/uL (130-400); RBC 4.46 m/cumm (4.00-5.20); RBC Distribution Width 14.7 % (11.7-14.6); White Blood Cell Count 7.21 k/cumm (4.4-10.8)
--- NOTE | 2019-09-27 08:38 | PGE_ITS ---
Date of Service Date of service: 09/27/19 Time of Service: 08:38 Assessment and Plan Assessment and plan (1) Diabetic ketoacidosis associated with type 2 diabetes mellitus: Status: Resolved Assessment and plan: Switched to basal bolus insulin. Titrate as tolerating diet. Ok to transfer out of ICU. Qualifiers: Diabetes mellitus complication detail: without coma Qualified Code(s): E11.10 - Type 2 diabetes mellitus with ketoacidosis without coma (2) Community acquired pneumonia of both lungs: Status: Acute Assessment and plan: Improving. Continue IV Rocephin at 2 g IV daily, doxycycline 100 mg IV every 12 hours. Await sputum and blood cultures, scheduled and prn nebs, IV corticosteroids. Titrate stress dose steroids (and half the NPH coverage). (3) Abdominal pain: Status: Acute Assessment and plan: Improved - ?due to gastroparesis vs constipation. Tolerating a diet. CT abdomen/pelvis, US, and bloodwork are negative for intraabdominal pathology. Doubt gastritis. Write for a bowel regimen. (4) Type II diabetes mellitus, uncontrolled: Status: Chronic Assessment and plan: Titrating basal bolus insulin. There is a question of whether or not the patient is safe to take her own insulin/understands that she should. Qualifiers: Glycemic state: with hyperglycemia Qualified Code(s): E11.65 - Type 2 diabetes mellitus with hyperglycemia (5) Essential hypertension: Status: Chronic Assessment and plan: Resuming diuresis - lasix at first, then aldactone. BP's not a problem so far. (6) Chronic respiratory failure with hypoxia: Status: Chronic Assessment and plan: At baseline - monitor O2 sats (7) DVT prophylaxis: Status: Acute Assessment and plan: lovenox (8) Discharge planning issues: Status: Acute Assessment and plan: Full code Transfer out of ICU to [facility]. Subjective Subjective Interval history since last seen: Insulin gtt turned off at 1 am. BG 213 this am. Tolerating a diet. Abdominal pain is better. Still no BM, but states she only has a BM every few days. It's been 4 days. Denies dizziness, chest pain. Shortness of breath is not better. Was able to cough up a small amount of yellowish sputum. 2L 99%, had to be turned up to 3L overnight while asleep. Normally wears 2 L of O2 during the day and night at home. States her legs and hands are swollen. Exam Narrative Exam Narrative: General: very pleasant elderly female, A&Ox3, pale, laying comfortably in bed, on 2L of O2 by NC HEENT: EOMI, MMM Heart: RRR, no m/r/g Lungs: quiet rhonchi/rales - improved air entry GI: abdomen is soft, nontender, nondistended Extremities: +1 edema BLE's, no c/c BLE's Objective Objective Clinical Data: Abnormal lab results 09/26/19 09/26/19 09/26/19 Range/Units 10:00 13:55 18:47 RDW (11.7-14.6) % Absolute Lymphocytes (1.2-3.4) k/cumm VBG pH (7.32-7.43) VBG Total CO2 (22-29) mmol/L VBG O2 Saturation (70-80) % VBG Base Excess (-3-3) mmol/L Chloride (98-107) mmol/L Anion Gap 11.1 H (3-11) mmol/L BUN (7-18) mg/dL Creatinine 1.29 H 1.45 H 1.08 H (0.55-1.02) mg/dL Glucose 323 H D 290 H 118 H D (74-106) mg/dL Calcium 8.3 L (8.5-10.1) mg/dL Magnesium 1.7 L (1.8-2.4) mg/dL Lipase 39 L (73-393) U/L 09/26/19 09/26/19 09/27/19 Range/Units 18:47 22:20 02:05 RDW (11.7-14.6) % Absolute Lymphocytes (1.2-3.4) k/cumm VBG pH 7.31 L (7.32-7.43) VBG Total CO2 21 L (22-29) mmol/L VBG O2 Saturation 59 L (70-80) % VBG Base Excess -3.4 L (-3-3) mmol/L Chloride 109 H (98-107) mmol/L Anion Gap (3-11) mmol/L BUN 6 L (7-18) mg/dL Creatinine (0.55-1.02) mg/dL Glucose 124 H 110 H (74-106) mg/dL Calcium 8.4 L (8.5-10.1) mg/dL Magnesium (1.8-2.4) mg/dL Lipase (73-393) U/L 09/27/19 Range/Units 07:40 RDW 14.7 H (11.7-14.6) % Absolute Lymphocytes 0.99 L (1.2-3.4) k/cumm VBG pH (7.32-7.43) VBG Total CO2 (22-29) mmol/L VBG O2 Saturation (70-80) % VBG Base Excess (-3-3) mmol/L Chloride (98-107) mmol/L Anion Gap (3-11) mmol/L BUN (7-18) mg/dL Creatinine (0.55-1.02) mg/dL Glucose (74-106) mg/dL Calcium (8.5-10.1) mg/dL Magnesium (1.8-2.4) mg/dL Lipase (73-393) U/L Vital Signs Temperature 36.6 C 09/27/19 03:24 Temperature Source Temporal Artery Scan 09/27/19 03:24 Pulse 53 L 09/27/19 06:01 Pulse 54 L 09/27/19 06:01 Respiratory Rate 15 09/27/19 06:01 Respiratory Effort 09/27/19 03:24 Respiratory Depth Normal 09/27/19 03:24 Respiratory Pattern Normal 09/27/19 03:24 Blood Pressure 106/48 L 09/27/19 06:01 Blood Pressure Mean 62 09/27/19 06:01 Blood Pressure Position Supine 09/27/19 03:24 Pulse Oximetry 97 09/27/19 06:14 Oxygen Delivery Method Nasal Cannula 09/27/19 06:14 Oxygen Flow Rate 2 09/27/19 06:14 Pain Level 0 09/27/19 03:24 Intake & Output 09/26/19 09/26/19 09/27/19 11:59 23:59 11:59 Intake Total 3347.316 / 6375.092 3027.776 / 6375.092 840.975 / 840.975 Output Total 945 / 1495 550 / 1495 1550 / 1550 Balance 2402.316 / 4880.092 2477.776 / 4880.092 -709.025 / -709.025 Weight 80 kg Intake: IV 3247.316 / 5625.092 2377.776 / 5625.092 765.975 / 765.975 Oral 100 / 750 650 / 750 75 / 75 Output: Urine 945 / 1495 550 / 1495 1550 / 1550 Other: Urine Color Yellow Pale Yellow Yellow Urine Appearance Clear Clear Clear Urine Odor None Normal Comment has voided 475cc's on commode so far this shift. Urine dipped +for ketones, glucose Voiding Methods Bedside Commode Bedside Commode Bedside Commode Laboratory Results WBC 7.21 k/cumm (4.4-10.8) 09/27/19 07:40 RBC 4.46 m/cumm (4.00-5.20) 09/27/19 07:40 Hgb 12.5 g/dL (12.0-15.5) 09/27/19 07:40 Hct 38.7 % (36.0-46.0) 09/27/19 07:40 MCV 86.8 fL (80-95) 09/27/19 07:40 MCH 28.0 pg (27.0-33.0) 09/27/19 07:40 MCHC 32.3 g/dL (32.0-36.0) 09/27/19 07:40 RDW 14.7 % (11.7-14.6) H 09/27/19 07:40 Plt Count 240 x1000/uL (130-400) 09/27/19 07:40 MPV 10.9 fL (8.0-11.0) 09/27/19 07:40 Immature Gran % 0.1 09/27/19 07:40 Neutrophils % 83.6 09/27/19 07:40 Lymphocytes % 13.7 09/27/19 07:40 Monocytes % 2.5 09/27/19 07:40 Eosinophils % 0.0 09/27/19 07:40 Basophils % 0.1 09/27/19 07:40 Absolute Neutrophils 6.02 k/cumm (1.2-6.7) 09/27/19 07:40 Absolute Lymphocytes 0.99 k/cumm (1.2-3.4) L 09/27/19 07:40 Absolute Monocytes 0.18 k/cumm (0.11-0.7) 09/27/19 07:40 Absolute Eosinophils 0.00 k/cumm (0.0-0.7) 09/27/19 07:40 Absolute Basophils 0.01 k/cumm (0.0-0.2) 09/27/19 07:40 VBG pH 7.31 (7.32-7.43) L 09/26/19 18:47 VBG pCO2 46 mm/Hg (34-47) 09/26/19 18:47 VBG pO2 29 mm/Hg (28-44) 09/26/19 18:47 VBG HCO3 23 mmol/L (22-28) 09/26/19 18:47 VBG Total CO2 21 mmol/L (22-29) L 09/26/19 18:47 VBG O2 Saturation 59 % (70-80) L 09/26/19 18:47 VBG Base Excess -3.4 mmol/L (-3-3) L 09/26/19 18:47 Sodium 141 mmol/L (136-145) 09/27/19 02:05 Potassium 4.2 mmol/L (3.5-5.1) 09/27/19 02:05 Chloride 109 mmol/L (98-107) H 09/27/19 02:05 Carbon Dioxide 23.2 mmol/L (21.0-32.0) 09/27/19 02:05 Anion Gap 8.8 mmol/L (3-11) 09/27/19 02:05 BUN 6 mg/dL (7-18) L 09/27/19 02:05 Creatinine 0.92 mg/dL (0.55-1.02) 09/27/19 02:05 Estimated GFR/1.73 m2 >= 60.00 (mL/min/1.73m2) 09/27/19 02:05 Glucose 110 mg/dL (74-106) H 09/27/19 02:05 Lactate 1.1 mmol/L (0.6-1.4) 09/26/19 06:20 Calcium 8.5 mg/dL (8.5-10.1) 09/27/19 02:05 Magnesium 2.0 mg/dL (1.8-2.4) 09/27/19 02:05 Total Bilirubin 0.3 mg/dL (0.2-1.0) 09/26/19 06:20 AST 9 U/L (15-37) L 09/26/19 06:20 ALT 8 U/L (14-59) L 09/26/19 06:20 Alkaline Phosphatase 93 U/L (46-116) 09/26/19 06:20 Troponin I < 0.05 ng/Ml (<0.06) 09/26/19 06:20 Total Protein 6.0 g/dL (6.4-8.2) L 09/26/19 06:20 Albumin 2.7 g/dL (3.4-5.0) L 09/26/19 06:20 Triglycerides 305 mg/dL (<150) 09/26/19 13:55 Lipase 39 U/L (73-393) L 09/26/19 13:55 Urine Color Yellow (Yellow) 09/26/19 07:33 Urine Clarity Clear (Clear) 09/26/19 07:33 Urine pH 5.5 (5-8) 09/26/19 07:33 Ur Specific [place] 1.020 (1.005-1.025) 09/26/19 07:33 Urine Protein Negative mg/dL (Negative) 09/26/19 07:33 Urine Ketones 15 mg/dL (Negative) H 09/26/19 07:33 Urine Blood Trace-intact (Negative) H 09/26/19 07:33 Urine Nitrite Negative (Negative) 09/26/19 07:33 Urine Bilirubin Negative (Negative) 09/26/19 07:33 Urine Urobilinogen 0.2 EU/dL (Up TO 0.2) 09/26/19 07:33 Ur Leukocyte Esterase Trace (Negative) H 09/26/19 07:33 Urine RBC 0-2 HPF (0-2) 09/26/19 07:33 Urine WBC 3-5 HPF (0-5) 09/26/19 07:33 Ur Epithelial Cells Few HPF (Negative) 09/26/19 07:33 Urine Crystals Moderate uric acid HPF (Negative) 09/26/19 07:33 Urine Bacteria Few HPF (Negative) 09/26/19 07:33 Urine Casts Negative LPF (Negative) 09/26/19 07:33 Urine Mucus Negative (Negative) 09/26/19 07:33 Urine Other Few renal (Negative) 09/26/19 07:33 Ur Culture Indicated? Yes 09/26/19 07:33 Urine Glucose 500 mg/dL (Negative) H 09/26/19 07:33
[2019-09-27 08:46] LABS: BUN 8 mg/dL (7-18); CREATININE 0.83 mg/dL (0.55-1.02); Calcium 8.8 mg/dL (8.5-10.1); Chloride 110 mmol/L (98-107); Magnesium 2.1 mg/dL (1.8-2.4); Potassium 4.9 mmol/L (3.5-5.1); Sodium 142 mmol/L (136-145)
[2019-09-27 08:53] LABS: Glucose 243 mg/dL (74-106)
[2019-09-27] MEDS: Normal Saline Flush 10 ML SYR IVP ×4 (09:15→20:52)
[2019-09-27] MEDS: Pantoprazole 40 MG VIAL IVP (09:15)
[2019-09-27] MEDS: Cetirizine 10 MG TAB 5 MG PO (09:19)
[2019-09-27] MEDS: Sucralfate 1 GM TAB PO ×4 (09:19→22:48)
[2019-09-27] MEDS: Donepezil 5 MG TAB PO (09:19)
[2019-09-27] MEDS: guaiFENesin 600 MG TABCR PO ×2 (09:19→20:49)
[2019-09-27] MEDS: Magnesium Chloride 64 MG TABCR PO ×3 (09:19→20:49)
[2019-09-27] MEDS: Insulin NPH-Human 300 UNITS/3 ML PEN 25 UNIT SC (09:21)
--- NOTE | 2019-09-27 09:21 | PDOC.CMPRO ---
Care Management Progress Note S/O: Elly was lying in bed, receptive to discussing discharge planning with this magnetic tape typewriter operator. CM consulted with PT who reported Elly did well today, and their recommendation would be for Elly to return to [facility] day support and would not require a SNF upon discharge. Elly was agreeable to this plan and reported she has spoken with Walter at the [facility] in the past to resume service supports. Anticipate increased VNA supports including RN/PT/OT undetermined if Elly will require new orders or resumption. CM will continue to follow and support discharge planning considerations. A: 69 year old female admitted to [facility] 09/25/19 for DKA, Pneumonia P: Elly will continue to be closely monitored and treated. She was evaluated by PT resulting in recommendation for day service support as well as new VNA orders. CM will continue to follow and support discharge planning considerations. Elly reports a supportive network of family and friends and consistent stability in the community prior to getting sick. The exception, she reports, is managing her diabetes which shes states has been chronically difficult to manage. She reports previously working with a public health educator and attending healthy living classes. CM reviewed healthy food attainment at [facility] and [employer] locally as Elly reported bread, potatoes and butter raise my blood sugar.
--- NOTE | 2019-09-27 09:24 | NUR.NOTE ---
Speech therapist called from [facility]. Speech therapist is not available until Monday09/30/19, she reports that Dr. Dyer is aware of this. Speech tx will call Monday09/30/19 in the am to make sure patient is still an inpatient.
[2019-09-27] MEDS: DOXYCYCLINE 100 MG in Normal Saline 100 ML IVPB ×2 (09:27→20:59)
[2019-09-27] MEDS: Budesonide/Formoterol 160/4.5 6 GM 60 PUFF INH IH ×2 (09:43→20:58)
[2019-09-27] MEDS: Insulin Aspart 300 UNITS/3 ML PEN SC ×4 (09:51→22:29)
[2019-09-27] MEDS: Ferrous Sulfate 325 MG TAB PO ×2 (10:05→22:27)
--- NOTE | 2019-09-27 10:42 | OTIE_ITS ---
Occupational Therapy Notes Inpatient Occupational Therapy Evaluation Date: 09/27/19 Referring Doctor:Randi Dyer MD OT Orders: Eval and treat: Non Urgent Precautions: fall, standard PATIENT PROFILE/ADMITTING DIAGNOSIS: Pt is a 69 year old female admitted to [facility] through the ER on 09/25/19 for DKA (diabetic ketoacidoses) and pneumonia. Past Medical History: Internal derangement of right knee (Acute) Back pain (Chronic) Asthma (Chronic) Osteoporosis (Chronic 03/16/18) Neck pain (Chronic 03/16/18) Migraine (Chronic 04/03/14) Long-term use of high-risk medication (Chronic 03/16/18) Interstitial lung disease (Chronic 03/16/18) History of shingles (Resolved 03/16/18) Gastroesophageal reflux disease without esophagitis (Chronic 03/16/18) Essential hypertension (Chronic 07/17/13) Edema (Chronic 03/16/18) Dyspnea (Chronic 03/16/18) Depressive disorder (Chronic) Cubital tunnel syndrome (Resolved 03/16/18) Cognitive impairment (Chronic 03/16/18) Chronic constipation (Chronic 03/16/18) Anxiety (Chronic 03/16/18) Acute gastroenteritis (Resolved 03/16/18) Umbilical hernia (Chronic) Type II diabetes mellitus, uncontrolled (Chronic) Total urinary incontinence (Chronic) Shoulder pain (Chronic) Post herpetic neuralgia (Chronic 03/16/18) Peripheral neuralgia (Chronic) 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 She is (I) with all ADLs/IADLs at her baseline level of function. She has a tub shower and utilizes a shower bench. A neighbor helps with her top ironer as she is unable to do this on her own. She gets food from meals on wheels. She notes that she has been performing her grocery shopping with her brother with whom she shares a car with and can drive at times, in the grocery store she utilizes a electric scooter. She states that she gets rides from [facility] for doctors appointments if her brother is not available. She has a grandson who did live with her at one time but has recently moved to the [facility]. She reports that she told him he can come back at any time. She gets her laundry done with (A) from her brother as well. She states that she does use a walker at times and a cane but not consistently as she doesn't feel that she needs them. She is excited to return to [facility] during the day which she thinks will be fun. Equipment owned/DME: [facility] which she reports she has not been to in months but is looking forward to returning, [facility], wheelchair, FWW, Home O2 which she is at 2L O2 at all times, cane, grab bars, shower bench. SUBJECTIVE: Pt was lying in bed when OT arrived. She is agreeable to consult and states that she is feeling much better than she did when she arrived. OBJECTIVE: General Observation: Tired and answers questions appropriately, barking cough, telemetry, O2 nasal cannula, BP cuff on (L) forearm, IV (R) UE Mental Status: A&Ox3 Pain: no c/o pain ROM: RUE WNL L UE WNL STRENGTH: RUE 4-/5 throughout globally, chin strap cutter is weak LUE 4/5 throughout globally, chin strap cutter is weak FUNCTIONAL MOBILITY/ADLS: Rolling in bed (I) Supine- sit (I) Sit-supine (I) Sit-stand (I) Stand-sit (I) Bed to sink (S) Sink to bed (S) Bathing- Standing at the sink (I) (B) UE, abdomen, underarms, (B) LE and peria area. Dressing- Sitting on side of the bed (I) don and doff (B) socks Standing at sink (I) with don and doffing hospital gown Grooming- Standing at sink (I) with brushing hair and teeth with ideal technique Toileting- On commode (I) Eating- NT with OT. BALANCE: Static Sitting- Normal Dynamic Sitting- Normal Static Standing- Normal Dynamic Standing- Good INFORMED CONSENT/EDUCATION: Pt instructed in purpose of OT Consult and plan of care. ASSESSMENT: Patient is a 69-year-old female referred to occupational therapy services with diagnosis of DKA (diabetic ketoacidoses) and pneumonia. Patient presents with clinical signs and symptoms consistent with dx. Pt was seen for OT consult only, she is demonstrating increased (I) in her ALD routines similar to pts baseline level of function. OT did not need to (A) or provide vc for pt in any aspect of her ADLs and pt was able to demonstrate with good-ideal technique. OT will plan to discharge pt at this time. OT did discuss with pt that she should aim to stand at the sink to perform her ADLs like she did today. Patient is assessed as a Low 83498 complexity based on the following: History: See Above Examination: See Above Presentation: Evolving Decision Making: Low complexity GOALS N/A PLAN OF CARE/TREATMENT PLAN: OT consult only. DISCHARGE RECOMMENDATIONS OT recommends that pt return home when medically cleared per MD. TREATMENT TIME/MINUTES/CODES 95029, 30 minutes (08:45) [facility]
[2019-09-27] MEDS: Albuterol/Ipratropium 3 ML UPD VIAL UPD ×2 (11:37→18:29)
--- NOTE | 2019-09-27 11:47 | IN_ITS ---
Date of service: 09/27/19 Time of Service: 10:46 PT Notes Visit Reasons: ARABELLA,PNEUMONIA Physical Therapy Inpatient Initial Evaluation Date: 09/27/2019 Referring Doctor: Randi Dyer MD PT Orders: PT CONSULT: Limited ability. Eval and Treat Precautions: Standard. Fall risk. Activity as tolerated. Patient Profile/Admitting Diagnosis: Patient is 68-year-old female admitted through ED with chief complaint of generalized body malaise for the past week, nausea and vomitting for the past 4 days, fatigue, lightheadedness with standing, vomiting x 4 with DKA, due to poorly managed DM Type II. Patient is diagnosed with diabetic ketoacidosis with type 2 diabetes mellitus, and community-acquired pneumonia. PMHX: Past Medical History: Internal derangement of right knee (Acute) Back pain (Chronic) Asthma (Chronic) Osteoporosis (Chronic 03/16/18) Neck pain (Chronic 03/16/18) Migraine (Chronic 04/03/14) Long-term use of high-risk medication (Chronic 03/16/18) Interstitial lung disease (Chronic 03/16/18) History of shingles (Resolved 03/16/18) Gastroesophageal reflux disease without esophagitis (Chronic 03/16/18) Essential hypertension (Chronic 07/17/13) Edema (Chronic 03/16/18) Dyspnea (Chronic 03/16/18) Depressive disorder (Chronic) Cubital tunnel syndrome (Resolved 03/16/18) Cognitive impairment (Chronic 03/16/18) Chronic constipation (Chronic 03/16/18) Anxiety (Chronic 03/16/18) Acute gastroenteritis (Resolved 03/16/18) Umbilical hernia (Chronic) Type II diabetes mellitus, uncontrolled (Chronic) Total urinary incontinence (Chronic) Shoulder pain (Chronic) Post herpetic neuralgia (Chronic 03/16/18) Peripheral neuralgia (Chronic) 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 She states that she goes to [employer] [facility] daily except for Wednesdays via [facility]. Brother provides assistance as needed with transportation and grocery shopping. She has three steps to get in to her house with rails on both sides. Equipment owned/DME: Wheelchair, FWW, Home O2 at 2L continuous via NC. Grab bars. Subjective: Patient is agreeable to a PT consult. She reports being tired and stated that she is not sure how much she is going to do for physical therapy today. General Observation: Patient seen resting in bed. Telemetry monitoring in place. Pulse oximeter on L UE. IV in left UE. Oxygen supplementation via NC at 1 L/min. Mental Status: Alert and oriented x3 Pain: 0/10 ROM: Right Upper Extremity: Shoulder Flexion WFL. Shoulder abduction WFL. Elbow flexion WFL. Wrist flexion WFL. Functional opening and closing of hand WFL. Left Upper Extremity: Shoulder Flexion WFL. Shoulder abduction WFL. Elbow flexion WFL. Wrist flexion WFL. Functional opening and closing of hand WFL. Right Lower Extremity: Hip flexion WFL. Hip abduction WFL. Knee flexion WFL. Ankle dorsiflexion WFL. Ankle plantarflexion WFL. Left Lower Extremity: Hip flexion WFL. Hip abduction WFL. Knee flexion WFL. Ankle dorsiflexion WFL. Ankle plantarflexion WFL. Strength: Right Upper Extremity: Shoulder flexors 4/5. Shoulder abductors 4/5. Elbow flexors 4/5. Elbow extensors 4/5. Geriatric Nurse Practitioner strong. Left Upper Extremity: Shoulder flexors 4/5. Shoulder abductors 4/5. Elbow flexors 4/5. Elbow extensors 4/5. Geriatric Nurse Practitioner strong. Right Lower Extremity: Hip flexors 4/5. Hip abductors 4/5. Knee flexors 4/5. Knee extensors 4/5. Ankle dorsiflexors 4/5. Ankle plantarflexors 4/5. Left Lower Extremity: Hip flexors 4/5. Hip abductors 4/5. Knee flexors 4/5. Knee extensors 4/5. Ankle dorsiflexors 4/5. Ankle plantarflexors 4/5. Sensation: Intact to pain and pressure on BLE Bed Mobility/Transfers: Rolling SBA Supine to sit SBA Sit to supine SBA Sit to stand SBA Stand to sit SBA Bed to chair SBA Chair to bed SBA Gait: Patient is able to tolerate all 80 feet of level surface ambulation usng FWW requiring CGA and wheelchair follow of nurse Trista, oxygen supplement at 2 L/min saturating within 93-96% with patient reporting mild breathlessness that subsided with rest. Patient reports pain at 2-3/10 on the lateral side of knee after activity. Balance: Static Sitting: Good Dynamic Sitting: Fair Static Standing: Fair Dynamic Standing: Fair Assessment: Patient is 68-year-old female admitted through ED with chief complaint of generalized body malaise for the past week, nausea, and vomiting for the past 4 days, fatigue, lightheadedness with standing, vomiting x 4 with DKA, due to poorly managed DM Type II. Patient is diagnosed with diabetic ketoacidosis with type 2 diabetes mellitus, and community-acquired pneumonia. Patient demonstrates decline in mobility performance in terms of activity tolerance for transfer and ambulation tasks, generalized weakness, and functional limitations listed below. Patient presents with clinical signs and symptoms consistent with current/admitting diagnoses that have resulted to mobility limitations, gait instability, generalized weakness, and impairment of motor control as demonstrated by the following impairment level findings: 1. Decreased strength to B LE major muscle groups 2. Impaired standing balance 3. Impaired activity tolerance Impairments are contributing to the following functional limitations: 1. Inability to safely ambulate without assistive device and physical assistance 2. Increase completion time for mobility ADL performance 3. Increased fall risk 6. Inability to negotiate steps alone safely Patient is assessed as a 94137 moderate complexity based on the following: History: Patient is 68-year-old female admitted through ED with chief complaint of generalized body malaise for the past week, nausea and vomitting for the past 4 days, fatigue, lightheadedness with standing, vomiting x 4 with DKA, due to poorly managed DM Type II. Patient is diagnosed with diabetic ketoacidosis with type 2 diabetes mellitus, and community-acquired pneumonia. Examination: Demonstrable impairment in strength, balance, and range of motion with underlying impairments and functional limitations as documented above Presentation: Evolving Decision Makin moderate complexity Goals: Goals X1 week 1. Supine-Sit independent 2. Sit-Supine independent 3. Sit-Stand independent 4. Stand-Sit independent 5. Bed-Chair independent 6. Chair-Bed independent 7. Independent with level surface ambulation for at least 200 feet using the FWW to enable patient to participate in all activities at adult day care 9. Independent with home exercise program 10. Standing balance/tolerance Good DISCHARGE RECOMMENDATIONS: Patient will benefit from alf facility placement in order to progress mobility level, strength, and balance in preparation for a safe discharge to home. TREATMENT CODE/TIME: 32099 x 27 minutes beginning at 10:46 AM. Thank you very much for this referral. Iva Roldan PT, DPT, CLT [facility]
[2019-09-27] MEDS: Escitalopram 10 MG TAB PO (12:32)
[2019-09-27] MEDS: Metoclopramide 10 MG TAB PO ×3 (12:32→22:26)
[2019-09-27] MEDS: Docusate Sodium 100 MG CAP PO ×2 (13:28→20:49)
[2019-09-27] MEDS: Furosemide 20 MG/2 ML VIAL IVP ×2 (13:28→20:48)
[2019-09-27] MEDS: Nystatin POWDER 15 GM JAR TP ×2 (13:29→21:20)
[2019-09-27] MEDS: Senna TAB 1 TAB PO (14:09)
--- NOTE | 2019-09-27 14:37 | W.INDIABCONS ---
Date of service: 09/27/19 Time of Service: 14:37 Diabetes Inpatient Consult DESCRIPTION/ASSESSMENT: Appreciate diabetes consult for Elly Pina who is hospitalized with DKA and pneumonia. States she has had nausea and vomiting for days and was unable to take her insulin secondary to dizziness. A1c 9.6 BMI 36 Elly states she has poorly controlled blood sugars at home even when she takes her insulin. Elly lives alone although she has family support nearby. She has had diabetes self management in the past and does have basic knowledge re: food and monitoring, insulin administration. She has had education regarding sick day care at previous hospitalization. At home she takes 72u Glargine nightly and Lispro on a correction scale generally taking 16-20u per meal. Here after the insulin drip she is receiving 36u Glargine, moderate insulin correction and 25u NPH in the morning. INTERVENTION: Discussed with Elly whether she needs some support to help her with her self management decisions in collaboration with RN. Emphasized importance of always taking Lantus and calling her PCP when ill. Given that she is not in good glycemic control taking her usual medications and now has an infection, giving her usual insulin dosing and titrating as needed to achieve glycemic control 140-180 may be beneficial. PLAN: Will follow blood sugars Encourage home insulin dosing initially and adjusting as needed in this controlled environment. Time Spent in Nutritional Counseling and Treatment: 10 minutes face to face
--- NOTE | 2019-09-27 15:18 | CHAPLAIN ---
Elly was resting n bed when I visited. She had just finished a phone conversation with her brother on the [place] side of the [place]. Elly said she was here in February with the same thing, and is frustrated being in the hospitals and having lots of needles and not getting much sleep at night.
[2019-09-27 17:11] LABS: Streptococcus Pneumoniae Ag, U Negative (Negative)
[2019-09-27] MEDS: Hydrocortisone SOD SUC. 100 MG VIAL 25 MG IVP ×2 (18:30→22:25)
[2019-09-27] MEDS: Enoxaparin 30 MG/0.3 ML SYR SC (20:49)
[2019-09-27] MEDS: Insulin NPH-Human 300 UNITS/3 ML PEN 10 UNIT SC (21:00)
[2019-09-27] MEDS: cefTRIAXone 1 GM/50 ML BAG IVPB (22:25)
[2019-09-27] MEDS: Simvastatin 40 MG TAB PO (22:27)
[2019-09-27] MEDS: Insulin Glargine 300 UNITS/3 ML PEN 50 UNITS SC (22:30)
[2019-09-28] VITALS (7 sets, daily range): BP systolic 112–144; BP diastolic 66–76; PULSE 65–97; RESP 2–24; TEMP 36.2–37.6; O2SAT 94–99
[2019-09-28] MEDS: Normal Saline Flush 10 ML SYR IVP ×4 (00:07→09:33)
[2019-09-28] MEDS: Hydrocortisone SOD SUC. 100 MG VIAL 25 MG IVP ×2 (05:04→09:34)
[2019-09-28 07:23] LABS: Abs Immature Grans 0.01 k/cumm (0.0-0.09); Absolute Basophil Count 0.04 k/cumm (0.0-0.2); Absolute Eosinophil Count 0.15 k/cumm (0.0-0.7); Absolute Lymphocyte Count 0.96 k/cumm (1.2-3.4); Absolute Monocyte Count 0.48 k/cumm (0.11-0.7); Absolute Neutrophil Count 4.98 k/cumm (1.2-6.7); Basophils % 0.6; Eosinophils % 2.3; HCT 35.6 % (36.0-46.0); HGB 11.7 g/dL (12.0-15.5); Immature Grans % 0.2; Lymphocytes % 14.5; Mean Corp. HGB Concentration 32.9 g/dL (32.0-36.0); Mean Corpuscular Hemoglobin 28.2 pg (27.0-33.0); Mean Corpuscular Volume 85.8 fL (80-95); Mean Platelet Volume 10.5 fL (8.0-11.0); Monocytes % 7.3; Neutrophils % 75.1; Platelet Count 251 x1000/uL (130-400); RBC 4.15 m/cumm (4.00-5.20); RBC Distribution Width 14.5 % (11.7-14.6); White Blood Cell Count 6.62 k/cumm (4.4-10.8)
[2019-09-28 07:35] LABS: Anion Gap 9.9 mmol/L (3-11); BUN 22 mg/dL (7-18); CO2 25.1 mmol/L (21.0-32.0); CREATININE 1.14 mg/dL (0.55-1.02); Calcium 8.8 mg/dL (8.5-10.1); Chloride 106 mmol/L (98-107); Glucose 325 mg/dL (74-106); Magnesium 1.8 mg/dL (1.8-2.4); Potassium 3.8 mmol/L (3.5-5.1); Sodium 141 mmol/L (136-145)
[2019-09-28] MEDS: Ondansetron 4 MG/2 ML VIAL IVP (07:37)
[2019-09-28] MEDS: Metoclopramide 10 MG TAB PO ×4 (07:38→22:23)
[2019-09-28] MEDS: Sucralfate 1 GM TAB PO ×4 (07:38→22:23)
[2019-09-28] MEDS: Albuterol/Ipratropium 3 ML UPD VIAL UPD ×3 (07:57→18:16)
[2019-09-28] MEDS: DOXYCYCLINE 100 MG in Normal Saline 100 ML IVPB (08:06)
[2019-09-28] MEDS: Insulin Aspart 300 UNITS/3 ML PEN SC ×6 (08:10→22:24)
[2019-09-28] MEDS: Insulin NPH-Human 300 UNITS/3 ML PEN 10 UNIT SC (08:11)
[2019-09-28] MEDS: Budesonide/Formoterol 160/4.5 6 GM 60 PUFF INH IH ×2 (08:59→20:47)
[2019-09-28] MEDS: guaiFENesin 600 MG TABCR PO ×2 (09:29→20:48)
[2019-09-28] MEDS: Furosemide 40 MG TAB PO ×2 (09:29→16:52)
[2019-09-28] MEDS: Cetirizine 10 MG TAB 5 MG PO (09:29)
[2019-09-28] MEDS: Donepezil 5 MG TAB PO (09:32)
[2019-09-28] MEDS: Ferrous Sulfate 325 MG TAB PO ×2 (09:32→22:23)
[2019-09-28] MEDS: Senna TAB 1 TAB PO (09:32)
[2019-09-28] MEDS: Docusate Sodium 100 MG CAP PO ×2 (09:33→20:48)
[2019-09-28] MEDS: Polyethylene Glycol 3350 17 GM PACKET PO (09:33)
[2019-09-28] MEDS: Magnesium Chloride 64 MG TABCR PO ×3 (09:33→20:48)
[2019-09-28] MEDS: Pantoprazole 40 MG VIAL IVP (09:35)
[2019-09-28] MEDS: Escitalopram 10 MG TAB PO (12:14)
--- NOTE | 2019-09-28 12:25 | PT.INTREAT ---
Date of service: 09/28/19 Time of Service: 12:25 PT Notes Visit Reasons: DKA,PNEUMONIA Inpatient Physical Therapy Treatment Note [facility] Date: 09/28/2019 PRECAUTIONS: Fall, activity as tolerated SUBJECTIVE: Elly reports she is feeling a lot better today, she is agreeable to participating in PT. OBJECTIVE: PAIN: Patient complained of B kneecap pain with gait training BED MOBILITY/TRANSFERS Sit-stand: I Stand-sit: I GAIT Assistive Device: FWW Weight bearing: Full Assist: S Distance: 120' + 80' Deviation: Seated rest x1 ASSESSMENT: Patient tolerated session well, with complaints of B kneecap pain with gait training. She was able to tolerate a progression in gait distance with FWW support and supervision, without complaints of SOB. Patient would benefit from continued general conditioning and strengthening for improved activity tolerance and mobility. PLAN: Continue with PTs POC TREATMENT CODE/TIME: 10 minutes; [id number]
--- NOTE | 2019-09-28 13:35 | CMPROGNOTE_ITS ---
Care Management Progress Note S/O: Elly was lying in bed, receptive to discussing discharge planning with this marketing copywriter. She remains agreeable to plan with no new changes at this time. She shared no concerns. Respiratory progress remains delayed at this time, and Elly continues to struggle with a painful cough. CM will continue to follow and support discharge planning considerations. A: 69 year old female admitted to [facility] 09/25/19 for DKA, Pneumonia P: Elly will continue to be closely monitored and treated. Anticipate new VNA orders upon discharge including RN (including DM2 oversight)/PT/OT (CM faxed referral to [facility]). As well, she will re-enroll in day services through [facility]: notification to Community based CM; Nellie Neal at [facility] will be required prior to discharge. CM will continue to follow and support discharge planning considerations. Elly reports a supportive network of family and friends and consistent stability in the community prior to getting sick. The exception, she reports, is managing her diabetes which shes states has been chronically difficult to manage. She reports previously working with a visual educator and attending healthy living classes. CM reviewed healthy food attainment at [facility] and [facility] locally as Elly reported bread, potatoes and butter raise my blood sugar.
[2019-09-28] MEDS: Nystatin POWDER 15 GM JAR TP ×2 (15:12→21:30)
--- NOTE | 2019-09-28 15:24 | PGE_ITS ---
Date of Service Date of service: 09/28/19 Time of Service: 15:24 Assessment and Plan Assessment and plan (1) Diabetic ketoacidosis associated with type 2 diabetes mellitus: Status: Resolved Assessment and plan: her DKA has been resolved however her glucose readings have remained high in the 300's probably from the hydrocortisone. I have discontinued her hydrocortisone and her NPH and adjusted her sliding scale and her Lantus dose and added CHO coverage Qualifiers: Diabetes mellitus complication detail: without coma Qualified Code(s): E11.10 - Type 2 diabetes mellitus with ketoacidosis without coma (2) Community acquired pneumonia of both lungs: Status: Acute Assessment and plan: improving. will change her from iv ceftriaxone and iv doxycycycline to oral ceftin and doxy. continue w/ aerosol treatments. will discontinue her iv hydrocortisone. she has completed 3d course. (3) Abdominal pain: Status: Acute Assessment and plan: resolved although she is still constipated. I will give her mag citrate and dulcolax suppository Qualifiers: Abdominal location: generalized Qualified Code(s): R10.84 - Generalized abdominal pain (4) Constipation: Status: Acute (5) Hypervolemia: Status: Suspected Assessment and plan: I think some of he increased oxygen requirement and her unresolved coughing may be d/t hypervolemia. Although she does not have pedal edema she has some pitting presacral edema and she has bibasilar rales. POCUS of her lungs reveals bibasilar B lines suggestive of CHF. I am going to give her additional lasix 40 mg tonight. Subjective Subjective Interval history since last seen: Patient is gradually improving. She no longer has any nausea no abdominal pain. She still has a moist cough but is unable to produce any sputum. She remains afebrile. Her chest x-ray on admission was read as questionable mild pulmonary edema versus chronic interstitial changes.. CT of her abdomen and pelvis showed no acute abdominopelvic process. She has fatty infiltration of her liver and pancreas and a stable L1 compression fracture. CT did show bilateral basilar interstitial and alveolar opacities. This is felt to be likely chronic but a superimposed pneumonia cannot be excluded. Her laboratory studies showed improvement in her leukocytosis her white count is down to 6600. She has a stable chronic anemia with a hemoglobin 11.7 g. Her CMP shows her glucose is still elevated at 325. She is remained elevated throughout the day and the low to mid 300s. This is probably secondary to the hydrocortisone she was on. I have since stopped her hydrocortisone and adjusted her Lantus as well as her sliding scale and added mealtime coverage. Her diet is been advanced and she seems to be tolerating her diet. I am changing over to oral antibiotics including oral doxycycline and Ceftin. Exam Narrative Exam Narrative: Elderly obese female sitting up in bed in semi-sawant position. She has a moist cough but is in no acute respiratory distress. Lungs reveal scattered wheezes along with some bibasilar rales. Heart is regular without audible murmur rub or gallop. Abdomen is obese soft and nontender. Lower extremities without peripheral cyanosis or edema Trace of presacral edema is present Objective Objective Clinical Data: Abnormal lab results 09/28/19 09/28/19 Range/Units 06:40 06:45 Hgb 11.7 L (12.0-15.5) g/dL Hct 35.6 L (36.0-46.0) % Absolute Lymphocytes 0.96 L (1.2-3.4) k/cumm BUN 22 H D (7-18) mg/dL Creatinine 1.14 H (0.55-1.02) mg/dL Glucose 325 H (74-106) mg/dL Vital Signs Temperature 37.6 C H 09/28/19 15:23 Temperature Source Tympanic 09/28/19 15:23 Pulse 81 09/28/19 15:23 Pulse Rhythm Regular 09/28/19 15:16 Pulse 82 09/27/19 12:02 Respiratory Rate 24 09/28/19 15:23 Respiratory Effort Non-Labored 09/28/19 15:16 Respiratory Depth Normal 09/28/19 15:16 Respiratory Pattern Normal 09/28/19 15:16 Blood Pressure 112/66 09/28/19 15:23 Blood Pressure Mean 79 09/27/19 21:09 Blood Pressure Position Supine 09/27/19 03:24 Pulse Oximetry 95 09/28/19 15:23 Oxygen Delivery Method Nasal Cannula 09/28/19 15:23 Oxygen Flow Rate 1 09/28/19 15:23 Pain Level 0 09/28/19 15:23 Intake & Output 09/27/19 09/28/19 09/28/19 23:59 11:59 23:59 Intake Total 450 / 2700.975 50 / 50 Output Total 2950 / 4800 1225 / 2625 1400 / 2625 Balance -2500 / -2099.025 -1175 / -2575 -1400 / -2575 Intake: IV 100 / 2035.975 50 / 50 Oral 350 / 665 Output: Urine 2950 / 4800 1225 / 2625 1400 / 2625 Other: Urine Color Yellow Yellow Pale Yellow Urine Appearance Clear Clear Clear Urine Odor Normal None Stool Size Small Stool Characteristics Soft Formed Voiding Methods Bedside Commode Toilet Toilet Laboratory Results WBC 6.62 k/cumm (4.4-10.8) 09/28/19 06:45 RBC 4.15 m/cumm (4.00-5.20) 09/28/19 06:45 Hgb 11.7 g/dL (12.0-15.5) L 09/28/19 06:45 Hct 35.6 % (36.0-46.0) L 09/28/19 06:45 MCV 85.8 fL (80-95) 09/28/19 06:45 MCH 28.2 pg (27.0-33.0) 09/28/19 06:45 MCHC 32.9 g/dL (32.0-36.0) 09/28/19 06:45 RDW 14.5 % (11.7-14.6) 09/28/19 06:45 Plt Count 251 x1000/uL (130-400) 09/28/19 06:45 MPV 10.5 fL (8.0-11.0) 09/28/19 06:45 Immature Gran % 0.2 09/28/19 06:45 Neutrophils % 75.1 09/28/19 06:45 Lymphocytes % 14.5 09/28/19 06:45 Monocytes % 7.3 09/28/19 06:45 Eosinophils % 2.3 09/28/19 06:45 Basophils % 0.6 09/28/19 06:45 Absolute Neutrophils 4.98 k/cumm (1.2-6.7) 09/28/19 06:45 Absolute Lymphocytes 0.96 k/cumm (1.2-3.4) L 09/28/19 06:45 Absolute Monocytes 0.48 k/cumm (0.11-0.7) 09/28/19 06:45 Absolute Eosinophils 0.15 k/cumm (0.0-0.7) 09/28/19 06:45 Absolute Basophils 0.04 k/cumm (0.0-0.2) 09/28/19 06:45 VBG pH 7.31 (7.32-7.43) L 09/26/19 18:47 VBG pCO2 46 mm/Hg (34-47) 09/26/19 18:47 VBG pO2 29 mm/Hg (28-44) 09/26/19 18:47 VBG HCO3 23 mmol/L (22-28) 09/26/19 18:47 VBG Total CO2 21 mmol/L (22-29) L 09/26/19 18:47 VBG O2 Saturation 59 % (70-80) L 09/26/19 18:47 VBG Base Excess -3.4 mmol/L (-3-3) L 09/26/19 18:47 Sodium 141 mmol/L (136-145) 09/28/19 06:40 Potassium 3.8 mmol/L (3.5-5.1) D 09/28/19 06:40 Chloride 106 mmol/L (98-107) 09/28/19 06:40 Carbon Dioxide 25.1 mmol/L (21.0-32.0) 09/28/19 06:40 Anion Gap 9.9 mmol/L (3-11) 09/28/19 06:40 BUN 22 mg/dL (7-18) H D 09/28/19 06:40 Creatinine 1.14 mg/dL (0.55-1.02) H 09/28/19 06:40 Estimated GFR/1.73 m2 47.40 (mL/min/1.73m2) 09/28/19 06:40 Glucose 325 mg/dL (74-106) H 09/28/19 06:40 Lactate 1.1 mmol/L (0.6-1.4) 09/26/19 06:20 Calcium 8.8 mg/dL (8.5-10.1) 09/28/19 06:40 Magnesium 1.8 mg/dL (1.8-2.4) 09/28/19 06:40 Total Bilirubin 0.3 mg/dL (0.2-1.0) 09/26/19 06:20 AST 9 U/L (15-37) L 09/26/19 06:20 ALT 8 U/L (14-59) L 09/26/19 06:20 Alkaline Phosphatase 93 U/L (46-116) 09/26/19 06:20 Troponin I < 0.05 ng/Ml (<0.06) 09/26/19 06:20 Total Protein 6.0 g/dL (6.4-8.2) L 09/26/19 06:20 Albumin 2.7 g/dL (3.4-5.0) L 09/26/19 06:20 Triglycerides 305 mg/dL (<150) 09/26/19 13:55 Lipase 39 U/L (73-393) L 09/26/19 13:55 Urine Color Yellow (Yellow) 09/26/19 07:33 Urine Clarity Clear (Clear) 09/26/19 07:33 Urine pH 5.5 (5-8) 09/26/19 07:33 Ur Specific [place] 1.020 (1.005-1.025) 09/26/19 07:33 Urine Protein Negative mg/dL (Negative) 09/26/19 07:33 Urine Ketones 15 mg/dL (Negative) H 09/26/19 07:33 Urine Blood Trace-intact (Negative) H 09/26/19 07:33 Urine Nitrite Negative (Negative) 09/26/19 07:33 Urine Bilirubin Negative (Negative) 09/26/19 07:33 Urine Urobilinogen 0.2 EU/dL (Up TO 0.2) 09/26/19 07:33 Ur Leukocyte Esterase Trace (Negative) H 09/26/19 07:33 Urine RBC 0-2 HPF (0-2) 09/26/19 07:33 Urine WBC 3-5 HPF (0-5) 09/26/19 07:33 Ur Epithelial Cells Few HPF (Negative) 09/26/19 07:33 Urine Crystals Moderate uric acid HPF (Negative) 09/26/19 07:33 Urine Bacteria Few HPF (Negative) 09/26/19 07:33 Urine Casts Negative LPF (Negative) 09/26/19 07:33 Urine Mucus Negative (Negative) 09/26/19 07:33 Urine Other Few renal (Negative) 09/26/19 07:33 Ur Culture Indicated? Yes 09/26/19 07:33 Urine Glucose 500 mg/dL (Negative) H 09/26/19 07:33 Reviewed Pertinent PMH: Yes Objective Narrative Objective Narrative: Urine culture shows 10-50,000 colonies of mixed gram- positive caryn. Blood culture showing no growth at 48 hours. Influenza swab was negative. Sputum culture was never able to be obtained.
[2019-09-28] MEDS: Magnesium Citrate 300 ML BTL 150 ML PO (16:09)
[2019-09-28] MEDS: Bisacodyl 10 MG SUPP PR (18:34)
[2019-09-28] MEDS: Enoxaparin 30 MG/0.3 ML SYR SC (20:48)
[2019-09-28] MEDS: Doxycycline Hyclate 100 MG CAP PO (20:48)
[2019-09-28] MEDS: Cefuroxime 500 MG TAB PO (20:48)
[2019-09-28] MEDS: Simvastatin 40 MG TAB PO (22:23)
[2019-09-28] MEDS: Insulin Glargine 300 UNITS/3 ML PEN 65 UNITS SC (22:24)
[2019-09-29] VITALS (7 sets, daily range): BP systolic 106–134; BP diastolic 57–68; PULSE 71–87; RESP 5–18; TEMP 36.1–37.4; O2SAT 95–98
[2019-09-29 07:25] LABS: Anion Gap 10.4 mmol/L (3-11); BUN 25 mg/dL (7-18); CO2 30.6 mmol/L (21.0-32.0); Calcium 8.8 mg/dL (8.5-10.1); Chloride 105 mmol/L (98-107); Estimated GFR 55.14 (mL/min/1.73m2); Glucose 153 mg/dL (74-106); NT-proBNP 791 pg/mL (<300); Potassium 3.1 mmol/L (3.5-5.1); Sodium 146 mmol/L (136-145)
[2019-09-29] MEDS: Budesonide/Formoterol 160/4.5 6 GM 60 PUFF INH IH ×2 (08:30→19:53)
[2019-09-29] MEDS: Insulin Aspart 300 UNITS/3 ML PEN SC ×6 (09:06→22:23)
[2019-09-29] MEDS: Pantoprazole 40 MG VIAL IVP (09:08)
[2019-09-29] MEDS: Normal Saline Flush 10 ML SYR IVP (09:08)
[2019-09-29] MEDS: Cetirizine 10 MG TAB 5 MG PO (09:10)
[2019-09-29] MEDS: Furosemide 40 MG TAB PO ×2 (09:10→15:55)
[2019-09-29] MEDS: Magnesium Chloride 64 MG TABCR PO ×3 (09:11→19:55)
[2019-09-29] MEDS: Donepezil 5 MG TAB PO (09:11)
[2019-09-29] MEDS: Doxycycline Hyclate 100 MG CAP PO ×2 (09:11→19:55)
[2019-09-29] MEDS: Sucralfate 1 GM TAB PO ×4 (09:11→22:24)
--- NOTE | 2019-09-29 09:11 | CMPROGNOTE_ITS ---
Care Management Progress Note S/O: Elly remains agreeable to plan with no new changes at this time, she continues to work with PT and made further progress today in ambulation distance. CM continues to follow and support discharge planning considerations. Sarah Beth RN at [facility] reported Elly only required a resumption of services; CM inquired to end date for cert period; Sarah Beth then reported end date as 09/30/19, but reported if Elly discharged tomorrow she would still be covered under current certification period. Due to request for increasing services and additional service supports, this junior technical writer will be recommending new orders upon discharge. CM continues to follow. A: 69 year old female admitted to [facility] 09/25/19 for DKA, Pneumonia P: Elly will continue to be closely monitored and treated. Anticipate new VNA orders upon discharge including RN (including DM2 oversight)/PT/OT (CM faxed referral to [facility]). As well, she will re-enroll in day services through [facility]: notification to Community based CM; Nellie Neal at [facility] will be required prior to discharge. CM will continue to follow and support discharge planning considerations. Elly reports a supportive network of family and friends and consistent stability in the community prior to getting sick. The exception, she reports, is managing her diabetes which shes states has been chronically difficult to manage. She reports previously working with a environmental educator and attending healthy living classes. CM reviewed healthy food attainment at [facility] and [employer] [facility] locally as Elly reported bread, potatoes and butter raise my blood sugar.
[2019-09-29] MEDS: Metoclopramide 10 MG TAB PO ×4 (09:12→22:24)
[2019-09-29] MEDS: Cefuroxime 500 MG TAB PO ×2 (09:12→19:55)
[2019-09-29] MEDS: guaiFENesin 600 MG TABCR PO ×2 (09:12→19:55)
[2019-09-29] MEDS: Nystatin POWDER 15 GM JAR TP ×2 (09:13→19:53)
[2019-09-29] MEDS: Benzonatate 100 MG CAP PO (09:22)
--- NOTE | 2019-09-29 11:58 | PT.INTREAT ---
Date of service: 09/29/19 Time of Service: 11:58 PT Notes Visit Reasons: DKA,PNEUMONIA Inpatient Physical Therapy Treatment Note [facility] Date: 09/29/2019 PRECAUTIONS: Fall, activity as tolerated SUBJECTIVE: Elly reports that she is feeling good today, she is agreeable to participating in PT. OBJECTIVE: PAIN: Patient complained of knee pain with gait training BED MOBILITY/TRANSFERS Supine-sit: I Sit-stand: I Stand-sit: I GAIT Assistive Device: FWW Weight bearing: Full Assist: I (with assist for bringing O2 tank only) Distance: 200' + 100' Deviation: Seated rest x1 due to c/o knee pain STAIRS: Up/down 3x4 and 2x6 using B rails and a step-over pattern, independently ASSESSMENT: Patient tolerated session well, with complaints of knee pain with gait training. She was able to tolerate a progression in gait distance with FWW support, independently, with assist for bringing O2 tank. PLAN: Continue with PTs POC TREATMENT CODE/TIME: 15 minutes; [id number]
[2019-09-29] MEDS: Escitalopram 10 MG TAB PO (12:11)
[2019-09-29] MEDS: Ferrous Sulfate 325 MG TAB PO ×2 (12:11→22:24)
--- NOTE | 2019-09-29 12:27 | W.PM.PROGNOT ---
Date of Service Date of service: 09/29/19 Time of Service: 12:28 Assessment and Plan Assessment and plan (1) Community acquired pneumonia of both lungs: Status: Acute Assessment and plan: She continues to improve. She is not dyspneic. Cough remains nonproductive. She remains afebrile. She is on day #4 of antibiotics and now currently on oral antibiotics including Ceftin and Doxycycline . (2) Abdominal pain: Status: Acute Assessment and plan: mild abdominal wall pain secondary to coughing. constipation is resolved Qualifiers: Abdominal location: generalized Qualified Code(s): R10.84 - Generalized abdominal pain (3) Constipation: Status: Resolved (4) Hypervolemia: Status: Acute Assessment and plan: improved on the increased dosing of her lasix. I will resume her spironolactone but repeat her BMP in the a.m. (5) Diabetic ketoacidosis associated with type 2 diabetes mellitus: Status: Resolved Assessment and plan: Although her DKA is resolved we are continuing to adjust her insulin to obtain better glucose control. Qualifiers: Diabetes mellitus complication detail: without coma Qualified Code(s): E11.10 - Type 2 diabetes mellitus with ketoacidosis without coma Subjective Subjective Interval history since last seen: Overall Elly continues to improve. She does have some slight epigastric abdominal wall tenderness probably due to her harsh coughing. Cough is still nonproductive. She remains afebrile. Her oxygen saturation has improved ranging between 95 and 97%. She is down to 1 L/min per nasal cannula which is her baseline oxygen. I did not repeat her CBC as her CBC yesterday was unchanged from the day before and showed no leukocytosis. She has a stable mild/borderline chronic anemia with a hemoglobin of around 11 g. Her chemistry panel today showed an elevated sodium of 146. Potassium is low at 3.1. BUN is stable at 25 and creatinine stable at 1.0. She was put on twice daily dosing of her Lasix. Her proBNP today is 791 her baseline had been 167 back on January 19, 2019. Glucose is doing better today. Her fasting lab glucose was 153 and her prebreakfast fingerstick was 129. Her prelunch glucose was 269. Overall her glucose is trending down since I stop the IV corticosteroids. We are continuing to adjust her insulin dose. I increased her Lantus to 65 units at night. I have also adjusted her sliding scale and her mealtime coverage. We will resume her Tradjenta. Patient continues on oral antibiotics including Ceftin and doxycycline. I will resume her spironolactone dose and correct her hypokalemia with some potassium supplementation. Repeat BMP and proBNP will be obtained in the morning. Exam Narrative Exam Narrative: Elderly female lying in bed in semi-sawant position. She is alert and oriented person place time circumstance. Neck is supple without JVD Lungs are clear to auscultation without wheezes rales or rhonchi Heart is regular rate and rhythm Abdomen is obese soft with some mild epigastric tenderness. There is no guarding or rebound tenderness. Lower extremities without peripheral cyanosis or edema Objective Objective Clinical Data: Abnormal lab results 09/29/19 Range/Units 06:52 Sodium 146 H (136-145) mmol/L Potassium 3.1 L (3.5-5.1) mmol/L BUN 25 H (7-18) mg/dL Glucose 153 H D (74-106) mg/dL Vital Signs Temperature 36.7 C 09/29/19 11:21 Temperature Source Skin 09/29/19 11:21 Pulse 71 09/29/19 11:21 Pulse Rhythm Regular 09/28/19 20:05 Pulse 82 09/27/19 12:02 Respiratory Rate 18 09/29/19 11:21 Respiratory Effort Non-Labored 09/28/19 20:05 Respiratory Depth Normal 09/28/19 20:05 Respiratory Pattern Normal 09/28/19 20:05 Blood Pressure 114/57 L 09/29/19 11:21 Blood Pressure Mean 79 09/27/19 21:09 Blood Pressure Position Supine 09/27/19 03:24 Pulse Oximetry 96 09/29/19 11:21 Oxygen Delivery Method Nasal Cannula 09/29/19 11:21 Oxygen Flow Rate 1 09/29/19 11:21 Pain Level 0 09/29/19 09:03 Intake & Output 09/28/19 09/29/19 09/29/19 23:59 11:59 23:59 Intake Total 1680 / 2320 840 / 840 Output Total 3100 / 4775 600 / 600 Balance -1420 / -2455 240 / 240 Intake: Oral 1680 / 2160 840 / 840 Output: Urine 3100 / 4775 600 / 600 Other: Urine Color Pale Yellow Yellow Urine Appearance Clear Clear Urine Odor None Stool Occult Blood Negative Positive Stool Size Small Moderate Stool Characteristics Formed Soft Brown Voiding Methods Toilet Toilet Laboratory Results WBC 6.62 k/cumm (4.4-10.8) 09/28/19 06:45 RBC 4.15 m/cumm (4.00-5.20) 09/28/19 06:45 Hgb 11.7 g/dL (12.0-15.5) L 09/28/19 06:45 Hct 35.6 % (36.0-46.0) L 09/28/19 06:45 MCV 85.8 fL (80-95) 09/28/19 06:45 MCH 28.2 pg (27.0-33.0) 09/28/19 06:45 MCHC 32.9 g/dL (32.0-36.0) 09/28/19 06:45 RDW 14.5 % (11.7-14.6) 09/28/19 06:45 Plt Count 251 x1000/uL (130-400) 09/28/19 06:45 MPV 10.5 fL (8.0-11.0) 09/28/19 06:45 Immature Gran % 0.2 09/28/19 06:45 Neutrophils % 75.1 09/28/19 06:45 Lymphocytes % 14.5 09/28/19 06:45 Monocytes % 7.3 09/28/19 06:45 Eosinophils % 2.3 09/28/19 06:45 Basophils % 0.6 09/28/19 06:45 Absolute Neutrophils 4.98 k/cumm (1.2-6.7) 09/28/19 06:45 Absolute Lymphocytes 0.96 k/cumm (1.2-3.4) L 09/28/19 06:45 Absolute Monocytes 0.48 k/cumm (0.11-0.7) 09/28/19 06:45 Absolute Eosinophils 0.15 k/cumm (0.0-0.7) 09/28/19 06:45 Absolute Basophils 0.04 k/cumm (0.0-0.2) 09/28/19 06:45 VBG pH 7.31 (7.32-7.43) L 09/26/19 18:47 VBG pCO2 46 mm/Hg (34-47) 09/26/19 18:47 VBG pO2 29 mm/Hg (28-44) 09/26/19 18:47 VBG HCO3 23 mmol/L (22-28) 09/26/19 18:47 VBG Total CO2 21 mmol/L (22-29) L 09/26/19 18:47 VBG O2 Saturation 59 % (70-80) L 09/26/19 18:47 VBG Base Excess -3.4 mmol/L (-3-3) L 09/26/19 18:47 Sodium 146 mmol/L (136-145) H 09/29/19 06:52 Potassium 3.1 mmol/L (3.5-5.1) L 09/29/19 06:52 Chloride 105 mmol/L (98-107) 09/29/19 06:52 Carbon Dioxide 30.6 mmol/L (21.0-32.0) 09/29/19 06:52 Anion Gap 10.4 mmol/L (3-11) 09/29/19 06:52 BUN 25 mg/dL (7-18) H 09/29/19 06:52 Creatinine 1.00 mg/dL (0.55-1.02) 09/29/19 06:52 Estimated GFR/1.73 m2 55.14 (mL/min/1.73m2) 09/29/19 06:52 Glucose 153 mg/dL (74-106) H D 09/29/19 06:52 Lactate 1.1 mmol/L (0.6-1.4) 09/26/19 06:20 Calcium 8.8 mg/dL (8.5-10.1) 09/29/19 06:52 Magnesium 1.8 mg/dL (1.8-2.4) 09/28/19 06:40 Total Bilirubin 0.3 mg/dL (0.2-1.0) 09/26/19 06:20 AST 9 U/L (15-37) L 09/26/19 06:20 ALT 8 U/L (14-59) L 09/26/19 06:20 Alkaline Phosphatase 93 U/L (46-116) 09/26/19 06:20 Troponin I < 0.05 ng/Ml (<0.06) 09/26/19 06:20 NT-Pro-B Natriuret Pep 791 pg/mL (<300) 09/29/19 06:52 Total Protein 6.0 g/dL (6.4-8.2) L 09/26/19 06:20 Albumin 2.7 g/dL (3.4-5.0) L 09/26/19 06:20 Triglycerides 305 mg/dL (<150) 09/26/19 13:55 Lipase 39 U/L (73-393) L 09/26/19 13:55 Urine Color Yellow (Yellow) 09/26/19 07:33 Urine Clarity Clear (Clear) 09/26/19 07:33 Urine pH 5.5 (5-8) 09/26/19 07:33 Ur Specific [place] 1.020 (1.005-1.025) 09/26/19 07:33 Urine Protein Negative mg/dL (Negative) 09/26/19 07:33 Urine Ketones 15 mg/dL (Negative) H 09/26/19 07:33 Urine Blood Trace-intact (Negative) H 09/26/19 07:33 Urine Nitrite Negative (Negative) 09/26/19 07:33 Urine Bilirubin Negative (Negative) 09/26/19 07:33 Urine Urobilinogen 0.2 EU/dL (Up TO 0.2) 09/26/19 07:33 Ur Leukocyte Esterase Trace (Negative) H 09/26/19 07:33 Urine RBC 0-2 HPF (0-2) 09/26/19 07:33 Urine WBC 3-5 HPF (0-5) 09/26/19 07:33 Ur Epithelial Cells Few HPF (Negative) 09/26/19 07:33 Urine Crystals Moderate uric acid HPF (Negative) 09/26/19 07:33 Urine Bacteria Few HPF (Negative) 09/26/19 07:33 Urine Casts Negative LPF (Negative) 09/26/19 07:33 Urine Mucus Negative (Negative) 09/26/19 07:33 Urine Other Few renal (Negative) 09/26/19 07:33 Ur Culture Indicated? Yes 09/26/19 07:33 Urine Glucose 500 mg/dL (Negative) H 09/26/19 07:33
[2019-09-29] MEDS: Potassium Chloride 20 MEQ TABCR PO ×2 (14:49→19:55)
[2019-09-29] MEDS: Spironolactone 25 MG TAB PO (14:49)
[2019-09-29] MEDS: Albuterol/Ipratropium 3 ML UPD VIAL UPD (16:02)
[2019-09-29] MEDS: Enoxaparin 30 MG/0.3 ML SYR SC (19:54)
[2019-09-29] MEDS: Docusate Sodium 100 MG CAP PO (19:55)
--- NOTE | 2019-09-29 20:17 | NUR.NOTE ---
Nursing Note: Cleaned area of the rash in the pannus with soap and warm water , then patted dry. The nystatin powder was applied after this. patient did not c/o burn or pain with the rash
[2019-09-29] MEDS: Insulin Glargine 300 UNITS/3 ML PEN 65 UNITS SC (22:22)
[2019-09-29] MEDS: Simvastatin 40 MG TAB PO (22:24)
[2019-09-30] VITALS (7 sets, daily range): BP systolic 118–122; BP diastolic 62–77; PULSE 82–101; RESP 1–22; TEMP 36.5–37; O2SAT 92–99
[2019-09-30] MEDS: Budesonide/Formoterol 160/4.5 6 GM 60 PUFF INH IH (08:15)
[2019-09-30] MEDS: Tiotropium/Olodaterol 10 PUFF INHALER 2 PUFF IH (08:16)
--- NOTE | 2019-09-30 09:12 | DI.RAD_ITS ---
EXAM: XR CHEST 2V PA LATERAL INDICATION: pneumonia. COMPARISON: XR CHEST 2V PA LATERAL from 09/25/2019 TECHNIQUE: 2D digital imaging was performed. FINDINGS: The lungs are poorly inflated on both views. The heart size is normal. There are underlying chronic fibrotic changes. No superimposed infiltrate, effusion or pulmonary edema is seen. IMPRESSION: Fibrotic changes. No gross evidence of acute abnormality.
[2019-09-30] MEDS: Normal Saline Flush 10 ML SYR IVP (09:24)
[2019-09-30] MEDS: Donepezil 5 MG TAB PO (09:25)
[2019-09-30] MEDS: Docusate Sodium 100 MG CAP PO (09:25)
[2019-09-30] MEDS: Doxycycline Hyclate 100 MG CAP PO (09:25)
[2019-09-30] MEDS: Cefuroxime 500 MG TAB PO (09:25)
[2019-09-30] MEDS: Sucralfate 1 GM TAB PO ×3 (09:25→16:22)
[2019-09-30] MEDS: Magnesium Chloride 64 MG TABCR PO ×2 (09:25→14:15)
[2019-09-30] MEDS: Potassium Chloride 20 MEQ TABCR PO (09:25)
[2019-09-30] MEDS: Ferrous Sulfate 325 MG TAB PO (09:25)
[2019-09-30] MEDS: Spironolactone 25 MG TAB PO (09:26)
[2019-09-30] MEDS: Pantoprazole 40 MG TABCR PO (09:26)
[2019-09-30] MEDS: guaiFENesin 600 MG TABCR PO (09:26)
[2019-09-30] MEDS: Metoclopramide 10 MG TAB PO ×3 (09:26→16:22)
[2019-09-30] MEDS: Cetirizine 10 MG TAB 5 MG PO (09:26)
[2019-09-30] MEDS: Furosemide 40 MG TAB PO ×2 (09:26→16:22)
[2019-09-30] MEDS: Insulin Aspart 300 UNITS/3 ML PEN SC ×5 (09:27→16:21)
[2019-09-30] MEDS: Nystatin POWDER 15 GM JAR TP ×2 (09:28→14:15)
[2019-09-30 09:59] LABS: Abs Immature Grans 0.05 k/cumm (0.0-0.09); Absolute Basophil Count 0.05 k/cumm (0.0-0.2); Absolute Eosinophil Count 0.46 k/cumm (0.0-0.7); Absolute Lymphocyte Count 2.09 k/cumm (1.2-3.4); Absolute Monocyte Count 0.65 k/cumm (0.11-0.7); Absolute Neutrophil Count 5.75 k/cumm (1.2-6.7); Basophils % 0.6; Eosinophils % 5.1; HCT 41.6 % (36.0-46.0); HGB 13.7 g/dL (12.0-15.5); Immature Grans % 0.6; Lymphocytes % 23.1; Mean Corp. HGB Concentration 32.9 g/dL (32.0-36.0); Mean Corpuscular Hemoglobin 28.8 pg (27.0-33.0); Mean Corpuscular Volume 87.6 fL (80-95); Mean Platelet Volume 10.2 fL (8.0-11.0); Monocytes % 7.2; Neutrophils % 63.4; Platelet Count 338 x1000/uL (130-400); RBC 4.75 m/cumm (4.00-5.20); RBC Distribution Width 15.3 % (11.7-14.6); White Blood Cell Count 9.05 k/cumm (4.4-10.8)
[2019-09-30 10:18] LABS: Anion Gap 8.5 mmol/L (3-11); BUN 29 mg/dL (7-18); CO2 29.5 mmol/L (21.0-32.0); CREATININE 1.07 mg/dL (0.55-1.02); Calcium 8.9 mg/dL (8.5-10.1); Chloride 100 mmol/L (98-107); Glucose 277 mg/dL (74-106); Magnesium 1.8 mg/dL (1.8-2.4); Potassium 3.9 mmol/L (3.5-5.1); Sodium 138 mmol/L (136-145)
[2019-09-30 10:40] LABS: NT-proBNP 204 pg/mL (<300)
--- NOTE | 2019-09-30 10:58 | PT.INTREAT ---
Date of service: 09/30/19 Time of Service: 10:58 PT Notes Visit Reasons: DKA,PNEUMONIA Inpatient Physical Therapy Treatment Note [facility] Date: 09/30/2019 PRECAUTIONS: Fall, activity as tolerated SUBJECTIVE: Elly reports that she is feeling good today, she is agreeable to participating in PT. OBJECTIVE: PAIN: Patient complained of knee pain with gait training BED MOBILITY/TRANSFERS Supine-sit: I Sit-stand: I Stand-sit: I GAIT Assistive Device: FWW Weight bearing: Full Assist: I (with assist for bringing O2 tank only) Distance: 100' + 200' Deviation: Seated rest x1 due to mild SOB ASSESSMENT: Patient tolerated session well, with complaints of mild SOB with gait training. PLAN: Continue with PTs POC TREATMENT CODE/TIME: 15 minutes; [id number]
--- NOTE | 2019-09-30 11:55 | W.SPEECHNOTE ---
Date of service: 09/30/19 Time of Service: 11:55 Speech Therapy Visit Note Note: PARTITION ASSEMBLY MACHINE OPERATOR consulted with Dr. Carrizales today regarding speech consult request upon admission due to concern for aspiration. MD indicates that pt had no difficulty with PO intake of regular diet over the weekend and does not suspect aspiration events at this time. MD plans to cancel dysphagia assessment order. Please contact PARTITION ASSEMBLY MACHINE OPERATOR department with any further concerns.
[2019-09-30] MEDS: Escitalopram 10 MG TAB PO (11:57)
[2019-09-30] MEDS: Benzonatate 100 MG CAP PO (12:07)
[2019-09-30] MEDS: Albuterol/Ipratropium 3 ML UPD VIAL UPD (12:32)
--- NOTE | 2019-09-30 14:55 | W.PM.DS.N ---
DS: Diagnosis Discharge Diagnosis (1) Community acquired pneumonia of both lungs: Start date: 09/30/19 Start time: 15:28 Status: Acute Asessment and Plan: Improving, will finish course of antibiotics for a full 7 days. Finished steroid course while in hospital. Follow up with PCP in 1-2 weeks. (2) Abdominal pain: Start date: 09/30/19 Start time: 15:29 Status: Acute Asessment and Plan: Appears chronic in nature (3) Constipation: Status: Resolved (4) Hypervolemia: Status: Acute (5) Diabetic ketoacidosis associated with type 2 diabetes mellitus: Start date: 09/30/19 Start time: 14:58 Status: Resolved Asessment and Plan: Resolved. Am BGL 277 Discharge Plan Disposition Patient Disposition: HOME Condition: Improving Discharge Details Chief Complaint: Nausea/Vomit/Diar Reason For Visit: DKA,PNEUMONIA Admit Date/Time: 09/25/19 19:29 Admit Provider: Tre Carrizales Attending Provider: Tre Carrizales Primary Care Provider: Mario Garcia [facility] Hospital Course: 69-year-old female with poorly controlled type 2 diabetes mellitus (reportedly has had DM since her 40's) previously treated with sulfonylureas and metformin but now requiring insulin with a history of poor medical compliance. Her diabetes mellitus is been complicated by hospitalizations for DKA on March 12, 2019 with a subsequent rehab stay for 3 to 4 weeks. She has also had a number of hypoglycemia spells in the past. Her other comorbidities include essential hypertension, PTSD, asthma, Alzheimer's dementia. She presented to [facility] ED with a 5 day cough purulent sputum with green discoloration along with 3-4 days of chills and worsening SOB. In the ED she was found to have an elevated WBC, elevated BUN and creatinine, with a glucose of 839, anion gap 20 and lactate with 2.8. She was admitted to ICU for further management and treatment she initiated on a insulin drip, with positive results with in 24 hours. She was fed and given SSI insulin then transferred to /. She also revceived IV Rocephin at 2 g IV daily, doxycycline 100 mg IV every 12 hours x couple day, with prn nebs, IV corticosteroids. She was initially requiring oxygen however today she is 95% on RA while ambulating. CXR PA & lateral Fibrotic changes. No gross evidence of acute abnormality. She denies CP, SOB, N/v/d. Blood glucose today is 277, repeat lactate 1.6, Patient is being discharged home. She will need follow up with her PCP in 1-2 weeks. Continue medication course Home Meds and New Rx's Prescriptions: New doxycycline hyclate 100 mg Capsule 100 mg PO Q12H Qty: 5 RF: 0 sucralfate 1 gram Tablet 1 g PO AC & HS Qty: 120 RF: 0 cefuroxime axetil 500 mg Tablet 500 mg PO BID Qty: 5 RF: 0 Symbicort 160-4.5 mcg/actuation Hfa Aerosol Inhaler 2 puff inhalation BID Qty: 1 RF: 0 Continued Breo Ellipta 200-25 mcg/dose blister with device 1 inh IH DAILY Qty: 60 RF: 6 albuterol sulfate 2.5 mg /3 mL (0.083 %) solution for nebulization 2.5 mg Inhalation Q6H PRN (Reason: shortness of breath or wheezing) Qty: 10 RF: 6 (DME) Wheeled walker with seat and basket Qty: 1 RF: 0 potassium chloride [Klor-Con] 20 mEq packet 20 meq PO DAILY RF: 0 spironolactone 25 mg tablet 25 mg PO DAILY Qty: 90 RF: 3 (DME) compress.stocking,knee,reg,lrg misc See Dose Instructions .ROUTE .MEDSUPPLY Qty: 2 RF: 0 Januvia 25 mg tablet 25 mg PO QAM Qty: 90 RF: 0 tramadol 50 mg tablet 25 mg PO QHS PRN (Reason: pain) Qty: 20 RF: 0 bisacodyl 5 mg tablet,delayed release (DR/EC) 5 mg PO DAILY Qty: 30 RF: 11 donepezil 5 mg tablet,disintegrating 5 mg PO DAILY Qty: 30 RF: 11 Shingrix (PF) 50 mcg/0.5 mL suspension for reconstitution 50 mcg IM ONCE Qty: 1 RF: 1 albuterol sulfate [Ventolin HFA] 8 GM HFA aerosol inhaler 2 puff Inhalation Q4H PRN Qty: 1 RF: 4 (DME) pen needle, diabetic [Pen Needle] 1 EACH needle 1 ea Miscellaneous QID Qty: 4 RF: 3 epinephrine [EpiPen 2-Gordon] 0.3 MG/0.3 ML auto-injector 0.3 mg IM ONCE Qty: 1 RF: 0 (DME) Oxygen Tank See Dose Instructions .ROUTE .MEDSUPPLY Qty: 1 RF: 0 Tradjenta 5 mg tablet 5 mg PO DAILY Qty: 30 RF: 6 simvastatin 40 mg tablet 40 mg PO HS Qty: 30 RF: 11 escitalopram oxalate 10 mg tablet 10 mg PO .NOON Qty: 30 RF: 11 pantoprazole 40 mg tablet,delayed release (DR/EC) 40 mg PO DAILY Qty: 90 RF: 3 guaifenesin 600 mg tablet extended release 12hr 600 mg PO Q12H RF: 0 (DME) Face mask to deliver Oxygen Qty: 2 RF: 6 acidophilus-pectin, citrus 25 million cell -100 mg tablet 1 tab PO TID Qty: 90 RF: 6 cyclobenzaprine 5 mg tablet 5 mg PO TID PRN (Reason: muscle spasm) Qty: 90 RF: 6 dextromethorphan-guaifenesin 10-100 mg/5 mL syrup 10 ml PO Q4H PRN PRN (Reason: cough) Qty: 100 RF: 0 (DME) Blood Glucose Test Strip 1 ea Miscellaneous TID Qty: 400 RF: 12 (DME) lancets 28 gauge misc 1 ea Miscellaneous TID Qty: 400 RF: 12 Stiolto Respimat 2.5-2.5 mcg/actuation mist 2 puff IH DAILY RF: 0 benzonatate [Tessalon Perles] 100 mg capsule 100 mg PO BID-TID PRN (Reason: cough) Qty: 90 RF: 3 metoclopramide HCl [Reglan] 10 mg tablet 10 mg PO Q6H PRN (Reason: nausea and vomiting) Qty: 30 RF: 3 furosemide 40 mg tablet 40 mg PO DAILY Qty: 30 RF: 3 insulin lispro [Humalog KwikPen Insulin] 100 unit/mL insulin pen See Rx Instructions SC .per ss Qty: 15 RF: 3 nystatin 100,000 unit/gram powder 1 applic TP TID Qty: 60 RF: 0 Lantus U-100 Insulin 100 unit/mL solution 72 unit SC DAILY Qty: 10 RF: 6 Lantus Solostar U-100 Insulin 100 unit/mL (3 mL) insulin pen 72 unit SC HS Qty: 15 RF: 3 nystatin 100,000 unit/gram powder 1 applic topical TID Qty: 60 RF: 2 acetaminophen [Tylenol Extra Strength] 500 mg Tablet 1,000 mg PO Q6H PRNRF: 0 ketoconazole 2 % Cream 1 applic topical BID Qty: 30 RF: 0 zinc oxide 20 % Ointment 60 g topical PRN PRNQty: 0 RF: 0 ferrous sulfate 325 mg (65 mg iron) Tablet 325 mg PO BID@1000,2200 Qty: 0 RF: 0 clotrimazole 1 % Cream 60 g topical PRN PRNQty: 0 RF: 0 sodium chloride [Deep Sea Nasal] 0.65 % Aerosol,[place] 44 ml NS QID PRN PRNQty: 0 RF: 0 magnesium chloride [Mag 64] 64 mg Tablet,Delayed Release (Dr/Ec) 64 mg PO TID Qty: 0 RF: 0 vits A and D-white pet-lanolin Ointment 60 g topical PRN PRNQty: 0 RF: 0 cetirizine [Zyrtec] 10 mg tablet 5 mg PO DAILY Qty: 30 RF: 0 Discharge Instructions Instructions: COPD (Chronic Obstructive Pulmonary Disease) (DC), How Your Lungs Work (DC), Chronic Lung Disease and Infection Prevention (DC) Additional Instructions: Follow up with your primary provider in 1-2 weeks. Monitor your blood sugars closely Finish antibiotics Eat a yogurt daily x 1 month Seek medical attention if you have chest pain, shortness of breath, n/v/d Activity:: Activity as Tolerated Equipment/Supplies:: No Equipment Needed Diet:: Low Sodium Discharge Orders Discharge Orders: Discharge Order (Routine); Ordered 09/30/19 Ordered By: Urmila Austin DS: Summary Status at Discharge Functional status at discharge: uses cane/walker Overall status at discharge: patient is back to baseline Mental Status: mental status grossly normal Speech and Movement: speech and movement normal Mood: congruent mood Affect: normal affect Exam Narrative Exam Narrative: Elderly female lying in bed in semi-sawant position. She is alert and oriented person place time circumstance. Neck is supple without JVD Lungs are clear to auscultation without wheezes rales or rhonchi Heart is regular rate and rhythm Abdomen is obese soft with some mild epigastric tenderness. There is no guarding or rebound tenderness. Lower extremities without peripheral cyanosis or edema Psych Mental Status: mental status grossly normal Speech and Movement: speech and movement normal Mood: congruent mood Affect: normal affect DS: Data Vitals/I&O Vitals and I&O: Vital Signs Temperature 36.7 C 09/30/19 11:23 Temperature Source Tympanic 09/30/19 11:23 Pulse 82 09/30/19 12:32 Pulse Rhythm Regular 09/30/19 09:27 Pulse 82 09/27/19 12:02 Respiratory Rate 18 09/30/19 12:39 Respiratory Effort 09/30/19 09:27 Respiratory Depth Normal 09/30/19 09:27 Respiratory Pattern Normal 09/30/19 09:27 Blood Pressure 118/64 09/30/19 11:23 Blood Pressure Mean 79 09/27/19 21:09 Blood Pressure Position Supine 09/27/19 03:24 Pulse Oximetry 96 09/30/19 12:39 Oxygen Delivery Method Room Air 09/30/19 12:32 Oxygen Flow Rate 0 09/30/19 12:32 Pain Level 0 09/30/19 11:23 Intake & Output 09/29/19 09/30/19 09/30/19 23:59 11:59 23:59 Intake Total 490 / 2050 240 / 240 Output Total 1000 / 1600 1000 / 1000 Balance -510 / 450 -760 / -760 Weight 77.8 kg Intake: IV Oral 480 / 2040 240 / 240 Output: Urine 1000 / 1600 1000 / 1000 Other: Urine Color Yellow Yellow Urine Appearance Clear Urine Odor None Voiding Methods Toilet Toilet Data Completed and Pending Completed studies during hospitalization [Text1]: Exam(s) a RAD:XR chest 2V PA & lateral EXAM: XR CHEST 2V PA LATERAL INDICATION: cough. COMPARISON: XR PORTABLE CHEST AP from 03/15/2019 XR abdomen flat upright from 03/16/2019 TECHNIQUE: 2D digital imaging was performed. FINDINGS: The exam is limited due to patient motion and lack of pulmonary inflation. The heart size is normal. The aorta is tortuous. There is vascular crowding and peribronchial thickening which could be secondary to poor inspiratory effort. Mild pulmonary edema cannot be excluded. No focal infiltrate or effusion is seen. IMPRESSION: Limited exam. Question of mild pulmonary edema versus chronic interstitial changes. Exam(s) PROCEDURE INFORMATION: Exam: US Abdomen Complete Exam date and time: 09/26/2019 2:53 PM Age: 69 years old Clinical history: Abdominal pain; Prior surgery TECHNIQUE: Imaging protocol: Real-time ultrasound of the abdomen with image documentation. COMPARISON: CT ABDOMEN PELVIS WO 09/26/2019 5:01 PM FINDINGS: Liver: Mildly hyperechoic liver consistent with fatty infiltration. Gallbladder: Status post cholecystectomy. Common bile duct: Common bile duct 3.4 mm. Pancreas: Partially visualized. Mildly hyperechoic pancreas consistent with fatty infiltration. Right kidney: Right kidney 10.4 cm. No renal calculus or hydronephrosis. Left kidney: Left kidney 11.2 cm. No renal calculus or hydronephrosis. Spleen: Normal. No splenomegaly. Aorta: Normal. No aneurysm. Inferior vena cava: Normal. Portal venous: Hepatopedal flow demonstrated in the portal vein. IMPRESSION: No acute findings with fatty infiltration of the liver and pancreas noted. Exam(s) a US:US abdomen EXAM: US ABDOMEN CLINICAL HISTORY: abdominal pain TECHNIQUE: Ultrasound abdomen performed using standard protocol. COMPARISON: CT ABDOMEN PELVIS WO from 09/26/2019 FINDINGS: LIVER: Mild increased echogenicity suggesting fatty infiltration. The liver is normal in size. No hepatic mass is seen. Portal vein: Hepatopetal flow is demonstrated. GALLBLADDER: The patient is status post cholecystectomy. KIDNEYS: Kidneys are symmetric in size. No evidence of renal calculi. No evidence of hydronephrosis. No renal mass or cyst identified. BILIARY SYSTEM: Common bile duct measures 3.4 millimeters. No intrahepatic biliary ductal dilation. PANCREAS: There is increased echogenicity of the visualized portions of the pancreas consistent with fatty infiltration. The pancreas is only partially visualized. SPLEEN: Not enlarged. ABDOMINAL AORTA AND IVC: Visualized portions normal caliber. ASCITES: None seen. IMPRESSION: Fatty infiltration of the liver and pancreas. Exam(s) PROCEDURE INFORMATION: Exam: CT Abdomen And Pelvis Without Contrast Exam date and time: 09/26/2019 4:59 PM Age: 69 years old Clinical history: Other: Abdominal pain TECHNIQUE: Imaging protocol: Computed tomography of the abdomen and pelvis without contrast. Radiation optimization: All CT scans at this facility use at least one of these dose optimization techniques: automated exposure control; mA and/or kV adjustment per patient size (includes targeted exams where dose is matched to clinical indication); or iterative reconstruction. COMPARISON: CT ABDOMEN PELVIS WO 03/12/2019 6:56 PM FINDINGS: Lungs: Image quality of visualized lung bases limited by respiratory motion. There is again peripheral intralobular septal thickening greater on the right than the left and there is a hazy groundglass opacity of each visualized lobe. This is consistent with chronic interstitial lung disease although pneumonia cannot be excluded. Mediastinum: Small sliding-type hiatal hernia. Liver: There has been overall improvement in the multiple foci of hepatic decreased attenuation consistent with resolving focal fatty infiltration. A few scattered remaining hepatic hypodensities measure 12 mm in diameter or less and are too small to characterize. Gallbladder and bile ducts: The gallbladder is again not visualized most likely representing cholecystectomy. No biliary ductal dilatation. No obstruction or pericholecystic fat stranding demonstrated. Pancreas: Fatty atrophy of pancreas. No pancreatic mass. Spleen: 6 mm splenule near anterior tip of spleen unchanged. The spleen is otherwise unremarkable. Adrenals: Normal. No mass. Kidneys and ureters: No renal calculus or hydronephrosis on either side. Stomach and bowel: Diffuse colonic wall thickening is similar but less pronounced than the comparison study. This consists largely of submucosal fat which is typical for chronic colitis. Appendix: Appendix not visualized. No evidence of appendicitis. Intraperitoneal space: Unremarkable. No free air. No significant fluid collection. Vasculature: Coronary vascular calcifications. There is aortic atherosclerosis without aneurysm. Lymph nodes: Unremarkable. No enlarged lymph nodes. Bladder: Urinary bladder moderately distended with no focal wall thickening. Reproductive: Unremarkable as visualized. Bones/joints: Compression deformity superior endplate of L1 unchanged. No acute fractures. Soft tissues: Unremarkable. IMPRESSION: 1. No acute intra-abdominal process seen with evidence of chronic colitis less pronounced than on the most recent comparison study. 2. Improved fatty infiltration of the liver. 3. Bibasilar interstitial and alveolar opacities poorly evaluated due to respiratory motion. This is consistent with progression of chronic interstitial lung disease or possibly superimposed pneumonia. 4. Sliding hiatal hernia. 5. Chronic L1 compression fracture. Exam(s) a CT:CT abdomen & pelvis wo EXAM: CT ABDOMEN PELVIS WO CLINICAL HISTORY: abdominal pain - no PO or IV contrast TECHNIQUE: The exam was performed according to the usual protocol. COMPARISON: CT ABDOMEN PELVIS WO from 03/12/2019 FINDINGS: There is patient motion artifact. This severely limits evaluation of the lung bases. There is again seen interstitial thickening in ground glass opacities in the lung bases. The findings are consistent with chronic interstitial disease. Acute superimposed pneumonia cannot be excluded. The lack of IV contrast does limit evaluation of the abdominal pelvic organs. There are a few tiny hypodense areas in the liver which are too small for further characterization. The patient is status post cholecystectomy. No biliary ductal dilatation is present. There is again seen marked atrophy of the pancreas. The spleen and adrenal glands are unremarkable. The kidneys show no evidence of obstructive uropathy or nephrolithiasis. Urinary bladder is intact and unremarkable. The reproductive organs are unremarkable as visualized. No evidence of an acute inflammatory or infectious process of the bowel is seen. No evidence of bowel obstruction. Changes are seen in the bowel wall. No evidence of an acute appendicitis. There is atherosclerosis of the abdominal aorta. No aneurysmal dilatation is seen. No evidence of abdominal or pelvic adenopathy, ascites or pneumoperitoneum is present. There is a stable old compression fracture deformity of L1. Degenerative changes are seen in the spine. IMPRESSION: 1. No acute abdominal or pelvic process. 2. Improved fatty infiltration of the liver. 3. Persistent bilateral basilar interstitial alveolar opacities. This likely is chronic. Superimposed pneumonia cannot be excluded. 4. Stable L1 compression fracture. Exam(s) PROCEDURE INFORMATION: Exam: XR Chest, 2 Views Exam date and time: 09/25/2019 5:15 PM Age: 69 years old Clinical history: Cough TECHNIQUE: Imaging protocol: XR of the chest Views: 2 views. COMPARISON: CR XR CHEST 2V PA LATERAL 03/20/2019 11:27 AM FINDINGS: Lungs: Increased interstitial lung markings suggesting edema, infection or fibrotic changes. Pleural space: Unremarkable. No pleural effusion. No pneumothorax. Heart/Mediastinum: Unremarkable. No cardiomegaly. Bones/joints: Diastases of the left a.c. joint.. IMPRESSION: Increased interstitial lung markings suggesting edema, infection or fibrotic changes. Labs on day of discharge: Labs from last 24 hours 09/30/19 09/30/19 09/26/19 09:45 09:45 07:50 WBC 9.05 RBC 4.75 Hgb 13.7 Hct 41.6 MCV 87.6 MCH 28.8 MCHC 32.9 RDW 15.3 H Plt Count 338 MPV 10.2 Immature Gran % 0.6 Neutrophils % 63.4 Lymphocytes % 23.1 Monocytes % 7.2 Eosinophils % 5.1 Basophils % 0.6 Absolute Neutrophils 5.75 Absolute Lymphocytes 2.09 Absolute Monocytes 0.65 Absolute Eosinophils 0.46 Absolute Basophils 0.05 Sodium 138 Potassium 3.9 D Chloride 100 Carbon Dioxide 29.5 Anion Gap 8.5 BUN 29 H Creatinine 1.07 H Estimated GFR/1.73 m2 51.00 Glucose 277 H D Calcium 8.9 Magnesium 1.8 NT-Pro-B Natriuret Pep 204 Ur Strep pneumoniae Ag Negative 09/26/19 08:14 Sputum Sputum Culture - Pending 09/26/19 08:14 Sputum Gram Stain - Pending Preliminary micro results at discharge 09/25/19 17:30 Blood Culture - Preliminary Blood NO GROWTH 96 HOURS 09/26/19 08:14 Sputum Culture - Pending Sputum Gram Stain - Pending [facility] Medical History Abdominal pain (Resolved) Acute gastroenteritis (Resolved 03/16/18) Acute kidney injury (nontraumatic) (Resolved) Acute pneumonitis (Inactive) Anxiety (Chronic 03/16/18) Asthma (Chronic) Asthma (Chronic) Back pain (Chronic) CHF (congestive heart failure) (Chronic) Chronic constipation (Chronic 03/16/18) Cognitive impairment (Chronic 03/16/18) Mild, w/Memory Loss Cubital tunnel syndrome (Resolved 03/16/18) Depressive disorder (Chronic) DKA (diabetic ketoacidoses) (Resolved) Dyspnea (Chronic 03/16/18) Edema (Chronic 03/16/18) Essential hypertension (Chronic 07/17/13) Gastroesophageal reflux disease without esophagitis (Chronic 03/16/18) History of shingles (Resolved 03/16/18) Hyperlipemia (Acute) Insulin dependent diabetes mellitus (Chronic) Internal derangement of right knee (Chronic) Interstitial lung disease (Chronic 03/16/18) Long-term use of high-risk medication (Chronic 03/16/18) Metabolic acidosis with normal anion gap and bicarbonate losses (Resolved) Migraine (Chronic 04/03/14) Neck pain (Chronic 03/16/18) 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 History of section (Inactive) Ligation of fallopian tube Thoracoscopic (R)Lung Bx (02/12/18) Family History Mother , aged 81 from dementia, per Elly Diabetes Essential hypertension CHF (congestive heart failure) Heart disease CHF/heart failure Dementia Father , aged 80 Diabetes Essential hypertension CAD (coronary artery disease) Heart disease [place] Hyperlipidemia Stroke Sister , aged 54 Diabetes Personal history of malignant neoplasm Lung Asthma Lung cancer Brother , of mesithelioma aged 62 Diabetes Essential hypertension Personal history of malignant neoplasm Lung, Prostate Hyperlipidemia Asthma Mesothelioma Brother , of PE following knee surgery age 69 Pulmonary embolus with infarction Daughter No problems noted. Son No problems noted. Social History Smoking/Tobacco Use Status: Never Alcohol Intake: never Details: monthly or less Drug use: Never Substance use type: does not use Adopted: No Caregiver/Support person: No Foster care: No Household members: none Housing: apartment Number of Children: 2 number of grandchildren: 5 Communication Needs: Hard of Hearing and Corrective Lenses Education Level: middle school Do you need help understanding health information?: Always current occupation: disabled Pets and animals: No What is your relationship status?: How often do you talk on the phone with friends or family?: twice per week How often do you get together with friends or relatives?: once per week Panel score (0-1 are the most socially isolated patients): 1 What type of physical activity do you participate in: none and sedentary lifestyle Duration: 15-30 minutes/day Frequency: daily Special devin needs: No Agree to transfusion: Yes Seatbelt use: always Drive intox or ride w/intox motorcycle delivery driver: No Water heater temp set <120 deg: Yes Working smoke detector in home: Yes Fire extinguisher in home: Yes Carbon monox detector in home: Yes Do you feel safe at home: Yes Do you feel safe in your relationship?: Yes Additional Social history: Grandson Jorge Luis used to live with her. His phone # is [phone]. Daughter Caridad lives in [place]. Son Himanshu lives in [facility], not as close to him. Gets together with brother Brian regularly who takes her shopping and goes for drives.
--- NOTE | 2019-09-30 21:04 | PDOC.CMDIS ---
LACE Index Scoring Tool - Questions: Length of Stay (in days): 4 - 6 Acuity (Admit via E.D.?): Yes Comorbidities: Diabetes w/o Complication, Congestive Heart Failure E.D. Visits: 4 - Answers: Total Score: 14 Risk of Readmission: High Risk Care Management Discharge Reason for Hospitalization: DKA, Pneumonia Discharge Plan: Elly will have new VNA orders upon discharge including RN (including DM2 oversight)/PT/OT (CM faxed referral to [facility]). As well, she will re-enroll in day services through [facility]: notification to Community based CM; Nellie Neal at [facility], and Walter at [facility] via phone. Elly will transport via private vehicle with her brother. Patient/Family Education Needs: Review of discharge instructions, and discharge plan. Services Needed at Discharge: Day Care ([facility]), DME Agency, Home Health Care Services (RN/PT/OT), Homemaking Services ([facility]), Transportation
[2019-10-02 12:25] LABS: Glucose 839 mg/dL (74-106)
--- NOTE | 2019-10-02 13:12 | PT.INDS ---
Date of service: 10/02/19 Time of Service: 13:12 PT Notes Visit Reasons: DKA,PNEUMONIA Inpatient Physical Therapy Discharge Summary Dates: 10/02/2019 Dates of Service: 09/27/2019 through 09/30/2019 This is a clinical summary of care provided on the duration of dates listed above. No charge was made in the completion of this documentation. Referring Doctor: Randi Dyer MD PT Orders: PT CONSULT: Limited ability. Eval and Treat Precautions: Standard. Fall risk. Activity as tolerated. Patient Profile/Admitting Diagnosis: Patient is 68-year-old female admitted through ED with chief complaint of generalized body malaise for the past week, nausea and vomitting for the past 4 days, fatigue, lightheadedness with standing, vomiting x 4 with DKA, due to poorly managed DM Type II. Patient is diagnosed with diabetic ketoacidosis with type 2 diabetes mellitus, and community-acquired pneumonia. PMHX: Past Medical History: Internal derangement of right knee (Acute) Back pain (Chronic) Asthma (Chronic) Osteoporosis (Chronic 03/16/18) Neck pain (Chronic 03/16/18) Migraine (Chronic 04/03/14) Long-term use of high-risk medication (Chronic 03/16/18) Interstitial lung disease (Chronic 03/16/18) History of shingles (Resolved 03/16/18) Gastroesophageal reflux disease without esophagitis (Chronic 03/16/18) Essential hypertension (Chronic 07/17/13) Edema (Chronic 03/16/18) Dyspnea (Chronic 03/16/18) Depressive disorder (Chronic) Cubital tunnel syndrome (Resolved 03/16/18) Cognitive impairment (Chronic 03/16/18) Chronic constipation (Chronic 03/16/18) Anxiety (Chronic 03/16/18) Acute gastroenteritis (Resolved 03/16/18) Umbilical hernia (Chronic) Type II diabetes mellitus, uncontrolled (Chronic) Total urinary incontinence (Chronic) Shoulder pain (Chronic) Post herpetic neuralgia (Chronic 03/16/18) Peripheral neuralgia (Chronic) 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 She states that she goes to [employer] daycare daily except for Wednesdays via [facility]. Brother provides assistance as needed with transportation and grocery shopping. She has three steps to get in to her house with rails on both sides. Equipment owned/DME: Wheelchair, FWW, Home O2 at 2L continuous via NC. Grab bars. Subjective: NT General Observation: NT Mental Status: NT Pain: NT ROM: Right Upper Extremity: Shoulder Flexion WFL. Shoulder abduction WFL. Elbow flexion WFL. Wrist flexion WFL. Functional opening and closing of hand WFL. Left Upper Extremity: Shoulder Flexion WFL. Shoulder abduction WFL. Elbow flexion WFL. Wrist flexion WFL. Functional opening and closing of hand WFL. Right Lower Extremity: Hip flexion WFL. Hip abduction WFL. Knee flexion WFL. Ankle dorsiflexion WFL. Ankle plantarflexion WFL. Left Lower Extremity: Hip flexion WFL. Hip abduction WFL. Knee flexion WFL. Ankle dorsiflexion WFL. Ankle plantarflexion WFL. Strength: Right Upper Extremity: Shoulder flexors 4/5. Shoulder abductors 4/5. Elbow flexors 4/5. Elbow extensors 4/5. Social Media Developer strong. Left Upper Extremity: Shoulder flexors 4/5. Shoulder abductors 4/5. Elbow flexors 4/5. Elbow extensors 4/5. Social Media Developer strong. Right Lower Extremity: Hip flexors 4/5. Hip abductors 4/5. Knee flexors 4/5. Knee extensors 4/5. Ankle dorsiflexors 4/5. Ankle plantarflexors 4/5. Left Lower Extremity: Hip flexors 4/5. Hip abductors 4/5. Knee flexors 4/5. Knee extensors 4/5. Ankle dorsiflexors 4/5. Ankle plantarflexors 4/5. Sensation: Intact to pain and pressure on BLE Bed Mobility/Transfers: Rolling independent Supine to sit independent Sit to supine independent Sit to stand independent Stand to sit independent Bed to chair independent Chair to bed independent Gait: Patient is able to tolerate all 100 feet +200 feet with seated rest x1 with mild breathlessness noted using FWW requiring CGA, oxygen supplement at 2 L/min saturating within 93-96% with patient reporting mild breathlessness that subsided with rest. Patient reports pain at 2-3/10 on the lateral side of knee after activity. Balance: Static Sitting: Good Dynamic Sitting: Good Static Standing: Fair Dynamic Standing: Fair Assessment: Patient is 68-year-old female admitted through ED with chief complaint of generalized body malaise for the past week, nausea, and vomiting for the past 4 days, fatigue, lightheadedness with standing, vomiting x 4 with DKA, due to poorly managed DM Type II. Patient is diagnosed with diabetic ketoacidosis with type 2 diabetes mellitus, and community-acquired pneumonia. Patient demonstrated significant improvement in functional mobility level during this episode of care. Patient continues to present with clinical signs and symptoms consistent with current/admitting diagnoses that have resulted to mobility limitations, gait instability, generalized weakness, and impairment of motor control as demonstrated by the following impairment level findings: 1. Decreased strength to B LE major muscle groups 2. Impaired standing balance 3. Impaired activity tolerance Impairments continue to contribute to the following functional limitations: 1. Inability to safely ambulate without assistive device and physical assistance 2. Increase completion time for mobility ADL performance 3. Increased fall risk 6. Inability to negotiate steps alone safely Goals: Goals X1 week 1. Supine-Sit independent MET 2. Sit-Supine independent MET 3. Sit-Stand independent MET 4. Stand-Sit independent MET 5. Bed-Chair independent MET 6. Chair-Bed independent MET 7. Independent with level surface ambulation for at least 200 feet using the FWW to enable patient to participate in all activities at adult day care MET 9. Independent with home exercise program NOT MET 10. Standing balance/tolerance Good NOT MET DISCHARGE RECOMMENDATIONS: Patient will benefit from home health PT services in order to progress mobility level using front wheeled walker, assess home safety, identify additional equipment needs, and establish a functional maintenance program that will increase ability of patient to remain at home. TREATMENT CODE/TIME: NC. Thank you very much for this referral. Iva Roldan PT, DPT, CLT [facility]
== END 2019-09-30 16:25 | disposition home or self-care (01) | DRG 637 ==
LOC: ER 20:04 → ICU 21:04 → MS 09-27 23:24 → ICU 10-03 13:27
PROVIDERS: Internal Medicine; Admitting Provider Internal Medicine; Emergency Provider Physician Assistant; PCP Family Medicine; Visit Provider Internal Medicine
DX: E11.10 Type 2 diabetes mellitus with ketoacidosis without coma (principal); J18.9 Pneumonia, unspecified organism; J96.11 Chronic respiratory failure with hypoxia; R10.84 Generalized abdominal pain; K59.00 Constipation, unspecified; E87.70 Fluid overload, unspecified; E11.65 Type 2 diabetes mellitus with hyperglycemia; Z91.14 Patient's other noncompliance with medication regimen; E87.6 Hypokalemia; I10 Essential (primary) hypertension; F43.10 Post-traumatic stress disorder, unspecified; J45.909 Unspecified asthma, uncomplicated; G30.9 Alzheimer's disease, unspecified; F02.80 Dementia in other diseases classified elsewhere, unspecified severity, without behavioral disturbance, psychotic disturbance, mood disturbance, and anxiety; Z79.4 Long term (current) use of insulin; Z71.3 Dietary counseling and surveillance
CPT/HCPCS: 36415; 36416; 80048; 80053; 82805; 82962; 83690; 86713; 87040; 87449; 94640; 96361; 96365; 96366; 97162; 97165; 97530; 97535; 99223; 99226; 99232; 99239; 99285; 99291; 71046; 74176; 76700; 81003; 81015; 83605; 83735; 83880; 84478; 84484; 85025; 87070; 87086; 87205; 87450; 87581; 94667; 99233; J0696; J1650; J1720; J1941; J2405; J3490; J7620

== ENCOUNTER 2019-11-13 02:22 | Outpatient (CLI) | payer OTHER, MEDICAID, SELFPAY ==
[2019-11-13] MEDS: Inhaler, Assist Device 1 EACH MC (08:32)
[2019-11-13] MEDS: Albuterol HFA 18 GM 200 PUFF INH IH (08:32)
--- NOTE | 2019-11-13 08:52 | PFT_ITS ---
PULMONARY FUNCTION TEST REPORT DATE OF SERVICE: November 13, 2019 REQUESTING PROVIDER: Mone Santiago M.D. Spirometry shows no evidence of obstructive airways disease, no bronchodilator response. Lung volumes show mild restriction. Diffusion capacity severely reduced, which is mildly reduced when corrected to alveolar volume. Airways resistance normal. IMPRESSION: Mild restrictive lung disease associated with severe diffusion defect. Clinical correlation recommended. MARY/evelyne D/
== END 2019-11-13 02:42 ==
PROVIDERS: PCP Family Medicine; Visit Provider Internal Medicine
DX: J84.9 Interstitial pulmonary disease, unspecified (principal)
CPT/HCPCS: 94060; 94150; 94726; 94729

== ENCOUNTER 2019-11-13 13:19 | Outpatient (CLI) | payer OTHER, MEDICAID, SELFPAY ==
[2019-11-13 13:39] LABS: Abs Immature Grans 0.02 k/cumm (0.0-0.09); Absolute Basophil Count 0.05 k/cumm (0.0-0.2); Absolute Eosinophil Count 0.33 k/cumm (0.0-0.7); Absolute Lymphocyte Count 1.98 k/cumm (1.2-3.4); Absolute Monocyte Count 0.53 k/cumm (0.11-0.7); Absolute Neutrophil Count 7.34 k/cumm (1.2-6.7); Basophils % 0.5; Eosinophils % 3.2; HCT 40.3 % (36.0-46.0); Immature Grans % 0.2 %; Lymphocytes % 19.3; Mean Corp. HGB Concentration 32.3 g/dL (32.0-36.0); Mean Corpuscular Hemoglobin 28.3 pg (27.0-33.0); Mean Corpuscular Volume 87.8 fL (80-95); Mean Platelet Volume 9.7 fL (8.0-11.0); Monocytes % 5.2; Neutrophils % 71.6; Platelet Count 391 x1000/uL (130-400); RBC 4.59 m/cumm (4.00-5.20); RBC Distribution Width 14.4 % (11.7-14.6); White Blood Cell Count 10.25 k/cumm (4.4-10.8)
[2019-11-13 14:18] LABS: ALT 12 U/L (14-59); AST 13 U/L (15-37); Albumin 3.5 g/dL (3.4-5.0); Alkaline Phosphatase 121 U/L (46-116); Bilirubin, Direct 0.15 mg/dL (0.00-0.20); Bilirubin, Total 0.4 mg/dL (0.2-1.0); Total Protein 6.6 g/dL (6.4-8.2)
== END 2019-11-13 13:39 ==
PROVIDERS: PCP Family Medicine; Visit Provider Internal Medicine
DX: J84.9 Interstitial pulmonary disease, unspecified (principal); Z79.899 Other long term (current) drug therapy
CPT/HCPCS: 36415; 80076; 85025

== ENCOUNTER 2019-11-27 02:19 | Outpatient (CLI) | payer OTHER, MEDICAID, SELFPAY ==
--- NOTE | 2019-11-27 15:00 | DI.CT_ITS ---
EXAM: CT CHEST WO CLINICAL HISTORY: INTERSTITIAL LUNG DISEASE J84.9. TECHNIQUE: Imaging protocol: Axial computed tomography images were obtained and coronal and sagittal reformatted images were created and reviewed. COMPARISON: CT CHEST WO from 02/07/2019 FINDINGS: Tracheobronchial tree: Patent where visualized. Mediastinum and Martha: No dominant adenopathy or fluid collection. Pulmonary parenchyma: Stable interstitial disease and bronchiectasis. No consolidating infiltrates. Pleura: No effusion or pneumothorax. Heart: The heart is not dilated. Mild coronary artery calcification. No pericardial effusion. Aorta: Thoracic aorta non-dilated. Atherosclerosis. Upper abdomen: Small hiatal hernia. Lymph nodes: Within normal limits. Bones:Degenerative changes. There is patient motion artifact. IMPRESSION: Stable interstitial disease. DATA REPOSITORY: All CT scans at this facility are submitted to the National Radiology Data Registry (NRDR) Dose Index Registry (DIR) with the [employer] ([employer]). RADIATION OPTIMIZATION: All CT scans at this facility use at least one of these dose optimization te chniques: automated exposure control; mA and/or kV adjustment per patient size (includes targeted exa ms where dose is matched to clinical indication); or iterative reconstruction.
== END 2019-11-27 02:39 ==
PROVIDERS: PCP Family Medicine; Visit Provider Internal Medicine
DX: J84.9 Interstitial pulmonary disease, unspecified (principal); K44.9 Diaphragmatic hernia without obstruction or gangrene; J47.9 Bronchiectasis, uncomplicated
CPT/HCPCS: 71250

== ENCOUNTER 2020-02-19 03:39 | Outpatient (CLI) | payer OTHER, MEDICAID, SELFPAY ==
[2020-02-19 09:44] LABS: Abs Immature Grans 0.02 k/cumm (0.0-0.09); Absolute Basophil Count 0.02 k/cumm (0.0-0.2); Absolute Eosinophil Count 0.38 k/cumm (0.0-0.7); Absolute Lymphocyte Count 3.17 k/cumm (1.2-3.4); Absolute Monocyte Count 0.61 k/cumm (0.11-0.7); Absolute Neutrophil Count 5.52 k/cumm (1.2-6.7); Basophils % 0.2; Eosinophils % 3.9; HCT 44.3 % (36.0-46.0); HGB 14.2 g/dL (12.0-15.5); Immature Grans % 0.2 %; Lymphocytes % 32.6; Mean Corp. HGB Concentration 32.1 g/dL (32.0-36.0); Mean Corpuscular Hemoglobin 28.5 pg (27.0-33.0); Monocytes % 6.3; Neutrophils % 56.8; Platelet Count 338 x1000/uL (130-400); RBC 4.98 m/cumm (4.00-5.20); RBC Distribution Width 16.7 % (11.7-14.6); White Blood Cell Count 9.72 k/cumm (4.4-10.8)
[2020-02-19 10:00] LABS: Anion Gap 12.4 mmol/L (3-11); BUN 18 mg/dL (7-18); CO2 24.6 mmol/L (21.0-32.0); Calcium 9.5 mg/dL (8.5-10.1); Chloride 104 mmol/L (98-107); Estimated GFR 40.73 (mL/min/1.73m2); Glucose 217 mg/dL (74-106); Potassium 4.3 mmol/L (3.5-5.1); Sodium 141 mmol/L (136-145)
== END 2020-02-19 03:59 ==
PROVIDERS: PCP Family Medicine; Visit Provider Internal Medicine
DX: J84.9 Interstitial pulmonary disease, unspecified (principal); E11.10 Type 2 diabetes mellitus with ketoacidosis without coma
CPT/HCPCS: 36415; 80048; 85025

== ENCOUNTER 2020-02-27 01:45 | Outpatient (CLI) | payer OTHER, MEDICAID, SELFPAY ==
--- NOTE | 2020-02-27 | DI.CT_ITS ---
EXAM: CT CHEST HIGH RESOLUTION CLINICAL HISTORY: INTERSTITIAL PULMONARY DISEASE, J84.9,RE-EVALUATION. TECHNIQUE: Imaging protocol: Axial computed tomography images were obtained and coronal and sagittal reformatted images were created and reviewed. COMPARISON: CR XR CHEST 2V PA LATERAL from 09/30/[address] CHEST WO from 11/27/2019 FINDINGS: The exam is extremely limited by respiratory motion. Patient could not follow breathing instructions and coughed on inspiration. Tracheobronchial tree: Mild traction bronchiectasis.. Mediastinum and Martha: No dominant adenopathy or fluid collection. Pulmonary parenchyma: No consolidation or dominant measurable mass. Low lung volumes. Increased int erstitial markings greater peripherally greater in the right upper and lower lobes.. Pleura: No effusion or pneumothorax. Heart: The heart is not dilated. Mild coronary artery calcifications are seen. Aorta: Thoracic aorta non-dilated. Mild calcification. Pulmonary arteries: Dilated main pulmonary artery, 3.4 cm. Prominent right and left pulmonary arteri es Upper abdomen: Unremarkable. Lymph nodes: Within normal limits. Bones:Degenerative changes in the thoracic spine. IMPRESSION: Severely limited exam due to respiratory motion. Chronic interstitial changes and mild traction bron chiectasis. No gross evidence of a focal area consolidation.. RADIATION DOSE DELIVERED: Total DLP DATA REPOSITORY: All CT scans at this facility are submitted to the National Radiology Data Registry (NRDR) Dose Index Registry (DIR) with the [employer] (ACR). RADIATION OPTIMIZATION: All CT scans at this facility use at least one of these dose optimization te chniques: automated exposure control; mA and/or kV adjustment per patient size (includes targeted exa ms where dose is matched to clinical indication); or iterative reconstruction.
== END 2020-02-27 02:05 ==
PROVIDERS: PCP Family Medicine; Visit Provider Internal Medicine
DX: J84.89 Other specified interstitial pulmonary diseases (principal); J47.9 Bronchiectasis, uncomplicated
CPT/HCPCS: 71250

== ENCOUNTER 2020-06-12 13:36 | Emergency (ER) | payer OTHER, MEDICAID, SELFPAY ==
[2020-06-12 13:50] VITALS: BP 118/88; PULSE 106; RESP 18; TEMP 36.1; O2SAT 97
--- NOTE | 2020-06-12 14:00 | RT.EKG_ITS ---
APPROVED REPORT Exam: Resting ECG Patient Location: E HR:102 bpm ECG Measurements Heart Rate 102 AXIS IN 155 P 32 QRSd 98 QRS -24 QT 350 T 113 QTc 455 Conclusion Sinus tachycardia...rate> 99 LVH with secondary repolarization abnormality...multi-LVH criteria, abnrm ST-T
--- NOTE | 2020-06-12 14:03 | ED.GENADUL_ITS ---
Discharge Plan Disposition Patient Disposition: HOME Condition: Stable Discharge Details Chief Complaint: Nausea/Vomit/Diar Clinical Impression: Pneumonia, Abdominal pain, Diarrhea Clinical Impression: (Ruled Out): Dyspnea Primary Care Provider: Mario Garcia ED Provider: Tre Goff Home Meds and New Rx's Prescriptions: New doxycycline hyclate 100 mg capsule 100 mg PO BID Qty: 20 RF: 0 promethazine 12.5 mg tablet 12.5 mg PO TID PRNQty: 10 RF: 0 Continued albuterol sulfate 2.5 mg /3 mL (0.083 %) solution for nebulization 2.5 mg Inhalation Q6H PRN (Reason: shortness of breath or wheezing) Qty: 10 RF: 6 (DME) Wheeled walker with seat and basket Qty: 1 RF: 0 metoclopramide HCl 10 mg tablet 10 mg PO Q6H PRNRF: 0 sucralfate 1 gram tablet 1 gm PO QACHS RF: 0 Januvia 25 mg tablet 25 mg PO QAM Qty: 90 RF: 3 budesonide-formoterol [Symbicort] 160-4.5 mcg/actuation HFA aerosol inhaler 2 puff IH BID RF: 0 clotrimazole 1 % cream 1 applic topical TID Qty: 113 RF: 6 Tresiba FlexTouch U-200 200 unit/mL (3 mL) insulin pen See Rx Instructions SC QHS Qty: 12 RF: 12 (DME) compress.stocking,knee,reg,lrg misc See Dose Instructions .ROUTE .MEDSUPPLY Qty: 2 RF: 0 donepezil 5 mg tablet,disintegrating 5 mg PO DAILY Qty: 30 RF: 11 Shingrix (PF) 50 mcg/0.5 mL suspension for reconstitution 50 mcg IM ONCE Qty: 1 RF: 1 (DME) pen needle, diabetic [Pen Needle] 31 gauge x 5/16 needle 1 ea Miscellaneous QID Qty: 4 RF: 12 albuterol sulfate [Ventolin HFA] 8 GM HFA aerosol inhaler 2 puff Inhalation Q4H PRN Qty: 1 RF: 4 (DME) Oxygen Tank See Dose Instructions .ROUTE .MEDSUPPLY Qty: 1 RF: 0 (DME) Face mask to deliver Oxygen Qty: 2 RF: 6 acidophilus-pectin, citrus 25 million cell -100 mg tablet 1 tab PO TID Qty: 90 RF: 6 cyclobenzaprine 5 mg tablet 5 mg PO TID PRN (Reason: muscle spasm) Qty: 90 RF: 6 (DME) lancets 28 gauge misc 1 ea Miscellaneous TID Qty: 400 RF: 12 benzonatate [Tessalon Perles] 100 mg capsule 100 mg PO BID-TID PRN (Reason: cough) Qty: 90 RF: 3 furosemide 40 mg tablet 40 mg PO DAILY Qty: 30 RF: 3 nystatin 100,000 unit/gram powder 1 applic TP TID Qty: 60 RF: 0 Ofev 150 mg capsule 150 mg PO Q12H PRNRF: 0 Stiolto Respimat 2.5-2.5 mcg/actuation mist 2 puff IH DAILY RF: 0 (DME) Oxygen Tank See Rx Instructions .ROUTE .MEDSUPPLY Qty: 1 RF: 0 Blister gordon package See Rx Instructions PO RF: 0 insulin lispro [Humalog KwikPen Insulin] 100 unit/mL insulin pen See Rx Instructions SC .per ss Qty: 15 RF: 3 Breo Ellipta 200-25 mcg/dose blister with device 1 inh IH DAILY PRNRF: 0 simvastatin 40 mg tablet 40 mg PO HS Qty: 30 RF: 11 spironolactone 25 mg tablet 25 mg PO DAILY Qty: 30 RF: 11 escitalopram oxalate 10 mg tablet 10 mg PO .NOON Qty: 30 RF: 11 Jardiance 10 mg tablet 10 mg PO QAM Qty: 30 RF: 11 pantoprazole 40 mg tablet,delayed release (DR/EC) 40 mg PO DAILY Qty: 90 RF: 3 epinephrine [EpiPen 2-Gordon] 0.3 MG/0.3 ML auto-injector 0.3 mg IM ONCE PRNRF: 0 ketoconazole 2 % Cream 1 applic topical BID Qty: 30 RF: 0 zinc oxide 20 % Ointment 60 g topical PRN PRNQty: 0 RF: 0 vits A and D-white pet-lanolin Ointment 60 g topical PRN PRNQty: 0 RF: 0 No Action (DME) Blood Glucose Test Strip 1 ea Miscellaneous TID Qty: 400 RF: 12 Discharge Instructions Instructions: Acute Diarrhea (ED), Abdominal Pain (ED), Pneumonia (ED) Additional Instructions: Doxycycline and Phenergan as directed. Plenty of fluids to avoid dehydration. [id number] Imodium as directed symptomatic control. I will provide you with an outpatient stool sample container and order, bring back to the lab at your convenience. Please watch for new or worsening symptoms and return to the ER for any concerns. Please contact your primary care provider on Monday for prompt outpatient reevaluation Discharge Data Discharge Date/Time-TO BE ENTERED AT DEPARTURE: 06/12/20 19:30 Medical Decision Making <PILI Arias - Last Filed: 06/18/20 21:56> Patient is a pleasant 69-year-old female presenting to complaint nausea, vomiting and diarrhea (2 weeks ago. States she had 5 episodes of nausea and vomiting today as well as 5 loose stools. Denies any, melena, dysuria. She has been having sharp abdominal discomfort. Indicates the right side of the abdomen is area of discomfort. Quadrant. She denies any recent travel. No recent camping. No known sick contacts. No known for fluid intake. Past surgical history pertinent for cholecystectomy, appendectomy, hysterectomy with bilateral oophorectomy. On exam, patient appears nontoxic. She does appear dehydrated. She is tachycardic with a heart rate of 106. Otherwise hemodynamically stable. Lungs are clear, no evidence to suggest fluid overload. Patient does have history of CHF. No lower extremity edema. Abdomen is significant for tenderness in the left upper quadrant but no guarding, rebound tenderness or other suggestions of peritoneal findings. Labs reviewed. Patient does look slightly concentrated with elevated WBC, hemoglobin and hematocrit. WBC 12.5. CMP significant for elevated anion gap of 14.3. Creatinine is bumped at 1.55, patient's baseline is around 1.2. She does have an elevated BUN of 22. Glucose 224, this is baseline for the patient. Patient is receiving her first bag fluids. Had initially reported improvement with IV ondansetron. Is now reporting that this is insufficient and she is beginning to feel nauseated again. We will augment this with Phenergan. The patient was endorsing left upper quadrant discomfort and has had this persistent nausea, vomiting and diarrhea plan to move forward with CT imaging. She does not have any findings to suggest acute surgical abdomen. However, the patient is a poor historian. At the end of shift, care transition to Chon Goff PA-C with CT and reassessment pending. <PILI Ford - Last Filed: 06/12/20 21:34> This is a 69-year-old female who was signed out to me by my colleague PILI Finch at shift change. Patient is presenting with abdominal pain, cramping, diarrhea for the past 2 weeks, please see her note for full HPI. At this time laboratory values are resulted, now awaiting reevaluation and CT imaging. At shift change patient is resting comfortably, Phenergan has recently been given, and she reports that her nausea has resolved completely secondary to the Phenergan. Denies any abdominal pain whatsoever. She is resting in room to a comfortably. No acute distress. Most mucous membranes, heart regular rate and rhythm, lungs clear to auscultation although slight diminished at the bases. Abdomen is soft, nontender, bowel sounds equal throughout. Patient received a second liter of IV fluid and I will repeat her CBC and BMP to evaluate her hydration status and to see if her anion gap closes. Labs are much improved. CT imaging of abdomen without contrast was read by radiology as bilateral i nfiltrates with chronic interstitial lung disease. Bilateral pleural thickening. No acute intra-abdominal or pelvic process. I did discuss her repeat laboratory values and CT imaging with the patient and her granddaughter. Patient does report that she has had may be a mild cough recently. We discussed our options. She reports that she feels well enough and would prefer to be discharged home as opposed to needing inpatient therapy. I will place her on p.o. doxycycline and give her a prescription for Phenergan as that is seemed to help more than the Zofran. She was encouraged to return to the ER for new or worsening symptoms, otherwise recheck her primary care provider on Monday for prompt outpatient reevaluation. Patient and granddaughter were comfortable with this plan and had no additional questions or concerns upon discharge. Medical Records Medical records reviewed: Yes I reviewed the patient's medical records. Lab Data Lab results reviewed: Yes I reviewed the patient's lab results. Lab results narrative: Laboratory Tests Range/Units 06/12/20 06/12/20 06/12/20 14:15 14:15 14:25 WBC (4.4-10.8) 10^3/uL 12.75 H RBC (3.93-5.22) 10^6/uL 5.51 H Hgb (11.2-15.7) g/dL 16.5 H Hct (36.0-46.0) % 50.7 H MCV (80-95) fL 92.0 MCH (27.0-33.0) pg 29.9 MCHC (32.0-36.0) % 32.5 RDW (11.7-14.6) % 14.2 Plt Count (130-400) 10^3/uL 345 MPV (8.0-11.0) fL 10.0 Immature Gran % 0.3 Neutrophils % 74.2 Lymphocytes % 16.9 Monocytes % 6.1 Eosinophils % 2.1 Basophils % 0.4 Nucleated RBC % % 0 Absolute Neutrophils (1.2-6.7) 10^3/uL 9.46 H Absolute Lymphocytes (1.2-3.4) 10^3/uL 2.15 Absolute Monocytes (0.1-0.8) 10^3/uL 0.78 Absolute Eosinophils (0.0-0.7) 10^3/uL 0.27 Absolute Basophils (0.0-0.2) 10^3/uL 0.05 Sodium (136-145) mmol/L 137 Potassium (3.5-5.1) mmol/L 4.3 Chloride (98-107) mmol/L 96 L Carbon Dioxide (21.0-32.0) mmol/L 26.7 Anion Gap (3-11) mmol/L 14.3 H BUN (7-18) mg/dL 22 H Creatinine (0.55-1.02) mg/dL 1.55 H Estimated GFR/1.73 m2 (mL/min/1.73m2) 33.25 Glucose (74-106) mg/dL 224 H Calcium (8.5-10.1) mg/dL 9.8 Magnesium (1.8-2.4) mg/dL 2.3 Total Bilirubin (0.2-1.0) mg/dL 1.1 H AST (15-37) U/L 41 H ALT (14-59) U/L 38 Alkaline Phosphatase (46-116) U/L 127 H Total Protein (6.4-8.2) g/dL 8.6 H Albumin (3.4-5.0) g/dL 4.1 Lipase (73-393) U/L 62 Range/Units 06/12/20 06/12/20 18:05 18:15 WBC (4.4-10.8) 10^3/uL 9.01 RBC (3.93-5.22) 10^6/uL 4.62 Hgb (11.2-15.7) g/dL 13.9 D Hct (36.0-46.0) % 42.9 MCV (80-95) fL 92.9 MCH (27.0-33.0) pg 30.1 MCHC (32.0-36.0) % 32.4 RDW (11.7-14.6) % 14.2 Plt Count (130-400) 10^3/uL 266 MPV (8.0-11.0) fL 9.7 Immature Gran % 0.2 Neutrophils % 69.0 Lymphocytes % 22.3 Monocytes % 6.8 Eosinophils % 1.4 Basophils % 0.3 Nucleated RBC % % 0 Absolute Neutrophils (1.2-6.7) 10^3/uL 6.21 Absolute Lymphocytes (1.2-3.4) 10^3/uL 2.01 Absolute Monocytes (0.1-0.8) 10^3/uL 0.61 Absolute Eosinophils (0.0-0.7) 10^3/uL 0.13 Absolute Basophils (0.0-0.2) 10^3/uL 0.03 Sodium (136-145) mmol/L 140 Potassium (3.5-5.1) mmol/L 4.2 Chloride (98-107) mmol/L 104 Carbon Dioxide (21.0-32.0) mmol/L 29.0 Anion Gap (3-11) mmol/L 7.0 BUN (7-18) mg/dL 19 H Creatinine (0.55-1.02) mg/dL 1.10 H Estimated GFR/1.73 m2 (mL/min/1.73m2) 49.39 Glucose (74-106) mg/dL 118 H D Calcium (8.5-10.1) mg/dL 8.5 Magnesium (1.8-2.4) mg/dL Total Bilirubin (0.2-1.0) mg/dL AST (15-37) U/L ALT (14-59) U/L Alkaline Phosphatase (46-116) U/L Total Protein (6.4-8.2) g/dL Albumin (3.4-5.0) g/dL Lipase (73-393) U/L HPI <PILI Arias - Last Filed: 06/18/20 21:56> General Mode of arrival: ambulatory . Date/Time Provider Initiated Documentation: 06/12/20 14:02 . Limitations to Documentation: no limitations . Information obtained by: patient and RN notes reviewed . History of Present Illness 69 year old F presents to the emergency department with the chief complaint of abdominal discomfort, N/V/D, described as mild, with intensity rated at 2. Quality is described as aching, and is localized to the abdomen. Patient reports no radiation. Patient started experiencing this week(s) (2) and it has been constant. No relieving factors improve symptom(s), No exacerbating factors reported . Patient notes loss of appetite, malaise, nausea/vomiting and weakness (generalized weakness/fatigue); denies chest pain, cough, diaphoresis, fever/chills, headaches, rash and shortness of breath. Patient did receive the following treatments prior to arrival, none Related Data Home Medications Medication Instructions Recorded Confirmed albuterol sulfate [Ventolin HFA] 2 puff INHALATION Q4H PRN #1 10/09/14 06/12/20 inhaler compress.stocking,knee,reg,lrg #2 each 10/29/18 03/27/20 albuterol sulfate 2.5 mg INHALATION Q6H PRN #10 vial 11/09/18 06/12/20 Oxygen #1 each 11/29/18 03/27/20 ketoconazole 1 applic TOPICAL BID #30 gm 01/31/19 06/12/20 Wheeled walker with seat and basket #1 ea 02/07/19 03/27/20 vits A and D-white pet-lanolin 60 g TOPICAL PRN PRN #0 g 03/20/19 06/12/20 zinc oxide 60 g TOPICAL PRN PRN #0 g 03/20/19 06/12/20 Face mask to deliver Oxygen #2 each 04/23/19 03/27/20 acidophilus 25 million 1 tab PO TID #90 tab 05/07/19 06/12/20 cell-pectin, citrus 100 mg tablet cyclobenzaprine 5 mg tablet 5 mg PO TID PRN #90 tab 05/07/19 06/12/20 lancets 28 gauge #400 ea 05/17/19 03/27/20 benzonatate 100 mg capsule 100 mg PO BID-TID PRN #90 cap 06/06/19 06/12/20 furosemide 40 mg tablet 40 mg PO DAILY #30 tab 06/20/19 06/12/20 donepezil 5 mg disintegrating 5 mg PO DAILY #30 tab-cap 07/16/19 06/12/20 tablet varicella-zoster gE-AS01B (PF) 50 50 mcg IM ONCE #1 each 07/16/19 06/12/20 mcg/0.5 mL IM susp, kit nystatin 100,000 unit/gram topical 1 applic TP TID #60 gm 08/01/19 06/12/20 powder pen needle, diabetic 31 gauge x #4 box 10/11/19 03/27/2003/07 Oxygen #1 each 11/08/19 03/27/20 nintedanib 150 mg capsule 150 mg PO Q12H PRN 11/08/19 06/12/20 tiotropium 2.5 mcg-olodaterol 2.5 2 puff IH DAILY 11/08/19 06/12/20 mcg/actuation mist for inhalation metoclopramide HCl 10 mg tablet 10 mg PO Q6H PRN 11/11/19 06/12/20 sitagliptin 25 mg tablet 25 mg PO QAM #90 tab 11/11/19 06/12/20 sucralfate 1 gram tablet 1 gm PO QACHS 11/11/19 06/12/20 budesonide-formoterol HFA 160 2 puff IH BID 12/27/19 06/12/20 mcg-4.5 mcg/actuation aerosol inhaler clotrimazole 1 % topical cream 1 applic TOPICAL TID #113 gm 12/27/19 06/12/20 Blister gordon See Rx Instructions PO 01/20/20 03/27/20 insulin lispro 100 unit/mL See Rx Instructions SC .per ss #15 01/20/20 06/12/20 subcutaneous pen ml fluticasone furoate 200 1 inh IH DAILY PRN 02/14/20 06/12/20 mcg-vilanterol 25 mcg/dose inhalation powder escitalopram oxalate 10 mg tablet 10 mg PO .NOON #30 tab-cap 03/09/20 06/12/20 simvastatin 40 mg tablet 40 mg PO HS #30 tab 03/09/20 06/12/20 spironolactone 25 mg tablet 25 mg PO DAILY #30 tab 03/09/20 06/12/20 empagliflozin 10 mg tablet 10 mg PO QAM #30 tab 03/10/20 06/12/20 insulin degludec 200 unit/mL (3 See Rx Instructions SC QHS #12 ml 03/27/20 06/12/20 mL) subcutaneous pen pantoprazole 40 mg tablet,delayed 40 mg PO DAILY #90 tab 04/03/20 06/12/20 release doxycycline hyclate 100 mg PO BID #20 cap 06/12/20 epinephrine [EpiPen 2-Gordon] 0.3 mg IM ONCE PRN 06/12/20 06/12/20 promethazine 12.5 mg PO TID PRN #10 tab 06/12/20 blood sugar diagnostic #400 strip 06/15/20 Previous Rx's Medication Instructions Recorded compress.stocking,knee,reg,lrg #2 each 10/29/18 albuterol sulfate 2.5 mg INHALATION Q6H PRN #10 vial 11/09/18 ketoconazole 1 applic TOPICAL BID #30 gm 01/31/19 Wheeled walker with seat and basket #1 ea 02/07/19 vits A and D-white pet-lanolin 60 g TOPICAL PRN PRN #0 g 03/20/19 zinc oxide 60 g TOPICAL PRN PRN #0 g 03/20/19 Face mask to deliver Oxygen #2 each 04/23/19 acidophilus 25 million 1 tab PO TID #90 tab 05/07/19 cell-pectin, citrus 100 mg tablet cyclobenzaprine 5 mg tablet 5 mg PO TID PRN #90 tab 05/07/19 lancets 28 gauge #400 ea 05/17/19 benzonatate 100 mg capsule 100 mg PO BID-TID PRN #90 cap 06/06/19 furosemide 40 mg tablet 40 mg PO DAILY #30 tab 06/20/19 donepezil 5 mg disintegrating 5 mg PO DAILY #30 tab-cap 07/16/19 tablet varicella-zoster [id number] (PF) 50 50 mcg IM ONCE #1 each 07/16/19 mcg/0.5 mL IM susp, kit nystatin 100,000 unit/gram topical 1 applic TP TID #60 gm 08/01/19 powder pen needle, diabetic 31 gauge x #4 box 10/11/19/ sitagliptin 25 mg tablet 25 mg PO QAM #90 tab 11/11/19 clotrimazole 1 % topical cream 1 applic TOPICAL TID #113 gm 12/27/19 insulin lispro 100 unit/mL See Rx Instructions SC .per ss #15 01/20/20 subcutaneous pen ml escitalopram oxalate 10 mg tablet 10 mg PO .NOON #30 tab-cap 03/09/20 simvastatin 40 mg tablet 40 mg PO HS #30 tab 03/09/20 spironolactone 25 mg tablet 25 mg PO DAILY #30 tab 03/09/20 empagliflozin 10 mg tablet 10 mg PO QAM #30 tab 03/10/20 insulin degludec 200 unit/mL (3 See Rx Instructions SC QHS #12 ml 03/27/20 mL) subcutaneous pen pantoprazole 40 mg tablet,delayed 40 mg PO DAILY #90 tab 04/03/20 release doxycycline hyclate 100 mg PO BID #20 cap 06/12/20 promethazine 12.5 mg PO TID PRN #10 tab 06/12/20 blood sugar diagnostic #400 strip 06/15/20 Allergies Allergy/AdvReac Type Severity Reaction Status Date / Time aspirin Allergy Unknown HIVES, Verified 06/12/20 14:22 flip out diclofenac Allergy Unknown RASH Verified 06/12/20 14:22 latex Allergy Unknown SKIN Verified 06/12/20 14:22 BREAKDOWN NSAIDS (Non-Steroidal Allergy Unknown HIVES, Verified 06/12/20 14:22 Anti-Inflamma VOMITING morphine AdvReac Unknown VOMITING Verified 06/12/20 14:22 General Stated Complaint: Nausea/Vomit/Diar ALVIN: 3 Review of Systems <PILI Arias - Last Filed: 06/18/20 21:56> Constitutional Constitutional: Reports as per HPI, Denies chills, Denies fatigue, Denies fever(s) and Denies headache(s) ENT Ears, Nose, Mouth, and Throat: Denies headache(s) Cardiovascular Cardiovascular: Reports as per HPI, Denies chest pain and Denies dyspnea Respiratory Respiratory: Reports as per HPI, Denies cough and Denies dyspnea Gastrointestinal Gastrointestinal: Reports as per HPI Musculoskeletal Musculoskeletal: Reports as per HPI and Denies back pain Integumentary/Breasts Skin/Breast: Reports as per HPI and Denies rash Neurologic Neurologic: Reports as per HPI and Denies headache(s) Endocrine Endocrine: Denies fatigue PFSH <PILI Arias - Last Filed: 06/18/20 21:56> Medical History (Updated 06/12/20 @ 19:19 by PLII Ford) Abdominal pain (Resolved) Acute gastroenteritis (Resolved 03/16/18) Acute kidney injury (nontraumatic) (Resolved) Acute pneumonitis (Inactive) Anxiety (Chronic 03/16/18) Asthma (Chronic) Asthma (Chronic) Back pain (Chronic) CHF (congestive heart failure) (Chronic) Chronic constipation (Chronic 03/16/18) Cognitive impairment (Chronic 03/16/18) Mild, w/Memory Loss Cubital tunnel syndrome (Resolved 03/16/18) Depressive disorder (Chronic) DKA (diabetic ketoacidoses) (Resolved) Dyspnea (Chronic 03/16/18) Edema (Chronic 03/16/18) Essential hypertension (Chronic 07/17/13) Gastroesophageal reflux disease without esophagitis (Chronic 03/16/18) History of shingles (Resolved 03/16/18) Hyperlipemia (Acute) Insulin dependent diabetes mellitus (Chronic) Internal derangement of right knee (Chronic) Interstitial lung disease (Chronic 03/16/18) Pulm: [place] Long-term use of high-risk medication (Chronic 03/16/18) Metabolic acidosis with normal anion gap and bicarbonate losses (Resolved) Migraine (Chronic 04/03/14) Neck pain (Chronic 03/16/18) 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 History of section (Inactive) Ligation of fallopian tube Thoracoscopic (R)Lung Bx (02/12/18) Family History Mother , aged 81 from dementia, per Elly Diabetes Essential hypertension CHF (congestive heart failure) Heart disease CHF/heart failure Dementia Father , aged 80 Diabetes Essential hypertension CAD (coronary artery disease) Heart disease [place] Hyperlipidemia Stroke Sister , aged 54 Diabetes Personal history of malignant neoplasm Lung Asthma Lung cancer Brother , of mesithelioma aged 62 Diabetes Essential hypertension Personal history of malignant neoplasm Lung, Prostate Hyperlipidemia Asthma Mesothelioma Brother , of PE following knee surgery age 69 Pulmonary embolus with infarction Daughter No problems noted. Son No problems noted. Social History (Updated 12/27/19 @ 15:03 by Teodora Roberto LPN) Smoking/Tobacco Use Status: Never Alcohol Intake: never Details: monthly or less Drug use: Never Substance use type: does not use Adopted: No Caregiver/Support person: No Foster care: No Household members: none Housing: apartment Number of Children: 2 number of grandchildren: 5 Communication Needs: Hard of Hearing and Corrective Lenses Education Level: middle school Do you need help understanding health information?: Always current occupation: disabled Pets and animals: No What is your relationship status?: How often do you talk on the phone with friends or family?: twice per week How often do you get together with friends or relatives?: once per week Panel score (0-1 are the most socially isolated patients): 1 What type of physical activity do you participate in: none and sedentary lifestyle Duration: 15-30 minutes/day Frequency: daily Special devin needs: No Agree to transfusion: Yes Seatbelt use: always Drive intox or ride w/intox marine engine driver: No Water heater temp set <120 deg: Yes Working smoke detector in home: Yes Fire extinguisher in home: Yes Carbon monox detector in home: Yes Do you feel safe at home: Yes Do you feel safe in your relationship?: Yes Additional Social history: Grandson Jorge Luis used to live with her. His phone # is [phone]. Daughter Caridad lives in [place]. Son Himanshu lives in [facility], not as close to him. Gets together with brother Brian regularly who takes her shopping and goes for drives. Exam <PILI Arias - Last Filed: 06/18/20 21:56> Const General: cooperative, healthy appearing, comfortable, no acute distress and well developed Nutritional Appearance: well nourished and obese Orientation: alert and awake [facility] Head: normal to inspection Mouth: mucous membranes dry (patient appears dry) Resp Effort & Inspection: normal respiratory effort, able to speak in complete sentences and no respiratory distress Auscultation: clear to auscultation bilaterally, no rales, no rhonchi and no wheezes Cardio Rate: tachycardic Rhythm: regular rhythm Heart Sounds: S1 normal and S2 normal GI Inspection: normal to inspection Palpation: soft, no hepatosplenomegaly, not firm, no guarding, no hepatomegaly, no hernias, no pulsatile masses and tender in the LUQ; Paulino's sign negative and with no rebound tenderness Percussion: normal to percussion Auscultation: normal bowel sounds Back/Spine/Pelvis Back: no CVA tenderness Skin General skin exam: no rashes or lesions noted Trauma: no lacerations or abrasions Neuro General: patient alert and patient awake Cognition: normal cognition Speech: speech normal Gait: normal gait Extrem General: normal to inspection and no pedal edema Psych Appearance: grossly normal and well kempt Mental Status: mental status grossly normal Speech and Movement: speech and movement normal Course <PILI Arias - Last Filed: 06/18/20 21:56> Vital Signs Vital signs: Vital Signs Temperature 36.1 C L 06/12/20 13:50 Pulse 106 H 06/12/20 13:50 Respiratory Rate 18 06/12/20 13:50 Blood Pressure 118/88 06/12/20 13:50 Pulse Oximetry 97 06/12/20 13:50 Temperature 36.1 C L 06/12/20 13:50 Pulse 106 H 06/12/20 13:50 Respiratory Rate 18 06/12/20 13:50 Respiratory Effort 06/12/20 13:54 Blood Pressure 118/88 06/12/20 13:50 Blood Pressure Position Sitting 06/12/20 13:50 Pulse Oximetry 97 06/12/20 13:50 Oxygen Delivery Method Room Air 06/12/20 13:50 Oxygen Flow Rate 0 06/12/20 13:50 Pain Level 2 06/12/20 13:50 Sign Out <PILI Arias - Last Filed: 06/18/20 21:56> Sign Out Data: Sign Out Comment: Care transitioned to Tre Goff PA-C with imaging and reassessment pending. Has received IV zofran, 1L LR. Just ordered Phenergan as she has persistent nausea. Last updated by Tsering Finch PA at 06/12/20 16:13
[2020-06-12] MEDS: Ondansetron 4 MG/2 ML VIAL IVP (14:20)
[2020-06-12] MEDS: Normal Saline Flush 10 ML SYR IVP (14:21)
[2020-06-12 14:25] LABS: Abs Immature Grans 0.04 10^3/uL (0.0-0.06); Absolute Basophil Count 0.05 10^3/uL (0.0-0.2); Absolute Eosinophil Count 0.27 10^3/uL (0.0-0.7); Absolute Lymphocyte Count 2.15 10^3/uL (1.2-3.4); Absolute Monocyte Count 0.78 10^3/uL (0.1-0.8); Absolute Neutrophil Count 9.46 10^3/uL (1.2-6.7); Basophils % 0.4; Eosinophils % 2.1; HCT 50.7 % (36.0-46.0); HGB 16.5 g/dL (11.2-15.7); Immature Grans % 0.3; Lymphocytes % 16.9; MCH 29.9 pg (27.0-33.0); MCHC 32.5 % (32.0-36.0); Monocytes % 6.1; Neutrophils % 74.2; Nucleated RBC 0 %; Platelet Count 345 10^3/uL (130-400); RBC 5.51 10^6/uL (3.93-5.22); RDW 14.2 % (11.7-14.6); RDW-SD 48.2 fL; WBC 12.75 10^3/uL (4.4-10.8)
[2020-06-12 14:39] LABS: ALT 38 U/L (14-59); AST 41 U/L (15-37); Albumin 4.1 g/dL (3.4-5.0); Alkaline Phosphatase 127 U/L (46-116); Anion Gap 14.3 mmol/L (3-11); BUN 22 mg/dL (7-18); Bilirubin, Total 1.1 mg/dL (0.2-1.0); CO2 26.7 mmol/L (21.0-32.0); CREATININE 1.55 mg/dL (0.55-1.02); Calcium 9.8 mg/dL (8.5-10.1); Chloride 96 mmol/L (98-107); Estimated GFR 33.25 (mL/min/1.73m2); Glucose 224 mg/dL (74-106); Magnesium 2.3 mg/dL (1.8-2.4); Potassium 4.3 mmol/L (3.5-5.1); Sodium 137 mmol/L (136-145); Total Protein 8.6 g/dL (6.4-8.2)
[2020-06-12 15:03] VITALS: BP 130/74; PULSE 91; O2SAT 94
[2020-06-12] MEDS: Lactated Ringers 1,000 ML 1000 ML IV (15:05)
[2020-06-12 15:12] LABS: Lipase 62 U/L (73-393)
--- NOTE | 2020-06-12 16:07 | DI.CT_ITS ---
EXAM: CT ABDOMEN PELVIS WO CLINICAL HISTORY: LUQ pain, N/V/D x 2 weeks TECHNIQUE: COMPARISON: CT CT ABDOMEN PELVIS WO from 09/26/2019 FINDINGS: CT examination of the abdomen and pelvis was performed without contrast administration Images obtained through the lung bases show apparent changes of pulmonary fibrosis and bilateral smal l pleural effusions. Liver and spleen are unremarkable in appearance by noncontrast criteria. No specific pancreatic abnor mality seen. Very dilatation, gallbladder nonvisualized. No abdominal or pelvic adenopathy. No significant abdominal wall hernia. Abdominal aorta is of normal diameter. Adrenals and kidneys are unremarkable in appearance, no urinary tract calcification or obstruction. U rinary bladder grossly unremarkable by noncontrast criteria. International Marketing Manager structures unremarkable for age. Appendix not specifically visualized but there is no evidence of appendicitis or diverticulitis. IMPRESSION: No evidence of acute intra-abdominal process. RADIATION DOSE DELIVERED: 981.72mGy.cm Total DLP
[2020-06-12] MEDS: Normal Saline 1,000 ML 1000 ML IV (16:41)
[2020-06-12 16:57] VITALS: BP 94/43; PULSE 78; RESP 18; O2SAT 94
[2020-06-12 17:45] VITALS: BP 126/60; PULSE 73; RESP 18; O2SAT 97
--- NOTE | 2020-06-12 18:04 | DI.VRAD_ITS ---
PROCEDURE INFORMATION: Exam: CT Abdomen And Pelvis Without Contrast Exam date and time: 06/12/2020 4:15 PM Age: 69 years old Clinical indication: Nausea and vomiting and other: Luq pain; Additional info: Nausea, vomiting, diarrhea x2 weeks TECHNIQUE: Imaging protocol: Computed tomography of the abdomen and pelvis without contrast. COMPARISON: CT ABDOMEN PELVIS WO 03/03/2019 17:01 FINDINGS: Lungs: Calcified granuloma at the lung bases. Pleural space: Persistent by lateral infiltrates with bilateral pleural thickening and intralobular septal thickening. Mediastinal space: Hiatal hernia. Liver: Hepatic steatosis similar to prior study with Hounsfield units of the liver measuring 45. Gallbladder and bile ducts: The gallbladder is not visualized. Pancreas: Fatty infiltration of the pancreas. Spleen: Stable splenules. Adrenals: Normal. No mass. Kidneys and ureters: Normal. No hydronephrosis. Stomach and bowel: Stable appearance of the colon when compared with prior study. Contracted empty stomach consistent with history of vomiting. Normal caliber small bowel. Appendix: The appendix is not identified. Intraperitoneal space: Unremarkable. No free air. No significant fluid collection. Vasculature: Atherosclerotic disease. Lymph nodes: Unremarkable. No enlarged lymph nodes. Bladder: Unremarkable as visualized. Reproductive: Unremarkable as visualized. Bones/joints: Osteoarthritic degenerative changes of the hips. Multilevel degenerative changes of the thoracic and lumbar spine. Compression deformity of L1 vertebral body similar to prior study. Soft tissues: Umbilical hernia. IMPRESSION: 1. Bilateral infiltrates with chronic interstitial lung disease. Bilateral pleural thickening. 2. No acute intra-abdominal or pelvic process. 3. Additional findings as discussed above. Dictated and Authenticated by: Stacie Alva MD. Ordering:BRYANT Cagle MD
[2020-06-12 18:19] LABS: BUN 19 mg/dL (7-18); Calcium 8.5 mg/dL (8.5-10.1); Chloride 104 mmol/L (98-107); Estimated GFR 49.39 (mL/min/1.73m2); Potassium 4.2 mmol/L (3.5-5.1); Sodium 140 mmol/L (136-145)
[2020-06-12 18:21] LABS: Abs Immature Grans 0.02 10^3/uL (0.0-0.06); Absolute Basophil Count 0.03 10^3/uL (0.0-0.2); Absolute Eosinophil Count 0.13 10^3/uL (0.0-0.7); Absolute Lymphocyte Count 2.01 10^3/uL (1.2-3.4); Absolute Monocyte Count 0.61 10^3/uL (0.1-0.8); Absolute Neutrophil Count 6.21 10^3/uL (1.2-6.7); Basophils % 0.3; Eosinophils % 1.4; HCT 42.9 % (36.0-46.0); Immature Grans % 0.2; Lymphocytes % 22.3; MCH 30.1 pg (27.0-33.0); MCHC 32.4 % (32.0-36.0); MCV 92.9 fL (80-95); MPV 9.7 fL (8.0-11.0); Monocytes % 6.8; Nucleated RBC 0 %; Platelet Count 266 10^3/uL (130-400); RBC 4.62 10^6/uL (3.93-5.22); RDW 14.2 % (11.7-14.6); RDW-SD 48.7 fL; WBC 9.01 10^3/uL (4.4-10.8)
[2020-06-12 18:28] LABS: HGB 13.9 g/dL (11.2-15.7)
[2020-06-12 18:30] LABS: Glucose 118 mg/dL (74-106)
[2020-06-12 19:31] VITALS: BP 121/65; PULSE 70; RESP 18; TEMP 36.5; O2SAT 97
== END 2020-06-12 19:30 | disposition home or self-care (01) ==
PROVIDERS: Physician Assistant; Emergency Provider Physician Assistant; PCP Family Medicine
DX: J18.9 Pneumonia, unspecified organism (principal); E86.0 Dehydration; R11.2 Nausea with vomiting, unspecified; R10.12 Left upper quadrant pain; E11.9 Type 2 diabetes mellitus without complications; Z79.4 Long term (current) use of insulin; I10 Essential (primary) hypertension
CPT/HCPCS: 36415; 80048; 80053; 83690; 93005; 96361; 96365; 96375; 99285; 74176; 83735; 85025; 93010; J2405

== ENCOUNTER 2020-06-19 07:42 | Outpatient (CLI) | payer OTHER, MEDICAID, SELFPAY ==
[2020-06-22 08:22] LABS: SARS-CoV-2 RNA Undetected (Undetected); SARS-CoV-2 Specimen Source Nasopharynx
== END 2020-06-19 08:02 ==
PROVIDERS: PCP Family Medicine; Visit Provider Family Medicine
DX: J18.9 Pneumonia, unspecified organism (principal)
CPT/HCPCS: U0003

== ENCOUNTER 2020-06-20 23:14 | Inpatient (IN) | payer OTHER, MEDICAID, SELFPAY ==
[2020-06-20 23:24] VITALS: BP 134/50; PULSE 127; RESP 22; TEMP 36.4; O2SAT 96
--- NOTE | 2020-06-20 23:30 | RT.EKG_ITS ---
APPROVED REPORT Exam: Resting ECG Patient Location: E HR:88 bpm ECG Measurements Heart Rate 88 AXIS OK 180 P 27 QRSd 101 QRS -7 QT 379 T 106 QTc 460 Conclusion Sinus rhythm...normal P axis, V-rate 60- 99 There are no significant changes compared to prior EKG performed on 06/12/2020 at 14:11.
--- NOTE | 2020-06-20 23:30 | DI.CT_ITS ---
EXAM: CT ABDOMEN PELVIS W CLINICAL HISTORY: persistent cough, vomiting, diarrhea TECHNIQUE: Imaging Protocol: Axial computed tomography images with coronal and sagittal reformatted images were created and reviewed CONTRAST MATERIAL: Intravenous: Omnipaque 350 Contrast volume:100 mL Oral: No COMPARISON: CT CT ABDOMEN PELVIS WO from 06/12/2020 FINDINGS: ABDOMEN: Lung Bases: Bilateral basilar infiltrates. Cardiomegaly. Liver: Normal density. No measurable mass. Portal, Superior Mesenteric, and Splenic Veins: Unremarkable. Gallbladder and Biliary Tract: Status post cholecystectomy. Pancreas: Normal density, no abnormal calcifications or inflammatory process. Spleen: Normal. Adrenals: No masses seen. Kidneys: Normal size, contour and axis. No radiodense stones or obstructive uropathy. No masses seen. Abdominal Aorta: Abdominal portion non-dilated. Atherosclerosis. Bowel: Mild bowel wall thickening seen in the proximal small bowel. Sigmoid diverticulosis without ev idence of acute diverticulitis. Apparent wall thickening seen in the colon which likely reflects unde rdistention. No evidence of acute appendicitis. Moderate hiatal hernia. Peritoneal Cavity: No ascites, collection or mesenteric inflammatory response. Lymph Nodes: Within normal limits. Bones: No acute abnormality. Soft Tissues: Unremarkable. PELVIS: Bladder: Symmetric distention, no gross wall thickening. Reproductive Organs: Unremarkable as visualized. Lymph Nodes: Within normal limits. Bones: No acute abnormality. IMPRESSION: 1. Findings suspicious for a mild inflammatory infectious enteritis. RADIATION DOSE DELIVERED: 1,021.83mGy.cm Total DLP DATA REPOSITORY: All CT scans at this facility are submitted to the National Radiology Data Registry (NRDR) Dose Index Registry (DIR) with the [employer] (ACR). RADIATION OPTIMIZATION: All CT scans at this facility use at least one of these dose optimization te chniques: automated exposure control; mA and/or kV adjustment per patient size (includes targeted exa ms where dose is matched to clinical indication); or iterative reconstruction.
[2020-06-20] MEDS: Ondansetron 4 MG/2 ML VIAL (23:35)
--- NOTE | 2020-06-20 23:46 | ED.GENADUL_ITS ---
Discharge Plan Disposition Patient Disposition: [facility] INPATIENT Condition: Good Discharge Details Chief Complaint: Nausea/Vomit/Diar Clinical Impression: Nausea & vomiting, Dehydration, Enteritis Primary Care Provider: Mario Garcia ED Provider: Facundo Alberto Castleton Meds and New Rx's Prescriptions: No Action albuterol sulfate 2.5 mg /3 mL (0.083 %) solution for nebulization 2.5 mg Inhalation Q6H PRN (Reason: shortness of breath or wheezing) Qty: 10 RF: 6 (DME) Wheeled walker with seat and basket Qty: 1 RF: 0 metoclopramide HCl 10 mg tablet 10 mg PO Q6H PRNRF: 0 sucralfate 1 gram tablet 1 gm PO QACHS RF: 0 Januvia 25 mg tablet 25 mg PO QAM Qty: 90 RF: 3 budesonide-formoterol [Symbicort] 160-4.5 mcg/actuation HFA aerosol inhaler 2 puff IH BID RF: 0 clotrimazole 1 % cream 1 applic topical TID Qty: 113 RF: 6 Tresiba FlexTouch U-200 200 unit/mL (3 mL) insulin pen See Rx Instructions SC QHS Qty: 12 RF: 12 (DME) compress.stocking,knee,reg,lrg misc See Dose Instructions .ROUTE .MEDSUPPLY Qty: 2 RF: 0 donepezil 5 mg tablet,disintegrating 5 mg PO DAILY Qty: 30 RF: 11 Shingrix (PF) 50 mcg/0.5 mL suspension for reconstitution 50 mcg IM ONCE Qty: 1 RF: 1 (DME) pen needle, diabetic [Pen Needle] 31 gauge x 5/16 needle 1 ea Miscellaneous QID Qty: 4 RF: 12 albuterol sulfate [Ventolin HFA] 8 GM HFA aerosol inhaler 2 puff Inhalation Q4H PRN Qty: 1 RF: 4 (DME) Oxygen Tank See Dose Instructions .ROUTE .MEDSUPPLY Qty: 1 RF: 0 (DME) Face mask to deliver Oxygen Qty: 2 RF: 6 acidophilus-pectin, citrus 25 million cell -100 mg tablet 1 tab PO TID Qty: 90 RF: 6 cyclobenzaprine 5 mg tablet 5 mg PO TID PRN (Reason: muscle spasm) Qty: 90 RF: 6 (DME) lancets 28 gauge misc 1 ea Miscellaneous TID Qty: 400 RF: 12 benzonatate [Tessalon Perles] 100 mg capsule 100 mg PO BID-TID PRN (Reason: cough) Qty: 90 RF: 3 furosemide 40 mg tablet 40 mg PO DAILY Qty: 30 RF: 3 nystatin 100,000 unit/gram powder 1 applic TP TID Qty: 60 RF: 0 Ofev 150 mg capsule 150 mg PO Q12H PRNRF: 0 Stiolto Respimat 2.5-2.5 mcg/actuation mist 2 puff IH DAILY RF: 0 (DME) Oxygen Tank See Rx Instructions .ROUTE .MEDSUPPLY Qty: 1 RF: 0 Blister gordon package See Rx Instructions PO RF: 0 insulin lispro [Humalog KwikPen Insulin] 100 unit/mL insulin pen See Rx Instructions SC .per ss Qty: 15 RF: 3 Breo Ellipta 200-25 mcg/dose blister with device 1 inh IH DAILY PRNRF: 0 simvastatin 40 mg tablet 40 mg PO HS Qty: 30 RF: 11 spironolactone 25 mg tablet 25 mg PO DAILY Qty: 30 RF: 11 escitalopram oxalate 10 mg tablet 10 mg PO .NOON Qty: 30 RF: 11 Jardiance 10 mg tablet 10 mg PO QAM Qty: 30 RF: 11 pantoprazole 40 mg tablet,delayed release (DR/EC) 40 mg PO DAILY Qty: 90 RF: 3 (DME) Blood Glucose Test Strip 1 ea Miscellaneous TID Qty: 400 RF: 12 epinephrine [EpiPen 2-Gordon] 0.3 MG/0.3 ML auto-injector 0.3 mg IM ONCE PRNRF: 0 doxycycline hyclate 100 mg capsule 100 mg PO BID Qty: 20 RF: 0 promethazine 12.5 mg tablet 12.5 mg PO TID PRNQty: 10 RF: 0 ketoconazole 2 % Cream 1 applic topical BID Qty: 30 RF: 0 zinc oxide 20 % Ointment 60 g topical PRN PRNQty: 0 RF: 0 vits A and D-white pet-lanolin Ointment 60 g topical PRN PRNQty: 0 RF: 0 Medical Decision Making Patient seen here on the with nausea vomiting. Was sent home on doxycycline for presumed bilateral basilar pneumonia. In reviewing the over read of CT scan these are likely chronic interstitial fibrotic changes and not pneumonia. She has finished the doxycycline. She continues to have vomiting and diarrhea. She is actively dry heaving and quite diaphoretic here. IV started and fluids hung. Zofran given as she has been on promethazine at home. Laboratory studies sent including orders for stool samples for C. difficile and fecal PCR. Will rescan chest abdomen pelvis as patient report worsening symptoms to see if any changes compared to previous. Patient laboratory studies significant for hemoconcentration of the CBC with a white count of 14.7 and hemoglobin of 17. Chemistry significant for an anion gap of 17 and a bump in creatinine to 1.6. Electrolytes are normal. Liver function normal. Troponin negative. CT scan of chest shows mostly chronic changes though radiology feels possibility of overlying pneumonia cannot be ruled out. However there is no distinct consolidation. Would not at this point continue treatment for pneumonia. Abdominal pelvic CT scan now shows both small bowel and large bowel areas of edema consistent with enteritis/colitis. On reevaluation patient feels a little better. Still reports having dry heaves. Given her second visit for same with evidence of fairly significant dehydration and CT scan showing both small bowel and large bowel involvement will at least admit for IV fluids as well as symptomatic management of vomiting. C. difficile has come back negative. Other stool studies pending. Case discussed with hospitalist. Patient admitted to [facility] in stable condition. Medical Records Medical records reviewed: Yes I reviewed the patient's medical records. Lab Data Lab results reviewed: Yes I reviewed the patient's lab results. ECG Data Attestation: I personally reviewed and interpreted this ECG (s) as follows: Interpretation: See EKG report HPI General Mode of arrival: wheelchair . Date/Time Provider Initiated Documentation: 06/20/20 23:23 . Limitations to Documentation: no limitations . Information obtained by: patient, RN notes reviewed and old records reviewed . HPI Narrative: Patient presents to ED with continued vomiting and diarrhea. Patient seen here on the with same complaint. At that time reported symptoms for almost 2 weeks. Work-up essentially unremarkable other than evidence of dehydration. CT scan of the abdomen pelvis showed no significant intra-abdominal pathology. Wet read suggested possible basilar consolidation so patient was started on doxycycline. She continues to have cough. She does not feel that her shortness of breath is any worse than usual except when she is coughing or vomiting. She denies having chest pain or pressure. She has been diaphoretic recently due to all the vomiting. She denies fever. She denies abdominal pain other than when vomiting. She reports being unable to keep anything down. There is been no hematemesis or hematochezia. She did finish the antibiotics. Tonight she has had nonstop retching and presents for evaluation. Related Data Home Medications Medication Instructions Recorded Confirmed albuterol sulfate [Ventolin HFA] 2 puff INHALATION Q4H PRN #1 10/09/14 06/21/20 inhaler compress.stocking,knee,reg,lrg #2 each 10/29/18 03/27/20 albuterol sulfate 2.5 mg INHALATION Q6H PRN #10 vial 11/09/18 06/21/20 Oxygen #1 each 11/29/18 03/27/20 ketoconazole 1 applic TOPICAL BID #30 gm 01/31/19 06/21/20 Wheeled walker with seat and basket #1 ea 02/07/19 03/27/20 vits A and D-white pet-lanolin 60 g TOPICAL PRN PRN #0 g 03/20/19 06/21/20 zinc oxide 60 g TOPICAL PRN PRN #0 g 03/20/19 06/21/20 Face mask to deliver Oxygen #2 each 04/23/19 03/27/20 acidophilus 25 million 1 tab PO TID #90 tab 05/07/19 06/21/20 cell-pectin, citrus 100 mg tablet cyclobenzaprine 5 mg tablet 5 mg PO TID PRN #90 tab 05/07/19 06/21/20 lancets 28 gauge #400 ea 05/17/19 03/27/20 benzonatate 100 mg capsule 100 mg PO BID-TID PRN #90 cap 06/06/19 06/21/20 furosemide 40 mg tablet 40 mg PO DAILY #30 tab 06/20/19 06/21/20 donepezil 5 mg disintegrating 5 mg PO DAILY #30 tab-cap 07/16/19 06/21/20 tablet varicella-zoster gE-AS01B (PF) 50 50 mcg IM ONCE #1 each 07/16/19 06/12/20 mcg/0.5 mL IM susp, kit nystatin 100,000 unit/gram topical 1 applic TP TID #60 gm 08/01/19 06/21/20 powder pen needle, diabetic 31 gauge x #4 box 10/11/19 03/27/2003/07 Oxygen #1 each 11/08/19 03/27/20 nintedanib 150 mg capsule 150 mg PO Q12H PRN 11/08/19 06/21/20 tiotropium 2.5 mcg-olodaterol 2.5 2 puff IH DAILY 11/08/19 06/21/20 mcg/actuation mist for inhalation metoclopramide HCl 10 mg tablet 10 mg PO Q6H PRN 11/11/19 06/21/20 sitagliptin 25 mg tablet 25 mg PO QAM #90 tab 11/11/19 06/21/20 sucralfate 1 gram tablet 1 gm PO QACHS 11/11/19 06/21/20 budesonide-formoterol HFA 160 2 puff IH BID 12/27/19 06/21/20 mcg-4.5 mcg/actuation aerosol inhaler clotrimazole 1 % topical cream 1 applic TOPICAL TID #113 gm 12/27/19 06/21/20 Blister gordon See Rx Instructions PO 01/20/20 03/27/20 insulin lispro 100 unit/mL See Rx Instructions SC .per ss #15 01/20/20 06/21/20 subcutaneous pen ml fluticasone furoate 200 1 inh IH DAILY PRN 02/14/20 06/21/20 mcg-vilanterol 25 mcg/dose inhalation powder escitalopram oxalate 10 mg tablet 10 mg PO .NOON #30 tab-cap 03/09/20 06/21/20 simvastatin 40 mg tablet 40 mg PO HS #30 tab 03/09/20 06/21/20 spironolactone 25 mg tablet 25 mg PO DAILY #30 tab 03/09/20 06/21/20 empagliflozin 10 mg tablet 10 mg PO QAM #30 tab 03/10/20 06/21/20 insulin degludec 200 unit/mL (3 See Rx Instructions SC QHS #12 ml 03/27/20 06/21/20 mL) subcutaneous pen pantoprazole 40 mg tablet,delayed 40 mg PO DAILY #90 tab 04/03/20 06/21/20 release doxycycline hyclate 100 mg PO BID #20 cap 06/12/20 06/21/20 epinephrine [EpiPen 2-Gordon] 0.3 mg IM ONCE PRN 06/12/20 06/21/20 promethazine 12.5 mg PO TID PRN #10 tab 06/12/20 06/21/20 blood sugar diagnostic #400 strip 06/15/20 Previous Rx's Medication Instructions Recorded compress.stocking,knee,reg,lrg #2 each 10/29/18 albuterol sulfate 2.5 mg INHALATION Q6H PRN #10 vial 11/09/18 ketoconazole 1 applic TOPICAL BID #30 gm 01/31/19 Wheeled walker with seat and basket #1 ea 02/07/19 vits A and D-white pet-lanolin 60 g TOPICAL PRN PRN #0 g 03/20/19 zinc oxide 60 g TOPICAL PRN PRN #0 g 03/20/19 Face mask to deliver Oxygen #2 each 04/23/19 acidophilus 25 million 1 tab PO TID #90 tab 05/07/19 cell-pectin, citrus 100 mg tablet cyclobenzaprine 5 mg tablet 5 mg PO TID PRN #90 tab 05/07/19 lancets 28 gauge #400 ea 05/17/19 benzonatate 100 mg capsule 100 mg PO BID-TID PRN #90 cap 06/06/19 furosemide 40 mg tablet 40 mg PO DAILY #30 tab 06/20/19 donepezil 5 mg disintegrating 5 mg PO DAILY #30 tab-cap 07/16/19 tablet varicella-zoster gE-AS01B (PF) 50 50 mcg IM ONCE #1 each 07/16/19 mcg/0.5 mL IM susp, kit nystatin 100,000 unit/gram topical 1 applic TP TID #60 gm 08/01/19 powder pen needle, diabetic 31 gauge x #4 box 10/11/1903/07 sitagliptin 25 mg tablet 25 mg PO QAM #90 tab 11/11/19 clotrimazole 1 % topical cream 1 applic TOPICAL TID #113 gm 12/27/19 insulin lispro 100 unit/mL See Rx Instructions SC .per ss #15 01/20/20 subcutaneous pen ml escitalopram oxalate 10 mg tablet 10 mg PO .NOON #30 tab-cap 03/09/20 simvastatin 40 mg tablet 40 mg PO HS #30 tab 03/09/20 spironolactone 25 mg tablet 25 mg PO DAILY #30 tab 03/09/20 empagliflozin 10 mg tablet 10 mg PO QAM #30 tab 03/10/20 insulin degludec 200 unit/mL (3 See Rx Instructions SC QHS #12 ml 03/27/20 mL) subcutaneous pen pantoprazole 40 mg tablet,delayed 40 mg PO DAILY #90 tab 04/03/20 release doxycycline hyclate 100 mg PO BID #20 cap 06/12/20 promethazine 12.5 mg PO TID PRN #10 tab 06/12/20 blood sugar diagnostic #400 strip 06/15/20 Allergies Allergy/AdvReac Type Severity Reaction Status Date / Time aspirin Allergy Unknown HIVES, Verified 06/20/20 23:34 flip out diclofenac Allergy Unknown RASH Verified 06/20/20 23:34 latex Allergy Unknown SKIN Verified 06/20/20 23:34 BREAKDOWN NSAIDS (Non-Steroidal Allergy Unknown HIVES, Verified 06/20/20 23:34 Anti-Inflamma VOMITING morphine AdvReac Unknown VOMITING Verified 06/20/20 23:34 General Stated Complaint: Nausea/Vomit/Diar ALVIN: 3 Review of Systems Narrative: 08/05 Review of Systems completed and is negative except as stated above in HPI (Systems reviewed: Const, Eyes, ENT, Resp, CV, GI, , MSK, Skin, Neuro) [facility] Medical History Abdominal pain (Resolved) Acute gastroenteritis (Resolved 03/16/18) Acute kidney injury (nontraumatic) (Resolved) Acute pneumonitis (Inactive) Anxiety (Chronic 03/16/18) Asthma (Chronic) Asthma (Chronic) Back pain (Chronic) CHF (congestive heart failure) (Chronic) Chronic constipation (Chronic 03/16/18) Cognitive impairment (Chronic 03/16/18) Mild, w/Memory Loss Cubital tunnel syndrome (Resolved 03/16/18) Depressive disorder (Chronic) DKA (diabetic ketoacidoses) (Resolved) Dyspnea (Chronic 03/16/18) Edema (Chronic 03/16/18) Essential hypertension (Chronic 07/17/13) Gastroesophageal reflux disease without esophagitis (Chronic 03/16/18) History of shingles (Resolved 03/16/18) Hyperlipemia (Acute) Insulin dependent diabetes mellitus (Chronic) Internal derangement of right knee (Chronic) Interstitial lung disease (Chronic 03/16/18) Pulm: Trevondlshashank Long-term use of high-risk medication (Chronic 03/16/18) Metabolic acidosis with normal anion gap and bicarbonate losses (Resolved) Migraine (Chronic 04/03/14) Neck pain (Chronic 03/16/18) 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 History of section (Inactive) Ligation of fallopian tube Thoracoscopic (R)Lung Bx (02/12/18) Family History Mother , aged 81 from dementia, per Elly Diabetes Essential hypertension CHF (congestive heart failure) Heart disease CHF/heart failure Dementia Father , aged 80 Diabetes Essential hypertension CAD (coronary artery disease) Heart disease [place] Hyperlipidemia Stroke Sister , aged 54 Diabetes Personal history of malignant neoplasm Lung Asthma Lung cancer Brother , of mesithelioma aged 62 Diabetes Essential hypertension Personal history of malignant neoplasm Lung, Prostate Hyperlipidemia Asthma Mesothelioma Brother , of PE following knee surgery age 69 Pulmonary embolus with infarction Daughter No problems noted. Son No problems noted. Social History Smoking/Tobacco Use Status: Never Alcohol Intake: never Details: monthly or less Drug use: Never Substance use type: does not use Adopted: No Caregiver/Support person: No Foster care: No Household members: none Housing: apartment Number of Children: 2 number of grandchildren: 5 Communication Needs: Hard of Hearing and Corrective Lenses Education Level: middle school Do you need help understanding health information?: Always current occupation: disabled Pets and animals: No What is your relationship status?: How often do you talk on the phone with friends or family?: twice per week How often do you get together with friends or relatives?: once per week Panel score (0-1 are the most socially isolated patients): 1 What type of physical activity do you participate in: none and sedentary lifestyle Duration: 15-30 minutes/day Frequency: daily Special devin needs: No Agree to transfusion: Yes Seatbelt use: always Drive intox or ride w/intox flatbed truck driver: No Water heater temp set <120 deg: Yes Working smoke detector in home: Yes Fire extinguisher in home: Yes Carbon monox detector in home: Yes Do you feel safe at home: Yes Do you feel safe in your relationship?: Yes Additional Social history: Grandson Jorge Luis used to live with her. His phone # is [phone]. Daughter Caridad lives in [place]. Son Himanshu lives in [facility], not as close to him. Gets together with brother Brian regularly who takes her shopping and goes for drives. Exam Narrative Exam Narrative: Vitals: Afebrile. Tachycardic to 130. Normal blood pressure. Normal room air O2 saturation. Const: Obese female actively retching. HEENT: NC/AT. Normal facial exam. Eyes: Normal conjunctiva and sclera. Neck: Supple. Trachea midline. Lungs: Normal respiratory effort. Lungs are clear. Cor: RRR without murmur. Tachy. Good radial pulses. GI: Soft. NT/ND. No guarding or rebound. Neuro: A+O x 3. Normal speech, mentation, gait. Cranial nerves II - XII grossly intact. No gross motor or sensory deficit. Ext: No C/C/E. Skin: Warm and diaphoretic. Course Vital Signs Vital signs: Vital Signs Temperature 97.5 F L 06/20/20 23:24 Pulse 127 H 06/20/20 23:24 Respiratory Rate 22 06/20/20 23:24 Blood Pressure 134/50 L 06/20/20 23:24 Pulse Oximetry 96 06/20/20 23:24 Temperature 97.5 F L 06/20/20 23:24 Temperature Source Oral 06/20/20 23:24 Pulse 127 H 06/20/20 23:24 Respiratory Rate 22 06/20/20 23:24 Respiratory Effort Non-Labored 06/20/20 23:26 Blood Pressure 134/50 L 06/20/20 23:24 Blood Pressure Position Sitting 06/20/20 23:24 Pulse Oximetry 96 06/20/20 23:24 Oxygen Delivery Method Room Air 06/20/20 23:24 Oxygen Flow Rate 0 06/20/20 23:24
[2020-06-20 23:59] LABS: Abs Immature Grans 0.04 10^3/uL (0.0-0.06); HCT 52.5 % (36.0-46.0); MCH 29.5 pg (27.0-33.0); MCHC 32.4 % (32.0-36.0); MPV 10.2 fL (8.0-11.0); Nucleated RBC 0 %; Platelet Count 363 10^3/uL (130-400); RBC 5.77 10^6/uL (3.93-5.22); RDW 14.6 % (11.7-14.6); RDW-SD 48.5 fL; WBC 14.71 10^3/uL (4.4-10.8)
[2020-06-21 00:15] LABS: ALT 25 U/L (14-59); AST 15 U/L (15-37); Albumin 4.2 g/dL (3.4-5.0); Alkaline Phosphatase 118 U/L (46-116); Anion Gap 17.4 mmol/L (3-11); BUN 25 mg/dL (7-18); Bilirubin, Total 0.9 mg/dL (0.2-1.0); CO2 23.6 mmol/L (21.0-32.0); CREATININE 1.64 mg/dL (0.55-1.02); Calcium 10.7 mg/dL (8.5-10.1); Chloride 98 mmol/L (98-107); Estimated GFR 31.15 (mL/min/1.73m2); Glucose 185 mg/dL (74-106); Potassium 3.5 mmol/L (3.5-5.1); Sodium 139 mmol/L (136-145); Total Protein 8.7 g/dL (6.4-8.2)
[2020-06-21 00:17] LABS: Troponin I < 0.05 ng/mL (<0.06)
[2020-06-21 00:44] LABS: Absolute Lymphocyte Count 5.15 10^3/uL (1.2-3.4); Absolute Monocyte Count 0.59 10^3/uL (0.1-0.8); Absolute Neutrophil Count 8.83 10^3/uL (1.2-6.7); Atypical Lymphocytes % 6
[2020-06-21 00:45] LABS: Absolute Eosinophil Count 0.29 10^3/uL (0.0-0.7); Diff Comment Manual Differential
--- NOTE | 2020-06-21 00:45 | NUR.NOTE ---
Nursing Note: Pt confirmed all home meds as active though states she has not been able to hold them down in approx 3 wks.
--- NOTE | 2020-06-21 00:47 | DI.CT_ITS ---
EXAM: CT CHEST WO CLINICAL HISTORY: worsening cough, vomiting TECHNIQUE: Imaging Protocol: Axial computed tomography images with coronal and sagittal reformatted images were created and reviewed CONTRAST MATERIAL: Intravenous: Omnipaque 350 Contrast volume:0 mL. COMPARISON: CT CT CHEST HIGH RESOLUTION from 02/27/2020 FINDINGS: Tracheobronchial tree: Patent where visualized. Mediastinum and Martha: No dominant adenopathy or fluid collection. Pulmonary parenchyma: Diffuse interstitial lung disease is present which is likely chronic. No super imposed infiltrate is identified at this time. Pleura: No effusion or pneumothorax. Heart: The heart is not dilated. Mild coronary artery calcification. No pericardial effusion. Aorta: Thoracic aorta non-dilated. Atherosclerosis. Upper abdomen: Hiatal hernia. Lymph nodes: Within normal limits. Bones: Degenerative changes. Soft tissues: Unremarkable. IMPRESSION: Chronic interstitial lung disease. In the correct clinical setting, a superimposed acute interstitia l process would be difficult to exclude. RADIATION DOSE DELIVERED: 483.75mGy.cm Total DLP DATA REPOSITORY: All CT scans at this facility are submitted to the National Radiology Data Registry (NRDR) Dose Index Registry (DIR) with the [employer] (ACR). RADIATION OPTIMIZATION: All CT scans at this facility use at least one of these dose optimization te chniques: automated exposure control; mA and/or kV adjustment per patient size (includes targeted exa ms where dose is matched to clinical indication); or iterative reconstruction.
--- NOTE | 2020-06-21 00:57 | DI.VRAD_ITS ---
PROCEDURE INFORMATION: Exam: CT Abdomen And Pelvis With Contrast Exam date and time: 06/20/2020 12:29 AM Age: 69 years old Clinical indication: Vomiting and other: Diarrhea; Patient HX: Vomiting, diarrhea TECHNIQUE: Imaging protocol: Computed tomography of the abdomen and pelvis with intravenous contrast. COMPARISON: CT ABDOMEN PELVIS WO 06/12/2020 5:16 PM FINDINGS: Lungs: Patchy peripheral interstitial and alveolar densities in the lung bases, right greater than left. This most likely represents chronic interstitial lung disease with chronic intermixed scarring/fibrosis and atelectasis, and is unchanged from prior high-resolution chest CT 02/27/2020. It is difficult to exclude an element of active pulmonary infection/pneumonia in the right lung base. Heart: Mild cardiomegaly. Mediastinal space: Small hiatal hernia. The visualized distal esophagus and stomach are otherwise unremarkable. Liver: Normal size and contour. No mass lesions. Slight intrahepatic biliary ductal dilatation unchanged. Gallbladder and bile ducts: Evidence of prior cholecystectomy with no significant dilatation of the common bile duct. Pancreas: Moderate pancreatic atrophy without acute abnormality. No pancreatic ductal dilatation. Spleen: Normal. No splenomegaly. Adrenals: Normal. No adrenal mass. Kidneys and ureters: No acute abnormalities. No hydronephrosis or hydroureter. No urinary tract stones are identified. Stomach and bowel: Nondilated small bowel with no evidence of obstruction. Slightly excessive mucosal enhancement in the proximal and mid segments may indicate a mild element of gastroenteritis. Question slight colonic wall thickening in the proximal colon and sigmoid colon which could represent a mild element of colitis. There are a few scattered colonic diverticula without evidence of diverticulitis. Appendix: The appendix is not identified. No secondary signs of appendicitis. Intraperitoneal space: No free fluid or air. Vasculature: Mild atherosclerotic aortoiliac calcification without aneurysm. Lymph nodes: No adenopathy. Bladder: Unremarkable as visualized. Reproductive: Unremarkable as visualized. Bones/joints: No acute osseous abnormalities. Moderate chronic superior endplate compression deformity of L1 is unchanged. Soft tissues: Unremarkable. IMPRESSION: 1. No definite acute process is identified. 2. Questionable findings suspicious for mild gastroenteritis and colitis. No evidence of bowel obstruction, perforation, or abscess. 3. There is evidence of chronic interstitial fibrosis with interstitial and alveolar opacities in both lung bases, right greater than left, which are unchanged from 02/27/2020. This makes it difficult to exclude an element of active basilar pulmonary infection/pneumonia ever. 4. Small hiatal hernia. Dictated and Authenticated by: Fabian Tabor MD. Ordering:JOSE Loredo MD
[2020-06-21] MEDS: FAMOTIDINE 20 MG/50 ML BAG 100 MG IVPB (01:08)
[2020-06-21] MEDS: Lactated Ringers 1,000 ML 1000 ML IV (01:08)
--- NOTE | 2020-06-21 02:08 | DI.VRAD_ITS ---
PROCEDURE INFORMATION: Exam: CT Chest Without Contrast Exam date and time: 06/21/2020 1:56 AM Age: 69 years old Clinical indication: Patient HX: Worsening cough, vomiting TECHNIQUE: Imaging protocol: Computed tomography of the chest without contrast. COMPARISON: CT CHEST HIGH RESOLUTION 02/27/2020 11:00 AM FINDINGS: Lungs: Chronic interstitial lung disease manifest as prominent subpleural interstitial markings. In the correct clinical setting a superimposed acute interstitial process including viral pneumonia, would be difficult to exclude. Pleural space: Unremarkable. No pneumothorax. No pleural effusion. Heart: Unremarkable. No cardiomegaly. No pericardial effusion. Mediastinal space: Small hiatal hernia noted Aorta: Unremarkable. No aortic aneurysm. Lymph nodes: Small nonspecific mediastinal lymph nodes are present. Bones/joints: Unremarkable. No acute fracture. Soft tissues: Unremarkable. IMPRESSION: Chronic interstitial lung disease manifest as prominent subpleural interstitial markings. In the correct clinical setting a superimposed acute interstitial process including viral pneumonia, would be difficult to exclude. Dictated and Authenticated by: Jason Werner MD. Ordering:JOSE Loredo MD
[2020-06-21 02:43] VITALS: BP 112/65; PULSE 78
[2020-06-21] MEDS: Lactated Ringers 1,000 ML 125 ML IV ×3 (03:00→17:25)
[2020-06-21 03:35] VITALS: BP 124/84; PULSE 76; RESP 18; TEMP 36.3; O2SAT 100
--- NOTE | 2020-06-21 06:28 | HPE_ITS ---
Date of service: 06/21/20 Time of Service: 06:28 Assessment and Plan Assessment and plan (1) Enteritis: Status: Acute Assessment and plan: Patient has had 3 weeks of gastroenteritis type syndrome, with 2 CT scans of the abdomen pelvis that have not revealed significant pathology. Initial impression was pneumonia based on imaging, but clinically picture is not consistent with this and the patient did not respond well to antibiotic treatment for the pneumonia. Imaging today does suggest enteric inflammation is the cause for her symptoms. The etiology is unclear, and the duration of symptoms is not typical for viral gastroenteritis. She has a history of DKA but her labs are not consistent with this currently. She does have a slight anion gap, but I expect this to close with hydration. Acutely, she has been treated with hydration and with antiemetics. From a diagnostic perspective, SARS-CoV-2 to and C. difficile testing has been negative thus far. Repeat coronavirus testing pending. Stool for local parasites and bacterial pathogen is pending. Given initial concern for pneumonia associated with diarrhea, Legionella antigen was also sent. Suspicion for Legionella is not high enough at this point to treat presumptively. I am holding her donepezil, which can cause vomiting and diarrhea, though she has been on this for a long time. She does have a history of GERD, so we will continue proton pump inhibitor therapy. (2) Chronic respiratory failure with hypoxia: Status: Chronic Assessment and plan: Patient appears to be at her baseline respiratory status chronic oxygen. Imaging findings are consistent with her known chronic interstitial lung disease. (3) COPD (chronic obstructive pulmonary disease): Status: Chronic Assessment and plan: As above. Continue outpatient chronic inhalers. (4) CHF (congestive heart failure): Status: Chronic Assessment and plan: Patient does not appear to be in heart failure currently. EKG and troponin reassuring that she is not having acute ischemia. (5) Essential hypertension: Status: Chronic Assessment and plan: Continue her chronic spironolactone (6) Gastroesophageal reflux disease without esophagitis: Status: Chronic Assessment and plan: She does have a history of GERD, so we will continue proton pump inhibitor therapy. (7) Type II diabetes mellitus, uncontrolled: Status: Chronic Assessment and plan: Blood sugar control has improved greatly over the past year. Continue her outpatient insulin and sitagliptin. Qualifiers: Glycemic state: with hyperglycemia Qualified Code(s): E11.65 - Type 2 diabetes mellitus with hyperglycemia (8) Renal insufficiency: Status: Chronic Assessment and plan: Patient has mild acute renal insufficiency consistent with prerenal azotemia in the setting of dehydration from her enteritis. I expect this to improve with hydration. (9) DVT prophylaxis: Status: Resolved Assessment and plan: Low molecular weight heparin (10) Discharge planning issues: Status: Resolved Assessment and plan: Patient is currently stable and being observed on the medical floor. She is a full code. She is a palliative care patient and we may consult palliative care if she ends up staying another night. History of Present Illness History of Present Illness Chief Complaint: Nausea and diarrhea Narrative: 69-year-old female with history of COPD, interstitial lung disease, and CHF on home oxygen, type 2 diabetes on insulin, and mild cognitive impairment who presented to the emergency room for the second time for ongoing vomiting and diarrhea over the past 3 weeks. He first presented on June 12 complaining of nausea and vomiting and loose stools over the previous 2 weeks. She ended up h aving a CT and showing what looked like possible pneumonia in her lung bases in addition to her chronic lung disease. At that point she did have a cough but if it was unclear if a cough was different from her baseline. She was hydrated and treated with antiemetics and doxycycline for pneumonia and sent home. Patient states her nausea and vomiting only got worse with the doxycycline, she finally returned last night to the emergency room. Terms of her stools, patient states they are watery, and occurring 1-4 times a day. No blood or black stools. She does not have abdominal pain, but is a little tender when touching her abdomen throughout her mid to lower abdomen. She states she has been drinking a lot, even though she has a constant nausea and often feels like vomiting or heaving. She has not been eating solid food. Her vomiting has been bright yellow per report. No blood or coffee grounds. She denies any other changes to her medication recently. She denies any sick contacts. She does have contact with her grandchildren and son, none of whom have vomiting and diarrhea, though her son has had a cough. She has been taking her insulin regularly and reports fasting levels in the 200s and lower levels in the evenings down to the 90s. Of note she was admitted in September 2019 with diabetic ketoacidosis complicating a lung infection, but her hemoglobin A1c has improved from 14 down to 8.6 most recently in March and the time since then. Review of Systems All systems reviewed & are unremarkable except as noted in HPI and below Constitutional Constitutional: Denies chills, Denies fever(s), Denies headache(s), Reports lethargy and Reports night sweats Eyes Eyes: Denies loss of vision ENT Ears, Nose, Mouth, and Throat: Denies headache(s), Denies nasal discharge and Denies sore throat Comments: No loss of taste or smell Respiratory Respiratory: Denies hemoptysis Neurologic Neurologic: Denies headache(s), Denies localized weakness, Denies loss of vision, Denies other visual disturbances and Denies paresthesias Psychiatric Psychiatric: Denies mood swings [facility] Medical History Abdominal pain (Resolved) Acute gastroenteritis (Resolved 03/16/18) Acute kidney injury (nontraumatic) (Resolved) Acute pneumonitis (Inactive) Anxiety (Chronic 03/16/18) Asthma (Chronic) Asthma (Chronic) Back pain (Chronic) CHF (congestive heart failure) (Chronic) Chronic constipation (Chronic 03/16/18) Cognitive impairment (Chronic 03/16/18) Mild, w/Memory Loss Cubital tunnel syndrome (Resolved 03/16/18) Depressive disorder (Chronic) DKA (diabetic ketoacidoses) (Resolved) Dyspnea (Chronic 03/16/18) Edema (Chronic 03/16/18) Essential hypertension (Chronic 07/17/13) Gastroesophageal reflux disease without esophagitis (Chronic 03/16/18) History of shingles (Resolved 03/16/18) Hyperlipemia (Acute) Insulin dependent diabetes mellitus (Chronic) Internal derangement of right knee (Chronic) Interstitial lung disease (Chronic 03/16/18) Pulm: [place] Long-term use of high-risk medication (Chronic 03/16/18) Metabolic acidosis with normal anion gap and bicarbonate losses (Resolved) Migraine (Chronic 04/03/14) Neck pain (Chronic 03/16/18) 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 History of section (Inactive) Ligation of fallopian tube Thoracoscopic (R)Lung Bx (02/12/18) Family History Mother , aged 81 from dementia, [place] El[place] Diabetes Essential hypertension CHF (congestive heart failure) Heart disease CHF/heart failure Dementia Father , aged 80 Diabetes Essential hypertension CAD (coronary artery disease) Heart disease [place] Hyperlipidemia Stroke Sister , aged 54 Diabetes Personal history of malignant neoplasm Lung Asthma Lung cancer Brother , of mesithelioma aged 62 Diabetes Essential hypertension Personal history of malignant neoplasm Lung, Prostate Hyperlipidemia Asthma Mesothelioma Brother , of PE following knee surgery age 69 Pulmonary embolus with infarction Daughter No problems noted. Son No problems noted. Social History (Updated 06/21/20 @ 06:39 by Fabian Christian) Smoking/Tobacco Use Status: Never Alcohol Intake: never Details: monthly or less Drug use: Never Substance use type: does not use Adopted: No Caregiver/Support person: No Foster care: No Household members: none Housing: apartment Number of Children: 2 number of grandchildren: 5 Communication Needs: Hard of Hearing and Corrective Lenses Education Level: middle school Do you need help understanding health information?: Always current occupation: disabled Pets and animals: No What is your relationship status?: How often do you talk on the phone with friends or family?: twice per week How often do you get together with friends or relatives?: once per week Panel score (0-1 are the most socially isolated patients): 1 What type of physical activity do you participate in: none and sedentary lifestyle Duration: 15-30 minutes/day Frequency: daily Special devin needs: No Agree to transfusion: Yes Seatbelt use: always Drive intox or ride w/intox armored car guard and driver: No Water heater temp set <120 deg: Yes Working smoke detector in home: Yes Fire extinguisher in home: Yes Carbon monox detector in home: Yes Do you feel safe at home: Yes Do you feel safe in your relationship?: Yes Additional Social history: Lives in her own apartment in the [facility] near the hospital. Grandhien Kang used to live with her. His phone # is [phone]. Daughter Caridad lives in [place]. Son Himanshu lives in [facility], not as close to him. Gets together with brother Brian regularly who takes her shopping and goes for drives. Grandtimmy visit her home frequently. Meds Home Medications and Allergies Home Medications Medication Instructions Recorded Confirmed Type albuterol sulfate [Ventolin HFA] 2 puff INHALATION Q4H PRN #1 10/09/14 06/21/20 History inhaler compress.stocking,knee,reg,lrg #2 each 10/29/18 03/27/20 Rx albuterol sulfate 2.5 mg INHALATION Q6H PRN #10 vial 11/09/18 06/21/20 Rx Oxygen #1 each 11/29/18 03/27/20 History ketoconazole 1 applic TOPICAL BID #30 gm 01/31/19 06/21/20 Rx Wheeled walker with seat and basket #1 ea 02/07/19 03/27/20 Rx vits A and D-white pet-lanolin 60 g TOPICAL PRN PRN #0 g 03/20/19 06/21/20 Rx zinc oxide 60 g TOPICAL PRN PRN #0 g 03/20/19 06/21/20 Rx Face mask to deliver Oxygen #2 each 04/23/19 03/27/20 Rx acidophilus 25 million 1 tab PO TID #90 tab 05/07/19 06/21/20 Rx cell-pectin, citrus 100 mg tablet cyclobenzaprine 5 mg tablet 5 mg PO TID PRN #90 tab 05/07/19 06/21/20 Rx lancets 28 gauge #400 ea 05/17/19 03/27/20 Rx benzonatate 100 mg capsule 100 mg PO BID-TID PRN #90 cap 06/06/19 06/21/20 Rx furosemide 40 mg tablet 40 mg PO DAILY #30 tab 06/20/19 06/21/20 Rx donepezil 5 mg disintegrating 5 mg PO DAILY #30 tab-cap 07/16/19 06/21/20 Rx tablet varicella-zoster [id number] (PF) 50 50 mcg IM ONCE #1 each 07/16/19 06/12/20 Rx mcg/0.5 mL IM susp, kit nystatin 100,000 unit/gram topical 1 applic TP TID #60 gm 08/01/19 06/21/20 Rx powder pen needle, diabetic 31 gauge x #4 box 10/11/19 03/27/20 Rx 5/16 Oxygen #1 each 11/08/19 03/27/20 History nintedanib 150 mg capsule 150 mg PO Q12H PRN 11/08/19 06/21/20 History tiotropium 2.5 mcg-olodaterol 2.5 2 puff IH DAILY 11/08/19 06/21/20 History mcg/actuation mist for inhalation metoclopramide HCl 10 mg tablet 10 mg PO Q6H PRN 11/11/19 06/21/20 History sitagliptin 25 mg tablet 25 mg PO QAM #90 tab 11/11/19 06/21/20 Rx sucralfate 1 gram tablet 1 gm PO QACHS 11/11/19 06/21/20 History budesonide-formoterol HFA 160 2 puff IH BID 12/27/19 06/21/20 History mcg-4.5 mcg/actuation aerosol inhaler clotrimazole 1 % topical cream 1 applic TOPICAL TID #113 gm 12/27/19 06/21/20 Rx Blister gordon See Rx Instructions PO 01/20/20 03/27/20 History insulin lispro 100 unit/mL See Rx Instructions SC .per ss #15 01/20/20 06/21/20 Rx subcutaneous pen ml fluticasone furoate 200 1 inh IH DAILY PRN 02/14/20 06/21/20 History mcg-vilanterol 25 mcg/dose inhalation powder escitalopram oxalate 10 mg tablet 10 mg PO .NOON #30 tab-cap 03/09/20 06/21/20 Rx simvastatin 40 mg tablet 40 mg PO HS #30 tab 03/09/20 06/21/20 Rx spironolactone 25 mg tablet 25 mg PO DAILY #30 tab 03/09/20 06/21/20 Rx empagliflozin 10 mg tablet 10 mg PO QAM #30 tab 03/10/20 06/21/20 Rx insulin degludec 200 unit/mL (3 See Rx Instructions SC QHS #12 ml 03/27/20 06/21/20 Rx mL) subcutaneous pen pantoprazole 40 mg tablet,delayed 40 mg PO DAILY #90 tab 04/03/20 06/21/20 Rx release doxycycline hyclate 100 mg PO BID #20 cap 06/12/20 06/21/20 Rx epinephrine [EpiPen 2-Gordon] 0.3 mg IM ONCE PRN 06/12/20 06/21/20 History promethazine 12.5 mg PO TID PRN #10 tab 06/12/20 06/21/20 Rx blood sugar diagnostic #400 strip 06/15/20 Rx Allergies Allergy/AdvReac Type Severity Reaction Status Date / Time aspirin Allergy Unknown HIVES, Verified 06/20/20 23:34 flip out diclofenac Allergy Unknown RASH Verified 06/20/20 23:34 latex Allergy Unknown SKIN Verified 06/20/20 23:34 BREAKDOWN NSAIDS (Non-Steroidal Allergy Unknown HIVES, Verified 06/20/20 23:34 Anti-Inflamma VOMITING morphine AdvReac Unknown VOMITING Verified 06/20/20 23:34 Exam Narrative Exam Narrative: General: Alert and oriented. Pleasant. Gives a near history only for getting some details. Sits up comfortably, no acute distress. Wearing oxygen per nasal cannula. HEENT: Atraumatic. Conjunctive are clear with no icterus. Pupils equal round reactive to light with extraocular motions intact. Moist mucous membranes (after hydration in the ED), edentulous, no oropharyngeal lesions. Neck is supple with no masses or lymphadenopathy. Lungs: Clear to auscultation bilaterally on my exam, no rales or wheezes. Spea tran in full sentences and not dyspneic moving around in bed. Cardiovascular: Regular rate and rhythm no murmurs gallops or rubs. Abdomen: Active bowel sounds, soft, nondistended. Mild to moderate diffuse tenderness to deep palpation, no masses palpable. No guarding or rebound. Extremities: No cyanosis, clubbing, or edema. Nontender to palpation. MSK: No joint redness or swelling Skin: Leary patch under pannus of abdomen, no other rashes or wounds. No significant bruising. Neurologic: Cranial nerves II to XII grossly intact. Normal speech and coordination. Moving all 4 extremities, sensation grossly normal to light touch. No tremor. Normal tone. Psychiatric: Normal mood and affect. Normal thought process. She does have a few memory lapses such as the names of some of her medications. Results EKG: Normal sinus rhythm, no ischemic changes CT the chest abdomen pelvis: Lungs show chronic interstitial lung markings with patchy densities at the lung bases right greater than left, unchanged from February 2020. Slightly excessive patchy mucosal enhancement and small and large bowel. Labs Result diagrams: 06/20/20 23:30 06/20/20 23:30 Labs: Laboratory Results - last 24 hr 06/20/20 06/20/20 06/20/20 23:30 23:30 23:55 WBC 14.71 H RBC 5.77 H Hgb 17.0 H Hct 52.5 H MCV 91.0 MCH 29.5 MCHC 32.4 RDW 14.6 Plt Count 363 MPV 10.2 Immature Gran % 0.0 Neutrophils % 60.0 Lymphocytes % 29.0 Atypical Lymphs % 6 Monocytes % 4.0 Eosinophils % 2.0 Basophils % 0.0 Nucleated RBC % 0 Absolute Neutrophils 8.83 H Absolute Lymphocytes 5.15 H Absolute Monocytes 0.59 Absolute Eosinophils 0.29 Absolute Basophils 0.00 Sodium 139 Potassium 3.5 Chloride 98 Carbon Dioxide 23.6 Anion Gap 17.4 H BUN 25 H Creatinine 1.64 H Estimated GFR/1.73 m2 31.15 Glucose 185 H Calcium 10.7 H Magnesium 2.0 Total Bilirubin 0.9 AST 15 ALT 25 Alkaline Phosphatase 118 H Troponin I < 0.05 Total Protein 8.7 H Albumin 4.2 COVID-19 PCR Nasopharyn COVID-19 PCR Urine Legionella Ag Cancelled Ref Test Perform Site 06/21/20 00:06 WBC RBC Hgb Hct MCV MCH MCHC RDW Plt Count MPV Immature Gran % Neutrophils % Lymphocytes % Atypical Lymphs % Monocytes % Eosinophils % Basophils % Nucleated RBC % Absolute Neutrophils Absolute Lymphocytes Absolute Monocytes Absolute Eosinophils Absolute Basophils Sodium Potassium Chloride Carbon Dioxide Anion Gap BUN Creatinine Estimated GFR/1.73 m2 Glucose Calcium Magnesium Total Bilirubin AST ALT Alkaline Phosphatase Troponin I Total Protein Albumin COVID-19 PCR Cancelled Nasopharyn COVID-19 PCR Cancelled Urine Legionella Ag Ref Test Perform Site Cancelled Last Vital Signs Temp 36.3 C L 06/21/20 03:35 Pulse 76 06/21/20 03:35 Resp 18 06/21/20 03:35 BP 124/84 06/21/20 03:35 Pulse Ox 100 06/21/20 03:35 COVID-19 Screening Have you,or household,traveled outside [place] in last 14 days?: No Had IN PERSON contact w/suspected or confirmed C-19 person: No
[2020-06-21 07:35] VITALS: BP 104/63; PULSE 72; RESP 18; TEMP 36; O2SAT 98
[2020-06-21 08:02] LABS: Abs Immature Grans 0.03 10^3/uL (0.0-0.06); Absolute Basophil Count 0.03 10^3/uL (0.0-0.2); Absolute Eosinophil Count 0.21 10^3/uL (0.0-0.7); Absolute Monocyte Count 0.68 10^3/uL (0.1-0.8); Basophils % 0.3; Eosinophils % 2.2; HCT 42.6 % (36.0-46.0); HGB 13.7 g/dL (11.2-15.7); Immature Grans % 0.3; Lymphocytes % 24.3; MCH 29.5 pg (27.0-33.0); MCHC 32.2 % (32.0-36.0); MCV 91.8 fL (80-95); MPV 10.3 fL (8.0-11.0); Monocytes % 7.2; Neutrophils % 65.7; Nucleated RBC 0 %; Platelet Count 285 10^3/uL (130-400); RBC 4.64 10^6/uL (3.93-5.22); RDW 14.5 % (11.7-14.6); WBC 9.46 10^3/uL (4.4-10.8)
[2020-06-21 08:03] LABS: Absolute Neutrophil Count 6.22 10^3/uL (1.2-6.7)
[2020-06-21 08:14] LABS: Anion Gap 8.9 mmol/L (3-11); BUN 21 mg/dL (7-18); CO2 28.1 mmol/L (21.0-32.0); CREATININE 1.19 mg/dL (0.55-1.02); Calcium 9.2 mg/dL (8.5-10.1); Chloride 102 mmol/L (98-107); Estimated GFR 45.11 (mL/min/1.73m2); Glucose 147 mg/dL (74-106); Potassium 3.7 mmol/L (3.5-5.1); Sodium 139 mmol/L (136-145)
[2020-06-21] MEDS: Ondansetron 4 MG/2 ML VIAL IVP (09:43)
[2020-06-21] MEDS: Enoxaparin 30 MG/0.3 ML SYR SC (09:43)
[2020-06-21] MEDS: Pantoprazole 40 MG TABCR PO (09:43)
[2020-06-21] MEDS: Normal Saline Flush 10 ML SYR IVP (09:44)
[2020-06-21] MEDS: Escitalopram 10 MG TAB PO (11:36)
--- NOTE | 2020-06-21 13:38 | W.PM.PROGNOT ---
Date of Service Date of service: 06/21/20 Time of Service: 13:38 Subjective Subjective Interval history since last seen: Ms Pina hasn't had any more diarrhea so far today, but is still nauseated. I have reviewed her medical records and it apepars that Ms Pina has been on ofev for pulmonary fibrosis since October and has had diarrhea since then, which at the time she was able to tolerate. Asking Ms Pina about the diarrhea now, she states that this is the same diarrhea she has had, just got a little worse. I have reviewed the side effect profile with pharmacy, who confirmed that >60% of patients on nintedanib get diarrhea. For now, this medication is on hold. I will contact Dr Suarez tomorrow to discuss further course of action (discontinuing ofev entirely vs adjusting dose). C. Diff is negative; remained of stool studies are pending. Continue IVF, monitor overnight. The patient agrees with this plan. Objective Objective Clinical Data: Abnormal lab results 06/20/20 06/20/20 06/21/20 Range/Units 23:30 23:30 07:10 WBC 14.71 H (4.4-10.8) 10^3/uL RBC 5.77 H (3.93-5.22) 10^6/uL Hgb 17.0 H (11.2-15.7) g/dL Hct 52.5 H (36.0-46.0) % Absolute Neutrophils 8.83 H (1.2-6.7) 10^3/uL Absolute Lymphocytes 5.15 H (1.2-3.4) 10^3/uL Anion Gap 17.4 H (3-11) mmol/L BUN 25 H 21 H (7-18) mg/dL Creatinine 1.64 H 1.19 H (0.55-1.02) mg/dL Glucose 185 H 147 H (74-106) mg/dL Calcium 10.7 H (8.5-10.1) mg/dL Alkaline Phosphatase 118 H (46-116) U/L Total Protein 8.7 H (6.4-8.2) g/dL Vital Signs Temperature 36.0 C L 06/21/20 07:35 Temperature Source Tympanic 06/21/20 07:35 Pulse 72 06/21/20 07:35 Pulse Rhythm Regular 06/21/20 03:35 Respiratory Rate 18 06/21/20 07:35 Respiratory Effort Non-Labored 06/21/20 03:35 Respiratory Depth Normal 06/21/20 03:35 Respiratory Pattern Normal 06/21/20 03:35 Blood Pressure 104/63 06/21/20 07:35 Blood Pressure Mean 75 06/21/20 02:43 Blood Pressure Position Sitting 06/20/20 23:24 Pulse Oximetry 98 06/21/20 07:35 Oxygen Delivery Method Nasal Cannula 06/21/20 07:35 Oxygen Flow Rate 2 06/21/20 07:35 Pain Level 0 06/21/20 07:35 Intake & Output 06/20/20 06/21/20 06/21/20 23:59 11:59 23:59 Intake Total 2077.917 / 2077.917 Output Total 700 / 700 Balance 1377.917 / 1377.917 Weight 79.379 kg 79.379 kg Intake: IV 1957.917 / 1957.917 Oral 120 / 120 Output: Urine 700 / 700 Other: Urine Color Light [place] Urine Appearance Cloudy Urine Odor None Stool Size Large Stool Characteristics Liquid Soft Formed Brown Emesis Description Retching Bile Laboratory Results WBC 9.46 10^3/uL (4.4-10.8) D 06/21/20 07:10 RBC 4.64 10^6/uL (3.93-5.22) 06/21/20 07:10 Hgb 13.7 g/dL (11.2-15.7) D 06/21/20 07:10 Hct 42.6 % (36.0-46.0) 06/21/20 07:10 MCV 91.8 fL (80-95) 06/21/20 07:10 MCH 29.5 pg (27.0-33.0) 06/21/20 07:10 MCHC 32.2 % (32.0-36.0) 06/21/20 07:10 RDW 14.5 % (11.7-14.6) 06/21/20 07:10 Plt Count 285 10^3/uL (130-400) 06/21/20 07:10 MPV 10.3 fL (8.0-11.0) 06/21/20 07:10 Immature Gran % 0.3 06/21/20 07:10 Neutrophils % 65.7 06/21/20 07:10 Lymphocytes % 24.3 06/21/20 07:10 Atypical Lymphs % 6 06/20/20 23:30 Monocytes % 7.2 06/21/20 07:10 Eosinophils % 2.2 06/21/20 07:10 Basophils % 0.3 06/21/20 07:10 Nucleated RBC % 0 % 06/21/20 07:10 Absolute Neutrophils 6.22 10^3/uL (1.2-6.7) 06/21/20 07:10 Absolute Lymphocytes 2.30 10^3/uL (1.2-3.4) 06/21/20 07:10 Absolute Monocytes 0.68 10^3/uL (0.1-0.8) 06/21/20 07:10 Absolute Eosinophils 0.21 10^3/uL (0.0-0.7) 06/21/20 07:10 Absolute Basophils 0.03 10^3/uL (0.0-0.2) 06/21/20 07:10 Sodium 139 mmol/L (136-145) 06/21/20 07:10 Potassium 3.7 mmol/L (3.5-5.1) 06/21/20 07:10 Chloride 102 mmol/L (98-107) 06/21/20 07:10 Carbon Dioxide 28.1 mmol/L (21.0-32.0) 06/21/20 07:10 Anion Gap 8.9 mmol/L (3-11) 06/21/20 07:10 BUN 21 mg/dL (7-18) H 06/21/20 07:10 Creatinine 1.19 mg/dL (0.55-1.02) H 06/21/20 07:10 Estimated GFR/1.73 m2 45.11 (mL/min/1.73m2) 06/21/20 07:10 Glucose 147 mg/dL (74-106) H 06/21/20 07:10 Calcium 9.2 mg/dL (8.5-10.1) 06/21/20 07:10 Magnesium 2.0 mg/dL (1.8-2.4) 06/20/20 23:30 Total Bilirubin 0.9 mg/dL (0.2-1.0) 06/20/20 23:30 AST 15 U/L (15-37) 06/20/20 23:30 ALT 25 U/L (14-59) 06/20/20 23:30 Alkaline Phosphatase 118 U/L (46-116) H 06/20/20 23:30 Troponin I < 0.05 ng/mL (<0.06) 06/20/20 23:30 Total Protein 8.7 g/dL (6.4-8.2) H 06/20/20 23:30 Albumin 4.2 g/dL (3.4-5.0) 06/20/20 23:30 COVID-19 PCR Cancelled 06/21/20 00:06 Nasopharyn COVID-19 PCR Cancelled 06/21/20 00:06 Urine Legionella Ag Cancelled 06/20/20 23:55 Ref Test Perform Site Cancelled 06/21/20 00:06
[2020-06-21] MEDS: Promethazine 25 MG TAB 12.5 MG PO ×2 (14:34→21:31)
[2020-06-21 15:29] VITALS: BP 96/42; PULSE 75; RESP 18; TEMP 36.7; O2SAT 97
[2020-06-21] MEDS: Insulin Aspart 300 UNITS/3 ML PEN SC ×2 (17:24→21:33)
--- NOTE | 2020-06-21 19:15 | RT.EKG_ITS ---
APPROVED REPORT Exam: Resting ECG Patient Location: I HR:68 bpm ECG Measurements Heart Rate 68 AXIS AZ 163 P 70 QRSd 100 QRS -8 QT 439 T 55 QTc 469 Conclusion Sinus rhythm...normal P axis, V-rate 60- 99
[2020-06-21 19:44] VITALS: BP 106/68; PULSE 72; RESP 18; TEMP 36.2; O2SAT 97
--- NOTE | 2020-06-21 21:31 | W.PM.PROGNOT ---
Date of Service Date of service: 06/21/20 Time of Service: 20:31 Assessment and Plan Assessment and plan (1) Chest wall pain: Status: Acute Assessment and plan: Chest pain is atypical nonexertional. It is reproducible with palpation along the superior chest wall. It is triggered by arm movements. This all suggest a musculoskeletal etiology. EKG is normal sinus rhythm with no ST changes. Reassured. I do not think additional cardiac work-up is necessary at this point. And use acetaminophen or topical analgesia as needed. Subjective Subjective Interval history since last seen: Called by nursing for chest pain. Patient states his been having off and on all day. Sharp and left-sided. Worse with left arm in certain positions. Last for about 5 minutes. Not associated with dizziness or shortness of breath. Not exertional. Exam Const General: comfortable and no acute distress Chest Chest: normal inspection of the chest and tenderness (Focally tender in the left sternal clavicle joint and along the chest wall ) Resp Effort & Inspection: normal respiratory effort and able to speak in complete sentences Auscultation: clear to auscultation bilaterally Objective Objective Clinical Data: Abnormal lab results 06/20/20 06/20/20 06/21/20 Range/Units 23:30 23:30 07:10 WBC 14.71 H (4.4-10.8) 10^3/uL RBC 5.77 H (3.93-5.22) 10^6/uL Hgb 17.0 H (11.2-15.7) g/dL Hct 52.5 H (36.0-46.0) % Absolute Neutrophils 8.83 H (1.2-6.7) 10^3/uL Absolute Lymphocytes 5.15 H (1.2-3.4) 10^3/uL Anion Gap 17.4 H (3-11) mmol/L BUN 25 H 21 H (7-18) mg/dL Creatinine 1.64 H 1.19 H (0.55-1.02) mg/dL Glucose 185 H 147 H (74-106) mg/dL Calcium 10.7 H (8.5-10.1) mg/dL Alkaline Phosphatase 118 H (46-116) U/L Total Protein 8.7 H (6.4-8.2) g/dL Vital Signs Temperature 36.7 C 06/21/20 15:29 Temperature Source Tympanic 06/21/20 15:29 Pulse 75 06/21/20 15:29 Pulse Rhythm Regular 06/21/20 08:00 Respiratory Rate 18 06/21/20 15:29 Respiratory Effort 06/21/20 08:00 Respiratory Depth Normal 06/21/20 08:00 Respiratory Pattern Normal 06/21/20 08:00 Blood Pressure 96/42 L 06/21/20 15:29 Blood Pressure Mean 75 06/21/20 02:43 Blood Pressure Position Sitting 06/20/20 23:24 Pulse Oximetry 97 06/21/20 15:29 Oxygen Delivery Method Nasal Cannula 06/21/20 15:29 Oxygen Flow Rate 2 06/21/20 15:29 Pain Level 0 06/21/20 15:29 Comment 06/21/20 15:29 Intake & Output 06/20/20 06/21/20 06/21/20 23:59 11:59 23:59 Intake Total 2077.917 / 2982.084 904.167 / 2982.084 Output Total 700 / 700 Balance 1377.917 / 2282.084 904.167 / 2282.084 Weight 79.379 kg 79.379 kg Intake: IV 1957.917 / 2862.084 904.167 / 2862.084 Oral 120 / 120 Output: Urine 700 / 700 Other: Urine Color Light [place] Urine Appearance Cloudy Urine Odor None Stool Size Large Stool Characteristics Liquid Soft Formed Brown Emesis Description Retching Bile Laboratory Results WBC 9.46 10^3/uL (4.4-10.8) D 06/21/20 07:10 RBC 4.64 10^6/uL (3.93-5.22) 06/21/20 07:10 Hgb 13.7 g/dL (11.2-15.7) D 06/21/20 07:10 Hct 42.6 % (36.0-46.0) 06/21/20 07:10 MCV 91.8 fL (80-95) 06/21/20 07:10 MCH 29.5 pg (27.0-33.0) 06/21/20 07:10 MCHC 32.2 % (32.0-36.0) 06/21/20 07:10 RDW 14.5 % (11.7-14.6) 06/21/20 07:10 Plt Count 285 10^3/uL (130-400) 06/21/20 07:10 MPV 10.3 fL (8.0-11.0) 06/21/20 07:10 Immature Gran % 0.3 06/21/20 07:10 Neutrophils % 65.7 06/21/20 07:10 Lymphocytes % 24.3 06/21/20 07:10 Atypical Lymphs % 6 06/20/20 23:30 Monocytes % 7.2 06/21/20 07:10 Eosinophils % 2.2 06/21/20 07:10 Basophils % 0.3 06/21/20 07:10 Nucleated RBC % 0 % 06/21/20 07:10 Absolute Neutrophils 6.22 10^3/uL (1.2-6.7) 06/21/20 07:10 Absolute Lymphocytes 2.30 10^3/uL (1.2-3.4) 06/21/20 07:10 Absolute Monocytes 0.68 10^3/uL (0.1-0.8) 06/21/20 07:10 Absolute Eosinophils 0.21 10^3/uL (0.0-0.7) 06/21/20 07:10 Absolute Basophils 0.03 10^3/uL (0.0-0.2) 06/21/20 07:10 Sodium 139 mmol/L (136-145) 06/21/20 07:10 Potassium 3.7 mmol/L (3.5-5.1) 06/21/20 07:10 Chloride 102 mmol/L (98-107) 06/21/20 07:10 Carbon Dioxide 28.1 mmol/L (21.0-32.0) 06/21/20 07:10 Anion Gap 8.9 mmol/L (3-11) 06/21/20 07:10 BUN 21 mg/dL (7-18) H 06/21/20 07:10 Creatinine 1.19 mg/dL (0.55-1.02) H 06/21/20 07:10 Estimated GFR/1.73 m2 45.11 (mL/min/1.73m2) 06/21/20 07:10 Glucose 147 mg/dL (74-106) H 06/21/20 07:10 Calcium 9.2 mg/dL (8.5-10.1) 06/21/20 07:10 Magnesium 2.0 mg/dL (1.8-2.4) 06/20/20 23:30 Total Bilirubin 0.9 mg/dL (0.2-1.0) 06/20/20 23:30 AST 15 U/L (15-37) 06/20/20 23:30 ALT 25 U/L (14-59) 06/20/20 23:30 Alkaline Phosphatase 118 U/L (46-116) H 06/20/20 23:30 Troponin I < 0.05 ng/mL (<0.06) 06/20/20 23:30 Total Protein 8.7 g/dL (6.4-8.2) H 06/20/20 23:30 Albumin 4.2 g/dL (3.4-5.0) 06/20/20 23:30 Stool Campylobacter PCR Cancelled 06/21/20 00:05 Stool Salmonella PCR Cancelled 06/21/20 00:05 Stool Shigella PCR Cancelled 06/21/20 00:05 COVID-19 PCR Cancelled 06/21/20 02:55 Nasopharyn COVID-19 PCR Cancelled 06/21/20 02:55 Urine Legionella Ag Cancelled 06/20/20 23:55 Shiga Toxin (PCR) Cancelled 06/21/20 00:05 Ref Test Perform Site Cancelled 06/21/20 02:55
[2020-06-21] MEDS: Simvastatin 40 MG TAB PO (21:32)
[2020-06-21] MEDS: Acetaminophen 325 MG TAB 650 MG PO (21:32)
[2020-06-21] MEDS: Insulin Glargine 300 UNITS/3 ML PEN 60 UNITS SC (21:33)
[2020-06-22] MEDS: Lactated Ringers 1,000 ML 125 ML IV ×2 (01:11→09:21)
[2020-06-22 03:40] VITALS: BP 103/57; PULSE 62; RESP 18; TEMP 36; O2SAT 98
[2020-06-22 07:03] LABS: Abs Immature Grans 0.01 10^3/uL (0.0-0.06); Absolute Basophil Count 0.04 10^3/uL (0.0-0.2); Absolute Eosinophil Count 0.27 10^3/uL (0.0-0.7); Absolute Lymphocyte Count 2.05 10^3/uL (1.2-3.4); Absolute Monocyte Count 0.57 10^3/uL (0.1-0.8); Absolute Neutrophil Count 3.33 10^3/uL (1.2-6.7); Basophils % 0.6; Eosinophils % 4.3; HCT 41.1 % (36.0-46.0); HGB 13.1 g/dL (11.2-15.7); Immature Grans % 0.2; Lymphocytes % 32.7; MCH 29.4 pg (27.0-33.0); MCHC 31.9 % (32.0-36.0); MCV 92.4 fL (80-95); MPV 10.2 fL (8.0-11.0); Monocytes % 9.1; Neutrophils % 53.1; Nucleated RBC 0 %; Platelet Count 230 10^3/uL (130-400); RBC 4.45 10^6/uL (3.93-5.22); RDW 14.6 % (11.7-14.6); RDW-SD 49.5 fL; WBC 6.27 10^3/uL (4.4-10.8)
[2020-06-22 07:16] LABS: Anion Gap 5.5 mmol/L (3-11); BUN 19 mg/dL (7-18); CO2 31.5 mmol/L (21.0-32.0); CREATININE 1.45 mg/dL (0.55-1.02); Chloride 106 mmol/L (98-107); Estimated GFR 35.91 (mL/min/1.73m2); Glucose 164 mg/dL (74-106); Magnesium 1.9 mg/dL (1.8-2.4); Potassium 3.9 mmol/L (3.5-5.1); Sodium 143 mmol/L (136-145)
[2020-06-22 07:31] VITALS: BP 100/52; PULSE 78; RESP 18; TEMP 35.6; O2SAT 98
[2020-06-22] MEDS: Enoxaparin 30 MG/0.3 ML SYR SC (07:49)
[2020-06-22] MEDS: Pantoprazole 40 MG TABCR PO (07:50)
[2020-06-22] MEDS: Insulin Aspart 300 UNITS/3 ML PEN SC ×4 (07:50→21:55)
[2020-06-22 08:29] LABS: COVID-19 RT-PCR UVMMC Result Negative
[2020-06-22] MEDS: Tiotropium/Olodaterol 10 PUFF INHALER IH (11:14)
[2020-06-22 11:17] VITALS: O2SAT 98
[2020-06-22] MEDS: Escitalopram 10 MG TAB PO (12:08)
--- NOTE | 2020-06-22 13:48 | PGE_ITS ---
Date of Service Date of service: 06/22/20 Time of Service: 13:48 Assessment and Plan Assessment and plan (1) Acute kidney injury superimposed on chronic kidney disease: Status: Acute Assessment and plan: Due to diarrhea, cardiorenal component of pulmonary hypertension, possible contrast nephropathy from CT with contrast on 06/20/2020. Decrease the rate of IVF, but continue them. Consider renal US if Cr is worse tomorrow. (2) Acute on chronic congestive heart failure with right ventricular diastolic dysfunction: Status: Acute Assessment and plan: EF preserved, does have known R-sided failure. The patient developed a dry cough which could be due to CHF. Decrease the rate of IVF, check CXR. Check proBNP, procalcitonin to ensure that the issue is purely fluid. COVID-19 negative on this admission. (3) Diarrhea: Status: Resolved Assessment and plan: Due to an expected side effect of nintedanib. Discussed the case with patient's agricultural engineering teacher, Dr Suarez, who recommended to hold nintedanib on discharge until the patient follows up with her in the office. Diarrhea on nintedanib is diet-dependent and is much worse with large intake of carbohydrates and is much better with protein rich diet. Dr Suarez will contact the pharmaceutical company with request for nursing education re diet. I have also consulted our nutrition. Diarrhea has resolved. (4) Nausea & vomiting: Status: Resolved Assessment and plan: As above (5) Dehydration: Status: Acute Assessment and plan: Due to diarrhea/n/v. Continue IVF (decrease rate). (6) Chest wall pain: Status: Resolved Assessment and plan: I did add on troponin to this am's labs - will follow up. (7) Pulmonary fibrosis: Status: Chronic Assessment and plan: Read discussion re nintedanib above (8) Chronic respiratory failure with hypoxia: Status: Chronic Assessment and plan: Appears to be at baseline. Will need exercise oximetry prior to discharge. (9) COPD (chronic obstructive pulmonary disease): Status: Chronic Assessment and plan: Oxygen-dependent. As above - checking CXR, procalcitonin due to the new cough. (10) Type II diabetes mellitus, uncontrolled: Status: Chronic Assessment and plan: BGs reasonable here. No plan to change outpatient insulins on discharge. Qualifiers: Glycemic state: with hyperglycemia Qualified Code(s): E11.65 - Type 2 diabetes mellitus with hyperglycemia (11) Gastroesophageal reflux disease without esophagitis: Status: Chronic Assessment and plan: Continue PPI (12) Discharge planning issues: Status: Acute Assessment and plan: Full code Admit to inpatient status. PT consulted. Plan for discharge home tomorrow assuming that Cr improves. (13) DVT prophylaxis: Status: Acute Assessment and plan: BARRY dumontnox Subjective Subjective Interval history since last seen: Ms Pina states that she is a little nauseated today, but no vomiting. No diarrhea since admission, she states. Denies dizziness, states she had an episode of lef-sided chest pain last night, states she is more short of breath today than her baseline. Exam Narrative Exam Narrative: General: Pleasant obese female, A&Ox3, laying comfortably in bed at about 15 degree angle, no dyspnea/tachypnea observed on 2L of O2 (at baseline) HEENT: EOMI, MMM Heart: RRR, no m/r/g Lungs: rhonchi B bases, dry cough Abdomen: soft, nontender, nondistended Extremities: no e/c/c BLE's. Objective Objective Clinical Data: Abnormal lab results 06/22/20 06/22/20 Range/Units 06:40 06:40 MCHC 31.9 L (32.0-36.0) % BUN 19 H (7-18) mg/dL Creatinine 1.45 H (0.55-1.02) mg/dL Glucose 164 H (74-106) mg/dL Vital Signs Temperature 35.6 C L 06/22/20 07:31 Temperature Source Temporal Artery Scan 06/22/20 07:31 Pulse 78 06/22/20 07:31 Pulse Rhythm Regular 06/22/20 10:45 Respiratory Rate 18 06/22/20 07:31 Respiratory Effort Non-Labored 06/22/20 10:45 Respiratory Depth Normal 06/22/20 10:45 Respiratory Pattern Normal 06/22/20 10:45 Blood Pressure 100/52 L 06/22/20 07:31 Blood Pressure Mean 75 06/21/20 02:43 Blood Pressure Position Sitting 06/20/20 23:24 Pulse Oximetry 98 06/22/20 11:17 Oxygen Delivery Method Nasal Cannula 06/22/20 11:17 Oxygen Flow Rate 2 06/22/20 11:17 Pain Level 0 06/22/20 07:31 Comment 06/21/20 15:29 Intake & Output 06/21/20 06/22/20 06/22/20 23:59 11:59 23:59 Intake Total 904.167 / 2982.084 2200.000 / 2400.000 200 / 2400.000 Output Total 750 / 750 Balance 904.167 / 2282.084 1450.000 / 1650.000 200 / 1650.000 Weight 80.5 kg Intake: IV 904.167 / 2862.084 2200.000 / 2200.000 Oral 200 / 200 Output: Urine 750 / 750 Other: Urine Color Yellow Yellow Urine Appearance Clear Clear Urine Odor None Normal Voiding Methods Toilet Toilet Laboratory Results WBC 6.27 10^3/uL (4.4-10.8) D 06/22/20 06:40 RBC 4.45 10^6/uL (3.93-5.22) 06/22/20 06:40 Hgb 13.1 g/dL (11.2-15.7) 06/22/20 06:40 Hct 41.1 % (36.0-46.0) 06/22/20 06:40 MCV 92.4 fL (80-95) 06/22/20 06:40 MCH 29.4 pg (27.0-33.0) 06/22/20 06:40 MCHC 31.9 % (32.0-36.0) L 06/22/20 06:40 RDW 14.6 % (11.7-14.6) 06/22/20 06:40 Plt Count 230 10^3/uL (130-400) 06/22/20 06:40 MPV 10.2 fL (8.0-11.0) 06/22/20 06:40 Immature Gran % 0.2 06/22/20 06:40 Neutrophils % 53.1 06/22/20 06:40 Lymphocytes % 32.7 06/22/20 06:40 Atypical Lymphs % 6 06/20/20 23:30 Monocytes % 9.1 06/22/20 06:40 Eosinophils % 4.3 06/22/20 06:40 Basophils % 0.6 06/22/20 06:40 Nucleated RBC % 0 % 06/22/20 06:40 Absolute Neutrophils 3.33 10^3/uL (1.2-6.7) 06/22/20 06:40 Absolute Lymphocytes 2.05 10^3/uL (1.2-3.4) 06/22/20 06:40 Absolute Monocytes 0.57 10^3/uL (0.1-0.8) 06/22/20 06:40 Absolute Eosinophils 0.27 10^3/uL (0.0-0.7) 06/22/20 06:40 Absolute Basophils 0.04 10^3/uL (0.0-0.2) 06/22/20 06:40 Sodium 143 mmol/L (136-145) 06/22/20 06:40 Potassium 3.9 mmol/L (3.5-5.1) 06/22/20 06:40 Chloride 106 mmol/L (98-107) 06/22/20 06:40 Carbon Dioxide 31.5 mmol/L (21.0-32.0) 06/22/20 06:40 Anion Gap 5.5 mmol/L (3-11) 06/22/20 06:40 BUN 19 mg/dL (7-18) H 06/22/20 06:40 Creatinine 1.45 mg/dL (0.55-1.02) H 06/22/20 06:40 Estimated GFR/1.73 m2 35.91 (mL/min/1.73m2) 06/22/20 06:40 Glucose 164 mg/dL (74-106) H 06/22/20 06:40 Calcium 9.0 mg/dL (8.5-10.1) 06/22/20 06:40 Magnesium 1.9 mg/dL (1.8-2.4) 06/22/20 06:40 Total Bilirubin 0.9 mg/dL (0.2-1.0) 06/20/20 23:30 AST 15 U/L (15-37) 06/20/20 23:30 ALT 25 U/L (14-59) 06/20/20 23:30 Alkaline Phosphatase 118 U/L (46-116) H 06/20/20 23:30 Troponin I < 0.05 ng/mL (<0.06) 06/20/20 23:30 Total Protein 8.7 g/dL (6.4-8.2) H 08/29/20 23:30 Albumin 4.2 g/dL (3.4-5.0) 06/20/20 23:30 Stool Campylobacter PCR Cancelled 06/21/20 00:05 Stool Salmonella PCR Cancelled 06/21/20 00:05 Stool Shigella PCR Cancelled 06/21/20 00:05 COVID-19 PCR Cancelled 06/21/20 02:55 COVID-19 PCR Negative 06/21/20 02:55 Nasopharyn COVID-19 PCR Cancelled 06/21/20 02:55 Nasopharyn COVID-19 PCR Not Applicable 06/21/20 02:55 Cryptosporidium/Giardia Cancelled 06/20/20 23:55 Urine Legionella Ag Cancelled 06/20/20 23:55 Shiga Toxin (PCR) Cancelled 06/21/20 00:05 Ref Test Perform Site Cancelled 06/21/20 02:55 Ref Test Perform Site [place] [facility] 06/21/20 02:55
[2020-06-22] MEDS: Ondansetron 4 MG/2 ML VIAL IVP (13:57)
--- NOTE | 2020-06-22 14:01 | DI.RAD_ITS ---
EXAM: XR PORTABLE CHEST AP CLINICAL HISTORY: shortness of breath TECHNIQUE: 2D digital imaging was performed. COMPARISON: CR XR PORTABLE CHEST AP from 03/15/2019 CR XR CHEST 2V PA LATERAL from 09/30/2019 CR XR CHEST 2V PA LATERAL from 09/30/[address] CHEST WO from 06/21/2020 FINDINGS: There is poor inspiration. MEDIASTINUM: Normal. HEART: Normal. PULMONARY VASCULATURE: Normal. LUNGS: Increased lung markings in the right upper perihilar region. This may represent atelectasis o r pneumonia. PLEURAL SPACE: No pleural effusion or pneumothorax. BONE:Within normal limits for the patient's age. OTHER FINDINGS:Normal. IMPRESSION: Increased lung markings in the right perihilar region. This may represent atelectasis or pneumonia. Please correlate clinically. DATA REPOSITORY: RADIATION DOSE DELIVERED:
--- NOTE | 2020-06-22 14:21 | CHAPLAIN ---
Elly was resting in bed when I visited. She said her brother, Brian Ye, is also a patient here, but Brian doesn't know that Elly is here. Elly explained that she is having more tests today and being discharged tomorrow.
[2020-06-22 14:47] LABS: Troponin I < 0.05 ng/mL (<0.06)
[2020-06-22 15:04] LABS: NT-proBNP 141 pg/mL (<300)
[2020-06-22 15:15] VITALS: BP 112/69; BP 119/76; BP 123/72; PULSE 62; PULSE 64; PULSE 65
[2020-06-22 15:28] LABS: Procalcitonin < 0.1 ng/mL
--- NOTE | 2020-06-22 15:41 | RESPIRATORY ---
Oxygen walk was started today on patients baseline of 2L NC. At the start of walk, patient's HR 66, RR 12 SpO2 99% on 2L NC. Within 50ft of the walk, HR was 78-85 and SpO2 dropped to 86% in which she was then placed on 3L then 4L. Patient rested for about 2min then proceeded to finish the walk on 4L. During the walk, HR ranged from 85-94, RR 24 and SpO2 92%-95% on 4L NC. Between nursing station and patients room, her SpO2 dropped to 88% and then once in room sat on bed to recover. It took about 7min to recover from walk, final vitals were: HR 66, RR 16 and SpO2 97% on 2L NC. Once patient was settled, she stated the last bit of walk she was seeing stars. Throughout walk, RT checked continuously with patient to see if she was ok. Patient reported whole walk she was ok and fine, Nursing was told about walk.
--- NOTE | 2020-06-22 16:02 | NUR.NOTE ---
Nursing Note: At 1515 the RT reported to me that my patient stated she was seeing stars/dizzy at the end of their walk. Did orthostatic vitals (see chart). Pt reports symptoms have subsided.
[2020-06-22 16:09] VITALS: BP 119/71; PULSE 66; RESP 17; TEMP 36.9; O2SAT 98
[2020-06-22] MEDS: Normal Saline Flush 10 ML SYR IVP (16:36)
[2020-06-22] MEDS: Furosemide 20 MG/2 ML VIAL IVP (16:36)
--- NOTE | 2020-06-22 19:33 | INITIAL_ITS ---
- If Service Date Differs Date of service: 06/22/20 Time of Service: 19:33 Care Management Initial Assess REASON FOR HOSPITALIZATION:: Vomiting, Diarrhea, Dehydration PAST MEDICAL HISTORY/PAST SURGICAL HISTORY:: Medical History . Abdominal pain (Resolved). Acute gastroenteritis (Resolved 03/16/18). Acute kidney injury (nontraumatic) (Resolved). Acute pneumonitis (Inactive). Anxiety (Chronic 03/16/18). Asthma (Chronic). Asthma (Chronic). Back pain (Chronic). CHF (congestive heart failure) (Chronic). Chronic constipation (Chronic 03/16/18). Cognitive impairment (Chronic 03/16/18). Mild, w/Memory Loss. Cubital tunnel syndrome (Resolved 03/16/18). Depressive disorder (Chronic). DKA (diabetic ketoacidoses) (Resolved). Dyspnea (Chronic 03/16/18). Edema (Chronic 03/16/18). Essential hypertension (Chronic 07/17/13). Gastroesophageal reflux disease without esophagitis (Chronic 03/16/18). History of shingles (Resolved 03/16/18). Hyperlipemia (Acute). Insulin dependent diabetes mellitus (Chronic). Internal derangement of right knee (Chronic). Interstitial lung disease (Chronic 03/16/18). Pulm: Bertin. Long-term use of high-risk medication (Chronic 03/16/18). Metabolic acidosis with normal anion gap and bicarbonate losses (Resolved). Migraine (Chronic 04/03/14). Neck pain (Chronic 03/16/18). 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 Osteoporosis (Chronic 03/16/18). Peripheral neuralgia (Chronic). Post herpetic neuralgia (Chronic 03/16/18). Sepsis (Resolved). Shoulder pain (Chronic). left- surgery. Total urinary incontinence (Chronic). Type II diabetes mellitus, uncontrolled (Chronic). Umbilical hernia (Chronic). Surgical History . Appendectomy. Arthroscopy, Shoulder. left. Bilateral salpingectomy with oophorectomy. section. Cholecystectomy. Age 20. . History of section (Inactive). Ligation of fallopian tube. Thoracoscopic (R)Lung Bx (02/12/18) PREVIOUS FUNCTIONAL STATUS/SOCIAL/FAMILY SUPPORTS:: [facility] Her grand daughter, Sumi is living with her currently, who is struggling with her mental health. Her son Himanshu lives locally and is supportive. She has five grand children. She has had three marriages and is . She is independent at baseline. CURRENT FUNCTIONAL STATUS:: Elly was sitting up on the edge of her bed when CM met with her. She reported that she was feeling ok today, and was not sure when she would be ready for discharge. She reported that she had some tests today, which may determine her discharge plan. CM will continue to follow. ADVANCE DIRECTIVES:: [facility] on file. Has patient been provided with info about the portal/API?: Yes Did the patient sign up for the portal?: Yes (previously signed up) CODE STATUS:: Full Code INSURANCE COVERAGE / FINANCIAL ISSUES:: MCR/ [employer] CURRENT HOME/COMMUNITY SERVICES/EQUIPMENT:: [facility], Diabetic supplies; insulin dependent, Motorized wheelchair, FWW, Home O2 PRIMARY CARE PHYSICIAN:: Mario Garcia POTENTIAL DISCHARGE NEEDS:: Evaluations for further needs, follow up appointments. PATIENT/FAMILY EDUCATION NEEDS:: Review of discharge instructions, discuss Ask Me Three. ANTICIPATED BARRIERS TO DISCHARGE:: None identified at this time. TRANSPORTATION:: Anticipate [facility] w/c van PLAN:: Anticipate Elly will return home when medically cleared. Evaluations will be made to determine need of services upon discharge. She may need new orders for services at home. Transportation home via [facility]. She will follow up with her PCP and discharge plan of care. CM will continue to follow.
[2020-06-22 19:37] VITALS: BP 118/75; PULSE 70; RESP 18; TEMP 36.8; O2SAT 96
[2020-06-22] MEDS: Benzonatate 100 MG CAP PO (20:17)
[2020-06-22] MEDS: Promethazine 25 MG TAB 12.5 MG PO (20:17)
[2020-06-22] MEDS: Simvastatin 40 MG TAB PO (21:55)
[2020-06-22] MEDS: Insulin Glargine 300 UNITS/3 ML PEN 60 UNITS SC (21:56)
[2020-06-23 00:32] LABS: Legionella Ag Detection Urine Negative (Negative)
[2020-06-23 03:16] VITALS: BP 101/64; PULSE 74; RESP 18; TEMP 36; O2SAT 96
[2020-06-23 07:35] VITALS: BP 137/71; PULSE 77; RESP 17; TEMP 36.7; O2SAT 97
[2020-06-23 07:36] LABS: Abs Immature Grans 0.03 10^3/uL (0.0-0.06); Absolute Basophil Count 0.05 10^3/uL (0.0-0.2); Absolute Lymphocyte Count 1.98 10^3/uL (1.2-3.4); Absolute Monocyte Count 0.68 10^3/uL (0.1-0.8); Basophils % 0.6; Eosinophils % 4.8; HCT 39.3 % (36.0-46.0); HGB 12.8 g/dL (11.2-15.7); Immature Grans % 0.4; Lymphocytes % 23.9; MCH 29.8 pg (27.0-33.0); MCHC 32.6 % (32.0-36.0); MCV 91.6 fL (80-95); Monocytes % 8.2; Neutrophils % 62.1; Nucleated RBC 0 %; Platelet Count 248 10^3/uL (130-400); RBC 4.29 10^6/uL (3.93-5.22); RDW 14.5 % (11.7-14.6); RDW-SD 49.1 fL
[2020-06-23 07:42] LABS: Absolute Neutrophil Count 5.14 10^3/uL (1.2-6.7); WBC 8.27 10^3/uL (4.4-10.8)
[2020-06-23 07:47] LABS: Anion Gap 7.3 mmol/L (3-11); BUN 20 mg/dL (7-18); CO2 30.7 mmol/L (21.0-32.0); CREATININE 1.19 mg/dL (0.55-1.02); Calcium 9.1 mg/dL (8.5-10.1); Chloride 103 mmol/L (98-107); Estimated GFR 45.11 (mL/min/1.73m2); Glucose 145 mg/dL (74-106); Magnesium 1.6 mg/dL (1.8-2.4); Potassium 3.3 mmol/L (3.5-5.1); Sodium 141 mmol/L (136-145)
[2020-06-23] MEDS: Tiotropium/Olodaterol 10 PUFF INHALER IH (07:55)
[2020-06-23 07:57] VITALS: RESP 16
[2020-06-23] MEDS: Insulin Aspart 300 UNITS/3 ML PEN SC ×2 (08:55→11:44)
[2020-06-23] MEDS: Furosemide 20 MG/2 ML VIAL IVP (08:55)
[2020-06-23] MEDS: Enoxaparin 30 MG/0.3 ML SYR SC (08:55)
[2020-06-23] MEDS: Pantoprazole 40 MG TABCR PO (08:55)
[2020-06-23 09:30] VITALS: PULSE 102; PULSE 87; RESP 20; RESP 28; O2SAT 87; O2SAT 97
--- NOTE | 2020-06-23 11:08 | IN_ITS ---
Date of service: 06/23/20 Time of Service: 10:30 PT Notes Visit Reasons: NAUSEA,VOMITIN,DIARRHEA DUE TO SIDE EFFECT OF MED, Inpatient Physical Therapy Evaluation Date: 06/23/2020 Referring Doctor: Randi Dyer PT Orders: PT CONSULT: Limited Ability Precautions: On O2 Patient Profile/Admitting Diagnosis: Enterititis PMHX: Enteritis, Chronic respiratory failure with hypoxia, COPD, CHF, essential hypertension, Gastroesophageal reflux disease without esophagitis, Type II diabetes mellitus uncontrolled, and Renal insufficiency Social History/Home Situation: Lives alone with 4 BARRIE, has family members avail able Current Functional Limitations: Decreased endurance, weak feeling Equipment Owned/DME: [facility] Subjective: This PT checked with nursing and was given okay to see patient. Elly is resting in bed napping on left side upon entering room. She easily awakens and is agreeable to PT. She states just getting back from a walk. She is on 2L of O2 at baseline. In general she reports feeling weak from her baseline. Patient is discharging home today. Objective: Mental Status: A&Ox3 Pain: None Vital Signs: SaO2 96% on 2L O2 ROM: Right Upper Extremity: WFL Left Upper Extremity: WFL Right Lower Extremity: WFL Left Lower Extremity: WFL Strength: Right Upper Extremity: WNL Left Upper Extremity: Mild impairment in shoulder abduction, flexion, otherwise WNL Right Lower Extremity: WNL Left Lower Extremity: WNL Sensation: Intact Bed Mobility/Transfers: Patient independent with bed mobility and transfers. Uses rail for rolling Gait: Supervision without AD for 150' and 2L O2 Balance: Static Sitting: Good Dynamic Sitting: Good Static Standing: Food Dynamic Standing: Fair Special Tests: Mobility Limitations Standardized Measure [facility] AM-PAC 6 clicks Basic Mobility Inpatient Short Form: Raw Score: 20 [facility] Score: 35.83% Informed Consent/Education: Patient instructed in purpose of PT consult and plan of care. Assessment: Patient is a 69 year old female referred to physical therapy services with the diagnosis of limited mobility. She is independent with bed mobility. Supervision with ambulation, but independent in small bathroom. Some unsteadiness with gait and reports slightly dizzy, seeing black stars at times. No change in SaO2 with activity today. Stairs were not assessed this visit due to patient already having fone walking and not wanting to address additional activity. She has good strength overall with mild impairment of left shoulder. Her balance is challenged in dynamic tasks. Patient presents with clinical signs and symptoms consistent with poor endurance. She is safe to discharge home at this time once medically stable and will have family members to assist when needed. Patient is assessed as a Low [id number] complexity based on the following: History: See above Examination: See above Presentation: Stable Decision Making: Low Plan of Care/Treatment Plan: N/A Patient discharging today DISCHARGE RECOMMENDATIONS: Home with assist TREATMENT CODE/TIME: 10:30-11:03 [id number] (33 minutes)
[2020-06-23] MEDS: Magnesium Oxide 400 MG TAB PO (11:23)
[2020-06-23] MEDS: Spironolactone 25 MG TAB PO (11:23)
[2020-06-23] MEDS: Potassium Chloride 20 MEQ TABCR 40 MEQ PO (11:23)
[2020-06-23] MEDS: Escitalopram 10 MG TAB PO (11:23)
--- NOTE | 2020-06-23 11:24 | W.PM.DS.N ---
Date of service: 06/23/20 Time of Service: 11:24 DS: Diagnosis Discharge Diagnosis (1) Diarrhea: Status: Resolved Asessment and Plan: As side effect of ofev (2) Nausea & vomiting: Status: Resolved (3) Dehydration: Status: Acute (4) Acute kidney injury superimposed on chronic kidney disease: Status: Resolved (5) Acute on chronic congestive heart failure with right ventricular diastolic dysfunction: Status: Acute (6) Gastroesophageal reflux disease without esophagitis: Status: Chronic (7) Chest wall pain: Status: Resolved (8) Pulmonary fibrosis: Status: Chronic (9) Chronic respiratory failure with hypoxia: Status: Chronic (10) COPD (chronic obstructive pulmonary disease): Status: Chronic Asessment and Plan: not in acute exacerbation (11) Type II diabetes mellitus, uncontrolled: Status: Chronic (12) Pulmonary hypertension: Status: Chronic (13) COVID-19 ruled out by laboratory testing: Status: Acute Discharge Plan Disposition Patient Disposition: HOME W/HOME HEALTH SERVICE Condition: Good Discharge Details Chief Complaint: Nausea/Vomit/Diar Clinical Impression: Nausea & vomiting, Dehydration, Enteritis Reason For Visit: NAUSEA,VOMITIN,DIARRHEA DUE TO SIDE EFFECT OF MED, Admit Date/Time: 06/22/20 13:50 Admit Provider: Fabian Christian Attending Provider: Fabian Christian Primary Care Provider: Mario Garcia ED Provider: Facundo Alberto [facility] Course Hospital Course: Ms Pina is a 69 year old female with PMHx of multifactorial chronic hypoxic respiratory failure due to pulmonary fibrosis, COPD, pulmonary hypertension, as well as h/o GERD, who was a patient on [facility] hospitalist service from 06/21/2020 until 06/23/2020 for nausea, vomiting, and diarrhea causing dehydration, all felt to be due to side effects of her outpatient therapy with ofev (nintedanib). The patient, in fact, has had diarrhea ever since being initiated on it in October of 2019, but it did get worse. She was treated with cessation of offending medication and intravenous IV fluids. C. diff was ruled out, but additional stool studies could not be performed because diarrhea (as well nausea, and vomiting) had resolved. She did end up suffering a slight SYD on CKD from dehydration, but this has resolved by the time of discharge. She also had electrolyte abnormalities (hypokalemia, hypomagnesemia), which were addressed. Case was discussed with Dr Santiago, who pointed out that the diarrhea in patients on ofev is very diet dependent, and that this diarrhea gets a lot worse with large amount of carbohydrate intake and much better with protein-rich diet. We have consulted our corporate paralegal to provide the patient with information on such a diet in addition to Dr Santiago making arrangements for the patient to have a conversation with the [employer] company nurse. At the time of discharge, the patient is to stay off of ofev until her follow up with Dr Suarez in the office. On ambulatory pulse ox testing, the patient (who states that she is at her baseline respiratory status) required 4 L of O2 with ambulation and 2 L of O2 at rest to saturate above 88%. New prescription for oxygen written at the time of discharge. The patient is medically stable for discharge with follow up with her PCP and pulmonology. She will need bloodwork by home health in 1 week (BMP, magnesium) - results are to go to PCP (Dr Garcia). She is getting discharged with home health nursing and PT. Care for patient as well as completion of her discharge summary on day of discharge took 45 minutes. Home Meds and New Rx's Prescriptions: New magnesium oxide 400 mg (241.3 mg magnesium) Tablet 400 mg PO DAILY Qty: 10 RF: 0 Continued albuterol sulfate 2.5 mg /3 mL (0.083 %) solution for nebulization 2.5 mg Inhalation Q6H PRN (Reason: shortness of breath or wheezing) Qty: 10 RF: 6 (DME) Wheeled walker with seat and basket Qty: 1 RF: 0 metoclopramide HCl 10 mg tablet 10 mg PO Q6H PRNRF: 0 sucralfate 1 gram tablet 1 gm PO QACHS RF: 0 Januvia 25 mg tablet 25 mg PO QAM Qty: 90 RF: 3 budesonide-formoterol [Symbicort] 160-4.5 mcg/actuation HFA aerosol inhaler 2 puff IH BID RF: 0 clotrimazole 1 % cream 1 applic topical TID Qty: 113 RF: 6 Tresiba FlexTouch U-200 200 unit/mL (3 mL) insulin pen See Rx Instructions SC QHS Qty: 12 RF: 12 (DME) compress.stocking,knee,reg,lrg misc See Dose Instructions .ROUTE .MEDSUPPLY Qty: 2 RF: 0 donepezil 5 mg tablet,disintegrating 5 mg PO DAILY Qty: 30 RF: 11 Shingrix (PF) 50 mcg/0.5 mL suspension for reconstitution 50 mcg IM ONCE Qty: 1 RF: 1 (DME) pen needle, diabetic [Pen Needle] 31 gauge x 5/16 needle 1 ea Miscellaneous QID Qty: 4 RF: 12 albuterol sulfate [Ventolin HFA] 8 GM HFA aerosol inhaler 2 puff Inhalation Q4H PRN Qty: 1 RF: 4 (DME) Oxygen Tank See Dose Instructions .ROUTE .MEDSUPPLY Qty: 1 RF: 0 (DME) Face mask to deliver Oxygen Qty: 2 RF: 6 acidophilus-pectin, citrus 25 million cell -100 mg tablet 1 tab PO TID Qty: 90 RF: 6 cyclobenzaprine 5 mg tablet 5 mg PO TID PRN (Reason: muscle spasm) Qty: 90 RF: 6 (DME) lancets 28 gauge misc 1 ea Miscellaneous TID Qty: 400 RF: 12 benzonatate [Tessalon Perles] 100 mg capsule 100 mg PO BID-TID PRN (Reason: cough) Qty: 90 RF: 3 furosemide 40 mg tablet 40 mg PO DAILY Qty: 30 RF: 3 nystatin 100,000 unit/gram powder 1 applic TP TID Qty: 60 RF: 0 Stiolto Respimat 2.5-2.5 mcg/actuation mist 2 puff IH DAILY RF: 0 (DME) Oxygen Tank See Rx Instructions .ROUTE .MEDSUPPLY Qty: 1 RF: 0 Blister gordon package See Rx Instructions PO RF: 0 insulin lispro [Humalog KwikPen Insulin] 100 unit/mL insulin pen See Rx Instructions SC .per ss Qty: 15 RF: 3 Breo Ellipta 200-25 mcg/dose blister with device 1 inh IH DAILY PRNRF: 0 simvastatin 40 mg tablet 40 mg PO HS Qty: 30 RF: 11 spironolactone 25 mg tablet 25 mg PO DAILY Qty: 30 RF: 11 escitalopram oxalate 10 mg tablet 10 mg PO .NOON Qty: 30 RF: 11 Jardiance 10 mg tablet 10 mg PO QAM Qty: 30 RF: 11 pantoprazole 40 mg tablet,delayed release (DR/EC) 40 mg PO DAILY Qty: 90 RF: 3 (DME) Blood Glucose Test Strip 1 ea Miscellaneous TID Qty: 400 RF: 12 epinephrine [EpiPen 2-Gordon] 0.3 MG/0.3 ML auto-injector 0.3 mg IM ONCE PRNRF: 0 doxycycline hyclate 100 mg capsule 100 mg PO BID Qty: 20 RF: 0 promethazine 12.5 mg tablet 12.5 mg PO TID PRNQty: 10 RF: 0 ketoconazole 2 % Cream 1 applic topical BID Qty: 30 RF: 0 zinc oxide 20 % Ointment 60 g topical PRN PRNQty: 0 RF: 0 vits A and D-white pet-lanolin Ointment 60 g topical PRN PRNQty: 0 RF: 0 Discontinued Ofev 150 mg capsule 150 mg PO Q12H PRNRF: 0 Discharge Instructions Instructions: Dehydration (DC), High Protein Diet (DC) Additional Instructions: Do not take ofev until following up with Dr Santiago in the office. Return to the hospital with any fever, bleeding, chest pain, or worsening shortness of breath. Your oxygen prescription has changed to 2L of oxygen at rest and 4L with activity. Follow a high protein diet as instructed. Care Plan Goals: Home with home health nursing and PT. Referrals: Mone Santiago MD [ NON-[facility] STAFF PHYSICIAN] - Mario Garcia DO [Primary Care Provider] - Activity:: Activity as Tolerated Equipment/Supplies:: No Equipment Needed Diet:: high protein diet Discharge Orders Discharge Orders: Discharge Order (Routine); Ordered 06/23/20 Ordered By: Randi Dyer DS: Summary Status at Discharge Functional status at discharge: independent ambulation Overall status at discharge: patient is back to baseline Mental Status: mental status grossly normal Speech and Movement: speech and movement normal Mood: congruent mood Affect: normal affect Exam Narrative Exam Narrative: General: Pleasant obese female, A&Ox3, appears to be at her baseline - not dyspneic/tachypneic HEENT: EOMI, MMM Heart: RRR, no m/r/g Lungs: quiet rales at B bases, very slight Abdomen: soft, nontender, nondistended Extremities: no e/c/c BLE's. Psych Mental Status: mental status grossly normal Speech and Movement: speech and movement normal Mood: congruent mood Affect: normal affect DS: Data Vitals/I&O Vitals and I&O: Vital Signs Temperature 36.7 C 06/23/20 07:35 Temperature Source Tympanic 06/23/20 07:35 Pulse 77 06/23/20 07:35 Pulse Rhythm Regular 06/23/20 09:39 Respiratory Rate 16 06/23/20 07:57 Respiratory Effort 06/23/20 09:39 Respiratory Depth Normal 06/23/20 09:39 Respiratory Pattern Normal 06/23/20 09:39 Blood Pressure 137/71 06/23/20 07:35 Blood Pressure Mean 75 06/21/20 02:43 Blood Pressure Position Sitting 06/20/20 23:24 Pulse Oximetry 97 06/23/20 07:35 Oxygen Delivery Method Nasal Cannula 06/23/20 07:35 Oxygen Flow Rate 2 06/23/20 07:35 Pain Level 6 06/23/20 07:35 Comment 06/21/20 15:29 Intake & Output 06/22/20 06/22/20 06/23/20 11:59 23:59 11:59 Intake Total 2200.000 / 3105.000 905.0 / 3105.000 120 / 120 Output Total 750 / 2150 1400 / 2150 1600 / 1600 Balance 1450.000 / 955.000 -495.0 / 955.000 -1480 / -1480 Weight 80.5 kg 79.9 kg Intake: IV 2200.000 / 2725.000 525.0 / 2725.000 Oral 380 / 380 120 / 120 Output: Urine 750 / 2150 1400 / 2150 1600 / 1600 Other: Urine Color Yellow Yellow Yellow Urine Appearance Clear Clear Clear Urine Odor Normal None Normal Voiding Methods Toilet Toilet Toilet Data Completed and Pending Completed studies during hospitalization [Text1]: CXR 06/22/2020: Increased lung markings in the right perihilar region. This may represent atelectasis or pneumonia. Please correlate clinically. (per my read, this CXR was more consistent with slight fluid overload). CT chest 06/21/2020: Chronic interstitial lung disease. In the correct clinical setting, a superimposed acute interstitial process would be difficult to exclude. CT abdomen/pelvis without contrast 06/20/2020: Findings suspicious for a mild inflammatory infectious enteritis. Labs on day of discharge: Labs from last 24 hours 06/23/20 06/23/20 06/22/20 07:10 07:10 14:26 WBC 8.27 D RBC 4.29 Hgb 12.8 Hct 39.3 MCV 91.6 MCH 29.8 MCHC 32.6 RDW 14.5 Plt Count 248 MPV 10.0 Immature Gran % 0.4 Neutrophils % 62.1 Lymphocytes % 23.9 Monocytes % 8.2 Eosinophils % 4.8 Basophils % 0.6 Nucleated RBC % 0 Absolute Neutrophils 5.14 Absolute Lymphocytes 1.98 Absolute Monocytes 0.68 Absolute Eosinophils 0.40 Absolute Basophils 0.05 Sodium 141 Potassium 3.3 L Chloride 103 Carbon Dioxide 30.7 Anion Gap 7.3 BUN 20 H Creatinine 1.19 H Estimated GFR/1.73 m2 45.11 Glucose 145 H Calcium 9.1 Magnesium 1.6 L Troponin I NT-Pro-B Natriuret Pep Procalcitonin < 0.1 Cryptosporidium/Giardia Urine Legionella Ag 06/22/20 06/22/20 06/21/20 14:26 06:40 10:00 WBC RBC Hgb Hct MCV MCH MCHC RDW Plt Count MPV Immature Gran % Neutrophils % Lymphocytes % Monocytes % Eosinophils % Basophils % Nucleated RBC % Absolute Neutrophils Absolute Lymphocytes Absolute Monocytes Absolute Eosinophils Absolute Basophils Sodium Potassium Chloride Carbon Dioxide Anion Gap BUN Creatinine Estimated GFR/1.73 m2 Glucose Calcium Magnesium Troponin I < 0.05 NT-Pro-B Natriuret Pep 141 Procalcitonin Cryptosporidium/Giardia Urine Legionella Ag Negative 06/20/20 23:55 WBC RBC Hgb Hct MCV MCH MCHC RDW Plt Count MPV Immature Gran % Neutrophils % Lymphocytes % Monocytes % Eosinophils % Basophils % Nucleated RBC % Absolute Neutrophils Absolute Lymphocytes Absolute Monocytes Absolute Eosinophils Absolute Basophils Sodium Potassium Chloride Carbon Dioxide Anion Gap BUN Creatinine Estimated GFR/1.73 m2 Glucose Calcium Magnesium Troponin I NT-Pro-B Natriuret Pep Procalcitonin Cryptosporidium/Giardia See below Urine Legionella Ag [facility] Medical History Abdominal pain (Resolved) Acute gastroenteritis (Resolved 03/16/18) Acute kidney injury (nontraumatic) (Resolved) Acute pneumonitis (Inactive) Anxiety (Chronic 03/16/18) Asthma (Chronic) Asthma (Chronic) Back pain (Chronic) CHF (congestive heart failure) (Chronic) Chronic constipation (Chronic 03/16/18) Cognitive impairment (Chronic 03/16/18) Mild, w/Memory Loss Cubital tunnel syndrome (Resolved 03/16/18) Depressive disorder (Chronic) DKA (diabetic ketoacidoses) (Resolved) Dyspnea (Chronic 03/16/18) Edema (Chronic 03/16/18) Essential hypertension (Chronic 07/17/13) Gastroesophageal reflux disease without esophagitis (Chronic 03/16/18) History of shingles (Resolved 03/16/18) Hyperlipemia (Acute) Insulin dependent diabetes mellitus (Chronic) Internal derangement of right knee (Chronic) Interstitial lung disease (Chronic 03/16/18) Pulm: Bertin Long-term use of high-risk medication (Chronic 03/16/18) Metabolic acidosis with normal anion gap and bicarbonate losses (Resolved) Migraine (Chronic 04/03/14) Neck pain (Chronic 03/16/18) 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 History of section (Inactive) Ligation of fallopian tube Thoracoscopic (R)Lung Bx (02/12/18) Family History Mother , aged 81 from dementia, per Elly Diabetes Essential hypertension CHF (congestive heart failure) Heart disease CHF/heart failure Dementia Father , aged 80 Diabetes Essential hypertension CAD (coronary artery disease) Heart disease OR Hyperlipidemia Stroke Sister , aged 54 Diabetes Personal history of malignant neoplasm Lung Asthma Lung cancer Brother , of mesithelioma aged 62 Diabetes Essential hypertension Personal history of malignant neoplasm Lung, Prostate Hyperlipidemia Asthma Mesothelioma Brother , of PE following knee surgery age 69 Pulmonary embolus with infarction Daughter No problems noted. Son No problems noted. Social History (Updated 06/21/20 @ 06:39 by Fabian Christian) Smoking/Tobacco Use Status: Never Alcohol Intake: never Details: monthly or less Drug use: Never Substance use type: does not use Adopted: No Caregiver/Support person: No Foster care: No Household members: none Housing: apartment Number of Children: 2 number of grandchildren: 5 Communication Needs: Hard of Hearing and Corrective Lenses Education Level: middle school Do you need help understanding health information?: Always current occupation: disabled Pets and animals: No What is your relationship status?: How often do you talk on the phone with friends or family?: twice per week How often do you get together with friends or relatives?: once per week Panel score (0-1 are the most socially isolated patients): 1 What type of physical activity do you participate in: none and sedentary lifestyle Duration: 15-30 minutes/day Frequency: daily Special devin needs: No Agree to transfusion: Yes Seatbelt use: always Drive intox or ride w/intox driver retraining instructor: No Water heater temp set <120 deg: Yes Working smoke detector in home: Yes Fire extinguisher in home: Yes Carbon monox detector in home: Yes Do you feel safe at home: Yes Do you feel safe in your relationship?: Yes Additional Social history: Lives in her own apartment in the [facility] near the hospital. Grandhien Kang used to live with her. His phone # is [phone]. Daughter Caridad lives in [place]. Son Himanshu lives in [facility], not as close to him. Gets together with brother Brian regularly who takes her shopping and goes for drives. Grandtimmy visit her home frequently.
--- NOTE | 2020-06-23 11:41 | PDOC.HHF2F ---
Home Health Certification Home Health Certification: 1. Encounter Date and Reason I certify that ZION NUNEZ was seen by Randi Dyer on 06/23/20 and that I had a [id number] encounter with this patient that meets the physician face to face encounter requirements. 2. Clinical Findings Supporting Skilled Need and Homebound Status I certify that home health services are medically necessary, include either intermittent penitentiary and/or physical/speech therapy, and that this patient is homebound in that absences from the home require considerable and taxing effort and are infrequent or of short duration, or are attributable to the need to receive medical care. [X] (a) Attached documentation from encounter provides clinical findings supporting skilled need and homebound status (including what assistance patient requires to leave the home). The encounter with the patient was in whole, or in part, for the following medical condition, which is the primary reason for home health care: NAUSEA,VOMITING,DIARRHEA DUE TO SIDE EFFECT OF MED, Senior Care: COPD/pulmonary fibrosis and hypertension, O2 prescription changing to 2L with rest and 4 L with activity, diabetic, assess medication compliance/perform teaching, monitor VS. Bloodwork on 06/30/2020 (BMP, magnesium) - results to Dr Garcia Physical Therapy: eval and treat Homebound: unable to leave home without assistance 3. Certification and Authentication I certify that I composed the above information based on my clinical judgement relating to this patient's medical condition and, if applicable, clinical findings communicated to me by the NPP or inpatient physician who performed the Home Health Referral. All further orders will be obtained through Dr Garcia (Community Based Physician - PCP)
--- NOTE | 2020-06-23 12:41 | W.INDIABCONS ---
Date of service: 06/23/20 Time of Service: 12:41 Diabetes Inpatient Consult DESCRIPTION/ASSESSMENT: 69 year old female admitted with n/v x 3 weeks, per chart review, weight has been stable > 1 year, BMI indicates class 2 obesity. Admitted with enteritis, SYD, CKD with chronic respiratory failure, on home O2, has mild cognitive impairment and hx of DKA. Met with Elly today, she reports that her A1C was improved this year from 14% (09/2019) to 8.6% in March 2020.
--- NOTE | 2020-06-23 12:59 | W.INDIABCONS ---
Date of service: 06/23/20 Time of Service: 13:00 Diabetes Inpatient Consult DESCRIPTION/ASSESSMENT: 69 year old female admitted with n/v/d x 3 weeks, per chart review, weight has been stable > 1 year, BMI indicates class 2 obesity. Admitted with enteritis, SYD, CKD with chronic respiratory failure, on home O2, has mild cognitive impairment and hx of DKA. Met with Elly today, she reports that her A1C was improved this year from 14% (09/2019) to 8.6% in March 2020. Elly lives alone and manages her meals and medication with family support who live close by. SHe report that she takes her insulin (lispro/degludec) daily as perscribed but continues to have elevated BS often > 200 mg/dl. She does not report any hypoglycemic episodes. She states that she took her insulin despite being sick as instructed from her Diabetes Management class she took last year. She also takes nintedanib for pulmonary fibrosis that requires a high protein diet or it can lead to diarrhea. We discussed going forward how to adjust her meal plan to emphasize protein and decrease carb load at meals to no more than 65 g carbs. INTERVENTION: Provided education on DM including Hyper/hypoglycemia s/s with action plan for each scenario. Definition and types of CHO with examples, CHO counting, DASH diet materials, DM meal planning and label reading literature. Provided a blood sugar and food record chart and materials to reiterate CHO counting techniques. Reviewed desirable BG levels with patient with food choices and portions for optimal outcomes. Provided contact information for this RD and encouraged to call with any f/u questions r/t to DM self management. CDM from kitchen has been helping to count CHO's and achieve intake of ~65g/CHO per meal period. Also provided nutritional education on increasing protein intake at meals to decrease side effects from nintedanib medication. Written material and contact information provided for follow up. PLAN: continue diabetic diet, Elly to contact diabetes outpatient dietitian for continued diabetes self management education in outpatient setting, Elly to follow higher protein diet to offset side effects while on nintedanib. Time Spent in Nutritional Counseling and Treatment: 15 min spent face to face
--- NOTE | 2020-06-23 16:20 | PDOC.CMDIS ---
- If Service Date Differs Date of service: 06/23/20 Time of Service: 16:20 LACE Index Scoring Tool - Questions: Length of Stay (in days): 2 Acuity (Admit via E.D.?): Yes Comorbidities: Diabetes w/o Complication, Congestive Heart Failure, Chronic Pulmonary Disease, Mild Liver/Renal Disease E.D. Visits: 3 - Answers: Total Score: 13 Risk of Readmission: High Risk Care Management Discharge Reason for Hospitalization: Vomiting, Diarrhea, Dehydration Discharge Plan: Elly will return home with new orders of HH RN for med management. Her grand daughter will drive her home via private vehicle. She will follow up with her PCP and discharge plan of care. She is happy to be going home. Patient/Family Education Needs: Review discharge instructions regarding activity levels and medications, discussion of self care needs including ask me three. Services Needed at Discharge: Home Health Care Services (HH RN)
[2020-06-26 14:38] LABS: Misc Referral (VDH) See Comments
== END 2020-06-23 13:20 | disposition home health service (06) | DRG 393 ==
LOC: ER 06-21 03:23 → MS 06-21 03:28
PROVIDERS: Internal Medicine; Admitting Provider Family Medicine; Emergency Provider Emergency Medicine; PCP Family Medicine; Visit Provider Family Medicine
DX: K52.1 Toxic gastroenteritis and colitis (principal); I50.33 Acute on chronic diastolic (congestive) heart failure; B02.29 Other postherpetic nervous system involvement; J96.11 Chronic respiratory failure with hypoxia; N17.9 Acute kidney failure, unspecified; I13.0 Hypertensive heart and chronic kidney disease with heart failure and stage 1 through stage 4 chronic kidney disease, or unspecified chronic kidney disease; F41.9 Anxiety disorder, unspecified; J45.909 Unspecified asthma, uncomplicated; J84.10 Pulmonary fibrosis, unspecified; F32.9 Major depressive disorder, single episode, unspecified; Z79.4 Long term (current) use of insulin; G31.84 Mild cognitive impairment of uncertain or unknown etiology; K59.09 Other constipation; G89.29 Other chronic pain; M54.9 Dorsalgia, unspecified; K21.9 Gastro-esophageal reflux disease without esophagitis; E78.5 Hyperlipidemia, unspecified; M81.0 Age-related osteoporosis without current pathological fracture; E11.65 Type 2 diabetes mellitus with hyperglycemia; Z99.81 Dependence on supplemental oxygen; R07.9 Chest pain, unspecified; N18.9 Chronic kidney disease, unspecified; I27.20 Pulmonary hypertension, unspecified; E86.0 Dehydration; R11.2 Nausea with vomiting, unspecified; T50.995A Adverse effect of other drugs, medicaments and biological substances, initial encounter
CPT/HCPCS: 36415; 71250; 80048; 80053; 84145; 87329; 87449; 87505; 93005; 94618; 94640; 96361; 96365; 96375; 97161; 99219; 99233; 99239; 99285; NC; U0003; 71045; 74177; 83735; 83880; 84484; 85025; 87324; 93010; G0378; J1650; J1941; J2405; J3490

== ENCOUNTER 2020-06-30 16:46 | Outpatient (REF) | payer OTHER, MEDICAID, SELFPAY ==
[2020-06-30 18:08] LABS: Anion Gap 4.1 mmol/L (3-11); BUN 22 mg/dL (7-18); CO2 28.9 mmol/L (21.0-32.0); CREATININE 1.39 mg/dL (0.55-1.02); Calcium 9.7 mg/dL (8.5-10.1); Chloride 100 mmol/L (98-107); Estimated GFR 37.59 (mL/min/1.73m2); Glucose 392 mg/dL (74-106); Potassium 4.8 mmol/L (3.5-5.1); Sodium 133 mmol/L (136-145)
== END 2020-06-30 17:06 ==
LOC: LBN 16:46
PROVIDERS: PCP Family Medicine; Visit Provider Family Medicine
DX: N18.9 Chronic kidney disease, unspecified (principal); I50.9 Heart failure, unspecified
CPT/HCPCS: 80048; 83735

== ENCOUNTER 2020-09-03 00:55 | Outpatient (CLI) | payer OTHER, MEDICAID, SELFPAY ==
--- NOTE | 2020-09-03 | DI.CT_ITS ---
EXAM: CT CHEST WO CLINICAL HISTORY: INTERSTITIAL PULMONARY DISEASE,J84.9. TECHNIQUE: Imaging protocol: Axial computed tomography images were obtained and coronal and sagittal reformatted images were created and reviewed. COMPARISON: CT CT CHEST WO from 06/21/2020 FINDINGS: Tracheobronchial tree: Patent where visualized. Mediastinum and Martha: No dominant adenopathy or fluid collection. Small hiatal hernia. Pulmonary parenchyma: No pulmonary masses identified. No superimposed consolidation is present. The re are calcified granulomas present. There has been no change in the diffuse interstitial lung disea se since 06/21/2020. Pleura: No effusion or pneumothorax. Heart: The heart is not dilated. Mild coronary artery calcification. No pericardial effusion. Aorta: Thoracic aorta non-dilated. Atherosclerosis. Upper abdomen: Unremarkable. Lymph nodes: Within normal limits. Bones:No acute abnormality. Soft tissues: Unremarkable. IMPRESSION: Stable diffuse interstitial lung disease since 06/21/2020. No evidence of a superimposed pneumonia. Atherosclerosis and coronary artery disease. RADIATION DOSE DELIVERED: 565.56mGy.cm Total DLP 565.56mGy.cm Total DLP DATA REPOSITORY: All CT scans at this facility are submitted to the National Radiology Data Registry (NRDR) Dose Index Registry (DIR) with the [employer] ([employer]). RADIATION OPTIMIZATION: All CT scans at this facility use at least one of these dose optimization te chniques: automated exposure control; mA and/or kV adjustment per patient size (includes targeted exa ms where dose is matched to clinical indication); or iterative reconstruction.
== END 2020-09-03 01:15 ==
PROVIDERS: PCP Family Medicine; Visit Provider Internal Medicine
DX: J84.9 Interstitial pulmonary disease, unspecified (principal); I25.10 Atherosclerotic heart disease of native coronary artery without angina pectoris
CPT/HCPCS: 71250

== ENCOUNTER 2020-09-04 14:43 | Outpatient (CLI) | payer OTHER, MEDICAID, SELFPAY ==
--- NOTE | 2020-09-04 11:36 | DI.RAD_ITS ---
EXAM: XR KNEE LT 3V AP,LAT,RAJ CLINICAL HISTORY: Sudden posterior knee pain, r/o frx M76.892 ANTHESOPATHIES OF LT LOWER LIMB. TECHNIQUE: 2D digital imaging was performed. COMPARISON: CR XR CHEST 2V PA LATERAL from 09/30/2019 FINDINGS: BONES: No acute fracture is present. No bony destructive lesion is seen. JOINTS: The knee is normally aligned. No joint effusion is seen. SOFT TISSUE: Normal. IMPRESSION: Normal radiographs of the left knee. DATA REPOSITORY: RADIATION DOSE DELIVERED:
== END 2020-09-04 15:03 ==
PROVIDERS: PCP Family Medicine; Visit Provider Family Medicine
DX: M25.562 Pain in left knee (principal)
CPT/HCPCS: 73562

== ENCOUNTER 2020-09-23 17:35 | Emergency (ER) | payer OTHER, MEDICAID, SELFPAY ==
[2020-09-23] VITALS (44 sets, daily range): BP systolic 91–131; BP diastolic 41–66; PULSE 61–92; RESP 7–23; TEMP 36.4–36.6; O2SAT 90–100
--- NOTE | 2020-09-23 17:45 | RT.EKG_ITS ---
APPROVED REPORT Exam: Resting ECG Patient Location: E HR:87 bpm ECG Measurements Heart Rate 87 AXIS MT 162 P -1 QRSd 100 QRS -22 QT 378 T 92 QTc 456 Conclusion Sinus rhythm...normal P axis, V-rate 60- 99 LVH with secondary repolarization abnormality...multi-LVH criteria, abnrm ST-T I have reviewed and interpreted ECG and agree with software generated interpretation.
--- NOTE | 2020-09-23 18:07 | ED.GENADUL_ITS ---
Discharge Plan Disposition Patient Disposition: HOME Condition: Improving Discharge Details Clinical Impression: Dehydration, Nausea vomiting and diarrhea Primary Care Provider: Mario Garcia ED Provider: Tsering Finch Home Meds and New Rx's Prescriptions: New promethazine 12.5 mg tablet 12.5 mg PO Q6H PRN (Reason: nausea and vomiting) Qty: 10 RF: 0 Continued (DME) Wheeled walker with seat and basket Qty: 1 RF: 0 sucralfate 1 gram tablet 1 gm PO QACHS RF: 0 clotrimazole 1 % cream 1 applic topical TID Qty: 113 RF: 6 (DME) compress.stocking,knee,reg,lrg misc See Dose Instructions .ROUTE .MEDSUPPLY Qty: 2 RF: 0 magnesium oxide 400 mg (241.3 mg magnesium) tablet 400 mg PO DAILY Qty: 30 RF: 6 albuterol sulfate [Ventolin HFA] 8 GM HFA aerosol inhaler 2 puff Inhalation Q4H PRN Qty: 1 RF: 4 (DME) Oxygen Tank See Dose Instructions .ROUTE .MEDSUPPLY Qty: 1 RF: 0 (DME) Face mask to deliver Oxygen Qty: 2 RF: 6 benzonatate [Tessalon Perles] 100 mg capsule 100 mg PO BID-TID PRN (Reason: cough) Qty: 90 RF: 3 nystatin 100,000 unit/gram powder 1 applic TP TID Qty: 60 RF: 0 Stiolto Respimat 2.5-2.5 mcg/actuation mist 2 puff IH DAILY RF: 0 Breo Ellipta 200-25 mcg/dose blister with device 1 inh IH DAILY PRNRF: 0 simvastatin 40 mg tablet 40 mg PO HS Qty: 30 RF: 11 spironolactone 25 mg tablet 25 mg PO DAILY Qty: 30 RF: 11 escitalopram oxalate 10 mg tablet 10 mg PO .NOON Qty: 30 RF: 11 Jardiance 10 mg tablet 10 mg PO QAM Qty: 30 RF: 11 pantoprazole 40 mg tablet,delayed release (DR/EC) 40 mg PO DAILY Qty: 90 RF: 3 (DME) Blood Glucose Test Strip 1 ea Miscellaneous TID Qty: 400 RF: 12 (DME) Oxygen Tank See Rx Instructions .ROUTE .MEDSUPPLY Qty: 1 RF: 0 cyclobenzaprine 5 mg tablet 5 mg PO TID PRN (Reason: muscle spasm) Qty: 90 RF: 6 donepezil 5 mg tablet,disintegrating 5 mg PO DAILY Qty: 30 RF: 11 acidophilus-pectin, citrus 25 million cell -100 mg tablet 1 tab PO TID Qty: 90 RF: 11 albuterol sulfate 2.5 mg /3 mL (0.083 %) solution for nebulization 2.5 mg Inhalation Q6H PRN (Reason: shortness of breath or wheezing) Qty: 10 RF: 6 furosemide 40 mg tablet 40 mg PO DAILY Qty: 30 RF: 11 insulin lispro [Humalog KwikPen Insulin] 100 unit/mL insulin pen See Rx Instructions SC .per ss Qty: 15 RF: 11 (DME) lancets 28 gauge misc 1 ea Miscellaneous TID Qty: 400 RF: 12 (DME) pen needle, diabetic [Pen Needle] 31 gauge x 5/16 needle 1 ea Miscellaneous QID Qty: 4 RF: 12 Blister gordon package See Rx Instructions PO RF: 0 Tresiba FlexTouch U-200 200 unit/mL (3 mL) insulin pen See Rx Instructions SC QHS Qty: 12 RF: 12 epinephrine [EpiPen 2-Gordon] 0.3 MG/0.3 ML auto-injector 0.3 mg IM ONCE PRNRF: 0 Tresiba FlexTouch U-200 200 unit/mL (3 mL) insulin pen SUBCUT RF: 0 Tresiba FlexTouch U-200 200 unit/mL (3 mL) insulin pen See Rx Instructions .ROUTE .COMPLEX RF: 0 Januvia 25 mg tablet 25 mg PO BID RF: 0 ketoconazole 2 % Cream 1 applic topical BID Qty: 30 RF: 0 zinc oxide 20 % Ointment 60 g topical PRN PRNQty: 0 RF: 0 vits A and D-white pet-lanolin Ointment 60 g topical PRN PRNQty: 0 RF: 0 Discontinued bisacodyl 5 mg tablet,delayed release (DR/EC) 5 mg PO DAILY Qty: 30 RF: 11 Discharge Instructions Instructions: Promethazine (By mouth), Dehydration (ED), Acute Nausea and Vomiting (ED) Additional Instructions: Please encourage water intake. Please do not continue stool softeners. You may use Imodium to help with diarrhea if needed. However, please make adjustments to your medications based on how your bowel habit change. You may use the promethazine as prescribed. Please take one half of the cut tab every 6 hours as needed for any recurrence of your nausea or vomiting of the tabs you were given tonight. I would like you to follow-up promptly with primary care, please call tomorrow to schedule follow-up appointment within the next week. If you develop any fever/chills, no blood in your vomit or stool, increased pain, inability to hydrate or other new/worsening symptoms please seek care urgently once again. Referrals: Mario Garcia DO [Primary Care Provider] - Medical Decision Making Patient is a pleasant 70-year-old female with past medical history of CHF, pulmonary fibrosis, pulmonary hypertension, chronic hypoxia on home O2, COPD, GERD, hypertension cognitive impairment, type 2 diabetes. She presenting today for 1 week of nausea, vomiting and diarrhea. She reports 3 episodes of emesis today. She states that they were a light brown color. She was eating crackers and drinking fluids prior to the emesis. States that she has had approximately 6 soft bowel movements today. She describes none of them bloody or tarry black. She states that she is been having some upper abdominal pain primarily in the epigastric and right upper quadrant region. She does report that she has some chronic GI upset but states that this pain is new. Patient status post cholecystectomy, appendectomy, total hysterectomy based on her report. She denies any recent antibiotics. On exam, patient appears dehydrated. She does not appear acutely toxic this time. Heart rate slightly elevated 92. She is afebrile. Normotensive. She does have some epigastric and right upper quadrant pain. No peritoneal findings. She has not noted any exertional component to this. She is denied shortness of breath or chest pain. Have low suspicion for ACS but based on her comorbidities, will screen for this with ECG and troponin. No pain radiating into her back, no tearing pain. 2+ distal pulses, no evidence to suggest dissection. Will obtain an abdominal CT with a new onset of abdominal comfort. EKG was reviewed by Dr. Stanford. She reviewed it, feels that IV Zofran to help with her nausea. She does have a history of CHF will give a small 500 cc bolus of fluids. Labs reviewed. Patient's white count is 11.6. Patient does appear concentrated with elevated hemoglobin hematocrit as well. Lactate is 2.9. BUN is elevated at 25, creatinine is 1.71. Patient has an elevated but this historically, she appears to be typically around the 1.5 range. Glucose is 197. Troponin is less than 0.05. Based on the patient's risk factors, plan to complete a repeat troponin. Patient appears dehydrated on labs, exam and baseline history. We will hydrate gently as her CHF allows. Will obtain a noncontrast CT scan of her abdomen Patient was reassessed after the 500 cc bolus. Her lungs remain clear. She is not hypoxic. Breathing normally without any evidence of fluid overload. No lower extremity edema. We will continue with another 500 cc of fluid. Contacted by the radiologist. He notes patient has a hiatal hernia. States that her distal esophagus was noted to be thickened and question reflux versus tumor. He does not see any edema around the distal esophagus to suggest acute abnormality. She advises that the colon is empty which does limit the exam. Is questioning if this is edematous but does not note any fat stranding and notes that this finding could be associated with it being so empty and collapsed. No acute abnormality noted. I discussed the findings with the patient. She has not had an EGD historically. She does have a known history of GERD. We will have her discuss this further with her primary care and potential EGD in the future. Patient reports feeling much improved after hydration. She is tolerating fluids and food. I did speak with her grandson Jorge Luis who helps with her medical care frequently. He has with the diarrhea is more of a chronic issue for the patient. It sounds like some of her nausea is as well. He is typically prescribed an antiemetic but is run out of this recently. He also noted that the patient has been prescribed Dulcolax and has continued to take this medication despite her diarrhea. He states that he did stop this in the past 2 days. He states that while the patient is quite high functioning, she does have a history of dementia and does not always notice these issues. Patient discussed inpatient versus outpatient care. As she is both clinically improved and much improved and repeat blood work with a lactate of 1.4 and a creatinine of 1.52, feel that she would be a good candidate for outpatient testing. She has reported a subjective fever, we will perform Covid testing out of an abundance of caution although she does not have any known contacts. Her repeat troponin remains less than 0.05. Patient lives with her granddaughter and has a grandson that is closely involved in her care. She feels that she is able to be cared for well at home. Her granddaughter will pick her up on her way home from work. All of her questions and concerns were addressed and she is in agreement this plan. She will call primary care tomorrow to schedule follow- up appointment. On chart review, patient has been prescribed 12.5 mg of Phenergan historically for her nausea. I will refill this. We did score our 25 mg Phenergan for the patient as he did not have the 12.5 mg tabs. She was sent home with #4 doses. Prescription for further was given. Patient has not used Reglan since last October. HPI General Mode of arrival: ambulatory . Date/Time Provider Initiated Documentation: 09/23/20 18:07 . Limitations to Documentation: no limitations . Information obtained by: patient, RN notes reviewed and old records reviewed . History of Present Illness 70 year old F presents to the emergency department with the chief complaint of N/V/D, described as moderate and similar to prior episodes, Quality is described as aching, and is localized to the abdomen. Patient reports no radiation. Patient started experiencing this week(s) (1) and it has been constant. No relieving factors improve symptom(s), No exacerbating factors reported . Patient notes fever/chills (reports subjective fever), loss of appetite and nausea/vomiting; denies chest pain, cough, rash, shortness of breath and weakness. Patient did receive the following treat ments prior to arrival, none Related Data Home Medications Medication Instructions Recorded Confirmed albuterol sulfate [Ventolin HFA] 2 puff INHALATION Q4H PRN #1 10/09/14 09/23/20 inhaler compress.stocking,knee,reg,lrg #2 each 10/29/18 09/04/20 Oxygen #1 each 11/29/18 09/04/20 ketoconazole 1 applic TOPICAL BID #30 gm 01/31/19 09/23/20 Wheeled walker with seat and basket #1 ea 02/07/19 09/04/20 vits A and D-white pet-lanolin 60 g TOPICAL PRN PRN #0 g 05/29/19 12/02/20 zinc oxide 60 g TOPICAL PRN PRN #0 g 03/20/19 09/23/20 Face mask to deliver Oxygen #2 each 04/23/19 09/04/20 benzonatate 100 mg capsule 100 mg PO BID-TID PRN #90 cap 06/06/19 09/04/20 nystatin 100,000 unit/gram topical 1 applic TP TID #60 gm 08/01/19 09/04/20 powder tiotropium 2.5 mcg-olodaterol 2.5 2 puff IH DAILY 11/08/19 09/04/20 mcg/actuation mist for inhalation sucralfate 1 gram tablet 1 gm PO QACHS 11/11/19 09/23/20 clotrimazole 1 % topical cream 1 applic TOPICAL TID #113 gm 12/27/19 09/04/20 fluticasone furoate 200 1 inh IH DAILY PRN 02/14/20 09/23/20 mcg-vilanterol 25 mcg/dose inhalation powder escitalopram oxalate 10 mg tablet 10 mg PO .NOON #30 tab-cap 03/09/20 09/23/20 simvastatin 40 mg tablet 40 mg PO HS #30 tab 03/09/20 09/23/20 spironolactone 25 mg tablet 25 mg PO DAILY #30 tab 03/09/20 09/23/20 empagliflozin 10 mg tablet 10 mg PO QAM #30 tab 03/10/20 09/23/20 pantoprazole 40 mg tablet,delayed 40 mg PO DAILY #90 tab 04/03/20 09/23/20 release epinephrine [EpiPen 2-Gordon] 0.3 mg IM ONCE PRN 06/12/20 09/23/20 blood sugar diagnostic #400 strip 06/15/20 09/04/20 Oxygen #1 each 06/25/20 09/04/20 magnesium oxide 400 mg (241.3 mg 400 mg PO DAILY #30 tab 06/25/20 09/23/20 magnesium) tablet cyclobenzaprine 5 mg tablet 5 mg PO TID PRN #90 tab 07/27/20 09/23/20 acidophilus 25 million 1 tab PO TID #90 tab 08/03/20 09/23/20 cell-pectin, citrus 100 mg tablet albuterol sulfate 2.5 mg INHALATION Q6H PRN #10 vial 08/03/20 09/23/20 donepezil 5 mg disintegrating 5 mg PO DAILY #30 tab-cap 08/03/20 09/23/20 tablet furosemide 40 mg tablet 40 mg PO DAILY #30 tab 08/03/20 09/23/20 insulin lispro 100 unit/mL See Rx Instructions SC .per ss #15 08/03/20 09/23/20 subcutaneous pen ml lancets 28 gauge #400 ea 08/03/20 09/04/20 pen needle, diabetic 31 gauge x #4 box 08/03/20 09/04/2003/07 Blister gordon See Rx Instructions PO 08/31/20 09/04/20 insulin degludec 200 unit/mL (3 See Rx Instructions SC QHS #12 ml 08/31/20 09/23/20 mL) subcutaneous pen Januvia 25 mg PO BID 09/23/20 09/23/20 Tresiba FlexTouch U-200 See Rx Instructions .ROUTE .COMPLEX 09/23/20 09/23/20 Tresiba FlexTouch U-200 unit SUBCUT 09/23/20 09/23/20 promethazine 12.5 mg PO Q6H PRN #10 tab 09/23/20 Previous Rx's Medication Instructions Recorded compress.stocking,knee,reg,lrg #2 each 10/29/18 ketoconazole 1 applic TOPICAL BID #30 gm 01/31/19 Wheeled walker with seat and basket #1 ea 02/07/19 vits A and D-white pet-lanolin 60 g TOPICAL PRN PRN #0 g 03/20/19 zinc oxide 60 g TOPICAL PRN PRN #0 g 03/20/19 Face mask to deliver Oxygen #2 each 04/23/19 benzonatate 100 mg capsule 100 mg PO BID-TID PRN #90 cap 06/06/19 nystatin 100,000 unit/gram topical 1 applic TP TID #60 gm 08/01/19 powder clotrimazole 1 % topical cream 1 applic TOPICAL TID #113 gm 12/27/19 escitalopram oxalate 10 mg tablet 10 mg PO .NOON #30 tab-cap 03/09/20 simvastatin 40 mg tablet 40 mg PO HS #30 tab 03/09/20 spironolactone 25 mg tablet 25 mg PO DAILY #30 tab 03/09/20 empagliflozin 10 mg tablet 10 mg PO QAM #30 tab 03/10/20 pantoprazole 40 mg tablet,delayed 40 mg PO DAILY #90 tab 04/03/20 release blood sugar diagnostic #400 strip 06/15/20 magnesium oxide 400 mg (241.3 mg 400 mg PO DAILY #30 tab 06/25/20 magnesium) tablet cyclobenzaprine 5 mg tablet 5 mg PO TID PRN #90 tab 07/27/20 acidophilus 25 million 1 tab PO TID #90 tab 08/03/20 cell-pectin, citrus 100 mg tablet albuterol sulfate 2.5 mg INHALATION Q6H PRN #10 vial 08/03/20 donepezil 5 mg disintegrating 5 mg PO DAILY #30 tab-cap 08/03/20 tablet furosemide 40 mg tablet 40 mg PO DAILY #30 tab 08/03/20 insulin lispro 100 unit/mL See Rx Instructions SC .per ss #15 08/03/20 subcutaneous pen ml lancets 28 gauge #400 ea 08/03/20 pen needle, diabetic 31 gauge x #4 box 08/03/2003/07 insulin degludec 200 unit/mL (3 See Rx Instructions SC QHS #12 ml 08/31/20 mL) subcutaneous pen promethazine 12.5 mg PO Q6H PRN #10 tab 09/23/20 Allergies Allergy/AdvReac Type Severity Reaction Status Date / Time aspirin Allergy Unknown HIVES, Verified 09/23/20 17:57 flip out diclofenac Allergy Unknown RASH Verified 09/23/20 17:57 latex Allergy Unknown SKIN Verified 09/23/20 17:57 BREAKDOWN NSAIDS (Non-Steroidal Allergy Unknown HIVES, Verified 09/23/20 17:57 Anti-Inflamma VOMITING morphine AdvReac Unknown VOMITING Verified 09/23/20 17:57 General Stated Complaint: Nausea/Vomit/Diar ALVIN: 3 Review of Systems Constitutional Constitutional: Reports as per HPI, Denies chills, Denies fatigue, Reports fever(s) and Denies headache(s) ENT Ears, Nose, Mouth, and Throat: Denies headache(s) Cardiovascular Cardiovascular: Reports as per HPI, Denies chest pain and Denies dyspnea Respiratory Respiratory: Reports as per HPI, Denies cough and Denies dyspnea Gastrointestinal Gastrointestinal: Reports as per HPI Musculoskeletal Musculoskeletal: Reports as per HPI and Denies back pain Integumentary/Breasts Skin/Breast: Reports as per HPI and Denies rash Neurologic Neurologic: Reports as per HPI and Denies headache(s) Endocrine Endocrine: Denies fatigue [facility] Medical History (Updated 09/23/20 @ 22:30 by PILI Arias) Abdominal pain Acute gastroenteritis (03/16/18) Acute kidney injury (nontraumatic) Acute pneumonitis Anxiety (03/16/18) Asthma Asthma Back pain CHF (congestive heart failure) Chronic constipation (03/16/18) Cognitive impairment (03/16/18) Mild, w/Memory Loss Cubital tunnel syndrome (03/16/18) Depressive disorder DKA (diabetic ketoacidoses) Dyspnea (03/16/18) Edema (03/16/18) Essential hypertension (07/17/13) Gastroesophageal reflux disease without esophagitis (03/16/18) History of shingles (03/16/18) Hyperlipemia Insulin dependent diabetes mellitus Internal derangement of right knee Interstitial lung disease (03/16/18) Pulm: [place] Long-term use of high-risk medication (03/16/18) Metabolic acidosis with normal anion gap and bicarbonate losses Migraine (04/03/14) Neck pain (03/16/18) 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 History of section Ligation of fallopian tube Thoracoscopic (R)Lung Bx (02/12/18) Family History Mother , aged 81 from dementia, per Elly Diabetes Essential hypertension CHF (congestive heart failure) Heart disease CHF/heart failure Dementia Father , aged 80 Diabetes Essential hypertension CAD (coronary artery disease) Heart disease [place] Hyperlipidemia Stroke Sister , aged 54 Diabetes Personal history of malignant neoplasm Lung Asthma Lung cancer Brother , of mesithelioma aged 62 Diabetes Essential hypertension Personal history of malignant neoplasm Lung, Prostate Hyperlipidemia Asthma Mesothelioma Brother , of PE following knee surgery age 69 Pulmonary embolus with infarction Daughter No problems noted. Son No problems noted. Social History Smoking/Tobacco Use Status: Never Smoking risk assessment performed?: Yes Alcohol Intake: never Details: monthly or less Drug use: Never Substance use type: does not use Adopted: No Caregiver/Support person: No Foster care: No Household members: none Housing: apartment Number of Children: 2 number of grandchildren: 5 Communication Needs: Hard of Hearing and Corrective Lenses Education Level: middle school Do you need help understanding health information?: Always current occupation: disabled Pets and animals: No What is your relationship status?: How often do you talk on the phone with friends or family?: twice per week How often do you get together with friends or relatives?: once per week Panel score (0-1 are the most socially isolated patients): 1 What type of physical activity do you participate in: none and sedentary lifestyle Duration: 15-30 minutes/day Frequency: daily Special devin needs: No Agree to transfusion: Yes Seatbelt use: always Drive intox or ride w/intox skip load driver: No Water heater temp set <120 deg: Yes Working smoke detector in home: Yes Fire extinguisher in home: Yes Carbon monox detector in home: Yes Do you feel safe at home: Yes Do you feel safe in your relationship?: Yes Additional Social history: Lives in her own apartment in the [facility] [place] the hospital. Grandson Jorge Luis used to live with her. His phone # is [phone]. Daughter Caridad lives in [place]. Son Himanshu lives in [facility], not as close to him. Gets together with brother Brian regularly who takes her shopping and goes for drives. Grandkids visit her home frequently. Exam Const General: cooperative, healthy appearing, comfortable, no acute distress and well developed Nutritional Appearance: well nourished and overweight Orientation: alert, awake and oriented x3 HENMT Head: normal to inspection Mouth: mucous membranes dry (appears dry) Resp Effort & Inspection: normal respiratory effort, able to speak in complete sentences and no respiratory distress Auscultation: clear to auscultation bilaterally, no rales, no rhonchi and no wheezes Cardio Rate: regular rate Rhythm: regular rhythm Heart Sounds: S1 normal and S2 normal GI Inspection: normal to inspection, no edema, obesity, scar, no visible herniation and no visible pulsation Palpation: soft, no hepatosplenomegaly, not firm, no guarding, tender in the epigastrum and in the RLQ; Paulino's sign negative and with no rebound tenderness and No ascites Percussion: normal to percussion Back/Spine/Pelvis Back: no CVA tenderness Skin General skin exam: no rashes or lesions noted Trauma: no lacerations or abrasions Neuro General: patient alert and patient awake Cognition: normal cognition Speech: speech normal Gait: normal gait Extrem General: no pedal edema, no calf tenderness and other (2+ distal pulses) Psych Appearance: grossly normal and well kempt Mental Status: mental status grossly normal Speech and Movement: speech and movement normal Course Vital Signs Vital signs: Vital Signs Temperature 36.4 C L 09/23/20 17:53 Pulse 92 H 09/23/20 17:53 Respiratory Rate 16 09/23/20 17:53 Blood Pressure 131/54 L 09/23/20 17:53 Pulse Oximetry 97 09/23/20 17:53 Temperature 36.4 C L 09/23/20 17:53 Temperature Source Temporal Artery Scan 09/23/20 17:53 Pulse 92 H 09/23/20 17:53 Respiratory Rate 16 09/23/20 17:53 Blood Pressure 131/54 L 09/23/20 17:53 Blood Pressure Position Supine 09/23/20 17:53 Pulse Oximetry 97 09/23/20 17:53 Oxygen Delivery Method Room Air 09/23/20 17:53 Oxygen Flow Rate 0 09/23/20 17:53
[2020-09-23 18:26] LABS: Abs Immature Grans 0.04 10^3/uL (0.0-0.06); Absolute Eosinophil Count 0.24 10^3/uL (0.0-0.7); Basophils % 0.3; Eosinophils % 2.1; HCT 48.4 % (36.0-46.0); HGB 15.9 g/dL (11.2-15.7); Immature Grans % 0.3; Lymphocytes % 17.4; MCH 30.2 pg (27.0-33.0); MCHC 32.9 % (32.0-36.0); MCV 91.8 fL (80-95); MPV 10.4 fL (8.0-11.0); Monocytes % 5.2; Neutrophils % 74.7; Nucleated RBC 0 %; Platelet Count 315 10^3/uL (130-400); RBC 5.27 10^6/uL (3.93-5.22); RDW 13.2 % (11.7-14.6); WBC 11.64 10^3/uL (4.4-10.8)
[2020-09-23] MEDS: Normal Saline 1,000 ML 500 ML IV (18:26)
[2020-09-23 18:29] LABS: Lactate 2.9 mmol/L (0.6-1.4)
[2020-09-23 18:31] LABS: Absolute Basophil Count 0.03 10^3/uL (0.0-0.2); Absolute Lymphocyte Count 2.03 10^3/uL (1.2-3.4); Absolute Monocyte Count 0.61 10^3/uL (0.1-0.8)
[2020-09-23] MEDS: Ondansetron 4 MG/2 ML VIAL IVP (18:33)
[2020-09-23 18:45] LABS: ALT 22 U/L (14-59); AST 19 U/L (15-37); Albumin 4.2 g/dL (3.4-5.0); Alkaline Phosphatase 123 U/L (46-116); Anion Gap 11.3 mmol/L (3-11); BUN 25 mg/dL (7-18); Bilirubin, Total 0.9 mg/dL (0.2-1.0); CO2 27.7 mmol/L (21.0-32.0); CREATININE 1.71 mg/dL (0.55-1.02); Calcium 9.7 mg/dL (8.5-10.1); Chloride 98 mmol/L (98-107); Glucose 197 mg/dL (74-106); Magnesium 2.2 mg/dL (1.8-2.4); Potassium 3.8 mmol/L (3.5-5.1); Sodium 137 mmol/L (136-145); Total Protein 8.5 g/dL (6.4-8.2)
--- NOTE | 2020-09-23 18:45 | DI.CT_ITS ---
EXAM: CT ABDOMEN PELVIS WO CLINICAL HISTORY: upper abdoinal discomfort with N/V/D TECHNIQUE: COMPARISON: CT CT ABDOMEN PELVIS W from 06/21/2020 FINDINGS: CT examination of the abdomen and pelvis was performed without contrast administration. Images obtai dinora through the lung bases show severe fibrotic bibasilar radiodensities, unchanged from prior CT of June 21. There is a large hiatal hernia. The distal esophagus appears mildly thickened, question esophagitis. Correlation with endoscopy should be considered. Prior cholecystectomy reported, no biliary dilatation. Liver and spleen are unremarkable in appearance. Pancreas appears intact. Adrenals and kidneys are unremarkable, no urinary tract calcification or obstruction. No evidence of bowel obstruction. Appendix nonvisualized. There is question of colonic wall edema, this may however just be due to underdistention of the colon. No evidence of diverticulitis. 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 Abdominal aorta is of normal diameter. No abdominal or pelvic adenopathy. No significant abdominal wall hernia. IMPRESSION: Question wall thickening of the distal esophagus, there is a large hiatal hernia. Endoscopy suggeste d to further evaluate the distal esophagus and exclude inflammatory or neoplastic process. Mild colonic wall edema versus underdistention, colitis not excluded. No pericolonic fat edema. No evidence of obstruction or diverticulitis. RADIATION DOSE DELIVERED: 1,147.94mGy.cm Total DLP
[2020-09-23 18:48] LABS: Troponin I < 0.05 ng/mL (<0.06)
[2020-09-23 19:02] LABS: Lipase 85 U/L (73-393)
[2020-09-23] MEDS: Mylanta Suspension 30 ML CUP PO (19:05)
[2020-09-23 20:50] LABS: Lactate 1.4 mmol/L (0.6-1.4)
[2020-09-23 21:05] LABS: Anion Gap 6.1 mmol/L (3-11); BUN 24 mg/dL (7-18); CO2 29.9 mmol/L (21.0-32.0); CREATININE 1.52 mg/dL (0.55-1.02); Calcium 8.7 mg/dL (8.5-10.1); Chloride 103 mmol/L (98-107); Estimated GFR 33.91 (mL/min/1.73m2); Glucose 154 mg/dL (74-106); Sodium 139 mmol/L (136-145)
[2020-09-23 21:19] LABS: Troponin I < 0.05 ng/mL (<0.06)
[2020-09-25 00:09] LABS: COVID-19 RT-PCR UVMMC Result Negative (Negative)
--- NOTE | 2020-09-25 09:36 | NUR.NOTE ---
Nursing Note: Negative COVID result given over the phone after identity confirmed at 0936.
== END 2020-09-23 23:06 | disposition home or self-care (01) ==
PROVIDERS: Emergency Provider Physician Assistant; PCP Family Medicine
DX: E86.0 Dehydration (principal); R11.2 Nausea with vomiting, unspecified; R19.7 Diarrhea, unspecified; R09.02 Hypoxemia; Z03.818 Encounter for observation for suspected exposure to other biological agents ruled out; J44.0 Chronic obstructive pulmonary disease with (acute) lower respiratory infection; Z99.81 Dependence on supplemental oxygen; I10 Essential (primary) hypertension; E11.9 Type 2 diabetes mellitus without complications; Z79.4 Long term (current) use of insulin
CPT/HCPCS: 36415; 36416; 80048; 80053; 82962; 83690; 93005; 96361; 96374; 99285; U0003; 74176; 83605; 83735; 84484; 85025; 93010; J2405

== ENCOUNTER 2020-11-09 02:06 | Outpatient (CLI) | payer OTHER, MEDICAID, SELFPAY ==
[2020-11-10 12:39] LABS: COVID-19 RT-PCR UVMMC Result Negative (Negative)
== END 2020-11-09 02:26 ==
PROVIDERS: PCP Nurse Practitioner Family; Visit Provider Family Medicine
DX: Z11.52 Encounter for screening for COVID-19 (principal); J84.9 Interstitial pulmonary disease, unspecified
CPT/HCPCS: U0003

== ENCOUNTER 2020-11-12 08:04 | Inpatient (IN) | payer OTHER, MEDICAID, SELFPAY ==
[2020-11-12] VITALS (92 sets, daily range): BP systolic 99–159; BP diastolic 40–92; PULSE 68–103; RESP 11–23; TEMP 35.8–36.6; O2SAT 90–100
--- NOTE | 2020-11-12 08:30 | RT.EKG_ITS ---
APPROVED REPORT Exam: Resting ECG Patient Location: E HR:97 bpm ECG Measurements Heart Rate 97 AXIS UT 153 P 55 QRSd 99 QRS -21 QT 357 T 144 QTc 453 Conclusion Sinus rhythm...normal P axis, V-rate 60- 99 LVH with secondary repolarization abnormality...multi-LVH criteria, abnrm ST-T I have reviewed and interpreted ECG and agree with software generated interpretation.
--- NOTE | 2020-11-12 08:30 | DI.RAD_ITS ---
EXAM: 2D digital imaging was performed. CLINICAL HISTORY: n/v/d. COMPARISON: CR XR PORTABLE CHEST AP from 06/22/2020 TECHNIQUE: Supine and upright abdomen and PA chest views were performed. FINDINGS: BOWEL GAS PATTERN: Nondistended. No free air. CALCIFICATIONS: No radiopaque calcifications. OSSEOUS STRUCTURES: Normal for age. OTHER FINDINGS: None. LUNGS pulmonary fibrotic changes are seen in the lungs particularly the right upper lobe. No focal c onsolidating infiltrates. Low lung volumes. No pleural effusion or pneumothorax. HEART: Normal. MEDIASTINUM: Normal. OTHER FINDINGS: None. IMPRESSION: 1. Nonobstructive bowel gas pattern. 2. No radiopaque calculi. 3. No free air. 4. No acute pulmonary process. DATA REPOSITORY: RADIATION DOSE DELIVERED:
[2020-11-12 09:01] LABS: Abs Immature Grans 0.05 10^3/uL (0.0-0.06); Absolute Basophil Count 0.09 10^3/uL (0.0-0.2); Absolute Eosinophil Count 0.08 10^3/uL (0.0-0.7); Absolute Lymphocyte Count 3.08 10^3/uL (1.2-3.4); Absolute Monocyte Count 0.69 10^3/uL (0.1-0.8); Absolute Neutrophil Count 8.83 10^3/uL (1.2-6.7); Basophils % 0.7; Eosinophils % 0.6; HCT 49.8 % (36.0-46.0); HGB 16.2 g/dL (11.2-15.7); Immature Grans % 0.4; MCH 29.9 pg (27.0-33.0); MCHC 32.5 % (32.0-36.0); MCV 92.1 fL (80-95); MPV 11.3 fL (8.0-11.0); Monocytes % 5.4; Neutrophils % 68.9; Nucleated RBC 0 %; Platelet Count 300 10^3/uL (130-400); RBC 5.41 10^6/uL (3.93-5.22); RDW 13.5 % (11.7-14.6); RDW-SD 45.7 fL; WBC 12.82 10^3/uL (4.4-10.8)
[2020-11-12 09:15] LABS: ALT 20 U/L (14-59); AST 10 U/L (15-37); Albumin 3.7 g/dL (3.4-5.0); Alkaline Phosphatase 118 U/L (46-116); Anion Gap 20.8 mmol/L (3-11); BUN 33 mg/dL (7-18); CO2 20.2 mmol/L (21.0-32.0); CREATININE 2.17 mg/dL (0.55-1.02); Calcium 9.3 mg/dL (8.5-10.1); Chloride 89 mmol/L (98-107); Estimated GFR 22.48 (mL/min/1.73m2); Magnesium 2.6 mg/dL (1.8-2.4); Potassium 4.1 mmol/L (3.5-5.1); Sodium 130 mmol/L (136-145)
[2020-11-12 09:23] LABS: Glucose 639 mg/dL (74-106); Troponin I < 0.05 ng/mL (<0.06)
[2020-11-12] MEDS: Normal Saline 1,000 ML 1000 ML IV ×2 (09:57→10:59)
[2020-11-12 09:58] LABS: Bilirubin Small (Negative); Blood Negative (Negative); Clarity Clear (Clear); Glucose 500 mg/dL (Negative); Ketones 40 mg/dL (Negative); Leukocyte Esterase Negative (Negative); Nitrite Negative (Negative); Specific Gravity 1.015 (1.005-1.025); Urobilinogen 0.2 EU/dL (Up TO 0.2); pH 5.5 (5-8)
--- NOTE | 2020-11-12 10:29 | ED.GENADUL_ITS ---
Discharge Plan Disposition Patient Disposition: [facility] INPATIENT Condition: Serious Discharge Details Chief Complaint: Nausea/Vomit/Diar Clinical Impression: DKA (diabetic ketoacidosis) Primary Care Provider: Dharmesh Nolasco ED Provider: Tre Goff Home Meds and New Rx's Prescriptions: No Action (DME) Wheeled walker with seat and basket Qty: 1 RF: 0 sucralfate 1 gram tablet 1 gm PO QACHS RF: 0 clotrimazole 1 % cream 1 applic topical TID Qty: 113 RF: 6 (DME) compress.stocking,knee,reg,lrg misc See Dose Instructions .ROUTE .MEDSUPPLY Qty: 2 RF: 0 magnesium oxide 400 mg (241.3 mg magnesium) tablet 400 mg PO DAILY Qty: 30 RF: 6 Tresiba FlexTouch U-200 200 unit/mL (3 mL) insulin pen See Rx Instructions SC QHS Qty: 12 RF: 12 albuterol sulfate [Ventolin HFA] 8 GM HFA aerosol inhaler 2 puff Inhalation Q4H PRN Qty: 1 RF: 4 (DME) Oxygen Tank See Dose Instructions .ROUTE .MEDSUPPLY Qty: 1 RF: 0 (DME) Face mask to deliver Oxygen Qty: 2 RF: 6 benzonatate [Tessalon Perles] 100 mg capsule 100 mg PO BID-TID PRN (Reason: cough) Qty: 90 RF: 3 nystatin 100,000 unit/gram powder 1 applic TP TID Qty: 60 RF: 0 Stiolto Respimat 2.5-2.5 mcg/actuation mist 2 puff IH DAILY RF: 0 Breo Ellipta 200-25 mcg/dose blister with device 1 inh IH DAILY PRNRF: 0 simvastatin 40 mg tablet 40 mg PO HS Qty: 30 RF: 11 spironolactone 25 mg tablet 25 mg PO DAILY Qty: 30 RF: 11 escitalopram oxalate 10 mg tablet 10 mg PO .NOON Qty: 30 RF: 11 Jardiance 10 mg tablet 10 mg PO QAM Qty: 30 RF: 11 pantoprazole 40 mg tablet,delayed release (DR/EC) 40 mg PO DAILY Qty: 90 RF: 3 (DME) Oxygen Tank See Rx Instructions .ROUTE .MEDSUPPLY Qty: 1 RF: 0 cyclobenzaprine 5 mg tablet 5 mg PO TID PRN (Reason: muscle spasm) Qty: 90 RF: 6 donepezil 5 mg tablet,disintegrating 5 mg PO DAILY Qty: 30 RF: 11 acidophilus-pectin, citrus 25 million cell -100 mg tablet 1 tab PO TID Qty: 90 RF: 11 albuterol sulfate 2.5 mg /3 mL (0.083 %) solution for nebulization 2.5 mg Inhalation Q6H PRN (Reason: shortness of breath or wheezing) Qty: 10 RF: 6 furosemide 40 mg tablet 40 mg PO DAILY Qty: 30 RF: 11 (DME) pen needle, diabetic [Pen Needle] 31 gauge x 5/16 needle 1 ea Miscellaneous QID Qty: 4 RF: 12 Blister gordon package See Rx Instructions PO RF: 0 (DME) Blood Glucose Test Strip 1 ea Miscellaneous TID Qty: 400 RF: 12 insulin lispro [Humalog KwikPen Insulin] 100 unit/mL insulin pen See Rx Instructions SC .per ss Qty: 15 RF: 11 (DME) lancets 28 gauge misc 1 ea Miscellaneous TID Qty: 400 RF: 12 epinephrine [EpiPen 2-Gordon] 0.3 MG/0.3 ML auto-injector 0.3 mg IM ONCE PRNRF: 0 promethazine 12.5 mg tablet 12.5 mg PO Q6H PRN (Reason: nausea and vomiting) Qty: 10 RF: 0 ketoconazole 2 % Cream 1 applic topical BID Qty: 30 RF: 0 zinc oxide 20 % Ointment 60 g topical PRN PRNQty: 0 RF: 0 vits A and D-white pet-lanolin Ointment 60 g topical PRN PRNQty: 0 RF: 0 Medical Decision Making This is a 70-year-old female with significant past medical history. She is presenting today via EMS for abdominal pain, nausea, vomiting, diarrhea for 3 weeks. Clinically she appears dry, mild tachycardia, but no acute distress. Differential is wide with infectious process, dehydration, C. difficile, hyperglycemia, DKA, HHS, electrolyte abnormality, etc. Lower suspicion for acute CHF exacerbation or ACS. Will obtain a screening EKG and troponin. Will obtain IV access, give IV fluid at a maintenance rate. Although she does appear dry I do not want to give her fluid too quickly given her history of CHF. Once laboratory values and x-rays return we may need to increase our fluid. Initial laboratory values reveal a white blood cell count of 12.82 hemoglobin 16.2 hematocrit 49.8 platelet count 300, magnesium 2.6 troponin less than 0.05, urinalysis 40 ketones, small bilirubin, 500 glucose, sodium 130 Potassium 4.1, carbon dioxide 20.2, anion gap 20.8, creatinine 2.17, GFR 22.48. Glucose 639. Will obtain ABG. Multiple attempts made and unsuccessful. Canceled ABG and will obtain VBG X-ray of chest and abdomen read by radiology as nonobstructing bowel gas pattern, no radiopaque calculi, no free air, no acute pulmonary process. VBG pH 7.2 In the setting of normal chest x-ray, clinical findings nonsuspicious CHF, will begin to run IV fluids faster and give a second liter IV. Evaluation most consistent with DKA, will initiate insulin drip and bolus per protocol. Will contact our hospitalist team for admission. Given patient will be on insulin drip, will require ICU care. Medical Records Medical records reviewed: Yes I reviewed the patient's medical records. Lab Data Lab results reviewed: Yes I reviewed the patient's lab results. Labs: Laboratory Tests Range/Units 11/12/20 11/12/20 11/12/20 08:12 08:12 09:33 WBC (4.4-10.8) 10^3/uL 12.82 H RBC (3.93-5.22) 10^6/uL 5.41 H Hgb (11.2-15.7) g/dL 16.2 H Hct (36.0-46.0) % 49.8 H MCV (80-95) fL 92.1 MCH (27.0-33.0) pg 29.9 MCHC (32.0-36.0) % 32.5 RDW (11.7-14.6) % 13.5 Plt Count (130-400) 10^3/uL 300 MPV (8.0-11.0) fL 11.3 H Immature Gran % 0.4 Neutrophils % 68.9 Lymphocytes % 24.0 Monocytes % 5.4 Eosinophils % 0.6 Basophils % 0.7 Nucleated RBC % % 0 Absolute Neutrophils (1.2-6.7) 10^3/uL 8.83 H Absolute Lymphocytes (1.2-3.4) 10^3/uL 3.08 Absolute Monocytes (0.1-0.8) 10^3/uL 0.69 Absolute Eosinophils (0.0-0.7) 10^3/uL 0.08 Absolute Basophils (0.0-0.2) 10^3/uL 0.09 ABG Sample Site Cancelled ABG pH Cancelled ABG pCO2 Cancelled ABG pO2 Cancelled ABG HCO3 Cancelled ABG Total CO2 Cancelled ABG O2 Saturation Cancelled ABG Base Excess Cancelled VBG pH (7.31-7.41) VBG pCO2 (41-51) mmHg VBG pO2 mmHg VBG HCO3 (23-28) mmol/L VBG Total CO2 (24-29) mmol/L VBG O2 Saturation % VBG Base Excess (-2-3) mmol/L Oxygen Liter Flow Cancelled FiO2 Cancelled Sodium (136-145) mmol/L 130 L Potassium (3.5-5.1) mmol/L 4.1 Chloride (98-107) mmol/L 89 L Carbon Dioxide (21.0-32.0) mmol/L 20.2 L Anion Gap (3-11) mmol/L 20.8 H BUN (7-18) mg/dL 33 H Creatinine (0.55-1.02) mg/dL 2.17 H Estimated GFR/1.73 m2 (mL/min/1.73m2) 22.48 Glucose (74-106) mg/dL 639 H* Calcium (8.5-10.1) mg/dL 9.3 Magnesium (1.8-2.4) mg/dL 2.6 H Total Bilirubin (0.2-1.0) mg/dL 1.0 AST (15-37) U/L 10 L ALT (14-59) U/L 20 Alkaline Phosphatase (46-116) U/L 118 H Troponin I (<0.06) ng/mL < 0.05 Total Protein (6.4-8.2) g/dL 8.0 Albumin (3.4-5.0) g/dL 3.7 Urine Color (Yellow) Urine Clarity (Clear) Urine pH (5-8) Ur Specific [place] (1.005-1.025) Urine Protein (Negative) mg/dL Urine Ketones (Negative) mg/dL Urine Blood (Negative) Urine Nitrite (Negative) Urine Bilirubin (Negative) Urine Urobilinogen (Up TO 0.2) EU/dL Ur Leukocyte Esterase (Negative) Urine Glucose (Negative) mg/dL Range/Units 11/12/20 11/12/20 09:35 10:20 WBC (4.4-10.8) 10^3/uL RBC (3.93-5.22) 10^6/uL Hgb (11.2-15.7) g/dL Hct (36.0-46.0) % MCV (80-95) fL MCH (27.0-33.0) pg MCHC (32.0-36.0) % RDW (11.7-14.6) % Plt Count (130-400) 10^3/uL MPV (8.0-11.0) fL Immature Gran % Neutrophils % Lymphocytes % Monocytes % Eosinophils % Basophils % Nucleated RBC % % Absolute Neutrophils (1.2-6.7) 10^3/uL Absolute Lymphocytes (1.2-3.4) 10^3/uL Absolute Monocytes (0.1-0.8) 10^3/uL Absolute Eosinophils (0.0-0.7) 10^3/uL Absolute Basophils (0.0-0.2) 10^3/uL ABG Sample Site ABG pH ABG pCO2 ABG pO2 ABG HCO3 ABG Total CO2 ABG O2 Saturation ABG Base Excess VBG pH (7.31-7.41) 7.20 L VBG pCO2 (41-51) mmHg 48 VBG pO2 mmHg 51 VBG HCO3 (23-28) mmol/L 19 L VBG Total CO2 (24-29) mmol/L 17 L VBG O2 Saturation % 79 VBG Base Excess (-2-3) mmol/L -10 L Oxygen Liter Flow FiO2 Sodium (136-145) mmol/L Potassium (3.5-5.1) mmol/L Chloride (98-107) mmol/L Carbon Dioxide (21.0-32.0) mmol/L Anion Gap (3-11) mmol/L BUN (7-18) mg/dL Creatinine (0.55-1.02) mg/dL Estimated GFR/1.73 m2 (mL/min/1.73m2) Glucose (74-106) mg/dL Calcium (8.5-10.1) mg/dL Magnesium (1.8-2.4) mg/dL Total Bilirubin (0.2-1.0) mg/dL AST (15-37) U/L ALT (14-59) U/L Alkaline Phosphatase (46-116) U/L Troponin I (<0.06) ng/mL Total Protein (6.4-8.2) g/dL Albumin (3.4-5.0) g/dL Urine Color (Yellow) Yellow Urine Clarity (Clear) Clear Urine pH (5-8) 5.5 Ur Specific [place] (1.005-1.025) 1.015 Urine Protein (Negative) mg/dL Negative Urine Ketones (Negative) mg/dL 40 H Urine Blood (Negative) Negative Urine Nitrite (Negative) Negative Urine Bilirubin (Negative) Small H Urine Urobilinogen (Up TO 0.2) EU/dL 0.2 Ur Leukocyte Esterase (Negative) Negative Urine Glucose (Negative) mg/dL 500 H ECG Data Attestation: I personally reviewed and interpreted this ECG (s) as follows: Interpretation: Please see official report by Dr. Stanford. Sinus rhythm, ventricular rate 97. No STEMI. HPI General Mode of arrival: EMS . Date/Time Provider Initiated Documentation: 11/12/20 08:12 . Limitations to Documentation: no limitations . Information obtained by: patient and EMS . HPI Narrative: This is a 70-year-old female with past medical history that includes CHF, pulmonary fibrosis, renal insufficiency, pulmonary hypertension, COPD, diabetes, anxiety, chronic constipation, presenting to the ER from home where she lives with her granddaughter via EMS. Patient is reporting a 3-week history of intermittent nausea, vomiting, diarrhea, abdominal cramping. She denies recent illness or trauma. Denies bad food exposure, recent travel or sick contacts. Denies headache, fever, chest pain, shortness of breath, back pain, dysuria, numbness, tingling, focal weakness. She reports generalized weakness, concerned about dehydration, feeling dizzy with movement. Dizziness is described as a lightheaded feeling not like the room is spinning. She has not fallen. She has had decreased p.o. intake over the past few weeks. She has been trying to take her medications but has been difficult because she has not really eating well and she has had episodes of vomiting with any p.o. intake. Of note, she was scheduled for a pulmonary function test later today and had a negative Covid test on the . Related Data Home Medications Medication Instructions Recorded Confirmed albuterol sulfate [Ventolin HFA] 2 puff INHALATION Q4H PRN #1 10/09/14 11/12/20 inhaler compress.stocking,knee,reg,lrg #2 each 10/29/18 09/04/20 Oxygen #1 each 11/29/18 09/04/20 ketoconazole 1 applic TOPICAL BID #30 gm 01/31/19 11/12/20 Wheeled walker with seat and basket #1 ea 02/07/19 09/04/20 vits A and D-white pet-lanolin 60 g TOPICAL PRN PRN #0 g 03/20/19 11/12/20 zinc oxide 60 g TOPICAL PRN PRN #0 g 03/20/19 11/12/20 Face mask to deliver Oxygen #2 each 04/23/19 09/04/20 benzonatate 100 mg capsule 100 mg PO BID-TID PRN #90 cap 06/06/19 09/04/20 nystatin 100,000 unit/gram topical 1 applic TP TID #60 gm 08/01/19 11/12/20 powder tiotropium 2.5 mcg-olodaterol 2.5 2 puff IH DAILY 11/08/19 09/04/20 mcg/actuation mist for inhalation sucralfate 1 gram tablet 1 gm PO QACHS 11/11/19 09/23/20 clotrimazole 1 % topical cream 1 applic TOPICAL TID #113 gm 12/27/19 11/12/20 fluticasone furoate 200 1 inh IH DAILY PRN 02/14/20 11/12/20 mcg-vilanterol 25 mcg/dose inhalation powder escitalopram oxalate 10 mg tablet 10 mg PO .NOON #30 tab-cap 03/09/20 11/12/20 simvastatin 40 mg tablet 40 mg PO HS #30 tab 03/09/20 11/12/20 spironolactone 25 mg tablet 25 mg PO DAILY #30 tab 03/09/20 11/12/20 empagliflozin 10 mg tablet 10 mg PO QAM #30 tab 03/10/20 11/12/20 pantoprazole 40 mg tablet,delayed 40 mg PO DAILY #90 tab 04/03/20 11/12/20 release epinephrine [EpiPen 2-Gordon] 0.3 mg IM ONCE PRN 06/12/20 11/12/20 Oxygen #1 each 06/25/20 09/04/20 magnesium oxide 400 mg (241.3 mg 400 mg PO DAILY #30 tab 06/25/20 09/23/20 magnesium) tablet cyclobenzaprine 5 mg tablet 5 mg PO TID PRN #90 tab 07/27/20 11/12/20 acidophilus 25 million 1 tab PO TID #90 tab 08/03/20 11/12/20 cell-pectin, citrus 100 mg tablet albuterol sulfate 2.5 mg INHALATION Q6H PRN #10 vial 08/03/20 11/12/20 donepezil 5 mg disintegrating 5 mg PO DAILY #30 tab-cap 08/03/20 11/12/20 tablet furosemide 40 mg tablet 40 mg PO DAILY #30 tab 08/03/20 11/12/20 pen needle, diabetic 31 gauge x #4 box 08/03/20 09/04/2003/07 Blister gordon See Rx Instructions PO 08/31/20 09/04/20 promethazine 12.5 mg PO Q6H PRN #10 tab 09/23/20 11/12/20 insulin degludec 200 unit/mL (3 See Rx Instructions SC QHS #12 ml 09/28/20 11/12/20 mL) subcutaneous pen blood sugar diagnostic #400 strip 09/29/20 insulin lispro 100 unit/mL See Rx Instructions SC .per ss #15 09/29/20 11/12/20 subcutaneous pen ml lancets 28 gauge #400 ea 09/29/20 Previous Rx's Medication Instructions Recorded compress.stocking,knee,reg,lrg #2 each 10/29/18 ketoconazole 1 applic TOPICAL BID #30 gm 01/31/19 Wheeled walker with seat and basket #1 ea 02/07/19 vits A and D-white pet-lanolin 60 g TOPICAL PRN PRN #0 g 03/20/19 zinc oxide 60 g TOPICAL PRN PRN #0 g 03/20/19 Face mask to deliver Oxygen #2 each 04/23/19 benzonatate 100 mg capsule 100 mg PO BID-TID PRN #90 cap 06/06/19 nystatin 100,000 unit/gram topical 1 applic TP TID #60 gm 08/01/19 powder clotrimazole 1 % topical cream 1 applic TOPICAL TID #113 gm 12/27/19 escitalopram oxalate 10 mg tablet 10 mg PO .NOON #30 tab-cap 03/09/20 simvastatin 40 mg tablet 40 mg PO HS #30 tab 03/09/20 spironolactone 25 mg tablet 25 mg PO DAILY #30 tab 03/09/20 empagliflozin 10 mg tablet 10 mg PO QAM #30 tab 03/10/20 pantoprazole 40 mg tablet,delayed 40 mg PO DAILY #90 tab 04/03/20 release magnesium oxide 400 mg (241.3 mg 400 mg PO DAILY #30 tab 06/25/20 magnesium) tablet cyclobenzaprine 5 mg tablet 5 mg PO TID PRN #90 tab 07/27/20 acidophilus 25 million 1 tab PO TID #90 tab 08/03/20 cell-pectin, citrus 100 mg tablet albuterol sulfate 2.5 mg INHALATION Q6H PRN #10 vial 08/03/20 donepezil 5 mg disintegrating 5 mg PO DAILY #30 tab-cap 08/03/20 tablet furosemide 40 mg tablet 40 mg PO DAILY #30 tab 08/03/20 pen needle, diabetic 31 gauge x #4 box 08/03/20/ promethazine 12.5 mg PO Q6H PRN #10 tab 09/23/20 insulin degludec 200 unit/mL (3 See Rx Instructions SC QHS #12 ml 09/28/20 mL) subcutaneous pen blood sugar diagnostic #400 strip 09/29/20 insulin lispro 100 unit/mL See Rx Instructions SC .per ss #15 09/29/20 subcutaneous pen ml lancets 28 gauge #400 ea 09/29/20 Allergies Allergy/AdvReac Type Severity Reaction Status Date / Time aspirin Allergy Unknown HIVES, Verified 11/12/20 08:21 flip out diclofenac Allergy Unknown RASH Verified 11/12/20 08:21 latex Allergy Unknown SKIN Verified 11/12/20 08:21 BREAKDOWN NSAIDS (Non-Steroidal Allergy Unknown HIVES, Verified 11/12/20 08:21 Anti-Inflamma VOMITING morphine AdvReac Unknown VOMITING Verified 11/12/20 08:21 General Stated Complaint: Nausea/Vomit/Diar ALVIN: 3 Review of Systems Constitutional Constitutional: Denies chills, Reports fatigue, Denies fever(s), Denies headache(s) and Reports weakness Eyes Eyes: Denies change in vision ENT Ears, Nose, Mouth, and Throat: Reports dizziness (Described as lightheaded), Denies headache(s) and Denies neck pain Cardiovascular Cardiovascular: Denies chest pain and Denies dyspnea Respiratory Respiratory: Denies cough and Denies dyspnea Gastrointestinal Gastrointestinal: Reports abdominal pain, Denies constipation, Reports diarrhea, Reports nausea and Reports vomiting Genitourinary Genitourinary: Denies dysuria Musculoskeletal Musculoskeletal: Denies back pain, Denies myalgias, Denies neck pain, Denies numbness and Denies tingling Integumentary/Breasts Skin/Breast: Denies rash Neurologic Neurologic: Reports dizziness (Described as lightheaded), Denies headache(s), Denies numbness, Denies tingling and Reports weakness Endocrine Endocrine: Reports fatigue [facility], [facility] Medical History Abdominal pain Acute gastroenteritis (03/16/18) Acute kidney injury (nontraumatic) Acute pneumonitis Anxiety (03/16/18) Asthma Asthma Back pain CHF (congestive heart failure) Chronic constipation (03/16/18) Cognitive impairment (03/16/18) Mild, w/Memory Loss Cubital tunnel syndrome (03/16/18) Depressive disorder DKA (diabetic ketoacidoses) Dyspnea (03/16/18) Edema (03/16/18) Essential hypertension (07/17/13) Gastroesophageal reflux disease without esophagitis (03/16/18) History of shingles (03/16/18) Hyperlipemia Insulin dependent diabetes mellitus Internal derangement of right knee Interstitial lung disease (03/16/18) Pulm: [place] Long-term use of high-risk medication (03/16/18) Metabolic acidosis with normal anion gap and bicarbonate losses Migraine (04/03/14) Neck pain (03/16/18) 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 History of section Ligation of fallopian tube Thoracoscopic (R)Lung Bx (02/12/18) Family History Mother , aged 81 from dementia, per Elly Diabetes Essential hypertension CHF (congestive heart failure) Heart disease CHF/heart failure Dementia Father , aged 80 Diabetes Essential hypertension CAD (coronary artery disease) Heart disease [place] Hyperlipidemia Stroke Sister , aged 54 Diabetes Personal history of malignant neoplasm Lung Asthma Lung cancer Brother , of mesithelioma aged 62 Diabetes Essential hypertension Personal history of malignant neoplasm Lung, Prostate Hyperlipidemia Asthma Mesothelioma Brother , of PE following knee surgery age 69 Pulmonary embolus with infarction Daughter No problems noted. Son No problems noted. Social History Smoking/Tobacco Use Status: Never Smoking risk assessment performed?: Yes Alcohol Intake: never Details: monthly or less Drug use: Never Substance use type: does not use Adopted: No Caregiver/Support person: Yes Foster care: No Household members: none Housing: apartment Number of Children: 2 number of grandchildren: 5 Communication Needs: Hard of Hearing and Corrective Lenses Education Level: middle school Do you need help understanding health information?: Always current occupation: disabled Pets and animals: Yes Pets and animals: cat(s) Sexually active: No Do you think of yourself as: straight/heterosexual Current gender identity: female What is your relationship status?: How often do you talk on the phone with friends or family?: three or more times per week How often do you get together with friends or relatives?: three or more times per week How often do you attend judaism or yazidism services?: 1-3 times per year Do you belong to any clubs or organized social groups?: no Panel score (0-1 are the most socially isolated patients): 1 What type of physical activity do you participate in: none and sedentary lifestyle Duration: < 15 minutes/day Frequency: 1-2 times per week Bibi/Methodist: Islam Special bibi needs: No Agree to transfusion: Yes Seatbelt use: sometimes Helmet use: No Drive intox or ride w/intox telephone directory distributor driver: No Water heater temp set <120 deg: Yes Working smoke detector in home: Yes Fire extinguisher in home: Yes Carbon monox detector in home: Yes Do you feel safe at home: Yes Do you feel safe in your relationship?: Yes Victim of physical abuse: No Victim of emotional abuse: No Victim of sexual abuse: No Would you like helpful sources: No Additional Social history: Lives in her own apartment in the [facility] near the hospital. Leodan Kang used to live with her. His phone # is [phone]. Daughter Caridad lives in [place]. Son Himanshu lives in [facility], not as close to him. Gets together with brother Brian regularly who takes her shopping and goes for drives. [place] visit her home frequently. Exam Const General: cooperative and no acute distress Orientation: alert, awake, oriented to person, oriented to place and not oriented to time HENNE Head: normal to inspection, normocephalic and atraumatic Mouth: moist mucous membranes abnormal (Dry) Eyes General: appearance normal, both eyes and all related structures Conjunctivae: conjunctivae normal Sclera: sclerae normal Neck Neck: normal visual inspection, full ROM, no meningeal signs, trachea midline, supple and nontender Resp Effort & Inspection: normal respiratory effort and able to speak in complete sentences Auscultation: clear to auscultation bilaterally Cardio Rate: tachycardic (102) Rhythm: regular rhythm GI Inspection: normal to inspection Palpation: soft, not firm, no guarding, no pulsatile masses and tender (Diffuse, mild, deep palpation) Auscultation: normal bowel sounds Back/Spine/Pelvis Back: No back tenderness Skin General skin exam: no rashes or lesions noted Neuro General: patient alert, patient awake, moves all extremities and no focal motor deficits Cranial Nerves: CN's II-XI intact bilaterally Cognition: normal cognition Speech: speech normal Motor: muscle tone normal throughout Sensory Exam: no sensory deficits noted Extrem General: normal to inspection, full ROM, capillary refill normal, no pedal edema and no calf tenderness Psych Appearance: grossly normal Mental Status: mental status grossly normal Course Vital Signs Vital signs: Vital Signs Temperature 36.3 C L 11/12/20 08:04 Pulse 101 H 11/12/20 08:04 Blood Pressure 159/79 H 11/12/20 08:04 Pulse Oximetry 100 11/12/20 08:04 Temperature 36.3 C L 11/12/20 08:04 Temperature Source Temporal Artery Scan 11/12/20 08:04 Pulse 101 H 11/12/20 08:04 Respiratory Effort Non-Labored 11/12/20 08:12 Blood Pressure 159/79 H 11/12/20 08:04 Blood Pressure Position Sitting 11/12/20 08:04 Pulse Oximetry 100 11/12/20 08:04 Oxygen Delivery Method Room Air 11/12/20 08:04 Oxygen Flow Rate 0 11/12/20 08:04 Lab/Test Results Lab/Test Results: Laboratory Tests Range/Units 11/12/20 11/12/20 11/12/20 08:12 08:12 09:33 WBC (4.4-10.8) 10^3/uL 12.82 H RBC (3.93-5.22) 10^6/uL 5.41 H Hgb (11.2-15.7) g/dL 16.2 H Hct (36.0-46.0) % 49.8 H MCV (80-95) fL 92.1 MCH (27.0-33.0) pg 29.9 MCHC (32.0-36.0) % 32.5 RDW (11.7-14.6) % 13.5 Plt Count (130-400) 10^3/uL 300 MPV (8.0-11.0) fL 11.3 H Immature Gran % 0.4 Neutrophils % 68.9 Lymphocytes % 24.0 Monocytes % 5.4 Eosinophils % 0.6 Basophils % 0.7 Nucleated RBC % % 0 Absolute Neutrophils (1.2-6.7) 10^3/uL 8.83 H Absolute Lymphocytes (1.2-3.4) 10^3/uL 3.08 Absolute Monocytes (0.1-0.8) 10^3/uL 0.69 Absolute Eosinophils (0.0-0.7) 10^3/uL 0.08 Absolute Basophils (0.0-0.2) 10^3/uL 0.09 ABG Sample Site Cancelled ABG pH Cancelled ABG pCO2 Cancelled ABG pO2 Cancelled ABG HCO3 Cancelled ABG Total CO2 Cancelled ABG O2 Saturation Cancelled ABG Base Excess Cancelled Oxygen Liter Flow Cancelled FiO2 Cancelled Sodium (136-145) mmol/L 130 L Potassium (3.5-5.1) mmol/L 4.1 Chloride (98-107) mmol/L 89 L Carbon Dioxide (21.0-32.0) mmol/L 20.2 L Anion Gap (3-11) mmol/L 20.8 H BUN (7-18) mg/dL 33 H Creatinine (0.55-1.02) mg/dL 2.17 H Estimated GFR/1.73 m2 (mL/min/1.73m2) 22.48 Glucose (74-106) mg/dL 639 H* Calcium (8.5-10.1) mg/dL 9.3 Magnesium (1.8-2.4) mg/dL 2.6 H Total Bilirubin (0.2-1.0) mg/dL 1.0 AST (15-37) U/L 10 L ALT (14-59) U/L 20 Alkaline Phosphatase (46-116) U/L 118 H Troponin I (<0.06) ng/mL < 0.05 Total Protein (6.4-8.2) g/dL 8.0 Albumin (3.4-5.0) g/dL 3.7 Urine Color (Yellow) Urine Clarity (Clear) Urine pH (5-8) Ur Specific [place] (1.005-1.025) Urine Protein (Negative) mg/dL Urine Ketones (Negative) mg/dL Urine Blood (Negative) Urine Nitrite (Negative) Urine Bilirubin (Negative) Urine Urobilinogen (Up TO 0.2) EU/dL Ur Leukocyte Esterase (Negative) Urine Glucose (Negative) mg/dL Range/Units 11/12/20 09:35 WBC (4.4-10.8) 10^3/uL RBC (3.93-5.22) 10^6/uL Hgb (11.2-15.7) g/dL Hct (36.0-46.0) % MCV (80-95) fL MCH (27.0-33.0) pg MCHC (32.0-36.0) % RDW (11.7-14.6) % Plt Count (130-400) 10^3/uL MPV (8.0-11.0) fL Immature Gran % Neutrophils % Lymphocytes % Monocytes % Eosinophils % Basophils % Nucleated RBC % % Absolute Neutrophils (1.2-6.7) 10^3/uL Absolute Lymphocytes (1.2-3.4) 10^3/uL Absolute Monocytes (0.1-0.8) 10^3/uL Absolute Eosinophils (0.0-0.7) 10^3/uL Absolute Basophils (0.0-0.2) 10^3/uL ABG Sample Site ABG pH ABG pCO2 ABG pO2 ABG HCO3 ABG Total CO2 ABG O2 Saturation ABG Base Excess Oxygen Liter Flow FiO2 Sodium (136-145) mmol/L Potassium (3.5-5.1) mmol/L Chloride (98-107) mmol/L Carbon Dioxide (21.0-32.0) mmol/L Anion Gap (3-11) mmol/L BUN (7-18) mg/dL Creatinine (0.55-1.02) mg/dL Estimated GFR/1.73 m2 (mL/min/1.73m2) Glucose (74-106) mg/dL Calcium (8.5-10.1) mg/dL Magnesium (1.8-2.4) mg/dL Total Bilirubin (0.2-1.0) mg/dL AST (15-37) U/L ALT (14-59) U/L Alkaline Phosphatase (46-116) U/L Troponin I (<0.06) ng/mL Total Protein (6.4-8.2) g/dL Albumin (3.4-5.0) g/dL Urine Color (Yellow) Yellow Urine Clarity (Clear) Clear Urine pH (5-8) 5.5 Ur Specific [place] (1.005-1.025) 1.015 Urine Protein (Negative) mg/dL Negative Urine Ketones (Negative) mg/dL 40 H Urine Blood (Negative) Negative Urine Nitrite (Negative) Negative Urine Bilirubin (Negative) Small H Urine Urobilinogen (Up TO 0.2) EU/dL 0.2 Ur Leukocyte Esterase (Negative) Negative Urine Glucose (Negative) mg/dL 500 H Critical Care Time Critical Care Time Critical Care Time: Yes Total Critical Care Time: 35 Attestation: Upon my evaluation, this patient had a high probability of clinically significant, life-threatening deterioration due to their current medical conditions, which required my direct attention, intervention, and personal management. I have personally provided greater than 30 minutes of critical care time exclusive of the time spend on separately billable procedures. Time includes obtaining a history, examining the patient, pulse oximetry, review of laboratory data, radiology results, discussion with consultants, arranging urgent treatment with development of a management plan, evaluation of patient's response to treatment, and monitoring for potential decompensation. Interventions were performed as documented above.
[2020-11-12 10:34] LABS: BE (Venous) -10 mmol/L (-2-3); HCO3 (Venous) 19 mmol/L (23-28); O2 Sat (Venous) 79 %; TCO2 (Venous) 17 mmol/L (24-29); pCO2 (Venous) 48 mmHg (41-51); pO2 (Venous) 51 mmHg
--- OUTSIDE RECORDS SUMMARY | 2020-11-12 10:39 | XMS_ITS ---
:1950 Author Care Team Providers Name Role Phone MONE SANTIAGO MD Hat Finisher Unavailable SANDRA SNEED MD Teller [phone] [facility] Primary Care Provider [phone] Allergies Code Code System Name Reaction Severity Status Onset 1191 RxNorm Aspirin ? ? Active ? 3355 RxNorm Diclofenac Rash ? Active ? [id number] RxNorm Latex ? ? Active ? 7052 RxNorm Morphine ? ? Active ? Nsaids Hives ? Active ? (Non-steroidal Anti-inflammato ry Drug) Medications Name Status Start Date Stop Date ? ? albuterol sulfate 2.5 mg/3 mL Active ? No t available (0.083 %) solution for nebulization amoxicillin 875 mg-potassium Completed ? 11/2018 clavulanate 125 mg tablet azithromycin 250 mg tablet Completed ? 05/24 baclofen 10 mg tablet Completed 09/04/2017 11/30/2017 1 (one) Tablet Tablet: 2-3 times a day as needed benzonatate 100 mg capsule Active ? Not a vailable bisacodyl 5 mg tablet,delayed Active ? No t available release Breo Ellipta 200 mcg-25 mcg/dose powder for inhalation Active ? Not available Inhale 1 puff every day by inhalation route. bupropion HCl XL 150 mg 24 hr tablet, extended release Completed 07/28/2016 08/26/2016 1 (one) Tablet: daily codeine 10 mg-guaifenesin 100 mg/5 mL oral liquid Active ? Not available Take 5 mL every day by oral route at bedtime. cyclobenzaprine 5 mg tablet Active ? Not available donepezil 10 mg tablet Completed 07/04/2017 7 0 Tablet: daily, as needed donepezil 5 mg tablet Active ? Not availa ble escitalopram 10 mg tablet Active ? Not av ailable furosemide 20 mg tablet Active ? Not avai lable furosemide 40 mg tablet Active ? Not avai lable gabapentin 600 mg tablet Completed 02/28/2017 018 1 (one) Tablet: tid - three times a day glimepiride 4 mg tablet Active ? Not avai lable Humalog KwikPen (U-100) Insulin Active ? Not available 100 unit/mL subcutaneous hydroxyzine HCl 10 mg tablet Completed 07/14/201705/2018 1 (one) Milligram: bid - twice daily ketoconazole 2 % topical cream Active ? N ot available Klor-Con 20 mEq oral packet Active ? Not available Lantus Solostar U-100 Insulin Active ? No t available 100 unit/mL (3 mL) subcutaneous pen lidocaine 5 % topical ointment Active ? N ot available lisinopril 5 mg tablet Completed 09/01/2016 7 1 (one) Tablet: daily lorazepam 0.5 mg tablet Completed 12/20/2016 07/04/20 17 1 (one) Tablet: bid and every 6 hours as needed losartan 25 mg tablet Active ? Not availa ble Mapap Extra Strength 500 mg Active ? Not available tablet metformin ER 500 mg 24 hr tablet,extended release Completed 07/28/2016 08/26/2016 1 (one) Tablet: daily metoclopramide 10 mg tablet Active ? Not available metoclopramide 5 mg tablet Completed 11/03/201711/30 1 (one) Tablet Tablet: twice a day Ofev 100 mg capsule Active ? Not availabl e Take 1 capsule twice a day by oral route. Ofev 150 mg capsule Active ? Not availabl e Take 1 capsule every 12 hours by oral route. onetouch mis 30g Active ? Not availab le OneTouch Ultra Blue Test Strip Active ? N ot available OneTouch UltraMini kit Completed 07/28/2016 7 1 (one) Kit Kit: test 3X daily pantoprazole 40 mg Active ? Not available tablet,delayed release prednisone 10 mg tablet Completed ? 05/24/20 19 prednisone 20 mg tablet Completed ? 05/24/20 19 Protonix Completed ? 05/24/2019 Take in the morning sertraline 100 mg tablet Completed 07/28/2016 016 1 (one) Tablet: twice daily simvastatin 40 mg tablet Active ? Not edil ilable spironolactone 25 mg tablet Active ? Not available Stiolto Respimat 2.5 mcg-2.5 mcg/actuation solution for inhalati on Active ? Not available Inhale 2 puffs every day by inhalation route. sucralfate 1 gram tablet Active ? Not edil ilable tizanidine 2 mg tablet Completed 07/28/2016 6 1 (one) Tablet: twice daily Tradjenta 5 mg tablet Active ? Not availa ble tramadol 50 mg tablet Completed 09/12/2017 11/30/2017 1 (one) Tablet: every 8 hours as needed Tresiba FlexTouch U-200 insulin Active ? Not available 200 unit/mL (3 mL) subcutaneous pen TRUEplus Lancets 28 gauge Active ? Not av ailable Ventolin HFA 90 mcg/actuation Active ? No t available aerosol inhaler Zofran ODT 4 mg disintegrating tablet Completed 04/18/2017 08/15/2017 1 (one) Tablet Tablet: translingual every 6 hours as needed Problems Name Status Onset Date Source ? Recurrent Major Depression Active ? Histo ry Minimal Cognitive Impairment Active ? His tory Degenerative Brain Disorder Active ? Hist ory Disorder of Nervous System Active ? Histo ry Lesion of Ulnar Nerve Active ? History Disorder of Eyelid Active ? History Hypertensive Disorder Active ? 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 History Asthma Active ? History Interstitial Lung Disease Active ? Histor y Chronic Constipation Active ? History Neck Pain Active ? History Backache Active ? History Osteoporosis Active ? History Anosognosia Active ? History Eruption Active ? History Dyspnea Active ? History Vomiting Active ? History Diarrhea Active ? History Abdominal Pain Active ? History Active Immunization Active ? History History of Infectious Disease Unknown ? Hi story Long-term Current Use of Drug Therapy Active ? History Finding of Esophagus Unknown ? History Hyperglycemia Due to Type 2 Diabetes Mellitus Active ? History Inflammatory Disorder of Digestive Tract Active ? History SNOMED CT Concept Unknown ? History Pain in Finger of Left Hand Active ? Hist ory Procedures Date Name Performed by ? 02/12/2018 Biopsy of Lung Information not avai lable Notes: right lung ? Appendectomy Information not avai lable ? Cholecystectomy Information not avai lable Notes: Per Dr Aguirre, at age 20 ? Tubal Ligation Information not avai lable 11/26/2018 CT, Chest, W/o Contrast Xray [facility] [address] [place], [place] [address] (Work Place) 05/24/2019 CT, Chest, W/o Contrast [facility] spital Radiology (Internal) [address] [place] [address] (Work Place) 11/08/2019 CT, Chest, W/o Contrast Xray [facility] [address] [place], [place] [address] (Work Place) 02/14/2020 CT, Chest, W/o Contrast Xray [facility] [address] [place], [place] [address] (Work Place) Results Lab Results Date Name Specimen Result Interpretation Description Value Range Status Address ? 11/13/2019 Hepatic ? No observation ? ? ? [facility] Function recorded. [facility] Panel, Serum [facility]: [address], [place] 11/13/2019 CBC W/ Auto ? No observation ? ? ? [facility] Diff recorded. [facility]: [address], [place] 02/23/2018 Venipuncture BLD ? Venpn* ? ? Final [facility] Hospital L ab (Internal) : [address] 02/23/2018 HbA1C BLD High Ha1C >12.6 4.0-6. Final [facility] (Hemoglobin % 0 % [facility] a1C), Blood (Inte rnal): [address] 02/15/2018 Cbc BLD ? Wbc 6.7 5.0-10 [facility] 10*3/u .0 Hospital L ab L 10*3/u (Internal) : L [address] ? ? BLD Low Rbc 3.75 4.10-5 Final [facility] try 10*6/u .30 Hospital L ab L 10*6/u (Internal) : L [address] ? ? BLD Low Hgb 11.0 12.0-[address] [facility] try g/dL 6.0 Hospital L ab g/dL (Internal) : [address] ? ? BLD Low Hct 34.1 % 37.0-4 Final [facility] try 7.0 % Hospital L ab (Internal) : [address] ? ? BLD ? Mcv 90.9 80.0-[address] [facility] try fL 6.0 fL Hospital L ab (Internal) : [address] t ? ? BLD ? Mch 29.3 26.0-3 Final [facility] try pg 2.0 pg Hospital L ab (Internal) : [address] ? ? BLD ? Mchc 32.3 31.0-3 Final [facility] try g/dL 5.0 Hospital L ab g/dL (Internal) : [address] ? ? BLD ? Rdw 13.6 % 11.5-1 Final [facility] try 4.5 % Hospital L ab (Internal) : [address] ? ? BLD ? Plt 216 130-45 Final [facility] try 10*3/u 0 Hospital L ab L 10*3/u (Internal) : L [address] t ? ? BLD ? Anc 4.33 ? Final [facility] try 10*3/u Hospital L ab L (Internal) : [address] t 02/15/2018 Venipuncture BLD ? Venpn* ? ? Final [facility] Hospital L ab (Internal) : [address] t 02/14/2018 Glucose, Serum PLASMA High g/r 396 74-106 Final [facility] or Plasma mg/dL mg/dL Hospita l Lab (Internal) : [address] t 02/14/2018 Glucose, Serum PLASMA High g/r 392 74-106 Final [facility] or Plasma mg/dL mg/dL Hospita l Lab (Internal) : [address] t 02/13/2018 Cbc BLD ? Wbc 7.5 5.0-10 Final [facility] 10*3/u .0 Hospital L ab L 10*3/u (Internal) : L [address] t ? ? BLD ? Rbc 4.17 4.10-5 Final [facility] try 10*6/u .30 Hospital L ab L 10*6/u (Internal) : L [address] t ? ? BLD ? Hgb 12.2 12.0-1 Final [facility] try g/dL 6.0 Hospital L ab g/dL (Internal) : [address] ? ? BLD ? Hct 37.6 % 37.0-4 Final [facility] try 7.0 % Hospital L ab (Internal) : [address] ? ? BLD ? Mcv 90.2 80.0-9 Final [facility] try fL 6.0 fL Hospital L ab (Internal) : [address] ? ? BLD ? Mch 29.3 26.0-3 Final [facility] try pg 2.0 pg Hospital L ab (Internal) : [address] ? ? BLD ? Mchc 32.4 31.0-3 Final [facility] try g/dL 5.0 Hospital L ab g/dL (Internal) : [address] ? ? BLD ? Rdw 13.7 % 11.5-1 Final [facility] try 4.5 % Hospital L ab (Internal) : [address] ? ? BLD ? Plt 240 130-45 Final [facility] try 10*3/u 0 Hospital L ab L 10*3/u (Internal) : L [address] ? ? BLD ? Anc 4.70 ? Final [facility] try 10*3/u Hospital L ab L (Internal) : [address] t 02/13/2018 Venipuncture BLD ? Venpn* ? ? Final [facility] Hospital L ab (Internal) : [address] t 02/13/2018 Glucose, Serum PLASMA High g/r 290 74-106 Final [facility] or Plasma mg/dL mg/dL Hospita l Lab (Internal) : [address] t 02/13/2018 Glucose, Serum PLASMA High g/r 414 74-106 Final [facility] or Plasma mg/dL mg/dL Hospita l Lab (Internal) : [address] t 02/12/2018 Venipuncture BLD ? Venpn* ? ? Final [facility] Hospital L ab (Internal) : [address] t 02/12/2018 Pathology TISS ? Report result ? Final No [facility] Hospital L ab below (Internal) : [address] t 02/12/2018 Glucose, Serum PLASMA High g/r 436 74-106 Final [facility] or Plasma mg/dL mg/dL Hospita l Lab (Internal) : [address] 01/18/2018 Venipuncture BLD ? Venpn* ? ? Final [facility] Hospital L ab (Internal) : [address] 01/18/2018 Neutrophil S ? C-anca negati negati Final [facility] Cytoplasmic ve ve Hospi car[facility] alberto Lab Ab, (Internal) : Perinuclear, [address] QL, IF, Serum [address] ? ? S ? P-anca negati negati Final [facility] ntry ve ve Hospital L ab (Internal) : [address] 01/18/2018 Creatinine, S ? Crea 0.90 0.52-1 Final [facility] Serum or mg/dL .04 Hospital Lab Plasma mg/dL (Internal) : [address] 01/18/2018 Prothrombin BLD ? Pt 9.8 S 9.1-11 Final [facility] Country Time .7 S Hospital L ab (Internal) : [address] ? ? BLD ? Inr 0.9 ? Final [facility] try Hospital L ab (Internal) : [address] 01/18/2018 Bun (Blood S ? Bun 14 7-17 Final No rt Country Urea mg/dL mg/dL Hospital L ab Nitrogen), (Inter nal): Serum or [address] 01/18/2018 CBC W/ Auto BLD ? Wbc 7.9 5.0-10 Final [facility] Country Diff 10*3/u .0 Hospital L ab L 10*3/u (Internal) : L [address] ? ? BLD ? Rbc 5.02 4.10-[address] [facility] try 10*6/u .30 Hospital L ab L 10*6/u (Internal) : L [address] ? ? BLD ? Hgb 14.6 12.0-[address] [facility] try g/dL 6.0 Hospital L ab g/dL (Internal) : [address] ? ? BLD ? Hct 44.0 % 37.0-[address] [facility] try 7.0 % Hospital L ab (Internal) : [address] ? ? BLD ? Mcv 87.6 80.0-9 Final [facility] try fL 6.0 fL Hospital L ab (Internal) : [address] [place] ? ? BLD ? Mch 29.1 26.0-3 Final [facility] try pg 2.0 pg Hospital L ab (Internal) : [address] [place] ? ? BLD ? Mchc 33.2 31.0-3 Final [facility] try g/dL 5.0 Hospital L ab g/dL (Internal) : [address] [place] ? ? BLD ? Rdw 13.8 % 11.5-1 Final [facility] try 4.5 % Hospital L ab (Internal) : [address] [place] ? ? BLD ? Plt 251 130-45 Final [facility] try 10*3/u 0 Hospital L ab L 10*3/u (Internal) : L [address] [place] ? ? BLD ? Anc 5.37 ? Final [facility] try 10*3/u Hospital L ab L (Internal) : [address] [place] ? ? BLD ? Neutro 67.7 % 40.0-7 Final [facility] ntry 5.0 % Hospital L ab (Internal) : [address] [place] ? ? BLD ? Lymph 24.5 % 20.0-5 Final [facility] try 0.0 % Hospital L ab (Internal) : [address] [place] ? ? BLD ? [place] 5.5 % 2.0-10 Final [facility] try .0 % Hospital L ab (Internal) : [address] [place] ? ? BLD ? Eos 1.4 % 1.0-6. Final [facility] try 0 % Hospital L ab (Internal) : [address] [place] ? ? BLD ? Baso 0.5 % 0.0-1. Final [facility] try 0 % Hospital L ab (Internal) : [address] [place] ? ? BLD ? Ig 0.4 % 0.0-0. Final [facility] try 9 % Hospital L ab (Internal) : [address] 01/18/2018 ESR BLD ? Esr 22 0-30 Final [facility] (Erythrocyte mm/h mm/h Hosp ital Lab Sedimentation (In ternal): Rate), Blood [address] 01/18/2018 Rf (Rheumatoid BLD ? Rfq 20 ? Final [facility] Factor), {titer Hospital Lab Titer, Serum } (Int ernal): [address] t 01/18/2018 Rf (Rheumatoid BLD ABNORMA Rf positi negati [place] l [facility] Factor), Serum L ve ve < Ho spital Lab [IU]/m 10 (Internal) : L [IU]/m [address] 01/18/2018 Cyclic S ? Cyclic <15.6 <20.0 Final [facility] Citrullinated Citrullinated U ([facility] Lab Peptide Ab, Peptide Ab, S savanna) U (Internal): Quant [address] Immun[address]assay, Dr [place] Serum 01/18/2018 CARLOS S ABNORMA CARLOS positi negat Final [facility] (Antinuclear L Interpretation ve Hospital Lab Antibodies) (Inte rnal): Screen, Serum [address] t ? ? S ? Antibody Titer 1:40 ? Final N orth [facility] Pattern speckl Hospital Lab ed (Internal) : [address] 01/18/2018 Extractable S ? ss-A/RO Ab, <0.2 U <1.0 Fi nal [facility] Nuclear Ab, IgG, S ([facility] Hospi carlos alberto Lab QN, Serum savanna) U ([place] al): [address] t ? ? S ? ss-B/la Ab, <0.2 U <1.0 Final [facility] IgG, S ([facility] L ab savanna) U (Internal) : [address] t ? ? S ? Sm Ab, IgG, S <0.2 U <1.0 Final No [facility] ([facility] L ab savanna) U (Internal) : [address] t ? ? S ? Soda Flaker Ab, IgG, S <0.2 U <1.0 Final N orth [facility] ([facility] L ab savanna) U (Internal) : [address] t ? ? S ? Scl 70 Ab, <0.2 U <1.0 Final [facility] IgG, S ([facility] L ab savanna) U (Internal) : [address] t ? ? S ? Soco 1 Ab, IgG, <0.2 U <1.0 Final No [facility]th [facility] S ([facility] Hospital L ab savanna) U (Internal) : [address] [facility] 01/05/2018 Venipuncture BLD ? Venpn* ? ? Final [facility] Hospital L ab (Internal) : [address] [facility] 01/05/2018 HbA1C BLD High Ha1C >12.6 4.0-6. Correc [facility] (Hemoglobin % 0 % ольга Hospi [facility]to Lab a1C), Blood (Inte rnal): [address] [facility] 10/02/2017 Venipuncture BLD ? Venpn* ? ? Final [facility] Hospital L ab (Internal) : [address] [facility] 10/02/2017 HbA1C BLD High Ha1C 10.5 % 4.0-6. Final [facility] (Hemoglobin 0 % Hospi car[facility] alberto Lab a1C), Blood (Inte rnal): [address] [facility] 09/11/2017 Venipuncture BLD ? Venpn* ? ? Final [facility] Hospital L ab (Internal) : [address] [facility] 09/11/2017 CBC W/ Auto BLD ? Wbc 6.7 5.0-10 Final [facility] Country Diff 10*3/u .0 Hospital L ab L 10*3/u (Internal) : L [address] ? ? BLD Low Rbc 4.01 4.10-5 Final [facility] try 10*6/u .30 Hospital L ab L 10*6/u (Internal) : L [address] ? ? BLD Low Hgb 11.4 12.0-1 Final [facility] try g/dL 6.0 Hospital L ab g/dL (Internal) : [address] ? ? BLD Low Hct 34.6 % 37.0-4 Final [facility] try 7.0 % Hospital L ab (Internal) : [address] ? ? BLD ? Mcv 86.3 80.0-9 Final [facility] try fL 6.0 fL Hospital L ab (Internal) : [address] ? ? BLD ? Mch 28.4 26.0-3 Final [facility] try pg 2.0 pg Hospital L ab (Internal) : [address] [place] ? ? BLD ? Mchc 32.9 31.0-3 Final [facility] try g/dL 5.0 Hospital L ab g/dL (Internal) : [address] [place] ? ? BLD ? Rdw 14.4 % 11.5-1 Final [facility] try 4.5 % Hospital L ab (Internal) : [address] [place] ? ? BLD ? Plt 235 130-45 Final [facility] try 10*3/u 0 Hospital L ab L 10*3/u (Internal) : L [address] [place] ? ? BLD ? Anc 4.31 ? Final [facility] try 10*3/u Hospital L ab L (Internal) : [address] [place] ? ? BLD ? Neutro 64.0 % 40.0-7 Final [facility] ntry 5.0 % Hospital L ab (Internal) : [address] [place] ? ? BLD ? Lymph 24.3 % 20.0-5 Final [facility] try 0.0 % Hospital L ab (Internal) : [address] [place] ? ? BLD ? [place] 6.4 % 2.0-10 Final [facility] try .0 % Hospital L ab (Internal) : [address] [place] ? ? BLD ? Eos 4.6 % 1.0-6. Final [facility] try 0 % Hospital L ab (Internal) : [address] [place] ? ? BLD ? Baso 0.4 % 0.0-1. Final [facility] try 0 % Hospital L ab (Internal) : [address] [place] ? ? BLD ? Ig 0.3 % 0.0-0. Final [facility] try 9 % Hospital L ab (Internal) : [address], [place] 09/11/2017 BMP, Serum or S ? g/r 77 74-106 Final [facility] Plasma mg/dL mg/dL Hospital L ab (Internal) : [address] [place] ? ? S ? Bun 9 7-[address] [facility] try mg/dL mg/dL Hospital L ab (Internal) : [address] [place] ? ? S ? Crea 0.80 0.52-1 Final [facility] try mg/dL .04 Hospital L ab mg/dL (Internal) : [address] ? ? S ? Ca 8.9 8.4-10 Final [facility] try mg/dL .2 Hospital L ab mg/dL (Internal) : [address] ? ? S ? Na 142 137-[address] [facility] try mmol/L 5 Hospital L ab mmol/L (Internal) : [address] ? ? S ? K 3.8 3.5-5. Final [facility] try mmol/L 1 Hospital L ab mmol/L (Internal) : [address] ? ? S High Cl 110 98-[address] [facility] try mmol/L mmol/L Hospital L ab (Internal) : [address] ? ? S ? Tco2 25.0 22.0-[address] [facility] try mmol/L 0.0 Hospital L ab mmol/L (Internal) : [address] 09/10/2017 Venipuncture BLD ? Venpn* ? ? Final [facility] Hospital L ab (Internal) : [address] 09/10/2017 CBC W/ Auto BLD ? Wbc 5.3 5.0-10 Final [facility] Country Diff 10*3/u .0 Hospital L ab L 10*3/u (Internal) : L [address] ? ? BLD Low Rbc 3.89 4.10-[address] [facility] try 10*6/u .30 Hospital L ab L 10*6/u (Internal) : L [address] ? ? BLD Low Hgb 11.2 12.0-[address] [facility] try g/dL 6.0 Hospital L ab g/dL (Internal) : [address] ? ? BLD Low Hct 33.5 % 37.0-4 Final [facility] try 7.0 % Hospital L ab (Internal) : [address] ? ? BLD ? Mcv 86.1 80.0-[address] [facility] try fL 6.0 fL Hospital L ab (Internal) : [address] ? ? BLD ? Mch 28.8 26.0-3 Final [facility] try pg 2.0 pg Hospital L ab (Internal) : [address] [place] ? ? BLD ? Mchc 33.4 31.0-3 Final [facility] try g/dL 5.0 Hospital L ab g/dL (Internal) : [address] [place] ? ? BLD ? Rdw 14.3 % 11.5-1 Final [facility] try 4.5 % Hospital L ab (Internal) : [address] [place] ? ? BLD ? Plt 235 130-45 Final [facility] try 10*3/u 0 Hospital L ab L 10*3/u (Internal) : L [address] [place] ? ? BLD ? Anc 3.13 ? Final [facility] try 10*3/u Hospital L ab L (Internal) : [address] [place] ? ? BLD ? Neutro 59.6 % 40.0-7 Final [facility] 5.0 % Hospital L ab (Internal) : [address] [place] ? ? BLD ? Lymph 28.8 % 20.0-5 Final [facility] try 0.0 % Hospital L ab (Internal) : [address] [place] ? ? BLD ? [place] 7.0 % 2.0-10 Final [facility] try .0 % Hospital L ab (Internal) : [address] [place] ? ? BLD ? Eos 3.8 % 1.0-6. Final [facility] try 0 % Hospital L ab (Internal) : [address] ? ? BLD ? Baso 0.6 % 0.0-1. Final [facility] try 0 % Hospital L ab (Internal) : [address] ? ? BLD ? Ig 0.2 % 0.0-0. Final [facility] try 9 % Hospital L ab (Internal) : [address] 09/10/2017 BMP, Serum or S Low g/r 71 74-106 Final [facility] Plasma mg/dL mg/dL Hospital L ab (Internal) : [address] ? ? S ? Bun 9 7-[address] [facility] try mg/dL mg/dL Hospital L ab (Internal) : [address] ? ? S ? Crea 0.80 0.52-1 Final [facility] try mg/dL .04 Hospital L ab mg/dL (Internal) : [address] ? ? S ? Ca 8.6 8.4-10 Final [facility] try mg/dL .2 Hospital L ab mg/dL (Internal) : [address] ? ? S ? Na 141 137-[address] [facility] try mmol/L 5 Hospital L ab mmol/L (Internal) : [address] ? ? S Low K 3.1 3.5-5. Final [facility] try mmol/L 1 Hospital L ab mmol/L (Internal) : [address] ? ? S High Cl 110 98-107 Final [facility] try mmol/L mmol/L Hospital L ab (Internal) : [address] ? ? S ? Tco2 23.0 22.0-[address] [facility] try mmol/L 0.0 Hospital L ab mmol/L (Internal) : [address] 09/09/2017 Venipuncture BLD ? Venpn* ? ? Final [facility] L [facility] (Internal) : [address] 09/09/2017 CBC W/ Auto BLD ? Wbc 5.8 5.0-10 Final [facility] Country Diff 10*3/u .0 Hospital L ab L 10*3/u (Internal) : L [address] ? ? BLD Low Rbc 3.70 4.10-[address] [facility] try 10*6/u .30 Hospital L ab L 10*6/u (Internal) : L [address] ? ? BLD Low Hgb 10.7 12.0-[address] [facility] try g/dL 6.0 Hospital L ab g/dL (Internal) : [address] ? ? BLD Low Hct 32.9 % 37.0-4 Final [facility] try 7.0 % Hospital L ab (Internal) : [address] ? ? BLD ? Mcv 88.9 80.0-[address] [facility] try fL 6.0 fL Hospital L ab (Internal) : [address] ? ? BLD ? Mch 28.9 26.0-3 Final [facility] try pg 2.0 pg Hospital L ab (Internal) : [address] [place] ? ? BLD ? Mchc 32.5 31.0-3 Final [facility] try g/dL 5.0 Hospital L ab g/dL (Internal) : [address] [place] ? ? BLD ? Rdw 14.5 % 11.5-1 Final [facility] try 4.5 % Hospital L ab (Internal) : [address] [place] ? ? BLD ? Plt 214 130-45 [facility] try 10*3/u 0 Hospital L ab L 10*3/u (Internal) : L [address] ? ? BLD ? Anc 3.20 ? Final [facility] try 10*3/u Hospital L ab L (Internal) : [address] ? ? BLD ? Neutro 55.7 % 40.0-7 Final [facility] 5.0 % Hospital L ab (Internal) : [address] [place] ? ? BLD ? Lymph 30.4 % 20.0-5 Final [facility] try 0.0 % Hospital L ab (Internal) : [address] [place] ? ? BLD ? [place] 8.9 % 2.0-10 [facility] try .0 % Hospital L ab (Internal) : [address] [place] ? ? BLD ? Eos 4.0 % 1.0-6. Final [facility] try 0 % Hospital L ab (Internal) : [address] ? ? BLD ? Baso 0.7 % 0.0-1. Final [facility] try 0 % Hospital L ab (Internal) : [address] [place] ? ? BLD ? Ig 0.3 % 0.0-0. Final [facility] 9 % [facility] L ab (Internal) : [address] [place] 09/09/2017 BMP, Serum or S ? g/r 90 74-106 Final [facility] Plasma mg/dL mg/dL Hospital L ab (Internal) : [address] ? ? S ? Bun 11 7-17 Final [facility] mg/dL mg/dL Hospital L ab (Internal) : [address] ? ? S ? Crea 0.90 0.52-1 Final [facility] mg/dL .04 Hospital L ab mg/dL (Internal) : [address] ? ? S Low Ca 7.8 8.4-10 Final [facility] mg/dL .2 Hospital L ab mg/dL (Internal) : [address] ? ? S ? Na 141 137-14 [facility] mmol/L 5 Hospital L ab mmol/L (Internal) : [address] ? ? S Low K 3.4 3.5-5. Final [facility] mmol/L 1 Hospital L ab mmol/L (Internal) : [address] ? ? S High Cl 113 98-107 Final [facility] mmol/L mmol/L Hospital L ab (Internal) : [address] ? ? S ? Tco2 22.0 22.0-3 Final [facility] mmol/L 0.0 Hospital L ab mmol/L (Internal) : [address] 09/08/2017 Venipuncture BLD ? Venpn* ? ? Final [facility] L [facility] (Internal) : [address] 09/08/2017 CBC W/ Auto BLD ? Wbc 6.3 5.0-10 Final [facility] Diff 10*3/u .0 Hospital L ab L 10*3/u (Internal) : L [address] t ? ? BLD Low Rbc 3.92 4.10-5 Final [facility] try 10*6/u .30 Hospital L ab L 10*6/u (Internal) : L [address] ? ? BLD Low Hgb 11.2 12.0-1 Final [facility] g/dL 6.0 Hospital L ab g/dL (Internal) : [address] ? ? BLD Low Hct 34.4 % 37.0-4 Final [facility] 7.0 % Hospital L ab (Internal) : [address] ? ? BLD ? Mcv 87.8 80.0-9 Final [facility] fL 6.0 fL Hospital L ab (Internal) : [address] [place] ? ? BLD ? Mch 28.6 26.0-3 Final [facility] pg 2.0 pg Hospital L ab (Internal) : [address] [place] ? ? BLD ? Mchc 32.6 31.0-3 Final [facility] g/dL 5.0 Hospital L ab g/dL (Internal) : [address] [place] ? ? BLD ? Rdw 14.4 % 11.5-1 Final [facility] 4.5 % Hospital L ab (Internal) : [address] [place] ? ? BLD ? Plt 242 130-45 Final [facility] 10*3/u 0 Hospital L ab L 10*3/u (Internal) : L [address] [place] ? ? BLD ? Anc 3.38 ? Final [facility] 10*3/u Hospital L ab L (Internal) : [address] [place] ? ? BLD ? Neutro 54.1 % 40.0-7 Final [facility] 5.0 % Hospital L ab (Internal) : [address] [place] ? ? BLD ? Lymph 34.8 % 20.0-5 Final [facility] 0.0 % Hospital L ab (Internal) : [address] [place] ? ? BLD ? [place] 7.5 % 2.0-10 Final [facility] .0 % Hospital L ab (Internal) : [address] [place] ? ? BLD ? Eos 2.7 % 1.0-6. Final [facility] 0 % Hospital L ab (Internal) : [address] [place] ? ? BLD ? Baso 0.6 % 0.0-1. Final [facility] 0 % [facility] L ab (Internal) : [address] [place] ? ? BLD ? Ig 0.3 % 0.0-0. [facility] 9 % [facility] L [facility] (Internal) : [address] [place] 09/08/2017 BMP, Serum or PLASMA High g/r 154 74-106 Final [facility] Plasma mg/dL mg/dL Hospital L ab (Internal) : [address] [place] ? ? PLASMA High Bun 20 7-[address] [facility] try mg/dL mg/dL Hospital L ab (Internal) : [address] ? ? PLASMA ? Crea 1.00 0.52-1 Final [facility] mg/dL .04 Hospital L ab mg/dL (Internal) : [address] ? ? PLASMA Low Ca 8.0 8.4-10 Final [facility] try mg/dL .2 Hospital L ab mg/dL (Internal) : [address] ? ? PLASMA ? Na 138 137-14 [facility] mmol/L 5 Hospital L ab mmol/L (Internal) : [address] ? ? PLASMA ? K 3.6 3.5-5. Final [facility] mmol/L 1 Hospital L ab mmol/L (Internal) : [address] ? ? PLASMA High Cl 109 98-[address] [facility] try mmol/L mmol/L Hospital L ab (Internal) : [address] ? ? PLASMA ? Tco2 22.0 22.0-[address] [facility] try mmol/L 0.0 Hospital L ab mmol/L (Internal) : [address] 09/08/2017 CRP, High PLASMA High Rcrp 0.44 0.10-[address] [facility] Sensitivity, mg/dL .30 Hosp ital Lab Serum or mg/dL (Interna l): Plasma [address] 09/07/2017 Venipuncture BLD ? Venpn* ? ? Final [facility] Hospital L ab (Internal) : [address] 09/07/2017 Ph, Venous BLD ? Venous pH 7.36 7.32-7 Final [facility] [pH] .43 Hospital L ab [pH] (Internal) : [address] ? ? BLD ? Pco2 41 33-[address] [facility] try mm[hg] mm[hg] Hospital L ab (Internal) : [address] ? ? BLD ? TCO2, Venous 25 ? Final [facility] mmol/L Hospital L ab (Internal) : [address] ? ? BLD ? Base -2.1 ? Final [facility] try mmol/L Hospital L ab (Internal) : [address] 09/07/2017 Culture, Urine UR ? Final microb ? Final [facility] iology Hospital L ab result (Internal) : s [address], [place] [address] 09/07/2017 Lactic Acid, S High La 2.9 0.7-2. Final [facility] Blood mmol/L 1 Hospital L ab mmol/L (Internal) : [address] 09/07/2017 Urinalysis, UR ? UA-WBC 0-3 0-3 Final [facility] Microscopic [hpf] [hpf] [facility]pi [facility] Lab (Internal) : [address] ? ? UR ? UA-RBC 0-2 0-2 Final [facility] ntry [hpf] [hpf] Hospital L ab (Internal) : [address] ? ? UR ABNORMA UA-bacteria few none Final [facility] L [hpf] seen Hospital L ab [hpf] (Internal) : [address] ? ? UR ABNORMA UA-epithelial few none Final [facility] L [hpf] seen Hospital L ab [hpf] (Internal) : [address] [place] ? ? UR ? UA-mucus none none Final [facility] ountry seen seen Hospital ab [hpf] [hpf] (Internal) : [address] [place] ? ? UR ABNORMA Yeast, UA few none Final [facility] L [hpf] seen Hospital ab [hpf] (Internal) : [address] ? ? UR ABNORMA Renal Cells rare none Final [facility] L [hpf] seen Hospital L ab [hpf] (Internal) : [address] [place] ? ? UR ? Clue Cells rare ? Final [facility] [hpf] Hospital L ab (Internal) : [address] 09/07/2017 Urinalysis, UR ? UA-color yellow pale Final [facility] Dipstick, yellow Hospita l Lab Reflex Micro (Int ernal): [address] ? ? UR ? UA-appear clear clear Final [facility] Hospital L ab (Internal) : [address] ? ? UR ? UA-spec Grav <=1.00 1.003- Final [facility] 5 1.035 Hospital L ab (Internal) : [address] ? ? UR ? UA-pH 5.5 4.6-8. Final [facility] [pH] 0 [pH] Hospital L ab (Internal) : [address] ? ? UR ? UA-leuk Est negati negati [facility] (Internal) : [address] ? ? UR ? UA-nitrite negati negati [facility] L ab (Internal) : [address] ? ? UR ? UA-prot negati negati [facility] L ab (Internal) : [address] ? ? UR ABNORMA UA-gluc 4+ negati [facility] ([facility] : [address] ? ? UR ABNORMA UA-ketone 1+ negati [facility] L ab (Internal) : [address] ? ? UR ? UA-urobil normal normal [facility] ab (Internal) : [address] ? ? UR ? UA-bili negati negati [facility] ab (Internal) : [address] ? ? UR ABNORMA UA-blood trace negati [facility] ab (Internal) : [address] 09/07/2017 Lipase, Serum S ? Lip 44 U/L 23-300 Final [facility] [address] 09/07/2017 CMP, Serum or S CRITICA g/r 556 74-106 Final [facility] Plasma L HIGH mg/dL mg/dL Hospital L ab (Internal) : [address] ? ? S High Bun 24 7-[address] [facility] try mg/dL mg/dL Hospital L ab (Internal) : [address] ? ? S ? Crea 1.00 0.52-1 [facility] Coun try mg/dL .04 Hospital L ab mg/dL (Internal) : [address] ? ? S ? Ca 9.4 8.4-10 Final [facility] mg/dL .2 Hospital L ab mg/dL (Internal) : [address] ? ? S Low Na 129 137-14 Final [facility] mmol/L 5 Hospital L ab mmol/L (Internal) : [address] ? ? S ? K 4.5 3.5-5. Final [facility] mmol/L 1 Hospital L ab mmol/L (Internal) : [address] ? ? S Low Cl 96 98-107 Final [facility] try mmol/L mmol/L Hospital L ab (Internal) : [address] ? ? S Low Tco2 18.0 22.0-3 Final [facility] try mmol/L 0.0 Hospital L ab mmol/L (Internal) : [address] ? ? S ? Tp 7.8 6.3-8. Final [facility] try g/dL 2 g/dL Hospital L ab (Internal) : [address] ? ? S ? Alb 4.5 3.5-5. Final [facility] g/dL 0 g/dL Hospital L ab (Internal) : [address] ? ? S High Tbil 1.4 0.2-1. [address] [facility] try mg/dL 3 Hospital L ab mg/dL (Internal) : [address] ? ? S ? Alp 108 38-[address] [facility] try U/L U/L Hospital L ab (Internal) : [address] ? ? S ? Alt (Sgpt) 28 U/L 9-52 Final [facility] U/L Hospital L ab (Internal) : [address] ? ? S ? Ast (Sgot) 26 U/L 14-36 Final [facility] U/L Hospital L ab (Internal) : [address] 09/07/2017 CBC W/ Auto BLD High Wbc 10.4 5.0-10 Final [facility] Diff 10*3/u .0 Hospital L ab L 10*3/u (Internal) : L [address] ? ? BLD ? Rbc 4.89 4.10-5 Final [facility] try 10*6/u .30 Hospital L ab L 10*6/u (Internal) : L [address] ? ? BLD ? Hgb 13.9 12.0-1 Final [facility] try g/dL 6.0 Hospital L ab g/dL (Internal) : [address] ? ? BLD ? Hct 41.8 % 37.0-4 Final [facility] try 7.0 % Hospital L ab (Internal) : [address] ? ? BLD ? Mcv 85.5 80.0-9 [facility] fL 6.0 fL Hospital L ab (Internal) : [address] ? ? BLD ? Mch 28.4 26.0-3 Final [facility] try pg 2.0 pg Hospital L ab (Internal) : [address] ? ? BLD ? Mchc 33.3 31.0-3 Final [facility] try g/dL 5.0 Hospital L ab g/dL (Internal) : [address] ? ? BLD ? Rdw 14.4 % 11.5-1 Final [facility] try 4.5 % Hospital L ab (Internal) : [address] ? ? BLD ? Plt 329 130-45 Final [facility] try 10*3/u 0 Hospital L ab L 10*3/u (Internal) : L [address] ? ? BLD ? Anc 7.24 ? Final [facility] try 10*3/u Hospital L ab L (Internal) : [address] ? ? BLD ? Neutro 69.5 % 40.0-7 Final [facility] 5.0 % Hospital L ab (Internal) : [address] [place] ? ? BLD ? Lymph 22.8 % 20.0-5 Final [facility] try 0.0 % Hospital L ab (Internal) : [address] ? ? BLD ? [place] 6.4 % 2.0-10 Final [facility] .0 % Hospital L ab (Internal) : [address] ? ? BLD Low Eos 0.5 % 1.0-6. Final [facility] 0 % Hospital L ab (Internal) : [address], [place] ? ? BLD ? Baso 0.5 % 0.0-1. Final [facility] 0 % Hospital [facility] (Internal) : [address] ? ? BLD ? Ig 0.3 % 0.0-0. Final [facility] try 9 % Hospital [facility] (Internal) : [address] 09/04/2017 Culture, Urine UR ? Final microb ? Final [facility] iology Hospital [facility] result (Internal) : s [address] 09/04/2017 Urinalysis, UR ? UA-WBC 0-3 0-3 Final [facility] Microscopic [hpf] [hpf] [facility]pi [facility] Lab (Internal) : [address] ? ? UR ? UA-RBC 0-2 0-2 [facility] ntry [hpf] [hpf] Hospital [facility] (Internal) : [address] ? ? UR ? UA-bacteria rare none [facility] [[facility]pf] seen Hospital [facility] [hpf] (Internal) : [address] ? ? UR ? UA-epithelial rare none Final [facility] [hpf] seen Hospital [facility] [hpf] (Internal) : [address] ? ? UR ? UA-mucus none none Final [facility] ountry seen seen [facility] [hpf] [hpf] (Internal) : [address] 09/04/2017 Urinalysis, UR ? UA-color yellow pale Final [facility] Dipstick, yellow Hospita l Lab Reflex Micro (Int ernal): [address] ? ? UR ? UA-appear clear clear Final [facility] (Internal) : [address] ? ? UR ABNORMA UA-gluc 2+ negati [facility] [address] ? ? UR ? UA-bili negati negati [facility] untry ve [facility] (Internal) : [address] ? ? UR ABNORMA UA-ketone trace negati [facility] L Hospital [facility] (Internal) : [address] ? ? UR ? UA-spec Grav 1.010 1.003- Final [facility] 1.035 Hospital L ab (Internal) : [address] ? ? UR ABNORMA UA-blood trace negati Final [facility] Hospital L ab (Internal) : [address] ? ? UR ? UA-pH 5.0 4.6-8. Final [facility] [pH] 0 [pH] Hospital L ab (Internal) : [address] ? ? UR ? UA-prot negati negati Final [facility] untry [facility] Hospital L ab (Internal) : [address] ? ? UR ? UA-urobil normal normal Final [facility] Hospital L ab (Internal) : [address] ? ? UR ? UA-nitrite negati negati [facility] Hospital L ab (Internal) : [address] ? ? UR ? UA-leuk Est negati negati [facility] L ab (Internal) : [address] 08/15/2017 Venipuncture BLD ? Venpn* ? ? Final [facility] Hospital L ab (Internal) : [address] 08/15/2017 CBC W/ Auto BLD ? Wbc 8.3 5.0-10 [facility] Diff 10*3/u .0 Hospital L ab L 10*3/u (Internal) : L [address] ? ? BLD ? Rbc 4.96 4.10-5 [facility] Coun try 10*6/u .30 Hospital L ab L 10*6/u (Internal) : L [address] ? ? BLD ? Hgb 14.1 12.0-1 [facility] Coun try g/dL 6.0 Hospital L ab g/dL (Internal) : [address] ? ? BLD ? Hct 43.1 % 37.0-4 [facility] Coun try 7.0 % Hospital L ab (Internal) : [address] ? ? BLD ? Mcv 86.9 80.0-9 [facility] try fL 6.0 fL Hospital L ab (Internal) : [address] ? ? BLD ? Mch 28.4 26.0-3 [facility] pg 2.0 pg Hospital L ab (Internal) : [address] ? ? BLD ? Mchc 32.7 31.0-3 Final [facility] g/dL 5.0 Hospital L ab g/dL (Internal) : [address] ? ? BLD High Rdw 15.0 % 11.5-1 Final [facility] try 4.5 % Hospital L ab (Internal) : [address] ? ? BLD ? Plt 305 130-45 [facility] try 10*3/u 0 Hospital L ab L 10*3/u (Internal) : L [address] ? ? BLD ? Anc 5.55 ? Final [facility] try 10*3/u Hospital L ab L (Internal) : [address] ? ? BLD ? Neutro 66.8 % 40.0-7 [facility] n[facility] 5.0 % Hospital L ab (Internal) : [address] ? ? BLD ? Lymph 24.8 % 20.0-5 [facility] try 0.0 % Hospital L ab (Internal) : [address] ? ? BLD ? [place] 5.5 % 2.0-10 [facility] .0 % Hospital L ab (Internal) : [address] ? ? BLD ? Eos 2.0 % 1.0-6. Final [facility] try 0 % Hospital L ab (Internal) : [address] ? ? BLD ? Baso 0.7 % 0.0-1. Final [facility] try 0 % Hospital L ab (Internal) : [address] ? ? BLD ? Ig 0.2 % 0.0-0. Final [facility] try 9 % Hospital L ab (Internal) : [address] 08/15/2017 CRP, High S High Rcrp 0.67 0.10-0 Final [facility] Sensitivity, mg/dL .30 Hosp ital Lab Serum or mg/dL (Interna l): Plasma [address] 07/05/2017 Venipuncture BLD ? Venpn* ? ? Final [facility] Hospital L ab (Internal) : [address] 07/05/2017 BMP, Serum or S High g/r 380 74-106 Final [facility] Plasma mg/dL mg/dL Hospital L ab (Internal) : [address] ? ? S High Bun 19 7-[address] [facility] try mg/dL mg/dL Hospital L ab (Internal) : [address] ? ? S ? Crea 0.90 0.52-[address] [facility] try mg/dL .04 Hospital L ab mg/dL (Internal) : [address] ? ? S ? Ca 8.9 8.4-[address] [facility] try mg/dL .2 Hospital L ab mg/dL (Internal) : [address] ? ? S ? Na 137 137-[address] [facility] try mmol/L 5 Hospital L ab mmol/L (Internal) : [address] ? ? S ? K 3.8 3.5-5. Final [facility] try mmol/L 1 Hospital L ab mmol/L (Internal) : [address] ? ? S ? Cl 101 98-[address] [facility] try mmol/L mmol/L Hospital L ab (Internal) : [address] ? ? S ? Tco2 23.0 22.0-[address] [facility] try mmol/L 0.0 Hospital L ab mmol/L (Internal) : [address] 07/05/2017 HbA1C BLD High Ha1C 12.1 % 4.0-6. Final [facility] (Hemoglobin 0 % Hospi car[facility] alberto Lab a1C), Blood (Inte rnal): [address] 04/18/2017 Culture, Urine UR ? Final microb ? Final [facility] iology Hospital L ab result (Internal) : s [address] t 04/18/2017 Urinalysis, UR ABNORMA UA-WBC 5-10 0-3 Final [facility] Microscopic L [hpf] [hpf] Hospi [facility] Lab (Internal) : [address] ? ? UR ? UA-RBC 0-2 0-2 Final [facility] ntry [hpf] [hpf] Hospital L (Internal) : [address] ? ? UR ABNORMA UA-bacteria modera none Final [facility] L te seen Hospital [facility] [hpf] [hpf] (Internal) : [address] ? ? UR ABNORMA UA-epithelial modera none Final [facility] L te seen Hospital [facility] [hpf] [hpf] (Internal) : [address] ? ? UR ABNORMA UA-mucus modera none Final [facility] L te seen Hospital [facility] [hpf] [hpf] (Internal) : [address] ? ? UR ? Hyaline C few ? Final [facility] [hpf] Hospital [facility] (Internal) : [address] 04/18/2017 Urinalysis, UR ? UA-color yellow pale Final [facility] Dipstick, yellow Hospita l Lab Reflex Micro (Int ernal): [address] ? ? UR ABNORMA UA-appear hazy clear Final [facility] (Internal) : [address] ? ? UR ? UA-spec Grav >=1.03 1.003- Final [facility] 0 1.035 Hospital [facility] (Internal) : [address] ? ? UR ? UA-pH 5.5 4.6-8. Final [facility] [pH] 0 [pH] Hospital [facility] (Internal) : [address] ? ? UR ABNORMA UA-leuk Est trace negati Final [facility] Hospital [facility] (Internal) : [address] ? ? UR ? UA-nitrite negati negati Final [facility] ve Hospital [facility] (Internal) : [address] ? ? UR ABNORMA UA-prot 1+ negati [facility] (Internal) : [address] ? ? UR ? UA-gluc negati negati Final [facility] (Internal) : [address] ? ? UR ABNORMA UA-ketone 1+ negati Final [facility] Hospital [facility] (Internal) : [address] ? ? UR ? UA-urobil normal normal Final [facility] Hospital L ab (Internal) : [address] ? ? UR ABNORMA UA-bili small negati Final [facility] ountry L ve Hospital L ab (Internal) : [address] ? ? UR ABNORMA UA-blood modera negati Final [facility] L te ve Hospital L ab (Internal) : [address] 04/18/2017 Lipase, Serum S ? Lip 51 U/L 23-300 Final [facility] or Plasma U/L Hospita l Lab (Internal) : [address] 04/18/2017 CMP, Serum or S High g/r 275 74-106 Final [facility] Plasma mg/dL mg/dL Hospital L ab (Internal) : [address] ? ? S ? Bun 15 7-17 [facility] try mg/dL mg/dL Hospital L ab (Internal) : [address] ? ? S ? Crea 0.90 0.52-1 [facility] try mg/dL .04 Hospital L ab mg/dL (Internal) : [address] ? ? S ? Ca 9.4 8.4-10 [facility] try mg/dL .2 Hospital L ab mg/dL (Internal) : [address] ? ? S ? Na 139 137-14 [facility] try mmol/L 5 Hospital L ab mmol/L (Internal) : [address] ? ? S ? K 4.7 3.5-5. Final [facility] try mmol/L 1 Hospital L ab mmol/L (Internal) : [address] ? ? S ? Cl 102 98-107 [facility] try mmol/L mmol/L Hospital L ab (Internal) : [address] ? ? S ? Tco2 24.0 22.0-3 [facility] try mmol/L 0.0 Hospital L ab mmol/L (Internal) : [address] ? ? S ? Tp 7.6 6.3-8. Final [facility] try g/dL 2 g/dL Hospital L ab (Internal) : [address] ? ? S ? Alb 4.1 3.5-5. Final [facility] try g/dL 0 g/dL Hospital L ab (Internal) : [address] ? ? S ? Tbil 0.9 0.2-1. Final [facility] try mg/dL 3 Hospital L ab mg/dL (Internal) : [address] ? ? S ? Alp 121 38-[address] [facility] try U/L U/L Hospital L ab (Internal) : [address] ? ? S ? Alt (Sgpt) 16 U/L 9-52 Final [facility] U/L Hospital L ab (Internal) : [address] ? ? S ? Ast (Sgot) 25 U/L 14-36 Final [facility] U/L Hospital L ab (Internal) : [address] 04/18/2017 CBC W/ Auto BLD ? Wbc 9.3 5.0-10 Final [facility] Diff 10*3/u .0 Hospital L ab L 10*3/u (Internal) : L [address] ? ? BLD ? Rbc 4.42 4.10-5 [facility] try 10*6/u .30 Hospital L ab L 10*6/u (Internal) : L [address] ? ? BLD ? Hgb 12.5 12.0-[address] [facility] try g/dL 6.0 Hospital L ab g/dL (Internal) : [address] ? ? BLD ? Hct 38.6 % 37.0-4 [facility] try 7.0 % Hospital L ab (Internal) : [address] ? ? BLD ? Mcv 87.3 80.0-9 [facility] try fL 6.0 fL Hospital L ab (Internal) : [address] ? ? BLD ? Mch 28.3 26.0-3 [facility] try pg 2.0 pg Hospital L ab (Internal) : [address] ? ? BLD ? Mchc 32.4 31.0-3 [facility] try g/dL 5.0 Hospital L ab g/dL (Internal) : [address] ? ? BLD ? Rdw 13.2 % 11.5-1 Final [facility] try 4.5 % Hospital L ab (Internal) : [address] ? ? BLD ? Plt 332 130-45 [facility] try 10*3/u 0 Hospital L ab L 10*3/u (Internal) : L [address] ? ? BLD ? Anc 7.09 ? Final [facility] try 10*3/u Hospital L ab L (Internal) : [address] ? ? BLD High Neutro 76.7 % 40.0-7 Final [facility] ntry 5.0 % Hospital L ab (Internal) : [address] ? ? BLD Low Lymph 14.6 % 20.0-5 Final [facility] try 0.0 % Hospital L ab (Internal) : [address] ? ? BLD ? [place] 5.8 % 2.0-[address] [facility] try .0 % Hospital L ab (Internal) : [address] ? ? BLD ? Eos 2.1 % 1.0-6. Final [facility] try 0 % Hospital L ab (Internal) : [address] ? ? BLD ? Baso 0.4 % 0.0-1. Final [facility] try 0 % Hospital L ab (Internal) : [address] ? ? BLD ? Ig 0.4 % 0.0-0. Final [facility] try 9 % Hospital L ab (Internal) : [address] 04/07/2017 Venipuncture BLD ? Venpn* ? ? Final [facility] Hospital L ab (Internal) : [address] 04/07/2017 TSH, Serum or S ? Tsh 0.47 0.47-4 Final [facility] Plasma u[IU]/ .68 Hospital L ab mL u[IU]/ (Internal) : mL [address] 04/07/2017 CMP, Serum or S High g/r 260 74-106 Final [facility] Plasma mg/dL mg/dL Hospital L ab (Internal) : [address], [address] ? ? S ? Bun 16 7-17 Final [facility] mg/dL mg/dL Hospital L ab (Internal) : [address] t ? ? S ? Crea 0.90 0.52-1 [facility] mg/dL .04 Hospital L ab mg/dL (Internal) : [address] t ? ? S ? Ca 9.4 8.4-10 Final [facility] mg/dL .2 Hospital L ab mg/dL (Internal) : [address] t ? ? S ? Na 141 137-14 [facility] mmol/L 5 Hospital L ab mmol/L (Internal) : [address] t ? ? S ? K 4.4 3.5-5. [facility] mmol/L 1 Hospital L ab mmol/L (Internal) : [address] t ? ? S ? Cl 105 98-107 Final [facility] mmol/L mmol/L Hospital L ab (Internal) : [address] t ? ? S ? Tco2 27.0 22.0-3 [facility] mmol/L 0.0 Hospital L ab mmol/L (Internal) : [address] t ? ? S ? Tp 7.4 6.3-8. Final [facility] g/dL 2 g/dL Hospital L ab (Internal) : [address] t ? ? S ? Alb 3.9 3.5-5. Final [facility] g/dL 0 g/dL Hospital L ab (Internal) : [address] t ? ? S ? Tbil 0.7 0.2-1. Final [facility] mg/dL 3 Hospital L ab mg/dL (Internal) : [address] t ? ? S ? Alp 110 38-126 [facility] U/L U/L Hospital L ab (Internal) : [address] t ? ? S ? Alt (Sgpt) 15 U/L 9-52 Final [facility] U/L Hospital L [facility] (Internal) : [address] t ? ? S ? Ast (Sgot) 24 U/L 14-36 Final [facility] U/L [facility] L [facility] (Internal) : [address] t 04/07/2017 HbA1C BLD High Ha1C 9.0 % 4.0-6. Final [facility] (Hemoglobin 0 % [facility] a1C), Blood (Inte rnal): [address] Past Encounters 11/05/2020 Interstitial Lung Disease Mone Santiago MD: [address] [place] [address] Dr savanna Antony [address] [place] [phone], Ph. 07/10/2020 Interstitial Lung Disease Mone Santiago MD: [address] [place] [address] Dr savanna Antony [address] [place] [phone], Ph. 02/14/2020 Interstitial Lung Disease Mone Santiago MD: [address] [place] [address] Dr savanna Antony [address] [place] [address] [phone], Ph. 11/08/2019 Interstitial Lung Disease oMne Santiago MD: [address] [place] [address] Dr savanna Antony [address] [place] [address] [phone], Ph. 05/24/2019 Interstitial Lung Disease Moen Santiago MD: [address] [place] [address] Dr savanna Antony [address] [place] [phone], Ph. Social History Tobacco Smoking Status Never Smoker Vaccine List Vaccine Type influenza, high dose seasonal 07/04/2017?0.5 mL influenza, injectable, quadrivalent 07/23/2018 08/21/2019 pneumococcal conjugate PCV 13 07/04/2017?0.5 mL pneumococcal polysaccharide PPV23 07/16/2017 Tdap 04/10/2012 Plan of Care Reminders Provider Appointments None ? ? recorded. Lab None ? ? recorded. Referral None ? ? recorded. Procedures None ? ? recorded. Surgeries None ? ? recorded. Imaging None ? ? recorded. Vitals 11/05/2020 01:00PM Office 15 Height Weight BMI Blood Pressure 151.13 cm 78 kg 34.2 kg/m2 127/77 mm[Hg] 07/10/2020 02:30PM Office 15 Height Weight BMI Blood Pressure 151.13 cm 78.4 kg 34.3 kg/m2 118/60 mm[Hg] 02/14/2020 10:15AM Office 15 Height Weight BMI 151.13 cm 79 kg 34.6 kg/m2 11/08/2019 02:45PM Office 30 Height Weight BMI Blood Pressure 151.13 cm 80.9 kg 35.4 kg/m2 119/65 mm[Hg] 05/24/2019 11:00AM Office 30 Height Weight BMI Blood Pressure 151.13 cm 83.15 kg 36.4 kg/m2 142/80 mm[Hg] 11/26/2018 01:45PM Follow Up 30 Height Weight BMI Blood Pressure 151.13 cm 93 kg 40.7 kg/m2 126/80 mm[Hg] 03/09/2018 10:00AM Follow Up 20 Height Weight BMI Blood Pressure 151.13 cm 78.34 kg 34.3 kg/m2 124/78 mm[Hg] 01/10/2018 Height Weight Blood Pressure 149.86 cm 75.89 kg 128/80 mm[Hg] 11/30/2017 Weight Blood Pressure 78.15 kg 124/70 mm[Hg] 11/09/2017 Height Weight Blood Pressure 149.86 cm 79.83 kg 140/90 mm[Hg] 09/18/2017 Weight Blood Pressure 82.27 kg 132/80 mm[Hg] 09/04/2017 Height Weight Blood Pressure 151.76 cm 80.29 kg 132/80 mm[Hg] 08/15/2017 Height Weight Blood Pressure 151.76 cm 78.34 kg 146/80 mm[Hg] 07/04/2017 Height Weight Blood Pressure 151.76 cm 79.51 kg 158/78 mm[Hg] 04/07/2017 Height Weight Blood Pressure 151.76 cm 82.64 kg 146/78 mm[Hg] 03/16/2017 Height Weight Blood Pressure 151.76 cm 83.01 kg 130/90 mm[Hg] 01/09/2017 Weight Blood Pressure 80.83 kg 132/70 mm[Hg] 11/17/2016 Weight Blood Pressure 77.97 kg 160/78 mm[Hg] 10/07/2016 Height Weight Blood Pressure 151.13 cm 73.48 kg 138/70 mm[Hg] 09/09/2016 Weight Blood Pressure 73.39 kg 132/72 mm[Hg] 08/30/2016 Height Weight Blood Pressure 148.59 cm 71.58 kg 155/78 mm[Hg] 08/26/2016 Weight Blood Pressure 69.67 kg 122/70 mm[Hg]
--- OUTSIDE RECORDS SUMMARY | 2020-11-12 10:39 | XMS_ITS | Encounter Summary ---
:1950 Author Care Team Providers Name Role Phone [facility] Provider [phone] Mone Santiago MD Social Services Assistant Unavailable Cheyenne Flores MD Product Builder [phone] Reason for Visit None recorded. Assessment and Plan 1. Interstitial lung disease Her interstitial lung disease may be related to chronic hypersensitivity pneumonitis, given the fact that there were some granuloma seen in the fibrosis but otherwise followed the UIP pattern. This could also represent underlying co nnective tissue disease related pulmonary fibrosis. Rheumatoid factor was positive, CARLOS positive, but anti- citrullinated peptide antibody was negative. Per rheumatology her joint changes are m ore characteristic of osteoarthritic changes and not of rheumatoid arthritis. Dr. Flores did not recommend further disease modifying agents as the Myomarkers panel was negative. The pattern of her interstitial disease on chest CT is not fully typical of idiopathic pulmonary fibrosis, the thoracoscopic lung biopsy also was not fully consistent with that diagnosis, but now there is published data that disease modifying agents even for this scenario do slow down the disease progression even if the pulmonary fibrosis is related to connective tissue disease or chronic hypersensiti vity pneumonitis. Based on this she was started on Ofev 150 twice daily in October,. She tolerated it okay, initially she had watery diarrhea, so her dose was decreased to Ofev 100 mg twice a day. She is tolerating that well. We will con tinue with that. On chest CT 09/03/2020 she has no progre ssion of the disease. In the May CAT scan the entire scan was taken in an exhalatory phase, that is why there appeared to be more infiltrates. This was not real deterioration of the disease. Full pulmonary function test will be car ried out in the next month and then she will follow-up with me for 1 more appointment. She knows I am leaving the practice She has had a major decline in diffusion capacity between 2016 and October 2019. After this she was started on Ofev. At next visit in September,, will or mildred another new pulmonary function test to make sure that her pulmonary functions are stabilizing out on definitive therapy. LFTs will be carried out before the next visit here, order was sent She will continue with Breo inhaler, and Ventolin In the past when she was treated with ev en moderate dose steroids for a prolonged period of time her diabetes got so severely [id number] that she needed to be hospitalized. Therefore we will try to steer clear from parenteral steroids. She will continue with 2 L/min minute [place] pplemental oxygen at night and 4 L/min on exertion. She can stay on room air at rest At next visit we will also review her p neumonia vaccinations. If she has not gotten her pneumococcal 23 vaccine, this will be offered. ? [facility] ? hepatic function panel, [facility] Discussion Note 30+ minutes was spent chart preppin g, reviewing history and counseling and providing medical care.j Patient educational handouts: No information available. Plan of Care Reminders Provider Appointments Office 30 Bere Santiago, 02/26/2021 1:45PM Lab Hepatic [facility] Function Panel, Serum 11/05/[facility] Referral None ? ? recorded. Procedures None ? ? recorded. Surgeries None ? ? recorded. Imaging None ? ? recorded. Medications Name Start Date ? ? albuterol sulfate 2.5 mg/3 mL (0.083 %) solution for n ebulization ? benzonatate 100 mg capsule ? bisacodyl 5 mg tablet,delayed release ? Breo Ellipta 200 mcg-25 mcg/dose powder for inhalation ? Inhale 1 puff every day by inhalation route. codeine 10 mg-guaifenesin 100 mg/5 mL oral liquid ? Take 5 mL every day by oral route at bedtime. cyclobenzaprine 5 mg tablet ? donepezil 5 mg tablet ? Take 1 tablet every day by oral route. escitalopram 10 mg tablet ? Once daily furosemide 20 mg tablet ? furosemide 40 mg tablet ? glimepiride 4 mg tablet ? Take 1 tablet twice a day by oral route. Humalog KwikPen (U-100) Insulin 100 unit/mL subcutaneo us ? ketoconazole 2 % topical cream ? Klor-Con 20 mEq oral packet ? Lantus Solostar U-100 Insulin 100 unit/mL (3 mL) subcu taneous pen ? 75 units daily lidocaine 5 % topical ointment ? losartan 25 mg tablet ? Take 1 tablet every day by oral route. Mapap Extra Strength 500 mg tablet ? metoclopramide 10 mg tablet ? Ofev 100 mg capsule ? Take 1 capsule twice a day by oral route. Ofev 150 mg capsule ? Take 1 capsule every 12 hours by oral route. onetouch mis 30g ? OneTouch Ultra Blue Test Strip ? Take 1 strip 3 times a day by miscell. route. pantoprazole 40 mg tablet,delayed release ? simvastatin 40 mg tablet ? spironolactone 25 mg tablet ? Stiolto Respimat 2.5 mcg-2.5 mcg/actuation solution fo r inhalation ? Inhale 2 puffs every day by inhalation route. sucralfate 1 gram tablet ? Tradjenta 5 mg tablet ? Tresiba FlexTouch U-200 insulin 200 unit/mL (3 mL) sub cutaneous pen ? TRUEplus Lancets 28 gauge ? Ventolin HFA 90 mcg/actuation aerosol inhaler ? Medications Administered None recorded. Vitals Height Weight BMI Blood Pressure 4 ft 11.5 in 78 kg 34.2 kg/m2 127/77 mm[Hg] Results Lab Results None recorded. Allergies Code Code System Name Reaction Severity Onset 1191 RxNorm Aspirin ? ? ? 3355 RxNorm Diclofenac Rash ? ? 2811740 RxNorm Latex ? ? ? 7052 RxNorm Morphine ? ? ? Nsaids Hives ? ? (Non-steroidal Anti-inflammatory Drug) Problems Name Status Onset Date Source ? [...] ? History Active Immunization Active ? History Long-term Current Use of Drug Therapy Active ? History Hyperglycemia Due to Type 2 Diabetes Mellitus Active ? History Inflammatory Disorder of Digestive Tract Active ? History Pain in Finger of Left Hand Active ? Hist ory Procedures Date Name Performed by ? 02/12/2018 Biopsy of Lung Information not avai lable Notes: right lung ? Appendectomy Information not avai lable ? Cholecystectomy Information not avai lable Notes: Per Dr Aguirre, at age 20 ? Tubal Ligation Information not avai lable Vaccine List Vaccine Type influenza, high dose seasonal 07/04/2017?0.5 mL influenza, injectable, quadrivalent 07/23/2018 08/21/2019 pneumococcal conjugate PCV 13 07/04/2017?0.5 mL pneumococcal polysaccharide PPV23 07/16/2017 Tdap 04/10/2012 Social History Tobacco Smoking Status Never Smoker Exposure to Asbestos N Exposure to Chemicals or Toxins N Pets? N Blind or serious difficulty seeing N Language Difficulties No Deaf or serious difficulty hearing N Most Recent Tobacco Use Screening 11/26/2018 Advance directive Y Notes: Advance Di rective dated 11/01/2013 Exposure to Silica N Functional Status No Impairment. Past Encounters 11/05/2020 Interstitial Lung Disease Mone Santiago MD: [address] [place] [address] Dr corrales [address] [phone], Ph. History of Present Illness Note: <p>Patient is a 70-year-old woman who comes in for followup on interstitial lung disease,detected on chest CT and thoracoscopic lung biopsy on 02/12/2018.</p><p>
</p&g t;<p>
</p><p>She initially complained of worsening shortness of breath onexertion and some dry cough. She also complained of joint stiffness, morning stiffness, pain, tenderness, and swelling especially at the MCP and PIP joints. This was evaluated by rheumatology, she saw Dr. Cheyenne Flores on 06/12/2018, I reviewed the notes, impression was that the patient had no joint changes related to rheumatoid arthritis, rather only osteoarthritic changes.</p><p>Because the patient had a previous positive speckled CARLOS, Myomarker panel was ordered. This all came back negative. Her Feeling was that with a negative Myomarker panel, disease modifying agents such as CellCept or Remicade would have very little to add to controlling the patient's interstitial lung disease.</p><p>Patient continue to stay on the Breo inhaler all along, and was treated with 20 mgof prednisone for 14 days then 10 mg for 30 days in November,. She says that that has helped her breathing. Eventually was weaned off.</p><p>
</p><p>She is now using Ventolin up to 3 times a day and her Breo. She is now on supplemental oxygen 2 L/min at night, andon 4 L/min on exertion, and room air at rest. She still has some joint pains including the hands andknees and wrists but no swelling or stiffness.</p><p>She had a hospital admission in September, to [facility] because of double pneumonia, she was sent home on antibiotics, she recovered well, she is now back to baseline in terms of her breathing. Her chest x-ray from 09/25/2019 did not show any acute infiltrate.</p><p>She had an ER visit in September, for vomiting and dehyd ration.
</p><p>SHe was started on Ofev 150 mg twice a day in October, for progressive pulmonary fibrosis related to inflammatory interstitial lung disease, possible rheumatological disease or hypersensitivity pneumonitis. She is tolerating the medication well, though she had watery diarrhea. After changing her diet and steering clear from carbs and increasing protein intake she now had soft stool.</p><p>She started to have very severe diarrhea and was seen in the clinic on 06/25/2020, I spoke with her provider, we agreed to stop the Ofev for 2 weeks. She was restarted on 100 mg twice a day, she is tolerating it well, has no diarrhea, only soft stool.
</p><p>Shortness of breath has not worsened
</p><p> she had a chest CT on 06/21/2020 and on 09/03/2020. She is here to review images
</p><p>
& lt;/p><p>
</p><p>She lost 20 pounds in September, with her acute illnesses, since then weight has been stable</p><p>
</p><p>Social history:She is a lifelong non-smoker. She has three dogs, no birds in the house. 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
</div><div>Flu shot 08/06/2019, Prevnar 13 07/04/2017, pneumococcal 23 07/16/2017</div> Review of Systems ? Notes: <p>as above</p> Physical Exam ? Notes: <p>Elderly woman in no acute distress. Mild cognitive impairment.</p><p>Chest: bilateral air entry, with cl ear breath sounds,No crackles or wheezes, but she has minimal right basilar in spiratory crepitation. </p><p>Heart, S1, S2 normal</p><p>Neuro; A/O x 3< /p><p>Extremities: No edema, clubbing, cyanosis, no MCP or PIP swelling, no j oint deformities. Knees and wrists are also without any inflammation.</p >
[2020-11-12] MEDS: Insulin REGULAR-Human 100 UNITS/ML UNIT 7 UNITS IV (10:45)
[2020-11-12] MEDS: INSULIN REGULAR IN 0.9 % NACL 100 UNIT/100 ML BAG IV (10:59)
[2020-11-12] MEDS: Normal Saline Flush 10 ML SYR IVP (11:00)
[2020-11-12] MEDS: Escitalopram 10 MG TAB PO (13:17)
[2020-11-12] MEDS: Heparin 5,000 UNITS/ML VIAL 5000 UNITS SC ×2 (13:17→20:48)
[2020-11-12 14:22] LABS: Anion Gap 16.6 mmol/L (3-11); BUN 32 mg/dL (7-18); CO2 21.4 mmol/L (21.0-32.0); CREATININE 1.75 mg/dL (0.55-1.02); Calcium 8.8 mg/dL (8.5-10.1); Chloride 98 mmol/L (98-107); Estimated GFR 28.82 (mL/min/1.73m2); Glucose 346 mg/dL (74-106); Potassium 4.6 mmol/L (3.5-5.1); Sodium 136 mmol/L (136-145)
--- NOTE | 2020-11-12 14:22 | W.PM.HP.N ---
Date of service: 11/12/20 Time of Service: 14:23 Assessment and Plan Assessment and plan (1) DKA (diabetic ketoacidosis): Status: Acute Assessment and plan: Likely d/t acute GI illness with N/V and inability to adequately manage her DM and insulin regimen. Anion gap 20. Insulin drip; responding appropriately. Monitor K+ and phosphorus. Qualifiers: Diabetes mellitus complication detail: without coma (2) Acute on chronic congestive heart failure with right ventricular diastolic dysfunction: Status: Acute Assessment and plan: No evidence of acute pulmonary edema on CXR. Holding her lasix and spironolactone currently; restart after DKA resolved. (3) Pulmonary fibrosis: Status: Chronic Assessment and plan: Previously on Ofev but this was not in her medications brought in from home. Previously, Ofev caused similar sxs to those that she has currently experienced; N/V/diarrhea. (4) Chronic respiratory failure with hypoxia: Status: Chronic Assessment and plan: Currently on RA with 100% O2 saturation. (5) COPD (chronic obstructive pulmonary disease): Status: Chronic Assessment and plan: Cont home Breo Ellipta, Stiolto, prn albuterol History of Present Illness History of Present Illness Chief Complaint: Nausea, vomiting, diarrhea Narrative: This is a 70 yo with a h/o pulmonary fibrosis, pulmonary hypertension, CHF, chronic hypoxia with nocturnal O2, COD, HTN, cognitive impairment and DM2 requiring insulin. She presneted to the ED via EMS from her home where she lives with her daughter. She endorsed appx 3 week history of nausea, vomiting, diarrhea and abd cramping. Her son states that this occured previously when taking Ofev for her interstitial lung disease. He was not sure whether or not this was restarted. It was not in the medications brought in from her home. No F/C, CHOUDHARY, sputum, SOA, CP/palpitations. She states she has a chronic cough that hasn't changed. She reports poor intake of food during the 3 weeks of symptoms but she has been trying to stay hydrated. + generalized weakness, lighthededness. She has not been able to consistently take her medications because of her symptoms, including her insulin. She had a negative COVID test on 11/09/2020. In the ED her Glucose was 639, WBC count was 12.82, hgb 16.2, Mg 2.6, Creatinine 2.17, anion gap high at 20.8. IV fluid bolus given, Insulin bolus given and an insulin drip initiated. C.Diff screen was negative. UA negative. CXR w/o acute findings. [facility] Medical History Abdominal pain Acute gastroenteritis (03/16/18) Acute kidney injury (nontraumatic) Acute pneumonitis Anxiety (03/16/18) Asthma Asthma Back pain CHF (congestive heart failure) Chronic constipation (03/16/18) Cognitive impairment (03/16/18) Mild, w/Memory Loss Cubital tunnel syndrome (03/16/18) Depressive disorder DKA (diabetic ketoacidoses) Dyspnea (03/16/18) Edema (03/16/18) Essential hypertension (07/17/13) Gastroesophageal reflux disease without esophagitis (03/16/18) History of shingles (03/16/18) Hyperlipemia Insulin dependent diabetes mellitus Internal derangement of right knee Interstitial lung disease (03/16/18) Pulm: [place] Long-term use of high-risk medication (03/16/18) Metabolic acidosis with normal anion gap and bicarbonate losses Migraine (04/03/14) Neck pain (03/16/18) 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 History of section Ligation of fallopian tube Thoracoscopic (R)Lung Bx (02/12/18) Family History Mother , aged 81 from dementia, per Elly Diabetes Essential hypertension CHF (congestive heart failure) Heart disease CHF/heart failure Dementia Father , aged 80 Diabetes Essential hypertension CAD (coronary artery disease) Heart disease [place] Hyperlipidemia Stroke Sister , aged 54 Diabetes Personal history of malignant neoplasm Lung Asthma Lung cancer Brother , of mesithelioma aged 62 Diabetes Essential hypertension Personal history of malignant neoplasm Lung, Prostate Hyperlipidemia Asthma Mesothelioma Brother , of PE following knee surgery age 69 Pulmonary embolus with infarction Daughter No problems noted. Son No problems noted. Social History Smoking/Tobacco Use Status: Never Smoking risk assessment performed?: Yes Alcohol Intake: never Details: monthly or less Drug use: Never Substance use type: does not use Adopted: No Caregiver/Support person: Yes Foster care: No Household members: none Housing: apartment Number of Children: 2 number of grandchildren: 5 Communication Needs: Hard of Hearing and Corrective Lenses Education Level: middle school Do you need help understanding health information?: Always current occupation: disabled Pets and animals: Yes Pets and animals: cat(s) Sexually active: No Do you think of yourself as: straight/heterosexual Current gender identity: female What is your relationship status?: How often do you talk on the phone with friends or family?: three or more times per week How often do you get together with friends or relatives?: three or more times per week How often do you attend holiness or evangelical services?: 1-3 times per year Do you belong to any clubs or organized social groups?: no Panel score (0-1 are the most socially isolated patients): 1 What type of physical activity do you participate in: none and sedentary lifestyle Duration: < 15 minutes/day Frequency: 1-2 times per week Bibi/Latter-Day: Anabaptist Special bibi needs: No Agree to transfusion: Yes Seatbelt use: sometimes Helmet use: No Drive intox or ride w/intox lumber driver: No Water heater temp set <120 deg: Yes Working smoke detector in home: Yes Fire extinguisher in home: Yes Carbon monox detector in home: Yes Do you feel safe at home: Yes Do you feel safe in your relationship?: Yes Victim of physical abuse: No Victim of emotional abuse: No Victim of sexual abuse: No Would you like helpful sources: No Additional Social history: Lives in her own apartment in the [facility] near the hospital. Grandson Jorge Luis used to live with her. His phone # is [phone]. Daughter Caridad lives in [place]. Son Himanshu lives in [facility], not as close to him. Gets together with brother Brian regularly who takes her shopping and goes for drives. [place] visit her home frequently. Meds Home Medications and Allergies Home Medications Medication Instructions Recorded Confirmed Type albuterol sulfate [Ventolin HFA] 2 puff INHALATION Q4H PRN #1 10/09/14 11/12/20 History inhaler compress.stocking,knee,reg,lrg #2 each 10/29/18 09/04/20 Rx Oxygen #1 each 11/29/18 09/04/20 History ketoconazole 1 applic TOPICAL BID #30 gm 01/31/19 11/12/20 Rx Wheeled walker with seat and basket #1 ea 02/07/19 09/04/20 Rx vits A and D-white pet-lanolin 60 g TOPICAL PRN PRN #0 g 03/20/19 11/12/20 Rx zinc oxide 60 g TOPICAL PRN PRN #0 g 03/20/19 11/12/20 Rx Face mask to deliver Oxygen #2 each 04/23/19 09/04/20 Rx benzonatate 100 mg capsule 100 mg PO BID-TID PRN #90 cap 06/06/19 09/04/20 Rx nystatin 100,000 unit/gram topical 1 applic TP TID #60 gm 08/01/19 11/12/20 Rx powder tiotropium 2.5 mcg-olodaterol 2.5 2 puff IH DAILY 11/08/19 09/04/20 History mcg/actuation mist for inhalation sucralfate 1 gram tablet 1 gm PO QACHS 11/11/19 09/23/20 History clotrimazole 1 % topical cream 1 applic TOPICAL TID #113 gm 12/27/19 11/12/20 Rx fluticasone furoate 200 1 inh IH DAILY PRN 02/14/20 11/12/20 History mcg-vilanterol 25 mcg/dose inhalation powder escitalopram oxalate 10 mg tablet 10 mg PO .NOON #30 tab-cap 03/09/20 11/12/20 Rx simvastatin 40 mg tablet 40 mg PO HS #30 tab 03/09/20 11/12/20 Rx spironolactone 25 mg tablet 25 mg PO DAILY #30 tab 03/09/20 11/12/20 Rx empagliflozin 10 mg tablet 10 mg PO QAM #30 tab 03/10/20 11/12/20 Rx pantoprazole 40 mg tablet,delayed 40 mg PO DAILY #90 tab 04/03/20 11/12/20 Rx release epinephrine [EpiPen 2-Gordon] 0.3 mg IM ONCE PRN 06/12/20 11/12/20 History Oxygen #1 each 06/25/20 09/04/20 History magnesium oxide 400 mg (241.3 mg 400 mg PO DAILY #30 tab 06/25/20 09/23/20 Rx magnesium) tablet cyclobenzaprine 5 mg tablet 5 mg PO TID PRN #90 tab 07/27/20 11/12/20 Rx acidophilus 25 million 1 tab PO TID #90 tab 08/03/20 11/12/20 Rx cell-pectin, citrus 100 mg tablet albuterol sulfate 2.5 mg INHALATION Q6H PRN #10 vial 08/03/20 11/12/20 Rx donepezil 5 mg disintegrating 5 mg PO DAILY #30 tab-cap 08/03/20 11/12/20 Rx tablet furosemide 40 mg tablet 40 mg PO DAILY #30 tab 08/03/20 11/12/20 Rx pen needle, diabetic 31 gauge x #4 box 08/03/20 09/04/20 Rx /16 Blister gordon See Rx Instructions PO 08/31/20 09/04/20 History promethazine 12.5 mg PO Q6H PRN #10 tab 09/23/20 11/12/20 Rx insulin degludec 200 unit/mL (3 See Rx Instructions SC QHS #12 ml 09/28/20 11/12/20 Rx mL) subcutaneous pen blood sugar diagnostic #400 strip 09/29/20 Rx insulin lispro 100 unit/mL See Rx Instructions SC .per ss #15 09/29/20 11/12/20 Rx subcutaneous pen ml lancets 28 gauge #400 ea 09/29/20 Rx Allergies Allergy/AdvReac Type Severity Reaction Status Date / Time aspirin Allergy Unknown HIVES, Verified 11/12/20 08:21 flip out diclofenac Allergy Unknown RASH Verified 11/12/20 08:21 latex Allergy Unknown SKIN Verified 11/12/20 08:21 BREAKDOWN NSAIDS (Non-Steroidal Allergy Unknown HIVES, Verified 11/12/20 08:21 Anti-Inflamma VOMITING morphine AdvReac Unknown VOMITING Verified 11/12/20 08:21 Results Labs Result diagrams: 11/12/20 08:12 11/12/20 14:10 Labs: Laboratory Results - last 24 hr 11/12/20 11/12/20 11/12/20 08:12 08:12 09:33 WBC 12.82 H RBC 5.41 H Hgb 16.2 H Hct 49.8 H MCV 92.1 MCH 29.9 MCHC 32.5 RDW 13.5 Plt Count 300 MPV 11.3 H Immature Gran % 0.4 Neutrophils % 68.9 Lymphocytes % 24.0 Monocytes % 5.4 Eosinophils % 0.6 Basophils % 0.7 Nucleated RBC % 0 Absolute Neutrophils 8.83 H Absolute Lymphocytes 3.08 Absolute Monocytes 0.69 Absolute Eosinophils 0.08 Absolute Basophils 0.09 ABG Sample Site Cancelled ABG pH Cancelled ABG pCO2 Cancelled ABG pO2 Cancelled ABG HCO3 Cancelled ABG Total CO2 Cancelled ABG O2 Saturation Cancelled ABG Base Excess Cancelled VBG pH VBG pCO2 VBG pO2 VBG HCO3 VBG Total CO2 VBG O2 Saturation VBG Base Excess Oxygen Liter Flow Cancelled FiO2 Cancelled Sodium 130 L Potassium 4.1 Chloride 89 L Carbon Dioxide 20.2 L Anion Gap 20.8 H BUN 33 H Creatinine 2.17 H Estimated GFR/1.73 m2 22.48 Glucose 639 H* Calcium 9.3 Magnesium 2.6 H Total Bilirubin 1.0 AST 10 L ALT 20 Alkaline Phosphatase 118 H Troponin I < 0.05 Total Protein 8.0 Albumin 3.7 Urine Color Urine Clarity Urine pH Ur Specific Carson Urine Protein Urine Ketones Urine Blood Urine Nitrite Urine Bilirubin Urine Urobilinogen Ur Leukocyte Esterase Urine Glucose 11/12/20 11/12/20 09:35 10:20 WBC RBC Hgb Hct MCV MCH MCHC RDW Plt Count MPV Immature Gran % Neutrophils % Lymphocytes % Monocytes % Eosinophils % Basophils % Nucleated RBC % Absolute Neutrophils Absolute Lymphocytes Absolute Monocytes Absolute Eosinophils Absolute Basophils ABG Sample Site ABG pH ABG pCO2 ABG pO2 ABG HCO3 ABG Total CO2 ABG O2 Saturation ABG Base Excess VBG pH 7.20 L VBG pCO2 48 VBG pO2 51 VBG HCO3 19 L VBG Total CO2 17 L VBG O2 Saturation 79 VBG Base Excess -10 L Oxygen Liter Flow FiO2 Sodium Potassium Chloride Carbon Dioxide Anion Gap BUN Creatinine Estimated GFR/1.73 m2 Glucose Calcium Magnesium Total Bilirubin AST ALT Alkaline Phosphatase Troponin I Total Protein Albumin Urine Color Yellow Urine Clarity Clear Urine pH 5.5 Ur Specific Carson 1.015 Urine Protein Negative Urine Ketones 40 H Urine Blood Negative Urine Nitrite Negative Urine Bilirubin Small H Urine Urobilinogen 0.2 Ur Leukocyte Esterase Negative Urine Glucose 500 H Last Vital Signs Temp 36.3 C L 11/12/20 08:04 Pulse 79 11/12/20 12:06 Resp 16 11/12/20 12:06 BP 114/55 L 11/12/20 12:06 Pulse Ox 100 11/12/20 12:06 COVID-19 Screening Have you, or household traveled for leisure in last 14 days?: No Had IN PERSON contact w/suspected or confirmed C-19 person: No
[2020-11-12] MEDS: Normal Saline 1,000 ML 150 ML IV (15:26)
--- NOTE | 2020-11-12 15:47 | NUR.NOTE ---
Nursing Note: Patient's son Mr Jorge Luis Zepeda called and informed over the phone few information to be notified to the care team. He informed that his mother probably was not taking her insulin since Oct 25, 2020 as he found no Finger stick check in her book. 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
[2020-11-12 18:52] LABS: Anion Gap 11.7 mmol/L (3-11); BUN 21 mg/dL (7-18); CO2 19.3 mmol/L (21.0-32.0); CREATININE 1.01 mg/dL (0.55-1.02); Chloride 112 mmol/L (98-107); Estimated GFR 54.35 (mL/min/1.73m2); Glucose 131 mg/dL (74-106); Sodium 143 mmol/L (136-145)
[2020-11-12 18:54] LABS: Calcium 5.8 mg/dL (8.5-10.1); PHOSPHORUS < 2.0 mg/dL (2.6-4.7)
[2020-11-12 18:55] LABS: Potassium 2.8 mmol/L (3.5-5.1)
[2020-11-12] MEDS: POTASSIUM CHLORIDE/D5-0.9%NACL 1,000 ML 125 MEQ IV (19:35)
[2020-11-12] MEDS: Budesonide/Formoterol 160/4.5 6 GM 60 PUFF INH IH (20:46)
[2020-11-12] MEDS: Simvastatin 40 MG TAB PO (20:48)
[2020-11-12 21:04] LABS: COVID-19 RT-PCR UVMMC Result Negative (Negative)
[2020-11-13] VITALS (47 sets, daily range): BP systolic 92–127; BP diastolic 34–60; PULSE 60–91; RESP 12–25; TEMP 36.1–36.7; O2SAT 85–100
[2020-11-13 00:02] LABS: Anion Gap 10.1 mmol/L (3-11); BUN 17 mg/dL (7-18); CO2 19.9 mmol/L (21.0-32.0); CREATININE 1.01 mg/dL (0.55-1.02); Chloride 111 mmol/L (98-107); Estimated GFR 54.35 (mL/min/1.73m2); Glucose 250 mg/dL (74-106); Potassium 4.3 mmol/L (3.5-5.1); Sodium 141 mmol/L (136-145)
[2020-11-13 00:05] LABS: Calcium 6.4 mg/dL (8.5-10.1)
[2020-11-13] MEDS: POTASSIUM CHLORIDE/D5-0.9%NACL 1,000 ML 125 MEQ IV (03:51)
[2020-11-13] MEDS: Heparin 5,000 UNITS/ML VIAL 5000 UNITS SC ×3 (06:48→20:52)
[2020-11-13 07:00] LABS: Abs Immature Grans 0.02 10^3/uL (0.0-0.06); Absolute Basophil Count 0.05 10^3/uL (0.0-0.2); Absolute Eosinophil Count 0.23 10^3/uL (0.0-0.7); Absolute Lymphocyte Count 2.47 10^3/uL (1.2-3.4); Absolute Monocyte Count 0.52 10^3/uL (0.1-0.8); Basophils % 0.6; Eosinophils % 2.7; HCT 37.3 % (36.0-46.0); HGB 12.5 g/dL (11.2-15.7); Immature Grans % 0.2; Lymphocytes % 28.8; MCH 30.1 pg (27.0-33.0); MCHC 33.5 % (32.0-36.0); MCV 89.9 fL (80-95); MPV 11.5 fL (8.0-11.0); Monocytes % 6.1; Neutrophils % 61.6; Nucleated RBC 0 %; Platelet Count 174 10^3/uL (130-400); RBC 4.15 10^6/uL (3.93-5.22); RDW 13.7 % (11.7-14.6); RDW-SD 44.7 fL; WBC 8.59 10^3/uL (4.4-10.8)
[2020-11-13 07:08] LABS: Absolute Neutrophil Count 5.29 10^3/uL (1.2-6.7)
[2020-11-13 07:09] LABS: Anion Gap 10.2 mmol/L (3-11); BUN 17 mg/dL (7-18); CO2 21.8 mmol/L (21.0-32.0); CREATININE 1.18 mg/dL (0.55-1.02); Calcium 7.9 mg/dL (8.5-10.1); Chloride 106 mmol/L (98-107); Estimated GFR 45.42 (mL/min/1.73m2); Glucose 174 mg/dL (74-106); Magnesium 1.9 mg/dL (1.8-2.4); Potassium 3.7 mmol/L (3.5-5.1); Sodium 138 mmol/L (136-145)
[2020-11-13] MEDS: Tiotropium/Olodaterol 10 PUFF INHALER 2 PUFF IH (07:41)
[2020-11-13] MEDS: Budesonide/Formoterol 160/4.5 6 GM 60 PUFF INH IH ×2 (07:41→20:45)
[2020-11-13] MEDS: Pantoprazole 40 MG TABCR PO (08:27)
[2020-11-13] MEDS: Spironolactone 25 MG TAB PO (11:11)
[2020-11-13] MEDS: Polyethylene Glycol 3350 17 GM PACKET PO (11:11)
[2020-11-13] MEDS: Nystatin POWDER 15 GM JAR TP ×3 (11:12→20:45)
[2020-11-13] MEDS: Insulin Glargine 300 UNITS/3 ML PEN 25 UNITS SC (11:18)
[2020-11-13] MEDS: Escitalopram 10 MG TAB PO (12:31)
[2020-11-13] MEDS: Insulin Aspart 300 UNITS/3 ML PEN SC ×2 (12:31→17:32)
--- NOTE | 2020-11-13 13:06 | W.INDIABCONS ---
Date of service: 11/13/20 Time of Service: 13:07 Diabetes Inpatient Consult DESCRIPTION/ASSESSMENT: 70 year old female admitted to ICU after DKA with BS of 639 mg/dl in ER last night. BMI wnl. PMH: cognitive impairment, COPD, CHF, Pulm Fibrosis. Most recent A1C 9.3% (06/25/20) indicating poorly controlled DM2. Home DM meds include lispro, degludec. 11 lbs wiehgt loss noted in last month (-6%) considered significant and due to 3 weeks of n/v/d. Met with Elly in ICU today. She reports not checking BS as recommended and said she would like to try a continuous glucose monitor to help alert her when she has hypo and hyper glycemic events. INTERVENTION: recommend continuous glucose monitor -Free Armed[employer] Kaye 2 with alarms to help alert Elly when hypo/hyper glycemic events occur. recommend referral for outpatient diabetes counseling- virtual or in person continue current diet PLAN: will follow up with PCP re: script for [employer] libre2 reader and sensor, will make appt. for Elly to come to outpatient nutrition visit for CGM education and placement. Time Spent in Nutritional Counseling and Treatment: 10 min
--- NOTE | 2020-11-13 13:59 | W.PM.PROGNOT ---
Date of Service Date of service: 11/13/20 Time of Service: 09:02 Assessment and Plan Assessment and plan (1) DKA (diabetic ketoacidosis): Status: Acute Assessment and plan: Anion GAP has closed. Insulin drip stopped and basal insulin initiated; started lower than her home dose and titrate as needed. Moderate resistant SS correction dosing; she uses a sliding scale at home. Consistent carb diet. Qualifiers: Diabetes mellitus complication detail: without coma (2) COPD (chronic obstructive pulmonary disease): Status: Chronic Assessment and plan: Cont Breo, Stiolto and prn albuterol. No apparent exacerbation. (3) Pulmonary fibrosis: Status: Chronic Assessment and plan: Holding Ofev; according to patient, her son and pulmonary note in May of 2020, she had N/V/diarrhea with the medication in the past. It was stopped, then in May a gradual titration back on the medication was initiated. Pharmacy did verify that this medication was being taken. Subjective Subjective Patient reports: no new complaints, tolerating liquids well and afebrile; denies nausea and vomiting Interval history since last seen: Endorses fatigue but overall feels better. No SOA. + intermittent cough that she states is her baseline cough. Ongoing increased thirst. Exam Const General: cooperative and no acute distress Nutritional Appearance: average body habitus Orientation: alert, oriented to person and oriented to place Neck Neck: full ROM and no JVD Resp Effort & Inspection: normal respiratory effort Auscultation: clear to auscultation bilaterally and diminished lung sounds Cardio Rate: regular rate Rhythm: regular rhythm Heart Sounds: S1 normal and S2 normal GI Palpation: soft and nontender Skin General skin exam: no rashes or lesions noted Extrem General: no pedal edema and no calf tenderness Objective Last Vital Signs Temp 36.4 C L 11/13/20 12:00 Pulse 79 11/13/20 12:01 Resp 16 11/13/20 12:01 BP 127/52 L 11/13/20 12:01 Pulse Ox 98 11/13/20 12:01 Laboratory Results - last 24 hr 11/12/20 11/12/20 11/12/20 10:10 14:10 14:45 WBC RBC Hgb Hct MCV MCH MCHC RDW Plt Count MPV Immature Gran % Neutrophils % Lymphocytes % Monocytes % Eosinophils % Basophils % Nucleated RBC % Absolute Neutrophils Absolute Lymphocytes Absolute Monocytes Absolute Eosinophils Absolute Basophils Sodium 136 Cancelled Potassium 4.6 Cancelled Chloride 98 Cancelled Carbon Dioxide 21.4 Cancelled Anion Gap 16.6 H Cancelled BUN 32 H Cancelled Creatinine 1.75 H Cancelled Estimated GFR/1.73 m2 28.82 Cancelled Glucose 346 H D Cancelled Calcium 8.8 Cancelled Phosphorus Magnesium SARS-CoV-2 (PCR) Negative Nasopharyn COVID-19 PCR Not Applicable Ref Test Perform Site [place] [facility] 11/12/20 11/12/20 11/12/20 16:00 16:45 18:35 WBC RBC Hgb Hct MCV MCH MCHC RDW Plt Count MPV Immature Gran % Neutrophils % Lymphocytes % Monocytes % Eosinophils % Basophils % Nucleated RBC % Absolute Neutrophils Absolute Lymphocytes Absolute Monocytes Absolute Eosinophils Absolute Basophils Sodium Cancelled 143 Potassium Cancelled 2.8 L* D Chloride Cancelled 112 H Carbon Dioxide Cancelled 19.3 L Anion Gap Cancelled 11.7 H BUN Cancelled 21 H D Creatinine Cancelled 1.01 D Estimated GFR/1.73 m2 Cancelled 54.35 Glucose Cancelled 131 H D Calcium Cancelled 5.8 L* Phosphorus Cancelled Magnesium Cancelled SARS-CoV-2 (PCR) [facility] COVID-19 PCR Ref Test Perform Site 11/12/20 11/12/20 11/12/20 18:35 18:45 20:45 WBC RBC Hgb Hct MCV MCH MCHC RDW Plt Count MPV Immature Gran % Neutrophils % Lymphocytes % Monocytes % Eosinophils % Basophils % Nucleated RBC % Absolute Neutrophils Absolute Lymphocytes Absolute Monocytes Absolute Eosinophils Absolute Basophils Sodium Cancelled Cancelled Potassium Cancelled Cancelled Chloride Cancelled Cancelled Carbon Dioxide Cancelled Cancelled Anion Gap Cancelled Cancelled BUN Cancelled Cancelled Creatinine Cancelled Cancelled Estimated GFR/1.73 m2 Cancelled Cancelled Glucose Cancelled Cancelled Calcium Cancelled Cancelled Phosphorus < 2.0 L Magnesium SARS-CoV-2 (PCR) [facility] COVID-19 PCR Ref Test Perform Site 11/12/20 11/12/20 11/13/20 22:45 23:45 06:20 WBC RBC Hgb Hct MCV MCH MCHC RDW Plt Count MPV Immature Gran % Neutrophils % Lymphocytes % Monocytes % Eosinophils % Basophils % Nucleated RBC % Absolute Neutrophils Absolute Lymphocytes Absolute Monocytes Absolute Eosinophils Absolute Basophils Sodium Cancelled 141 Potassium Cancelled 4.3 D Chloride Cancelled 111 H Carbon Dioxide Cancelled 19.9 L Anion Gap Cancelled 10.1 BUN Cancelled 17 Creatinine Cancelled 1.01 Estimated GFR/1.73 m2 Cancelled 54.35 Glucose Cancelled 250 H D Calcium Cancelled 6.4 L* Phosphorus 2.0 L Magnesium SARS-CoV-2 (PCR) [facility] COVID-19 PCR Ref Test Perform Site 11/13/20 11/13/20 06:20 06:20 WBC 8.59 D RBC 4.15 Hgb 12.5 D Hct 37.3 D MCV 89.9 MCH 30.1 MCHC 33.5 RDW 13.7 Plt Count 174 D MPV 11.5 H Immature Gran % 0.2 Neutrophils % 61.6 Lymphocytes % 28.8 Monocytes % 6.1 Eosinophils % 2.7 Basophils % 0.6 Nucleated RBC % 0 Absolute Neutrophils 5.29 Absolute Lymphocytes 2.47 Absolute Monocytes 0.52 Absolute Eosinophils 0.23 Absolute Basophils 0.05 Sodium 138 Potassium 3.7 Chloride 106 Carbon Dioxide 21.8 Anion Gap 10.2 BUN 17 Creatinine 1.18 H Estimated GFR/1.73 m2 45.42 Glucose 174 H D Calcium 7.9 L Phosphorus Magnesium 1.9 SARS-CoV-2 (PCR) [facility] COVID-19 PCR Ref Test Perform Site
--- NOTE | 2020-11-13 14:14 | PDOC.CMIN ---
- If Service Date Differs Date of service: 11/13/20 Time of Service: 14:35 Care Management Initial Assess REASON FOR HOSPITALIZATION:: DKA PAST MEDICAL HISTORY/PAST SURGICAL HISTORY:: Abdominal pain, acute gastroenteritis, SYD non traumatic, acute pneumonitis, anxiety, asthma, back pain, CHF, chronic constipation, cognitive impairment (not observed), cubital tunnel syndrome, depressive disorder, DKA, dyspnea, edema, essential hypertension, GERD without esophagitis, hx of shingles, hyperlipidemia, DM insulin dependent, internal derangement of right knee, interstitial lung disease, mcc use of high risk medication, metabolic acidosis with normal anion gap and bicarbonate losses, migraine, neck pain, neoplasm of uncertain behavior of ovary, osteoporosis, peripheral neuralgia, post herpetic neuralgia, sepsis, shoulder pain, total urinary incontinence, Type II DM uncontrolled, umbilical hernia, appendectomy, arthroscopy shoulder, bilateral salpingectomy with oophrectomy, section, ligation of fallopian tube, thoracoscopic right lung Bx PREVIOUS FUNCTIONAL STATUS/SOCIAL/FAMILY SUPPORTS:: Elly lives at [facility] in [facility]. Her grand daughter, Sumi is living with her currently. Her son Himanshu lives locally and is supportive. She has five grand children. Jorge Luis is quite supportive and a strong advocate, often participating in discharge coordination and medical oversight. She has had three marriages and is . She is independent at baseline in the community and reports her previously shared vehicle with her brother was given solely to her when he was encouraged to no longer drive per his PCP. CURRENT FUNCTIONAL STATUS:: Elly is in the ICU and reports she's not doing well. She shares appreciation for her care and verbalizes understanding of DE consult and recommendations for CGM. She reports having a PCP appointment this coming Monday with a new provider (JONATHAN Lawrence) at [facility] as she transitioned her care from [facility]. She was concerned about her cell phone battery being and not having a habilitation worker; CM notified RN of need. ADVANCE DIRECTIVES:: [facility]ST on file. Has patient been provided with info about the portal/API?: Yes Did the patient sign up for the portal?: Yes (Previously) CODE STATUS:: Full Code INSURANCE COVERAGE / FINANCIAL ISSUES:: MCR/ [facility] CURRENT HOME/COMMUNITY SERVICES/EQUIPMENT:: Diabetic supplies; insulin dependent, Motorized wheelchair, FWW, Home O2 PRIMARY CARE PHYSICIAN:: JONATHAN Lawrence-[facility] POTENTIAL DISCHARGE NEEDS:: CM notified CCC at [facility] of recommendations for CGM-CM connected Evelyn with Marzena and PCP to assure direct communication at [facility]'s direction. CM notified [facility] of anticipated new orders for VNA RN support upon discharge. PATIENT/FAMILY EDUCATION NEEDS:: Review of discharge instructions, discuss Ask Me Three. ANTICIPATED BARRIERS TO DISCHARGE:: None identified. TRANSPORTATION:: Via private vehicle with [id number]. PLAN:: Elly will return home when ready per MD. She has a scheduled follow up appointment with her PCP on Monday, recommendations for CGM per outreach educator Evelyn who will follow up with [facility] to request outpatient orders for equipment. Anticipate she will have new orders for VNA RN as well, to monitor diabetes until outpatient plan is in place. Elly will transport via private vehicle with family, if unavailable she will utilize [facility]. CM continues to follow.
[2020-11-13] MEDS: Donepezil 5 MG TAB PO (20:45)
[2020-11-13] MEDS: Insulin Glargine 300 UNITS/3 ML PEN 35 UNITS SC (20:46)
[2020-11-13] MEDS: Simvastatin 40 MG TAB PO (20:52)
[2020-11-14] VITALS (20 sets, daily range): BP systolic 90–122; BP diastolic 35–94; PULSE 62–79; RESP 16–25; TEMP 36.3–36.8; O2SAT 89–100
[2020-11-14] MEDS: Heparin 5,000 UNITS/ML VIAL 5000 UNITS SC ×3 (06:10→21:26)
[2020-11-14] MEDS: Budesonide/Formoterol 160/4.5 6 GM 60 PUFF INH IH ×2 (07:51→20:11)
--- NOTE | 2020-11-14 08:13 | W.PM.PROGNOT ---
Date of Service Date of service: 11/14/20 Time of Service: 13:29 Assessment and Plan Assessment and plan (1) DKA (diabetic ketoacidosis): Status: Resolved Assessment and plan: Transitioned to basal bolus insulin. Ok to transfer out of ICU. Qualifiers: Diabetes mellitus complication detail: without coma (2) IDDM (insulin dependent diabetes mellitus): Status: Chronic Assessment and plan: Add scheduled prandial insulin. Continue lantus 35 units SC BID and SSI AC/HS. (3) Dehydration: Status: Acute Assessment and plan: RE-introduce gentle IVF and hold spironolactone (4) COPD (chronic obstructive pulmonary disease): Status: Chronic Assessment and plan: Not in acute exacerbation/at baseline. Continue Breo, Stiolto and prn albuterol. (5) Pulmonary fibrosis: Status: Chronic Assessment and plan: Continue to hold Ofev. Consult nutrition to discuss diet while on ofev as GI side effects of ofev can be managed by appropriate diet. (6) Chronic respiratory failure with hypoxia: Status: Chronic Assessment and plan: Continue O2 supplementation. On RA while eating lunch with O2 sats in the 90's, but it is unlikely that she will sustain these O2 sats. (7) DVT prophylaxis: Status: Acute Assessment and plan: SC heparin (8) Discharge planning issues: Status: Acute Assessment and plan: Consult PT. Transfer out of ICU. On discharge home, would either need SNF or Home health nursing/PT/OT. Subjective Subjective Interval history since last seen: I'm so weak. Ms Pina reports epigastric/RUQ pain x 3 weeks. It is not stopping her from eating breakfast and lunch. No nause or diarrhea. Denies dizziness, chest pain, shortness of breath. Has a chronic dry nonproductive cough. Reports feeling dry. BG 253 this am. Crackles detention up (on 3L today, has a h/o pulmonary fibrosis). 4L at home. Exam Narrative Exam Narrative: General: pleasant elderly female, eating lunch HEENT: EOMI, MMM Heart: RRR, no m/r/g Lungs: crackles at B bases Abdomen: soft, tender on minimal superficial palpation in RUQ/epigastrium Extremities: trace edema BLEs Objective Last Vital Signs Temp 36.6 C 11/14/20 04:08 Pulse 62 11/14/20 06:00 Resp 19 11/14/20 07:00 BP 105/48 L 11/14/20 06:00 Pulse Ox 100 11/14/20 07:00
[2020-11-14] MEDS: Docusate Sodium 100 MG CAP PO ×2 (08:24→20:11)
[2020-11-14] MEDS: Spironolactone 25 MG TAB PO (08:25)
[2020-11-14] MEDS: Polyethylene Glycol 3350 17 GM PACKET PO (08:25)
[2020-11-14] MEDS: Pantoprazole 40 MG TABCR PO (08:25)
[2020-11-14] MEDS: Insulin Aspart 300 UNITS/3 ML PEN SC ×6 (08:25→21:25)
[2020-11-14] MEDS: Nystatin POWDER 15 GM JAR TP ×3 (08:26→20:11)
[2020-11-14] MEDS: Insulin Glargine 300 UNITS/3 ML PEN 35 UNITS SC ×2 (08:26→20:14)
--- NOTE | 2020-11-14 08:28 | CMPROGNOTE_ITS ---
- If Service Date Differs Date of service: 11/14/20 Time of Service: 08:28 Care Management Progress Note S/O: Elly was sitting up in bed when CM met with her in the ICU. Clinically she is better and will be moved to Med-surg when a bed is available.Elly lives with her 21 year old granddaughter who is very helpful. She also has a 27 year old grandson who lives nearby and is very supportive. Elly stated that he checks on her every day and helps with whatever she needs. She shared with CM that she is still feeling very weak. Elly had a PT evaluation this morning and continued PT was recommended. A: Elly is a 70 year old woman admitted on 11/12/20 with DKA P:Elly will return home when ready per MD. She has a scheduled follow up appointment with her PCP on Monday, recommendations for CGM per clinical trial educator Evelyn who will follow up with [facility] to request outpatient orders for equipment. Anticipate she will have new orders for VNA RN as well, to monitor diabetes until outpatient plan is in place. She may also benefit from PT to improve strength and conditioning. Elly will transport via private vehicle with family, if unavailable she will utilize [facility]. CM continues to follow. cc:
[2020-11-14 08:32] LABS: Abs Immature Grans 0.03 10^3/uL (0.0-0.06); Absolute Basophil Count 0.05 10^3/uL (0.0-0.2); Absolute Eosinophil Count 0.32 10^3/uL (0.0-0.7); Absolute Lymphocyte Count 1.74 10^3/uL (1.2-3.4); Absolute Monocyte Count 0.47 10^3/uL (0.1-0.8); Absolute Neutrophil Count 3.67 10^3/uL (1.2-6.7); Basophils % 0.8; Eosinophils % 5.1; HCT 36.8 % (36.0-46.0); HGB 12.2 g/dL (11.2-15.7); Immature Grans % 0.5; Lymphocytes % 27.7; MCH 30.3 pg (27.0-33.0); MCHC 33.2 % (32.0-36.0); MCV 91.5 fL (80-95); Monocytes % 7.5; Neutrophils % 58.4; Nucleated RBC 0 %; Platelet Count 192 10^3/uL (130-400); RBC 4.02 10^6/uL (3.93-5.22); RDW-SD 47.2 fL; WBC 6.28 10^3/uL (4.4-10.8)
[2020-11-14 08:43] LABS: Anion Gap 8.4 mmol/L (3-11); BUN 14 mg/dL (7-18); CO2 23.6 mmol/L (21.0-32.0); CREATININE 1.15 mg/dL (0.55-1.02); Calcium 8.5 mg/dL (8.5-10.1); Chloride 105 mmol/L (98-107); Estimated GFR 46.79 (mL/min/1.73m2); Glucose 267 mg/dL (74-106); Magnesium 1.9 mg/dL (1.8-2.4); Potassium 4.3 mmol/L (3.5-5.1); Sodium 137 mmol/L (136-145)
--- NOTE | 2020-11-14 11:46 | IN_ITS ---
Date of service: 11/14/20 Time of Service: 10:30 PT Notes Visit Reasons: DKA Inpatient Physical Therapy Evaluation Date: 11/14/20 Referring Doctor:Randi Dyer PT Orders: PT CONSULT: Limited ability, evaulate and treat Precautions: Standard Patient Profile/Admitting Diagnosis: Orders received for this 70-year-old female with a history of independent living. Patient states for the last 3 weeks she has been having history of weakness, nausea, vomiting, diarrhea. Patient thought this was just a flu or cold that would get better over time continue to decline. Patient states she was then seen in the emergency department where she was told she was having episode of diabetic ketoacidosis. He was also having effects of acute on chronic COPD PMHX: Medical History Abdominal pain Acute gastroenteritis (03/16/18) Acute kidney injury (nontraumatic) Acute pneumonitis Anxiety (03/16/18) Asthma Asthma Back pain CHF (congestive heart failure) Chronic constipation (03/16/18) Cognitive impairment (03/16/18) Mild, w/Memory Loss Cubital tunnel syndrome (03/16/18) Depressive disorder DKA (diabetic ketoacidoses) Dyspnea (03/16/18) Edema (03/16/18) Essential hypertension (07/17/13) Gastroesophageal reflux disease without esophagitis (03/16/18) History of shingles (03/16/18) Hyperlipemia Insulin dependent diabetes mellitus Internal derangement of right knee Interstitial lung disease (03/16/18) Pulm: [place] Long-term use of high-risk medication (03/16/18) Metabolic acidosis with normal anion gap and bicarbonate losses Migraine (04/03/14) Neck pain (03/16/18) 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 History of section Ligation of fallopian tube Thoracoscopic (R)Lung Bx (02/12/18) Social History/Home Situation: Patient has a cane and walker at home but is independent in her ambulation at baseline. He has 3 steps in which to enter the home she lives with her granddaughter Subjective: She states she feels weak he stands up Objective: Patient sitting up in chair with no medical lines currently in place Mental Status: Well oriented alert to person place and time Pain: No severe pain just weakness ROM: Right Upper Extremity: Within functional limits Left Upper Extremity: Within functional limit Right Lower Extremity: Within functional limits Left Lower Extremity: Within functional limits Strength: Right Upper Extremity: Grossly 4+ out of 5 Left Upper Extremity: Grossly 4+ out of 5 Right Lower Extremity: Grossly 4+ out of 5 Left Lower Extremity: Grossly 4+ out of Sit-stand: Standby assist Stand-sit: Standby assist Gait: Patient ambulates without assistance, assistive device with standby assist about 2 steps both forward and backward Balance: Static Sitting: NOrmal Dynamic Sitting: Normal Static Standing: Good Dynamic Standing: Fair Special Tests: Mobility Limitations Standardized Measure [facility] AM-PAC 6 clicks Basic Mobility Inpatient Short Form: Raw Score: 18 Standardized Score: 43.63 CMS Score: 46.58% Informed Consent/Education: Patient instructed in purpose of PT consult and plan of care. Therapeutic Exercise: [address], 1 minute each due to fatigue March seated position Long arc quads x10 Heel raise, dorsiflexion Shoulder retraction scapular rows ASSESSMENT: Patient is a 70-year-old female with history of chronic health affecting function Admitted with diabetic ketoacidosis, acute on chronic COPD Patient presents with the following impairment level findings: Ambulatory limitation, assistance needed for transfers, quick to fatigue with standing in place, increased pain Pt will benefit from skilled therapy intervention in order to remedy their functional limitations and restore patient to a more appropriate and stable functional level. Impairments are contributing to the following functional limitations: AMPAC score 46.58% Patient is assessed as a moderate complexity initial evaluation 71396 based on the following: History: see above Examination: see above Presentation: Evolving Decision Making: MOderate based on AMPAC of 46.58% Goals: Goals X1 week 1. Supine-Sit Independent 2. Sit-Supine Independent 3. Sit-Stand Independent 4. Stand-Sit Independent 5. Bed-Chair Independent 6. Gait Independent up to 100 feet 7: Stairs 4 step with SBA 8: Independent in Home program Plan of Care/Treatment Plan: 1-2x/day, 7 days/week x 1 week. Plan of care has been reviewed with the LABEL FUSER TENDER providing the service under Physical Therapy direction. Initiate Physical Therapy intervention for strengthening, bed mobility, transfers, gait, stairs, balance training, use of assistive device. DISCHARGE RECOMMENDATIONS: To home with the assistance of her granddaughter once medically stable TREATMENT CODE/TIME: Moderate complexity initial evaluation 67907, time of treatment 1030, 20 minutes of direct care [facility]
[2020-11-14] MEDS: Escitalopram 10 MG TAB PO (12:23)
[2020-11-14] MEDS: Normal Saline 250 ML IV (13:21)
[2020-11-14] MEDS: Bisacodyl 5 MG TABEC PO (16:25)
[2020-11-14] MEDS: Sucralfate 1 GM TAB PO ×2 (16:25→21:25)
[2020-11-14] MEDS: Donepezil 5 MG TAB PO (20:11)
[2020-11-14] MEDS: Simvastatin 40 MG TAB PO (21:25)
[2020-11-14] MEDS: Normal Saline 1,000 ML 75 ML IV (23:51)
[2020-11-15] VITALS (7 sets, daily range): BP systolic 121–138; BP diastolic 62–65; PULSE 63–73; RESP 8–17; TEMP 36.3–36.6; O2SAT 95–100
[2020-11-15] MEDS: Heparin 5,000 UNITS/ML VIAL 5000 UNITS SC ×3 (05:55→21:24)
[2020-11-15 07:17] LABS: Abs Immature Grans 0.02 10^3/uL (0.0-0.06); Absolute Basophil Count 0.05 10^3/uL (0.0-0.2); Absolute Eosinophil Count 0.31 10^3/uL (0.0-0.7); Absolute Lymphocyte Count 1.62 10^3/uL (1.2-3.4); Absolute Monocyte Count 0.54 10^3/uL (0.1-0.8); Basophils % 0.7; Eosinophils % 4.6; HCT 36.2 % (36.0-46.0); Immature Grans % 0.3; MCH 29.7 pg (27.0-33.0); MCHC 33.1 % (32.0-36.0); MCV 89.6 fL (80-95); MPV 11.2 fL (8.0-11.0); Neutrophils % 62.4; Nucleated RBC 0 %; Platelet Count 186 10^3/uL (130-400); RBC 4.04 10^6/uL (3.93-5.22); RDW 14.3 % (11.7-14.6); RDW-SD 46.5 fL; WBC 6.74 10^3/uL (4.4-10.8)
[2020-11-15 07:28] LABS: Anion Gap 7.6 mmol/L (3-11); BUN 15 mg/dL (7-18); CO2 23.4 mmol/L (21.0-32.0); CREATININE 1.05 mg/dL (0.55-1.02); Calcium 8.2 mg/dL (8.5-10.1); Chloride 104 mmol/L (98-107); Estimated GFR 51.96 (mL/min/1.73m2); Glucose 280 mg/dL (74-106); Magnesium 1.7 mg/dL (1.8-2.4); Potassium 4.1 mmol/L (3.5-5.1); Sodium 135 mmol/L (136-145)
[2020-11-15] MEDS: Budesonide/Formoterol 160/4.5 6 GM 60 PUFF INH IH ×2 (07:31→19:44)
[2020-11-15] MEDS: Polyethylene Glycol 3350 17 GM PACKET PO (08:17)
[2020-11-15] MEDS: Insulin Aspart 300 UNITS/3 ML PEN SC ×7 (08:17→21:25)
[2020-11-15] MEDS: Insulin Glargine 300 UNITS/3 ML PEN 40 UNITS SC ×2 (08:18→19:45)
[2020-11-15] MEDS: MAGNESIUM SULFATE 2 GM/50 ML BAG IVPB (08:19)
[2020-11-15] MEDS: Docusate Sodium 100 MG CAP PO ×2 (08:20→19:44)
[2020-11-15] MEDS: Sucralfate 1 GM TAB PO ×4 (08:20→21:24)
[2020-11-15] MEDS: Pantoprazole 40 MG TABCR PO (08:20)
[2020-11-15] MEDS: Nystatin POWDER 15 GM JAR TP ×3 (08:24→19:46)
--- NOTE | 2020-11-15 09:40 | RESPIRATORY ---
Pt stated that she wears home O2 at 4L via nasal cannula, 24 hr/day. DME is [employer]. Pt is currently 96% on RA resting in bed.
[2020-11-15] MEDS: Escitalopram 10 MG TAB PO (12:04)
--- NOTE | 2020-11-15 12:31 | CMPROGNOTE_ITS ---
- If Service Date Differs Date of service: 11/15/20 Time of Service: 12:31 Care Management Progress Note S/O: Elly was sitting up in bed when CM met with her. Clinically she is better and was moved to Med-surg. She shared with CM that she is still feeling very weak. Elly worked with PT today and was able to ambulate 10 feet from bed to chair without any assistive device. Elly asked CM about the possibility of acquiring a portable oxygen tank as well as a CGM. She informed CM that felt that both would improve the quality of her life. CM referred the oxygen request to [facility] and will discuss the CGM with the diabetes educators. They are already planning on pursuing this option. A: Elly is a 70 year old woman admitted on 11/12/20 with DKA P:Elly will return home when ready per MD. She has a scheduled follow up appointment with her PCP on Monday, recommendations for CGM per diabetic educat or Evelyn who will follow up with [facility] to request outpatient orders for equipment. Anticipate she will have new orders for VNA RN as well, to monitor diabetes until outpatient plan is in place. She may also benefit from PT to improve strength and conditioning. Elly will transport via private vehicle with family, if unavailable she will utilize [facility]. CM continues to follow.
--- NOTE | 2020-11-15 14:03 | PT.INTREAT ---
Date of service: 11/15/20 Time of Service: 11:20 PT Notes Visit Reasons: DKA Inpatient Physical Therapy Treatment Note [facility] Date: 11/15/2020 PRECAUTIONS: Fall, standard SUBJECTIVE: Not feeling great, but doing better than yesterday. OBJECTIVE: PAIN: No complaints of pain offered. BED MOBILITY/TRANSFERS Rolling L/R: Able to independently roll to left to transfer from supine to sitting. Supine-sit: SBA Sit-stand: CGA Stand-sit: CGA GAIT Assistive Device: No assistive device Weight bearing: Full Assist: SBA Distance: 10ft bed to chair THEREX: Performed bilateral ankle pumps x 15 reps, LAQs x 10 reps, supine hip flexion x 10 reps, supine hip abd/ adduction x 10 reps, seated shoulder flexion x 10 reps, and wrist flexion / extension x 10 reps. ASSESSMENT: Tolerated today's PT session well with good effort given. PLAN: Continue with current POC, with focus on improved ADL function for preparation of return to home. TREATMENT CODE/TIME: 83939h2, 11:40 to 12:00 (20')
[2020-11-15] MEDS: Normal Saline 1,000 ML 75 ML IV (14:50)
--- NOTE | 2020-11-15 15:53 | W.PM.PROGNOT ---
Documented by User: Urmila Austin NP 11/15/20 16:09 Date of Service Date of service: 11/15/20 Time of Service: 15:53 Assessment and Plan Assessment and plan (1) Aspiration pneumonia: Start date: 11/15/20 Start time: 16:06 Status: Suspected Assessment and plan: Vomited this morning after vomiting stated she became SOB and had a cough with wheezing. She felt it was because she did not wear her oxygen however she bilateral wheezing in all lobes with cough Stat CXR ordered, IS, procal DUONEB Will order zosyn if pneumonia (2) Chronic respiratory failure with hypoxia: Start date: 11/15/20 Start time: 16:05 Status: Chronic Assessment and plan: Continue O2 supplementation. ON RA until vomiting this morning after breakfast (3) DKA (diabetic ketoacidosis): Start date: 11/15/20 Start time: 16:01 Status: Resolved Assessment and plan: Transitioned to basal bolus insulin. Fingerstick [id number] today insulin adjusted Qualifiers: Diabetes mellitus complication detail: without coma (4) IDDM (insulin dependent diabetes mellitus): Start date: 11/15/20 Start time: 16:03 Status: Chronic Assessment and plan: Add scheduled prandial insulin. Continue lantus 35 units SC BID and SSI AC/HS. (5) Dehydration: Start date: 11/15/20 Start time: 16:04 Status: Acute Assessment and plan: RE-introduce gentle IVF and hold spironolactone continue to monitor fluid status (6) COPD (chronic obstructive pulmonary disease): Start date: 11/15/20 Start time: 16:04 Status: Chronic Assessment and plan: Not in acute exacerbation/at baseline. Continue Breo, Stiolto and prn albuterol. (7) Pulmonary fibrosis: Start date: 11/15/20 Start time: 16:05 Status: Chronic Assessment and plan: Continue to hold Ofev. Consult nutrition to discuss diet while on ofev as GI side effects of ofev can be managed by appropriate diet. (8) DVT prophylaxis: Start date: 11/15/20 Start time: 16:09 Status: Acute Assessment and plan: SC heparin (9) Discharge planning issues: Start date: 11/15/20 Start time: 16:09 Status: Acute Assessment and plan: Consult PT. continues to require hospitalization On discharge home, would either need SNF or Home health nursing/PT/OT. above case discussed with Dr. Dyer Subjective Subjective Patient reports: other Interval history since last seen: Pleasant elderly woman sitting up in bed with oxygen on. She endorsed vomiting after breakfast this morning that lead to SOB with cough, she is know requiring oxygen and has wheezing bilaterally throughout all lung aguilar. Question aspriation pneumonia. Will get stat CXR, duoneb, IS and procalcitonin. She denies CP and has not had vomiting since. Exam Narrative Exam Narrative: General: livan elderly female, laying in bed with HOB elevated on oxygen c/o SOB HEENT: EOMI, MMM Heart: RRR, no m/r/g Lungs: crackles at B bases, wheezing bilaterally throughout all lung aguilar Abdomen: soft, tender on minimal superficial palpation in RUQ/epigastrium Extremities: no edema, clubbing or cyanosis BLEs Objective Last Vital Signs Temp 36.4 C L 11/15/20 08:04 Pulse 73 11/15/20 08:04 Resp 17 11/15/20 08:04 BP 134/62 11/15/20 08:04 Pulse Ox 96 11/15/20 09:39 Laboratory Results - last 24 hr 11/15/20 11/15/20 07:00 07:00 WBC 6.74 RBC 4.04 Hgb 12.0 Hct 36.2 MCV 89.6 MCH 29.7 MCHC 33.1 RDW 14.3 Plt Count 186 MPV 11.2 H Immature Gran % 0.3 Neutrophils % 62.4 Lymphocytes % 24.0 Monocytes % 8.0 Eosinophils % 4.6 Basophils % 0.7 Nucleated RBC % 0 Absolute Neutrophils 4.20 Absolute Lymphocytes 1.62 Absolute Monocytes 0.54 Absolute Eosinophils 0.31 Absolute Basophils 0.05 Sodium 135 L Potassium 4.1 Chloride 104 Carbon Dioxide 23.4 Anion Gap 7.6 BUN 15 Creatinine 1.05 H Estimated GFR/1.73 m2 51.96 Glucose 280 H Calcium 8.2 L Magnesium 1.7 L Documented by User: Randi Dyer MD 11/16/20 14:04
--- NOTE | 2020-11-15 16:14 | DI.RAD_ITS ---
EXAM: XR PORTABLE CHEST AP CLINICAL HISTORY: vomiting with wheezing, sob ?asp pneum. TECHNIQUE: 2D digital imaging was performed. COMPARISON: 11/12/2020 chest x-ray FINDINGS: Heart size is unchanged. Mediastinum unchanged. There are increasing patchy infiltrate is bilaterally, most prominent in the right upper lobe region. No pleural effusions. No pulmonary edema. Resection of the lateral aspect of the left clavicle again noted. IMPRESSION: Worsening pulmonary infiltrates bilaterally, not associated with obvious pleural effusions on this si ngle AP portable view.Recommend testing for Covid-19 DATA REPOSITORY: RADIATION DOSE DELIVERED:
--- NOTE | 2020-11-15 16:24 | DI.VRAD_ITS ---
PROCEDURE INFORMATION: Exam: XR Chest, 1 View Exam date and time: 11/15/2020 4:12 PM Age: 70 years old Clinical indication: Cough and wheezing TECHNIQUE: Imaging protocol: XR of the chest Views: 1 view. COMPARISON: CR XR ABD FLAT UPRIGHT PA CHEST 11/12/2020 9:03 AM FINDINGS: Lungs: Patchy bilateral pulmonary infiltrates with a prominent a peripheral distribution. Pleural space: Unremarkable. No pleural effusion. No pneumothorax. Heart/Mediastinum: Unremarkable. No cardiomegaly. Bones/joints: Resection distal left. Degenerate arthritis spine and shoulders. Other findings: Shallow inspiration. IMPRESSION: Patchy bilateral pulmonary infiltrates progressed from 11/12/2020 Dictated and Authenticated by: Tiara Blair MD. Ordering:HAZEL Kearns MD
[2020-11-15] MEDS: Albuterol/Ipratropium 3 ML UPD VIAL UPD (16:42)
[2020-11-15 17:31] LABS: Procalcitonin < 0.1 ng/mL
[2020-11-15] MEDS: PIPERACILLIN/TAZO 3.375 GM in Normal Saline 50 ML IVPB (18:12)
[2020-11-15] MEDS: methylPREDNISolone SUCC 125 MG VIAL 60 MG IVP (18:13)
[2020-11-15] MEDS: Normal Saline Flush 10 ML SYR IVP (18:14)
[2020-11-15] MEDS: Donepezil 5 MG TAB PO (19:43)
[2020-11-15] MEDS: Simvastatin 40 MG TAB PO (21:24)
[2020-11-16] MEDS: PIPERACILLIN/TAZO 3.375 GM in Normal Saline 50 ML IVPB ×5 (00:24→23:20)
[2020-11-16 03:25] VITALS: O2SAT 98
[2020-11-16] MEDS: Normal Saline Flush 10 ML SYR IVP ×4 (05:16→23:19)
[2020-11-16] MEDS: methylPREDNISolone SUCC 125 MG VIAL 60 MG IVP (05:17)
[2020-11-16] MEDS: Heparin 5,000 UNITS/ML VIAL 5000 UNITS SC ×3 (05:19→22:03)
--- NOTE | 2020-11-16 07:14 | PT.INTREAT ---
Date of service: 11/17/20 Time of Service: 07:40 PT Notes Visit Reasons: DKA Inpatient Physical Therapy Treatment Note [facility] Date: 11/17/2020 PRECAUTIONS: Fall SUBJECTIVE: Elly states that her granddaughter is with her during the day and works nights. Reports feeling much better today compared to last Monday. OBJECTIVE: PAIN: No c/o pain BED MOBILITY/TRANSFERS Supine-sit: SBA Sit-stand: SBA Stand-sit: SBA Bed-Chair: SBA Chair-bed: SBA GAIT Assistive Device: FWW Weight bearing: Full Assist: SBA Distance: 250' Deviation: x 2 seated rests due to mild fatigue. Gait pattern unremarkbale. ASSESSMENT: Improving activity tolerance with oxygen saturation ranging from 90%-96% on 2 L/minute. Exhibits mild shortness of breath after ambulation activity but recovers with rest. Does not require physical assistance with mobility ADL performance as long as she has an AD to use. PLAN: Continue with PT plan of care as initially established in order to achieve set patient/PT goals. May go home once medically cleared by hospitalist. No mobility equipment needs at this time. TREATMENT CODE/TIME: [id number] x 35 minutes beginning at 7:14 AM.
[2020-11-16 07:33] LABS: Abs Immature Grans 0.06 10^3/uL (0.0-0.06); Absolute Basophil Count 0.02 10^3/uL (0.0-0.2); Absolute Eosinophil Count 0.01 10^3/uL (0.0-0.7); Absolute Lymphocyte Count 0.71 10^3/uL (1.2-3.4); Absolute Monocyte Count 0.17 10^3/uL (0.1-0.8); Basophils % 0.2; Eosinophils % 0.1; HCT 37.8 % (36.0-46.0); HGB 12.6 g/dL (11.2-15.7); Immature Grans % 0.6; Lymphocytes % 6.5; MCH 30.2 pg (27.0-33.0); MCHC 33.3 % (32.0-36.0); MCV 90.6 fL (80-95); MPV 11.1 fL (8.0-11.0); Monocytes % 1.6; Nucleated RBC 0 %; Platelet Count 203 10^3/uL (130-400); RBC 4.17 10^6/uL (3.93-5.22); RDW 13.9 % (11.7-14.6); RDW-SD 46.2 fL; WBC 10.89 10^3/uL (4.4-10.8)
[2020-11-16 07:39] LABS: Absolute Neutrophil Count 9.91 10^3/uL (1.2-6.7)
[2020-11-16 07:40] LABS: Anion Gap 5.8 mmol/L (3-11); BUN 18 mg/dL (7-18); CO2 25.2 mmol/L (21.0-32.0); Calcium 8.9 mg/dL (8.5-10.1); Chloride 103 mmol/L (98-107); Estimated GFR 44.54 (mL/min/1.73m2); Glucose 386 mg/dL (74-106); Magnesium 2.1 mg/dL (1.8-2.4); Potassium 5.1 mmol/L (3.5-5.1); Sodium 134 mmol/L (136-145)
[2020-11-16] MEDS: Budesonide/Formoterol 160/4.5 6 GM 60 PUFF INH IH ×2 (08:03→19:47)
[2020-11-16 08:07] VITALS: BP 123/65; PULSE 72; RESP 19; TEMP 36.6; O2SAT 98
[2020-11-16] MEDS: Docusate Sodium 100 MG CAP PO ×2 (08:33→19:46)
[2020-11-16] MEDS: Sucralfate 1 GM TAB PO ×2 (08:33→22:05)
[2020-11-16] MEDS: Pantoprazole 40 MG TABCR PO (08:33)
[2020-11-16] MEDS: Polyethylene Glycol 3350 17 GM PACKET PO (08:33)
[2020-11-16] MEDS: Insulin Aspart 300 UNITS/3 ML PEN SC ×6 (08:34→22:04)
[2020-11-16] MEDS: Insulin Glargine 300 UNITS/3 ML PEN 40 UNITS SC (08:34)
[2020-11-16 08:35] VITALS: O2SAT 96
[2020-11-16] MEDS: Nystatin POWDER 15 GM JAR TP ×3 (08:47→19:47)
--- NOTE | 2020-11-16 09:53 | CMPROGNOTE_ITS ---
Care Management Progress Note S/O: Elly sounded alert and oriented over the phone. She requested this medical underwriter seek out information about options in the community for adjusting her dentures as she reports they fall out all the time. She also shared that she will remain at [facility] the next few days due to a blood infection. She describes aspirating on vomit yesterday morning and worries about having bronchitis, sharing that everything is coming on me at once. She is pleasant in interaction and forthcoming with information. CM notified of PCP appointment cancellation and shared that another appointment will be coordinated for Elly prior to discharge. As well, CM reviewed Evelyn's (Diabetic Education) efforts to coordinate CGM through her new PCP, Dharmesh Oneil at [facility]. Elly remains agreeable to plan including new VNA orders upon discharge. CM continues to follow. A: Elly is a 70 year old woman admitted on 11/12/20 with DKA P: Elly will return home when ready per MD. She will have a new follow up appointment with her PCP scheduled. Evelyn (Diabetic Education) continues to attempt to coordinate CGM through her new PCP, Dharmesh Oneil at [facility]. CM supporting direct communication. Anticipate Elly will have new orders for VNA RN/PT to monitor diabetes until outpatient plan is in place as well as to improve strength and mobility. Elly will transport via private vehicle with family; if unavailable she will utilize [facility]. CM continues to follow.
[2020-11-16 09:54] VITALS: O2SAT 96
--- NOTE | 2020-11-16 10:58 | PT.INTREAT ---
Date of service: 11/16/20 Time of Service: 10:35 PT Notes Visit Reasons: DKA Inpatient Physical Therapy Treatment Note [facility] Date: 11/16/2020 PRECAUTIONS: Fall SUBJECTIVE: Elly states that she has a constant cough. She reports that at home she will work on a task, such as washing dishes or vacuuming, and will only be able to complete part of her task before she needs to take a seated rest due to SOB. She reports that she drives a motorized cart while grocery shopping. Her granddaughter lives with her, but works from 3-11 pm. OBJECTIVE: PAIN: No c/o pain BED MOBILITY/TRANSFERS Supine-sit: S Sit-stand: S Stand-sit: S Bed-Chair: S Chair-bed: S GAIT Assistive Device: FWW Weight bearing: Full Assist: S Distance: 250' Deviation: No seated rest, increased SOB VITALS: SaO2: 91-97% on RA with activity STAIRS: Up/down 3x4 and 2x6 using B rails and a step-to pattern with supervision. ASSESSMENT: Patient tolerated session with increased SOB with gait training, although she recovers quickly with seated rest, and O2 sats remain 91-97%. She was able to tolerate the addition of stair training, and is requiring supervision only for bed mobility, transfers, stair negotiation, and gait training with FWW support. PLAN: Continue with gait training and global conditioning for improved activity tolerance. TREATMENT CODE/TIME: 20 minutes; [id number]
[2020-11-16] MEDS: Escitalopram 10 MG TAB PO (11:10)
[2020-11-16 12:50] LABS: Glucose 484 mg/dL (74-106)
--- NOTE | 2020-11-16 14:05 | W.PM.PROGNOT ---
Objective Last Vital Signs Temp 36.6 C 11/16/20 08:07 Pulse 72 11/16/20 08:07 Resp 19 11/16/20 08:07 BP 123/65 11/16/20 08:07 Pulse Ox 96 11/16/20 09:54 Laboratory Results - last 24 hr 11/15/20 11/16/20 11/16/20 16:30 06:25 06:25 WBC 10.89 H D RBC 4.17 Hgb 12.6 Hct 37.8 MCV 90.6 MCH 30.2 MCHC 33.3 RDW 13.9 Plt Count 203 MPV 11.1 H Immature Gran % 0.6 Neutrophils % 91.0 Lymphocytes % 6.5 Monocytes % 1.6 Eosinophils % 0.1 Basophils % 0.2 Nucleated RBC % 0 Absolute Neutrophils 9.91 H Absolute Lymphocytes 0.71 L Absolute Monocytes 0.17 Absolute Eosinophils 0.01 Absolute Basophils 0.02 Sodium 134 L Potassium 5.1 D Chloride 103 Carbon Dioxide 25.2 Anion Gap 5.8 BUN 18 Creatinine 1.20 H Estimated GFR/1.73 m2 44.54 Glucose 386 H D Calcium 8.9 Magnesium 2.1 Procalcitonin < 0.1 11/16/20 12:15 WBC RBC Hgb Hct MCV MCH MCHC RDW Plt Count MPV Immature Gran % Neutrophils % Lymphocytes % Monocytes % Eosinophils % Basophils % Nucleated RBC % Absolute Neutrophils Absolute Lymphocytes Absolute Monocytes Absolute Eosinophils Absolute Basophils Sodium Potassium Chloride Carbon Dioxide Anion Gap BUN Creatinine Estimated GFR/1.73 m2 Glucose 484 H Calcium Magnesium Procalcitonin
--- NOTE | 2020-11-16 14:16 | W.NUTCONSULT ---
Date of service: 11/16/20 Time of Service: 14:17 Nutritional Consult ASSESSMENT: Elly was referred for nutrition consult in view of dietary changes needed while taking ofev for pulmonary fibrosis. Now dx with aspiration PNA following vomitting yesterday. Blood sugars remains elevated (>300 mg/dl) most of today despite SS insulin. Elly reports diarrhea several times daily when taking ofev. NUTRITIONAL DIAGNOSIS: Impaired nutrient utilization Increased nutrient loses INTERVENTION: Discussed with Elly how to best manage her Dm when having diarrhea due to ofev medication. Recommend continuous glucose monitor when discharged home to help her monitor her fluctuation blood sugars and intervene in timely manner. Educated Elly on dietary changes to improve diarrhea while taking ofev. Provided written material. MONITORING AND EVALUATION: weight, po intake, diarrhea frequency Time Spent in Nutritional Counseling and Treatment: 10
--- NOTE | 2020-11-16 15:11 | W.PM.PROGNOT ---
Date of Service Date of service: 11/16/20 Time of Service: 15:12 Assessment and Plan Assessment and plan (1) Aspiration pneumonia: Status: Acute Assessment and plan: Continue zosyn. Decrease steroids - switch to PO prednisone as not wheezing today. (2) DKA (diabetic ketoacidosis): Status: Resolved Assessment and plan: Uptitrate basal insulin and increase prandial scheduled insulin. Continue SSI. Qualifiers: Diabetes mellitus complication detail: without coma (3) IDDM (insulin dependent diabetes mellitus): Status: Chronic Assessment and plan: As above. (4) Dehydration: Status: Resolved Assessment and plan: IVF d/c'ed. (5) COPD (chronic obstructive pulmonary disease): Status: Chronic Assessment and plan: in slight exacerbation given episode of aspiration. Taper steroids. Continue Breo, Stiolto and prn albuterol. (6) Pulmonary fibrosis: Status: Chronic Assessment and plan: Continue to hold Ofev for now with plans to resume once n/v have resolved. The dose to be resumed is 100 mg PO every other day. nutrition consulted. Discussed with Dr Kumar. (7) Chronic respiratory failure with hypoxia: Status: Chronic Assessment and plan: The patient is requiring O2 now. WIll recheck ambulatory pulse ox prior to d/c. (8) Nausea & vomiting: Status: Acute Assessment and plan: R/o gastroparesis. Obtain GES. (9) DVT prophylaxis: Status: Acute Assessment and plan: SC heparin (10) Discharge planning issues: Status: Acute Assessment and plan: Consult PT. On discharge home, would either need SNF or Home health nursing/PT/OT. Subjective Subjective Interval history since last seen: Ms Pina states that she feels about the same today as she did yesterday. Continues to report a dry nonproductive cough. Complains of chest pain and abdominal pain from coughing. Denies dizziness and nausea now, but is worried about vomiting so frequently. We discussed that we need to rule out gastroparesis, and GES is ordered for tomorrow. Case discussed with Dr Santiago. Again, diet teaching was emphasized, and Elly can resume taking Ofev at 100 mg every other day once she is better. Exam Narrative Exam Narrative: General: pleasant elderly female, sitting up on a commode, A&Ox3, cooperative, appears to be in good spirits, not visibly tachypneic/dyspneic, not heard coughing HEENT: EOMI, MMM Heart: RRR, no m/r/g Lungs: crackles at B bases, no wheezing heard today Abdomen: soft, tender on minimal superficial palpation in RUQ/epigastrium Extremities: trace edema BLEs Objective Last Vital Signs Temp 36.6 C 11/16/20 08:07 Pulse 72 11/16/20 08:07 Resp 19 11/16/20 08:07 BP 123/65 11/16/20 08:07 Pulse Ox 96 11/16/20 09:54 Laboratory Results - last 24 hr 11/15/20 11/16/20 11/16/20 16:30 06:25 06:25 WBC 10.89 H D RBC 4.17 Hgb 12.6 Hct 37.8 MCV 90.6 MCH 30.2 MCHC 33.3 RDW 13.9 Plt Count 203 MPV 11.1 H Immature Gran % 0.6 Neutrophils % 91.0 Lymphocytes % 6.5 Monocytes % 1.6 Eosinophils % 0.1 Basophils % 0.2 Nucleated RBC % 0 Absolute Neutrophils 9.91 H Absolute Lymphocytes 0.71 L Absolute Monocytes 0.17 Absolute Eosinophils 0.01 Absolute Basophils 0.02 Sodium 134 L Potassium 5.1 D Chloride 103 Carbon Dioxide 25.2 Anion Gap 5.8 BUN 18 Creatinine 1.20 H Estimated GFR/1.73 m2 44.54 Glucose 386 H D Calcium 8.9 Magnesium 2.1 Procalcitonin < 0.1 11/16/20 12:15 WBC RBC Hgb Hct MCV MCH MCHC RDW Plt Count MPV Immature Gran % Neutrophils % Lymphocytes % Monocytes % Eosinophils % Basophils % Nucleated RBC % Absolute Neutrophils Absolute Lymphocytes Absolute Monocytes Absolute Eosinophils Absolute Basophils Sodium Potassium Chloride Carbon Dioxide Anion Gap BUN Creatinine Estimated GFR/1.73 m2 Glucose 484 H Calcium Magnesium Procalcitonin
[2020-11-16 15:59] VITALS: BP 101/37; PULSE 72; RESP 18; TEMP 36.4; O2SAT 94
[2020-11-16] MEDS: Insulin Aspart 300 UNITS/3 ML PEN 10 UNITS SC (16:45)
[2020-11-16 19:20] VITALS: O2SAT 92
[2020-11-16] MEDS: Donepezil 5 MG TAB PO (19:46)
[2020-11-16] MEDS: Insulin Glargine 300 UNITS/3 ML PEN 50 UNITS SC (19:47)
[2020-11-16] MEDS: Simvastatin 40 MG TAB PO (22:06)
[2020-11-16] MEDS: Benzonatate 100 MG CAP PO (22:11)
[2020-11-17] VITALS (9 sets, daily range): BP systolic 102–107; BP diastolic 53–65; PULSE 61–67; RESP 14–16; TEMP 36.4–36.8; O2SAT 94–100
[2020-11-17] MEDS: PIPERACILLIN/TAZO 3.375 GM in Normal Saline 50 ML IVPB ×4 (05:06→23:02)
[2020-11-17] MEDS: Heparin 5,000 UNITS/ML VIAL 5000 UNITS SC ×3 (05:06→21:32)
[2020-11-17 07:30] LABS: Abs Immature Grans 0.04 10^3/uL (0.0-0.06); Absolute Basophil Count 0.05 10^3/uL (0.0-0.2); Absolute Eosinophil Count 0.29 10^3/uL (0.0-0.7); Absolute Lymphocyte Count 1.53 10^3/uL (1.2-3.4); Absolute Neutrophil Count 6.82 10^3/uL (1.2-6.7); Basophils % 0.5; Eosinophils % 3.1; HCT 38.3 % (36.0-46.0); HGB 12.8 g/dL (11.2-15.7); Immature Grans % 0.4; Lymphocytes % 16.6; MCH 30.8 pg (27.0-33.0); MCHC 33.4 % (32.0-36.0); MCV 92.1 fL (80-95); MPV 11.4 fL (8.0-11.0); Monocytes % 5.4; Nucleated RBC 0 %; Platelet Count 228 10^3/uL (130-400); RBC 4.16 10^6/uL (3.93-5.22); RDW 14.5 % (11.7-14.6); RDW-SD 48.5 fL; WBC 9.23 10^3/uL (4.4-10.8)
[2020-11-17 07:34] LABS: Anion Gap 6.6 mmol/L (3-11); BUN 22 mg/dL (7-18); CO2 25.4 mmol/L (21.0-32.0); CREATININE 1.25 mg/dL (0.55-1.02); Chloride 108 mmol/L (98-107); Estimated GFR 42.49 (mL/min/1.73m2); Glucose 142 mg/dL (74-106); Potassium 3.7 mmol/L (3.5-5.1); Sodium 140 mmol/L (136-145)
[2020-11-17] MEDS: Insulin Aspart 300 UNITS/3 ML PEN 10 UNITS SC (07:34)
[2020-11-17] MEDS: Nystatin POWDER 15 GM JAR TP ×3 (07:35→19:35)
[2020-11-17] MEDS: Insulin Glargine 300 UNITS/3 ML PEN 50 UNITS SC (07:35)
[2020-11-17] MEDS: Budesonide/Formoterol 160/4.5 6 GM 60 PUFF INH IH ×2 (07:52→19:33)
--- NOTE | 2020-11-17 08:00 | DI.NM_ITS ---
CLINICAL HISTORY: diabetes, n/v; suspected gastroparesis. COMPARISON: No exams were available for comparison EXAMINATION: PO Dose: 1 0.0 mCi Sulfur colloid in in 2 eggs. One slice of bread and 8 out is of veronica er were also administered. Images: Immediately and out to 4 hours. Minutes. FINDINGS: The total gastric emptying at 1 hour is calculated to be 70 % The T1/2 is 41 min. At 2 hours emptying is calculated at 77 percent. 4 hours 99.6 percent empty. IMPRESSION: 1. No evidence of delayed gastric emptying. SNM guidelines: 40% or more gastric emptying at 90 minutes is considered normal. Normal T 1/2 < 50 mi nutes. < 30% at 1 hour signifies abnormal rapid gastric emptying.
[2020-11-17] MEDS: Normal Saline Flush 10 ML SYR IVP ×2 (12:10→20:08)
[2020-11-17] MEDS: Insulin Aspart 300 UNITS/3 ML PEN 7 UNITS SC ×2 (12:11→16:47)
--- NOTE | 2020-11-17 14:36 | PT.INTREAT ---
Date of service: 11/17/20 Time of Service: 12:00 PT Notes Visit Reasons: DKA Inpatient Physical Therapy Treatment Note [facility] Date: 11/17/2020 PRECAUTIONS: Fall SUBJECTIVE: Elly is pleasant and agreeable to participating in PT this morning. She reports that she has been at testing all morning. She states that she has not ambulated or transferred within her room independently, but feels that she would be able to do so safely. She also states that is she does not feel safe or able to do so, she knows to call for help. OBJECTIVE: Patient cleared for independent transfers and ambulation within her room with FWW support. PAIN: No c/o pain BED MOBILITY/TRANSFERS Supine-sit: I Sit-supine: I Sit-stand: I Stand-sit: I Bed-Chair: I Chair-bed: I GAIT Assistive Device: FWW Weight bearing: Full Assist: S Distance: 300' Deviation: No rests, increased SOB ASSESSMENT: Patient continues to demonstrate significant SOB with gait training, although does not require seated rest. She demonstrates independence with bed mobility and transfers at this time. PLAN: Continue with global strengthening and conditioning for improved activity tolerance. TREATMENT CODE/TIME: 10 minutes; 95702; 12:00-12:10
--- NOTE | 2020-11-17 14:47 | W.PM.PROGNOT ---
Date of Service Date of service: 11/17/20 Time of Service: 14:47 Assessment and Plan Assessment and plan (1) Aspiration pneumonia: Status: Acute Assessment and plan: Continue zosyn. Continue prednisone taper. Not requiring O2 during the day today. Assess ambulatory pulse ox tomorrow. (2) DKA (diabetic ketoacidosis): Status: Resolved Assessment and plan: Transitioned to basal bolus insulin. Qualifiers: Diabetes mellitus complication detail: without coma (3) IDDM (insulin dependent diabetes mellitus): Status: Chronic Assessment and plan: Derease both basal and scheduled prandial insulin given decrease in dose of steroids. Continue SSI. (4) Dehydration: Status: Resolved Assessment and plan: IVF d/c'ed. (5) COPD (chronic obstructive pulmonary disease): Status: Chronic Assessment and plan: in slight exacerbation given episode of aspiration. Taper steroids. Continue Breo, Stiolto and prn albuterol. (6) Pulmonary fibrosis: Status: Chronic Assessment and plan: Continue to hold Ofev for now with plans to resume once n/v have resolved. The dose to be resumed is 100 mg PO every other day. nutrition consulted. Discussed with Dr Kumar. (7) Chronic respiratory failure with hypoxia: Status: Chronic Assessment and plan: On RA today Will recheck ambulatory pulse ox prior to d/c. (8) Nausea & vomiting: Status: Acute Assessment and plan: R/o gastroparesis. Await results of gastric emptying study. (9) DVT prophylaxis: Status: Acute Assessment and plan: SC heparin (10) Discharge planning issues: Status: Acute Assessment and plan: Consult PT. On discharge home, would need home health nursing/PT/OT. Subjective Subjective Interval history since last seen: Ms Pina states she is feeling better today. She just completed her gastric emptying study. The results are pending. No dizziness, nausea, shortness of breath. Same nonproductive cough. Has fecal incontinence (soft, not diarrhea) every time she coughs, she says. Has chest pain reproducible with palpation. Exam Narrative Exam Narrative: General: pleasant elderly female, sitting in bed, having lunch HEENT: EOMI, MMM Heart: RRR, no m/r/g Lungs: crackles at B bases, no wheezing, dry cough, overall sounds better. Abdomen: soft, nontender, nondistended Extremities: trace edema BLEs Objective Last Vital Signs Temp 36.8 C 11/17/20 07:07 Pulse 67 11/17/20 07:07 Resp 16 11/17/20 07:07 BP 107/53 L 11/17/20 07:07 Pulse Ox 96 11/17/20 14:39 Laboratory Results - last 24 hr 11/17/20 11/17/20 06:32 06:32 WBC 9.23 RBC 4.16 Hgb 12.8 Hct 38.3 MCV 92.1 MCH 30.8 MCHC 33.4 RDW 14.5 Plt Count 228 MPV 11.4 H Immature Gran % 0.4 Neutrophils % 74.0 Lymphocytes % 16.6 Monocytes % 5.4 Eosinophils % 3.1 Basophils % 0.5 Nucleated RBC % 0 Absolute Neutrophils 6.82 H Absolute Lymphocytes 1.53 Absolute Monocytes 0.50 Absolute Eosinophils 0.29 Absolute Basophils 0.05 Sodium 140 Potassium 3.7 D Chloride 108 H Carbon Dioxide 25.4 Anion Gap 6.6 BUN 22 H Creatinine 1.25 H Estimated GFR/1.73 m2 42.49 Glucose 142 H D Calcium 9.0 Magnesium 2.0
--- NOTE | 2020-11-17 16:11 | CHAPLAIN ---
Elly was in bed when I visited. I explained my role and offered support. She thanked me for visiting and said she's feeling better. She hopes to go home tomorrow.
[2020-11-17] MEDS: Insulin Aspart 300 UNITS/3 ML PEN SC ×2 (16:47→21:29)
--- NOTE | 2020-11-17 16:52 | CMPROGNOTE_ITS ---
Care Management Progress Note S/O: Elly sounded alert and oriented over the phone. She is pleasant in interaction and forthcoming with information. Elly remains agreeable to plan including new VNA orders upon discharge. CM continues to follow. A: Elly is a 70 year old woman admitted on 11/12/20 with DKA P: Elly will return home when ready per MD. She will have a new follow up appointment with her PCP scheduled. Evelyn (Diabetic Education) continues to coordinate CGM through her new PCP, Dharmesh Oneil at [facility]. Elly will have new orders for VNA RN for DM monitoring. Elly was cleared by PT as independent to transfer in room with FWW. Elly will transport via private vehicle with family; if unavailable she will utilize [facility]. CM continues to fo [facility].
[2020-11-17] MEDS: Docusate Sodium 100 MG CAP PO (19:32)
[2020-11-17] MEDS: Donepezil 5 MG TAB PO (19:33)
[2020-11-17] MEDS: Insulin Glargine 300 UNITS/3 ML PEN 45 UNITS SC (19:34)
[2020-11-17] MEDS: Simvastatin 40 MG TAB PO (21:29)
[2020-11-17] MEDS: Benzonatate 100 MG CAP PO (22:08)
[2020-11-18 04:20] VITALS: O2SAT 94
[2020-11-18] MEDS: PIPERACILLIN/TAZO 3.375 GM in Normal Saline 50 ML IVPB (05:14)
[2020-11-18] MEDS: Heparin 5,000 UNITS/ML VIAL 5000 UNITS SC (05:14)
[2020-11-18] MEDS: Normal Saline Flush 10 ML SYR IVP ×2 (05:15→07:44)
[2020-11-18 07:02] VITALS: BP 122/65; PULSE 78; RESP 14; TEMP 36.2; O2SAT 96
[2020-11-18 07:24] LABS: Anion Gap 8.9 mmol/L (3-11); BUN 19 mg/dL (7-18); CO2 26.1 mmol/L (21.0-32.0); CREATININE 1.11 mg/dL (0.55-1.02); Calcium 8.6 mg/dL (8.5-10.1); Chloride 108 mmol/L (98-107); Estimated GFR 48.74 (mL/min/1.73m2); Glucose 184 mg/dL (74-106); Magnesium 1.9 mg/dL (1.8-2.4); Potassium 3.7 mmol/L (3.5-5.1); Sodium 143 mmol/L (136-145)
[2020-11-18] MEDS: Polyethylene Glycol 3350 17 GM PACKET PO (07:39)
[2020-11-18] MEDS: Furosemide 20 MG TAB PO (07:39)
[2020-11-18] MEDS: predniSONE 20 MG TAB 40 MG PO (07:39)
[2020-11-18] MEDS: Pantoprazole 40 MG TABCR PO (07:40)
[2020-11-18] MEDS: Insulin Aspart 300 UNITS/3 ML PEN 7 UNITS SC ×2 (07:40→12:30)
[2020-11-18] MEDS: Docusate Sodium 100 MG CAP PO (07:40)
[2020-11-18] MEDS: Spironolactone 25 MG TAB PO (07:40)
[2020-11-18] MEDS: Insulin Glargine 300 UNITS/3 ML PEN 45 UNITS SC (07:41)
[2020-11-18] MEDS: Insulin Aspart 300 UNITS/3 ML PEN SC ×2 (07:41→12:30)
[2020-11-18] MEDS: Nystatin POWDER 15 GM JAR TP (07:42)
[2020-11-18] MEDS: Budesonide/Formoterol 160/4.5 6 GM 60 PUFF INH IH (07:47)
[2020-11-18 09:03] VITALS: PULSE 106; PULSE 83; RESP 16; RESP 24; O2SAT 93; O2SAT 96; O2SAT 97
--- NOTE | 2020-11-18 11:35 | W.PM.DS.N ---
Date of service: 11/18/20 Time of Service: 11:36 DS: Diagnosis Discharge Diagnosis (1) DKA (diabetic ketoacidosis): Status: Resolved (2) Aspiration pneumonia: Status: Acute (3) IDDM (insulin dependent diabetes mellitus): Status: Chronic (4) Dehydration: Status: Resolved (5) COPD (chronic obstructive pulmonary disease): Status: Chronic (6) Pulmonary fibrosis: Status: Chronic (7) Chronic respiratory failure with hypoxia: Status: Chronic Asessment and Plan: Not requiring O2 at rest or with ambulation during the night, but needs overnight oxymetry on discharge. (8) Nausea & vomiting: Status: Resolved (9) COVID-19 ruled out by laboratory testing: Status: Ruled-out Discharge Plan Disposition Patient Disposition: HOME W/HOME HEALTH SERVICE Condition: Good Discharge Details Reason For Visit: DKA Admit Date/Time: 11/12/20 10:50 Admit Provider: Fredy Weaver Attending Provider: Fredy Weaver Primary Care Provider: Dharmesh Nolasco Hospital Course Hospital Course: Ms Pina is a 70 year old female with PMHx of IDDM2, chronic hypoxic respiratory failure (4L of O2) due to pulmonary fibrosis and COPD, normally on 4L of O2 and prior history of gastrointestinal side-effects from her ofev (nintedanib) therapy for pulmonary fibrosis, who was admitted to [facility] ICU on 11/12/2020 under the hospitalist service for acute DKA in setting of dehydration from nausea/vomiting/diarrhea, again most likely caused by noncompliance with diet recommendations for her ofev therapy. (GI symptoms are significantly better on a protein rich diet and worse on carbohydrate-rich diet while on ofev). The patient was treated with insulin drip, then transitioned to basal bolus insulin when her anion gap had closed. She was transferred out of the ICU on 11/14/2020. The patient suffered from an aspiration event on 11/16/2020, with evidence of aspiration pneumonitis and hypoxia. (Interestingly, prior to this, her oxygen requirement was room air, though she normally uses O2 at 4L). She was initiated on zosyn and a steroid taper with improvement of oxygen requirement within 48 hrs to room air, even on ambulation. She would benefit from overnight oxymetry as outpatient. The patient's gastrointestinal symptoms have improved and she is able to tolerate PO without nausea/vomiting or diarrhea. I discussed her case with her junior assistant manager, Dr Kumar, who recommended resumption of ofev at 100 mg PO every other day. We ruled out diabetic gastroparesis with a negative gastric emptying scan. The patient's insulin regimen on prednisone 40 mg PO daily is currently lantus 45 units SC BID, 7 units of aspart with meals and a resistant sliding scale. As her lungs currently sound perfect, she is not going to be continued on prednisone on discharge (she should finish 2 more days of augmentin). Her tresiba dose is being changed to 35 units SC BID, and prandial lispro is going back to sliding scale. She would greatly benefit from a continuous glucose monitor on discharge to help guide further therapy. This is already being set up by nutrition with the PCP's office. She met with nutrition for both diabetes education and dietary counseling for ofev. The patient was evaluated by PT who feels the patient would benefit from home health PT. We feel the patient would benefit from home health RN and FISH ICER as well. Finally, I educated the patient on minimizing visitors to her house and trips to the grocery store and [employer] in times of COVID pandemic, to which she was somewhat resistant. This should be again reinforced by PCP. Care for patient as well as completion of her discharge summary on day of discharge took 60 minutes. Home Meds and New Rx's Prescriptions: New amoxicillin-pot clavulanate [Augmentin] 875-125 mg tablet 1 tab PO BID Qty: 4 RF: 0 Continued (DME) Wheeled walker with seat and basket Qty: 1 RF: 0 sucralfate 1 gram tablet 1 gm PO QACHS RF: 0 clotrimazole 1 % cream 1 applic topical TID Qty: 113 RF: 6 (DME) compress.stocking,knee,reg,lrg misc See Dose Instructions .ROUTE .MEDSUPPLY Qty: 2 RF: 0 magnesium oxide 400 mg (241.3 mg magnesium) tablet 400 mg PO DAILY Qty: 30 RF: 6 albuterol sulfate [Ventolin HFA] 8 GM HFA aerosol inhaler 2 puff Inhalation Q4H PRN Qty: 1 RF: 4 (DME) Oxygen Tank See Dose Instructions .ROUTE .MEDSUPPLY Qty: 1 RF: 0 (DME) Face mask to deliver Oxygen Qty: 2 RF: 6 benzonatate [Tessalon Perles] 100 mg capsule 100 mg PO BID-TID PRN (Reason: cough) Qty: 90 RF: 3 nystatin 100,000 unit/gram powder 1 applic TP TID Qty: 60 RF: 0 Breo Ellipta 200-25 mcg/dose blister with device 1 inh IH DAILY PRNRF: 0 simvastatin 40 mg tablet 40 mg PO HS Qty: 30 RF: 11 spironolactone 25 mg tablet 25 mg PO DAILY Qty: 30 RF: 11 escitalopram oxalate 10 mg tablet 10 mg PO .NOON Qty: 30 RF: 11 Jardiance 10 mg tablet 10 mg PO QAM Qty: 30 RF: 11 pantoprazole 40 mg tablet,delayed release (DR/EC) 40 mg PO DAILY Qty: 90 RF: 3 (DME) Oxygen Tank See Rx Instructions .ROUTE .MEDSUPPLY Qty: 1 RF: 0 cyclobenzaprine 5 mg tablet 5 mg PO TID PRN (Reason: muscle spasm) Qty: 90 RF: 6 acidophilus-pectin, citrus 25 million cell -100 mg tablet 1 tab PO TID Qty: 90 RF: 11 albuterol sulfate 2.5 mg /3 mL (0.083 %) solution for nebulization 2.5 mg Inhalation Q6H PRN (Reason: shortness of breath or wheezing) Qty: 10 RF: 6 furosemide 40 mg tablet 40 mg PO DAILY Qty: 30 RF: 11 (DME) pen needle, diabetic [Pen Needle] 31 gauge x 5/16 needle 1 ea Miscellaneous QID Qty: 4 RF: 12 Blister gordon package See Rx Instructions PO RF: 0 (DME) Blood Glucose Test Strip 1 ea Miscellaneous TID Qty: 400 RF: 12 insulin lispro [Humalog KwikPen Insulin] 100 unit/mL insulin pen See Rx Instructions SC .per ss Qty: 15 RF: 11 (DME) lancets 28 gauge misc 1 ea Miscellaneous TID Qty: 400 RF: 12 epinephrine [EpiPen 2-Gordon] 0.3 MG/0.3 ML auto-injector 0.3 mg IM ONCE PRNRF: 0 promethazine 12.5 mg tablet 12.5 mg PO Q6H PRN (Reason: nausea and vomiting) Qty: 10 RF: 0 donepezil 5 mg Tablet 5 mg PO QPM RF: 0 Januvia 25 mg Tablet 25 mg PO QAM RF: 0 ketoconazole 2 % Cream 1 applic topical BID Qty: 30 RF: 0 zinc oxide 20 % Ointment 60 g topical PRN PRNQty: 0 RF: 0 vits A and D-white pet-lanolin Ointment 60 g topical PRN PRNQty: 0 RF: 0 Changed Ofev 100 mg Capsule 100 mg PO Q OTHER DAY Qty: 0 RF: 0 Tresiba FlexTouch U-200 200 unit/mL (3 mL) insulin pen 35 unit SC BID Qty: 12 RF: 12 Discharge Instructions Instructions: Amoxicillin/Clavulanate Potassium (By mouth), High Protein Diet (DC), Diabetic Ketoacidosis (DC), Aspiration Pneumonia (DC) Additional Instructions: Return to the hospital with any fever, bleeding, chest pain, or shortness of breath. Finish your antibiotics as prescribed. Follow up with your PCP and with Dr Santiago in 1-2 weeks. Care Plan Goals: Home with home health RN, PT, FISH ICER. PCP to follow up on continuous glucose monitor. Referrals: Dharmesh Nolasco NP [Primary Care Provider] - Mone Santiago MD [ NON-[facility] STAFF PHYSICIAN] - Activity:: Activity as Tolerated Equipment/Supplies:: No Equipment Needed Diet:: carb consistent high protein Discharge Orders Discharge Orders: Discharge Order (Routine); Ordered 11/18/20 Ordered By: Randi Dyer Other Ambulatory Orders: SaO2 Overnight Study (Outpt) (ONCE) Timeframe: 20201119 Location: Determined by Patient Ordered By: Randi Dyer DS: Summary Time Spent with Patient providing and/or coordinating discharge services: Greater than 30 minutes Status at Discharge Functional status at discharge: independent ambulation Overall status at discharge: patient is progressing back to baseline Mental Status: mental status grossly normal Speech and Movement: speech and movement normal Mood: congruent mood Affect: normal affect Exam Narrative Exam Narrative: General: pleasant elderly female, sitting in bed, A&Ox3, looks well HEENT: EOMI, MMM Heart: RRR, no m/r/g Lungs: crackles at B bases, no wheezing, dry cough, overall sounds better. Abdomen: soft, nontender, nondistended Extremities: trace edema BLEs Psych Mental Status: mental status grossly normal Speech and Movement: speech and movement normal Mood: congruent mood Affect: normal affect DS: Data Vitals/I&O Vitals and I&O: Vital Signs Temperature 36.2 C L 11/18/20 07:02 Temperature Source Tympanic 11/18/20 07:02 Pulse 78 11/18/20 07:02 Pulse Rhythm Regular 11/18/20 07:02 Pulse 71 11/14/20 14:01 Respiratory Rate 14 11/18/20 07:02 Respiratory Effort Non-Labored 11/18/20 07:02 Respiratory Depth Normal 11/18/20 07:02 Respiratory Pattern Normal 11/18/20 07:02 Blood Pressure 122/65 11/18/20 07:02 Blood Pressure Mean 62 11/14/20 16:03 Blood Pressure Position Supine 11/14/20 13:00 Pulse Oximetry 96 11/18/20 07:02 Oxygen Delivery Method Room Air 11/18/20 07:02 Oxygen Flow Rate 0 11/18/20 07:02 Pain Level 0 11/18/20 07:40 Comment 11/12/20 16:00 Intake & Output 11/17/20 11/17/20 11/18/20 11:59 23:59 11:59 Intake Total 100 / 440 340 / 440 640 / 640 Output Total 851 / 1151 300 / 1151 1400 / 1400 Balance -751 / -711 40 / -711 -760 / -760 Weight 78.3 kg 78.5 kg Intake: IV 100 / 200 100 / 200 100 / 100 Oral 240 / 240 540 / 540 Output: Urine 850 / 1150 300 / 1150 1400 / 1400 Stool Other: Urine Color Yellow Pale Yellow Yellow Urine Appearance Clear Clear Clear Urine Odor None Normal Normal Comment mix with stool per pt void x1 voided unknown amount in toilet Stool Occult Blood Negative Negative Stool Size Small Smear Moderate Stool Characteristics Soft Liquid Soft Formed Brown Voiding Methods Bedside Commode Toilet Toilet Data Completed and Pending Completed studies during hospitalization [Text1]: XR chest/abdomen 11/12/2020: 1. Nonobstructive bowel gas pattern. 2. No radiopaque calculi. 3. No free air. 4. No acute pulmonary process. CXR 11/15/2020: Worsening pulmonary infiltrates bilaterally, not associated with obvious pleural effusions on this single AP portable view. Gastric emptying study 11/17/2020: 1. No evidence of delayed gastric emptying. Labs on day of discharge: Labs from last 24 hours 11/18/20 06:35 Sodium 143 Potassium 3.7 Chloride 108 H Carbon Dioxide 26.1 Anion Gap 8.9 BUN 19 H Creatinine 1.11 H Estimated GFR/1.73 m2 48.74 Glucose 184 H Calcium 8.6 Magnesium 1.9 Preliminary micro results at discharge 11/15/20 16:45 Blood Culture - Preliminary Blood NO GROWTH 48 HOURS 11/15/20 16:30 Blood Culture - Preliminary Blood NO GROWTH 48 HOURS [facility] Medical History Abdominal pain Acute gastroenteritis (03/16/18) Acute kidney injury (nontraumatic) Acute pneumonitis Anxiety (03/16/18) Asthma Asthma Back pain CHF (congestive heart failure) Chronic constipation (03/16/18) Cognitive impairment (03/16/18) Mild, w/Memory Loss Cubital tunnel syndrome (03/16/18) Depressive disorder DKA (diabetic ketoacidoses) Dyspnea (03/16/18) Edema (03/16/18) Essential hypertension (07/17/13) Gastroesophageal reflux disease without esophagitis (03/16/18) History of shingles (03/16/18) Hyperlipemia Insulin dependent diabetes mellitus Internal derangement of right knee Interstitial lung disease (03/16/18) Pulm: Jedlovsky Long-term use of high-risk medication (03/16/18) Metabolic acidosis with normal anion gap and bicarbonate losses Migraine (04/03/14) Neck pain (03/16/18) 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 History of section Ligation of fallopian tube Thoracoscopic (R)Lung Bx (02/12/18) Family History Mother , aged 81 from dementia, polina Sanab[place] Diabetes Essential hypertension CHF (congestive heart failure) Heart disease CHF/heart failure Dementia Father , aged 80 Diabetes Essential hypertension CAD (coronary artery disease) Heart disease [place] Hyperlipidemia Stroke Sister , aged 54 Diabetes Personal history of malignant neoplasm Lung Asthma Lung cancer Brother , of mesithelioma aged 62 Diabetes Essential hypertension Personal history of malignant neoplasm Lung, Prostate Hyperlipidemia Asthma Mesothelioma Brother , of PE following knee surgery age 69 Pulmonary embolus with infarction Daughter No problems noted. Son No problems noted. Social History Smoking/Tobacco Use Status: Never Smoking risk assessment performed?: Yes Alcohol Intake: never Details: monthly or less Drug use: Never Substance use type: does not use Adopted: No Caregiver/Support person: Yes Foster care: No Household members: none Housing: apartment Number of Children: 2 number of grandchildren: 5 Communication Needs: Hard of Hearing and Corrective Lenses Education Level: middle school Do you need help understanding health information?: Always current occupation: disabled Pets and animals: Yes Pets and animals: cat(s) Sexually active: No Do you think of yourself as: straight/heterosexual Current gender identity: female What is your relationship status?: How often do you talk on the phone with friends or family?: three or more times per week How often do you get together with friends or relatives?: three or more times per week How often do you attend roman catholic or sabianist services?: 1-3 times per year Do you belong to any clubs or organized social groups?: no Panel score (0-1 are the most socially isolated patients): 1 What type of physical activity do you participate in: none and sedentary lifestyle Duration: < 15 minutes/day Frequency: 1-2 times per week Bibi/Rastafarian: Voodoo Special bibi needs: No Agree to transfusion: Yes Seatbelt use: sometimes Helmet use: No Drive intox or ride w/intox drivers license examiner: No Water heater temp set <120 deg: Yes Working smoke detector in home: Yes Fire extinguisher in home: Yes Carbon monox detector in home: Yes Do you feel safe at home: Yes Do you feel safe in your relationship?: Yes Victim of physical abuse: No Victim of emotional abuse: No Victim of sexual abuse: No Would you like helpful sources: No Additional Social history: Lives in her own apartment in the [facility] near the hospital. Grandhien Kang used to live with her. His phone # is [phone]. Daughter Caridad lives in [place]. Son Himanshu lives in [facility], not as close to him. Gets together with brother Brian regularly who takes her shopping and goes for drives. Grandkids visit her home frequently.
--- NOTE | 2020-11-18 12:15 | PDOC.HHF2F_ITS ---
Home Health Certification Home Health Certification: 1. Encounter Date and Reason I certify that ZION NUNEZ was seen by Randi Dyer on 11/18/20 and that I had a [id number] encounter with this patient that meets the physician face to face encounter requirements. 2. Clinical Findings Supporting Skilled Need and Homebound Status I certify that home health services are medically necessary, include either intermittent care home and/or physical/speech therapy, and that this patient is homebound in that absences from the home require considerable and taxing effort and are infrequent or of short duration, or are attributable to the need to receive medical care. [X] (a) Attached documentation from encounter provides clinical findings supporting skilled need and homebound status (including what assistance patient requires to leave the home). The encounter with the patient was in whole, or in part, for the following medical condition, which is the primary reason for home health care: DKA Alf: recent admission for DKA, h/o chronic respiratory failure, yet not requiring O2 at the time of discharge, h/o pulmonary fibrosis, COPD provide medication teaching. Assess O2 requirement at home. Physical Therapy: eval and treat POLE TRUCK DRIVER: assess for resources needed in the community Homebound: unable to leave home without assistance 3. Certification and Authentication I certify that I composed the above information based on my clinical judgement relating to this patient's medical condition and, if applicable, clinical findi ngs communicated to me by the NPP or inpatient physician who performed the Home Health Referral. All further orders will be obtained through __JULIO Nolasco (Community Based Physician - PCP)
--- NOTE | 2020-11-18 12:28 | PT.INTREAT ---
Date of service: 11/18/20 Time of Service: 09:10 PT Notes Visit Reasons: DKA Inpatient Physical Therapy Treatment Note [facility] Date: 11/18/2020 PRECAUTIONS: Fall SUBJECTIVE: Elly is pleasant and agreeable to participating in PT this morning. OBJECTIVE: Patient cleared for independent transfers and ambulation within her room with FWW support. PAIN: No c/o pain BED MOBILITY/TRANSFERS Supine-sit: I Sit-supine: I Sit-stand: I Stand-sit: I Bed-Chair: I Chair-bed: I GAIT Assistive Device: No AD Weight bearing: Full Assist: SBA Distance: 200' Deviation: Stand rest x1, increased SOB THEREX: Patient was instructed in a standing LE strengthening program, as per flow sheet. ASSESSMENT: Patient continues to demonstrate SOB with gait training, although she was able to ambulate wth FWW support, requiring standing rest x1. She demonstrates independence with bed mobility and transfers at this time. PLAN: Continue with global strengthening and conditioning for improved activity tolerance. TREATMENT CODE/TIME: 15 minutes; 01159; 09:10-09:25
[2020-11-18] MEDS: Escitalopram 10 MG TAB PO (12:30)
--- NOTE | 2020-11-18 17:34 | PT.INDS ---
Date of service: 11/18/20 Time of Service: 17:34 PT Notes Visit Reasons: DKA Physical Therapy Inpatient Discharge Summary Date: 11/18/20 Date of service: 11/14/2020 through 11/18/2020 This is a clinical summary of care provided on the duration of dates listed above. No charge was made in the completion of this documentation. Referring Doctor:Randi Dyer PT Orders: PT CONSULT: Limited ability, evaulate and treat Precautions: Standard Patient Profile/Admitting Diagnosis: Orders received for this 70-year-old female with a history of independent living. Patient states for the last 3 weeks she has been having history of weakness, nausea, vomiting, diarrhea. Patient thought this was just a flu or cold that would get better over time continue to decline. Patient states she was then seen in the emergency department where she was told she was having episode of diabetic ketoacidosis. He was also having effects of acute on chronic COPD PMHX: Medical History Abdominal pain Acute gastroenteritis (03/16/18) Acute kidney injury (nontraumatic) Acute pneumonitis Anxiety (03/16/18) Asthma Asthma Back pain CHF (congestive heart failure) Chronic constipation (03/16/18) Cognitive impairment (03/16/18) Mild, w/Memory Loss Cubital tunnel syndrome (03/16/18) Depressive disorder DKA (diabetic ketoacidoses) Dyspnea (03/16/18) Edema (03/16/18) Essential hypertension (07/17/13) Gastroesophageal reflux disease without esophagitis (03/16/18) History of shingles (03/16/18) Hyperlipemia Insulin dependent diabetes mellitus Internal derangement of right knee Interstitial lung disease (03/16/18) Pulm: Jedlovsky Long-term use of high-risk medication (03/16/18) Metabolic acidosis with normal anion gap and bicarbonate losses Migraine (04/03/14) Neck pain (03/16/18) 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 History of section Ligation of fallopian tube Thoracoscopic (R)Lung Bx (02/12/18) Social History/Home Situation: Patient has a cane and walker at home but is independent in her ambulation at baseline. He has 3 steps in which to enter the home she lives with her granddaughter Subjective: NT. See most recent AIRCRAFT INSTRUMENT TESTER notes. Objective: NT. See most recent AIRCRAFT INSTRUMENT TESTER notes. Mental Status: NT. See most recent AIRCRAFT INSTRUMENT TESTER notes. Pain: NT. See most recent AIRCRAFT INSTRUMENT TESTER notes. ROM: Right Upper Extremity: Within functional limits Left Upper Extremity: Within functional limit Right Lower Extremity: Within functional limits Left Lower Extremity: Within functional limits Strength: Right Upper Extremity: Grossly 4+ out of 5 Left Upper Extremity: Grossly 4+ out of 5 Right Lower Extremity: Grossly 4+ out of 5 Left Lower Extremity: Grossly 4+ out of BED MOBILITY/TRANSFERS: Rolling independent Supine to sit independent Sit to supine independent Sit to stand independent Stand to sit independent Bed to chair independent Chair to bed independent Gait: Up to 200 feet of level surface ambulation without an assistive device requiring standby assist with increased S OB. With front wheel walker patient is able to ambulate up to 300 feet with supervision with minimal increase in shortness of breath. Balance: Static Sitting: NOrmal Dynamic Sitting: Normal Static Standing: Good Dynamic Standing: Fair ASSESSMENT: Elly demonstrates improvement in functional mobility level during this episode of care as evidenced by goal status below. She will continue to benefit from home health PT services in order to achieve highest functional level and increase ability to remain at home. Goals: Goals X1 week 1. Supine-Sit Independent MET 2. Sit-Supine Independent MET 3. Sit-Stand Independent MET 4. Stand-Sit Independent MET 5. Bed-Chair Independent MET 6. Gait Independent up to 100 feet NOT MET 7: Stairs 4 step with SBA NOT MET 8: Independent in Home program NOT MET DISCHARGE RECOMMENDATIONS: Patient will benefit from home health PT services in order to progress mobility level using least restrictive assistive ambulatory device, assess home safety, identify additional equipment needs, and establish a functional maintenance program that will increase ability of patient to remain at home. TREATMENT CODE/TIME: NM Thank you for the opportunity to participate in the care of this patient. Iva Roldan PT, DPT, CLT [facility] [place], [place]
--- NOTE | 2020-11-18 18:47 | PDOC.CMDIS ---
- If Service Date Differs Date of service: 11/18/20 Time of Service: 18:47 LACE Index Scoring Tool - Questions: Length of Stay (in days): 4 - 6 Acuity (Admit via E.D.?): Yes Comorbidities: Diabetes w/o Complication, Congestive Heart Failure, Chronic Pulmonary Disease, Any Tumor E.D. 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 She will also have an overnight O2 saturation study on 11/19/20. Elly will follow up with her PCP and plan of care. She will be evaluated for a CGM coordinated by [facility] supervisor malt house and PCP. Elly will transport with family. Patient/Family Education Needs: Diabetes self care and monitoring, discharge plan, limitations, Ask Me Three. Services Needed at Discharge: Home Health Care Services
== END 2020-11-18 12:48 | disposition home health service (06) | DRG 637 ==
LOC: ER 12:04 → ICU 12:22 → MS 11-14 17:54
PROVIDERS: Family Medicine; Internal Medicine; Nurse Practitioner Family; Admitting Provider Family Medicine; Emergency Provider Physician Assistant; PCP Nurse Practitioner Family; Visit Provider Family Medicine
DX: E11.10 Type 2 diabetes mellitus with ketoacidosis without coma (principal); J69.0 Pneumonitis due to inhalation of food and vomit; J96.11 Chronic respiratory failure with hypoxia; J44.1 Chronic obstructive pulmonary disease with (acute) exacerbation; I50.32 Chronic diastolic (congestive) heart failure; J84.10 Pulmonary fibrosis, unspecified; I27.20 Pulmonary hypertension, unspecified; I11.0 Hypertensive heart disease with heart failure; F41.9 Anxiety disorder, unspecified; K59.09 Other constipation; K21.9 Gastro-esophageal reflux disease without esophagitis; Z79.4 Long term (current) use of insulin; M81.0 Age-related osteoporosis without current pathological fracture; E11.42 Type 2 diabetes mellitus with diabetic polyneuropathy; E86.0 Dehydration; Z11.52 Encounter for screening for COVID-19; R11.2 Nausea with vomiting, unspecified; Z91.11 Patient's noncompliance with dietary regimen
CPT/HCPCS: 36410; 36415; 36416; 78265; 80048; 80053; 82805; 82947; 82962; 84145; 87040; 93005; 94618; 94640; 96361; 96365; 96375; 97110; 97162; 97530; 99223; 99232; 99233; 99239; 99291; U0003; 71045; 74022; 81003; 83735; 84100; 84484; 85025; 93010; J0610; J1644; J2543; J2930; J7512; J7620

== ENCOUNTER 2020-11-19 08:08 | Outpatient (CLI) | payer OTHER, MEDICAID, SELFPAY | END 2020-11-19 08:28 | PROVIDERS: PCP Nurse Practitioner Family; Visit Provider Nurse Practitioner Family | DX: J96.11 Chronic respiratory failure with hypoxia (principal) | CPT/HCPCS: 94762 ==

== ENCOUNTER 2020-12-04 17:50 | Inpatient (IN) | payer OTHER, MEDICAID, SELFPAY ==
[2020-12-04] VITALS (54 sets, daily range): BP systolic 104–141; BP diastolic 37–128; PULSE 69–124; RESP 9–25; TEMP 36–36.5; O2SAT 93–100
--- NOTE | 2020-12-04 17:45 | RT.EKG_ITS ---
APPROVED REPORT Exam: Resting ECG Patient Location: E HR:98 bpm ECG Measurements Heart Rate 98 AXIS ID 155 P 18 QRSd 109 QRS -20 QT 357 T 142 QTc 456 Conclusion Sinus rhythm. LVH with secondary repolarization abnormality
--- NOTE | 2020-12-04 17:59 | ED.GENADUL_ITS ---
Discharge Plan Disposition Patient Disposition: [facility] INPATIENT Condition: Stable Discharge Details Clinical Impression: Type II diabetes mellitus, uncontrolled, Syncope, Dehydration, SYD (acute kidney injury) Admit Date/Time: 12/04/20 21:31 Admit Provider: Víctor Nolasco Attending Provider: Víctor Nolasco Primary Care Provider: Dharmesh Nolasco ED Provider: Jaxson Sandoval Medical Decision Making <Trevin Dykes MD - Last Filed: 12/04/20 19:46> 70-year-old female presents from home via EMS. She reports 2 days of elevated blood glucose at home greater than 300 with associated nausea and 2 episodes of emesis. She states when rising from a seated position this afternoon she got lightheaded and felt weak, fell backwards on the ground and struck her head with out a loss of consciousness. EMS was called and patient transported to the ER. She arrives complaining of mild posterior headache and left rib pain. The patient's grandson reports that she has had difficulty administering her insulin since being discharged from the hospital for pneumonia. He reports that she has had little to no insulin over the past 10 days, assocaited with general malaise and weakness. Earlier in the day he had found her sugar to read high and administer to 24 units of NovoLog and 72 units of Tresiba. Broad differential diagnosis considered, given the patient's fall and hyperglycemia. She had IV access established, screening laboratories, EKG obtained and she is referred for CT imaging. Will sign the patient out to Dr Sandoval at change of shift. Please see his note regarding final impression and disposition. <Jaxson Sandoval MD - Last Filed: 12/05/20 01:37> pt's ct shows 2 rib fractures otherwise no acute findings. Labs show normal ph elevated glucose and anion gap of 17. Given her comorbidities, syd, and possible syncope feel observation is the safest disposition for her. Spoke with Dr. Nolasco who accepts for admission Medical Records Medical records reviewed: Yes I reviewed the patient's medical records. Imaging Data Radiologic Study: Attestation: I personally reviewed and interpreted this imaging study as follows: Radiologist's impression: IMPRESSION: 1. Nondisplaced fractures of the left 3rd and 4th ribs. 2. No intrathoracic injury. 3. Chronic pulmonary fibrosis. IMPRESSION: No gross evidence of abdominal visceral injury on this noncontrast study. Radiologic Study #2: Attestation: I personally reviewed and interpreted this imaging study as follows: Imaging: CT Scan Radiologist's impression: no acute findings on head/c spine ct Lab Data Lab results reviewed: Yes I reviewed the patient's lab results. ECG Data Attestation: I personally reviewed and interpreted this ECG (s) as follows: Prior ECG tracings: available for review Interpretation: sinus rhythm, rate of 84, pr 156, qtc 459, no acute st t wave ischemic changes HPI <Trevin Dykes MD - Last Filed: 12/04/20 19:46> General Mode of arrival: EMS . Date/Time Provider Initiated Documentation: 12/04/20 17:50 . Limitations to Documentation: no limitations . Information obtained by: patient and EMS . History of Present Illness 70 year old F presents to the emergency department with the chief complaint of Weakness, high sugar, near syncope, described as moderate, Quality is described as dull and constant, and is localized to the head. Patient reports no radiation. Patient started experiencing this hour(s) No relieving factors improve symptom(s), No exacerbating factors reported . Patient notes nausea/vomiting; denies chest pain, fever/chills and weakness. Patient did receive the following treatments prior to arrival, none Related Data Home Medications Medication Instructions Recorded Confirmed albuterol sulfate [Ventolin HFA] 2 puff INHALATION Q4H PRN #1 10/09/14 12/04/20 inhaler compress.stocking,knee,reg,lrg #2 each 10/29/18 09/04/20 Oxygen #1 each 11/29/18 09/04/20 ketoconazole 1 applic TOPICAL BID #30 gm 01/31/19 12/04/20 Wheeled walker with seat and basket #1 ea 02/07/19 09/04/20 vits A and D-white pet-lanolin 60 g TOPICAL PRN PRN #0 g 03/20/19 12/04/20 zinc oxide 60 g TOPICAL PRN PRN #0 g 03/20/19 12/04/20 Face mask to deliver Oxygen #2 each 04/23/19 09/04/20 benzonatate 100 mg capsule 100 mg PO BID-TID PRN #90 cap 06/06/19 12/04/20 nystatin 100,000 unit/gram topical 1 applic TP TID #60 gm 10/10/19 02/12/21 powder sucralfate 1 gram tablet 1 gm PO QACHS 11/11/19 12/04/20 clotrimazole 1 % topical cream 1 applic TOPICAL TID #113 gm 12/27/19 12/04/20 fluticasone furoate 200 1 inh IH DAILY PRN 02/14/20 12/04/20 mcg-vilanterol 25 mcg/dose inhalation powder simvastatin 40 mg tablet 40 mg PO HS #30 tab 03/09/20 12/04/20 spironolactone 25 mg tablet 25 mg PO DAILY #30 tab 03/09/20 12/04/20 empagliflozin 10 mg tablet 10 mg PO QAM #30 tab 03/10/20 12/04/20 pantoprazole 40 mg tablet,delayed 40 mg PO DAILY #90 tab 04/03/20 12/04/20 release epinephrine [EpiPen 2-Gordon] 0.3 mg IM ONCE PRN 06/12/20 12/04/20 Oxygen #1 each 06/25/20 09/04/20 magnesium oxide 400 mg (241.3 mg 400 mg PO DAILY #30 tab 06/25/20 12/04/20 magnesium) tablet cyclobenzaprine 5 mg tablet 5 mg PO TID PRN #90 tab 07/27/20 12/04/20 acidophilus 25 million 1 tab PO TID #90 tab 08/03/20 12/04/20 cell-pectin, citrus 100 mg tablet albuterol sulfate 2.5 mg INHALATION Q6H PRN #10 vial 08/03/20 12/04/20 furosemide 40 mg tablet 40 mg PO DAILY #30 tab 08/03/20 12/04/20 pen needle, diabetic 31 gauge x #4 box 08/03/20 09/04/2003/07 blood sugar diagnostic #400 strip 09/29/20 insulin lispro 100 unit/mL See Rx Instructions SC .per ss #15 09/29/20 12/04/20 subcutaneous pen ml lancets 28 gauge #400 ea 09/29/20 Januvia 25 mg PO QAM 11/12/20 12/04/20 Ofev 100 mg PO Q OTHER DAY #0 cap 11/18/20 12/04/20 blood-glucose meter,continuous #1 ea 11/20/20 11/20/20 blood-glucose transmitter #1 ea 11/20/20 11/20/20 donepezil 5 mg tablet 10 mg PO QPM tab 11/20/20 12/04/20 escitalopram oxalate 10 mg tablet 20 mg PO .NOON #30 tab-cap 11/20/20 12/04/20 loperamide 2 mg tablet 2 mg PO Q6H PRN #60 tab 11/20/20 12/04/20 promethazine 12.5 mg tablet 12.5 mg PO Q6H PRN #20 tab 11/20/20 12/04/20 insulin degludec [Tresiba 30 unit SUBCUT DAILY 12/04/20 12/04/20 FlexTouch U-200] Previous Rx's Medication Instructions Recorded compress.stocking,knee,reg,lrg #2 each 10/29/18 ketoconazole 1 applic TOPICAL BID #30 gm 01/31/19 Wheeled walker with seat and basket #1 ea 02/07/19 vits A and D-white pet-lanolin 60 g TOPICAL PRN PRN #0 g 03/20/19 zinc oxide 60 g TOPICAL PRN PRN #0 g 03/20/19 Face mask to deliver Oxygen #2 each 04/23/19 benzonatate 100 mg capsule 100 mg PO BID-TID PRN #90 cap 06/06/19 nystatin 100,000 unit/gram topical 1 applic TP TID #60 gm 08/01/19 powder clotrimazole 1 % topical cream 1 applic TOPICAL TID #113 gm 12/27/19 simvastatin 40 mg tablet 40 mg PO HS #30 tab 03/09/20 spironolactone 25 mg tablet 25 mg PO DAILY #30 tab 03/09/20 empagliflozin 10 mg tablet 10 mg PO QAM #30 tab 03/10/20 pantoprazole 40 mg tablet,delayed 40 mg PO DAILY #90 tab 04/03/20 release magnesium oxide 400 mg (241.3 mg 400 mg PO DAILY #30 tab 06/25/20 magnesium) tablet cyclobenzaprine 5 mg tablet 5 mg PO TID PRN #90 tab 07/27/20 acidophilus 25 million 1 tab PO TID #90 tab 08/03/20 cell-pectin, citrus 100 mg tablet albuterol sulfate 2.5 mg INHALATION Q6H PRN #10 vial 08/03/20 furosemide 40 mg tablet 40 mg PO DAILY #30 tab 08/03/20 pen needle, diabetic 31 gauge x #4 box 08/03/2003/07 blood sugar diagnostic #400 strip 09/29/20 insulin lispro 100 unit/mL See Rx Instructions SC .per ss #15 09/29/20 subcutaneous pen ml lancets 28 gauge #400 ea 09/29/20 Ofev 100 mg PO Q OTHER DAY #0 cap 11/18/20 blood-glucose meter,continuous #1 ea 11/20/20 blood-glucose transmitter #1 ea 11/20/20 escitalopram oxalate 10 mg tablet 20 mg PO .NOON #30 tab-cap 11/20/20 loperamide 2 mg tablet 2 mg PO Q6H PRN #60 tab 11/20/20 promethazine 12.5 mg tablet 12.5 mg PO Q6H PRN #20 tab 11/20/20 Allergies Allergy/AdvReac Type Severity Reaction Status Date / Time aspirin Allergy Unknown HIVES, Verified 12/04/20 18:23 flip out diclofenac Allergy Unknown RASH Verified 12/04/20 18:23 latex Allergy Unknown SKIN Verified 12/04/20 18:23 BREAKDOWN NSAIDS (Non-Steroidal Allergy Unknown HIVES, Verified 12/04/20 18:23 Anti-Inflamma VOMITING morphine AdvReac Unknown VOMITING Verified 12/04/20 18:23 General ALVIN: 3 Review of Systems <Trevin Dykes MD - Last Filed: 12/04/20 19:46> Narrative: Glucose greater than 300 at home, denies chest pain or palpitations. No syncope. Mild posterior headache. Mild left rib pain. No back pain, no hip or lower extremity pain. 8 systems reviewed and otherwise negative PFSH <Trevin Dykes MD - Last Filed: 12/04/20 19:46> Medical History Abdominal pain Acute gastroenteritis (03/16/18) Acute kidney injury (nontraumatic) Acute pneumonitis Anxiety (03/16/18) Asthma Asthma Back pain CHF (congestive heart failure) Chronic constipation (03/16/18) Cognitive impairment (03/16/18) Mild, w/Memory Loss Cubital tunnel syndrome (03/16/18) Depressive disorder DKA (diabetic ketoacidoses) Dyspnea (03/16/18) Edema (03/16/18) Essential hypertension (07/17/13) Gastroesophageal reflux disease without esophagitis (03/16/18) History of shingles (03/16/18) Hyperlipemia Insulin dependent diabetes mellitus Internal derangement of right knee Interstitial lung disease (03/16/18) Pulm: Trevondlovsky Long-term use of high-risk medication (03/16/18) Metabolic acidosis with normal anion gap and bicarbonate losses Migraine (04/03/14) Neck pain (03/16/18) 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 History of section Ligation of fallopian tube Thoracoscopic (R)Lung Bx (02/12/18) Family History Mother , aged 81 from dementia, per Elly Diabetes Essential hypertension CHF (congestive heart failure) Heart disease CHF/heart failure Dementia Father , aged 80 Diabetes Essential hypertension CAD (coronary artery disease) Heart disease MS Hyperlipidemia Stroke Sister , aged 54 Diabetes Personal history of malignant neoplasm Lung Asthma Lung cancer Brother , of mesithelioma aged 62 Diabetes Essential hypertension Personal history of malignant neoplasm Lung, Prostate Hyperlipidemia Asthma Mesothelioma Brother , of PE following knee surgery age 69 Pulmonary embolus with infarction Daughter No problems noted. Son No problems noted. Social History Smoking/Tobacco Use Status: Never Smoking risk assessment performed?: Yes Alcohol Intake: never Details: monthly or less Drug use: Never Substance use type: does not use Adopted: No Caregiver/Support person: Yes Foster care: No Household members: none Housing: apartment Number of Children: 2 number of grandchildren: 5 Communication Needs: Hard of Hearing and Corrective Lenses Education Level: middle school Do you need help understanding health information?: Always current occupation: disabled Pets and animals: Yes Pets and animals: cat(s) Sexually active: No Do you think of yourself as: straight/heterosexual Current gender identity: female What is your relationship status?: How often do you talk on the phone with friends or family?: three or more times per week How often do you get together with friends or relatives?: three or more times per week How often do you attend zoroastrianism or presybeterian services?: 1-3 times per year Do you belong to any clubs or organized social groups?: no Panel score (0-1 are the most socially isolated patients): 1 What type of physical activity do you participate in: none and sedentary life style Duration: < 15 minutes/day Frequency: 1-2 times per week Bibi/Latter-Day: Tenriism Special bibi needs: No Agree to transfusion: Yes Seatbelt use: sometimes Helmet use: No Drive intox or ride w/intox tow motor driver: No Water heater temp set <120 deg: Yes Working smoke detector in home: Yes Fire extinguisher in home: Yes Carbon monox detector in home: Yes Do you feel safe at home: Yes Do you feel safe in your relationship?: Yes Victim of physical abuse: No Victim of emotional abuse: No Victim of sexual abuse: No Would you like helpful sources: No Additional Social history: Lives in her own apartment in the [facility] [place] the hospital. Grandhien Kang used to live with her. His phone # is [phone]. Daughter Caridad lives in [place]. Son Himanshu lives in [facility], not as close to him. Gets together with brother Brian regularly who takes her shopping and goes for drives. [place] visit her home frequently. Exam <Trevin Dykes MD - Last Filed: 12/04/20 19:46> Narrative Exam Narrative: GEN: awake, alert, oriented 3. Pleasant, well groomed, interactive. HEAD: Normocephalic, atraumatic ENT: Mucous membranes moist, oropharynx unremarkable, External ear exam unremarkable EYES: PERRL, EOMI NECK: No posterior step-off or deformity CHEST/RESP: Left lower rib tenderness, clear to auscultation bilateral, no wheeze/rhonchi/rales CARDIOVASCULAR: RRR, no murmur, rub charisse. 2+ Rad pulse bilateral ABDOMEN: Soft, nontender, no mass. +Bowel sounds EXT: Full ROM, no edema, no rash Neuro: Grossly normal neurologic exam, conversant, interactive. Psych: Speech fluent, thoughts congruent, affect normal Sign Out <Trevin Dykes MD - Last Filed: 12/04/20 19:46> Sign Out Data: Sign Out Comment: followup CT images, labs Last updated by Trevin Dykes MD at 12/04/20 19:31
[2020-12-04 18:26] LABS: Abs Immature Grans 0.06 10^3/uL (0.0-0.06); Absolute Basophil Count 0.07 10^3/uL (0.0-0.2); Absolute Lymphocyte Count 2.12 10^3/uL (1.2-3.4); Absolute Monocyte Count 0.62 10^3/uL (0.1-0.8); Absolute Neutrophil Count 7.63 10^3/uL (1.2-6.7); Basophils % 0.7; Eosinophils % 1.9; HCT 49.7 % (36.0-46.0); HGB 17.2 g/dL (11.2-15.7); Immature Grans % 0.6; Lymphocytes % 19.8; MCH 30.2 pg (27.0-33.0); MCHC 34.6 % (32.0-36.0); MCV 87.2 fL (80-95); MPV 10.6 fL (8.0-11.0); Monocytes % 5.8; Neutrophils % 71.2; Nucleated RBC 0 %; Platelet Count 334 10^3/uL (130-400); RDW 13.5 % (11.7-14.6)
[2020-12-04] MEDS: Ondansetron 4 MG/2 ML VIAL IVP ×2 (18:35→21:05)
[2020-12-04 18:47] LABS: ALT 17 U/L (14-59); AST 9 U/L (15-37); Albumin 4.1 g/dL (3.4-5.0); Alkaline Phosphatase 122 U/L (46-116); Anion Gap 17.7 mmol/L (3-11); BUN 30 mg/dL (7-18); Bilirubin, Total 0.9 mg/dL (0.2-1.0); CO2 22.3 mmol/L (21.0-32.0); CREATININE 1.9 mg/dL (0.55-1.02); Calcium 10.2 mg/dL (8.5-10.1); Chloride 93 mmol/L (98-107); Estimated GFR 26.21 (mL/min/1.73m2); Glucose 295 mg/dL (74-106); Magnesium 2.4 mg/dL (1.8-2.4); Potassium 3.3 mmol/L (3.5-5.1); Sodium 133 mmol/L (136-145); Total Protein 8.7 g/dL (6.4-8.2)
[2020-12-04] MEDS: Normal Saline 1,000 ML 150 ML IV (18:50)
[2020-12-04 19:16] LABS: Troponin I < 0.05 ng/mL (<0.06)
--- NOTE | 2020-12-04 19:47 | DI.CT_ITS ---
EXAM: CT HEAD CERVICAL SPINE WO CLINICAL HISTORY: Fall, posterior pain. TECHNIQUE: Imaging Protocol: Axial computed tomography images with coronal and sagittal reformatted images were created and reviewed COMPARISON: No exams were available for comparison FINDINGS: BRAIN: Mild soft tissue swelling is seen over the right side of the forehead. There are no skull fractures nor fluid in the visualized paranasal sinuses. There is no evidence of intracranial hemorrhage, mass effect, or shift of midline structures. There are no extra-axial fluid collections. The ventricles are not enlarged or shifted and there is no blo od within the ventricular system nor within the basal cisterns. CERVICAL SPINE: Multilevel degenerative facet changes also degenerative disc disease evident in the lower cervical sp ine. There is no evidence of fracture nor listhesis. No significant prevertebral soft tissue swelling. N o facet malalignment evident. No significant osseous lesions evident. IMPRESSION: No acute intracranial findings on this noninfused CT scan of the brain. No evidence of cervical spine fracture, malalignment, nor acute compromise of the cervical spinal can al. RADIATION DOSE DELIVERED: 1,511.01mGy.cm Total DLP DATA REPOSITORY: All CT scans at this facility are submitted to the National Radiology Data Registry (NRDR) Dose Index Registry (DIR) with the [employer] (ACR). RADIATION OPTIMIZATION: All CT scans at this facility use at least one of these dose optimization te chniques: automated exposure control; mA and/or kV adjustment per patient size (includes targeted exa ms where dose is matched to clinical indication); or iterative reconstruction.
--- NOTE | 2020-12-04 19:59 | DI.CT_ITS ---
EXAM: CT CHEST/ABD/PEL WO CLINICAL HISTORY: Fall, L ant chest pain. TECHNIQUE: Imaging Protocol: Axial computed tomography images with coronal and sagittal reformatted images were created and reviewed CONTRAST MATERIAL: Intravenous: Omnipaque 350 Contrast volume:100 ml Oral: None COMPARISON: CT CT ABDOMEN PELVIS WO from 09/23/2020 FINDINGS: CHEST: Vascular: There is some air seen within the main pulmonary artery on this noninfused study there is n o adjacent mediastinal hematoma. No sternal fracture evident. No pericardial effusion LUNGS: Chronic interstitial disease in both lung aguilar consistent with pulmonary fibrosis. Few tiny calcified granulomas are noted in the right lung. No pneumothorax. No pleural effusions.. MEDIASTINUM: There is no hilar nor mediastinal adenopathy. Partially visualized thyroid unremarkable. Air seen with in main pulmonary artery outflow tract. CARDIAC: Heart size is normal. There is no pericardial effusion.Caliber of the thoracic aorta is wit hin normal limits. OSSEOUS: No fractures identifiedno significant osseous lesions. ABDOMEN: There is no ascites. Moderate size retrocardiac hiatal hernia LIVER: There are no focal hepatic lesions nor dilatation of intrahepatic ducts. GALLBLADDER/BILIARY: Either contracted or surgically absent. No surgical clips. CBD is not dilated. PANCREAS: Pancreas is atrophic, particularly at the head level. No pancreatic masses. SPLEEN: Spleen is not enlarged. There are no intrasplenic lesions. Splenic and portal veins are ibarra nt. ADRENALS: There are no significant adrenal masses. KIDNEYS: No calculi nor hydronephrosis. No solid renal masses. No cysts evident. ABDOMINAL AORTA: Abdominal aorta is not enlarged and there is no myhikcghhitvmbm-[id number] adenopat hy. ABDOMINAL WALL/GI: No evidence of significant anterior abdominal wall hernia. No bowel obstruction. PELVIS: LYMPH NODES: There is no intrapelvic nor inguinal adenopathy. GI: No evidence of appendicitis.No evidence of sigmoid diverticulitis. URINARY BLADDER: No calculi nor masses evident REPRODUCTIVE: Age-appropriate. No adnexal masses. OSSEOUS: Mild compression fracture at superior endplate of L1 is unchanged from prior CT scan 2019. IMPRESSION: 1. There is air-gas is in the main pulmonary artery outflow tract common not associated with mediasti nal hematoma nor obvious fractures. This was a noninfused study and therefore this air was not intro duced by intravenous injection. May be trauma related but there is no other evidence to suggest sign ificant trauma. No fractures identified. No mediastinal hematoma. Close follow-up recommended. 2. Pulmonary fibrosis. No pneumothorax. No pleural effusions. 3. Moderate size hiatal hernia again noted. 4. No ascites. No free fluid in the abdomen and pelvis. RADIATION DOSE DELIVERED: 1,485.85mGy.cm Total DLP DATA REPOSITORY: All CT scans at this facility are submitted to the National Radiology Data Registry (NRDR) Dose Index Registry (DIR) with the [employer] (ACR). RADIATION OPTIMIZATION: All CT scans at this facility use at least one of these dose optimization te chniques: automated exposure control; mA and/or kV adjustment per patient size (includes targeted exa ms where dose is matched to clinical indication); or iterative reconstruction.
--- NOTE | 2020-12-04 20:12 | DI.VRAD_ITS ---
PROCEDURE INFORMATION: Exam: CT Head Without Contrast Exam date and time: 12/04/2020 7:48 PM Age: 70 years old Clinical indication: Injury or trauma; Blunt trauma (contusions or hematomas); Consciousness not specified; Injury date: 12/04/20; Injury details: Fall in home, posterior head and neck pain TECHNIQUE: Imaging protocol: Computed tomography of the head without contrast. Radiation optimization: All CT scans at this facility use at least one of these dose optimization techniques: automated exposure control; mA and/or kV adjustment per patient size (includes targeted exams where dose is matched to clinical indication); or iterative reconstruction. COMPARISON: No relevant prior studies available. FINDINGS: Brain: No acute intracranial hemorrhage.. There is mild diffuse heterogeneity of the white matter attenuation, consistent with chronic white matter ischemic changes. Mild cerebral atrophy Cerebral ventricles: No ventriculomegaly. Bones/joints: Unremarkable. No acute fracture. Paranasal sinuses: Visualized sinuses are unremarkable. No fluid levels. Mastoid air cells: Visualized mastoid air cells are well aerated. Soft tissues: Unremarkable. IMPRESSION: No acute intracranial hemorrhage.. PROCEDURE INFORMATION: Exam: CT Cervical Spine Without Contrast Exam date and time: 12/04/2020 7:48 PM Age: 70 years old Clinical indication: Injury or trauma; Blunt trauma (contusions or hematomas); Consciousness not specified; Injury date: 12/04/20; Injury details: Fall in home, posterior head and neck pain TECHNIQUE: Imaging protocol: Computed tomography images of the cervical spine without contrast. Radiation optimization: All CT scans at this facility use at least one of these dose optimization techniques: automated exposure control; mA and/or kV adjustment per patient size (includes targeted exams where dose is matched to clinical indication); or iterative reconstruction. COMPARISON: No relevant prior studies available. FINDINGS: Bones/joints: No acute fracture of the cervical spine. No subluxation or dislocation of the cervical spine. Anterior osteophyte formation C4 through C7 Degenerative changes in the facets at multiple levels Discs/Spinal canal/Neural foramina: Intervertebral disc space narrowing C6/C7 may represent degenerative disc disease.. Posterior osteophyte formation C4 through C7 Degenerative changes at C1/C2 Thyroid: The thyroid is unremarkable Lungs: Lung apices are normal. Soft tissues: Unremarkable. IMPRESSION: 1. No acute fracture of the cervical spine. 2. No subluxation or dislocation of the cervical spine. 3. Intervertebral disc space narrowing C6/C7 may represent degenerative disc disease.. Dictated and Authenticated by: Linsey Murphy MD. Ordering:EVONNE Zhong MD
[2020-12-04] MEDS: HYDROmorphone 2 MG/ML VIAL 0.5 MG IVP (20:15)
[2020-12-04 20:22] LABS: BE (Venous) 3 mmol/L (-2-3); HCO3 (Venous) 28 mmol/L (23-28); O2 Sat (Venous) 48 %; TCO2 (Venous) 25 mmol/L (24-29); pCO2 (Venous) 49 mmHg (41-51); pH (Venous) 7.37 (7.31-7.41); pO2 (Venous) 27 mmHg
--- NOTE | 2020-12-04 20:37 | DI.VRAD_ITS ---
PROCEDURE INFORMATION: Exam: CT Chest Without Contrast; Diagnostic Exam date and time: 12/04/2020 7:27 PM Age: 70 years old Clinical indication: Injury or trauma; Generalized; Blunt trauma (contusions or hematomas); Injury date: 12/04/20; Injury details: Fall, left prabhu and rib pain TECHNIQUE: Imaging protocol: Diagnostic computed tomography of the chest without contrast. Total images: 1915 Radiation optimization: All CT scans at this facility use at least one of these dose optimization techniques: automated exposure control; mA and/or kV adjustment per patient size (includes targeted exams where dose is matched to clinical indication); or iterative reconstruction. COMPARISON: CT CHEST WO 09/03/2020 12:45 PM FINDINGS: Bronchial tree: No endobronchial lesion. Lungs: There are bilateral multilobar stable peripheral regions of reticulation. There is no consolidation or airspace disease. Lung nodules: There is a 2 mm calcified granuloma at the right lung base. Pleural spaces: No pneumothorax. No pleural effusion. Heart: There is no pericardial effusion. Mediastinal space: No hemomediastinum. There is a mild to moderate-sized hiatal hernia. Aorta: There is mild atherosclerotic change in a nonaneurysmal aorta. Lymph nodes: There is no mediastinal, hilar or axillary adenopathy. Intraperitoneal space: Visualized upper abdomen is unremarkable. Bones/joints: There are nondisplaced fractures of the lateral aspect of the left 3rd and 4th ribs. Soft tissues: Extrathoracic soft tissues are unremarkable. IMPRESSION: 1. Nondisplaced fractures of the left 3rd and 4th ribs. 2. No intrathoracic injury. 3. Chronic pulmonary fibrosis. PROCEDURE INFORMATION: Exam: CT Abdomen And Pelvis Without Contrast Exam date and time: 12/04/2020 7:27 PM Age: 70 years old Clinical indication: Injury or trauma; Generalized; Blunt trauma (contusions or hematomas); Injury date: 12/04/20; Injury details: Fall, left prabhu and rib pain TECHNIQUE: Imaging protocol: Computed tomography of the abdomen and pelvis without contrast. Radiation optimization: All CT scans at this facility use at least one of these dose optimization techniques: automated exposure control; mA and/or kV adjustment per patient size (includes targeted exams where dose is matched to clinical indication); or iterative reconstruction. COMPARISON: CT CHEST WO 09/03/2020 12:45 PM FINDINGS: Lungs: Lung bases are unremarkable except for a tiny right-sided subpleural calcified granuloma. Liver: No gross laceration. Gallbladder and bile ducts: Not visualized, possibly removed. Pancreas: Significant pancreatic atrophy. Spleen: No gross splenic laceration. Adrenal glands: No adrenal hematoma Kidneys and ureters: No perinephric collection or stranding. Stomach and bowel: Stomach is grossly unremarkable. No small or large bowel dilatation. No definite bowel wall thickening. Appendix: No inflammation at the expected level of the appendix. Intraperitoneal space: No free air or free fluid. Vasculature: Atherosclerotic change without aortic aneurysm. . Lymph nodes: No significant adenopathy. Urinary bladder: No bladder stone. No definite bladder wall thickening. Reproductive: Unremarkable as visualized. Bones/joints: There is a chronic appearing superior endplate compression fracture of L1 . There is spondylosis in the mid to lower thoracic spine. There is facet arthropathy at L5-S1. Soft tissues: There is a 9 mm soft tissue nodule in the subcutaneous tissues of the left mid abdominal wall anteriorly which is nonspecific but may represent small injection.. IMPRESSION: No gross evidence of abdominal visceral injury on this noncontrast study. Dictated and Authenticated by: Trevin Da Silva MD. Ordering:EVONNE Zhong MD
[2020-12-04] MEDS: Normal Saline 1,000 ML 1000 ML IV (21:00)
--- NOTE | 2020-12-04 21:00 | RT.EKG_ITS ---
APPROVED REPORT Exam: Resting ECG Patient Location: E HR:84 bpm ECG Measurements Heart Rate 84 AXIS NJ 156 P 10 QRSd 106 QRS -23 QT 388 T 131 QTc 459 Conclusion Sinus rhythm...normal P axis, V-rate 60- 99 LVH with secondary repolarization abnormality...multi-LVH criteria, abnrm ST-T
--- NOTE | 2020-12-04 21:14 | W.PM.HP.N ---
Date of service: 12/04/20 Time of Service: 21:14 Assessment and Plan Assessment and plan (1) Dehydration: Status: Acute Assessment and plan: Dehydration secondary to nausea; this in turn is non-specific. It is possible she may be brewing a DKA like picture, but at present she is at most mildly acidotic (possibly mixed with metabolic alkalosis from vomiting). Perhaps she has some simple gastroenteritis? In any case will hydrate, and track HCO3 and anion gap, and check urine for ketones. If progresses will add insulin per DKA protocol. In meantime will give IVF and prn antiemetics. Rib fractures: prn analgesics, IS. History of Present Illness History of Present Illness Chief Complaint: nausea Narrative: 70 female with h/o DM, is variably described as type 1 or 2, and recent admission for DKA past mon. Apparently having some trouble taking her insulin as prescribed, or not at all. In any case presents tonight reporting 2 weeks of nausea and vomiting (to me adds diarrhea then adds further that this has resolved). Today became lightheaded and fell, striking left side. In ER findings of noted for azotemia, hyperglycemia (295), HCO3 22, pH 7.37 -- and fxx of rib 3 and 4 on left. Has received Dilaudid 0.5, Zofran 4 (x2) and IVF. Is admitted for further management. Review of Systems All systems reviewed & are unremarkable except as noted in HPI and below PFSH Medical History Abdominal pain Acute gastroenteritis (03/16/18) Acute kidney injury (nontraumatic) Acute pneumonitis Anxiety (03/16/18) Asthma Asthma Back pain CHF (congestive heart failure) Chronic constipation (03/16/18) Cognitive impairment (03/16/18) Mild, w/Memory Loss Cubital tunnel syndrome (03/16/18) Depressive disorder DKA (diabetic ketoacidoses) Dyspnea (03/16/18) Edema (03/16/18) Essential hypertension (07/17/13) Gastroesophageal reflux disease without esophagitis (03/16/18) History of shingles (03/16/18) Hyperlipemia Insulin dependent diabetes mellitus Internal derangement of right knee Interstitial lung disease (03/16/18) Pulm: [place] Long-term use of high-risk medication (03/16/18) Metabolic acidosis with normal anion gap and bicarbonate losses Migraine (04/03/14) Neck pain (03/16/18) 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 History of section Ligation of fallopian tube Thoracoscopic (R)Lung Bx (02/12/18) Family History Mother , aged 81 from dementia, polina [place] Diabetes Essential hypertension CHF (congestive heart failure) Heart disease CHF/heart failure Dementia Father , aged 80 Diabetes Essential hypertension CAD (coronary artery disease) Heart disease [place] Hyperlipidemia Stroke Sister , aged 54 Diabetes Personal history of malignant neoplasm Lung Asthma Lung cancer Brother , of mesithelioma aged 62 Diabetes Essential hypertension Personal history of malignant neoplasm Lung, Prostate Hyperlipidemia Asthma Mesothelioma Brother , of PE following knee surgery age 69 Pulmonary embolus with infarction Daughter No problems noted. Son No problems noted. Social History Smoking/Tobacco Use Status: Never Smoking risk assessment performed?: Yes Alcohol Intake: never Details: monthly or less Drug use: Never Substance use type: does not use Adopted: No Caregiver/Support person: Yes Foster care: No Household members: none Housing: apartment Number of Children: 2 number of grandchildren: 5 Communication Needs: Hard of Hearing and Corrective Lenses Education Level: middle school Do you need help understanding health information?: Always current occupation: disabled Pets and animals: Yes Pets and animals: cat(s) Sexually active: No Do you think of yourself as: straight/heterosexual Current gender identity: female What is your relationship status?: How often do you talk on the phone with friends or family?: three or more times per week How often do you get together with friends or relatives?: three or more times per week How often do you attend rastafarian or jain services?: 1-3 times per year Do you belong to any clubs or organized social groups?: no Panel score (0-1 are the most socially isolated patients): 1 What type of physical activity do you participate in: none and sedentary lifestyle Duration: < 15 minutes/day Frequency: 1-2 times per week Bibi/Christianity: Alevism Special bibi needs: No Agree to transfusion: Yes Seatbelt use: sometimes Helmet use: No Drive intox or ride w/intox petroleum transport driver: No Water heater temp set <120 deg: Yes Working smoke detector in home: Yes Fire extinguisher in home: Yes Carbon monox detector in home: Yes Do you feel safe at home: Yes Do you feel safe in your relationship?: Yes Victim of physical abuse: No Victim of emotional abuse: No Victim of sexual abuse: No Would you like helpful sources: No Additional Social history: Lives in her own apartment in the [facility] near the hospital. Leodan Kang used to live with her. His phone # is [phone]. Daughter Caridad lives in [place]. Son Himanshu lives in [facility], not as close to him. Gets together with brother Brian regularly who takes her shopping and goes for drives. [place] visit her home frequently. Meds Home Medications and Allergies Home Medications Medication Instructions Recorded Confirmed Type albuterol sulfate [Ventolin HFA] 2 puff INHALATION Q4H PRN #1 10/09/14 12/04/20 History inhaler compress.stocking,knee,reg,lrg #2 each 10/29/18 09/04/20 Rx Oxygen #1 each 11/29/18 09/04/20 History ketoconazole 1 applic TOPICAL BID #30 gm 01/31/19 12/04/20 Rx Wheeled walker with seat and basket #1 ea 02/07/19 09/04/20 Rx vits A and D-white pet-lanolin 60 g TOPICAL PRN PRN #0 g 03/20/19 12/04/20 Rx zinc oxide 60 g TOPICAL PRN PRN #0 g 03/20/19 12/04/20 Rx Face mask to deliver Oxygen #2 each 04/23/19 09/04/20 Rx benzonatate 100 mg capsule 100 mg PO BID-TID PRN #90 cap 06/06/19 12/04/20 Rx nystatin 100,000 unit/gram topical 1 applic TP TID #60 gm 08/01/19 12/04/20 Rx powder sucralfate 1 gram tablet 1 gm PO QACHS 11/11/19 12/04/20 History clotrimazole 1 % topical cream 1 applic TOPICAL TID #113 gm 12/27/19 12/04/20 Rx fluticasone furoate 200 1 inh IH DAILY PRN 02/14/20 12/04/20 History mcg-vilanterol 25 mcg/dose inhalation powder simvastatin 40 mg tablet 40 mg PO HS #30 tab 03/09/20 12/04/20 Rx spironolactone 25 mg tablet 25 mg PO DAILY #30 tab 03/09/20 12/04/20 Rx empagliflozin 10 mg tablet 10 mg PO QAM #30 tab 03/10/20 12/04/20 Rx pantoprazole 40 mg tablet,delayed 40 mg PO DAILY #90 tab 04/03/20 12/04/20 Rx release epinephrine [EpiPen 2-Gordon] 0.3 mg IM ONCE PRN 06/12/20 12/04/20 History Oxygen #1 each 06/25/20 09/04/20 History magnesium oxide 400 mg (241.3 mg 400 mg PO DAILY #30 tab 06/25/20 12/04/20 Rx magnesium) tablet cyclobenzaprine 5 mg tablet 5 mg PO TID PRN #90 tab 07/27/20 12/04/20 Rx acidophilus 25 million 1 tab PO TID #90 tab 08/03/20 12/04/20 Rx cell-pectin, citrus 100 mg tablet albuterol sulfate 2.5 mg INHALATION Q6H PRN #10 vial 08/03/20 12/04/20 Rx furosemide 40 mg tablet 40 mg PO DAILY #30 tab 08/03/20 12/04/20 Rx pen needle, diabetic 31 gauge x #4 box 08/03/20 09/04/20 Rx 03/07 blood sugar diagnostic #400 strip 09/29/20 Rx insulin lispro 100 unit/mL See Rx Instructions SC .per ss #15 09/29/20 12/04/20 Rx subcutaneous pen ml lancets 28 gauge #400 ea 09/29/20 Rx Januvia 25 mg PO QAM 11/12/20 12/04/20 History Ofev 100 mg PO Q OTHER DAY #0 cap 11/18/20 12/04/20 Rx blood-glucose meter,continuous #1 ea 11/20/20 11/20/20 Rx blood-glucose transmitter #1 ea 11/20/20 11/20/20 Rx donepezil 5 mg tablet 10 mg PO QPM tab 11/20/20 12/04/20 History escitalopram oxalate 10 mg tablet 20 mg PO .NOON #30 tab-cap 11/20/20 12/04/20 Rx loperamide 2 mg tablet 2 mg PO Q6H PRN #60 tab 11/20/20 12/04/20 Rx promethazine 12.5 mg tablet 12.5 mg PO Q6H PRN #20 tab 11/20/20 12/04/20 Rx insulin degludec [Tresiba 30 unit SUBCUT DAILY 12/04/20 12/04/20 History FlexTouch U-200] Allergies Allergy/AdvReac Type Severity Reaction Status Date / Time aspirin Allergy Unknown HIVES, Verified 12/04/20 18:23 flip out diclofenac Allergy Unknown RASH Verified 12/04/20 18:23 latex Allergy Unknown SKIN Verified 12/04/20 18:23 BREAKDOWN NSAIDS (Non-Steroidal Allergy Unknown HIVES, Verified 12/04/20 18:23 Anti-Inflamma VOMITING morphine AdvReac Unknown VOMITING Verified 12/04/20 18:23 Exam Narrative Exam Narrative: 128/75, 99, 36.5, 12, 95% RA. HEENT atraumatic; neck supple; lungs diminished but clear; heart RRR; chest tender laterally on left; abdomen soft and NT; extremities trace pedal edema; neuro Ox3, nonfocal Results Labs Result diagrams: 12/04/20 18:20 12/04/20 18:20 Labs: Laboratory Results - last 24 hr 12/04/20 12/04/20 12/04/20 18:20 18:20 20:20 WBC 10.70 RBC 5.70 H Hgb 17.2 H Hct 49.7 H MCV 87.2 MCH 30.2 MCHC 34.6 RDW 13.5 Plt Count 334 D MPV 10.6 Immature Gran % 0.6 Neutrophils % 71.2 Lymphocytes % 19.8 Monocytes % 5.8 Eosinophils % 1.9 Basophils % 0.7 Nucleated RBC % 0 Absolute Neutrophils 7.63 H Absolute Lymphocytes 2.12 Absolute Monocytes 0.62 Absolute Eosinophils 0.20 Absolute Basophils 0.07 VBG pH 7.37 VBG pCO2 49 VBG pO2 27 VBG HCO3 28 VBG Total CO2 25 VBG O2 Saturation 48 VBG Base Excess 3 Sodium 133 L Potassium 3.3 L Chloride 93 L Carbon Dioxide 22.3 Anion Gap 17.7 H BUN 30 H Creatinine 1.9 H Estimated GFR/1.73 m2 26.21 Glucose 295 H Calcium 10.2 H Magnesium 2.4 Total Bilirubin 0.9 AST 9 L ALT 17 Alkaline Phosphatase 122 H Troponin I < 0.05 Total Protein 8.7 H Albumin 4.1 Last Vital Signs Temp 36.5 C 12/04/20 17:55 Pulse 99 H 12/04/20 19:01 Resp 12 12/04/20 19:01 BP 128/75 12/04/20 19:01 Pulse Ox 95 12/04/20 19:01 COVID-19 Screening Have you, or household traveled for leisure in last 14 days?: No Had IN PERSON contact w/suspected or confirmed C-19 person: No
[2020-12-04 21:26] LABS: Troponin I < 0.05 ng/mL (<0.06)
[2020-12-04 21:56] LABS: Chloride 96 mmol/L (98-107); Potassium 3.3 mmol/L (3.5-5.1); Sodium 136 mmol/L (136-145)
[2020-12-04 23:18] LABS: Anion Gap 14.5 mmol/L (3-11); CO2 23.5 mmol/L (21.0-32.0); Chloride 101 mmol/L (98-107); Potassium 3.9 mmol/L (3.5-5.1); Sodium 139 mmol/L (136-145)
[2020-12-04] MEDS: POTASSIUM CHLORIDE/0.9% NACL 1,000 ML 150 MEQ IV (23:47)
--- NOTE | 2020-12-05 | DI.RAD_ITS ---
EXAM: XR SHOULDER LT COMPLETE 2+V CLINICAL HISTORY: Left shoulder pain status post fall. TECHNIQUE: 2D digital imaging was performed. COMPARISON: CR RIGHT SHOULDER COMPLETE from 02/18/2010 CR,XR XR PORTABLE CHEST AP from 11/15/2020 CR,XR XR PORTABLE CHEST AP from 11/15/2020 FINDINGS: There is widening of the AC joint which is from prior resection the distal clavicle and is unchanged from chest x-ray 11/15/2020. There is no evidence of acute clavicle nor acromial fracture. Densitie s are projected over the head of the left humerus which are possibly loose bodies, given that there p osition has changed from the chest x-ray of 11/15/2020. IMPRESSION: Prior resection distal clavicle. Slight offset of the AC joint noted on the scapular Y-view. Calcif ications which are either intra-articular bodies, previously subacromial position on chest x-ray 10/24. DATA REPOSITORY: RADIATION DOSE DELIVERED:
[2020-12-05] MEDS: POTASSIUM CHLORIDE/0.9% NACL 1,000 ML 150 MEQ IV (06:07)
[2020-12-05 07:27] LABS: Anion Gap 10.3 mmol/L (3-11); BUN 25 mg/dL (7-18); CO2 25.7 mmol/L (21.0-32.0); CREATININE 1.2 mg/dL (0.55-1.02); Calcium 8.5 mg/dL (8.5-10.1); Chloride 106 mmol/L (98-107); Estimated GFR 44.54 (mL/min/1.73m2); Glucose 134 mg/dL (74-106); Potassium 4.1 mmol/L (3.5-5.1); Sodium 142 mmol/L (136-145)
[2020-12-05 08:20] VITALS: BP 122/73; PULSE 65; RESP 19; TEMP 36.4; O2SAT 100
[2020-12-05] MEDS: Insulin Aspart 300 UNITS/3 ML PEN SC ×6 (08:47→17:00)
[2020-12-05] MEDS: Insulin Glargine 300 UNITS/3 ML PEN SC (08:48)
[2020-12-05] MEDS: Normal Saline Flush 10 ML SYR IVP ×2 (08:49→16:26)
[2020-12-05] MEDS: Budesonide/Formoterol 160/4.5 6 GM 60 PUFF INH IH ×2 (10:47→20:08)
[2020-12-05] MEDS: Escitalopram 10 MG TAB PO (12:43)
[2020-12-05] MEDS: POTASSIUM CHLORIDE/0.9% NACL 1,000 ML 75 MEQ IV (13:39)
[2020-12-05 14:30] LABS: Bilirubin Negative (Negative); Blood Negative (Negative); Clarity Clear (Clear); Glucose 500 mg/dL (Negative); Ketones Trace mg/dL (Negative); Leukocyte Esterase Negative (Negative); Nitrite Negative (Negative); Specific Gravity 1.015 (1.005-1.025); Urobilinogen 0.2 EU/dL (Up TO 0.2)
[2020-12-05 15:00] VITALS: PULSE 82
--- NOTE | 2020-12-05 15:08 | PGE_ITS ---
Date of Service Date of service: 12/05/20 Time of Service: 15:08 Assessment and Plan Assessment and plan (1) Syncope: Status: Chronic Assessment and plan: Although the ER documented that there was no loss of consciousness the patient states that the contrary the she felt lightheaded dizzy and passed out and found herself on the floor having struck her head and chest. She still complains of headache although CT scan of her head last night without contrast showed no cerebral bleed or acute intracranial injury. She also complains of chest wall tenderness and left shoulder tenderness. She did sustain rib fractures a rib 3 and 4 on the left side. I think her syncope was secondary to dehydration. However she was not put on a telemetry last night. I have added telemetry monitoring. She continues to receive IV fluids although I decreased her IV rate down to 75 mL an hour because of her history of diastolic heart failure. She has been eating and drinking today without any nausea or vomiting or abdominal pain. Qualifiers: Syncope type: unspecified Qualified Code(s): R55 - Syncope and collapse (2) Dehydration: Status: Acute Assessment and plan: As above. Acute kidney injury appears to be improving. (3) SYD (acute kidney injury): Status: Acute Assessment and plan: BUN is down to 25 and creatinine is down to 1.2. They were at 30 and 1.9 respectively last night. Continue gentle IV fluid hydration overnight and then DC IV fluids in the morning. Repeat her BMP in the morning. (4) Type II diabetes mellitus, uncontrolled: Status: Chronic Assessment and plan: Per Dr. Nolasco's note patient's blood sugar has been out of control running high. She previously has presented with DKA and it appeared that she was in an incipient DKA but Dr. Nolasco was able to manage it without starting an insulin drip. Her anion gap was up to 18 last night but is since normalized. Her bicarbonate level never went below 22. I have restarted her on some long-acting insulin starting with Lantus 15 units at at bedtime and put her on a sliding scale in addition to mealtime carbohydrate coverage. Qualifiers: Glycemic state: with hyperglycemia Qualified Code(s): E11.65 - Type 2 diabetes mellitus with hyperglycemia (5) Ribs, multiple fractures: Status: Acute Assessment and plan: Rib fractures the left third and fourth ribs. Patient is refusing oral Tylenol as she says it makes her nauseated and cause her to vomit. I think she is confusing Tylenol with NSAIDs or aspirin. I will try parenteral acetaminophen and put on scheduled doses of 1000 mg every 8 hours. I have also ordered Nucynta to be given as needed however this may also cause her nausea and vomiting given her sensitivity to morphine. I will add a lidocaine patch to her regimen. If this did not improve her chest wall pain then we will consider consultation with anesthesia for nerve block Qualifiers: Encounter type: initial encounter Fracture type: closed Laterality: left Qualified Code(s): S22.42XA - Multiple fractures of ribs, left side, initial encounter for closed fracture (6) Discharge planning issues: Status: Acute Assessment and plan: Patient would like to return home as soon as she is mobile. I told her I would get physical therapy evaluate and treat her. In the interim we will try to get some control of her chest wall and left shoulder pain. Objective Last Vital Signs Temp 36.4 C L 12/05/20 08:20 Pulse 65 12/05/20 08:20 Resp 19 12/05/20 08:20 BP 122/73 12/05/20 08:20 Pulse Ox 100 12/05/20 08:20 Laboratory Results - last 24 hr 12/04/20 12/04/20 12/04/20 18:20 18:20 20:20 WBC 10.70 RBC 5.70 H Hgb 17.2 H Hct 49.7 H MCV 87.2 MCH 30.2 MCHC 34.6 RDW 13.5 Plt Count 334 D MPV 10.6 Immature Gran % 0.6 Neutrophils % 71.2 Lymphocytes % 19.8 Monocytes % 5.8 Eosinophils % 1.9 Basophils % 0.7 Nucleated RBC % 0 Absolute Neutrophils 7.63 H Absolute Lymphocytes 2.12 Absolute Monocytes 0.62 Absolute Eosinophils 0.20 Absolute Basophils 0.07 VBG pH 7.37 VBG pCO2 49 VBG pO2 27 VBG HCO3 28 VBG Total CO2 25 VBG O2 Saturation 48 VBG Base Excess 3 Sodium 133 L Potassium 3.3 L Chloride 93 L Carbon Dioxide 22.3 Anion Gap 17.7 H BUN 30 H Creatinine 1.9 H Estimated GFR/1.73 m2 26.21 Glucose 295 H Calcium 10.2 H Magnesium 2.4 Total Bilirubin 0.9 AST 9 L ALT 17 Alkaline Phosphatase 122 H Troponin I < 0.05 Total Protein 8.7 H Albumin 4.1 Urine Color Urine Clarity Urine pH Ur Specific [place] Urine Protein Urine Ketones Urine Blood Urine Nitrite Urine Bilirubin Urine Urobilinogen Ur Leukocyte Esterase Urine Glucose 12/04/20 12/04/20 12/04/20 21:00 21:00 22:59 WBC RBC Hgb Hct MCV MCH MCHC RDW Plt Count MPV Immature Gran % Neutrophils % Lymphocytes % Monocytes % Eosinophils % Basophils % Nucleated RBC % Absolute Neutrophils Absolute Lymphocytes Absolute Monocytes Absolute Eosinophils Absolute Basophils VBG pH VBG pCO2 VBG pO2 VBG HCO3 VBG Total CO2 VBG O2 Saturation VBG Base Excess Sodium 136 139 Potassium 3.3 L 3.9 Chloride 96 L 101 Carbon Dioxide 22.0 23.5 Anion Gap 18.0 H 14.5 H BUN Creatinine Estimated GFR/1.73 m2 Glucose Calcium Magnesium Total Bilirubin AST ALT Alkaline Phosphatase Troponin I < 0.05 Total Protein Albumin Urine Color Urine Clarity Urine pH Ur Specific [place] Urine Protein Urine Ketones Urine Blood Urine Nitrite Urine Bilirubin Urine Urobilinogen Ur Leukocyte Esterase Urine Glucose 12/05/20 12/05/20 07:00 14:10 WBC RBC Hgb Hct MCV MCH MCHC RDW Plt Count MPV Immature Gran % Neutrophils % Lymphocytes % Monocytes % Eosinophils % Basophils % Nucleated RBC % Absolute Neutrophils Absolute Lymphocytes Absolute Monocytes Absolute Eosinophils Absolute Basophils VBG pH VBG pCO2 VBG pO2 VBG HCO3 VBG Total CO2 VBG O2 Saturation VBG Base Excess Sodium 142 Potassium 4.1 Chloride 106 Carbon Dioxide 25.7 Anion Gap 10.3 BUN 25 H Creatinine 1.2 H D Estimated GFR/1.73 m2 44.54 Glucose 134 H D Calcium 8.5 Magnesium Total Bilirubin AST ALT Alkaline Phosphatase Troponin I Total Protein Albumin Urine Color Yellow Urine Clarity Clear Urine pH 6.0 Ur Specific [place] 1.015 Urine Protein Negative Urine Ketones Trace H Urine Blood Negative Urine Nitrite Negative Urine Bilirubin Negative Urine Urobilinogen 0.2 Ur Leukocyte Esterase Negative Urine Glucose 500 H
[2020-12-05 15:40] VITALS: BP 90/50; PULSE 67; RESP 18; TEMP 37.1; O2SAT 93
[2020-12-05] MEDS: ACETAMINOPHEN 1,000 MG/100 ML BTL 400 MG IVPB (16:26)
--- NOTE | 2020-12-05 16:33 | DI.VRAD_ITS ---
PROCEDURE INFORMATION: Exam: XR Left Shoulder Exam date and time: 12/05/2020 4:06 PM Age: 70 years old Clinical indication: Other: Post trauma x1 day TECHNIQUE: Imaging protocol: XR Left shoulder. Views: 2 or more views. COMPARISON: No relevant prior studies available. FINDINGS: Bones/joints: Evidence of prior resection of the distal clavicle. No acute shoulder fracture or dislocation. Sclerotic bone island present in the humeral head. Patient's known left rib fractures are not conspicuous. Soft tissues: Normal. IMPRESSION: Prior resection of the distal left clavicle versus AC separation. Please correlate with history. Dictated and Authenticated by: Pascual Hendricks MD. Ordering:LatonyaCARRIE TINGLEY HOSPITALRoberto Toledo MD
--- NOTE | 2020-12-05 18:59 | NUR.NOTE ---
Nursing Note: 18:59 12/05/2020 Patient's relative, Jorge Luis, called for an update. Jorge Luis reports that the patient's brother, Brian Ye, is in the ICU here at [facility] and Jorge Luis was informed that Brian will likely pass away tonight or tomorrow. Jorge Luis reports this will be devastating for Elly and that he worries about Elly's emotional wellbeing. Jorge Luis worries that Elly shows suicidal ideation and has turned away home health and ignored her diabetes for several weeks. Charge nurse notified.
[2020-12-05 19:45] VITALS: BP 91/55; PULSE 70; RESP 17; TEMP 37.3; O2SAT 94
[2020-12-05] MEDS: Donepezil 5 MG TAB PO (20:09)
[2020-12-05] MEDS: Insulin Glargine 300 UNITS/3 ML PEN 15 UNITS SC (23:01)
[2020-12-05 23:05] VITALS: BP 97/60; PULSE 78; RESP 18; TEMP 37.4; O2SAT 94
[2020-12-05 23:19] VITALS: PULSE 80
[2020-12-06] VITALS (9 sets, daily range): BP systolic 91–116; BP diastolic 53–69; PULSE 57–72; RESP 17–19; TEMP 36–36.9; O2SAT 95–99
[2020-12-06] MEDS: ACETAMINOPHEN 1,000 MG/100 ML BTL 400 MG IVPB ×4 (00:15→23:29)
[2020-12-06 01:12] LABS: COVID-19 RT-PCR UVMMC Result Negative (Negative)
[2020-12-06] MEDS: POTASSIUM CHLORIDE/0.9% NACL 1,000 ML 75 MEQ IV (02:14)
[2020-12-06 07:11] LABS: Abs Immature Grans 0.02 10^3/uL (0.0-0.06); Absolute Basophil Count 0.05 10^3/uL (0.0-0.2); Absolute Eosinophil Count 0.35 10^3/uL (0.0-0.7); Absolute Lymphocyte Count 1.78 10^3/uL (1.2-3.4); Absolute Monocyte Count 0.57 10^3/uL (0.1-0.8); Absolute Neutrophil Count 3.94 10^3/uL (1.2-6.7); Basophils % 0.7; Eosinophils % 5.2; HCT 37.7 % (36.0-46.0); HGB 12.3 g/dL (11.2-15.7); Immature Grans % 0.3; Lymphocytes % 26.5; MCH 30.3 pg (27.0-33.0); MCHC 32.6 % (32.0-36.0); MCV 92.9 fL (80-95); MPV 10.6 fL (8.0-11.0); Monocytes % 8.5; Neutrophils % 58.8; Nucleated RBC 0 %; Platelet Count 226 10^3/uL (130-400); RBC 4.06 10^6/uL (3.93-5.22); RDW 14.5 % (11.7-14.6); RDW-SD 49.7 fL; WBC 6.71 10^3/uL (4.4-10.8)
[2020-12-06 07:25] LABS: Anion Gap 8.9 mmol/L (3-11); BUN 17 mg/dL (7-18); CO2 22.1 mmol/L (21.0-32.0); CREATININE 1.1 mg/dL (0.55-1.02); Chloride 108 mmol/L (98-107); Estimated GFR 49.25 (mL/min/1.73m2); Glucose 226 mg/dL (74-106); Potassium 4.1 mmol/L (3.5-5.1); Sodium 139 mmol/L (136-145)
[2020-12-06 07:40] LABS: Calcium 8.3 mg/dL (8.5-10.1)
[2020-12-06] MEDS: Insulin Aspart 300 UNITS/3 ML PEN SC ×6 (08:20→17:04)
[2020-12-06] MEDS: Normal Saline Flush 10 ML SYR IVP ×2 (08:30→23:30)
[2020-12-06] MEDS: Budesonide/Formoterol 160/4.5 6 GM 60 PUFF INH IH ×2 (08:45→20:38)
--- NOTE | 2020-12-06 08:45 | INITIAL_ITS ---
- If Service Date Differs Date of service: 12/05/20 Time of Service: 08:55 Care Management Initial Assess REASON FOR HOSPITALIZATION:: Nausea, dehydration, hyperglycemia PAST MEDICAL HISTORY/PAST SURGICAL HISTORY:: Abdominal pain, acute gastroenteritis, SYD non traumatic, acute pneumonitis, anxiety, asthma, back pain, CHF, chronic constipation, cognitive impairment (not observed), cubital tunnel syndrome, depressive disorder, DKA, dyspnea, edema, essential hypertension, GERD without esophagitis, hx of shingles, hyperlipidemia, DM insulin dependent, internal derangement of right knee, interstitial lung disease, nursing home use of high risk medication, metabolic acidosis with normal anion gap and bicarbonate losses, migraine, neck pain, neoplasm of uncertain behavior of ovary, osteoporosis, peripheral neuralgia, post herpetic neuralgia, sepsis, shoulder pain, total urinary incontinence, Type II DM uncontrolled, umbilical hernia, appendectomy, arthroscopy shoulder, bilateral salpingectomy with oophrectomy, section, ligation of fallopian tube, thoracoscopic right lung Bx PREVIOUS FUNCTIONAL STATUS/SOCIAL/FAMILY SUPPORTS:: Elly lives at [facility] in [facility]. Her grand daughter, Sumi is living with her currently. Her son Himanshu lives locally and is supportive. She has five grand children. Jorge Luis is quite supportive and a strong advocate, often participating in discharge coordination and medical oversight. She has had three marriages and is . She is independent at baseline in the community and reports her previously shared vehicle with her brother was given solely to her when he was encouraged to no longer drive per his PCP. CURRENT FUNCTIONAL STATUS:: Elly is sleeping when CM attempts to see her. CM discussed current status at length with Elly's grandson Jorge Luis and requested he bring in home medication to [facility]. Jorge Luis reports Elly is failing at home, VNA supports were not provided, and CGM orders were not filled. He advocates strongly for Elly to have a short rehab stay prior to returning home upon discharge. ADVANCE DIRECTIVES:: COLST on file. Has patient been provided with info about the portal/API?: Yes Did the patient sign up for the portal?: Yes (Previously) CODE STATUS:: Full Code INSURANCE COVERAGE / FINANCIAL ISSUES:: MCR/ [facility] CURRENT HOME/COMMUNITY SERVICES/EQUIPMENT:: Diabetic supplies; insulin dependent, Motorized wheelchair, FWW, Home O2 PRIMARY CARE PHYSICIAN:: JONATHAN [facility] POTENTIAL DISCHARGE NEEDS:: CM notified CCC at [facility] of recommendations for CGM-CM connected Evelyn with Marzena and PCP to assure direct communication at [facility]'s direction. CM notified [facility] of anticipated new orders for VNA RN support upon discharge. PATIENT/FAMILY EDUCATION NEEDS:: Review of discharge instructions, discuss Ask Me Three. ANTICIPATED BARRIERS TO DISCHARGE:: None identified. TRANSPORTATION:: TBD by disposition. PLAN:: Referral will be sent to [facility] for possible admission to SNF for a short rehab stay. Elly continues to be closely monitored acutely at this time, CM continues to follow. Readmission - Within the Past 30 Days Yes or No: Y - Date of First Admission Date of 1st Admission: 11/12/20 - Date of this Admission Date of Admission: 12/04/20 This admission was: Through ED - Office Visit Since 1st Admission Have you seen your PCP in the office since discharge?: Yes Date of PCP Appointment: 11/20/20 Had an appointment Been Scheduled?: Yes - I. Interview patient and/or Family Difficulty reaching your doctor or getting an office appt?: No Have you had trouble purchasing/ or taking medication?: Yes Describe barriers fpr purchasing or taking medication: CGM not filled as directed, uncertain what barriers created lack of follow up. Did you feel ready for discharge when you left the last time: Yes Were services received that you thought were set up on disch: No Why weren't services received?: Leodan Kang reports diabetes management orders through [facility] RN were not provided. If patient did not receive services, were there orders at: Yes Did you call your physician beore you came to the ED?: No - If the patient had a VNA ordered Did the patient have a VNA order?: Yes Did you call the VNA before you came?: No Did the VNA tell you to come to the hospital?: No Do you know if the VNA called your physician?: No - ED visits How many ED visits in the past 12 months: 5 - Assessment for Readmission Summary of readmission circumstances, based upon interviews: Barriers to receiving CGM as recommended, per family reports VNA supports were not provided.
--- NOTE | 2020-12-06 10:36 | W.PM.PROGNOT ---
Date of Service Date of service: 12/06/20 Time of Service: 12:15 Assessment and Plan Assessment and plan (1) Ribs, multiple fractures: Status: Acute Assessment and plan: She has been on IV APAP 1000mg q8h. She required 2 dose of Nucynta in the last 24 hours. She reports feeling like the room is spinning in addition to feeling dizzy when moving to a standing position. ? nucynta contributing to feeling dizzy. Discontinue nucynta. Trial oxycodone 2.5-5 mg q6h prn. Lidoderm patches to left shoulder and left ribs. She will need to transition to oral APAP, she declined today. Qualifiers: Encounter type: initial encounter Fracture type: closed Laterality: left Qualified Code(s): S22.42XA - Multiple fractures of ribs, left side, initial encounter for closed fracture (2) Dehydration: Status: Acute Assessment and plan: SYD resolved with IVF. She continues to have hypotension, dizziness when standing and her mouth feels dry. Try to get orthostatic BPs, if she can tolerate. NS bolus, 500 cc. Continue gentle IV fluids with NS due to diastolic heart failure history. Her K is normal, no longer needs K in IVF. (3) Syncope: Status: Chronic Assessment and plan: Appears to be in the setting of dehydration with SYD. She had a fall in which she struck her head, injured her shoulder and has fractured 3rd and 4th ribs as a result. CT head- negative for acute abnormalities. L shoulder x-ray negative. Telemetry shows NSR with no ectopy. Her BP remains low today, in the 90s systolic and she is dizzy when standing as above, IV bolus as above. Qualifiers: Syncope type: unspecified Qualified Code(s): R55 - Syncope and collapse (4) SYD (acute kidney injury): Status: Acute Assessment and plan: Renal function back to baseline. (5) IDDM (insulin dependent diabetes mellitus): Status: Chronic Assessment and plan: Her blood glucose remains elevated. Increase Lantus to 20 units at HS. Continue Aspart sliding scale and carb counting coverage. (6) Acute on chronic congestive heart failure with right ventricular diastolic dysfunction: Status: Acute Assessment and plan: LVEF 55-60% on echocardiogram 02/2019. Continue to monitor fluid status, intake and output. (7) Pulmonary fibrosis: Status: Chronic Assessment and plan: Continue ofev. (8) COPD (chronic obstructive pulmonary disease): Status: Chronic Qualifiers: COPD type: emphysema Emphysema type: panlobular Qualified Code(s): J43.1 - Panlobular emphysema (9) DVT prophylaxis: Status: Acute Assessment and plan: Subcutaneous lovenox for DVT ppx. (10) COVID-19 ruled out by laboratory testing: Status: Ruled-out (11) Discharge planning issues: Status: Acute Assessment and plan: She is working with PT. At this point, PT recommends SNF. Elly wants to get home when she is able. Her dizziness is limiting her activity. Address dizziness as above. Subjective Subjective Interval history since last seen: Elly continues to have left-sided rib pain 6/10. She also reports left shoulder pain, 10/10 with movement, she had a negative left shoulder x-ray yesterday. She is eating and drinking well, she is tolerating her diet. Her mouth feels dry. She has not had a BM yet. She reports that she slept well last night. Her glucose remains elevated. She continues to have dizziness/syncope when she gets up. She also reports feeling like the room is spinning. She took one dose of nucynta last night and one dose today. She denies SOB at rest, she has SOB with activity at baseline. She has oxygen at home. She has been out of bed to the bathroom. She is working with PT, she was able to ambulate in the room with walker and assistance. Exam Narrative Exam Narrative: General: Elderly female, laying in hospital bed, overweight, awake and alert, answers questions appropriately. HEENT: Area of ecchymosis to lateral aspect of left eye, pupils equal and round, mucous membranes moist. Neck: supple, no JVD. Cardiovascular: heart sounds regular, nontachycardic. Chest: no ecchymosis over ribs on left. Tenderness on palpation of left chest wall. Respiratory: respirations appear even and unlabored. Lung sounds are clear throughout. GI: soft, nontender on palpation, nondistended, +BS. Extremities: no pitting edema to BLEs. Moves all 4 extremities freely. L shoulder discomfort with movement of LUE. Objective Last Vital Signs Temp 36.5 C 12/06/20 07:59 Pulse 66 12/06/20 07:59 Resp 17 12/06/20 07:59 BP 101/53 L 12/06/20 07:59 Pulse Ox 96 12/06/20 07:59 Laboratory Results - last 24 hr 12/04/20 12/05/20 12/06/20 21:20 14:10 06:45 WBC RBC Hgb Hct MCV MCH MCHC RDW Plt Count MPV Immature Gran % Neutrophils % Lymphocytes % Monocytes % Eosinophils % Basophils % Nucleated RBC % Absolute Neutrophils Absolute Lymphocytes Absolute Monocytes Absolute Eosinophils Absolute Basophils Sodium 139 Potassium 4.1 Chloride 108 H Carbon Dioxide 22.1 Anion Gap 8.9 BUN 17 D Creatinine 1.1 H Estimated GFR/1.73 m2 49.25 Glucose 226 H D Calcium 8.3 L Urine Color Yellow Urine Clarity Clear Urine pH 6.0 Ur Specific [place] 1.015 Urine Protein Negative Urine Ketones Trace H Urine Blood Negative Urine Nitrite Negative Urine Bilirubin Negative Urine Urobilinogen 0.2 Ur Leukocyte Esterase Negative Urine Glucose 500 H SARS-CoV-2 (PCR) Negative Nasopharyn COVID-19 PCR Not Applicable Ref Test [facility] 12/06/20 06:45 WBC 6.71 RBC 4.06 Hgb 12.3 D Hct 37.7 D MCV 92.9 MCH 30.3 MCHC 32.6 RDW 14.5 Plt Count 226 D MPV 10.6 Immature Gran % 0.3 Neutrophils % 58.8 Lymphocytes % 26.5 Monocytes % 8.5 Eosinophils % 5.2 Basophils % 0.7 Nucleated RBC % 0 Absolute Neutrophils 3.94 Absolute Lymphocytes 1.78 Absolute Monocytes 0.57 Absolute Eosinophils 0.35 Absolute Basophils 0.05 Sodium Potassium Chloride Carbon Dioxide Anion Gap BUN Creatinine Estimated GFR/1.73 m2 Glucose Calcium Urine Color Urine Clarity Urine pH Ur Specific [place] Urine Protein Urine Ketones Urine Blood Urine Nitrite Urine Bilirubin Urine Urobilinogen Ur Leukocyte Esterase Urine Glucose SARS-CoV-2 (PCR) Nasopharyn COVID-19 PCR Ref Test Perform Site
--- NOTE | 2020-12-06 10:53 | PT.INIE ---
Date of service: 12/06/20 Time of Service: 09:03 PT Notes Visit Reasons: NAUSEA,DEHYDRATION,HYPERGLYCEMIA Inpatient Physical Therapy Evaluation Date: 12/06/20 Referring Doctor: Tre Carrizales MD PT Orders: PT CONSULT: D/C Non PT Dependent Precautions: Standard. Fall. Patient Profile/Admitting Diagnosis: Elly is a 70 old female presenting to the ER on 12/04/20 with reports of getting light headed and falling backwards, hitting her head and losing consciousness. She had posterior head pain and left sided trunk pain. She was admitted for nausea, dehydration, and hyperglycemia. Imaging of left shoulder and ribs indicated fracture of left ribs 3 and 4. She does complain of left shoulder, rib, and bilateral anterior chest pain. PMHX: Medical History Abdominal pain Acute gastroenteritis (03/16/18) Acute kidney injury (nontraumatic) Acute pneumonitis Anxiety (03/16/18) Asthma Asthma Back pain CHF (congestive heart failure) Chronic constipation (03/16/18) Cognitive impairment (03/16/18) Mild, w/Memory Loss Cubital tunnel syndrome (03/16/18) Depressive disorder DKA (diabetic ketoacidoses) Dyspnea (03/16/18) Edema (03/16/18) Essential hypertension (07/17/13) Gastroesophageal reflux disease without esophagitis (03/16/18) History of shingles (03/16/18) Hyperlipemia Insulin dependent diabetes mellitus Internal derangement of right knee Interstitial lung disease (03/16/18) Pulm: [place] Long-term use of high-risk medication (03/16/18) Metabolic acidosis with normal anion gap and bicarbonate losses Migraine (04/03/14) Neck pain (03/16/18) 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) Osteoporosis (03/16/18) Peripheral neuralgia Post herpetic neuralgia (03/16/18) Sepsis Shoulder pain left- surgery Total urinary incontinence Type II diabetes mellitus, uncontrolled Umbilical hernia Surgical History Appendectomy Arthroscopy, Left Shoulder Bilateral salpingectomy with oophorectomy section Cholecystectomy History of section Ligation of fallopian tube Thoracoscopic (R)Lung Bx (02/12/18) Social History/Home Situation: Lives in apartment with 4 BARRI[address], states grand daughter lives with her, has family members available; usually on 1L of O2 at home Current Functional Limitations: Decreased endurance, pain, dizzy Equipment Owned/DME: FWW Subjective: Cleared by nursing to see patient and she is agreeable to PT. Patient is resting in bed at time of consult and connected to telemetry. Objective: General Observation: Patient does not appear in distress, not using O2, closes eyes frequently during session, slightly lethargic Mental Status: A&Ox3 Pain: 10/10 left shoulder and ribs ROM: Right Upper Extremity: R UE ROM Within functional limits Left Upper Extremity: L UE ROM impaired shoulder flexion and abduction otherwise within functional limits Right Lower Extremity: R LE ROM Within functional limits Left Lower Extremity: L LE ROM Within functional limits Strength: Right Upper Extremity: Grossly 5/5 R UE strength Left Upper Extremity: Shoulder flexion 2/5, shoulder abduction 2/5, shoulder ER 4+5, shoulder IR 5/5, elbow flexion5/5, elbow extension 5/5 Right Lower Extremity: Grossly 5/5 R LE strength Left Lower Extremity: Grossly 5/5 L LE strength Sensation: Intact Bed Mobility/Transfers: Supervision with bed mobility and sit<>stand transfers Gait: Ambulated 10ft in room with FWW, CGA, reports pain and fatigue Balance: Static Sitting: Normal Dynamic Sitting: Good Static Standing: Fair Dynamic Standing: Poor Special Tests: Mobility Limitations Standardized Measure [facility] AM-PAC 6 clicks Basic Mobility Inpatient Short Form: Raw Score: 17 CMS Score: 50.57% Informed Consent/Education: Patient instructed in purpose of PT consult and plan of care. Assessment: Patient is a 70 year old female referred to physical therapy services with the diagnosis of nausea, dehydration, and hyperglycemia. Patient presents with clinical signs and symptoms consistent with generalized weakness, pain, and difficulty walking. She is very lethargic during session with complaints of dizziness and left shoulder/rib pain. She has good baseline bed mobility, but overall is lethargic today limiting overall focus and safety. She is able to ambulate a short distance in the room with FWW, but reports fatigue. Her left shoulder ROM is painful and diminished into flexion and abduction directions. Left upper extremity strength is also less than at previous evaluations with pain present. Patient is assessed as a Moderate [id number] complexity based on the following: History: See above Examination: See above Presentation: Evolving Decision Making: Moderate Goals: Goals X1 week 1. Supine-Sit Independent 2. Sit-Supine Independent 3. Sit-Stand Independent 4. Stand-Sit Independent 5. Bed-Chair Independent 6. Chair-Bed Independent 7. Gait Supervision with FWW 150ft 8. Stairs Supervision with bilateral rails 4 steps 9. Independent with home exercise program 10. Balance improve to good Plan of Care/Treatment Plan: 1-2x/day, 7 days/week x 1 week. Plan of care has been reviewed with the SALES TRAINING MANAGER providing the service under Physical Therapy direction. Initiate Physical Therapy intervention for strengthening, bed mobility, transfers, gait, stairs, balance training, use of assistive device. DISCHARGE RECOMMENDATIONS: In current state recommend SNF placement, condition will be closely monitored for functional improvements to mobility TREATMENT CODE/TIME: 9:03-9:17 (14 minutes), [id number] moderate complexity meche Pepper, PT, DPT, O[facility] [place] [facility]
[2020-12-06] MEDS: Escitalopram 10 MG TAB PO (11:51)
[2020-12-06] MEDS: Meclizine 12.5 MG TAB PO (13:32)
[2020-12-06] MEDS: Lidocaine 5% Patch 2 PATCH TP (13:33)
[2020-12-06] MEDS: Normal Saline 250 ML 500 ML IV (14:40)
[2020-12-06] MEDS: Enoxaparin 30 MG/0.3 ML SYR SC (14:52)
[2020-12-06] MEDS: Meclizine 12.5 MG TAB 25 MG PO (17:03)
[2020-12-06] MEDS: Normal Saline 1,000 ML 75 ML IV (17:11)
--- NOTE | 2020-12-06 19:53 | CMPROGNOTE_ITS ---
Care Management Progress Note S/O: Elly was lying when CM met with her. She processed her feelings around losing her brother who is at [facility] actively dying and asked if he was still living; CM provided updates to Elly and revisited the conversation re: visitation which is not permitted due to current COVID limitations. Elly verbalized understanding policy restrictions but requested notification of her brother's passing. CM notified [employer] Chel of Elly's request. Elly is agreeable to short stay at [facility] (no more than 2 weeks). CM continues to follow. A: 70 year old female admitted 12/04/20 for nausea, dehydration, hyperglycemia P: Referral will be sent to [facility] for possible admission to SNF for a short rehab stay. Elyl continues to be closely monitored acutely at this time, CM continues to follow.
[2020-12-06] MEDS: Donepezil 5 MG TAB PO (20:38)
[2020-12-06] MEDS: Nystatin POWDER 60 GM JAR TP (20:38)
[2020-12-06] MEDS: Cyclobenzaprine 10 MG TAB 5 MG PO (21:11)
[2020-12-06] MEDS: oxyCODONE 5 MG TAB PO (21:12)
[2020-12-06] MEDS: Insulin Glargine 300 UNITS/3 ML PEN 20 UNITS SC (21:13)
[2020-12-06] MEDS: LIDOCAINE Patch Removal 2 EACH TP (21:19)
[2020-12-06] MEDS: HYDROmorphone 2 MG/ML VIAL IVP (23:30)
[2020-12-07] VITALS (9 sets, daily range): BP systolic 101–126; BP diastolic 56–76; PULSE 58–81; RESP 16–20; TEMP 36.3–37.1; O2SAT 96–99
[2020-12-07 07:35] LABS: Anion Gap 6.7 mmol/L (3-11); BUN 14 mg/dL (7-18); CO2 22.3 mmol/L (21.0-32.0); CREATININE 1.1 mg/dL (0.55-1.02); Calcium 8.3 mg/dL (8.5-10.1); Chloride 109 mmol/L (98-107); Estimated GFR 49.25 (mL/min/1.73m2); Glucose 261 mg/dL (74-106); Potassium 4.4 mmol/L (3.5-5.1); Sodium 138 mmol/L (136-145)
[2020-12-07] MEDS: Budesonide/Formoterol 160/4.5 6 GM 60 PUFF INH IH ×2 (08:07→20:55)
[2020-12-07] MEDS: Nystatin POWDER 60 GM JAR TP ×2 (08:42→20:55)
[2020-12-07] MEDS: oxyCODONE 5 MG TAB PO ×2 (08:42→23:58)
[2020-12-07] MEDS: Insulin Aspart 300 UNITS/3 ML PEN SC ×5 (08:43→16:55)
[2020-12-07] MEDS: ACETAMINOPHEN 1,000 MG/100 ML BTL 400 MG IVPB ×3 (08:45→23:57)
[2020-12-07] MEDS: Normal Saline 1,000 ML 75 ML IV (09:03)
[2020-12-07] MEDS: Lidocaine 5% Patch 2 PATCH TP (09:46)
--- NOTE | 2020-12-07 10:29 | PGE_ITS ---
Date of Service Date of service: 12/07/20 Time of Service: 11:54 Assessment and Plan Assessment and plan (1) Ribs, multiple fractures: Status: Acute Assessment and plan: Elly reports that her pain is tolerable today. She has been on IV APAP 1000mg q8h. Nucynta discontinued in the setting of feeling dizzy/room spinning sensation. Trial oxycodone 2.5-5 mg q6h prn. Continue Lidoderm patches to left shoulder and left ribs. She will need to transition to oral APAP prior to discharge. Qualifiers: Encounter type: initial encounter Fracture type: closed Laterality: left Qualified Code(s): S22.42XA - Multiple fractures of ribs, left side, initial encounter for closed fracture (2) Dehydration: Status: Acute Assessment and plan: SYD resolved with IVF. Her dizziness is improving. She is not significantly orthostatic. She is no longer hypotensive. Continue gentle IV fluids due to ongoing dizziness. Monitor fluid status closely with daily weights and I&Os. (3) Syncope: Status: Chronic Assessment and plan: Appears to be in the setting of dehydration with SYD. She had a fall in which she struck her head, injured her shoulder and has fractured 3rd and 4th ribs as a result. CT head- negative for acute abnormalities. L shoulder x-ray negative. Telemetry shows NSR with no ectopy. Her BP is improved today. The dizziness is improving. Continue to monitor. Qualifiers: Syncope type: unspecified Qualified Code(s): R55 - Syncope and collapse (4) SYD (acute kidney injury): Status: Acute Assessment and plan: Renal function back to baseline. (5) IDDM (insulin dependent diabetes mellitus): Status: Chronic Assessment and plan: Her blood glucose remains elevated in the 200s fasting. Increase Lantus to 25 units at HS. Continue Aspart with resistant sliding scale and carb counting coverage. Continue to monitor BG at AC. (6) Acute on chronic congestive heart failure with right ventricular diastolic dysfunction: Status: Acute Assessment and plan: LVEF 55-60% on echocardiogram 02/2019. Continue to monitor fluid status, intake and output and daily weights. (7) Pulmonary fibrosis: Status: Chronic Assessment and plan: Continue ofev. (8) COPD (chronic obstructive pulmonary disease): Status: Chronic Qualifiers: COPD type: emphysema Emphysema type: panlobular Qualified Code(s): J43.1 - Panlobular emphysema (9) DVT prophylaxis: Status: Acute Assessment and plan: Subcutaneous lovenox for DVT ppx. (10) COVID-19 ruled out by laboratory testing: Status: Ruled-out (11) Discharge planning issues: Status: Acute Assessment and plan: She is working with PT. At this point, PT recommends SNF. Elly wants to get home when she is able. Subjective Subjective Patient reports: no new complaints Interval history since last seen: Elly reports that she is still sore on the left side of her face. She can move Left shoulder today. The lidoderm patch is helping both the shoulder and the ribs. She feels that the pain is tolerable. She continues to have dizziness upon standing, the dizziness has improved from yesterday. She does not feel like the room is spinning today. She is eating and drinking and tolerating her diet. She denies N/V. She has not had a BM. Her glucose remains elevated. She is working with PT, she ambulated to the and had slight dizziness, improved from yesterday. Her SOB is at her baseline, with activity, no wheezing. She has cough at baseline, she reports green sputum todya. Her chest/ribs are sore when she pushes on it. Exam Narrative Exam Narrative: General: Elderly female, laying in hospital bed, overweight, a wake and alert, answers questions appropriately. HEENT: Area of ecchymosis to lateral aspect of left eye, pupils equal and round, mucous membranes moist. Neck: supple, no JVD. Cardiovascular: heart sounds regular, nontachycardic. Chest: no ecchymosis over ribs on left. Tenderness on palpation of left chest wall. Respiratory: respirations appear even and unlabored. Rales noted bilaterally. GI: soft, nontender on palpation, nondistended, +BS. Extremities: no pitting edema to BLEs. Moves all 4 extremities freely. She is moving her right arm with less discomfort today. Objective Last Vital Signs Temp 36.7 C 12/07/20 08:35 Pulse 62 12/07/20 08:35 Resp 20 12/07/20 08:35 BP 126/61 12/07/20 08:35 Pulse Ox 99 12/07/20 08:35 Laboratory Results - last 24 hr 02/15/21 06:55 Sodium 138 Potassium 4.4 Chloride 109 H Carbon Dioxide 22.3 Anion Gap 6.7 BUN 14 Creatinine 1.1 H Estimated GFR/1.73 m2 49.25 Glucose 261 H Calcium 8.3 L
[2020-12-07] MEDS: Escitalopram 10 MG TAB PO (11:59)
--- NOTE | 2020-12-07 12:20 | PT.INTREAT ---
Date of service: 12/07/20 Time of Service: 09:20 PT Notes Visit Reasons: NAUSEA, DEHYDRATION, HYPERGLYCEMIA Inpatient Physical Therapy Treatment Note [facility] Date: 12/07/2020 PRECAUTIONS: Fall SUBJECTIVE: Elly reports that she is not feeling well this morning. She continues to feel dizzy. She is agreeable to participating in PT, although indicates that she knows she will not be able to walk very far, safely. Patient reports that she is feeling better in the afternoon. OBJECTIVE: PAIN: Patient c/o significant B shoulder pain L>R BED MOBILITY/TRANSFERS Supine-sit: I with HOB at 40 degrees Sit-supine: I with HOB flat Sit-stand: S Stand-sit: S GAIT Assistive Device: FWW Weight bearing: Full Assist: SBA Distance: 20' x2 in a.m.; 100' in p.m. Deviation: Refused further gait training due to dizziness THEREX: Patient was instructed in several lower extremity strengthening exercises, performed in a supine position in a.m. and while seated at EOB in p.m., as per flow sheet. TOILETING: Patient toileted with supervision for transfers in both a.m. and p.m. ASSESSMENT: Patient was able to tolerate a a slight progression in gait distance with FWW support, requiring SBA, although continues to feel dizzy, limiting her ability to walk further. PLAN: Continue with global strengthening and gait and transfer training for continued progression towards baseline level of function, as symptoms allow. TREATMENT CODE/TIME: Session 1: 20 minutes; 30851 (09:20) Session 2: 20 minutes; [id number] x2 (14:50)
[2020-12-07] MEDS: Polyethylene Glycol 3350 17 GM PACKET PO (13:27)
[2020-12-07] MEDS: Enoxaparin 30 MG/0.3 ML SYR SC (13:27)
--- NOTE | 2020-12-07 15:06 | W.INDIABCONS ---
Date of service: 12/07/20 Time of Service: 15:11 Diabetes Inpatient Consult DESCRIPTION/ASSESSMENT: 70 year old female readmitted for second time in last 8 weeks with dehydration, DKA, SYD with long history of poorly controlled DM2. Most recent A1C: 9.3% (06/25/20), Elly reports her BS are typically 200-350 mg/dl per day and she has been having a hard time regulating her BS while taking ofev which causes diarrhea for her. Elly was educated on last hospitalization on dietary changes needed while on ofev- has been following a lower fat, lower sugar diet. She reports that this hospitalization occured as she fell and fractured her ribs. She notes that her BS was > 300 mg/dl on the day that she fell. Home Meds: degludec 30 u Q hs, lispro at meals, januvia 25mg, ofev 100 mg qd. She checks her BS 4 times daily- Fasting, after meals. She injects insulin 4 times daily as prescribed. It is unclear why she continues to have hyperglycemia, but it may be due to her stopping her insulin (including long acting) when she feels unwell. At previous admission, group underwriter requested that PCP order a continuous glucose monitor to help understand her glucose variability and provide alarms for hypo and hyper glycemia. Elly continues to want a CGM and group underwriter agrees that it would be very helpful and educational for patient. INTERVENTION: Reviewed dietary changes needed while taking ofev. Provided on going diabetes education on how to deal with sick days and optimal meals for glycemic control. Reviewed sick day rules for long acting and short acting insulin. Recommend updated A1C. Recommend continuous glucose monitor (Kaye 2) with alarms to alert Elly of hypo/hyperglycemia. Will follow up with PCP to provide script for CGM. PLAN: Continue current meal plan recommend Libre2 continuous glucose monitor and sensors at discharge recommend follow up with outpatient dietitian for continued diabetes education/management Time Spent in Nutritional Counseling and Treatment: 20 min
--- NOTE | 2020-12-07 17:56 | PDOC.CMPRO ---
Care Management Progress Note S/O: Elly was lying when CM met with her, she reports feeling well and anticipating remaining at [facility] for a few more days per her discussion with MD. Elly remains agreeable to short stay at [facility] (no more than 2 weeks) if advised. CM will continue to seek information regarding follow through with CGM and VNA RN. CM continues to follow. A: 70 year old female admitted 12/04/20 for nausea, dehydration, hyperglycemia P: Referral will be sent to [facility] for possible admission to SNF for a short rehab stay. Elly is agreeable to transfer to SNF for a few weeks but would much prefer to return home if able. Elly continues to be closely monitored acutely at this time, CM continues to follow.
[2020-12-07] MEDS: Donepezil 5 MG TAB 10 MG PO (20:54)
[2020-12-07] MEDS: Bisacodyl 5 MG TABEC PO (20:55)
[2020-12-07] MEDS: Cyclobenzaprine 10 MG TAB 5 MG PO (20:55)
[2020-12-07] MEDS: Normal Saline Flush 10 ML SYR IVP ×2 (20:56→23:58)
[2020-12-07] MEDS: Insulin Glargine 300 UNITS/3 ML PEN 25 UNITS SC (21:38)
[2020-12-07] MEDS: LIDOCAINE Patch Removal 2 EACH TP (21:38)
[2020-12-08] VITALS (7 sets, daily range): BP systolic 109–116; BP diastolic 63–76; PULSE 63–72; RESP 17–20; TEMP 36.5–37; O2SAT 96–98
[2020-12-08] MEDS: Polyethylene Glycol 3350 17 GM PACKET PO ×2 (07:36→19:32)
[2020-12-08] MEDS: Nystatin POWDER 60 GM JAR TP ×2 (07:36→19:32)
[2020-12-08] MEDS: Pantoprazole 40 MG TABCR PO (07:36)
[2020-12-08] MEDS: oxyCODONE 5 MG TAB PO ×2 (07:43→21:56)
[2020-12-08] MEDS: Normal Saline Flush 10 ML SYR IVP ×2 (07:44→15:56)
[2020-12-08] MEDS: ACETAMINOPHEN 1,000 MG/100 ML BTL 400 MG IVPB ×2 (07:44→15:56)
[2020-12-08] MEDS: Insulin Aspart 300 UNITS/3 ML PEN SC ×6 (07:49→16:57)
[2020-12-08] MEDS: Budesonide/Formoterol 160/4.5 6 GM 60 PUFF INH IH ×2 (08:27→19:32)
[2020-12-08] MEDS: Lidocaine 5% Patch 2 PATCH TP (09:49)
[2020-12-08] MEDS: Escitalopram 20 MG TAB PO (11:33)
--- NOTE | 2020-12-08 12:17 | PT.INTREAT ---
Date of service: 12/08/20 Time of Service: 10:05 PT Notes Visit Reasons: NAUSEA, DEHYDRATION, HYPERGLYCEMIA Inpatient Physical Therapy Treatment Note [facility] Date: 12/08/2020 PRECAUTIONS: Fall SUBJECTIVE: Elly is pleasant and agreeable to participating in PT. She reports that she is feeling much better today. In the afternoon she is upset, as she learned that her brother earlier today. OBJECTIVE: PAIN: Patient c/o significant B shoulder pain L>R BED MOBILITY/TRANSFERS Supine-sit: I with HOB at 40 degrees Sit-supine: I with HOB flat Sit-stand: I Stand-sit: I Bed?Chair: S Chair?bed: S GAIT Assistive Device: No AD Weight bearing: Full Assist: SBA Distance: 150' in a.m.; 100' x2 in p.m. Deviation: SOB THEREX: Patient was instructed in several lower extremity strengthening exercises, performed while seated at EOB, as per flow sheet. TOILETING: Patient toileted independently STAIRS: Up/down 3x4 and 2x6 using B rails and a step-to pattern independently ASSESSMENT: Patient was able to tolerate a progression in gait distance without assistive device support, requiring SBA. She is demonstrating independence with bed mobility and transfers as well as toileting at this time. PLAN: Continue with global strengthening and gait and transfer training for continued progression towards baseline level of function, as symptoms allow. TREATMENT CODE/TIME: Session 1: 25 minutes; [id number], [id number] (10:05) Session 2: 15 minutes; [id number] (15:10)
[2020-12-08] MEDS: Enoxaparin 30 MG/0.3 ML SYR SC (13:07)
--- NOTE | 2020-12-08 14:32 | CHAPLAIN ---
Elly continues to be pleasant and easily enters into conversation. She talked about growing up with six siblings. Her brother, Brian, is in the ICU here on comfort care. Elly is aware of this and asked to be notified when Brian dies. She is on Brian's HIPPA form, so I was able to let her know when Brian early this afternoon. Elly said of the eight kids, three siblings remain. She was going to call two brothers to let them know Brian had . She said she was relieved that Brian was no longer in pain.
[2020-12-08] MEDS: Bisacodyl 5 MG TABEC PO (14:51)
--- NOTE | 2020-12-08 16:27 | W.PM.PROGNOT ---
Date of Service Date of service: 12/08/20 Time of Service: 16:27 Assessment and Plan Assessment and plan (1) Ribs, multiple fractures: Start date: 12/08/20 Start time: 16:37 Status: Acute Assessment and plan: Elly reports that her pain is tolerable today. Nucynta discontinued in the setting of feeling dizzy/room spinning sensation. Trial oxycodone 2.5-5 mg q6h prn. She states pain is tolerable, transitioned to PO tylneol Continue Lidoderm patches to left shoulder and left ribs. Encourage IS Albuterol as needed for wheezing Qualifiers: Encounter type: initial encounter Fracture type: closed Laterality: left Qualified Code(s): S22.42XA - Multiple fractures of ribs, left side, initial encounter for closed fracture (2) Syncope: Start date: 12/08/20 Start time: 16:39 Status: Resolved Assessment and plan: Improved PT has cleared her for Home with services. She had a fall in which she struck her head, injured her shoulder and has fractured 3rd and 4th ribs as a result. CT head- negative for acute abnormalities. L shoulder x-ray negative. Telemetry shows NSR with no ectopy. Her BP is improved today. The dizziness is improving. Continue to monitor. Qualifiers: Syncope type: unspecified Qualified Code(s): R55 - Syncope and collapse (3) IDDM (insulin dependent diabetes mellitus): Start date: 12/08/20 Start time: 16:41 Status: Chronic Assessment and plan: Her blood glucose levels continue to remain high increase lantus to 30 at HS Continue Aspart with resistant sliding scale and carb counting coverage. Continue to monitor BG at AC. (4) Acute on chronic congestive heart failure with right ventricular diastolic dysfunction: Start date: 12/08/20 Start time: 16:43 Status: Acute Assessment and plan: LVEF 55-60% on echocardiogram 02/2019. Continue to monitor fluid status, intake and output and daily weights. (5) DVT prophylaxis: Start date: 12/08/20 Start time: 16:44 Status: Acute Assessment and plan: Subcutaneous lovenox for DVT ppx. (6) COVID-19 ruled out by laboratory testing: Start date: 12/08/20 Start time: 16:44 Status: Ruled-out Assessment and plan: negative covid (7) Discharge planning issues: Start date: 12/08/20 Start time: 16:44 Status: Acute Assessment and plan: She is working with PT. She has progressed to the point that PT no longer recommends SNIF, she would be able to go home with HH services. . Elly wants to get home when she is able. above case discussed with Dr. Carrizales who is in agreement. Subjective Subjective Patient reports: other (depressed, sad) Interval history since last seen: Patient lost brother today, she was very close with him. She is said and weepy. She also states she is sore. She is not ready to go home. She does have some wheezing. Encourage her to use IS. Possible discharge home tomorrow with HH services. Exam Narrative Exam Narrative: General: Elderly female, laying in hospital bed, overweight, awake and alert, answers questions appropriately. HEENT: Area of ecchymosis to lateral aspect of left eye, pupils equal and round, mucous membranes moist. Neck: supple, no JVD. Cardiovascular: heart sounds regular, nontachycardic. Chest: no ecchymosis over ribs on left. Tenderness on palpation of left chest wall. Respiratory: respirations appear even and unlabored. Rales noted bilaterally. GI: soft, nontender on palpation, nondistended, +BS. Extremities: no pitting edema to BLEs. Moves all 4 extremities freely. She is moving her right arm with less discomfort today. Objective Last Vital Signs Temp 36.6 C 12/08/20 11:21 Pulse 67 12/08/20 11:21 Resp 17 12/08/20 11:21 BP 116/71 12/08/20 11:21 Pulse Ox 96 12/08/20 11:21
--- NOTE | 2020-12-08 18:48 | PDOC.CMPRO ---
- If Service Date Differs Date of service: 12/08/20 Time of Service: 18:48 Care Management Progress Note S/O: Elly was lying in bed when CM met with her. She reported that she was very sad, as she just learned that her brother . Her brother, Brian, was in the ICU when he passed, and she was not able to visit him due to Covid 19 restrictions. She stated that she was just glad that he was no longer in pain. Elly stated that she has been working with PT and doing well, and is hoping to discharge home instead of to SNF. CM will continue to follow. A: 70 year old female admitted 12/04/20 for nausea, dehydration, hyperglycemia P: Referral was sent to [facility] for possible admission to SNF for a short rehab stay. Elly is agreeable to transfer to SNF for a few weeks but would much prefer to return home if able. Elly continues to be closely monitored acutely at this time, CM continues to follow.
[2020-12-08] MEDS: Donepezil 5 MG TAB 10 MG PO (19:32)
[2020-12-08] MEDS: Benzonatate 100 MG CAP PO (21:56)
[2020-12-08] MEDS: Insulin Glargine 300 UNITS/3 ML PEN 30 UNITS SC (21:59)
[2020-12-08] MEDS: LIDOCAINE Patch Removal 2 EACH TP (22:00)
[2020-12-09] MEDS: Acetaminophen 500 MG TAB 1000 MG PO ×2 (00:08→08:52)
[2020-12-09 00:19] VITALS: BP 130/76; PULSE 74; RESP 20; TEMP 36.6; O2SAT 94
[2020-12-09 00:20] VITALS: O2SAT 94
[2020-12-09 07:50] VITALS: BP 121/67; PULSE 66; RESP 14; TEMP 36.6; O2SAT 97
[2020-12-09] MEDS: Budesonide/Formoterol 160/4.5 6 GM 60 PUFF INH IH (08:27)
[2020-12-09] MEDS: Pantoprazole 40 MG TABCR PO (08:52)
[2020-12-09] MEDS: Nystatin POWDER 60 GM JAR TP (08:54)
[2020-12-09] MEDS: Insulin Aspart 300 UNITS/3 ML PEN SC ×4 (08:55→12:12)
--- NOTE | 2020-12-09 10:20 | PDOC.HHF2F ---
Home Health Certification Home Health Certification: 1. Encounter Date and Reason I certify that ZION NUNEZ was seen by Renee De Jesus on 12/09/20 and that I had a [id number] encounter with this patient that meets the physician face to face encounter requirements. 2. Clinical Findings Supporting Skilled Need and Homebound Status I certify that home health services are medically necessary, include either intermittent senior living and/or physical/speech therapy, and that this patient is homebound in that absences from the home require considerable and taxing effort and are infrequent or of short duration, or are attributable to the need to receive medical care. [X] (a) Attached documentation from encounter provides clinical findings supporting skilled need and homebound status (including what assistance patient requires to leave the home). The encounter with the patient was in whole, or in part, for the following medical condition, which is the primary reason for home health care: NAUSEA, DEHYDRATION, HYPERGLYCEMIA Prison: routine nursing for chronic disease management, medication oversight, and evaluation Physical and Occupational Therapy:routine evaluation and treatment COMMUNITY THEATER ACTOR: routine evaluation and management Homebound: patient is unable to safely leave the house unassisted d/t decreased strength and endurance 3. Certification and Authentication I certify that I composed the above information based on my clinical judgement relating to this patient's medical condition and, if applicable, clinical findings communicated to me by the NPP or inpatient physician who performed the Home Health Referral. All further orders will be obtained through (Community Based Physician - PCP)
--- NOTE | 2020-12-09 10:22 | DSE_ITS ---
Date of service: 12/09/20 Time of Service: 10:23 DS: Diagnosis Discharge Diagnosis (1) Ribs, multiple fractures: Status: Acute (2) Syncope: Status: Resolved (3) IDDM (insulin dependent diabetes mellitus): Status: Chronic (4) Acute on chronic congestive heart failure with right ventricular diastolic dysfunction: Status: Acute (5) COVID-19 ruled out by laboratory testing: Status: Ruled-out Discharge Plan Disposition Patient Disposition: HOME W/HOME HEALTH SERVICE Condition: Stable Discharge Details Reason For Visit: NAUSEA, DEHYDRATION, HYPERGLYCEMIA Admit Date/Time: 12/04/20 21:31 Admit Provider: Víctor Nolasco Attending Provider: Víctor Nolasco Primary Care Provider: Dharmesh Nolasco Hospital Course Hospital Course: This is a 70-year-old female who presented to the ED from home via EMS. She reports 2 days of elevated blood glucose at home greater than 300 with associated nausea and 2 episodes of emesis. She states when rising from a seated position this afternoon she got lightheaded and felt weak, fell backwards on the ground and struck her head with out a loss of consciousness. EMS was called and patient transported to the ER. She arrives complaining of mild posterior headache and left rib pain. Work up in the emergency department showed fractured ribs 3 & 4 on left, acute kidney injury and poorly controlled blood sugar. She was admitted to the medical/surgical unit for further evaluation and management. She responded to IV fluids with her kidney function improving. Her blood sugars improved with hydration and the addition of basal insulin, which she was not taking at home appropriately. Her pain was managed with parenteral apap and narcotics which were tapered to oral with good effect. adjustments made for nausea. She was followed by physical therapy and slowly re-ambulated. She was deemed safe for discharge to home and will be referred to home health for nursing, PT/OT and DEVELOPMENT OFFICER. she is eating and drinking well and bowels and bladder functioning well. Her pain managed. discharge discussed with Dr Carrizales Home Meds and New Rx's Prescriptions: New oxycodone 5 mg Tablet 2.5 - 5 mg PO Q6H PRN PRNQty: 10 RF: 0 lidocaine [Lidoderm] 5 % Adhesive Patch,Medicated 2 patch topical Q24H Qty: 15 RF: 0 Continued (DME) Wheeled walker with seat and basket Qty: 1 RF: 0 sucralfate 1 gram tablet 1 gm PO QACHS RF: 0 clotrimazole 1 % cream 1 applic topical TID Qty: 113 RF: 6 donepezil 5 mg tablet 10 mg PO QPM RF: 0 escitalopram oxalate 10 mg tablet 20 mg PO .NOON Qty: 30 RF: 11 promethazine 12.5 mg tablet 12.5 mg PO Q6H PRN (Reason: nausea and vomiting) Qty: 20 RF: 4 loperamide [Anti-Diarrheal (loperamide)] 2 mg tablet 2 mg PO Q6H PRN (Reason: loose stool) Qty: 60 RF: 2 (DME) Dexcom G4 Stain Sprayer Misc See Rx Instructions .ROUTE .MEDSUPPLY Qty: 1 RF: 0 (DME) Dexcom G4 Transmitter Device See Rx Instructions .ROUTE .MEDSUPPLY Qty: 1 RF: 0 (DME) compress.stocking,knee,reg,lrg misc See Dose Instructions .ROUTE .MEDSUPPLY Qty: 2 RF: 0 magnesium oxide 400 mg (241.3 mg magnesium) tablet 400 mg PO DAILY Qty: 30 RF: 6 albuterol sulfate [Ventolin HFA] 8 GM HFA aerosol inhaler 2 puff Inhalation Q4H PRN Qty: 1 RF: 4 (DME) Oxygen Tank See Dose Instructions .ROUTE .MEDSUPPLY Qty: 1 RF: 0 (DME) Face mask to deliver Oxygen Qty: 2 RF: 6 benzonatate [Tessalon Perles] 100 mg capsule 100 mg PO BID-TID PRN (Reason: cough) Qty: 90 RF: 3 nystatin 100,000 unit/gram powder 1 applic TP TID Qty: 60 RF: 0 Breo Ellipta 200-25 mcg/dose blister with device 1 inh IH DAILY PRNRF: 0 simvastatin 40 mg tablet 40 mg PO HS Qty: 30 RF: 11 spironolactone 25 mg tablet 25 mg PO DAILY Qty: 30 RF: 11 Jardiance 10 mg tablet 10 mg PO QAM Qty: 30 RF: 11 pantoprazole 40 mg tablet,delayed release (DR/EC) 40 mg PO DAILY Qty: 90 RF: 3 (DME) Oxygen Tank See Rx Instructions .ROUTE .MEDSUPPLY Qty: 1 RF: 0 cyclobenzaprine 5 mg tablet 5 mg PO TID PRN (Reason: muscle spasm) Qty: 90 RF: 6 acidophilus-pectin, citrus 25 million cell -100 mg tablet 1 tab PO TID Qty: 90 RF: 11 albuterol sulfate 2.5 mg /3 mL (0.083 %) solution for nebulization 2.5 mg Inhalation Q6H PRN (Reason: shortness of breath or wheezing) Qty: 10 RF: 6 furosemide 40 mg tablet 40 mg PO DAILY Qty: 30 RF: 11 (DME) pen needle, diabetic [Pen Needle] 31 gauge x 5/16 needle 1 ea Miscellaneous QID Qty: 4 RF: 12 (DME) Blood Glucose Test Strip 1 ea Miscellaneous TID Qty: 400 RF: 12 insulin lispro [Humalog KwikPen Insulin] 100 unit/mL insulin pen See Rx Instructions SC .per ss Qty: 15 RF: 11 (DME) lancets 28 gauge misc 1 ea Miscellaneous TID Qty: 400 RF: 12 epinephrine [EpiPen 2-Gordon] 0.3 MG/0.3 ML auto-injector 0.3 mg IM ONCE PRNRF: 0 Januvia 25 mg Tablet 25 mg PO QAM RF: 0 Ofev 100 mg Capsule 100 mg PO Q OTHER DAY Qty: 0 RF: 0 ketoconazole 2 % Cream 1 applic topical BID Qty: 30 RF: 0 zinc oxide 20 % Ointment 60 g topical PRN PRNQty: 0 RF: 0 vits A and D-white pet-lanolin Ointment 60 g topical PRN PRNQty: 0 RF: 0 Tresiba FlexTouch U-200 200 unit/mL (3 mL) insulin pen 30 unit subcut DAILY RF: 0 Discharge Instructions Instructions: Rib Fracture (DC) Additional Instructions: resume previous medication as directed. Wean off narcotic pain medication. monitor blood sugars while at home and review with pcp for medication adjustments. use incentive spirometer every 1-2 hours while awake as directed. Stand Alone Forms: Nursing Discharge Form Referrals: Dharmesh Nolasco SHELLF[employer] FARMING SUPERVISOR [Primary Care Provider] - 12/16/20 11:00 am Activity:: Activity as Tolerated Equipment/Supplies:: Blood Glucose Monitor Diet:: As Tolerated Discharge Orders Discharge Orders: Discharge Order (Routine); Ordered 12/09/20 Ordered By: Renee De Jesus DS: Summary Time Spent with Patient providing and/or coordinating discharge services: Greater than 30 minutes Status at Discharge Functional status at discharge: independent ambulation Overall status at discharge: patient is progressing back to baseline Mental Status: mental status grossly normal Speech and Movement: speech and movement normal Mood: congruent mood Affect: normal affect Exam Narrative Exam Narrative: General: Elderly female, overweight, awake and alert, answers q uestions appropriately. HEENT: Area of ecchymosis to lateral aspect of left eye, pupils equal and round, mucous membranes moist. Neck: supple, no JVD. Cardiovascular: heart sounds regular, nontachycardic. Chest: no ecchymosis over ribs on left. Tenderness on palpation of left chest wall. Respiratory: respirations appear even and unlabored. Rales noted bilaterally. GI: soft, nontender on palpation, nondistended, +BS. Extremities: no pitting edema to BLEs. Moves all 4 extremities freely. Psych Mental Status: mental status grossly normal Speech and Movement: speech and movement normal Mood: congruent mood Affect: normal affect DS: Data Vitals/I&O Vitals and I&O: Vital Signs Temperature 36.6 C 12/09/20 07:50 Temperature Source Tympanic 12/09/20 07:50 Pulse 66 12/09/20 07:50 Pulse Rhythm Regular 12/09/20 09:11 Pulse 70 12/04/20 22:50 Respiratory Rate 14 12/09/20 07:50 Respiratory Effort Non-Labored 12/09/20 09:11 Respiratory Depth Normal 12/09/20 09:11 Respiratory Pattern Normal 12/09/20 09:11 Blood Pressure 121/67 12/09/20 07:50 Blood Pressure Mean 76 12/04/20 22:45 Blood Pressure Position Supine 12/04/20 17:55 Pulse Oximetry 97 12/09/20 07:50 Oxygen Delivery Method Room Air 12/09/20 07:50 Oxygen Flow Rate 0 12/09/20 07:50 Pain Level 6 12/09/20 08:52 Comment 12/09/20 00:19 Intake & Output 12/08/20 12/08/20 12/09/20 11:59 23:59 11:59 Intake Total 440 / 1040 600 / 1040 630 / 630 Output Total 1000 / 2120 1120 / 2120 900 / 900 Balance -560 / -1080 -520 / -1080 -270 / -270 Weight 80 kg 78.9 kg Intake: IV 200 / 310 110 / 310 Oral 240 / 730 490 / 730 630 / 630 Output: Urine 1000 / 2120 1120 / 2120 900 / 900 Other: Urine Color Yellow Yellow Yellow Light [place] Urine Appearance Clear Clear Clear Urine Odor Normal None Comment pt voiding independently Voiding Methods Bedside Commode Toilet Toilet [facility] Medical History Abdominal pain Acute gastroenteritis (03/16/18) Acute kidney injury (nontraumatic) Acute pneumonitis Anxiety (03/16/18) Asthma Asthma Back pain CHF (congestive heart failure) Chronic constipation (03/16/18) Cognitive impairment (03/16/18) Mild, w/Memory Loss Cubital tunnel syndrome (03/16/18) Depressive disorder DKA (diabetic ketoacidoses) Dyspnea (03/16/18) Edema (03/16/18) Essential hypertension (07/17/13) Gastroesophageal reflux disease without esophagitis (03/16/18) History of shingles (03/16/18) Hyperlipemia Insulin dependent diabetes mellitus Internal derangement of right knee Interstitial lung disease (03/16/18) Pulm: Jedlovsky Long-term use of high-risk medication (03/16/18) Metabolic acidosis with normal anion gap and bicarbonate losses Migraine (04/03/14) Neck pain (03/16/18) 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 History of section Ligation of fallopian tube Thoracoscopic (R)Lung Bx (02/12/18) Family History Mother , aged 81 from dementia, per Elly Diabetes Essential hypertension CHF (congestive heart failure) Heart disease CHF/heart failure Dementia Father , aged 80 Diabetes Essential hypertension CAD (coronary artery disease) Heart disease [place] Hyperlipidemia Stroke Sister , aged 54 Diabetes Personal history of malignant neoplasm Lung Asthma Lung cancer Brother , of mesithelioma aged 62 Diabetes Essential hypertension Personal history of malignant neoplasm Lung, Prostate Hyperlipidemia Asthma Mesothelioma Brother , of PE following knee surgery age 69 Pulmonary embolus with infarction Daughter No problems noted. Son No problems noted. Social History Smoking/Tobacco Use Status: Never Smoking risk assessment performed?: Yes Alcohol Intake: never Details: monthly or less Drug use: Never Substance use type: does not use Adopted: No Caregiver/Support person: Yes Foster care: No Household members: none Housing: apartment Number of Children: 2 number of grandchildren: 5 Communication Needs: Hard of Hearing and Corrective Lenses Education Level: middle school Do you need help understanding health information?: Always current occupation: disabled Pets and animals: Yes Pets and animals: cat(s) Sexually active: No Do you think of yourself as: straight/heterosexual Current gender identity: female What is your relationship status?: How often do you talk on the phone with friends or family?: three or more times per week How often do you get together with friends or relatives?: three or more times per week How often do you attend islam or synagogue services?: 1-3 times per year Do you belong to any clubs or organized social groups?: no Panel score (0-1 are the most socially isolated patients): 1 What type of physical activity do you participate in: none and sedentary lifestyle Duration: < 15 minutes/day Frequency: 1-2 times per week Bibi/Caodaism: Mu-Ism Special bibi needs: No Agree to transfusion: Yes Seatbelt use: sometimes Helmet use: No Drive intox or ride w/intox box truck driver: No Water heater temp set <120 deg: Yes Working smoke detector in home: Yes Fire extinguisher in home: Yes Carbon monox detector in home: Yes Do you feel safe at home: Yes Do you feel safe in your relationship?: Yes Victim of physical abuse: No Victim of emotional abuse: No Victim of sexual abuse: No Would you like helpful sources: No Additional Social history: Lives in her own apartment in the [facility] near the hospital. Grandhien Knag used to live with her. His phone # is [phone]. Daughter Caridad lives in [place]. Son Himanshu lives in [facility], not as close to him. Gets together with brother Brian regularly who takes her shopping and goes for drives. Grandkids visit her home frequently.
[2020-12-09] MEDS: Lidocaine 5% Patch 2 PATCH TP (10:37)
[2020-12-09] MEDS: Escitalopram 20 MG TAB PO (12:11)
--- NOTE | 2020-12-09 17:23 | PDOC.CMDIS ---
LACE Index Scoring Tool - Questions: Length of Stay (in days): 4 - 6 Acuity (Admit via E.D.?): Yes Comorbidities: Diabetes w/o Complication, Congestive Heart Failure, Liver or Renal Disease E.D. 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 Elly is grieving the recent loss of her brother and wants to be home; she was cleared by PT and MD to do so. She will follow up with her PCP re: CGM and family and CM outreached to [facility] to review current orders and needs. Elly will transport via private vehicle with her grand-daughter. Patient/Family Education Needs: Review discharge instructions, discuss Ask Me Three. Services Needed at Discharge: Home Health Care Services ([facility] )
--- NOTE | 2020-12-11 16:50 | PT.INDS ---
Date of service: 12/11/20 PT Notes Visit Reasons: NAUSEA, DEHYDRATION, HYPERGLYCEMIA Inpatient Physical Therapy Discharge Summary Date: 12/11/20 Dates of Service: 12/06/2020 through 12/08/2020 This is a clinical summary of care provided on the duration of dates listed above. No charge was made in the completion of this documentation. Referring Doctor: Tre Carrizales MD PT Orders: PT CONSULT: D/C Non PT Dependent Precautions: Standard. Fall. Patient Profile/Admitting Diagnosis: Elly is a 70 old female presenting to the ER on 12/04/20 with reports of getting light headed and falling backwards, hitting her head and losing consciousness. She had posterior head pain and left sided trunk pain. She was admitted for nausea, dehydration, and hyperglycemia. Imaging of left shoulder and ribs indicated fracture of left ribs 3 and 4. She does complain of left shoulder, rib, and bilateral anterior chest pain. PMHX: Medical History Abdominal pain Acute gastroenteritis (03/16/18) Acute kidney injury (nontraumatic) Acute pneumonitis Anxiety (03/16/18) Asthma Asthma Back pain CHF (congestive heart failure) Chronic constipation (03/16/18) Cognitive impairment (03/16/18) Mild, w/Memory Loss Cubital tunnel syndrome (03/16/18) Depressive disorder DKA (diabetic ketoacidoses) Dyspnea (03/16/18) Edema (03/16/18) Essential hypertension (07/17/13) Gastroesophageal reflux disease without esophagitis (03/16/18) History of shingles (03/16/18) Hyperlipemia Insulin dependent diabetes mellitus Internal derangement of right knee Interstitial lung disease (03/16/18) Pulm: Jedlovsky Long-term use of high-risk medication (03/16/18) Metabolic acidosis with normal anion gap and bicarbonate losses Migraine (04/03/14) Neck pain (03/16/18) 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) Osteoporosis (03/16/18) Peripheral neuralgia Post herpetic neuralgia (03/16/18) Sepsis Shoulder pain left- surgery Total urinary incontinence Type II diabetes mellitus, uncontrolled Umbilical hernia Surgical History Appendectomy Arthroscopy, Left Shoulder Bilateral salpingectomy with oophorectomy section Cholecystectomy History of section Ligation of fallopian tube Thoracoscopic (R)Lung Bx (02/12/18) Social History/Home Situation: Lives in apartment with 4 [address], states grand daughter lives with her, has family members available; usually on 1L of O2 at home Current Functional Limitations: Decreased endurance, pain, dizzy Equipment Owned/DME: [facility] Subjective: NT. See most recent HEALTH UNDERWRITER notes. Objective: General Observation: NT. See most recent HEALTH UNDERWRITER notes. Mental Status: NT. See most recent HEALTH UNDERWRITER notes. Pain: NT. See most recent HEALTH UNDERWRITER notes. ROM: Right Upper Extremity: R UE ROM Within functional limits Left Upper Extremity: L UE ROM impaired shoulder flexion and abduction otherwise within functional limits Right Lower Extremity: R LE ROM Within functional limits Left Lower Extremity: L LE ROM Within functional limits Strength: Right Upper Extremity: Grossly 5/5 R UE strength Left Upper Extremity: Shoulder flexion 2/5, shoulder abduction 2/5, shoulder ER 4+5, shoulder IR 5/5, elbow flexion5/5, elbow extension 5/5 Right Lower Extremity: Grossly 5/5 R LE strength Left Lower Extremity: Grossly 5/5 L LE strength Sensation: Intact Bed Mobility/Transfers: Independent with all bed mobility tasks Gait: Up to 100 feet x 2 without an AD with FWB on B LE requiring only SBA. Balance: Static Sitting: Normal Dynamic Sitting: Good Static Standing: Fair Dynamic Standing: Poor Assessment: Patient is a 70 year old female referred to physical therapy services with the diagnosis of nausea, dehydration, and hyperglycemia. She demonstrates improved functional mobility level during this epsiode of care. Goals: Goals X1 week 1. Supine-Sit Independent MET 2. Sit-Supine Independent MET 3. Sit-Stand Independent MET 4. Stand-Sit Independent MET 5. Bed-Chair Independent NOT MET 6. Chair-Bed Independent NOT MET 7. Gait Supervision with FWW 150ft NOT MET 8. Stairs Supervision with bilateral rails 4 steps NOT MET 9. Independent with home exercise program NOT MET 10. Balance improve to good NOT MET DISCHARGE RECOMMENDATIONS: HH PT TREATMENT CODE/TIME: NC Thank you for the opportunity to participate in the care of this patient. Iva Roldan PT, DPT, CLT [facility] [place], [place]
== END 2020-12-09 13:08 | disposition home health service (06) | DRG 183 ==
LOC: ER 21:49 → MS 23:13
PROVIDERS: Emergency Medicine; Internal Medicine; Nurse Practitioner; Admitting Provider General Practice; Emergency Provider Emergency Medicine; PCP Nurse Practitioner Family; Visit Provider General Practice
DX: S22.42XA Multiple fractures of ribs, left side, initial encounter for closed fracture (principal); I50.33 Acute on chronic diastolic (congestive) heart failure; N17.9 Acute kidney failure, unspecified; E87.2 Acidosis; I95.9 Hypotension, unspecified; E86.0 Dehydration; M25.512 Pain in left shoulder; W18.39XA Other fall on same level, initial encounter; J45.909 Unspecified asthma, uncomplicated; E11.65 Type 2 diabetes mellitus with hyperglycemia; F41.9 Anxiety disorder, unspecified; I50.9 Heart failure, unspecified; F32.9 Major depressive disorder, single episode, unspecified; K59.09 Other constipation; I11.0 Hypertensive heart disease with heart failure; E78.5 Hyperlipidemia, unspecified; K21.9 Gastro-esophageal reflux disease without esophagitis; Z79.899 Other long term (current) drug therapy; G43.909 Migraine, unspecified, not intractable, without status migrainosus; R33.9 Retention of urine, unspecified; R55 Syncope and collapse; Z79.4 Long term (current) use of insulin; J43.1 Panlobular emphysema; J84.10 Pulmonary fibrosis, unspecified; Z20.822 Contact with and (suspected) exposure to COVID-19
CPT/HCPCS: 36415; 36416; 71250; 80048; 80051; 80053; 82805; 82962; 93005; 94640; 96361; 96374; 96375; 96376; 97110; 97162; 97530; 99222; 99232; 99233; 99239; 99285; U0003; 70450; 72125; 73030; 74176; 81003; 83735; 84484; 85025; 93010; J0131; J1650; J2405; J3490

== ENCOUNTER 2020-12-17 12:15 | Outpatient (REF) | payer OTHER, MEDICAID, SELFPAY ==
[2020-12-17 16:20] LABS: Hemoglobin A1C 12.1 % (<5.7)
== END 2020-12-17 12:16 | disposition home or self-care (01) ==
LOC: LBN 12:15
PROVIDERS: PCP Nurse Practitioner Family; Visit Provider Nurse Practitioner Family
DX: E11.65 Type 2 diabetes mellitus with hyperglycemia (principal)
CPT/HCPCS: 83036

== ENCOUNTER 2020-12-18 01:47 | Outpatient (CLI) | payer OTHER, MEDICAID, SELFPAY ==
[2020-12-18 10:26] LABS: ALT 18 U/L (14-59); AST 12 U/L (15-37); Albumin 3.6 g/dL (3.4-5.0); Alkaline Phosphatase 143 U/L (46-116); Bilirubin, Direct 0.08 mg/dL (0.00-0.20); Bilirubin, Total 0.4 mg/dL (0.2-1.0); Calculated LDL 118 mg/dL (<100); Cholesterol 210 mg/dL (<200); HDL Cholesterol 51 mg/dL (40-60); Total Protein 7.1 g/dL (6.4-8.2); Triglyceride 207 mg/dL (<150)
== END 2020-12-18 01:48 | disposition home or self-care (01) ==
PROVIDERS: Internal Medicine; PCP Nurse Practitioner Family; Visit Provider Nurse Practitioner Family
DX: E11.65 Type 2 diabetes mellitus with hyperglycemia (principal); R79.89 Other specified abnormal findings of blood chemistry
CPT/HCPCS: 36415; 80061; 80076

== ENCOUNTER 2021-01-25 11:22 | Outpatient (CLI) | payer OTHER, MEDICAID, SELFPAY ==
[2021-01-25] MEDS: Inhaler, Assist Device 1 EACH MC (13:51)
[2021-01-25] MEDS: Albuterol HFA 18 GM 200 PUFF INH IH (13:51)
--- NOTE | 2021-01-27 08:21 | PFT_ITS ---
Date of service: 01/25/21 Time of Service: 12:58 Pulmonary Function Test Result Interpretation Spirometry: No evidence of obstructive airways disease no bronchodilator response Lung Volumes: Mild restriction Diffusion Capacity: Unable to carry out acceptable DLCO maneuver Impression Mild restrictive lung disease. Patient unable to carry out acceptable DLCO maneuver. Compared to previous study from 01/27/2011 and 11/13/2019, there is an initial 700 cc decline in FVC but there is a slight, 90 cc increase from 2021 n ow in FVC. FEV1 had a similar pattern, with an initial 550 cc decline but a more recent of 120 cc increase in FEV1 from 2019. Total lung capacity has slightly decreased but it is mostly due to the significant decrease in residual volume. Clinical Correlation therefore is recommended.
== END 2021-01-25 11:23 | disposition home or self-care (01) ==
LOC: RT 11:23
PROVIDERS: PCP Nurse Practitioner Family; Visit Provider Internal Medicine
DX: J84.9 Interstitial pulmonary disease, unspecified (principal); R06.09 Other forms of dyspnea
CPT/HCPCS: 94060; 94726

== ENCOUNTER 2021-03-17 11:22 | Inpatient (IN) | payer OTHER, MEDICAID, SELFPAY ==
[2021-03-17] VITALS (74 sets, daily range): BP systolic 103–133; BP diastolic 42–96; PULSE 77–99; RESP 10–23; TEMP 35.8–36.7; O2SAT 97–100
--- NOTE | 2021-03-17 11:15 | RT.EKG_ITS ---
APPROVED REPORT Exam: Resting ECG Reason for Exam: Vomiting, Hx CAD Patient Location: E HR:93 bpm ECG Measurements Heart Rate 93 AXIS FL 158 P 17 QRSd 101 QRS -24 QT 366 T 121 QTc 456 Conclusion Sinus rhythm...normal P axis, V-rate 60- 99 LVH with secondary repolarization abnormality...multi-LVH criteria, abnrm ST-T Borderline ST elevation, inferior leads...ST >0.06mV, II III aVF no significant change compared to 11/12
[2021-03-17] MEDS: Lactated Ringers 1,000 ML 250 ML IV (11:46)
[2021-03-17 11:55] LABS: Abs Immature Grans 0.06 10^3/uL (0.0-0.06); Absolute Basophil Count 0.09 10^3/uL (0.0-0.2); Absolute Lymphocyte Count 2.19 10^3/uL (1.2-3.4); Absolute Neutrophil Count 7.66 10^3/uL (1.2-6.7); BE (Venous) -6 mmol/L (-2-3); Basophils % 0.8; Eosinophils % 0.9; HCO3 (Venous) 22 mmol/L (23-28); HGB 15.7 g/dL (11.2-15.7); Immature Grans % 0.6; Lymphocytes % 20.5; MCH 29.6 pg (27.0-33.0); MCHC 32.7 % (32.0-36.0); MCV 90.6 fL (80-95); MPV 10.4 fL (8.0-11.0); Monocytes % 5.6; Neutrophils % 71.6; Nucleated RBC 0 %; O2 Sat (Venous) 60 %; Platelet Count 370 10^3/uL (130-400); RDW 13.6 % (11.7-14.6); RDW-SD 45.2 fL; TCO2 (Venous) 20 mmol/L (24-29); pCO2 (Venous) 55 mmHg (41-51); pH (Venous) 7.21 (7.31-7.41); pO2 (Venous) 37 mmHg
--- NOTE | 2021-03-17 12:04 | ED.GENADUL_ITS ---
Discharge Plan Disposition Patient Disposition: [facility] INPATIENT Condition: Stable Discharge Details Clinical Impression: DKA (diabetic ketoacidoses), Vomiting Admit Date/Time: 03/17/21 12:56 Admit Provider: Fredy Weaver Attending Provider: Fredy Weaver Primary Care Provider: Dharmesh Nolasco ED Provider: Margie Cortez Medical Decision Making 70-year-old female presents the ER with past medical history of insulin- dependent diabetes, CHF, COPD, asthma, GERD, chronic constipation, acute kidney injury, GI with vomiting every day for the last 2 weeks. Patient states that she is unable to keep anything down for the last 2 weeks. She tried to eat some tomato soup last night and vomited it up. She denies any diarrhea. She has not had any insulin for the last 2 days. She does live alone and self administers her medications. She was given Zofran prior to arrival by EMS. No nausea, BGL was 480 prior to arrival. 1249: Patient is in DKA her anion gap is 18.1, she is also dehydrated GFR is 29. 1 previously runs in the 50s, glucose is 574, bilirubin is elevated at 1.2. Discussed with Dr. Weaver who is on for hospitalist regarding patient case and details he agrees to accept patient for admission and will place holding orders at this time. Initially 10 units of subcu regular insulin was ordered this was held at this time pending fluid resuscitation and reassessment. Insulin 10 units of subcu held at this time pending fluid resuscitation. VBG 7.21, CO2 55, bicarb 22 CO2 is 20 O2 sat 60% base excess -6 Repeat CBG is 508 patient has received 500 cc LR instructed staff submarine warfare officer to infuse another 500 cc. No insulin has been given at this point for fluid resuscitation Instructed staff submarine warfare officer to repeat CBG every hour. Patient transferred up to the floor hemodynamically stable intractable vomiting, hyperglycemia. I spent greater than 35 minutes addressing this patient's acute life threatening illness. This time was spent engaged in actions directly related to the patient's care. Failure ti initiate these interventions would have likely resulted in clinically significant or life threatening deterioration in the patients condition. HPI General Mode of arrival: EMS . Date/Time Provider Initiated Documentation: 03/17/21 11:23 . Limitations to Documentation: no limitations . Information obtained by: patient, RN notes reviewed and old records reviewed . HPI Narrative: 70-year-old female presents the ER with past medical history of insulin-dependent diabetes, CHF, COPD, asthma, GERD, chronic constipation, acute kidney injury, GI with vomiting every day for the last 2 weeks. Patient states that she is unable to keep anything down for the last 2 weeks. She tried to eat some tomato soup last night and vomited it up. She denies any diarrhea. She has not had any insulin for the last 2 days. She does live alone and self administers her medications. She was given Zofran prior to arrival by EMS. No nausea, BGL was 480 prior to arrival. Related Data Home Medications Medication Instructions Recorded Confirmed albuterol sulfate [Ventolin HFA] 2 puff INHALATION Q4H PRN #1 10/09/14 03/17/21 inhaler compress.stocking,knee,reg,lrg #2 each 10/29/18 03/17/21 Oxygen #1 each 11/29/18 03/04/21 Wheeled walker with seat and basket #1 ea 02/07/19 03/17/21 Face mask to deliver Oxygen #2 each 04/23/19 03/17/21 fluticasone furoate 200 1 inh IH DAILY PRN 02/14/20 03/17/21 mcg-vilanterol 25 mcg/dose inhalation powder epinephrine [EpiPen 2-Gordon] 0.3 mg IM ONCE PRN 06/12/20 03/17/21 Oxygen #1 each 06/25/20 03/17/21 cyclobenzaprine 5 mg tablet 5 mg PO TID PRN #90 tab 07/27/20 03/17/21 acidophilus 25 million 1 tab PO TID #90 tab 08/03/20 03/17/21 cell-pectin, citrus 100 mg tablet albuterol sulfate 2.5 mg INHALATION Q6H PRN #10 vial 08/03/20 03/17/21 furosemide 40 mg tablet 40 mg PO DAILY #30 tab 08/03/20 03/17/21 pen needle, diabetic 31 gauge x #4 box 08/03/20 03/17/2103/07 insulin lispro 100 unit/mL See Rx Instructions SC .per ss #15 09/29/20 03/17/21 subcutaneous pen ml donepezil 5 mg tablet 5 mg PO QPM tab 11/20/20 03/17/21 escitalopram oxalate 10 mg tablet 20 mg PO .NOON #30 tab-cap 11/20/20 03/17/21 loperamide 2 mg tablet 2 mg PO Q6H PRN #60 tab 11/20/20 03/17/21 empagliflozin 10 mg tablet 10 mg PO QAM #30 tab 12/25/20 03/17/21 diphenhydramine HCl 50 mg capsule 50 mg PO QHS PRN #90 cap 01/22/21 03/17/21 flash glucose scanning reader #1 ea 02/23/21 03/17/21 flash glucose sensor #1 ea 02/23/21 03/17/21 insulin degludec 200 unit/mL (3 44 unit SUBCUT DAILY #9 ml 03/04/21 03/17/21 mL) subcutaneous pen oxycodone 5 mg tablet 2.5 - 5 mg PO Q6H PRN PRN #60 tab 03/04/21 03/17/21 MDD 20mg pantoprazole 40 mg tablet,delayed 40 mg PO DAILY #90 tab 03/08/21 03/17/21 release simvastatin 40 mg tablet 40 mg PO HS #30 tab 03/08/21 03/17/21 spironolactone 25 mg tablet 25 mg PO DAILY #30 tab 03/08/21 03/17/21 blood sugar diagnostic #400 strip 03/10/21 03/17/21 lancets 28 gauge #400 ea 03/10/21 03/17/21 nintedanib [Ofev] 100 mg PO BID 03/17/21 03/17/21 Previous Rx's Medication Instructions Recorded compress.stocking,knee,reg,lrg #2 each 10/29/18 Wheeled walker with seat and basket #1 ea 02/07/19 Face mask to deliver Oxygen #2 each 04/23/19 cyclobenzaprine 5 mg tablet 5 mg PO TID PRN #90 tab 07/27/20 acidophilus 25 million 1 tab PO TID #90 tab 08/03/20 cell-pectin, citrus 100 mg tablet albuterol sulfate 2.5 mg INHALATION Q6H PRN #10 vial 08/03/20 furosemide 40 mg tablet 40 mg PO DAILY #30 tab 08/03/20 pen needle, diabetic 31 gauge x #4 box 10/12/20 5/16 insulin lispro 100 unit/mL See Rx Instructions SC .per ss #15 09/29/20 subcutaneous pen ml escitalopram oxalate 10 mg tablet 20 mg PO .NOON #30 tab-cap 11/20/20 loperamide 2 mg tablet 2 mg PO Q6H PRN #60 tab 11/20/20 empagliflozin 10 mg tablet 10 mg PO QAM #30 tab 12/25/20 diphenhydramine HCl 50 mg capsule 50 mg PO QHS PRN #90 cap 01/22/21 flash glucose scanning reader #1 ea 02/23/21 flash glucose sensor #1 ea 02/23/21 insulin degludec 200 unit/mL (3 44 unit SUBCUT DAILY #9 ml 03/04/21 mL) subcutaneous pen oxycodone 5 mg tablet 2.5 - 5 mg PO Q6H PRN PRN #60 tab 03/04/21 MDD 20mg pantoprazole 40 mg tablet,delayed 40 mg PO DAILY #90 tab 03/08/21 release simvastatin 40 mg tablet 40 mg PO HS #30 tab 03/08/21 spironolactone 25 mg tablet 25 mg PO DAILY #30 tab 03/08/21 blood sugar diagnostic #400 strip 03/10/21 lancets 28 gauge #400 ea 03/10/21 Allergies Allergy/AdvReac Type Severity Reaction Status Date / Time aspirin Allergy Unknown HIVES, Verified 03/17/21 11:33 flip out diclofenac Allergy Unknown RASH Verified 03/17/21 11:33 latex Allergy Unknown SKIN Verified 03/17/21 11:33 BREAKDOWN NSAIDS (Non-Steroidal Allergy Unknown HIVES, Verified 03/17/21 11:33 Anti-Inflamma VOMITING morphine AdvReac Unknown VOMITING Verified 03/17/21 11:33 General Stated Complaint: Diabetes ALVIN: 3 Review of Systems All systems reviewed & are unremarkable except as noted in HPI and below Constitutional Constitutional: Reports as per HPI, Reports chills, Denies frequent falls, Reports lethargy, Reports poor appetite and Reports weakness Cardiovascular Cardiovascular: Denies chest pain, Denies pedal edema, Denies edema and Denies dyspnea Respiratory Respiratory: Denies change in phlegm color, Denies chest congestion and Denies dyspnea Gastrointestinal Gastrointestinal: Reports abdominal pain, Reports nausea and Reports vomiting Neurologic Neurologic: Denies frequent falls and Reports weakness [facility] Medical History Abdominal pain Acute gastroenteritis (03/16/18) Acute kidney injury (nontraumatic) Acute pneumonitis Anxiety (03/16/18) Asthma Asthma Back pain CHF (congestive heart failure) Chronic constipation (03/16/18) Cognitive impairment (03/16/18) Mild, w/Memory Loss Cubital tunnel syndrome (03/16/18) Depressive disorder DKA (diabetic ketoacidoses) Dyspnea (03/16/18) Edema (03/16/18) Essential hypertension (07/17/13) Gastroesophageal reflux disease without esophagitis (03/16/18) History of shingles (03/16/18) Hyperlipemia Insulin dependent diabetes mellitus Internal derangement of right knee Interstitial lung disease (03/16/18) Pulm: Jedlovsky Long-term use of high-risk medication (03/16/18) Metabolic acidosis with normal anion gap and bicarbonate losses Migraine (04/03/14) Neck pain (03/16/18) 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 History of section Ligation of fallopian tube Thoracoscopic (R)Lung Bx (02/12/18) Family History Mother , aged 81 from dementia, [place] Diabetes Essential hypertension CHF (congestive heart failure) Heart disease CHF/heart failure Dementia Father , aged 80 Diabetes Essential hypertension CAD (coronary artery disease) Heart disease [place] Hyperlipidemia Stroke Sister , aged 54 Diabetes Personal history of malignant neoplasm Lung Asthma Lung cancer Brother , of mesithelioma aged 62 Diabetes Essential hypertension Personal history of malignant neoplasm Lung, Prostate Hyperlipidemia Asthma Mesothelioma Brother , of PE following knee surgery age 69 Pulmonary embolus with infarction Daughter No problems noted. Son No problems noted. Social History Smoking/Tobacco Use Status: Never Smoking risk assessment performed?: Yes Alcohol Intake: current Alcohol Intake frequency: holidays/special occasions only Details: monthly or less Drug use: Never Substance use type: does not use Adopted: No Caregiver/Support person: Yes Foster care: No Household members: none Housing: apartment Number of Children: 2 number of grandchildren: 5 Communication Needs: Hard of Hearing and Corrective Lenses Education Level: middle school Do you need help understanding health information?: Always current occupation: disabled Pets and animals: Yes Pets and animals: cat(s) Sexually active: No Do you think of yourself as: straight/heterosexual Current gender identity: female What is your relationship status?: How often do you talk on the phone with friends or family?: three or more times per week How often do you get together with friends or relatives?: three or more times per week How often do you attend christianity or yazidi services?: 1-3 times per year Do you belong to any clubs or organized social groups?: no Panel score (0-1 are the most socially isolated patients): 1 What type of physical activity do you participate in: none and sedentary lifestyle Duration: < 15 minutes/day Frequency: 1-2 times per week Bibi/Orthodoxy: Taoist Special bibi needs: No Agree to transfusion: Yes Seatbelt use: sometimes Helmet use: No Drive intox or ride w/intox bull driver: No Water heater temp set <120 deg: Yes Working smoke detector in home: Yes Fire extinguisher in home: Yes Carbon monox detector in home: Yes Do you feel safe at home: Yes Do you feel safe in your relationship?: Yes Victim of physical abuse: No Victim of emotional abuse: No Victim of sexual abuse: No Would you like helpful sources: No Exam Narrative Exam Narrative: Constitutional: Alert and oriented x3. Appears stated age. Normal body habitus. Head: Normocephalic, no trauma. Eyes: Pupils PERRLA, Red reflex noted, EOM's intact. Eyelids symmetrical without lesions, discharge, or swelling. ENT: Bilateral TM's WNL, External ear normal to inspection, no mastoid TTP, swelling, or erythema, Nasal turbinates WNL, no nasal discharge. Normal dentition, Posterior pharynx WNL, no exudate. Chest: RRR, Normal S1, S2, distal pulses intact. Resp: Lungs clear to auscultation bilaterally, no wheezes, rales, or rhonchi. Abdomen: Soft, nondistended tender to palpation midepigastrium. Does have a history of cholecystic Musculoskeletal: Normal gait, 5/5 strength to all four extremities. Generalized weakness. Skin: No suspicious rashes or lesions. Capillary refill less than 2 sec. no swelling or edema noted to bilateral lower extremities. Neurologic: Cranial nerves II-XII intact. Alert and oriented x 3. DTR's intact. Hematologic/Lymphatic: No ecchymosis, no lymphadenopathy. Course Vital Signs Vital signs: Vital Signs Temperature 36.7 C 03/17/21 11:24 Pulse 97 H 03/17/21 11:24 Respiratory Rate 18 03/17/21 11:24 Blood Pressure 111/96 H 03/17/21 11:24 Pulse Oximetry 99 03/17/21 11:24 Temperature 36.7 C 03/17/21 11:24 Temperature Source Skin 03/17/21 11:24 Pulse 77 03/17/21 11:28 Respiratory Rate 18 03/17/21 11:24 Respiratory Effort Non-Labored 03/17/21 11:33 Blood Pressure 111/96 H 03/17/21 11:28 Blood Pressure Mean 100 03/17/21 11:28 Blood Pressure Position Supine 03/17/21 11:24 Pulse Oximetry 100 03/17/21 11:29 Oxygen Delivery Method Nasal Cannula 03/17/21 11:24 Oxygen Flow Rate 2 03/17/21 11:24 Pain Level 0 03/17/21 11:24 Lab/Test Results Lab/Test Results: Laboratory Tests Range/Units 03/17/21 03/17/21 11:45 11:45 WBC (4.4-10.8) 10^3/uL 10.70 RBC (3.93-5.22) 10^6/uL 5.30 H Hgb (11.2-15.7) g/dL 15.7 Hct (36.0-46.0) % 48.0 H MCV (80-95) fL 90.6 MCH (27.0-33.0) pg 29.6 MCHC (32.0-36.0) % 32.7 RDW (11.7-14.6) % 13.6 Plt Count (130-400) 10^3/uL 370 MPV (8.0-11.0) fL 10.4 Immature Gran % 0.6 Neutrophils % 71.6 Lymphocytes % 20.5 Monocytes % 5.6 Eosinophils % 0.9 Basophils % 0.8 Nucleated RBC % % 0 Absolute Neutrophils (1.2-6.7) 10^3/uL 7.66 H Absolute Lymphocytes (1.2-3.4) 10^3/uL 2.19 Absolute Monocytes (0.1-0.8) 10^3/uL 0.60 Absolute Eosinophils (0.0-0.7) 10^3/uL 0.10 Absolute Basophils (0.0-0.2) 10^3/uL 0.09 VBG pH (7.31-7.41) 7.21 L VBG pCO2 (41-51) mmHg 55 H VBG pO2 mmHg 37 VBG HCO3 (23-28) mmol/L 22 L VBG Total CO2 (24-29) mmol/L 20 L VBG O2 Saturation % 60 VBG Base Excess (-2-3) mmol/L -6 L
[2021-03-17 12:21] LABS: ALT 16 U/L (14-59); AST 11 U/L (15-37); Albumin 4.2 g/dL (3.4-5.0); Alkaline Phosphatase 133 U/L (46-116); Anion Gap 18.1 mmol/L (3-11); BUN 37 mg/dL (7-18); Bilirubin, Total 1.2 mg/dL (0.2-1.0); CO2 22.9 mmol/L (21.0-32.0); CREATININE 1.9 mg/dL (0.55-1.02); Calcium 9.7 mg/dL (8.5-10.1); Chloride 92 mmol/L (98-107); Estimated GFR 26.21 (mL/min/1.73m2); Magnesium 2.8 mg/dL (1.8-2.4); Sodium 133 mmol/L (136-145); Total Protein 8.3 g/dL (6.4-8.2)
[2021-03-17 12:24] LABS: Glucose 574 mg/dL (74-106); Troponin I < 0.05 ng/mL (<0.06)
[2021-03-17 12:31] LABS: NT-proBNP 144 pg/mL (<300)
[2021-03-17] MEDS: Lactated Ringers 500 ML IV (12:55)
[2021-03-17 13:02] LABS: Source Nasal/Nares
[2021-03-17 13:15] LABS: Lipase 79 U/L (73-393)
[2021-03-17 13:36] LABS: Bilirubin Negative (Negative); Blood Negative (Negative); Clarity Clear (Clear); Glucose 500 mg/dL (Negative); Ketones 40 mg/dL (Negative); Leukocyte Esterase Negative (Negative); Nitrite Negative (Negative); Urobilinogen 0.2 EU/dL (Up TO 0.2); pH 5.5 (5-8)
[2021-03-17 14:37] LABS: Anion Gap 15.8 mmol/L (3-11); BUN 34 mg/dL (7-18); CO2 25.2 mmol/L (21.0-32.0); CREATININE 1.7 mg/dL (0.55-1.02); Calcium 9.9 mg/dL (8.5-10.1); Chloride 92 mmol/L (98-107); Glucose 484 mg/dL (74-106); Potassium 4.2 mmol/L (3.5-5.1); Sodium 133 mmol/L (136-145)
[2021-03-17] MEDS: POTASSIUM CHLORIDE/0.9% NACL 1,000 ML 100 MEQ IV (14:52)
[2021-03-17] MEDS: INSULIN REGULAR IN 0.9 % NACL 100 UNIT/100 ML BAG IV (14:52)
[2021-03-17 16:05] LABS: COVID-19 PCR Negative (Negative)
[2021-03-17 16:38] LABS: Anion Gap 14.6 mmol/L (3-11); BUN 36 mg/dL (7-18); CO2 25.4 mmol/L (21.0-32.0); CREATININE 1.6 mg/dL (0.55-1.02); Chloride 95 mmol/L (98-107); Estimated GFR 31.96 (mL/min/1.73m2); Glucose 409 mg/dL (74-106); Potassium 4.7 mmol/L (3.5-5.1); Sodium 135 mmol/L (136-145)
[2021-03-17] MEDS: Heparin 5,000 UNITS/ML VIAL 5000 UNITS SC ×2 (17:28→22:10)
[2021-03-17] MEDS: Escitalopram 10 MG TAB 20 MG PO (17:28)
--- NOTE | 2021-03-17 20:15 | HPE_ITS ---
Date of service: 03/17/21 Time of Service: 15:30 Assessment and Plan Assessment and plan (1) DKA (diabetic ketoacidoses): Status: Acute Assessment and plan: Admitted to the ICU for insulin drip per protocol. Likely d/t 2 days w/o insulin because of N/V. (2) Nausea & vomiting: Status: Resolved Assessment and plan: Occurs with oral intake; has been recurrent. Likely gastroparesis. Reglan 5mg po QAC and HS initiated. Qualifiers: Vomiting type: bilious vomiting Qualified Code(s): R11.14 - Bilious vomiting (3) CHF (congestive heart failure): Status: Chronic Assessment and plan: Chronic. Restart daily lasix in AM Holding Spironolactone. (4) COPD (chronic obstructive pulmonary disease): Status: Chronic Assessment and plan: Stable w/o exacerbation. Cont Symbicort (substitution for home Breo Ellipta). PRN albuterol MDI. Qualifiers: COPD type: emphysema Emphysema type: panlobular Qualified Code(s): J43.1 - Panlobular emphysema (5) Interstitial lung disease: Status: Chronic History of Present Illness History of Present Illness Chief Complaint: Nausea/vomitting Narrative: This is a 70-year-old female with past medical history of insulin-dependent diabetes, CHF, COPD, asthma, GERD, chronic constipation, acute kidney injury. She presneted to the ED with c/o vomiting every day for the last 2 weeks.? Patient states that she is unable to keep anything down. She tried to eat some tomato soup last night and vomited it up.? Emesis only when taking in oral food or liquids. She denies any diarrhea.? She has not had any insulin for the last 2 d ays.? She does live alone and self administers her medications.? She was given Zofran prior to arrival. She denies fever/chills. No abd pain. She states she has had 1-2 loose stools. Review of Systems All systems reviewed & are unremarkable except as noted in HPI and below PFSH Medical History Abdominal pain Acute gastroenteritis (03/16/18) Acute kidney injury (nontraumatic) Acute pneumonitis Anxiety (03/16/18) Asthma Asthma Back pain CHF (congestive heart failure) Chronic constipation (03/16/18) Cognitive impairment (03/16/18) Mild, w/Memory Loss Cubital tunnel syndrome (03/16/18) Depressive disorder DKA (diabetic ketoacidoses) Dyspnea (03/16/18) Edema (03/16/18) Essential hypertension (07/17/13) Gastroesophageal reflux disease without esophagitis (03/16/18) History of shingles (03/16/18) Hyperlipemia Insulin dependent diabetes mellitus Internal derangement of right knee Interstitial lung disease (03/16/18) Pulm: Trevondlshashank Long-term use of high-risk medication (03/16/18) Metabolic acidosis with normal anion gap and bicarbonate losses Migraine (04/03/14) Neck pain (03/16/18) 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 History of section Ligation of fallopian tube Thoracoscopic (R)Lung Bx (02/12/18) Family History Mother , aged 81 from dementia, per Elly Diabetes Essential hypertension CHF (congestive heart failure) Heart disease CHF/heart failure Dementia Father , aged 80 Diabetes Essential hypertension CAD (coronary artery disease) Heart disease [place] Hyperlipidemia Stroke Sister , aged 54 Diabetes Personal history of malignant neoplasm Lung Asthma Lung cancer Brother , of mesithelioma aged 62 Diabetes Essential hypertension Personal history of malignant neoplasm Lung, Prostate Hyperlipidemia Asthma Mesothelioma Brother , of PE following knee surgery age 69 Pulmonary embolus with infarction Daughter No problems noted. Son No problems noted. Social History Smoking/Tobacco Use Status: Never Smoking risk assessment performed?: Yes Alcohol Intake: current Alcohol Intake frequency: holidays/special occasions only Details: monthly or less Drug use: Never Substance use type: does not use Adopted: No Caregiver/Support person: Yes Foster care: No Household members: none Housing: apartment Number of Children: 2 number of grandchildren: 5 Communication Needs: Hard of Hearing and Corrective Lenses Education Level: middle school Do you need help understanding health information?: Always current occupation: disabled Pets and animals: Yes Pets and animals: cat(s) Sexually active: No Do you think of yourself as: straight/heterosexual Current gender identity: female What is your relationship status?: How often do you talk on the phone with friends or family?: three or more times per week How often do you get together with friends or relatives?: three or more times per week How often do you attend episcopalian or rastafarian services?: 1-3 times per year Do you belong to any clubs or organized social groups?: no Panel score (0-1 are the most socially isolated patients): 1 What type of physical activity do you participate in: none and sedentary lifestyle Duration: < 15 minutes/day Frequency: 1-2 times per week Bibi/Baptist: Voodoo Special bibi needs: No Agree to transfusion: Yes Seatbelt use: sometimes Helmet use: No Drive intox or ride w/intox school boat driver: No Water heater temp set <120 deg: Yes Working smoke detector in home: Yes Fire extinguisher in home: Yes Carbon monox detector in home: Yes Do you feel safe at home: Yes Do you feel safe in your relationship?: Yes Victim of physical abuse: No Victim of emotional abuse: No Victim of sexual abuse: No Would you like helpful sources: No Meds Allergies and Home Medications Allergies Allergy/AdvReac Type Severity Reaction Status Date / Time aspirin Allergy Unknown HIVES, Verified 03/17/21 11:33 flip out diclofenac Allergy Unknown RASH Verified 03/17/21 11:33 latex Allergy Unknown SKIN Verified 03/17/21 11:33 BREAKDOWN NSAIDS (Non-Steroidal Allergy Unknown HIVES, Verified 03/17/21 11:33 Anti-Inflamma VOMITING morphine AdvReac Unknown VOMITING Verified 03/17/21 11:33 Home Medications Medication Instructions Recorded Confirmed Type albuterol sulfate [Ventolin HFA] 2 puff INHALATION Q4H PRN #1 10/09/14 03/17/21 History inhaler compress.stocking,knee,reg,lrg #2 each 10/29/18 03/17/21 Rx Oxygen #1 each 11/29/18 03/04/21 History Wheeled walker with seat and basket #1 ea 02/07/19 03/17/21 Rx Face mask to deliver Oxygen #2 each 04/23/19 03/17/21 Rx fluticasone furoate 200 1 inh IH DAILY PRN 02/14/20 03/17/21 History mcg-vilanterol 25 mcg/dose inhalation powder epinephrine [EpiPen 2-Gordon] 0.3 mg IM ONCE PRN 06/12/20 03/17/21 History Oxygen #1 each 06/25/20 03/17/21 History cyclobenzaprine 5 mg tablet 5 mg PO TID PRN #90 tab 07/27/20 03/17/21 Rx acidophilus 25 million 1 tab PO TID #90 tab 08/03/20 03/17/21 Rx cell-pectin, citrus 100 mg tablet albuterol sulfate 2.5 mg INHALATION Q6H PRN #10 vial 08/03/20 03/17/21 Rx furosemide 40 mg tablet 40 mg PO DAILY #30 tab 08/03/20 03/17/21 Rx pen needle, diabetic 31 gauge x #4 box 08/03/20 03/17/21 Rx /16 insulin lispro 100 unit/mL See Rx Instructions SC .per ss #15 09/29/20 03/17/21 Rx subcutaneous pen ml donepezil 5 mg tablet 5 mg PO QPM tab 11/20/20 03/17/21 History escitalopram oxalate 10 mg tablet 20 mg PO .NOON #30 tab-cap 11/20/20 03/17/21 Rx loperamide 2 mg tablet 2 mg PO Q6H PRN #60 tab 11/20/20 03/17/21 Rx empagliflozin 10 mg tablet 10 mg PO QAM #30 tab 12/25/20 03/17/21 Rx diphenhydramine HCl 50 mg capsule 50 mg PO QHS PRN #90 cap 01/22/21 03/17/21 Rx flash glucose scanning reader #1 ea 02/23/21 03/17/21 Rx flash glucose sensor #1 ea 02/23/21 03/17/21 Rx insulin degludec 200 unit/mL (3 44 unit SUBCUT DAILY #9 ml 03/04/21 03/17/21 Rx mL) subcutaneous pen oxycodone 5 mg tablet 2.5 - 5 mg PO Q6H PRN PRN #60 tab 03/04/21 03/17/21 Rx MDD 20mg pantoprazole 40 mg tablet,delayed 40 mg PO DAILY #90 tab 03/08/21 03/17/21 Rx release simvastatin 40 mg tablet 40 mg PO HS #30 tab 03/08/21 03/17/21 Rx spironolactone 25 mg tablet 25 mg PO DAILY #30 tab 03/08/21 03/17/21 Rx blood sugar diagnostic #400 strip 03/10/21 03/17/21 Rx lancets 28 gauge #400 ea 03/10/21 03/17/21 Rx nintedanib [Ofev] 100 mg PO BID 03/17/21 03/17/21 History Exam Const General: cooperative and no acute distress Nutritional Appearance: overweight Orientation: alert, oriented to person and oriented to place HENAZ Head: normocephalic and atraumatic Eyes Sclera: sclerae normal Pupils: PERRL Resp Effort & Inspection: normal respiratory effort Auscultation: clear to auscultation bilaterally Cardio Rate: regular rate Rhythm: regular rhythm Heart Sounds: S1 normal and S2 normal GI Inspection: obesity Palpation: soft and nontender Auscultation: normal bowel sounds Neuro General: no focal motor deficits Speech: speech normal Extrem General: no pedal edema and no calf tenderness Psych Appearance: grossly normal Mood: congruent mood Affect: normal affect Results Labs Result diagrams: 03/18/21 06:52 03/18/21 06:52 Labs: Laboratory Results - last 24 hr 03/17/21 03/17/21 03/17/21 11:45 11:45 11:45 WBC 10.70 RBC 5.30 H Hgb 15.7 Hct 48.0 H MCV 90.6 MCH 29.6 MCHC 32.7 RDW 13.6 Plt Count 370 MPV 10.4 Immature Gran % 0.6 Neutrophils % 71.6 Lymphocytes % 20.5 Monocytes % 5.6 Eosinophils % 0.9 Basophils % 0.8 Nucleated RBC % 0 Absolute Neutrophils 7.66 H Absolute Lymphocytes 2.19 Absolute Monocytes 0.60 Absolute Eosinophils 0.10 Absolute Basophils 0.09 VBG pH VBG pCO2 VBG pO2 VBG HCO3 VBG Total CO2 VBG O2 Saturation VBG Base Excess Sodium 133 L Potassium 4.0 Chloride 92 L Carbon Dioxide 22.9 Anion Gap 18.1 H BUN 37 H Creatinine 1.9 H Estimated GFR/1.73 m2 26.21 Glucose 574 H* Calcium 9.7 Magnesium 2.8 H Total Bilirubin 1.2 H AST 11 L ALT 16 Alkaline Phosphatase 133 H Troponin I < 0.05 NT-Pro-B Natriuret Pep 144 Total Protein 8.3 H Albumin 4.2 Lipase 79 Urine Color Urine Clarity Urine pH Ur Specific [place] Urine Protein Urine Ketones Urine Blood Urine Nitrite Urine Bilirubin Urine Urobilinogen Ur Leukocyte Esterase Urine Glucose COVID-19 Source SARS-CoV-2 (PCR) 03/17/21 03/17/21 03/17/21 11:45 12:56 13:28 WBC RBC Hgb Hct MCV MCH MCHC RDW Plt Count MPV Immature Gran % Neutrophils % Lymphocytes % Monocytes % Eosinophils % Basophils % Nucleated RBC % Absolute Neutrophils Absolute Lymphocytes Absolute Monocytes Absolute Eosinophils Absolute Basophils VBG pH 7.21 L VBG pCO2 55 H VBG pO2 37 VBG HCO3 22 L VBG Total CO2 20 L VBG O2 Saturation 60 VBG Base Excess -6 L Sodium Potassium Chloride Carbon Dioxide Anion Gap BUN Creatinine Estimated GFR/1.73 m2 Glucose Calcium Magnesium Total Bilirubin AST ALT Alkaline Phosphatase Troponin I NT-Pro-B Natriuret Pep Total Protein Albumin Lipase Urine Color Yellow Urine Clarity Clear Urine pH 5.5 Ur Specific [place] 1.010 Urine Protein Negative Urine Ketones 40 H Urine Blood Negative Urine Nitrite Negative Urine Bilirubin Negative Urine Urobilinogen 0.2 Ur Leukocyte Esterase Negative Urine Glucose 500 H COVID-19 Source Nasal/nares SARS-CoV-2 (PCR) Negative 03/17/21 03/17/21 03/17/21 13:33 16:20 19:15 WBC RBC Hgb Hct MCV MCH MCHC RDW Plt Count MPV Immature Gran % Neutrophils % Lymphocytes % Monocytes % Eosinophils % Basophils % Nucleated RBC % Absolute Neutrophils Absolute Lymphocytes Absolute Monocytes Absolute Eosinophils Absolute Basophils VBG pH VBG pCO2 VBG pO2 VBG HCO3 VBG Total CO2 VBG O2 Saturation VBG Base Excess Sodium 133 L 135 L Cancelled Potassium 4.2 4.7 Cancelled Chloride 92 L 95 L Cancelled Carbon Dioxide 25.2 25.4 Cancelled Anion Gap 15.8 H 14.6 H Cancelled BUN 34 H 36 H Cancelled Creatinine 1.7 H 1.6 H Cancelled Estimated GFR/1.73 m2 29.80 31.96 Cancelled Glucose 484 H 409 H Cancelled Calcium 9.9 10.0 Cancelled Magnesium Total Bilirubin AST ALT Alkaline Phosphatase Troponin I NT-Pro-B Natriuret Pep Total Protein Albumin Lipase Urine Color Urine Clarity Urine pH Ur Specific [place] Urine Protein Urine Ketones Urine Blood Urine Nitrite Urine Bilirubin Urine Urobilinogen Ur Leukocyte Esterase Urine Glucose COVID-19 Source SARS-CoV-2 (PCR) Last Vital Signs Temp 35.8 C L 03/17/21 14:35 Pulse 83 03/17/21 19:16 Resp 19 03/17/21 19:16 BP 113/73 03/17/21 19:16 Pulse Ox 99 03/17/21 19:16 COVID-19 Screening Have you, or household traveled for leisure in last 14 days?: No Had IN PERSON contact w/suspected or confirmed C-19 person: No
[2021-03-17] MEDS: Simvastatin 40 MG TAB PO (20:17)
[2021-03-17] MEDS: Donepezil 5 MG TAB PO (20:17)
[2021-03-17] MEDS: Normal Saline Flush 10 ML SYR IVP (20:20)
[2021-03-17 21:19] LABS: Anion Gap 11.6 mmol/L (3-11); BUN 31 mg/dL (7-18); CO2 27.4 mmol/L (21.0-32.0); CREATININE 1.4 mg/dL (0.55-1.02); Calcium 9.7 mg/dL (8.5-10.1); Chloride 98 mmol/L (98-107); Estimated GFR 37.28 (mL/min/1.73m2); Glucose 230 mg/dL (74-106); Potassium 4.1 mmol/L (3.5-5.1); Sodium 137 mmol/L (136-145)
[2021-03-17 21:41] LABS: Troponin I < 0.05 ng/mL (<0.06)
[2021-03-17] MEDS: DEXTROSE 5%-0.45% SALINE 1,000 ML 100 ML IV (23:14)
[2021-03-18] VITALS (42 sets, daily range): BP systolic 98–125; BP diastolic 40–79; PULSE 64–110; RESP 12–24; TEMP 35.9–36.5; O2SAT 96–100
[2021-03-18] MEDS: POTASSIUM CHLORIDE/0.9% NACL 1,000 ML 100 MEQ IV (01:57)
[2021-03-18] MEDS: Heparin 5,000 UNITS/ML VIAL 5000 UNITS SC ×3 (06:03→21:38)
[2021-03-18 07:23] LABS: Abs Immature Grans 0.02 10^3/uL (0.0-0.06); Absolute Basophil Count 0.04 10^3/uL (0.0-0.2); Absolute Eosinophil Count 0.24 10^3/uL (0.0-0.7); Absolute Lymphocyte Count 2.33 10^3/uL (1.2-3.4); Absolute Monocyte Count 0.65 10^3/uL (0.1-0.8); Basophils % 0.6; Eosinophils % 3.4; HCT 41.6 % (36.0-46.0); HGB 13.7 g/dL (11.2-15.7); Immature Grans % 0.3; Lymphocytes % 32.9; MCH 29.8 pg (27.0-33.0); MCHC 32.9 % (32.0-36.0); MCV 90.6 fL (80-95); MPV 10.2 fL (8.0-11.0); Monocytes % 9.2; Neutrophils % 53.6; Nucleated RBC 0 %; Platelet Count 270 10^3/uL (130-400); RBC 4.59 10^6/uL (3.93-5.22); RDW 13.6 % (11.7-14.6); RDW-SD 45.3 fL; WBC 7.08 10^3/uL (4.4-10.8)
[2021-03-18 07:28] LABS: Absolute Neutrophil Count 3.79 10^3/uL (1.2-6.7)
[2021-03-18 07:35] LABS: Anion Gap 9.1 mmol/L (3-11); BUN 22 mg/dL (7-18); CO2 24.9 mmol/L (21.0-32.0); CREATININE 1.2 mg/dL (0.55-1.02); Calcium 8.8 mg/dL (8.5-10.1); Chloride 105 mmol/L (98-107); Estimated GFR 44.54 (mL/min/1.73m2); Glucose 130 mg/dL (74-106); Potassium 3.9 mmol/L (3.5-5.1); Sodium 139 mmol/L (136-145)
[2021-03-18] MEDS: Furosemide 20 MG/2 ML VIAL IVP (08:17)
[2021-03-18] MEDS: Pantoprazole 40 MG TABCR PO (08:17)
[2021-03-18] MEDS: Budesonide/Formoterol 160/4.5 6 GM 60 PUFF INH IH ×2 (08:36→19:48)
[2021-03-18] MEDS: DEXTROSE 5%-0.45% SALINE 1,000 ML 80 ML IV (08:40)
--- NOTE | 2021-03-18 09:24 | PDOC.CMIN ---
- If Service Date Differs Date of service: 03/18/21 Time of Service: 09:24 Care Management Initial Assess REASON FOR HOSPITALIZATION:: Nausea and vomiting PAST MEDICAL HISTORY/PAST SURGICAL HISTORY:: Medical History . Abdominal pain. Acute gastroenteritis (03/16/18). Acute kidney injury (nontraumatic). Acute pneumonitis. Anxiety (03/16/18). Asthma. Asthma. Back pain. CHF (congestive heart failure). Chronic constipation (03/16/18). Cognitive impairment (03/16/18). Mild, w/Memory Loss. Cubital tunnel syndrome (03/16/18). Depressive disorder. DKA (diabetic ketoacidoses). Dyspnea (03/16/18). Edema (03/16/18). Essential hypertension (07/17/13). Gastroesophageal reflux disease without esophagitis (03/16/18). History of shingles (03/16/18). Hyperlipemia. Insulin dependent diabetes mellitus. Internal derangement of right knee. Interstitial lung disease (03/16/18). Pulm: Bertin. Long-term use of high-risk medication (03/16/18). Metabolic acidosis with normal anion gap and bicarbonate losses. Migraine (04/03/14). Neck pain (03/16/18). 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 Osteoporosis (03/16/18). Peripheral neuralgia. Post herpetic neuralgia (03/16/18). Sepsis. Shoulder pain. left- surgery. Total urinary incontinence. Type II diabetes mellitus, uncontrolled. Umbilical hernia. Surgical History . Appendectomy. Arthroscopy, Shoulder. left. Bilateral salpingectomy with oophorectomy. section. Cholecystectomy. Age 20. . History of section. Ligation of fallopian tube. Thoracoscopic (R)Lung Bx (02/12/18) PREVIOUS FUNCTIONAL STATUS/SOCIAL/FAMILY SUPPORTS:: Elly lives alone at [facility] in [facility]. Her son Himanshu lives locally and is supportive. She has five grand children. One of her grandsons, Jorge Luis, is quite supportive and a strong advocate. Her granddaughter Chanel is also very supportive and checks on Elly daily. CURRENT FUNCTIONAL STATUS:: Elly was sitting up in bed when CM met with her. She was pleasant and engaged readily with CM, known to her from previous admissions. Elly stated that she has been admitted again because of vomiting. She stated that the doctor told her that she is not emptying her stomach and that is why she vomits. Her understanding is that he will order new medicine to correct the problem. Elly also talked about her brother Brian who at [facility] a couple of months ago and how much she misses him. Elly shared that she and Brian were close and that she is also close to her other siblings. ADVANCE DIRECTIVES:: [facility] on file Has patient been provided with info about the portal/API?: Yes Did the patient sign up for the portal?: Yes (previously) CODE STATUS:: Full Code INSURANCE COVERAGE / FINANCIAL ISSUES:: [facility] MCR replacement. Medicaid CURRENT HOME/COMMUNITY SERVICES/EQUIPMENT:: Elly uses a cane PRIMARY CARE PHYSICIAN:: Dharmesh Nolasco POTENTIAL DISCHARGE NEEDS:: Follow up with PCP and discharge plan of care PATIENT/FAMILY EDUCATION NEEDS:: Review of discharge instructions, medications, follow up plan, activity, limitations, Ask Me Three TRANSPORTATION:: via private vehicle with family PLAN:: Elly will likely return home with no new services. She will follow up with her PCP and discharge plan of care and transport with family. CM will continue to support Elly and assess for discharge planning needs.
[2021-03-18] MEDS: Insulin Glargine 300 UNITS/3 ML PEN 15 UNITS SC (09:42)
--- NOTE | 2021-03-18 09:55 | W.PM.PROGNOT ---
Date of Service Date of service: 03/18/21 Time of Service: 10:02 Assessment and Plan Assessment and plan (1) DKA (diabetic ketoacidoses): Status: Acute Assessment and plan: Glucose this AM: in the 120's. Decrease insulin drip to 1unit/hr and initiate Lantus 15 units daily. She is on degludec (Tresiba) at home. Stop drip 1 hour after initiating Lantus. Diabetic diet. Lispro insulin SS correction dosing QAC. (2) Nausea & vomiting: Status: Resolved Assessment and plan: Likely gastroparesis. Reglan 5mg po QACHS Qualifiers: Vomiting type: bilious vomiting Qualified Code(s): R11.14 - Bilious vomiting (3) CHF (congestive heart failure): Status: Chronic Assessment and plan: Stable w/o exacerbation; euvolemic appearing. Lasix 40mg po daily. Restart spironolactone in AM (4) COPD (chronic obstructive pulmonary disease): Status: Chronic Assessment and plan: Stable w/o exacerbation. Cont Symbicort (subst. for home Breo Ellipta). PRN albuterol MDI. Qualifiers: COPD type: emphysema Emphysema type: panlobular Qualified Code(s): J43.1 - Panlobular emphysema Subjective Subjective Patient reports: feels better and afebrile; denies nausea, vomiting and shortness of breath Interval history since last seen: Feels generally tired and weak. Exam Const General: cooperative and no acute distress Nutritional Appearance: obese Orientation: awake, oriented to person and oriented to place Eyes Sclera: sclerae normal Pupils: PERRL Resp Effort & Inspection: normal respiratory effort Auscultation: clear to auscultation bilaterally and diminished lung sounds Cardio Rate: regular rate Rhythm: regular rhythm Heart Sounds: S1 normal and S2 normal GI Palpation: soft and nontender Extrem General: no pedal edema and no calf tenderness Psych Appearance: grossly normal Mental Status: mental status grossly normal Affect: normal affect Attitude: cooperative Objective Last Vital Signs Temp 36.2 C L 03/18/21 04:00 Pulse 64 03/18/21 06:01 Resp 15 03/18/21 06:01 BP 106/48 L 03/18/21 06:01 Pulse Ox 98 03/18/21 08:30 Laboratory Results - last 24 hr 03/17/21 03/17/21 03/17/21 11:45 11:45 11:45 WBC 10.70 RBC 5.30 H Hgb 15.7 Hct 48.0 H MCV 90.6 MCH 29.6 MCHC 32.7 RDW 13.6 Plt Count 370 MPV 10.4 Immature Gran % 0.6 Neutrophils % 71.6 Lymphocytes % 20.5 Monocytes % 5.6 Eosinophils % 0.9 Basophils % 0.8 Nucleated RBC % 0 Absolute Neutrophils 7.66 H Absolute Lymphocytes 2.19 Absolute Monocytes 0.60 Absolute Eosinophils 0.10 Absolute Basophils 0.09 VBG pH VBG pCO2 VBG pO2 VBG HCO3 VBG Total CO2 VBG O2 Saturation VBG Base Excess Sodium 133 L Potassium 4.0 Chloride 92 L Carbon Dioxide 22.9 Anion Gap 18.1 H BUN 37 H Creatinine 1.9 H Estimated GFR/1.73 m2 26.21 Glucose 574 H* Calcium 9.7 Magnesium 2.8 H Total Bilirubin 1.2 H AST 11 L ALT 16 Alkaline Phosphatase 133 H Troponin I < 0.05 NT-Pro-B Natriuret Pep 144 Total Protein 8.3 H Albumin 4.2 Lipase 79 Urine Color Urine Clarity Urine pH Ur Specific [place] Urine Protein Urine Ketones Urine Blood Urine Nitrite Urine Bilirubin Urine Urobilinogen Ur Leukocyte Esterase Urine Glucose COVID-19 Source SARS-CoV-2 (PCR) 03/17/21 03/17/21 03/17/21 11:45 12:56 13:28 WBC RBC Hgb Hct MCV MCH MCHC RDW Plt Count MPV Immature Gran % Neutrophils % Lymphocytes % Monocytes % Eosinophils % Basophils % Nucleated RBC % Absolute Neutrophils Absolute Lymphocytes Absolute Monocytes Absolute Eosinophils Absolute Basophils VBG pH 7.21 L VBG pCO2 55 H VBG pO2 37 VBG HCO3 22 L VBG Total CO2 20 L VBG O2 Saturation 60 VBG Base Excess -6 L Sodium Potassium Chloride Carbon Dioxide Anion Gap BUN Creatinine Estimated GFR/1.73 m2 Glucose Calcium Magnesium Total Bilirubin AST ALT Alkaline Phosphatase Troponin I NT-Pro-B Natriuret Pep Total Protein Albumin Lipase Urine Color Yellow Urine Clarity Clear Urine pH 5.5 Ur Specific [place] 1.010 Urine Protein Negative Urine Ketones 40 H Urine Blood Negative Urine Nitrite Negative Urine Bilirubin Negative Urine Urobilinogen 0.2 Ur Leukocyte Esterase Negative Urine Glucose 500 H COVID-19 Source Nasal/nares SARS-CoV-2 (PCR) Negative 03/17/21 03/17/21 03/17/21 13:33 16:20 19:15 WBC RBC Hgb Hct MCV MCH MCHC RDW Plt Count MPV Immature Gran % Neutrophils % Lymphocytes % Monocytes % Eosinophils % Basophils % Nucleated RBC % Absolute Neutrophils Absolute Lymphocytes Absolute Monocytes Absolute Eosinophils Absolute Basophils VBG pH VBG pCO2 VBG pO2 VBG HCO3 VBG Total CO2 VBG O2 Saturation VBG Base Excess Sodium 133 L 135 L Cancelled Potassium 4.2 4.7 Cancelled Chloride 92 L 95 L Cancelled Carbon Dioxide 25.2 25.4 Cancelled Anion Gap 15.8 H 14.6 H Cancelled BUN 34 H 36 H Cancelled Creatinine 1.7 H 1.6 H Cancelled Estimated GFR/1.73 m2 29.80 31.96 Cancelled Glucose 484 H 409 H Cancelled Calcium 9.9 10.0 Cancelled Magnesium Total Bilirubin AST ALT Alkaline Phosphatase Troponin I NT-Pro-B Natriuret Pep Total Protein Albumin Lipase Urine Color Urine Clarity Urine pH Ur Specific [place] Urine Protein Urine Ketones Urine Blood Urine Nitrite Urine Bilirubin Urine Urobilinogen Ur Leukocyte Esterase Urine Glucose COVID-19 Source SARS-CoV-2 (PCR) 03/17/21 03/17/21 03/18/21 21:00 21:00 06:00 WBC RBC Hgb Hct MCV MCH MCHC RDW Plt Count MPV Immature Gran % Neutrophils % Lymphocytes % Monocytes % Eosinophils % Basophils % Nucleated RBC % Absolute Neutrophils Absolute Lymphocytes Absolute Monocytes Absolute Eosinophils Absolute Basophils VBG pH VBG pCO2 VBG pO2 VBG HCO3 VBG Total CO2 VBG O2 Saturation VBG Base Excess Sodium 137 Cancelled Potassium 4.1 Cancelled Chloride 98 Cancelled Carbon Dioxide 27.4 Cancelled Anion Gap 11.6 H Cancelled BUN 31 H Cancelled Creatinine 1.4 H Cancelled Estimated GFR/1.73 m2 37.28 Cancelled Glucose 230 H D Cancelled Calcium 9.7 Cancelled Magnesium Total Bilirubin AST ALT Alkaline Phosphatase Troponin I < 0.05 NT-Pro-B Natriuret Pep Total Protein Albumin Lipase Urine Color Urine Clarity Urine pH Ur Specific [place] Urine Protein Urine Ketones Urine Blood Urine Nitrite Urine Bilirubin Urine Urobilinogen Ur Leukocyte Esterase Urine Glucose COVID-19 Source SARS-CoV-2 (PCR) 03/18/21 03/18/21 06:52 06:52 WBC 7.08 D RBC 4.59 Hgb 13.7 Hct 41.6 MCV 90.6 MCH 29.8 MCHC 32.9 RDW 13.6 Plt Count 270 D MPV 10.2 Immature Gran % 0.3 Neutrophils % 53.6 Lymphocytes % 32.9 Monocytes % 9.2 Eosinophils % 3.4 Basophils % 0.6 Nucleated RBC % 0 Absolute Neutrophils 3.79 Absolute Lymphocytes 2.33 Absolute Monocytes 0.65 Absolute Eosinophils 0.24 Absolute Basophils 0.04 VBG pH VBG pCO2 VBG pO2 VBG HCO3 VBG Total CO2 VBG O2 Saturation VBG Base Excess Sodium 139 Potassium 3.9 Chloride 105 Carbon Dioxide 24.9 Anion Gap 9.1 BUN 22 H D Creatinine 1.2 H Estimated GFR/1.73 m2 44.54 Glucose 130 H D Calcium 8.8 Magnesium Total Bilirubin AST ALT Alkaline Phosphatase Troponin I NT-Pro-B Natriuret Pep Total Protein Albumin Lipase Urine Color Urine Clarity Urine pH Ur Specific [place] Urine Protein Urine Ketones Urine Blood Urine Nitrite Urine Bilirubin Urine Urobilinogen Ur Leukocyte Esterase Urine Glucose COVID-19 Source SARS-CoV-2 (PCR)
[2021-03-18 09:58] LABS: Magnesium 2.2 mg/dL (1.8-2.4)
[2021-03-18] MEDS: Escitalopram 10 MG TAB 20 MG PO (11:42)
[2021-03-18] MEDS: Furosemide 40 MG TAB PO (11:42)
[2021-03-18] MEDS: Metoclopramide 10 MG TAB 5 MG PO ×3 (11:42→21:38)
[2021-03-18] MEDS: Insulin Aspart 300 UNITS/3 ML PEN SC ×2 (12:01→17:00)
--- NOTE | 2021-03-18 12:50 | IN_ITS ---
Date of service: 03/18/21 Time of Service: 12:50 PT Notes Visit Reasons: Diabetic Ketoacidosis Inpatient Physical Therapy Evaluation Date: 03/18/21 Referring Doctor: Fredy Weaver MD PT Orders: PT CONSULT: Eval/Treat Precautions: Standard. Fall. Activity as tolerated. Patient Profile/Admitting Diagnosis:??Elly is a 70 old female with congestive heart failure, COPD, and interstitial lung disease presenting to the ED on 03/17/2021 with complaints of nausea vomiting that has persisted for the 2 weeks preceding admission. She is diagnosed with diabetic ketoacidosis with referral to physical therapy today for extended stay weakness. PMHX: Medical History? Abdominal pain Acute gastroenteritis (03/16/18) Acute kidney injury (nontraumatic) Acute pneumonitis Anxiety (03/16/18) Asthma Asthma Back pain CHF (congestive heart failure) Chronic constipation (03/16/18) Cognitive impairment (03/16/18) Mild, w/Memory Loss Cubital tunnel syndrome (03/16/18) Depressive disorder DKA (diabetic ketoacidoses) Dyspnea (03/16/18) Edema (03/16/18) Essential hypertension (07/17/13) Gastroesophageal reflux disease without esophagitis (03/16/18) History of shingles (03/16/18) Hyperlipemia Insulin dependent diabetes mellitus Internal derangement of right knee Interstitial lung disease (03/16/18) Pulm: JedlovskyLong-term use of high-risk medication (03/16/18) Metabolic acidosis with normal anion gap and bicarbonate losses Migraine (04/03/14) Neck pain (03/16/18) 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 Appendectomy Arthroscopy, Shoulder leftBilateral salpingectomy with oophorectomy section Cholecystectomy Age 20. of section Ligation of fallopian tube Thoracoscopic (R)Lung Bx (02/12/18) Social History/Home Situation: Lives in apartment with 4 steps to enter. Has good family support. Independent with single-point cane at baseline. No falls since last discharge from this hospital on 12/11/2020. Equipment Owned/DME: [facility] Subjective:?Complained of being weak and a little lightheaded during ambulation activity. Hopeful that she can go home by tomorrow. Agreeable to having home health PT when discharged. Objective:? General Observation: Telemetry monitoring in place. Oxygen supplementation at 2 L/min via NC. Mental Status: Alert and oriented x4 Pain: None reported ROM: Right Upper Extremity: Shoulder Flexion WFL. Shoulder abduction WFL. Elbow flexion WFL. Wrist flexion WFL. Functional opening and closing of hand WFL. Left Upper Extremity: Shoulder Flexion WFL. Shoulder abduction WFL. Elbow flexion WFL. Wrist flexion WFL. Functional opening and closing of hand WFL. Right Lower Extremity: Hip flexion WFL. Hip abduction WFL. Knee flexion WFL. Ankle dorsiflexion WFL. Ankle plantarflexion WFL. Left Lower Extremity: Hip flexion WFL. Hip abduction WFL. Knee flexion WFL. Ankle dorsiflexion WFL. Ankle plantarflexion WFL. Strength: Right Upper Extremity: Shoulder flexors 4/5. Shoulder abductors 4/5. Elbow flexors 4/5. Elbow extensors 4/5. Insurance Underwriting Assistant strong. Left Upper Extremity: Shoulder flexors 4/5. Shoulder abductors 4/5. Elbow flexors 4/5. Elbow extensors 4/5. Insurance Underwriting Assistant strong. Right Lower Extremity: Hip flexors 4-/5. Hip abductors 4-/5. Knee flexors 4-/5. Knee extensors 4-/5. Ankle dorsiflexors 4-/5. Ankle plantarflexors 4-/5. Left Lower Extremity:Hip flexors 4-/5. Hip abductors 4-/5. Knee flexors 4-/5. Knee extensors 4-/5. Ankle dorsiflexors 4-/5. Ankle plantarflexors 4-/5. Sensation:?Intact as to pain and light pressure in bilateral upper and lower extremities. Bed Mobility/Transfers:? Rolling standby assist Supine to sit standby assist Sit to supine standby assist Sit to stand contact-guard assist Stand to sit contact-guard assist Bed to chair contact-guard assist Chair to bed contact-guard assist Gait:?Guided patient through level surface ambulation requiring single-point cane with full weight bearing requiring contact-guard assist and wheelchair followed by PT for about 50 feet with decreased melvin, complaints of mild lightheadedness, and mild S OB on 2 L of oxygen per minute. Oxygen saturation levels stayed within normal limits and reported and no pain throughout. Minimal verbal cueing provided for directional changes and obstacle negotiation. Balance:? Static Sitting: Normal Dynamic Sitting: Normal Static Standing: Fair Dynamic Standing: Fair Special Tests: Mobility Limitations Standardized Measure [facility]-P[facility] 6 clicks Basic Mobility Inpatient Short Form: Raw Score: 21 ? CMS Score: 29% deficit? ? ? Informed Consent/Education:? Patient was instructed in purpose of PT consult and plan of care and agreeable to proceed with PT interventions to achieve goals set below. Assessment: Elly demonstrates difficulty with walking, generalized weakness, decreased activity tolerance, impaired balance, and increased risk for falls due to admitting diagnosis. Patient will benefit from home health PT services in order to progress mobility level using least restrictive assistive ambulatory device, assess home safety, identify additional equipment needs, and establish a functional maintenance program that will increase ability of patient to remain at home. Patient presents with clinical signs and symptoms consistent with current/admitting diagnoses that have resulted to mobility limitations, gait instability, generalized weakness, and impairment of motor control as demonstrated by the following impairment level findings: 1. Decreased strength to B LE major muscle groups 2. Impaired standing balance 3. Impaired activity tolerance Impairments are contributing to the following functional limitations: 1. Inability to safely ambulate without assistive device and physical assistance 2. Increase completion time for mobility ADL performance 3. Increased fall risk 4. Inability to negotiate steps alone safely Patient is assessed as a 13571 moderate complexity based on the following: History: 70-year-old female with past medical history, functional limitations, and impairment level findings as above Examination:Demonstrable impairment in strength, balance, and range of motion with [facility] deficit score of 29% indicating ADL performance decline Presentation: Evolving Decision Makin moderate complexity Goals: Goals X1 week 1. Supine-Sit Independent 2. Sit-Supine Independent 3. Sit-Stand Independent with SPC 4. Stand-Sit Independent with SPC 5. Bed-Chair Independent with SPC 6. Chair-Bed Independent with SPC 7. Gait independent with FWW 150ft with SPC 8. Stairs independent with bilateral rails 4 steps with SPC 9. Independent with home exercise program 10. To achieve good static and dynamic standing balance to reduce fall risk Plan of Care/Treatment Plan: 1-2x/day, 7 days/week x 1 week. Plan of care has been reviewed with the LANDSCAPE MANAGEMENT TECHNICIAN providing the service under Physical Therapy direction. Initiate Physical Therapy intervention for strengthening, bed mobility, transfers, gait, stairs, balance training, use of assistive device. DISCHARGE RECOMMENDATIONS: Patient will benefit from home health PT services in order to progress mobility level using least restrictive assistive ambulatory device, assess home safety, identify additional equipment needs, and establish a functional maintenance program that will increase ability of patient to remain at home. TREATMENT CODE/TIME: 46377 x 20 minutes beginning at 12:50 PM. Thank you for the opportunity to participate in the care of this patient. Iva Roldan PT, DPT, CLT [facility] [place], [place]
[2021-03-18] MEDS: Simvastatin 40 MG TAB PO (19:47)
[2021-03-18] MEDS: Nystatin POWDER 15 GM JAR TP (19:47)
[2021-03-18] MEDS: Donepezil 5 MG TAB PO (19:48)
[2021-03-19] VITALS (7 sets, daily range): BP systolic 100–123; BP diastolic 46–75; PULSE 73–87; RESP 16–20; TEMP 36–36.5; O2SAT 94–100
[2021-03-19] MEDS: Insulin Aspart 300 UNITS/3 ML PEN 8 UNITS SC (00:29)
[2021-03-19] MEDS: Heparin 5,000 UNITS/ML VIAL 5000 UNITS SC ×3 (05:12→22:13)
[2021-03-19 07:37] LABS: Anion Gap 9.8 mmol/L (3-11); BUN 25 mg/dL (7-18); CO2 25.2 mmol/L (21.0-32.0); CREATININE 1.3 mg/dL (0.55-1.02); Calcium 8.8 mg/dL (8.5-10.1); Chloride 100 mmol/L (98-107); Estimated GFR 40.61 (mL/min/1.73m2); Glucose 436 mg/dL (74-106); Magnesium 2.1 mg/dL (1.8-2.4); Sodium 135 mmol/L (136-145)
[2021-03-19] MEDS: Furosemide 40 MG TAB PO (07:38)
[2021-03-19] MEDS: Metoclopramide 10 MG TAB 5 MG PO ×3 (07:38→16:17)
[2021-03-19] MEDS: Pantoprazole 40 MG TABCR PO (07:38)
[2021-03-19] MEDS: Insulin Aspart 300 UNITS/3 ML PEN SC ×4 (07:46→22:12)
[2021-03-19 08:13] LABS: Glucose 439 mg/dL (74-106)
[2021-03-19] MEDS: Nystatin POWDER 15 GM JAR TP ×2 (08:57→19:57)
[2021-03-19] MEDS: Insulin Glargine 300 UNITS/3 ML PEN 60 UNITS SC (08:58)
[2021-03-19] MEDS: Spironolactone 25 MG TAB PO (08:58)
--- NOTE | 2021-03-19 09:10 | CMPROGNOTE_ITS ---
- If Service Date Differs Date of service: 03/19/21 Time of Service: 09:11 Care Management Progress Note S/O:Elly was sitting up in bed when CM met with her. She was pleasant and readily engaged in conversation. Elly stated that she is feeling better but will not be going home today. She stated that the doctor wanted to watch and see how she does with her new medication. Elly is tolerating her diet well. Her blood sugar was 495 this morning but was down to 242 at lunch time. Jorge Luis, Elly's grandson, called this morning to speak to the doctor and CM. He stated that he can no longer be responsible for monitoring Elly's diabetes control. He stated that he believes she should be in a equipment operator intermodal yard care facility and is working on getting equipment [employer] inter[employer] medicaid approved. He is requesting that CM pursue a short term rehab stay at the [facility]. PT is recommending home health PT as Elly requires only contact guard or standby assist. This afternoon a referral was sent to the [facility] by CM for short term rehab as Elly agreed to go for a week to help her diabetes get better controlled. A: Elly is a 70 year old woman admitted on 03/17/21 with diabetic ketoacidosis P:A referral has been sent to the [facility] for short term rehab at Jorge Luis's (grandhien) request and with Elly's permission. If a bed offer is not received, Elly will likely return home with no new services. She will follow up with her PCP and discharge plan of care and transport with family. CM will continue to support Elly and assess for discharge planning needs.
[2021-03-19] MEDS: Budesonide/Formoterol 160/4.5 6 GM 60 PUFF INH IH ×2 (09:49→19:53)
--- NOTE | 2021-03-19 10:22 | PGE_ITS ---
Date of Service Date of service: 03/19/21 Time of Service: 10:50 Assessment and Plan Assessment and plan (1) IDDM (insulin dependent diabetes mellitus): Status: Chronic Assessment and plan: Now on Lantus daily and resistant SS insulin. She is followed by PCP and Pharm D at [facility]. Recent Pharm D note. At home she is on Tresiba in the AM, AC insulin per carb counting along with a sliding scale. The challenge for managing her insulin is her diet and her understanding of carb counting. Her grandson is involved in her care and administers medications. Pharmacy is reaching out to the Pharm D at [facility], Dmitriy Howe. (2) DKA (diabetic ketoacidosis): Status: Resolved Assessment and plan: Resolved. Anion Gap closed and insulin drip stop yesterday morning. Glucose running high but had restarted Lantus at a low dose and her sliding scale correction dosing at Moderate level. Now on increased dose of Lantus and resistant SS correction dosing. Qualifiers: Diabetes mellitus complication detail: without coma (3) Pulmonary fibrosis: Status: Chronic Assessment and plan: No longer taking Ofev d/t diarrhea. (4) CHF (congestive heart failure): Status: Chronic Assessment and plan: Appears euvolemic w/o clinical evidence of pulmonary edema. Cont Lasix 40mg daily po; home dosing. (5) COPD (chronic obstructive pulmonary disease): Status: Chronic Assessment and plan: Stable w/o exacerbation. Cont Symbicort, prn albuterol. O2 sat of 96% on 2L NC. Qualifiers: COPD type: emphysema Emphysema type: panlobular Qualified Code(s): J43.1 - Panlobular emphysema (6) Gastroparesis: Status: Acute Assessment and plan: Presumptive dx. No N/V currently since reglan initiated. Subjective Subjective Patient reports: tolerating a regular diet and afebrile; denies diarrhea, nausea, vomiting and shortness of breath Interval history since last seen: Feels tired / weak but better. Exam Const General: cooperative, no acute distress and frail appearing Nutritional Appearance: overweight Orientation: alert and oriented x3 Eyes Sclera: sclerae normal Pupils: PERRL Resp Effort & Inspection: normal respiratory effort Auscultation: clear to auscultation bilaterally Cardio Rate: regular rate Rhythm: regular rhythm Heart Sounds: S1 normal and S2 normal GI Palpation: soft and nontender Auscultation: normoactive bowel sounds Extrem General: no pedal edema and no calf tenderness Objective Last Vital Signs Temp 36.0 C L 03/19/21 07:27 Pulse 76 03/19/21 07:27 Resp 20 03/19/21 07:27 BP 123/75 03/19/21 07:27 Pulse Ox 96 03/19/21 07:27 Laboratory Results - last 24 hr 03/19/21 03/19/21 06:40 07:45 Sodium 135 L Potassium 4.0 Chloride 100 Carbon Dioxide 25.2 Anion Gap 9.8 BUN 25 H Creatinine 1.3 H Estimated GFR/1.73 m2 40.61 Glucose 436 H D 439 H Calcium 8.8 Magnesium 2.1
[2021-03-19] MEDS: Escitalopram 10 MG TAB 20 MG PO (11:27)
--- NOTE | 2021-03-19 11:28 | PT.INTREAT ---
Date of service: 03/19/21 Time of Service: 11:38 PT Notes Visit Reasons: Diabetic Ketoacidosis Inpatient Physical Therapy Evaluation Date: 03/19/21 Precautions: Standard. Fall. Activity as tolerated. Subjective: Continues to complain of mild lightheadedness. Objective: General Observation: Oxygen supplementation at 2 L/min via NC. Mental Status: Alert and oriented x4 Pain: None reported Bed Mobility/Transfers: Rolling independent Supine to sit independent Sit to supine independent Sit to stand independent Stand to sit independent Bed to chair independent Chair to bed independent Gait: Guided patient through level surface ambulation requiring single-point cane with full weight bearing requiring contact-guard assist and wheelchair followed by PT for 20 feet x 2 with mild lightheadedness, minimal path deviation, and mild SOB on 2 L of oxygen per minute. Oxygen saturation levels stayed within normal limits and reported and no pain throughout. Minimal verbal cueing provided for directional changes and obstacle negotiation. Blood pressure of 119/76 mmHg, oxygen saturation of 99%, and heart rate of 85 bpm after ambulation activity of 200 feet. Blood pressure of 122/70 mmHg, oxygen saturation of 97% on 2 L of oxygen per minute, and heart rate in 84 bpm after stair negotiation with complaint of increased lightheadedness. Balance: Static Sitting: Normal Dynamic Sitting: Normal Static Standing: Fair Dynamic Standing: Fair Assessment: Elly performed better today requiring less assistance at standby assist compared to yesterday. She is independent with all bed mobility and transfer skills but continues to require standby assist for all ambulation activities due to report of dizziness related to her high blood sugar level. No report of pain throughout session. Mild shortness of breath at 2 L of oxygen per minute that subsided with rest. DISCHARGE RECOMMENDATIONS: Patient will benefit from home health PT services in order to progress mobility level using least restrictive assistive ambulatory device, assess home safety, identify additional equipment needs, and establish a functional maintenance program that will increase ability of patient to remain at home. TREATMENT CODE/TIME: 06683 x 21 minutes beginning at 11:38 PM.
--- NOTE | 2021-03-19 12:41 | W.INDIABCONS ---
Date of service: 03/19/21 Time of Service: 12:41 Diabetes Inpatient Consult DESCRIPTION/ASSESSMENT: 70 year old female admitted for 3rd time in last 6 months for dehydration with DKA. PMH: Poorly controlled DM2, gastroparesis, DVT, CHF. DM home meds: 44 u lantus HS, lispro on SS at meals, empagliflozin 10 mg qd. Poor blood sugar control in house. Most recent A1C: 12% (11/2020). Elly takes insulin 4 times daily and checks her sugars 6 times per day at home. She has tried to get a Kaye 2 continuous glucose monitor for the last couple of weeks and is followed by PCP, Dmitriy Howe, PharmD. Her Dm is complicated by taking ofev that contributes to n/v, also has gastroparesis that may be contributing to variable blood sugars alternating between hypo glycemia and hyperglycemia. Diet recall indicates high reliance on convenience food. Elly would like to have a CGM so she can feel more confident to take insulin to correct glycemic excurtions. INTERVENTION: CHO diet provided additional information on how to do carb counting will follow up with PCP to get script for Kaye 2 CGM. PLAN: Continue current meal plan follow up outpatient Dm Time Spent in Nutritional Counseling and Treatment: 20 min
[2021-03-19] MEDS: Normal Saline Flush 10 ML SYR IVP (13:39)
--- NOTE | 2021-03-19 14:27 | PT.INTREAT ---
PT Notes Visit Reasons: Diabetic Ketoacidosis 03/19/2021 SUBJECTIVE: Feeling okay today. Notes some joint stiffness with ambulation. OBJECTIVE: TRANSFERS Supine to sit: I Sit to supine: I Sit to stand: I Stand to sit: I GAIT Device: SPC Weight bearing: Full Assist: SBA Distance: 200'x2 Deviation: 1 sit rest break, on 2 L NC STAIRS: 2-6'', 3-4 steps, 2 rails, step to pattern, SBA ASSESSMENT: Tolerates stair management well. No LOB or path deviations observed today. PLAN: Continue to mobilize while pt is here in the hosptial. Treatment time: 15' [id number] Yumiko Gee PTA Clinic location: [facility] [place], [place]
--- NOTE | 2021-03-19 15:28 | CHAPLAIN ---
Elly and I remembered each other from her previous hospitalizations. She has been in touch with her so, who thinks she should go to a long care facility, according to Care Management notes. Elly sees to be comfortable here and was pleasant in engaging in a conversation with me.
[2021-03-19] MEDS: Simvastatin 40 MG TAB PO (19:52)
[2021-03-19] MEDS: Donepezil 5 MG TAB PO (19:52)
[2021-03-20] VITALS (7 sets, daily range): BP systolic 103–137; BP diastolic 62–70; PULSE 77–88; RESP 17–18; TEMP 35.9–36.9; O2SAT 94–100
[2021-03-20] MEDS: Heparin 5,000 UNITS/ML VIAL 5000 UNITS SC ×3 (05:58→22:57)
[2021-03-20 06:48] LABS: HCT 39.7 % (36.0-46.0); HGB 13.2 g/dL (11.2-15.7); MCH 30.1 pg (27.0-33.0); MCHC 33.2 % (32.0-36.0); MCV 90.6 fL (80-95); MPV 10.6 fL (8.0-11.0); Platelet Count 290 10^3/uL (130-400); RBC 4.38 10^6/uL (3.93-5.22); RDW 13.6 % (11.7-14.6); RDW-SD 45.4 fL; WBC 8.04 10^3/uL (4.4-10.8)
[2021-03-20] MEDS: Spironolactone 25 MG TAB PO (07:59)
[2021-03-20] MEDS: Metoclopramide 10 MG TAB 5 MG PO ×3 (07:59→16:44)
[2021-03-20] MEDS: Pantoprazole 40 MG TABCR PO (07:59)
[2021-03-20] MEDS: Furosemide 40 MG TAB PO (07:59)
[2021-03-20] MEDS: Insulin Aspart 300 UNITS/3 ML PEN SC ×3 (07:59→22:56)
[2021-03-20] MEDS: Nystatin POWDER 15 GM JAR TP ×2 (08:00→20:04)
[2021-03-20] MEDS: Insulin Glargine 300 UNITS/3 ML PEN 60 UNITS SC (08:00)
[2021-03-20] MEDS: Budesonide/Formoterol 160/4.5 6 GM 60 PUFF INH IH ×2 (08:04→20:04)
--- NOTE | 2021-03-20 09:39 | PDOC.CMPRO ---
- If Service Date Differs Date of service: 03/20/21 Time of Service: 09:39 Care Management Progress Note S/O: Per provider note, Elly continues to improve. She worked with Physical Therapy today and is reported to have tolerated the intervention well. Lab work drawn this morning reveals normal WBC and RBC at 8.04 and 4.38 respectively. CM will continue to follow. A: Elly is a 70 year old woman admitted on 03/17/21 with diabetic ketoacidosis. P: No change in plan. A referral has been sent to the [facility] for short term rehab at Jorge Luis's (grandson) request and with Elly's permission. If a bed offer is not received, Elly will likely return home with no new services. She will follow up with her PCP and discharge plan of care and transport with family. CM will continue to support Elly and assess for discharge planning needs.
--- NOTE | 2021-03-20 10:58 | PHA.REVIEW ---
Pharmacy Admission Review - Admission Clinical Review (Last Reviewed 03/17/21 @ 20:18 by Fredy Weaver MD) Gastroparesis (Acute) DKA (diabetic ketoacidoses) (Acute) Vomiting (Acute) aspirin Allergy (Unknown, Verified 03/17/21 11:33) HIVES, flip out diclofenac Allergy (Unknown, Verified 03/17/21 11:33) RASH latex Allergy (Unknown, Verified 03/17/21 11:33) SKIN BREAKDOWN NSAIDS (Non-Steroidal Anti-Inflamma Allergy (Unknown, Verified 03/17/21 11:33) HIVES, VOMITING morphine Adverse Reaction (Unknown, Verified 03/17/21 11:33) VOMITING Height 4 ft 11 in Weight 70.307 kg - Renal Dosing Renal Dosing: BUN 25 mg/dL (7-18) H 03/19/21 06:40 Creatinine 1.3 mg/dL (0.55-1.02) H 03/19/21 06:40 Medications needing adjustments: Reviewed - Anticoagulation Anticoagulation: Hgb 13.2 g/dL (11.2-15.7) 03/20/21 06:14 Hct 39.7 % (36.0-46.0) 03/20/21 06:14 Plt Count 290 10^3/uL (130-400) 03/20/21 06:14 Creatinine 1.3 mg/dL (0.55-1.02) H 03/19/21 06:40 DVT Prohphylaxis: Reviewed Medications: Heparin - Opiate Usage Evaluate Pain Scale/Pains Meds: Reviewed (OXYCODONE 2.5MG Q6H PRN, hasn't required any doses as of 03/20 1100) Scheduled Bowel Reg ordered if on Opiates?: No (will notify ) - Relevant Labs Sodium 135 mmol/L (136-145) L 03/19/21 06:40 Potassium 4.0 mmol/L (3.5-5.1) 03/19/21 06:40 Chloride 100 mmol/L (98-107) 03/19/21 06:40 Phosphorus 3.0 mg/dL (2.6-4.7) 03/18/21 06:52 Magnesium 2.1 mg/dL (1.8-2.4) 03/19/21 06:40 Electrolytes, C-Reactive P, ESR: Reviewed - DM Control DM Control: Glucose 439 mg/dL (74-106) H 03/19/21 07:45 Finger Stick Blood Glucose 253 Finger Stick Blood Glucose 253 Finger Stick Blood Glucose 253 Finger Stick Blood Glucose 253 Insulin Dosing: Reviewed (currently at 60 u of glargine in the AM plus resistent SS protocol + add'l 10U) - Heart Failure/OK Heart Failure/OK: Troponin I < 0.05 ng/mL (<0.06) 03/17/21 21:00 NT-Pro-B Natriuret Pep 144 pg/mL (<300) 03/17/21 11:45 EF%, DAYANARA's, B-Blockers, Diuretics: Reviewed - BP Control BP Control: Blood Pressure 117/69 Blood Pressure 137/64 Blood Pressure 102/59 If elevated: Intervened List meds needing interventions: lasix and sprinolactone -- no ACEI/ARB on board, will review clinic notes and notify MD if needed - Qtc Review If Elevated: Reviewed List meds needing interventions: 456 on admission - IV to PO Switch IV Medications: Reviewed - Home Meds Home Med List reviewed: Reviewed Relevent Home Meds Not ordered & why?: Ofev has been dc'd due to side effects, all others ordered, uses tresiba at home; of note: no low dose ASA (documented allergy) or acei/arb for kidney protection - Current meds Current Medication Order Review: Reviewed
--- NOTE | 2021-03-20 11:24 | PT.INTREAT ---
Date of service: 03/20/21 Time of Service: 08:50 PT Notes Visit Reasons: Diabetic Ketoacidosis Inpatient Physical Therapy Treatment Note [facility] Date: 03/20/2021 PRECAUTIONS: Activity as tolerated SUBJECTIVE: Stated she is doing fair today. OBJECTIVE: PAIN: No complaints of pain. BED MOBILITY/TRANSFERS Sit-stand: I Stand-sit: I GAIT Assistive Device: SPC and O2 supplement at 2L Weight bearing: Full Assist: SBA Distance: 200ft x 2, one seated rest break for 2-3 minutes STAIRS: Up and down 3 4 inch and 2 6 inch steps with 2 rails, step to gait pattern. SBA with stairs. ASSESSMENT: Tolerated today's session well PLAN: Continue to focus on improved functional mobility for D/C from hospital. TREATMENT CODE/TIME: 17465 x 1, 20 minutes 9:30 to 9:50 am
[2021-03-20] MEDS: Escitalopram 10 MG TAB 20 MG PO (11:52)
[2021-03-20] MEDS: Insulin Aspart 300 UNITS/3 ML PEN 10 UNITS SC ×2 (11:55→17:05)
--- NOTE | 2021-03-20 14:34 | W.PM.PROGNOT ---
Date of Service Date of service: 03/20/21 Time of Service: 14:35 Assessment and Plan Assessment and plan (1) IDDM (insulin dependent diabetes mellitus): Status: Chronic Assessment and plan: Continue current dose of long acting insulin. Schedule mealtime insulin in addition to the resistant SSI and reassess FBG in am. (2) DKA (diabetic ketoacidosis): Status: Resolved Assessment and plan: Resolved. As above. Was likely precipitated by n/v/d as side effect of ofev with dietary noncompliance rather than gastroparesis. Had a negative gastric emptying study in 11/12. Qualifiers: Diabetes mellitus complication detail: without coma (3) Pulmonary fibrosis: Status: Chronic Assessment and plan: The patient was taking ofev all the way until she was admitted to the hospital. The patient endorses not being compliant with a low carb diet at home, but states she is willing to try it here and at SNF. We will have the patient's family bring ofev into the hospital and restart it again at 100 mg daily. (4) CHF (congestive heart failure): Status: Chronic Assessment and plan: Agree that she is euvolemic at this time. Continue Lasix 40 mg PO daily. (5) COPD (chronic obstructive pulmonary disease): Status: Chronic Assessment and plan: Not in acute exacerbation. Conting Symbicort, prn albuterol. On room air today. Qualifiers: COPD type: emphysema Emphysema type: panlobular Qualified Code(s): J43.1 - Panlobular emphysema (6) Gastroparesis: Status: Ruled-out Assessment and plan: Negative gastric emptying study in 11/12. GI sx are due to side effects of ofev. (7) DVT prophylaxis: Status: Acute Assessment and plan: SC heparin (8) Discharge planning issues: Status: Acute Assessment and plan: Full code Will need SNF Subjective Subjective Interval history since last seen: Ms Pina states she is feeling well today. Denies dizziness, chest pain, shortness of breath, nausea, vomiting, diarrhea. Last BM yesterday. Tolerating PO. On Room Air. BGs so far today 253 ->368. Received scheduled 10 units of aspart + 18 units correction for the BG of 368. She states she continued to take Ofev all the way until the day she presented to the hospital. We discussed the fact that she was not following a low carb diet at home (she needs to be on a low carb diet while on ofev). Exam Narrative Exam Narrative: General: Elderly female, A&Ox3, looks to be in good spirits HEENT: EOMI, MMM Heart: RRR, no m/r/g Lungs: coarse breath sounds B Abdomen: soft, nontender, nondistended Extremities: trace edema BLE's Objective Last Vital Signs Temp 36.5 C 03/20/21 11:44 Pulse 84 03/20/21 11:44 Resp 17 03/20/21 11:44 BP 103/62 03/20/21 11:44 Pulse Ox 94 03/20/21 11:44 Laboratory Results - last 24 hr 03/20/21 06:14 WBC 8.04 RBC 4.38 Hgb 13.2 Hct 39.7 MCV 90.6 MCH 30.1 MCHC 33.2 RDW 13.6 Plt Count 290 MPV 10.6
[2021-03-20] MEDS: Simvastatin 40 MG TAB PO (20:04)
[2021-03-20] MEDS: Donepezil 5 MG TAB PO (20:04)
[2021-03-20] MEDS: Normal Saline Flush 10 ML SYR IVP (20:05)
[2021-03-21] VITALS (7 sets, daily range): BP systolic 101–119; BP diastolic 63–73; PULSE 72–83; RESP 17–19; TEMP 35.9–36.7; O2SAT 97–100
[2021-03-21] MEDS: Heparin 5,000 UNITS/ML VIAL 5000 UNITS SC ×3 (05:58→21:42)
[2021-03-21] MEDS: Insulin Aspart 300 UNITS/3 ML PEN SC ×4 (07:46→21:44)
[2021-03-21] MEDS: Nystatin POWDER 15 GM JAR TP ×2 (07:46→20:28)
[2021-03-21] MEDS: Insulin Aspart 300 UNITS/3 ML PEN 10 UNITS SC (07:48)
[2021-03-21] MEDS: Insulin Glargine 300 UNITS/3 ML PEN 60 UNITS SC (07:48)
[2021-03-21] MEDS: Spironolactone 25 MG TAB PO (07:49)
[2021-03-21] MEDS: Furosemide 40 MG TAB PO (07:49)
[2021-03-21] MEDS: Pantoprazole 40 MG TABCR PO (07:49)
[2021-03-21] MEDS: Metoclopramide 10 MG TAB 5 MG PO (07:49)
[2021-03-21 07:56] LABS: Anion Gap 9.6 mmol/L (3-11); BUN 27 mg/dL (7-18); CO2 27.4 mmol/L (21.0-32.0); CREATININE 1.1 mg/dL (0.55-1.02); Calcium 9.3 mg/dL (8.5-10.1); Chloride 102 mmol/L (98-107); Estimated GFR 49.25 (mL/min/1.73m2); Magnesium 1.9 mg/dL (1.8-2.4); Potassium 4.2 mmol/L (3.5-5.1); Sodium 139 mmol/L (136-145)
[2021-03-21 08:04] LABS: Glucose 288 mg/dL (74-106)
[2021-03-21] MEDS: Budesonide/Formoterol 160/4.5 6 GM 60 PUFF INH IH ×2 (08:31→20:28)
--- NOTE | 2021-03-21 10:42 | PT.INTREAT ---
Date of service: 03/21/21 Time of Service: 09:05 PT Notes Visit Reasons: Diabetic Ketoacidosis Inpatient Physical Therapy Treatment Note [facility] Date: 03/21/2021 PRECAUTIONS: Activity as tolerated SUBJECTIVE: Feels like walking and stairs is all she has energy enough for this session. OBJECTIVE: PAIN: No reports of pain BED MOBILITY/TRANSFERS Rolling L/R: I Supine-sit: I Sit-supine: I Sit-stand: I Stand-sit: I GAIT Assistive Device: SPC and O2 supplement at L2 Weight bearing: Full Assist: SBA Distance: 200ft x 2, two seated breaks with ambulation STAIRS: Up / down 3 4 inch and 2 6 inch steps with handrails utilizing a reciprocal gait pattern today, instead of step to pattern. ASSESSMENT: Tolerated today's ambulation and stair training very well, but does fatigue easily. PLAN: Continue with current plan of care. Try adding some UE and LE strengthening next session if willing. TREATMENT CODE/TIME: 89273 x 1, 9:05 to 9:25 am (20')
--- NOTE | 2021-03-21 10:51 | CMPROGNOTE_ITS ---
- If Service Date Differs Date of service: 03/21/21 Time of Service: 10:51 Care Management Progress Note S/O: Per provider note, Elly is resuming the ofev today and is placed on a carb restricted diet. Elly is feeling better and she has no new complaints. She is agreeable to going to the [facility] for short-term rehab if accepted but she is unwilling to stay longer than a week. CM will continue to follow. A: Elly is a 70 year old woman admitted on 03/17/21 with diabetic ketoacidosis. P: No change in plan. A referral has been sent to the [facility] for short term rehab at Jorge Luis's (grandson) request and with Elly's permission. If a bed offer is not received, Elly will likely return home with no new services. She will follow up with her PCP and discharge plan of care and transport with family. CM will continue to support Elly and assess for discharge planning needs.
[2021-03-21] MEDS: Escitalopram 10 MG TAB 20 MG PO (11:57)
[2021-03-21] MEDS: Insulin Aspart 300 UNITS/3 ML PEN 15 UNITS SC ×2 (11:58→17:05)
--- NOTE | 2021-03-21 14:09 | PGE_ITS ---
Date of Service Date of service: 03/21/21 Time of Service: 14:13 Assessment and Plan Assessment and plan (1) IDDM (insulin dependent diabetes mellitus): Start date: 03/21/21 Start time: 14:14 Status: Chronic Assessment and plan: Continues to be high increased long acting divided doses to 35 in am and pm also increased scheduled doses of 10 increased to 15 Restricted carbs to 60, will monitor and adjust insulin according to fingersticks resistant meal time insuls (2) DKA (diabetic ketoacidosis): Start date: 03/21/21 Start time: 14:17 Status: Resolved Assessment and plan: Resolved. As above. Was likely precipitated by n/v/d as side effect of ofev with dietary noncompliance rather than gastroparesis. Had a negative gastric emptying study in 11/12. Qualifiers: Diabetes mellitus complication detail: without coma (3) Pulmonary fibrosis: Start date: 03/21/21 Start time: 14:17 Status: Chronic Assessment and plan: The patient medication brought in and now taking ofev daily. The patient endorses not being compliant with a low carb diet at home, but states she is willing to try it here and at SNF. (4) CHF (congestive heart failure): Start date: 03/21/21 Start time: 14:17 Status: Chronic Assessment and plan: Agree that she is euvolemic at this time. Continue Lasix 40 mg PO daily. (5) COPD (chronic obstructive pulmonary disease): Start date: 03/21/21 Start time: 14:17 Status: Chronic Assessment and plan: Not in acute exacerbation. Conting Symbicort, prn albuterol. On room air today. Qualifiers: COPD type: emphysema Emphysema type: panlobular Qualified Code(s): J43.1 - Panlobular emphysema (6) Gastroparesis: Start date: 03/21/21 Start time: 14:18 Status: Ruled-out Assessment and plan: Negative gastric emptying study in 11/12. GI sx are due to side effects of ofev. D/c reglan (7) DVT prophylaxis: Start date: 03/21/21 Start time: 14:18 Status: Acute Assessment and plan: SC heparin (8) Discharge planning issues: Start date: 03/21/21 Start time: 14:18 Status: Acute Assessment and plan: Full code agreeable to [facility] discussed with Dr. Dyer Subjective Subjective Patient reports: no new complaints Interval history since last seen: laying in bed feels well eating and drinking. agreeable to going to the [facility] but states I am only going for 1 week. She denies CP, SOB, N/V/D, Exam Narrative Exam Narrative: General: Elderly female, A&Ox3, looks to be in good spirits HEENT: EOMI, MMM Heart: RRR, no m/r/g Lungs: Breath sound clear Abdomen: soft, nontender, nondistended Extremities: trace edema BLE's Objective Last Vital Signs Temp 36.5 C 03/21/21 11:41 Pulse 83 03/21/21 11:41 Resp 18 03/21/21 11:41 BP 118/73 03/21/21 11:41 Pulse Ox 99 03/21/21 11:41 Laboratory Results - last 24 hr 03/21/21 06:08 Sodium 139 Potassium 4.2 Chloride 102 Carbon Dioxide 27.4 Anion Gap 9.6 BUN 27 H Creatinine 1.1 H Estimated GFR/1.73 m2 49.25 Glucose 288 H D Calcium 9.3 Magnesium 1.9
[2021-03-21] MEDS: Donepezil 5 MG TAB PO (20:27)
[2021-03-21] MEDS: Simvastatin 40 MG TAB PO (20:27)
[2021-03-21] MEDS: Insulin Glargine 300 UNITS/3 ML PEN 10 UNITS SC (21:43)
[2021-03-22] VITALS (9 sets, daily range): BP systolic 97–134; BP diastolic 60–79; PULSE 80–92; RESP 16–20; TEMP 36.4–37.1; O2SAT 94–98
[2021-03-22] MEDS: Heparin 5,000 UNITS/ML VIAL 5000 UNITS SC ×3 (05:19→21:46)
[2021-03-22 07:24] LABS: HCT 42.8 % (36.0-46.0); HGB 14.2 g/dL (11.2-15.7); MCH 30.1 pg (27.0-33.0); MCHC 33.2 % (32.0-36.0); MCV 90.7 fL (80-95); MPV 10.6 fL (8.0-11.0); Platelet Count 303 10^3/uL (130-400); RBC 4.72 10^6/uL (3.93-5.22); RDW 13.9 % (11.7-14.6); RDW-SD 46.8 fL; WBC 10.52 10^3/uL (4.4-10.8)
[2021-03-22 07:33] LABS: Anion Gap 8.9 mmol/L (3-11); BUN 27 mg/dL (7-18); CO2 29.1 mmol/L (21.0-32.0); CREATININE 1.2 mg/dL (0.55-1.02); Calcium 9.5 mg/dL (8.5-10.1); Chloride 102 mmol/L (98-107); Estimated GFR 44.54 (mL/min/1.73m2); Glucose 184 mg/dL (74-106); Potassium 3.9 mmol/L (3.5-5.1); Sodium 140 mmol/L (136-145)
[2021-03-22] MEDS: Normal Saline Flush 10 ML SYR IVP (07:55)
[2021-03-22] MEDS: Furosemide 40 MG TAB PO (07:55)
[2021-03-22] MEDS: Spironolactone 25 MG TAB PO (07:55)
[2021-03-22] MEDS: Pantoprazole 40 MG TABCR PO (07:55)
[2021-03-22] MEDS: Insulin Aspart 300 UNITS/3 ML PEN SC ×4 (07:56→21:45)
[2021-03-22] MEDS: Insulin Aspart 300 UNITS/3 ML PEN 15 UNITS SC ×3 (07:57→17:18)
[2021-03-22] MEDS: Insulin Glargine 300 UNITS/3 ML PEN 35 UNITS SC ×2 (07:57→21:46)
[2021-03-22] MEDS: Nystatin POWDER 15 GM JAR TP ×2 (07:58→19:56)
[2021-03-22] MEDS: Budesonide/Formoterol 160/4.5 6 GM 60 PUFF INH IH ×2 (09:45→19:56)
--- NOTE | 2021-03-22 10:55 | PT.INTREAT ---
Date of service: 03/22/21 Time of Service: 09:50 PT Notes Visit Reasons: Diabetic Ketoacidosis Inpatient Physical Therapy Treatment Note [facility] Date: 03/22/2021 PRECAUTIONS: Activity as Tolerated SUBJECTIVE: Elly is pleasant and agreeable to participating in PT. She states that she will be going to the [facility] for a week. OBJECTIVE: PAIN: No c/o pain BED MOBILITY/TRANSFERS Supine-sit: I Sit-supine: I Sit-stand: I Stand-sit: I GAIT Assistive Device: SPC Weight bearing: Full Assist: S Distance: 200' x2 VITALS: SaO2: 93-95% on RA with gait training and ther ex THEREX: Patient was instructed in a seated UE and LE strengthening program, as per flow sheet. STAIRS: Up/down 2x4 and 2x6 using B rails and a step-over pattern with supervision. ASSESSMENT: Patient tolerated session well with complaint increased fatigue at completion of session. She demonstrates steady gait and pacing with SPC and did not c/o or demonstrate SOB. PLAN: Continue with global strengthening and conditioning for improved activity tolerance. TREATMENT CODE/TIME: 15 minutes; 23459 (09:50)
[2021-03-22] MEDS: Escitalopram 10 MG TAB 20 MG PO (12:07)
--- NOTE | 2021-03-22 15:16 | W.PM.PROGNOT ---
Date of Service Date of service: 03/22/21 Time of Service: 15:17 Assessment and Plan Assessment and plan (1) IDDM (insulin dependent diabetes mellitus): Start date: 03/22/21 Start time: 15:19 Status: Chronic Assessment and plan: Improved glucose levels 185 this am. However elevated at lunch will increase pm long acting Restricted carbs to 60, will monitor and adjust insulin according to fingersticks resistant meal time insuls (2) Pulmonary fibrosis: Start date: 03/22/21 Start time: 15:21 Status: Chronic Assessment and plan: The patient medication brought in and now taking ofev daily. The patient endorses not being compliant with a low carb diet at home, but states she is willing to try it here and at SNF. restricted carb diet to 60 carbs daily (3) CHF (congestive heart failure): Start date: 03/22/21 Start time: 15:22 Status: Chronic Assessment and plan: Agree that she is euvolemic at this time. Continue Lasix 40 mg PO daily. (4) COPD (chronic obstructive pulmonary disease): Start date: 03/22/21 Start time: 15:22 Status: Chronic Assessment and plan: Not in acute exacerbation. Conting Symbicort, prn albuterol. On room air today. Qualifiers: COPD type: emphysema Emphysema type: panlobular Qualified Code(s): J43.1 - Panlobular emphysema (5) Discharge planning issues: Start date: 03/22/21 Start time: 15:22 Status: Acute Assessment and plan: [facility] discussed with Dr. Dyer Subjective Subjective Patient reports: no new complaints Interval history since last seen: Doing well sitting up in chair. Glucose levels improved. No new complaints. possible discharge to the [facility] tomorrow. Exam Narrative Exam Narrative: General: Elderly female, A&Ox3, looks to be in good spirits sitting up in chair HEENT: EOMI, MMM Heart: RRR, no m/r/g Lungs: Breath sound clear Abdomen: soft, nontender, nondistended Extremities: trace edema BLE's Objective Last Vital Signs Temp 36.6 C 03/22/21 15:13 Pulse 86 03/22/21 15:13 Resp 16 03/22/21 15:13 BP 107/69 03/22/21 15:13 Pulse Ox 96 03/22/21 15:13 Laboratory Results - last 24 hr 03/22/21 03/22/21 06:12 06:12 WBC 10.52 RBC 4.72 Hgb 14.2 Hct 42.8 MCV 90.7 MCH 30.1 MCHC 33.2 RDW 13.9 Plt Count 303 MPV 10.6 Sodium 140 Potassium 3.9 Chloride 102 Carbon Dioxide 29.1 Anion Gap 8.9 BUN 27 H Creatinine 1.2 H Estimated GFR/1.73 m2 44.54 Glucose 184 H D Calcium 9.5
--- NOTE | 2021-03-22 17:11 | CMPROGNOTE_ITS ---
- If Service Date Differs Date of service: 03/22/21 Time of Service: 17:11 Care Management Progress Note S/O: Per provider note, Elly is doing well and her glucose levels are improved at 184. She has resumed ofev daily and is doing well with the restricted carb diet. Lab work done today reveals normal WBC and RBC levels at 10.52 and 4.72 respectively, elevated BUN at 27, and elevated Creatinine at 1.2. CM will continue to follow. A: Elly is a 70 year old woman admitted on 03/17/21 with diabetic ketoacidosis. P: No change in plan. A referral has been sent to the [facility] for short term rehab at Jorge Luis's ([facility]) request and with Elly's permission. Livia from the [facility] has made a tentative bed offer, pending insurance approval. Elly will follow up with her PCP and discharge plan of care as directed. CM will continue to support Elly.
[2021-03-22] MEDS: Simvastatin 40 MG TAB PO (19:55)
[2021-03-22] MEDS: Donepezil 5 MG TAB PO (19:55)
[2021-03-23 03:06] VITALS: BP 109/54; PULSE 70; RESP 20; TEMP 35.3; O2SAT 94
[2021-03-23] MEDS: Heparin 5,000 UNITS/ML VIAL 5000 UNITS SC ×2 (05:21→14:29)
[2021-03-23 06:55] VITALS: BP 101/62; PULSE 91; RESP 19; TEMP 36.2; O2SAT 94
[2021-03-23 07:04] LABS: Anion Gap 11.3 mmol/L (3-11); BUN 32 mg/dL (7-18); CO2 27.7 mmol/L (21.0-32.0); CREATININE 1.3 mg/dL (0.55-1.02); Calcium 9.3 mg/dL (8.5-10.1); Chloride 101 mmol/L (98-107); Estimated GFR 40.61 (mL/min/1.73m2); Glucose 272 mg/dL (74-106); Potassium 4.3 mmol/L (3.5-5.1); Sodium 140 mmol/L (136-145)
[2021-03-23] MEDS: Pantoprazole 40 MG TABCR PO (07:58)
[2021-03-23] MEDS: Spironolactone 25 MG TAB PO (07:58)
[2021-03-23] MEDS: Furosemide 40 MG TAB PO (07:59)
[2021-03-23] MEDS: Insulin Glargine 300 UNITS/3 ML PEN 50 UNITS SC (08:05)
[2021-03-23] MEDS: Insulin Aspart 300 UNITS/3 ML PEN SC ×3 (08:54→17:10)
[2021-03-23] MEDS: Insulin Aspart 300 UNITS/3 ML PEN 15 UNITS SC ×3 (08:54→17:10)
[2021-03-23] MEDS: Nystatin POWDER 15 GM JAR TP ×2 (08:54→20:41)
[2021-03-23 09:37] LABS: Source Nasal/Nares
[2021-03-23] MEDS: Budesonide/Formoterol 160/4.5 6 GM 60 PUFF INH IH ×2 (10:06→20:42)
[2021-03-23 10:31] LABS: COVID-19 PCR Negative (Negative)
[2021-03-23 11:13] VITALS: BP 117/79; PULSE 91; RESP 21; TEMP 36.1; O2SAT 96
[2021-03-23] MEDS: Escitalopram 10 MG TAB 20 MG PO (11:19)
[2021-03-23] MEDS: Acetaminophen 325 MG TAB 650 MG PO (11:19)
--- NOTE | 2021-03-23 12:28 | PDOC.CMPRO ---
- If Service Date Differs Date of service: 03/23/21 Time of Service: 12:28 Care Management Progress Note S/O:Elly was sitting up in her chair when CM met with her. She was pleasant and has been ambulating in the halls with PT. A referral was sent to [facility] for Elly and a tentative bed offer was received for tomorrow pending a final review of her information and insurance approval. A: Elly is a 70 year old woman admitted on 03/17/21 with diabetic ketoacidosis. P: A referral has been sent to the [facility] for short term rehab at Jorge Luis's (grandson) request and with Elly's permission. Livia from the [facility] has made a tentative bed offer for tomorrow, Monday03/24/21 pending insurance approval. Elly will follow up with her PCP and discharge plan of care as directed. CM will continue to support Elly.
--- NOTE | 2021-03-23 13:36 | PGE_ITS ---
Date of Service Date of service: 03/23/21 Time of Service: 13:37 Assessment and Plan Assessment and plan (1) IDDM (insulin dependent diabetes mellitus): Status: Chronic Assessment and plan: blood sugar remains elevated today 294-348 continue to restricted carbs to 60 gm daily d/t pulmonary medication, will monitor and adjust insulin according to fingersticks resistant meal time insulin. increase lantus to 50 units bid A1C nov 2020 was 12.1 (2) Pulmonary fibrosis: Status: Chronic Assessment and plan: The patient medication brought in and now taking ofev daily. The patient endorses not being compliant with a low carb diet at home, but states she is willing to try it here and at SNF. restricted carb diet to 60 carbs daily (3) CHF (congestive heart failure): Status: Chronic Assessment and plan: euvolemic at this time. Continue Lasix 40 mg PO daily. (4) COPD (chronic obstructive pulmonary disease): Status: Chronic Assessment and plan: stable with no oxygen requirements. Conting Symbicort, prn albuterol. On room air today. Qualifiers: COPD type: emphysema Emphysema type: panlobular Qualified Code(s): J43.1 - Panlobular emphysema (5) Discharge planning issues: Status: Acute Assessment and plan: Full code agreeable to [facility], bed pending, anticipate discharge tomorrow. discussed with Dr. Dyer Subjective Subjective Patient reports: no new complaints, tolerating liquids well, tolerating a regular diet and afebrile Exam Const General: cooperative, no acute distress and frail appearing Nutritional Appearance: overweight Orientation: alert, awake, oriented x3, oriented to person and oriented to place [facility] Head: normocephalic and atraumatic Eyes Sclera: sclerae normal Pupils: PERRL Resp Effort & Inspection: normal respiratory effort Auscultation: diminished lung sounds Cardio Rate: regular rate Rhythm: regular rhythm GI Inspection: obesity Palpation: soft and nontender Auscultation: normal bowel sounds and normoactive bowel sounds Neuro General: no focal motor deficits Speech: speech normal Extrem General: no pedal edema and no calf tenderness Psych Appearance: grossly normal Mental Status: mental status grossly normal Mood: congruent mood Affect: normal affect Attitude: cooperative Objective Last Vital Signs Temp 36.1 C L 03/23/21 11:13 Pulse 91 H 03/23/21 11:13 Resp 21 03/23/21 11:13 BP 117/79 03/23/21 11:13 Pulse Ox 96 03/23/21 11:13 Laboratory Results - last 24 hr 03/23/21 03/23/21 06:15 09:35 Sodium 140 Potassium 4.3 Chloride 101 Carbon Dioxide 27.7 Anion Gap 11.3 H BUN 32 H Creatinine 1.3 H Estimated GFR/1.73 m2 40.61 Glucose 272 H Calcium 9.3 COVID-19 Source Nasal/nares SARS-CoV-2 (PCR) Negative
--- NOTE | 2021-03-23 14:49 | PT.INTREAT ---
Date of service: 03/23/21 Time of Service: 10:15 PT Notes Visit Reasons: Diabetic Ketoacidosis Inpatient Physical Therapy Treatment Note [facility] Date: 03/23/2021 PRECAUTIONS: Activity as Tolerated SUBJECTIVE: Elly is pleasant and agreeable to participating in PT. She reports that she is feeling good today, although has bilateral knee soreness. OBJECTIVE: PAIN: Patient c/o B knee soreness at rest, increasing with gait training and ther ex completion BED MOBILITY/TRANSFERS Supine-sit: I Sit-supine: I Sit-stand: I Stand-sit: I Bed-chair: I Chair-bed: I GAIT Assistive Device: SPC Weight bearing: Full Assist: S Distance: 300' Deviation: C/o increased B knee soreness THEREX: Patient was instructed in a supine LE strengthening and stabilization program, as per flow sheet. She c/o increased B knee soreness. ASSESSMENT: Patient tolerated session with complaint increased B knee soreness with gait training and ther ex completion. She was able to tolerate a progression in gait distance with SPC support and without SOB. PLAN: Continue with global strengthening and conditioning for improved activity tolerance. TREATMENT CODE/TIME: 10 minutes; 16559 (10:15)
[2021-03-23 15:14] VITALS: BP 121/75; PULSE 81; RESP 18; TEMP 36.7; O2SAT 96
[2021-03-23] MEDS: oxyCODONE 5 MG TAB 2.5 MG PO (15:30)
[2021-03-23 19:51] VITALS: BP 104/71; PULSE 92; RESP 18; TEMP 36.4; O2SAT 94
[2021-03-23] MEDS: Simvastatin 40 MG TAB PO (20:41)
[2021-03-23] MEDS: Donepezil 5 MG TAB PO (20:41)
[2021-03-23] MEDS: Normal Saline Flush 10 ML SYR IVP (20:44)
[2021-03-23 23:43] VITALS: BP 104/63; PULSE 74; RESP 18; TEMP 36.7; O2SAT 95
[2021-03-24] MEDS: Insulin Glargine 300 UNITS/3 ML PEN 50 UNITS SC ×2 (00:34→09:18)
[2021-03-24] MEDS: Insulin Aspart 300 UNITS/3 ML PEN SC ×2 (00:34→07:53)
[2021-03-24] MEDS: Heparin 5,000 UNITS/ML VIAL 5000 UNITS SC ×2 (00:35→06:43)
[2021-03-24 03:33] VITALS: BP 104/69; PULSE 76; TEMP 36.3; O2SAT 98
[2021-03-24] MEDS: Pantoprazole 40 MG TABCR PO (06:43)
[2021-03-24] MEDS: oxyCODONE 5 MG TAB 2.5 MG PO (07:50)
[2021-03-24] MEDS: Insulin Aspart 300 UNITS/3 ML PEN 15 UNITS SC (07:52)
[2021-03-24] MEDS: Budesonide/Formoterol 160/4.5 6 GM 60 PUFF INH IH (08:04)
[2021-03-24 08:05] VITALS: BP 120/73; PULSE 83; RESP 18; TEMP 36.4; O2SAT 98
--- NOTE | 2021-03-24 08:38 | NUR.NOTE ---
Patient is considered a fall risk however upon entry to the room the patient did not have a chair or bed alarm. I provided the paitnet with a chair alarm as she wanted to sit in the chair for breakfast. patient seemed upset by it and stated that she did not need it. I explained to the patient that it was for her safety and notified us that due to some of her medications and gait she is at risk for falling and this would prevent her from potentially getting hurt. Patient stated she would ring her call osborne before gettin up. Nursing Note:
[2021-03-24 08:46] VITALS: O2SAT 98
--- NOTE | 2021-03-24 08:58 | DSE_ITS ---
Date of service: 03/24/21 Time of Service: 08:58 DS: Diagnosis Discharge Diagnosis (1) IDDM (insulin dependent diabetes mellitus): Status: Chronic (2) Pulmonary fibrosis: Status: Chronic (3) CHF (congestive heart failure): Status: Chronic (4) COPD (chronic obstructive pulmonary disease): Status: Chronic Discharge Plan Disposition Patient Disposition: SNF (LEVEL 1) [facility] Condition: Stable Discharge Details Reason For Visit: Diabetic Ketoacidosis Admit Date/Time: 03/17/21 12:56 Admit Provider: Fredy Weaver Attending Provider: Fredy Weaver Primary Care Provider: Dharmesh Nolasco Hospital Course Hospital Course: This is a 70-year-old female with past medical history of insulin-dependent diabetes, CHF, COPD, asthma, GERD, chronic constipation, acute kidney injury. She presented to the ED with reports of vomiting every day for the last 2 weeks. Work up in the ED was concerning for DKA. she was given IV fluids and started on an insulin drip and admitted to ICU. Her blood sugars improved and she was weaned off. she was started on basal insulin which was adjusted for better blood sugar control. hemoglobin A1C was found to be 12.1. Her elevated blood sugars thought to be due to her ofev as she has not been compliant with carb restriction as recommended while on that medication, which is 60 grams daily. Respiratory status has remained stable on her home medication. She has remained hemodynamically stable and is ready for discharge. case management has been following and She has been accepted at the [facility] for additional rehabilitation. Home Meds and New Rx's Prescriptions: New acetaminophen [Tylenol] 325 mg Tablet 650 mg PO Q4H PRN PRNQty: 0 RF: 0 Lantus Solostar U-100 Insulin 100 unit/mL (3 mL) Insulin Pen 50 unit subcut BID Qty: 15 RF: 0 Continued donepezil 5 mg tablet 5 mg PO QPM RF: 0 escitalopram oxalate 10 mg tablet 20 mg PO .NOON Qty: 30 RF: 11 loperamide [Anti-Diarrheal (loperamide)] 2 mg tablet 2 mg PO Q6H PRN (Reason: loose stool) Qty: 60 RF: 2 oxycodone 5 mg tablet 2.5 - 5 mg PO Q6H PRN MDD 20mg PRN (Reason: pain) Qty: 60 RF: 0 diphenhydramine HCl [Banophen] 50 mg capsule 50 mg PO QHS PRN (Reason: sleep) Qty: 90 RF: 4 albuterol sulfate [Ventolin HFA] 8 GM HFA aerosol inhaler 2 puff Inhalation Q4H PRN Qty: 1 RF: 4 cyclobenzaprine 5 mg tablet 5 mg PO TID PRN (Reason: muscle spasm) Qty: 90 RF: 6 acidophilus-pectin, citrus 25 million cell -100 mg tablet 1 tab PO TID Qty: 90 RF: 11 albuterol sulfate 2.5 mg /3 mL (0.083 %) solution for nebulization 2.5 mg Inhalation Q6H PRN (Reason: shortness of breath or wheezing) Qty: 10 RF: 6 furosemide 40 mg tablet 40 mg PO DAILY Qty: 30 RF: 11 insulin lispro [Humalog KwikPen Insulin] 100 unit/mL insulin pen See Rx Instructions SC .per ss Qty: 15 RF: 11 pantoprazole 40 mg tablet,delayed release (DR/EC) 40 mg PO DAILY Qty: 90 RF: 3 simvastatin 40 mg tablet 40 mg PO HS Qty: 30 RF: 11 spironolactone 25 mg tablet 25 mg PO DAILY Qty: 30 RF: 11 epinephrine [EpiPen 2-Gordon] 0.3 MG/0.3 ML auto-injector 0.3 mg IM ONCE PRNRF: 0 mycophenolate mofetil 500 mg tablet 500 mg PO BID RF: 0 Changed Breo Ellipta 200-25 mcg/dose blister with device 2 inh IH BID Qty: 0 RF: 0 Ofev 100 mg capsule 100 mg PO DAILY Qty: 0 RF: 0 Discontinued Tresiba FlexTouch U-200 200 unit/mL (3 mL) insulin pen 44 unit subcut DAILY Qty: 9 RF: 4 Jardiance 10 mg tablet 10 mg PO QAM Qty: 30 RF: 11 No Action (DME) Wheeled walker with seat and basket Qty: 1 RF: 0 (DME) FreeStyle Kaye 2 [place] Misc See Rx Instructions .ROUTE .MEDSUPPLY Qty: 1 RF: 0 (DME) FreeStyle Kaye 2 Sensor Kit See Rx Instructions .ROUTE .MEDSUPPLY Qty: 1 RF: 11 (DME) compress.stocking,knee,reg,lrg misc See Dose Instructions .ROUTE .MEDSUPPLY Qty: 2 RF: 0 (DME) Oxygen Tank See Dose Instructions .ROUTE .MEDSUPPLY Qty: 1 RF: 0 (DME) Face mask to deliver Oxygen Qty: 2 RF: 6 (DME) Oxygen Tank See Rx Instructions .ROUTE .MEDSUPPLY Qty: 1 RF: 0 (DME) pen needle, diabetic [Pen Needle] 31 gauge x 5/16 needle 1 ea Miscellaneous QID Qty: 4 RF: 12 (DME) Blood Glucose Test Strip 1 ea Miscellaneous TID Qty: 400 RF: 12 (DME) lancets 28 gauge misc 1 ea Miscellaneous TID Qty: 400 RF: 12 Discharge Instructions Instructions: Heart Failure (DC), Pulmonary Fibrosis (DC), Type 2 Diabetes in the Older Adult (DC) Stand Alone Forms: Nursing Discharge Form Referrals: Dharmesh Nolasco [employer]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] - 04/01/21 4:20 pm Activity:: Activity as Tolerated Equipment/Supplies:: No Equipment Needed Diet:: As Tolerated Discharge Orders Discharge Orders: Discharge Order (Routine); Ordered 03/24/21 Ordered By: Renee De Jesus DS: Summary Time Spent with Patient providing and/or coordinating discharge services: Greater than 30 minutes Status at Discharge Functional status at discharge: independent ambulation Overall status at discharge: patient is progressing back to baseline Mental Status: mental status grossly normal Speech and Movement: speech and movement normal Mood: congruent mood Affect: normal affect Exam Const General: cooperative, no acute distress and frail appearing Nutritional Appearance: overweight Orientation: alert, awake, oriented x3, oriented to person and oriented to place [facility] Head: normocephalic and atraumatic Eyes Sclera: sclerae normal Pupils: PERRL Resp Effort & Inspection: normal respiratory effort Auscultation: diminished lung sounds Cardio Rate: regular rate Rhythm: regular rhythm GI Inspection: obesity Palpation: soft and nontender Auscultation: normal bowel sounds and normoactive bowel sounds Neuro General: no focal motor deficits Speech: speech normal Extrem General: no pedal edema and no calf tenderness Psych Appearance: grossly normal Mental Status: mental status grossly normal Speech and Movement: speech and movement normal Mood: congruent mood Affect: normal affect Attitude: cooperative DS: Data Vitals/I&O Vitals and I&O: Vital Signs Temperature 36.4 C L 03/24/21 08:05 Temperature Source Tympanic 03/24/21 08:05 Pulse 83 03/24/21 08:05 Pulse Rhythm Regular 03/24/21 08:42 Pulse 75 03/19/21 00:01 Respiratory Rate 18 03/24/21 08:05 Respiratory Effort 03/24/21 08:42 Respiratory Depth Normal 03/24/21 08:42 Respiratory Pattern Normal 03/24/21 08:42 Blood Pressure 120/73 03/24/21 08:05 Blood Pressure Mean 64 03/19/21 00:01 Blood Pressure Position Supine 03/18/21 12:00 Pulse Oximetry 98 03/24/21 08:46 Oxygen Delivery Method Room Air 03/24/21 08:46 Oxygen Flow Rate 0 03/24/21 08:46 Pain Level 2 03/24/21 08:05 Comment 03/19/21 02:43 Intake & Output 03/23/21 03/23/21 03/24/21 11:59 23:59 11:59 Intake Total 180 / 660 480 / 660 480 / 480 Output Total 600 / 2500 1900 / 2500 700 / 700 Balance -420 / -1840 -1420 / -1840 -220 / -220 Weight 71.1 kg Intake: Oral 180 / 660 480 / 660 480 / 480 Output: Urine 600 / 2500 1900 / 2500 700 / 700 Other: Urine Color Yellow Yellow Yellow Urine Appearance Clear Clear Clear Urine Odor Normal Normal None Stool Size Large Voiding Methods Toilet Toilet Toilet Data Completed and Pending Labs on day of discharge: Labs from last 24 hours 03/24/21 03/23/21 07:37 09:35 WBC Pending RBC Pending Hgb Pending Hct Pending MCV Pending MCH Pending MCHC Pending RDW Pending Plt Count Pending MPV Pending COVID-19 Source Nasal/nares SARS-CoV-2 (PCR) Negative [facility] Medical History Abdominal pain Acute gastroenteritis (03/16/18) Acute kidney injury (nontraumatic) Acute pneumonitis Anxiety (03/16/18) Asthma Asthma Back pain CHF (congestive heart failure) Chronic constipation (03/16/18) Cognitive impairment (03/16/18) Mild, w/Memory Loss Cubital tunnel syndrome (03/16/18) Depressive disorder DKA (diabetic ketoacidoses) Dyspnea (03/16/18) Edema (03/16/18) Essential hypertension (07/17/13) Gastroesophageal reflux disease without esophagitis (03/16/18) History of shingles (03/16/18) Hyperlipemia Insulin dependent diabetes mellitus Internal derangement of right knee Interstitial lung disease (03/16/18) Pulm: Jedlovsknidia Long-term use of high-risk medication (03/16/18) Metabolic acidosis with normal anion gap and bicarbonate losses Migraine (04/03/14) Neck pain (03/16/18) 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 History of section Ligation of fallopian tube Thoracoscopic (R)Lung Bx (02/12/18) Family History Mother , aged 81 from dementia, per Elly Diabetes Essential hypertension CHF (congestive heart failure) Heart disease CHF/heart failure Dementia Father , aged 80 Diabetes Essential hypertension CAD (coronary artery disease) Heart disease [place] Hyperlipidemia Stroke Sister , aged 54 Diabetes Personal history of malignant neoplasm Lung Asthma Lung cancer Brother , of mesithelioma aged 62 Diabetes Essential hypertension Personal history of malignant neoplasm Lung, Prostate Hyperlipidemia Asthma Mesothelioma Brother , of PE following knee surgery age 69 Pulmonary embolus with infarction Daughter No problems noted. Son No problems noted. Social History Smoking/Tobacco Use Status: Never Smoking risk assessment performed?: Yes Alcohol Intake: current Alcohol Intake frequency: holidays/special occasions only Details: monthly or less Drug use: Never Substance use type: does not use Adopted: No Caregiver/Support person: Yes Foster care: No Household members: none Housing: apartment Number of Children: 2 number of grandchildren: 5 Communication Needs: Hard of Hearing and Corrective Lenses Education Level: middle school Do you need help understanding health information?: Always current occupation: disabled Pets and animals: Yes Pets and animals: cat(s) Sexually active: No Do you think of yourself as: straight/heterosexual Current gender identity: female What is your relationship status?: How often do you talk on the phone with friends or family?: three or more times per week How often do you get together with friends or relatives?: three or more times per week How often do you attend baptist or adventism services?: 1-3 times per year Do you belong to any clubs or organized social groups?: no Panel score (0-1 are the most socially isolated patients): 1 What type of physical activity do you participate in: none and sedentary lifestyle Duration: < 15 minutes/day Frequency: 1-2 times per week Bibi/Anabaptist: Anabaptism Special bibi needs: No Agree to transfusion: Yes Seatbelt use: sometimes Helmet use: No 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
--- NOTE | 2021-03-24 09:00 | INDS_ITS ---
Date of service: 03/24/21 PT Notes Visit Reasons: Diabetic Ketoacidosis Physical Therapy Inpatient Discharge Summary Date: 03/24/21 Dates of service: 03/18/2021 through 03/23/2021 This is a clinical summary of care provided for the duration of dates listed above. No charge was made in the completion of this documentation. Referring Doctor: Fredy Weaver MD PT Orders: PT CONSULT: Eval/Treat Precautions: Standard. Fall. Activity as tolerated. Patient Profile/Admitting Diagnosis: Elly is a 70 old female with congestive heart failure, COPD, and interstitial lung disease presenting to the ED on 03/17/2021 with complaints of nausea vomiting that has persisted for the 2 weeks preceding admission. She is diagnosed with diabetic ketoacidosis with referral to physical therapy today for extended stay weakness. PMHX: Medical History Abdominal pain Acute gastroenteritis (03/16/18) Acute kidney injury (nontraumatic) Acute pneumonitis Anxiety (03/16/18) Asthma Asthma Back pain CHF (congestive heart failure) Chronic constipation (03/16/18) Cognitive impairment (03/16/18) Mild, w/Memory Loss Cubital tunnel syndrome (03/16/18) Depressive disorder DKA (diabetic ketoacidoses) Dyspnea (03/16/18) Edema (03/16/18) Essential hypertension (07/17/13) Gastroesophageal reflux disease without esophagitis (03/16/18) History of shingles (03/16/18) Hyperlipemia Insulin dependent diabetes mellitus Internal derangement of right knee Interstitial lung disease (03/16/18) Pulm: JedlovskyLong-term use of high-risk medication (03/16/18) Metabolic acidosis with normal anion gap and bicarbonate losses Migraine (04/03/14) Neck pain (03/16/18) 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 Hisoleg of section Ligation of fallopian tube Thoracoscopic (R)Lung Bx (02/12/18) Social History/Home Situation: Lives in apartment with 4 steps to enter. Has good family support. Independent with single-point cane at baseline. No falls since last discharge from this hospital on 12/11/2020. Equipment Owned/DME: FWW, SPC Subjective: NT. See most recent [employer] RESURFACER notes. Objective: General Observation: NT. See most recent SMOOTH STUCCO RESURFACER notes. Mental Status: NT. See most recent SMOOTH [employer]UCCO RESURFACER notes. Pain: NT. See most recent S[employer] RESURFACER notes. ROM: Right Upper Extremity: Shoulder Flexion WFL. Shoulder abduction WFL. Elbow flexion WFL. Wrist flexion WFL. Functional opening and closing of hand WFL. Left Upper Extremity: Shoulder Flexion WFL. Shoulder abduction WFL. Elbow flexion WFL. Wrist flexion WFL. Functional opening and closing of hand WFL. Right Lower Extremity: Hip flexion WFL. Hip abduction WFL. Knee flexion WFL. Ankle dorsiflexion WFL. Ankle plantarflexion WFL. Left Lower Extremity: Hip flexion WFL. Hip abduction WFL. Knee flexion WFL. Ankle dorsiflexion WFL. Ankle plantarflexion WFL. Strength: Right Upper Extremity: Shoulder flexors 4/5. Shoulder abductors 4/5. Elbow flexors 4/5. Elbow extensors 4/5. Computing Architect strong. Left Upper Extremity: Shoulder flexors 4/5. Shoulder abductors 4/5. Elbow flexors 4/5. Elbow extensors 4/5. Computing Architect strong. Right Lower Extremity: Hip flexors 4-/5. Hip abductors 4-/5. Knee flexors 4-/5. Knee extensors 4-/5. Ankle dorsiflexors 4-/5. Ankle plantarflexors 4-/5. Left Lower Extremity:Hip flexors 4-/5. Hip abductors 4-/5. Knee flexors 4-/5. Knee extensors 4-/5. Ankle dorsiflexors 4-/5. Ankle plantarflexors 4-/5. Sensation: Intact as to pain and light pressure in bilateral upper and lower e xtremities. Bed Mobility/Transfers: Rolling independent Supine to sit independent Sit to supine independent Sit to stand independent Stand to sit independent Bed to chair independent Chair to bed independent Gait: Level surface ambulation of up to 300 feet using single-point cane with full weight bearing requiring supervision assist only with report of increased fatigue and increased bilateral knee soreness. Balance: Static Sitting: Normal Dynamic Sitting: Normal Static Standing: Fair Dynamic Standing: Fair Assessment: Elly demonstrates improvement in functional mobility performance usi ng single-point cane during this episode of care . Patient will benefit from home health PT services in order to progress mobility level using least restrictive assistive ambulatory device, assess home safety, identify additional equipment needs, and establish a functional maintenance program that will increase ability of patient to remain at home. Patient presents with clinical signs and symptoms consistent with current/admitting diagnoses that have resulted to mobility limitations, gait instability, generalized weakness, and impairment of motor control as demonstrated by the following impairment level findings: 1. Decreased strength to B LE major muscle groups 2. Impaired standing balance Impairments are contributing to the following functional limitations: 1. Inability to safely ambulate without assistive device 2. Increased fall risk 3. Inability to negotiate steps alone safely Goals: Goals X1 week 1. Supine-Sit Independent MET 2. Sit-Supine Independent MET 3. Sit-Stand Independent with SPC MET 4. Stand-Sit Independent with SPC MET 5. Bed-Chair Independent with SPC MET 6. Chair-Bed Independent with SPC MET 7. Gait independent with FWW 150ft with SPC NOT MET 8. Stairs independent with bilateral rails 4 steps with SPC NOT MET 9. Independent with home exercise program 10. To achieve good static and dynamic standing balance to reduce fall risk DISCHARGE RECOMMENDATIONS: Patient will benefit from home health PT services in order to progress mobility level using least restrictive assistive ambulatory device, assess home safety, identify additional equipment needs, and establish a functional maintenance program that will increase ability of patient to remain at home. TREATMENT CODE/TIME: ND Thank you for the opportunity to participate in the care of this patient. Iva Roldan PT, DPT, CLT [facility] [place], [place]
[2021-03-24] MEDS: Normal Saline Flush 10 ML SYR IVP (09:16)
[2021-03-24] MEDS: Nystatin POWDER 15 GM JAR TP (09:17)
[2021-03-24] MEDS: Furosemide 40 MG TAB PO (09:19)
[2021-03-24] MEDS: Spironolactone 25 MG TAB PO (09:19)
--- NOTE | 2021-03-24 10:03 | PDOC.CMDIS ---
- If Service Date Differs Date of service: 03/24/21 Time of Service: 10:03 LACE Index Scoring Tool - Questions: Length of Stay (in days): 7 - 13 Acuity (Admit via E.D.?): Yes Comorbidities: Diabetes w/o Complication, Congestive Heart Failure E.D. Visits: 6 - Answers: Total Score: 15 Risk of Readmission: High Risk Care Management Discharge Reason for Hospitalization: Nausea and vomiting Discharge Plan: Elly will be discharged to [facility] later today . She will transport via [email or web address] coordinated by CM and will follow up with their provider and plan of care. Patient/Family Education Needs: Review of discharge instructions, medications, follow up plan, activity, limitations, Ask Me Three Services Needed at Discharge: Nursing Home Facility
[2021-03-24 10:19] VITALS: PULSE 102; PULSE 95; RESP 16; O2SAT 94; O2SAT 98
== END 2021-03-24 10:35 | disposition skilled nursing facility (03) | DRG 638 ==
LOC: ER 13:12 → ICU 14:27 → MS 03-19 02:40
PROVIDERS: Internal Medicine; Nurse Practitioner Family; Admitting Provider Family Medicine; Emergency Provider Registered Nurse Emergency; PCP Nurse Practitioner Family; Visit Provider Family Medicine
DX: E11.10 Type 2 diabetes mellitus with ketoacidosis without coma (principal); N17.9 Acute kidney failure, unspecified; Z79.4 Long term (current) use of insulin; I50.9 Heart failure, unspecified; K21.9 Gastro-esophageal reflux disease without esophagitis; K59.09 Other constipation; Z20.822 Contact with and (suspected) exposure to COVID-19; E11.43 Type 2 diabetes mellitus with diabetic autonomic (poly)neuropathy; K31.84 Gastroparesis; J43.1 Panlobular emphysema; F41.9 Anxiety disorder, unspecified; M54.9 Dorsalgia, unspecified; G31.84 Mild cognitive impairment of uncertain or unknown etiology; F32.9 Major depressive disorder, single episode, unspecified; I10 Essential (primary) hypertension; E78.5 Hyperlipidemia, unspecified; J84.10 Pulmonary fibrosis, unspecified
CPT/HCPCS: 36415; 36416; 80048; 80053; 82805; 82947; 82962; 83690; 85027; 87635; 93005; 94618; 94640; 96360; 96361; 97162; 97530; 99285; 81003; 83735; 83880; 84100; 84484; 85025; 93010; 99223; 99231; 99232; 99233; 99239; J1644; J1941; J7517

== ENCOUNTER 2021-05-02 16:30 | Inpatient (IN) | payer OTHER, MEDICAID, SELFPAY ==
[2021-05-02] VITALS (45 sets, daily range): BP systolic 94–122; BP diastolic 49–77; PULSE 79–99; RESP 14–23; TEMP 36.3–36.6; O2SAT 85–99
--- NOTE | 2021-05-02 | DI.CT_ITS ---
Exam(s) CT UPPER EXTREMITY LT WO EXAM: CT UPPER EXTREMITY LT WO CLINICAL HISTORY: Displaced prox hum fx TECHNIQUE: Imaging Protocol: Axial computed tomography images with coronal and sagittal reformatted images were created and reviewed. CONTRAST MATERIAL: Intravenous: Omnipaque 350 Contrast volume:structured data in ml Contrast route:I V - Oral: yes / no COMPARISON: X-rays earlier same day reviewed FINDINGS: There is an acute comminuted and impacted fracture of the left humeral neck/head. Although there is no true dislocation of the glenohumeral joint, the fracture lines do extend to the articular surface of the humeral head. Greater tuberosity is also involved. There is an independent 8 x 7 millimeter loose body in the joint space, located superiorly. There has been resection of the distal ipsilateral clavicle. IMPRESSION: Acute comminuted moderately displaced and impacted fracture of the surgical neck/head. Fracture line s extend to the glenohumeral joint surface of the humeral head. There does not appear to be a fractu re of the osseous glenoid There has been previous resection of the distal clavicle. Hemarthrosis. 8 millimeter loose body in the superior joint space noted. RADIATION DOSE DELIVERED: 1,050.93mGy.cm Total DLP DATA REPOSITORY: All CT scans at this facility are submitted to the National Radiology Data Registry (NRDR) Dose Index Registry (DIR) with the [employer] (ACR). RADIATION OPTIMIZATION: All CT scans at this facility use at least one of these dose optimization te chniques: automated exposure control; mA and/or kV adjustment per patient size (includes targeted exa ms where dose is matched to clinical indication); or iterative reconstruction.
--- NOTE | 2021-05-02 16:30 | RT.EKG_ITS ---
APPROVED REPORT Exam: Resting ECG Reason for Exam: syncope Patient Location: E HR:91 bpm ECG Measurements Heart Rate 91 AXIS IL 167 P -3 QRSd 97 QRS -22 QT 369 T 78 QTc 454 Conclusion Sinus rhythm...normal P axis, V-rate 60- 99 LVH with secondary repolarization abnormality...multi-LVH criteria, abnrm ST-T
--- NOTE | 2021-05-02 16:45 | DI.CT_ITS ---
Exam(s) CT HEAD CERVICAL SPINE WO EXAM: CT HEAD CERVICAL SPINE WO CLINICAL HISTORY: dizzy, syncope. TECHNIQUE: Imaging Protocol: Axial computed tomography images with coronal and sagittal reformatted images were created and reviewed COMPARISON: CT CT HEAD CERVICAL SPINE WO from 12/04/2020 FINDINGS: BRAIN: There are no skull fractures nor fluid in the visualized paranasal sinuses. There is no evidence of intracranial hemorrhage, mass effect, or shift of midline structures. There are no extra-axial fluid collections. The ventricles are not enlarged or shifted and there is no blo od within the ventricular system nor within the basal cisterns. CERVICAL SPINE: There is no evidence of fracture nor listhesis. No significant prevertebral soft tissue swelling. There is moderate disc space narrowing at C6-7 level as well as anterior bridging osteophytes at this level and posterior bony ridging. Anterior osteophytes also seen at C4-5 and C5-6 levels with mild disc space narrowing at these levels evident. There is mild degenerative anterolisthesis of C4 upon C5. Multilevel degenerative changes in the facet joints evident. There is no significant facet joint malalignment. No significant osseous lesions evident. IMPRESSION: No acute intracranial findings on this noninfused CT scan of the brain. Multilevel degenerative disc disease and degenerative facet arthropathy in the cervical spine. No evidence of cervical spine fracture, malalignment, nor acute compromise of the cervical spinal can al. RADIATION DOSE DELIVERED: 1,361.39mGy.cm Total DLP DATA REPOSITORY: All CT scans at this facility are submitted to the National Radiology Data Registry (NRDR) Dose Index Registry (DIR) with the [employer] (ACR). RADIATION OPTIMIZATION: All CT scans at this facility use at least one of these dose optimization te chniques: automated exposure control; mA and/or kV adjustment per patient size (includes targeted exa ms where dose is matched to clinical indication); or iterative reconstruction.
--- NOTE | 2021-05-02 16:45 | DI.RAD_ITS ---
Exam(s) XR SHOULDER LT COMPLETE 2+V EXAM: XR SHOULDER LT COMPLETE 2+V CLINICAL HISTORY: fall, pain. TECHNIQUE: 2D digital imaging was performed. COMPARISON: Prior x-rays 12/05/2020 FINDINGS: Again noted is resection of the distal clavicle. There is now an acute fracture of the humeral head-neck with impaction. No dislocation the glenohume ral joint at this time. Previously described calcific density subjacent to the acromion is again not ed. IMPRESSION: Acute humeral head neck fracture DATA REPOSITORY: RADIATION DOSE DELIVERED:
--- NOTE | 2021-05-02 16:45 | DI.RAD_ITS ---
Exam(s) XR CHEST 2V PA LATERAL EXAM: XR CHEST 2V PA LATERAL CLINICAL HISTORY: syncope, fall. TECHNIQUE: 2D digital imaging was performed. COMPARISON: CR,XR XR PORTABLE CHEST AP from 11/15/2020 FINDINGS: There is an acute fracture of the left humeral head-neck. Also pre-existing loose intra-articular bod y-calcification in the subacromial space of the same-left shoulder and there is evidence of previous resection of the ipsilateral AC joint Size is unchanged. Mediastinum unchanged. Interstitial disease is again noted. However, the previousl y present infiltrate in the right upper lobe is less evident than on the October 2020 images. The inf iltrate in the mid left lung is unchanged as is some infiltrate in left lower lobe. No obvious pleura l effusions. There is no pneumothorax. IMPRESSION: Pulmonary findings as above with some improvement when compared to 11/15/2020 There is an acute appearing fracture of the left shoulder as described above. There is no pneumothora x. DATA REPOSITORY: RADIATION DOSE DELIVERED:
[2021-05-02 17:10] LABS: Abs Immature Grans 0.05 10^3/uL (0.0-0.06); Absolute Basophil Count 0.05 10^3/uL (0.0-0.2); Absolute Eosinophil Count 0.05 10^3/uL (0.0-0.7); Absolute Lymphocyte Count 2.49 10^3/uL (1.2-3.4); Basophils % 0.4; Eosinophils % 0.4; HGB 13.1 g/dL (11.2-15.7); Immature Grans % 0.4; Lymphocytes % 18.5; MCH 29.9 pg (27.0-33.0); MCV 93.6 fL (80-95); MPV 9.5 fL (8.0-11.0); Monocytes % 6.7; Neutrophils % 73.6; Nucleated RBC 0 %; Platelet Count 358 10^3/uL (130-400); RBC 4.38 10^6/uL (3.93-5.22); RDW 14.2 % (11.7-14.6); RDW-SD 48.3 fL; WBC 13.46 10^3/uL (4.4-10.8)
--- NOTE | 2021-05-02 17:10 | ED.GENADUL_ITS ---
Discharge Plan Disposition Patient Disposition: [facility] INPATIENT Condition: Stable Discharge Details Chief Complaint: Dizzy/Sync Clinical Impression: Fracture of humerus, proximal, left, closed, Syncope Admit Date/Time: 05/02/21 19:55 Admit Provider: Víctor Nolasco Attending Provider: Víctor Nolasco Primary Care Provider: Dharmesh Nolasco ED Provider: Dania Santos Medical Decision Making X-ray interpretation with humeral neck fracture -Sling for standing Case discussed with Dr. Abad, orthopedic, will consult Neurovascularly intact Bandlike vasovagal episode, however given age and comorbidities, will admit overnight for observation Patient agreeable to admission at this time, alert and oriented CT head and neck do not show evidence of acute pathology Chest x-ray does not show evidence of acute pathology per radiology interpretation in my review Urinalysis does not show evidence of infectious etiology of symptoms Patient was in discomfort therefore IV Tylenol and fentanyl were administered Mild leukocytosis, I do not see infectious etiology of patient's symptoms BUN slightly elevated creatinine slightly elevated, 1.5 and 29, consistent with patient's prior when compared Given syncopal event and intractable pain, patient will be admitted to the hospitalist service, Dr. Nolasco agreeable to admission at this time Patient maintains alert and oriented throughout this encounter -Telemetry monitoring Obvious electrolyte abnormality Do not check orthostatics secondary to current discomfort and baseline unsteady gait Medical Records Medical records reviewed: Yes I reviewed the patient's medical records. Lab Data Lab results reviewed: Yes I reviewed the patient's lab results. ECG Data Prior ECG tracings: available for review HPI General Mode of arrival: ambulatory . Date/Time Provider Initiated Documentation: 05/02/21 16:45 . Limitations to Documentation: no limitations . Information obtained by: patient . HPI Narrative: 70-year-old female presents with left shoulder pain status post syncopal event. Patient states she fell yesterday, standing at the edge of this step when she lost her balance and landed on her left shoulder. She did not lose consciousness or hit her head reportedly. She states that the pain is been persistent since her fall. She states today she was using her walker to walk into the bathroom and stood up from urinating and felt very lightheaded and became diaphoretic. Her son went into the room and she was leaning against the wall, she was not responding to him reportedly. He states that this lasted approximately 1 minute, he lowered her to the ground. He denies any injuries associated. He checked her blood sugar and found it to be 240, he gave her 5 units of insulin. Patient states that she has not felt similarly to this in the past. She denies any shortness of breath or current dizziness. She denies any shortness of breath or chest pain prior to the episode. She denies any recent changes in her medications. She denies anticoagulation. She denies any headache. She states she does not remember the event. There is no reported seizure-like activity and patient was not incontinent of urine reportedly. She felt fine aside from the pain in her left shoulder when she awoke. She denies any additional pain complaints. She denies any vision change. Grandson states that she was not confused reportedly. She was alert immediately after the event occurred reportedly. There is no vomiting. Related Data Home Medications Medication Instructions Recorded Confirmed albuterol sulfate [Ventolin HFA] 2 puff INHALATION Q4H PRN #1 10/09/14 05/02/21 inhaler compress.stocking,knee,reg,lrg #2 each 10/29/18 03/17/21 Oxygen #1 each 11/29/18 03/04/21 Wheeled walker with seat and basket #1 ea 02/07/19 03/17/21 Face mask to deliver Oxygen #2 each 04/23/19 03/17/21 epinephrine [EpiPen 2-Gordon] 0.3 mg IM ONCE PRN 06/12/20 05/02/21 Oxygen #1 each 06/25/20 03/17/21 cyclobenzaprine 5 mg tablet 5 mg PO TID PRN #90 tab 07/27/20 05/02/21 furosemide 40 mg tablet 40 mg PO DAILY #30 tab 08/03/20 05/02/21 pen needle, diabetic 31 gauge x #4 box 08/03/20 03/17/2103/07 donepezil 5 mg tablet 5 mg PO QPM tab 11/20/20 05/02/21 loperamide 2 mg tablet 2 mg PO Q6H PRN #60 tab 11/20/20 05/02/21 flash glucose scanning reader #1 ea 02/23/21 03/17/21 flash glucose sensor #1 ea 02/23/21 03/17/21 pantoprazole 40 mg tablet,delayed 40 mg PO DAILY #90 tab 03/08/21 05/02/21 release simvastatin 40 mg tablet 40 mg PO HS #30 tab 03/08/21 05/02/21 spironolactone 25 mg tablet 25 mg PO DAILY #30 tab 03/08/21 05/02/21 blood sugar diagnostic #400 strip 03/10/21 03/17/21 lancets 28 gauge #400 ea 03/10/21 03/17/21 mycophenolate mofetil 500 mg PO BID 03/22/21 05/02/21 Breo Ellipta 2 inh IH BID #0 ea 03/24/21 05/02/21 Ofev 100 mg PO DAILY #0 cap 03/24/21 05/02/21 acetaminophen [Tylenol] 650 mg PO Q4H PRN PRN #0 tab 03/24/21 05/02/21 acidophilus-pectin, citrus 1 tab PO BID 05/02/21 05/02/21 escitalopram oxalate 5 mg PO .QHS 05/02/21 05/02/21 insulin glargine [Lantus Solostar 46 unit SUBCUT .QHS 05/02/21 05/02/21 U-100 Insulin] insulin glargine [Lantus Solostar 54 unit SUBCUT .AM 05/02/21 05/02/21 U-100 Insulin] insulin lispro [Humalog KwikPen 2 unit SC DAILY 05/02/21 05/02/21 Insulin] insulin lispro [Humalog KwikPen 5 unit SUBCUT .BEFORE SUPPER 05/02/21 05/02/21 Insulin] Previous Rx's Medication Instructions Recorded compress.stocking,knee,reg,lrg #2 each 10/29/18 Wheeled walker with seat and basket #1 ea 02/07/19 Face mask to deliver Oxygen #2 each 04/23/19 cyclobenzaprine 5 mg tablet 5 mg PO TID PRN #90 tab 07/27/20 furosemide 40 mg tablet 40 mg PO DAILY #30 tab 08/03/20 pen needle, diabetic 31 gauge x #4 box 08/03/2003/07 loperamide 2 mg tablet 2 mg PO Q6H PRN #60 tab 11/20/20 flash glucose scanning reader #1 ea 02/23/21 flash glucose sensor #1 ea 02/23/21 pantoprazole 40 mg tablet,delayed 40 mg PO DAILY #90 tab 03/08/21 release simvastatin 40 mg tablet 40 mg PO HS #30 tab 03/08/21 spironolactone 25 mg tablet 25 mg PO DAILY #30 tab 03/08/21 blood sugar diagnostic #400 strip 03/10/21 lancets 28 gauge #400 ea 03/10/21 Breo Ellipta 2 inh IH BID #0 ea 03/24/21 Ofev 100 mg PO DAILY #0 cap 03/24/21 acetaminophen [Tylenol] 650 mg PO Q4H PRN PRN #0 tab 03/24/21 Allergies Allergy/AdvReac Type Severity Reaction Status Date / Time aspirin Allergy Unknown HIVES, Verified 05/02/21 16:46 flip out diclofenac Allergy Unknown RASH Verified 05/02/21 16:46 latex Allergy Unknown SKIN Verified 05/02/21 16:46 BREAKDOWN NSAIDS (Non-Steroidal Allergy Unknown HIVES, Verified 05/02/21 16:46 Anti-Inflamma VOMITING morphine AdvReac Unknown VOMITING Verified 05/02/21 16:46 General Stated Complaint: Dizzy/Sync ALVIN: 3 Review of Systems All systems reviewed & are unremarkable except as noted in HPI and below PFSH Medical History Abdominal pain Acute gastroenteritis (03/16/18) Acute kidney injury (nontraumatic) Acute pneumonitis Anxiety (03/16/18) Asthma Asthma Back pain CHF (congestive heart failure) Chronic constipation (03/16/18) Cognitive impairment (03/16/18) Mild, w/Memory Loss Cubital tunnel syndrome (03/16/18) Depressive disorder DKA (diabetic ketoacidoses) Dyspnea (03/16/18) Edema (03/16/18) Essential hypertension (07/17/13) Gastroesophageal reflux disease without esophagitis (03/16/18) History of shingles (03/16/18) Hyperlipemia Insulin dependent diabetes mellitus Internal derangement of right knee Interstitial lung disease (03/16/18) Pulm: [place] Long-term use of high-risk medication (03/16/18) Metabolic acidosis with normal anion gap and bicarbonate losses Migraine (04/03/14) Neck pain (03/16/18) 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 History of section Ligation of fallopian tube Thoracoscopic (R)Lung Bx (02/12/18) Family History Mother , aged 81 from dementia, per Elly Diabetes Essential hypertension CHF (congestive heart failure) Heart disease CHF/heart failure Dementia Father , aged 80 Diabetes Essential hypertension CAD (coronary artery disease) Heart disease [place] Hyperlipidemia Stroke Sister , aged 54 Diabetes Personal history of malignant neoplasm Lung Asthma Lung cancer Brother , of mesithelioma aged 62 Diabetes Essential hypertension Personal history of malignant neoplasm Lung, Prostate Hyperlipidemia Asthma Mesothelioma Brother , of PE following knee surgery age 69 Pulmonary embolus with infarction Daughter No problems noted. Son No problems noted. Social History Smoking/Tobacco Use Status: Never Smoking risk assessment performed?: Yes Alcohol Intake: current Alcohol Intake frequency: holidays/special occasions only Details: monthly or less Drug use: Never Substance use type: does not use Adopted: No Caregiver/Support person: Yes Foster care: No Household members: none Housing: apartment Number of Children: 2 number of grandchildren: 5 Communication Needs: Hard of Hearing and Corrective Lenses Education Level: middle school Do you need help understanding health information?: Always current occupation: disabled Pets and animals: Yes Pets and animals: cat(s) Sexually active: No Do you think of yourself as: straight/heterosexual Current gender identity: female What is your relationship status?: How often do you talk on the phone with friends or family?: three or more times per week How often do you get together with friends or relatives?: three or more times per week How often do you attend jain or scientology services?: 1-3 times per year Do you belong to any clubs or organized social groups?: no Panel score (0-1 are the most socially isolated patients): 1 What type of physical activity do you participate in: none and sedentary lifestyle Duration: < 15 minutes/day Frequency: 1-2 times per week Bibi/Alevism: [employer]aritan Special bibi needs: No Agree to transfusion: Yes Seatbelt use: sometimes Helmet use: No Drive intox or ride w/intox airport driver: No Water heater temp set <120 deg: Yes Working smoke detector in home: Yes Fire extinguisher in home: Yes Carbon monox detector in home: Yes Do you feel safe at home: Yes Do you feel safe in your relationship?: Yes Victim of physical abuse: No Victim of emotional abuse: No Victim of sexual abuse: No Would you like helpful sources: No Exam Const General: cooperative and frail appearing Orientation: alert and oriented x3 HENMT Head: normal to inspection Other: Moist membranes, no visible evidence of trauma, no hemotympanum Eyes Pupils: PERRL Neck Other: No midline tenderness Chest Chest: normal inspection of the chest Resp Effort & Inspection: normal respiratory effort Cardio Rate: regular rate Rhythm: regular rhythm GI Inspection: normal to inspection Other: No abdominal tenderness or CVA tenderness Skin General skin exam: no rashes or lesions noted Neuro General: patient alert and patient oriented x3 Cranial Nerves: CN's II-XI intact bilaterally Other: GCS 15, negative pronator drift, negative heel robles Sensation and strength and sensation intact distally Extrem Other: No calf swelling or tenderness appreciated Distal pulses intact Course Vital Signs Vital signs: Vital Signs Temperature 36.3 C L 05/02/21 16:39 Pulse 95 H 05/02/21 16:39 Respiratory Rate 92 H 05/02/21 16:39 Blood Pressure 107/62 05/02/21 16:39 Pulse Oximetry 99 05/02/21 16:39 Temperature 36.3 C L 05/02/21 16:39 Temperature Source Skin 05/02/21 16:39 Pulse 95 H 05/02/21 16:39 Respiratory Rate 92 H 05/02/21 16:39 Respiratory Effort Non-Labored 05/02/21 16:39 Blood Pressure 107/62 05/02/21 16:39 Blood Pressure Position Supine 05/02/21 16:39 Pulse Oximetry 99 05/02/21 16:39 Oxygen Delivery Method Room Air 05/02/21 16:39 Oxygen Flow Rate 0 05/02/21 16:39 Pain Level 10 05/02/21 16:39
[2021-05-02 17:11] LABS: Absolute Neutrophil Count 9.91 10^3/uL (1.2-6.7)
[2021-05-02 17:24] LABS: ALT 14 U/L (14-59); AST 9 U/L (15-37); Albumin 4.1 g/dL (3.4-5.0); Alkaline Phosphatase 88 U/L (46-116); Anion Gap 12.4 mmol/L (3-11); BUN 29 mg/dL (7-18); CO2 28.6 mmol/L (21.0-32.0); CREATININE 1.5 mg/dL (0.55-1.02); Calcium 9.7 mg/dL (8.5-10.1); Chloride 103 mmol/L (98-107); Estimated GFR 34.43 (mL/min/1.73m2); Glucose 100 mg/dL (74-106); Magnesium 2.2 mg/dL (1.8-2.4); Potassium 3.6 mmol/L (3.5-5.1); Sodium 144 mmol/L (136-145); Total Protein 8.1 g/dL (6.4-8.2)
[2021-05-02 17:30] LABS: Troponin I < 0.05 ng/mL (<0.06)
[2021-05-02 17:43] LABS: Bilirubin Negative (Negative); Blood Negative (Negative); Clarity Clear (Clear); Glucose Negative (Negative); Ketones Negative (Negative); Leukocyte Esterase Negative (Negative); Nitrite Negative (Negative); Urobilinogen 0.2 EU/dL (Up TO 0.2); pH 5.5 (5-8)
[2021-05-02] MEDS: fentaNYL 100 MCG/2 ML VIAL 50 MCG IVP (18:18)
--- NOTE | 2021-05-02 18:40 | DI.VRAD_ITS ---
PROCEDURE INFORMATION: Exam: XR Left Shoulder Exam date and time: 05/02/2021 5:01 PM Age: 70 years old Clinical indication: Pain; Left; Prior surgery; Surgery type: Dislocated shoulder, surgical repair TECHNIQUE: Imaging protocol: XR Left shoulder. Views: 2 or more views. COMPARISON: CR XR SHOULDER LT COMPLETE 2+V 12/05/2020 4:04 PM FINDINGS: Bones/joints: Acute impacted and moderately angulated fracture of the left humeral neck with subluxation from the glenohumeral joint space due to joint hemarthrosis. Left distal clavicle osteolysis. Well corticated loose body in the joint space. Lungs: The visualized left upper lung field is clear. Soft tissues: Normal. IMPRESSION: Acute impacted and moderately angulated fracture of the left humeral neck with subluxation from the glenohumeral joint space due to joint hemarthrosis. Dictated and Authenticated by: Yasir Navarro MD. Ordering:RHEA Najera MD
--- NOTE | 2021-05-02 18:43 | DI.VRAD_ITS ---
PROCEDURE INFORMATION: Exam: CT Head Without Contrast Exam date and time: 05/02/2021 5:01 PM Age: 70 years old Clinical indication: Injury or trauma; Fall; Blunt trauma (contusions or hematomas) TECHNIQUE: Imaging protocol: Computed tomography of the head without contrast. COMPARISON: CT HEAD CERVICAL SPINE WO 12/04/2020 7:38 PM FINDINGS: Brain: No acute intracranial hemorrhage, mass-effect, midline shift, or extra-axial collection is seen. The krause white matter differentiation appears preserved. There is mild symmetric parenchymal volume loss. Cerebral ventricles: The ventricular system and basilar cisterns appear appropriate in size and configuration. Paranasal sinuses: The visualized paranasal sinuses appear well-aerated. Mastoid air cells: The mastoid air cells appear well-aerated. Auditory system: The middle ear cavities appear clear. Orbital cavity: The globes and intraorbital structures appear grossly intact. Vasculature: There is atherosclerotic calcification within the intracranial portion of the internal carotid arteries bilaterally. Bones/joints: The bony calvarium appears intact. No depressed skull fracture is seen. Soft tissues: There is a small right frontal scalp lipoma, image 17 of series 3. No gross focal scalp hematoma is seen. IMPRESSION: No acute intracranial hemorrhage or depressed skull fracture. PROCEDURE INFORMATION: Exam: CT Cervical Spine Without Contrast Exam date and time: 05/02/2021 5:01 PM Age: 70 years old Clinical indication: Injury or trauma; Fall; Blunt trauma (contusions or hematomas) TECHNIQUE: Imaging protocol: Computed tomography images of the cervical spine without contrast. COMPARISON: CT HEAD CERVICAL SPINE WO 12/04/2020 7:38 PM FINDINGS: Vertebrae: No acute cervical fracture is seen. There is straightening of the normal cervical lordosis. This can be seen in the presence of a cervical collar or may result from muscle spasm or positioning. C2-C3: Disc height preserved. No significant cervical stenosis or foraminal narrowing. C3-C4: Disc height preserved. Moderate-severe bilateral foraminal narrowing. No significant cervical stenosis. Mild bilateral foraminal narrowing. C4-C5: Disc height preserved. Anterior osteophytes. Moderate-severe left-sided facet arthrosis. No significant cervical stenosis or right-sided foraminal narrowing. Mild left-sided foraminal narrowing. C5-C6: Disc height preserved. Large anterior osteophytes. Moderate-severe right-sided facet arthrosis. No significant cervical stenosis or foraminal narrowing. C6-C7: Loss of disc height with endplate irregularities. Large anterior osteophytes. Posterior osteophytic ridging with bilateral uncovertebral hypertrophy. Mild central canal narrowing. Moderate bilateral foraminal narrowing. C7-T1: No significant cervical stenosis or foraminal narrowing. Soft tissues: Within the limits of the exam, no gross soft tissue fluid collection is seen in the neck. Thyroid: The thyroid gland is partially excluded from view but appears grossly unremarkable through its visualized portion. Lungs: The extreme right lung apex appears clear. The left lung apex is excluded from view. IMPRESSION: No acute cervical fracture is seen. Dictated and Authenticated by: Morgan Johnston MD. Ordering:RHEA Najera MD
--- NOTE | 2021-05-02 18:44 | DI.VRAD_ITS ---
PROCEDURE INFORMATION: Exam: XR Chest Exam date and time: 05/02/2021 5:01 PM Age: 70 years old Clinical indication: Injury or trauma; Fall; Blunt trauma (contusions or hematomas); Prior surgery TECHNIQUE: Imaging protocol: XR of the chest. Views: 2 views. COMPARISON: CT CHEST/ABD/PEL WO 12/04/2020 7:54 PM FINDINGS: Lungs: Lingular atelectasis. No large consolidation. Pleural spaces: Unremarkable. No pleural effusion. No pneumothorax. Heart/Mediastinum: Moderate size hiatal hernia. Vasculature: Tortuous aorta. Bones/joints: Acute left humeral neck fracture with moderate angulation and impaction. Significant left shoulder joint hemarthrosis with subluxation. IMPRESSION: Lingular atelectasis. No acute cardiopulmonary finding. Dictated and Authenticated by: Yasir Navarro MD. Ordering:RHEA Najera MD
--- NOTE | 2021-05-02 19:42 | W.PM.HP.N ---
Date of service: 05/02/21 Time of Service: 19:42 Assessment and Plan Assessment and plan (1) Fracture of humerus, proximal, left, closed: Status: Acute Assessment and plan: 1. Humerus fracture: conservative management, f/u with Ortho in AM 2. Syncope:no doubt vagal, or micturition syncope. Highly doubt arhythmia, but will have on telemetry overnight. 3. DM: Will reduce usual basal insulin by 50% until we see how does with PO, cover with SS in meantime. Reviewed ADs, requests Full Code Qualifiers: Encounter type: initial encounter Fracture morphology: other fracture Fracture alignment: displaced Qualified Code(s): S42.292A - Other displaced fracture of upper end of left humerus, initial encounter for closed fracture History of Present Illness History of Present Illness Chief Complaint: syncope and humerus fracture Narrative: 70 female, lives alone, uses cane, has assistance with HH and family. One day [employer] had mechanical fall, struck left side. Struggled to manage through today. Then had syncopal episode today: after urinating, stood up, felt lightheaded and diaphoretic, and slumped to side. Son outside did not hear any fall but when he checked on her she was slumped against the wall and briefly unresponsive. he describes her as diaphoretic. No information on pallor or pulse. Here in ER findings of note for left humeral neck fracture, negative head CT, EKG and troponin. Orthopedics was contacted and advised medical management for now, with additional imaging in AM. Suggests probably not good surgical candidate. Patient admitted for pain management and telemetry to r/o arhythmia. Has received Fentanyl 50 and APAP. Review of Systems All systems reviewed & are unremarkable except as noted in HPI and below PFSH Medical History Abdominal pain Acute gastroenteritis (03/16/18) Acute kidney injury (nontraumatic) Acute pneumonitis Anxiety (03/16/18) Asthma Asthma Back pain CHF (congestive heart failure) Chronic constipation (03/16/18) Cognitive impairment (03/16/18) Mild, w/Memory Loss Cubital tunnel syndrome (03/16/18) Depressive disorder DKA (diabetic ketoacidoses) Dyspnea (03/16/18) Edema (03/16/18) Essential hypertension (07/17/13) Gastroesophageal reflux disease without esophagitis (03/16/18) History of shingles (03/16/18) Hyperlipemia Insulin dependent diabetes mellitus Internal derangement of right knee Interstitial lung disease (03/16/18) Pulm: Trevondlgianlucandiia Long-term use of high-risk medication (03/16/18) Metabolic acidosis with normal anion gap and bicarbonate losses Migraine (04/03/14) Neck pain (03/16/18) 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 History of section Ligation of fallopian tube Thoracoscopic (R)Lung Bx (02/12/18) Family History Mother , aged 81 from dementia, per Elly Diabetes Essential hypertension CHF (congestive heart failure) Heart disease CHF/heart failure Dementia Father , aged 80 Diabetes Essential hypertension CAD (coronary artery disease) Heart disease [place] Hyperlipidemia Stroke Sister , aged 54 Diabetes Personal history of malignant neoplasm Lung Asthma Lung cancer Brother , of mesithelioma aged 62 Diabetes Essential hypertension Personal history of malignant neoplasm Lung, Prostate Hyperlipidemia Asthma Mesothelioma Brother , of PE following knee surgery age 69 Pulmonary embolus with infarction Daughter No problems noted. Son No problems noted. Social History Smoking/Tobacco Use Status: Never Smoking risk assessment performed?: Yes Alcohol Intake: current Alcohol Intake frequency: holidays/special occasions only Details: monthly or less Drug use: Never Substance use type: does not use Adopted: No Caregiver/Support person: Yes Foster care: No Household members: none Housing: apartment Number of Children: 2 number of grandchildren: 5 Communication Needs: Hard of Hearing and Corrective Lenses Education Level: middle school Do you need help understanding health information?: Always current occupation: disabled Pets and animals: Yes Pets and animals: cat(s) Sexually active: No Do you think of yourself as: straight/heterosexual Current gender identity: female What is your relationship status?: How often do you talk on the phone with friends or family?: three or more times per week How often do you get together with friends or relatives?: three or more times per week How often do you attend pentecostalism or yazidism services?: 1-3 times per year Do you belong to any clubs or organized social groups?: no Panel score (0-1 are the most socially isolated patients): 1 What type of physical activity do you participate in: none and sedentary lifestyle Duration: < 15 minutes/day Frequency: 1-2 times per week Bibi/Restorationist: Christian Special bibi needs: No Agree to transfusion: Yes Seatbelt use: sometimes Helmet use: No Drive intox or ride w/intox electric pile driver operator: No Water heater temp set <120 deg: Yes Working smoke detector in home: Yes Fire extinguisher in home: Yes Carbon monox detector in home: Yes Do you feel safe at home: Yes Do you feel safe in your relationship?: Yes Victim of physical abuse: No Victim of emotional abuse: No Victim of sexual abuse: No Would you like helpful sources: No Meds Allergies and Home Medications Allergies Allergy/AdvReac Type Severity Reaction Status Date / Time aspirin Allergy Unknown HIVES, Verified 05/02/21 16:46 flip out diclofenac Allergy Unknown RASH Verified 05/02/21 16:46 latex Allergy Unknown SKIN Verified 05/02/21 16:46 BREAKDOWN NSAIDS (Non-Steroidal Allergy Unknown HIVES, Verified 05/02/21 16:46 Anti-Inflamma VOMITING morphine AdvReac Unknown VOMITING Verified 05/02/21 16:46 Home Medications Medication Instructions Recorded Confirmed Type albuterol sulfate [Ventolin HFA] 2 puff INHALATION Q4H PRN #1 10/09/14 05/02/21 History inhaler compress.stocking,knee,reg,lrg #2 each 10/29/18 03/17/21 Rx Oxygen #1 each 11/29/18 03/04/21 History Wheeled walker with seat and basket #1 ea 02/07/19 03/17/21 Rx Face mask to deliver Oxygen #2 each 04/23/19 03/17/21 Rx epinephrine [EpiPen 2-Gordon] 0.3 mg IM ONCE PRN 06/12/20 05/02/21 History Oxygen #1 each 06/25/20 03/17/21 History cyclobenzaprine 5 mg tablet 5 mg PO TID PRN #90 tab 07/27/20 05/02/21 Rx furosemide 40 mg tablet 40 mg PO DAILY #30 tab 08/03/20 05/02/21 Rx pen needle, diabetic 31 gauge x #4 box 08/03/20 03/17/21 Rx / donepezil 5 mg tablet 5 mg PO QPM tab 11/20/20 05/02/21 History loperamide 2 mg tablet 2 mg PO Q6H PRN #60 tab 11/20/20 05/02/21 Rx flash glucose scanning reader #1 ea 02/23/21 03/17/21 Rx flash glucose sensor #1 ea 02/23/21 03/17/21 Rx pantoprazole 40 mg tablet,delayed 40 mg PO DAILY #90 tab 03/08/21 05/02/21 Rx release simvastatin 40 mg tablet 40 mg PO HS #30 tab 03/08/21 05/02/21 Rx spironolactone 25 mg tablet 25 mg PO DAILY #30 tab 03/08/21 05/02/21 Rx blood sugar diagnostic #400 strip 03/10/21 03/17/21 Rx lancets 28 gauge #400 ea 03/10/21 03/17/21 Rx mycophenolate mofetil 500 mg PO BID 03/22/21 05/02/21 History Breo Ellipta 2 inh IH BID #0 ea 03/24/21 05/02/21 Rx Ofev 100 mg PO DAILY #0 cap 03/24/21 05/02/21 Rx acetaminophen [Tylenol] 650 mg PO Q4H PRN PRN #0 tab 03/24/21 05/02/21 Rx acidophilus-pectin, citrus 1 tab PO BID 05/02/21 05/02/21 History escitalopram oxalate 5 mg PO .QHS 05/02/21 05/02/21 History insulin glargine [Lantus Solostar 46 unit SUBCUT .QHS 05/02/21 05/02/21 History U-100 Insulin] insulin glargine [Lantus Solostar 54 unit SUBCUT .AM 05/02/21 05/02/21 History U-100 Insulin] insulin lispro [Humalog KwikPen 2 unit SC DAILY 05/02/21 05/02/21 History Insulin] insulin lispro [Humalog KwikPen 5 unit SUBCUT .BEFORE SUPPER 05/02/21 05/02/21 History Insulin] Exam Narrative Exam Narrative: 122/68, 87, 36.6, 15, 94% RA. HEENT atraumatic; neck supple; lungs clear; heart RRR; abdomen soft and NT; extremities no pedal edema, LUE in sling, distal CSM intact; neuro ox3, moves all 4s Results Labs Result diagrams: 05/02/21 16:40 05/02/21 16:40 Labs: Laboratory Results - last 24 hr 05/02/21 05/02/21 05/02/21 16:40 16:40 16:40 WBC 13.46 H RBC 4.38 Hgb 13.1 Hct 41.0 MCV 93.6 MCH 29.9 MCHC 32.0 RDW 14.2 Plt Count 358 MPV 9.5 Immature Gran % 0.4 Neutrophils % 73.6 Lymphocytes % 18.5 Monocytes % 6.7 Eosinophils % 0.4 Basophils % 0.4 Nucleated RBC % 0 Absolute Neutrophils 9.91 H Absolute Lymphocytes 2.49 Absolute Monocytes 0.90 H Absolute Eosinophils 0.05 Absolute Basophils 0.05 Sodium 144 Potassium 3.6 Chloride 103 Carbon Dioxide 28.6 Anion Gap 12.4 H BUN 29 H Creatinine 1.5 H Estimated GFR/1.73 m2 34.43 Glucose 100 Calcium 9.7 Magnesium 2.2 Total Bilirubin 1.0 AST 9 L ALT 14 Alkaline Phosphatase 88 Troponin I < 0.05 Total Protein 8.1 Albumin 4.1 Urine Color Urine Clarity Urine pH Ur Specific [place] Urine Protein Urine Ketones Urine Blood Urine Nitrite Urine Bilirubin Urine Urobilinogen Ur Leukocyte Esterase Urine Glucose 05/02/21 17:33 WBC RBC Hgb Hct MCV MCH MCHC RDW Plt Count MPV Immature Gran % Neutrophils % Lymphocytes % Monocytes % Eosinophils % Basophils % Nucleated RBC % Absolute Neutrophils Absolute Lymphocytes Absolute Monocytes Absolute Eosinophils Absolute Basophils Sodium Potassium Chloride Carbon Dioxide Anion Gap BUN Creatinine Estimated GFR/1.73 m2 Glucose Calcium Magnesium Total Bilirubin AST ALT Alkaline Phosphatase Troponin I Total Protein Albumin Urine Color Yellow Urine Clarity Clear Urine pH 5.5 Ur Specific [place] 1.020 Urine Protein Negative Urine Ketones Negative Urine Blood Negative Urine Nitrite Negative Urine Bilirubin Negative Urine Urobilinogen 0.2 Ur Leukocyte Esterase Negative Urine Glucose Negative Last Vital Signs Temp 36.6 C 05/02/21 18:23 Pulse 87 05/02/21 18:27 Resp 15 05/02/21 18:27 BP 122/68 05/02/21 18:27 Pulse Ox 94 05/02/21 18:27
--- NOTE | 2021-05-02 20:07 | DI.VRAD_ITS ---
PROCEDURE INFORMATION: Exam: CT Left Upper Extremity Without Contrast, Upper Arm Exam date and time: 05/02/2021 7:11 PM Age: 70 years old Clinical indication: Injury or trauma; Fall; Blunt trauma (contusions or hematomas); Arm, upper; Left TECHNIQUE: Imaging protocol: CT of the Left upper extremity without contrast was performed. Exam focused on the upper arm. COMPARISON: CR XR SHOULDER LT COMPLETE 2+V 05/02/2021 6:00 PM FINDINGS: Bones/joints: Acute comminuted moderately displaced and impacted fracture of the left humeral neck with roughly 2.4 cm impaction into the humeral head. Glenohumeral joint space hemarthrosis without evidence for dislocation or subluxation. Dense sclerotic loose body in the joint space measuring 8 mm. Tiny avulsion fragment arising from the coracoid process. Probable postsurgical resection of the distal left clavicle. Correlate with prior operative reports. No additional fracture in the visualized left hemithorax. Soft tissues: Normal. Vasculature: Cardiomegaly with moderate coronary artery calcifications. Lungs: Subpleural reticulations and scarring in the left lung. IMPRESSION: 1. Acute comminuted moderately displaced and impacted fracture of the surgical neck of the left humerus. Left shoulder joint hemarthrosis without evidence for dislocation. 8 mm dense sclerotic loose body. 2. Probable distal left clavicle surgical resection. Correlate with prior surgical reports. 3. No additional fracture in the visualized portions of the left chest. Dictated and Authenticated by: Yasir Navarro MD. Ordering:NARENDRA Sheffield MD
[2021-05-02] MEDS: oxyCODONE 5 MG TAB PO (20:22)
[2021-05-02 20:44] LABS: Source Nasal/Nares
[2021-05-02 21:41] LABS: COVID-19 PCR Negative (Negative)
[2021-05-02] MEDS: Normal Saline Flush 10 ML SYR IVP ×2 (22:06→23:18)
[2021-05-02] MEDS: Enoxaparin 30 MG/0.3 ML SYR SC (22:07)
[2021-05-02] MEDS: Budesonide/Formoterol 160/4.5 6 GM 60 PUFF INH IH (22:07)
[2021-05-02] MEDS: Cyclobenzaprine 10 MG TAB 5 MG PO (22:07)
[2021-05-02] MEDS: Simvastatin 40 MG TAB PO (22:08)
[2021-05-02] MEDS: Escitalopram 10 MG TAB 5 MG PO (22:08)
[2021-05-02] MEDS: Donepezil 5 MG TAB PO (22:08)
[2021-05-02] MEDS: Melatonin 3 MG TAB PO (22:08)
[2021-05-02] MEDS: Lactated Ringers 1,000 ML 80 ML IV (23:18)
[2021-05-02] MEDS: Ondansetron 4 MG/2 ML VIAL IVP (23:18)
[2021-05-03] VITALS (13 sets, daily range): BP systolic 95–111; BP diastolic 50–72; PULSE 18–97; RESP 16–18; TEMP 36.4–37.5; O2SAT 84–99
[2021-05-03] MEDS: oxyCODONE 5 MG TAB PO ×3 (03:12→17:45)
[2021-05-03 07:11] LABS: Hemoglobin A1C 9.2 % (<5.7)
[2021-05-03] MEDS: Budesonide/Formoterol 160/4.5 6 GM 60 PUFF INH IH ×2 (07:43→19:57)
[2021-05-03 08:46] LABS: Abs Immature Grans 0.03 10^3/uL (0.0-0.06); Absolute Basophil Count 0.03 10^3/uL (0.0-0.2); Absolute Monocyte Count 0.96 10^3/uL (0.1-0.8); Absolute Neutrophil Count 6.46 10^3/uL (1.2-6.7); Basophils % 0.3; HCT 35.7 % (36.0-46.0); HGB 11.6 g/dL (11.2-15.7); Immature Grans % 0.3; Lymphocytes % 25.5; MCH 30.5 pg (27.0-33.0); MCHC 32.5 % (32.0-36.0); MCV 93.9 fL (80-95); Monocytes % 9.4; Neutrophils % 63.5; Nucleated RBC 0 %; Platelet Count 292 10^3/uL (130-400); RDW 14.2 % (11.7-14.6); RDW-SD 48.4 fL; WBC 10.18 10^3/uL (4.4-10.8)
--- NOTE | 2021-05-03 09:05 | DI.RAD_ITS ---
Exam(s) XR SHOULDER LT COMPLETE 2+V EXAM: XR SHOULDER LT COMPLETE 2+V CLINICAL HISTORY: Check fx alignment. TECHNIQUE: 2D digital imaging was performed. COMPARISON: CR,XR XR SHOULDER LT COMPLETE 2+V from 05/02/2021 FINDINGS: Patient is now in a brace. The comminuted impacted fracture of the humeral neck into the humeral hea d exhibits minimal if any significant change. Resected distal ipsilateral clavicle again noted and t here is an 8 x 9 millimeter calcific density again noted in the subacromial space which is not a new finding and is not a fracture fragment. IMPRESSION: DATA REPOSITORY: RADIATION DOSE DELIVERED:
[2021-05-03 09:12] LABS: Anion Gap 12.2 mmol/L (3-11); BUN 31 mg/dL (7-18); CO2 27.8 mmol/L (21.0-32.0); CREATININE 1.4 mg/dL (0.55-1.02); Calcium 8.9 mg/dL (8.5-10.1); Chloride 104 mmol/L (98-107); Estimated GFR 37.28 (mL/min/1.73m2); Glucose 86 mg/dL (74-106); Sodium 144 mmol/L (136-145)
[2021-05-03] MEDS: Ondansetron 4 MG/2 ML VIAL IVP (09:20)
[2021-05-03] MEDS: Cyclobenzaprine 10 MG TAB 5 MG PO (09:20)
[2021-05-03] MEDS: Pantoprazole 40 MG TABCR PO (09:21)
--- NOTE | 2021-05-03 10:16 | OCONE_ITS ---
Date of service: 05/03/21 Time of Service: 10:04 History of Present Illness History of Present Illness Chief Complaint: Left shoulder pain Narrative: Patient shows passing out and falling onto left side. Significant, sudden onset left shoulder pain. History of left shoulder surgery with Dr. Ospina?open distal clavicle excision in the past. Pain localizes about the shoulder worsens with any movement of the extremity. Denies any specific injury or discomfort about the elbow wrist forearm head or neck. Consult Reason Left prox hum fx Assessment and Plan Assessment and plan (1) Fracture of humerus, proximal, left, closed: Status: Acute Assessment and plan: 70 year old female with displaced, likely 4-part, left proximal humerus fx CT and x-rays confirm significant varus collapse and bone loss. Optimal treatment would likely be surgical with fracture reverse total shoulder arthroplasty given age, fracture pattern, and pre-existing shoulder dysfunction. Unfortunately, patient is a poor surgical given uncontrolled diabetes, congestive heart failure, and COPD. Discussed with the patient today. Would not recommend any acute surgical management at this time. Instead, recommend multimodal pain management, NWB LUE, sling when OOB, otherwise sling off when in bed or seated and may rest forearm on pillows. Gentle daily active and passive ROM to elbow, wrist, and hand. Possible transition to cuff and collar for gravity?assisted reduction as outpatient. Could consider surgery in the future should fracture healing prove unsatisfactory and patient is a better candidate for surgery medically. Follow-up with Dr. Abad at [facility] orthopedics in 2 weeks. Copy note to primary medical team. Qualifiers: Encounter type: initial encounter Fracture alignment: displaced Fracture morphology: other fracture Qualified Code(s): S42.292A - Other displaced fracture of upper end of left humerus, initial encounter for closed fracture [facility] Medical History Abdominal pain Acute gastroenteritis (03/16/18) Acute kidney injury (nontraumatic) Acute pneumonitis Anxiety (03/16/18) Asthma Asthma Back pain CHF (congestive heart failure) Chronic constipation (03/16/18) Cognitive impairment (03/16/18) Mild, w/Memory Loss Cubital tunnel syndrome (03/16/18) Depressive disorder DKA (diabetic ketoacidoses) Dyspnea (03/16/18) Edema (03/16/18) Essential hypertension (07/17/13) Gastroesophageal reflux disease without esophagitis (03/16/18) History of shingles (03/16/18) Hyperlipemia Insulin dependent diabetes mellitus Internal derangement of right knee Interstitial lung disease (03/16/18) Pulm: Trevondlgianlucanidia Long-term use of high-risk medication (03/16/18) Metabolic acidosis with normal anion gap and bicarbonate losses Migraine (04/03/14) Neck pain (03/16/18) 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 History of section Ligation of fallopian tube Thoracoscopic (R)Lung Bx (02/12/18) Family History Mother , aged 81 from dementia, per Elly Diabetes Essential hypertension CHF (congestive heart failure) Heart disease CHF/heart failure Dementia Father , aged 80 Diabetes Essential hypertension CAD (coronary artery disease) Heart disease [place] Hyperlipidemia Stroke Sister , aged 54 Diabetes Personal history of malignant neoplasm Lung Asthma Lung cancer Brother , of mesithelioma aged 62 Diabetes Essential hypertension Personal history of malignant neoplasm Lung, Prostate Hyperlipidemia Asthma Mesothelioma Brother , of PE following knee surgery age 69 Pulmonary embolus with infarction Daughter No problems noted. Son No problems noted. Social History Smoking/Tobacco Use Status: Never Smoking risk assessment performed?: Yes Alcohol Intake: current Alcohol Intake frequency: holidays/special occasions only Details: monthly or less Drug use: Never Substance use type: does not use Adopted: No Caregiver/Support person: Yes Foster care: No Household members: none Housing: apartment Number of Children: 2 number of grandchildren: 5 Communication Needs: Hard of Hearing and Corrective Lenses Education Level: middle school Do you need help understanding health information?: Always current occupation: disabled Pets and animals: Yes Pets and animals: cat(s) Sexually active: No Do you think of yourself as: straight/heterosexual Current gender identity: female What is your relationship status?: How often do you talk on the phone with friends or family?: three or more times per week How often do you get together with friends or relatives?: three or more times per week How often do you attend sikhism or gnosticist services?: 1-3 times per year Do you belong to any clubs or organized social groups?: no Panel score (0-1 are the most socially isolated patients): 1 What type of physical activity do you participate in: none and sedentary lifestyle Duration: < 15 minutes/day Frequency: 1-2 times per week Bibi/Moravian: Worship Special bibi needs: No Agree to transfusion: Yes Seatbelt use: sometimes Helmet use: No Drive intox or ride w/intox oil transport driver: No Water heater temp set <120 deg: Yes Working smoke detector in home: Yes Fire extinguisher in home: Yes Carbon monox detector in home: Yes Do you feel safe at home: Yes Do you feel safe in your relationship?: Yes Victim of physical abuse: No Victim of emotional abuse: No Victim of sexual abuse: No Would you like helpful sources: No Exam Narrative Exam Narrative: No acute distress. Resting in hospital bed. Breathing comfortably on room air. 2+ left radial pulse. Regular rate and rhythm. Left shoulder without any significant edema, ecchymosis, or skin breakdown Sensation intact light touch axillary, median, radial, ulnar nerves Demonstrates intact motor about the wrist and hand Motor testing about the shoulder and elbow omitted today due to acute nature of fracture Results Last Vital Signs Temp 97.9 F 05/02/21 18:23 Pulse 87 05/02/21 18:27 Resp 15 05/02/21 18:27 BP 122/68 05/02/21 18:27 Pulse Ox 94 05/02/21 18:27 Labs Result diagrams: 05/03/21 06:05 05/03/21 06:05 Labs: Laboratory Results - last 24 hr 05/02/21 05/02/21 05/02/21 16:40 16:40 16:40 WBC 13.46 H RBC 4.38 Hgb 13.1 Hct 41.0 MCV 93.6 MCH 29.9 MCHC 32.0 RDW 14.2 Plt Count 358 MPV 9.5 Immature Gran % 0.4 Neutrophils % 73.6 Lymphocytes % 18.5 Monocytes % 6.7 Eosinophils % 0.4 Basophils % 0.4 Nucleated RBC % 0 Absolute Neutrophils 9.91 H Absolute Lymphocytes 2.49 Absolute Monocytes 0.90 H Absolute Eosinophils 0.05 Absolute Basophils 0.05 Sodium 144 Potassium 3.6 Chloride 103 Carbon Dioxide 28.6 Anion Gap 12.4 H BUN 29 H Creatinine 1.5 H Estimated GFR/1.73 m2 34.43 Glucose 100 Calcium 9.7 Magnesium 2.2 Total Bilirubin 1.0 AST 9 L ALT 14 Alkaline Phosphatase 88 Troponin I < 0.05 Total Protein 8.1 Albumin 4.1 Urine Color Urine Clarity Urine pH Ur Specific [place] Urine Protein Urine Ketones Urine Blood Urine Nitrite Urine Bilirubin Urine Urobilinogen Ur Leukocyte Esterase Urine Glucose 05/02/21 17:33 WBC RBC Hgb Hct MCV MCH MCHC RDW Plt Count MPV Immature Gran % Neutrophils % Lymphocytes % Monocytes % Eosinophils % Basophils % Nucleated RBC % Absolute Neutrophils Absolute Lymphocytes Absolute Monocytes Absolute Eosinophils Absolute Basophils Sodium Potassium Chloride Carbon Dioxide Anion Gap BUN Creatinine Estimated GFR/1.73 m2 Glucose Calcium Magnesium Total Bilirubin AST ALT Alkaline Phosphatase Troponin I Total Protein Albumin Urine Color Yellow Urine Clarity Clear Urine pH 5.5 Ur Specific [place] 1.020 Urine Protein Negative Urine Ketones Negative Urine Blood Negative Urine Nitrite Negative Urine Bilirubin Negative Urine Urobilinogen 0.2 Ur Leukocyte Esterase Negative Urine Glucose Negative
--- NOTE | 2021-05-03 11:17 | INITIAL_ITS ---
- If Service Date Differs Date of service: 05/03/21 Time of Service: 11:25 Care Management Initial Assess REASON FOR HOSPITALIZATION:: Humerous Fracture, syncope PAST MEDICAL HISTORY/PAST SURGICAL HISTORY:: Medical History. Abdominal pain. Acute gastroenteritis (03/16/18). Acute kidney injury (nontraumatic). Acute pneumonitis. Anxiety (03/16/18). Asthma. Asthma. Back pain. CHF (congestive heart failure). Chronic constipation (03/16/18). Cognitive impairment (03/16/18). Mild, w/Memory Loss. Cubital tunnel syndrome (03/16/18). Depressive disorder. DKA (diabetic ketoacidoses). Dyspnea (03/16/18). Edema (03/16/18). Essential hypertension (07/17/13). Gastroesophageal reflux disease without esophagitis (03/16/18). History of shingles (03/16/18). Hyperlipemia. Insulin dependent diabetes mellitus. Internal derangement of right knee. Interstitial lung disease (03/16/18). Pulm: Bertin. Long-term use of high- risk medication (03/16/18). Metabolic acidosis with normal anion gap and bicarbonate losses. Migraine (04/03/14). Neck pain (03/16/18). 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 Osteoporosis (03/16/18). Peripheral neuralgia. Post herpetic neuralgia (03/16/18). Sepsis. Shoulder pain. left- surgery. Total urinary incontinence. Type II diabetes mellitus, uncontrolled. Umbilical hernia. Surgical History. Appendectomy. Arthroscopy, Shoulder. left. Bilateral salpingectomy with oophorectomy. section. Cholecystectomy. Age 20. . History of section. Ligation of fallopian tube. Thoracoscopic (R)Lung Bx (02/12/18) PREVIOUS FUNCTIONAL STATUS/SOCIAL/FAMILY SUPPORTS:: Elly [facility]. Her son Himanshu lives locally and is supportive. She has five grand children. One of her grandsons, Jorge Luis, is quite supportive and a strong advocate. Her granddaughter Chanel is also very supportive and checks on Elly daily. CURRENT FUNCTIONAL STATUS:: Elly was lying in bed when CM met with her. She reported being tired, and having worked with PT earlier, as well as being seen by Ortho. Per Elly's report, Dr. Abad stated that she can return home. CM discussed the plan for Elly to be seen by PT, OT and Palliative care, all of which will make recommendations for her discharge plan. Elly is adamantly refusing going back to a rehab facility, as she believes that she will be safe at home. CM talked to Elly's grandson, Jorge Luis, who is her health care agent, who has expressed concern regarding her going home. 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 He is concerned about her non compliance with medications as well. CM brought these concerns to the Hospitalist. CM will continue to follow. ADVANCE DIRECTIVES:: [employer] on file, Jorge Luis listed as agent. Has patient been provided with info about the portal/API?: Yes Did the patient sign up for the portal?: Yes (active) CODE STATUS:: Full Code INSURANCE COVERAGE / FINANCIAL ISSUES:: [facility]- [facility] replacement/ [facility] CURRENT HOME/COMMUNITY SERVICES/EQUIPMENT:: Elly uses a cane PRIMARY CARE PHYSICIAN:: Dharmesh Nolasco POTENTIAL DISCHARGE NEEDS:: Follow up with PCP and discharge plan of care PATIENT/FAMILY EDUCATION NEEDS:: Review of discharge instructions, medications, follow up plan, activity, limitations, Ask Me Three ANTICIPATED BARRIERS TO DISCHARGE:: Elly's grandson would like her to return to the [facility], as he doesn't feel that she is safe at home. TRANSPORTATION:: Dependent on disposition; with family via private vehicle vs w/c van PLAN:: Further evaluations are needed to determine if Elly will be safe to return home, which is her preference. She will be seen by PT, OT, and Palliative Care. If she returns home, she will resume HH services, as well as additional caregivers in the home. It may be recommended that she go to a SNF for short term rehab, at which time CM will discuss options for placement. Her transportation will be determined by her disposition; private vehicle by family vs w/c van. She will follow up with her PCP and discharge plan of care. CM will continue to follow.
--- NOTE | 2021-05-03 11:22 | IN_ITS ---
Date of service: 05/03/21 Time of Service: 11:22 PT Notes Visit Reasons: Humerous Fracture, Syncope Inpatient Physical Therapy Evaluation Date: 05/04/2021 Referring Doctor: TASNEEM Miller PT Orders: PT CONSULT: Eval/Treat. Precautions: Standard. Fall. NWB on L LE. Sling when OOB. Patient Profile/Admitting Diagnosis: Elly is a [id number] with congestive heart failure, COPD, and interstitial lung disease who presented to the ED on 05/02/2021 with complaints of significant pain in L UE due to a mechanical fall with diagnosis of L proximal humeral fracture. Per Dr. Abad, patient is not a good candidate for surgical intervention due to her diabetes and cardiac status. PMHX: Medical History Abdominal pain Acute gastroenteritis (03/16/18) Acute kidney injury (nontraumatic) Acute pneumonitis Anxiety (03/16/18) Asthma Asthma Back pain CHF (congestive heart failure) Chronic constipation (03/16/18) Cognitive impairment (03/16/18) Mild, w/Memory Loss Cubital tunnel syndrome (03/16/18) Depressive disorder DKA (diabetic ketoacidoses) Dyspnea (03/16/18) Edema (03/16/18) Essential hypertension (07/17/13) Gastroesophageal reflux disease without esophagitis (03/16/18) History of shingles (03/16/18) Hyperlipemia Insulin dependent diabetes mellitus Internal derangement of right knee Interstitial lung disease (03/16/18) Pulm: [place] Long-term use of high-risk medication (03/16/18) Metabolic acidosis with normal anion gap and bicarbonate losses Migraine (04/03/14) Neck pain (03/16/18) 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 History of section Ligation of fallopian tube Thoracoscopic (R)Lung Bx (02/12/18) Social History/Home Situation: Lives in an apartment with 4 steps to enter. Has good family support. Independent with single-point cane at baseline. Was discharged from this hospital with services provided from 02/21/2021 through 03/24/2021 with patient discharged home independent with SPC for up to 300 feet. Equipment Owned/DME: FWW, SPC Subjective: Refused to get put of bed stating that she has nor had a goos leep and would like to stay in bed for the rest of the day. COmplained of 10/10 pain at rest and with movement. Agreeable to L UE range of motion exercises. Objective: General Observation: Telemetry monitoring in place. Oxygen supplementation at 2 L/min via NC. Mental Status: Alert and oriented x4 Pain: 10/10 in L shoulder at rest and with movement ROM: Right Upper Extremity: Shoulder Flexion WFL. Shoulder abduction WFL. Elbow flexion WFL. Wrist flexion WFL. Functional opening and closing of hand WFL. Left Upper Extremity: Shoulder ROM not tested per orthopod ordersL. Elbow flexion WNL active assistive. Wrist flexion WFL. Functional opening and closing of hand WFL. All moement in L UE causes pain. Right Lower Extremity: Hip flexion WFL. Hip abduction WFL. Knee flexion WFL. Ankle dorsiflexion WFL. Ankle plantarflexion WFL. Left Lower Extremity: Hip flexion WFL. Hip abduction WFL. Knee flexion WFL. Ankle dorsiflexion WFL. Ankle plantarflexion WFL. Strength: Right Upper Extremity: Shoulder flexors 4/5. Shoulder abductors 4/5. Elbow flexors 4/5. Elbow extensors 4/5. Emissions Testing Technician strong. Left Upper Extremity: Shoulder NT. Elbow flexors grossly 3-/5. Emissions Testing Technician NT. Right Lower Extremity: Hip flexors 4-/5. Hip abductors 4-/5. Knee flexors 4-/5. Knee extensors 4-/5. Ankle dorsiflexors 4-/5. Ankle plantarflexors 4-/5. Left Lower Extremity:Hip flexors 4-/5. Hip abductors 4-/5. Knee flexors 4-/5. Knee extensors 4-/5. Ankle dorsiflexors 4-/5. Ankle plantarflexors 4-/5. Sensation: Intact as to pain and light pressure in bilateral upper and lower extremities. THERA EX: Initiated passive range of motion to L shoulder, AAROM with L FA and L wrist x 10 reps with c/o pain at 10/10 despite slow movement and careful exercise excution. Nurse made aware. Placed cryocuff on L shoulder after exercises. Significant muscle guarding felt with patient requiirng maximal cues to relax and for deep cslow breaths. Bed Mobility/Transfers: Declined assessment today due to severe pain in L UE, lack of sleep, and fatigue. Agreed to mobility performance tomorrow morning. Gait: Declined assessment today due to severe pain in L UE, lack of sleep, and fatigue. Agreed to mobility performance tomorrow morning. Balance: Declined assessment today due to severe pain in L UE, lack of sleep, and fatigue. Agreed to mobility performance tomorrow morning. Special Tests: Mobility Limitations Standardized Measure [facility] AM-PAC 6 clicks Basic Mobility Inpatient Short Form: Declined assessment today due to severe pain in L UE, lack of sleep, and fatigue. Agreed to mobility performance tomorrow morning. Informed Consent/Education: Patient was instructed in purpose of PT consult and plan of care and agreeable to proceed with PT interventions to achieve goals set below. Assessment: Elly demonstrates significant L UE pain from proximal humerus fracture and declined any further mobility assessment out of bed. L shoulder muscle strenth not tested due to orthopod restriction. Patient will benefit from home health PT services in order to progress mobility level using least restrictive assistive ambulatory device, assess home safety, identify additional equipment needs, and establish a functional maintenance program that will increase ability of patient to remain at home. Patient presents with clinical signs and symptoms consistent with current/admitting diagnoses that have resulted to mobility limitations, gait instability, generalized weakness, and impairment of motor control as demonstrated by the following impairment level findings: 1. Decreased strength to L UE major muscle groups 2. NWB in L UE 3. Pain in L UE at 10/10 Impairments are contributing to the following functional limitations: 1. Increased fall risk Patient is assessed as a 38919 moderate complexity based on the following: History: 70-year-old female with past medical history, functional limitations, and impairment level findings as above Examination:Demonstrable impairment in strength, balance, and range of motion Presentation: Evolving Decision Makin moderate complexity Goals: Goals X1 week 1. Supine-Sit Independent 2. Sit-Supine Independent 3. Sit-Stand Independent with SPC on R 4. Stand-Sit Independent with SPC on R 5. Bed-Chair Independent with SPC on R 6. Chair-Bed Independent with SPC on R 7. Gait independent with FWW 150ft with SPC on R 8. Stairs independent with bilateral rails 4 steps with SPC on R 9. Independent with home exercise program on R 10. To achieve good static and dynamic standing balance to reduce fall risk on R Plan of Care/Treatment Plan: 1-2x/day, 7 days/week x 1 week. Plan of care has been reviewed with the TRAVELING ENGINEER providing the service under Physical Therapy direction. Initiate Physical Therapy intervention for strengthening, bed mobility, transfers, gait, stairs, balance training, use of assistive device. DISCHARGE RECOMMENDATIONS: Patient will benefit from home health PT services in order to progress mobility level using least restrictive assistive ambulatory device, assess home safety, identify additional equipment needs, and establish a functional maintenance program that will increase ability of patient to remain at home. TREATMENT CODE/TIME: 71181 x 23 minutes beginning at 11:22 AM. Thank you for the opportunity to participate in the care of this patient. Iva Roldan PT, DPT, CLT [facility] [place], [place]
--- NOTE | 2021-05-03 11:35 | PGE_ITS ---
Date of Service Date of service: 05/03/21 Time of Service: 11:36 Assessment and Plan Assessment and plan (1) Fracture of humerus, proximal, left, closed: Start date: 05/03/21 Start time: 11:44 Status: Acute Assessment and plan: 1. Humerus fracture: conservative management, f/u with Ortho in AM In sling, ortho with conservative measures. Pain management with multimodal analgesics PT/OT CMST positive Qualifiers: Encounter type: initial encounter Fracture alignment: displaced Fracture morphology: other fracture Qualified Code(s): S42.292A - Other displaced fracture of upper end of left humerus, initial encounter for closed fracture (2) Dehydration: Start date: 05/03/21 Start time: 11:46 Status: Acute Assessment and plan: On 2 diuretics for CHF with likely not drinking enough water. Creatinine elevated above baseline, Will hold diuretics, avoid nephrotoxic meds and gentle IVF (3) Syncope: Start date: 05/03/21 Start time: 11:43 Status: Chronic Assessment and plan: Patient has chronic syncope after reviewing chart in part due to SYD with dehydration and possible micturation syncope. Qualifiers: Syncope type: unspecified Qualified Code(s): R55 - Syncope and collapse (4) SYD (acute kidney injury): Start date: 05/03/21 Start time: 12:31 Status: Acute Assessment and plan: Slightly elevated, suspect secondary to dehydration. as above gentle IVF overnight. monitor labs (5) DVT prophylaxis: Start date: 05/03/21 Start time: 12:37 Status: Acute Assessment and plan: enoxaparin daily (6) Discharge planning issues: Start date: 05/03/21 Start time: 12:37 Status: Acute Assessment and plan: Patient would like to go home when medically cleared. above case discussed with Dr. Carrizales Subjective Subjective Patient reports: still having pain Interval history since last seen: Continues to have pain, denies dizziness. Urine is orange. Will hold diuretics and continue IVF. Lidoderm patch for extra pain relief. No sycnope since admission. Glucose low this am. Hold am lantus. Monitor fingersticks. She denies CP, soB. Exam Narrative Exam Narrative: HEENT atraumatic; neck supple; lungs clear; heart RRR; abdomen soft and NT; extremities no pedal edema, LUE in sling, distal CSM intact; neuro ox3, moves 3 extremities LUE is LROM due to fracture, Objective Last Vital Signs Temp 36.5 C 05/03/21 06:51 Pulse 71 05/03/21 07:10 Resp 17 05/03/21 06:51 BP 111/69 05/03/21 06:51 Pulse Ox 96 05/03/21 09:42 Laboratory Results - last 24 hr 05/02/21 05/02/21 05/02/21 16:40 16:40 16:40 WBC 13.46 H RBC 4.38 Hgb 13.1 Hct 41.0 MCV 93.6 MCH 29.9 MCHC 32.0 RDW 14.2 Plt Count 358 MPV 9.5 Immature Gran % 0.4 Neutrophils % 73.6 Lymphocytes % 18.5 Monocytes % 6.7 Eosinophils % 0.4 Basophils % 0.4 Nucleated RBC % 0 Absolute Neutrophils 9.91 H Absolute Lymphocytes 2.49 Absolute Monocytes 0.90 H Absolute Eosinophils 0.05 Absolute Basophils 0.05 Sodium 144 Potassium 3.6 Chloride 103 Carbon Dioxide 28.6 Anion Gap 12.4 H BUN 29 H Creatinine 1.5 H Estimated GFR/1.73 m2 34.43 Glucose 100 Hemoglobin A1c Calcium 9.7 Magnesium 2.2 Total Bilirubin 1.0 AST 9 L ALT 14 Alkaline Phosphatase 88 Troponin I < 0.05 Total Protein 8.1 Albumin 4.1 Urine Color Urine Clarity Urine pH Ur Specific [place] Urine Protein Urine Ketones Urine Blood Urine Nitrite Urine Bilirubin Urine Urobilinogen Ur Leukocyte Esterase Urine Glucose COVID-19 Source SARS-CoV-2 (PCR) 05/02/21 05/02/21 05/03/21 17:33 20:20 06:05 WBC RBC Hgb Hct MCV MCH MCHC RDW Plt Count MPV Immature Gran % Neutrophils % Lymphocytes % Monocytes % Eosinophils % Basophils % Nucleated RBC % Absolute Neutrophils Absolute Lymphocytes Absolute Monocytes Absolute Eosinophils Absolute Basophils Sodium Potassium Chloride Carbon Dioxide Anion Gap BUN Creatinine Estimated GFR/1.73 m2 Glucose Hemoglobin A1c 9.2 H Calcium Magnesium Total Bilirubin AST ALT Alkaline Phosphatase Troponin I Total Protein Albumin Urine Color Yellow Urine Clarity Clear Urine pH 5.5 Ur Specific [place] 1.020 Urine Protein Negative Urine Ketones Negative Urine Blood Negative Urine Nitrite Negative Urine Bilirubin Negative Urine Urobilinogen 0.2 Ur Leukocyte Esterase Negative Urine Glucose Negative COVID-19 Source Nasal/Nares SARS-CoV-2 (PCR) Negative 05/03/21 05/03/21 06:05 06:05 WBC 10.18 RBC 3.80 L Hgb 11.6 Hct 35.7 L MCV 93.9 MCH 30.5 MCHC 32.5 RDW 14.2 Plt Count 292 MPV 10.0 Immature Gran % 0.3 Neutrophils % 63.5 Lymphocytes % 25.5 Monocytes % 9.4 Eosinophils % 1.0 Basophils % 0.3 Nucleated RBC % 0 Absolute Neutrophils 6.46 Absolute Lymphocytes 2.60 Absolute Monocytes 0.96 H Absolute Eosinophils 0.10 Absolute Basophils 0.03 Sodium 144 Potassium 4.0 Chloride 104 Carbon Dioxide 27.8 Anion Gap 12.2 H BUN 31 H Creatinine 1.4 H Estimated GFR/1.73 m2 37.28 Glucose 86 Hemoglobin A1c Calcium 8.9 Magnesium Total Bilirubin AST ALT Alkaline Phosphatase Troponin I Total Protein Albumin Urine Color Urine Clarity Urine pH Ur Specific [place] Urine Protein Urine Ketones Urine Blood Urine Nitrite Urine Bilirubin Urine Urobilinogen Ur Leukocyte Esterase Urine Glucose COVID-19 Source SARS-CoV-2 (PCR)
[2021-05-03] MEDS: Lidocaine 5% Patch 2 PATCH TP (11:54)
[2021-05-03] MEDS: Nystatin POWDER 60 GM JAR TP ×2 (13:55→19:57)
--- NOTE | 2021-05-03 14:39 | PHA.REVIEW ---
Pharmacy Admission Review - Admission Clinical Review (Last Reviewed 05/02/21 @ 19:49 by Víctor Nolasco MD) Fracture of humerus, proximal, left, closed (Acute) Discharge planning issues (Acute) DVT prophylaxis (Acute) Dehydration (Acute) SYD (acute kidney injury) (Acute) aspirin Allergy (Unknown, Verified 05/02/21 16:46) HIVES, flip out diclofenac Allergy (Unknown, Verified 05/02/21 16:46) RASH latex Allergy (Unknown, Verified 05/02/21 16:46) SKIN BREAKDOWN NSAIDS (Non-Steroidal Anti-Inflamma Allergy (Unknown, Verified 05/02/21 16:46) HIVES, VOMITING morphine Adverse Reaction (Unknown, Verified 05/02/21 16:46) VOMITING Resuscitation Status Full Code Height 4 ft 11 in Weight 73.936 kg - Renal Dosing Renal Dosing: BUN 31 mg/dL (7-18) H 05/03/21 06:05 Creatinine 1.4 mg/dL (0.55-1.02) H 05/03/21 06:05 Medications needing adjustments: Reviewed (Crcl ~35.1 mL/min using adjusted body weight. Current meds okay.) - Anticoagulation Anticoagulation: Hgb 11.6 g/dL (11.2-15.7) 05/03/21 06:05 Hct 35.7 % (36.0-46.0) L 05/03/21 06:05 Plt Count 292 10^3/uL (130-400) 05/03/21 06:05 Creatinine 1.4 mg/dL (0.55-1.02) H 05/03/21 06:05 DVT Prophylaxis: Reviewed Medications: Enoxaparin Therapeutic Anticoagulation: N/A - Opiate Usage Evaluate Pain Scale/Pains Meds: Reviewed Scheduled Bowel Reg ordered if on Opiates?: No (will mention to provider) - Relevant Labs Sodium 144 mmol/L (136-145) 05/03/21 06:05 Potassium 4.0 mmol/L (3.5-5.1) 05/03/21 06:05 Chloride 104 mmol/L (98-107) 05/03/21 06:05 Magnesium 2.2 mg/dL (1.8-2.4) 05/02/21 16:40 Electrolytes, C-Reactive P, ESR: Reviewed - DM Control DM Control: Glucose 86 mg/dL (74-106) 05/03/21 06:05 Hemoglobin A1c 9.2 % (<5.7) H 05/03/21 06:05 Finger Stick Blood Glucose 112 Finger Stick Blood Glucose 112 Finger Stick Blood Glucose 112 Finger Stick Blood Glucose 64 Finger Stick Blood Glucose 102 Finger Stick Blood Glucose 102 Finger Stick Blood Glucose 64 Finger Stick Blood Glucose 64 Finger Stick Blood Glucose 64 Insulin Dosing: Reviewed (Scheduled insulin glargine and sliding scale aspart ordered.) - Heart Failure/AR Heart Failure/AR: Troponin I < 0.05 ng/mL (<0.06) 05/02/21 16:40 EF%, DAYANARA's, B-Blockers, Diuretics: Reviewed - BP Control BP Control: Blood Pressure 106/50 Blood Pressure 111/69 Blood Pressure 108/72 If elevated: N/A - Qtc Review If Elevated: N/A (QTc 454 on admission) - IV to PO Switch IV Medications: Reviewed - Home Meds Home Med List reviewed: Intervened (Breo ellipta dose corrected based on pharmacy records and max daily dosing. Mycophenolate dosing increased to 500 mg tid per pharmacy, will mention to provider.) - Current meds Current Medication Order Review: Reviewed (Adjusted pantoprazole timing based off certified medical records coder time policy. Fixed symbicort order so bulk order not a med order so charge is correct.) - Comments Comments/Follow Ups: Watch BP, BG, SCr, labs and for med changes (possible renal dose adjustments, need of BM meds).
[2021-05-03] MEDS: Acetaminophen 325 MG TAB 650 MG PO (19:56)
[2021-05-03] MEDS: Docusate Sodium 100 MG CAP PO (19:57)
[2021-05-03] MEDS: Insulin Glargine 300 UNITS/3 ML PEN 23 UNITS SC (22:29)
[2021-05-03] MEDS: Enoxaparin 30 MG/0.3 ML SYR SC (22:30)
[2021-05-03] MEDS: Senna TAB 1 TAB PO (22:30)
[2021-05-03] MEDS: Donepezil 5 MG TAB PO (22:30)
[2021-05-03] MEDS: Simvastatin 40 MG TAB PO (22:30)
[2021-05-03] MEDS: Escitalopram 10 MG TAB 5 MG PO (22:30)
[2021-05-03] MEDS: Lidocaine Patch Removal 2 EACH TD (22:31)
[2021-05-04] VITALS (9 sets, daily range): BP systolic 85–102; BP diastolic 51–62; PULSE 83–96; RESP 12–20; TEMP 35.6–37.5; O2SAT 83–93
[2021-05-04] MEDS: Lactated Ringers 1,000 ML 80 ML IV (00:14)
[2021-05-04] MEDS: oxyCODONE 5 MG TAB PO ×3 (07:19→23:01)
[2021-05-04] MEDS: Pantoprazole 40 MG TABCR PO (07:20)
[2021-05-04] MEDS: Nystatin POWDER 60 GM JAR TP ×3 (07:20→20:48)
[2021-05-04] MEDS: Docusate Sodium 100 MG CAP PO ×2 (07:20→20:43)
[2021-05-04 07:21] LABS: Abs Immature Grans 0.04 10^3/uL (0.0-0.06); Absolute Basophil Count 0.04 10^3/uL (0.0-0.2); Absolute Eosinophil Count 0.12 10^3/uL (0.0-0.7); Absolute Lymphocyte Count 2.28 10^3/uL (1.2-3.4); Absolute Monocyte Count 0.96 10^3/uL (0.1-0.8); Basophils % 0.4; Eosinophils % 1.1; HCT 34.6 % (36.0-46.0); HGB 10.8 g/dL (11.2-15.7); Immature Grans % 0.4; Lymphocytes % 20.6; MCH 29.8 pg (27.0-33.0); MCHC 31.2 % (32.0-36.0); MCV 95.6 fL (80-95); MPV 9.6 fL (8.0-11.0); Monocytes % 8.7; Neutrophils % 68.8; Nucleated RBC 0 %; Platelet Count 271 10^3/uL (130-400); RBC 3.62 10^6/uL (3.93-5.22); RDW 13.9 % (11.7-14.6); WBC 11.06 10^3/uL (4.4-10.8)
[2021-05-04 07:22] LABS: Absolute Neutrophil Count 7.61 10^3/uL (1.2-6.7)
[2021-05-04 07:27] LABS: Anion Gap 9.8 mmol/L (3-11); BUN 24 mg/dL (7-18); CO2 25.2 mmol/L (21.0-32.0); CREATININE 1.3 mg/dL (0.55-1.02); Calcium 8.7 mg/dL (8.5-10.1); Chloride 105 mmol/L (98-107); Estimated GFR 40.61 (mL/min/1.73m2); Glucose 134 mg/dL (74-106); Potassium 4.4 mmol/L (3.5-5.1); Sodium 140 mmol/L (136-145)
[2021-05-04] MEDS: Budesonide/Formoterol 160/4.5 6 GM 60 PUFF INH IH ×2 (08:03→20:48)
[2021-05-04] MEDS: Lidocaine 5% Patch 2 PATCH TP (09:04)
[2021-05-04] MEDS: Cyclobenzaprine 10 MG TAB 5 MG PO (09:42)
[2021-05-04] MEDS: Acetaminophen 325 MG TAB 650 MG PO ×3 (09:42→20:43)
[2021-05-04] MEDS: Ondansetron 4 MG/2 ML VIAL IVP ×2 (09:43→16:57)
--- NOTE | 2021-05-04 10:09 | CMPROGNOTE_ITS ---
- If Service Date Differs Date of service: 05/04/21 Time of Service: 10:09 Care Management Progress Note S/O: Elly was lying in bed when CM met with her. She reported that she is experiencing pain today. She has worked with PT, which she states went well. Per RT, she may qualify for home O2, but further evaluations are required to determine this. SIVA discussed her plan with Jorge Luis, her grandson, today, who requested a Pulmonology follow up, as well as a PCP follow up this week, if possible. SIVA was able to make an appointment with her PCP office for 05/06/21 at 10:20am. CM will send a referral to Pulmonology, with provider approval. Elly believes she would benefit from [facility] at home, and CM provided her with information for her to order. Elly continues to refuse rehab, and PT is recommending that she have HH PT/OT. CM will advocate for HH RN, PT, OT, and GLOBAL PROJECT MANAGER. Her Palliative care consult is still pending at this time. CM will continue to follow. A: Elly is a 70 year old female admitted to [facility] on 05/02/21 with a humerous fracture, syncope. P: Elly continues to refuse rehab prior to returning home. She will be seen by Palliative Care to help determine her goals of care/discharge plan. Evaluations from PT/OT will also help determine her plan. She will likely be transported via private vehicle by family. She will follow up with her PCP and discharge plan of care. CM will continue to follow.
--- NOTE | 2021-05-04 10:11 | PT.INTREAT ---
Date of service: 05/04/21 Time of Service: 09:15 PT Notes Visit Reasons: Humerous Fracture, Syncope Inpatient Physical Therapy Treatment Note [facility] Date: 05/04/2021 PRECAUTIONS: Fall, NWB L UE SUBJECTIVE: Elly states that she has significant L shoulder pain, although is agreeable to participating in PT. She is adamant that she will not go to a SNF. OBJECTIVE: Patient c/o nausea and begins dry-heaving immediately post-gait training, reportedly due to pain, in a.m. PAIN: Please see S/O portions of this note BED MOBILITY/TRANSFERS Supine-sit: I with HOB at 30 degrees Sit-supine: I with HOB flat Sit-stand: S Stand-sit: S GAIT Assistive Device: SPC Weight bearing: Full Assist: CGA-SBA in a.m.; SBA in p.m. Distance: 150' Deviation: Standing rest x2, c/o increasing pain in L shoulder in a.m.; mild SOB in p.m. VITALS: Both sessions performed in collaboration with RT. See their notes for specific vital signs. THEREX: Completed PROM into elbow flexion/extension, AAROM into FA supination/pronation, and AROM into wrist flexion/extension and hand tar distributor operator, all with L UE. Patient c/o shoulder pain radiating to elbow with PROM to elbow. Patient demonstrates guarding with PROM attempts. ASSESSMENT: Patient tolerated session with c/o increased L shoulder pain with all movement, including bed mobility, transfers, and gait training. PLAN: Continue with gait and transfer training, as well as ROM activities with L elbow, wrist, FA, and hand as tolerated. TREATMENT CODE/TIME: Session 1: 20 minutes; 22214 (09:15) Session 2: 20 minutes; 11621, 83313 (14:20)
--- NOTE | 2021-05-04 10:58 | OT.INIE ---
Occupational Therapy Notes Inpatient Occupational Therapy Evaluation Date: 05/04/21 Referring Doctor:Urmila Austin NP OT Orders: Non Urgent Precautions: Fall, standard, Full PATIENT PROFILE/ADMITTING DIAGNOSIS: Pt is a 70 year old female who was admitted to [facility] with the dx of fx (R) humerus, rib fxs, DKA, hiatal hernia, CHF. Past Medical History: Medical History Abdominal pain Acute gastroenteritis (03/16/18) Acute kidney injury (nontraumatic) Acute pneumonitis Anxiety (03/16/18) Asthma Asthma Back pain CHF (congestive heart failure) Chronic constipation (03/16/18) Cognitive impairment (03/16/18) Mild, w/Memory Loss Cubital tunnel syndrome (03/16/18) Depressive disorder DKA (diabetic ketoacidoses) Dyspnea (03/16/18) Edema (03/16/18) Essential hypertension (07/17/13) Gastroesophageal reflux disease without esophagitis (03/16/18) History of shingles (03/16/18) Hyperlipemia Insulin dependent diabetes mellitus Internal derangement of right knee Interstitial lung disease (03/16/18) Pulm: Jedlovsky Long-term use of high-risk medication (03/16/18) Metabolic acidosis with normal anion gap and bicarbonate losses Migraine (04/03/14) Neck pain (03/16/18) 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 History of section Ligation of fallopian tube Thoracoscopic (R)Lung Bx (02/12/18) Social History/Home Situation: Pt previously lived alone in an apartment in [facility]. She was (I) with all ADLs/IADLs at her baseline level of function. She has a tub shower and utilizes a shower bench. A neighbor helps with her supervisor forming and tempering as she is unable to do this on her own. She gets food from meals on wheels. She notes that she has been performing her grocery shopping with her brother with whom she shares a car with and can drive at times, in the grocery store she utilizes a electric scooter. She states that she gets rides from [facility] for doctors appointments if her brother is not available. She has a grandson who did live with her at one time but has recently moved to the [facility]. She reports that she told him he can come back at any time. She gets her laundry done with (A) from her brother as well. She states that she does use a walker at times and a cane but not consistently as she doesn't feel that she needs them. She was previously at the [facility] and just returned home when being admitted. SUBJECTIVE: Pt was sitting in bed when OT arrived, she is agreeable to OT consult and notes increased pain in her (R) UE. OBJECTIVE: General Observation: Pleasant and agreeable, Sling on (R) UE d/t fx, c/o increased pain, IV in (L) UE Mental Status: A& Ox3 Pain: 9/10 ROM: RUE NT L UE AROM WFL STRENGTH: RUE NT LUE 4+/5 throughout FUNCTIONAL MOBILITY/ADLS: BATHING Pt denies. DRESSING sitting in bed Dressing UE Mod (A) don and doffing [facility] gown Dressing LE Max (A) don and doffing (B) socks GROOMING (I) with brushing hair seated in bed. TOILETING NT EATING Pt is able to open containers, she is able to (I) bring hand to mouth. Denies difficulty chewing or swallowing. BALANCE: Static sitting Normal Dynamic Sitting Normal SPECIAL TESTS: Daily Activity Limitations Standardized Measure [facility] AM -PAC ?6 clicks? Daily Activity Inpatient Short Form: Raw score: 21 Standardized score: 44.27 CMS score: 32.79% INFORMED CONSENT/EDUCATION: Pt instructed in purpose of OT Consult and plan of care. ASSESSMENT: Patient is a 70-year-old female referred to occupational therapy services with diagnosis of syncope, fx (R) humerus, rib fxs, DKA, hiatal hernia, CHF. Patient presents with clinical signs and symptoms consistent with dx, as demonstrated by the following impairment level findings/ functional limitations: Pain in (R) UE limiting her gross ROM, increased pain at rest and with functional activities, decreased functional activity tolerance, decreased fine motor control, inability to perform ADLs at her baseline level of function requiring (A) with her (L) side. AMPA score 21 Patient is assessed as a Moderate 85180 complexity based on the following: History: see above Examination: see functional limitations as noted above Presentation: evolving Decision Making: [facility] 21 GOALS Goals x1 week 1. Grooming- (I) standind at sink 2. Dressing (I) UE, mod (I) LE 3. Bathing- Min (A) 4. Toileting- (I) 5. Eating- (I) PLAN OF CARE/TREATMENT PLAN: 1x/day, 5 days/ week x 1week Initiate Occupational Therapy Services for bathing, dressing, grooming, toileting, eating, transfer training. DISCHARGE RECOMMENDATIONS Home with services when medically cleared per MD. TREATMENT TIME/MINUTES/CODES 80321, 75882, 20 minutes (08:20) Trinidad Philip OTR/L [facility]
[2021-05-04] MEDS: Insulin Aspart 300 UNITS/3 ML PEN SC ×2 (12:40→16:49)
--- NOTE | 2021-05-04 14:12 | CHAPLAIN ---
Elly and I know each other from previous admissions. [facility] and had just returned home when she fell at her son's house and broke her humerous. The injury has been painful she said, and she has difficulty getting comfortable in bed. I offered support and will continue to visit.
--- NOTE | 2021-05-04 14:37 | PGE_ITS ---
Date of Service Date of service: 05/04/21 Time of Service: 14:37 Assessment and Plan Assessment and plan (1) Fracture of humerus, proximal, left, closed: Status: Acute Assessment and plan: 1. Humerus fracture: conservative management, f/u with Ortho in AM In sling, ortho with conservative measures. Pain management with multimodal analgesics PT/OT CMST positive Qualifiers: Encounter type: initial encounter Fracture alignment: displaced Fracture morphology: other fracture Qualified Code(s): S42.292A - Other displaced fracture of upper end of left humerus, initial encounter for closed fracture (2) Dehydration: Status: Acute Assessment and plan: On 2 diuretics for CHF with likely not drinking enough water. Creatinine elevated above baseline, Will hold diuretics, avoid nephrotoxic meds and gentle IVF (3) Syncope: Status: Chronic Assessment and plan: Patient has chronic syncope after reviewing chart in part due to SYD with dehydration and possible micturation syncope. Qualifiers: Syncope type: unspecified Qualified Code(s): R55 - Syncope and collapse (4) SYD (acute kidney injury): Status: Acute Assessment and plan: Slightly elevated, suspect secondary to dehydration. as above gentle IVF overnight. monitor labs (5) DVT prophylaxis: Status: Acute Assessment and plan: enoxaparin daily (6) Discharge planning issues: Status: Acute Assessment and plan: Patient would like to go home when medically cleared. above case discussed with Dr. Carrizales Subjective Subjective Patient reports: no new complaints, still having pain, tolerating liquids well, tolerating a regular diet, flatus, bowel movement and afebrile; denies shortness of breath Exam Narrative Exam Narrative: HEENT atraumatic; neck supple; lungs with bibasilar rales, r espirations even and unlabored; heart RRR; abdomen soft and NT; extremities no pedal edema, LUE in sling, distal CSM intact, no swelling to hand good locum tenens psychiatrist and strength, older bruising and swelling to humerus; neuro alert and oriented x3, moves 3 extremities LUE is LROM due to fracture, Objective Last Vital Signs Temp 36.3 C L 05/04/21 12:45 Pulse 93 H 05/04/21 12:45 Resp 14 05/04/21 12:45 BP 93/55 L 05/04/21 12:45 Pulse Ox 92 05/04/21 12:45 Laboratory Results - last 24 hr 05/04/21 05/04/21 06:45 06:45 WBC 11.06 H RBC 3.62 L Hgb 10.8 L Hct 34.6 L MCV 95.6 H MCH 29.8 MCHC 31.2 L RDW 13.9 Plt Count 271 MPV 9.6 Immature Gran % 0.4 Neutrophils % 68.8 Lymphocytes % 20.6 Monocytes % 8.7 Eosinophils % 1.1 Basophils % 0.4 Nucleated RBC % 0 Absolute Neutrophils 7.61 H Absolute Lymphocytes 2.28 Absolute Monocytes 0.96 H Absolute Eosinophils 0.12 Absolute Basophils 0.04 Sodium 140 Potassium 4.4 Chloride 105 Carbon Dioxide 25.2 Anion Gap 9.8 BUN 24 H Creatinine 1.3 H Estimated GFR/1.73 m2 40.61 Glucose 134 H Calcium 8.7
[2021-05-04] MEDS: Psyllium PKT 1 EACH PO ×2 (14:54→20:45)
[2021-05-04] MEDS: Simvastatin 40 MG TAB PO (23:02)
[2021-05-04] MEDS: Enoxaparin 30 MG/0.3 ML SYR SC (23:02)
[2021-05-04] MEDS: Senna TAB 1 TAB PO (23:02)
[2021-05-04] MEDS: Donepezil 5 MG TAB PO (23:02)
[2021-05-04] MEDS: Insulin Glargine 300 UNITS/3 ML PEN 23 UNITS SC (23:03)
[2021-05-04] MEDS: Lidocaine Patch Removal 2 EACH TD (23:04)
[2021-05-04] MEDS: Escitalopram 10 MG TAB 5 MG PO (23:04)
[2021-05-05] VITALS (106 sets, daily range): BP systolic 56–127; BP diastolic 26–80; PULSE 68–103; RESP 12–28; TEMP 36.2–37.1; O2SAT 88–100
[2021-05-05] MEDS: oxyCODONE 5 MG TAB PO (07:46)
[2021-05-05] MEDS: Pantoprazole 40 MG TABCR PO (07:46)
[2021-05-05] MEDS: Psyllium PKT 1 EACH PO (07:46)
[2021-05-05] MEDS: Acetaminophen 325 MG TAB 650 MG PO ×4 (07:46→20:41)
[2021-05-05] MEDS: Docusate Sodium 100 MG CAP PO ×2 (07:47→20:42)
[2021-05-05] MEDS: Budesonide/Formoterol 160/4.5 6 GM 60 PUFF INH IH ×2 (08:12→20:43)
[2021-05-05] MEDS: Insulin Aspart 300 UNITS/3 ML PEN SC ×3 (08:27→17:47)
[2021-05-05] MEDS: Nystatin POWDER 60 GM JAR TP ×2 (08:28→20:42)
--- NOTE | 2021-05-05 09:30 | DI.RAD_ITS ---
Exam(s) XR PORTABLE CHEST AP EXAM: XR PORTABLE CHEST AP CLINICAL HISTORY: dyspnea. TECHNIQUE: 2D digital imaging was performed. COMPARISON: CR,XR XR CHEST 2V PA LATERAL from 05/02/2021 CR,XR XR CHEST 2V PA LATERAL from 05/02/2021 CR XR SHOULDER LT COMPLETE 2+V from 05/03/2021 CR XR SHOULDER LT COMPLETE 2+V from 05/03/2021 FINDINGS: Heart size unchanged. Mediastinum unchanged. Right lung remains relatively clear. Some persistent infiltrate in left lower lobe is noted. There are no pleural effusions. No obvious pulmonary edema. Fracture of the left humeral head-neck is again noted as is evidence of previous resection of the dis carlos alberto aspect of the ipsilateral left clavicle. Also loose intra-articular body in the left shoulder cory int again noted which was pre-existing prior to this acute fracture. IMPRESSION: Left lower lobe infiltrate. No obvious pleural effusions evident on this single portable view. No p neumothorax. Left shoulder fracture DATA REPOSITORY: RADIATION DOSE DELIVERED: All CT scans at this facility use at least one of these dose optimization techniques: automated exposure control; mA and/or kV adjustment per patient size (includes targeted e xams where dose is matched to clinical indication); or iterative reconstruction.
--- NOTE | 2021-05-05 09:30 | RT.EKG_ITS ---
APPROVED REPORT Exam: Resting ECG Reason for Exam: dyspnea Patient Location: I HR:90 bpm ECG Measurements Heart Rate 90 AXIS NM 167 P 43 QRSd 95 QRS -11 QT 396 T -24 QTc 485 Conclusion Sinus rhythm...normal P axis, V-rate 60- 99 Nonspecific T abnormalities, diffuse leads...T <-0.10mV, ant/lat/inf
--- NOTE | 2021-05-05 09:41 | W.PM.PROGNOT ---
Date of Service Date of service: 05/05/21 Time of Service: 09:41 Assessment and Plan Assessment and plan (1) Shortness of breath: Status: Acute Assessment and plan: exertional. initally denied chest pain. thought d/t fluid overload CXR, EKG and bnp troponin ordered. she is given her am oral doses of lasix and spironalactone EKG reviewed with Dr Ulrich and shows ST segment changes in V leads BNP elevated over 10k and troponin 0.09. lasix 40 mg IVP given, care of patient taken over by Dr Ulrich who transferred her to ICU. see his note for further details and orders. Subjective Subjective Patient reports: shortness of breath Interval history since last seen: while working with PT developed exertional shortness of breath, diaphoresis, Dr Ulrich notified, she reportedly had on exam rales noted in her bases, she initially denied shortness of breath . symptoms improved with rest. CXR EKG and BNP, troponin ordered and are pending. she was given her am lasix and spironalactone Exam Narrative Exam Narrative: exam by Dr Ulrich Objective Last Vital Signs Temp 36.5 C 05/05/21 08:46 Pulse 103 H 05/05/21 09:33 Resp 20 05/05/21 09:33 BP 111/73 05/05/21 09:33 Pulse Ox 95 05/05/21 09:33
[2021-05-05] MEDS: Lidocaine 5% Patch 2 PATCH TP (09:59)
[2021-05-05] MEDS: Spironolactone 25 MG TAB PO (10:00)
[2021-05-05] MEDS: Furosemide 40 MG TAB PO (10:00)
--- NOTE | 2021-05-05 10:11 | OT.INTREAT ---
Date of service: 05/05/21 Time of Service: 07:45 Occupational Therapy Notes Occupational Therapy Inpatient Treatment Note Date: 05/05/21 PRECAUTIONS: Standard, Full SUBJECTIVE: Pt was sitting in bed when OT arrived, she states that she is doing ok today but still has c/o pain. OBJECTIVE: PAIN:5-6/10 pain in fx Self Care Training [id number]: OT educated and trained pt in don and doffing sling and UE dressing today. Pt was receptive to training and performance of UE dressing today. She is able to demonstrate with increased (I). ASSESSMENT/PLAN: Next session OT will provide pt with adaptive equipment for LE dressing. TREATMENT CODES/TIME: 58581, 15 minutes (07:40) SERENA Mc/[facility]
[2021-05-05 10:39] LABS: NT-proBNP 10744 pg/mL (<300)
[2021-05-05 10:40] LABS: Troponin I 0.09 ng/mL (<0.06)
--- NOTE | 2021-05-05 10:56 | W.PALLCONSUL ---
Date of service: 05/05/21 Time of Service: 10:12 History of Present Illness History of Present Illness Chief Complaint: left proximal humeral fracture s/p fall, CHF Narrative: I saw Elly this am soon after she experienced an episode of acute dyspnea and diaphoresis. She did not have any chest pain. She was back in her bed after working with PT and walking in the hallways. She was asymptomatic at the time I saw her. She had hoped to go home later this day, but understands with this event she will need further evaluation. She was not happy about this, but understood the importance. She had been receiving IVF since admission as well as drinking plenty of fluids. She had 3 separate drink containers on her bedside table, 2 of which were empty and one nearly so. She had awoken with crackles in her lungs, per her primary nurse. Her IVF had been stopped at the time I saw her. She had received both her usual oral diuretics. Elly and I spoke about the of her brother, Brian Ye, on 12/07/20. She misses him greatly. He was her main support emotionally. She is worried about being told she cannot return directly home. She recently spent 2 mos at the [facility]. She was home for about 2 days or so when she fell off the porch at a family function and fractured her scapula. She wants to be able to go home directly. She adamantly does not want to return to rehab. 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 She insists she can care for herself at home. She is right handed. Her pain is controlled. She is willing to follow up with ortho as directed. We also revisited her code status. She understands what a code looks like. She has seen them before. She wants to have the chance to survive, even if she ends up living in a Rehab permanently. Assessment and Plan Assessment and plan (1) Palliative care patient: Status: Acute Assessment and plan: Was asked in the past to discuss CODE status with her; she was FULL CODE then and wants to remain FULL CODE. She says she is willing to be intubated until her daughter can come home to say good-bye to her. She seems resuscitation as a stop-gap measure, nothing long-term. (2) Acute congestive heart failure: Status: Acute Assessment and plan: Likely triggered by fluid overload. She came in dehydrated. She caught up faster than expected with oral liquids as well as IVF. Responding well to diuretics. BNP elevated as expected. Troponin indeterminate, but given her age and risk factors, support Dr Carrizales's decision to move her to ICU for further monitoring. Qualifiers: Heart failure type: unspecified Qualified Code(s): I50.9 - Heart failure, unspecified (3) Fracture of humerus, proximal, left, closed: Status: Acute Assessment and plan: Will follow up with ortho as needed. DOES NOT want to go to REHAB anywhere. Will accept HH. Qualifiers: Encounter type: initial encounter Fracture morphology: other fracture Fracture alignment: displaced Qualified Code(s): S42.292A - Other displaced fracture of upper end of left humerus, initial encounter for closed fracture (4) Palliative care patient: Status: Chronic (5) COPD (chronic obstructive pulmonary disease): Status: Chronic Assessment and plan: Did not play a role in today's episode. Dyspnea due to cardiac issues. Qualifiers: COPD type: emphysema Emphysema type: panlobular Qualified Code(s): J43.1 - Panlobular emphysema (6) Low-level of literacy: Status: Chronic Assessment and plan: Manages well despite this. Brother Brian with similar cognitive struggles. She misses having him around to share experiences. She is a strong advocate for herself and can make her own medical decisions. (7) Grief: Status: Chronic Assessment and plan: Misses Brian tremendously. Closer to him than she is to her children, I suspect. Review of Systems Constitutional Constitutional: Denies daytime sleepiness, Reports difficulty sleeping (because of the noise of the hospital), Denies frequent falls, Denies lethargy and Denies weakness Eyes Eyes: Reports dry eyes and Reports requires corrective lenses ENT Ears, Nose, Mouth, and Throat: Reports hearing loss Cardiovascular Cardiovascular: Denies chest pain, Reports diaphoresis (this am with PT, not her usual) and Reports dyspnea on exertion (while working with PT this am; not her usual) Respiratory Respiratory: Reports cough (this am, not her usual) and Reports dyspnea on exertion (while working with PT this am; not her usual) Gastrointestinal Gastrointestinal: Reports constipation Genitourinary Genitourinary: Reports urinary incontinence Musculoskeletal Musculoskeletal: Denies abnormal gait, Reports joint swelling and Reports limited range of motion (due to recent left humeral fracture) Integumentary/Breasts Skin/Breast: Reports dry skin Neurologic Neurologic: Reports abnormal speech (life-long, slurred speech, doesn't enunciate), Denies abnormal gait, Denies frequent falls and Denies weakness Comments: Elly has low literacy, did not finish HS. Some life-long cognitive struggles. Psychiatric Psychiatric: Reports anxiety (wants to go home, doesn't want to return to SNF), Denies depression and Denies hopelessness Endocrine Endocrine: Reports heat intolerance Hematologic/Lymphatic Hematologic/Lymphatic: Reports easy bruising [facility] Medical History (Updated 05/07/21 @ 07:23 by Elly Centeno MD) Abdominal pain Acute gastroenteritis (03/16/18) Acute kidney injury (nontraumatic) Acute pneumonitis Anxiety (03/16/18) Asthma Asthma Back pain CHF (congestive heart failure) Chronic constipation (03/16/18) Cognitive impairment (03/16/18) Mild, w/Memory Loss Cubital tunnel syndrome (03/16/18) Depressive disorder DKA (diabetic ketoacidoses) Dyspnea (03/16/18) Edema (03/16/18) Essential hypertension (07/17/13) Gastroesophageal reflux disease without esophagitis (03/16/18) Grief brother Nov 2020 History of shingles (03/16/18) Hyperlipemia Insulin dependent diabetes mellitus Internal derangement of right knee Interstitial lung disease (03/16/18) Pulm: Bertin Long-term use of high-risk medication (03/16/18) Low-level of literacy Metabolic acidosis with normal anion gap and bicarbonate losses Migraine (04/03/14) Neck pain (03/16/18) 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 History of section Ligation of fallopian tube Thoracoscopic (R)Lung Bx (02/12/18) Family History Mother , aged 81 from dementia, per Elly Diabetes Essential hypertension CHF (congestive heart failure) Heart disease CHF/heart failure Dementia Father , aged 80 Diabetes Essential hypertension CAD (coronary artery disease) Heart disease [place] Hyperlipidemia Stroke Sister , aged 54 Diabetes Personal history of malignant neoplasm Lung Asthma Lung cancer Brother , of mesithelioma aged 62 Diabetes Essential hypertension Personal history of malignant neoplasm Lung, Prostate Hyperlipidemia Asthma Mesothelioma Brother , of PE following knee surgery age 69 Pulmonary embolus with infarction Daughter No problems noted. Son No problems noted. 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 Pets and animals: Yes Pets and animals: cat(s) Sexually active: No Do you think of yourself as: straight/heterosexual Current gender identity: female What is your relationship status?: How often do you talk on the phone with friends or family?: three or more times per week How often do you get together with friends or relatives?: three or more times per week How often do you attend religion or baptism services?: 1-3 times per year Do you belong to any clubs or organized social groups?: no Panel score (0-1 are the most socially isolated patients): 1 What type of physical activity do you participate in: none and sedentary lifestyle Duration: < 15 minutes/day Frequency: does not exercise Bibi/Restoration: Pentecostalism Special bibi needs: No Agree to transfusion: Yes Seatbelt use: sometimes Helmet use: No Drive intox or ride w/intox driver license technician: No Water heater temp set <120 deg: Yes Working smoke detector in home: Yes Fire extinguisher in home: Yes Carbon monox detector in home: Yes Do you feel safe at home: Yes Do you feel safe in your relationship?: Yes Victim of physical abuse: No Victim of emotional abuse: No Victim of sexual abuse: No Would you like helpful sources: No Additional Social history: Recently in the [facility] x 2 mos. Didn't feel she needed to be there. She reports was supposed to be a 2 week stay. She said she did all her own care. She says the staff is stretched thin. She can take care of herself at home just fine. She says her family is more worried about her than they need to be. Exam Narrative Exam Narrative: Elderly female who is alert, calm, able to speak in complete sentences; oriented x 3 Neck veins are distended, normal carotid pulses Lungs w/ bilateral basilar to lower 1/3 w/ rales; no rhonchi; no increased work of breathing, no tachypnea, normal saturation Heart is regular, without murmur Abdomen: soft, nontender, obese, normal BS Legs: no pedal edema Neuro: able to make her own medical decisions, aware of options, with lifelong cognitive deficits but functional psych: cooperative, pleasant, Skin: dry, bruising distal to fracture of left arm musculoskeletal: decreased movement of left arm/shoulder due to recent fracture Results Last Vital Signs Temp 97.7 F 05/05/21 08:46 Pulse 103 H 05/05/21 09:33 Resp 20 05/05/21 09:33 BP 111/73 05/05/21 09:33 Pulse Ox 95 05/05/21 09:33 Labs Result diagrams: 05/06/21 06:00 05/06/21 06:00 Labs: Laboratory Results - last 24 hr 05/05/21 09:45 Troponin I 0.09 H* NT-Pro-B Natriuret Pep 21060 H
--- NOTE | 2021-05-05 11:15 | RT.EKG_ITS ---
APPROVED REPORT Exam: Resting ECG Reason for Exam: chest pain Patient Location: I HR:81 bpm ECG Measurements Heart Rate 81 AXIS OH 172 P 47 QRSd 100 QRS -15 QT 436 T -22 QTc 505 Conclusion Sinus rhythm...normal P axis, V-rate 60- 99 Nonspecific T abnormalities, diffuse leads...T <-0.10mV, ant/lat/inf Prolonged QT interval...QTc >500mS
--- NOTE | 2021-05-05 11:39 | NUR.NOTE ---
Nursing Note: Pt transferred to ICU room 220
[2021-05-05] MEDS: fentaNYL 100 MCG/2 ML VIAL 25 MCG IVP ×4 (12:08→21:11)
[2021-05-05] MEDS: Normal Saline Flush 10 ML SYR IVP ×4 (12:08→18:21)
[2021-05-05] MEDS: Clopidogrel 300 MG TAB PO (12:16)
--- NOTE | 2021-05-05 12:35 | PT.INTREAT ---
Date of service: 05/05/21 Time of Service: 09:15 PT Notes Visit Reasons: Humerous Fracture, Syncope Inpatient Physical Therapy Treatment Note [facility] Date: 05/05/2021 PRECAUTIONS: Fall, NWB L UE SUBJECTIVE: Elly states that she continued to experience significant L shoulder pain, although is agreeable to participating in PT. She states that she is not feeling well today and that she is soaked in sweat. OBJECTIVE: Patient c/o VILLASENOR, causing sweating and near-syncope like symptoms. Nursing alerted, vitals obtained, and patient was wheeled in wheelchair back to room. PAIN: Patient c/o several L shoulder pain BED MOBILITY/TRANSFERS Supine-sit: I with HOB at 30 degrees Sit-stand: S Stand-sit: S GAIT Assistive Device: SPC Weight bearing: Full Assist: SBA Distance: 200' + 100' Deviation: VILLASENOR, L shoulder pain VITALS: Please see nursing notes for specifics. THEREX: Held due to syncopal-like symptoms ASSESSMENT: Patient tolerated session with c/o increased L shoulder pain with all movement, including bed mobility, transfers, and gait training, as well as with VILLASENOR. PLAN: Patient transferred to ICU status, new referral received. TREATMENT CODE/TIME: 25 minutes; [id number] (09:15)
[2021-05-05 12:45] LABS: Troponin I 0.11 ng/mL (<0.06)
[2021-05-05 12:46] LABS: PTT Activated 24.6 sec (21.0-27.5); Prothrombin Time 9.9 sec (9.3-11.0)
--- NOTE | 2021-05-05 14:30 | DI.RAD_ITS ---
Exam(s) XR PORTABLE CHEST AP POST LINE EXAM: XR PORTABLE CHEST AP POST LINE CLINICAL HISTORY: TLC placement. TECHNIQUE: 2D digital imaging was performed. COMPARISON: CR XR PORTABLE CHEST AP from 05/05/2021 FINDINGS: Heart size unchanged. Mediastinum unchanged. The distal tip of the newly placed right supra clavi i n central line is at the junction of the SVC and right atrium. Increased markings in the lung bases unchanged from previous. There is no pneumothorax. No obvious pleural effusions. Left shoulder fracture again noted. IMPRESSION: No acute pulmonary findings on this single AP portable view of the chest. DATA REPOSITORY: RADIATION DOSE DELIVERED: All CT scans at this facility use at least one of these dose optimization techniques: automated exposure control; mA and/or kV adjustment per patient size (includes targeted e xams where dose is matched to clinical indication); or iterative reconstruction.
--- NOTE | 2021-05-05 15:10 | ROE_ITS ---
Date of service: 05/05/21 Time of Service: 15:11 Operative Note Operative Note DATE OF PROCEDURE: 05/05/21 PRE-OP DIAGNOSIS: NSTEMI POST-OP DIAGNOSIS: same PROCEDURE: Insertion of right internal jugular triple lumen 7 Palestinian 20 cm pressure injectable Arrowgard Blue Plus CVC catheter SURGEON: Tre Carrizales ANESTHESIA TYPE: Local By Surgeon (5 mL 1% lidocaine) Refer to Anesthesia Record ESTIMATED BLOOD LOSS: 5 (mL) PATHOLOGY: none sent COMPLICATIONS: None Patient was transported to: no change (patient remains in ICU) Patient's condition: stable Indications: NSTEMI, low blood pressure, poor peripheral access Procedure Description: After obtaining written informed consent having explained the indications for a triple lumen CVC and alternatives as well as potential complications including but not limited to njury to carotid artery, pneumothorax, infection the patient consented to the procedure. She was placed in Trendelenburg position and SonoSite Edge ultrasound was used to identify the right internal jugular vein and carotid artery. The IJV compressed along the entire length of the vessel from the angle of her mandible to the supraclavicular space. Using sterile technique and apparel the skin was prepped w/ the enclosed chloraprep form the Arrow Pressure Injectable Arrowgard Blue Plus Three Lumen CVC kit. The skin and subcutaneous tissue was anesthetized w/ the enclosed 1% lidocaine x 5 mL. Using the enclosed 18 gauge 2 1/2 inch introducer needle and RaSolidFireson syring, the RIJV was cannulated under direct ultrasound guidance. Needle was seen to enter the vein and dark red blood was returned into the syring (which had previously been filled w/ 5 mL saline). Using the enclosed J tip spring wire and introducer, the guide wire was easily threaded through the lumen of the introducer catheter and needle. The guide wire was identified on the ultrasound and the needle was withdrawn. The guide wire position was reconfirmed by ultrasound before using the enclosed scalpel to make a skin incision and the enclosed 8.5 Fr vessel dilator was used to dilate the vein, brisk dark red non-pulsatile blood flow was obtained. The vessel dilator was removed while the guide wire position was maintained. Using Seldinger technique, the triple lumen catheter which had previously been prefilled w/ sterile saline was then passed over the guide wire to a depth of 16 cm. The catheter was secured w/ the enclosed catheter clamp and hub fastener were placed onto the CVC line at the point of entry into the skin. The catheter clamp and hub were secured w/ two sutures and a Bio Disk was placed over the entry point. The skin was cleaned w/ sterile saline and sterile gauze and the enclosed s terile dressing was applied. Point of care ultrasound was used to confirm lack of a pneumothorax with good lung sliding across the most non-dependent portion of her anterior chest while she was still in the recumbent supine postion. (By this time she had been taken out of Trendelenburg to horizontal supine position). Stat CXR was ordered for placement confirmation. No apparent complications were witnessed.
[2021-05-05 15:12] LABS: Troponin I 0.11 ng/mL (<0.06)
--- NOTE | 2021-05-05 15:32 | PT.INNT ---
Date of service: 05/05/21 Time of Service: 15:22 PT Notes Visit Reasons: Humerous Fracture, Syncope Per Nurse Cheyenne, patient's troponins are not going down as hoped. She suggested that patient be placed on hold for physical therapy until she stabilizes. Patient was informed about said plan and is in agreement of being seen tomorrow. Will recheck patient tomorrow morning for readiness/suitability for a PT evaluation, as ordered. Thank you for the opportunity to participate in the care of this patient. Iva Roldan PT, DPT, CLT [facility] [place], [place]
--- NOTE | 2021-05-05 15:57 | PGE_ITS ---
Date of Service Date of service: 05/05/21 Time of Service: 15:57 Assessment and Plan Assessment and plan (1) NSTEMI (non-ST elevated myocardial infarction): Status: Acute Assessment and plan: unclear whether or not this was demand ischemia (i.e. brought on by hypervolemia from iv fluids given in response to her initial presentation w/ SYD and orthostatic hypotension) or d/t underlying CAD and having ACS d/t stress of hypervolemia. Her new diffuse anterolateral T wave changes would suggest ACS. Patient has allergy to ASA (severe hives) and therefore she has been given Pl avix loading dose w/ 300 mg. Her BP was too low to tolerate NTG at the time of her onset of symptoms this morning. Her BP remains marginal however she needs diuresis as evidenced by pulmonary edema on cxr and her high BNP. I have started her on low dose N.E. to maintain her MAP of 65 mm or higher so she can tolerate lasix drip at 5 mg/hr. She is already on a statin simvastatin. I will change this to atorvastatin high dose 80 mg. If her BP stabilizes then she may benefit from low dose BB. I think that her orthostatic hypotension is an ongoing problem probably d/t autonomic DM neuropathy. She could benefit from midodrine as an outpatient. She also should be considered for GLP1 agonist and once she is stabilized a low dose DAYANARA-I or ARB. I have met w/ her grandson, Jorge Luis Moon and updated him on her condition and treatment. I have asked nursing to fax her EKG's to [facility] and requested a phone consultation w/ cardiology to discuss her care. Time spent in critical care excluding time to place her CVC is 2 hours. (2) Acute congestive heart failure: Status: Acute Assessment and plan: hemodynamic stabilization and diuretic drip as above. monitor her labs (troponin, BMP, CBC, Mg, and BNP). Ultimately she should be on DAYANARA-I or ARB and GLP-1 agonist for her DM and for her CHF. Qualifiers: Heart failure type: unspecified Qualified Code(s): I50.9 - Heart f ailure, unspecified (3) Orthostatic hypotension: Status: Acute Assessment and plan: as above (4) IDDM (insulin dependent diabetes mellitus): Status: Chronic Assessment and plan: continue basal/bolus insulin Subjective Subjective Interval history since last seen: Patient's care was assumed this morning from Renee De Jesus N.P. Patient was ambulating in hallway w/ P.T. and I happened to be walking by in hallway when I was alerted that the patient was dyspneic and diaphoretic. At the time (about 9:30 a.m.) patient denied any chest pain/pressure but felt dyspneic and lightheaded. Patient was sitting in wheel chair. Exam was limited at the time as she was in the hallway but she had bilate ral basilar rales w/ normal heart tones w/out audible gallops or rub. Skin was diaphoretic. SpO2 93 to 95% on room air, glucose was 232 mg/dL. BP 111/73, HR 103 but regular. Patient was taken back to her room and further workup/evaluation was performed including stat EKG, CXR, troponin I and BNP. Her EKG demonstrated new anterolateral and inferior T wave inversions but no ST segment elevation. Her BNP was over 10,000 and her troponin I was elevated at 0.9. Since this a.m. her repeat troponin has been plateau at 0.11 @ 12:15 pm and 0.11 @ 14:43. patient's was given her oral lasix of 40 mg this morning at 10 am but upon transfer her BP was too low to give iv lasix (SBP 92). Since this time a huertas catheter has been placed an she has had a good response to the oral lasix (525 mL). Since this morning I had to put in CVC in her RIJV d/t poor peripheral access and need for low dose vasopressors. Per my conversation w/ her grandson, Jorge Luis, the patient has been having recurrent dizzy spells/near syncope at home. This led to her fall two days prior to her current admission and led to left proximal humeral fracture. She then had near syncope on the evening of her admission. She currently is free of chest pains. Exam Narrative Exam Narrative: Elderly female who is alert, mildly diaphoretic, able to speak in complete sentences; oriented x 3 Neck veins are distended, normal carotid pulses Lungs w/ bilateral basilar to lower 1/3 w/ rales; no rhonchi Heart is regular, I did not appreciate murmur or rub nor palpable thrill Abdomen: soft, nontender Legs: no pedal edema Objective Last Vital Signs Temp 36.3 C L 05/05/21 14:50 Pulse 74 05/05/21 14:50 Resp 22 05/05/21 14:50 BP 91/60 L 05/05/21 14:50 Pulse Ox 92 05/05/21 14:50 Laboratory Results - last 24 hr 05/05/21 05/05/21 05/05/21 09:45 12:15 12:15 PT 9.9 INR 1.0 APTT 24.6 Troponin I 0.09 H* 0.11 H* NT-Pro-B Natriuret Pep 00700 H 05/05/21 14:43 PT INR APTT Troponin I 0.11 H* NT-Pro-B Natriuret Pep Reviewed Pertinent PMH: Yes Objective Narrative Objective Narrative: Stat echo was ordered and performed by the senior manufacturing technician shortly after patient had reached the ICU. Study was read as technically difficult (patient unable to raise her left arm over her head d/t the proximal humerus fracture) LV size and wall thickness and global LV systolic function are normal but d/t limited study focal areas of wall motion abnormalites could not be ruled out, poor endocardial borders. LVEF 50-55%. RV was not well seen but looked mildly dilated w/ global systolic function probably normal. PAP systolic was 32 mm (using assumption of RA pressure of 3 m m); no hemodynamically significant valvular disease seen. IVC appeared normal size w/ >50% collapse w/ inspiration.
--- NOTE | 2021-05-05 16:24 | PT.INNT ---
Date of service: 05/05/21 Time of Service: 15:42 PT Notes Visit Reasons: Humerous Fracture, Syncope
--- NOTE | 2021-05-05 17:26 | PDOC.CMPRO ---
- If Service Date Differs Date of service: 05/05/21 Time of Service: 17:26 Care Management Progress Note S/O: Elly was transferred to the ICU today after she became sweaty and SOB while working with PT. She is currently be treated for an NSTEMI in the ICU. CM updated Jorge Luis, and coordinated a conversation with Elly's RN as well as the MD caring for her. CM contacted Elly's rn case manager hospice, Mela Candler from [facility] today, who is managing her newly instated [facility] senior living [place]. Mela is working on obtaining MOW and modifications for her bed, as she doesn't qualify for a hospital bed. CM also alerted as she will have new services upon discharge. CM will continue to follow. A: Elly is a 70 year old female admitted to [facility] on 05/02/21 with a humerous fracture, syncope. P: Elly continues to refuse rehab prior to returning home. She will be seen by Palliative Care to help determine her goals of care/discharge plan. Evaluations from PT/OT will also help determine her plan. She will likely be transported via private vehicle by family. She will follow up with her PCP and discharge plan of care. CM will continue to follow.
[2021-05-05 18:07] LABS: Lactate 1.2 mmol/L (0.6-1.4)
[2021-05-05 18:11] LABS: HCT 29.3 % (36.0-46.0); HGB 9.3 g/dL (11.2-15.7)
[2021-05-05 18:17] LABS: Anion Gap 8.3 mmol/L (3-11); BUN 25 mg/dL (7-18); CO2 25.7 mmol/L (21.0-32.0); CREATININE 1.2 mg/dL (0.55-1.02); Calcium 8.6 mg/dL (8.5-10.1); Chloride 104 mmol/L (98-107); Estimated GFR 44.54 (mL/min/1.73m2); Glucose 211 mg/dL (74-106); Potassium 4.3 mmol/L (3.5-5.1); Sodium 138 mmol/L (136-145)
[2021-05-05] MEDS: Escitalopram 10 MG TAB 5 MG PO (20:42)
[2021-05-05] MEDS: Atorvastatin 40 MG TAB 80 MG PO (20:42)
[2021-05-05] MEDS: Senna TAB 1 TAB PO (20:43)
[2021-05-05] MEDS: Donepezil 5 MG TAB PO (20:43)
[2021-05-05] MEDS: Insulin Glargine 300 UNITS/3 ML PEN 23 UNITS SC (20:57)
[2021-05-05] MEDS: Lidocaine Patch Removal 2 EACH TD (22:59)
[2021-05-06] VITALS (69 sets, daily range): BP systolic 71–122; BP diastolic 31–69; PULSE 59–87; RESP 12–27; TEMP 35.6–36.5; O2SAT 91–100
[2021-05-06 06:47] LABS: Abs Immature Grans 0.04 10^3/uL (0.0-0.06); Absolute Basophil Count 0.05 10^3/uL (0.0-0.2); Absolute Eosinophil Count 0.34 10^3/uL (0.0-0.7); Absolute Lymphocyte Count 1.63 10^3/uL (1.2-3.4); Absolute Neutrophil Count 7.27 10^3/uL (1.2-6.7); Basophils % 0.5; Eosinophils % 3.4; HCT 30.7 % (36.0-46.0); HGB 9.7 g/dL (11.2-15.7); Immature Grans % 0.4; Lymphocytes % 16.3; MCH 29.8 pg (27.0-33.0); MCHC 31.6 % (32.0-36.0); MCV 94.2 fL (80-95); MPV 10.1 fL (8.0-11.0); Neutrophils % 72.4; Nucleated RBC 0 %; Platelet Count 313 10^3/uL (130-400); RBC 3.26 10^6/uL (3.93-5.22); RDW 13.2 % (11.7-14.6); RDW-SD 45.7 fL; WBC 10.03 10^3/uL (4.4-10.8)
--- NOTE | 2021-05-06 07:00 | RT.EKG_ITS ---
APPROVED REPORT Exam: Resting ECG Reason for Exam: NSTEMI Patient Location: I HR:66 bpm ECG Measurements Heart Rate 66 AXIS WV 154 P 38 QRSd 113 QRS -16 QT 525 T -22 QTc 552 Conclusion Sinus rhythm...normal P axis, V-rate 60- 99 Probable left ventricular hypertrophy...(RaVL+SV3)xQRSd >300 Abnrm T, consider ischemia, anterolateral lds...T <-0.20mV, I aVL V2-V6 Prolonged QT interval...QTc >500mS
[2021-05-06 07:09] LABS: ALT 12 U/L (14-59); AST 9 U/L (15-37); Albumin 2.5 g/dL (3.4-5.0); Alkaline Phosphatase 73 U/L (46-116); Anion Gap 6.1 mmol/L (3-11); BUN 25 mg/dL (7-18); Bilirubin, Total 0.6 mg/dL (0.2-1.0); CO2 28.9 mmol/L (21.0-32.0); CREATININE 1.2 mg/dL (0.55-1.02); Calcium 8.5 mg/dL (8.5-10.1); Chloride 103 mmol/L (98-107); Estimated GFR 44.54 (mL/min/1.73m2); Glucose 281 mg/dL (74-106); Magnesium 1.9 mg/dL (1.8-2.4); NT-proBNP 7652 pg/mL (<300); Potassium 3.8 mmol/L (3.5-5.1); Sodium 138 mmol/L (136-145); Total Protein 6.2 g/dL (6.4-8.2); Troponin I 0.05 ng/mL (<0.06)
--- NOTE | 2021-05-06 07:45 | OT.INDS ---
Date of service: 05/06/21 Time of Service: 07:45 Occupational Therapy Notes Occupational Therapy Discharge Summary Date: 05/06/21 Dates of Service: 05/04/21-05/05/21 Referring Doctor:Urmila Austin NP OT Orders: Non Urgent Precautions: Fall, standard, Full PATIENT PROFILE/ADMITTING DIAGNOSIS: Pt is a 70 year old female who was admitted to [facility] with the dx of fx (R) humerus, rib fxs, DKA, hiatal hernia, CHF. Past Medical History: Medical History Abdominal pain Acute gastroenteritis (03/16/18) Acute kidney injury (nontraumatic) Acute pneumonitis Anxiety (03/16/18) Asthma Asthma Back pain CHF (congestive heart failure) Chronic constipation (03/16/18) Cognitive impairment (03/16/18) Mild, w/Memory Loss Cubital tunnel syndrome (03/16/18) Depressive disorder DKA (diabetic ketoacidoses) Dyspnea (03/16/18) Edema (03/16/18) Essential hypertension (07/17/13) Gastroesophageal reflux disease without esophagitis (03/16/18) History of shingles (03/16/18) Hyperlipemia Insulin dependent diabetes mellitus Internal derangement of right knee Interstitial lung disease (03/16/18) Pulm: [place] Long-term use of high-risk medication (03/16/18) Metabolic acidosis with normal anion gap and bicarbonate losses Migraine (04/03/14) Neck pain (03/16/18) 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 History of section Ligation of fallopian tube Thoracoscopic (R)Lung Bx (02/12/18) Social History/Home Situation: Pt previously lived alone in an apartment in [facility]. She was (I) with all ADLs/IADLs at her baseline level of function. She has a tub shower and utilizes a shower bench. A neighbor helps with her production manager as she is unable to do this on her own. She gets food from meals on wheels. She notes that she has been performing her grocery shopping with her brother with whom she shares a car with and can drive at times, in the grocery store she utilizes a electric scooter. She states that she gets rides from [facility] for doctors appointments if her brother is not available. She has a grandson who did live with her at one time but has recently moved to the [facility]. She reports that she told him he can come back at any time. She gets her laundry done with (A) from her brother as well. She states that she does use a walker at times and a cane but not consistently as she doesn't feel that she needs them. She was previously at the [facility] and just returned home when being admitted. SUBJECTIVE: NT OBJECTIVE: ROM: RUE NT L UE AROM WFL STRENGTH: RUE NT LUE 4+/5 throughout FUNCTIONAL MOBILITY/ADLS: * BAsed on initial evaluation performed previously- this is just a summary of pts ADLs, no skilled ADLs performed for this document. BATHING NT DRESSING sitting in bed Dressing UE Mod (A) don and doffing [facility] gown Dressing LE Max (A) don and doffing (B) socks GROOMING (I) with brushing hair seated in bed. TOILETING NT EATING Pt is able to open containers, she is able to (I) bring hand to mouth. Denies difficulty chewing or swallowing. BALANCE: Static sitting Normal Dynamic Sitting Normal ASSESSMENT: Patient is a 70-year-old female referred to occupational therapy services with diagnosis of syncope, fx (R) humerus, rib fxs, DKA, hiatal hernia, CHF. Patient presents with clinical signs and symptoms consistent with dx, as demonstrated by the following impairment level findings/ functional limitations: Pain in (R) UE limiting her gross ROM, increased pain at rest and with functional activities, decreased functional activity tolerance, decreased fine motor control, inability to perform ADLs at her baseline level of function requiring (A) with her (L) side. Pt had a decline in medical status and was transitioned to the ICU, based on this OT will re-evaluate at this time at her current level of function. AMPAC score 21 GOALS Goals x1 week- Not met 1. Grooming- (I) standind at sink 2. Dressing (I) UE, mod (I) LE 3. Bathing- Min (A) 4. Toileting- (I) 5. Eating- (I) PLAN OF CARE/TREATMENT PLAN: Due to decline in medical status OT will revaluate in the ICU at this time. DISCHARGE RECOMMENDATIONS Home with HH services when medically cleared per MD. TREATMENT TIME/MINUTES/CODES N/A Trinidad Philip, OTR/L [facility]
--- NOTE | 2021-05-06 07:48 | OTIE_ITS ---
Occupational Therapy Notes Inpatient Occupational Therapy Evaluation Date: [] Referring Doctor:[] OT Orders: [] Precautions: [] PATIENT PROFILE/ADMITTING DIAGNOSIS: [] Past Medical History: [] Current Functional Limitations: [] Social History/Home Situation: [] Equipment owned/DME: [] SUBJECTIVE: [] OBJECTIVE: [] General Observation: [] Mental Status: [] Pain: [] Vital Signs: [] ROM: [] RUE [] L UE [] R LE [] LLE [] STRENGTH: RUE [] LUE [] RLE [] LLE [] SENSATION: [] FUNCTIONAL MOBILITY/ADLS: [] Transfers [] Supine-sit [] Sit-supine [] Sit-Stand [] Stand-sit [] Bed-Chair [] Chair-bed [] BATHING [] Bathing UE [] Bathing LE [] DRESSING [] Dressing UE [] Dressing LE [] GROOMING [] TOILETING [] EATING [] BALANCE: [] Static sitting [] Dynamic Sitting [] Static Standing [] Dynamic Standing [] SPECIAL TESTS: [] Daily Activity Limitations Standardized Measure [] [facility] AM -PAC ?6 clicks? Daily Activity Inpatient Short Form: Raw score: [] Standardized score: [] CMS score: [] CMS modifier: [] INFORMED CONSENT/EDUCATION: Pt instructed in purpose of OT Consult and plan of care. ASSESSMENT: Patient is a []-year-old [] referred to occupational therapy services with diagnosis of []. Patient presents with clinical signs and symptoms consistent with [], as demonstrated by the following impairment level findings: [] Impairments are contributing to the following functional limitations: [] AMPAC score [] Patient is assessed as a Low 38081 [] Moderate 11091 [] high 33755 [] complexity based on the following: [] History: [] Examination: [] Presentation: [] Decision Making: [] GOALS Goals x1 week 1. Transfers 2. Dressing 3. Bathing 4. Toileting 5. Eating PLAN OF CARE/TREATMENT PLAN: 1x/day, 5 days/ week x 1week Initiate Occupational Therapy Services for bathing, dressing, grooming, toileting, eating, transfer training. DISCHARGE RECOMMENDATIONS [] TREATMENT TIME/MINUTES/CODES [] G Codes in the area of self- : washing oneself, toileting, dressing, eating and drinking, current status GO [id number] [] projected status GO [id number]-[]. Discharge status (if discharging) GO [id number]-[]
--- NOTE | 2021-05-06 07:59 | OT.INNT ---
Date of service: 05/06/21 Time of Service: 07:59 Occupational Therapy Notes 05/06/21 OT consult received, pts chart was reviewed. OT attempted to consult with pt at her current level of function. Pt states that she is too tired and dizzy to do anything. She would like to hold till tomorrow. Pt states that she is still interested in returning home post hospitalization. OT will re-evaluate tomorrow, pending pts symptoms. Trinidad Philip OTR/[facility]
--- NOTE | 2021-05-06 08:00 | INDS_ITS ---
Date of service: 05/06/21 Time of Service: 08:00 PT Notes Visit Reasons: Humerous Fracture, Syncope Physical Therapy Inpatient Discharge Summary Date: 05/06/2021 Dates of service: 05/03/2021 through 05/05/2021 This is a clinical summary of care provided for the duration of dates listed above. No charge was made in the completion of this documentation. Referring Doctor: TASNEEM Miller PT Orders: PT CONSULT: Eval/Treat. Precautions: Standard. Fall. NWB on L LE. Sling when OOB. Patient Profile/Admitting Diagnosis: Elly is a [id number] with congestive heart failure, COPD, and interstitial lung disease who presented to the ED on 05/02/2021 with complaints of significant pain in L UE due to a mechanical fall with diagnosis of L proximal humeral fracture. Per Dr. Abad, patient is not a good candidate for surgical intervention due to her diabetes and cardiac status. PMHX: Medical History Abdominal pain Acute gastroenteritis (03/16/18) Acute kidney injury (nontraumatic) Acute pneumonitis Anxiety (03/16/18) Asthma Asthma Back pain CHF (congestive heart failure) Chronic constipation (03/16/18) Cognitive impairment (03/16/18) Mild, w/Memory Loss Cubital tunnel syndrome (03/16/18) Depressive disorder DKA (diabetic ketoacidoses) Dyspnea (03/16/18) Edema (03/16/18) Essential hypertension (07/17/13) Gastroesophageal reflux disease without esophagitis (03/16/18) History of shingles (03/16/18) Hyperlipemia Insulin dependent diabetes mellitus Internal derangement of right knee Interstitial lung disease (03/16/18) Pulm: Jedlovsky Long-term use of high-risk medication (03/16/18) Metabolic acidosis with normal anion gap and bicarbonate losses Migraine (04/03/14) Neck pain (03/16/18) 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 History of section Ligation of fallopian tube Thoracoscopic (R)Lung Bx (02/12/18) Social History/Home Situation: Lives in an apartment with 4 steps to enter. Has good family support. Independent with single-point cane at baseline. Was discharged from this hospital with services provided from 02/21/2021 through 03/24/2021 with patient discharged home independent with SPC for up to 300 feet. Equipment Owned/DME: FWW, SPC Subjective: NT. See most recent ON SITE WASTEWATER SYSTEMS TECHNICIAN notes. Objective: General Observation: NT. See most recent ON SITE WASTEWATER SYSTEMS TECHNICIAN notes. Mental Status: NT. See most recent ON SITE WASTEWATER SYSTEMS TECHNICIAN notes. Pain: NT. See most recent ON SITE WASTEWATER SYSTEMS TECHNICIAN notes. ROM: Right Upper Extremity: Shoulder Flexion WFL. Shoulder abduction WFL. Elbow flexion WFL. Wrist flexion WFL. Functional opening and closing of hand WFL. Left Upper Extremity: Shoulder ROM not tested per orthopod ordersL. Elbow flexion WNL active assistive. Wrist flexion WFL. Functional opening and closing of hand WFL. All moement in L UE causes pain. Right Lower Extremity: Hip flexion WFL. Hip abduction WFL. Knee flexion WFL. Ankle dorsiflexion WFL. Ankle plantarflexion WFL. Left Lower Extremity: Hip flexion WFL. Hip abduction WFL. Knee flexion WFL. Ankle dorsiflexion WFL. Ankle plantarflexion WFL. Strength: Right Upper Extremity: Shoulder flexors 4/5. Shoulder abductors 4/5. Elbow flexors 4/5. Elbow extensors 4/5. Mobile Heavy Equipment Mechanic strong. Left Upper Extremity: Shoulder NT. Elbow flexors grossly 3-/5. Mobile Heavy Equipment Mechanic NT. Right Lower Extremity: Hip flexors 4-/5. Hip abductors 4-/5. Knee flexors 4-/5. Knee extensors 4-/5. Ankle dorsiflexors 4-/5. Ankle plantarflexors 4-/5. Left Lower Extremity:Hip flexors 4-/5. Hip abductors 4-/5. Knee flexors 4-/5. Knee extensors 4-/5. Ankle dorsiflexors 4-/5. Ankle plantarflexors 4-/5. Sensation: Intact as to pain and light pressure in bilateral upper and lower extremities. Bed Mobility/Transfers: Rolling moderate assist Supine to sit moderate assist Sit to supine minimal assist Sit to stand minimal assist Stand to sit minimal assist Bed to chair contact-guard assist Chair to bed contact-guard assist Gait: Able to tolerate up to 300 feet using SPC with SBA. Balance: Static sitting: Fair Dynamic sitting: Poor Static standing: Poor Dynmaic standing: Unable Assessment: Patient was admitted to ICU level of care due to NSTEMI as of 05/05. Elly continues to demonstrate significant L UE pain from proximal humerus fracture and declined any further mobility assessment out of bed. L shoulder muscle strenth not tested due to orthopod restriction. Patient will benefit from home health PT services in order to progress mobility level using least restrictive assistive ambulatory device, assess home safety, identify additional equipment needs, and establish a functional maintenance program that will increase ability of patient to remain at home. Patient continues to present with clinical signs and symptoms consistent with current/admitting diagnoses that have resulted to mobility limitations, gait instability, generalized weakness, and impairment of motor control as demonstrated by the following impairment level findings: 1. Decreased strength to L UE major muscle groups 2. NWB in L UE 3. Pain in L UE at 10/10 Impairments are continuing to contribute to the following functional limitations: 1. Increased fall risk 2. Need for physical assistance with all transfer performance using SPC Goals: Goals X1 week 1. Supine-Sit Independent NOT MET 2. Sit-Supine Independent NOT MET 3. Sit-Stand Independent with SPC on R NOT MET 4. Stand-Sit Independent with SPC on R NOT MET 5. Bed-Chair Independent with SPC on R NOT MET 6. Chair-Bed Independent with SPC on R NOT MET 7. Gait independent with FWW 150ft with SPC on R NOT MET 8. Stairs independent with bilateral rails 4 steps with SPC on R NOT MET 9. Independent with home exercise program on R NOT MET 10. To achieve good static and dynamic standing balance to reduce fall risk on R NOT MET DISCHARGE RECOMMENDATIONS: Patient will benefit from home health PT services in order to progress mobility level using least restrictive assistive ambulatory device, assess home safety, identify additional equipment needs, and establish a functional maintenance program that will increase ability of patient to remain at home. TREATMENT CODE/TIME: MA Thank you for the opportunity to participate in the care of this patient. Iva Roldan PT, DPT, CLT [facility] [place], [place]
--- NOTE | 2021-05-06 09:04 | PGE_ITS ---
Date of Service Date of service: 05/06/21 Time of Service: 09:04 Assessment and Plan Assessment and plan (1) NSTEMI (non-ST elevated myocardial infarction): Status: Acute Assessment and plan: Probable type II demand ischemic event precipitated by volume overload however given her significant T wave abnormalities on her EKG and given her other comorbidities she probably has some underlying atherosclerotic coronary artery disease. She remains on Plavix. She remains on heparin for 48 hours. She will be set up for outpatient stress MPI in 4 to 6 wks post discharge. This will allow time for her left humerus frx to heal and hopefully she will then be able to tolerate imaging for her stress MPI. I discussed her case w/ Dr. Teague, cardiology, but did not put in formal consult. He agreed w/ current plan for outpatient MPI and current treatment of CHF (2) Acute congestive heart failure: Status: Acute Assessment and plan: Patient has HFPEF. She probably has diastolic dysfunction however her echo was limited d/t her inability to cooperate w/ exam d/t her humerus frx. I have resumed oral diuretics. She is not currently on DAYANARA- I or ARB. Because of her orthostatic hypotension she may not tolerate one. She should also be put on GLP-1 agonist upon discharge. Qualifiers: Heart failure type: unspecified Qualified Code(s): I50.9 - Heart failure, unspecified (3) Orthostatic hypotension: Status: Acute Assessment and plan: epinephrine drip has been stopped. Will add midodrine 5 mg tid. She should also be fitted for Jobst stockings. I saw that Dr. Garcia had previously ordered this however patient says that she never received them. (4) IDDM (insulin dependent diabetes mellitus): Status: Chronic Assessment and plan: continue basal/bolus insulin. She needs titration of her insulin. Dr. Nolasco had cut her Lantus down. I will adjust her Lantus and give her higher sliding scale (resistant level insulin) and add CHO coverage. (5) Fracture of humerus, proximal, left, closed: Status: Acute Assessment and plan: will resume P.T. to work w/ her regarding her humerus fracture and gait stability Qualifiers: Encounter type: initial encounter Fracture morphology: other fracture Fracture alignment: displaced Qualified Code(s): S42.292A - Other displaced fracture of upper end of left humerus, initial encounter for closed fracture Subjective Subjective Interval history since last seen: Patient is feeling better. Not dyspneic. No CP. Patient diuresed 3 liters overnight. BNP is donw to 7600 from over 10,000 yesterday. Troponin levels have normalized to 0.05. Echo was technically limited. LV size and global systolic function is normal w/ LVEF 50-55%. No segmental wall motion abnormalites. RV was not well seen but was mildly dilated. PASP was 32 mm. Her lasix drip was stopped during the night. I will resume her oral lasix but increase to BID. She will remain on the heparin drip for 48hr but remain on Plavix and after discharge she will need a stress MPI in 4 to 6 weeks. I am keeping her in ICU for this morning but if no further CP or hypotension then she could transfer to the floor this afternoon. Exam Narrative Exam Narrative: Elderly white female sitting up in bed alert and oriented person place time circumstance. No respiratory distress. Currently wearing oxygen at 2 L/min via nasal cannula. Vital signs are stable. She is afebrile. Furosemide drip and epinephrine drip have been discontinued. Lungs with bibasilar rales no rhonchi or wheezing Heart is regular rate and rhythm Abdomen soft nontender no distention normal bowel sounds. Lower extremities without peripheral cyanosis or edema. Objective Last Vital Signs Temp 36 C L 05/06/21 04:00 Pulse 62 05/06/21 06:01 Resp 19 05/06/21 06:02 BP 100/47 L 05/06/21 06:01 Pulse Ox 100 05/06/21 06:02 Laboratory Results - last 24 hr 05/05/21 05/05/21 05/05/21 09:45 12:15 12:15 WBC RBC Hgb Hct MCV MCH MCHC RDW Plt Count MPV Immature Gran % Neutrophils % Lymphocytes % Monocytes % Eosinophils % Basophils % Nucleated RBC % Absolute Neutrophils Absolute Lymphocytes Absolute Monocytes Absolute Eosinophils Absolute Basophils PT 9.9 INR 1.0 APTT 24.6 VBG Lactate Sodium Potassium Chloride Carbon Dioxide Anion Gap BUN Creatinine Estimated GFR/1.73 m2 Glucose Calcium Magnesium Total Bilirubin AST ALT Alkaline Phosphatase Troponin I 0.09 H* 0.11 H* NT-Pro-B Natriuret Pep 14240 H Total Protein Albumin 05/05/21 05/05/21 05/05/21 14:43 17:50 17:50 WBC RBC Hgb Hct MCV MCH MCHC RDW Plt Count MPV Immature Gran % Neutrophils % Lymphocytes % Monocytes % Eosinophils % Basophils % Nucleated RBC % Absolute Neutrophils Absolute Lymphocytes Absolute Monocytes Absolute Eosinophils Absolute Basophils PT INR APTT 43.0 H D VBG Lactate Sodium Potassium Chloride Carbon Dioxide Anion Gap BUN Creatinine Estimated GFR/1.73 m2 Glucose Calcium Magnesium Total Bilirubin AST ALT Alkaline Phosphatase Troponin I 0.11 H* 0.10 H* NT-Pro-B Natriuret Pep Total Protein Albumin 05/05/21 05/05/21 05/05/21 17:50 17:50 17:50 WBC RBC Hgb 9.3 L Hct 29.3 L MCV MCH MCHC RDW Plt Count MPV Immature Gran % Neutrophils % Lymphocytes % Monocytes % Eosinophils % Basophils % Nucleated RBC % Absolute Neutrophils Absolute Lymphocytes Absolute Monocytes Absolute Eosinophils Absolute Basophils PT INR APTT VBG Lactate 1.2 Sodium 138 Potassium 4.3 Chloride 104 Carbon Dioxide 25.7 Anion Gap 8.3 BUN 25 H Creatinine 1.2 H Estimated GFR/1.73 m2 44.54 Glucose 211 H D Calcium 8.6 Magnesium Total Bilirubin AST ALT Alkaline Phosphatase Troponin I NT-Pro-B Natriuret Pep Total Protein Albumin 05/06/21 05/06/21 06:00 06:00 WBC 10.03 RBC 3.26 L Hgb 9.7 L Hct 30.7 L MCV 94.2 MCH 29.8 MCHC 31.6 L RDW 13.2 Plt Count 313 MPV 10.1 Immature Gran % 0.4 Neutrophils % 72.4 Lymphocytes % 16.3 Monocytes % 7.0 Eosinophils % 3.4 Basophils % 0.5 Nucleated RBC % 0 Absolute Neutrophils 7.27 H Absolute Lymphocytes 1.63 Absolute Monocytes 0.70 Absolute Eosinophils 0.34 Absolute Basophils 0.05 PT INR APTT VBG Lactate Sodium 138 Potassium 3.8 Chloride 103 Carbon Dioxide 28.9 Anion Gap 6.1 BUN 25 H Creatinine 1.2 H Estimated GFR/1.73 m2 44.54 Glucose 281 H Calcium 8.5 Magnesium 1.9 Total Bilirubin 0.6 AST 9 L ALT 12 L Alkaline Phosphatase 73 Troponin I 0.05 NT-Pro-B Natriuret Pep 7652 H Total Protein 6.2 L Albumin 2.5 L Reviewed Pertinent PMH: Yes
[2021-05-06] MEDS: Insulin Aspart 300 UNITS/3 ML PEN SC ×5 (09:35→21:37)
[2021-05-06] MEDS: Acetaminophen 325 MG TAB 650 MG PO ×4 (09:48→21:34)
[2021-05-06] MEDS: Docusate Sodium 100 MG CAP PO ×2 (09:49→19:48)
[2021-05-06] MEDS: Clopidogrel 75 MG TAB PO (09:49)
[2021-05-06] MEDS: Furosemide 40 MG TAB PO ×2 (09:50→17:16)
[2021-05-06] MEDS: Pantoprazole 40 MG TABCR PO (09:50)
[2021-05-06] MEDS: Budesonide/Formoterol 160/4.5 6 GM 60 PUFF INH IH ×2 (09:53→19:51)
[2021-05-06] MEDS: Nystatin POWDER 60 GM JAR TP ×2 (09:55→19:49)
[2021-05-06] MEDS: Lidocaine 5% Patch 2 PATCH TP (09:57)
[2021-05-06] MEDS: Normal Saline Flush 10 ML SYR IVP ×4 (10:02→17:18)
--- NOTE | 2021-05-06 10:19 | IN_ITS ---
Date of service: 05/06/21 Time of Service: 10:19 PT Notes Visit Reasons: Humerous Fracture, Syncope Inpatient Physical Therapy Evaluation Date: 05/06/2021 Referring Doctor: Urmila Austin NP PT Orders: PT CONSULT: Eval/Treat. Precautions: Standard. Fall. NWB on L LE. Sling when OOB. Patient Profile/Admitting Diagnosis: Converted to ICU level of care due to NSTEMI episode on 05/06/2021 for close monitoring of cardiac status. Elly is a [id number] with congestive heart failure, COPD, and interstitial lung disease who presented to the ED on 05/02/2021 with complaints of significant pain in L UE due to a mechanical fall with diagnosis of L proximal humeral fracture. Per Dr. Abad, patient is not a good candidate for surgical intervention due to her diabetes and cardiac status. PMHX: Medical History Abdominal pain Acute gastroenteritis (03/16/18) Acute kidney injury (nontraumatic) Acute pneumonitis Anxiety (03/16/18) Asthma Asthma Back pain CHF (congestive heart failure) Chronic constipation (03/16/18) Cognitive impairment (03/16/18) Mild, w/Memory Loss Cubital tunnel syndrome (03/16/18) Depressive disorder DKA (diabetic ketoacidoses) Dyspnea (03/16/18) Edema (03/16/18) Essential hypertension (07/17/13) Gastroesophageal reflux disease without esophagitis (03/16/18) History of shingles (03/16/18) Hyperlipemia Insulin dependent diabetes mellitus Internal derangement of right knee Interstitial lung disease (03/16/18) Pulm: Jedlovsky Long-term use of high-risk medication (03/16/18) Metabolic acidosis with normal anion gap and bicarbonate losses Migraine (04/03/14) Neck pain (03/16/18) 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 History of section Ligation of fallopian tube Thoracoscopic (R)Lung Bx (02/12/18) Social History/Home Situation: Lives in an apartment with 4 steps to enter. Has good family support. Independent with single-point cane at baseline. Was discharged from this hospital with services provided from 02/21/2021 through 03/24/2021 with patient discharged home independent with SPC for up to 300 feet. Equipment Owned/DME: FWW, SPC Subjective: Complained of 10/10 pain in L shoulder even with gentle PROM/AAROM doen to L elbow and wrist. Objective: General Observation: Telemetry monitoring in place. Oxygen supplementation at 2 L/min via NC. Mental Status: Alert and oriented x4 Pain: 10/10 in L shoulder at rest and with movement ROM: Right Upper Extremity: Shoulder Flexion WFL. Shoulder abduction WFL. Elbow flexion WFL. Wrist flexion WFL. Functional opening and closing of hand WFL. Left Upper Extremity: Shoulder ROM not tested per orthopod ordersL. Elbow flexion WNL passive. Wrist flexion WFL. Functional opening and closing of hand WFL. All movement in L UE causes pain. Right Lower Extremity: Hip flexion WFL. Hip abduction WFL. Knee flexion WFL. Ankle dorsiflexion WFL. Ankle plantarflexion WFL. Left Lower Extremity: Hip flexion WFL. Hip abduction WFL. Knee flexion WFL. Ankle dorsiflexion WFL. Ankle plantarflexion WFL. Strength: Right Upper Extremity: Shoulder flexors 4/5. Shoulder abductors 4/5. Elbow flexors 4/5. Elbow extensors 4/5. Offset Press Assistant strong. Left Upper Extremity: Shoulder NT. Elbow flexors grossly 3-/5. Offset Press Assistant NT. Right Lower Extremity: Hip flexors 4-/5. Hip abductors 4-/5. Knee flexors 4-/5. Knee extensors 4-/5. Ankle dorsiflexors 4-/5. Ankle plantarflexors 4-/5. Left Lower Extremity:Hip flexors 4-/5. Hip abductors 4-/5. Knee flexors 4-/5. Knee extensors 4-/5. Ankle dorsiflexors 4-/5. Ankle plantarflexors 4-/5. Sensation: Intact as to pain and light pressure in bilateral upper and lower extremities. THERA EX: Initiated passive range of motion to L shoulder, AAROM with L FA and L wrist x 10 reps with c/o pain at 10/10 despite slow movement and careful exercise excution. Nurse made aware. Placed cryocuff on L shoulder after exercises. Significant muscle guarding felt with patient requiirng maximal cues to relax and for deep cslow breaths. Bed Mobility/Transfers: Declined assessment today due to hypotension with BP at 86/39 mmHg with HOB just elevated to 45 degrees. Deffered all bed mobility, transfer and ambulation assessment. Gait: Declined assessment today due to hypotension with BP at 86/39 mmHg with HOB just elevated to 45 degrees. Deffered all bed mobility, transfer and ambulation assessment. Balance: Declined assessment today due to hypotension with BP at 86/39 mmHg with HOB just elevated to 45 degrees. Deffered all bed mobility, transfer and ambulation assessment. Special Tests: Mobility Limitations Standardized Measure [facility] AM-PAC 6 clicks Basic Mobility Inpatient Short Form: Declined assessment today due to severe pain in L UE, lack of sleep, and fatigue. Agreed to mobility performance tomorrow morning. Informed Consent/Education: Patient was instructed in purpose of PT consult and plan of care and agreeable to proceed with PT interventions to achieve goals set below. Assessment: Converted to ICU level of care due to NSTEMI episode on 05/06/2021 for close monitoring of cardiac status. Elly demonstrates significant L UE pain from proximal humerus fracture and declined any further mobility assessment out of bed. L shoulder muscle strenth not tested due to orthopod restriction. Patient will benefit from home health PT services in order to progress mobility level using least restrictive assistive ambulatory device, assess home safety, identify additional equipment needs, and establish a functional maintenance program that will increase ability of patient to remain at home. Patient presents with clinical signs and symptoms consistent with current/admitting diagnoses that have resulted to mobility limitations, gait instability, generalized weakness, and impairment of motor control as demonstrated by the following impairment level findings: 1. Decreased strength to L UE major muscle groups 2. NWB in L UE 3. Pain in L UE at 10/10 Impairments are contributing to the following functional limitations: 1. Increased fall risk 2. Decreased activity tolerance 3. Patient is [place] 39337 moderate complexity based on the following: History: 70-year-old female with past medical history, functional limitations, and impairment level findings as above Examination:Demonstrable impairment in strength, balance, and range of motion Presentation: Evolving Decision Makin moderate complexity Goals: Goals X1 week 1. Supine-Sit Independent 2. Sit-Supine Independent 3. Sit-Stand Independent with SPC on R 4. Stand-Sit Independent with SPC on R 5. Bed-Chair Independent with SPC on R 6. Chair-Bed Independent with SPC on R 7. Gait independent with FWW 150ft with SPC on R 8. Stairs independent with bilateral rails 4 steps with SPC on R 9. Independent with home exercise program on R 10. To achieve good static and dynamic standing balance to reduce fall risk on R Plan of Care/Treatment Plan: 1-2x/day, 7 days/week x 1 week. Plan of care has been reviewed with the WASTE HAND providing the service under Physical Therapy direction. Initiate Physical Therapy intervention for strengthening, bed mobility, transfers, gait, stairs, balance training, use of assistive device. DISCHARGE RECOMMENDATIONS: Patient will benefit from home health PT services in order to progress mobility level using least restrictive assistive ambulatory device, assess home safety, identify additional equipment needs, and establish a functional maintenance program that will increase ability of patient to remain at home. TREATMENT CODE/TIME: 84805 x 23 minutes beginning at 10:19 AM. Thank you for the opportunity to participate in the care of this patient. Iva Roldan PT, DPT, CLT [facility] [place], [place]
--- NOTE | 2021-05-06 10:20 | NUR.NOTE ---
RN draws APTT and delivers same to lab.Nursing Note:
--- NOTE | 2021-05-06 10:54 | NUR.NOTE ---
TEDS are applied.Nursing Note:
[2021-05-06 11:07] LABS: Reticulocyte 2.3 % (0.5-2.4)
[2021-05-06 11:32] LABS: Ferritin 99 ng/mL (8-252)
--- NOTE | 2021-05-06 13:01 | PDOC.CMPRO ---
- If Service Date Differs Date of service: 05/06/21 Time of Service: 13:01 Care Management Progress Note S/O: Elly was lying in bed when CM met with her. She stated that she is not feeling well today, although she is slightly better than yesterday. CM met with Jorge Luis today, who reported that he has caregivers in place for her return home, when she is medically ready. Per report, she is clinically improving, and may be transferred out of the ICU if she continues to improve. CM will continue to follow. A: Elly is a 70 year old female admitted to [facility] on 05/02/21 with a humerous fracture, syncope. P: Elly continues to refuse rehab prior to returning home. She will be seen by Palliative Care to help determine her goals of care/discharge plan. Evaluations from PT/OT will also help determine her plan. She will likely be transported via private vehicle by family. She will follow up with her PCP and discharge plan of care. CM will continue to follow.
--- NOTE | 2021-05-06 13:26 | PT.INTREAT ---
Date of service: 05/06/21 Time of Service: 13:15 PT Notes Visit Reasons: Humerous Fracture, Syncope Inpatient Physical Therapy Treatment Note [facility] Date: 05/06/2021 PRECAUTIONS: Orthostatic BP, NWB on L UE SUBJECTIVE: Elly states that she is not feeling too good today. She is pleasant and agreeable to participating in PT. OBJECTIVE: PAIN: Patient c/o anterior L shoulder pain with AAROM/AROM of L UE at forearm and wrist BED MOBILITY/TRANSFERS/GAIT: Held due to orthostatic BPs today THEREX: With patient in supine with HOB at 20 degrees, performed PROM into L elbow flexion/extension x15 with minimal guarding. Patient was instructed in AAROM into L forearm supination/pronation x15 with c/o anterior shoulder discomfort, then in AROM into L wrist flexion/extension, and ulnar/radial deviation x15 each with minimal c/o anterior shoulder discomfort. Patient was then instructed in yellow foam cube squeeze with L hand x15. ASSESSMENT: Patient tolerated session with c/o increased fatigue and with c/o L anterior shoulder pain with AAROM and AROM activities to L forearm and wrist. PLAN: Continue with gentle ROM activities to L elbow, forearm, wrist, and hand, and resume gait and transfer training when medically appropriate. TREATMENT CODE/TIME: 10 minutes; 85274 (13:15)
[2021-05-06] MEDS: Midodrine 2.5 MG TAB 5 MG PO ×2 (14:44→19:48)
--- NOTE | 2021-05-06 16:37 | CHAPLAIN ---
I hadn't seen Elly since she moved to the ICU. She told me that she had two heart attacks and was moved to the ICU. She also found out yesterday that her son needs to go to a hospital in [place] for surgery. So that's what's going on with me, she said. She plans to go home rather than to a rehab. We talked about ways she might relax, but she wasn't sure she could do that. She is worried about her son.
[2021-05-06 17:48] LABS: PTT Activated 46.6 sec (21.0-27.5)
[2021-05-06] MEDS: Atorvastatin 40 MG TAB 80 MG PO (19:47)
[2021-05-06] MEDS: oxyCODONE 5 MG TAB PO (19:48)
[2021-05-06] MEDS: Escitalopram 10 MG TAB 5 MG PO (19:48)
[2021-05-06] MEDS: Donepezil 5 MG TAB PO (19:48)
[2021-05-06] MEDS: Senna TAB 1 TAB PO (19:48)
[2021-05-06] MEDS: Insulin Glargine 300 UNITS/3 ML PEN 35 UNITS SC (21:38)
[2021-05-06] MEDS: Lidocaine Patch Removal 2 EACH TD (21:39)
[2021-05-07] VITALS (44 sets, daily range): BP systolic 58–112; BP diastolic 35–63; PULSE 72–102; RESP 13–24; TEMP 35.2–37.2; O2SAT 89–100
[2021-05-07 07:34] LABS: Anion Gap 7.4 mmol/L (3-11); BUN 29 mg/dL (7-18); CO2 31.6 mmol/L (21.0-32.0); CREATININE 1.2 mg/dL (0.55-1.02); Calcium 9.2 mg/dL (8.5-10.1); Chloride 102 mmol/L (98-107); Estimated GFR 44.54 (mL/min/1.73m2); Glucose 149 mg/dL (74-106); NT-proBNP 2655 pg/mL (<300); Potassium 3.5 mmol/L (3.5-5.1); Sodium 141 mmol/L (136-145)
[2021-05-07] MEDS: Budesonide/Formoterol 160/4.5 6 GM 60 PUFF INH IH ×2 (07:39→20:10)
[2021-05-07 07:43] LABS: PTT Activated 44.6 sec (21.0-27.5)
[2021-05-07] MEDS: Acetaminophen 325 MG TAB 650 MG PO ×4 (07:46→20:09)
[2021-05-07] MEDS: Clopidogrel 75 MG TAB PO (07:48)
[2021-05-07] MEDS: Docusate Sodium 100 MG CAP PO ×2 (07:49→20:09)
[2021-05-07] MEDS: Midodrine 2.5 MG TAB 5 MG PO ×3 (07:51→20:09)
[2021-05-07] MEDS: Furosemide 40 MG TAB PO ×2 (07:51→17:30)
[2021-05-07] MEDS: Pantoprazole 40 MG TABCR PO (07:52)
[2021-05-07] MEDS: Cyclobenzaprine 10 MG TAB 5 MG PO (08:04)
[2021-05-07] MEDS: Insulin Aspart 300 UNITS/3 ML PEN SC ×4 (08:05→22:19)
--- NOTE | 2021-05-07 08:50 | NUR.NOTE ---
OT begins working with patient. RN requests OT person place sling on patient's left arm to help immobilize same.Nursing Note:
--- NOTE | 2021-05-07 10:11 | OT.INIE ---
Occupational Therapy Notes Inpatient Occupational Therapy Evaluation Date: 05/07/21 Referring Doctor:Urmila Austin NP OT Orders: Non Urgent Precautions: Fall, standard, Full PATIENT PROFILE/ADMITTING DIAGNOSIS: Pt is a 70 year old female who was admitted to MEd surg with the dx of fx (R) humerus, rib fxs, DKA, hiatal hernia, CHF. She was transferred to ICU with a decline in medical status and due to this pt is being seen for initial evaluation at this time. Past Medical History: Medical History Abdominal pain Acute gastroenteritis (03/16/18) Acute kidney injury (nontraumatic) Acute pneumonitis Anxiety (03/16/18) Asthma Asthma Back pain CHF (congestive heart failure) Chronic constipation (03/16/18) Cognitive impairment (03/16/18) Mild, w/Memory Loss Cubital tunnel syndrome (03/16/18) Depressive disorder DKA (diabetic ketoacidoses) Dyspnea (03/16/18) Edema (03/16/18) Essential hypertension (07/17/13) Gastroesophageal reflux disease without esophagitis (03/16/18) History of shingles (03/16/18) Hyperlipemia Insulin dependent diabetes mellitus Internal derangement of right knee Interstitial lung disease (03/16/18) Pulm: [place] Long-term use of high-risk medication (03/16/18) Metabolic acidosis with normal anion gap and bicarbonate losses Migraine (04/03/14) Neck pain (03/16/18) 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 History of section Ligation of fallopian tube Thoracoscopic (R)Lung Bx (02/12/18) Social History/Home Situation: Pt previously lived alone in an apartment in [facility]. She was (I) with all ADLs/IADLs at her baseline level of function. She has a tub shower and utilizes a shower bench. 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 She gets food from meals on wheels. She notes that she has been performing her grocery shopping with her brother with whom she shares a car with and can drive at times, in the grocery store she utilizes a electric scooter. She states that she gets rides from [facility] for doctors appointments if her brother is not available. She has a grandson who did live with her at one time but has recently moved to the [facility]. She reports that she told him he can come back at any time. She gets her laundry done with (A) from her brother as well. She states that she does use a walker at times and a cane but not consistently as she doesn't feel that she needs them. She was previously at the [facility] and just returned home when being admitted. SUBJECTIVE: Pt was sitting in bed when OT arrived, she is agreeable to OT consult and notes increased pain in her (R) UE and that she is very sick unable to hold anything down. OBJECTIVE: General Observation: Pleasant and agreeable, bruising and edema to (R) UE d/t fx, c/o increased pain, central line in neck limiting pts sling capabilities Mental Status: A& Ox3 Pain: 9/10 ROM: RUE NT L UE AROM WFL STRENGTH: RUE NT LUE 4+/5 throughout FUNCTIONAL MOBILITY/ADLS: BATHING sitting in bed with max (A) set up/clean up (I) face and (L) UE , max (A) right side of her body. Max (A) (B) LE, (I) gal area and abdomen DRESSING Dressing UE Mod (A) don and doffing [facility] gown Dressing LE Max (A) don and doffing (B) socks GROOMING (I) with brushing hair seated in bed. TOILETING [place] in place EATING Unable to assess today as pt feels sick and not able to hold her food down per pt report. BALANCE: Static sitting Normal Dynamic Sitting Normal SPECIAL TESTS: Daily Activity Limitations Standardized Measure [facility] AM -PAC ?6 clicks? Daily Activity Inpatient Short Form: Raw score: 21 Standardized score: 44.27 CMS score: 32.79% INFORMED CONSENT/EDUCATION: Pt instructed in purpose of OT Consult and plan of care. ASSESSMENT: Patient is a 70-year-old female referred to occupational therapy services with diagnosis of syncope, fx (R) humerus, rib fxs, DKA, hiatal hernia, CHF. Patient presents with clinical signs and symptoms consistent with dx, as demonstrated by the following impairment level findings/ functional limitations: Pain in (R) UE limiting her gross ROM, increased pain at rest and with functional activities, decreased functional activity tolerance, decreased fine motor control, inability to perform ADLs at her baseline level of function requiring (A) with her (L) side. [facility] score 21 Patient is assessed as a Moderate 67949 complexity based on the following: History: see above Examination: see functional limitations as noted above Presentation: evolving Decision Making: [facility] 21 GOALS Goals x1 week 1. Grooming- (I) standing at sink 2. Dressing (I) UE, mod (I) LE 3. Bathing- Min (A) 4. Toileting- (I) 5. Eating- (I) PLAN OF CARE/TREATMENT PLAN: 1x/day, 5 days/ week x 1week Initiate Occupational Therapy Services for bathing, dressing, grooming, toileting, eating, transfer training. DISCHARGE RECOMMENDATIONS SNF when medically cleared per MD. TREATMENT TIME/MINUTES/CODES 63874, [id number], 35 minutes (08:25) [facility]
--- NOTE | 2021-05-07 10:34 | PGE_ITS ---
Date of Service Date of service: 05/07/21 Time of Service: 10:36 Assessment and Plan Assessment and plan (1) NSTEMI (non-ST elevated myocardial infarction): Status: Acute Assessment and plan: type 2 demand ischemia; troponins peaked at 0.11 but normalized yesterday to 0.05. She remains on heparin but will finish out her 48hr of heparin today at noon. She will remain on Plavix, high dose atorvastatin but no ASA d/t her allergies. She has not been put on BB d/t marginal BP. She will need outpatient stress MPI 4 wks post discharge for risk stratification. Her echo while technically difficult demonstrated preserved LV systolic function w/ LVEF 50 to 55% and no regional wall motion abnormalites. (2) Acute congestive heart failure: Status: Acute Assessment and plan: Patient has HFPEF. She probably has diastolic dysfunction however her echo was limited d/t her inability to cooperate w/ exam d/t her humerus frx. I have resumed oral diuretics. She is not currently on DAYANARA- I or ARB. Because of her orthostatic hypotension she may not tolerate one. She should also be put on GLP-1 agonist upon discharge. She has been net negative fluid balance of 1460 since midnight last night. She was net negative 1 liter yesterday. She has not been weighed yet today. However she still needs further diuresis. She is on furosemide 40 mg bid. Qualifiers: Heart failure type: unspecified Qualified Code(s): I50.9 - Heart failure, unspecified (3) Orthostatic hypotension: Status: Acute Assessment and plan: Patient is wearing her TEDS (knee high) and she is on midodrine 5 mg tid. her bp are better although still on the lower side. I will increase her dose as she needs the diuretics. (4) IDDM (insulin dependent diabetes mellitus): Status: Chronic Assessment and plan: blood glucose levels are improved but still not optimal. BG this a.m. down to 171 from 300's yesterday. I have adjusted her Lantus dose further to 40 units at HS. She is on high dose Novolog sliding scale and carb coverage at 1:10 ratio. She was on much higher doses of Lantus bid at home. She ought to be on a GLP-1 agonist for DM to not only treat her DM but also to reduce her CV risks. (5) Fracture of humerus, proximal, left, closed: Status: Acute Assessment and plan: she has increased pain. arm has been out of the sling. nursing is concerned about the sling disrupting her CVC. The CVC is secure and they should just put her arm in the sling. I will check repeat xray to evaluate for any further displacement. I was going to put her on Tramadol for her pain however pharmacist reviewed her other meds and d/t her taking flexeril and Lexapro there is increased risk of seizures d/t higher Tramadol levels. I have opted for changing her oxycodone for hydrocodone and adding a fentanyl patch in addition to her lidocaine patches. Qualifiers: Encounter type: initial encounter Fracture morphology: other fracture Fracture alignment: displaced Qualified Code(s): S42.292A - Other displaced fracture of upper end of left humerus, initial encounter for closed fracture Subjective Subjective Interval history since last seen: Patient reports more pain in her left humerus, despite scheduled APAP and prn narcotics. She is allergic to topical diclofenac and can not take oral NSAID'S. I will try her on Tramadol. If this is not working then consider topical fentanyl patch. I would like to get her off iv narcotics. She is medically stable for transfer to the floor. She will be coming off her heparin drip today but remain on Plavix. She will need stress MPI in 4 weeks post hospital to risk stratify her for future ischemic events. Exam Narrative Exam Narrative: Elderly white female sitting up in her chair. Her left arm is out of the sling but propped up by pillows. She has point tenderness at the proximal humerus at the shoulder joint but has bruising over the medial proximal humerus Lungs: clear anteriorly but w/ bibasilar rales posterolaterally; no rhonchi Heart: regular rate and rhythm Abdomen: soft, nontender; normal bowel sounds Legs/feet: no edema Objective Last Vital Signs Temp 35.4 C L 05/07/21 08:07 Pulse 86 05/07/21 08:07 Resp 21 05/07/21 08:07 BP 109/44 L 05/07/21 08:07 Pulse Ox 94 05/07/21 08:07 Laboratory Results - last 24 hr 05/06/21 05/06/21 05/06/21 06:00 06:00 10:15 Reticulocyte % (Auto) 2.3 APTT 36.0 H Sodium Potassium Chloride Carbon Dioxide Anion Gap BUN Creatinine Estimated GFR/1.73 m2 Glucose Calcium 8.5 Ferritin 99 NT-Pro-B Natriuret Pep 05/06/21 05/07/21 05/07/21 17:22 06:15 06:15 Reticulocyte % (Auto) APTT 46.6 H D 44.6 H Sodium 141 Potassium 3.5 Chloride 102 Carbon Dioxide 31.6 Anion Gap 7.4 BUN 29 H Creatinine 1.2 H Estimated GFR/1.73 m2 44.54 Glucose 149 H D Calcium 9.2 Ferritin NT-Pro-B Natriuret Pep 2655 H
--- NOTE | 2021-05-07 10:44 | PTTR_ITS ---
Date of service: 05/07/21 Time of Service: 09:15 PT Notes Visit Reasons: Humerous Fracture, Syncope Inpatient Physical Therapy Treatment Note [facility] Date: 05/07/2021 PRECAUTIONS: Fall, activity as tolerated, NWB on L UE SUBJECTIVE: Elly states that she is not feeling well today, she reports that she has been nauseous all morning. OBJECTIVE: Patient transferred to [facility] with nursing staff in a.m.; held gait training activities in p.m. due to continued nausea and low BP readings. Message sent to Dr. Abad, consulting orthopedic surgeon, to advise best plan moving forward for L UE support with transfers, bed mobility, and gait training activities. PAIN: Patient c/o L anterior shoulder pain with AROM into wrist flexion/extension. BED MOBILITY/TRANSFERS Sit-stand: I with support of L UE due to inability to don sling due to central line placement Stand-sit: I with support of L UE due to inability to don sling due to central line placement GAIT Assistive Device: SPC Weight bearing: Full Assist: S with support of L UE due to inability to don sling due to central line placement Distance: 15' Deviation: None THEREX: With patient in long-sitting position in recliner, perform PROM into L elbow flexion/extension, instructed patient in AAROM into L forearm supination/pronation, wrist flexion/extension, radial/ulnar deviation, and girpping with yellow foam cube x~15 reps each in both a.m. and p.m. ASSESSMENT: Patient tolerates session with some c/o pain in anterior shoulder with AROM into wrist flexion and extension. PLAN: Continue with necessary transfer training and limited gait training, as needed, due to inability to don sling due to central line placement. TREATMENT CODE/TIME: Session 1: 25 minutes; [id number], 78097 (09:15) Session 2: 10 minutes; 33897 (11:30)
[2021-05-07] MEDS: Lidocaine 5% Patch 2 PATCH TP (10:45)
[2021-05-07] MEDS: Ondansetron 4 MG/2 ML VIAL IVP (10:46)
--- NOTE | 2021-05-07 11:02 | CMPROGNOTE_ITS ---
- If Service Date Differs Date of service: 05/07/21 Time of Service: 11:02 Care Management Progress Note S/O: Elly was lying in bed, propped up by several pillows, when CM met with her. She reported that she was still not feeling well. Per report, she will be moved to the Med/Surge floor today, as she continues to improve clinically. She has begun working with PT, and is happy to continue to work with them as she feels that this has set her back physically. Per MD, she will likely remain acute through the weekend. CM will continue to follow. A: Elly is a 70 year old female admitted to [facility] on 05/02/21 with a humerous fracture, syncope. P: Elly continues to refuse rehab prior to returning home. She will be seen by Palliative Care to help determine her goals of care/discharge plan. Evaluations from PT/OT will also help determine her plan. She will likely be transported via private vehicle by family. She will follow up with her PCP and discharge plan of care. CM will continue to follow.
--- NOTE | 2021-05-07 11:13 | DI.RAD_ITS ---
Exam(s) XR HUMERUS LT EXAM: XR HUMERUS LT CLINICAL HISTORY: proximal humerus fracture. TECHNIQUE: 2D digital imaging was performed. Portable examination. COMPARISON: CR XR SHOULDER LT COMPLETE 2+V from 05/03/2021 CR XR SHOULDER LT COMPLETE 2+V from 05/03/2021 CR XR PORTABLE CHEST AP POST LINE from 05/05/2021 CR XR PORTABLE CHEST AP POST LINE from 05/05/2021 FINDINGS: Exam is limited by patient positioning and leads overlying the humeral shaft. There is a fracture of the surgical neck of the humerus. comminuted fragments are visible. There is no gross change give n differences in projection. No additional fractures are seen distally in the humerus. There has be en a previous distal clavicular resection. IMPRESSION: No gross interval change in alignment of proximal humeral fracture. DATA REPOSITORY: RADIATION DOSE DELIVERED:
[2021-05-07] MEDS: fentaNYL 12 MCG PATCH TD (11:20)
[2021-05-07] MEDS: HYDROmorphone 2 MG TAB PO ×3 (11:31→22:24)
--- NOTE | 2021-05-07 12:38 | NUR.NOTE ---
Heparin drip is dc'd. Nursing Note:
--- NOTE | 2021-05-07 12:39 | NUR.NOTE ---
No changes in Heparin drip were required this a.m. as a result of APTT of Nursing Note: 44.6 not requiring any changes per Heparin protocol.
--- NOTE | 2021-05-07 14:12 | NUR.NOTE ---
RN melquiades's right IJ central using aseptic procedure and suture removal kit. Patient tolerated same well.Nursing Note:
--- NOTE | 2021-05-07 14:30 | NUR.NOTE ---
Report given to Med/fur trapper and then patient is transferred to Med/Surg in stable condition and happy with the care she received in ICU.Nursing Note:
[2021-05-07 17:56] LABS: Iron 24 ug/dL (50-170); Total Iron Binding Capacity 272 ug/dL (250-450); Transferrin Sat 9 % (15-50)
[2021-05-07] MEDS: Atorvastatin 40 MG TAB 80 MG PO (20:09)
[2021-05-07] MEDS: Nystatin POWDER 60 GM JAR TP (20:10)
[2021-05-07] MEDS: Senna TAB 1 TAB PO (22:18)
[2021-05-07] MEDS: Escitalopram 10 MG TAB 5 MG PO (22:18)
[2021-05-07] MEDS: Donepezil 5 MG TAB PO (22:18)
[2021-05-07] MEDS: Insulin Glargine 300 UNITS/3 ML PEN 40 UNITS SC (22:20)
[2021-05-07] MEDS: Normal Saline Flush 10 ML SYR IVP (22:24)
[2021-05-07] MEDS: Lidocaine Patch Removal 2 EACH TD (22:30)
[2021-05-08] VITALS (9 sets, daily range): BP systolic 94–121; BP diastolic 57–72; PULSE 57–77; RESP 17–19; TEMP 35–36.6; O2SAT 93–100
[2021-05-08] MEDS: HYDROmorphone 2 MG TAB PO ×3 (03:28→20:18)
[2021-05-08 07:17] LABS: BUN 33 mg/dL (7-18); CREATININE 1.3 mg/dL (0.55-1.02); Chloride 103 mmol/L (98-107); Estimated GFR 40.61 (mL/min/1.73m2); Glucose 254 mg/dL (74-106); NT-proBNP 805 pg/mL (<300); Potassium 4.3 mmol/L (3.5-5.1); Sodium 142 mmol/L (136-145)
[2021-05-08] MEDS: Budesonide/Formoterol 160/4.5 6 GM 60 PUFF INH IH ×2 (08:03→20:18)
[2021-05-08] MEDS: Midodrine 2.5 MG TAB 5 MG PO (08:24)
[2021-05-08] MEDS: Psyllium PKT 1 EACH PO (08:24)
[2021-05-08] MEDS: Docusate Sodium 100 MG CAP PO ×2 (08:24→20:10)
[2021-05-08] MEDS: Acetaminophen 325 MG TAB 650 MG PO ×4 (08:25→20:10)
[2021-05-08] MEDS: Furosemide 40 MG TAB PO ×2 (08:25→17:55)
[2021-05-08] MEDS: Nystatin POWDER 60 GM JAR TP ×3 (08:25→20:11)
[2021-05-08] MEDS: Pantoprazole 40 MG TABCR PO (08:25)
[2021-05-08] MEDS: Clopidogrel 75 MG TAB PO (08:25)
[2021-05-08] MEDS: Insulin Aspart 300 UNITS/3 ML PEN SC ×6 (08:26→22:03)
--- NOTE | 2021-05-08 09:56 | PTTR_ITS ---
Date of service: 05/08/21 Time of Service: 09:56 PT Notes Visit Reasons: Humerous Fracture, Syncope Inpatient Physical Therapy Treatment Note [facility] Date: 05/08/2021 PRECAUTIONS: Orthostasis increases fall risk. NWB in L UE. Sling only for comfort per most recent orthopod order. SUBJECTIVE: Vomitted x 1 after short ambulation activity with blue emesis bag about 1/4 full of vomitus, Nurse Tricia updated. Reported mild lightheadedness prior to vomiting. Reports 6/10 pain in L shoulder/arm at rest and with ambulation. Wanted to try putting arm on the side with mobility assessment. OBJECTIVE: PAIN: 6/10 in L shoulder/arm BED MOBILITY/TRANSFERS/GAIT: Supine to sit: CGA to L hand Sit to supine: SBA with patient's R hand supporting her L UE, no sling used Sit to stand: Hand-held assist to L UE Stand to sit: SBA THEREX: Patient is able to perform AROM at L elbow from 0 to about 45 degrees and requires assist of opposite hand to complete available ROM with minimal pain felt. Added forearm supinatin and pronation with elbow at 30 degerees bent. Inde pendent with use of foam for finger/hand exercises. ASSESSMENT: Orthostasis continues to limit patient performance of transfer and ambulation. Pain control in L UE improving. Activity tolerance beginning to increase. Patient motivation for mobility performance limited by lightheadedness report. PLAN: Coordinate with nurse to minimize effects of orthostasis prior to PT session. Check BP before initiating out of bed activities. Progress ability to independently and safely do AROM to L shoulder, elbow, and wrist as tolerated. Facilitate return to independent ambulation with SPC for at least 100 feet. TREATMENT CODE/TIME: [place] [id number], 64136 x 12 minutes beginning at 9:56 AM.
[2021-05-08] MEDS: Lidocaine 5% Patch 2 PATCH TP (11:12)
--- NOTE | 2021-05-08 11:50 | W.PM.PROGNOT ---
Date of Service Date of service: 05/08/21 Time of Service: 11:51 Assessment and Plan Assessment and plan (1) Palliative care patient: Status: Acute Assessment and plan: Palliative has consulted and is involved with her long-term care. (2) Orthostatic hypotension: Status: Acute Assessment and plan: Continues to cause symptoms but no syncope since admission. Increase midodrine from 5mg TID to 10mg TID Monitor. (3) Acute congestive heart failure: Status: Acute Assessment and plan: HFpEF; likely diastolic dysfunction. Cont oral lasix; on 40mg po daily at home. Now on 40mg po BID. May need to decrease in background of symptomatic hypotension. A GLP-1 medication for her diabetes would be advantageous upon discharge in regards to her CHF. Qualifiers: Heart failure type: unspecified Qualified Code(s): I50.9 - Heart failure, unspecified (4) NSTEMI (non-ST elevated myocardial infarction): Status: Acute Assessment and plan: Demand ischemia. Peak trop of 0.11 then normalized. Echo showed EF of 50-55% w/o wall motion abnormalities. She completed 48 hours of a heparin drip. Now on Plavix, high dose of atorvastatin. No ASA d/t allergy. No BB d/t low BP. outpt MPI stress testing around 4 weeks post discharge is planned. (5) Fracture of humerus, proximal, left, closed: Status: Acute Assessment and plan: Pain management currently with a 12mcg fentanyl patch and prn po dilaudid. Try to de-escalate narcotics when able. Qualifiers: Encounter type: initial encounter Fracture morphology: other fracture Fracture alignment: displaced Qualified Code(s): S42.292A - Other displaced fracture of upper end of left humerus, initial encounter for closed fracture (6) Discharge planning issues: Status: Acute Assessment and plan: Her grandson Jorge Luis helps care for her and has hired caregivers. Home with new HH RN, PT/OT when medically ready. (7) Type II diabetes mellitus, uncontrolled: Status: Chronic Assessment and plan: A1c of 9.2 Increase lantus from 40units QHS to 45 units. Cont AC insulin and SS insulin correction dosing. Diabetic diet. Qualifiers: Glycemic state: with hyperglycemia Qualified Code(s): E11.65 - Type 2 diabetes mellitus with hyperglycemia (8) Anemia: Status: Chronic Assessment and plan: Hemoglobin 9.7. Was 13.1 on 05/02/21. Iron deficient. Check for blood loss; heme test of stool is pending. Iron level of 24, % saturation of 9. Will give Venofer 300 mg today. Monitor H/H. (9) Chronic respiratory failure with hypoxia: Status: Chronic Assessment and plan: Baseline supplemental O2 needs. In fact, at rest, her O2 saturation on RA was 93%. D/T COPD, pulmonary hypertension, pulmonary fibrosis. No COPD exacerbation currently. Subjective Subjective Patient reports: afebrile; denies shortness of breath Interval history since last seen: Patient had an episode of emesis after working with PT this AM; felt lightheaded. No abd pain. She had eaten breakfast without any problems earilier. No noted melena or hematochezia. She endorses some mild improvement in her left arm pain. Exam Const General: cooperative and no acute distress Resp Effort & Inspection: normal respiratory effort Auscultation: rales bilaterally at the base Cardio Rate: regular rate Rhythm: regular rhythm Heart Sounds: S1 normal and S2 normal GI Palpation: soft and nontender Auscultation: normal bowel sounds Extrem General: no pedal edema and no calf tenderness Objective Last Vital Signs Temp 36.5 C 05/08/21 08:11 Pulse 69 05/08/21 10:31 Resp 17 05/08/21 08:11 BP 121/72 05/08/21 10:31 Pulse Ox 94 05/08/21 08:11 Laboratory Results - last 24 hr 05/06/21 05/08/21 06:00 06:30 Sodium 142 Potassium 4.3 D Chloride 103 Carbon Dioxide 32.0 Anion Gap 7.0 BUN 33 H Creatinine 1.3 H Estimated GFR/1.73 m2 40.61 Glucose 254 H D Calcium 9.0 Iron 24 L TIBC 272 Transferrin % Sat 9 L NT-Pro-B Natriuret Pep 805 H
[2021-05-08] MEDS: IRON SUCROSE COMPLEX 300 MG in Normal Saline 250 ML 167 MG IVPB (14:59)
[2021-05-08] MEDS: Midodrine 2.5 MG TAB 10 MG PO ×2 (14:59→20:11)
[2021-05-08] MEDS: Atorvastatin 40 MG TAB 80 MG PO (20:10)
[2021-05-08] MEDS: Normal Saline Flush 10 ML SYR IVP ×2 (20:18→22:14)
[2021-05-08] MEDS: Escitalopram 10 MG TAB 5 MG PO (22:00)
[2021-05-08] MEDS: Donepezil 5 MG TAB PO (22:00)
[2021-05-08] MEDS: Senna TAB 1 TAB PO (22:00)
[2021-05-08] MEDS: Insulin Glargine 300 UNITS/3 ML PEN 45 UNITS SC (22:02)
[2021-05-08] MEDS: Lidocaine Patch Removal 2 EACH TD (22:04)
[2021-05-08] MEDS: Ondansetron 4 MG/2 ML VIAL IVP (22:14)
[2021-05-09] VITALS (8 sets, daily range): BP systolic 100–118; BP diastolic 53–70; PULSE 54–80; RESP 16–18; TEMP 35.4–37.1; O2SAT 96–100
[2021-05-09] MEDS: HYDROmorphone 2 MG TAB PO ×2 (00:21→05:01)
[2021-05-09 06:54] LABS: Abs Immature Grans 0.03 10^3/uL (0.0-0.06); Absolute Basophil Count 0.04 10^3/uL (0.0-0.2); Absolute Eosinophil Count 0.33 10^3/uL (0.0-0.7); Absolute Monocyte Count 0.61 10^3/uL (0.1-0.8); Absolute Neutrophil Count 6.43 10^3/uL (1.2-6.7); Basophils % 0.4; Eosinophils % 3.6; HCT 32.1 % (36.0-46.0); HGB 10.3 g/dL (11.2-15.7); Immature Grans % 0.3; Lymphocytes % 18.6; MCH 29.9 pg (27.0-33.0); MCHC 32.1 % (32.0-36.0); MPV 9.9 fL (8.0-11.0); Monocytes % 6.7; Neutrophils % 70.4; Nucleated RBC 0 %; Platelet Count 349 10^3/uL (130-400); RBC 3.45 10^6/uL (3.93-5.22); RDW 13.4 % (11.7-14.6); RDW-SD 45.5 fL; WBC 9.14 10^3/uL (4.4-10.8)
[2021-05-09 07:29] LABS: Anion Gap 6.3 mmol/L (3-11); BUN 21 mg/dL (7-18); CO2 31.7 mmol/L (21.0-32.0); CREATININE 0.9 mg/dL (0.55-1.02); Chloride 104 mmol/L (98-107); Glucose 92 mg/dL (74-106); Potassium 3.6 mmol/L (3.5-5.1); Sodium 142 mmol/L (136-145)
[2021-05-09] MEDS: Pantoprazole 40 MG TABCR PO (08:04)
[2021-05-09] MEDS: Midodrine 2.5 MG TAB 10 MG PO ×3 (08:04→20:59)
[2021-05-09] MEDS: Furosemide 40 MG TAB PO ×2 (08:04→16:21)
[2021-05-09] MEDS: Clopidogrel 75 MG TAB PO (08:04)
[2021-05-09] MEDS: Docusate Sodium 100 MG CAP PO ×2 (08:05→20:59)
[2021-05-09] MEDS: Budesonide/Formoterol 160/4.5 6 GM 60 PUFF INH IH ×2 (08:05→20:58)
[2021-05-09] MEDS: Acetaminophen 325 MG TAB 650 MG PO ×4 (08:05→20:59)
[2021-05-09] MEDS: Nystatin POWDER 60 GM JAR TP ×3 (08:05→20:58)
[2021-05-09] MEDS: Lidocaine 5% Patch 2 PATCH TP (09:23)
--- NOTE | 2021-05-09 09:59 | PT.INTREAT ---
Date of service: 05/09/21 Time of Service: 09:45 PT Notes Visit Reasons: Humerous Fracture, Syncope Inpatient Physical Therapy Treatment Note [facility] Date: 05/09/2021 PRECAUTIONS: Activity as tolerated, NWB L UE SUBJECTIVE: Elly states feeling well today, she reports I was sicker than a dog last night and requests in bed activities only today. OBJECTIVE: PAIN: Pain in L elbow with ROM activities BED MOBILITY/TRANSFERS/GAIT: Hold per patient request THEREX: Supervised patient complete AROM activities to L elbow, forearm, wrist, and hand. Patient required minimal cueing for proper completion of ROM activities. ASSESSMENT: Patient continues to require minimal cueing and supervision with AROM activities to L UE for proper completion. PLAN: Continue with gait training and global strengthening, as tolerated. TREATMENT CODE/TIME: 10 minutes; 30830 (09:45)
--- NOTE | 2021-05-09 10:35 | W.PM.PROGNOT ---
Date of Service Date of service: 05/09/21 Time of Service: 10:36 Assessment and Plan Assessment and plan (1) Palliative care patient: Status: Acute Assessment and plan: Palliative has consulted and is involved with her long-term care. (2) Orthostatic hypotension: Status: Acute Assessment and plan: Continues to cause symptoms but no syncope since admission. Increase midodrine from 5mg TID to 10mg TID Monitor. (3) Acute congestive heart failure: Status: Acute Assessment and plan: HFpEF; likely diastolic dysfunction. Cont oral lasix; on 40mg po daily at home. Now on 40mg po BID. May need to decrease in background of symptomatic hypotension; monitoring. A GLP-1 medication for her diabetes would be advantageous upon discharge in regards to her CHF. Qualifiers: Heart failure type: unspecified Qualified Code(s): I50.9 - Heart failure, unspecified (4) NSTEMI (non-ST elevated myocardial infarction): Status: Acute Assessment and plan: Demand ischemia. Peak trop of 0.11 then normalized. Echo showed EF of 50-55% w/o wall motion abnormalities. She completed 48 hours of a heparin drip. Now on Plavix, high dose of atorvastatin. No ASA d/t allergy. No BB d/t low BP. outpt MPI stress testing around 4 weeks post discharge is planned. (5) Fracture of humerus, proximal, left, closed: Status: Acute Assessment and plan: Pain management currently with a 12mcg fentanyl patch and prn po dilaudid. Will d/c dilaudid and offer prn oxycodone 5mg Q4H. Qualifiers: Encounter type: initial encounter Fracture morphology: other fracture Fracture alignment: displaced Qualified Code(s): S42.292A - Other displaced fracture of upper end of left humerus, initial encounter for closed fracture (6) Discharge planning issues: Status: Acute Assessment and plan: Her grandson Jorge Luis helps care for her and has hired caregivers. Home with new HH RN, PT/OT when medically ready. (7) Type II diabetes mellitus, uncontrolled: Status: Chronic Assessment and plan: A1c of 9.2 Increased lantus from 40units QHS to 45 units. This AM her glucose was 99. Cont AC insulin and SS insulin correction dosing. Diabetic diet. Qualifiers: Glycemic state: with hyperglycemia Qualified Code(s): E11.65 - Type 2 diabetes mellitus with hyperglycemia (8) Anemia: Status: Chronic Assessment and plan: Hemoglobin 9.7. Was 13.1 on 05/02/21. Iron deficient. Check for blood loss; heme test of stool is pending. Iron level of 24, % saturation of 9. Will give Venofer 300 mg today. Monitor H/H. (9) Chronic respiratory failure with hypoxia: Status: Chronic Assessment and plan: Baseline supplemental O2 needs. In fact, at rest, her O2 saturation on RA was 93%. D/T COPD, pulmonary hypertension, pulmonary fibrosis. No COPD exacerbation currently. (10) Hiatal hernia: Status: Chronic Assessment and plan: She attributes intermittent nausea and emesis to her hiatal hernia. PRN reglan / stopped prn Zofran. Try to maintain upright position during and after meals. Subjective Subjective Patient reports: afebrile; denies shortness of breath Interval history since last seen: Continues to have intermittent small amounts of emesis; she states it's d/t her hiatal hernia. No abd pain. No noted melena or hematochezia. Left arm pain kept her up much of the night. Exam Const General: cooperative and no acute distress Resp Effort & Inspection: normal respiratory effort Auscultation: rales bilaterally at the base Cardio Rate: regular rate Rhythm: regular rhythm Heart Sounds: S1 normal and S2 normal GI Palpation: soft and nontender Auscultation: normal bowel sounds Extrem General: no pedal edema and no calf tenderness Left upper extremity: shoulder/upper arm Details: tenderness; no edema Objective Last Vital Signs Temp 37.1 C 05/09/21 07:30 Pulse 69 05/09/21 07:30 Resp 18 05/09/21 07:30 BP 108/53 L 05/09/21 07:30 Pulse Ox 98 05/09/21 07:30 Laboratory Results - last 24 hr 05/09/21 05/09/21 06:10 06:10 WBC 9.14 RBC 3.45 L Hgb 10.3 L Hct 32.1 L MCV 93.0 MCH 29.9 MCHC 32.1 RDW 13.4 Plt Count 349 MPV 9.9 Immature Gran % 0.3 Neutrophils % 70.4 Lymphocytes % 18.6 Monocytes % 6.7 Eosinophils % 3.6 Basophils % 0.4 Nucleated RBC % 0 Absolute Neutrophils 6.43 Absolute Lymphocytes 1.70 Absolute Monocytes 0.61 Absolute Eosinophils 0.33 Absolute Basophils 0.04 Sodium 142 Potassium 3.6 Chloride 104 Carbon Dioxide 31.7 Anion Gap 6.3 BUN 21 H D Creatinine 0.9 Estimated GFR/1.73 m2 >= 60.00 Glucose 92 D Calcium 9.0
[2021-05-09] MEDS: oxyCODONE 5 MG TAB PO ×2 (12:45→17:16)
[2021-05-09] MEDS: Insulin Aspart 300 UNITS/3 ML PEN SC ×3 (12:48→17:15)
[2021-05-09] MEDS: Metoclopramide 10 MG TAB PO (19:29)
[2021-05-09] MEDS: Atorvastatin 40 MG TAB 80 MG PO (20:59)
[2021-05-09] MEDS: Donepezil 5 MG TAB PO (21:07)
[2021-05-09] MEDS: Escitalopram 10 MG TAB 5 MG PO (21:08)
[2021-05-09] MEDS: Senna TAB 1 TAB PO (21:08)
[2021-05-09] MEDS: Cyclobenzaprine 10 MG TAB 5 MG PO (21:15)
[2021-05-09] MEDS: Melatonin 3 MG TAB PO (21:16)
[2021-05-09] MEDS: Insulin Glargine 300 UNITS/3 ML PEN 45 UNITS SC (21:18)
[2021-05-09] MEDS: Lidocaine Patch Removal 2 EACH TD (21:19)
--- NOTE | 2021-05-09 21:31 | NUR.NOTE ---
Patient requested all 4 rails to be elevated, state she is afraid to fall out of bed
[2021-05-10 07:06] VITALS: BP 109/53; PULSE 64; RESP 18; TEMP 36; O2SAT 98
[2021-05-10] MEDS: Budesonide/Formoterol 160/4.5 6 GM 60 PUFF INH IH (08:03)
[2021-05-10] MEDS: Midodrine 2.5 MG TAB 10 MG PO ×3 (08:05→19:58)
[2021-05-10] MEDS: Pantoprazole 40 MG TABCR PO (08:06)
[2021-05-10] MEDS: Acetaminophen 325 MG TAB 650 MG PO ×4 (08:06→19:57)
[2021-05-10] MEDS: Furosemide 40 MG TAB PO ×2 (08:07→15:39)
[2021-05-10] MEDS: Docusate Sodium 100 MG CAP PO ×2 (08:07→19:57)
[2021-05-10] MEDS: Clopidogrel 75 MG TAB PO (08:07)
[2021-05-10] MEDS: Nystatin POWDER 60 GM JAR TP ×3 (08:08→19:57)
--- NOTE | 2021-05-10 08:58 | OTTR_ITS ---
Date of service: 05/10/21 Time of Service: 08:45 Occupational Therapy Notes Occupational Therapy Inpatient Treatment Note Date: 05/10/21 PRECAUTIONS: Fall, standard, Full SUBJECTIVE: Pt was sitting in bed when OT arrived she was agreeable to session but notes that she is tired today and got washed up well last night. She is receptive to dressing techniques. OBJECTIVE: PAIN:pt has no c/o pain while OT was present in the room. She notes bruising on her arm and notes that she has never noticed this prior. BATHING: NT as pt denies DRESSING: Upper Extremity: (I) don and [facility] gown Lower Extremity: Max (A) (B) socks but pt states she can do this she is just tired. OT educates pt on in first out last technique for UE dressing and goes over technique with pt although pt denies performance today. ASSESSMENT/PLAN: Per pt report she may be transferring to [facility] for a hernia repair. She is feeling better and appears to be more motivated to perform her ADLs at this time than previously in the ICU. She is receptive to education and training. TREATMENT CODES/TIME: [id number], 15 minutes (08:45) Trinidad Philip OTR/[facility]
--- NOTE | 2021-05-10 09:12 | W.PULMCON ---
General Date Of Service Date of service: 05/10/21 Time of Service: 08:30 Requesting physician: Fredy Weaver Reason for Consult: Cough, abnormal Chest CT, SOB Assessment and Plan Assessment and plan (1) Interstitial lung disease: Status: Acute Assessment and plan: She holds the diagnosis of unspecified pulmonary fibrosis even after surgical lung biopsy. Based on her imaging this is not typical UIP however her imaging and spirometry as well as symptoms have progressively worsened since her diagnosis which led to the initiation of antifibrotic therapy (Ofev). She is on a lower dose due to side effects of diarrhea. We will be repeating some of the autoimmune labs that were previously done to ensure there is not an autoimmune component, although she has seen rheumatology in the past who is felt that she does not carry a rheumatologic diagnosis aside from osteoarthritis. - continue OFEV (home med) - CARLOS, RF ordered - she has an appointment with me in May (2) Chronic pulmonary aspiration: Status: Acute Assessment and plan: It seems as though she has been struggling with chronic aspiration and this may even be a factor that has resulted in her worsening lung function as well as imaging. It may be related to her acid reflux as well as her hiatal hernia however continued aspiration events will most certainly worsen her pulmonary fibrosis and may ultimately lead to more significant infectious sequelae such as complicated pneumonias with empyema or pulmonary abscess. She has already been admitted several times for pulmonary infections. - recommend [employer]OMIST consultation - ramp bed while sleeping - foam ramp and lift head of bed - recommend increasing pantoprazole to 40mg bid from daily - no eating 2-3 hours prior to going to bed - will measure immunoglobulin levels given her recurrent pneumonias Qualifiers: Encounter type: subsequent encounter Qualified Code(s): T17.908D - Unspecified foreign body in respiratory tract, part unspecified causing other injury, subsequent encounter (3) Gastroesophageal reflux disease without esophagitis: Status: Chronic Assessment and plan: Her GERD is certainly worsening her respiratory status and may also be contributing to her dry cough. Issue and have her medical management of her GERD completely optimized which may involve increasing her current dose of PPI. - as above, increase pantoprazole dose (4) Hiatal hernia: Status: Chronic Assessment and plan: Given that her hiatal hernia is likely contributing to the degree of reflux and possibly aspiration this problem should be entertained to be fixed. Granted she is not the best surgical candidate however she should have consultation with a general surgeon to discuss the possibility of performing a Marian fundoplication in order to prevent further worsening of her pulmonary fibrosis. -recommend outpatient surgery referral for Marian (5) Asthma: Status: Chronic Assessment and plan: She holds a diagnosis of asthma however I doubt this is actively contributing to her symptoms. In addition the inhaled corticosteroid could potentially be increasing her risk of developing pneumonia and in her situation with her chronic aspiration events this is possibly more risk than would be beneficial. - would D/C Symbicort Qualifiers: Asthma severity: mild Asthma persistence: persistent Asthma complication type: uncomplicated Qualified Code(s): J45.30 - Mild persistent asthma, uncomplicated History of Present Illness History of Present Illness Chief Complaint: Cough, Shortness of Breath Narrative: This is a 70-year-old female who is admitted for syncope and a humerus fracture on May 02, 2021. This is a chronically ill woman who has poorly controlled diabetes with multiple admissions for hyperglycemia, HFpEF as well as a hiatal hernia with acid reflux. Pulmonary was consulted for an abnormal chest CT as well as intermittent oxygen requirements. She did have a nocturnal oximetry completed that showed an LAKSHMI of 55. She has seen pulmonary in the past with Dr. Burris for her interstitial lung disease. She has also been seen previously by rheumatology for a positive CARLOS and positive ROS who believes that her arthritis was more consistent with osteoarthritic changes as opposed to rheumatoid arthritis. She even underwent thorascopic lung biopsy which was not consistent with UIP. She was trialed on Ofev as an antifibrotic agent however developed diarrhea on this. Dose was reduced at the last visit. Per previous pulmonary notes she had a negative biomarker 3 panel. I am unsure her status with pulmonary care as the last note I can see is from June 2020 so it is possible she may have been lost to follow-up. However, her med list does include Ofev so presumably she is currently on antifibrotic therapy. She has chronic issues with aspiration and even states that she coughs and sometimes vomits after eating or drinking. She denies any exposures to asbestos, mold, chemical irritants, or other test. 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 She currently lives in an apartment that she states is clean and has never noticed any mold, dust or asbestos there. She does not have any pets in the home. She does have a history of asthma. She is a never smoker and does not use any other forms of drug or alcohol. She does have exposures to secondhand smoke from her father. She does have 1 brother who is lung cancer and was a heavy smoker. She has several chest images that show hiatal hernia as well as fibrotic lung disease as well as prior PFT's: Spirometry Date FEV1/FVC LLN FEV1 %FEV1 LLN FVC %FVC LLN Comments 11/13/19 87 66 1.49 79 1.37 1.72 69 1.89 no BD 01/25/21 88 76 1.61 87 1.34 1.81 74 1.85 no BD Date TLC %TLC RV %RV DLCO LLN sGaw %sGaw 11/13/19 2.45 56 0.76 39 6.71 0.43 209 01/25/21 2.15 50 0.46 23 0.60 291 CXR 05/05/21 My impression: Significant volume loss on the right with mediatinal shifting and interstital infiltrates present. Right IJ in satisfactory position. Some peribronchial cuffing and fluffy infiltrates. Rads report: Heart size unchanged. Mediastinum unchanged. The distal tip of the newly placed right supra clavi in central line is at the junction of the SVC and right atrium. Increased markings in the lung bases unchanged from previous. There is no pneumothorax. No obvious pleural effusions. Left shoulder fracture again noted. IMPRESSION: No acute pulmonary findings on this single AP portable view of the chest TTE 05/02/21 EF 50-55%. RV mildly dilated. RVSP 32mmHg Chest CT 12/04/20 My impression:There is septal thickening (R>L). There is bilateral basilar and peripheral predominant interstitial infiltrate consistent with fibrosis. There is bilateral traction bronchiestasis. There is no honeycombing.All finding are more predominant on the right. Rads report: CHEST: Vascular: There is some air seen within the main pulmonary artery on this noninfused study there is no adjacent mediastinal hematoma. No sternal fracture evident. No pericardial effusion LUNGS: Chronic interstitial disease in both lung aguilar consistent with pulmonary fibrosis. Few tiny calcified granulomas are noted in the right lung. No pneumothorax. No pleural effusions.. MEDIASTINUM: There is no hilar nor mediastinal adenopathy. Partially visualized thyroid unremarkable.Air seen with in main pulmonary artery outflow tract. CARDIAC: Heart size is normal. There is no pericardial effusion.Caliber of the thoracic aorta is within normal limits. OSSEOUS: No fractures identifiedno significant osseous lesions. Consults Consult date: 05/10/21 Review of Systems All systems reviewed & are unremarkable except as noted in HPI and below Cardiovascular Cardiovascular: Reports dyspnea Respiratory Respiratory: Reports dyspnea Musculoskeletal Musculoskeletal: Reports arthralgias [facility] Medical History Abdominal pain Acute gastroenteritis (03/16/18) Acute kidney injury (nontraumatic) Acute pneumonitis Anxiety (03/16/18) Asthma Asthma Back pain CHF (congestive heart failure) Chronic constipation (03/16/18) Cognitive impairment (03/16/18) Mild, w/Memory Loss Cubital tunnel syndrome (03/16/18) Depressive disorder DKA (diabetic ketoacidoses) Dyspnea (03/16/18) Edema (03/16/18) Essential hypertension (07/17/13) Gastroesophageal reflux disease without esophagitis (03/16/18) Grief brother Nov 2020 History of shingles (03/16/18) Hyperlipemia Insulin dependent diabetes mellitus Internal derangement of right knee Interstitial lung disease (03/16/18) Pulm: Jedlovsky Long-term use of high-risk medication (03/16/18) Low-level of literacy Metabolic acidosis with normal anion gap and bicarbonate losses Migraine (04/03/14) Neck pain (03/16/18) 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 History of section Ligation of fallopian tube Thoracoscopic (R)Lung Bx (02/12/18) Family History Mother , aged 81 from dementia, per Elly Diabetes Essential hypertension CHF (congestive heart failure) Heart disease CHF/heart failure Dementia Father , aged 80 Diabetes Essential hypertension CAD (coronary artery disease) Heart disease [place] Hyperlipidemia Stroke Sister , aged 54 Diabetes Personal history of malignant neoplasm Lung Asthma Lung cancer Brother , of mesithelioma aged 62 Diabetes Essential hypertension Personal history of malignant neoplasm Lung, Prostate Hyperlipidemia Asthma Mesothelioma Brother , of PE following knee surgery age 69 Pulmonary embolus with infarction Daughter No problems noted. Son No problems noted. Social History Smoking/Tobacco Use Status: Never Smoking risk assessment performed?: Yes Alcohol Intake: current Alcohol Intake frequency: holidays/special occasions only Details: monthly or less Drug use: Never Substance use type: does not use Adopted: No Caregiver/Support person: No Foster care: No Household members: none Housing: apartment Number of Children: 2 number of grandchildren: 5 Communication Needs: Hard of Hearing and Corrective Lenses Education Level: middle school Do you need help understanding health information?: Always current occupation: retired [employer] Pets and animals: Yes Pets and animals: cat(s) Sexually active: No Do you think of yourself as: straight/heterosexual Current gender identity: female What is your relationship status?: How often do you talk on the phone with friends or family?: three or more times per week How often do you get together with friends or relatives?: three or more times per week How often do you attend rastafarian or religion services?: 1-3 times per year Do you belong to any clubs or organized social groups?: no Panel score (0-1 are the most socially isolated patients): 1 What type of physical activity do you participate in: none and sedentary lifestyle Duration: < 15 minutes/day Frequency: does not exercise Bibi/Yarsanism: Congregation Special bibi needs: No Agree to transfusion: Yes Seatbelt use: sometimes Helmet use: No Drive intox or ride w/intox local company truck driver: No Water heater temp set <120 deg: Yes Working smoke detector in home: Yes Fire extinguisher in home: Yes Carbon monox detector in home: Yes Do you feel safe at home: Yes Do you feel safe in your relationship?: Yes Victim of physical abuse: No Victim of emotional abuse: No Victim of sexual abuse: No Would you like helpful sources: No Additional Social history: Recently in the [facility] x 2 mos. Didn't feel she needed to be there. She reports was supposed to be a 2 week stay. She said she did all her own care. She says the staff is stretched thin. She can take care of herself at home just fine. She says her family is more worried about her than they need to be. Visit Medication and Allergies Active Medications Generic Name Dose Route Start Last Admin Trade Name Tawnya PRN Reason Stop Dose Admin Acetaminophen 650 mg 05/04/21 16:00 05/10/21 08:06 Acetaminophen 325 Mg Tab PO 650 mg QID ILSA Administration Atorvastatin Calcium 80 mg 05/05/21 20:00 05/09/21 20:59 Atorvastatin 40 Mg Tab PO 80 mg QPM ILSA Administration Bisacodyl 10 mg 05/03/21 15:56 Bisacodyl 10 Mg Supp SC DAILY PRN PRN Budesonide/Formoterol Fumarate 0 puff 05/03/21 08:30 05/10/21 08:03 Budesonide/Formoterol 160/4.5 6 Gm 60 Puff Inh IH 2 puffs BID ILSA Administration Clopidogrel Bisulfate 75 mg 05/06/21 08:30 05/10/21 08:07 Clopidogrel 75 Mg Tab PO 75 mg DAILY ILSA Administration Cyclobenzaprine HCl 5 mg 05/02/21 20:00 05/09/21 21:15 Cyclobenzaprine 10 Mg Tab PO 5 mg TID PRN PRN Administration muscle spasm Dextrose 0 gm 05/02/21 19:59 Glucose 40% Oral Solution 15 Gm/37.5 Gm Tube PO DIRECTED PRN Dextrose/Water 0 gm 05/02/21 19:59 Dextrose 50%-Water 25 Gm/50 Ml Syr IVP DIRECTED PRN Dimethicone/Zinc Oxide 0 gm 05/02/21 19:55 Debbie Protect Cream 142 Gm Tube TP PRN PRN Docusate Sodium 100 mg 05/03/21 20:00 05/10/21 08:07 Docusate Sodium 100 Mg Cap PO 100 mg BID ILSA Administration Donepezil HCl 5 mg 05/02/21 22:00 05/09/21 21:07 Donepezil 5 Mg Tab PO 5 mg HS ILSA Administration Escitalopram Oxalate 5 mg 05/02/21 22:00 05/09/21 21:08 Escitalopram 10 Mg Tab PO 5 mg HS ILSA Administration Fentanyl 12 mcg 05/07/21 10:00 05/07/21 11:20 Fentanyl 12 Mcg Patch TD 12 mcg Q72H ILSA Administration Furosemide 40 mg 05/06/21 16:00 05/10/21 08:07 Furosemide 40 Mg Tab PO 40 mg BID@0830,1600 ILSA Administration Insulin Aspart 0 units 05/06/21 11:30 05/09/21 21:19 Insulin Aspart 300 Units/3 Ml Pen SC Not Given AC & HS ILSA Protocol Insulin Aspart 0 units 05/06/21 11:30 05/09/21 17:15 Insulin Aspart 300 Units/3 Ml Pen SC 4 units AC ILSA Administration Insulin Glargine 45 units 05/08/21 22:00 05/09/21 21:18 Insulin Glargine 300 Units/3 Ml Pen SC 45 units HS ILSA Administration Lidocaine 2 patch 05/03/21 10:00 05/09/21 09:23 Lidocaine 5% Patch TP 2 patch Q24H ILSA Administration Melatonin 3 - 6 mg 05/02/21 19:57 05/09/21 21:16 Melatonin 3 Mg Tab PO 6 mg HS PRN PRN Administration Metoclopramide HCl 5 mg 05/10/21 11:30 Metoclopramide 10 Mg Tab PO AC [facility] Midodrine 10 mg 05/08/21 14:00 05/10/21 08:05 Midodrine 2.5 Mg Tab PO 10 mg TID ILSA Administration Miscellaneous 2 each 05/03/21 22:00 05/09/21 21:19 Lidocaine Patch Removal TD 2 each Q24H ILSA Administration Mycophenolate Mofetil 500 mg 05/04/21 14:00 05/10/21 08:06 Mycophenolate Mofetil 500 Mg Tab PO 500 mg TID ILSA Administration Nitroglycerin 0.4 mg 05/05/21 11:17 Nitroglycerin 0.4 Mg Tab SL Q5 MIN PRN X3 PRN Nystatin 0 gm 05/03/21 14:00 05/10/21 08:08 Nystatin Powder 60 Gm Jar TP 1 applic TID ILSA Administration Oxycodone HCl 5 mg 05/09/21 08:46 05/09/21 17:16 Oxycodone 5 Mg Tab PO 5 mg Q4H PRN PRN Administration Pantoprazole Sodium 40 mg 05/04/21 07:30 05/10/21 08:06 Pantoprazole 40 Mg Tabcr PO 40 mg DAILY@0730 ILSA Administration Pt's Own Nintedanib 1 each 05/05/21 08:30 05/10/21 08:07 [Ofev] 100 Mg PO 1 each Capsule DAILY ILSA Administration Polyethylene Glycol 17 gm 05/07/21 10:48 Polyethylene Glycol 3350 17 Gm Packet PO DAILY PRN PRN Constipation Psyllium Hydrophilic Mucilloid 1 each 05/03/21 20:00 05/10/21 08:09 Psyllium Pkt PO Not Given BID ILSA Sennosides 1 tab 05/03/21 22:00 05/09/21 21:08 Senna Tab PO 1 tab HS ILSA Administration Sodium Chloride 0 ml 05/02/21 21:40 05/08/21 22:14 Normal Saline Flush 10 Ml Syr IVP 10 ml PRN PRN Administration Allergies aspirin Allergy (Unknown, Verified 05/02/21 16:46) HIVES, flip out diclofenac Allergy (Unknown, Verified 05/02/21 16:46) RASH latex Allergy (Unknown, Verified 05/02/21 16:46) SKIN BREAKDOWN NSAIDS (Non-Steroidal Anti-Inflamma Allergy (Unknown, Verified 05/02/21 16:46) HIVES, VOMITING morphine Adverse Reaction (Unknown, Verified 05/02/21 16:46) VOMITING Exam Const General: no acute distress Nutritional Appearance: well nourished [facility] Head: normocephalic Ears: external ears normal and no periauricular adenopathy General nose exam: nasal mucous membranes and turbinates normal Face and sinus: sinuses nontender Mouth: oropharynx normal and moist mucous membranes Teeth and gingiva: other (No teeth on top, missing teeth on bottom) Eyes General: appearance normal, both eyes and all related structures Pupils: PERRL Neck Neck: normal visual inspection and no lymphadenopathy Chest Chest: normal inspection of the chest Resp Effort & Inspection: normal respiratory effort Auscultation: rales (predominantly at the bases) bilaterally, no rhonchi and no wheezes Cardio Rate: regular rate Rhythm: regular rhythm Heart Sounds: S1 normal, S2 normal and no murmurs Pulses: radial pulses present bilaterally GI Inspection: normal to inspection Palpation: soft Skin General skin exam: no rashes or lesions noted Neuro General: patient alert, patient awake and patient oriented x3 Extrem General: no clubbing, cyanosis or edema Psych Mental Status: mental status grossly normal Affect: normal affect Attitude: cooperative Results Last Vital Signs Temp 36 C L 05/10/21 07:06 Pulse 64 05/10/21 07:06 Resp 18 05/10/21 07:06 BP 109/53 L 05/10/21 07:06 Pulse Ox 98 05/10/21 07:06 Labs Result diagrams: 05/09/21 06:10 05/09/21 06:10
[2021-05-10] MEDS: Insulin Aspart 300 UNITS/3 ML PEN SC ×5 (09:23→21:53)
[2021-05-10] MEDS: fentaNYL 12 MCG PATCH TD (10:56)
[2021-05-10] MEDS: Lidocaine 5% Patch 2 PATCH TP ×2 (10:57→16:07)
[2021-05-10 11:26] VITALS: PULSE 63
[2021-05-10] MEDS: Metoclopramide 10 MG TAB 5 MG PO ×2 (11:32→16:05)
--- NOTE | 2021-05-10 11:45 | PT.INTREAT ---
Date of service: 05/10/21 Time of Service: 11:10 PT Notes Visit Reasons: Humerous Fracture, Syncope Inpatient Physical Therapy Treatment Note [facility] Date: 05/10/2021 PRECAUTIONS: Activity as Tolerated, NWB L UE SUBJECTIVE: Elly states that she is feeling a little better today. She hopes that she can discharge to home soon. OBJECTIVE: Patient requests to hold OOB activities for the morning PAIN: Patient c/o L elbow discomfort with elbow flexion and extension with forearm in pronation BED MOBILITY/TRANSFERS Sit-stand: S Stand-sit: S GAIT Assistive Device: SPC Weight bearing: Full Assist: SBA Distance: ~80' Deviation: Patient c/o becoming sweaty, dizzy, and nauseous (nursing aware) THEREX: Patient completes AAROM throughout L elbow, forearm, wrist, and hand, with minimal cueing required for proper execution. TOILETING: Patient toileted with assist ASSESSMENT: Patient continues to require cueing for proper execution of AAROM exercises to L UE. She was able to tolerate gait training, although became sweaty, dizzy, and nauseous. PLAN: Continue with gait training, global strengthening, and L UE AAROM, as tolerated. TREATMENT CODE/TIME: Session 1: 10 minutes; 25045 (11:10) Session 2: 15 minutes; [id number] (12:45)
--- NOTE | 2021-05-10 12:50 | PDOC.CMPRO ---
- If Service Date Differs Date of service: 05/10/21 Time of Service: 12:50 Care Management Progress Note S/O: Elly was sitting up in bed when CM met with him. She reported that she was feeling better today, but still not at her baseline. Per PT, her nausea has limited her work with them. She was started on a medication for her nausea, and she reported that she is not feeling nauseas at the time that CM met with her. PT will continue to work with her while she is inpatient to help her strengthen prior to returning home. Elly stated that she wants to be home when her daughter arrives, which is in three days. CM provided an update to Jorge Luis today by phone. CM will continue to follow. A: Elly is a 70 year old female admitted to [facility] on 05/02/21 with a humerous fracture, syncope. P: Elly continues to refuse rehab prior to returning home. She will be seen by Palliative Care to help determine her goals of care/discharge plan. Evaluations from PT/OT will also help determine her plan. She will likely be transported via private vehicle by family. She will follow up with her PCP and discharge plan of care. CM will continue to follow.
[2021-05-10] MEDS: oxyCODONE 5 MG TAB PO ×2 (13:03→21:46)
--- NOTE | 2021-05-10 14:06 | W.PM.PROGNOT ---
Date of Service Date of service: 05/10/21 Time of Service: 14:14 Assessment and Plan Assessment and plan (1) Palliative care patient: Status: Acute Assessment and plan: Palliative has consulted and is involved with her long-term care. (2) Orthostatic hypotension: Status: Acute Assessment and plan: No lightheadedness for 24 hours. Cont midodrine 10mg TID Monitor. (3) Acute congestive heart failure: Status: Acute Assessment and plan: HFpEF; likely diastolic dysfunction. Cont oral lasix; on 40mg po daily at home. Now on 40mg po BID. May need to decrease in background of symptomatic hypotension; monitoring. A GLP-1 medication for her diabetes would be advantageous upon discharge in regards to her CHF. Qualifiers: Heart failure type: unspecified Qualified Code(s): I50.9 - Heart failure, unspecified (4) NSTEMI (non-ST elevated myocardial infarction): Status: Acute Assessment and plan: Demand ischemia. Peak trop of 0.11 then normalized. Echo showed EF of 50-55% w/o wall motion abnormalities. She completed 48 hours of a heparin drip. Now on Plavix, high dose of atorvastatin. No ASA d/t allergy. No BB d/t low BP. outpt MPI stress testing around 4 weeks post discharge is planned. (5) Fracture of humerus, proximal, left, closed: Status: Acute Assessment and plan: Pain management currently with a 12mcg fentanyl patch and prn oxycodone 5 mg Qualifiers: Encounter type: initial encounter Fracture morphology: other fracture Fracture alignment: displaced Qualified Code(s): S42.292A - Other displaced fracture of upper end of left humerus, initial encounter for closed fracture (6) Discharge planning issues: Status: Acute Assessment and plan: Her grandson Jorge Luis helps care for her and has hired caregivers. Home with new HH RN, PT/OT when medically ready. (7) Type II diabetes mellitus, uncontrolled: Status: Chronic Assessment and plan: A1c of 9.2 Increased lantus from 40units QHS to 45 units. Much improved control now noted. Cont AC insulin and SS insulin correction dosing. Diabetic diet. Qualifiers: Glycemic state: with hyperglycemia Qualified Code(s): E11.65 - Type 2 diabetes mellitus with hyperglycemia (8) Anemia: Status: Chronic Assessment and plan: Hemoglobin improved to 10.3. Was 13.1 on 05/02/21. Iron deficient. Hemetest of stool was neg. Iron level of 24, % saturation of 9. Gave Venofer 300 mg. Monitor H/H. (9) Chronic respiratory failure with hypoxia: Status: Chronic Assessment and plan: Baseline supplemental O2 needs. In fact, at rest, her O2 saturation on RA was 93%. D/T pulmonary hypertension, pulmonary fibrosis. Review of previous PFT's by resp therapy showed no reversible airway disease. Consult pulmonary medicine. Symbicort stopped. Previous CT chest showed evidence of aspiration; likely chronic. Hiatal hernia may play a role in her aspiration, as well as likely diabetic related gastroparesis. She will f/u with pulmonology as an outpt. (10) Hiatal hernia: Status: Chronic Assessment and plan: She attributes intermittent nausea and emesis to her hiatal hernia. Will schedule Reglan 5mg po QAC. LIkely a componenet of gastroparesis. Try to maintain upright position during and after meals. Subjective Subjective Patient reports: still having pain (left upper arm) and afebrile; denies shortness of breath Interval history since last seen: Continues to have intermittent small amounts of emesis; she states it's d/t her hiatal hernia. No abd pain. No noted melena or hematochezia. Exam Const General: cooperative and no acute distress Resp Effort & Inspection: normal respiratory effort Auscultation: rales bilaterally at the base Cardio Rate: regular rate Rhythm: regular rhythm Heart Sounds: S1 normal and S2 normal GI Palpation: soft and nontender Auscultation: normal bowel sounds Extrem General: no pedal edema and no calf tenderness Left upper extremity: shoulder/upper arm Details: tenderness; no edema Objective Last Vital Signs Temp 36 C L 05/10/21 07:06 Pulse 63 05/10/21 11:26 Resp 18 05/10/21 07:06 BP 109/53 L 05/10/21 07:06 Pulse Ox 98 05/10/21 07:06
[2021-05-10 15:04] VITALS: PULSE 77
[2021-05-10 15:53] VITALS: BP 115/55; PULSE 71; RESP 19; TEMP 36.5; O2SAT 93
[2021-05-10] MEDS: Polyethylene Glycol 3350 17 GM PACKET PO (17:36)
[2021-05-10] MEDS: Atorvastatin 40 MG TAB 80 MG PO (19:57)
[2021-05-10] MEDS: Cyclobenzaprine 10 MG TAB 5 MG PO (21:43)
[2021-05-10] MEDS: Escitalopram 10 MG TAB 5 MG PO (21:44)
[2021-05-10] MEDS: Melatonin 3 MG TAB PO (21:46)
[2021-05-10] MEDS: Senna TAB 1 TAB PO (21:46)
[2021-05-10] MEDS: Donepezil 5 MG TAB PO (21:46)
[2021-05-10] MEDS: Insulin Glargine 300 UNITS/3 ML PEN 45 UNITS SC (21:47)
[2021-05-10] MEDS: Lidocaine Patch Removal 2 EACH TD (21:47)
[2021-05-10 23:54] VITALS: BP 119/72; PULSE 64; RESP 16; TEMP 36.5; O2SAT 89
[2021-05-11 07:07] VITALS: PULSE 66
[2021-05-11 07:15] VITALS: BP 106/52; PULSE 70; RESP 20; TEMP 36.1; O2SAT 98
--- NOTE | 2021-05-11 07:39 | PGE_ITS ---
General Date Of Service Date of service: 05/11/21 Time of Service: 08:30 Requesting physician: Fredy Weaver Subjective 24 Hour Events: On O2 overnight Note Note: Elly is doing well today. He denies any aspiration or choking after eating last night. She has been on oxygen throughout the night and is on 2 L this morning and was saturating 97%. She feels as though her breathing is okay. Exam Const General: no acute distress Nutritional Appearance: well nourished [facility] Head: normocephalic Ears: external ears normal and no periauricular adenopathy General nose exam: nasal mucous membranes and turbinates normal Face and sinus: sinuses nontender Mouth: oropharynx normal and moist mucous membranes Eyes General: appearance normal, both eyes and all related structures Pupils: PERRL Neck Neck: normal visual inspection and no lymphadenopathy Chest Chest: normal inspection of the chest Resp Effort & Inspection: normal respiratory effort Auscultation: rales, no rhonchi and no wheezes Cardio Rate: regular rate Rhythm: regular rhythm Heart Sounds: S1 normal, S2 normal and no murmurs Pulses: radial pulses present bilaterally GI Inspection: normal to inspection Palpation: soft Skin General skin exam: no rashes or lesions noted Neuro General: patient alert, patient awake and patient oriented x3 Extrem General: no clubbing, cyanosis or edema Psych Mental Status: mental status grossly normal Affect: normal affect Attitude: cooperative Objective Last Vital Signs Temp 36.1 C L 05/11/21 07:15 Pulse 70 05/11/21 07:15 Resp 20 05/11/21 07:15 BP 106/52 L 05/11/21 07:15 Pulse Ox 98 05/11/21 07:15 Results Medications Medications: Active Medications Generic Name Dose Route Start Last Admin Trade Name Freq PRN Reason Stop Dose Admin Acetaminophen 650 mg 05/04/21 16:00 05/10/21 19:57 Acetaminophen 325 Mg Tab PO 650 mg QID ILSA Administration Atorvastatin Calcium 80 mg 05/05/21 20:00 05/10/21 19:57 Atorvastatin 40 Mg Tab PO 80 mg QPM ILSA Administration Bisacodyl 10 mg 05/03/21 15:56 Bisacodyl 10 Mg Supp MD DAILY PRN PRN Clopidogrel Bisulfate 75 mg 05/06/21 08:30 05/10/21 08:07 Clopidogrel 75 Mg Tab PO 75 mg DAILY ILSA Administration Cyclobenzaprine HCl 5 mg 05/02/21 20:00 05/10/21 21:43 Cyclobenzaprine 10 Mg Tab PO 5 mg TID PRN PRN Administration muscle spasm Dextrose 0 gm 05/02/21 19:59 Glucose 40% Oral Solution 15 Gm/37.5 Gm Tube PO DIRECTED PRN Dextrose/Water 0 gm 05/02/21 19:59 Dextrose 50%-Water 25 Gm/50 Ml Syr IVP DIRECTED PRN Dimethicone/Zinc Oxide 0 gm 05/02/21 19:55 Debbie Protect Cream 142 Gm Tube TP PRN PRN Docusate Sodium 100 mg 05/03/21 20:00 05/10/21 19:57 Docusate Sodium 100 Mg Cap PO 100 mg BID ILSA Administration Donepezil HCl 5 mg 05/02/21 22:00 05/10/21 21:46 Donepezil 5 Mg Tab PO 5 mg HS ILSA Administration Escitalopram Oxalate 5 mg 05/02/21 22:00 05/10/21 21:44 Escitalopram 10 Mg Tab PO 5 mg HS ILSA Administration Fentanyl 12 mcg 05/07/21 10:00 05/10/21 10:56 Fentanyl 12 Mcg Patch TD 12 mcg Q72H ILSA Administration Furosemide 40 mg 05/06/21 16:00 05/10/21 15:39 Furosemide 40 Mg Tab PO 40 mg BID@0830,1600 ILSA Administration Insulin Aspart 0 units 05/06/21 11:30 05/10/21 21:53 Insulin Aspart 300 Units/3 Ml Pen SC 9 units AC & HS ILSA Administration Protocol Insulin Aspart 0 units 05/06/21 11:30 05/10/21 17:35 Insulin Aspart 300 Units/3 Ml Pen SC 4 units AC ILSA Administration Insulin Glargine 45 units 05/08/21 22:00 05/10/21 21:47 Insulin Glargine 300 Units/3 Ml Pen SC 45 units HS ILSA Administration Lidocaine 2 patch 05/03/21 10:00 05/10/21 10:57 Lidocaine 5% Patch TP 2 patch Q24H ILSA Administration Melatonin 3 - 6 mg 05/02/21 19:57 05/10/21 21:46 Melatonin 3 Mg Tab PO 6 mg HS PRN PRN Administration Metoclopramide HCl 5 mg 05/10/21 11:30 05/10/21 16:05 Metoclopramide 10 Mg Tab PO 5 mg AC ILSA Administration Midodrine 10 mg 05/08/21 14:00 05/10/21 19:58 Midodrine 2.5 Mg Tab PO 10 mg TID ILSA Administration Miscellaneous 2 each 05/03/21 22:00 05/10/21 21:47 Lidocaine Patch Removal TD 2 each Q24H ILSA Administration Mycophenolate Mofetil 500 mg 05/04/21 14:00 05/10/21 19:58 Mycophenolate Mofetil 500 Mg Tab PO 500 mg TID ILSA Administration Nitroglycerin 0.4 mg 05/05/21 11:17 Nitroglycerin 0.4 Mg Tab SL Q5 MIN PRN X3 PRN Nystatin 0 gm 05/03/21 14:00 05/10/21 19:57 Nystatin Powder 60 Gm Jar TP 1 applic TID ILSA Administration Oxycodone HCl 5 mg 05/09/21 08:46 05/10/21 21:46 Oxycodone 5 Mg Tab PO 5 mg Q4H PRN PRN Administration Pantoprazole Sodium 40 mg 05/04/21 07:30 05/10/21 08:06 Pantoprazole 40 Mg Tabcr PO 40 mg DAILY@0730 ILSA Administration Pt's Own Nintedanib 1 each 05/05/21 08:30 05/10/21 08:07 [Ofev] 100 Mg PO 1 each Capsule DAILY ILSA Administration Polyethylene Glycol 17 gm 05/07/21 10:48 05/10/21 17:36 Polyethylene Glycol 3350 17 Gm Packet PO 17 gm DAILY PRN PRN Administration Constipation Psyllium Hydrophilic Mucilloid 1 each 05/03/21 20:00 05/10/21 19:58 Psyllium Pkt PO Not Given BID ILSA Sennosides 1 tab 05/03/21 22:00 05/10/21 21:46 Senna Tab PO 1 tab HS ILSA Administration Sodium Biphosphate/Sodium Phosphate 133 ml 05/10/21 18:31 05/10/21 19:26 Na Phosphate Enema 133 Ml Btl MD 1 btl .EVERY 3 DAYS PRN PRN Administration Sodium Chloride 0 ml 05/02/21 21:40 05/08/21 22:14 Normal Saline Flush 10 Ml Syr IVP 10 ml PRN PRN Administration Allergies aspirin Allergy (Unknown, Verified 05/02/21 16:46) HIVES, flip out diclofenac Allergy (Unknown, Verified 05/02/21 16:46) RASH latex Allergy (Unknown, Verified 05/02/21 16:46) SKIN BREAKDOWN NSAIDS (Non-Steroidal Anti-Inflamma Allergy (Unknown, Verified 05/02/21 16:46) HIVES, VOMITING morphine Adverse Reaction (Unknown, Verified 05/02/21 16:46) VOMITING Labs Result Diagrams: 05/09/21 06:10 05/09/21 06:10 Labs: Laboratory Tests Range/Units 05/02/21 05/02/21 05/02/21 16:40 16:40 16:40 WBC (4.4-10.8) 10^3/uL 13.46 H RBC (3.93-5.22) 10^6/uL 4.38 Hgb (11.2-15.7) g/dL 13.1 Hct (36.0-46.0) % 41.0 MCV (80-95) fL 93.6 MCH (27.0-33.0) pg 29.9 MCHC (32.0-36.0) % 32.0 RDW (11.7-14.6) % 14.2 Plt Count (130-400) 10^3/uL 358 MPV (8.0-11.0) fL 9.5 Reticulocyte % (Auto) (0.5-2.4) % Immature Gran % 0.4 Neutrophils % 73.6 Lymphocytes % 18.5 Monocytes % 6.7 Eosinophils % 0.4 Basophils % 0.4 Nucleated RBC % % 0 Absolute Neutrophils (1.2-6.7) 10^3/uL 9.91 H Absolute Lymphocytes (1.2-3.4) 10^3/uL 2.49 Absolute Monocytes (0.1-0.8) 10^3/uL 0.90 H Absolute Eosinophils (0.0-0.7) 10^3/uL 0.05 Absolute Basophils (0.0-0.2) 10^3/uL 0.05 PT (9.3-11.0) sec INR (0.9-1.1) APTT (21.0-27.5) sec VBG Lactate (0.6-1.4) mmol/L Sodium (136-145) mmol/L 144 Potassium (3.5-5.1) mmol/L 3.6 Chloride (98-107) mmol/L 103 Carbon Dioxide (21.0-32.0) mmol/L 28.6 Anion Gap (3-11) mmol/L 12.4 H BUN (7-18) mg/dL 29 H Creatinine (0.55-1.02) mg/dL 1.5 H Estimated GFR/1.73 m2 (mL/min/1.73m2) 34.43 Glucose (74-106) mg/dL 100 Hemoglobin A1c (<5.7) % Calcium (8.5-10.1) mg/dL 9.7 Magnesium (1.8-2.4) mg/dL 2.2 Iron (50-170) ug/dL TIBC (250-450) ug/dL Transferrin % Sat (15-50) % Ferritin (8-252) ng/mL Total Bilirubin (0.2-1.0) mg/dL 1.0 AST (15-37) U/L 9 L ALT (14-59) U/L 14 Alkaline Phosphatase (46-116) U/L 88 Troponin I (<0.06) ng/mL < 0.05 NT-Pro-B Natriuret Pep (<300) pg/mL Total Protein (6.4-8.2) g/dL 8.1 Albumin (3.4-5.0) g/dL 4.1 Urine Color (Yellow) Urine Clarity (Clear) Urine pH (5-8) Ur Specific [place] (1.005-1.025) Urine Protein (Negative) mg/dL Urine Ketones (Negative) mg/dL Urine Blood (Negative) Urine Nitrite (Negative) Urine Bilirubin (Negative) Urine Urobilinogen (Up TO 0.2) EU/dL Ur Leukocyte Esterase (Negative) Urine Glucose (Negative) mg/dL COVID-19 Source SARS-CoV-2 (PCR) (Negative) Range/Units 05/02/21 05/02/21 05/03/21 17:33 20:20 06:05 WBC (4.4-10.8) 10^3/uL RBC (3.93-5.22) 10^6/uL Hgb (11.2-15.7) g/dL Hct (36.0-46.0) % MCV (80-95) fL MCH (27.0-33.0) pg MCHC (32.0-36.0) % RDW (11.7-14.6) % Plt Count (130-400) 10^3/uL MPV (8.0-11.0) fL Reticulocyte % (Auto) (0.5-2.4) % Immature Gran % Neutrophils % Lymphocytes % Monocytes % Eosinophils % Basophils % Nucleated RBC % % Absolute Neutrophils (1.2-6.7) 10^3/uL Absolute Lymphocytes (1.2-3.4) 10^3/uL Absolute Monocytes (0.1-0.8) 10^3/uL Absolute Eosinophils (0.0-0.7) 10^3/uL Absolute Basophils (0.0-0.2) 10^3/uL PT (9.3-11.0) sec INR (0.9-1.1) APTT (21.0-27.5) sec VBG Lactate (0.6-1.4) mmol/L Sodium (136-145) mmol/L Potassium (3.5-5.1) mmol/L Chloride (98-107) mmol/L Carbon Dioxide (21.0-32.0) mmol/L Anion Gap (3-11) mmol/L BUN (7-18) mg/dL Creatinine (0.55-1.02) mg/dL Estimated GFR/1.73 m2 (mL/min/1.73m2) Glucose (74-106) mg/dL Hemoglobin A1c (<5.7) % 9.2 H Calcium (8.5-10.1) mg/dL Magnesium (1.8-2.4) mg/dL Iron (50-170) ug/dL TIBC (250-450) ug/dL Transferrin % Sat (15-50) % Ferritin (8-252) ng/mL Total Bilirubin (0.2-1.0) mg/dL AST (15-37) U/L ALT (14-59) U/L Alkaline Phosphatase (46-116) U/L Troponin I (<0.06) ng/mL NT-Pro-B Natriuret Pep (<300) pg/mL Total Protein (6.4-8.2) g/dL Albumin (3.4-5.0) g/dL Urine Color (Yellow) Yellow Urine Clarity (Clear) Clear Urine pH (5-8) 5.5 Ur Specific [place] (1.005-1.025) 1.020 Urine Protein (Negative) mg/dL Negative Urine Ketones (Negative) mg/dL Negative Urine Blood (Negative) Negative Urine Nitrite (Negative) Negative Urine Bilirubin (Negative) Negative Urine Urobilinogen (Up TO 0.2) EU/dL 0.2 Ur Leukocyte Esterase (Negative) Negative Urine Glucose (Negative) mg/dL Negative COVID-19 Source Nasal/Nares SARS-CoV-2 (PCR) (Negative) Negative Range/Units 05/03/21 05/03/21 05/04/21 06:05 06:05 06:45 WBC (4.4-10.8) 10^3/uL 10.18 11.06 H RBC (3.93-5.22) 10^6/uL 3.80 L 3.62 L Hgb (11.2-15.7) g/dL 11.6 10.8 L Hct (36.0-46.0) % 35.7 L 34.6 L MCV (80-95) fL 93.9 95.6 H MCH (27.0-33.0) pg 30.5 29.8 MCHC (32.0-36.0) % 32.5 31.2 L RDW (11.7-14.6) % 14.2 13.9 Plt Count (130-400) 10^3/uL 292 271 MPV (8.0-11.0) fL 10.0 9.6 Reticulocyte % (Auto) (0.5-2.4) % Immature Gran % 0.3 0.4 Neutrophils % 63.5 68.8 Lymphocytes % 25.5 20.6 Monocytes % 9.4 8.7 Eosinophils % 1.0 1.1 Basophils % 0.3 0.4 Nucleated RBC % % 0 0 Absolute Neutrophils (1.2-6.7) 10^3/uL 6.46 7.61 H Absolute Lymphocytes (1.2-3.4) 10^3/uL 2.60 2.28 Absolute Monocytes (0.1-0.8) 10^3/uL 0.96 H 0.96 H Absolute Eosinophils (0.0-0.7) 10^3/uL 0.10 0.12 Absolute Basophils (0.0-0.2) 10^3/uL 0.03 0.04 PT (9.3-11.0) sec INR (0.9-1.1) APTT (21.0-27.5) sec VBG Lactate (0.6-1.4) mmol/L Sodium (136-145) mmol/L 144 Potassium (3.5-5.1) mmol/L 4.0 Chloride (98-107) mmol/L 104 Carbon Dioxide (21.0-32.0) mmol/L 27.8 Anion Gap (3-11) mmol/L 12.2 H BUN (7-18) mg/dL 31 H Creatinine (0.55-1.02) mg/dL 1.4 H Estimated GFR/1.73 m2 (mL/min/1.73m2) 37.28 Glucose (74-106) mg/dL 86 Hemoglobin A1c (<5.7) % Calcium (8.5-10.1) mg/dL 8.9 Magnesium (1.8-2.4) mg/dL Iron (50-170) ug/dL TIBC (250-450) ug/dL Transferrin % Sat (15-50) % Ferritin (8-252) ng/mL Total Bilirubin (0.2-1.0) mg/dL AST (15-37) U/L ALT (14-59) U/L Alkaline Phosphatase (46-116) U/L Troponin I (<0.06) ng/mL NT-Pro-B Natriuret Pep (<300) pg/mL Total Protein (6.4-8.2) g/dL Albumin (3.4-5.0) g/dL Urine Color (Yellow) Urine Clarity (Clear) Urine pH (5-8) Ur Specific [place] (1.005-1.025) Urine Protein (Negative) mg/dL Urine Ketones (Negative) mg/dL Urine Blood (Negative) Urine Nitrite (Negative) Urine Bilirubin (Negative) Urine Urobilinogen (Up TO 0.2) EU/dL Ur Leukocyte Esterase (Negative) Urine Glucose (Negative) mg/dL COVID-19 Source SARS-CoV-2 (PCR) (Negative) Range/Units 05/04/21 05/05/21 05/05/21 06:45 09:45 12:15 WBC (4.4-10.8) 10^3/uL RBC (3.93-5.22) 10^6/uL Hgb (11.2-15.7) g/dL Hct (36.0-46.0) % MCV (80-95) fL MCH (27.0-33.0) pg MCHC (32.0-36.0) % RDW (11.7-14.6) % Plt Count (130-400) 10^3/uL MPV (8.0-11.0) fL Reticulocyte % (Auto) (0.5-2.4) % Immature Gran % Neutrophils % Lymphocytes % Monocytes % Eosinophils % Basophils % Nucleated RBC % % Absolute Neutrophils (1.2-6.7) 10^3/uL Absolute Lymphocytes (1.2-3.4) 10^3/uL Absolute Monocytes (0.1-0.8) 10^3/uL Absolute Eosinophils (0.0-0.7) 10^3/uL Absolute Basophils (0.0-0.2) 10^3/uL PT (9.3-11.0) sec INR (0.9-1.1) APTT (21.0-27.5) sec VBG Lactate (0.6-1.4) mmol/L Sodium (136-145) mmol/L 140 Potassium (3.5-5.1) mmol/L 4.4 Chloride (98-107) mmol/L 105 Carbon Dioxide (21.0-32.0) mmol/L 25.2 Anion Gap (3-11) mmol/L 9.8 BUN (7-18) mg/dL 24 H Creatinine (0.55-1.02) mg/dL 1.3 H Estimated GFR/1.73 m2 (mL/min/1.73m2) 40.61 Glucose (74-106) mg/dL 134 H Hemoglobin A1c (<5.7) % Calcium (8.5-10.1) mg/dL 8.7 Magnesium (1.8-2.4) mg/dL Iron (50-170) ug/dL TIBC (250-450) ug/dL Transferrin % Sat (15-50) % Ferritin (8-252) ng/mL Total Bilirubin (0.2-1.0) mg/dL AST (15-37) U/L ALT (14-59) U/L Alkaline Phosphatase (46-116) U/L Troponin I (<0.06) ng/mL 0.09 H* 0.11 H* NT-Pro-B Natriuret Pep (<300) pg/mL 98756 H Total Protein (6.4-8.2) g/dL Albumin (3.4-5.0) g/dL Urine Color (Yellow) Urine Clarity (Clear) Urine pH (5-8) Ur Specific [place] (1.005-1.025) Urine Protein (Negative) mg/dL Urine Ketones (Negative) mg/dL Urine Blood (Negative) Urine Nitrite (Negative) Urine Bilirubin (Negative) Urine Urobilinogen (Up TO 0.2) EU/dL Ur Leukocyte Esterase (Negative) Urine Glucose (Negative) mg/dL COVID-19 Source SARS-CoV-2 (PCR) (Negative) Range/Units 05/05/21 05/05/21 05/05/21 12:15 14:43 17:50 WBC (4.4-10.8) 10^3/uL RBC (3.93-5.22) 10^6/uL Hgb (11.2-15.7) g/dL Hct (36.0-46.0) % MCV (80-95) fL MCH (27.0-33.0) pg MCHC (32.0-36.0) % RDW (11.7-14.6) % Plt Count (130-400) 10^3/uL MPV (8.0-11.0) fL Reticulocyte % (Auto) (0.5-2.4) % Immature Gran % Neutrophils % Lymphocytes % Monocytes % Eosinophils % Basophils % Nucleated RBC % % Absolute Neutrophils (1.2-6.7) 10^3/uL Absolute Lymphocytes (1.2-3.4) 10^3/uL Absolute Monocytes (0.1-0.8) 10^3/uL Absolute Eosinophils (0.0-0.7) 10^3/uL Absolute Basophils (0.0-0.2) 10^3/uL PT (9.3-11.0) sec 9.9 INR (0.9-1.1) 1.0 APTT (21.0-27.5) sec 24.6 43.0 H D VBG Lactate (0.6-1.4) mmol/L Sodium (136-145) mmol/L Potassium (3.5-5.1) mmol/L Chloride (98-107) mmol/L Carbon Dioxide (21.0-32.0) mmol/L Anion Gap (3-11) mmol/L BUN (7-18) mg/dL Creatinine (0.55-1.02) mg/dL Estimated GFR/1.73 m2 (mL/min/1.73m2) Glucose (74-106) mg/dL Hemoglobin A1c (<5.7) % Calcium (8.5-10.1) mg/dL Magnesium (1.8-2.4) mg/dL Iron (50-170) ug/dL TIBC (250-450) ug/dL Transferrin % Sat (15-50) % Ferritin (8-252) ng/mL Total Bilirubin (0.2-1.0) mg/dL AST (15-37) U/L ALT (14-59) U/L Alkaline Phosphatase (46-116) U/L Troponin I (<0.06) ng/mL 0.11 H* NT-Pro-B Natriuret Pep (<300) pg/mL Total Protein (6.4-8.2) g/dL Albumin (3.4-5.0) g/dL Urine Color (Yellow) Urine Clarity (Clear) Urine pH (5-8) Ur Specific [place] (1.005-1.025) Urine Protein (Negative) mg/dL Urine Ketones (Negative) mg/dL Urine Blood (Negative) Urine Nitrite (Negative) Urine Bilirubin (Negative) Urine Urobilinogen (Up TO 0.2) EU/dL Ur Leukocyte Esterase (Negative) Urine Glucose (Negative) mg/dL COVID-19 Source SARS-CoV-2 (PCR) (Negative) Range/Units 05/05/21 05/05/21 05/05/21 17:50 17:50 17:50 WBC (4.4-10.8) 10^3/uL RBC (3.93-5.22) 10^6/uL Hgb (11.2-15.7) g/dL 9.3 L Hct (36.0-46.0) % 29.3 L MCV (80-95) fL MCH (27.0-33.0) pg MCHC (32.0-36.0) % RDW (11.7-14.6) % Plt Count (130-400) 10^3/uL MPV (8.0-11.0) fL Reticulocyte % (Auto) (0.5-2.4) % Immature Gran % Neutrophils % Lymphocytes % Monocytes % Eosinophils % Basophils % Nucleated RBC % % Absolute Neutrophils (1.2-6.7) 10^3/uL Absolute Lymphocytes (1.2-3.4) 10^3/uL Absolute Monocytes (0.1-0.8) 10^3/uL Absolute Eosinophils (0.0-0.7) 10^3/uL Absolute Basophils (0.0-0.2) 10^3/uL PT (9.3-11.0) sec INR (0.9-1.1) APTT (21.0-27.5) sec VBG Lactate (0.6-1.4) mmol/L Sodium (136-145) mmol/L 138 Potassium (3.5-5.1) mmol/L 4.3 Chloride (98-107) mmol/L 104 Carbon Dioxide (21.0-32.0) mmol/L 25.7 Anion Gap (3-11) mmol/L 8.3 BUN (7-18) mg/dL 25 H Creatinine (0.55-1.02) mg/dL 1.2 H Estimated GFR/1.73 m2 (mL/min/1.73m2) 44.54 Glucose (74-106) mg/dL 211 H D Hemoglobin A1c (<5.7) % Calcium (8.5-10.1) mg/dL 8.6 Magnesium (1.8-2.4) mg/dL Iron (50-170) ug/dL TIBC (250-450) ug/dL Transferrin % Sat (15-50) % Ferritin (8-252) ng/mL Total Bilirubin (0.2-1.0) mg/dL AST (15-37) U/L ALT (14-59) U/L Alkaline Phosphatase (46-116) U/L Troponin I (<0.06) ng/mL 0.10 H* NT-Pro-B Natriuret Pep (<300) pg/mL Total Protein (6.4-8.2) g/dL Albumin (3.4-5.0) g/dL Urine Color (Yellow) Urine Clarity (Clear) Urine pH (5-8) Ur Specific [place] (1.005-1.025) Urine Protein (Negative) mg/dL Urine Ketones (Negative) mg/dL Urine Blood (Negative) Urine Nitrite (Negative) Urine Bilirubin (Negative) Urine Urobilinogen (Up TO 0.2) EU/dL Ur Leukocyte Esterase (Negative) Urine Glucose (Negative) mg/dL COVID-19 Source SARS-CoV-2 (PCR) (Negative) Range/Units 05/05/21 05/06/21 05/06/21 17:50 06:00 06:00 WBC (4.4-10.8) 10^3/uL 10.03 RBC (3.93-5.22) 10^6/uL 3.26 L Hgb (11.2-15.7) g/dL 9.7 L Hct (36.0-46.0) % 30.7 L MCV (80-95) fL 94.2 MCH (27.0-33.0) pg 29.8 MCHC (32.0-36.0) % 31.6 L RDW (11.7-14.6) % 13.2 Plt Count (130-400) 10^3/uL 313 MPV (8.0-11.0) fL 10.1 Reticulocyte % (Auto) (0.5-2.4) % Immature Gran % 0.4 Neutrophils % 72.4 Lymphocytes % 16.3 Monocytes % 7.0 Eosinophils % 3.4 Basophils % 0.5 Nucleated RBC % % 0 Absolute Neutrophils (1.2-6.7) 10^3/uL 7.27 H Absolute Lymphocytes (1.2-3.4) 10^3/uL 1.63 Absolute Monocytes (0.1-0.8) 10^3/uL 0.70 Absolute Eosinophils (0.0-0.7) 10^3/uL 0.34 Absolute Basophils (0.0-0.2) 10^3/uL 0.05 PT (9.3-11.0) sec INR (0.9-1.1) APTT (21.0-27.5) sec VBG Lactate (0.6-1.4) mmol/L 1.2 Sodium (136-145) mmol/L 138 Potassium (3.5-5.1) mmol/L 3.8 Chloride (98-107) mmol/L 103 Carbon Dioxide (21.0-32.0) mmol/L 28.9 Anion Gap (3-11) mmol/L 6.1 BUN (7-18) mg/dL 25 H Creatinine (0.55-1.02) mg/dL 1.2 H Estimated GFR/1.73 m2 (mL/min/1.73m2) 44.54 Glucose (74-106) mg/dL 281 H Hemoglobin A1c (<5.7) % Calcium (8.5-10.1) mg/dL 8.5 Magnesium (1.8-2.4) mg/dL 1.9 Iron (50-170) ug/dL TIBC (250-450) ug/dL Transferrin % Sat (15-50) % Ferritin (8-252) ng/mL 99 Total Bilirubin (0.2-1.0) mg/dL 0.6 AST (15-37) U/L 9 L ALT (14-59) U/L 12 L Alkaline Phosphatase (46-116) U/L 73 Troponin I (<0.06) ng/mL 0.05 NT-Pro-B Natriuret Pep (<300) pg/mL 7652 H Total Protein (6.4-8.2) g/dL 6.2 L Albumin (3.4-5.0) g/dL 2.5 L Urine Color (Yellow) Urine Clarity (Clear) Urine pH (5-8) Ur Specific [place] (1.005-1.025) Urine Protein (Negative) mg/dL Urine Ketones (Negative) mg/dL Urine Blood (Negative) Urine Nitrite (Negative) Urine Bilirubin (Negative) Urine Urobilinogen (Up TO 0.2) EU/dL Ur Leukocyte Esterase (Negative) Urine Glucose (Negative) mg/dL COVID-19 Source SARS-CoV-2 (PCR) (Negative) Range/Units 05/06/21 05/06/21 05/06/21 06:00 06:00 10:15 WBC (4.4-10.8) 10^3/uL RBC (3.93-5.22) 10^6/uL Hgb (11.2-15.7) g/dL Hct (36.0-46.0) % MCV (80-95) fL MCH (27.0-33.0) pg MCHC (32.0-36.0) % RDW (11.7-14.6) % Plt Count (130-400) 10^3/uL MPV (8.0-11.0) fL Reticulocyte % (Auto) (0.5-2.4) % 2.3 Immature Gran % Neutrophils % Lymphocytes % Monocytes % Eosinophils % Basophils % Nucleated RBC % % Absolute Neutrophils (1.2-6.7) 10^3/uL Absolute Lymphocytes (1.2-3.4) 10^3/uL Absolute Monocytes (0.1-0.8) 10^3/uL Absolute Eosinophils (0.0-0.7) 10^3/uL Absolute Basophils (0.0-0.2) 10^3/uL PT (9.3-11.0) sec INR (0.9-1.1) APTT (21.0-27.5) sec 36.0 H VBG Lactate (0.6-1.4) mmol/L Sodium (136-145) mmol/L Potassium (3.5-5.1) mmol/L Chloride (98-107) mmol/L Carbon Dioxide (21.0-32.0) mmol/L Anion Gap (3-11) mmol/L BUN (7-18) mg/dL Creatinine (0.55-1.02) mg/dL Estimated GFR/1.73 m2 (mL/min/1.73m2) Glucose (74-106) mg/dL Hemoglobin A1c (<5.7) % Calcium (8.5-10.1) mg/dL Magnesium (1.8-2.4) mg/dL Iron (50-170) ug/dL 24 L TIBC (250-450) ug/dL 272 Transferrin % Sat (15-50) % 9 L Ferritin (8-252) ng/mL Total Bilirubin (0.2-1.0) mg/dL AST (15-37) U/L ALT (14-59) U/L Alkaline Phosphatase (46-116) U/L Troponin I (<0.06) ng/mL NT-Pro-B Natriuret Pep (<300) pg/mL Total Protein (6.4-8.2) g/dL Albumin (3.4-5.0) g/dL Urine Color (Yellow) Urine Clarity (Clear) Urine pH (5-8) Ur Specific [place] (1.005-1.025) Urine Protein (Negative) mg/dL Urine Ketones (Negative) mg/dL Urine Blood (Negative) Urine Nitrite (Negative) Urine Bilirubin (Negative) Urine Urobilinogen (Up TO 0.2) EU/dL Ur Leukocyte Esterase (Negative) Urine Glucose (Negative) mg/dL COVID-19 Source SARS-CoV-2 (PCR) (Negative) Range/Units 05/06/21 05/07/21 05/07/21 17:22 06:15 06:15 WBC (4.4-10.8) 10^3/uL RBC (3.93-5.22) 10^6/uL Hgb (11.2-15.7) g/dL Hct (36.0-46.0) % MCV (80-95) fL MCH (27.0-33.0) pg MCHC (32.0-36.0) % RDW (11.7-14.6) % Plt Count (130-400) 10^3/uL MPV (8.0-11.0) fL Reticulocyte % (Auto) (0.5-2.4) % Immature Gran % Neutrophils % Lymphocytes % Monocytes % Eosinophils % Basophils % Nucleated RBC % % Absolute Neutrophils (1.2-6.7) 10^3/uL Absolute Lymphocytes (1.2-3.4) 10^3/uL Absolute Monocytes (0.1-0.8) 10^3/uL Absolute Eosinophils (0.0-0.7) 10^3/uL Absolute Basophils (0.0-0.2) 10^3/uL PT (9.3-11.0) sec INR (0.9-1.1) APTT (21.0-27.5) sec 46.6 H D 44.6 H VBG Lactate (0.6-1.4) mmol/L Sodium (136-145) mmol/L 141 Potassium (3.5-5.1) mmol/L 3.5 Chloride (98-107) mmol/L 102 Carbon Dioxide (21.0-32.0) mmol/L 31.6 Anion Gap (3-11) mmol/L 7.4 BUN (7-18) mg/dL 29 H Creatinine (0.55-1.02) mg/dL 1.2 H Estimated GFR/1.73 m2 (mL/min/1.73m2) 44.54 Glucose (74-106) mg/dL 149 H D Hemoglobin A1c (<5.7) % Calcium (8.5-10.1) mg/dL 9.2 Magnesium (1.8-2.4) mg/dL Iron (50-170) ug/dL TIBC (250-450) ug/dL Transferrin % Sat (15-50) % Ferritin (8-252) ng/mL Total Bilirubin (0.2-1.0) mg/dL AST (15-37) U/L ALT (14-59) U/L Alkaline Phosphatase (46-116) U/L Troponin I (<0.06) ng/mL NT-Pro-B Natriuret Pep (<300) pg/mL 2655 H Total Protein (6.4-8.2) g/dL Albumin (3.4-5.0) g/dL Urine Color (Yellow) Urine Clarity (Clear) Urine pH (5-8) Ur Specific [place] (1.005-1.025) Urine Protein (Negative) mg/dL Urine Ketones (Negative) mg/dL Urine Blood (Negative) Urine Nitrite (Negative) Urine Bilirubin (Negative) Urine Urobilinogen (Up TO 0.2) EU/dL Ur Leukocyte Esterase (Negative) Urine Glucose (Negative) mg/dL COVID-19 Source SARS-CoV-2 (PCR) (Negative) Range/Units 05/08/21 05/09/21 05/09/21 06:30 06:10 06:10 WBC (4.4-10.8) 10^3/uL 9.14 RBC (3.93-5.22) 10^6/uL 3.45 L Hgb (11.2-15.7) g/dL 10.3 L Hct (36.0-46.0) % 32.1 L MCV (80-95) fL 93.0 MCH (27.0-33.0) pg 29.9 MCHC (32.0-36.0) % 32.1 RDW (11.7-14.6) % 13.4 Plt Count (130-400) 10^3/uL 349 MPV (8.0-11.0) fL 9.9 Reticulocyte % (Auto) (0.5-2.4) % Immature Gran % 0.3 Neutrophils % 70.4 Lymphocytes % 18.6 Monocytes % 6.7 Eosinophils % 3.6 Basophils % 0.4 Nucleated RBC % % 0 Absolute Neutrophils (1.2-6.7) 10^3/uL 6.43 Absolute Lymphocytes (1.2-3.4) 10^3/uL 1.70 Absolute Monocytes (0.1-0.8) 10^3/uL 0.61 Absolute Eosinophils (0.0-0.7) 10^3/uL 0.33 Absolute Basophils (0.0-0.2) 10^3/uL 0.04 PT (9.3-11.0) sec INR (0.9-1.1) APTT (21.0-27.5) sec VBG Lactate (0.6-1.4) mmol/L Sodium (136-145) mmol/L 142 142 Potassium (3.5-5.1) mmol/L 4.3 D 3.6 Chloride (98-107) mmol/L 103 104 Carbon Dioxide (21.0-32.0) mmol/L 32.0 31.7 Anion Gap (3-11) mmol/L 7.0 6.3 BUN (7-18) mg/dL 33 H 21 H D Creatinine (0.55-1.02) mg/dL 1.3 H 0.9 Estimated GFR/1.73 m2 (mL/min/1.73m2) 40.61 >= 60.00 Glucose (74-106) mg/dL 254 H D 92 D Hemoglobin A1c (<5.7) % Calcium (8.5-10.1) mg/dL 9.0 9.0 Magnesium (1.8-2.4) mg/dL Iron (50-170) ug/dL TIBC (250-450) ug/dL Transferrin % Sat (15-50) % Ferritin (8-252) ng/mL Total Bilirubin (0.2-1.0) mg/dL AST (15-37) U/L ALT (14-59) U/L Alkaline Phosphatase (46-116) U/L Troponin I (<0.06) ng/mL NT-Pro-B Natriuret Pep (<300) pg/mL 805 H Total Protein (6.4-8.2) g/dL Albumin (3.4-5.0) g/dL Urine Color (Yellow) Urine Clarity (Clear) Urine pH (5-8) Ur Specific [place] (1.005-1.025) Urine Protein (Negative) mg/dL Urine Ketones (Negative) mg/dL Urine Blood (Negative) Urine Nitrite (Negative) Urine Bilirubin (Negative) Urine Urobilinogen (Up TO 0.2) EU/dL Ur Leukocyte Esterase (Negative) Urine Glucose (Negative) mg/dL COVID-19 Source SARS-CoV-2 (PCR) (Negative) Assessment and Plan Assessment and plan (1) Interstitial lung disease: Status: Acute Assessment and plan: She holds the diagnosis of unspecified pulmonary fibrosis even after surgical lung biopsy. Based on her imaging this is not typical UIP however her imaging and spirometry as well as symptoms have progressively worsened since her diagnosis which led to the initiation of antifibrotic therapy (Ofev). She is on a lower dose due to side effects of diarrhea. We will be repeating some of the autoimmune labs that were previously done to ensure there is not an autoimmune component, although she has seen rheumatology in the past who is felt that she does not carry a rheumatologic diagnosis aside from osteoarthritis. - continue OFEV (home med) - follow up CARLOS, RF - recommend outpatient overnight oximetry (I have ordered this) - she has an appointment with me in May (2) Chronic pulmonary aspiration: Status: Acute Assessment and plan: It seems as though she has been struggling with chronic aspiration and this may even be a factor that has resulted in her worsening lung function as well as imaging. It may be related to her acid reflux as well as her hiatal hernia however continued aspiration events will most certainly worsen her pulmonary fibrosis and may ultimately lead to more significant infectious sequelae such as complicated pneumonias with empyema or pulmonary abscess. She has already been admitted several times for pulmonary infections. - recommend ARRANGING FUNERAL DIRECTOR consultation - ramp bed while sleeping - foam ramp and lift head of bed - recommend increasing pantoprazole to 40mg bid from daily - no eating 2-3 hours prior to going to bed - follow up immunoglobulins Qualifiers: Encounter type: subsequent encounter Qualified Code(s): T17.908D - Unspecified foreign body in respiratory tract, part unspecified causing other injury, subsequent encounter (3) Hiatal hernia: Status: Chronic Assessment and plan: Given that her hiatal hernia is likely contributing t o the degree of reflux and possibly aspiration this problem should be entertained to be fixed. Granted she is not the best surgical candidate however she should have consultation with a general surgeon to discuss the possibility of performing a Marian fundoplication in order to prevent further worsening of her pulmonary fibrosis. -recommend outpatient surgery referral for [facility] to sign off. Please reach out if any further questions or concerns.
[2021-05-11] MEDS: Acetaminophen 325 MG TAB 650 MG PO ×2 (08:08→12:00)
[2021-05-11] MEDS: Midodrine 2.5 MG TAB 10 MG PO (08:09)
[2021-05-11] MEDS: Docusate Sodium 100 MG CAP PO (08:10)
[2021-05-11] MEDS: Metoclopramide 10 MG TAB 5 MG PO ×2 (08:10→12:00)
[2021-05-11] MEDS: Pantoprazole 40 MG TABCR PO (08:11)
[2021-05-11] MEDS: Clopidogrel 75 MG TAB PO (08:11)
[2021-05-11] MEDS: Furosemide 40 MG TAB PO (08:11)
[2021-05-11] MEDS: Psyllium PKT 1 EACH PO (08:12)
[2021-05-11 08:25] VITALS: BP 97/58; PULSE 72; RESP 16; TEMP 36.6; O2SAT 98
[2021-05-11] MEDS: Insulin Aspart 300 UNITS/3 ML PEN SC ×3 (08:57→12:50)
--- NOTE | 2021-05-11 08:59 | OTTR_ITS ---
Date of service: 05/11/21 Time of Service: 08:45 Occupational Therapy Notes Occupational Therapy Inpatient Treatment Note Date: 05/11/21 PRECAUTIONS: Fall, standard, Full SUBJECTIVE: Pt was sitting in bed when OT arrived, she states that she is tired and her arm is sore at times. OBJECTIVE: PAIN:no c/o pain except in (L) UE when donning gown BATHING: sitting in bed with max (A) set up/clean up Upper Body: (I) face, (B) UE, abdomen Lower Body: NT as pt denies DRESSING: Sitting in bed Upper Extremity: Mod (A) as pt has difficulty donning her gown today over her (L) shoulder d/t pain Lower Extremity: NT GROOMING: Pt denies all oral hygiene she states that it makes her gums bleed and she is not interested in performing. Based on conversation with pt she only performs her oral hygiene as needed. ASSESSMENT/PLAN: Pt is not receptive to standing ADLs today she notes she just wants to stay in bed. Pt is able to perform her dressing and bathing but requires (A) due to the pain and limited mobility due to her fx site. OT will work to progress pt to standing ADLs although she continues to refuse. TREATMENT CODES/TIME: 90565, 15 minutes (08:45) [facility]
--- NOTE | 2021-05-11 09:58 | PDOC.CMPRO ---
- If Service Date Differs Date of service: 05/11/21 Time of Service: 09:59 Care Management Progress Note S/O: A: Elly is a 70 year old female admitted to [facility] on 05/02/21 with a humerous fracture, syncope. P: Elly continues to refuse rehab prior to returning home. She will be seen by Palliative Care to help determine her goals of care/discharge plan. Evaluations from PT/OT will also help determine her plan. She will likely be transported via private vehicle by family. She will follow up with her PCP and discharge plan of care. CM will continue to follow.
[2021-05-11] MEDS: Lidocaine 5% Patch 2 PATCH TP (10:34)
[2021-05-11] MEDS: Nystatin POWDER 60 GM JAR TP (10:41)
--- NOTE | 2021-05-11 12:05 | W.PM.DS.N ---
Date of service: 05/11/21 Time of Service: 12:06 DS: Diagnosis Discharge Diagnosis (1) Interstitial lung disease: Status: Acute (2) Chronic pulmonary aspiration: Status: Acute (3) Hiatal hernia: Status: Chronic Discharge Plan Disposition Patient Disposition: HOME W/HOME HEALTH SERVICE Condition: Stable Discharge Details Reason For Visit: Humerous Fracture, Syncope Admit Date/Time: 05/02/21 19:55 Admit Provider: Víctor Nolasco Attending Provider: Víctor Nolasco Primary Care Provider: Dharmesh Nolasco Hospital Course Hospital Course: This is a 70 year old female who presented to the emergency department after a syncopal episode at home while getting up from the toilet. she had a fall the day prior which was mechanical. she was recently discharged from the [facility] where she was receiving senior living and physical therapy following a hospitalization for DKA. at that time her hemoglobin A1C was 12.1, now improved to 9.2 with better management. Her work up in the ED showed a non-surgical fracture of the right humerus. She was admitted to hospitalist services for syncope work up. She remained on telemetry with no dysrthythmias. She was noted to be orthostatic despite fluid resuscitation and was started on midodrine with good response. Her hospital course was then complicated with an acute onset of heart failure requiring ICU transfer. She was started on aggressive diuresis and noted to have an elevated troponin. She was started on plavix and changed statin to atorvastatin. She stabilized and was transferred back to med/surg. Plan for outpatient stress testing in 4 weeks. Her blood sugars well managed on current insulin regimen. will need close monitoring and likely some adjustment outpatient. Noted to have anemia, stools negative for OB, found to be iron deficient. started on iron supplementation. received IV iron. she was evaluated by pulmonary while inpatient regarding her diagnosis of interstitial lung disease and further medication recommendations. recommendations: - continue OFEV (home med) - follow up CARLOS, RF which are pending - recommend outpatient overnight oximetry (it has been ordered) - Pulmonary appointment in May chronic aspiration recommendations: - recommend DIGESTION OPERATOR consultation - ramp bed while sleeping - foam ramp and lift head of bed - recommend increasing pantoprazole to 40mg bid from daily - no eating 2-3 hours prior to going to bed - follow up immunoglobulins hiatal hernia recommendations: -outpatient consultation for surgical intervention will be discharged to home with home health services including nursing, physical and occupational therapy and speech therapy consult. discharge discussed with Dr Weaver. Home Meds and New Rx's Prescriptions: New atorvastatin 40 mg Tablet 80 mg PO QPM Qty: 60 RF: 0 midodrine 5 mg Tablet 10 mg PO TID Qty: 60 RF: 0 clopidogrel 75 mg Tablet 75 mg PO DAILY Qty: 30 RF: 0 lidocaine 5 % Adhesive Patch,Medicated 2 patch topical Q24H Qty: 10 RF: 0 metoclopramide HCl 10 mg Tablet 5 mg PO AC Qty: 30 RF: 0 ferrous sulfate 325 mg (65 mg iron) tablet 325 mg PO DAILY Qty: 30 RF: 0 Continued (DME) Wheeled walker with seat and basket Qty: 1 RF: 0 donepezil 5 mg tablet 5 mg PO QPM RF: 0 loperamide [Anti-Diarrheal (loperamide)] 2 mg tablet 2 mg PO Q6H PRN (Reason: loose stool) Qty: 60 RF: 2 (DME) FreeStyle Kaye 2 [place] Misc See Rx Instructions .ROUTE .MEDSUPPLY Qty: 1 RF: 0 (DME) FreeStyle Kaye 2 Sensor Kit See Rx Instructions .ROUTE .MEDSUPPLY Qty: 1 RF: 11 (DME) compress.stocking,knee,reg,lrg misc See Dose Instructions .ROUTE .MEDSUPPLY Qty: 2 RF: 0 albuterol sulfate [Ventolin HFA] 8 GM HFA aerosol inhaler 2 puff Inhalation Q4H PRN Qty: 1 RF: 4 cyclobenzaprine 5 mg tablet 5 mg PO TID PRN (Reason: muscle spasm) Qty: 90 RF: 6 furosemide 40 mg tablet 40 mg PO DAILY Qty: 30 RF: 11 (DME) pen needle, diabetic [Pen Needle] 31 gauge x 5/16 needle 1 ea Miscellaneous QID Qty: 4 RF: 12 spironolactone 25 mg tablet 25 mg PO DAILY Qty: 30 RF: 11 (DME) Blood Glucose Test Strip 1 ea Miscellaneous TID Qty: 400 RF: 12 (DME) lancets 28 gauge misc 1 ea Miscellaneous TID Qty: 400 RF: 12 epinephrine [EpiPen 2-Gordon] 0.3 MG/0.3 ML auto-injector 0.3 mg IM ONCE PRNRF: 0 acetaminophen [Tylenol] 325 mg Tablet 650 mg PO Q4H PRN PRNQty: 0 RF: 0 Ofev 100 mg capsule 100 mg PO DAILY Qty: 0 RF: 0 Lantus Solostar U-100 Insulin 100 unit/mL (3 mL) Insulin Pen 46 unit SUBCUT .QHS RF: 0 escitalopram oxalate 10 mg tablet 5 mg PO .QHS RF: 0 insulin lispro [Humalog KwikPen Insulin] 100 unit/mL Insulin Pen 5 unit SUBCUT .BEFORE SUPPER RF: 0 mycophenolate mofetil 500 mg tablet 500 mg PO TID RF: 0 Changed pantoprazole 40 mg tablet,delayed release (DR/EC) 40 mg PO BID Qty: 90 RF: 3 Discontinued simvastatin 40 mg tablet 40 mg PO HS Qty: 30 RF: 11 acidophilus-pectin, citrus 25 million cell -100 mg tablet 1 tab PO BID RF: 0 Lantus Solostar U-100 Insulin 100 unit/mL (3 mL) insulin pen 54 unit subcut .AM RF: 0 insulin lispro [Humalog KwikPen Insulin] 100 unit/mL insulin pen 2 unit SC DAILY RF: 0 Breo Ellipta 200-25 mcg/dose blister with device 1 inh INHALATION DAILY RF: 0 No Action (DME) Oxygen Tank See Dose Instructions .ROUTE .MEDSUPPLY Qty: 1 RF: 0 (DME) Face mask to deliver Oxygen Qty: 2 RF: 6 (DME) Oxygen Tank See Rx Instructions .ROUTE .MEDSUPPLY Qty: 1 RF: 0 Discharge Instructions Instructions: Arm Fracture in Adults (DC) Additional Instructions: outpatient MPI stress testing around 4 weeks post discharge is planned. take all medication as prescribed, please note multiple changes. monitor blood sugars 4 times daily and record for follow up visit. continue diabetes education and monitoring outpatient. outpatient referral for overnight oximetry per pulmonology - recommend DIGESTION OPERATOR consultation - ramp bed while sleeping - foam ramp and lift head of bed - no eating 2-3 hours prior to going to bed Stand Alone Forms: Nursing Discharge Form Referrals: Dharmesh Nolasco NP [Primary Care Provider] - 05/21/21 1:00 pm () Sherrill Morelos MD [ [facility] STAFF PHYSICIAN] - (scheduled in may) Latesha Melo MD [ [facility] STAFF PHYSICIAN] - (hiatal hernia, ? Marian procedure) Yohannes Abad MD [ [facility] STAFF PHYSICIAN] - 05/25/21 2:00 pm Activity:: Activity as Tolerated Equipment/Supplies:: No Equipment Needed Diet:: Carb Counting Discharge Orders Discharge Orders: Discharge Order (Routine); Ordered 05/11/21 Ordered By: Renee De Jesus Other Ambulatory Orders: Basic Metabolic Panel (Routine) Timeframe: 20210514 Location: None Selected Ordered By: Renee De Jesus Complete Blood Count w/Diff (Routine) Timeframe: 20210514 Location: None Selected Ordered By: Renee De Jesus NM MPI rest & stress grp (Routine) Timeframe: 4 Weeks Location: None Selected Ordered By: Renee De Jesus DS: Summary Time Spent with Patient providing and/or coordinating discharge services: Greater than 30 minutes Status at Discharge Functional status at discharge: uses cane/walker Overall status at discharge: patient is progressing back to baseline Mental Status: mental status grossly normal Speech and Movement: speech and movement normal Mood: congruent mood Affect: normal affect Exam Const General: cooperative and no acute distress Resp Effort & Inspection: normal respiratory effort Auscultation: rales bilaterally at the base Cardio Rate: regular rate Rhythm: regular rhythm Heart Sounds: S1 normal and S2 normal GI Palpation: soft and nontender Auscultation: normal bowel sounds Extrem General: no pedal edema and no calf tenderness Left upper extremity: shoulder/upper arm Details: tenderness; no edema Psych Mental Status: mental status grossly normal Speech and Movement: speech and movement normal Mood: congruent mood Affect: normal affect DS: Data Vitals/I&O Vitals and I&O: Vital Signs Temperature 36.6 C 05/11/21 08:25 Temperature Source Temporal Artery Scan 05/11/21 08:25 Pulse 72 05/11/21 08:25 Pulse Rhythm Regular 05/11/21 01:35 Pulse 77 05/07/21 14:01 Respiratory Rate 16 05/11/21 08:25 Respiratory Effort Non-Labored 05/11/21 01:35 Respiratory Depth Normal 05/11/21 01:35 Respiratory Pattern Normal 05/11/21 01:35 Blood Pressure 97/58 L 05/11/21 08:25 Blood Pressure Mean 65 05/07/21 14:16 Blood Pressure Position Sitting 05/07/21 10:56 Pulse Oximetry 98 05/11/21 08:25 Oxygen Delivery Method Nasal Cannula 05/11/21 08:25 Oxygen Flow Rate 1 05/11/21 08:25 Pain Level 6 05/11/21 08:25 Comment 05/07/21 19:26 Intake & Output 05/10/21 05/11/21 05/11/21 23:59 11:59 23:59 Intake Total 240 / 600 230 / 230 Output Total 1150 / 2000 950 / 950 Balance -910 / -1400 -720 / -720 Intake: Oral 240 / 600 230 / 230 Output: Urine 1150 / 2000 950 / 950 Other: Urine Color Yellow Yellow Urine Appearance Cloudy Cloudy Sediment Sediment Stool Size Moderate Stool Characteristics Hard Brown Data Completed and Pending Labs on day of discharge: Labs from last 24 hours 05/11/21 05/11/21 07:34 07:34 IgG Pending IgG Subclass 4 Pending IgA Pending IgM Pending IgE Pending Rheumatoid Factor Pending CARLOS Titer Pending CARLOS Titer 2 Pending CARLOS Titer 3 Pending CARLOS Interpretation Pending [facility] Medical History Abdominal pain Acute gastroenteritis (03/16/18) Acute kidney injury (nontraumatic) Acute pneumonitis Anxiety (03/16/18) Asthma Asthma Back pain CHF (congestive heart failure) Chronic constipation (03/16/18) Cognitive impairment (03/16/18) Mild, w/Memory Loss Cubital tunnel syndrome (03/16/18) Depressive disorder DKA (diabetic ketoacidoses) Dyspnea (03/16/18) Edema (03/16/18) Essential hypertension (07/17/13) Gastroesophageal reflux disease without esophagitis (03/16/18) Grief brother Nov 2020 History of shingles (03/16/18) Hyperlipemia Insulin dependent diabetes mellitus Internal derangement of right knee Interstitial lung disease (03/16/18) Pulm: Jedlshashank Long-term use of high-risk medication (03/16/18) Low-level of literacy Metabolic acidosis with normal anion gap and bicarbonate losses Migraine (04/03/14) Neck pain (03/16/18) 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 History of section Ligation of fallopian tube Thoracoscopic (R)Lung Bx (02/12/18) Family History Mother , aged 81 from dementia, per Elly Diabetes Essential hypertension CHF (congestive heart failure) Heart disease CHF/heart failure Dementia Father , aged 80 Diabetes Essential hypertension CAD (coronary artery disease) Heart disease [place] Hyperlipidemia Stroke Sister , aged 54 Diabetes Personal history of malignant neoplasm Lung Asthma Lung cancer Brother , of mesithelioma aged 62 Diabetes Essential hypertension Personal history of malignant neoplasm Lung, Prostate Hyperlipidemia Asthma Mesothelioma Brother , of PE following knee surgery age 69 Pulmonary embolus with infarction Daughter No problems noted. Son No problems noted. 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[employer] Pets and animals: Yes Pets and animals: cat(s) Sexually active: No Do you think of yourself as: straight/heterosexual Current gender identity: female What is your relationship status?: How often do you talk on the phone with friends or family?: three or more times per week How often do you get together with friends or relatives?: three or more times per week How often do you attend jewish or yazidism services?: 1-3 times per year Do you belong to any clubs or organized social groups?: no Panel score (0-1 are the most socially isolated patients): 1 What type of physical activity do you participate in: none and sedentary lifestyle Duration: < 15 minutes/day Frequency: does not exercise Bibi/Pentecostal: Gnosticist Special bibi needs: No Agree to transfusion: Yes Seatbelt use: sometimes Helmet use: No Drive intox or ride w/intox personal driver: No Water heater temp set <120 deg: Yes Working smoke detector in home: Yes Fire extinguisher in home: Yes Carbon monox detector in home: Yes Do you feel safe at home: Yes Do you feel safe in your relationship?: Yes Victim of physical abuse: No Victim of emotional abuse: No Victim of sexual abuse: No Would you like helpful sources: No Additional Social history: Recently in the [facility] x 2 mos. Didn't feel she needed to be there. She reports was supposed to be a 2 week stay. She said she did all her own care. She says the staff is stretched thin. She can take care of herself at home just fine. She says her family is more worried about her than they need to be.
--- NOTE | 2021-05-11 12:39 | PT.INTREAT ---
Date of service: 05/11/21 Time of Service: 11:00 PT Notes Visit Reasons: Humerous Fracture, Syncope Inpatient Physical Therapy Treatment Note [facility] Date: 05/11/2021 PRECAUTIONS: Activity as Tolerated, NWB L UE SUBJECTIVE: Elly states that she is feeling a little better today. She hopes that she can discharge to home soon. OBJECTIVE: PAIN: Patient c/o L elbow discomfort with elbow flexion and extension with forearm in pronation BED MOBILITY/TRANSFERS Supine-sit: I Sit-stand: S Stand-sit: S GAIT Assistive Device: SPC Weight bearing: Full Assist: SBA Distance: 120' Deviation: Minimal nausea THEREX: Patient completes AAROM throughout L elbow, forearm, wrist, and hand, with minimal cueing required for proper execution. ASSESSMENT: Patient tolerated gait training without complaint, although did mention mild nausea once seated, post-gait training. PLAN: Patient to discharge to home later today, per provider, resume PT services. TREATMENT CODE/TIME: 20 minutes; 72185 (11:00)
--- NOTE | 2021-05-11 12:49 | PDOC.HHF2F_ITS ---
Home Health Certification Home Health Certification: 1. Encounter Date and Reason I certify that Elly Pina was seen by Renee De Jesus on 05/11/21 and that I had a [id number] encounter with this patient that meets the physician face to face encounter requirements. 2. Clinical Findings Supporting Skilled Need and Homebound Status I certify that home health services are medically necessary, include either intermittent intermediate and/or physical/speech therapy, and that this patient is homebound in that absences from the home require considerable and taxing effort and are infrequent or of short duration, or are attributable to the need to receive medical care. [X] (a) Attached documentation from encounter provides clinical findings supporting skilled need and homebound status (including what assistance patient requires to leave the home). The encounter with the patient was in whole, or in part, for the following medical condition, which is the primary reason for home health care: Humerous Fracture, Syncope, NSTEMI, congestive heart failure, anemia, chronic aspiration [facility]: routine nursing evaluation and monitoring. medication oversight, diabetes management, fluid volume monitoring. Physical and Occupational Therapy: routine evaluation and treatment Speech Therapy: routine evaluation and recommendations, hiatal hernia, acid reflux, chronic aspiration Homebound: patient is unable to safely leave the house unattended d/t frequent falls, generalized weakness, fractured arm. 3. Certification and Authentication I certify that I composed the above information based on my clinical judgement relating to this patient's medical condition and, if applicable, clinical fi ndings communicated to me by the NPP or inpatient physician who performed the Home Health Referral. All further orders will be obtained through Dharmesh Nolasco MD_(Community Based Physician - PCP)
[2021-05-11 12:56] VITALS: BP 115/63; PULSE 76; RESP 16; TEMP 36.3; O2SAT 95
[2021-05-11 13:22] VITALS: PULSE 83
--- NOTE | 2021-05-11 14:29 | CHAPLAIN ---
I visited with Elly shortly before she was discharged. She was excited about going home. Her grandson, who provides her care, was here to learn about how her new gluclose monitoring system works. Elly was happy about not have to do finger sticks anymore.
[2021-05-11 16:13] LABS: Rheumatoid Factor <8.6 IU/mL (<12.0)
--- NOTE | 2021-05-11 17:39 | PDOC.CMDIS ---
- If Service Date Differs Date of service: 05/11/21 Time of Service: 17:39 LACE Index Scoring Tool - Questions: Length of Stay (in days): 7 - 13 Acuity (Admit via E.D.?): Yes Comorbidities: Previous M.I., Diabetes w/o Complication, Congestive Heart Failure, Chronic Pulmonary Disease, Mild Liver/Renal Disease E.D. Visits: 7 - Answers: Total Score: 17 Risk of Readmission: High Risk Care Management Discharge Reason for Hospitalization: Humerous Fracture, syncope Discharge Plan: Elly will return home today with new RN, PT, OT. CM called and informed [facility] of her discharge today. Her grandson, Jorge Luis, will drive her home via private vehicle. Jorge Luis has arranged private caregivers using her C benefit, as well as life alert for times that she is home alone. She will have MOW through [facility], which CM coordinated with her outpatient supportive employment case manager, Jenni. She is happy to be going home. Patient/Family Education Needs: Review discharge instructions regarding activity levels and medications, disucssion of self care needs and goals of care. Services Needed at Discharge: Home Health Care Services
[2021-05-12 09:49] LABS: IgA 52 mg/dL (85-499); IgG 530 mg/dL (610-1,616); IgM 52 mg/dL (35-242)
[2021-05-12 11:56] LABS: IgE 8 IU/mL (<158)
[2021-05-12 15:19] LABS: ANA Interpretation Positive (Negative)
--- NOTE | 2021-05-13 09:13 | INDS_ITS ---
Date of service: 05/13/21 Time of Service: 09:13 PT Notes Visit Reasons: Humerous Fracture, Syncope Inpatient Physical Therapy Discharge Summary Date: 05/13/2021 Dates of Service: 05/06/2021 through 05/11/2021 This is a clinical summary of care provided for the duration of dates listed above. No charge was made in the completion of this documentation. Referring Doctor: Urmila Austin NP PT Orders: PT CONSULT: Eval/Treat. Precautions: Standard. Fall. NWB on L LE. Sling when OOB. Patient Profile/Admitting Diagnosis: Converted to ICU level of care due to NSTEMI episode on 05/06/2021 for close monitoring of cardiac status. Elly is a [id number] with congestive heart failure, COPD, and interstitial lung disease who presented to the ED on 05/02/2021 with complaints of significant pain in L UE due to a mechanical fall with diagnosis of L proximal humeral fracture. Per Dr. Abad, patient is not a good candidate for surgical intervention due to her diabetes and cardiac status. PMHX: Medical History Abdominal pain Acute gastroenteritis (03/16/18) Acute kidney injury (nontraumatic) Acute pneumonitis Anxiety (03/16/18) Asthma Asthma Back pain CHF (congestive heart failure) Chronic constipation (03/16/18) Cognitive impairment (03/16/18) Mild, w/Memory Loss Cubital tunnel syndrome (03/16/18) Depressive disorder DKA (diabetic ketoacidoses) Dyspnea (03/16/18) Edema (03/16/18) Essential hypertension (07/17/13) Gastroesophageal reflux disease without esophagitis (03/16/18) History of shingles (03/16/18) Hyperlipemia Insulin dependent diabetes mellitus Internal derangement of right knee Interstitial lung disease (03/16/18) Pulm: [place] Long-term use of high-risk medication (03/16/18) Metabolic acidosis with normal anion gap and bicarbonate losses Migraine (04/03/14) Neck pain (03/16/18) 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 History of section Ligation of fallopian tube Thoracoscopic (R)Lung Bx (02/12/18) Social History/Home Situation: Lives in an apartment with 4 steps to enter. Has good family support. Independent with single-point cane at baseline. Was discharged from this hospital with services provided from 02/21/2021 through 03/24/2021 with patient discharged home independent with SPC for up to 300 feet. Equipment Owned/DME: FWW, SPC Subjective: NT. See most recent PHARMACY PICKING TECHNICIAN notes. Objective: General Observation: NT. See most recent PHARMACY PICKING TECHNICIAN notes. Mental Status: NT. See most recent PHARMACY PICKING TECHNICIAN notes. Pain: NT. See most recent PHARMACY PICKING TECHNICIAN notes. ROM: Right Upper Extremity: Shoulder Flexion WFL. Shoulder abduction WFL. Elbow flexion WFL. Wrist flexion WFL. Functional opening and closing of hand WFL. Left Upper Extremity: Shoulder ROM not tested per orthopod ordersL. Elbow flexion WNL passive. Wrist flexion WFL. Functional opening and closing of hand WFL. All movement in L UE causes pain. Right Lower Extremity: Hip flexion WFL. Hip abduction WFL. Knee flexion WFL. Ankle dorsiflexion WFL. Ankle plantarflexion WFL. Left Lower Extremity: Hip flexion WFL. Hip abduction WFL. Knee flexion WFL. Ankle dorsiflexion WFL. Ankle plantarflexion WFL. Strength: Right Upper Extremity: Shoulder flexors 4/5. Shoulder abductors 4/5. Elbow flexors 4/5. Elbow extensors 4/5. Airplane Pilot Chief strong. Left Upper Extremity: Shoulder NT. Elbow flexors grossly 3-/5. Airplane Pilot Chief NT. Right Lower Extremity: Hip flexors 4-/5. Hip abductors 4-/5. Knee flexors 4-/5. Knee extensors 4-/5. Ankle dorsiflexors 4-/5. Ankle plantarflexors 4-/5. Left Lower Extremity:Hip flexors 4-/5. Hip abductors 4-/5. Knee flexors 4-/5. Knee extensors 4-/5. Ankle dorsiflexors 4-/5. Ankle plantarflexors 4-/5. Sensation: Intact as to pain and light pressure in bilateral upper and lower extremities. Bed Mobility/Transfers: Rolling independent Supine to sit independent Sit to supine independent Sit to stand supervision Stand to sit supervision Bed to chair supervision Chair to bed supervision Gait: Up to 120 feet with SPC with FWB in B LE, NWB in L UE with supervision. COntinues to be limited by reports of nausea and lightheadedness. Balance: Static sitting: Normal Dynamic sitting: Good Static standing: Fair Dynamic standing: Fair Assessment: Elly continues to demonstrate L UE pain from proximal humerus fracture. L shoulder muscle strenth not tested due to orthopod restriction. has good mastery of passive/AAROM of L UE. Patient will benefit from home health PT services in order to progress mobility level using least restrictive assistive ambulatory device, assess home safety, identify additional equipment needs, and establish a functional maintenance program that will increase ability of patient to remain at home. Patient continues to present with clinical signs and symptoms consistent with current/admitting diagnoses that have resulted to mobility limitations, gait instability, generalized weakness, and impairment of motor control as demonstrated by the following impairment level findings: 1. Decreased strength to L UE major muscle groups 2. NWB in L UE 3. Pain in L UE at 3-410 4. Persistent nausea and lightheadedness Impairments are continuing to contribute to the following functional limitations: 1. Increased fall risk 2. Decreased activity tolerance Goals: Goals X1 week 1. Supine-Sit Independent MET 2. Sit-Supine Independent MET 3. Sit-Stand Independent with SPC on R NOT MET 4. Stand-Sit Independent with SPC on R NOT MET 5. Bed-Chair Independent with SPC on R NOT MET 6. Chair-Bed Independent with SPC on R NOT MET 7. Gait independent with FWW 150ft with SPC on R NOT MET 8. Stairs independent with bilateral rails 4 steps with SPC on R NOT MET 9. Independent with home exercise program on R MET 10. To achieve good static and dynamic standing balance to reduce fall risk on R NOT MET DISCHARGE RECOMMENDATIONS: Patient will benefit from home health PT services in order to progress mobility level using least restrictive assistive ambulatory device, assess home safety, identify additional equipment needs, and establish a functional maintenance program that will increase ability of patient to remain at home. TREATMENT CODE/TIME: AR Thank you for the opportunity to participate in the care of this patient. Iva Roldan PT, DPT, CLT [facility] [place], [place]
== END 2021-05-11 14:30 | disposition home health service (06) | DRG 562 ==
LOC: ER 20:01 → MS 21:04 → ICU 05-05 11:55 → MS 05-07 14:40
PROVIDERS: Family Medicine; Internal Medicine; Nurse Practitioner Acute Care; Nurse Practitioner Family; Student in an Organized Health Care Education/Training Program; Admitting Provider General Practice; Emergency Provider Physician Assistant; PCP Nurse Practitioner Family; Visit Provider General Practice
DX: S42.292A Other displaced fracture of upper end of left humerus, initial encounter for closed fracture (principal); I21.A1 Myocardial infarction type 2; I50.31 Acute diastolic (congestive) heart failure; N17.9 Acute kidney failure, unspecified; J96.11 Chronic respiratory failure with hypoxia; E86.0 Dehydration; Z20.822 Contact with and (suspected) exposure to COVID-19; Z79.4 Long term (current) use of insulin; F41.9 Anxiety disorder, unspecified; G31.84 Mild cognitive impairment of uncertain or unknown etiology; F32.9 Major depressive disorder, single episode, unspecified; K21.9 Gastro-esophageal reflux disease without esophagitis; E78.5 Hyperlipidemia, unspecified; G43.909 Migraine, unspecified, not intractable, without status migrainosus; M81.0 Age-related osteoporosis without current pathological fracture; E11.42 Type 2 diabetes mellitus with diabetic polyneuropathy; E11.65 Type 2 diabetes mellitus with hyperglycemia; N39.498 Other specified urinary incontinence; W19.XXXA Unspecified fall, initial encounter; J43.1 Panlobular emphysema; F43.21 Adjustment disorder with depressed mood; I95.1 Orthostatic hypotension; I11.0 Hypertensive heart disease with heart failure; D50.9 Iron deficiency anemia, unspecified; I27.20 Pulmonary hypertension, unspecified; J84.10 Pulmonary fibrosis, unspecified; K44.9 Diaphragmatic hernia without obstruction or gangrene; T17.908A Unspecified foreign body in respiratory tract, part unspecified causing other injury, initial encounter; J45.30 Mild persistent asthma, uncomplicated
CPT/HCPCS: 36556; 36415; 36416; 36592; 51701; 71045; 80048; 80053; 82784; 82787; 82962; 85027; 87635; 93005; 94618; 94640; 96365; 96375; 97110; 97162; 97166; 97530; 97535; 99222; 99285; 70450; 71046; 72125; 73030; 73060; 73200; 81003; 82728; 82785; 83036; 83540; 83550; 83605; 83735; 83880; 84484; 85014; 85018; 85025; 85045; 85610; 85730; 86038; 86431; 93010; 93306; 94667; 94762; 99232; 99233; 99239; 99291; J0131; J1650; J1756; J1940; J2405; J3010; J3490; J7517

== ENCOUNTER 2021-05-14 22:00 | Outpatient (REF) | payer OTHER, MEDICAID, SELFPAY ==
[2021-05-14 16:00] LABS: HCT 33.8 % (36.0-46.0); HGB 10.4 g/dL (11.2-15.7); Lymphocytes % 17.8; MCH 29.9 pg (27.0-33.0); MCHC 30.8 % (32.0-36.0); MCV 97.1 fL (80-95); Monocytes % 4.4; Neutrophils % 72.9; Platelet Count 491 10^3/uL (130-400); RBC 3.48 10^6/uL (3.93-5.22); RDW 14.5 % (11.7-14.6); RDW-SD 51.3 fL; WBC 10.41 10^3/uL (4.4-10.8)
[2021-05-14 16:01] LABS: Abs Immature Grans 0.06 10^3/uL (0.0-0.06); Absolute Basophil Count 0.05 10^3/uL (0.0-0.2); Absolute Lymphocyte Count 1.85 10^3/uL (1.2-3.4); Absolute Monocyte Count 0.46 10^3/uL (0.1-0.8); Absolute Neutrophil Count 7.59 10^3/uL (1.2-6.7); Anion Gap 9.3 mmol/L (3-11); BUN 22 mg/dL (7-18); Basophils % 0.5; CO2 26.7 mmol/L (21.0-32.0); Calcium 8.8 mg/dL (8.5-10.1); Chloride 105 mmol/L (98-107); Eosinophils % 3.8; Estimated GFR 54.97 (mL/min/1.73m2); Glucose 189 mg/dL (74-106); Immature Grans % 0.6; Nucleated RBC 0 %; Potassium 4.5 mmol/L (3.5-5.1); Sodium 141 mmol/L (136-145)
[2021-05-18 13:04] LABS: Diphtheria IgG Ab Positive; Diphtheria IgG Value 0.08 IU/mL; Tetanus IgG Ab Positive
== END 2021-05-14 22:01 | disposition home or self-care (01) ==
LOC: LBN 22:00
PROVIDERS: Student in an Organized Health Care Education/Training Program; PCP Nurse Practitioner Family; Visit Provider Nurse Practitioner Family
DX: J84.9 Interstitial pulmonary disease, unspecified (principal); E11.65 Type 2 diabetes mellitus with hyperglycemia; N28.9 Disorder of kidney and ureter, unspecified; R55 Syncope and collapse; I11.0 Hypertensive heart disease with heart failure; J96.11 Chronic respiratory failure with hypoxia; I27.20 Pulmonary hypertension, unspecified; D80.9 Immunodeficiency with predominantly antibody defects, unspecified
CPT/HCPCS: 80048; 85025; 86317; 86648

== ENCOUNTER 2021-05-25 14:28 | Outpatient (CLI) | payer OTHER, MEDICAID, SELFPAY ==
--- NOTE | 2021-05-25 14:15 | DI.RAD_ITS ---
Exam(s) XR SHOULDER LT COMPLETE 2+V EXAM: XR SHOULDER LT COMPLETE 2+V CLINICAL HISTORY: closed displaced fracture of proximal end of left TECHNIQUE: COMPARISON: CR XR SHOULDER LT COMPLETE 2+V from 05/03/2021 FINDINGS: Three views were obtained and show previous described proximal humeral fracture, no gross interval ch jackie in alignment of the fracture fragments allowing for differences in technique in comparison prior examination of May 03. The humeral head is subluxed inferiorly from the glenoid. IMPRESSION: RADIATION DOSE DELIVERED: Total DLP
== END 2021-05-25 14:29 | disposition home or self-care (01) ==
LOC: DIORS 14:28
PROVIDERS: PCP Nurse Practitioner Family; Referring Provider Nurse Practitioner Family; Visit Provider Student in an Organized Health Care Education/Training Program
DX: S42.292D Other displaced fracture of upper end of left humerus, subsequent encounter for fracture with routine healing; X58.XXXD Exposure to other specified factors, subsequent encounter
CPT/HCPCS: 99213; 73030

== ENCOUNTER 2021-06-29 09:22 | Outpatient (CLI) | payer OTHER, MEDICAID, SELFPAY ==
--- NOTE | 2021-06-29 08:15 | DI.RAD_ITS ---
Exam(s) XR SHOULDER LT COMPLETE 2+V EXAM: XR SHOULDER LT COMPLETE 2+V INDICATION: LEFT PROXIMAL END LEFT HUMERUS FX F/U. COMPARISON: CR XR SHOULDER LT COMPLETE 2+V from 05/25/2021 TECHNIQUE: 2D digital imaging was performed. FINDINGS: A fracture of the surgical neck of the humerus is again noted. There is decreased increased separati on of the fracture fragments when compared with the previous exam. The shaft appears to be displaced anteriorly based on the scapular Y-view. There is also increased angulation medially. Degenerative changes are noted at the glenoid. Resection of the distal clavicle is again noted. Impression: Increased separation and displacement at the proximal humeral fracture. DATA REPOSITORY: RADIATION DOSE DELIVERED:
== END 2021-06-29 09:23 | disposition home or self-care (01) ==
LOC: DIORS 09:23
PROVIDERS: PCP Nurse Practitioner Family; Referring Provider Nurse Practitioner Family; Visit Provider Student in an Organized Health Care Education/Training Program
DX: S42.292D Other displaced fracture of upper end of left humerus, subsequent encounter for fracture with routine healing (principal); W19.XXXD Unspecified fall, subsequent encounter; J44.9 Chronic obstructive pulmonary disease, unspecified; I11.0 Hypertensive heart disease with heart failure; I50.9 Heart failure, unspecified
CPT/HCPCS: 99213; 73030

== ENCOUNTER 2021-07-06 15:09 | Outpatient (REF) | payer OTHER, MEDICAID, SELFPAY ==
[2021-07-06 16:44] LABS: Anion Gap 10.2 mmol/L (3-11); BUN 33 mg/dL (7-18); CO2 26.8 mmol/L (21.0-32.0); CREATININE 1.5 mg/dL (0.55-1.02); Calcium 8.9 mg/dL (8.5-10.1); Chloride 104 mmol/L (98-107); Estimated GFR 34.33 (mL/min/1.73m2); Glucose 226 mg/dL (74-106); Potassium 5.2 mmol/L (3.5-5.1); Sodium 141 mmol/L (136-145)
[2021-07-08 01:00] LABS: Vitamin D 25 Total 25.8 ng/mL (30-100)
== END 2021-07-06 15:10 | disposition home or self-care (01) ==
LOC: LBN 15:09
PROVIDERS: PCP Nurse Practitioner Family; Visit Provider Internal Medicine Rheumatology
DX: M81.0 Age-related osteoporosis without current pathological fracture (principal)
CPT/HCPCS: 80048; 82306

== ENCOUNTER 2021-08-16 18:44 | Outpatient (REF) | payer MEDICARE, MEDICAID, SELFPAY ==
[2021-08-16 17:37] LABS: ALT 26 U/L (14-59); AST 17 U/L (15-37); Albumin 4.1 g/dL (3.4-5.0); Alkaline Phosphatase 129 U/L (46-116); Bilirubin, Direct 0.1 mg/dL (0.0-0.2); Bilirubin, Total 0.5 mg/dL (0.2-1.0); Total Protein 7.4 g/dL (6.4-8.2)
[2021-08-18 10:33] LABS: IgA 60 mg/dL (85-499); IgG 712 mg/dL (610-1,616); IgM 82 mg/dL (35-242)
[2021-08-18 12:57] LABS: IgE 3 IU/mL (<158)
== END 2021-08-16 18:45 | disposition home or self-care (01) ==
LOC: LBN 18:44
PROVIDERS: PCP Nurse Practitioner Family; Visit Provider Student in an Organized Health Care Education/Training Program
DX: J84.10 Pulmonary fibrosis, unspecified (principal); D80.9 Immunodeficiency with predominantly antibody defects, unspecified
CPT/HCPCS: 80076; 82784; 82785; 82787

== ENCOUNTER 2021-08-31 00:45 | Outpatient (CLI) | payer MEDICARE, MEDICAID, SELFPAY ==
--- NOTE | 2021-08-31 06:45 | DI.NM_ITS ---
APPROVED REPORT Exam: Pharmacologic Patient Location: Out-Patient Room/Bed: Stress Nurse: Pepper Peterson RN Ordering Provider:JANIS GAFFNEY, Contact Number: [phone] BMI: 32.31 Baseline Rhythm: Sinus Rhythm Indications: HISTORY OF IL, PRE-OP Medical History Medical History: NSTEMI, Cognitive impairement, Asthma, Anxiety, GERD, HTN, HLD, DMII, Chronic pulmon antonina aspiration, Pulmonary fibrosis, Immunoglobulin deficiency Cardiac Medications: Spironolactone, Pantoprazole, Midodrine, Insulin lispro, Insulin glargine, Furos emide, Clopidogrel, Atorvastatin, Albuterol sulfate inhaler, Epinephrine pen, Supplemental oxygen Allergies: Aspirin, Diclofenac, Latex, NSAIDS, Morphine Cardiac Risk Factors: FHX of CAD, HTN, Hyperlipidemia, Diabetes (insulin), Asthma, COPD, Obesity Previous Cardiac Procedures: None Pretest Chest Pain Characteristics: No chest pain Exercise History: Sedentary Physical Disabilities: Legs, broken arm Lung Sounds: Clear to auscultation Heart Sounds: Regular Stress Test Details Test: Pharmacologic stress testing performed using 0.4 mg of regadenoson per 5 mL given IV over 10 s econds. Reason for pharmacologic stress test: physical limitation. Nuclear Acquisition: Rest Tc-99m/Stress Tc-99m 1 day Rest Isotope: Tc-99m Sestamibi. Dose: 12.1 Date: 08/31/2021 Injection Time: 0900 Stress Isotope: Tc-99m Sestamibi. Dose: 37.0 Date: 08/31/2021 Injection Time: 1020 HR Resting HR Supine: 69 bpm Max Heart Rate (APMHR): 150.428683 bpm Target HR (85% APMHR): 127.954659 bpm Max HR Achieved: 106 bpm % of APMHR: 70.67 Recovery HR: 90 bpm BP Resting BP Supine: 104/68 mmHg Max BP: 138/62 mmHg Recovery BP: 130/64 mmHg ECG Resting ECG: Sinus Rhythm Ectopy: None Stress ECG: Sinus Tachycardia ST Change: No significant ST segment changes noted Arrhythmia: None Recovery ECG: Sinus Rhythm Recovery ST Change: No significant ST segment changes noted Recovery Arrhythmia: None Clinical Stress Symptoms: Lightheadedness, Nausea, Cough Rate Pressure Product: [id number] Stress ECG Conclusion 1. Resting electrocardiogram was within normal limits 2. Patient underwent pharmacologic stress with regadenoson 3. Blunted hemodynamics. Peak heart rate achieved was 70% of predicted for age 4. Electrocardiographically the test was nondiagnostic due to heart rate Stress Test Summary STAGE HR BP Symptoms NOTES Supine 69 104/68 1 min post Lexiscan injection 103 138/62 Lightheadedness, cough 3 min post Lexiscan injection 99 134/68 Nausea 6 min post Lexiscan injection 90 130/64 Symptoms resolved. MPI Conclusion Normal myocardial perfusion without evidence of ischemia or prior infarction EF 64% Radiologist Interpretation Radiologist Interpretation by: Facundo Izaguirre MD Interpretation Date/Time: 08/31/2021 16:17:20
[2021-08-31] MEDS: Regadenoson 0.4 MG/5 ML SYR IVP (10:15)
== END 2021-08-31 01:05 ==
PROVIDERS: PCP Nurse Practitioner Family; Visit Provider Nurse Practitioner Family
DX: I25.2 Old myocardial infarction (principal); Z01.810 Encounter for preprocedural cardiovascular examination; Z82.49 Family history of ischemic heart disease and other diseases of the circulatory system; I10 Essential (primary) hypertension; E78.5 Hyperlipidemia, unspecified; E11.9 Type 2 diabetes mellitus without complications; Z79.4 Long term (current) use of insulin; E66.9 Obesity, unspecified; Z68.32 Body mass index [BMI] 32.0-32.9, adult; J44.9 Chronic obstructive pulmonary disease, unspecified; R94.39 Abnormal result of other cardiovascular function study
CPT/HCPCS: 78452; 93016; 93018; 93017; J2785

== ENCOUNTER 2021-09-21 14:41 | Outpatient (REF) | payer MEDICARE, MEDICAID, SELFPAY ==
[2021-09-22 17:14] LABS: COVID-19 RT-PCR UVMMC Result Negative (Negative)
== END 2021-09-21 14:42 | disposition home or self-care (01) ==
LOC: LBN 14:41
PROVIDERS: PCP Nurse Practitioner Family; Visit Provider Physician Assistant
DX: Z20.822 Contact with and (suspected) exposure to COVID-19 (principal); R05.8 Other specified cough
CPT/HCPCS: U0003; U0005

== ENCOUNTER → 2021-09-21 15:39 | Outpatient (CLI) | payer MEDICARE, MEDICAID, SELFPAY ==
--- NOTE | 2021-09-21 14:11 | DI.RAD_ITS ---
Exam(s) XR CHEST 2V PA LATERAL EXAM: XR CHEST 2V PA LATERAL CLINICAL HISTORY: cough, R05.9 TECHNIQUE: 2D digital imaging was performed of the chest. Two images were obtained. PA and lateral views were obtained. COMPARISON: CR,XR XR CHEST 2V PA LATERAL from 05/02/2021 CR XR PORTABLE CHEST AP from 05/05/2021 CR XR PORTABLE CHEST AP POST LINE from 05/05/2021 CR XR PORTABLE CHEST AP POST LINE from 05/05/2021 FINDINGS: MEDIASTINUM: Normal. HEART: Normal. PULMONARY VASCULATURE: Normal. LUNGS: Increased lung markings in the right perihilar region. There are chronic changes seen in the left lung. PLEURAL SPACE: No pleural effusion or pneumothorax. BONE:Within normal limits for the patient's age. Degenerative changes in the right AC joint. Postsu rgical changes of the left AC joint. OTHER FINDINGS:Decreased inspiration. Elevation of the right hemidiaphragm. IMPRESSION: Increased lung markings in the right perihilar region. This may represent a pneumonia. DATA REPOSITORY: RADIATION DOSE DELIVERED:
== END ==
PROVIDERS: PCP Nurse Practitioner Family; Visit Provider Physician Assistant
DX: R05.8 Other specified cough (principal); R91.8 Other nonspecific abnormal finding of lung field
CPT/HCPCS: 71046

== ENCOUNTER 2021-11-16 16:46 | Outpatient (REF) | payer OTHER, MEDICAID, SELFPAY ==
[2021-11-16 13:56] LABS: HCT 38.2 % (36.0-46.0); HGB 12.1 g/dL (11.2-15.7); MCH 29.5 pg (27.0-33.0); MCHC 31.7 % (32.0-36.0); MCV 93.2 fL (80-95); MPV 10.1 fL (8.0-11.0); Platelet Count 349 10^3/uL (130-400); RDW 14.9 % (11.7-14.6); RDW-SD 51.6 fL; WBC 12.39 10^3/uL (4.4-10.8)
[2021-11-16 14:12] LABS: ALT 21 U/L (14-59); AST 14 U/L (15-37); Albumin 3.8 g/dL (3.4-5.0); Alkaline Phosphatase 94 U/L (46-116); Anion Gap 9.4 mmol/L (3-11); BUN 31 mg/dL (7-18); Bilirubin, Total 0.4 mg/dL (0.2-1.0); CO2 26.6 mmol/L (21.0-32.0); CREATININE 1.3 mg/dL (0.55-1.02); Calcium 8.9 mg/dL (8.5-10.1); Chloride 104 mmol/L (98-107); Estimated GFR 40.49 (mL/min/1.73m2); Glucose 186 mg/dL (74-106); Potassium 4.2 mmol/L (3.5-5.1); Sodium 140 mmol/L (136-145); Total Protein 6.8 g/dL (6.4-8.2)
== END 2021-11-16 16:47 | disposition home or self-care (01) ==
LOC: LBN 16:46
PROVIDERS: PCP Nurse Practitioner Family; Visit Provider Student in an Organized Health Care Education/Training Program
DX: J84.89 Other specified interstitial pulmonary diseases (principal)
CPT/HCPCS: 80053; 85027

== ENCOUNTER 2021-12-02 17:59 | Inpatient (IN) | payer MEDICARE, MEDICAID, SELFPAY ==
[2021-12-02] VITALS (12 sets, daily range): BP systolic 92–126; BP diastolic 53–82; PULSE 96–148; RESP 17–24; TEMP 36–37; O2SAT 95–100
--- NOTE | 2021-12-02 | DI.CT_ITS ---
Exam(s) CT ABDOMEN PELVIS W EXAM: CT ABDOMEN PELVIS W CLINICAL HISTORY: LLQ pain TECHNIQUE: Imaging Protocol: Axial computed tomography images with coronal and sagittal reformatted images were created and reviewed CONTRAST MATERIAL: Intravenous: Omnipaque 350 Contrast volume:100 mL Oral: Yes COMPARISON: CT CT CHEST/ABD/PEL WO from 12/04/[address] CHEST PE CTA from 12/02/2021 FINDINGS: ABDOMEN: Lung Bases: Please see the CT scan of the chest performed the same day for complete details. Liver: Normal density. No measurable mass. Portal, Superior Mesenteric, and Splenic Veins: Unremarkable. Gallbladder and Biliary Tract: Status post cholecystectomy. No biliary ductal dilatation. Pancreas: Pancreatic atrophy. No peripancreatic inflammatory changes. Spleen: Normal. Adrenals: No masses seen. Kidneys: Normal size, contour and axis. No radiodense stones or obstructive uropathy. No masses seen. Abdominal Aorta: Abdominal portion non-dilated. Atherosclerosis is present. Bowel: No obstruction or bowel wall thickening. There is no evidence of appendicitis. There is a smal l hiatal hernia. Peritoneal Cavity: No ascites, collection or mesenteric inflammatory response. No free air. Lymph Nodes: Within normal limits. Bones: Within normal limits for the patient's age. Soft Tissues: Unremarkable. PELVIS: Bladder: The urinary bladder is incompletely distended. There is a Magaña catheter in place. Reproductive Organs: Unremarkable as visualized. Lymph Nodes: Within normal limits. Bones: Within normal limits for the patient's age. Old appearing compression deformity of the L1 abhilash tebral body. IMPRESSION: No acute abdominal or pelvic process. RADIATION DOSE DELIVERED: 1,311.83mGy.cm Total DLP DATA REPOSITORY: All CT scans at this facility are submitted to the National Radiology Data Registry (NRDR) Dose Index Registry (DIR) with the [employer] ([employer]). RADIATION OPTIMIZATION: All CT scans at this facility use at least one of these dose optimization te chniques: automated exposure control; mA and/or kV adjustment per patient size (includes targeted exa ms where dose is matched to clinical indication); or iterative reconstruction.
--- NOTE | 2021-12-02 18:00 | RT.EKG_ITS ---
APPROVED REPORT Exam: Resting ECG Reason for Exam: dizzy Patient Location: E HR:141 bpm ECG Measurements Heart Rate 141 AXIS RI [id number] P [id number] QRSd 94 QRS -10 QT 322 T 141 QTc 494 Conclusion Atrial fibrillation...? atrial activity Repolarization abnormality, prob rate related...ST dep, T neg, tachycardia Afib RVR
--- NOTE | 2021-12-02 18:00 | DI.CT_ITS ---
Exam(s) CT CHEST PE CTA EXAM: CT CHEST PE CTA CLINICAL HISTORY: tachacardia, presyncope, recent surgery. TECHNIQUE: Imaging Protocol: Axial CT angiography was performed with multi-slice acquisition and mu lti-planar and/or 3D reconstructions. CONTRAST MATERIAL: Intravenous: Omnipaque 350 Contrast volume:71 mL COMPARISON: CT CT CHEST/ABD/PEL WO from 12/04/2020 CT,NM,TMT NM MPI REST STRESS GRP from 08/31/2021 FINDINGS: Tracheobronchial tree: Patent where visualized. Pulmonary parenchyma: Bilateral ground-glass opacities are present. There are low lung volumes. No architectural distortion. Pulmonary Arteries: No evidence of filling defect to suggest pulmonary emboli. Mediastinum and Martha: There are mildly enlarged mediastinal lymph nodes. The largest measures 1.2 cm . There is a small hiatal hernia. The esophagus is otherwise unremarkable. Visualized thyroid gland: Unremarkable. Pleura: No effusion or pneumothorax. Heart: The heart is not dilated. Coronary artery calcifications are present. No pericardial effusion . Aorta: Thoracic aorta non-dilated. No evidence of dissection. Atherosclerosis is present. Upper abdomen: Unremarkable. Soft tissues: Unremarkable. Bones: The patient has a left reverse total shoulder replacement. Degenerative changes are seen in t he spine. IMPRESSION: 1. No evidence of pulmonary embolism, thoracic aortic dissection or aneurysm. 2. Multifocal ground-glass opacities in the lungs. The findings are suspicious for pneumonia. The f indings would be consistent with COVID-19 pneumonia. Please correlate clinically. RADIATION DOSE DELIVERED: 583.81mGy.cm Total DLP DATA REPOSITORY: All CT scans at this facility are submitted to the National Radiology Data Registry (NRDR) Dose Index Registry (DIR) with the [employer] (ACR). RADIATION OPTIMIZATION: All CT scans at this facility use at least one of these dose optimization te chniques: automated exposure control; mA and/or kV adjustment per patient size (includes targeted exa ms where dose is matched to clinical indication); or iterative reconstruction.
[2021-12-02 18:29] LABS: BE (Venous) 1 mmol/L (-2-3); HCO3 (Venous) 26 mmol/L (23-28); O2 Sat (Venous) 49 %; TCO2 (Venous) 25 mmol/L (24-29); pCO2 (Venous) 47 mmHg (41-51); pH (Venous) 7.35 (7.31-7.41); pO2 (Venous) 27 mmHg
--- NOTE | 2021-12-02 18:33 | W.ED.GENAD ---
Discharge Plan Disposition Patient Disposition: [facility] INPATIENT Condition: Fair Discharge Details Clinical Impression: Atrial fibrillation with tachycardic ventricular rate, Anemia, Acute dehydration, Pre-syncope Primary Care Provider: Dharmesh Nolasco ED Provider: Fredy Kasper Home Meds and New Rx's Prescriptions: Continued (DME) Wheeled walker with seat and basket Qty: 1 0RF Dose Instruction: As directed Rx Instructions: As directed, for ambulation with need to store portable oxygen and medications (DME) FreeStyle Kaye 2 [place] Misc See Rx Instructions .ROUTE .MEDSUPPLY Qty: 1 0RF Rx Instructions: As directed (DME) FreeStyle Kaye 2 Sensor Kit See Rx Instructions .ROUTE .MEDSUPPLY Qty: 1 11RF Rx Instructions: As directed ondansetron HCl [Zofran] 4 mg tablet 4 mg PO Q6H 0RF pantoprazole 40 mg tablet,delayed release (DR/EC) 40 mg PO BID Qty: 90 6RF (DME) Oxygen Tank See Rx Instructions .ROUTE .MEDSUPPLY Qty: 1 0RF Label Comments: 2l with exertion Rx Instructions: As directed, 1L oxygen at HS. escitalopram oxalate 20 mg tablet 20 mg PO DAILY Qty: 90 4RF cholecalciferol (vitamin D3) 1,250 mcg (50,000 unit) capsule 1,250 mcg PO QWEEK 0RF albuterol sulfate [Ventolin HFA] 90 mcg/actuation HFA aerosol inhaler 2 puff Inhalation Q4H PRN Qty: 1 12RF Rx Instructions: 18GM Ofev 150 mg capsule 150 mg PO Q12H Qty: 60 12RF albuterol sulfate 2.5 mg /3 mL (0.083 %) solution for nebulization 2.5 mg inhalation Q4H PRN (Reason: shortness of breath or wheezing) Qty: 90 8RF benzonatate 100 mg capsule 100 mg PO TID PRN (Reason: cough) Qty: 30 1RF polyethylene glycol 3350 [Miralax] 17 gram/dose powder 17 g PO DAILY 0RF multivitamin [Daily Multi-Vitamin] Tablet 1 tab PO DAILY 0RF loperamide [Anti-Diarrheal (loperamide)] 2 mg tablet 2 mg PO Q6H PRN (Reason: loose stool) Qty: 60 2RF (DME) pen needle, diabetic [BD Ultra-Fine Short Pen Needle] 31 gauge x 5/16 needle See Rx Instructions .ROUTE .MEDSUPPLY Qty: 1200 4RF Rx Instructions: 7 times per day oxycodone 10 mg tablet 10 mg PO Q4H MDD 4 tabs PRN (Reason: pain) Qty: 100 0RF (DME) Oxygen Tank See Dose Instructions .ROUTE .MEDSUPPLY Qty: 1 0RF Label Comments: Dr. Clarita Santiago Rx Instructions: As directed (DME) Face mask to deliver Oxygen Qty: 2 6RF Dose Instruction: As directed Rx Instructions: As directed (DME) pen needle, diabetic [Pen Needle] 31 gauge x 5/16 needle 1 ea Miscellaneous QID Qty: 4 12RF Rx Instructions: Dx: E11.65 400 needles/month for use with tresiba and humalog spironolactone 25 mg tablet 25 mg PO DAILY Qty: 30 11RF (DME) Blood Glucose Test Strip 1 ea Miscellaneous TID Qty: 400 12RF Rx Instructions: PT USES INSULIN. TESTS QID AND PRN. (DME) lancets 28 gauge misc 1 ea Miscellaneous TID Qty: 400 12RF Rx Instructions: PT USES INSULIN. Test QID, to keep HbA1c less than 6.5% midodrine 10 mg tablet 10 mg PO TID Qty: 180 4RF epinephrine [EpiPen 2-Gordon] 0.3 mg/0.3 mL auto-injector 0.3 mg IM ONCE PRN (Reason: anaphylaxis) Qty: 1 3RF insulin lispro [Humalog KwikPen Insulin] 100 unit/mL insulin pen 4 - 24 unit SUBCUT AC Qty: 15 4RF clopidogrel 75 mg tablet 75 mg PO DAILY Qty: 90 3RF atorvastatin 80 mg tablet 80 mg PO QPM Qty: 90 3RF celecoxib 100 mg capsule 100 mg PO BID Qty: 60 3RF Digestive Enzyme (acidoph,pec) 50 million cell-100 mg tablet 1 tab PO BID Qty: 90 3RF furosemide 40 mg tablet 40 mg PO DAILY Qty: 90 3RF cyclobenzaprine 5 mg tablet 5 mg PO DAILY PRN (Reason: muscle spasm) Qty: 90 6RF lidocaine [Lidoderm] 5 % adhesive patch,medicated 1 patch topical DAILY Qty: 30 3RF Rx Instructions: leave on most painful area for up to 12 hrs Lantus Solostar U-100 Insulin 100 unit/mL (3 mL) insulin pen 18 unit SUBCUT .NIGHTLY 0RF acetaminophen [Tylenol] 325 mg Tablet 650 mg PO Q4H PRN PRNQty: 0 0RF Medical Decision Making 71-year-old female history of diabetes CHF A. fib interstitial lung disease oxygen dependent recent left shoulder repair presents after presyncopal event while transitioning from car to home upon return from [facility], noted to be tachycardic was relatively hypoxic in the field improved on nasal cannula, dry oral mucosa and conjunctival pallor noted, on examination, EKG A. fib RVR, fingerstick in the field 300. Consider dehydration versus anemia versus DKA versus ACS versus PE versus less likely infection such as pneumonia or UTI. Will order screening lab imaging small fluid bolus 500 cc given history of CHF will reassess respiratory status after initial bolus, consider 2nd 500 cc bolus if not showing signs of fluid overload status; at this time we'll not add rate controlling agent as there is more likely a metabolic/volume related cause to his tachycardia. Likely admission Evidence of NSTEMI level troponin, elevated BNP, and relative anemia; rate now in the low 100s to 120s, patient appears to be fluid responsive, is not fluid overloaded clinically at this time therefore will proceed with another 500 cc bolus to attempt to control rate, pending CTA chest for admission. Resting comfortably no acute distress at this time, discussed CODE STATUS with patient she is full code. Patient guardian/grandson Jorge Luis phone number [phone]. Patient to be admitted to ICU, signed out to Dr. Lassiter. Diltiazem ordered as patient's HR becky to 130-140s again, however now appeared to have converted, will order repeat ekg HPI General Date/Time Provider Initiated Documentation: 12/02/21 18:08. HPI Narrative: 71-year-old female history of diabetes, NSTEMI, CHF, interstitial lung disease, on home O2, postop day 3 from left shoulder repair at [facility] following fracture; patient has a history of A. fib, is off of her anticoagulation due to recent procedure, family was transitioning her from car to home when patient became diaphoretic presyncopal, noted by EMS to be saturating in the eighties on room air she was not on oxygen, greatly improved after being placed back on supplemental oxygen, patient endorses feeling awful. Denies discrete chest pain or shortness of breath denies leg swelling denies history of blood clots, endorses that her blood sugars can sometimes be as high as the 300s insulin was last given earlier today Related Data Home Medications Medication Instructions Recorded Confirmed Oxygen #1 each 11/29/18 11/24/21 Wheeled walker with seat and basket #1 ea 02/07/19 11/24/21 Face mask to deliver Oxygen #2 each 04/23/19 11/24/21 pen needle, diabetic 31 gauge x #4 box 08/03/20 11/24/2103/07 (Pen Needle) flash glucose scanning reader #1 ea 02/23/21 11/24/21 (FreeStyle Kaye 2 [place]) flash glucose sensor (FreeStyle #1 ea 02/23/21 11/24/21 Kaye 2 Sensor) spironolactone 25 mg tablet 25 mg PO DAILY #30 tab 03/08/21 12/02/21 blood sugar diagnostic (Blood #400 strip 03/10/21 11/24/21 Glucose Test) lancets 28 gauge #400 ea 03/10/21 11/24/21 acetaminophen 325 mg tablet 650 mg PO Q4H PRN PRN #0 tab 03/24/21 12/02/21 (Tylenol) pantoprazole 40 mg tablet,delayed 40 mg PO BID #90 tab 05/14/21 12/02/21 release escitalopram oxalate 20 mg tablet 20 mg PO DAILY #90 tab 05/20/21 12/02/21 ondansetron HCl 4 mg tablet 4 mg PO Q6H 05/25/21 12/02/21 (Zofran) epinephrine 0.3 mg/0.3 mL 0.3 mg (0.3 mL) IM ONCE PRN #1 ea 05/27/21 12/02/21 injection, auto-injector (EpiPen 2-Gordon) midodrine 10 mg tablet 10 mg PO TID #180 tab 05/27/21 12/02/21 insulin lispro 100 unit/mL 4 - 24 unit (0.04 - 0.24 mL) 06/30/21 12/02/21 subcutaneous pen (Humalog KwikPen SUBCUT AC #15 ml (U-100) Insulin) Oxygen #1 ea 08/16/21 11/24/21 albuterol sulfate 2.5 mg (3 mL) INHALATION Q4H PRN 08/16/21 12/02/21 #90 ml albuterol sulfate 90 mcg/actuation 2 puff INHALATION Q4H PRN #1 08/16/21 12/02/21 aerosol inhaler (Ventolin HFA) inhaler cholecalciferol (vitamin D3) 1,250 1,250 mcg PO QWEEK 08/16/21 12/02/21 mcg (50,000 unit) capsule nintedanib 150 mg capsule (Ofev) 150 mg PO Q12H #60 cap 08/16/21 12/02/21 atorvastatin 80 mg tablet 80 mg PO QPM #90 tab 08/23/21 12/02/21 clopidogrel 75 mg tablet 75 mg PO DAILY #90 tab 08/23/21 12/02/21 celecoxib 100 mg capsule 100 mg PO BID #60 cap 09/20/21 12/02/21 digestive no.8-L.acidophilus 50 1 tab PO BID #90 tab 09/20/21 12/02/21 million cell-pectin 100 mg tablet (Digestive Enzyme (acidophilus, pectin, bromelain)) benzonatate 100 mg capsule 100 mg PO TID PRN #30 cap 09/27/21 12/02/21 furosemide 40 mg tablet 40 mg PO DAILY #90 tab 10/27/21 12/02/21 loperamide 2 mg tablet 2 mg PO Q6H PRN #60 tab 11/01/21 12/02/21 (Anti-Diarrheal (loperamide)) multivitamin (Daily Multi-Vitamin) 1 tab PO DAILY 11/01/21 12/02/21 oxycodone 10 mg tablet 10 mg PO Q4H PRN #100 tab MDD 4 11/01/21 12/02/21 tabs pen needle, diabetic 31 gauge x #1200 ea 11/01/21 11/24/21 5/16 (BD Ultra-Fine Short Pen Needle) polyethylene glycol 3350 17 17 g PO DAILY 11/01/21 12/02/21 gram/dose oral powder (Miralax) cyclobenzaprine 5 mg tablet 5 mg PO DAILY PRN #90 tab 11/22/21 12/02/21 lidocaine 5 % topical patch 1 patch TOPICAL DAILY #30 ea 11/24/21 12/02/21 (Lidoderm) insulin glargine 100 unit/mL (3 18 unit SUBCUT .NIGHTLY 12/02/21 12/02/21 mL) subcutaneous pen (Lantus Solostar U-100 Insulin) Previous Rx's Medication Instructions Recorded Wheeled walker with seat and basket #1 ea 02/07/19 Face mask to deliver Oxygen #2 each 04/23/19 pen needle, diabetic 31 gauge x #4 box 08/03/2003/07 (Pen Needle) flash glucose scanning reader #1 ea 02/23/21 (FreeStyle Kaye 2 [place]) flash glucose sensor (FreeStyle #1 ea 02/23/21 Kaye 2 Sensor) spironolactone 25 mg tablet 25 mg PO DAILY #30 tab 03/08/21 blood sugar diagnostic (Blood #400 strip 03/10/21 Glucose Test) lancets 28 gauge #400 ea 03/10/21 acetaminophen 325 mg tablet 650 mg PO Q4H PRN PRN #0 tab 03/24/21 (Tylenol) pantoprazole 40 mg tablet,delayed 40 mg PO BID #90 tab 05/14/21 release escitalopram oxalate 20 mg tablet 20 mg PO DAILY #90 tab 05/20/21 epinephrine 0.3 mg/0.3 mL 0.3 mg (0.3 mL) IM ONCE PRN #1 ea 05/27/21 injection, auto-injector (EpiPen 2-Gordon) midodrine 10 mg tablet 10 mg PO TID #180 tab 05/27/21 insulin lispro 100 unit/mL 4 - 24 unit (0.04 - 0.24 mL) 06/30/21 subcutaneous pen (Humalog KwikPen SUBCUT AC #15 ml (U-100) Insulin) albuterol sulfate 2.5 mg (3 mL) INHALATION Q4H PRN 08/16/21 #90 ml albuterol sulfate 90 mcg/actuation 2 puff INHALATION Q4H PRN #1 08/16/21 aerosol inhaler (Ventolin HFA) inhaler nintedanib 150 mg capsule (Ofev) 150 mg PO Q12H #60 cap 08/16/21 atorvastatin 80 mg tablet 80 mg PO QPM #90 tab 08/23/21 clopidogrel 75 mg tablet 75 mg PO DAILY #90 tab 08/23/21 celecoxib 100 mg capsule 100 mg PO BID #60 cap 09/20/21 digestive no.8-L.acidophilus 50 1 tab PO BID #90 tab 09/20/21 million cell-pectin 100 mg tablet (Digestive Enzyme (acidophilus, pectin, bromelain)) benzonatate 100 mg capsule 100 mg PO TID PRN #30 cap 09/27/21 furosemide 40 mg tablet 40 mg PO DAILY #90 tab 10/27/21 loperamide 2 mg tablet 2 mg PO Q6H PRN #60 tab 11/01/21 (Anti-Diarrheal (loperamide)) oxycodone 10 mg tablet 10 mg PO Q4H PRN #100 tab MDD 4 11/01/21 tabs pen needle, diabetic 31 gauge x #1200 ea 11/01/2103/07 (BD Ultra-Fine Short Pen Needle) cyclobenzaprine 5 mg tablet 5 mg PO DAILY PRN #90 tab 11/22/21 lidocaine 5 % topical patch 1 patch TOPICAL DAILY #30 ea 11/24/21 (Lidoderm) Allergies Allergy/AdvReac Type Severity Reaction Status Date / Time aspirin Allergy Unknown HIVES, Verified 12/02/21 18:04 flip out diclofenac Allergy Unknown RASH Verified 12/02/21 18:04 latex Allergy Unknown SKIN Verified 12/02/21 18:04 BREAKDOWN NSAIDS (Non-Steroidal Allergy Unknown HIVES, Verified 12/02/21 18:04 Anti-Inflamma VOMITING morphine AdvReac Unknown VOMITING Verified 12/02/21 18:04 General Stated Complaint: Dizzy/Sync ALVIN: 3 Review of Systems Narrative: Review of Systems Constitutional: Fatigue Eyes: negative ENT: negative Cardiovascular: Tachycardia, presyncope Respiratory: negative Gastrointestinal: negative : negative Musculoskeletal: negative Skin: negative Neurologic: negative Psych: negative PFSH All Active Problems (Updated 12/02/21 @ 20:32 by Fredy Kasper MD) Atrial fibrillation with tachycardic ventricular rate (Acute) Anemia (Chronic) Acute dehydration (Acute) Pre-syncope (Acute) Shoulder fracture, left (Acute) Immunoglobulin deficiency (Acute) Chronic pulmonary aspiration (Acute) Anemia (Chronic) Grief (Chronic) brother Nov 2020 Low-level of literacy (Chronic) Palliative care patient (Acute) Orthostatic hypotension (Acute) Acute congestive heart failure (Acute) NSTEMI (non-ST elevated myocardial infarction) (Acute) Shortness of breath (Acute) Syncope (Chronic) Ribs, multiple fractures (Acute) IDDM (insulin dependent diabetes mellitus) (Chronic) Hiatal hernia (Chronic) Acute on chronic congestive heart failure with right ventricular diastolic dysfunction (Acute) Pulmonary fibrosis (Chronic) Renal insufficiency (Chronic) Functional encopresis (Chronic) Palliative care patient (Chronic) Pulmonary hypertension (Chronic) Chronic respiratory failure with hypoxia (Chronic) Advance directive on file (Acute) Internal derangement of right knee (Chronic) Back pain (Chronic) Asthma (Chronic) Osteoporosis (Chronic 03/16/18) Neck pain (Chronic 03/16/18) Migraine (Chronic 04/03/14) Long-term use of high-risk medication (Chronic 03/16/18) Interstitial lung disease (Acute 03/16/18) Pulm: Bertin Gastroesophageal reflux disease without esophagitis (Chronic 03/16/18) Essential hypertension (Chronic 07/17/13) Edema (Chronic 03/16/18) Dyspnea (Chronic 03/16/18) Depressive disorder (Chronic) Cognitive impairment (Chronic 03/16/18) Mild, w/Memory Loss Anxiety (Chronic 03/16/18) Umbilical hernia (Chronic) Type II diabetes mellitus, uncontrolled (Chronic) Total urinary incontinence (Chronic) Shoulder pain (Chronic) left- surgery Post herpetic neuralgia (Chronic 03/16/18) Peripheral neuralgia (Chronic) Medical History (Updated 12/02/21 @ 20:32 by Fredy Kasper MD) Abdominal pain Acute gastroenteritis (03/16/18) Acute kidney injury (nontraumatic) Acute pneumonitis SYD (acute kidney injury) Anosognosia Asthma Chest wall pain COPD (chronic obstructive pulmonary disease) COVID-19 ruled out by laboratory testing Dehydration Discharge planning issues Discharge planning issues DKA (diabetic ketoacidoses) DKA (diabetic ketoacidoses) DKA (diabetic ketoacidosis) DVT prophylaxis DVT prophylaxis Encounter to establish care Fracture of humerus, proximal, left, closed (05/02/21) History of shingles (03/16/18) Hyperlipemia Inflammatory disorder of digestive tract Insulin dependent diabetes mellitus Metabolic acidosis with normal anion gap and bicarbonate losses Nausea & vomiting 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 History of section Ligation of fallopian tube Thoracoscopic (R)Lung Bx (02/12/18) Family History Mother , aged 81 from dementia, [place] Elly Diabetes Essential hypertension CHF (congestive heart failure) Heart disease CHF/heart failure Dementia Father , aged 80 Diabetes Essential hypertension CAD (coronary artery disease) Heart disease [place] Hyperlipidemia Stroke Sister , aged 54 Diabetes Personal history of malignant neoplasm Lung Asthma Lung cancer Brother , of mesithelioma aged 62 Diabetes Essential hypertension Personal history of malignant neoplasm Lung, Prostate Hyperlipidemia Asthma Mesothelioma Brother , of PE following knee surgery age 69 Pulmonary embolus with infarction Daughter No problems noted. Son No problems noted. 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 Pets and animals: Yes Pets and animals: cat(s) Sexually active: No Do you think of yourself as: straight/heterosexual Current gender identity: female What is your relationship status?: How often do you talk on the phone with friends or family?: three or more times per week How often do you get together with friends or relatives?: three or more times per week How often do you attend scientology or protestant services?: 1-3 times per year Do you belong to any clubs or organized social groups?: no Panel score (0-1 are the most socially isolated patients): 1 What type of physical activity do you participate in: none and sedentary lifestyle Duration: < 15 minutes/day Frequency: does not exercise Bibi/Buddhism: Worship Special bibi needs: No Agree to transfusion: Yes Seatbelt use: sometimes Helmet use: No Drive intox or ride w/intox commercial collections driver: No Water heater temp set <120 deg: Yes Working smoke detector in home: Yes Fire extinguisher in home: Yes Carbon monox detector in home: Yes Do you feel safe at home: Yes Do you feel safe in your relationship?: Yes Victim of physical abuse: No Victim of emotional abuse: No Victim of sexual abuse: No Would you like helpful sources: No Additional Social history: Recently in the [facility] x 2 mos. Didn't feel she needed to be there. She reports was supposed to be a 2 week stay. She said she did all her own care. She says the staff is stretched thin. She can take care of herself at home just fine. She says her family is more worried about her than they need to be. Exam Narrative Exam Narrative: Physical Examination General: alert, awake, cooperative, resting comfortably, no acute distress; appears mildly uncomfortable HEENT: normocephalic, atraumatic; PERRL, EOM intact, noted to have conjunctival pallor no nasal discharge; dry oral mucosa Neck: supple, trachea midline; full ROM Chest: normal to inspection Respiratory: normal respiratory effort, speaking in full sentences, clear to auscultation, no wheezing, rales or rhonchi Cardiac: Irregularly irregular tachycardia, S1S2 intact, no murmurs rubs or gallops GI: abdomen soft, non-tender, non-distended; no palpable mass or hepatosplenomegaly Skin: no lesions, rashes or trauma appreciated Neuro: AAOx3, normal speech, moving all extremities Extremities: Left upper extremity in postsurgical sling Psych: Appropriate mood and affect Course Vital Signs Vital signs: Vital Signs Temperature 36 C L 12/02/21 17:56 Pulse 146 H 12/02/21 17:56 Respiratory Rate 18 12/02/21 17:56 Blood Pressure 120/70 12/02/21 17:56 Pulse Oximetry 100 12/02/21 17:56 Temperature 36 C L 12/02/21 17:56 Pulse 146 H 12/02/21 17:56 Respiratory Rate 18 12/02/21 17:56 Respiratory Effort 12/02/21 17:56 Blood Pressure 120/70 12/02/21 17:56 Blood Pressure Position Supine 12/02/21 17:56 Pulse Oximetry 100 12/02/21 17:56 Oxygen Delivery Method Room Air 12/02/21 17:56 Oxygen Flow Rate 0 12/02/21 17:56 Pain Level 9 12/02/21 17:56 Lab/Test Results Lab/Test Results: Laboratory Tests Range/Units 12/02/21 18:13 VBG pH (7.31-7.41) 7.35 VBG pCO2 (41-51) mmHg 47 VBG pO2 mmHg 27 VBG HCO3 (23-28) mmol/L 26 VBG Total CO2 (24-29) mmol/L 25 VBG O2 Saturation % 49 VBG Base Excess (-2-3) mmol/L 1
[2021-12-02 18:34] LABS: Abs Immature Grans 0.07 10^3/uL (0.0-0.06); Absolute Eosinophil Count 0.41 10^3/uL (0.0-0.7); Absolute Monocyte Count 0.71 10^3/uL (0.1-0.8); Basophils % 0.5; Eosinophils % 3.2; HCT 25.9 % (36.0-46.0); HGB 8.3 g/dL (11.2-15.7); Immature Grans % 0.5; Lymphocytes % 10.3; MCH 30.7 pg (27.0-33.0); MCV 95.9 fL (80-95); Monocytes % 5.5; Nucleated RBC 0 %; Platelet Count 232 10^3/uL (130-400); RDW 15.1 % (11.7-14.6); RDW-SD 52.5 fL; WBC 12.87 10^3/uL (4.4-10.8)
[2021-12-02] MEDS: Normal Saline 500 ML 1000 ML IV (18:41)
[2021-12-02 18:44] LABS: Absolute Basophil Count 0.06 10^3/uL (0.0-0.2); Absolute Lymphocyte Count 1.33 10^3/uL (1.2-3.4)
[2021-12-02 18:49] LABS: ALT 16 U/L (14-59); AST 63 U/L (15-37); Albumin 2.7 g/dL (3.4-5.0); Alkaline Phosphatase 89 U/L (46-116); BUN 16 mg/dL (7-18); Bilirubin, Total 0.8 mg/dL (0.2-1.0); CREATININE 1.5 mg/dL (0.55-1.02); Calcium 8.6 mg/dL (8.5-10.1); Chloride 100 mmol/L (98-107); Estimated GFR 34.33 (mL/min/1.73m2); Glucose 271 mg/dL (74-106); Potassium 3.7 mmol/L (3.5-5.1); Sodium 136 mmol/L (136-145); Total Protein 6.3 g/dL (6.4-8.2)
[2021-12-02 18:52] LABS: Troponin I 4436 ng/L (<or=60)
[2021-12-02 19:08] LABS: NT-proBNP 6466 pg/mL (<300)
[2021-12-02 19:09] LABS: PTT Activated 27.1 sec (21.0-27.5); Prothrombin Time 10.2 sec (9.3-11.0)
[2021-12-02 19:21] LABS: Bilirubin Negative (Negative); Blood Negative (Negative); Clarity Clear (Clear); Glucose Negative (Negative); Ketones Negative (Negative); Leukocyte Esterase Negative (Negative); Nitrite Negative (Negative); Specific Gravity 1.015 (1.005-1.025); Urobilinogen 0.2 EU/dL (Up TO 0.2); pH 5.5 (5-8)
[2021-12-02] MEDS: Acetaminophen 325 MG TAB 650 MG PO (19:30)
[2021-12-02] MEDS: Omnipaque 350 MG/ML 100 ML BTL 71 ML IV ×2 (19:32→23:25)
--- NOTE | 2021-12-02 20:04 | DI.VRAD_ITS ---
PROCEDURE INFORMATION: Exam: CTA Chest With Contrast Exam date and time: 12/02/2021 6:21 PM Age: 71 years old Clinical indication: Other: Tachycardia, presyncope, recent surgery TECHNIQUE: Imaging protocol: Computed tomographic angiography of the chest with contrast. 3D rendering (Not supervised by radiologist): MIP and/or 3D reconstructed images were created by the technologist. Radiation optimization: All CT scans at this facility use at least one of these dose optimization techniques: automated exposure control; mA and/or kV adjustment per patient size (includes targeted exams where dose is matched to clinical indication); or iterative reconstruction. Contrast material: OMNIPAQUE 350; Contrast volume: 71 ml; Contrast route: INTRAVENOUS (IV); COMPARISON: CT CHEST/ABD/PEL WO 12/04/2020 7:54 PM FINDINGS: Pulmonary arteries: Normal. No pulmonary emboli. Aorta: Unremarkable. No aortic aneurysm. No aortic dissection. Lungs: Multifocal ground-glass opacity noted throughout both lungs, primarily peripheral geographic. Scattered areas of consolidation are present. Lung volumes are low. No significant endobronchial mucus. Expiratory phase imaging noted. Pleural spaces: Unremarkable. No pneumothorax. No pleural effusion. Heart: Unremarkable. No cardiomegaly. No pericardial effusion. Lymph nodes: Moderate mediastinal and hilar lymphadenopathy. Diaphragm: Mild hiatal hernia. Bones/joints: Shoulder replacement noted on the left. A compression fracture at L1 is partially visualized, unchanged. Degenerative changes are noted in the cervical spine. Soft tissues: Unremarkable. IMPRESSION: 1. Negative for pulmonary embolism. 2. Multifocal ground-glass opacity and areas of consolidation. Imaging features can be seen with COVID-19 pneumonia, though are nonspecific and can occur with a variety of infectious and noninfectious processes. (Reference: Stanley) REFERENCES: Stanley Pickering, et al., Radiological Society of [place] Expert Consensus Statement on Reporting Chest CT Findings Related to COVID-19. Endorsed by the Society of Thoracic Radiology, the [place] [employer], and RSNA. Published January 15, 2020. Dictated and Authenticated by: Jaxson Marie MD. Ordering:HUONG Daniel MD
[2021-12-02] MEDS: Normal Saline 500 ML IV (20:05)
--- NOTE | 2021-12-02 20:30 | RT.EKG_ITS ---
APPROVED REPORT Exam: Resting ECG Reason for Exam: tachycardia Patient Location: E HR:103 bpm ECG Measurements Heart Rate 103 AXIS AZ 71 P 0 QRSd 98 QRS 1 QT 364 T 95 QTc 476 Conclusion Sinus tachycardia...rate> 99 Nonspecific repol abnormality, lateral leads...ST dep, T neg, I aVL V5 V6
[2021-12-02 20:49] LABS: Source Nasal/Nares
[2021-12-02 21:27] LABS: COVID-19 PCR Negative (Negative)
[2021-12-02 22:18] LABS: Troponin I 4517 ng/L (<or=60)
[2021-12-02] MEDS: Omnipaque 350 MG/ML 50 ML BTL PO (22:30)
[2021-12-02] MEDS: Breeza Beverage 473 ML BTL PO ×2 (22:30→22:31)
--- NOTE | 2021-12-02 22:30 | W.PM.HP.N ---
Assessment and Plan Assessment and plan (1) Atrial fibrillation with tachycardic ventricular rate: Status: Acute Assessment and plan: Her atrial fibrillation resolved with administration of fluids and she spontaneously converted to sinus tachycardia with a rate of about 110. (2) Anemia: Status: Chronic Assessment and plan: Last hemoglobin before today was 12. 2.3 today. I do not know whether labs were at [facility] during her recent admission. (3) Pre-syncope: Status: Acute Assessment and plan: Etiology of this is unclear. She said she felt white like a ghost. She was hypoxic but I am not sure that explains her whole situation. See below for discussion of her troponins. (4) NSTEMI (non-ST elevated myocardial infarction): Status: Acute Assessment and plan: She has had 2 troponins each over 4400 and 4,500. Her electrocardiogram does not show appear to show anything acute although her electrocardiogram is different than it was in April of this year. Today shows some ST depression of 1 to and aVF. T waves are positive in V1 to V6 but were inverted in April of last year. I am consulting with cardiology at [facility]. (5) LLQ pain: Status: Acute Assessment and plan: A CT of the abdomen is ordered. It is possible she could have diverticulitis. History of Present Illness History of Present Illness Chief Complaint: weakness Narrative: This 71-year-old female came to the hospital today because of weakness and lightheadedness. She recently was at [facility] and had a left shoulder procedure on November 30. She was discharged about 4:30 PM today. On her way home she and her family stop to get some food and she ate half a watch parts grinder and some chips that she began feeling quite pale and weak. She never got into her house after coming back from [facility]. EMS was called and they found her without her oxygen and her O2 saturations were in the 80s. She improved with oxygen supplementation and came here where she was found to be in atrial fibrillation with a rapid ventricular response. She was quite diaphoretic on presentation but was not hypotensive. She said she not been around anyone else has been sick. She lives by herself but was planning on having neighbors and family come to help her while she is recuperating from her shoulder surgery. She needs to keep the left arm in an abduction brace until she is seen again on December 17. She is having some abdominal pain when she coughs but otherwise she has not had any chest pain or shortness of breath. She has been having trouble with her balance or urination. She has a history of atrial fibrillation, heart failure, diabetes and interstitial lung disease. Emergency department evaluated her with laboratory studies, electrocardiogram and chest CT angiogram. Her troponin has been high on 2 measurements but her electrocardiogram does not show any acute myocardial infarction. She did have a myocardial perfusion imaging study August of last year which was normal. She states she has had her coronavirus vaccine and booster. She feels fine at the present time except for the abdominal pain. She states she was fine when she left [facility] this afternoon. She states she did receive a transfusion of blood while at [facility]. Her anticoagulation was not restarted for her atrial fibrillation. Review of Systems Constitutional Constitutional: Denies chills, Denies fever(s), Denies frequent falls, Denies headache(s), Reports malaise and Reports weakness Eyes Eyes: Denies change in vision ENT Ears, Nose, Mouth, and Throat: Denies dysphagia and Denies headache(s) Cardiovascular Cardiovascular: Denies chest pain, Reports rapid heart rate, Denies irregular heart rhythm, Reports palpitations and Denies dyspnea Respiratory Respiratory: Reports cough, Denies dyspnea and Denies wheezing Gastrointestinal Gastrointestinal: Reports abdominal pain, Denies constipation, Denies dysphagia, Denies diarrhea, Denies nausea and Denies vomiting Genitourinary Genitourinary: Denies urinary frequency, Denies difficulty voiding and Denies post void dribbling Neurologic Neurologic: Denies confusion, Denies frequent falls, Denies headache(s), Denies convulsions and Reports weakness Psychiatric Psychiatric: Denies confusion Endocrine Endocrine: Reports palpitations Allergic/Immunologic Allergic/Immunologic: Denies wheezing PFSH All Active Problems (Updated 12/02/21 @ 22:46 by Fabian Lassiter MD) LLQ pain (Acute) Atrial fibrillation with tachycardic ventricular rate (Acute) Anemia (Chronic) Acute dehydration (Acute) Pre-syncope (Acute) Shoulder fracture, left (Acute) Immunoglobulin deficiency (Acute) Chronic pulmonary aspiration (Acute) Anemia (Chronic) Grief (Chronic) brother Nov 2020 Low-level of literacy (Chronic) Palliative care patient (Acute) Orthostatic hypotension (Acute) Acute congestive heart failure (Acute) NSTEMI (non-ST elevated myocardial infarction) (Acute) Shortness of breath (Acute) Syncope (Chronic) Ribs, multiple fractures (Acute) IDDM (insulin dependent diabetes mellitus) (Chronic) Hiatal hernia (Chronic) Acute on chronic congestive heart failure with right ventricular diastolic dysfunction (Acute) Pulmonary fibrosis (Chronic) Renal insufficiency (Chronic) Functional encopresis (Chronic) Palliative care patient (Chronic) Pulmonary hypertension (Chronic) Chronic respiratory failure with hypoxia (Chronic) Advance directive on file (Acute) Internal derangement of right knee (Chronic) Back pain (Chronic) Asthma (Chronic) Osteoporosis (Chronic 03/16/18) Neck pain (Chronic 03/16/18) Migraine (Chronic 04/03/14) Long-term use of high-risk medication (Chronic 03/16/18) Interstitial lung disease (Acute 03/16/18) Pulm: Bertin Gastroesophageal reflux disease without esophagitis (Chronic 03/16/18) Essential hypertension (Chronic 07/17/13) Edema (Chronic 03/16/18) Dyspnea (Chronic 03/16/18) Depressive disorder (Chronic) Cognitive impairment (Chronic 03/16/18) Mild, w/Memory Loss Anxiety (Chronic 03/16/18) Umbilical hernia (Chronic) Type II diabetes mellitus, uncontrolled (Chronic) Total urinary incontinence (Chronic) Shoulder pain (Chronic) left- surgery Post herpetic neuralgia (Chronic 03/16/18) Peripheral neuralgia (Chronic) Medical History (Updated 12/02/21 @ 22:46 by Fabian Lassiter MD) Abdominal pain Acute gastroenteritis (03/16/18) Acute kidney injury (nontraumatic) Acute pneumonitis SYD (acute kidney injury) Anosognosia Asthma Chest wall pain COPD (chronic obstructive pulmonary disease) COVID-19 ruled out by laboratory testing Dehydration Discharge planning issues Discharge planning issues DKA (diabetic ketoacidoses) DKA (diabetic ketoacidoses) DKA (diabetic ketoacidosis) DVT prophylaxis DVT prophylaxis Encounter to establish care Fracture of humerus, proximal, left, closed (05/02/21) History of shingles (03/16/18) Hyperlipemia Inflammatory disorder of digestive tract Insulin dependent diabetes mellitus Metabolic acidosis with normal anion gap and bicarbonate losses Nausea & vomiting 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 History of section Ligation of fallopian tube Thoracoscopic (R)Lung Bx (02/12/18) Family History Mother , aged 81 from dementia, per Elly Diabetes Essential hypertension CHF (congestive heart failure) Heart disease CHF/heart failure Dementia Father , aged 80 Diabetes Essential hypertension CAD (coronary artery disease) Heart disease [place] Hyperlipidemia Stroke Sister , aged 54 Diabetes Personal history of malignant neoplasm Lung Asthma Lung cancer Brother , of mesithelioma aged 62 Diabetes Essential hypertension Personal history of malignant neoplasm Lung, Prostate Hyperlipidemia Asthma Mesothelioma Brother , of PE following knee surgery age 69 Pulmonary embolus with infarction Daughter No problems noted. Son No problems noted. Social History Smoking/Tobacco Use Status: Never Smoking risk assessment performed?: Yes Alcohol Intake: current Alcohol Intake frequency: holidays/special occasions only Details: monthly or less Drug use: Never Substance use type: does not use Adopted: No Caregiver/Support person: No Foster care: No Household members: none Housing: apartment Number of Children: 2 number of grandchildren: 5 Communication Needs: Hard of Hearing and Corrective Lenses Education Level: middle school Do you need help understanding health information?: Always current occupation: retired [employer] Pets and animals: Yes Pets and animals: cat(s) Sexually active: No Do you think of yourself as: straight/heterosexual Current gender identity: female What is your relationship status?: How often do you talk on the phone with friends or family?: three or more times per week How often do you get together with friends or relatives?: three or more times per week How often do you attend sabianist or sikh services?: 1-3 times per year Do you belong to any clubs or organized social groups?: no Panel score (0-1 are the most socially isolated patients): 1 What type of physical activity do you participate in: none and sedentary lifestyle Duration: < 15 minutes/day Frequency: does not exercise Bibi/Evangelical: Adventist Special bibi needs: No Agree to transfusion: Yes Seatbelt use: sometimes Helmet use: No Drive intox or ride w/intox motor bus driver: No Water heater temp set <120 deg: Yes Working smoke detector in home: Yes Fire extinguisher in home: Yes Carbon monox detector in home: Yes Do you feel safe at home: Yes Do you feel safe in your relationship?: Yes Victim of physical abuse: No Victim of emotional abuse: No Victim of sexual abuse: No Would you like helpful sources: No Additional Social history: Recently in the [facility] x 2 mos. Didn't feel she needed to be there. She reports was supposed to be a 2 week stay. She said she did all her own care. She says the staff is stretched thin. She can take care of herself at home just fine. She says her family is more worried about her than they need to be. Meds Allergies and Home Medications Allergies Allergy/AdvReac Type Severity Reaction Status Date / Time aspirin Allergy Unknown HIVES, Verified 12/02/21 18:04 flip out diclofenac Allergy Unknown RASH Verified 12/02/21 18:04 latex Allergy Unknown SKIN Verified 12/02/21 18:04 BREAKDOWN NSAIDS (Non-Steroidal Allergy Unknown HIVES, Verified 12/02/21 18:04 Anti-Inflamma VOMITING morphine AdvReac Unknown VOMITING Verified 12/02/21 18:04 Home Medications Medication Instructions Recorded Confirmed Type Oxygen #1 each 11/29/18 11/24/21 History Wheeled walker with seat and basket #1 ea 02/07/19 11/24/21 Rx Face mask to deliver Oxygen #2 each 04/23/19 11/24/21 Rx pen needle, diabetic 31 gauge x #4 box 08/03/20 11/24/21 Rx 5/16 (Pen Needle) flash glucose scanning reader #1 ea 02/23/21 11/24/21 Rx (FreeStyle Kaye 2 [place]) flash glucose sensor (FreeStyle #1 ea 02/23/21 11/24/21 Rx Kaye 2 Sensor) spironolactone 25 mg tablet 25 mg PO DAILY #30 tab 03/08/21 12/02/21 Rx blood sugar diagnostic (Blood #400 strip 03/10/21 11/24/21 Rx Glucose Test) lancets 28 gauge #400 ea 03/10/21 11/24/21 Rx acetaminophen 325 mg tablet 650 mg PO Q4H PRN PRN #0 tab 03/24/21 12/02/21 Rx (Tylenol) pantoprazole 40 mg tablet,delayed 40 mg PO BID #90 tab 05/14/21 12/02/21 Rx release escitalopram oxalate 20 mg tablet 20 mg PO DAILY #90 tab 05/20/21 12/02/21 Rx ondansetron HCl 4 mg tablet 4 mg PO Q6H 05/25/21 12/02/21 History (Zofran) epinephrine 0.3 mg/0.3 mL 0.3 mg (0.3 mL) IM ONCE PRN #1 ea 05/27/21 12/02/21 Rx injection, auto-injector (EpiPen 2-Gordon) midodrine 10 mg tablet 10 mg PO TID #180 tab 05/27/21 12/02/21 Rx insulin lispro 100 unit/mL 4 - 24 unit (0.04 - 0.24 mL) 06/30/21 12/02/21 Rx subcutaneous pen (Humalog KwikPen SUBCUT AC #15 ml (U-100) Insulin) Oxygen #1 ea 08/16/21 11/24/21 History albuterol sulfate 2.5 mg (3 mL) INHALATION Q4H PRN 08/16/21 12/02/21 Rx #90 ml albuterol sulfate 90 mcg/actuation 2 puff INHALATION Q4H PRN #1 08/16/21 12/02/21 Rx aerosol inhaler (Ventolin HFA) inhaler cholecalciferol (vitamin D3) 1,250 1,250 mcg PO QWEEK 08/16/21 12/02/21 History mcg (50,000 unit) capsule nintedanib 150 mg capsule (Ofev) 150 mg PO Q12H #60 cap 08/16/21 12/02/21 Rx atorvastatin 80 mg tablet 80 mg PO QPM #90 tab 08/23/21 12/02/21 Rx clopidogrel 75 mg tablet 75 mg PO DAILY #90 tab 08/23/21 12/02/21 Rx celecoxib 100 mg capsule 100 mg PO BID #60 cap 09/20/21 12/02/21 Rx digestive no.8-L.acidophilus 50 1 tab PO BID #90 tab 09/20/21 12/02/21 Rx million cell-pectin 100 mg tablet (Digestive Enzyme (acidophilus, pectin, bromelain)) benzonatate 100 mg capsule 100 mg PO TID PRN #30 cap 09/27/21 12/02/21 Rx furosemide 40 mg tablet 40 mg PO DAILY #90 tab 10/27/21 12/02/21 Rx loperamide 2 mg tablet 2 mg PO Q6H PRN #60 tab 11/01/21 12/02/21 Rx (Anti-Diarrheal (loperamide)) multivitamin (Daily Multi-Vitamin) 1 tab PO DAILY 11/01/21 12/02/21 History oxycodone 10 mg tablet 10 mg PO Q4H PRN #100 tab MDD 4 11/01/21 12/02/21 Rx tabs pen needle, diabetic 31 gauge x #1200 ea 11/01/21 11/24/21 Rx 5/16 (BD Ultra-Fine Short Pen Needle) polyethylene glycol 3350 17 17 g PO DAILY 11/01/21 12/02/21 History gram/dose oral powder (Miralax) cyclobenzaprine 5 mg tablet 5 mg PO DAILY PRN #90 tab 11/22/21 12/02/21 Rx lidocaine 5 % topical patch 1 patch TOPICAL DAILY #30 ea 11/24/21 12/02/21 Rx (Lidoderm) insulin glargine 100 unit/mL (3 18 unit SUBCUT .NIGHTLY 12/02/21 12/02/21 History mL) subcutaneous pen (Lantus Solostar U-100 Insulin) Exam Const General: cooperative, comfortable, no acute distress and not ill appearing Nutritional Appearance: overweight Orientation: alert, awake and oriented x3 Neck Neck: normal visual inspection and no JVD Resp Auscultation: clear to auscultation bilaterally, no rales and no rhonchi Cardio Rate: tachycardic Rhythm: regular rhythm Heart Sounds: S1 normal, S2 normal and no murmurs GI Inspection: normal to inspection and non-distended Palpation: soft and tender Other: tender LLQ Skin Lesions: no lesions Extrem Other: Left upper extremity has an abduction splint in place. Her other extremities are normal. There is no peripheral edema. Results Labs Result diagrams: 12/02/21 18:13 12/02/21 18:13 Labs: Laboratory Results - last 24 hr 12/02/21 12/02/21 12/02/21 18:13 18:13 18:13 WBC 12.87 H RBC 2.70 L Hgb 8.3 L Hct 25.9 L MCV 95.9 H MCH 30.7 MCHC 32.0 RDW 15.1 H Plt Count 232 D MPV 10.0 Immature Gran % 0.5 Neutrophils % 80.0 Lymphocytes % 10.3 Monocytes % 5.5 Eosinophils % 3.2 Basophils % 0.5 Nucleated RBC % 0 Absolute Neutrophils 10.30 H Absolute Lymphocytes 1.33 Absolute Monocytes 0.71 Absolute Eosinophils 0.41 Absolute Basophils 0.06 PT INR APTT VBG pH 7.35 VBG pCO2 47 VBG pO2 27 VBG HCO3 26 VBG Total CO2 25 VBG O2 Saturation 49 VBG Base Excess 1 Sodium 136 Potassium 3.7 Chloride 100 Carbon Dioxide 26.0 Anion Gap 10.0 BUN 16 Creatinine 1.5 H Estimated GFR/1.73 m2 34.33 Glucose 271 H Calcium 8.6 Total Bilirubin 0.8 AST 63 H ALT 16 Alkaline Phosphatase 89 Troponin I 4436 H* NT-Pro-B Natriuret Pep Total Protein 6.3 L Albumin 2.7 L Urine Color Urine Clarity Urine pH Ur Specific [place] Urine Protein Urine Ketones Urine Blood Urine Nitrite Urine Bilirubin Urine Urobilinogen Ur Leukocyte Esterase Urine Glucose COVID-19 Source SARS-CoV-2 (PCR) Patient ABO/Rh Antibody Screen 12/02/21 12/02/21 12/02/21 18:13 18:30 18:30 WBC RBC Hgb Hct MCV MCH MCHC RDW Plt Count MPV Immature Gran % Neutrophils % Lymphocytes % Monocytes % Eosinophils % Basophils % Nucleated RBC % Absolute Neutrophils Absolute Lymphocytes Absolute Monocytes Absolute Eosinophils Absolute Basophils PT 10.2 INR 1.0 APTT 27.1 VBG pH VBG pCO2 VBG pO2 VBG HCO3 VBG Total CO2 VBG O2 Saturation VBG Base Excess Sodium Potassium Chloride Carbon Dioxide Anion Gap BUN Creatinine Estimated GFR/1.73 m2 Glucose Calcium Total Bilirubin AST ALT Alkaline Phosphatase Troponin I NT-Pro-B Natriuret Pep 6466 H Total Protein Albumin Urine Color Urine Clarity Urine pH Ur Specific [place] Urine Protein Urine Ketones Urine Blood Urine Nitrite Urine Bilirubin Urine Urobilinogen Ur Leukocyte Esterase Urine Glucose COVID-19 Source SARS-CoV-2 (PCR) Patient ABO/Rh A Positive Antibody Screen NEGATIVE 12/02/21 12/02/2112/02/22 19:10 20:30 21:40 WBC RBC Hgb Hct MCV MCH MCHC RDW Plt Count MPV Immature Gran % Neutrophils % Lymphocytes % Monocytes % Eosinophils % Basophils % Nucleated RBC % Absolute Neutrophils Absolute Lymphocytes Absolute Monocytes Absolute Eosinophils Absolute Basophils PT INR APTT VBG pH VBG pCO2 VBG pO2 VBG HCO3 VBG Total CO2 VBG O2 Saturation VBG Base Excess Sodium Potassium Chloride Carbon Dioxide Anion Gap BUN Creatinine Estimated GFR/1.73 m2 Glucose Calcium Total Bilirubin AST ALT Alkaline Phosphatase Troponin I 4517 H* NT-Pro-B Natriuret Pep Total Protein Albumin Urine Color Yellow Urine Clarity Clear Urine pH 5.5 Ur Specific [place] 1.015 Urine Protein Negative Urine Ketones Negative Urine Blood Negative Urine Nitrite Negative Urine Bilirubin Negative Urine Urobilinogen 0.2 Ur Leukocyte Esterase Negative Urine Glucose Negative COVID-19 Source Nasal/Nares SARS-CoV-2 (PCR) Negative Patient ABO/Rh Antibody Screen Last Vital Signs Temp 36.6 C 12/02/21 22:00 Pulse 105 H 12/02/21 22:00 Resp 21 12/02/21 22:00 BP 116/53 L 12/02/21 20:02 Pulse Ox 98 12/02/21 22:00
[2021-12-02] MEDS: oxyCODONE 10 MG TAB PO (23:26)
[2021-12-02] MEDS: Normal Saline Flush 10 ML SYR IVP (23:27)
[2021-12-03] VITALS (95 sets, daily range): BP systolic 79–156; BP diastolic 31–103; PULSE 73–114; RESP 14–28; TEMP 35.8–37.8; O2SAT 84–100
--- NOTE | 2021-12-03 00:23 | DI.VRAD_ITS ---
PROCEDURE INFORMATION: Exam: CT Abdomen And Pelvis With Contrast Exam date and time: 12/02/2021 21:35 Age: 71 years old Clinical indication: Other: Llq pain TECHNIQUE: Imaging protocol: Computed tomography of the abdomen and pelvis with contrast. Radiation optimization: All CT scans at this facility use at least one of these dose optimization techniques: automated exposure control; mA and/or kV adjustment per patient size (includes targeted exams where dose is matched to clinical indication); or iterative reconstruction. Contrast material: OMNIPAQUE 350; Contrast volume: 100 ml; Contrast route: INTRAVENOUS (IV); Other contrast: Oral, omnipaque 350, 900; COMPARISON: CT CHEST/ABD/PEL WO 12/04/2020 19:54 FINDINGS: Lungs: Regarding the lung bases, please see same day CT thorax. Liver: No mass. Gallbladder and bile ducts: No calcified stones. No ductal dilation. Pancreas: No ductal dilation. No masses. Spleen: No splenomegaly or focal lesions. Adrenal glands: No mass. Kidneys and ureters: No renal masses or hydronephrosis bilaterally. Stomach and bowel: Mild amount of contrast material in the distal esophagus could reflect dysmotility or mild reflux.Tiny hiatal hernia. Minor colonic diverticulosis. No diverticulitis. No focal pathology in the small bowel. Appendix: No evidence of appendicitis. Intraperitoneal space: No free air. No significant fluid collection. Vasculature: No abdominal aortic aneurysm. Lymph nodes: No significantly enlarged lymph nodes. Urinary bladder: [place] catheter in a decompressed urinary bladder. Reproductive: Unremarkable as visualized. Bones/joints: Nonacute appearing mild anterior compression deformity of L1. No acute fracture or subluxation. Soft tissues: No suspicious lesions. IMPRESSION: 1. No acute findings. 2. Incidental findings as described. Dictated and Authenticated by: Leila Fernandes MD. Ordering:LESIA Peralta MD
[2021-12-03] MEDS: Acetaminophen 325 MG TAB 650 MG PO ×3 (00:42→20:28)
[2021-12-03 01:04] LABS: Troponin I 5428 ng/L (<or=60)
[2021-12-03] MEDS: Insulin Glargine 300 UNITS/3 ML PEN 18 UNITS SC ×2 (01:05→21:44)
[2021-12-03] MEDS: Insulin Aspart 300 UNITS/3 ML PEN SC ×5 (01:08→21:43)
[2021-12-03] MEDS: Lactated Ringers 1,000 ML 250 ML IV (02:15)
[2021-12-03 06:36] LABS: Abs Immature Grans 0.03 10^3/uL (0.0-0.06); Absolute Basophil Count 0.03 10^3/uL (0.0-0.2); Absolute Eosinophil Count 0.41 10^3/uL (0.0-0.7); Absolute Lymphocyte Count 1.58 10^3/uL (1.2-3.4); Absolute Monocyte Count 0.58 10^3/uL (0.1-0.8); Basophils % 0.3; Eosinophils % 4.7; HCT 22.1 % (36.0-46.0); HGB 7.2 g/dL (11.2-15.7); Immature Grans % 0.3; Lymphocytes % 18.1; MCH 30.4 pg (27.0-33.0); MCHC 32.6 % (32.0-36.0); MCV 93.2 fL (80-95); MPV 10.2 fL (8.0-11.0); Monocytes % 6.7; Neutrophils % 69.9; Nucleated RBC 0 %; RBC 2.37 10^6/uL (3.93-5.22); RDW 14.7 % (11.7-14.6); RDW-SD 50.1 fL; WBC 8.71 10^3/uL (4.4-10.8)
--- NOTE | 2021-12-03 06:43 | NUR.NOTE ---
Nursing Note: Patient was taken for CT scan from 23:35 till 00:10 during the shift.
[2021-12-03 06:46] LABS: Absolute Neutrophil Count 6.09 10^3/uL (1.2-6.7)
[2021-12-03 06:58] LABS: Troponin I 6095 ng/L (<or=60)
[2021-12-03 07:06] LABS: Diff Comment Diff Reviewed; Hypochromasia 2+
--- NOTE | 2021-12-03 07:30 | RT.EKG_ITS ---
APPROVED REPORT Exam: Resting ECG Reason for Exam: NSTEMI Patient Location: I HR:98 bpm ECG Measurements Heart Rate 98 AXIS VT 183 P 48 QRSd 96 QRS -3 QT 383 T 115 QTc 490 Conclusion Sinus rhythm...normal P axis, V-rate 60- 99 Borderline repol abnormality, diffuse leads...ST dep, T flat/neg, ant/lat/inf
[2021-12-03 08:32] LABS: Nucleated RBC 0 %
--- NOTE | 2021-12-03 08:41 | CCONE_ITS ---
Date of service: 12/03/21 Time of Service: 08:42 Assessment and Plan Assessment and plan (1) Anemia: Status: Chronic (2) NSTEMI (non-ST elevated myocardial infarction): Status: Acute Assessment and plan: The patient has experienced a recurrent non-ST elevation myocardial infarction, again likely type II due to demand ischemia. She has a lot of reasons for demand ischemia, including anemia, atrial fibrillation (new diagnosis) chronic respiratory insufficiency. The patient's presentation and recommendations were discussed with Dr. Weaver and Dr. Morelos Patient to be transfused, probably to hemoglobin of 9 given her myocardial ischemic event I would defer anticoagulation for a week or 2, given her surgery and acute blood loss. I see no indication to repeat her myocardial perfusion imaging study I see no urgent indication to try and repeat an echo. Prior study was technically very suboptimal and the patient is not able to be positioned currently because of her left shoulder postoperative state I would consider starting a beta-imer if this is not contraindicated by her pulmonary status Thank you for the opportunity to participate in the care of this patient (3) Atrial fibrillation with tachycardic ventricular rate: Status: Acute (4) Chronic respiratory failure with hypoxia: Status: Chronic (5) Shoulder pain: Status: Chronic History of Present Illness History of Present Illness Chief Complaint: Weakness Narrative: This is a 71-year-old woman with multiple medical problems. She was recently hospitalized at [facility] for a reverse shoulder arthroplasty. Her postoperative course was complicated by blood loss anemia and she required transfusions and pressors. She was discharged from [facility] and apparently on her way home felt poorly, was weak and presented to the emergency room here in [place]. She was found to be anemic, and also had transient atrial fibrillation. She did not have chest discomfort. She converted to sinus rhythm after administration of intravenous fluids. Her EKG showed only minor nondiagnostic ST-T abnormalities, both with the atrial fibrillation and subsequently in sinus rhythm. Her troponin was elevated. She has had prior non-ST elevation myocardial infarction, felt to be type II. She had a myocardial perfusion imaging study with pharmacologic stress in August 2021, negative for myocardial ischemia. This was performed in part because of preoperative evaluation for the shoulder surgery. She has had echocardiograms done. The last of these was described as very technically limited but disclosing normal left ventricular systolic function and no apparent valvular disease The patient has interstitial lung disease, sleep apnea She is complaining of pain in her left shoulder. She has abdominal pain when she coughs. Her cough is loose but not specifically productive. She does not describe any symptoms suggestive of angina. Her current telemetry shows frequent atrial premature beats superimposed on sinus rhythm rate approximately 100 PFSH All Active Problems LLQ pain (Acute) Atrial fibrillation with tachycardic ventricular rate (Acute) Anemia (Chronic) Acute dehydration (Acute) Pre-syncope (Acute) Shoulder fracture, left (Acute) Immunoglobulin deficiency (Acute) Chronic pulmonary aspiration (Acute) Anemia (Chronic) Grief (Chronic) brother Nov 2020 Low-level of literacy (Chronic) Palliative care patient (Acute) Orthostatic hypotension (Acute) Acute congestive heart failure (Acute) NSTEMI (non-ST elevated myocardial infarction) (Acute) Shortness of breath (Acute) Syncope (Chronic) Ribs, multiple fractures (Acute) IDDM (insulin dependent diabetes mellitus) (Chronic) Hiatal hernia (Chronic) Acute on chronic congestive heart failure with right ventricular diastolic dysfunction (Acute) Pulmonary fibrosis (Chronic) Renal insufficiency (Chronic) Functional encopresis (Chronic) Palliative care patient (Chronic) Pulmonary hypertension (Chronic) Chronic respiratory failure with hypoxia (Chronic) Advance directive on file (Acute) Internal derangement of right knee (Chronic) Back pain (Chronic) Asthma (Chronic) Osteoporosis (Chronic 03/16/18) Neck pain (Chronic 03/16/18) Migraine (Chronic 04/03/14) Long-term use of high-risk medication (Chronic 03/16/18) Interstitial lung disease (Acute 03/16/18) Pulm: Bertin Gastroesophageal reflux disease without esophagitis (Chronic 03/16/18) Essential hypertension (Chronic 07/17/13) Edema (Chronic 03/16/18) Dyspnea (Chronic 03/16/18) Depressive disorder (Chronic) Cognitive impairment (Chronic 03/16/18) Mild, w/Memory Loss Anxiety (Chronic 03/16/18) Umbilical hernia (Chronic) Type II diabetes mellitus, uncontrolled (Chronic) Total urinary incontinence (Chronic) Shoulder pain (Chronic) left- surgery Post herpetic neuralgia (Chronic 03/16/18) Peripheral neuralgia (Chronic) Medical History Abdominal pain Acute gastroenteritis (03/16/18) Acute kidney injury (nontraumatic) Acute pneumonitis SYD (acute kidney injury) Anosognosia Asthma Chest wall pain COPD (chronic obstructive pulmonary disease) COVID-19 ruled out by laboratory testing Dehydration Discharge planning issues Discharge planning issues DKA (diabetic ketoacidoses) DKA (diabetic ketoacidoses) DKA (diabetic ketoacidosis) DVT prophylaxis DVT prophylaxis Encounter to establish care Fracture of humerus, proximal, left, closed (05/02/21) History of shingles (03/16/18) Hyperlipemia Inflammatory disorder of digestive tract Insulin dependent diabetes mellitus Metabolic acidosis with normal anion gap and bicarbonate losses Nausea & vomiting 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 History of section Ligation of fallopian tube Thoracoscopic (R)Lung Bx (02/12/18) Family History Mother , aged 81 from dementia, per Elly Diabetes Essential hypertension CHF (congestive heart failure) Heart disease CHF/heart failure Dementia Father , aged 80 Diabetes Essential hypertension CAD (coronary artery disease) Heart disease [place] Hyperlipidemia Stroke Sister , aged 54 Diabetes Personal history of malignant neoplasm Lung Asthma Lung cancer Brother , of mesithelioma aged 62 Diabetes Essential hypertension Personal history of malignant neoplasm Lung, Prostate Hyperlipidemia Asthma Mesothelioma Brother , of PE following knee surgery age 69 Pulmonary embolus with infarction Daughter No problems noted. Son No problems noted. Social History Smoking/Tobacco Use Status: Never Smoking risk assessment performed?: Yes Alcohol Intake: current Alcohol Intake frequency: holidays/special occasions only Details: monthly or less Drug use: Never Substance use type: does not use Adopted: No Caregiver/Support person: No Foster care: No Household members: none Housing: apartment Number of Children: 2 number of grandchildren: 5 Communication Needs: Hard of Hearing and Corrective Lenses Education Level: middle school Do you need help understanding health information?: Always current occupation: retired [employer] Pets and animals: Yes Pets and animals: cat(s) Sexually active: No Do you think of yourself as: straight/heterosexual Current gender identity: female What is your relationship status?: How often do you talk on the phone with friends or family?: three or more times per week How often do you get together with friends or relatives?: three or more times per week How often do you attend islam or mu-ism services?: 1-3 times per year Do you belong to any clubs or organized social groups?: no Panel score (0-1 are the most socially isolated patients): 1 What type of physical activity do you participate in: none and sedentary lifest yle Duration: < 15 minutes/day Frequency: does not exercise Bibi/Jew: Moravian Special bibi needs: No Agree to transfusion: Yes Seatbelt use: sometimes Helmet use: No Drive intox or ride w/intox sales driver: No Water heater temp set <120 deg: Yes Working smoke detector in home: Yes Fire extinguisher in home: Yes Carbon monox detector in home: Yes Do you feel safe at home: Yes Do you feel safe in your relationship?: Yes Victim of physical abuse: No Victim of emotional abuse: No Victim of sexual abuse: No Would you like helpful sources: No Additional Social history: Recently in the [facility] x 2 mos. Didn't feel she needed to be there. She reports was supposed to be a 2 week stay. She said she did all her own care. She says the staff is stretched thin. She can take care of herself at home just fine. She says her family is more worried about her than they need to be. Exam Narrative Exam Narrative: Obese woman looks stated age no acute distress Patient was not examined Results Last Vital Signs Temp 36.8 C 12/03/21 04:00 Pulse 82 12/03/21 06:01 Resp 20 12/03/21 07:20 BP 117/49 L 12/03/21 06:01 Pulse Ox 95 12/03/21 07:00 Labs Result diagrams: 12/03/21 06:03 12/02/21 18:13 Labs: Laboratory Results - last 24 hr 12/02/21 12/02/21 12/02/21 18:13 18:13 18:13 WBC 12.87 H RBC 2.70 L Hgb 8.3 L Hct 25.9 L MCV 95.9 H MCH 30.7 MCHC 32.0 RDW 15.1 H Plt Count 232 D MPV 10.0 Immature Gran % 0.5 Neutrophils % 80.0 Lymphocytes % 10.3 Monocytes % 5.5 Eosinophils % 3.2 Basophils % 0.5 Nucleated RBC % 0 Absolute Neutrophils 10.30 H Absolute Lymphocytes 1.33 Absolute Monocytes 0.71 Absolute Eosinophils 0.41 Absolute Basophils 0.06 Hypochromasia PT INR APTT VBG pH 7.35 VBG pCO2 47 VBG pO2 27 VBG HCO3 26 VBG Total CO2 25 VBG O2 Saturation 49 VBG Base Excess 1 Sodium 136 Potassium 3.7 Chloride 100 Carbon Dioxide 26.0 Anion Gap 10.0 BUN 16 Creatinine 1.5 H Estimated GFR/1.73 m2 34.33 Glucose 271 H Calcium 8.6 Total Bilirubin 0.8 AST 63 H ALT 16 Alkaline Phosphatase 89 Troponin I 4436 H* NT-Pro-B Natriuret Pep Total Protein 6.3 L Albumin 2.7 L Urine Color Urine Clarity Urine pH Ur Specific [place] Urine Protein Urine Ketones Urine Blood Urine Nitrite Urine Bilirubin Urine Urobilinogen Ur Leukocyte Esterase Urine Glucose COVID-19 Source SARS-CoV-2 (PCR) Patient ABO/Rh Antibody Screen Crossmatch 12/02/21 12/02/21 12/02/21 18:13 18:30 18:30 WBC RBC Hgb Hct MCV MCH MCHC RDW Plt Count MPV Immature Gran % Neutrophils % Lymphocytes % Monocytes % Eosinophils % Basophils % Nucleated RBC % Absolute Neutrophils Absolute Lymphocytes Absolute Monocytes Absolute Eosinophils Absolute Basophils Hypochromasia PT 10.2 INR 1.0 APTT 27.1 VBG pH VBG pCO2 VBG pO2 VBG HCO3 VBG Total CO2 VBG O2 Saturation VBG Base Excess Sodium Potassium Chloride Carbon Dioxide Anion Gap BUN Creatinine Estimated GFR/1.73 m2 Glucose Calcium Total Bilirubin AST ALT Alkaline Phosphatase Troponin I NT-Pro-B Natriuret Pep 6466 H Total Protein Albumin Urine Color Urine Clarity Urine pH Ur Specific [place] Urine Protein Urine Ketones Urine Blood Urine Nitrite Urine Bilirubin Urine Urobilinogen Ur Leukocyte Esterase Urine Glucose COVID-19 Source SARS-CoV-2 (PCR) Patient ABO/Rh A Positive Antibody Screen NEGATIVE Crossmatch See Detail 02/08/1312/02/21 12/02/21 19:10 20:30 21:40 WBC RBC Hgb Hct MCV MCH MCHC RDW Plt Count MPV Immature Gran % Neutrophils % Lymphocytes % Monocytes % Eosinophils % Basophils % Nucleated RBC % Absolute Neutrophils Absolute Lymphocytes Absolute Monocytes Absolute Eosinophils Absolute Basophils Hypochromasia PT INR APTT VBG pH VBG pCO2 VBG pO2 VBG HCO3 VBG Total CO2 VBG O2 Saturation VBG Base Excess Sodium Potassium Chloride Carbon Dioxide Anion Gap BUN Creatinine Estimated GFR/1.73 m2 Glucose Calcium Total Bilirubin AST ALT Alkaline Phosphatase Troponin I 4517 H* NT-Pro-B Natriuret Pep Total Protein Albumin Urine Color Yellow Urine Clarity Clear Urine pH 5.5 Ur Specific [place] 1.015 Urine Protein Negative Urine Ketones Negative Urine Blood Negative Urine Nitrite Negative Urine Bilirubin Negative Urine Urobilinogen 0.2 Ur Leukocyte Esterase Negative Urine Glucose Negative COVID-19 Source Nasal/Nares SARS-CoV-2 (PCR) Negative Patient ABO/Rh Antibody Screen Crossmatch 12/03/21 12/03/21 12/03/21 00:38 06:03 06:03 WBC 8.71 D RBC 2.37 L Hgb 7.2 L Hct 22.1 L MCV 93.2 MCH 30.4 MCHC 32.6 RDW 14.7 H Plt Count MPV 10.2 Immature Gran % 0.3 Neutrophils % 69.9 Lymphocytes % 18.1 Monocytes % 6.7 Eosinophils % 4.7 Basophils % 0.3 Nucleated RBC % 0 Absolute Neutrophils 6.09 Absolute Lymphocytes 1.58 Absolute Monocytes 0.58 Absolute Eosinophils 0.41 Absolute Basophils 0.03 Hypochromasia 2+ PT INR APTT VBG pH VBG pCO2 VBG pO2 VBG HCO3 VBG Total CO2 VBG O2 Saturation VBG Base Excess Sodium Potassium Chloride Carbon Dioxide Anion Gap BUN Creatinine Estimated GFR/1.73 m2 Glucose Calcium Total Bilirubin AST ALT Alkaline Phosphatase Troponin I 5428 H* 6095 H* NT-Pro-B Natriuret Pep Total Protein Albumin Urine Color Urine Clarity Urine pH Ur Specific [place] Urine Protein Urine Ketones Urine Blood Urine Nitrite Urine Bilirubin Urine Urobilinogen Ur Leukocyte Esterase Urine Glucose COVID-19 Source SARS-CoV-2 (PCR) Patient ABO/Rh Antibody Screen Crossmatch
[2021-12-03 08:46] LABS: Abs Immature Grans 0.04 10^3/uL (0.0-0.06); Absolute Basophil Count 0.03 10^3/uL (0.0-0.2); Absolute Eosinophil Count 0.36 10^3/uL (0.0-0.7); Absolute Lymphocyte Count 1.26 10^3/uL (1.2-3.4); Absolute Monocyte Count 0.54 10^3/uL (0.1-0.8); Basophils % 0.3; Eosinophils % 3.7; HCT 26.5 % (36.0-46.0); Immature Grans % 0.4; Lymphocytes % 12.8; MCH 30.5 pg (27.0-33.0); MCHC 32.8 % (32.0-36.0); Monocytes % 5.5; Neutrophils % 77.3; RBC 2.85 10^6/uL (3.93-5.22); RDW 14.7 % (11.7-14.6); RDW-SD 50.6 fL; WBC 9.86 10^3/uL (4.4-10.8)
[2021-12-03 08:47] LABS: Absolute Neutrophil Count 7.62 10^3/uL (1.2-6.7)
[2021-12-03 08:48] LABS: Anion Gap 8.7 mmol/L (3-11); BUN 13 mg/dL (7-18); CO2 27.3 mmol/L (21.0-32.0); CREATININE 1.2 mg/dL (0.55-1.02); Calcium 8.3 mg/dL (8.5-10.1); Chloride 103 mmol/L (98-107); Estimated GFR 44.41 (mL/min/1.73m2); Glucose 212 mg/dL (74-106); LDH 309 U/L (81-234); Potassium 3.4 mmol/L (3.5-5.1); Sodium 139 mmol/L (136-145)
[2021-12-03 08:53] LABS: HGB 8.7 g/dL (11.2-15.7)
[2021-12-03 08:57] LABS: Diff Comment Diff Reviewed; Hypochromasia 2+; Polychromasia Present
[2021-12-03] MEDS: Polyethylene Glycol 3350 17 GM PACKET PO (09:32)
[2021-12-03] MEDS: Spironolactone 25 MG TAB PO (09:32)
[2021-12-03] MEDS: Escitalopram 20 MG TAB PO (09:32)
[2021-12-03] MEDS: Midodrine 2.5 MG TAB 10 MG PO ×3 (09:32→19:45)
[2021-12-03] MEDS: Lidocaine 5% Patch 1 PATCH TP (09:32)
[2021-12-03] MEDS: Furosemide 40 MG TAB 20 MG PO (09:33)
--- NOTE | 2021-12-03 09:48 | PUCC_ITS ---
General Date of Service Date of service: 12/03/21 Time of Service: 08:15 Reason for Admission to ICU: A.fib RVR, anemia, NSTEMI Assessment and Plan Assessment and plan (1) LLQ pain: Status: Acute (2) Atrial fibrillation with tachycardic ventricular rate: Status: Acute (3) Anemia: Status: Chronic (4) Immunoglobulin deficiency: Status: Acute (5) Chronic pulmonary aspiration: Status: Acute Qualifiers: Encounter type: subsequent encounter Qualified Code(s): T17.908D - Uns pecified foreign body in respiratory tract, part unspecified causing other injury, subsequent encounter (6) NSTEMI (non-ST elevated myocardial infarction): Status: Acute (7) Shortness of breath: Status: Acute (8) IDDM (insulin dependent diabetes mellitus): Status: Chronic (9) Pulmonary hypertension: Status: Chronic (10) Chronic respiratory failure with hypoxia: Status: Chronic (11) Shoulder pain: Status: Chronic Assessment and plan: This is a 71 yo female I know well from treated her ILD who is admitted to ICU for A.fib with RVR, demand ischemia, abdominal pain and left shoulder pain (in the setting of recent surgery). She was feeling weak and lightheaded after her surgery discharge [place] [facility] and ultimately presented to the ED and found to be in A.fib and anemic. She is receiving a unit of blood given her demand ischemia and her A. fib was treated with fluid boluses. There is a question of an immunedeficiency and is currently being worked up for this as an outpatient. Additionally our plan was to hold OFEV for 1 week after her surgery as it can alter wound healing (techincally is an immunosuppresant). Recommendations Pulmonary: Chronic hypoxic respiratory failure - continue O2 supplementation for O2 sats >92% in setting of anemia and demand ischemia - baseline O2 is 2LPM at rest and 4LPM with exertion - continue home albuterol neb and HFA RODRIGO - continue home CPAP if possible - if unable to be brought in then I have ordered CPAP for tonight [id number] Chronic aspiration with hiatal hernia - aspiration precautions - continue home PPI Progressive ILD - will continue to hold OFEV until over 1 week out of surgery Cardiac: Demand Ischemia - cardiology was consulted and appreciate recommendations - no anticoagulation given recent surgery and anemia - no further intervention - trops have peacked, no need to continue trending A. fib with RVR - is being started on metoprolol 12.5 bid and agree with this rec - again no A/C given anemia and recent surgery - would discontinue IVF Renal: SYD - in the setting of dehydration and A. fib, now resolved. - good UOP I&O: Intake & Output 11/30/21 12/01/21 12/02/21 12/03/21 23:59 23:59 23:59 23:59 Intake Total 1975 / 1975 884.583 / 884.583 Output Total 1450 / 1450 1200 / 1200 Balance 526 / 526 -315.417 / -315.417 Weight 80 kg 77.5 kg Daily Fluid Goal:: even GI Nutrition: PO diet ok Abdominal Pain - CT finds diverticulosis with no diverticulitis - has chronic delayed gastric emptying and issues with vominting, nausea - can consider home Zofran Date of Last Bowel Movement: 12/02/21 Infectious Disease: No acute concerns Hematologic: Anemia - plan for 1 UPRBC due to NSTEMI and symptomatic anemia - recommend discussing case with ortho re: possibility for a capsular bleed? Neurologic: No acute concerns Endocrine: Diabetes - continue home insuline regimen Lines: PIV Prophylaxis: SCD - if stable Hb tomorrow then recommend starting chemical DVT ppx tomorrow On PPI at home - continue Code Status: Resuscitation Status Full Code Subjective Critical and life-threatening events over the past 24 hours: This is a 71 yo female well known to me whom I treat for progressive ILD with OFEV, working up a potential immunodeficiency and for chronic aspiration. She had a shoulder surgery on Nov 30 at [facility] and shortly after discharge she developed weakness and lightheadedness. She was found to be in A.fib with RVR and had quite elevated trops to 4500. Her EKG shows non specific ST-T wave changes. She does have a recent MPI that was negative. She was treated with fluid boluses. She was also found to be anemic with a significantly lower value than previous. Cardiology was consulted and feels as though this is a demand ischemia in the setting of A.fib and anemia. On my assessment she complains of abdominal pain and left shoulder pain. He breathing is stable and she has no chest pain. Exam Const General: no acute distress Nutritional Appearance: well nourished [facility] Head: normocephalic Ears: external ears normal and no periauricular adenopathy General nose exam: nasal mucous membranes and turbinates normal Face and sinus: sinuses nontender Mouth: oropharynx normal and moist mucous membranes Eyes General: appearance normal, both eyes and all related structures Pupils: PERRL Neck Neck: normal visual inspection and no lymphadenopathy Chest Chest: normal inspection of the chest Resp Effort & Inspection: normal respiratory effort Auscultation: rales, no rhonchi and no wheezes Most Recent VS/Results Last Vital Signs Temp 36.8 C 12/03/21 04:00 Pulse 82 12/03/21 06:01 Resp 20 12/03/21 07:20 BP 117/49 L 12/03/21 06:01 Pulse Ox 95 12/03/21 07:00 Laboratory Results - last 24 hr 12/02/21 12/02/21 12/02/21 18:13 18:13 18:13 WBC 12.87 H RBC 2.70 L Hgb 8.3 L Hct 25.9 L MCV 95.9 H MCH 30.7 MCHC 32.0 RDW 15.1 H Plt Count 232 D MPV 10.0 Immature Gran % 0.5 Neutrophils % 80.0 Lymphocytes % 10.3 Monocytes % 5.5 Eosinophils % 3.2 Basophils % 0.5 Nucleated RBC % 0 Absolute Neutrophils 10.30 H Absolute Lymphocytes 1.33 Absolute Monocytes 0.71 Absolute Eosinophils 0.41 Absolute Basophils 0.06 RBC Morphology Polychromasia Hypochromasia PT INR APTT VBG pH 7.35 VBG pCO2 47 VBG pO2 27 VBG HCO3 26 VBG Total CO2 25 VBG O2 Saturation 49 VBG Base Excess 1 Sodium 136 Potassium 3.7 Chloride 100 Carbon Dioxide 26.0 Anion Gap 10.0 BUN 16 Creatinine 1.5 H Estimated GFR/1.73 m2 34.33 Glucose 271 H Calcium 8.6 Total Bilirubin 0.8 AST 63 H ALT 16 Alkaline Phosphatase 89 Lactate Dehydrogenase Troponin I 4436 H* NT-Pro-B Natriuret Pep Total Protein 6.3 L Albumin 2.7 L Urine Color Urine Clarity Urine pH Ur Specific [place] Urine Protein Urine Ketones Urine Blood Urine Nitrite Urine Bilirubin Urine Urobilinogen Ur Leukocyte Esterase Urine Glucose COVID-19 Source SARS-CoV-2 (PCR) Patient ABO/Rh Antibody Screen Crossmatch 12/02/21 12/02/21 12/02/21 18:13 18:30 18:30 WBC RBC Hgb Hct MCV MCH MCHC RDW Plt Count MPV Immature Gran % Neutrophils % Lymphocytes % Monocytes % Eosinophils % Basophils % Nucleated RBC % Absolute Neutrophils Absolute Lymphocytes Absolute Monocytes Absolute Eosinophils Absolute Basophils RBC Morphology Polychromasia Hypochromasia PT 10.2 INR 1.0 APTT 27.1 VBG pH VBG pCO2 VBG pO2 VBG HCO3 VBG Total CO2 VBG O2 Saturation VBG Base Excess Sodium Potassium Chloride Carbon Dioxide Anion Gap BUN Creatinine Estimated GFR/1.73 m2 Glucose Calcium Total Bilirubin AST ALT Alkaline Phosphatase Lactate Dehydrogenase Troponin I NT-Pro-B Natriuret Pep 6466 H Total Protein Albumin Urine Color Urine Clarity Urine pH Ur Specific [place] Urine Protein Urine Ketones Urine Blood Urine Nitrite Urine Bilirubin Urine Urobilinogen Ur Leukocyte Esterase Urine Glucose COVID-19 Source SARS-CoV-2 (PCR) Patient ABO/Rh A Positive Antibody Screen NEGATIVE Crossmatch See Detail 12/02/21 12/02/21 12/02/21 19:10 20:30 21:40 WBC RBC Hgb Hct MCV MCH MCHC RDW Plt Count MPV Immature Gran % Neutrophils % Lymphocytes % Monocytes % Eosinophils % Basophils % Nucleated RBC % Absolute Neutrophils Absolute Lymphocytes Absolute Monocytes Absolute Eosinophils Absolute Basophils RBC Morphology Polychromasia Hypochromasia PT INR APTT VBG pH VBG pCO2 VBG pO2 VBG HCO3 VBG Total CO2 VBG O2 Saturation VBG Base Excess Sodium Potassium Chloride Carbon Dioxide Anion Gap BUN Creatinine Estimated GFR/1.73 m2 Glucose Calcium Total Bilirubin AST ALT Alkaline Phosphatase Lactate Dehydrogenase Troponin I 4517 H* NT-Pro-B Natriuret Pep Total Protein Albumin Urine Color Yellow Urine Clarity Clear Urine pH 5.5 Ur Specific [place] 1.015 Urine Protein Negative Urine Ketones Negative Urine Blood Negative Urine Nitrite Negative Urine Bilirubin Negative Urine Urobilinogen 0.2 Ur Leukocyte Esterase Negative Urine Glucose Negative COVID-19 Source Nasal/Nares SARS-CoV-2 (PCR) Negative Patient ABO/Rh Antibody Screen Crossmatch 12/03/21 12/03/21 12/03/21 00:38 06:03 06:03 WBC 8.71 D RBC 2.37 L Hgb 7.2 L Hct 22.1 L MCV 93.2 MCH 30.4 MCHC 32.6 RDW 14.7 H Plt Count MPV 10.2 Immature Gran % 0.3 Neutrophils % 69.9 Lymphocytes % 18.1 Monocytes % 6.7 Eosinophils % 4.7 Basophils % 0.3 Nucleated RBC % 0 Absolute Neutrophils 6.09 Absolute Lymphocytes 1.58 Absolute Monocytes 0.58 Absolute Eosinophils 0.41 Absolute Basophils 0.03 RBC Morphology Polychromasia Hypochromasia 2+ PT INR APTT VBG pH VBG pCO2 VBG pO2 VBG HCO3 VBG Total CO2 VBG O2 Saturation VBG Base Excess Sodium Potassium Chloride Carbon Dioxide Anion Gap BUN Creatinine Estimated GFR/1.73 m2 Glucose Calcium Total Bilirubin AST ALT Alkaline Phosphatase Lactate Dehydrogenase Troponin I 5428 H* 6095 H* NT-Pro-B Natriuret Pep Total Protein Albumin Urine Color Urine Clarity Urine pH Ur Specific [place] Urine Protein Urine Ketones Urine Blood Urine Nitrite Urine Bilirubin Urine Urobilinogen Ur Leukocyte Esterase Urine Glucose COVID-19 Source SARS-CoV-2 (PCR) Patient ABO/Rh Antibody Screen Crossmatch 12/03/21 12/03/21 06:03 08:20 WBC 9.86 RBC 2.85 L Hgb 8.7 L Hct 26.5 L MCV 93.0 MCH 30.5 MCHC 32.8 RDW 14.7 H Plt Count MPV Immature Gran % 0.4 Neutrophils % 77.3 Lymphocytes % 12.8 Monocytes % 5.5 Eosinophils % 3.7 Basophils % 0.3 Nucleated RBC % 0 Absolute Neutrophils 7.62 H Absolute Lymphocytes 1.26 Absolute Monocytes 0.54 Absolute Eosinophils 0.36 Absolute Basophils 0.03 RBC Morphology See Below Polychromasia Present Hypochromasia 2+ PT INR APTT VBG pH VBG pCO2 VBG pO2 VBG HCO3 VBG Total CO2 VBG O2 Saturation VBG Base Excess Sodium 139 Potassium 3.4 L Chloride 103 Carbon Dioxide 27.3 Anion Gap 8.7 BUN 13 Creatinine 1.2 H Estimated GFR/1.73 m2 44.41 Glucose 212 H Calcium 8.3 L Total Bilirubin AST ALT Alkaline Phosphatase Lactate Dehydrogenase 309 H Troponin I NT-Pro-B Natriuret Pep Total Protein Albumin Urine Color Urine Clarity Urine pH Ur Specific [place] Urine Protein Urine Ketones Urine Blood Urine Nitrite Urine Bilirubin Urine Urobilinogen Ur Leukocyte Esterase Urine Glucose COVID-19 Source SARS-CoV-2 (PCR) Patient ABO/Rh Antibody Screen Crossmatch Review of Systems All systems reviewed & are unremarkable except as noted in HPI and below Time spent with patient Time spent in Critical Care: 45 Time spent in Critical care included: Coordination of care, Chart review, Documenting critically ill care, Time at immediate bedside and Discussing critically ill care with other medical staff
[2021-12-03] MEDS: Celecoxib 100 MG CAP PO ×2 (10:08→19:45)
[2021-12-03 10:31] LABS: Troponin I 5559 ng/L (<or=60)
--- NOTE | 2021-12-03 13:09 | PGE_ITS ---
Date of Service Date of service: 12/03/21 Time of Service: 13:10 Assessment and Plan Assessment and plan (1) Atrial fibrillation with tachycardic ventricular rate: Status: Acute Assessment and plan: Her atrial fibrillation resolved with administration of fluids and she spontaneously converted to sinus tachycardia with a rate of about 110. She subsequently returned to atrial fibrillation rhythm with RVR. HR control improved; rate in the 90's. No AC d/t anemia / post-op bleeding. Cardiology suggests holding AC for 1-2 weeks until H/H stabilizes. Will initiate metoprolol 12.5 mg BID. Monitor (2) Anemia: Status: Chronic Assessment and plan: Last hemoglobin in our records before today was 12. 8.3 at time of presentation, then decreased to 7.2. She had received a transfusion at [facility] post-operatively. Transfuse 2 units pRBCs. Monitor. Goal Hgb of > 9 given current NSTEMI from demand ischemia. (3) NSTEMI (non-ST elevated myocardial infarction): Status: Acute Assessment and plan: She has had 2 troponins each over 4400 and 4,500. Her electrocardiogram does not show appear to show anything acute although her electrocardiogram is different than it was in April of this year. Now shows some ST depression of 1 to and aVF. T waves are positive in V1 to V6 but were inverted in April of last year. Cardiology at [facility] was consulted at time of admission and Dr Fernandez now consulted. Demand ischemia d/t anemia, afib RVR, ILD/chronic hypoxic resp failure. Troponin now trending downward. (4) LLQ pain: Status: Acute Assessment and plan: A CT of the abdomen w/o acute findings. + diverticulosis, but no diverticulitis. Feeling better. Bowel regimen to prevent constipation. (5) Immunoglobulin deficiency: Status: Acute Assessment and plan: W/U by Immunology at [facility]. He recived repeat Prevnar with planned repeat Pneumovax d/t lack of response with initial dosing. Some response was noted with Covid-19 vaccine. (6) IDDM (insulin dependent diabetes mellitus): Status: Chronic Assessment and plan: Cont basal/bolus insulin. Adjust as necessary. ACHS glucose monitoring. Diabetic diet. (7) Chronic respiratory failure with hypoxia: Status: Chronic Assessment and plan: Baseline respiratory status currently; 2L O2 per NC Pulmonary following. (8) Essential hypertension: Status: Chronic Assessment and plan: Now requiring pressure support with midodrine. On metoprolol for afib rate control Monitor (9) Shoulder fracture, left: Status: Acute Assessment and plan: S/P repair at [facility]. Likely bleeding at surgical site. Qualifiers: Encounter type: subsequent encounter Fracture type: closed Fracture healing: with delayed healing Qualified Code(s): S42.92XG - Fracture of left shoulder girdle, part unspecified, subsequent encounter for fracture with delayed healing (10) Interstitial lung disease: Status: Acute Assessment and plan: Followed by Dr Morelos as outpt. Questionably chronic aspiration. On Ofev. Subjective Subjective Patient reports: no new complaints, feels better and afebrile; denies nausea, vomiting or shortness of breath (On 2L O2 per NC / baseline requirement) Exam Const General: cooperative, comfortable, no acute distress and not ill appearing Nutritional Appearance: overweight Orientation: alert, awake and oriented x3 HENMT Head: normocephalic and atraumatic Eyes General: appearance normal, both eyes and all related structures Sclera: sclerae normal Neck Neck: normal visual inspection and no JVD Resp Effort & Inspection: normal respiratory effort Auscultation: clear to auscultation bilaterally, no rales and no rhonchi Cardio Rate: tachycardic (90's) Rhythm: abnormal rhythm irregularly irregular Heart Sounds: S1 normal, S2 normal and no murmurs GI Inspection: normal to inspection and non-distended Palpation: soft and tender Skin Lesions: no lesions Extrem General: no pedal edema and no calf tenderness Left upper extremity: shoulder/upper arm (abduction splint in place) Psych Appearance: grossly normal Mental Status: mental status grossly normal Mood: congruent mood Affect: normal affect Objective Last Vital Signs Temp 36.5 C 12/03/21 12:33 Pulse 91 H 12/03/21 12:33 Resp 22 12/03/21 12:33 BP 127/31 L 12/03/21 12:33 Pulse Ox 95 12/03/21 12:01 Laboratory Results - last 24 hr 12/02/21 12/02/21 12/02/21 18:13 18:13 18:13 WBC 12.87 H RBC 2.70 L Hgb 8.3 L Hct 25.9 L MCV 95.9 H MCH 30.7 MCHC 32.0 RDW 15.1 H Plt Count 232 D MPV 10.0 Immature Gran % 0.5 Neutrophils % 80.0 Lymphocytes % 10.3 Monocytes % 5.5 Eosinophils % 3.2 Basophils % 0.5 Nucleated RBC % 0 Absolute Neutrophils 10.30 H Absolute Lymphocytes 1.33 Absolute Monocytes 0.71 Absolute Eosinophils 0.41 Absolute Basophils 0.06 RBC Morphology Polychromasia Hypochromasia PT INR APTT VBG pH 7.35 VBG pCO2 47 VBG pO2 27 VBG HCO3 26 VBG Total CO2 25 VBG O2 Saturation 49 VBG Base Excess 1 Sodium 136 Potassium 3.7 Chloride 100 Carbon Dioxide 26.0 Anion Gap 10.0 BUN 16 Creatinine 1.5 H Estimated GFR/1.73 m2 34.33 Glucose 271 H Calcium 8.6 Total Bilirubin 0.8 AST 63 H ALT 16 Alkaline Phosphatase 89 Lactate Dehydrogenase Troponin I 4436 H* NT-Pro-B Natriuret Pep Total Protein 6.3 L Albumin 2.7 L Urine Color Urine Clarity Urine pH Ur Specific [place] Urine Protein Urine Ketones Urine Blood Urine Nitrite Urine Bilirubin Urine Urobilinogen Ur Leukocyte Esterase Urine Glucose COVID-19 Source SARS-CoV-2 (PCR) Patient ABO/Rh Antibody Screen Crossmatch 12/02/21 12/02/21 12/02/21 18:13 18:30 18:30 WBC RBC Hgb Hct MCV MCH MCHC RDW Plt Count MPV Immature Gran % Neutrophils % Lymphocytes % Monocytes % Eosinophils % Basophils % Nucleated RBC % Absolute Neutrophils Absolute Lymphocytes Absolute Monocytes Absolute Eosinophils Absolute Basophils RBC Morphology Polychromasia Hypochromasia PT 10.2 INR 1.0 APTT 27.1 VBG pH VBG pCO2 VBG pO2 VBG HCO3 VBG Total CO2 VBG O2 Saturation VBG Base Excess Sodium Potassium Chloride Carbon Dioxide Anion Gap BUN Creatinine Estimated GFR/1.73 m2 Glucose Calcium Total Bilirubin AST ALT Alkaline Phosphatase Lactate Dehydrogenase Troponin I NT-Pro-B Natriuret Pep 6466 H Total Protein Albumin Urine Color Urine Clarity Urine pH Ur Specific [place] Urine Protein Urine Ketones Urine Blood Urine Nitrite Urine Bilirubin Urine Urobilinogen Ur Leukocyte Esterase Urine Glucose COVID-19 Source SARS-CoV-2 (PCR) Patient ABO/Rh A Positive Antibody Screen NEGATIVE Crossmatch See Detail 12/02/21 12/02/21 12/02/21 19:10 20:30 21:40 WBC RBC Hgb Hct MCV MCH MCHC RDW Plt Count MPV Immature Gran % Neutrophils % Lymphocytes % Monocytes % Eosinophils % Basophils % Nucleated RBC % Absolute Neutrophils Absolute Lymphocytes Absolute Monocytes Absolute Eosinophils Absolute Basophils RBC Morphology Polychromasia Hypochromasia PT INR APTT VBG pH VBG pCO2 VBG pO2 VBG HCO3 VBG Total CO2 VBG O2 Saturation VBG Base Excess Sodium Potassium Chloride Carbon Dioxide Anion Gap BUN Creatinine Estimated GFR/1.73 m2 Glucose Calcium Total Bilirubin AST ALT Alkaline Phosphatase Lactate Dehydrogenase Troponin I 4517 H* NT-Pro-B Natriuret Pep Total Protein Albumin Urine Color Yellow Urine Clarity Clear Urine pH 5.5 Ur Specific [place] 1.015 Urine Protein Negative Urine Ketones Negative Urine Blood Negative Urine Nitrite Negative Urine Bilirubin Negative Urine Urobilinogen 0.2 Ur Leukocyte Esterase Negative Urine Glucose Negative COVID-19 Source Nasal/Nares SARS-CoV-2 (PCR) Negative Patient ABO/Rh Antibody Screen Crossmatch 12/03/21 12/03/21 12/03/21 00:38 06:03 06:03 WBC 8.71 D RBC 2.37 L Hgb 7.2 L Hct 22.1 L MCV 93.2 MCH 30.4 MCHC 32.6 RDW 14.7 H Plt Count MPV 10.2 Immature Gran % 0.3 Neutrophils % 69.9 Lymphocytes % 18.1 Monocytes % 6.7 Eosinophils % 4.7 Basophils % 0.3 Nucleated RBC % 0 Absolute Neutrophils 6.09 Absolute Lymphocytes 1.58 Absolute Monocytes 0.58 Absolute Eosinophils 0.41 Absolute Basophils 0.03 RBC Morphology Polychromasia Hypochromasia 2+ PT INR APTT VBG pH VBG pCO2 VBG pO2 VBG HCO3 VBG Total CO2 VBG O2 Saturation VBG Base Excess Sodium Potassium Chloride Carbon Dioxide Anion Gap BUN Creatinine Estimated GFR/1.73 m2 Glucose Calcium Total Bilirubin AST ALT Alkaline Phosphatase Lactate Dehydrogenase Troponin I 5428 H* 6095 H* NT-Pro-B Natriuret Pep Total Protein Albumin Urine Color Urine Clarity Urine pH Ur Specific [place] Urine Protein Urine Ketones Urine Blood Urine Nitrite Urine Bilirubin Urine Urobilinogen Ur Leukocyte Esterase Urine Glucose COVID-19 Source SARS-CoV-2 (PCR) Patient ABO/Rh Antibody Screen Crossmatch 12/03/21 12/03/21 12/03/21 06:03 08:20 09:55 WBC 9.86 RBC 2.85 L Hgb 8.7 L Hct 26.5 L MCV 93.0 MCH 30.5 MCHC 32.8 RDW 14.7 H Plt Count MPV Immature Gran % 0.4 Neutrophils % 77.3 Lymphocytes % 12.8 Monocytes % 5.5 Eosinophils % 3.7 Basophils % 0.3 Nucleated RBC % 0 Absolute Neutrophils 7.62 H Absolute Lymphocytes 1.26 Absolute Monocytes 0.54 Absolute Eosinophils 0.36 Absolute Basophils 0.03 RBC Morphology See Below Polychromasia Present Hypochromasia 2+ PT INR APTT VBG pH VBG pCO2 VBG pO2 VBG HCO3 VBG Total CO2 VBG O2 Saturation VBG Base Excess Sodium 139 Potassium 3.4 L Chloride 103 Carbon Dioxide 27.3 Anion Gap 8.7 BUN 13 Creatinine 1.2 H Estimated GFR/1.73 m2 44.41 Glucose 212 H Calcium 8.3 L Total Bilirubin AST ALT Alkaline Phosphatase Lactate Dehydrogenase 309 H Troponin I 5559 H* NT-Pro-B Natriuret Pep Total Protein Albumin Urine Color Urine Clarity Urine pH Ur Specific [place] Urine Protein Urine Ketones Urine Blood Urine Nitrite Urine Bilirubin Urine Urobilinogen Ur Leukocyte Esterase Urine Glucose COVID-19 Source SARS-CoV-2 (PCR) Patient ABO/Rh Antibody Screen Crossmatch
[2021-12-03] MEDS: Metoprolol 12.5 MG TAB PO ×2 (13:54→19:45)
[2021-12-03] MEDS: oxyCODONE 10 MG TAB PO ×2 (13:54→19:44)
[2021-12-03] MEDS: Normal Saline Flush 10 ML SYR IVP ×2 (13:55→19:50)
--- NOTE | 2021-12-03 15:26 | PDOC.CMIN ---
- If Service Date Differs Date of service: 12/03/21 Time of Service: 15:26 Care Management Initial Assess REASON FOR HOSPITALIZATION:: Afib with RVR, NSTEMI, Dehydration, anemia PAST MEDICAL HISTORY/PAST SURGICAL HISTORY:: Medical History (Updated 12/02/21 @ 22:46 by Fabian Lassiter MD). Abdominal pain. Acute gastroenteritis (03/16/18). Acute kidney injury (nontraumatic). Acute pneumonitis. SYD (acute kidney injury). Anosognosia. Asthma. Chest wall pain. COPD (chronic obstructive pulmonary disease). COVID-19 ruled out by laboratory testing. Dehydration. Discharge planning issues. Discharge planning issues. DKA (diabetic ketoacidoses). DKA (diabetic ketoacidoses). DKA (diabetic ketoacidosis). DVT prophylaxis. DVT prophylaxis. Encounter to establish care. Fracture of humerus, proximal, left, closed (05/02/21). History of shingles (03/16/18). Hyperlipemia. Inflammatory disorder of digestive tract. Insulin dependent diabetes mellitus. Metabolic acidosis with normal anion gap and bicarbonate losses. Nausea & vomiting. 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 Pain in left hand. Screening cholesterol level. Sepsis. Syncope. Surgical History . Appendectomy. Arthroscopy, Shoulder. left. Bilateral salpingectomy with oophorectomy. section. Cholecystectomy. Age 20. . History of section. Ligation of fallopian tube. Thoracoscopic (R)Lung Bx (02/12/18) PREVIOUS FUNCTIONAL STATUS/SOCIAL/FAMILY SUPPORTS:: Elly recently returned home from a rehab stay at the [facility]. Per Jorge Luis, her grandson she discharged from [facility] hours before presenting to the [facility] ED. Elly lives alone at [facility] in [place] [facility]. Her son Himanshu lives locally and is supportive. She has five grand children. One of her grandsons, Jorge Luis, is quite supportive and a strong advocate. Her granddaughter Chanel is also very supportive and checks on Elly daily. CURRENT FUNCTIONAL STATUS:: Elly is lying in bed in the ICU, she is well known to this story writer from previous admissions. SIVA spoke with Jorge Luis and reviewed known information and permitted Jorge Luis to review the circumstances prior to admission. CM advocated for MD to outreach to Jorge Luis per his request. ADVANCE DIRECTIVES:: [employer] on file, Jorge Luis listed as agent. Has patient been provided with info about the portal/API?: Yes Did the patient sign up for the portal?: Yes CODE STATUS:: Full Code INSURANCE COVERAGE / FINANCIAL ISSUES:: C MCR replacement, LTC Medicaid CURRENT HOME/COMMUNITY SERVICES/EQUIPMENT:: Diabetic supplies, cane PRIMARY CARE PHYSICIAN:: Dharmesh Nolasco POTENTIAL DISCHARGE NEEDS:: Follow up appointments, evaluations for increased service supports. PATIENT/FAMILY EDUCATION NEEDS:: Review discharge instructions, discuss Ask Me Three. ANTICIPATED BARRIERS TO DISCHARGE:: None identified. TRANSPORTATION:: TBD by disposition. PLAN:: Elly continues to be closely monitored and treated per MD. Undetermined discharge plan at this time. CM continues to follow.
--- NOTE | 2021-12-03 16:38 | PHA.REVIEW ---
Pharmacy Admission Review - Admission Clinical Review (Last Updated 12/03/21 @ 13:22 by Sherrill Morelos MD) LLQ pain (Acute) Atrial fibrillation with tachycardic ventricular rate (Acute) Acute dehydration (Acute) Pre-syncope (Acute) Shoulder fracture, left (Acute) Immunoglobulin deficiency (Acute) Chronic pulmonary aspiration (Acute) NSTEMI (non-ST elevated myocardial infarction) (Acute) Shortness of breath (Acute) Interstitial lung disease (Acute 03/16/18) aspirin Allergy (Unknown, Verified 12/02/21 18:04) HIVES, flip out diclofenac Allergy (Unknown, Verified 12/02/21 18:04) RASH latex Allergy (Unknown, Verified 12/02/21 18:04) SKIN BREAKDOWN NSAIDS (Non-Steroidal Anti-Inflamma Allergy (Unknown, Verified 12/02/21 18:04) HIVES, VOMITING morphine Adverse Reaction (Unknown, Verified 12/02/21 18:04) VOMITING Resuscitation Status Full Code Height 4 ft 11 in Weight 77.5 kg - Renal Dosing Renal Dosing: BUN 13 mg/dL (7-18) 12/03/21 06:03 Creatinine 1.2 mg/dL (0.55-1.02) H 12/03/21 06:03 Medications needing adjustments: Reviewed (SCr: 1.2, eCrCl: 41.3mL/min (using adjusted body weight). All medications dosed appropriately.) - Anticoagulation Anticoagulation: Hgb 8.7 g/dL (11.2-15.7) L 12/03/21 08:20 Hct 26.5 % (36.0-46.0) L 12/03/21 08:20 Plt Count 10^3/uL (130-400) 12/03/21 08:20 INR 1.0 (0.9-1.1) 12/02/21 18:30 Creatinine 1.2 mg/dL (0.55-1.02) H 12/03/21 06:03 DVT Prophylaxis: N/A (Per cardiology, anticoagulation should be held for 1-2 weeks until H&H stabilizes (anemia/post-op bleeding).) - Opiate Usage Evaluate Pain Scale/Pains Meds: Reviewed (Pain scale ratings vary (0-10), pain better controlled today. Oxycodone 10mg Q4H PRN ordered.) Scheduled Bowel Reg ordered if on Opiates?: Yes (Miralax scheduled. ) - Relevant Labs Sodium 139 mmol/L (136-145) 12/03/21 06:03 Potassium 3.4 mmol/L (3.5-5.1) L 12/03/21 06:03 Chloride 103 mmol/L (98-107) 12/03/21 06:03 Electrolytes, C-Reactive P, ESR: Reviewed (Potassium slightly low, 3.4 - 20mEq IV repletion.) - DM Control DM Control: Glucose 212 mg/dL (74-106) H 12/03/21 06:03 Finger Stick Blood Glucose 194 Finger Stick Blood Glucose 194 Finger Stick Blood Glucose 210 Finger Stick Blood Glucose 210 Finger Stick Blood Glucose 212 Insulin Dosing: Reviewed (Blood glucose slightly elevated. Insulin glargine home dose 25 units BID.) - Heart Failure/VA Heart Failure/VA: Troponin I 5559 ng/L (<or=60) H* 12/03/21 09:55 NT-Pro-B Natriuret Pep 6466 pg/mL (<300) H 12/02/21 18:13 EF%, DAYANARA's, B-Blockers, Diuretics: Reviewed - BP Control BP Control: Blood Pressure 117/57 Blood Pressure 127/77 Blood Pressure 117/62 Blood Pressure 126/35 Blood Pressure 133/58 Blood Pressure 133/58 Blood Pressure 130/48 Blood Pressure 127/42 Blood Pressure 127/31 Blood Pressure 136/46 Blood Pressure 129/45 Blood Pressure 129/45 Blood Pressure 138/49 Blood Pressure 136/51 Blood Pressure 136/51 Blood Pressure 122/65 Blood Pressure 122/65 Blood Pressure 135/63 Blood Pressure 117/103 Blood Pressure 135/63 Blood Pressure 156/48 Blood Pressure 156/48 Blood Pressure 125/62 Blood Pressure 98/48 Blood Pressure 117/49 If elevated: Reviewed (Blood pressure low this admission.) - Qtc Review If Elevated: Reviewed (QTc 490 on admission. Escitalopram (home med) only QTc prolonging medication currently ordered.) - IV to PO Switch IV Medications: Reviewed - Home Meds Home Med List reviewed: Reviewed (Nintedanib 150mg BID not ordered (patient would need to bring in their own supply) and Pantoprazole 40mg BID not ordered.) - Current meds Current Medication Order Review: Reviewed - Comments Comments/Follow Ups: Continue to monitor labs, vitals and for medication changes (avoid QTc prolonging drugs and watch for possible renal dose adjustments).
[2021-12-03] MEDS: POTASSIUM CHLORIDE 10 MEQ/100 ML BAG 100 MEQ IVPB ×2 (17:13→17:53)
[2021-12-03 18:37] LABS: Lab Add On Test DONE
[2021-12-03 18:45] LABS: Magnesium 1.7 mg/dL (1.8-2.4)
[2021-12-03] MEDS: Atorvastatin 40 MG TAB 80 MG PO (19:45)
[2021-12-03] MEDS: Magnesium Oxide 400 MG TAB PO (22:18)
[2021-12-04] VITALS (45 sets, daily range): BP systolic 97–137; BP diastolic 45–99; PULSE 63–109; RESP 13–26; TEMP 36.7–37; O2SAT 92–98
[2021-12-04] MEDS: oxyCODONE 10 MG TAB PO ×3 (03:02→19:51)
[2021-12-04] MEDS: Normal Saline Flush 10 ML SYR IVP (06:09)
[2021-12-04] MEDS: Metoprolol 12.5 MG TAB PO ×2 (06:59→19:49)
[2021-12-04 07:56] LABS: Abs Immature Grans 0.04 10^3/uL (0.0-0.06); Absolute Basophil Count 0.05 10^3/uL (0.0-0.2); Absolute Eosinophil Count 0.47 10^3/uL (0.0-0.7); Absolute Lymphocyte Count 1.34 10^3/uL (1.2-3.4); Absolute Neutrophil Count 7.89 10^3/uL (1.2-6.7); Basophils % 0.5; Eosinophils % 4.5; HCT 31.8 % (36.0-46.0); HGB 10.3 g/dL (11.2-15.7); Immature Grans % 0.4; Lymphocytes % 12.8; MCH 30.1 pg (27.0-33.0); MCHC 32.4 % (32.0-36.0); MPV 10.1 fL (8.0-11.0); Monocytes % 6.7; Neutrophils % 75.1; Nucleated RBC 0 %; Platelet Count 244 10^3/uL (130-400); RBC 3.42 10^6/uL (3.93-5.22); RDW 15.5 % (11.7-14.6); RDW-SD 52.9 fL; WBC 10.49 10^3/uL (4.4-10.8)
[2021-12-04 07:59] LABS: Anion Gap 7.9 mmol/L (3-11); BUN 17 mg/dL (7-18); CO2 28.1 mmol/L (21.0-32.0); CREATININE 1.2 mg/dL (0.55-1.02); Calcium 8.6 mg/dL (8.5-10.1); Chloride 104 mmol/L (98-107); Estimated GFR 44.41 (mL/min/1.73m2); Glucose 163 mg/dL (74-106); Potassium 3.7 mmol/L (3.5-5.1); Sodium 140 mmol/L (136-145)
[2021-12-04] MEDS: Celecoxib 100 MG CAP PO ×2 (08:18→19:49)
[2021-12-04] MEDS: Insulin Aspart 300 UNITS/3 ML PEN SC ×4 (08:18→21:47)
[2021-12-04] MEDS: Escitalopram 20 MG TAB PO (08:18)
[2021-12-04] MEDS: Furosemide 40 MG/4 ML VIAL IVP (08:18)
[2021-12-04] MEDS: Spironolactone 25 MG TAB PO (08:19)
[2021-12-04] MEDS: Lidocaine 5% Patch 1 PATCH TP (08:19)
[2021-12-04] MEDS: Polyethylene Glycol 3350 17 GM PACKET PO (08:19)
[2021-12-04] MEDS: Midodrine 2.5 MG TAB 10 MG PO ×3 (08:19→19:48)
--- NOTE | 2021-12-04 10:37 | PGE_ITS ---
Date of Service Date of service: 12/04/21 Time of Service: 10:37 Assessment and Plan Assessment and plan (1) NSTEMI (non-ST elevated myocardial infarction): Status: Acute Assessment and plan: In setting of rapid Afib as well as post-op anemia. Clinically stable. HR is better controlled. Continue metoprolol 12.5 mg PO BID, statin. Would re-introduce plavix tomorrow if H/H remains stable. Per cardiology, no need for repeating ischemic workup at this time as this is likely a type 2 NSTEMI event. (2) Atrial fibrillation with tachycardic ventricular rate: Status: Acute Assessment and plan: Going in and out of rapid afib. Continue lopressor 12.5 mg PO BID. Per cardiology, echo would be difficult given recent L shoulder surgery and is non-emergent. Will defer full anticoagulation for 2 weeks after surgery. (3) Anemia: Status: Chronic Assessment and plan: s/p 2 units pRBCs yesterday. H/H improved as expected. At this point, will start DVT ppx and monitor H/H. (4) Pre-syncope: Status: Acute Assessment and plan: In setting of symptomatic anemia and new onset rapid Afib. Now still dizzy, but better. H/H is better. Continue midodrine at this time and monitor orthostatic BPs. (5) Acute on chronic congestive heart failure with right ventricular diastolic dysfunction: Status: Acute Assessment and plan: Volume status better. Switch lasix to PO. The patient did not sleep on CPAP but hoping that this would happen tonight. (6) Shoulder fracture, left: Status: Acute Assessment and plan: C/s PT/OT. Qualifiers: Encounter type: subsequent encounter Fracture type: closed Fracture healing: with delayed healing Qualified Code(s): S42.92XG - Fracture of left shoulder girdle, part unspecified, subsequent encounter for fracture with delayed healing (7) Pulmonary fibrosis: Status: Chronic Assessment and plan: Hold Ofev until 12/08, per Dr Morelos and per [facility] [place]. (8) Chronic respiratory failure with hypoxia: Status: Chronic Assessment and plan: On 1.5 L of O2 by NC at this time. Monitor O2 sats on ambulation. (9) IDDM (insulin dependent diabetes mellitus): Status: Chronic (10) DVT prophylaxis: Status: Acute Assessment and plan: Start SC heparin while monitoring H/H. (11) Discharge planning issues: Status: Acute Assessment and plan: Full code. Consult palliative care, PT, OT. Can likely transfer out of the ICU later today. Subjective Subjective Interval history since last seen: Ms Pina has been going in and out of rapid Afib, up to 150s, asymptomatic. She was constipated, but had a firm BM this morning. Dizzy after moving (after getting back into bed, changing positions in bed). Denies chest pain, shortness of breath. [place] nauseated this morning but not now. C/o 10/10 L shoulder pain. No active bleeding - Heme negative stools. The patient states that there was blood on the tissue when she was being wiped, but the nursing firmly denies this. Did not sleep with CPAP on (No CPAP in the room this morning). Exam Narrative Exam Narrative: General: Pleasant elderly female who is not short of breath, on 1.5 L of O2 by NC HEENT: EOMI, MMM Heart: RRR, no m/r/g Lungs: quiet rhonchi on expiration B, dry cough Abdomen: soft, nontender, nondistended Extremities: trace edema BLE's Objective Last Vital Signs Temp 36.7 C 12/04/21 08:53 Pulse 91 H 12/04/21 06:01 Resp 17 12/04/21 08:53 BP 119/50 L 12/04/21 06:01 Pulse Ox 93 12/04/21 08:53 Laboratory Results - last 24 hr 12/02/21 12/03/21 12/03/21 18:30 06:03 06:03 WBC RBC Hgb Hct MCV MCH MCHC RDW Plt Count MPV Immature Gran % Neutrophils % Lymphocytes % Monocytes % Eosinophils % Basophils % Nucleated RBC % Absolute Neutrophils Absolute Lymphocytes Absolute Monocytes Absolute Eosinophils Absolute Basophils Sodium Potassium Chloride Carbon Dioxide Anion Gap BUN Creatinine Estimated GFR/1.73 m2 Glucose Calcium Magnesium 1.7 L Add-On Test Request DONE Patient ABO/Rh A Positive Antibody Screen NEGATIVE Crossmatch See Detail 12/04/21 12/04/21 06:05 06:05 WBC 10.49 RBC 3.42 L Hgb 10.3 L Hct 31.8 L MCV 93.0 MCH 30.1 MCHC 32.4 RDW 15.5 H Plt Count 244 MPV 10.1 Immature Gran % 0.4 Neutrophils % 75.1 Lymphocytes % 12.8 Monocytes % 6.7 Eosinophils % 4.5 Basophils % 0.5 Nucleated RBC % 0 Absolute Neutrophils 7.89 H Absolute Lymphocytes 1.34 Absolute Monocytes 0.70 Absolute Eosinophils 0.47 Absolute Basophils 0.05 Sodium 140 Potassium 3.7 Chloride 104 Carbon Dioxide 28.1 Anion Gap 7.9 BUN 17 Creatinine 1.2 H Estimated GFR/1.73 m2 44.41 Glucose 163 H Calcium 8.6 Magnesium Add-On Test Request Patient ABO/Rh Antibody Screen Crossmatch
[2021-12-04] MEDS: Docusate Sodium 100 MG CAP PO ×2 (10:45→19:49)
[2021-12-04] MEDS: Acetaminophen 325 MG TAB 650 MG PO ×2 (10:52→20:56)
[2021-12-04] MEDS: Heparin 5,000 UNITS/ML VIAL 5000 UNITS SC ×2 (11:07→21:12)
[2021-12-04 12:04] LABS: Bilirubin Negative (Negative); Blood Trace-lysed (Negative); Clarity Clear (Clear); Glucose Negative (Negative); Ketones Negative (Negative); Leukocyte Esterase Negative (Negative); Nitrite Negative (Negative); pH 5.5 (5-8)
[2021-12-04 12:10] LABS: Bacteria Negative HPF (Negative); Crystals Negative HPF (Negative); Epithelial Cells Rare HPF (Negative); WBC 0-2 HPF (0-5)
[2021-12-04 12:11] LABS: C & S Indicated? No; Casts Negative LPF (Negative); Mucus Trace (Negative)
--- NOTE | 2021-12-04 13:08 | PT.INIE ---
Date of service: 12/04/21 Time of Service: 09:18 PT Notes Visit Reasons: AFIB RVR,NSTEMI,Dehydration,Anemia Physical Therapy Inpatient Initial Evaluation Date: 12/04/21 Referring Doctor: Randi Dyer PT Orders: PT CONSULT: Limited Ability Precautions: Fall. Standard. L post op shoulder (pt describes as reverse total) Patient Profile/Admitting Diagnosis: Elly is a 71 yo female that presented to ER on 12/02/21 following syncope event once arriving home from [facility] following left shoulder surgery on 11/30/21. She reports having fallen in April 2021 causing left shoulder fracture, which was just operated on this week. PMHX: See EMR Social History/Home Situation: Lives alone in single story home with 3 BARRIE. Two of her grandchildren assist regularly as well as neighbor friends. Ambulates with SPC. Left arm currently in sling. Uses 2-4L O2 at home depending on activity. Equipment Owned/DME: Cane, sling Subjective: Cleared by nursing to see patient and patient is agreeable to PT. Patient was resting in bed at time of consult and connected to telemetry with huertas catheter in place, and 2L O2 via nasal cannula. Patient is right side dominant. Ice placed on left shoulder at end of session. Objective: General Observation: Pleasant. Swelling left upper arm. Sling too large. Mental Status: A&O x3 Pain: Left shoulder ROM: Right Upper Extremity: Shoulder Flexion WFL. Shoulder abduction WFL. Elbow flexion WFL. Wrist flexion WFL. Opening and closing of hand WFL. Left Upper Extremity: Shoulder Flexion impaired secondary to post op status. Shoulder abduction impaired secondary to post op status. Elbow flexion diminished due to sling use. Wrist flexion WFL. Opening and closing of hand WFL. Right Lower Extremity: Hip flexion WFL. Hip abduction WFL. Knee flexion WFL. Ankle dorsiflexion WFL. Ankle plantarflexion WFL. Left Lower Extremity: Hip flexion WFL. Hip abduction WFL. Knee flexion WFL. Ankle dorsiflexion WFL. Ankle plantarflexion WFL. Strength: Right Upper Extremity: Shoulder flexors 5/5. Shoulder abductors 5/5. Elbow flexors 5/5. Elbow extensors 5/5. Plate Furnace Operator strong. Left Upper Extremity: Impaired due to post op status. Right Lower Extremity: Hip flexors 5/5. Hip abductors 5/5. Knee flexors 5/5. Knee extensors 5/5. Ankle dorsiflexors 5/5. Ankle plantarflexors 5/5. Left Lower Extremity: Hip flexors 5/5. Hip abductors 5/5. Knee flexors 5/5. Knee extensors 5/5. Ankle dorsiflexors 5/5. Ankle plantarflexors 5/5. Sensation: Intact as to pain and pressure. Bed Mobility/Transfers: Supine to sit: Mod A Sit to supine: Mod A Sit to stand: Min A Stand to sit: Min A Bed to chair: CGA Chair to bed: CGA Gait: Ambulated couple steps to get in chair at beside, CGA with cane Balance: Static Sitting: Good Dynamic Sitting: Fair Static Standing: Fair Dynamic Standing: Poor Manual therapy (82128): Left shoulder PROM for flexion and scaption keeping arm in slight abduction Left elbow flex/ext PROM Light STM to left biceps, upper arm, and upper trap Special Tests: Mobility Limitations Standardized Measure [facility] 6 clicks Basic Mobility Inpatient Short Form: Raw Score: 14 CMS Score: 61.29% Informed Consent/Education: Patient instructed in purpose of PT consult and plan of care. Assessment: Patient presents with clinical signs and symptoms consistent with current/admitting diagnoses that have resulted to mobility limitations, gait instability, generalized weakness, and impairment of motor control as demonstrated by the following impairment level findings: 1. Decreased strength to left upper extremity major muscle groups 2. Impaired sitting/standing balance 3. Impaired activity tolerance 4. Limitation of joint range of motion in left shoulder Impairments are contributing to the following functional limitations: 1. Decreased bed mobility skills 2. Increased dependence with transfers 3. Inability to safely ambulate without assistive device and physical assistance 4. Increase completion time for mobility ADL performance 5. Increased fall risk 6. Inability to negotiate steps alone safely Patient is assessed as a Low complexity based on the following: History: 71 year old female with impairment level findings, functional limitations, and past medical history as indicated above Examination: Demonstrable impairment in strength, balance, and mobility level with underlying impairments and functional limitations as documented above Presentation: Stable Decision Making: Low complexity Goals: Goals x1 week 1. Supine-Sit: independent 2. Sit-Supine: independent 3. Sit-Stand: independent 4. Stand-Sit: independent 5. Bed-Chair: independent 6. Chair-Bed: independent 7. Independent gait on level surface with use of least restrictive device for at least 300 feet without report of pain nor dyspnea 8. Independent stair negotiation while holding onto bilateral rails for at least 10 steps without report of pain nor dyspnea 9. Independent with home exercise program 10. Good static and dynamic standing balance/tolerance Plan of Care/Treatment Plan: 1-2x/day, 7 days/week x 1 week. Plan of care has been reviewed with the ENGINEERING DESIGN SUPERVISOR providing the service under Physical Therapy direction. Initiate Physical Therapy intervention for strengthening, bed mobility, transfers, gait, stairs, balance training, and use of assistive device. Discharge Plan DISCHARGE RECOMMENDATIONS: Home with outpatient PT for better rehab of right shoulder TREATMENT CODE/TIME: 9:18-9:50 (32 minutes), [id number], [id number] Thank you for the opportunity to participate in the care of this patient. Judith Pepper, PT, DPT, OCS [facility] [place], [place]
[2021-12-04] MEDS: Pantoprazole 40 MG TABCR PO (19:49)
[2021-12-04] MEDS: Atorvastatin 40 MG TAB 80 MG PO (19:49)
[2021-12-04] MEDS: Benzonatate 100 MG CAP PO (20:56)
[2021-12-04] MEDS: Magnesium Oxide 400 MG TAB PO (21:11)
[2021-12-04] MEDS: Insulin Glargine 300 UNITS/3 ML PEN 18 UNITS SC (21:47)
[2021-12-05] VITALS (29 sets, daily range): BP systolic 118–132; BP diastolic 61–66; PULSE 60–86; RESP 16–27; TEMP 36.7; O2SAT 97
[2021-12-05] MEDS: oxyCODONE 10 MG TAB PO ×3 (03:15→21:13)
[2021-12-05] MEDS: Normal Saline Flush 10 ML SYR IVP (05:55)
[2021-12-05 07:07] LABS: Abs Immature Grans 0.04 10^3/uL (0.0-0.06); Absolute Basophil Count 0.05 10^3/uL (0.0-0.2); Absolute Eosinophil Count 0.52 10^3/uL (0.0-0.7); Absolute Lymphocyte Count 1.28 10^3/uL (1.2-3.4); Absolute Monocyte Count 0.56 10^3/uL (0.1-0.8); Absolute Neutrophil Count 6.31 10^3/uL (1.2-6.7); Basophils % 0.6; Eosinophils % 5.9; HCT 31.2 % (36.0-46.0); Immature Grans % 0.5; Lymphocytes % 14.6; MCH 29.9 pg (27.0-33.0); MCHC 32.1 % (32.0-36.0); MCV 93.1 fL (80-95); MPV 9.8 fL (8.0-11.0); Monocytes % 6.4; Nucleated RBC 0 %; Platelet Count 265 10^3/uL (130-400); RBC 3.35 10^6/uL (3.93-5.22); RDW 14.7 % (11.7-14.6); RDW-SD 50.4 fL; WBC 8.76 10^3/uL (4.4-10.8)
[2021-12-05 07:14] LABS: Anion Gap 6.2 mmol/L (3-11); BUN 22 mg/dL (7-18); CO2 31.8 mmol/L (21.0-32.0); CREATININE 1.3 mg/dL (0.55-1.02); Calcium 8.2 mg/dL (8.5-10.1); Chloride 103 mmol/L (98-107); Estimated GFR 40.49 (mL/min/1.73m2); Glucose 162 mg/dL (74-106); Potassium 3.6 mmol/L (3.5-5.1); Sodium 141 mmol/L (136-145)
[2021-12-05] MEDS: Lidocaine 5% Patch 1 PATCH TP (07:59)
[2021-12-05] MEDS: Metoprolol 12.5 MG TAB PO ×2 (07:59→21:13)
[2021-12-05] MEDS: Escitalopram 20 MG TAB PO (07:59)
[2021-12-05] MEDS: Midodrine 2.5 MG TAB 10 MG PO ×3 (07:59→21:13)
[2021-12-05] MEDS: Furosemide 40 MG TAB PO (07:59)
[2021-12-05] MEDS: Pantoprazole 40 MG TABCR PO ×2 (07:59→21:14)
[2021-12-05] MEDS: Celecoxib 100 MG CAP PO ×2 (07:59→21:14)
[2021-12-05] MEDS: Potassium Chloride 20 MEQ TABCR 40 MEQ PO (07:59)
[2021-12-05] MEDS: Insulin Aspart 300 UNITS/3 ML PEN SC ×6 (08:00→21:21)
[2021-12-05] MEDS: Spironolactone 25 MG TAB PO (08:00)
[2021-12-05] MEDS: Acetaminophen 325 MG TAB 650 MG PO (08:53)
--- NOTE | 2021-12-05 11:06 | W.PM.PROGNOT ---
Date of Service Date of service: 12/05/21 Time of Service: 11:07 Assessment and Plan Assessment and plan (1) NSTEMI (non-ST elevated myocardial infarction): Status: Acute Assessment and plan: In setting of rapid Afib as well as post-op anemia. Clinically stable. HR is controlled, no recurrences of Afib/RVR. Continue metoprolol 12.5 mg PO BID, statin. It appears that plavix was actually d/c'ed intentionally on this admission. Will discuss with cardiology tomorrow when it should be resumed. Per cardiology, no need for repeating ischemic workup at this time as this is likely a type 2 NSTEMI event. (2) Atrial fibrillation with tachycardic ventricular rate: Status: Acute Assessment and plan: No episodes of rapid Afib overnight. Continue lopressor 12.5 mg PO BID. Per cardiology, echo would be difficult given recent L shoulder surgery and is non-emergent. Will defer full anticoagulation for 2 weeks after surgery. (3) Anemia: Status: Chronic Assessment and plan: s/p 2 units pRBCs on this admission. H/H has remained stable x 24 hrs, even with SC heparin on board. Continue to monitor. (4) Pre-syncope: Status: Acute Assessment and plan: In setting of symptomatic anemia and new onset rapid Afib. There is also a component of vertigo. Will try meclizine. Continue midodrine and monitor orthostatic BPs. (5) Acute on chronic congestive heart failure with right ventricular diastolic dysfunction: Status: Acute Assessment and plan: Volume status stable. Continue PO lasix + aldactone The patient did not sleep on CPAP but hoping that this would happen tonight. (6) Shoulder fracture, left: Status: Acute Assessment and plan: PT/OT consulted. Qualifiers: Encounter type: subsequent encounter Fracture type: closed Fracture healing: with delayed healing Qualified Code(s): S42.92XG - Fracture of left shoulder girdle, part unspecified, subsequent encounter for fracture with delayed healing (7) Pulmonary fibrosis: Status: Chronic Assessment and plan: Hold Ofev until 12/08, per Dr Morelos and per [facility] ortho. (8) Chronic respiratory failure with hypoxia: Status: Chronic Assessment and plan: On 1.5 L of O2 by NH at this time. Monitor O2 sats on ambulation. (9) IDDM (insulin dependent diabetes mellitus): Status: Chronic Assessment and plan: FBG at goal today; however, yesterday, all BGs in 200s. Add prandial carb coverage. Continue long acting insulin + SSI. (10) DVT prophylaxis: Status: Acute Assessment and plan: SC heparin while monitoring H/H. (11) Discharge planning issues: Status: Acute Assessment and plan: Full code. Consult palliative care, PT, OT. Transferred to [facility] on 12/04/21. Subjective Subjective Interval history since last seen: Ms Pina reports feeling dizzy. She is dizzy even at rest in bed and it gets worse when she turns her head side to side. She denies chest pain, shortness of breath. Had a little nausea a few minutes ago, but it now stopped. Reports diarrhea. Exam Narrative Exam Narrative: General: Pleasant elderly female who is not short of breath, looks uncomforatble when I examine EOM, on 1.5 L of O2 by NC HEENT: EOMI, MMM Heart: RRR, no m/r/g Lungs: quiet rhonchi on expiration B, dry cough Abdomen: soft, nontender, nondistended Extremities: trace edema BLE's Objective Last Vital Signs Temp 36.7 C 12/05/21 04:02 Pulse 65 12/05/21 04:02 Resp 17 12/05/21 04:02 BP 118/66 12/05/21 04:02 Pulse Ox 97 12/05/21 04:02 Laboratory Results - last 24 hr 12/02/21 12/04/21 12/05/21 18:30 11:50 06:55 WBC RBC Hgb Hct MCV MCH MCHC RDW Plt Count MPV Immature Gran % Neutrophils % Lymphocytes % Monocytes % Eosinophils % Basophils % Nucleated RBC % Absolute Neutrophils Absolute Lymphocytes Absolute Monocytes Absolute Eosinophils Absolute Basophils Sodium 141 Potassium 3.6 Chloride 103 Carbon Dioxide 31.8 Anion Gap 6.2 BUN 22 H Creatinine 1.3 H Estimated GFR/1.73 m2 40.49 Glucose 162 H Calcium 8.2 L Magnesium 2.0 Urine Color Yellow Urine Clarity Clear Urine pH 5.5 Ur Specific [place] 1.010 Urine Protein Negative Urine Ketones Negative Urine Blood Trace-lysed H Urine Nitrite Negative Urine Bilirubin Negative Urine Urobilinogen 1.0 H Ur Leukocyte Esterase Negative Urine RBC 3-5 H Urine WBC 0-2 Ur Epithelial Cells Rare Urine Crystals Negative Urine Bacteria Negative Urine Casts Negative Urine Mucus Trace Ur Culture Indicated? No Urine Glucose Negative Crossmatch See Detail 12/05/21 06:55 WBC 8.76 RBC 3.35 L Hgb 10.0 L Hct 31.2 L MCV 93.1 MCH 29.9 MCHC 32.1 RDW 14.7 H Plt Count 265 MPV 9.8 Immature Gran % 0.5 Neutrophils % 72.0 Lymphocytes % 14.6 Monocytes % 6.4 Eosinophils % 5.9 Basophils % 0.6 Nucleated RBC % 0 Absolute Neutrophils 6.31 Absolute Lymphocytes 1.28 Absolute Monocytes 0.56 Absolute Eosinophils 0.52 Absolute Basophils 0.05 Sodium Potassium Chloride Carbon Dioxide Anion Gap BUN Creatinine Estimated GFR/1.73 m2 Glucose Calcium Magnesium Urine Color Urine Clarity Urine pH Ur Specific [place] Urine Protein Urine Ketones Urine Blood Urine Nitrite Urine Bilirubin Urine Urobilinogen Ur Leukocyte Esterase Urine RBC Urine WBC Ur Epithelial Cells Urine Crystals Urine Bacteria Urine Casts Urine Mucus Ur Culture Indicated? Urine Glucose Crossmatch
[2021-12-05] MEDS: Meclizine 12.5 MG TAB PO (11:37)
[2021-12-05] MEDS: Heparin 5,000 UNITS/ML VIAL 5000 UNITS SC ×2 (11:37→21:14)
--- NOTE | 2021-12-05 12:22 | PT.INTREAT ---
Date of service: 12/05/21 Time of Service: 09:30 PT Notes Visit Reasons: AFIB RVR,NSTEMI,Dehydration,Anemia Inpatient Physical Therapy Treatment Note [facility] Date: 12/05/2021 PRECAUTIONS:Fall, standard, left shoulder surgery SUBJECTIVE: Post mobilization of shoulder and LE exercises patient requested to transfer back to bed. Nursing staff was in agreement with this. Shoulder continues to hurt. Light soft tissue to posterior shoulder and bicep does seem to help. OBJECTIVE: PAIN: Left shoulder continues to hurt, but not anymore than is has been. BED MOBILITY/TRANSFERS Sit-supine: min assist Sit-stand: CGA Stand-sit: CGA GAIT Assistive Device: No device Weight bearing: Full Assist: CGA Distance: chair to bed transfer THEREX: Performed ankle pumps, LAQs, seated marching and seated hip abd / adduction x 10 reps each. Performed hand squeeze with ball x 15 reps with left hand. Manual Therapy: Gentle PROM into scaption to approximately 70 degrees, elbow flexion / ext and wrist flexion extension within patient's tolerance. Brief TPM to left upper traps, lev scap, rhomboids and biceps while resting in bed later in morning. Patient was receiving cryotherapy to anterior shoulder prior to lunch, via nursing. ASSESSMENT: Tolerated session well without complaints of increased irritation with PROM. Good effort with seated LE exercises. PLAN: Continue with current plan of care. Check with Geeta tomorrow regarding change in shoulder sling. Question need to contact ortho for consultation regarding best choice of sling. TREATMENT CODE/TIME: 96398/ [id number], 9:30 to 9:50 and 11:50 to 11:57 (27 minutes)
[2021-12-05] MEDS: Atorvastatin 40 MG TAB 80 MG PO (21:14)
[2021-12-05] MEDS: Magnesium Oxide 400 MG TAB PO (21:14)
[2021-12-05] MEDS: Insulin Glargine 300 UNITS/3 ML PEN 18 UNITS SC (21:22)
[2021-12-06] VITALS (30 sets, daily range): BP systolic 127–139; BP diastolic 54–62; PULSE 57–75; RESP 14–27; TEMP 36.4–37.3; O2SAT 91–99
[2021-12-06] MEDS: oxyCODONE 10 MG TAB PO (07:06)
[2021-12-06] MEDS: Acetaminophen 325 MG TAB 650 MG PO (07:06)
[2021-12-06 07:11] LABS: HCT 31.4 % (36.0-46.0); HGB 10.1 g/dL (11.2-15.7)
[2021-12-06 07:39] LABS: Anion Gap 7.9 mmol/L (3-11); BUN 20 mg/dL (7-18); CO2 30.1 mmol/L (21.0-32.0); CREATININE 1.4 mg/dL (0.55-1.02); Calcium 8.7 mg/dL (8.5-10.1); Calculated LDL 57 mg/dL (<100); Chloride 102 mmol/L (98-107); Cholesterol 126 mg/dL (<200); Estimated GFR 37.18 (mL/min/1.73m2); Glucose 178 mg/dL (74-106); HDL Cholesterol 27 mg/dL (40-60); Magnesium 2.1 mg/dL (1.8-2.4); Potassium 4.2 mmol/L (3.5-5.1); Sodium 140 mmol/L (136-145); Triglyceride 213 mg/dL (<150)
--- NOTE | 2021-12-06 08:19 | W.PALLCONSUL ---
Date of service: 12/06/21 Time of Service: 08:20 History of Present Illness History of Present Illness Chief Complaint: SOB, dizziness Narrative: From H and P: History of Present Illness?Chief Complaint: weakness?Narrative: This 71-year-old female came to the hospital today because of weakness and lightheadedness.? She recently was at [facility] and had a left shoulder procedure on November 30.? She was discharged about 4:30 PM today.? On her way home she and her family stop to get some food and she ate half a grinder setup operator and some chips that she began feeling quite pale and weak.? She never got into her house after coming back from [facility].? EMS was called and they found her without her oxygen and her O2 saturations were in the 80s.? She improved with oxygen supplementation and came here where she was found to be in atrial fibrillation with a rapid ventricular response.? She was quite diaphoretic on presentation but was not hypotensive.? She said she not been around anyone else has been sick.? She lives by herself but was planning on having neighbors and family come to help her while she is recuperating from her shoulder surgery.? She needs to keep the left arm in an abduction brace until she is seen again on December 17.? She is having some abdominal pain when she coughs but otherwise she has not had any chest pain or shortness of breath.? She has been having trouble with her balance or urination.? She has a history of atrial fibrillation, heart failure, diabetes and interstitial lung disease.? Emergency department evaluated her with laboratory studies, electrocardiogram and chest CT angiogram.? Her troponin has been high on 2 measurements but her electrocardiogram does not show any acute myocardial infarction.? She did have a myocardial perfusion imaging study August of last year which was normal.? She states she has had her coronavirus vaccine and booster.? She feels fine at the present time except for the abdominal pain.? She states she was fine when she left [facility] this afternoon.? She states she did receive a transfusion of blood while at [facility].? Her anticoagulation was not restarted for her atrial fibrillat Interim hx: Overall she is feeling considerably better. She no longer has shortness of breath. She states that her dizziness has stabilized. Her left shoulder is painful and an irritant and that she has to keep it in a brace. She is worried about her grandson who is very concerned when she was so symptomatic upon arrival home after being discharged from [place]. She has received 2 units of blood and presently blood pressure and heart rate stable Consults Consult date: 12/06/21 Requesting physician: Randi Dyer Assessment and Plan Assessment and plan (1) New onset a-fib: Status: Acute Assessment and plan: Present we she is in sinus rhythm (2) Anemia: Status: Chronic Assessment and plan: Anemia improving. Received 2 units of blood (3) Shoulder fracture, left: Status: Acute Assessment and plan: Status post surgery for shoulder. Presently in a brace Qualifiers: Encounter type: subsequent encounter Fracture type: closed Fracture healing: with delayed healing Qualified Code(s): S42.92XG - Fracture of left shoulder girdle, part unspecified, subsequent encounter for fracture with delayed healing (4) Chronic respiratory failure with hypoxia: Status: Chronic Assessment and plan: On supplemental oxygen (5) Palliative care patient: Status: Chronic Assessment and plan: I have spoken to Elly on 2 occasions regarding her wishes. She wants to be a full code only until her daughter comes from the [facility]. At the same time she also understands that things could move quickly and she wants her grandson Jorge Luis to be able to change her to a DNR/DNI. We have discussed this many times outpatient with both Elly and Jorge Luis. She is anxious to go home but wants to make sure she is ready. She does have caregivers at home to help her and is very involved grandsonJorge Luis Review of Systems Narrative: Much improved regarding dizziness and unsteadiness. She has not yet walked with physical therapy. She states that her shoulder is doing quite well. She is not feeling short of breath like she did although she admits that she has not yet done much. This morning she is not nauseated. She cannot remember her last bowel movement [facility] All Active Problems (Updated 12/04/21 @ 11:06 by Randi Dyer MD) New onset a-fib (Acute) Discharge planning issues (Acute) DVT prophylaxis (Acute) LLQ pain (Acute) Atrial fibrillation with tachycardic ventricular rate (Acute) Anemia (Chronic) Acute dehydration (Acute) Pre-syncope (Acute) Shoulder fracture, left (Acute) Immunoglobulin deficiency (Acute) Chronic pulmonary aspiration (Acute) Anemia (Chronic) Grief (Chronic) brother Nov 2020 Low-level of literacy (Chronic) Palliative care patient (Acute) Orthostatic hypotension (Acute) Acute congestive heart failure (Acute) NSTEMI (non-ST elevated myocardial infarction) (Acute) Shortness of breath (Acute) Syncope (Chronic) Ribs, multiple fractures (Acute) IDDM (insulin dependent diabetes mellitus) (Chronic) Hiatal hernia (Chronic) Acute on chronic congestive heart failure with right ventricular diastolic dysfunction (Acute) Pulmonary fibrosis (Chronic) Renal insufficiency (Chronic) Functional encopresis (Chronic) Palliative care patient (Chronic) Pulmonary hypertension (Chronic) Chronic respiratory failure with hypoxia (Chronic) Advance directive on file (Acute) Internal derangement of right knee (Chronic) Back pain (Chronic) Osteoporosis (Chronic 03/16/18) Neck pain (Chronic 03/16/18) Migraine (Chronic 04/03/14) Long-term use of high-risk medication (Chronic 03/16/18) Interstitial lung disease (Acute 03/16/18) Pulm: Bertin Gastroesophageal reflux disease without esophagitis (Chronic 03/16/18) Essential hypertension (Chronic 07/17/13) Edema (Chronic 03/16/18) Dyspnea (Chronic 03/16/18) Depressive disorder (Chronic) Cognitive impairment (Chronic 03/16/18) Mild, w/Memory Loss Anxiety (Chronic 03/16/18) Umbilical hernia (Chronic) Type II diabetes mellitus, uncontrolled (Chronic) Total urinary incontinence (Chronic) Shoulder pain (Chronic) left- surgery Post herpetic neuralgia (Chronic 03/16/18) Peripheral neuralgia (Chronic) Medical History (Updated 12/04/21 @ 11:06 by Randi Dyer MD) Abdominal pain Acute gastroenteritis (03/16/18) Acute kidney injury (nontraumatic) Acute pneumonitis SYD (acute kidney injury) Anosognosia Asthma Asthma Chest wall pain COPD (chronic obstructive pulmonary disease) COVID-19 ruled out by laboratory testing Dehydration Discharge planning issues Discharge planning issues DKA (diabetic ketoacidoses) DKA (diabetic ketoacidoses) DKA (diabetic ketoacidosis) DVT prophylaxis DVT prophylaxis Encounter to establish care Fracture of humerus, proximal, left, closed (05/02/21) History of shingles (03/16/18) Hyperlipemia Inflammatory disorder of digestive tract Insulin dependent diabetes mellitus Metabolic acidosis with normal anion gap and bicarbonate losses Nausea & vomiting 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 History of section Ligation of fallopian tube Thoracoscopic (R)Lung Bx (02/12/18) Family History Mother , aged 81 from dementia, per Elly Diabetes Essential hypertension CHF (congestive heart failure) Heart disease CHF/heart failure Dementia Father , aged 80 Diabetes Essential hypertension CAD (coronary artery disease) Heart disease [place] Hyperlipidemia Stroke Sister , aged 54 Diabetes Personal history of malignant neoplasm Lung Asthma Lung cancer Brother , of mesithelioma aged 62 Diabetes Essential hypertension Personal history of malignant neoplasm Lung, Prostate Hyperlipidemia Asthma Mesothelioma Brother , of PE following knee surgery age 69 Pulmonary embolus with infarction Daughter No problems noted. Son No problems noted. 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 Pets and animals: Yes Pets and animals: cat(s) Sexually active: No Do you think of yourself as: straight/heterosexual Current gender identity: female What is your relationship status?: How often do you talk on the phone with friends or family?: three or more times per week How often do you get together with friends or relatives?: three or more times per week How often do you attend pentecostalism or protestant services?: 1-3 times per year Do you belong to any clubs or organized social groups?: no Panel score (0-1 are the most socially isolated patients): 1 What type of physical activity do you participate in: none and sedentary lifestyle Duration: < 15 minutes/day Frequency: does not exercise Bibi/Tenriism: Religion Special bibi needs: No Agree to transfusion: Yes Seatbelt use: sometimes Helmet use: No Drive intox or ride w/intox dump truck driver off highway: No Water heater temp set <120 deg: Yes Working smoke detector in home: Yes Fire extinguisher in home: Yes Carbon monox detector in home: Yes Do you feel safe at home: Yes Do you feel safe in your relationship?: Yes Victim of physical abuse: No Victim of emotional abuse: No Victim of sexual abuse: No Would you like helpful sources: No Additional Social history: Recently in the [facility] x 2 mos. Didn't feel she needed to be there. She reports was supposed to be a 2 week stay. She said she did all her own care. She says the staff is stretched thin. She can take care of herself at home just fine. She says her family is more worried about her than they need to be. Exam Narrative Exam Narrative: She is lying in her ICU bed. Her left shoulder is in a brace following shoulder surgery. She recognizes who I am and is enthusiastic about telling her story. Resp Effort & Inspection: normal respiratory effort and able to speak in complete sentences Auscultation: abnormal I/E ratio and diminished lung sounds Cardio Rate: regular rate Heart Sounds: murmur Results Last Vital Signs Temp 97.5 F L 12/06/21 07:02 Pulse 72 12/06/21 06:46 Resp 21 12/06/21 07:00 BP 137/61 12/06/21 07:02 Pulse Ox 97 12/06/21 07:02 Labs Result diagrams: 12/06/21 06:45 12/06/21 06:45 Labs: Laboratory Results - last 24 hr 12/06/21 12/06/21 06:45 06:45 Hgb 10.1 L Hct 31.4 L Sodium 140 Potassium 4.2 Chloride 102 Carbon Dioxide 30.1 Anion Gap 7.9 BUN 20 H Creatinine 1.4 H Estimated GFR/1.73 m2 37.18 Glucose 178 H Calcium 8.7 Magnesium 2.1 Triglycerides 213 H Total Cholesterol 126 LDL Cholesterol, Calc 57 HDL Cholesterol 27 L
[2021-12-06] MEDS: Escitalopram 20 MG TAB PO (08:32)
[2021-12-06] MEDS: Insulin Aspart 300 UNITS/3 ML PEN SC ×6 (08:32→22:43)
[2021-12-06] MEDS: Celecoxib 100 MG CAP PO ×2 (08:32→20:01)
[2021-12-06] MEDS: Metoprolol 12.5 MG TAB PO ×2 (08:33→20:01)
[2021-12-06] MEDS: Pantoprazole 40 MG TABCR PO ×2 (08:33→20:02)
[2021-12-06] MEDS: Spironolactone 25 MG TAB PO (08:33)
[2021-12-06] MEDS: Furosemide 40 MG TAB PO (08:33)
[2021-12-06] MEDS: Lidocaine 5% Patch 1 PATCH TP (08:33)
[2021-12-06] MEDS: Midodrine 2.5 MG TAB 10 MG PO ×3 (08:33→20:02)
--- NOTE | 2021-12-06 09:30 | PT.INTREAT ---
Date of service: 12/06/21 Time of Service: 09:30 PT Notes Visit Reasons: AFIB RVR,NSTEMI,Dehydration,Anemia Inpatient Physical Therapy Treatment Note [facility] Date: 12/06/2021 PRECAUTIONS: Fall. NWB L UE. Per orthopod: No formal rehab on the R shoulder for 6 weeks. L UE abduction sling on at all times. SUBJECTIVE: Elly complains of 10/10 L shoulder and arm pain at rest due to ill-fitting abduction sling that she was originally given. Agreeable to changing said sling to a smaller size for better fit. Reported a sense of spinning while in standing position. Wants to wait until later for a walk. Unsure if foign home today is safe for her. OBJECTIVE: ? PAIN: 9-10/10 in the L shoulder and L arm BED MOBILITY/TRANSFERS? Sit-stand: CGA? Stand-sit: CGA? GAIT? Assistive Device: SPC? Weight bearing: Full Assist: CGA? Distance:? 3 steps ? Deviation: Complained of sensation of swirling requiring CGA of PT for safety. ASSESSMENT:? Patient was given a large sized L UE sling which has not helped with immobilizing L shoulder and with pain relief. PT secured medium-sized sling and patient expressed a huge difference with comfort and pain level. Reported 4-5/10 pain with new sling. Would like to rest for now and hopes to be able to do more this afternoon. Refused to do maneuver to address vertigo at this time as she does not want to aggravate her L shoulder/arm pain. DISCHARGE RECOMMENDATIONS: [] Home with no services [] [] Home with services [specify] [] Home with outpatient PT [] [X] SNF for continued rehabilitation . Patient will benefit from fpc facility placement for continued skilled physical therapy services in order to progress mobility level, strength, and balance in preparation for a safe discharge to home. [] [facility] [employer] [] [] SNF versus LTC based on ability to participate and progress [] TREATMENT CODE/TIME: 20936 x 27 minutes and 17 minutes for 3 units beginning at 8:53 AM and 9:30 AM. CC:
--- NOTE | 2021-12-06 09:43 | OT.INNT ---
Date of service: 12/06/21 Time of Service: 09:43 Occupational Therapy Notes 12/06/21 OT consult received and pts chart was reviewed. OT went in to see pt and she was unavaible working with another provider. OT will re-attempt consult tomorrow. Trinidad Philip, OTR/L
[2021-12-06] MEDS: Clopidogrel 75 MG TAB PO (10:20)
[2021-12-06] MEDS: Heparin 5,000 UNITS/ML VIAL 5000 UNITS SC ×2 (11:28→22:36)
--- NOTE | 2021-12-06 11:58 | PGE_ITS ---
Date of Service Date of service: 12/06/21 Time of Service: 11:59 Assessment and Plan Assessment and plan (1) NSTEMI (non-ST elevated myocardial infarction): Status: Acute Assessment and plan: In setting of rapid Afib as well as post-op anemia. Clinically stable. HR is controlled, no recurrences of Afib/RVR. Continue metoprolol 12.5 mg PO BID, statin. Plavix resumed today. Will need outpatiet cardiology follow up, but no plans for further ischemic workup on this admission. (2) Atrial fibrillation with tachycardic ventricular rate: Status: Acute Assessment and plan: No recurrences of rapid Afib in at least 3 days. Continue lopressor 12.5 mg PO BID. Per cardiology, echo would be difficult given recent L shoulder surgery and is non-emergent. Will defer full anticoagulation for 2 weeks after surgery. (3) Anemia: Status: Chronic Assessment and plan: s/p 2 units pRBCs on this admission. H/H remains stable. I feel comfortable re-introducing plavix at this point. Continue to monitor H/H. (4) Pre-syncope: Status: Acute Assessment and plan: In setting of symptomatic anemia and new onset rapid Afib. There is also a component of vertigo. The patient is not sure if meclizine helped. Continue midodrine and monitor orthostatic BPs. Working with PT to see if there is a vertigenous component that can be fixed and if the patient is safe for ambulation. (5) Acute on chronic congestive heart failure with right ventricular diastolic dysfunction: Status: Acute Assessment and plan: Volume status stable. Continue PO lasix + aldactone Did not sleep on CPAP - her CPAP was not delivered home yet. (6) Shoulder fracture, left: Status: Acute Assessment and plan: PT/OT consulted. Qualifiers: Encounter type: subsequent encounter Fracture type: closed Fracture healing: with delayed healing Qualified Code(s): S42.92XG - Fracture of left shoulder girdle, part unspecified, subsequent encounter for fracture with delayed healing (7) Pulmonary fibrosis: Status: Chronic Assessment and plan: Hold Ofev until 12/08. (8) Chronic respiratory failure with hypoxia: Status: Chronic Assessment and plan: On 1.5 L of O2 by NC at this time. Monitor O2 sats on ambulation. (9) IDDM (insulin dependent diabetes mellitus): Status: Chronic Assessment and plan: Increase long acting insulin. Continue prandial carb coverage + SSI. (10) DVT prophylaxis: Status: Acute Assessment and plan: SC heparin while monitoring H/H. (11) Discharge planning issues: Status: Acute Assessment and plan: Full code. Anticipate discharge home tomorrow with home health nursing, PT, OT services. Transferred to [facility] on 12/04/21. Subjective Subjective Interval history since last seen: Continues to feel dizzy - which she describes worse with change in position, but not necessarily just standing up. She is wondering if pain medication may be making her dizzy, but she has not noticed worsening of dizziness after she takes the meds. She has not walked with PT yet. Denies chest pain, shortness of breath, nausea. Thinks she won't be ready to go home until tomorrow. Exam Narrative Exam Narrative: General: Pleasant elderly female who is not short of breath, looks better today, A&Ox3, dry cough HEENT: EOMI, MMM Heart: RRR, no m/r/g Lungs: quiet rhonchi on expiration B, dry cough Abdomen: soft, nontender, nondistended Extremities: no edema BLE's Objective Last Vital Signs Temp 36.4 C L 12/06/21 07:02 Pulse 72 12/06/21 06:46 Resp 21 12/06/21 07:00 BP 137/61 12/06/21 07:02 Pulse Ox 95 12/06/21 10:17 Laboratory Results - last 24 hr 12/06/21 12/06/21 06:45 06:45 Hgb 10.1 L Hct 31.4 L Sodium 140 Potassium 4.2 Chloride 102 Carbon Dioxide 30.1 Anion Gap 7.9 BUN 20 H Creatinine 1.4 H Estimated GFR/1.73 m2 37.18 Glucose 178 H Calcium 8.7 Magnesium 2.1 Triglycerides 213 H Total Cholesterol 126 LDL Cholesterol, Calc 57 HDL Cholesterol 27 L
[2021-12-06] MEDS: Ondansetron 4 MG/2 ML VIAL IVP (13:27)
[2021-12-06] MEDS: Normal Saline Flush 10 ML SYR IVP (13:27)
[2021-12-06] MEDS: Ondansetron 4 MG/2 ML VIAL (13:43)
--- NOTE | 2021-12-06 15:11 | PT.INTREAT ---
Date of service: 12/06/21 Time of Service: 13:12 PT Notes Visit Reasons: AFIB RVR,NSTEMI,Dehydration,Anemia Inpatient Physical Therapy Treatment Note [facility] Date: 12/06/2021 PRECAUTIONS: Fall, NWB L UE, Activity as tolerated SUBJECTIVE: Elly is pleasant and agreeable to participating in PT. She states that she wants to get up and move. She hopes to be discharged to home tomorrow after she walks a few times. She does not want to discharge to a SNF for short term rehab. OBJECTIVE: Held further PT, as patient had nausea with emesis post-gait training. PAIN: Patient c/o L UE soreness BED MOBILITY/TRANSFERS Supine-sit: S with HOB at 30 degrees Sit-stand: SBA Stand-sit: SBA GAIT Assistive Device: SPC Weight bearing: Full Assist: CGA Distance: 60' Deviation: C/o nausea, no dizziness ASSESSMENT: Patient tolerated session with nausea and emesis post-gait training. She was able to tolerate a progression in gait distance with SPC support and CGA. PLAN: Continue with gait training with SPC for improved activity tolerance and safety with mobility with the goal of returning to home upon discharge. TREATMENT CODE/TIME: 15 minutes; [id number] (13:12)
--- NOTE | 2021-12-06 17:48 | CMPROGNOTE_ITS ---
- If Service Date Differs Date of service: 12/06/21 Time of Service: 17:49 Care Management Progress Note S/O: Elly continues to be closely monitored and treated. She continues to work with PT though has ongoing dizziness, nausea and emesis. She remains pleasant in interaction and continues to advocate for returning home. 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 CM continues to follow. A: 71 year old female admitted to [facility] 12/02/21 for AFIB RVR, NSTEMI, Dehydration, anemia P: Elly continues to be closely monitored and treated per MD. Anticipate she will discharge home with new [facility] [id number]-[id number] faxed to [facility] for review. CM continues to follow.
[2021-12-06] MEDS: Atorvastatin 40 MG TAB 80 MG PO (20:02)
[2021-12-06] MEDS: Magnesium Oxide 400 MG TAB PO (20:06)
[2021-12-06] MEDS: Insulin Glargine 300 UNITS/3 ML PEN 20 UNITS SC (22:44)
[2021-12-07] VITALS (11 sets, daily range): BP systolic 114–131; BP diastolic 49–69; PULSE 57–88; RESP 12–27; TEMP 36; O2SAT 92–100
[2021-12-07] MEDS: Clopidogrel 75 MG TAB PO (07:42)
[2021-12-07] MEDS: Midodrine 2.5 MG TAB 10 MG PO (07:42)
[2021-12-07] MEDS: Pantoprazole 40 MG TABCR PO (07:42)
[2021-12-07] MEDS: Furosemide 40 MG TAB PO (07:42)
[2021-12-07] MEDS: oxyCODONE 10 MG TAB PO (07:42)
[2021-12-07] MEDS: Metoprolol 12.5 MG TAB PO (07:42)
[2021-12-07] MEDS: Escitalopram 20 MG TAB PO (07:42)
[2021-12-07] MEDS: Spironolactone 25 MG TAB PO (07:42)
[2021-12-07] MEDS: Lidocaine 5% Patch 1 PATCH TP (07:43)
[2021-12-07] MEDS: Celecoxib 100 MG CAP PO (07:45)
--- NOTE | 2021-12-07 08:20 | PT.INTREAT ---
Date of service: 12/07/21 Time of Service: 07:54 PT Notes Visit Reasons: AFIB RVR,NSTEMI,Dehydration,Anemia Inpatient Physical Therapy Treatment Note [facility] Date: 12/07/2021 PRECAUTIONS: Fall, NWB L UE, Activity as tolerated SUBJECTIVE: Elly is pleasant and agreeable to participating in PT. She hopes to be discharged to home, as she does not want to discharge to a SNF for short term rehab. She reports that she feels good other than some soreness in her L UE. OBJECTIVE: PAIN: Patient c/o L UE soreness BED MOBILITY/TRANSFERS Sit-stand: S Stand-sit: S GAIT Assistive Device: SPC Weight bearing: Full Assist: SBA Distance: 120' Deviation: None THEREX: Held for nursing to perform morning assessment and administer medications. ASSESSMENT: Patient tolerated session well without complaint of fatigue, SOB, or dizziness. She was able to tolerate a progression in gait distance with SPC support and SBA. PLAN: Continue with gait training with SPC for improved activity tolerance and safety with mobility with the goal of returning to home upon discharge. TREATMENT CODE/TIME: 12 minutes; [id number] (07:54)
[2021-12-07] MEDS: Insulin Aspart 300 UNITS/3 ML PEN SC ×2 (09:00→10:09)
--- NOTE | 2021-12-07 09:00 | OT.INIE ---
Occupational Therapy Notes Inpatient Occupational Therapy Evaluation Date: 12/07/21 Referring Doctor:Renee De Jesus NP OT Orders: Non Urgent Precautions: Fall, standard, Full PATIENT PROFILE/ADMITTING DIAGNOSIS: Pt is a 71 year old female who was admitted through the ED with the following dx of new onset A-fib, LLQ pain, anemia, acute dehydration, pre-syncope, shoulder fx, immunoglobulin deficitency, chronic pulmonary aspiration, orthostatic hypotension, acute congestive heart failure, NSTEMI, SOB, gastroparesis, rib fxs. Past Medical History: All Active Problems?(Updated 12/02/21 @ 22:46 by Fabian Lassiter MD) LLQ pain (Acute) Atrial fibrillation with tachycardic ventricular rate (Acute) Anemia (Chronic) Acute dehydration (Acute) Pre-syncope (Acute) Shoulder fracture, left (Acute) Immunoglobulin deficiency (Acute) Chronic pulmonary aspiration (Acute) Anemia (Chronic) Grief (Chronic) brother Novow-level of literacy (Chronic) Palliative care patient (Acute) Orthostatic hypotension (Acute) Acute congestive heart failure (Acute) NSTEMI (non-ST elevated myocardial infarction) (Acute) Shortness of breath (Acute) Syncope (Chronic) Ribs, multiple fractures (Acute) IDDM (insulin dependent diabetes mellitus) (Chronic) Hiatal hernia (Chronic) Acute on chronic congestive heart failure with right ventricular diastolic dysfunction (Acute) Pulmonary fibrosis (Chronic) Renal insufficiency (Chronic) Functional encopresis (Chronic) Palliative care patient (Chronic) Pulmonary hypertension (Chronic) Chronic respiratory failure with hypoxia (Chronic) Advance directive on file (Acute) Internal derangement of right knee (Chronic) Back pain (Chronic) Asthma (Chronic) Osteoporosis (Chronic 03/16/18) Neck pain (Chronic 03/16/18) Migraine (Chronic 04/03/14) Long-term use of high-risk medication (Chronic 03/16/18) Interstitial lung disease (Acute 03/16/18) Pulm: JedlovskyGastroesophageal reflux disease without esophagitis (Chronic 03/16/18) Essential hypertension (Chronic 07/17/13) Edema (Chronic 03/16/18) Dyspnea (Chronic 03/16/18) Depressive disorder (Chronic) Cognitive impairment (Chronic 03/16/18) Mild, w/Memory Loss Anxiety (Chronic 03/16/18) Umbilical hernia (Chronic) Type II diabetes mellitus, uncontrolled (Chronic) Total urinary incontinence (Chronic) Shoulder pain (Chronic) left- surgery Post herpetic neuralgia (Chronic 03/16/18) Peripheral neuralgia (Chronic) Medical History?(Updated 12/02/21 @ 22:46 by Fabian Lassiter MD) Abdominal pain Acute gastroenteritis (03/16/18) Acute kidney injury (nontraumatic) Acute pneumonitis SYD (acute kidney injury) Anosognosia Asthma Chest wall pain COPD (chronic obstructive pulmonary disease) COVID-19 ruled out by laboratory testing Dehydration Discharge planning issues Discharge planning issues DKA (diabetic ketoacidoses) DKA (diabetic ketoacidoses) DKA (diabetic ketoacidosis) DVT prophylaxis DVT prophylaxis Encounter to establish care Fracture of humerus, proximal, left, closed (05/02/21) History of shingles (03/16/18) Hyperlipemia Inflammatory disorder of digestive tract Insulin dependent diabetes mellitus Metabolic acidosis with normal anion gap and bicarbonate losses Nausea & vomiting 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 Appendectomy Arthroscopy, Shoulder leftBilateral salpingectomy with oophorectomy section Cholecystectomy Age 20. Hisoleg of section Ligation of fallopian tube Thoracoscopic (R)Lung Bx (02/12/18) Social History/Home Situation: Pt previously lived with her grandson in an apartment in [facility]. She was (I) with all ADLs/IADLs at her baseline level of function. She has a tub shower and utilizes a shower bench. A neighbor helps with her flight engineer instructor as she is unable to do this on her own. She gets food from meals on wheels. She notes that she has been performing her grocery shopping with her brother with whom she shares a car with and can drive at times, in the grocery store she utilizes a electric scooter. She states that she gets rides from [facility] for doctors appointments if her brother is not available. She has a grandson who does live with her again now. She reports that her neighbors and her grandson take care of her and (A) her with all of her ADLs. SUBJECTIVE:? Pt was sitting in bed when OT arrived, she is agreeable to OT consult. OBJECTIVE: General Observation: Pleasant and agreeable, sling on (L) UE Mental Status: A& Ox3 Pain: pt states she is not in pain at this time. ROM: RUE AROM WFL L UE NT STRENGTH: RUE 4+/5 throughout LUE NT FUNCTIONAL MOBILITY/ADLS: BATHING Pt has concerns on bathing routine in her tub shower. She describes using a stool to step on. OT educates pt on the safety aspect of using a stool and how that could increase a fall risk. OT educates pt on transferring in her tub and the importance of having someone there when she showers. OT also recommends that an assessment by HHOT may be necessary to ensure safety with pts showering routine in the home setting. DRESSING Education and training provided to pt on UE dressing including her shirt and sling with mod vc throughout. OT educated pt on holding position of arm while changing her shirt and maintaining position while doing so. Pt is receptive to this, OT educates that she will need (A) with this. GROOMING (I) with brushing hair seated in bed. BALANCE:? Static sitting Normal Dynamic Sitting Normal SPECIAL TESTS: Daily Activity Limitations Standardized Measure [facility] ? AM -PAC ? ?6 clicks? Daily Activity Inpatient Short Form: Raw score: 21 ? Standardized score: 44.27? CMS score: 32.79% ? INFORMED CONSENT/EDUCATION: Pt instructed in purpose of OT Consult and plan of care. ASSESSMENT: ? Patient is a 71-year-old female referred to occupational therapy services with diagnosis of new onset A-fib, LLQ pain, anemia, acute dehydration, pre-syncope, shoulder fx, immunoglobulin deficitency, chronic pulmonary aspiration, orthostatic hypotension, acute congestive heart failure, NSTEMI, SOB, gastroparesis, rib fxs. Pt was seen for initial evaluation today she is agreeable to consult but states that she is at her baseline and needs help due to her fx but that she has (A) in her home setting at all times. Patient is assessed as a? Moderate 11600 complexity based on the following: History: see above Examination: see functional limitations as noted above Presentation: evolving Decision Making: [facility] 21 GOALS N/A seen for OT consult only. PLAN OF CARE/TREATMENT PLAN: Seen for OT consult only DISCHARGE RECOMMENDATIONS home when medically cleared per MD, pt is concerned about her bathroom set up, OT recommends that HHOT assess her bathroom for further DME needs if needed for pts safety. TREATMENT TIME/MINUTES/CODES 87223, [id number], 20 minutes (08:40) Trinidad Philip OTR/L [facility]
[2021-12-07 09:41] LABS: ALT 20 U/L (14-59); AST 18 U/L (15-37); Albumin 2.9 g/dL (3.4-5.0); Alkaline Phosphatase 139 U/L (46-116); Anion Gap 6.3 mmol/L (3-11); BUN 24 mg/dL (7-18); Bilirubin, Total 0.9 mg/dL (0.2-1.0); CO2 33.7 mmol/L (21.0-32.0); CREATININE 1.3 mg/dL (0.55-1.02); Calcium 9.4 mg/dL (8.5-10.1); Chloride 100 mmol/L (98-107); Estimated GFR 40.49 (mL/min/1.73m2); Glucose 212 mg/dL (74-106); Potassium 4.3 mmol/L (3.5-5.1); Sodium 140 mmol/L (136-145); Total Protein 7.3 g/dL (6.4-8.2)
--- NOTE | 2021-12-07 09:58 | DSE_ITS ---
Date of service: 12/07/21 Time of Service: 09:59 DS: Diagnosis Discharge Diagnosis (1) Pre-syncope: Status: Acute (2) Symptomatic anemia: Status: Acute (3) New onset a-fib: Status: Acute (4) NSTEMI (non-ST elevated myocardial infarction): Status: Acute (5) Shoulder fracture, left: Status: Chronic (6) Pulmonary fibrosis: Status: Chronic (7) Chronic respiratory failure with hypoxia: Status: Chronic (8) IDDM (insulin dependent diabetes mellitus): Status: Chronic (9) Hiatal hernia: Status: Chronic Discharge Plan Disposition Patient Disposition: HOME W/HOME HEALTH SERVICE Condition: Improving Discharge Details Reason For Visit: AFIB RVR,NSTEMI,Dehydration,Anemia Admit Date/Time: 12/02/21 20:21 Admit Provider: Fabian Lassiter Attending Provider: Fabian Lassiter Primary Care Provider: Dharmesh Nolasco Hospital Course Hospital Course: Ms Pina is a 71 year old female with PMHx of chronic hypoxic respiratory failure due to pulmonary fibrosis, normally on 2-4 L of O2 by NC and ofev therapy, as well as h/o IDDM2, HTN, GERD, hiatal hernia, who was admitted to [facility] ICU on 12/02/21 after a near syncopal episode in setting of acute post-op anemia (L shoulder surgery at [facility]; Hgb of 8.3 in dehydrated state, down to 7.2 the following day), as well as new onset Rapid Afib. The patient was treated with IVF, 2 units pRBCS and converted to NSR. She was initiated on metoprolol 12.5 mg PO BID. She did have evidence of elevated troponin in setting of her acute anemia as well as rapid Afib, which was evaluated by cardiology. She was felt to have a type 2 NSTEMI rather than a primary ACS. As far as Afib, given her post-op anemia, anticoagulation was recommended to be held for 2 weeks from surgery. She will need an outpatient echo once her L shoulder healing permits for appropriate positioning, but she was not felt to require this on in-patient basis. The patient's hemoglobin had remained stable x 48 hrs, at which point we resumed her plavix. She was evaluated by and worked with PT, who felt that the patient would benefit from home health PT until she can start working with outpatient PT. We also feel she would benefit from home health nursing, OT, LOCK ASSEMBLER. She is at her baseline oxygen requirement and is ready for discharge home today with above services and with a 30 day cardiac event recorder. She can resume taking ofev tomorrow, 12/08/21. She should follow up with her PCP in 1-2 weeks, with cardiology in 2-4 weeks, with [facility] orthopedics as scheduled. Home health nursing to perform CBC, BMP, magnesium blood draw in 1 week (12/14/21) - results to PCP. Care for patient as well as completion of her discharge summary took 45 minutes on the day of discharge. Home Meds and New Rx's Prescriptions: New magnesium oxide 400 mg (241.3 mg magnesium) Tablet 400 mg PO HS Qty: 30 0RF metoprolol tartrate 25 mg Tablet 12.5 mg PO BID Qty: 30 0RF Continued (DME) Wheeled walker with seat and basket Qty: 1 0RF Dose Instruction: As directed Rx Instructions: As directed, for ambulation with need to store portable oxygen and medications (DME) FreeStyle Kaye 2 [place] Misc See Rx Instructions .ROUTE .MEDSUPPLY Qty: 1 0RF Rx Instructions: As directed (DME) FreeStyle Kaye 2 Sensor Kit See Rx Instructions .ROUTE .MEDSUPPLY Qty: 1 11RF Rx Instructions: As directed ondansetron HCl [Zofran] 4 mg tablet 4 mg PO Q6H 0RF pantoprazole 40 mg tablet,delayed release (DR/EC) 40 mg PO BID Qty: 90 6RF (DME) Oxygen Tank See Rx Instructions .ROUTE .MEDSUPPLY Qty: 1 0RF Label Comments: 2l with exertion Rx Instructions: As directed, 1L oxygen at HS. escitalopram oxalate 20 mg tablet 20 mg PO DAILY Qty: 90 4RF cholecalciferol (vitamin D3) 1,250 mcg (50,000 unit) capsule 1,250 mcg PO QWEEK 0RF albuterol sulfate [Ventolin HFA] 90 mcg/actuation HFA aerosol inhaler 2 puff Inhalation Q4H PRN Qty: 1 12RF Rx Instructions: 18GM Ofev 150 mg capsule 150 mg PO Q12H Qty: 60 12RF albuterol sulfate 2.5 mg /3 mL (0.083 %) solution for nebulization 2.5 mg inhalation Q4H PRN (Reason: shortness of breath or wheezing) Qty: 90 8RF benzonatate 100 mg capsule 100 mg PO TID PRN (Reason: cough) Qty: 30 1RF polyethylene glycol 3350 [Miralax] 17 gram/dose powder 17 g PO DAILY 0RF multivitamin [Daily Multi-Vitamin] Tablet 1 tab PO DAILY 0RF loperamide [Anti-Diarrheal (loperamide)] 2 mg tablet 2 mg PO Q6H PRN (Reason: loose stool) Qty: 60 2RF (DME) pen needle, diabetic [BD Ultra-Fine Short Pen Needle] 31 gauge x 5/16 needle See Rx Instructions .ROUTE .MEDSUPPLY Qty: 1200 4RF Rx Instructions: 7 times per day oxycodone 10 mg tablet 10 mg PO Q4H MDD 4 tabs PRN (Reason: pain) Qty: 100 0RF (DME) Oxygen Tank See Dose Instructions .ROUTE .MEDSUPPLY Qty: 1 0RF Label Comments: Dr. Clarita Santiago Rx Instructions: As directed (DME) Face mask to deliver Oxygen Qty: 2 6RF Dose Instruction: As directed Rx Instructions: As directed (DME) pen needle, diabetic [Pen Needle] 31 gauge x 5/16 needle 1 ea Miscellaneous QID Qty: 4 12RF Rx Instructions: Dx: E11.65 400 needles/month for use with tresiba and humalog spironolactone 25 mg tablet 25 mg PO DAILY Qty: 30 11RF (DME) Blood Glucose Test Strip 1 ea Miscellaneous TID Qty: 400 12RF Rx Instructions: PT USES INSULIN. TESTS QID AND PRN. (DME) lancets 28 gauge misc 1 ea Miscellaneous TID Qty: 400 12RF Rx Instructions: PT USES INSULIN. Test QID, to keep HbA1c less than 6.5% midodrine 10 mg tablet 10 mg PO TID Qty: 180 4RF epinephrine [EpiPen 2-Gordon] 0.3 mg/0.3 mL auto-injector 0.3 mg IM ONCE PRN (Reason: anaphylaxis) Qty: 1 3RF insulin lispro [Humalog KwikPen Insulin] 100 unit/mL insulin pen 4 - 24 unit SUBCUT AC Qty: 15 4RF clopidogrel 75 mg tablet 75 mg PO DAILY Qty: 90 3RF atorvastatin 80 mg tablet 80 mg PO QPM Qty: 90 3RF celecoxib 100 mg capsule 100 mg PO BID Qty: 60 3RF Digestive Enzyme (acidoph,pec) 50 million cell-100 mg tablet 1 tab PO BID Qty: 90 3RF furosemide 40 mg tablet 40 mg PO DAILY Qty: 90 3RF cyclobenzaprine 5 mg tablet 5 mg PO DAILY PRN (Reason: muscle spasm) Qty: 90 6RF lidocaine [Lidoderm] 5 % adhesive patch,medicated 1 patch topical DAILY Qty: 30 3RF Rx Instructions: leave on most painful area for up to 12 hrs Lantus Solostar U-100 Insulin 100 unit/mL (3 mL) insulin pen 18 unit SUBCUT .NIGHTLY 0RF acetaminophen [Tylenol] 325 mg Tablet 650 mg PO Q4H PRN PRNQty: 0 0RF Discharge Instructions Instructions: Heart Attack (DC), A-fib (Atrial Fibrillation) (DC), Anemia (DC) Additional Instructions: Resume taking ofev tomorrow. Return to the hospital with any fever, bleeding, worsening dizziness, chest pain, shortness of breath. Follow up with your PCP in 1-2 weeks. Follow up with orthopaedics at [facility] as previously scheduled. Follow up with cardiology in 2-4 weeks. Referrals: ORTHOPAEDICS,[facility] [OTHER] - Dharmesh Nolasco, NUCLEAR FUEL ENRICHMENT TECHNICIAN [Primary Care Provider] - Elly Fernandez MD [ [facility] STAFF PHYSICIAN] - Activity:: nonweight bearing to LUE Equipment/Supplies:: cardiac event recorder Diet:: heart healthy carb consistent Discharge Orders Discharge Orders: Discharge Order (Routine); Ordered 12/07/21 Ordered By: Randi Dyer Other Ambulatory Orders: Cardiac Event Recorder (Routine) Timeframe: 1 Day Facility: [facility] - Location: Respiratory Therapy Ordered By: Randi Dyer DS: Summary Time Spent with Patient providing and/or coordinating discharge services: Greater than 30 minutes Status at Discharge Functional status at discharge: uses cane/walker Overall status at discharge: patient is back to baseline Mental Status: mental status grossly normal Speech and Movement: speech and movement normal Mood: congruent mood Affect: normal affect Exam Narrative Exam Narrative: General: Pleasant elderly female who is not short of breath, looks better today, A&Ox3, dry cough HEENT: EOMI, MMM Heart: RRR, no m/r/g Lungs: quiet rales at B bases dry cough Abdomen: soft, nontender, nondistended Extremities: trace edema BLE's Psych Mental Status: mental status grossly normal Speech and Movement: speech and movement normal Mood: congruent mood Affect: normal affect DS: Data Vitals/I&O Vitals and I&O: Vital Signs Temperature 36 C L 12/07/21 07:30 Temperature Source Temporal Artery Scan 12/07/21 07:30 Pulse 74 12/07/21 08:10 Pulse Rhythm Regular 12/07/21 07:30 Pulse 64 12/07/21 09:00 Respiratory Rate 19 12/07/21 09:00 Respiratory Effort 12/07/21 07:30 Respiratory Depth Normal 12/07/21 07:30 Respiratory Pattern Normal 12/07/21 07:30 Blood Pressure 114/69 12/07/21 08:10 Blood Pressure Mean 79 12/07/21 08:10 Blood Pressure Position Supine 12/04/21 15:33 Pulse Oximetry 98 12/07/21 08:02 Oxygen Delivery Method Nasal Cannula 12/07/21 07:30 Oxygen Flow Rate 3 12/07/21 07:30 Fraction of Inspired Oxygen (FIO2) 29 12/06/21 10:17 Pain Level 9 12/07/21 07:42 Comment 12/07/21 07:30 Intake & Output 12/06/21 12/06/21 12/07/21 11:59 23:59 11:59 Intake Total 100 / 580 480 / 580 240 / 240 Output Total 1550 / 1550 1350 / 1350 Balance 100 / -970 -1070 / -970 -1110 / -1110 Weight 76.8 kg Intake: Oral 100 / 580 480 / 580 240 / 240 Output: Urine 1050 / 1050 1350 / 1350 Emesis 500 / 500 Other: Urine Color Yellow Yellow Urine Appearance Clear Cloudy Cloudy Urine Odor None Normal Comment mixed with small amount loose stool mixed with stool in commode Stool Size Small Small Stool Characteristics Soft Soft Emesis Description Undigested Food Gastric Occult Blood Negative Voiding Methods Bedside Commode Bedside Commode Data Completed and Pending Completed studies during hospitalization [Text1]: CTA chest: 1. No evidence of pulmonary embolism, thoracic aortic dissection or aneurysm. 2. Multifocal ground-glass opacities in the lungs.? The findings are suspicious for pneumonia.? The findings would be consistent with COVID-19 pneumonia.? Please correlate clinically. (clinically, the patient tested negative for COVID-19, and her findings are chronic, c/w her known ILD/pulmonary fibrosis). CT abdomen/pelvis: No acute abdominal or pelvic process.? Labs on day of discharge: Labs from last 24 hours 12/07/21 08:40 Sodium 140 Potassium 4.3 Chloride 100 Carbon Dioxide 33.7 H Anion Gap 6.3 BUN 24 H Creatinine 1.3 H Estimated GFR/1.73 m2 40.49 Glucose 212 H Calcium 9.4 Total Bilirubin 0.9 AST 18 ALT 20 Alkaline Phosphatase 139 H Total Protein 7.3 Albumin 2.9 L PFSH All Active Problems (Updated 12/07/21 @ 10:05 by Randi Dyer MD) Symptomatic anemia (Acute) New onset a-fib (Acute) Discharge planning issues (Acute) DVT prophylaxis (Acute) LLQ pain (Acute) Atrial fibrillation with tachycardic ventricular rate (Acute) Anemia (Chronic) Acute dehydration (Acute) Pre-syncope (Acute) Shoulder fracture, left (Chronic) Immunoglobulin deficiency (Acute) Chronic pulmonary aspiration (Acute) Anemia (Chronic) Grief (Chronic) brother Nov 2020 Low-level of literacy (Chronic) Palliative care patient (Acute) Orthostatic hypotension (Acute) Acute congestive heart failure (Acute) NSTEMI (non-ST elevated myocardial infarction) (Acute) Shortness of breath (Acute) Syncope (Chronic) Ribs, multiple fractures (Acute) IDDM (insulin dependent diabetes mellitus) (Chronic) Hiatal hernia (Chronic) Acute on chronic congestive heart failure with right ventricular diastolic dysfunction (Acute) Pulmonary fibrosis (Chronic) Renal insufficiency (Chronic) Functional encopresis (Chronic) Palliative care patient (Chronic) Pulmonary hypertension (Chronic) Chronic respiratory failure with hypoxia (Chronic) Advance directive on file (Acute) Internal derangement of right knee (Chronic) Back pain (Chronic) Osteoporosis (Chronic 03/16/18) Neck pain (Chronic 03/16/18) Migraine (Chronic 04/03/14) Long-term use of high-risk medication (Chronic 03/16/18) Interstitial lung disease (Acute 03/16/18) Pulm: [place] Gastroesophageal reflux disease without esophagitis (Chronic 03/16/18) Essential hypertension (Chronic 07/17/13) Edema (Chronic 03/16/18) Dyspnea (Chronic 03/16/18) Depressive disorder (Chronic) Cognitive impairment (Chronic 03/16/18) Mild, w/Memory Loss Anxiety (Chronic 03/16/18) Umbilical hernia (Chronic) Type II diabetes mellitus, uncontrolled (Chronic) Total urinary incontinence (Chronic) Shoulder pain (Chronic) left- surgery Post herpetic neuralgia (Chronic 03/16/18) Peripheral neuralgia (Chronic) Medical History (Updated 12/07/21 @ 10:05 by Randi Dyer MD) Abdominal pain Acute gastroenteritis (03/16/18) Acute kidney injury (nontraumatic) Acute pneumonitis SYD (acute kidney injury) Anosognosia Asthma Asthma Chest wall pain COPD (chronic obstructive pulmonary disease) COVID-19 ruled out by laboratory testing Dehydration Discharge planning issues Discharge planning issues DKA (diabetic ketoacidoses) DKA (diabetic ketoacidoses) DKA (diabetic ketoacidosis) DVT prophylaxis DVT prophylaxis Encounter to establish care Fracture of humerus, proximal, left, closed (05/02/21) History of shingles (03/16/18) Hyperlipemia Inflammatory disorder of digestive tract Insulin dependent diabetes mellitus Metabolic acidosis with normal anion gap and bicarbonate losses Nausea & vomiting 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 History of section Ligation of fallopian tube Thoracoscopic (R)Lung Bx (02/12/18) Family History Mother , aged 81 from dementia, per Elly Diabetes Essential hypertension CHF (congestive heart failure) Heart disease CHF/heart failure Dementia Father , aged 80 Diabetes Essential hypertension CAD (coronary artery disease) Heart disease [place] Hyperlipidemia Stroke Sister , aged 54 Diabetes Personal history of malignant neoplasm Lung Asthma Lung cancer Brother , of mesithelioma aged 62 Diabetes Essential hypertension Personal history of malignant neoplasm Lung, Prostate Hyperlipidemia Asthma Mesothelioma Brother , of PE following knee surgery age 69 Pulmonary embolus with infarction Daughter No problems noted. Son No problems noted. 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 Pets and animals: Yes Pets and animals: cat(s) Sexually active: No Do you think of yourself as: straight/heterosexual Current gender identity: female What is your relationship status?: How often do you talk on the phone with friends or family?: three or more times per week How often do you get together with friends or relatives?: three or more times per week How often do you attend yazidism or caodaism services?: 1-3 times per year Do you belong to any clubs or organized social groups?: no Panel score (0-1 are the most socially isolated patients): 1 What type of physical activity do you participate in: none and sedentary lifestyle Duration: < 15 minutes/day Frequency: does not exercise Bibi/Adventist: Pentecostal Special bibi needs: No Agree to transfusion: Yes Seatbelt use: sometimes Helmet use: No Drive intox or ride w/intox driver guard: No Water heater temp set <120 deg: Yes Working smoke detector in home: Yes Fire extinguisher in home: Yes Carbon monox detector in home: Yes Do you feel safe at home: Yes Do you feel safe in your relationship?: Yes Victim of physical abuse: No Victim of emotional abuse: No Victim of sexual abuse: No Would you like helpful sources: No Additional Social history: Recently in the [facility] x 2 mos. Didn't feel she needed to be there. She reports was supposed to be a 2 week stay. She said she did all her own care. She says the staff is stretched thin. She can take care of herself at home just fine. She says her family is more worried about her than they need to be.
[2021-12-07] MEDS: Heparin 5,000 UNITS/ML VIAL 5000 UNITS SC (10:13)
[2021-12-07] MEDS: Normal Saline Flush 10 ML SYR IVP (10:22)
--- NOTE | 2021-12-07 10:27 | PDOC.HHF2F_ITS ---
Home Health Certification Home Health Certification: 1. Encounter Date and Reason I certify that Elly Pina was seen by Randi Dyer on 12/07/21 and that I had a [id number] encounter with this patient that meets the physician face to face encounter requirements. 2. Clinical Findings Supporting Skilled Need and Homebound Status I certify that home health services are medically necessary, include either intermittent assisted and/or physical/speech therapy, and that this patient is homebound in that absences from the home require considerable and taxing effort and are infrequent or of short duration, or are attributable to the need to receive medical care. [X] (a) Attached documentation from encounter provides clinical findings supporting skilled need and homebound status (including what assistance patient requires to leave the home). The encounter with the patient was in whole, or in part, for the following medical condition, which is the primary reason for home health care: AFIB RVR,NSTEMI,Dehydration,Anemia Half-Way: Follow up for post-op anemia, new diagnosis of Afib (now converted to NSR), NSTEMI on her admission. Will need CBC w/diff, BMP, magnesium drawn on 12/14/21. Results to PCP. Physical Therapy: eval and treat Occupational Therapy: eval and treat PHONE TRIAGE SPECIALIST: evaluate need for resources in the community. Homebound: unable to leave home without assistance 3. Certification and Authentication I certify that I composed the above information based on my clinical judgement relating to this patient's medical condition and, if applicable, clinical findings communicated to me by the NPP or inpatient physician who performed the Home Health Referral. All further orders will be obtained through ___Dharmesh Nolasco (Community Based Physician - PCP)
--- NOTE | 2021-12-07 11:13 | CMDISCH_ITS ---
- If Service Date Differs Date of service: 12/07/21 Time of Service: 11:13 LACE Index Scoring Tool - Questions: Length of Stay (in days): 4 - 6 Acuity (Admit via E.D.?): Yes Comorbidities: Diabetes w/o Complication, Chronic Pulmonary Disease E.D. Visits: 3 - Answers: Total Score: 13 Risk of Readmission: High Risk Care Management Discharge Reason for Hospitalization: Afib with RVR, NSTEMI, Dehydration, anemia Discharge Plan: Elly will return home when ready per MD. She will have new order for VNA RN/PT/OT/PATIENT RELATIONS REPRESENTATIVE through [facility] as well as ENGINEER FIRST ASSISTANT and outpatient PT per her grandson, Jorge Luis. She will transport via private vehicle with family. Patient/Family Education Needs: Review discharge instructions, discuss Ask Me Three. Services Needed at Discharge: Home Health Care Services
--- NOTE | 2021-12-07 18:00 | PT.INDS ---
Date of service: 12/07/21 PT Notes Visit Reasons: AFIB RVR,NSTEMI,Dehydration,Anemia Physical Therapy Inpatient Discharge Summary Date: 12/07/21 Dates of service: 12/04/2021 through 12/07/2021 This is a clinical summary of care provided for the duration of dates listed above. No charge was made in the completion of this documentation. Referring Doctor: Randi Dyer PT Orders: PT CONSULT: Limited Ability Precautions: Per [facility] [place] orthopod. No formal shoulder rehab for 6 6 weeks postop. NWB on left UE. Use sling on at all times. Patient Profile/Admitting Diagnosis:?Elly is a 71 yo female that presented to ER on 12/02/21 following syncope event once arriving home from [facility] following left shoulder surgery on 11/30/21. She reports having fallen in April 2021 causing left shoulder fracture, which was just operated on this week.? Subjective: NT. See most recent ETHYLBENZENE CRACKING SUPERVISOR notes. Objective:? General Observation: NT. See most recent ETHYLBENZENE CRACKING SUPERVISOR notes. Mental Status: NT. See most recent ETHYLBENZENE CRACKING SUPERVISOR notes. A&O x3 Pain: NT. See most recent ETHYLBENZENE CRACKING SUPERVISOR notes. ROM: Right Upper Extremity: Shoulder Flexion WFL. Shoulder abduction WFL. Elbow flexion WFL. Wrist flexion WFL. Opening and closing of hand WFL. Left Upper Extremity: Shoulder Flexion impaired secondary to post op status. Shoulder abduction impaired secondary to post op status. Elbow flexion diminished due to sling use. Wrist flexion WFL. Opening and closing of hand WFL. Right Lower Extremity: Hip flexion WFL. Hip abduction WFL. Knee flexion WFL. Ankle dorsiflexion WFL. Ankle plantarflexion WFL. Left Lower Extremity: Hip flexion WFL. Hip abduction WFL. Knee flexion WFL. Ankle dorsiflexion WFL. Ankle plantarflexion WFL. Strength: Right Upper Extremity: Shoulder flexors 5/5. Shoulder abductors 5/5. Elbow flexors 5/5. Elbow extensors 5/5. Data Entry Clerk strong. Left Upper Extremity: Impaired due to post op status. Right Lower Extremity: Hip flexors 5/5. Hip abductors 5/5. Knee flexors 5/5. Knee extensors 5/5. Ankle dorsiflexors 5/5. Ankle plantarflexors 5/5. Left Lower Extremity: Hip flexors 5/5. Hip abductors 5/5. Knee flexors 5/5. Knee extensors 5/5. Ankle dorsiflexors 5/5. Ankle plantarflexors 5/5. Sensation:?Intact as to pain and pressure. Bed Mobility/Transfers: Supine to sit: Supervision Sit to supine: Supervision Stand to sit: Supervision Bed to chair: Standby assist Chair to bed: Standby assist Gait:?120 feet using single-point cane with full weight bearing on BLE and nonweight bearing on the left UE. No nausea, dizziness, and fatigue. Balance:? Static Sitting: Good Dynamic Sitting: Fair Static Standing: Fair Dynamic Standing: Poor Assessment: Patient presents with clinical signs and symptoms consistent with current/admitting diagnoses that have resulted to mobility limitations, gait instability, generalized weakness, and impairment of motor control as demonstrated by the following impairment level findings: 1. Decreased strength to left upper extremity major muscle groups 2. Impaired sitting/standing balance 3. Impaired activity tolerance 4. Limitation of joint range of motion in left shoulder Impairments are contributing to the following functional limitations: 1. Decreased bed mobility skills 2. Increased dependence with transfers 3. Inability to safely ambulate without assistive device and physical assistance 4. Increase completion time for mobility ADL performance 5. Increased fall risk 6. Inability to negotiate steps alone safely Goals: Goals x1 week 1. Supine-Sit: independent NOT MET 2. Sit-Supine: independent NOT MET 3. Sit-Stand: independent NOT MET 4. Stand-Sit: independent NOT MET 5. Bed-Chair: independent NOT MET 6. Chair-Bed: independent NOT MET 7. Independent gait on level surface with use of least restrictive device for at least 300 feet without report of pain nor dyspnea NOT MET 8. Independent stair negotiation while holding onto bilateral rails for at least 10 steps without report of pain nor dyspnea NOT MET 9. Independent with home exercise program NOT MET 10. Good static and dynamic standing balance/tolerance NOT MET DISCHARGE RECOMMENDATIONS: Patient will benefit from home health PT services in order to progress mobility level using least restrictive assistive ambulatory device, assess home safety, identify additional equipment needs, and establish a functional maintenance program that will increase ability of patient to remain at home. TREATMENT CODE/TIME: [place] Thank you for the opportunity to participate in the care of this patient. Iva Roldan PT, DPT, CLT [facility], [place]
== END 2021-12-07 12:00 | disposition home health service (06) | DRG 280 ==
LOC: ER 20:32 → ICU 22:10
PROVIDERS: Family Medicine; Internal Medicine; Admitting Provider Family Medicine; Emergency Provider Emergency Medicine; PCP Nurse Practitioner Family; Visit Provider Family Medicine
DX: I21.A1 Myocardial infarction type 2 (principal); I50.33 Acute on chronic diastolic (congestive) heart failure; J84.9 Interstitial pulmonary disease, unspecified; J96.11 Chronic respiratory failure with hypoxia; I13.0 Hypertensive heart and chronic kidney disease with heart failure and stage 1 through stage 4 chronic kidney disease, or unspecified chronic kidney disease; N17.9 Acute kidney failure, unspecified; I48.91 Unspecified atrial fibrillation; J44.9 Chronic obstructive pulmonary disease, unspecified; E11.22 Type 2 diabetes mellitus with diabetic chronic kidney disease; F32.9 Major depressive disorder, single episode, unspecified; E86.0 Dehydration; D64.9 Anemia, unspecified; Z79.4 Long term (current) use of insulin; Z99.81 Dependence on supplemental oxygen; N18.9 Chronic kidney disease, unspecified; K44.9 Diaphragmatic hernia without obstruction or gangrene; G89.29 Other chronic pain; M54.9 Dorsalgia, unspecified; G43.909 Migraine, unspecified, not intractable, without status migrainosus; K21.9 Gastro-esophageal reflux disease without esophagitis; G31.84 Mild cognitive impairment of uncertain or unknown etiology; M81.0 Age-related osteoporosis without current pathological fracture; Z79.899 Other long term (current) drug therapy; F41.9 Anxiety disorder, unspecified; I27.20 Pulmonary hypertension, unspecified; E78.5 Hyperlipidemia, unspecified; R10.32 Left lower quadrant pain; R53.1 Weakness; I25.2 Old myocardial infarction; G47.33 Obstructive sleep apnea (adult) (pediatric); K57.30 Diverticulosis of large intestine without perforation or abscess without bleeding; K30 Functional dyspepsia; S42.92XG Fracture of left shoulder girdle, part unspecified, subsequent encounter for fracture with delayed healing; K59.00 Constipation, unspecified; R55 Syncope and collapse
CPT/HCPCS: 36410; 36415; 36430; 51702; 71275; 80048; 80053; 80061; 82805; 86850; 86900; 86901; 86920; 87635; 93005; 93270; 96360; 96361; 97110; 97140; 97161; 97166; 97530; 97535; 99222; 99285; 74177; 81003; 81015; 83615; 83735; 83880; 84484; 85014; 85018; 85025; 85610; 85730; 93010; 99223; 99232; 99233; 99239; J1644; J1940; J2405; J3480; J3490; P9016; Q9967

== ENCOUNTER → 2021-12-03 07:50 | Outpatient (BNVA) | payer MEDICARE, MEDICAID, SELFPAY | PROVIDERS: PCP Nurse Practitioner Family; Referring Provider Nurse Practitioner Family; Visit Provider Internal Medicine Cardiovascular Disease | DX: R69 Illness, unspecified (principal) ==

== ENCOUNTER 2021-12-14 03:52 | Outpatient (CLI) | payer MEDICARE, MEDICAID, SELFPAY ==
[2021-12-14 14:00] LABS: HCT 42.6 % (36.0-46.0); HGB 13.4 g/dL (11.2-15.7); MCHC 31.5 % (32.0-36.0); MCV 95.5 fL (80-95); MPV 9.7 fL (8.0-11.0); Platelet Count 467 10^3/uL (130-400); RBC 4.46 10^6/uL (3.93-5.22); RDW 13.9 % (11.7-14.6); RDW-SD 48.9 fL; WBC 12.38 10^3/uL (4.4-10.8)
[2021-12-14 14:50] LABS: ALT 32 U/L (14-59); AST 28 U/L (15-37); Albumin 3.6 g/dL (3.4-5.0); Alkaline Phosphatase 130 U/L (46-116); Anion Gap 7.6 mmol/L (3-11); BUN 33 mg/dL (7-18); Bilirubin, Total 0.4 mg/dL (0.2-1.0); CO2 31.4 mmol/L (21.0-32.0); CREATININE 1.4 mg/dL (0.55-1.02); Calcium 9.1 mg/dL (8.5-10.1); Chloride 106 mmol/L (98-107); Estimated GFR 37.18 (mL/min/1.73m2); Glucose 87 mg/dL (74-106); Sodium 145 mmol/L (136-145); Total Protein 6.8 g/dL (6.4-8.2)
== END 2021-12-14 03:53 | disposition home or self-care (01) ==
LOC: LBO 03:52
PROVIDERS: PCP Nurse Practitioner Family; Visit Provider Family Medicine
DX: I27.20 Pulmonary hypertension, unspecified (principal); D64.9 Anemia, unspecified; E11.9 Type 2 diabetes mellitus without complications; I48.91 Unspecified atrial fibrillation; I10 Essential (primary) hypertension; I25.2 Old myocardial infarction
CPT/HCPCS: 36415; 80053; 85027; 93005; 99214

== ENCOUNTER 2021-12-14 12:48 | Outpatient (CLI) | payer MEDICARE, MEDICAID, SELFPAY ==
--- NOTE | 2021-12-14 12:45 | RT.EKG_ITS ---
APPROVED REPORT Exam: Resting ECG Reason for Exam: a fib Patient Location: O HR:56 bpm ECG Measurements Heart Rate 56 AXIS LA 173 P 12 QRSd 99 QRS -17 QT 464 T 35 QTc 448 Conclusion Sinus rhythm...normal P axis, V-rate 50- 99 Nonspecific IVCD Abnormal R-wave progression, late transition...QRS area<0 in V5/V6 Baseline wander in lead(s) II,III,aVR,aVL,aVF,V1,V2,V3,V4,V5,V6
== END 2021-12-14 12:49 | disposition home or self-care (01) ==
LOC: DI.CARD 12:49
PROVIDERS: PCP Nurse Practitioner Family; Visit Provider Internal Medicine Cardiovascular Disease
DX: I48.91 Unspecified atrial fibrillation (principal); R94.31 Abnormal electrocardiogram [ECG] [EKG]
CPT/HCPCS: 93010

== ENCOUNTER 2022-01-06 04:06 | Outpatient (CLI) | payer MEDICARE, MEDICAID, SELFPAY ==
[2022-01-06] MEDS: Albuterol HFA 18 GM 200 PUFF INH IH (11:54)
[2022-01-06] MEDS: Inhaler, Assist Device 1 EACH MC (11:55)
--- NOTE | 2022-01-07 08:29 | W.CARDEVENT ---
Date of service: 01/07/22 Time of Service: 08:29 Cardiac Event Recorder Referring Provider:: reese Indications:: SOB Cardiac Event Note: This is a 30-day event recorder order for indication of shortness of breath. ?The patient was in normal sinus rhythm for the majority the recording with an average heart rate of 74 bpm. ?There were 0 critical and 0 serious events. ?There was 1 manually recorded event associated with sinus rhythm. ?There were no episodes of atrial fibrillation, no pauses greater than 3 seconds and no evidence of high degree heart block.
== END 2022-01-06 04:07 | disposition home or self-care (01) ==
LOC: RT 04:06
PROVIDERS: PCP Nurse Practitioner Family; Visit Provider Student in an Organized Health Care Education/Training Program
DX: J84.10 Pulmonary fibrosis, unspecified (principal); J96.11 Chronic respiratory failure with hypoxia; R06.09 Other forms of dyspnea; Z77.22 Contact with and (suspected) exposure to environmental tobacco smoke (acute) (chronic); J98.4 Other disorders of lung
CPT/HCPCS: 94060; 94618; 94726

== ENCOUNTER 2022-01-07 08:29 | Outpatient (CLI) | payer MEDICARE, MEDICAID, SELFPAY | END 2022-01-07 08:30 | LOC: CARDO 02-22 11:27 | PROVIDERS: PCP Nurse Practitioner Family; Referring Provider Nurse Practitioner Family; Visit Provider Internal Medicine Cardiovascular Disease | DX: I48.91 Unspecified atrial fibrillation (principal); R06.02 Shortness of breath | CPT/HCPCS: 93272 ==

== ENCOUNTER 2022-02-14 21:06 | Outpatient (REF) | payer MEDICARE, MEDICAID, SELFPAY ==
[2022-02-14 14:35] LABS: ALT 24 U/L (14-59); AST 19 U/L (15-37); Alkaline Phosphatase 114 U/L (46-116); Bilirubin, Direct 0.1 mg/dL (0.0-0.2); Bilirubin, Total 0.6 mg/dL (0.2-1.0); Total Protein 7.1 g/dL (6.4-8.2)
== END 2022-02-14 21:07 | disposition home or self-care (01) ==
LOC: LBN 21:06
PROVIDERS: PCP Nurse Practitioner Family; Visit Provider Student in an Organized Health Care Education/Training Program
DX: J84.10 Pulmonary fibrosis, unspecified (principal); K21.9 Gastro-esophageal reflux disease without esophagitis; Z51.81 Encounter for therapeutic drug level monitoring
CPT/HCPCS: 80076

== ENCOUNTER → 2022-03-14 12:59 | Outpatient (BNVA) | payer MEDICARE, MEDICAID, SELFPAY | PROVIDERS: PCP Nurse Practitioner Family; Referring Provider Nurse Practitioner Family; Visit Provider Internal Medicine Cardiovascular Disease | DX: J96.11 Chronic respiratory failure with hypoxia (principal); I48.91 Unspecified atrial fibrillation; I10 Essential (primary) hypertension | CPT/HCPCS: 99214; 99213 ==

== ENCOUNTER → 2022-03-18 13:38 | Outpatient (BNVA) | payer MEDICARE, MEDICAID, SELFPAY | PROVIDERS: PCP Nurse Practitioner Family; Referring Provider Nurse Practitioner Family; Visit Provider Physical Therapy Assistant | DX: E11.9 Type 2 diabetes mellitus without complications (principal); G47.33 Obstructive sleep apnea (adult) (pediatric); I25.2 Old myocardial infarction; J84.9 Interstitial pulmonary disease, unspecified; J84.10 Pulmonary fibrosis, unspecified; I48.91 Unspecified atrial fibrillation; R11.10 Vomiting, unspecified; R10.9 Unspecified abdominal pain | CPT/HCPCS: 99214 ==

== ENCOUNTER 2022-03-28 03:04 | Outpatient (RCR) | payer MEDICARE, MEDICAID, SELFPAY ==
[2022-03-28] MEDS: Denosumab 60 MG/ML SYR SC (13:04)
[2022-03-28 13:40] LABS: Anion Gap 10.4 mmol/L (3-11); BUN 29 mg/dL (7-18); CO2 28.6 mmol/L (21.0-32.0); CREATININE 1.4 mg/dL (0.55-1.02); Calcium 9.4 mg/dL (8.5-10.1); Chloride 103 mmol/L (98-107); Estimated GFR 37.18 (mL/min/1.73m2); Glucose 152 mg/dL (74-106); Potassium 4.5 mmol/L (3.5-5.1); Sodium 142 mmol/L (136-145)
== END 2022-04-21 23:59 | disposition home or self-care (01) ==
LOC: INF 03:04
PROVIDERS: PCP Nurse Practitioner Family; Visit Provider Internal Medicine
DX: M81.0 Age-related osteoporosis without current pathological fracture (principal)
CPT/HCPCS: 36415; 80048; 96372; J0897

== ENCOUNTER → 2022-03-30 01:56 | Outpatient (CLI) | payer MEDICARE, MEDICAID, SELFPAY ==
--- NOTE | 2022-03-30 07:00 | DI.RAD_ITS ---
Exam(s) RF BARIUM SWALLOW EXAM: RF BARIUM SWALLOW CLINICAL HISTORY: Dysphagia, regurg of food, vomiting,r11.10 TECHNIQUE: 2D and realtime digital imaging was performed. CONTRAST MATERIAL: Oral barium Oral water soluble contrast was administered. COMPARISON: CR XR CHEST 2V PA LATERAL from 09/21/2021 FINDINGS: Performed standing ESOPHAGRAM: Esophagram was attempted successful. As soon as this patient started to drain she starte d to vomit and appear to possibly aspirate. She was not able to continue this study. IMPRESSION: Unsuccessful esophagram. Patient was not able to perform this study. Recommend endoscopy. RADIATION DOSE DELIVERED: myesha Tan=6.37 mGy
[2022-03-30] MEDS: Barium Sulfate 60% W/V 355 ML BTL PO (09:44)
== END ==
PROVIDERS: PCP Nurse Practitioner Family; Visit Provider Physical Therapy Assistant
DX: R11.10 Vomiting, unspecified (principal); R13.10 Dysphagia, unspecified
CPT/HCPCS: 74221

== ENCOUNTER 2022-04-26 13:57 | Emergency (ER) | payer MEDICARE, MEDICAID, SELFPAY ==
[2022-04-26 14:07] VITALS: BP 124/79; PULSE 89; RESP 22; TEMP 35.8; O2SAT 94
--- NOTE | 2022-04-26 15:04 | W.ED.GENAD ---
Discharge Plan Disposition Patient Disposition: HOME Condition: Stable Discharge Details Clinical Impression: Chronic vomiting, Chronic diarrhea Primary Care Provider: Dharmesh Nolasco ED Provider: Aggie Stanford Home Meds and New Rx's Prescriptions: New ciprofloxacin HCl 500 mg tablet 500 mg PO BID 7 Days Qty: 14 0RF promethazine 25 mg tablet 25 mg PO TID PRN (Reason: nausea and vomiting) Qty: 7 0RF Continued (DME) Wheeled walker with seat and basket Qty: 1 0RF Dose Instruction: As directed Rx Instructions: As directed, for ambulation with need to store portable oxygen and medications (DME) FreeStyle Kaye 2 [place] Misc See Rx Instructions .ROUTE .MEDSUPPLY Qty: 1 0RF Rx Instructions: As directed (DME) FreeStyle Kaye 2 Sensor Kit See Rx Instructions .ROUTE .MEDSUPPLY Qty: 1 11RF Rx Instructions: As directed ondansetron HCl [Zofran] 4 mg tablet 4 mg PO Q6H pantoprazole 40 mg tablet,delayed release (DR/EC) 40 mg PO BID Qty: 90 6RF (DME) Oxygen Tank See Rx Instructions .ROUTE .MEDSUPPLY Qty: 1 Label Comments: 2l with exertion Rx Instructions: As directed, 1L oxygen at HS. oxycodone 10 mg tablet 10 mg PO Q4H MDD 4 tabs PRN (Reason: pain) Qty: 100 0RF guaifenesin 200 mg tablet 200 mg PO QID PRN (Reason: cough) Qty: 60 0RF lidocaine [Lidoderm] 5 % adhesive patch,medicated 1 patch topical DAILY Qty: 30 3RF Rx Instructions: leave on most painful area for up to 12 hrs ergocalciferol (vitamin D2) [Vitamin D2] 1,250 mcg (50,000 unit) capsule 1,250 mcg PO Q2W Qty: 4 3RF escitalopram oxalate 20 mg tablet 20 mg PO DAILY Qty: 90 4RF albuterol sulfate [Ventolin HFA] 90 mcg/actuation HFA aerosol inhaler 2 puff Inhalation Q4H PRN Qty: 1 12RF Rx Instructions: 18GM Ofev 150 mg capsule 150 mg PO Q12H Qty: 60 12RF albuterol sulfate 2.5 mg /3 mL (0.083 %) solution for nebulization 2.5 mg inhalation Q4H PRN (Reason: shortness of breath or wheezing) Qty: 90 8RF benzonatate 100 mg capsule 100 mg PO TID PRN (Reason: cough) Qty: 30 1RF polyethylene glycol 3350 [Miralax] 17 gram/dose powder 17 g PO DAILY Hold Instructions: Resume on 04/30/22. hold for 3 days multivitamin [Daily Multi-Vitamin] Tablet 1 tab PO DAILY loperamide [Anti-Diarrheal (loperamide)] 2 mg tablet 2 mg PO Q6H PRN (Reason: loose stool) Qty: 60 2RF (DME) pen needle, diabetic [BD Ultra-Fine Short Pen Needle] 31 gauge x 5/16 needle See Rx Instructions .ROUTE .MEDSUPPLY Qty: 1200 4RF Rx Instructions: 7 times per day celecoxib 100 mg capsule 100 mg PO DAILY Qty: 60 3RF (DME) Oxygen Tank See Dose Instructions .ROUTE .MEDSUPPLY Qty: 1 Label Comments: Dr. Clarita Santiago Rx Instructions: As directed (DME) Face mask to deliver Oxygen Qty: 2 6RF Dose Instruction: As directed Rx Instructions: As directed (DME) pen needle, diabetic [Pen Needle] 31 gauge x 5/16 needle 1 ea Miscellaneous QID Qty: 4 12RF Rx Instructions: Dx: E11.65 400 needles/month for use with tresiba and humalog (DME) Blood Glucose Test Strip 1 ea Miscellaneous TID Qty: 400 12RF Rx Instructions: PT USES INSULIN. TESTS QID AND PRN. (DME) lancets 28 gauge misc 1 ea Miscellaneous TID Qty: 400 12RF Rx Instructions: PT USES INSULIN. Test QID, to keep HbA1c less than 6.5% epinephrine [EpiPen 2-Gordon] 0.3 mg/0.3 mL auto-injector 0.3 mg IM ONCE PRN (Reason: anaphylaxis) Qty: 1 3RF insulin lispro [Humalog KwikPen Insulin] 100 unit/mL insulin pen 4 - 24 unit SUBCUT AC Qty: 15 4RF atorvastatin 80 mg tablet 80 mg PO QPM Qty: 90 3RF furosemide 40 mg tablet 40 mg PO DAILY Qty: 90 3RF cyclobenzaprine 5 mg tablet 5 mg PO DAILY PRN (Reason: muscle spasm) Qty: 90 6RF cholecalciferol (vitamin D3) 1,250 mcg (50,000 unit) capsule 1,250 mcg PO .COMPLEX Qty: 24 3RF Rx Instructions: 1,250 mcg PO twice weekly; metoprolol tartrate 25 mg tablet 12.5 mg PO BID Qty: 45 3RF spironolactone 25 mg tablet 25 mg PO DAILY Qty: 30 11RF Digestive Enzyme (acidoph,pec) 50 million cell-100 mg tablet 1 tab PO BID Qty: 90 3RF magnesium oxide 400 mg (241.3 mg magnesium) tablet 400 mg PO HS Qty: 30 0RF midodrine 10 mg tablet 10 mg PO TID Qty: 180 4RF insulin glargine [Lantus Solostar U-100 Insulin] 100 unit/mL (3 mL) insulin pen 18 unit SUBCUT .NIGHTLY acetaminophen [Tylenol] 325 mg Tablet 650 mg PO Q4H PRN PRNQty: 0 0RF Discharge Instructions Instructions: Acute Nausea and Vomiting (ED), Acute Diarrhea (ED) Additional Instructions: Your labs and imaging today revealed you possibly have a viral gastrointestinal infection. Due to the persistent nature of your symptoms, you are being treated with antibiotics in case this is a bacterial intestinal infection. Your stool sample has been sent for a culture and you will be notified if it is a bacterial infection and if a different antibiotic is indicated. Your CT scan also noted a possible ovarian cyst and it is recommended that your primary care doctor order an outpatient pelvic ultrasound for further evaluation of this if indicated. Your CT scan also noted chronic lung changes which could be further evaluated with an outpatient CT chest which can be ordered by your primary care doctor. Drink plenty of fluids and get plenty of rest. Prescriptions for antibiotics and nausea medication have been sent electronically to your pharmacy. Follow-up with your primary care doctor in 1 week. Return to the emergency department with any worsening or new concerning symptoms. Discharge Data Discharge Date/Time-TO BE ENTERED AT DEPARTURE: 04/26/22 19:14 Discharge Physician: Aggie Stanford Medical Decision Making 71yo F with a history of obesity, anxiety, depression, asthma, COPD, hypertension, hyperlipidemia, appendectomy, cholecystectomy, , oophorectomy who presents for vomiting, diarrhea and abdominal pain for the past month. Patient appears comfortable and nontoxic. She complains of mainly pain with coughing and vomiting. Her vitals are within normal limits. Abdomen is diffusely tender but without rigidity or guarding. Differential diagnosis includes gastroenteritis, colitis, UTI, pyelonephritis, bowel obstruction. We will place an IV, bolus IV fluids, screening labs, urine, CT abdomen pelvis with oral contrast only. This patient was evaluated during a time of global shortage of iodinated contrast media. Based on guidance from the [employer], best practices, and local institutional approaches, an alternative path for evaluating and managing the patient may have been employed in order to provide optimal care during this shortage. The current situation has been discussed with the patient. Labs and imaging reviewed. White blood cell count 16. Creatinine 1.8, increased from baseline. Troponin negative. Lipase within normal limits. Urinalysis does not appear consistent with UTI. CT notes: IMPRESSION: 1. Mild bladder wall thickening and perivesicular fat stranding which could reflect cystitis. 2. Mild wall thickening of the distal colon and rectum without significant pericolonic/rectal fat stranding. Findings are favored secondary to bowel decompression and less likely colitis/proctitis. 3. 1.5 cm fat containing lesion adjacent to the uterus, possibly an ovarian dermoid. Recommend nonemergent follow-up pelvic ultrasound. 4. Ground-glass and consolidative opacities throughout the lung bases with traction bronchiectasis and subpleural reticulations. Findings are similar in appearance to prior CT from 12/02/2021 suggestive of chronic interstitial lung disease. Recommend nonemergent high-resolution CT of the thorax for further characterization. Patient reassessed and she feels better would like to go home. Due to persistent nature of her symptoms, will treat with antibiotics. She was able to provide a urine sample which was sent. Will give a dose of cipro now and prescription sent electronically to her pharmacy. Due to interaction with her medications, will hold on Reglan and Zofran and treat with Phenergan. She has no complaints of rectal pain or itching. She just prior to discharge, patient had return of nausea and diarrhea. Discussed with patient that it would be advisable to stay in the hospital but she is declining stating she would rather go home. Risks of and disability due to worsening condition or missed diagnoses explained and patient understands. She demonstrates capacity to make decisions. Disposition decision made weighing the risks and benefits of hospitalization versus outpatient treatment, the risk for further decompensation, and the patient's wishes. Advised to follow up with the primary care doctor for re-evaluation. Usual and customary return precautions given prior to discharge. Medical Records Medical records reviewed: Yes I reviewed the patient's medical records. Imaging Data Radiologic Study: Radiologist's impression: CT Abdomen And Pelvis Without Contrast Exam date and time: 04/26/2022 5:00 PM Age: 71 years old Clinical indication: Other: Diffuse abd pain, vomiting, diarrhea, R/O colitis, sbo, UTI, pyelo TECHNIQUE: Imaging protocol: Computed tomography of the abdomen and pelvis without contrast. Radiation optimization: All CT scans at this facility use at least one of these dose optimization techniques: automated exposure control; mA and/or kV adjustment per patient size (includes targeted exams where dose is matched to clinical indication); or iterative reconstruction. Other contrast: Oral, omnipapaque 350, 900; COMPARISON: CT ABDOMEN PELVIS W 12/02/2021 11:26 PM FINDINGS: Limitations: Evaluation of the solid organs and vasculature is limited in the absence of IV contrast. Lungs: Ground-glass and consolidative opacities throughout the lung bases. Traction bronchiectasis within the right middle lobe and lingula. Subpleural reticulations. Diaphragm: Moderate-sized hiatal hernia with contrast visualized within the distal esophagus suggesting reflux. Liver: Normal. No mass. Gallbladder and bile ducts: Normal. No calcified stones. No ductal dilation. Pancreas: Severe fatty atrophy of the pancreas. Spleen: Normal. No splenomegaly. Adrenal glands: Normal. No mass. Kidneys and ureters: Mild bilateral perinephric fat stranding, similar to prior exams, favored chronic. No hydronephrosis or stones. No perinephric fluid collection. Stomach and bowel: Mild wall thickening of the distal colon and rectum without significant pericolonic/rectal fat stranding. Mild colonic diverticulosis. No obstruction. Appendix: No evidence of appendicitis. Intraperitoneal space: Unremarkable. No free air. No significant fluid collection. Vasculature: Moderate atherosclerotic calcification of the aorta and its branches. Lymph nodes: Unremarkable. No enlarged lymph nodes. Urinary bladder: Mild bladder wall thickening and perivesicular fat stranding. Reproductive: 1.5 cm fat containing lesion adjacent to the right superolateral aspect of the uterus (series 3, image 763). Bones/joints: Stable mild compression fracture deformity of L1. Mild multilevel degenerative changes of the spine. Soft tissues: Fat stranding within the subcutaneous fat of the anterior abdominal wall, favored injection related. IMPRESSION: 1. Mild bladder wall thickening and perivesicular fat stranding which could reflect cystitis. 2. Mild wall thickening of the distal colon and rectum without significant pericolonic/rectal fat stranding. Findings are favored secondary to bowel decompression and less likely colitis/proctitis. 3. 1.5 cm fat containing lesion adjacent to the uterus, possibly an ovarian dermoid. Recommend nonemergent follow-up pelvic ultrasound. 4. Ground-glass and consolidative opacities throughout the lung bases with traction bronchiectasis and subpleural reticulations. Findings are similar in appearance to prior CT from 12/02/2021 suggestive of chronic interstitial lung disease. Recommend nonemergent high-resolution CT of the thorax for further characterization. Lab Data Lab results reviewed: Yes I reviewed the patient's lab results. Labs: Laboratory Tests Range/Units 04/26/22 04/26/22 04/26/22 14:30 14:30 15:10 WBC (4.4-10.8) 10^3/uL 16.78 H RBC (3.93-5.22) 10^6/uL 4.28 Hgb (11.2-15.7) g/dL 13.8 Hct (36.0-46.0) % 43.5 MCV (80-95) fL 102 H MCH (27.0-33.0) pg 32.2 MCHC (32.0-36.0) % 31.7 L RDW (11.7-14.6) % 14.0 Plt Count (130-400) 10^3/uL 377 MPV (8.0-11.0) fL 10.0 Immature Gran % 0.4 Neutrophils % 78.3 Lymphocytes % 11.9 Monocytes % 5.1 Eosinophils % 3.8 Basophils % 0.5 Nucleated RBC % (0.0-0.3) % 0.0 Absolute Neutrophils (1.2-6.7) 10^3/uL 13.14 H Absolute Lymphocytes (1.2-3.4) 10^3/uL 2.00 Absolute Monocytes (0.1-0.8) 10^3/uL 0.86 H Absolute Eosinophils (0.0-0.7) 10^3/uL 0.64 Absolute Basophils (0.0-0.2) 10^3/uL 0.08 Sodium (136-145) mmol/L 136 Potassium (3.5-5.1) mmol/L 4.8 Chloride (98-107) mmol/L 98 Carbon Dioxide (21.0-32.0) mmol/L 27.6 Anion Gap (3-11) mmol/L 10.4 BUN (7-18) mg/dL 27 H Creatinine (0.55-1.02) mg/dL 1.8 H Estimated GFR/1.73 m2 (mL/min/1.73m2) 27.82 Glucose (74-106) mg/dL 303 H Calcium (8.5-10.1) mg/dL 9.7 Magnesium (1.8-2.4) mg/dL 2.4 Total Bilirubin (0.2-1.0) mg/dL 0.8 AST (15-37) U/L 25 ALT (14-59) U/L 23 Alkaline Phosphatase (46-116) U/L 121 H Troponin I (<or=60) ng/L < 50 Total Protein (6.4-8.2) g/dL 8.2 Albumin (3.4-5.0) g/dL 3.8 Lipase (73-393) U/L 67 Urine Color (Yellow) Urine Clarity (Clear) Urine pH (5-8) Ur Specific [place] (1.005-1.025) Urine Protein (Negative) mg/dL Urine Ketones (Negative) mg/dL Urine Blood (Negative) Urine Nitrite (Negative) Urine Bilirubin (Negative) Urine Urobilinogen (Up TO 0.2) EU/dL Ur Leukocyte Esterase (Negative) Urine RBC (0-2) HPF Urine WBC (0-5) HPF Ur Epithelial Cells (Negative) HPF Urine Crystals (Negative) HPF Urine Bacteria (Negative) HPF Urine Casts (Negative) LPF Urine Mucus (Negative) Ur Culture Indicated? Urine Glucose (Negative) mg/dL Range/Units 04/26/22 15:10 WBC (4.4-10.8) 10^3/uL RBC (3.93-5.22) 10^6/uL Hgb (11.2-15.7) g/dL Hct (36.0-46.0) % MCV (80-95) fL MCH (27.0-33.0) pg MCHC (32.0-36.0) % RDW (11.7-14.6) % Plt Count (130-400) 10^3/uL MPV (8.0-11.0) fL Immature Gran % Neutrophils % Lymphocytes % Monocytes % Eosinophils % Basophils % Nucleated RBC % (0.0-0.3) % Absolute Neutrophils (1.2-6.7) 10^3/uL Absolute Lymphocytes (1.2-3.4) 10^3/uL Absolute Monocytes (0.1-0.8) 10^3/uL Absolute Eosinophils (0.0-0.7) 10^3/uL Absolute Basophils (0.0-0.2) 10^3/uL Sodium (136-145) mmol/L Potassium (3.5-5.1) mmol/L Chloride (98-107) mmol/L Carbon Dioxide (21.0-32.0) mmol/L Anion Gap (3-11) mmol/L BUN (7-18) mg/dL Creatinine (0.55-1.02) mg/dL Estimated GFR/1.73 m2 (mL/min/1.73m2) Glucose (74-106) mg/dL Calcium (8.5-10.1) mg/dL Magnesium (1.8-2.4) mg/dL Total Bilirubin (0.2-1.0) mg/dL AST (15-37) U/L ALT (14-59) U/L Alkaline Phosphatase (46-116) U/L Troponin I (<or=60) ng/L Total Protein (6.4-8.2) g/dL Albumin (3.4-5.0) g/dL Lipase (73-393) U/L Urine Color (Yellow) Yellow Urine Clarity (Clear) Clear Urine pH (5-8) 5.5 Ur Specific [place] (1.005-1.025) 1.025 Urine Protein (Negative) mg/dL 30 H Urine Ketones (Negative) mg/dL 15 H Urine Blood (Negative) Negative Urine Nitrite (Negative) Negative Urine Bilirubin (Negative) Negative Urine Urobilinogen (Up TO 0.2) EU/dL 0.2 Ur Leukocyte Esterase (Negative) Negative Urine RBC (0-2) HPF Negative Urine WBC (0-5) HPF 0-2 Ur Epithelial Cells (Negative) HPF Negative Urine Crystals (Negative) HPF Negative Urine Bacteria (Negative) HPF Few Urine Casts (Negative) LPF 10-20 Hyaline Urine Mucus (Negative) Heavy Ur Culture Indicated? No Urine Glucose (Negative) mg/dL Negative HPI General Mode of arrival: ambulatory. Date/Time Provider Initiated Documentation: 04/26/22 14:08. Limitations to Documentation: no limitations. Information obtained by: patient. HPI Narrative: Patient is a 71-year-old female with a history of obesity, anxiety, depression, asthma, COPD, hypertension, hyperlipidemia, appendectomy, cholecystectomy, , oophorectomy, tubal ligation who presents for multiple episodes of vomiting and diarrhea with intermittent abdominal pain for the past month. Patient states symptoms worse today after eating [employer] fries. She states that she vomits usually 3 times daily which is mainly food or bile. She states she has a few episodes of watery and loose brown diarrhea daily. She states her abdominal pain is constant but worse with coughing and vomiting. She denies fever, recent antibiotics, recent known sick contacts or recent travel. Related Data Home Medications Medication Instructions Recorded Confirmed Oxygen #1 ea 11/29/18 04/26/22 Wheeled walker with seat and basket #1 ea 02/07/19 04/26/22 Face mask to deliver Oxygen #2 ea 04/23/19 04/26/22 pen needle, diabetic 31 gauge x ##4 08/03/20 04/26/2203/07 (Pen Needle) flash glucose scanning reader #1 ea 02/23/21 04/26/22 (FreeStyle Kaye 2 [place]) flash glucose sensor (FreeStyle #1 ea 02/23/21 04/26/22 Kaye 2 Sensor kit) blood sugar diagnostic (Blood #400 strips 03/10/21 04/26/22 Glucose Test strips) lancets 28 gauge #400 ea 03/10/21 04/26/22 acetaminophen 325 mg tablet 650 mg PO Q4H PRN PRN #0 tabs 03/24/21 04/26/22 (Tylenol) pantoprazole 40 mg tablet,delayed 40 mg PO BID #90 tabs 05/14/21 04/26/22 release escitalopram oxalate 20 mg tablet 20 mg PO DAILY #90 tabs 05/20/21 04/26/22 ondansetron HCl 4 mg tablet 4 mg PO Q6H 05/25/21 04/26/22 (Zofran) epinephrine 0.3 mg/0.3 mL 0.3 mg (0.3 mL) IM ONCE PRN 05/27/21 04/26/22 injection, auto-injector (EpiPen anaphylaxis #1 ea 2-Gordon) insulin lispro 100 unit/mL 4 - 24 unit (0.04 - 0.24 mL) 06/30/21 04/26/22 subcutaneous pen (Humalog KwikPen subcut AC #15 mL (U-100) Insulin) Oxygen #1 ea 08/16/21 04/26/22 albuterol sulfate 2.5 mg/3 mL 2.5 mg (3 mL) inhalation Q4H PRN 08/16/21 04/26/22 (0.083 %) solution for nebulization shortness of breath or wheezing #90 mL albuterol sulfate 90 mcg/actuation 2 puff inhalation Q4H PRN ##1 08/16/21 04/26/22 aerosol inhaler (Ventolin HFA) nintedanib 150 mg capsule (Ofev) 150 mg PO Q12H #60 caps 08/16/21 04/26/22 atorvastatin 80 mg tablet 80 mg PO QPM #90 tabs 08/23/21 04/26/22 benzonatate 100 mg capsule 100 mg PO TID PRN cough #30 caps 09/27/21 04/26/22 furosemide 40 mg tablet 40 mg PO DAILY #90 tabs 10/27/21 04/26/22 loperamide 2 mg tablet 2 mg PO Q6H PRN loose stool #60 11/01/21 04/26/22 (Anti-Diarrheal (loperamide)) tabs multivitamin (Daily Multi-Vitamin 1 tab PO DAILY 11/01/21 04/26/22 tablet) pen needle, diabetic 31 gauge x #1,200 ea 11/01/21 04/26/2203/07 (BD Ultra-Fine Short Pen Needle) polyethylene glycol 3350 17 17 g PO DAILY 11/01/21 04/26/22 gram/dose oral powder (Miralax) cyclobenzaprine 5 mg tablet 5 mg PO DAILY PRN muscle spasm #90 11/22/21 04/26/22 tabs insulin glargine 100 unit/mL (3 18 unit subcut .NIGHTLY 12/02/21 04/26/22 mL) subcutaneous pen (Lantus Solostar U-100 Insulin) cholecalciferol (vitamin D3) 1,250 1,250 mcg PO .COMPLEX #24 caps 01/17/22 04/26/22 mcg (50,000 unit) capsule ergocalciferol (vitamin D2) 1,250 1,250 mcg PO Q2W #4 caps 01/21/22 04/26/22 mcg (50,000 unit) capsule (Vitamin D2) lidocaine 5 % topical patch 1 patch topical DAILY #30 ea 01/21/22 04/26/22 (Lidoderm) metoprolol tartrate 25 mg tablet 12.5 mg PO BID #45 tabs 01/24/22 04/26/22 celecoxib 100 mg capsule 100 mg PO DAILY #60 caps 02/23/22 04/26/22 guaifenesin 200 mg tablet 200 mg PO QID PRN cough #60 tabs 03/04/22 04/26/22 oxycodone 10 mg tablet 10 mg PO Q4H PRN pain #100 tabs 03/04/22 04/26/22 spironolactone 25 mg tablet 25 mg PO DAILY #30 tabs 03/11/22 04/26/22 digestive no.8-L.acidophilus 50 1 tab PO BID #90 tabs 03/24/22 04/26/22 million cell-pectin 100 mg tablet (Digestive Enzyme (acidophilus, pectin, bromelain)) magnesium oxide 400 mg (241.3 mg 400 mg PO HS #30 tabs 03/24/22 04/26/22 magnesium) tablet midodrine 10 mg tablet 10 mg PO TID #180 tabs 03/24/22 04/26/22 ciprofloxacin HCl 500 mg tablet 500 mg PO BID 7 days #14 tabs 04/26/22 04/26/22 promethazine 25 mg tablet 25 mg PO TID PRN nausea and 04/26/22 04/26/22 vomiting #7 tabs Previous Rx's Medication Instructions Recorded Wheeled walker with seat and basket #1 ea 02/07/19 Face mask to deliver Oxygen #2 ea 04/23/19 pen needle, diabetic 31 gauge x ##4 08/03/2003/07 (Pen Needle) flash glucose scanning reader #1 ea 02/23/21 (FreeStyle Kaye 2 [place]) flash glucose sensor (FreeStyle #1 ea 02/23/21 Kaye 2 Sensor kit) blood sugar diagnostic (Blood #400 strips 03/10/21 Glucose Test strips) lancets 28 gauge #400 ea 03/10/21 acetaminophen 325 mg tablet 650 mg PO Q4H PRN PRN #0 tabs 03/24/21 (Tylenol) pantoprazole 40 mg tablet,delayed 40 mg PO BID #90 tabs 05/14/21 release escitalopram oxalate 20 mg tablet 20 mg PO DAILY #90 tabs 05/20/21 epinephrine 0.3 mg/0.3 mL 0.3 mg (0.3 mL) IM ONCE PRN 05/27/21 injection, auto-injector (EpiPen anaphylaxis #1 ea 2-Gordon) insulin lispro 100 unit/mL 4 - 24 unit (0.04 - 0.24 mL) 06/30/21 subcutaneous pen (Humalog KwikPen subcut AC #15 mL (U-100) Insulin) albuterol sulfate 2.5 mg/3 mL 2.5 mg (3 mL) inhalation Q4H PRN 08/16/21 (0.083 %) solution for nebulization shortness of breath or wheezing #90 mL albuterol sulfate 90 mcg/actuation 2 puff inhalation Q4H PRN ##1 08/16/21 aerosol inhaler (Ventolin HFA) nintedanib 150 mg capsule (Ofev) 150 mg PO Q12H #60 caps 08/16/21 atorvastatin 80 mg tablet 80 mg PO QPM #90 tabs 08/23/21 benzonatate 100 mg capsule 100 mg PO TID PRN cough #30 caps 09/27/21 furosemide 40 mg tablet 40 mg PO DAILY #90 tabs 10/27/21 loperamide 2 mg tablet 2 mg PO Q6H PRN loose stool #60 11/01/21 (Anti-Diarrheal (loperamide)) tabs pen needle, diabetic 31 gauge x #1,200 ea 11/01/2103/07 (BD Ultra-Fine Short Pen Needle) cyclobenzaprine 5 mg tablet 5 mg PO DAILY PRN muscle spasm #90 11/22/21 tabs cholecalciferol (vitamin D3) 1,250 1,250 mcg PO .COMPLEX #24 caps 01/17/22 mcg (50,000 unit) capsule ergocalciferol (vitamin D2) 1,250 1,250 mcg PO Q2W #4 caps 01/21/22 mcg (50,000 unit) capsule (Vitamin D2) lidocaine 5 % topical patch 1 patch topical DAILY #30 ea 01/21/22 (Lidoderm) metoprolol tartrate 25 mg tablet 12.5 mg PO BID #45 tabs 01/24/22 celecoxib 100 mg capsule 100 mg PO DAILY #60 caps 02/23/22 guaifenesin 200 mg tablet 200 mg PO QID PRN cough #60 tabs 03/04/22 oxycodone 10 mg tablet 10 mg PO Q4H PRN pain #100 tabs 03/04/22 spironolactone 25 mg tablet 25 mg PO DAILY #30 tabs 03/11/22 digestive no.8-L.acidophilus 50 1 tab PO BID #90 tabs 03/24/22 million cell-pectin 100 mg tablet (Digestive Enzyme (acidophilus, pectin, bromelain)) magnesium oxide 400 mg (241.3 mg 400 mg PO HS #30 tabs 03/24/22 magnesium) tablet midodrine 10 mg tablet 10 mg PO TID #180 tabs 03/24/22 ciprofloxacin HCl 500 mg tablet 500 mg PO BID 7 days #14 tabs 04/26/22 promethazine 25 mg tablet 25 mg PO TID PRN nausea and 04/26/22 vomiting #7 tabs Allergies Allergy/AdvReac Type Severity Reaction Status Date / Time aspirin Allergy Unknown HIVES, Verified 04/26/22 21:30 flip out diclofenac Allergy Unknown RASH Verified 04/26/22 21:30 latex Allergy Unknown SKIN Verified 04/26/22 21:30 BREAKDOWN NSAIDS (Non-Steroidal Allergy Unknown HIVES, Verified 04/26/22 21:30 Anti-Inflamma VOMITING morphine AdvReac Unknown VOMITING Verified 04/26/22 21:30 General Stated Complaint: Nausea/Vomit/Diar ALVIN: 3 Review of Systems All systems reviewed & are unremarkable except as noted in HPI and below Constitutional Constitutional: Denies chills, Denies excessive sweating, Denies fatigue, Denies fever(s), Denies weakness and Denies weight loss Eyes Eyes: Reports system reviewed and no additional complaints, except as documented and Denies blurry vision ENT Ears, Nose, Mouth, and Throat: Denies vertigo, Denies dizziness, Denies otalgia, Denies nasal congestion, Denies sore throat and Denies throat swelling Cardiovascular Cardiovascular: Denies chest pain, Denies syncope, Denies rapid heart rate and Denies dyspnea Respiratory Respiratory: Denies chest congestion, Denies cough, Denies pain on inspiration and Denies dyspnea Gastrointestinal Gastrointestinal: Reports abdominal pain, Reports diarrhea and Reports vomiting Genitourinary Genitourinary: Denies hematuria, Denies dysuria and Denies flank pain Musculoskeletal Musculoskeletal: Denies back pain and Denies joint swelling Integumentary/Breasts Skin/Breast: Denies lesions and Denies rash Neurologic Neurologic: Denies behavioral changes, Denies confusion, Denies vertigo, Denies dizziness, Denies syncope, Denies localized weakness and Denies weakness Psychiatric Psychiatric: Denies behavioral changes, Denies confusion and Denies depression Endocrine Endocrine: Denies excessive sweating and Denies fatigue Hematologic/Lymphatic Hematologic/Lymphatic: Denies easy bruising and Denies lymphadenopathy Allergic/Immunologic Allergic/Immunologic: Denies throat swelling PFSH All Active Problems (Updated 04/27/22 @ 00:10 by Trevin Dykes MD) Chronic vomiting (Acute) Chronic diarrhea (Acute) Acute dehydration (Acute) Regurgitation of food (Acute) Renal insufficiency (Chronic) Symptomatic anemia (Acute) New onset a-fib (Acute) Anemia (Chronic) Immunoglobulin deficiency (Acute) Chronic pulmonary aspiration (Acute) Grief (Chronic) brother Nov 2020 Low-level of literacy (Chronic) Palliative care patient (Acute) Orthostatic hypotension (Acute) Acute congestive heart failure (Acute) NSTEMI (non-ST elevated myocardial infarction) (Acute) Shortness of breath (Acute) Syncope (Chronic) IDDM (insulin dependent diabetes mellitus) (Chronic) Hiatal hernia (Chronic) Pulmonary fibrosis (Chronic) Renal insufficiency (Chronic) Functional encopresis (Chronic) Palliative care patient (Chronic) Pulmonary hypertension (Chronic) Chronic respiratory failure with hypoxia (Chronic) Advance directive on file (Acute) Long-term use of high-risk medication (Chronic 03/16/18) Interstitial lung disease (Acute 03/16/18) Pulm: [place]sky Gastroesophageal reflux disease without esophagitis (Chronic 03/16/18) Dyspnea (Chronic 03/16/18) Cognitive impairment (Chronic 03/16/18) Mild, w/Memory Loss Umbilical hernia (Chronic) Type II diabetes mellitus, uncontrolled (Chronic) Total urinary incontinence (Chronic) Medical History Abdominal pain Acute gastroenteritis (03/16/18) Acute kidney injury (nontraumatic) Acute pneumonitis SYD (acute kidney injury) Anosognosia Anxiety (03/16/18) Asthma Back pain Chest wall pain COPD (chronic obstructive pulmonary disease) Cough Cubital tunnel syndrome (03/16/18) Dehydration Depressive disorder Discharge planning issues DKA (diabetic ketoacidosis) DVT prophylaxis Edema (03/16/18) Encounter to establish care Essential hypertension (07/17/13) Fracture of humerus, proximal, left, closed (05/02/21) History of shingles (03/16/18) Hyperlipemia Inflammatory disorder of digestive tract Insulin dependent diabetes mellitus Internal derangement of right knee Medication monitoring encounter Metabolic acidosis with normal anion gap and bicarbonate losses Migraine (04/03/14) Nausea & vomiting Neck pain (03/16/18) 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 History of section Ligation of fallopian tube Thoracoscopic (R)Lung Bx (02/12/18) Family History Mother , aged 81 from dementia, per Elly Diabetes Essential hypertension CHF (congestive heart failure) Heart disease CHF/heart failure Dementia Father , aged 80 Diabetes Essential hypertension CAD (coronary artery disease) Heart disease [place] Hyperlipidemia Stroke Sister , aged 54 Diabetes Personal history of malignant neoplasm Lung Asthma Lung cancer Brother , of mesithelioma aged 62 Diabetes Essential hypertension Personal history of malignant neoplasm Lung, Prostate Hyperlipidemia Asthma Mesothelioma Brother , of PE following knee surgery age 69 Pulmonary embolus with infarction Daughter No problems noted. Son No problems noted. Social History Smoking/Tobacco Use Status: Never Smoking risk assessment performed?: Yes Alcohol Intake: current Alcohol Intake frequency: holidays/special occasions only Details: monthly or less Drug use: Never Substance use type: does not use Adopted: No Caregiver/Support person: No Foster care: No Household members: none Housing: apartment Number of Children: 2 number of grandchildren: 5 Communication Needs: Hard of Hearing and Corrective Lenses Education Level: middle school Do you need help understanding health information?: Always current occupation: retired [employer] Pets and animals: Yes Pets and animals: cat(s) Sexually active: No Do you think of yourself as: straight/heterosexual Current gender identity: female What is your relationship status?: How often do you talk on the phone with friends or family?: three or more times per week How often do you get together with friends or relatives?: three or more times per week How often do you attend religion or protestant services?: 1-3 times per year Do you belong to any clubs or organized social groups?: no Panel score (0-1 are the most socially isolated patients): 1 What type of physical activity do you participate in: none and sedentary lifestyle Duration: < 15 minutes/day Frequency: does not exercise Bibi/Adventism: Church Special bibi needs: No Agree to transfusion: Yes Seatbelt use: sometimes Helmet use: No Drive intox or ride w/intox milk delivery driver: No Water heater temp set <120 deg: Yes Working smoke detector in home: Yes Fire extinguisher in home: Yes Carbon monox detector in home: Yes Do you feel safe at home: Yes Do you feel safe in your relationship?: Yes Victim of physical abuse: No Victim of emotional abuse: No Victim of sexual abuse: No Would you like helpful sources: No Additional Social history: Recently in the [facility] x 2 mos. Didn't feel she needed to be there. She reports was supposed to be a 2 week stay. She said she did all her own care. She says the staff is stretched thin. She can take care of herself at home just fine. She says her family is more worried about her than they need to be. Exam Const General: cooperative and no acute distress Orientation: alert, awake and oriented x3 HENMT Head: normal to inspection Ears: hearing grossly normal bilaterally, external ears normal and TM's normal bilaterally General nose exam: external nose normal Face and sinus: normal facial exam Mouth: oral mucosae normal Teeth and gingiva: dentition normal Throat: posterior oropharynx normal Eyes General: appearance normal, both eyes and all related structures Eyelids: eyelids normal Pupils: PERRL EOM: EOM intact bilaterally Neck Neck: normal visual inspection Lymphatic: no lymphadenopathy noted Chest Chest: normal inspection of the chest Resp Effort & Inspection: normal respiratory effort and able to speak in complete sentences Auscultation: clear to auscultation bilaterally Cardio Rate: regular rate Rhythm: regular rhythm GI Inspection: normal to inspection Palpation: soft, not firm, no guarding, no hepatosplenomegaly, no masses and nontender Auscultation: hypoactive bowel sounds Skin General skin exam: no rashes or lesions noted Neuro General: patient alert, patient awake, moves all extremities, no meningeal signs and no focal motor deficits Cranial Nerves: CN's II-XI intact bilaterally Cognition: normal cognition Speech: speech normal Gait: normal gait Motor: muscle tone normal throughout, strength 5/5 throughout and no pronator drift Sensory Exam: no sensory deficits noted Extrem General: normal to inspection, full ROM and capillary refill normal Psych Appearance: grossly normal Mental Status: mental status grossly normal Speech and Movement: speech and movement normal Affect: normal affect Thought Process: normal Course Vital Signs Vital signs: Vital Signs Temperature 96.4 F L 04/26/22 14:07 Pulse 89 04/26/22 14:07 Respiratory Rate 22 04/26/22 14:07 Blood Pressure 124/79 04/26/22 14:07 Pulse Oximetry 94 04/26/22 14:07 Temperature 96.4 F L 04/26/22 14:07 Temperature Source Skin 04/26/22 14:07 Pulse 89 04/26/22 14:07 Respiratory Rate 22 04/26/22 14:07 Respiratory Effort 04/26/22 14:34 Blood Pressure 124/79 04/26/22 14:07 Blood Pressure Position Sitting 04/26/22 14:07 Pulse Oximetry 94 04/26/22 14:07 Oxygen Delivery Method Nasal Cannula 04/26/22 14:07 Oxygen Flow Rate 3 04/26/22 14:07 Pain Level 6 04/26/22 14:07 Comment 04/26/22 14:07
[2022-04-26 15:06] LABS: Abs Immature Grans 0.06 10^3/uL (0.0-0.06); Absolute Basophil Count 0.08 10^3/uL (0.0-0.2); Absolute Eosinophil Count 0.64 10^3/uL (0.0-0.7); Absolute Monocyte Count 0.86 10^3/uL (0.1-0.8); Absolute Neutrophil Count 13.14 10^3/uL (1.2-6.7); Basophils % 0.5; Eosinophils % 3.8; HCT 43.5 % (36.0-46.0); HGB 13.8 g/dL (11.2-15.7); Immature Grans % 0.4; Lymphocytes % 11.9; MCH 32.2 pg (27.0-33.0); MCHC 31.7 % (32.0-36.0); MCV 102 fL (80-95); Monocytes % 5.1; Neutrophils % 78.3; Platelet Count 377 10^3/uL (130-400); RBC 4.28 10^6/uL (3.93-5.22); RDW-SD 53.2 fL; WBC 16.78 10^3/uL (4.4-10.8)
[2022-04-26 15:22] LABS: Bilirubin Negative (Negative); Blood Negative (Negative); Clarity Clear (Clear); Glucose Negative (Negative); Ketones 15 mg/dL (Negative); Leukocyte Esterase Negative (Negative); Nitrite Negative (Negative); Specific Gravity 1.025 (1.005-1.025); Urobilinogen 0.2 EU/dL (Up TO 0.2); pH 5.5 (5-8)
[2022-04-26 15:24] LABS: Lipase 67 U/L (73-393)
[2022-04-26 15:25] LABS: ALT 23 U/L (14-59); AST 25 U/L (15-37); Albumin 3.8 g/dL (3.4-5.0); Alkaline Phosphatase 121 U/L (46-116); Anion Gap 10.4 mmol/L (3-11); BUN 27 mg/dL (7-18); Bilirubin, Total 0.8 mg/dL (0.2-1.0); CO2 27.6 mmol/L (21.0-32.0); CREATININE 1.8 mg/dL (0.55-1.02); Calcium 9.7 mg/dL (8.5-10.1); Chloride 98 mmol/L (98-107); Estimated GFR 27.82 (mL/min/1.73m2); Glucose 303 mg/dL (74-106); Magnesium 2.4 mg/dL (1.8-2.4); Potassium 4.8 mmol/L (3.5-5.1); Sodium 136 mmol/L (136-145); Total Protein 8.2 g/dL (6.4-8.2); Troponin I < 50 ng/L (<or=60)
[2022-04-26 15:30] LABS: Bacteria Few HPF (Negative); Casts 10-20 Hyaline LPF (Negative); Crystals Negative HPF (Negative); Epithelial Cells Negative HPF (Negative); Mucus Heavy (Negative); RBC Negative HPF (0-2); WBC 0-2 HPF (0-5)
--- NOTE | 2022-04-26 15:30 | DI.CT_ITS ---
Exam(s) CT ABDOMEN PELVIS WO EXAM: CT ABDOMEN PELVIS WO CLINICAL HISTORY: diffuse abd pain, vomiting, diarrhea. TECHNIQUE: Imaging Protocol: Axial computed tomography images with coronal and sagittal reformatted images were created and reviewed. Oral: Yes COMPARISON: CT CT CHEST/ABD/PEL WO from 12/04/2020 CR XR PORTABLE CHEST AP POST LINE from 05/05/2021 CT,NM,TMT NM MPI REST STRESS GRP from 08/31/[address] ABDOMEN PELVIS W from 12/02/2021 FINDINGS: ABDOMEN: Lung Bases: Chronic fibrotic changes and bilateral ground-glass opacities. Traction bronchiectasis r ight middle lobe and lingula.. Lungs similar to prior exam. Moderate size hiatal hernia. Liver: Normal density. No measurable mass. Gallbladder and biliary tract: No radiodense calculus or dilation. Pancreas: Atrophic., No abnormal calcifications or inflammatory process. Spleen: Normal. Kidneys: Normal size, contour and axis. No radiodense stones or obstructive uropathy. No masses seen. Adrenal glands: No masses seen. Lymph nodes: Within normal limits. Abdominal Aorta: Abdominal portion non-dilated. Atherosclerotic changes. PELVIS: Bladder: Symmetric distention, no gross wall thickening. Bowel: No obstruction . : Nearly free of stool except for transverse region. Fecalization of distal small bowel loops could indicate decreased motility. Peritoneal cavity: No ascites, collection or mesenteric inflammatory response. Reproductive organs: Uterus within normal limits. Ovaries not visible. Stable small area fat superio r to the uterus, of doubtful clinical significance. Bones: Degenerative changes. Mild L1 compression fracture, stable. IMPRESSION: No acute abnormality in the abdomen or pelvis.. Pulmonary fibrotic changes and question of superimpo sed infiltrates although this is similar to the previous exam. Clinical correlation is recommended. RADIATION DOSE DELIVERED: 1,350.18mGy.cm Total DLP DATA REPOSITORY: All CT scans at this facility are submitted to the National Radiology Data Registry (NRDR) Dose Index Registry (DIR) with the [employer] (ACR). RADIATION OPTIMIZATION: All CT scans at this facility use at least one of these dose optimization te chniques: automated exposure control; mA and/or kV adjustment per patient size (includes targeted exa ms where dose is matched to clinical indication); or iterative reconstruction.
[2022-04-26 15:31] LABS: C & S Indicated? No
[2022-04-26] MEDS: Normal Saline 500 ML IV (15:57)
[2022-04-26 16:04] VITALS: BP 116/81; PULSE 70; RESP 16; TEMP 36.3; O2SAT 98
--- NOTE | 2022-04-26 16:09 | NUR.NOTE ---
Nursing Note: pt to ct for ct angio.
[2022-04-26] MEDS: ACETAMINOPHEN 1,000 MG/100 ML BTL 400 MG IVPB (16:17)
--- NOTE | 2022-04-26 17:40 | DI.VRAD_ITS ---
PROCEDURE INFORMATION: Exam: CT Abdomen And Pelvis Without Contrast Exam date and time: 04/26/2022 5:00 PM Age: 71 years old Clinical indication: Other: Diffuse abd pain, vomiting, diarrhea, R/O colitis, sbo, UTI, pyelo TECHNIQUE: Imaging protocol: Computed tomography of the abdomen and pelvis without contrast. Radiation optimization: All CT scans at this facility use at least one of these dose optimization techniques: automated exposure control; mA and/or kV adjustment per patient size (includes targeted exams where dose is matched to clinical indication); or iterative reconstruction. Other contrast: Oral, omnipapaque 350, 900; COMPARISON: CT ABDOMEN PELVIS W 12/02/2021 11:26 PM FINDINGS: Limitations: Evaluation of the solid organs and vasculature is limited in the absence of IV contrast. Lungs: Ground-glass and consolidative opacities throughout the lung bases. Traction bronchiectasis within the right middle lobe and lingula. Subpleural reticulations. Diaphragm: Moderate-sized hiatal hernia with contrast visualized within the distal esophagus suggesting reflux. Liver: Normal. No mass. Gallbladder and bile ducts: Normal. No calcified stones. No ductal dilation. Pancreas: Severe fatty atrophy of the pancreas. Spleen: Normal. No splenomegaly. Adrenal glands: Normal. No mass. Kidneys and ureters: Mild bilateral perinephric fat stranding, similar to prior exams, favored chronic. No hydronephrosis or stones. No perinephric fluid collection. Stomach and bowel: Mild wall thickening of the distal colon and rectum without significant pericolonic/rectal fat stranding. Mild colonic diverticulosis. No obstruction. Appendix: No evidence of appendicitis. Intraperitoneal space: Unremarkable. No free air. No significant fluid collection. Vasculature: Moderate atherosclerotic calcification of the aorta and its branches. Lymph nodes: Unremarkable. No enlarged lymph nodes. Urinary bladder: Mild bladder wall thickening and perivesicular fat stranding. Reproductive: 1.5 cm fat containing lesion adjacent to the right superolateral aspect of the uterus (series 3, image [id number]). Bones/joints: Stable mild compression fracture deformity of L1. Mild multilevel degenerative changes of the spine. Soft tissues: Fat stranding within the subcutaneous fat of the anterior abdominal wall, favored injection related. IMPRESSION: 1. Mild bladder wall thickening and perivesicular fat stranding which could reflect cystitis. 2. Mild wall thickening of the distal colon and rectum without significant pericolonic/rectal fat stranding. Findings are favored secondary to bowel decompression and less likely colitis/proctitis. 3. 1.5 cm fat containing lesion adjacent to the uterus, possibly an ovarian dermoid. Recommend nonemergent follow-up pelvic ultrasound. 4. Ground-glass and consolidative opacities throughout the lung bases with traction bronchiectasis and subpleural reticulations. Findings are similar in appearance to prior CT from 12/02/2021 suggestive of chronic interstitial lung disease. Recommend nonemergent high-resolution CT of the thorax for further characterization. Dictated and Authenticated by: Braydon Callejas MD. Ordering:GEMMA Marcial MD
[2022-04-26 17:51] VITALS: BP 137/67; PULSE 65; RESP 16; TEMP 36; O2SAT 99
[2022-04-26] MEDS: Ciprofloxacin 500 MG TAB PO (18:46)
[2022-04-26 18:57] VITALS: BP 137/67; PULSE 65; RESP 16; TEMP 36; O2SAT 99
[2022-04-26 20:28] LABS: C Diff PCR Negative (Negative)
[2022-04-27 23:21] LABS: Campylobacter PCR Negative (Negative); Salmonella PCR Negative (Negative); Shiga Toxin PCR Negative (Negative); Shigella/Enteroinvasive Ecoli Negative (Negative)
== END 2022-04-26 19:14 | disposition home or self-care (01) ==
PROVIDERS: Emergency Provider Physician Assistant; PCP Nurse Practitioner Family
DX: K52.9 Noninfective gastroenteritis and colitis, unspecified (principal); J44.9 Chronic obstructive pulmonary disease, unspecified; I10 Essential (primary) hypertension; E11.10 Type 2 diabetes mellitus with ketoacidosis without coma; Z79.4 Long term (current) use of insulin; Z90.49 Acquired absence of other specified parts of digestive tract; Z98.51 Tubal ligation status
CPT/HCPCS: 80053; 83690; 87493; 87505; 96361; 96374; 96375; 99284; 74176; 81003; 81015; 83735; 84484; 85025; J0131

== ENCOUNTER 2022-04-26 20:16 | Emergency (ER) | payer MEDICARE, MEDICAID, SELFPAY ==
[2022-04-26 21:22] VITALS: BP 106/50; PULSE 84; RESP 18; TEMP 36.7; O2SAT 99
[2022-04-26 21:28] VITALS: RESP 18
[2022-04-26 22:17] VITALS: BP 124/53; PULSE 84; RESP 2; TEMP 36.8
--- NOTE | 2022-04-26 22:28 | ED.GENADUL_ITS ---
Discharge Plan Disposition Patient Disposition: HOME Condition: Improving Discharge Details Clinical Impression: Acute dehydration Primary Care Provider: Dharmesh Nolasco ED Provider: Trevin Dykes Home Meds and New Rx's Prescriptions: Continued (DME) Wheeled walker with seat and basket Qty: 1 0RF Dose Instruction: As directed Rx Instructions: As directed, for ambulation with need to store portable oxygen and medications (DME) FreeStyle Kaye 2 [place] Misc See Rx Instructions .ROUTE .MEDSUPPLY Qty: 1 0RF Rx Instructions: As directed (DME) FreeStyle Kaye 2 Sensor Kit See Rx Instructions .ROUTE .MEDSUPPLY Qty: 1 11RF Rx Instructions: As directed ondansetron HCl [Zofran] 4 mg tablet 4 mg PO Q6H pantoprazole 40 mg tablet,delayed release (DR/EC) 40 mg PO BID Qty: 90 6RF (DME) Oxygen Tank See Rx Instructions .ROUTE .MEDSUPPLY Qty: 1 Label Comments: 2l with exertion Rx Instructions: As directed, 1L oxygen at HS. oxycodone 10 mg tablet 10 mg PO Q4H MDD 4 tabs PRN (Reason: pain) Qty: 100 0RF guaifenesin 200 mg tablet 200 mg PO QID PRN (Reason: cough) Qty: 60 0RF lidocaine [Lidoderm] 5 % adhesive patch,medicated 1 patch topical DAILY Qty: 30 3RF Rx Instructions: leave on most painful area for up to 12 hrs ergocalciferol (vitamin D2) [Vitamin D2] 1,250 mcg (50,000 unit) capsule 1,250 mcg PO Q2W Qty: 4 3RF escitalopram oxalate 20 mg tablet 20 mg PO DAILY Qty: 90 4RF albuterol sulfate [Ventolin HFA] 90 mcg/actuation HFA aerosol inhaler 2 puff Inhalation Q4H PRN Qty: 1 12RF Rx Instructions: 18GM Ofev 150 mg capsule 150 mg PO Q12H Qty: 60 12RF albuterol sulfate 2.5 mg /3 mL (0.083 %) solution for nebulization 2.5 mg inhalation Q4H PRN (Reason: shortness of breath or wheezing) Qty: 90 8RF benzonatate 100 mg capsule 100 mg PO TID PRN (Reason: cough) Qty: 30 1RF multivitamin [Daily Multi-Vitamin] Tablet 1 tab PO DAILY loperamide [Anti-Diarrheal (loperamide)] 2 mg tablet 2 mg PO Q6H PRN (Reason: loose stool) Qty: 60 2RF (DME) pen needle, diabetic [BD Ultra-Fine Short Pen Needle] 31 gauge x 5/16 needle See Rx Instructions .ROUTE .MEDSUPPLY Qty: 1200 4RF Rx Instructions: 7 times per day celecoxib 100 mg capsule 100 mg PO DAILY Qty: 60 3RF (DME) Oxygen Tank See Dose Instructions .ROUTE .MEDSUPPLY Qty: 1 Label Comments: Dr. Clarita Santiago Rx Instructions: As directed (DME) Face mask to deliver Oxygen Qty: 2 6RF Dose Instruction: As directed Rx Instructions: As directed (DME) pen needle, diabetic [Pen Needle] 31 gauge x 5/16 needle 1 ea Miscellaneous QID Qty: 4 12RF Rx Instructions: Dx: E11.65 400 needles/month for use with tresiba and humalog (DME) Blood Glucose Test Strip 1 ea Miscellaneous TID Qty: 400 12RF Rx Instructions: PT USES INSULIN. TESTS QID AND PRN. (DME) lancets 28 gauge misc 1 ea Miscellaneous TID Qty: 400 12RF Rx Instructions: PT USES INSULIN. Test QID, to keep HbA1c less than 6.5% epinephrine [EpiPen 2-Gordon] 0.3 mg/0.3 mL auto-injector 0.3 mg IM ONCE PRN (Reason: anaphylaxis) Qty: 1 3RF insulin lispro [Humalog KwikPen Insulin] 100 unit/mL insulin pen 4 - 24 unit SUBCUT AC Qty: 15 4RF atorvastatin 80 mg tablet 80 mg PO QPM Qty: 90 3RF furosemide 40 mg tablet 40 mg PO DAILY Qty: 90 3RF cyclobenzaprine 5 mg tablet 5 mg PO DAILY PRN (Reason: muscle spasm) Qty: 90 6RF cholecalciferol (vitamin D3) 1,250 mcg (50,000 unit) capsule 1,250 mcg PO .COMPLEX Qty: 24 3RF Rx Instructions: 1,250 mcg PO twice weekly; metoprolol tartrate 25 mg tablet 12.5 mg PO BID Qty: 45 3RF spironolactone 25 mg tablet 25 mg PO DAILY Qty: 30 11RF Digestive Enzyme (acidoph,pec) 50 million cell-100 mg tablet 1 tab PO BID Qty: 90 3RF magnesium oxide 400 mg (241.3 mg magnesium) tablet 400 mg PO HS Qty: 30 0RF midodrine 10 mg tablet 10 mg PO TID Qty: 180 4RF insulin glargine [Lantus Solostar U-100 Insulin] 100 unit/mL (3 mL) insulin pen 18 unit SUBCUT .NIGHTLY acetaminophen [Tylenol] 325 mg Tablet 650 mg PO Q4H PRN PRNQty: 0 0RF ciprofloxacin HCl 500 mg tablet 500 mg PO BID 7 Days Qty: 14 0RF promethazine 25 mg tablet 25 mg PO TID PRN (Reason: nausea and vomiting) Qty: 7 0RF Held polyethylene glycol 3350 [Miralax] 17 gram/dose powder 17 g PO DAILY Hold Instructions: Resume on 04/30/22. hold for 3 days Discharge Instructions Instructions: Dehydration (ED) Additional Instructions: Hold your MiraLAX for 3 days as this can cause persistent diarrhea and loose stools. Resume your routine medications. Observe a bland diet. Medical Decision Making 71-year-old female returns after visit earlier in the day in which she underwent blood work and CT imaging. She has had 4+ weeks of loose watery stools and some emesis. She was seen earlier in the day, went home had recurrent emesis and shat myself, for which she now seeks reevaluation. Patient arrives awake alert and interactive, her vital signs are stable HPI General Mode of arrival: ambulatory . Date/Time Provider Initiated Documentation: 04/26/22 21:33 . Limitations to Documentation: no limitations . Information obtained by: patient . History of Present Illness 71 year old F presents to the emergency department with the chief complaint of Nausea, vomiting and diarrhea, recurrent, described as moderate, and is localized to the abdomen. Patient reports no radiation. Patient started experiencing this hour(s) and it has been intermittent. No relieving factors improve symptom(s), No exacerbating factors reported . Patient notes denies fever/chills and weakness. Patient did receive the following treatments prior to arrival, none Related Data Home Medications Medication Instructions Recorded Confirmed Oxygen #1 ea 11/29/18 04/26/22 Wheeled walker with seat and basket #1 ea 02/07/19 04/26/22 Face mask to deliver Oxygen #2 ea 04/23/19 04/26/22 pen needle, diabetic 31 gauge x ##4 08/03/20 04/26/2203/07 (Pen Needle) flash glucose scanning reader #1 ea 02/23/21 04/26/22 (FreeStyle Kaye 2 [place]) flash glucose sensor (FreeStyle #1 ea 02/23/21 04/26/22 Kaye 2 Sensor kit) blood sugar diagnostic (Blood #400 strips 03/10/21 04/26/22 Glucose Test strips) lancets 28 gauge #400 ea 03/10/21 04/26/22 acetaminophen 325 mg tablet 650 mg PO Q4H PRN PRN #0 tabs 03/24/21 04/26/22 (Tylenol) pantoprazole 40 mg tablet,delayed 40 mg PO BID #90 tabs 05/14/21 04/26/22 release escitalopram oxalate 20 mg tablet 20 mg PO DAILY #90 tabs 05/20/21 04/26/22 ondansetron HCl 4 mg tablet 4 mg PO Q6H 05/25/21 04/26/22 (Zofran) epinephrine 0.3 mg/0.3 mL 0.3 mg (0.3 mL) IM ONCE PRN 05/27/21 04/26/22 injection, auto-injector (EpiPen anaphylaxis #1 ea 2-Gordon) insulin lispro 100 unit/mL 4 - 24 unit (0.04 - 0.24 mL) 06/30/21 04/26/22 subcutaneous pen (Humalog KwikPen subcut AC #15 mL (U-100) Insulin) Oxygen #1 ea 08/16/21 04/26/22 albuterol sulfate 2.5 mg/3 mL 2.5 mg (3 mL) inhalation Q4H PRN 08/16/21 04/26/22 (0.083 %) solution for nebulization shortness of breath or wheezing #90 mL albuterol sulfate 90 mcg/actuation 2 puff inhalation Q4H PRN ##1 08/16/21 04/26/22 aerosol inhaler (Ventolin HFA) nintedanib 150 mg capsule (Ofev) 150 mg PO Q12H #60 caps 08/16/21 04/26/22 atorvastatin 80 mg tablet 80 mg PO QPM #90 tabs 08/23/21 04/26/22 benzonatate 100 mg capsule 100 mg PO TID PRN cough #30 caps 09/27/21 04/26/22 furosemide 40 mg tablet 40 mg PO DAILY #90 tabs 10/27/21 04/26/22 loperamide 2 mg tablet 2 mg PO Q6H PRN loose stool #60 11/01/21 04/26/22 (Anti-Diarrheal (loperamide)) tabs multivitamin (Daily Multi-Vitamin 1 tab PO DAILY 11/01/21 04/26/22 tablet) pen needle, diabetic 31 gauge x #1,200 ea 11/01/21 04/26/2203/07 (BD Ultra-Fine Short Pen Needle) polyethylene glycol 3350 17 17 g PO DAILY 11/01/21 04/26/22 gram/dose oral powder (Miralax) cyclobenzaprine 5 mg tablet 5 mg PO DAILY PRN muscle spasm #90 11/22/21 04/26/22 tabs insulin glargine 100 unit/mL (3 18 unit subcut .NIGHTLY 12/02/21 04/26/22 mL) subcutaneous pen (Lantus Solostar U-100 Insulin) cholecalciferol (vitamin D3) 1,250 1,250 mcg PO .COMPLEX #24 caps 01/17/22 04/26/22 mcg (50,000 unit) capsule ergocalciferol (vitamin D2) 1,250 1,250 mcg PO Q2W #4 caps 01/21/22 04/26/22 mcg (50,000 unit) capsule (Vitamin D2) lidocaine 5 % topical patch 1 patch topical DAILY #30 ea 01/21/22 04/26/22 (Lidoderm) metoprolol tartrate 25 mg tablet 12.5 mg PO BID #45 tabs 01/24/22 04/26/22 celecoxib 100 mg capsule 100 mg PO DAILY #60 caps 02/23/22 04/26/22 guaifenesin 200 mg tablet 200 mg PO QID PRN cough #60 tabs 03/04/22 04/26/22 oxycodone 10 mg tablet 10 mg PO Q4H PRN pain #100 tabs 03/04/22 04/26/22 spironolactone 25 mg tablet 25 mg PO DAILY #30 tabs 03/11/22 04/26/22 digestive no.8-L.acidophilus 50 1 tab PO BID #90 tabs 03/24/22 04/26/22 million cell-pectin 100 mg tablet (Digestive Enzyme (acidophilus, pectin, bromelain)) magnesium oxide 400 mg (241.3 mg 400 mg PO HS #30 tabs 03/24/22 04/26/22 magnesium) tablet midodrine 10 mg tablet 10 mg PO TID #180 tabs 03/24/22 04/26/22 ciprofloxacin HCl 500 mg tablet 500 mg PO BID 7 days #14 tabs 04/26/22 04/26/22 promethazine 25 mg tablet 25 mg PO TID PRN nausea and 04/26/22 04/26/22 vomiting #7 tabs Previous Rx's Medication Instructions Recorded Wheeled walker with seat and basket #1 ea 02/07/19 Face mask to deliver Oxygen #2 ea 04/23/19 pen needle, diabetic 31 gauge x ##4 08/03/2003/07 (Pen Needle) flash glucose scanning reader #1 ea 02/23/21 (FreeStyle Kaye 2 [place]) flash glucose sensor (FreeStyle #1 ea 02/23/21 Kaye 2 Sensor kit) blood sugar diagnostic (Blood #400 strips 03/10/21 Glucose Test strips) lancets 28 gauge #400 ea 03/10/21 acetaminophen 325 mg tablet 650 mg PO Q4H PRN PRN #0 tabs 03/24/21 (Tylenol) pantoprazole 40 mg tablet,delayed 40 mg PO BID #90 tabs 05/14/21 release escitalopram oxalate 20 mg tablet 20 mg PO DAILY #90 tabs 05/20/21 epinephrine 0.3 mg/0.3 mL 0.3 mg (0.3 mL) IM ONCE PRN 05/27/21 injection, auto-injector (EpiPen anaphylaxis #1 ea 2-Gordon) insulin lispro 100 unit/mL 4 - 24 unit (0.04 - 0.24 mL) 06/30/21 subcutaneous pen (Humalog KwikPen subcut AC #15 mL (U-100) Insulin) albuterol sulfate 2.5 mg/3 mL 2.5 mg (3 mL) inhalation Q4H PRN 08/16/21 (0.083 %) solution for nebulization shortness of breath or wheezing #90 mL albuterol sulfate 90 mcg/actuation 2 puff inhalation Q4H PRN ##1 08/16/21 aerosol inhaler (Ventolin HFA) nintedanib 150 mg capsule (Ofev) 150 mg PO Q12H #60 caps 08/16/21 atorvastatin 80 mg tablet 80 mg PO QPM #90 tabs 08/23/21 benzonatate 100 mg capsule 100 mg PO TID PRN cough #30 caps 09/27/21 furosemide 40 mg tablet 40 mg PO DAILY #90 tabs 10/27/21 loperamide 2 mg tablet 2 mg PO Q6H PRN loose stool #60 11/01/21 (Anti-Diarrheal (loperamide)) tabs pen needle, diabetic 31 gauge x #1,200 ea 11/01/2103/07 (BD Ultra-Fine Short Pen Needle) cyclobenzaprine 5 mg tablet 5 mg PO DAILY PRN muscle spasm #90 11/22/21 tabs cholecalciferol (vitamin D3) 1,250 1,250 mcg PO .COMPLEX #24 caps 01/17/22 mcg (50,000 unit) capsule ergocalciferol (vitamin D2) 1,250 1,250 mcg PO Q2W #4 caps 01/21/22 mcg (50,000 unit) capsule (Vitamin D2) lidocaine 5 % topical patch 1 patch topical DAILY #30 ea 01/21/22 (Lidoderm) metoprolol tartrate 25 mg tablet 12.5 mg PO BID #45 tabs 01/24/22 celecoxib 100 mg capsule 100 mg PO DAILY #60 caps 02/23/22 guaifenesin 200 mg tablet 200 mg PO QID PRN cough #60 tabs 03/04/22 oxycodone 10 mg tablet 10 mg PO Q4H PRN pain #100 tabs 03/04/22 spironolactone 25 mg tablet 25 mg PO DAILY #30 tabs 03/11/22 digestive no.8-L.acidophilus 50 1 tab PO BID #90 tabs 03/24/22 million cell-pectin 100 mg tablet (Digestive Enzyme (acidophilus, pectin, bromelain)) magnesium oxide 400 mg (241.3 mg 400 mg PO HS #30 tabs 03/24/22 magnesium) tablet midodrine 10 mg tablet 10 mg PO TID #180 tabs 03/24/22 ciprofloxacin HCl 500 mg tablet 500 mg PO BID 7 days #14 tabs 04/26/22 promethazine 25 mg tablet 25 mg PO TID PRN nausea and 04/26/22 vomiting #7 tabs Allergies Allergy/AdvReac Type Severity Reaction Status Date / Time aspirin Allergy Unknown HIVES, Verified 04/26/22 21:30 flip out diclofenac Allergy Unknown RASH Verified 04/26/22 21:30 latex Allergy Unknown SKIN Verified 04/26/22 21:30 BREAKDOWN NSAIDS (Non-Steroidal Allergy Unknown HIVES, Verified 04/26/22 21:30 Anti-Inflamma VOMITING morphine AdvReac Unknown VOMITING Verified 04/26/22 21:30 General Stated Complaint: GenMedical ALVIN: 3 Review of Systems Narrative: No fever. Had CT and labs earlier in the day. 6 systems reviewed and otherwise negative PFSH All Active Problems (Updated 04/27/22 @ 00:10 by Trevin Dykes MD) Chronic vomiting (Acute) Chronic diarrhea (Acute) Acute dehydration (Acute) Regurgitation of food (Acute) Renal insufficiency (Chronic) Symptomatic anemia (Acute) New onset a-fib (Acute) Anemia (Chronic) Immunoglobulin deficiency (Acute) Chronic pulmonary aspiration (Acute) Grief (Chronic) brother Nov 2020 Low-level of literacy (Chronic) Palliative care patient (Acute) Orthostatic hypotension (Acute) Acute congestive heart failure (Acute) NSTEMI (non-ST elevated myocardial infarction) (Acute) Shortness of breath (Acute) Syncope (Chronic) IDDM (insulin dependent diabetes mellitus) (Chronic) Hiatal hernia (Chronic) Pulmonary fibrosis (Chronic) Renal insufficiency (Chronic) Functional encopresis (Chronic) Palliative care patient (Chronic) Pulmonary hypertension (Chronic) Chronic respiratory failure with hypoxia (Chronic) Advance directive on file (Acute) Long-term use of high-risk medication (Chronic 03/16/18) Interstitial lung disease (Acute 03/16/18) Pulm: [place] Gastroesophageal reflux disease without esophagitis (Chronic 03/16/18) Dyspnea (Chronic 03/16/18) Cognitive impairment (Chronic 03/16/18) Mild, w/Memory Loss Umbilical hernia (Chronic) Type II diabetes mellitus, uncontrolled (Chronic) Total urinary incontinence (Chronic) Medical History Abdominal pain Acute gastroenteritis (03/16/18) Acute kidney injury (nontraumatic) Acute pneumonitis SYD (acute kidney injury) Anosognosia Anxiety (03/16/18) Asthma Back pain Chest wall pain COPD (chronic obstructive pulmonary disease) Cough Cubital tunnel syndrome (03/16/18) Dehydration Depressive disorder Discharge planning issues DKA (diabetic ketoacidosis) DVT prophylaxis Edema (03/16/18) Encounter to establish care Essential hypertension (07/17/13) Fracture of humerus, proximal, left, closed (05/02/21) History of shingles (03/16/18) Hyperlipemia Inflammatory disorder of digestive tract Insulin dependent diabetes mellitus Internal derangement of right knee Medication monitoring encounter Metabolic acidosis with normal anion gap and bicarbonate losses Migraine (04/03/14) Nausea & vomiting Neck pain (03/16/18) 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 History of section Ligation of fallopian tube Thoracoscopic (R)Lung Bx (02/12/18) Family History Mother , aged 81 from dementia, per Elly Diabetes Essential hypertension CHF (congestive heart failure) Heart disease CHF/heart failure Dementia Father , aged 80 Diabetes Essential hypertension CAD (coronary artery disease) Heart disease [place] Hyperlipidemia Stroke Sister , aged 54 Diabetes Personal history of malignant neoplasm Lung Asthma Lung cancer Brother , of mesithelioma aged 62 Diabetes Essential hypertension Personal history of malignant neoplasm Lung, Prostate Hyperlipidemia Asthma Mesothelioma Brother , of PE following knee surgery age 69 Pulmonary embolus with infarction Daughter No problems noted. Son No problems noted. Social History Smoking/Tobacco Use Status: Never Smoking risk assessment performed?: Yes Alcohol Intake: current Alcohol Intake frequency: holidays/special occasions only Details: monthly or less Drug use: Never Substance use type: does not use Adopted: No Caregiver/Support person: No Foster care: No Household members: none Housing: apartment Number of Children: 2 number of grandchildren: 5 Communication Needs: Hard of Hearing and Corrective Lenses Education Level: middle school Do you need help understanding health information?: Always current occupation: retired [employer] Pets and animals: Yes Pets and animals: cat(s) Sexually active: No Do you think of yourself as: straight/heterosexual Current gender identity: female What is your relationship status?: How often do you talk on the phone with friends or family?: three or more times per week How often do you get together with friends or relatives?: three or more times per week How often do you attend orthodoxy or christianity services?: 1-3 times per year Do you belong to any clubs or organized social groups?: no Panel score (0-1 are the most socially isolated patients): 1 What type of physical activity do you participate in: none and sedentary lifestyle Duration: < 15 minutes/day Frequency: does not exercise Bibi/Gnosticism: Sikh Special bibi needs: No Agree to transfusion: Yes Seatbelt use: sometimes Helmet use: No Drive intox or ride w/intox truck driver: No Water heater temp set <120 deg: Yes Working smoke detector in home: Yes Fire extinguisher in home: Yes Carbon monox detector in home: Yes Do you feel safe at home: Yes Do you feel safe in your relationship?: Yes Victim of physical abuse: No Victim of emotional abuse: No Victim of sexual abuse: No Would you like helpful sources: No Additional Social history: Recently in the [facility] x 2 mos. Didn't feel she needed to be there. She reports was supposed to be a 2 week stay. She said she did all her own care. She says the staff is stretched thin. She can take care of herself at home just fine. She says her family is more worried about her than they need to be. Exam Narrative Exam Narrative: GEN: awake, alert, oriented 3. Pleasant, well groomed, interactive. HEAD: Normocephalic, atraumatic ENT: Mucous membranes dry, oropharynx unremarkable, External ear exam unremarkable EYES: PERRL, EOMI NECK: Full ROM, no MARIBEL, no menigismus CHEST/RESP: Nontender, clear to auscultation bilateral, no wheeze/rhonchi/rales CARDIOVASCULAR: RRR, no murmur, rub charisse. 2+ Rad pulse bilateral ABDOMEN: Soft, nontender, no mass. +Bowel sounds EXT: Full ROM, no edema, no rash Neuro: Grossly normal neurologic exam, conversant, interactive. Psych: Speech fluent, thoughts congruent, affect normal Course Vital Signs Vital signs: Vital Signs Temperature 36.7 C 04/26/22 21:22 Pulse 84 04/26/22 21:22 Respiratory Rate 18 04/26/22 21:22 Blood Pressure 106/50 L 04/26/22 21:22 Pulse Oximetry 99 04/26/22 21:22 Temperature 36.8 C 04/26/22 22:17 Temperature Source Skin 04/26/22 22:17 Pulse 84 04/26/22 22:17 Respiratory Rate 2 L 04/26/22 22:17 Respiratory Effort Non-Labored 04/26/22 21:28 Respiratory Depth Normal 04/26/22 21:28 Respiratory Pattern Normal 04/26/22 21:28 Blood Pressure 124/53 L 04/26/22 22:17 Blood Pressure Mean 76 04/26/22 22:17 Blood Pressure Position Sitting 04/26/22 21:22 Pulse Oximetry 99 04/26/22 21:22 Oxygen Delivery Method Room Air 04/26/22 21:22 Oxygen Flow Rate 0 04/26/22 21:22 Pain Level 9 04/26/22 21:22
[2022-04-26 22:52] LABS: HCT 38.8 % (36.0-46.0); HGB 12.4 g/dL (11.2-15.7); MCH 32.5 pg (27.0-33.0); MCV 102 fL (80-95); MPV 9.8 fL (8.0-11.0); Platelet Count 317 10^3/uL (130-400); RBC 3.82 10^6/uL (3.93-5.22); RDW 13.7 % (11.7-14.6); WBC 13.95 10^3/uL (4.4-10.8)
[2022-04-27 00:03] LABS: Anion Gap 9.3 mmol/L (3-11); BUN 28 mg/dL (7-18); CO2 28.7 mmol/L (21.0-32.0); CREATININE 1.5 mg/dL (0.55-1.02); Calcium 8.7 mg/dL (8.5-10.1); Chloride 99 mmol/L (98-107); Estimated GFR 34.33 (mL/min/1.73m2); Glucose 115 mg/dL (74-106); Potassium 4.3 mmol/L (3.5-5.1); Sodium 137 mmol/L (136-145)
[2022-04-27 00:53] VITALS: BP 106/50; PULSE 84; RESP 2; TEMP 36.8; O2SAT 99
== END 2022-04-27 00:46 | disposition home or self-care (01) ==
PROVIDERS: Emergency Provider Emergency Medicine; PCP Nurse Practitioner Family
DX: E86.0 Dehydration (principal); I10 Essential (primary) hypertension; J44.9 Chronic obstructive pulmonary disease, unspecified; E11.10 Type 2 diabetes mellitus with ketoacidosis without coma; Z79.4 Long term (current) use of insulin
CPT/HCPCS: 36415; 80048; 85027; 96360; 99284

== ENCOUNTER 2022-05-06 16:45 | Inpatient (IN) | payer MEDICARE, MEDICAID, SELFPAY ==
[2022-05-06] VITALS (11 sets, daily range): BP systolic 101–152; BP diastolic 40–81; PULSE 67–95; RESP 13–18; TEMP 36.3; O2SAT 93–100
--- NOTE | 2022-05-06 17:15 | RT.EKG_ITS ---
APPROVED REPORT Exam: Resting ECG Reason for Exam: weakness Patient Location: E HR:78 bpm ECG Measurements Heart Rate 78 AXIS NE 171 P 3 QRSd 96 QRS -20 QT 402 T 94 QTc 458 Conclusion Sinus rhythm...normal P axis, V-rate 60- 99 LVH with secondary repolarization abnormality...multi-LVH criteria, abnrm ST-T
[2022-05-06] MEDS: Metoclopramide 10 MG/2 ML VIAL IVP (17:51)
[2022-05-06 17:54] LABS: BE (Venous) 3 mmol/L (-2-3); HCO3 (Venous) 29 mmol/L (23-28); O2 Sat (Venous) 41 %; TCO2 (Venous) 26 mmol/L (24-29); pCO2 (Venous) 55 mmHg (41-51); pH (Venous) 7.33 (7.31-7.41); pO2 (Venous) 24 mmHg
[2022-05-06 17:56] LABS: Abs Immature Grans 0.04 10^3/uL (0.0-0.06); Absolute Basophil Count 0.07 10^3/uL (0.0-0.2); Absolute Eosinophil Count 0.63 10^3/uL (0.0-0.7); Absolute Monocyte Count 0.67 10^3/uL (0.1-0.8); Absolute Neutrophil Count 9.66 10^3/uL (1.2-6.7); Basophils % 0.5; Eosinophils % 4.6; HCT 45.3 % (36.0-46.0); HGB 14.9 g/dL (11.2-15.7); Immature Grans % 0.3; MCH 32.6 pg (27.0-33.0); MCHC 32.9 % (32.0-36.0); MCV 99 fL (80-95); MPV 9.7 fL (8.0-11.0); Monocytes % 4.9; Neutrophils % 70.7; Platelet Count 436 10^3/uL (130-400); RBC 4.57 10^6/uL (3.93-5.22); RDW 13.9 % (11.7-14.6); RDW-SD 51.2 fL; WBC 13.66 10^3/uL (4.4-10.8)
[2022-05-06 17:57] LABS: Lactate 2.3 mmol/L (0.6-1.4)
--- NOTE | 2022-05-06 18:00 | DI.CT_ITS ---
Exam(s) CT ABDOMEN PELVIS WO EXAM: CT ABDOMEN PELVIS WO CLINICAL HISTORY: abdominal pain, vomiting, diarrhea. TECHNIQUE: Imaging Protocol: Axial computed tomography images with coronal and sagittal reformatted images were created and reviewed CONTRAST MATERIAL: Intravenous: none Oral: None COMPARISON: CT CT CHEST PE CTA from 12/02/[address] ABDOMEN PELVIS W from 12/02/[address] ABDOMEN PELVIS WO from 04/26/2022 FINDINGS: VISUALIZED LUNG BASES: Severe fibrotic lung disease again noted.. No pleural effusions. ABDOMEN: There is no ascites. Prominent hiatal hernia. LIVER: There are no obvious focal hepatic lesions evident of this noninfused study. GALLBLADDER/BILIARY: The gallbladder surgically absent. CBD is not dilated. PANCREAS: Pancreas is atrophic. SPLEEN: Spleen is not enlarged. No obvious intrasplenic lesions. ADRENALS: There are no significant adrenal masses. KIDNEYS:No cysts evident. No solid renal masses. No calculi nor hydronephrosis. . ABDOMINAL AORTA: Abdominal aorta is not enlarged. LYMPH NODES: There is no retroperitoneal nor paraaortic adenopathy. ABDOMINAL WALL: No evidence of significant anterior abdominal wall nor inguinal hernia. GI: Abnormal appearance of the colon proximal half as well as the terminal ileum. Fatty infiltration of the wall which is circumferential and this extends from the terminal ileum 2 at least mid transve rse colon level.. Suspect possible sequela of inflammatory bowel disease. PELVIS: LYMPH NODES: There is no intrapelvic nor inguinal adenopathy. GI: No evidence of appendicitis.No evidence of sigmoid diverticulitis. URINARY BLADDER: No calculi nor obvious masses evident REPRODUCTIVE: Appears unremarkable. No abnormal adnexal masses nor free fluid. OSSEOUS: No significant osseous lesions. Compression fracture superior endplate of L1, unchanged.. Unchanged from at least 12/02/2021. IMPRESSION: 1. The appearance of the terminal ileum, ascending-right colon and proximal transverse colon appears fatty infiltration circumferential of the wall. Suspect sequelae of chronic inflammatory disease or possible chronic ischemia. 2. Extensive fibrotic pulmonary changes in the visualized lung bases again noted. 3. Gallbladder surgically absent. Biliary tree not dilated. Atrophic pancreas. RADIATION DOSE DELIVERED: 1,103.14mGy.cm Total DLP DATA REPOSITORY: All CT scans at this facility are submitted to the National Radiology Data Registry (NRDR) Dose Index Registry (DIR) with the [employer] (ACR). RADIATION OPTIMIZATION: All CT scans at this facility use at least one of these dose optimization te chniques: automated exposure control; mA and/or kV adjustment per patient size (includes targeted exa ms where dose is matched to clinical indication); or iterative reconstruction.
--- NOTE | 2022-05-06 18:10 | DI.RAD_ITS ---
Exam(s) XR CHEST 1V IN DI DEPT EXAM: XR CHEST 1V IN DI DEPT CLINICAL HISTORY: vomiting, weak. TECHNIQUE: 2D digital imaging was performed. COMPARISON: Chest x-ray 03/30/2022 FINDINGS: Single AP portable view. Very low lung volumes. Heart size is upper normal. The mediastinum is not widened. Extensive infiltrate in the right lung. Left lower lobe infiltrate. No large pleural effusions. No pneumothorax. IMPRESSION: Bilateral pulmonary findings. Recommend nonportable upright PA and lateral views when clinically pos sible at better inspiratory effort. DATA REPOSITORY: RADIATION DOSE DELIVERED: All CT scans at this facility use at least one of these dose optimization techniques: automated exposure control; mA and/or kV adjustment per patient size (includes targeted e xams where dose is matched to clinical indication); or iterative reconstruction.
[2022-05-06] MEDS: Lactated Ringers 1,000 ML 1000 ML IV (18:11)
[2022-05-06] MEDS: Ondansetron 4 MG/2 ML VIAL IVP (18:14)
[2022-05-06 18:15] LABS: ALT 24 U/L (14-59); AST 31 U/L (15-37); Albumin 4.1 g/dL (3.4-5.0); Alkaline Phosphatase 116 U/L (46-116); BUN 30 mg/dL (7-18); Bilirubin, Total 0.6 mg/dL (0.2-1.0); CREATININE 1.7 mg/dL (0.55-1.02); Calcium 9.8 mg/dL (8.5-10.1); Chloride 99 mmol/L (98-107); Estimated GFR 29.71 (mL/min/1.73m2); Glucose 117 mg/dL (74-106); Magnesium 2.7 mg/dL (1.8-2.4); Potassium 4.9 mmol/L (3.5-5.1); Sodium 139 mmol/L (136-145); Total Protein 8.6 g/dL (6.4-8.2); Troponin I < 50 ng/L (<or=60)
[2022-05-06] MEDS: diphenhydrAMINE 50 MG/ML VIAL 12.5 MG IVP (18:15)
[2022-05-06] MEDS: Breeza Beverage 473 ML BTL PO ×2 (20:42→20:43)
--- NOTE | 2022-05-06 21:03 | DI.VRAD_ITS ---
PROCEDURE INFORMATION: Exam: XR Chest Exam date and time: 05/06/2022 20:36 Age: 71 years old Clinical indication: Other: Vomiting, weak TECHNIQUE: Imaging protocol: Radiologic exam of the chest. Views: 1 view. COMPARISON: CR XR CHEST 2V PA LATERAL 09/21/2021 14:10 FINDINGS: Lungs: Low lung volumes. Moderate right greater than left pulmonary interstitial and airspace opacities greatly increased since prior. Opacity in the left lung base. Difficult to compare given very low lung volumes. Pleural spaces: No large pleural effusion. No pneumothorax. Heart/Mediastinum: No cardiomegaly. Bones/joints: Left glenohumeral arthroplasty now present grossly intact as visualized. No displaced fracture. IMPRESSION: A component of chronic pulmonary disease is suspected. Superimposed pneumonia edema and or atelectasis is possible on this very low volume view. Dictated and Authenticated by: Leila Fernandes MD. Ordering:RHEA Najera MD
--- NOTE | 2022-05-06 21:10 | DI.VRAD_ITS ---
PROCEDURE INFORMATION: Exam: CT Abdomen And Pelvis Without Contrast Exam date and time: 05/06/2022 20:32 Age: 71 years old Clinical indication: Vomiting TECHNIQUE: Imaging protocol: Computed tomography of the abdomen and pelvis without contrast. Other contrast: Oral, Gastroview , 25; COMPARISON: CT ABDOMEN PELVIS WO 04/26/2022 17:00 FINDINGS: Lungs: Chronic appearing peripheral pulmonary fibrotic changes are similar to previous imaging. Diaphragm: Moderate hiatal hernia. Liver: No hepatic masses on noncontrast imaging. Gallbladder and bile ducts: Cholecystectomy. No significant biliary dilation or radiopaque stones in the biliary tree. Pancreas: No gross pathology in the pancreas on noncontrast imaging. Spleen: No splenomegaly or focal lesions. Adrenal glands: No mass. Kidneys and ureters: No nephrolithiasis or collecting system obstruction. Stomach and bowel: Submucosal fat deposition in the colon, likely habitus and or diet related. Enteric contrast in small bowel as expected. No enteritis or small bowel obstruction. No colitis or significant diverticular disease. Appendix: No evidence of appendicitis. Intraperitoneal space: No free air. No significant fluid collection. Vasculature: No abdominal aortic aneurysm. Lymph nodes: No significantly enlarged lymph nodes. Urinary bladder: The urinary bladder is distended. No urinary bladder wall thickening. Reproductive: Unremarkable as visualized. Bones/joints: Chronic mild loss of height at L1 anteriorly. No acute fracture or subluxation. Soft tissues: No suspicious lesions. IMPRESSION: 1. No acute findings on noncontrast imaging. 2. Additional findings as described. Dictated and Authenticated by: Leila Fernandes MD. Ordering:RHEA Najera MD
[2022-05-06 21:43] LABS: Lactate 0.9 mmol/L (0.6-1.4)
[2022-05-06] MEDS: Metoclopramide 10 MG TAB PO (21:45)
--- NOTE | 2022-05-06 22:36 | W.ED.GENAD ---
Discharge Plan Disposition Patient Disposition: HOME Condition: Stable Discharge Details Clinical Impression: Nausea & vomiting, Chronic vomiting, Chronic diarrhea, CKD (chronic kidney disease) Primary Care Provider: Dharmesh Nolasco ED Provider: Dania Santos Discharge Data Discharge Date/Time-TO BE ENTERED AT DEPARTURE: 05/07/22 02:06 Medical Decision Making Patient is clinically dehydrated on blood work I reviewed prior stool studies that did not show evidence of acute infectious etiology This is her third visit to the emergency department and we discussed admission versus transfer home and patient prefers to be discharged home however patient's guardian Jorge Luis called and does not feel patient is safe at home and states that she does not have enough resources to care for self Jorge Luis is reportedly a guardian and therefore patient was reassessed and is comfortable staying in the hospital She is clinically dehydrated She received numerous fluids Of note she was able to tolerate p.o. challenge in the emergency department, however given age and comorbidities, she will be admitted overnight for observation Discussed with Dr. Donaldson, willing to admit patient to his service HPI General Date/Time Provider Initiated Documentation: 05/06/22 17:06. HPI Narrative: This pleasant 71-year-old female with history of chronic kidney disease, renal insufficiency, Alzheimer's dementia, CHF, chronic vomiting, chronic diarrhea presents with recurrence of vomiting and diarrhea. She denies any pain complaints. She denies any fever or chills. She states she has had 3 episodes of diarrhea today and numerous episodes of vomiting despite antiemetics. She denies any falls or injuries. She feels as though she has sufficient resources at home as she does have a neighbor that comes over to help her. She denies any blood in vomitus or stool. She states that she has had this numerous times in the past and denies any significant change. Related Data Home Medications Medication Instructions Recorded Confirmed Oxygen #1 ea 11/29/18 04/26/22 Wheeled walker with seat and basket #1 ea 02/07/19 04/26/22 Face mask to deliver Oxygen #2 ea 04/23/19 04/26/22 pen needle, diabetic 31 gauge x ##4 08/03/20 04/26/2203/07 (Pen Needle) flash glucose scanning reader #1 ea 02/23/21 04/26/22 (FreeStyle Kaye 2 [place]) flash glucose sensor (FreeStyle #1 ea 02/23/21 04/26/22 Kaye 2 Sensor kit) blood sugar diagnostic (Blood #400 strips 03/10/21 04/26/22 Glucose Test strips) lancets 28 gauge #400 ea 03/10/21 04/26/22 acetaminophen 325 mg tablet 650 mg PO Q4H PRN PRN #0 tabs 03/24/21 04/26/22 (Tylenol) pantoprazole 40 mg tablet,delayed 40 mg PO BID #90 tabs 05/14/21 05/06/22 release escitalopram oxalate 20 mg tablet 20 mg PO DAILY #90 tabs 05/20/21 05/06/22 ondansetron HCl 4 mg tablet 4 mg PO Q6H 05/25/21 05/06/22 (Zofran) epinephrine 0.3 mg/0.3 mL 0.3 mg (0.3 mL) IM ONCE PRN 05/27/21 05/06/22 injection, auto-injector (EpiPen anaphylaxis #1 ea 2-Gordon) insulin lispro 100 unit/mL 4 - 24 unit (0.04 - 0.24 mL) 06/30/21 04/26/22 subcutaneous pen (Humalog KwikPen subcut AC #15 mL (U-100) Insulin) Oxygen #1 ea 08/16/21 04/26/22 albuterol sulfate 2.5 mg/3 mL 2.5 mg (3 mL) inhalation Q4H PRN 08/16/21 04/26/22 (0.083 %) solution for nebulization shortness of breath or wheezing #90 mL albuterol sulfate 90 mcg/actuation 2 puff inhalation Q4H PRN ##1 08/16/21 04/26/22 aerosol inhaler (Ventolin HFA) nintedanib 150 mg capsule (Ofev) 150 mg PO Q12H #60 caps 08/16/21 05/06/22 atorvastatin 80 mg tablet 80 mg PO QPM #90 tabs 08/23/21 04/26/22 benzonatate 100 mg capsule 100 mg PO TID PRN cough #30 caps 09/27/21 04/26/22 furosemide 40 mg tablet 40 mg PO DAILY #90 tabs 10/27/21 05/06/22 loperamide 2 mg tablet 2 mg PO Q6H PRN loose stool #60 11/01/21 04/26/22 (Anti-Diarrheal (loperamide)) tabs multivitamin (Daily Multi-Vitamin 1 tab PO DAILY 11/01/21 05/06/22 tablet) pen needle, diabetic 31 gauge x #1,200 ea 11/01/21 04/26/2203/07 (BD Ultra-Fine Short Pen Needle) polyethylene glycol 3350 17 17 g PO DAILY 11/01/21 05/06/22 gram/dose oral powder (Miralax) cyclobenzaprine 5 mg tablet 5 mg PO DAILY PRN muscle spasm #90 11/22/21 05/06/22 tabs insulin glargine 100 unit/mL (3 18 unit subcut .NIGHTLY 12/02/21 05/06/22 mL) subcutaneous pen (Lantus Solostar U-100 Insulin) cholecalciferol (vitamin D3) 1,250 1,250 mcg PO .COMPLEX #24 caps 01/17/22 05/06/22 mcg (50,000 unit) capsule ergocalciferol (vitamin D2) 1,250 1,250 mcg PO Q2W #4 caps 01/21/22 05/06/22 mcg (50,000 unit) capsule (Vitamin D2) lidocaine 5 % topical patch 1 patch topical DAILY #30 ea 01/21/22 04/26/22 (Lidoderm) metoprolol tartrate 25 mg tablet 12.5 mg PO BID #45 tabs 01/24/22 04/26/22 celecoxib 100 mg capsule 100 mg PO DAILY #60 caps 02/23/22 04/26/22 guaifenesin 200 mg tablet 200 mg PO QID PRN cough #60 tabs 03/04/22 05/06/22 oxycodone 10 mg tablet 10 mg PO Q4H PRN pain #100 tabs 03/04/22 05/06/22 spironolactone 25 mg tablet 25 mg PO DAILY #30 tabs 03/11/22 05/06/22 digestive no.8-L.acidophilus 50 1 tab PO BID #90 tabs 03/24/22 05/06/22 million cell-pectin 100 mg tablet (Digestive Enzyme (acidophilus, pectin, bromelain)) magnesium oxide 400 mg (241.3 mg 400 mg PO HS #30 tabs 03/24/22 05/06/22 magnesium) tablet midodrine 10 mg tablet 10 mg PO TID #180 tabs 03/24/22 05/06/22 promethazine 25 mg tablet 25 mg PO TID PRN nausea and 04/26/22 05/06/22 vomiting #7 tabs metoclopramide HCl 5 mg tablet 5 mg PO QID #10 tabs 05/06/22 (Reglan) Previous Rx's Medication Instructions Recorded Wheeled walker with seat and basket #1 ea 02/07/19 Face mask to deliver Oxygen #2 ea 04/23/19 pen needle, diabetic 31 gauge x ##4 08/03/20/ (Pen Needle) flash glucose scanning reader #1 ea 02/23/21 (FreeStyle Kaye 2 [place]) flash glucose sensor (FreeStyle #1 ea 02/23/21 Kaye 2 Sensor kit) blood sugar diagnostic (Blood #400 strips 03/10/21 Glucose Test strips) lancets 28 gauge #400 ea 03/10/21 acetaminophen 325 mg tablet 650 mg PO Q4H PRN PRN #0 tabs 03/24/21 (Tylenol) pantoprazole 40 mg tablet,delayed 40 mg PO BID #90 tabs 05/14/21 release escitalopram oxalate 20 mg tablet 20 mg PO DAILY #90 tabs 05/20/21 epinephrine 0.3 mg/0.3 mL 0.3 mg (0.3 mL) IM ONCE PRN 05/27/21 injection, auto-injector (EpiPen anaphylaxis #1 ea 2-Gordon) insulin lispro 100 unit/mL 4 - 24 unit (0.04 - 0.24 mL) 06/30/21 subcutaneous pen (Humalog KwikPen subcut AC #15 mL (U-100) Insulin) albuterol sulfate 2.5 mg/3 mL 2.5 mg (3 mL) inhalation Q4H PRN 08/16/21 (0.083 %) solution for nebulization shortness of breath or wheezing #90 mL albuterol sulfate 90 mcg/actuation 2 puff inhalation Q4H PRN ##1 08/16/21 aerosol inhaler (Ventolin HFA) nintedanib 150 mg capsule (Ofev) 150 mg PO Q12H #60 caps 08/16/21 atorvastatin 80 mg tablet 80 mg PO QPM #90 tabs 08/23/21 benzonatate 100 mg capsule 100 mg PO TID PRN cough #30 caps 09/27/21 furosemide 40 mg tablet 40 mg PO DAILY #90 tabs 10/27/21 loperamide 2 mg tablet 2 mg PO Q6H PRN loose stool #60 11/01/21 (Anti-Diarrheal (loperamide)) tabs pen needle, diabetic 31 gauge x #1,200 ea 11/01/2103/07 (BD Ultra-Fine Short Pen Needle) cyclobenzaprine 5 mg tablet 5 mg PO DAILY PRN muscle spasm #90 11/22/21 tabs cholecalciferol (vitamin D3) 1,250 1,250 mcg PO .COMPLEX #24 caps 01/17/22 mcg (50,000 unit) capsule ergocalciferol (vitamin D2) 1,250 1,250 mcg PO Q2W #4 caps 01/21/22 mcg (50,000 unit) capsule (Vitamin D2) lidocaine 5 % topical patch 1 patch topical DAILY #30 ea 01/21/22 (Lidoderm) metoprolol tartrate 25 mg tablet 12.5 mg PO BID #45 tabs 01/24/22 celecoxib 100 mg capsule 100 mg PO DAILY #60 caps 02/23/22 guaifenesin 200 mg tablet 200 mg PO QID PRN cough #60 tabs 03/04/22 oxycodone 10 mg tablet 10 mg PO Q4H PRN pain #100 tabs 03/04/22 spironolactone 25 mg tablet 25 mg PO DAILY #30 tabs 03/11/22 digestive no.8-L.acidophilus 50 1 tab PO BID #90 tabs 03/24/22 million cell-pectin 100 mg tablet (Digestive Enzyme (acidophilus, pectin, bromelain)) magnesium oxide 400 mg (241.3 mg 400 mg PO HS #30 tabs 03/24/22 magnesium) tablet midodrine 10 mg tablet 10 mg PO TID #180 tabs 03/24/22 promethazine 25 mg tablet 25 mg PO TID PRN nausea and 04/26/22 vomiting #7 tabs metoclopramide HCl 5 mg tablet 5 mg PO QID #10 tabs 05/06/22 (Reglan) Allergies Allergy/AdvReac Type Severity Reaction Status Date / Time aspirin Allergy Unknown HIVES, Verified 05/06/22 17:03 flip out diclofenac Allergy Unknown RASH Verified 05/06/22 17:03 latex Allergy Unknown SKIN Verified 05/06/22 17:03 BREAKDOWN NSAIDS (Non-Steroidal Allergy Unknown HIVES, Verified 05/06/22 17:03 Anti-Inflamma VOMITING morphine AdvReac Unknown VOMITING Verified 05/06/22 17:03 General Stated Complaint: Nausea/Vomit/Diar ALVIN: 3 Review of Systems All systems reviewed & are unremarkable except as noted in HPI and below PFSH All Active Problems Discharge planning issues (Acute) DVT prophylaxis (Acute) CHF (congestive heart failure) (Chronic) Chronic vomiting (Chronic) Chronic diarrhea (Chronic) Nausea & vomiting (Acute) CKD (chronic kidney disease) (Chronic) Regurgitation of food (Acute) Renal insufficiency (Chronic) Symptomatic anemia (Acute) New onset a-fib (Acute) Anemia (Chronic) Immunoglobulin deficiency (Acute) Chronic pulmonary aspiration (Acute) Grief (Chronic) brother Nov 2020 Low-level of literacy (Chronic) Palliative care patient (Acute) Orthostatic hypotension (Acute) Acute congestive heart failure (Acute) NSTEMI (non-ST elevated myocardial infarction) (Acute) Shortness of breath (Acute) Syncope (Chronic) IDDM (insulin dependent diabetes mellitus) (Chronic) Hiatal hernia (Chronic) Pulmonary fibrosis (Chronic) Renal insufficiency (Chronic) Functional encopresis (Chronic) Palliative care patient (Chronic) Pulmonary hypertension (Chronic) Chronic respiratory failure with hypoxia (Chronic) Advance directive on file (Acute) Long-term use of high-risk medication (Chronic 03/16/18) Interstitial lung disease (Acute 03/16/18) Pulm: [place] Gastroesophageal reflux disease without esophagitis (Chronic 03/16/18) Dyspnea (Chronic 03/16/18) Cognitive impairment (Chronic 03/16/18) Mild, w/Memory Loss Umbilical hernia (Chronic) Type II diabetes mellitus, uncontrolled (Chronic) Total urinary incontinence (Chronic) Medical History Abdominal pain Acute gastroenteritis (03/16/18) Acute kidney injury (nontraumatic) Acute pneumonitis SYD (acute kidney injury) Anosognosia Anxiety (03/16/18) Asthma Back pain Chest wall pain COPD (chronic obstructive pulmonary disease) Cough Cubital tunnel syndrome (03/16/18) Dehydration Depressive disorder Discharge planning issues DKA (diabetic ketoacidosis) DVT prophylaxis Edema (03/16/18) Encounter to establish care Essential hypertension (07/17/13) Fracture of humerus, proximal, left, closed (05/02/21) History of shingles (03/16/18) Hyperlipemia Inflammatory disorder of digestive tract Insulin dependent diabetes mellitus Internal derangement of right knee Medication monitoring encounter Metabolic acidosis with normal anion gap and bicarbonate losses Migraine (04/03/14) Nausea & vomiting Neck pain (03/16/18) 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 History of section Ligation of fallopian tube Thoracoscopic (R)Lung Bx (02/12/18) Family History Mother , aged 81 from dementia, per Elly Diabetes Essential hypertension CHF (congestive heart failure) Heart disease CHF/heart failure Dementia Father , aged 80 Diabetes Essential hypertension CAD (coronary artery disease) Heart disease [place] Hyperlipidemia Stroke Sister , aged 54 Diabetes Personal history of malignant neoplasm Lung Asthma Lung cancer Brother , of mesithelioma aged 62 Diabetes Essential hypertension Personal history of malignant neoplasm Lung, Prostate Hyperlipidemia Asthma Mesothelioma Brother , of PE following knee surgery age 69 Pulmonary embolus with infarction Daughter No problems noted. Son No problems noted. 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 Pets and animals: Yes Pets and animals: cat(s) Sexually active: No Do you think of yourself as: straight/heterosexual Current gender identity: female What is your relationship status?: How often do you talk on the phone with friends or family?: three or more times per week How often do you get together with friends or relatives?: three or more times per week How often do you attend mandaeism or christianity services?: 1-3 times per year Do you belong to any clubs or organized social groups?: no Panel score (0-1 are the most socially isolated patients): 1 What type of physical activity do you participate in: none and sedentary lifestyle Duration: < 15 minutes/day Frequency: does not exercise Bibi/Quaker: Tenriism Special bibi needs: No Agree to transfusion: Yes Seatbelt use: sometimes Helmet use: No Drive intox or ride w/intox recycler forklift driver truck driver: No Water heater temp set <120 deg: Yes Working smoke detector in home: Yes Fire extinguisher in home: Yes Carbon monox detector in home: Yes Do you feel safe at home: Yes Do you feel safe in your relationship?: Yes Victim of physical abuse: No Victim of emotional abuse: No Victim of sexual abuse: No Would you like helpful sources: No Additional Social history: Recently in the [facility] x 2 mos. Didn't feel she needed to be there. She reports was supposed to be a 2 week stay. She said she did all her own care. She says the staff is stretched thin. She can take care of herself at home just fine. She says her family is more worried about her than they need to be. Exam Const General: cooperative and ill appearing [facility] Other: Moist mucous membranes Eyes Pupils: PERRL Resp Effort & Inspection: normal respiratory effort Auscultation: clear to auscultation bilaterally Cardio Rate: regular rate Rhythm: regular rhythm GI Other: Mild diffuse abdominal tenderness without rebound or guarding, no distention Skin General skin exam: no rashes or lesions noted Neuro General: patient alert and patient oriented x3 Extrem Other: 1+ edema bilateral lower extremities Course Vital Signs Vital signs: Vital Signs Temperature 36.3 C L 05/06/22 16:59 Pulse 95 H 05/06/22 16:59 Respiratory Rate 16 05/06/22 16:59 Blood Pressure 110/67 05/06/22 16:59 Pulse Oximetry 93 05/06/22 16:59 Temperature 36.3 C L 05/06/22 16:59 Temperature Source Oral 05/06/22 16:59 Pulse 88 05/06/22 21:46 Respiratory Rate 18 05/06/22 21:46 Respiratory Effort 05/06/22 17:25 Blood Pressure 117/55 L 05/06/22 21:46 Blood Pressure Position Sitting 05/06/22 16:59 Pulse Oximetry 98 05/06/22 21:46 Oxygen Delivery Method Nasal Cannula 05/06/22 21:46 Oxygen Flow Rate 2 05/06/22 21:46 Pain Level 0 05/06/22 16:59 Lab/Test Results Lab/Test Results: Laboratory Tests Range/Units 05/06/22 05/06/22 05/06/22 17:47 17:47 17:47 WBC (4.4-10.8) 10^3/uL 13.66 H RBC (3.93-5.22) 10^6/uL 4.57 Hgb (11.2-15.7) g/dL 14.9 Hct (36.0-46.0) % 45.3 MCV (80-95) fL 99 H MCH (27.0-33.0) pg 32.6 MCHC (32.0-36.0) % 32.9 RDW (11.7-14.6) % 13.9 Plt Count (130-400) 10^3/uL 436 H MPV (8.0-11.0) fL 9.7 Immature Gran % 0.3 Neutrophils % 70.7 Lymphocytes % 19.0 Monocytes % 4.9 Eosinophils % 4.6 Basophils % 0.5 Nucleated RBC % (0.0-0.3) % 0.0 Absolute Neutrophils (1.2-6.7) 10^3/uL 9.66 H Absolute Lymphocytes (1.2-3.4) 10^3/uL 2.60 Absolute Monocytes (0.1-0.8) 10^3/uL 0.67 Absolute Eosinophils (0.0-0.7) 10^3/uL 0.63 Absolute Basophils (0.0-0.2) 10^3/uL 0.07 VBG pH (7.31-7.41) VBG pCO2 (41-51) mmHg VBG pO2 mmHg VBG HCO3 (23-28) mmol/L VBG Total CO2 (24-29) mmol/L VBG O2 Saturation % VBG Base Excess (-2-3) mmol/L VBG Lactate (0.6-1.4) mmol/L 2.3 H* Sodium (136-145) mmol/L 139 Potassium (3.5-5.1) mmol/L 4.9 Chloride (98-107) mmol/L 99 Carbon Dioxide (21.0-32.0) mmol/L 28.0 Anion Gap (3-11) mmol/L 12.0 H BUN (7-18) mg/dL 30 H Creatinine (0.55-1.02) mg/dL 1.7 H Estimated GFR/1.73 m2 (mL/min/1.73m2) 29.71 Glucose (74-106) mg/dL 117 H Calcium (8.5-10.1) mg/dL 9.8 Magnesium (1.8-2.4) mg/dL 2.7 H Total Bilirubin (0.2-1.0) mg/dL 0.6 AST (15-37) U/L 31 ALT (14-59) U/L 24 Alkaline Phosphatase (46-116) U/L 116 Troponin I (<or=60) ng/L < 50 Total Protein (6.4-8.2) g/dL 8.6 H Albumin (3.4-5.0) g/dL 4.1 Range/Units 05/06/22 05/06/22 17:47 21:39 WBC (4.4-10.8) 10^3/uL RBC (3.93-5.22) 10^6/uL Hgb (11.2-15.7) g/dL Hct (36.0-46.0) % MCV (80-95) fL MCH (27.0-33.0) pg MCHC (32.0-36.0) % RDW (11.7-14.6) % Plt Count (130-400) 10^3/uL MPV (8.0-11.0) fL Immature Gran % Neutrophils % Lymphocytes % Monocytes % Eosinophils % Basophils % Nucleated RBC % (0.0-0.3) % Absolute Neutrophils (1.2-6.7) 10^3/uL Absolute Lymphocytes (1.2-3.4) 10^3/uL Absolute Monocytes (0.1-0.8) 10^3/uL Absolute Eosinophils (0.0-0.7) 10^3/uL Absolute Basophils (0.0-0.2) 10^3/uL VBG pH (7.31-7.41) 7.33 VBG pCO2 (41-51) mmHg 55 H VBG pO2 mmHg 24 VBG HCO3 (23-28) mmol/L 29 H VBG Total CO2 (24-29) mmol/L 26 VBG O2 Saturation % 41 VBG Base Excess (-2-3) mmol/L 3 VBG Lactate (0.6-1.4) mmol/L 0.9 Sodium (136-145) mmol/L Potassium (3.5-5.1) mmol/L Chloride (98-107) mmol/L Carbon Dioxide (21.0-32.0) mmol/L Anion Gap (3-11) mmol/L BUN (7-18) mg/dL Creatinine (0.55-1.02) mg/dL Estimated GFR/1.73 m2 (mL/min/1.73m2) Glucose (74-106) mg/dL Calcium (8.5-10.1) mg/dL Magnesium (1.8-2.4) mg/dL Total Bilirubin (0.2-1.0) mg/dL AST (15-37) U/L ALT (14-59) U/L Alkaline Phosphatase (46-116) U/L Troponin I (<or=60) ng/L Total Protein (6.4-8.2) g/dL Albumin (3.4-5.0) g/dL
[2022-05-07] VITALS (12 sets, daily range): BP systolic 94–130; BP diastolic 50–78; PULSE 78–105; RESP 1–22; TEMP 37.1–37.4; O2SAT 91–99
[2022-05-07 00:33] LABS: Source Nasal/Nares
--- NOTE | 2022-05-07 01:01 | HPE_ITS ---
Date of service: 05/06/22 Time of Service: 23:40 Assessment and Plan Assessment and plan (1) Acute dehydration: Start date: 05/06/22 Status: Acute Assessment and plan: This is a 71-year-old lady who has had worsening of chronic problems recently dehydrated. She has had several visits to the ED and has seated at home therefore she will be admitted for IV hydration and trending labs. Overall she appears comfortable and is not having overt CHF with diuretics be held while gently hydrating. Watch for fluid overload. (2) Nausea & vomiting: Start date: 05/06/22 Status: Acute Assessment and plan: Patient appears to have exacerbation of her chronic problems and this may be associated with a viral gastroenteritis with imaging unrevealing and symptoms persisting. Symptomatic care. Advance diet as tolerated. (3) Chronic diarrhea: Status: Chronic Assessment and plan: Patient is chronically on antidiarrheals which will be used as needed. We will check for C. difficile and stool pathogens if symptoms progress. Bowel rest is necessary. (4) Chronic vomiting: Status: Chronic Assessment and plan: Chronic intermittent be used which is difficult with her antidepressants and cross reactions. Symptomatic care while hospitalized. Advance diet as tolerated. (5) CKD (chronic kidney disease): Status: Chronic Assessment and plan: Monitor while we hydrate. (6) Type II diabetes mellitus, uncontrolled: Status: Chronic Assessment and plan: Glucometers before meals and at bedtime with short acting insulin coverage while hospitalized. Qualifiers: Glycemic state: with hyperglycemia Qualified Code(s): E11.65 - Type 2 diabetes mellitus with hyperglycemia (7) Cognitive impairment: Status: Chronic Assessment and plan: Reevaluate safety at home and patient's ability to self-care. Etiology evaluation. (8) CHF (congestive heart failure): Status: Chronic Assessment and plan: Hold diuretics for now and watch for fluid overload with IV hydration for dehydration. Advance oral hydration as tolerated. History of Present Illness History of Present Illness Chief Complaint: Dehydration with nausea vomiting and acute on chronic diarrhea Narrative: this is a 71-year-old female patient who lives alone but is attended by her grandson who is a power of igniter assembler or guardian and neighbors) to help her. She has chronic loose stool but recently has been having more watery diarrhea and nausea with vomiting of most of her intake. She has several visits to the ED according to the ED and was not able to tolerate oral intake and appeared dehydrated in the ED upon admission. Patient does have some problems with diabetes and chronic kidney disease as well as heart failure on chronic diuretic but may worsen her dehydrated state. She is able to speak normally and has not appeared to be severely demented though there is a history of some short-term memory problems. Eventually functioning well overall but needs more assistance presently. He was admitted for IV hydration with holding her usual diuretics and for close monitoring while gently hydrating with IV fluids. Patient denies any shortness of breath or increased edema. Overall she appears to be functioning well at home except his acute episode of building seem tenuous with her living alone most of the time. This can be investigated further by clinical social work therapist. Patient does have a history of atrial fibrillation though this does not appear to be active and patient is not on anticoagulation review of chart. She has had recent left shoulder surgery for nonunion left humeral fracture. Review of Systems Narrative: 13 point review of systems otherwise unrevealing or stable. [facility] All Active Problems (Updated 05/07/22 @ 06:41 by Víctor Donaldson) CHF (congestive heart failure) (Chronic) Chronic vomiting (Chronic) Chronic diarrhea (Chronic) Acute dehydration (Acute) Nausea & vomiting (Acute) CKD (chronic kidney disease) (Chronic) Regurgitation of food (Acute) Renal insufficiency (Chronic) Symptomatic anemia (Acute) New onset a-fib (Acute) Anemia (Chronic) Immunoglobulin deficiency (Acute) Chronic pulmonary aspiration (Acute) Grief (Chronic) brother Nov 2020 Low-level of literacy (Chronic) Palliative care patient (Acute) Orthostatic hypotension (Acute) Acute congestive heart failure (Acute) NSTEMI (non-ST elevated myocardial infarction) (Acute) Shortness of breath (Acute) Syncope (Chronic) IDDM (insulin dependent diabetes mellitus) (Chronic) Hiatal hernia (Chronic) Pulmonary fibrosis (Chronic) Renal insufficiency (Chronic) Functional encopresis (Chronic) Palliative care patient (Chronic) Pulmonary hypertension (Chronic) Chronic respiratory failure with hypoxia (Chronic) Advance directive on file (Acute) Long-term use of high-risk medication (Chronic 03/16/18) Interstitial lung disease (Acute 03/16/18) Pulm: Bertin Gastroesophageal reflux disease without esophagitis (Chronic 03/16/18) Dyspnea (Chronic 03/16/18) Cognitive impairment (Chronic 03/16/18) Mild, w/Memory Loss Umbilical hernia (Chronic) Type II diabetes mellitus, uncontrolled (Chronic) Total urinary incontinence (Chronic) Medical History Abdominal pain Acute gastroenteritis (03/16/18) Acute kidney injury (nontraumatic) Acute pneumonitis SYD (acute kidney injury) Anosognosia Anxiety (03/16/18) Asthma Back pain Chest wall pain COPD (chronic obstructive pulmonary disease) Cough Cubital tunnel syndrome (03/16/18) Dehydration Depressive disorder Discharge planning issues DKA (diabetic ketoacidosis) DVT prophylaxis Edema (03/16/18) Encounter to establish care Essential hypertension (07/17/13) Fracture of humerus, proximal, left, closed (05/02/21) History of shingles (03/16/18) Hyperlipemia Inflammatory disorder of digestive tract Insulin dependent diabetes mellitus Internal derangement of right knee Medication monitoring encounter Metabolic acidosis with normal anion gap and bicarbonate losses Migraine (04/03/14) Nausea & vomiting Neck pain (03/16/18) 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 History of section Ligation of fallopian tube Thoracoscopic (R)Lung Bx (02/12/18) Family History Mother , aged 81 from dementia, [place] Elly Diabetes Essential hypertension CHF (congestive heart failure) Heart disease CHF/heart failure Dementia Father , aged 80 Diabetes Essential hypertension CAD (coronary artery disease) Heart disease [place] Hyperlipidemia Stroke Sister , aged 54 Diabetes Personal history of malignant neoplasm Lung Asthma Lung cancer Brother , of mesithelioma aged 62 Diabetes Essential hypertension Personal history of malignant neoplasm Lung, Prostate Hyperlipidemia Asthma Mesothelioma Brother , of PE following knee surgery age 69 Pulmonary embolus with infarction Daughter No problems noted. Son No problems noted. Social History (Reviewed 05/07/22 @ 01:44 by Víctor Waite Smoking/Tobacco Use Status: Never Smoking risk assessment performed?: Yes Alcohol Intake: never Details: monthly or less Drug use: Never Substance use type: does not use Adopted: No Caregiver/Support person: No Foster care: No Household members: none Housing: apartment Number of Children: 2 number of grandchildren: 5 Communication Needs: Hard of Hearing and Corrective Lenses Education Level: middle school Do you need help understanding health information?: Always current occupation: retired [employer] Pets and animals: Yes Pets and animals: cat(s) Sexually active: No Do you think of yourself as: straight/heterosexual Current gender identity: female What is your relationship status?: How often do you talk on the phone with friends or family?: three or more times per week How often do you get together with friends or relatives?: three or more times per week How often do you attend muslim or christian services?: 1-3 times per year Do you belong to any clubs or organized social groups?: no Panel score (0-1 are the most socially isolated patients): 1 What type of physical activity do you participate in: none and sedentary lifestyle Duration: < 15 minutes/day Frequency: does not exercise Bibi/Roman Catholic: [employer] Special bibi needs: No Agree to transfusion: Yes Seatbelt use: sometimes Helmet use: No Drive intox or ride w/intox rolloff truck driver: No Water heater temp set <120 deg: Yes Working smoke detector in home: Yes Fire extinguisher in home: Yes Carbon monox detector in home: Yes Do you feel safe at home: Yes Do you feel safe in your relationship?: Yes Victim of physical abuse: No Victim of emotional abuse: No Victim of sexual abuse: No Would you like helpful sources: No Additional Social history: Recently in the [facility] x 2 mos. Didn't feel she needed to be there. She reports was supposed to be a 2 week stay. She said she did all her own care. She says the staff is stretched thin. She can take care of herself at home just fine. She says her family is more worried about her than they need to be. Meds Allergies and Home Medications Allergies Allergy/AdvReac Type Severity Reaction Status Date / Time aspirin Allergy Unknown HIVES, Verified 05/06/22 17:03 flip out diclofenac Allergy Unknown RASH Verified 05/06/22 17:03 latex Allergy Unknown SKIN Verified 05/06/22 17:03 BREAKDOWN NSAIDS (Non-Steroidal Allergy Unknown HIVES, Verified 05/06/22 17:03 Anti-Inflamma VOMITING morphine AdvReac Unknown VOMITING Verified 05/06/22 17:03 Home Medications Medication Instructions Recorded Confirmed Type Oxygen #1 ea 11/29/18 04/26/22 History Wheeled walker with seat and basket #1 ea 02/07/19 04/26/22 Rx Face mask to deliver Oxygen #2 ea 04/23/19 04/26/22 Rx pen needle, diabetic 31 gauge x ##4 08/03/20 04/26/22 Rx 5/16 (Pen Needle) flash glucose scanning reader #1 ea 02/23/21 04/26/22 Rx (FreeStyle Kaye 2 [place]) flash glucose sensor (FreeStyle #1 ea 02/23/21 04/26/22 Rx Kaye 2 Sensor kit) blood sugar diagnostic (Blood #400 strips 03/10/21 04/26/22 Rx Glucose Test strips) lancets 28 gauge #400 ea 03/10/21 04/26/22 Rx acetaminophen 325 mg tablet 650 mg PO Q4H PRN PRN #0 tabs 03/24/21 04/26/22 Rx (Tylenol) pantoprazole 40 mg tablet,delayed 40 mg PO BID #90 tabs 05/14/21 05/06/22 Rx release escitalopram oxalate 20 mg tablet 20 mg PO DAILY #90 tabs 05/20/21 05/06/22 Rx ondansetron HCl 4 mg tablet 4 mg PO Q6H 05/25/21 05/06/22 History (Zofran) epinephrine 0.3 mg/0.3 mL 0.3 mg (0.3 mL) IM ONCE PRN 05/27/21 05/06/22 Rx injection, auto-injector (EpiPen anaphylaxis #1 ea 2-Gordon) insulin lispro 100 unit/mL 4 - 24 unit (0.04 - 0.24 mL) 06/30/21 04/26/22 Rx subcutaneous pen (Humalog KwikPen subcut AC #15 mL (U-100) Insulin) Oxygen #1 ea 08/16/21 04/26/22 History albuterol sulfate 2.5 mg/3 mL 2.5 mg (3 mL) inhalation Q4H PRN 08/16/21 04/26/22 Rx (0.083 %) solution for nebulization shortness of breath or wheezing #90 mL albuterol sulfate 90 mcg/actuation 2 puff inhalation Q4H PRN ##1 08/16/21 04/26/22 Rx aerosol inhaler (Ventolin HFA) nintedanib 150 mg capsule (Ofev) 150 mg PO Q12H #60 caps 08/16/21 05/06/22 Rx atorvastatin 80 mg tablet 80 mg PO QPM #90 tabs 08/23/21 04/26/22 Rx benzonatate 100 mg capsule 100 mg PO TID PRN cough #30 caps 09/27/21 04/26/22 Rx furosemide 40 mg tablet 40 mg PO DAILY #90 tabs 10/27/21 05/06/22 Rx loperamide 2 mg tablet 2 mg PO Q6H PRN loose stool #60 11/01/21 04/26/22 Rx (Anti-Diarrheal (loperamide)) tabs multivitamin (Daily Multi-Vitamin 1 tab PO DAILY 11/01/21 05/06/22 History tablet) pen needle, diabetic 31 gauge x #1,200 ea 11/01/21 04/26/22 Rx 5/16 (BD Ultra-Fine Short Pen Needle) polyethylene glycol 3350 17 17 g PO DAILY 11/01/21 05/06/22 History gram/dose oral powder (Miralax) cyclobenzaprine 5 mg tablet 5 mg PO DAILY PRN muscle spasm #90 11/22/21 05/06/22 Rx tabs insulin glargine 100 unit/mL (3 18 unit subcut .NIGHTLY 12/02/21 05/06/22 History mL) subcutaneous pen (Lantus Solostar U-100 Insulin) cholecalciferol (vitamin D3) 1,250 1,250 mcg PO .COMPLEX #24 caps 01/17/22 05/06/22 Rx mcg (50,000 unit) capsule ergocalciferol (vitamin D2) 1,250 1,250 mcg PO Q2W #4 caps 01/21/22 05/06/22 Rx mcg (50,000 unit) capsule (Vitamin D2) lidocaine 5 % topical patch 1 patch topical DAILY #30 ea 01/21/22 04/26/22 Rx (Lidoderm) metoprolol tartrate 25 mg tablet 12.5 mg PO BID #45 tabs 01/24/22 04/26/22 Rx celecoxib 100 mg capsule 100 mg PO DAILY #60 caps 02/23/22 04/26/22 Rx guaifenesin 200 mg tablet 200 mg PO QID PRN cough #60 tabs 03/04/22 05/06/22 Rx oxycodone 10 mg tablet 10 mg PO Q4H PRN pain #100 tabs 03/04/22 05/06/22 Rx spironolactone 25 mg tablet 25 mg PO DAILY #30 tabs 03/11/22 05/06/22 Rx digestive no.8-L.acidophilus 50 1 tab PO BID #90 tabs 03/24/22 05/06/22 Rx million cell-pectin 100 mg tablet (Digestive Enzyme (acidophilus, pectin, bromelain)) magnesium oxide 400 mg (241.3 mg 400 mg PO HS #30 tabs 03/24/22 05/06/22 Rx magnesium) tablet midodrine 10 mg tablet 10 mg PO TID #180 tabs 03/24/22 05/06/22 Rx promethazine 25 mg tablet 25 mg PO TID PRN nausea and 04/26/22 05/06/22 Rx vomiting #7 tabs metoclopramide HCl 5 mg tablet 5 mg PO QID #10 tabs 05/06/22 Rx (Reglan) Exam Narrative Exam Narrative: General: Patient appears appropriate for age, in no acute distress, alert and oriented at least to person and place. She is sitting in bed comfortably. HEENT: Normocephalic, eyes with pupils equal and reactive light symmetrically, extraocular movement intact and sclera anicteric. Oral mucosa with slightly dry mucosa and fair dentition. Neck: Supple without JVD. Lungs: Fair aeration and clear. Heart: Regular rate and rhythm with no murmurs or gallops appreciated. Breast: Exam deferred. Abdomen: Obese contour, soft and tender diffusely with no guarding or rebound. No tympany to percussion. No palpable hepatosplenomegaly. Bowel sounds positive all quadrants with decreased. Genitalia/rectal: Patient is wearing adult diaper otherwise exam deferred. Extremities: Without clubbing, cyanosis or pitting edema. Peripheral pulses grossly intact. Left shoulder tender to movement. No swelling. Skin: Normal color, warm and dry. Neuro: Cranial nerves II through XII gross intact, no focal motor deficits. No tremor. Psych: Normal affect and mood. No abnormal thought processes. Remote memory grossly intact and recent memory testing appears intact without being challenged. Results Imaging Imaging Studies: Exam: XR Chest Exam date and time: 05/06/2022 20:36 Age: 71 years old Clinical indication: Other: Vomiting, weak TECHNIQUE: Imaging protocol: Radiologic exam of the chest. Views: 1 view. COMPARISON: CR XR CHEST 2V PA LATERAL 09/21/2021 14:10 FINDINGS: Lungs: Low lung volumes. Moderate right greater than left pulmonary interstitial and airspace opacities greatly increased since prior. Opacity in the left lung base. Difficult to compare given very low lung volumes. Pleural spaces: No large pleural effusion. No pneumothorax. Heart/Mediastinum: No cardiomegaly. Bones/joints: Left glenohumeral arthroplasty now present grossly intact as visualized. No displaced fracture. IMPRESSION: A component of chronic pulmonary disease is suspected. Superimposed pneumonia edema and or atelectasis is possible on this very low volume view. Exam: CT Abdomen And Pelvis Without Contrast Exam date and time: 05/06/2022 20:32 Age: 71 years old Clinical indication: Vomiting TECHNIQUE: Imaging protocol: Computed tomography of the abdomen and pelvis without contrast. Other contrast: Oral, Gastroview , 25; COMPARISON: CT ABDOMEN PELVIS WO 04/26/2022 17:00 FINDINGS: Lungs: Chronic appearing peripheral pulmonary fibrotic changes are similar to previous imaging. Diaphragm: Moderate hiatal hernia. Liver: No hepatic masses on noncontrast imaging. Gallbladder and bile ducts: Cholecystectomy. No significant biliary dilation or radiopaque stones in the biliary tree. Pancreas: No gross pathology in the pancreas on noncontrast imaging. Spleen: No splenomegaly or focal lesions. Adrenal glands: No mass. Kidneys and ureters: No nephrolithiasis or collecting system obstruction. Stomach and bowel: Submucosal fat deposition in the colon, likely habitus and or diet related. Enteric contrast in small bowel as expected. No enteritis or small bowel obstruction. No colitis or significant diverticular disease. Appendix: No evidence of appendicitis. Intraperitoneal space: No free air. No significant fluid collection. Vasculature: No abdominal aortic aneurysm. Lymph nodes: No significantly enlarged lymph nodes. Urinary bladder: The urinary bladder is distended. No urinary bladder wall thickening. Reproductive: Unremarkable as visualized. Bones/joints: Chronic mild loss of height at L1 anteriorly. No acute fracture or subluxation. Soft tissues: No suspicious lesions.? IMPRESSION: 1. No acute findings on noncontrast imaging. 2. Additional findings as described. Labs Result diagrams: 05/06/22 17:47 05/06/22 17:47 Labs: Laboratory Results - last 24 hr 05/06/22 05/06/22 05/06/22 17:47 17:47 17:47 WBC 13.66 H RBC 4.57 Hgb 14.9 Hct 45.3 MCV 99 H MCH 32.6 MCHC 32.9 RDW 13.9 Plt Count 436 H MPV 9.7 Immature Gran % 0.3 Neutrophils % 70.7 Lymphocytes % 19.0 Monocytes % 4.9 Eosinophils % 4.6 Basophils % 0.5 Nucleated RBC % 0.0 Absolute Neutrophils 9.66 H Absolute Lymphocytes 2.60 Absolute Monocytes 0.67 Absolute Eosinophils 0.63 Absolute Basophils 0.07 VBG pH VBG pCO2 VBG pO2 VBG HCO3 VBG Total CO2 VBG O2 Saturation VBG Base Excess VBG Lactate 2.3 H* Sodium 139 Potassium 4.9 Chloride 99 Carbon Dioxide 28.0 Anion Gap 12.0 H BUN 30 H Creatinine 1.7 H Estimated GFR/1.73 m2 29.71 Glucose 117 H Calcium 9.8 Magnesium 2.7 H Total Bilirubin 0.6 AST 31 ALT 24 Alkaline Phosphatase 116 Troponin I < 50 Total Protein 8.6 H Albumin 4.1 COVID-19 Source 05/06/22 05/06/22 05/07/22 17:47 21:39 00:30 WBC RBC Hgb Hct MCV MCH MCHC RDW Plt Count MPV Immature Gran % Neutrophils % Lymphocytes % Monocytes % Eosinophils % Basophils % Nucleated RBC % Absolute Neutrophils Absolute Lymphocytes Absolute Monocytes Absolute Eosinophils Absolute Basophils VBG pH 7.33 VBG pCO2 55 H VBG pO2 24 VBG HCO3 29 H VBG Total CO2 26 VBG O2 Saturation 41 VBG Base Excess 3 VBG Lactate 0.9 Sodium Potassium Chloride Carbon Dioxide Anion Gap BUN Creatinine Estimated GFR/1.73 m2 Glucose Calcium Magnesium Total Bilirubin AST ALT Alkaline Phosphatase Troponin I Total Protein Albumin COVID-19 Source Nasal/Nares Last Vital Signs Temp 36.3 C L 05/06/22 16:59 Pulse 88 05/06/22 21:46 Resp 18 05/06/22 21:46 BP 117/55 L 05/06/22 21:46 Pulse Ox 98 05/06/22 21:46
[2022-05-07 01:25] LABS: COVID-19 PCR Negative (Negative)
[2022-05-07] MEDS: Ondansetron 4 MG/2 ML VIAL IVP (02:35)
[2022-05-07] MEDS: Normal Saline Flush 10 ML SYR IVP ×3 (02:35→10:23)
[2022-05-07] MEDS: Lactated Ringers 1,000 ML 80 ML IV ×2 (02:35→14:52)
[2022-05-07] MEDS: Albuterol/Ipratropium 3 ML UPD VIAL UPD ×4 (02:41→20:17)
[2022-05-07] MEDS: Heparin 5,000 UNITS/ML VIAL 5000 UNITS SC ×3 (05:48→22:29)
[2022-05-07 06:48] LABS: Abs Immature Grans 0.04 10^3/uL (0.0-0.06); Absolute Eosinophil Count 0.55 10^3/uL (0.0-0.7); Absolute Monocyte Count 0.79 10^3/uL (0.1-0.8); Basophils % 0.5; Eosinophils % 4.3; HCT 39.4 % (36.0-46.0); HGB 12.6 g/dL (11.2-15.7); Immature Grans % 0.3; Lymphocytes % 22.5; MCH 32.1 pg (27.0-33.0); MCV 100 fL (80-95); Monocytes % 6.2; Neutrophils % 66.2; RBC 3.93 10^6/uL (3.93-5.22); RDW 13.6 % (11.7-14.6); RDW-SD 50.2 fL; WBC 12.73 10^3/uL (4.4-10.8)
[2022-05-07 06:55] LABS: Absolute Basophil Count 0.06 10^3/uL (0.0-0.2); Absolute Lymphocyte Count 2.86 10^3/uL (1.2-3.4); Absolute Neutrophil Count 8.43 10^3/uL (1.2-6.7)
[2022-05-07 07:07] LABS: Diff Comment Diff Reviewed; RBC Morphology Normal
[2022-05-07 07:16] LABS: ALT 22 U/L (14-59); AST 26 U/L (15-37); Albumin 3.4 g/dL (3.4-5.0); Alkaline Phosphatase 95 U/L (46-116); Anion Gap 11.2 mmol/L (3-11); BUN 24 mg/dL (7-18); Bilirubin, Total 0.6 mg/dL (0.2-1.0); CO2 26.8 mmol/L (21.0-32.0); CREATININE 1.4 mg/dL (0.55-1.02); Calcium 9.1 mg/dL (8.5-10.1); Chloride 102 mmol/L (98-107); Estimated GFR 37.18 (mL/min/1.73m2); Glucose 82 mg/dL (74-106); Magnesium 2.3 mg/dL (1.8-2.4); Potassium 4.4 mmol/L (3.5-5.1); Sodium 140 mmol/L (136-145); TSH (W/Ref FT4) 3.72 uIU/mL (0.36-3.74)
[2022-05-07] MEDS: Pantoprazole 40 MG VIAL IVP (07:40)
[2022-05-07 07:55] LABS: Lab Add On Test DONE
[2022-05-07 08:55] LABS: Procalcitonin 0.4 ng/mL
[2022-05-07] MEDS: Midodrine 2.5 MG TAB 10 MG PO ×3 (09:34→20:16)
[2022-05-07] MEDS: Metoprolol 12.5 MG TAB PO ×2 (09:34→20:17)
[2022-05-07] MEDS: Escitalopram 20 MG TAB PO (09:34)
--- NOTE | 2022-05-07 10:39 | INITIAL_ITS ---
- If Service Date Differs Date of service: 05/07/22 Time of Service: 10:39 Care Management Initial Assess REASON FOR HOSPITALIZATION:: Dehydration, Acute Gastroenteritis PAST MEDICAL HISTORY/PAST SURGICAL HISTORY:: All Active Problems (Updated 05/07/22 @ 06:41 by Víctor Donaldson). CHF (congestive heart failure) (Chronic). Chronic vomiting (Chronic). Chronic diarrhea (Chronic). Acute dehydration (Acute). Nausea & vomiting (Acute). CKD (chronic kidney disease) (Chronic). Regurgitation of food (Acute). Renal insufficiency (Chronic). Symptomatic anemia (Acute). New onset a-fib (Acute). Anemia (Chronic). Immunoglobulin deficiency (Acute). Chronic pulmonary aspiration (Acute). Grief (Chronic). brother Nov 2020. Low-level of literacy (Chronic). Palliative care patient (Acute). Orthostatic hypotension (Acute). Acute congestive heart failure (Acute). NSTEMI (non-ST elevated myocardial infarction) (Acute). Shortness of breath (Acute). Syncope (Chronic). IDDM (insulin dependent diabetes mellitus) (Chronic). Hiatal hernia (Chronic). Pulmonary fibrosis (Chronic). Renal insufficiency (Chronic). Functional encopresis (Chronic). Palliative care patient (Chronic). Pulmonary hypertension (Chronic). Chronic respiratory failure with hypoxia (Chronic). Advance directive on file (Acute). Long-term use of high-risk medication (Chronic 03/16/18). Interstitial lung disease (Acute 03/16/18). Pulm: Bertin. Gastroesophageal reflux disease without esophagitis (Chronic 03/16/18). Dyspnea (Chronic 03/16/18). Cognitive impairment (Chronic 03/16/18). Mild, w/Memory Loss. Umbilical hernia (Chronic). Type II diabetes mellitus, uncontrolled (Chronic). Total urinary incontinence (Chronic). Medical History . Abdominal pain. Acute gastroenteritis (03/16/18). Acute kidney injury (nontraumatic). Acute pneumonitis. SYD (acute kidney injury). Anosognosia. Anxiety (03/16/18). Asthma. Back pain. Chest wall pain. COPD (chronic obstructive pulmonary disease). Cough. Cubital tunnel syndrome (03/16/18). Dehydration. Depressive disorder. Discharge planning issues. DKA (diabetic ketoacidosis). DVT prophylaxis. Edema (03/16/18). Encounter to establish care. Essential hypertension (07/17/13). Fracture of humerus, proximal, left, closed (05/02/21). History of shingles (03/16/18). Hyperlipemia. Inflammatory disorder of digestive tract. Insulin dependent diabetes mellitus. Internal derangement of right knee. Medication monitoring encounter. Metabolic acidosis with normal anion gap and bicarbonate losses. Migraine (04/03/14). Nausea & vomiting. Neck pain (03/16/18). 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 Osteoporosis (03/16/18). Pain in left hand. Peripheral neuralgia. Post herpetic neuralgia (03/16/18). Ribs, multiple fractures. Screening cholesterol level. Sepsis. Shoulder fracture, left. Shoulder pain. left- surgery. Syncope. Surgical History . Appendectomy. Arthroscopy, Shoulder. left. Bilateral salpingectomy with oophorectomy. section. Cholecystectomy. Age 20. . History of section. Ligation of fallopian tube. Thoracoscopic (R)Lung Bx (02/12/18) PREVIOUS FUNCTIONAL STATUS/SOCIAL/FAMILY SUPPORTS:: Elly lives in [facility]. View appartments. oZila, Cheyenne and Tami are 'neighbors' who she identifies as being very supportive. They reportedly help her with housework, grocery shopping and bathing. Her grandson Jorge Luis is her DPOA. CURRENT FUNCTIONAL STATUS:: Elly was sitting up in bed eating her dinner when CM met with her. She is alert, oriented and appropriate. Elly shares that she feels very supported at home. Per Elly if she needs anything, she will call one of the girls. Her neighbors are Zoila, Cheyenne and Tami and they are all supportive. ADVANCE DIRECTIVES:: on file, DPOA is Jorge Luis eZpeda Has patient been provided with info about the portal/API?: Yes Did the patient sign up for the portal?: Yes (Prior to admission) CODE STATUS:: Full Code INSURANCE COVERAGE / FINANCIAL ISSUES:: C MCR replacement, LTC Medicaid CURRENT HOME/COMMUNITY SERVICES/EQUIPMENT:: Hospital bed, motorized scooter, MOW, Home O2 (Preeti). Elly is connected to the [facility] PRIMARY CARE PHYSICIAN:: Dharmesh Nolasco POTENTIAL DISCHARGE NEEDS:: Palliative Care Consult. Increased Community Support. [facility] Services PATIENT/FAMILY EDUCATION NEEDS:: Review discharge instructions, discuss Ask Me Three. TRANSPORTATION:: Private vehicle with Queta Kang or a friend. PLAN:: Elly continues to be closely monitored and treated per MD. Palliative care consult is ordered. Patients [facility] is queta Kang. Elly is not interested in going to a SNF for STR. She is agreeable to discharging home when medically ready, with [facility] services. CM continues to follow.
--- NOTE | 2022-05-07 11:49 | PT.INIE ---
Date of service: 05/07/22 Time of Service: 11:00 PT Notes Visit Reasons: Dehydration, Acute Gastroenteritis Inpatient Physical Therapy Evaluation Date: 05/07/22 Referring Doctor: Víctor Donaldson PT Orders: PT CONSULT: Limited ability Precautions: Standard, contact Patient Profile/Admitting Diagnosis: Orders received for this 71 year old female who has been admitted after having several days of vomiting and diarrhea. Apparently she is on chronic anti diarrhea medications but even despite this she is suffering from chronic bowel issues and more recent incontinence. She was starting to get more weak at home and after a trip the ED was accepted for admission on to the Med Surg Floor. PMHX: All Active Problems?(Updated 05/07/22 @ 06:41 by Víctor Donaldson) CHF (congestive heart failure) (Chronic) Chronic vomiting (Chronic) Chronic diarrhea (Chronic) Acute dehydration (Acute) Nausea & vomiting (Acute) CKD (chronic kidney disease) (Chronic) Regurgitation of food (Acute) Renal insufficiency (Chronic) Symptomatic anemia (Acute) New onset a-fib (Acute) Anemia (Chronic) Immunoglobulin deficiency (Acute) Chronic pulmonary aspiration (Acute) Grief (Chronic) brother Novow-level of literacy (Chronic) Palliative care patient (Acute) Orthostatic hypotension (Acute) Acute congestive heart failure (Acute) NSTEMI (non-ST elevated myocardial infarction) (Acute) Shortness of breath (Acute) Syncope (Chronic) IDDM (insulin dependent diabetes mellitus) (Chronic) Hiatal hernia (Chronic) Pulmonary fibrosis (Chronic) Renal insufficiency (Chronic) Functional encopresis (Chronic) Palliative care patient (Chronic) Pulmonary hypertension (Chronic) Chronic respiratory failure with hypoxia (Chronic) Advance directive on file (Acute) Long-term use of high-risk medication (Chronic 03/16/18) Interstitial lung disease (Acute 03/16/18) Pulm: JedlovskyGastroesophageal reflux disease without esophagitis (Chronic 03/16/18) Dyspnea (Chronic 03/16/18) Cognitive impairment (Chronic 03/16/18) Mild, w/Memory Loss Umbilical hernia (Chronic) Type II diabetes mellitus, uncontrolled (Chronic) Total urinary incontinence (Chronic) Medical History? Abdominal pain Acute gastroenteritis (03/16/18) Acute kidney injury (nontraumatic) Acute pneumonitis SYD (acute kidney injury) Anosognosia Anxiety (03/16/18) Asthma Back pain Chest wall pain COPD (chronic obstructive pulmonary disease) Cough Cubital tunnel syndrome (03/16/18) Dehydration Depressive disorder Discharge planning issues DKA (diabetic ketoacidosis) DVT prophylaxis Edema (03/16/18) Encounter to establish care Essential hypertension (07/17/13) Fracture of humerus, proximal, left, closed (05/02/21) History of shingles (03/16/18) Hyperlipemia Inflammatory disorder of digestive tract Insulin dependent diabetes mellitus Internal derangement of right knee Medication monitoring encounter Metabolic acidosis with normal anion gap and bicarbonate losses Migraine (04/03/14) Nausea & vomiting Neck pain (03/16/18) 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 Appendectomy Arthroscopy, Shoulder leftBilateral salpingectomy with oophorectomy section Cholecystectomy Age 20. of section Ligation of fallopian tube Thoracoscopic (R)Lung Bx (02/12/18) Social History/Home Situation: Patient lives at home alone locally in the area. Several family members are available close by including daughter and grandson. She currently is living independently in the community Equipment Owned/DME: 2WW and hospital bed Subjective: Patient states she does not want to get out of bed due to fear of incontinence. Objective: Patient lying in bed with head of bed to 30. IV access through Mental Status: Well oriented alert pleasant female, who appears of stated age in no current acute distress. Pain: 5/10 through right shoulder ROM: Right Upper Extremity: WFL Left Upper Extremity: limited to 60 degrees of shoulder flexion, elbow ROM WNL Right Lower Extremity: WFL Left Lower Extremity: WFL Strength: Right Upper Extremity: Globally 5/5 Left Upper Extremity: Shoulder flexion 2-/5, biceps 4/5, triceps 4/5, Right Lower Extremity: Globally 5/5 Left Lower Extremity: Globally 5/5 Bed Mobility/Transfers: Supine-sit: CGA Sit-stand: Patient refused Gait: Patient refused Special Tests: Mobility Limitations Standardized Measure [facility] AM-PAC 6 clicks Basic Mobility Inpatient Short Form: Raw Score: 15 Standardized Score: 34.69 CMS Score: 56.46 Informed Consent/Education: Patient instructed in purpose of PT consult and plan of care. ASSESSMENT: Patient is a 71 year old female Admitted with gastroenteritis, vomiting, diarrhea Patient presents with the following impairment level findings: Ambulation intolerance, difficulty getting out of bed, strength deficits globally Pt will benefit from skilled therapy intervention in order to remedy their functional limitations and restore patient to a more appropriate and stable functional level. Impairments are contributing to the following functional limitations: AMPAC score 56.46% Patient is assessed as a Moderate complexity initial evaluation based on the following: History: see above Examination: see above Presentation: evolving Decision Making: Goals: Goals X1 week 1. Supine-Sit Independent 2. Sit-Supine Independent 3. Sit-Stand Independent 4. Stand-Sit Independent 5. Bed-Chair Independent 6. Gait Independent up to 300 feet with least restrictive assisted device Plan of Care/Treatment Plan: 1-2x/day, 7 days/week x 1 week. Plan of care has been reviewed with the CONTINUUM OF CARE MANAGER providing the service under Physical Therapy direction. Initiate Physical Therapy intervention for strengthening, bed mobility, transfers, gait, stairs, balance training, use of assistive device. DISCHARGE RECOMMENDATIONS: (X ) Home with no services ( ) Home with services [specify] ( ) Home with outpatient PT ( ) SNF for continued rehabilitation ( ) Custodial Care ( ) SNF versus LTC based on ability to participate and progress TREATMENT CODE/TIME: Moderate complexity initial evaluation 67653 20 min, 1100am [facility]
[2022-05-07] MEDS: Insulin Aspart 300 UNITS/3 ML PEN SC ×2 (11:51→17:08)
--- NOTE | 2022-05-07 15:39 | W.PM.PROGNOT ---
Date of Service Date of service: 05/07/22 Time of Service: 15:39 Assessment and Plan Assessment and plan (1) Acute dehydration: Start date: 05/06/22 Status: Acute Assessment and plan: In setting of n/v and diarrhea. Continue IVF. Encourage PO fluids. (2) Chronic diarrhea: Status: Chronic Assessment and plan: The patient has been noncompliant with a low carb diet while on ofev. I have again reinforced the need for a carb restriction and have consulted nutrition to do the same. Meanwhile, should diarrhea recur here, will obtain stool studies. (3) Nausea & vomiting: Start date: 05/06/22 Status: Acute Assessment and plan: Improving. As above (4) CKD (chronic kidney disease): Status: Chronic Assessment and plan: Cr is at baseline. Monitor while hydrating. (5) Type II diabetes mellitus, uncontrolled: Status: Chronic Assessment and plan: Continue basal bolus insulin, SSi. Qualifiers: Glycemic state: with hyperglycemia Qualified Code(s): E11.65 - Type 2 diabetes mellitus with hyperglycemia (6) Cognitive impairment: Status: Chronic Assessment and plan: The patient requires repetitive reinforcement of what a low carb diet is. Nutrition has been consulted.. (7) CHF (congestive heart failure): Status: Chronic Assessment and plan: Chronic, diastolic as well as a mild R-sided component/pulmonary hypertension. Still clinically dry - continue to hold diuretics. (8) Pulmonary fibrosis: Status: Chronic Assessment and plan: Holding ofev today. Consider resuming tomorrow, possibly at a lower dose. (9) DVT prophylaxis: Status: Acute Assessment and plan: SC heparin (10) Discharge planning issues: Status: Acute Assessment and plan: Full code PT consulted. Palliative care patient. Admit to inpatient status. Subjective Subjective Interval history since last seen: Ms Pina reports generalized abdominal discomfort, nausea earlier (tolerated lunch - ate all of it). Last BM yesterday. Denies dizziness, chest pain. States her breathing is good. She is on 2L of O2 By [place]. Exam Narrative Exam Narrative: General: Pleasant elderly female, A&Ox3, looks tired, pale in bed HEENT: EOMI, MMM Heart: RRR, no m/r/g Lungs: crackles at B bases Abdomen: soft, diffusely tender, nondistended Extremities: no edema BLEs Objective Last Vital Signs Temp 37.2 C 05/07/22 15:01 Pulse 78 05/07/22 15:01 Resp 18 05/07/22 15:01 BP 105/65 05/07/22 15:01 Pulse Ox 95 05/07/22 15:01 Laboratory Results - last 24 hr 05/06/22 05/06/22 05/06/22 17:47 17:47 17:47 WBC 13.66 H RBC 4.57 Hgb 14.9 Hct 45.3 MCV 99 H MCH 32.6 MCHC 32.9 RDW 13.9 Plt Count 436 H MPV 9.7 Immature Gran % 0.3 Neutrophils % 70.7 Lymphocytes % 19.0 Monocytes % 4.9 Eosinophils % 4.6 Basophils % 0.5 Nucleated RBC % 0.0 Absolute Neutrophils 9.66 H Absolute Lymphocytes 2.60 Absolute Monocytes 0.67 Absolute Eosinophils 0.63 Absolute Basophils 0.07 RBC Morphology VBG pH VBG pCO2 VBG pO2 VBG HCO3 VBG Total CO2 VBG O2 Saturation VBG Base Excess VBG Lactate 2.3 H* Sodium 139 Potassium 4.9 Chloride 99 Carbon Dioxide 28.0 Anion Gap 12.0 H BUN 30 H Creatinine 1.7 H Estimated GFR/1.73 m2 29.71 Glucose 117 H Calcium 9.8 Magnesium 2.7 H Total Bilirubin 0.6 AST 31 ALT 24 Alkaline Phosphatase 116 Troponin I < 50 Total Protein 8.6 H Albumin 4.1 Procalcitonin TSH COVID-19 Source SARS-CoV-2 (PCR) Add-On Test Request 05/06/22 05/06/22 05/07/22 17:47 21:39 00:30 WBC RBC Hgb Hct MCV MCH MCHC RDW Plt Count MPV Immature Gran % Neutrophils % Lymphocytes % Monocytes % Eosinophils % Basophils % Nucleated RBC % Absolute Neutrophils Absolute Lymphocytes Absolute Monocytes Absolute Eosinophils Absolute Basophils RBC Morphology VBG pH 7.33 VBG pCO2 55 H VBG pO2 24 VBG HCO3 29 H VBG Total CO2 26 VBG O2 Saturation 41 VBG Base Excess 3 VBG Lactate 0.9 Sodium Potassium Chloride Carbon Dioxide Anion Gap BUN Creatinine Estimated GFR/1.73 m2 Glucose Calcium Magnesium Total Bilirubin AST ALT Alkaline Phosphatase Troponin I Total Protein Albumin Procalcitonin TSH COVID-19 Source Nasal/Nares SARS-CoV-2 (PCR) Negative Add-On Test Request 05/07/22 05/07/22 05/07/22 06:15 06:15 06:15 WBC 12.73 H RBC 3.93 Hgb 12.6 D Hct 39.4 MCV 100 H MCH 32.1 MCHC 32.0 RDW 13.6 Plt Count MPV Immature Gran % 0.3 Neutrophils % 66.2 Lymphocytes % 22.5 Monocytes % 6.2 Eosinophils % 4.3 Basophils % 0.5 Nucleated RBC % 0.0 Absolute Neutrophils 8.43 H Absolute Lymphocytes 2.86 Absolute Monocytes 0.79 Absolute Eosinophils 0.55 Absolute Basophils 0.06 RBC Morphology Normal VBG pH VBG pCO2 VBG pO2 VBG HCO3 VBG Total CO2 VBG O2 Saturation VBG Base Excess VBG Lactate Sodium 140 Potassium 4.4 Chloride 102 Carbon Dioxide 26.8 Anion Gap 11.2 H BUN 24 H Creatinine 1.4 H Estimated GFR/1.73 m2 37.18 Glucose 82 Calcium 9.1 Magnesium 2.3 Total Bilirubin 0.6 AST 26 ALT 22 Alkaline Phosphatase 95 Troponin I Total Protein 7.0 Albumin 3.4 Procalcitonin TSH Cancelled 3.72 COVID-19 Source SARS-CoV-2 (PCR) Add-On Test Request 05/07/22 05/07/22 06:15 06:15 WBC RBC Hgb Hct MCV MCH MCHC RDW Plt Count MPV Immature Gran % Neutrophils % Lymphocytes % Monocytes % Eosinophils % Basophils % Nucleated RBC % Absolute Neutrophils Absolute Lymphocytes Absolute Monocytes Absolute Eosinophils Absolute Basophils RBC Morphology VBG pH VBG pCO2 VBG pO2 VBG HCO3 VBG Total CO2 VBG O2 Saturation VBG Base Excess VBG Lactate Sodium Potassium Chloride Carbon Dioxide Anion Gap BUN Creatinine Estimated GFR/1.73 m2 Glucose Calcium Magnesium Total Bilirubin AST ALT Alkaline Phosphatase Troponin I Total Protein Albumin Procalcitonin 0.4 TSH COVID-19 Source SARS-CoV-2 (PCR) Add-On Test Request DONE
[2022-05-07] MEDS: Atorvastatin 40 MG TAB 80 MG PO (20:17)
[2022-05-07 21:26] LABS: C Diff PCR Negative (Negative)
[2022-05-08] MEDS: Lactated Ringers 1,000 ML 80 ML IV (04:30)
[2022-05-08] MEDS: Heparin 5,000 UNITS/ML VIAL 5000 UNITS SC ×3 (05:44→21:51)
[2022-05-08 05:55] VITALS: BP 122/71; PULSE 89; RESP 20; O2SAT 96
[2022-05-08 06:31] LABS: Abs Immature Grans 0.06 10^3/uL (0.0-0.06); Absolute Basophil Count 0.07 10^3/uL (0.0-0.2); Absolute Eosinophil Count 0.61 10^3/uL (0.0-0.7); Absolute Lymphocyte Count 2.53 10^3/uL (1.2-3.4); Absolute Monocyte Count 0.99 10^3/uL (0.1-0.8); Absolute Neutrophil Count 8.77 10^3/uL (1.2-6.7); Basophils % 0.5; Eosinophils % 4.7; HCT 33.8 % (36.0-46.0); HGB 11.2 g/dL (11.2-15.7); Immature Grans % 0.5; Lymphocytes % 19.4; MCH 32.6 pg (27.0-33.0); MCHC 33.1 % (32.0-36.0); MCV 98 fL (80-95); MPV 9.8 fL (8.0-11.0); Monocytes % 7.6; Neutrophils % 67.3; Platelet Count 330 10^3/uL (130-400); RBC 3.44 10^6/uL (3.93-5.22); RDW-SD 50.7 fL; WBC 13.03 10^3/uL (4.4-10.8)
[2022-05-08 06:48] LABS: Anion Gap 9.7 mmol/L (3-11); BUN 22 mg/dL (7-18); CO2 26.3 mmol/L (21.0-32.0); CREATININE 1.2 mg/dL (0.55-1.02); Calcium 9.4 mg/dL (8.5-10.1); Chloride 104 mmol/L (98-107); Estimated GFR 44.41 (mL/min/1.73m2); Glucose 169 mg/dL (74-106); Magnesium 1.8 mg/dL (1.8-2.4); Potassium 4.4 mmol/L (3.5-5.1); Sodium 140 mmol/L (136-145)
[2022-05-08 07:10] VITALS: BP 104/50; PULSE 91; RESP 18; TEMP 37.4; O2SAT 94
[2022-05-08] MEDS: Insulin Aspart 300 UNITS/3 ML PEN SC ×3 (08:33→16:43)
[2022-05-08] MEDS: Normal Saline Flush 10 ML SYR IVP ×3 (08:34→23:59)
[2022-05-08] MEDS: Midodrine 2.5 MG TAB 10 MG PO ×3 (08:34→20:12)
[2022-05-08] MEDS: Pantoprazole 40 MG VIAL IVP ×2 (08:34→16:27)
[2022-05-08] MEDS: Metoprolol 12.5 MG TAB PO ×2 (08:34→20:12)
[2022-05-08] MEDS: Escitalopram 20 MG TAB PO (08:35)
[2022-05-08] MEDS: Ondansetron 4 MG/2 ML VIAL IVP (08:56)
[2022-05-08 11:15] VITALS: BP 107/44; PULSE 70; RESP 18; TEMP 37.4; O2SAT 95
--- NOTE | 2022-05-08 12:22 | PT.INNT ---
PT Notes Visit Reasons: Dehydration, Acute Gastroenteritis refused PT indicating that she has been vomiting most of the am. She c/o pain in left shld with any mvmt, and I applied ice. Will check in on her in the am.
[2022-05-08] MEDS: Albuterol/Ipratropium 3 ML UPD VIAL UPD ×2 (13:18→20:12)
[2022-05-08 15:30] VITALS: BP 122/69; PULSE 63; RESP 16; TEMP 37.2; O2SAT 96
[2022-05-08 15:38] LABS: Lab Add On Test DONE
--- NOTE | 2022-05-08 15:41 | PGE_ITS ---
Date of Service Date of service: 05/08/22 Time of Service: 15:41 Assessment and Plan Assessment and plan (1) Chronic diarrhea: Status: Chronic Assessment and plan: CT of the abdomen/pelvis, as read by our radiologist, suggests possible IBD or chronic colonic ischemia. Check LA, CRP, calprotectin. Consider surgical consult. Trial empiric cipro/flagyl. The patient has been noncompliant with a low carb diet while on ofev. I have again reinforced the need for a carb restriction and have consulted nutrition to do the same. C.diff negative. Remainder of stool studies to be collected. (2) Nausea & vomiting: Status: Acute Assessment and plan: Recurrent. Downgrade diet to clears. As above (3) Inflammatory bowel disease: Status: Suspected Assessment and plan: As above (4) Acute dehydration: Status: Resolved Assessment and plan: In setting of n/v and diarrhea. Cr is better than baseline. D/c IVF. Encourage PO fluids. (5) CKD (chronic kidney disease): Status: Chronic Assessment and plan: As above. Cr better than baselie. D/c IVF. (6) Type II diabetes mellitus, uncontrolled: Status: Chronic Assessment and plan: Continue basal bolus insulin, SSi. Qualifiers: Glycemic state: with hyperglycemia Qualified Code(s): E11.65 - Type 2 diabetes mellitus with hyperglycemia (7) Cognitive impairment: Status: Chronic Assessment and plan: The patient requires repetitive reinforcement of what a low carb diet is. Nutrition has been consulted.. (8) CHF (congestive heart failure): Status: Chronic Assessment and plan: Chronic, diastolic as well as a mild R-sided component/pulmonary hypertension. IVF d/c'ed, but would continue to hold diuretics. (9) Pulmonary fibrosis: Status: Chronic Assessment and plan: Holding ofev again today due to GI sx. (10) DVT prophylaxis: Status: Acute Assessment and plan: SC heparin (11) Discharge planning issues: Status: Acute Assessment and plan: Full code PT consulted. Palliative care patient. Subjective Subjective Interval history since last seen: Ms Pina feels nauseated and states she vomited after lunch. She reports dif fuse abdominal discomfort. She denies dizziness, chest pain, shortness of breath. She tested negative for C.Diff. Exam Narrative Exam Narrative: General: Pleasant elderly female, A&Ox3, Resting in bed, looks like she is not feeling well HEENT: EOMI, MMM Heart: RRR, no m/r/g Lungs: crackles at B bases Abdomen: soft, diffusely tender, but especially so in epigastrium, nondistended Extremities: no edema BLEs Objective Last Vital Signs Temp 37.4 C 05/08/22 11:15 Pulse 70 05/08/22 11:15 Resp 18 05/08/22 11:15 BP 107/44 L 05/08/22 11:15 Pulse Ox 95 05/08/22 11:15 Laboratory Results - last 24 hr 05/07/22 05/08/22 05/08/22 20:35 06:05 06:05 WBC 13.03 H RBC 3.44 L Hgb 11.2 Hct 33.8 L MCV 98 H MCH 32.6 MCHC 33.1 RDW 14.0 Plt Count 330 MPV 9.8 Immature Gran % 0.5 Neutrophils % 67.3 Lymphocytes % 19.4 Monocytes % 7.6 Eosinophils % 4.7 Basophils % 0.5 Nucleated RBC % 0.0 Absolute Neutrophils 8.77 H Absolute Lymphocytes 2.53 Absolute Monocytes 0.99 H Absolute Eosinophils 0.61 Absolute Basophils 0.07 Sodium 140 Potassium 4.4 Chloride 104 Carbon Dioxide 26.3 Anion Gap 9.7 BUN 22 H Creatinine 1.2 H Estimated GFR/1.73 m2 44.41 Glucose 169 H Calcium 9.4 Magnesium 1.8 Stl C.difficile Tox PCR Negative Add-On Test Request 05/08/22 Unknown WBC RBC Hgb Hct MCV MCH MCHC RDW Plt Count MPV Immature Gran % Neutrophils % Lymphocytes % Monocytes % Eosinophils % Basophils % Nucleated RBC % Absolute Neutrophils Absolute Lymphocytes Absolute Monocytes Absolute Eosinophils Absolute Basophils Sodium Potassium Chloride Carbon Dioxide Anion Gap BUN Creatinine Estimated GFR/1.73 m2 Glucose Calcium Magnesium Stl C.difficile Tox PCR Add-On Test Request DONE Objective Narrative Objective Narrative: CT abdomen final read: 1. The appearance of the terminal ileum, ascending-right colon and proximal transverse colon appears fatty infiltration circumferential of the wall.? Suspect sequelae of chronic inflammatory disease or possible chronic ischemia. 2. Extensive fibrotic pulmonary changes in the visualized lung bases again noted. 3. Gallbladder surgically absent.? Biliary tree not dilated.? Atrophic pancreas.
[2022-05-08 15:48] LABS: C-Reactive Protein 1.22 mg/dL (0.0-0.3)
[2022-05-08] MEDS: metroNIDAZOLE 500 MG/100 ML BAG 100 MG IVPB ×2 (16:26→23:58)
[2022-05-08] MEDS: CIPROFLOXACIN 400 MG/200 ML BAG 200 MG IVPB (16:26)
[2022-05-08] MEDS: Atorvastatin 40 MG TAB 80 MG PO (20:12)
[2022-05-08 20:16] VITALS: BP 108/68; PULSE 68; RESP 16; TEMP 36.8; O2SAT 96
[2022-05-08 20:42] VITALS: RESP 8
[2022-05-09] VITALS (10 sets, daily range): BP systolic 105–121; BP diastolic 50–72; PULSE 60–77; RESP 1–19; TEMP 36.5–36.8; O2SAT 90–96
[2022-05-09] MEDS: Normal Saline Flush 10 ML SYR IVP ×4 (03:33→15:53)
[2022-05-09] MEDS: Pantoprazole 40 MG VIAL IVP ×2 (03:33→15:53)
[2022-05-09] MEDS: CIPROFLOXACIN 400 MG/200 ML BAG 200 MG IVPB ×2 (03:33→15:54)
[2022-05-09] MEDS: Heparin 5,000 UNITS/ML VIAL 5000 UNITS SC ×3 (06:03→21:27)
[2022-05-09 06:47] LABS: Abs Immature Grans 0.03 10^3/uL (0.0-0.06); Absolute Basophil Count 0.05 10^3/uL (0.0-0.2); Absolute Lymphocyte Count 1.58 10^3/uL (1.2-3.4); Absolute Monocyte Count 0.58 10^3/uL (0.1-0.8); Absolute Neutrophil Count 6.44 10^3/uL (1.2-6.7); Basophils % 0.5; Eosinophils % 7.5; HCT 32.4 % (36.0-46.0); HGB 10.4 g/dL (11.2-15.7); Immature Grans % 0.3; Lymphocytes % 16.8; MCH 32.4 pg (27.0-33.0); MCHC 32.1 % (32.0-36.0); MCV 101 fL (80-95); MPV 9.4 fL (8.0-11.0); Monocytes % 6.2; Neutrophils % 68.7; Platelet Count 285 10^3/uL (130-400); RBC 3.21 10^6/uL (3.93-5.22); RDW-SD 52.1 fL; WBC 9.38 10^3/uL (4.4-10.8)
[2022-05-09 06:58] LABS: Anion Gap 6.3 mmol/L (3-11); BUN 17 mg/dL (7-18); CO2 28.7 mmol/L (21.0-32.0); CREATININE 1.3 mg/dL (0.55-1.02); Calcium 9.3 mg/dL (8.5-10.1); Chloride 106 mmol/L (98-107); Estimated GFR 40.49 (mL/min/1.73m2); Glucose 181 mg/dL (74-106); Magnesium 1.7 mg/dL (1.8-2.4); Potassium 4.1 mmol/L (3.5-5.1); Sodium 141 mmol/L (136-145)
[2022-05-09] MEDS: MAGNESIUM SULFATE 2 GM/50 ML BAG IVPB (07:38)
[2022-05-09] MEDS: Midodrine 2.5 MG TAB 10 MG PO ×3 (07:38→21:26)
[2022-05-09] MEDS: Escitalopram 20 MG TAB PO (07:38)
[2022-05-09] MEDS: Metoprolol 12.5 MG TAB PO ×2 (07:38→21:26)
[2022-05-09] MEDS: metroNIDAZOLE 500 MG/100 ML BAG 100 MG IVPB ×2 (07:39→15:53)
[2022-05-09] MEDS: Ondansetron 4 MG/2 ML VIAL IVP (07:42)
[2022-05-09] MEDS: Acetaminophen 325 MG TAB 650 MG PO ×2 (08:01→13:59)
[2022-05-09] MEDS: Cyclobenzaprine 10 MG TAB 5 MG PO (08:01)
[2022-05-09] MEDS: Albuterol/Ipratropium 3 ML UPD VIAL UPD ×3 (08:16→21:26)
[2022-05-09] MEDS: Insulin Aspart 300 UNITS/3 ML PEN SC ×4 (08:54→21:26)
--- NOTE | 2022-05-09 10:42 | OTIE_ITS ---
Occupational Therapy Notes Inpatient Occupational Therapy Evaluation Date: 05/09/22 Referring Doctor:Dr. Dyer OT Orders: Non Urgent Precautions: Fall, standard, Full PATIENT PROFILE/ADMITTING DIAGNOSIS: Pt is a 71 year old female who was admitted through the ED with the following dx of inflammatory bowel disease, DVT, CHF,chronic vomiting, diarrhea, dehydration, CKD, regurgitation of food, renal insufficiency, symptomatic anemia. Past Medical History: All Active Problems? LLQ pain (Acute) Atrial fibrillation with tachycardic ventricular rate (Acute) Anemia (Chronic) Acute dehydration (Acute) Pre-syncope (Acute) Shoulder fracture, left (Acute) Immunoglobulin deficiency (Acute) Chronic pulmonary aspiration (Acute) Anemia (Chronic) Grief (Chronic) brother Novow-level of literacy (Chronic) Palliative care patient (Acute) Orthostatic hypotension (Acute) Acute congestive heart failure (Acute) NSTEMI (non-ST elevated myocardial infarction) (Acute) Shortness of breath (Acute) Syncope (Chronic) Ribs, multiple fractures (Acute) IDDM (insulin dependent diabetes mellitus) (Chronic) Hiatal hernia (Chronic) Acute on chronic congestive heart failure with right ventricular diastolic dysfunction (Acute) Pulmonary fibrosis (Chronic) Renal insufficiency (Chronic) Functional encopresis (Chronic) Palliative care patient (Chronic) Pulmonary hypertension (Chronic) Chronic respiratory failure with hypoxia (Chronic) Advance directive on file (Acute) Internal derangement of right knee (Chronic) Back pain (Chronic) Asthma (Chronic) Osteoporosis (Chronic 03/16/18) Neck pain (Chronic 03/16/18) Migraine (Chronic 04/03/14) Long-term use of high-risk medication (Chronic 03/16/18) Interstitial lung disease (Acute 03/16/18) Pulm: JedlovskyGastroesophageal reflux disease without esophagitis (Chronic 03/16/18) Essential hypertension (Chronic 07/17/13) Edema (Chronic 03/16/18) Dyspnea (Chronic 03/16/18) Depressive disorder (Chronic) Cognitive impairment (Chronic 03/16/18) Mild, w/Memory Loss Anxiety (Chronic 03/16/18) Umbilical hernia (Chronic) Type II diabetes mellitus, uncontrolled (Chronic) Total urinary incontinence (Chronic) Shoulder pain (Chronic) left- surgery Post herpetic neuralgia (Chronic 03/16/18) Peripheral neuralgia (Chronic) Medical History Abdominal pain Acute gastroenteritis (03/16/18) Acute kidney injury (nontraumatic) Acute pneumonitis SYD (acute kidney injury) Anosognosia Asthma Chest wall pain COPD (chronic obstructive pulmonary disease) COVID-19 ruled out by laboratory testing Dehydration Discharge planning issues Discharge planning issues DKA (diabetic ketoacidoses) DKA (diabetic ketoacidoses) DKA (diabetic ketoacidosis) DVT prophylaxis DVT prophylaxis Encounter to establish care Fracture of humerus, proximal, left, closed (05/02/21) History of shingles (03/16/18) Hyperlipemia Inflammatory disorder of digestive tract Insulin dependent diabetes mellitus Metabolic acidosis with normal anion gap and bicarbonate losses Nausea & vomiting 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 Appendectomy Arthroscopy, Shoulder leftBilateral salpingectomy with oophorectomy section Cholecystectomy Age 20. of section Ligation of fallopian tube Thoracoscopic (R)Lung Bx (02/12/18) Social History/Home Situation: Pt previously lived with her grandson in an apartment in [facility]. She was (I) with all ADLs/IADLs at her baseline level of function. She has a tub shower and utilizes a shower bench. A neighbor helps with her metal spraying machine operator as she is unable to do this on her own. She gets food from meals on wheels. She notes that she has been performing her grocery shopping with her brother with whom she shares a car with and can drive at times, in the grocery store she utilizes a electric scooter. She states that she gets rides from [facility] for doctors appointments if her brother is not available. She has a grandson who does live with her again now. She reports that her neighbors and her grandson take care of her and (A) her with all of her ADLs. SUBJECTIVE:? Pt was sitting in bed when OT arrived, she is agreeable to OT consult. OBJECTIVE: General Observation: Pleasant and agreeable, IV in (R) UE, holding (L) elbow at 90* Mental Status: A& Ox3 Pain: pt states she is not in pain at this time. ROM: RUE AROM WFL L UE NT STRENGTH: RUE 4+/5 throughout LUE NT FUNCTIONAL MOBILITY/ADLS: BATHING sitting in chair with max (A) Set up, (I) Face, mod (A) (B) UE and abdomen, max (A) back and max (A) (B) LE DRESSING Education and training provided to pt on UE dressing including her shirt and sling with mod vc throughout. OT educated pt on holding position of arm while changing her shirt and maintaining position while doing so. GROOMING (I) with brushing hair seated in bed. BALANCE:? Static sitting Normal Dynamic Sitting Normal SPECIAL TESTS: Daily Activity Limitations Standardized Measure [facility] ? AM -PAC ? ?6 clicks? Daily Activity Inpatient Short Form: Raw score: 21 ? Standardized score: 44.27? CMS score: 32.79% ? INFORMED CONSENT/EDUCATION: Pt instructed in purpose of OT Consult and plan of care. ASSESSMENT: ? Patient is a 71-year-old female referred to occupational therapy services with diagnosis of inflammatory bowel disease. DVT, CHF< chronic vomiting, diarrhea, dehydration, CKD, regurgitation of food, renal insufficiency, symptomatic anemia. Pt was seen for initial evaluation today and she notes that her (L) UE is very sore. She has decreased functional (I), increased pain and decreased functional activity tolerance. Patient is assessed as a? Moderate 56588 complexity based on the following: History: see above Examination: see functional limitations as noted above Presentation: evolving Decision Making: [facility] 21 GOALS 1. Sitting in chair (I) with UE bathing 2. On toilet min (A) 3. (I) with brushing teeth standing at sink 4. (I) with LE dressing PLAN OF CARE/TREATMENT PLAN: OT will plan to see pt 1x per day, 5 days per week. DISCHARGE RECOMMENDATIONS SNF vs. home when medically cleared per MD. TREATMENT TIME/MINUTES/CODES [id number], [id number], 25 minutes (07:55) Trinidad Philip OTR/[facility]
--- NOTE | 2022-05-09 12:46 | PT.INTREAT ---
Date of service: 05/09/22 Time of Service: 11:57 PT Notes Visit Reasons: Dehydration,Acute Gastroenteritis Inpatient Physical Therapy Treatment Note [facility] Date: 05/09/2022 PRECAUTIONS: Activity as tolerated SUBJECTIVE: Elly is pleasant and agreeable to participating in PT. She reports that she continues to have diarrhea, which limits the distance she is comfortable walking. She indicates that she has been using a cane or no device at home. She reports that her grandson comes to check on her daily. OBJECTIVE: PAIN: Patient c/o L shoulder pain from previous surgery (chronic) BED MOBILITY/TRANSFERS Supine-sit: I with HOB flat Sit-stand: S - I Stand-sit: S - I Bed-Chair: I Chair-bed: I GAIT Assistive Device: No AD/IV pole in a.m.; SPC in p.m. Weight bearing: Full Assist: S in a.m.; I in p.m. Distance: 15' x2 in both a.m. and p.m. Deviation: None TOILETING: Patient toileted with assist for pericare only in both a.m. and p.m. ASSESSMENT: Patient tolerated session well without complaint. She demonstrates steady gait and pacing without assistive device, although with IV pole for balance. Following discussion with nursing, patient cleared to transfer and ambulate independently with SPC when not attached to IV pole. PLAN: Continue with global strengthening and general conditioning for continued progression toward baseline level of function. TREATMENT CODE/TIME: Session 1: 13 minutes; [id number] (11:57) Session 2: 15 minutes; [id number] (15:40)
--- NOTE | 2022-05-09 15:47 | PDOC.CMPRO ---
- If Service Date Differs Date of service: 05/09/22 Time of Service: 15:47 Care Management Progress Note S/O: Elly continues to be closely monitored and treated, she is working well with PT/OT; anticipate orders for home health upon discharge. CM discussed recent ED visits and Elly's presentation with her guardian/grandson, Jorge Luis. Jorge Luis shared frustrations central to ongoing gastro issues and reported Elly is followed by Kelli, Gastrologist at [facility], he requested this underwriter relay this information to Dr. Dyer. CM reviewed with Dr. Dyer and requested contact with guardian to review plan of care. SIVA also reviewed details with JULIO Rehman of Palliative who reported she will reach out to Jorge Luis and Elly by tomorrow. Elly is also being followed by pulmonology, nutrition and anticipate surgical consult if indicated. CM updated chart to add guardianship status and Palliative patient as Elly is usually followed by Dr. Vaughn. CM continues to follow. Per MD: Elly has been noncompliant with a low carb diet while on OFEV need for a carb restriction reinforced the nutrition consulted to do the same. A: 71 year old female admitted to [facility] 05/07/22 for dehydration, acute gastroenteritis P: Anticipate Elly will return home when ready per MD. If recommended, home health services will likely be ordered. Elly will transport via [facility], CM continues to follow. - Guardianship if Applicable Guardianship: Other (son, Jorge Luis Zepeda )
--- NOTE | 2022-05-09 16:57 | W.PM.PROGNOT ---
Date of Service Date of service: 05/09/22 Time of Service: 16:57 Assessment and Plan Assessment and plan (1) Chronic diarrhea: Status: Chronic Assessment and plan: CT of the abdomen/pelvis, as read by our radiologist, suggests possible IBD or chronic colonic ischemia. WBC better today - continue cipro/flagyl (day 2). Will obtain celiac panel. As diarrhea is now better, will reintroduce ofev. The patient should have an outpatient colonoscopy with [facility]. The patient has been noncompliant with a low carb diet while on ofev. I have again reinforced the need for a carb restriction and have consulted nutrition to do the same. C.diff negative. Remainder of stool studies to be collected. (2) Nausea & vomiting: Status: Acute Assessment and plan: Recurrent. Advance diet. Will make NPO after midnight for a gastric emptying study. Need as outpatient EGD. As above (3) Inflammatory bowel disease: Status: Suspected Assessment and plan: As above (4) Acute dehydration: Status: Resolved Assessment and plan: In setting of n/v and diarrhea. Cr is better than baseline. Off of IVF. Encourage PO fluids. (5) CKD (chronic kidney disease): Status: Chronic Assessment and plan: As above. Cr better than baseline. (6) Type II diabetes mellitus, uncontrolled: Status: Chronic Assessment and plan: Continue basal bolus insulin, SSi. Qualifiers: Glycemic state: with hyperglycemia Qualified Code(s): E11.65 - Type 2 diabetes mellitus with hyperglycemia (7) Cognitive impairment: Status: Chronic Assessment and plan: The patient requires repetitive reinforcement of what a low carb diet is. Nutrition has been consulted.. (8) CHF (congestive heart failure): Status: Chronic Assessment and plan: Chronic, diastolic as well as a mild R-sided component/pulmonary hypertension. IVF d/c'ed, but would continue to hold diuretics. (9) Pulmonary fibrosis: Status: Chronic Assessment and plan: Resume ofev at outpatient dose (10) DVT prophylaxis: Status: Acute Assessment and plan: SC heparin (11) Discharge planning issues: Status: Acute Assessment and plan: Full code PT consulted. Palliative care patient. Subjective Subjective Interval history since last seen: Ms Pina feels better today. She is still a little bit nauseated. She denies chest pain, shortness of breath, abdominal pain. Diarrhea has resolved. She is seen by GI at [facility]: her guardian requests that, if possible, we do some of the workup that GI had recommended (celiac panel, TSH, gastric emptying study. The patient should also have EGD/colonoscopy, but can have them as outpatient). Exam Narrative Exam Narrative: General: Pleasant elderly female, A&Ox3, Resting in bed, looks tired, overall better than yesterday. HEENT: EOMI, MMM Heart: RRR, no m/r/g Lungs: crackles at B bases Abdomen: soft, diffusely tender, but especially so in epigastrium, nondistended Extremities: no edema BLEs Objective Last Vital Signs Temp 36.5 C 05/09/22 15:55 Pulse 68 05/09/22 15:55 Resp 18 05/09/22 15:55 BP 105/50 L 05/09/22 15:55 Pulse Ox 94 05/09/22 15:55 Laboratory Results - last 24 hr 05/09/22 05/09/22 06:33 06:33 WBC 9.38 RBC 3.21 L Hgb 10.4 L Hct 32.4 L MCV 101 H MCH 32.4 MCHC 32.1 RDW 14.0 Plt Count 285 MPV 9.4 Immature Gran % 0.3 Neutrophils % 68.7 Lymphocytes % 16.8 Monocytes % 6.2 Eosinophils % 7.5 Basophils % 0.5 Nucleated RBC % 0.0 Absolute Neutrophils 6.44 Absolute Lymphocytes 1.58 Absolute Monocytes 0.58 Absolute Eosinophils 0.70 Absolute Basophils 0.05 Sodium 141 Potassium 4.1 Chloride 106 Carbon Dioxide 28.7 Anion Gap 6.3 BUN 17 Creatinine 1.3 H Estimated GFR/1.73 m2 40.49 Glucose 181 H Calcium 9.3 Magnesium 1.7 L
[2022-05-09] MEDS: Atorvastatin 40 MG TAB 80 MG PO (21:26)
[2022-05-10] VITALS (13 sets, daily range): BP systolic 105–123; BP diastolic 47–74; PULSE 61–80; RESP 4–24; TEMP 36.5–37.8; O2SAT 82–95
[2022-05-10] MEDS: metroNIDAZOLE 500 MG/100 ML BAG 100 MG IVPB ×4 (01:15→23:30)
[2022-05-10] MEDS: Pantoprazole 40 MG VIAL IVP ×2 (03:32→15:55)
[2022-05-10] MEDS: CIPROFLOXACIN 400 MG/200 ML BAG 200 MG IVPB ×2 (03:32→15:55)
[2022-05-10] MEDS: Heparin 5,000 UNITS/ML VIAL 5000 UNITS SC ×3 (05:39→21:25)
[2022-05-10 07:16] LABS: Abs Immature Grans 0.04 10^3/uL (0.0-0.06); Absolute Basophil Count 0.06 10^3/uL (0.0-0.2); Absolute Eosinophil Count 0.63 10^3/uL (0.0-0.7); Absolute Lymphocyte Count 1.25 10^3/uL (1.2-3.4); Absolute Monocyte Count 0.69 10^3/uL (0.1-0.8); Absolute Neutrophil Count 7.88 10^3/uL (1.2-6.7); Basophils % 0.6; HCT 30.8 % (36.0-46.0); HGB 10.3 g/dL (11.2-15.7); Immature Grans % 0.4; Lymphocytes % 11.8; MCH 33.2 pg (27.0-33.0); MCHC 33.4 % (32.0-36.0); MCV 99 fL (80-95); MPV 10.1 fL (8.0-11.0); Monocytes % 6.5; Neutrophils % 74.7; Platelet Count 303 10^3/uL (130-400); RDW 14.1 % (11.7-14.6); RDW-SD 51.4 fL; WBC 10.55 10^3/uL (4.4-10.8)
[2022-05-10 07:30] LABS: BUN 14 mg/dL (7-18); CREATININE 1.3 mg/dL (0.55-1.02); Calcium 8.7 mg/dL (8.5-10.1); Chloride 103 mmol/L (98-107); Estimated GFR 40.49 (mL/min/1.73m2); Glucose 239 mg/dL (74-106); Magnesium 1.5 mg/dL (1.8-2.4); Potassium 3.6 mmol/L (3.5-5.1); Sodium 140 mmol/L (136-145)
[2022-05-10] MEDS: Albuterol/Ipratropium 3 ML UPD VIAL UPD ×3 (08:14→21:24)
[2022-05-10] MEDS: Normal Saline Flush 10 ML SYR IVP ×3 (08:15→23:30)
[2022-05-10] MEDS: Metoprolol 12.5 MG TAB PO ×2 (08:35→21:25)
[2022-05-10] MEDS: MAGNESIUM SULFATE 4 GM/100 ML BAG IVPB (08:58)
[2022-05-10] MEDS: Magnesium Oxide 400 MG TAB 800 MG PO ×2 (09:01→21:24)
[2022-05-10] MEDS: Potassium Chloride 20 MEQ TABCR PO ×2 (09:01→21:24)
--- NOTE | 2022-05-10 09:19 | PCNE_ITS ---
Date of service: 05/10/22 Time of Service: 10:00 History of Present Illness Narrative: Ms. Sanabria is a 71 y/o F est PC pt currently inpatient at [facility] 2/2 N/V/D and dehydration; PMHx sig for CHF, chronic N/V/D, CKD, A fib, h/o NSTEMI, DM, pulmonary fibrosis, pulmonary HTN, MCI Reports currently nauseous, waiting Zofran. Reports Zofran effective with nausea previously. Chronic intermittent nausea vomiting diarrhea, with periods of dehydration. Patient unsure of what causes symptoms, is supposed to have a study done down throat today. Reports unaware of food restrictions, is unsure of what is a carb and not a carb. Reports left upper extremity pain in shoulder with history of operation. Reports a fall around 1 year ago while using scooter and landed on left shoulder, required surgical correction. Did participate in PT however this was limited due to diarrhea symptoms returning, would be interested in engaging in physical therapy outpatient. Reports last fall was last week. Continues to have increased fatigue, insomnia. Reports lives at home alone, with excellent care from neighbors. Neighbor Zoila participates in all instrumental ADLs including: Transportation, meal preparation with Meals on Wheels, cleaning, laundry. Zoila will be away next week and neighbors Cheyenne and Tami plan to assist her as needed. Reports independent with ADLs, use of cane with ambulation, occasional assistance with dressing and bathing. Reports grandson Jorge Luis is guardian, makes all medical decisions and a trusted ally in her healthcare. Would like to remain a full code at this time with goal of staying alive, even if this means being hooked up to machines until daughter from [facility] can arrive. No feeding tube, limited IV fluids, limi ольга antibiotics. Reports daughter coming for visit soon, despite this visit in future would want to be kept alive for her daughter to say goodbye. Reports also has granddaughter Sumi involved in care. Her mother and father lived to 78 and 81, see self living that long as well. from staff: rescheduled gastric emptying and colonoscopy to be performed at [facility] in collaboration with [facility], scheduled for tomorrow. Patient has limited understanding of own health status. Oxygen via nasal cannula ranging from 2 to 6 L. Assessment and Plan Assessment and plan (1) Palliative care patient: Status: Acute Assessment and plan: continue to follow outpatient need for COLST review w/guardian Jorge Luis, will call to review and update PRN pt has had several presentations to ED and inpatient, is well known to CM; h/o SNF placement (2) Inflammatory bowel disease: Status: Suspected Assessment and plan: CT of abd/pelvis suggest possible IBD or chronic colonic ischemia recommended outpatient colonoscopy w/[facility] (3) Chronic diarrhea: Status: Chronic (4) Cognitive impairment: Status: Chronic Assessment and plan: guardian established; unable to follow low carb diet (5) Dehydration: Assessment and plan: r/t V/D, resumed PO fluids w/control of N/V, resume IVF PRN (6) Shoulder pain: Assessment and plan: h/o shoulder fracture; pt using ice intermittent, repositioning PT following, continue PT outpatient (7) Nausea & vomiting: Status: Acute Assessment and plan: gastric emptying study scheduled for Wed recommend outpatient EGD (8) Pulmonary fibrosis: Status: Chronic Assessment and plan: restart Ofev today Review of Systems Narrative: as per HPI PFSH All Active Problems Discharge planning issues (Acute) DVT prophylaxis (Acute) CHF (congestive heart failure) (Chronic) Chronic vomiting (Chronic) Chronic diarrhea (Chronic) Nausea & vomiting (Acute) CKD (chronic kidney disease) (Chronic) Regurgitation of food (Acute) Renal insufficiency (Chronic) Symptomatic anemia (Acute) New onset a-fib (Acute) Anemia (Chronic) Immunoglobulin deficiency (Acute) Chronic pulmonary aspiration (Acute) Grief (Chronic) brother Nov 2020 Low-level of literacy (Chronic) Palliative care patient (Acute) Orthostatic hypotension (Acute) Acute congestive heart failure (Acute) NSTEMI (non-ST elevated myocardial infarction) (Acute) Shortness of breath (Acute) Syncope (Chronic) IDDM (insulin dependent diabetes mellitus) (Chronic) Hiatal hernia (Chronic) Pulmonary fibrosis (Chronic) Renal insufficiency (Chronic) Functional encopresis (Chronic) Palliative care patient (Chronic) Pulmonary hypertension (Chronic) Chronic respiratory failure with hypoxia (Chronic) Advance directive on file (Acute) Long-term use of high-risk medication (Chronic 03/16/18) Interstitial lung disease (Acute 03/16/18) Pulm: Jedlgianlucay Gastroesophageal reflux disease without esophagitis (Chronic 03/16/18) Dyspnea (Chronic 03/16/18) Cognitive impairment (Chronic 03/16/18) Mild, w/Memory Loss Umbilical hernia (Chronic) Type II diabetes mellitus, uncontrolled (Chronic) Total urinary incontinence (Chronic) Medical History Abdominal pain Acute gastroenteritis (03/16/18) Acute kidney injury (nontraumatic) Acute pneumonitis SYD (acute kidney injury) Anosognosia Anxiety (03/16/18) Asthma Back pain Chest wall pain COPD (chronic obstructive pulmonary disease) Cough Cubital tunnel syndrome (03/16/18) Dehydration Depressive disorder Discharge planning issues DKA (diabetic ketoacidosis) DVT prophylaxis Edema (03/16/18) Encounter to establish care Essential hypertension (07/17/13) Fracture of humerus, proximal, left, closed (05/02/21) History of shingles (03/16/18) Hyperlipemia Inflammatory disorder of digestive tract Insulin dependent diabetes mellitus Internal derangement of right knee Medication monitoring encounter Metabolic acidosis with normal anion gap and bicarbonate losses Migraine (04/03/14) Nausea & vomiting Neck pain (03/16/18) 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 History of section Ligation of fallopian tube Thoracoscopic (R)Lung Bx (02/12/18) Family History Mother , aged 81 from dementia, per Elly Diabetes Essential hypertension CHF (congestive heart failure) Heart disease CHF/heart failure Dementia Father , aged 80 Diabetes Essential hypertension CAD (coronary artery disease) Heart disease [place] Hyperlipidemia Stroke Sister , aged 54 Diabetes Personal history of malignant neoplasm Lung Asthma Lung cancer Brother , of mesithelioma aged 62 Diabetes Essential hypertension Personal history of malignant neoplasm Lung, Prostate Hyperlipidemia Asthma Mesothelioma Brother , of PE following knee surgery age 69 Pulmonary embolus with infarction Daughter No problems noted. Son No problems noted. Social History Smoking/Tobacco Use Status: Never Smoking risk assessment performed?: Yes Alcohol Intake: never Details: monthly or less Drug use: Never Substance use type: does not use Adopted: No Caregiver/Support person: No Foster care: No Household members: none Housing: apartment Number of Children: 2 number of grandchildren: 5 Communication Needs: Hard of Hearing and Corrective Lenses Education Level: middle school Do you need help understanding health information?: Always current occupation: retired [employer] Pets and animals: Yes Pets and animals: cat(s) Sexually active: No Do you think of yourself as: straight/heterosexual Current gender identity: female What is your relationship status?: How often do you talk on the phone with friends or family?: three or more times per week How often do you get together with friends or relatives?: three or more times per week How often do you attend cheondoism or holiness services?: 1-3 times per year Do you belong to any clubs or organized social groups?: no Panel score (0-1 are the most socially isolated patients): 1 What type of physical activity do you participate in: none and sedentary lifestyle Duration: < 15 minutes/day Frequency: does not exercise Bibi/Episcopalian: Quaker Special bibi needs: No Agree to transfusion: Yes Seatbelt use: sometimes Helmet use: No Drive intox or ride w/intox lumber stacker driver: No Water heater temp set <120 deg: Yes Working smoke detector in home: Yes Fire extinguisher in home: Yes Carbon monox detector in home: Yes Do you feel safe at home: Yes Do you feel safe in your relationship?: Yes Victim of physical abuse: No Victim of emotional abuse: No Victim of sexual abuse: No Would you like helpful sources: No Additional Social history: Recently in the [facility] x 2 mos. Didn't feel she needed to be there. She reports was supposed to be a 2 week stay. She said she did all her own care. She says the staff is stretched thin. She can take care of herself at home just fine. She says her family is more worried about her than they need to be. Exam Narrative Exam Narrative: lying in bed throughout exam Const General: cooperative Orientation: alert, awake and oriented x3 HENMT Head: normal to inspection, normocephalic and atraumatic Ears: hearing grossly normal bilaterally Resp Effort & Inspection: normal respiratory effort, able to speak in complete sentences, no audible wheezes and no cough Skin General skin exam: no rashes or lesions noted Psych Speech and Movement: speech clear Mood: congruent mood Attitude: cooperative Thought Process: normal Insight: limited Judgment: limited Results Last Vital Signs Temp 98.1 F 05/10/22 15:24 Pulse 71 05/10/22 15:24 Resp 20 05/10/22 15:24 BP 112/47 L 05/10/22 15:24 Pulse Ox 94 05/10/22 15:24 Labs Result diagrams: 05/10/22 06:13 05/10/22 06:13 Labs: Laboratory Results - last 24 hr 05/10/22 05/10/22 06:13 06:13 WBC 10.55 RBC 3.10 L Hgb 10.3 L Hct 30.8 L MCV 99 H MCH 33.2 H MCHC 33.4 RDW 14.1 Plt Count 303 MPV 10.1 Immature Gran % 0.4 Neutrophils % 74.7 Lymphocytes % 11.8 Monocytes % 6.5 Eosinophils % 6.0 Basophils % 0.6 Nucleated RBC % 0.0 Absolute Neutrophils 7.88 H Absolute Lymphocytes 1.25 Absolute Monocytes 0.69 Absolute Eosinophils 0.63 Absolute Basophils 0.06 Sodium 140 Potassium 3.6 Chloride 103 Carbon Dioxide 28.0 Anion Gap 9.0 BUN 14 Creatinine 1.3 H Estimated GFR/1.73 m2 40.49 Glucose 239 H Calcium 8.7 Magnesium 1.5 L
--- NOTE | 2022-05-10 10:04 | OT.INNT ---
Occupational Therapy Notes 05/10/22 OT went in to see pt who reports that her O2 levels are low and that she is not interested in performing her ADLs at this time. She states that she would like to hold for today and is frustrated that she has a procedure today and is tired. Trinidad Philip, OTR/L
[2022-05-10] MEDS: Ondansetron 4 MG/2 ML VIAL IVP (10:27)
--- NOTE | 2022-05-10 11:46 | PDOC.CMPRO ---
- If Service Date Differs Date of service: 05/10/22 Time of Service: 11:46 Care Management Progress Note S/O: Elly continues to be closely monitored and treated, she is working well with PT/OT; anticipate orders for home health upon discharge. Elly and Jorge Luis are both expected to discuss goals of care with Sherie of Palliative today. CM discussed recent ED visits and Elly's presentation with her guardian/grandson, Jorge Luis. Jorge Luis shared frustrations central to ongoing gastro issues and reported Elly is followed by Kelli, Gastrologist at [facility], he requested this check writer salesperson relay this information to Dr. Dyer. CM reviewed with Dr. Dyer and requested contact with guardian to review plan of care. CM also reviewed details with Sherie, INSTALLATION AND SERVICE TECHNICIAN of Palliative who reported she will reach out to Jorge Luis and Elly by tomorrow. Elly is also being followed by pulmonology, nutrition and anticipate surgical consult if indicated. CM updated chart to add guardianship status and Palliative patient as Elly is usually followed by Dr. Vaughn. CM continues to follow. Per MD: Elly has been noncompliant with a low carb diet while on OFEV need for a carb restriction reinforced the nutrition consulted to do the same. A: 71 year old female admitted to [facility] 05/07/22 for dehydration, acute gastroenteritis P: Anticipate Elly will return home when ready per MD with new orders for [facility] RN/PT if recommended. Elly will transport via [facility], coordinated by SIVA. CM continues to follow. - Guardianship if Applicable Guardianship: Other (Grandson, Jorge Luis Zepeda )
[2022-05-10] MEDS: Insulin Aspart 300 UNITS/3 ML PEN SC ×3 (12:03→21:34)
[2022-05-10] MEDS: Mylanta Suspension 30 ML CUP PO (12:09)
[2022-05-10] MEDS: Midodrine 2.5 MG TAB 10 MG PO ×2 (14:13→21:26)
--- NOTE | 2022-05-10 14:19 | PT.INTREAT ---
Date of service: 05/10/22 Time of Service: 14:02 PT Notes Visit Reasons: Dehydration,Acute Gastroenteritis PT Inpatient Treatment Note Date: 05/10/2022 SUBJECTIVE: Elly reports that she has been sick today and not feeling well. She continues to report L shoulder pain. She reports that the pain in her shoulder began after she fell off of her scooter onto her left side. She reports that she has not told anyone besides a woman who comes to her home to help her occasionally. She expresses concern that she has damaged it. She also reports that although her ROM in her L shoulder has been limited since her rTSA procedure, it is significantly more limited since her fall. All information relayed to AMADOR Brian. OBJECTIVE: Manual therapy: With patient in supine perform gentle STM throughout L pectorals, delts and scapular musculature, to patient's tolerance. STM was limited due to discomfort throughout shoulder area. Complete AAROM to L GH joint, elbow and FA into shoulder flexion/extension, IR/ER, abduction/adduction, elbow flexion/extension and FA supination/pronation. Empty end feels in all planes with GH joint AAROM. End with ice pack to L shoulder area. Total Treatment Time: 13 minutes; [id number] x1 (14:02)
--- NOTE | 2022-05-10 14:25 | PGE_ITS ---
Date of Service Date of service: 05/10/22 Time of Service: 14:25 Assessment and Plan Assessment and plan (1) Chronic diarrhea: Status: Chronic Assessment and plan: CT of the abdomen/pelvis, as read by our radiologist, suggests possible IBD or chronic colonic ischemia. no diarrhea today. Ofev reintroduced today. will see if this is the culprit The patient should have an outpatient colonoscopy with [facility]. The patient has been noncompliant with a low carb diet while on ofev. C diff was negative but rest of stool pathogens is pending results continue short course of flagyl and cipro but if no pathogens on stool studies then consider dc of antibiotics. (2) Nausea & vomiting: Status: Acute Assessment and plan: Recurrent. Advance diet. Will make NPO after midnight tonight (Monday) for a gastric emptying study for Mon. Need as outpatient EGD. (and c-scope) As above (3) Inflammatory bowel disease: Status: Suspected Assessment and plan: As above (4) Acute dehydration: Status: Resolved Assessment and plan: In setting of n/v and diarrhea. Cr is better than baseline. Off of IVF. Encourage PO fluids. if vomiting conintues then resume iv fluids (5) CKD (chronic kidney disease): Status: Chronic Assessment and plan: As above. Cr better than baseline. (6) Type II diabetes mellitus, uncontrolled: Status: Chronic Assessment and plan: Continue basal bolus insulin, SSi. Qualifiers: Glycemic state: with hyperglycemia Qualified Code(s): E11.65 - Type 2 diabetes mellitus with hyperglycemia (7) Cognitive impairment: Status: Chronic Assessment and plan: The patient requires repetitive reinforcement of what a low carb diet is. Nutrition has been consulted.. (8) CHF (congestive heart failure): Status: Chronic Assessment and plan: Chronic, diastolic as well as a mild R-sided component/pulmonary hypertension. IVF d/c'ed, but would continue to hold diuretics. (9) Pulmonary fibrosis: Status: Chronic Assessment and plan: Resume ofev at outpatient dose (10) DVT prophylaxis: Status: Acute Assessment and plan: SC heparin (11) Discharge planning issues: Status: Acute Assessment and plan: Full code PT consulted. Palliative care patient. Subjective Subjective Interval history since last seen: Patient says that she is had recurrent vomiting today after eating lunch. She also says she still has diarrhea although her last bowel movement was last night. She is scheduled for a nuclear gastric emptying study for tomorrow morning. Depending on the results of this if this confirms diabetic gastroparesis then I think she may benefit from either erythromycin or Reglan. Her other issues includes her large hiatal hernia causing her chronic aspiration which is affecting her lungs. She remains on ciprofloxacin and metronidazole for colitis. I do not see any studies evaluating her for C. difficile. She does have studies pending for Campylobacter and Salmonella and Shigella although these were all done on April 26, 2022 and they were negative then but repeat studies were done on 05/07/2022 pending. Exam Narrative Exam Narrative: Elly is lying in bed w/ wet wash cloth over her forehead; she is alert/oriented Lungs: clear anteriorly Heart: RRR Abdomen: obese, nondistended, normal bowel sounds; no guarding Extremities: no cyanosis or edema; warm and non diaphoretic Objective Last Vital Signs Temp 37.8 C H 05/10/22 12:14 Pulse 80 05/10/22 12:14 Resp 20 05/10/22 12:14 BP 123/72 05/10/22 12:14 Pulse Ox 92 05/10/22 14:13 Laboratory Results - last 24 hr 05/10/22 05/10/22 06:13 06:13 WBC 10.55 RBC 3.10 L Hgb 10.3 L Hct 30.8 L MCV 99 H MCH 33.2 H MCHC 33.4 RDW 14.1 Plt Count 303 MPV 10.1 Immature Gran % 0.4 Neutrophils % 74.7 Lymphocytes % 11.8 Monocytes % 6.5 Eosinophils % 6.0 Basophils % 0.6 Nucleated RBC % 0.0 Absolute Neutrophils 7.88 H Absolute Lymphocytes 1.25 Absolute Monocytes 0.69 Absolute Eosinophils 0.63 Absolute Basophils 0.06 Sodium 140 Potassium 3.6 Chloride 103 Carbon Dioxide 28.0 Anion Gap 9.0 BUN 14 Creatinine 1.3 H Estimated GFR/1.73 m2 40.49 Glucose 239 H Calcium 8.7 Magnesium 1.5 L
--- NOTE | 2022-05-10 15:52 | CHAPLAIN ---
Elly and I recognized each other from when her brother, Brian, was a patient here. Elly said she's been feeling weak, having diarrhea and a temperature, but is beginning to feel better. I will continue to visit.
[2022-05-10] MEDS: Normal Saline 500 ML 30 ML IV (15:57)
[2022-05-10] MEDS: Acetaminophen 325 MG TAB 650 MG PO (17:00)
[2022-05-10] MEDS: Atorvastatin 40 MG TAB 80 MG PO (21:25)
[2022-05-11] MEDS: Normal Saline Flush 10 ML SYR IVP ×3 (04:23→11:59)
[2022-05-11] MEDS: Pantoprazole 40 MG VIAL IVP (04:23)
[2022-05-11] MEDS: CIPROFLOXACIN 400 MG/200 ML BAG 200 MG IVPB (04:23)
[2022-05-11 04:31] VITALS: BP 114/52; PULSE 71; RESP 16; TEMP 37.4; O2SAT 91
[2022-05-11] MEDS: Heparin 5,000 UNITS/ML VIAL 5000 UNITS SC ×3 (05:30→21:46)
[2022-05-11 07:52] LABS: Anion Gap 7.6 mmol/L (3-11); BUN 13 mg/dL (7-18); CO2 27.4 mmol/L (21.0-32.0); CREATININE 1.3 mg/dL (0.55-1.02); Calcium 8.7 mg/dL (8.5-10.1); Chloride 102 mmol/L (98-107); Estimated GFR 40.49 (mL/min/1.73m2); Glucose 310 mg/dL (74-106); Magnesium 1.9 mg/dL (1.8-2.4); Potassium 4.5 mmol/L (3.5-5.1); Sodium 137 mmol/L (136-145)
--- NOTE | 2022-05-11 08:00 | DI.NM_ITS ---
Exam(s) NM GASTRIC EMPTYING CLINICAL HISTORY: recurrent nasuea/vomiting. COMPARISON: [facility] GASTRIC EMPTYING from 11/17/2020 EXAMINATION: PO Dose: 1.0 mCi Sulfur colloid mixed with eggs. Eight ounces of water and 1 slice of bread over also administered. Images: Immediately and delayed images at 1 hour, 2 hours and 4 hours. FINDINGS: The total gastric emptying at 1 hour is calculated to be 84 %. At 2 hours, 91 percent empty. At 4 h ours 96 percent empty IMPRESSION: 1. Rapid gastric emptying. SNM guidelines: 40% or more gastric emptying at 90 minutes is considered normal. < 30% at 1 hour sig nifies abnormal rapid gastric emptying.
--- NOTE | 2022-05-11 09:05 | PDOC.CMPRO ---
- If Service Date Differs Date of service: 05/11/22 Time of Service: 09:05 Care Management Progress Note S/O: Elly was sitting up in bed when CM met with her. She was pleasant and engaged easily with CM. Elly stated that she is still not feeling well. She continues to have diarrhea and was embarrassed because she was incontinent when she went down for a test. During the conversation Elly coughed almost continuously. She had nasal O2 on at 5L but still dropped her oxygen saturation level to 83%. Her nurse came in and increased her O2 to 6L and her saturation level becky to 88%. Elly informed CM that she needs to be out of the hospital by Monday as her daughter from [place] is flying in Monday afternoon. She also has a pig roast to go to on Monday and a 51th birthday constitution party to attend. A: 71 year old female admitted to [facility] 05/07/22 for dehydration, acute gastroenteritis P: Anticipate Elly will return home when ready per MD with new orders for VNA RN/PT if recommended. Elly will transport via [facility], coordinated by [facility]. CM continues to follow. - Guardianship if Applicable Guardianship: Other (Grandson, Jorge Luis Zepeda )
--- NOTE | 2022-05-11 09:23 | OT.INNT ---
Occupational Therapy Notes 05/11/22 OT attempted to see pt who was not in her room and currently undergoing testing. OT will resume services tomorrow. Trinidad Philip, OTR/L
[2022-05-11] MEDS: Albuterol/Ipratropium 3 ML UPD VIAL UPD ×2 (11:08→20:36)
[2022-05-11 11:33] VITALS: BP 97/46; PULSE 93; RESP 24; TEMP 37.3; O2SAT 93
[2022-05-11 11:47] VITALS: O2SAT 95
[2022-05-11] MEDS: Insulin Aspart 300 UNITS/3 ML PEN SC ×3 (11:50→21:47)
[2022-05-11] MEDS: metroNIDAZOLE 500 MG/100 ML BAG 100 MG IVPB (11:57)
--- NOTE | 2022-05-11 13:59 | PT.INTREAT ---
PT Notes Visit Reasons: Dehydration,Acute Gastroenteritis Direct Treatment Time: [15] Total Treatment Time: [15] Treatment Units Time Duration Manual Therapy (46525) [1] [15] Subjective: Pt out of her room early this morning and spent her morning downstairs doing a procedure/ gastric emptying and was not available for therapy till after lunch. pt reports that she is very exhausted and would like to rest, pt reports pain on Left shoulder and agreed to participating with manual therapy to help with her pain. Objective: Manual therapy [id number] 15mins: Pt in supine gentle STM involving subclavius, pectorals, upper traps, scapular area to help with down regulation of upper quadrant followed by PROM/AAROM for L shoulder and L elbow with cryotherapy on anterior aspect of Left shoulder to conclude session. Total Treatment Time: 06911 15mins (14:02)
[2022-05-11] MEDS: Midodrine 2.5 MG TAB 10 MG PO ×2 (14:51→20:37)
[2022-05-11] MEDS: Hyaluronidase 150 UNITS VIAL 15 UNITS IJ (15:01)
[2022-05-11] MEDS: Escitalopram 20 MG TAB PO (15:21)
[2022-05-11 15:29] VITALS: BP 124/69; PULSE 80; RESP 18; TEMP 36.6; O2SAT 98
[2022-05-11] MEDS: Normal Saline 10 ML VIAL (15:31)
--- NOTE | 2022-05-11 17:09 | PGE_ITS ---
Date of Service Date of service: 05/11/22 Time of Service: 17:23 Assessment and Plan Assessment and plan (1) Chronic diarrhea: Status: Chronic Assessment and plan: CT of the abdomen/pelvis, as read by our radiologist, suggests possible IBD or chronic colonic ischemia. diarrhea continues. her Ofev was put on hold yesterday. I will keep this on hold to see if her diarrhea clears up. will add metamucil as her stools are watery. The patient should have an outpatient colonoscopy with [facility]. The patient has been noncompliant with a low carb diet while on ofev. C diff was negative but rest of stool pathogens is pending results (still pending as of 05/11) continue short course of flagyl and cipro but if no pathogens on stool studies then consider dc of antibiotics. her iv became infiltrated therefore I have switched her to oral cipro and flagyl. (2) Nausea & vomiting: Status: Acute Assessment and plan: I have ordered barium swallow for tomorrow. I will advance her diet for supper to regular CHO/CARDIAC diet. I have added reglan 10 mg AC/HS to see if this h elps. she needs O.P. EGD done at [facility] (3) Inflammatory bowel disease: Status: Suspected Assessment and plan: As above; IBD markers are still pending (4) CKD (chronic kidney disease): Status: Chronic Assessment and plan: As above. Cr better than baseline. (5) Type II diabetes mellitus, uncontrolled: Status: Chronic Assessment and plan: Continue basal bolus insulin, SSi. Qualifiers: Glycemic state: with hyperglycemia Qualified Code(s): E11.65 - Type 2 diabetes mellitus with hyperglycemia (6) Cognitive impairment: Status: Chronic Assessment and plan: The patient requires repetitive reinforcement of what a low carb diet is. Nutrition has been consulted.. (7) CHF (congestive heart failure): Status: Chronic Assessment and plan: Chronic, diastolic as well as a mild R-sided component/pulmonary hypertension. IVF d/c'ed, but would continue to hold diuretics. (8) Pulmonary fibrosis: Status: Chronic Assessment and plan: hold Ofev for now until we see if her diarrhea improves. It seems that her diarrhea resumed when the Ofev was restarted (9) DVT prophylaxis: Status: Acute Assessment and plan: SC heparin (10) Discharge planning issues: Status: Acute Assessment and plan: Full code PT consulted. Palliative care patient. probable dc home tomorrow Subjective Subjective Interval history since last seen: No further vomiting but has not had anything to eat today d/t her NM gastric empyting study which was normal. Exam Narrative Exam Narrative: Elly denies any abdominal pain but states that she has chronic watery diarrrhea that has been present for many months. I told her that based on her CT findings of her colon we think that she has IBD and needs a c-scope Lungs: fine bilateral diffuse rales consistent w/ pulmonary fibrosis Heart: RRR Abdomen: obese, soft, normal bowel sounds, non-distended Objective Last Vital Signs Temp 36.6 C 05/11/22 15:29 Pulse 80 05/11/22 15:29 Resp 18 05/11/22 15:29 BP 124/69 05/11/22 15:29 Pulse Ox 98 05/11/22 15:29 Laboratory Results - last 24 hr 05/11/22 06:38 Sodium 137 Potassium 4.5 Chloride 102 Carbon Dioxide 27.4 Anion Gap 7.6 BUN 13 Creatinine 1.3 H Estimated GFR/1.73 m2 40.49 Glucose 310 H Calcium 8.7 Magnesium 1.9
[2022-05-11 19:40] VITALS: BP 115/64; PULSE 82; RESP 17; TEMP 36; O2SAT 95
[2022-05-11 20:30] LABS: Gliadin (Deamidated) Ab, IgA <10.0 U; Gliadin (Deamidated) Ab, IgG <10.0 U
[2022-05-11 20:36] VITALS: O2SAT 95
[2022-05-11] MEDS: Atorvastatin 40 MG TAB 80 MG PO (20:37)
[2022-05-11] MEDS: Psyllium PKT 1 EACH PO (20:37)
[2022-05-11] MEDS: metroNIDAZOLE 500 MG TAB PO (20:37)
[2022-05-11] MEDS: Ciprofloxacin 500 MG TAB PO (20:37)
[2022-05-11] MEDS: Metoprolol 12.5 MG TAB PO (20:37)
[2022-05-11] MEDS: Magnesium Oxide 400 MG TAB 800 MG PO (21:45)
[2022-05-11] MEDS: Metoclopramide 10 MG TAB PO (21:45)
[2022-05-11 23:21] LABS: Tissue Transglutaminase Ab IgA <1.2 U/mL; Tissue Transglutaminase Ab IgG <1.2 U/mL
[2022-05-12] VITALS (23 sets, daily range): BP systolic 102–117; BP diastolic 45–66; PULSE 76–108; RESP 2–32; TEMP 36.1–37.5; O2SAT 80–98
--- NOTE | 2022-05-12 | DI.RAD_ITS ---
Exam(s) XR SHOULDER LT COMPLETE 2+V EXAM: XR SHOULDER LT COMPLETE 2+V CLINICAL HISTORY: shoulder pain. TECHNIQUE: 2D digital imaging was performed. COMPARISON: CR XR SHOULDER LT COMPLETE 2+V from 06/29/2021 FINDINGS: Six views: There is a reverse shoulder prosthesis. No fracture or loosening evident. Widened AC joint unchange d from prior study of June 2021, most probably postsurgical. IMPRESSION: Left shoulder reverse prosthesis appears intact. No fracture or loosening evident. DATA REPOSITORY: RADIATION DOSE DELIVERED:
[2022-05-12] MEDS: Albuterol/Ipratropium 3 ML UPD VIAL UPD ×3 (00:27→20:17)
[2022-05-12] MEDS: Heparin 5,000 UNITS/ML VIAL 5000 UNITS SC ×3 (05:47→22:04)
[2022-05-12] MEDS: Insulin Aspart 300 UNITS/3 ML PEN SC ×4 (08:04→22:05)
[2022-05-12] MEDS: Albuterol 2.5 MG/3 ML INH SOLN VIAL UPD (08:04)
--- NOTE | 2022-05-12 09:00 | DI.RAD_ITS ---
Exam(s) RF MODIFIED SPEECH BA SWALLOW TECHNIQUE: Modified barium swallow was performed in conjunction with speech pathology. CONTRAST MATERIAL: Oral barium Oral water soluble contrast was administered. COMPARISON: No exams were available for comparison FINDINGS: There was no aspiration evident on this study. See separate report by the speech therapist Also see separate esophagram report IMPRESSION: No evidence of aspiration or penetration. RADIATION DOSE DELIVERED: Ka,r= mGy
--- NOTE | 2022-05-12 10:06 | DM INPTCON_ITS ---
Date of service: 05/12/22 Time of Service: 10:06 Diabetes Inpatient Consult Reason for Visit: dm DESCRIPTION/ASSESSMENT: Elly was admitted with n/v/d with hx of Inflammatory Bowel Disease, CKD, DM2. Gastric emptying study at [facility] 05/12/22. Has been NPO or on clear liquids since admission 5 days ago. At nutritional risk with extended period of poor po intake. Most recent A1C (03/04/22) 7.2% indicates good glycemic managment on current home DM regime of 18 units lantus HS, 4-24 u lispor at meals. PLAN: Will monitor diet advancement, po intake, labs and weight. Time Spent in Nutritional Counseling and Treatment: 0
--- NOTE | 2022-05-12 10:30 | ST.MBS ---
Date of Service Date of service: 05/12/22 Time of Service: 11:29 Modified Barium Swallow Study Findings: Videofluoroscopic Swallowing Evaluation (VFSE) / Modified Barium Swallow Study (MBSS) Speech Language Pathology Report HPI: Patient is a 71 y/o year old female referred for VFSE/MBSS from Dr. Carrizales given concern for aspiration pneumonia and simultaneous need for esophagram. Patient was admitted to [facility] 2/2 N/V/D and dehydration; PMHx sig for?CHF, chronic N/V/D, CKD, A fib, h/o NSTEMI, DM, pulmonary fibrosis, pulmonary HTN, MCI. She also has a history of GERD with hiatal hernia. She is on 2L 02 via nasal cannula at home, but requiring 7L via NC in hospital. Found to have pneumonia, concern for aspiration. Nursing has not reported any overt s/sx aspiration, though admittedly patient has spent time NPO or on liquids due to GI workup. All Active Problems? Discharge planning issues (Acute) DVT prophylaxis (Acute) CHF (congestive heart failure) (Chronic) Chronic vomiting (Chronic) Chronic diarrhea (Chronic) Nausea & vomiting (Acute) CKD (chronic kidney disease) (Chronic) Regurgitation of food (Acute) Renal insufficiency (Chronic) Symptomatic anemia (Acute) New onset a-fib (Acute) Anemia (Chronic) Immunoglobulin deficiency (Acute) Chronic pulmonary aspiration (Acute) Grief (Chronic) brother [place]-level of literacy (Chronic) Palliative care patient (Acute) Orthostatic hypotension (Acute) Acute congestive heart failure (Acute) NSTEMI (non-ST elevated myocardial infarction) (Acute) Shortness of breath (Acute) Syncope (Chronic) IDDM (insulin dependent diabetes mellitus) (Chronic) Hiatal hernia (Chronic) Pulmonary fibrosis (Chronic) Renal insufficiency (Chronic) Functional encopresis (Chronic) Palliative care patient (Chronic) Pulmonary hypertension (Chronic) Chronic respiratory failure with hypoxia (Chronic) Advance directive on file (Acute) Long-term use of high-risk medication (Chronic 03/16/18) Interstitial lung disease (Acute 03/16/18) Pulm: JedlovskyGastroesophageal reflux disease without esophagitis (Chronic 03/16/18) Dyspnea (Chronic 03/16/18) Cognitive impairment (Chronic 03/16/18) Mild, w/Memory Loss Umbilical hernia (Chronic) Type II diabetes mellitus, uncontrolled (Chronic) Total urinary incontinence (Chronic) Medical History? Abdominal pain Acute gastroenteritis (03/16/18) Acute kidney injury (nontraumatic) Acute pneumonitis SYD (acute kidney injury) Anosognosia Anxiety (03/16/18) Asthma Back pain Chest wall pain COPD (chronic obstructive pulmonary disease) Cough Cubital tunnel syndrome (03/16/18) Dehydration Depressive disorder Discharge planning issues DKA (diabetic ketoacidosis) DVT prophylaxis Edema (03/16/18) Encounter to establish care Essential hypertension (07/17/13) Fracture of humerus, proximal, left, closed (05/02/21) History of shingles (03/16/18) Hyperlipemia Inflammatory disorder of digestive tract Insulin dependent diabetes mellitus Internal derangement of right knee Medication monitoring encounter Metabolic acidosis with normal anion gap and bicarbonate losses Migraine (04/03/14) Nausea & vomiting Neck pain (03/16/18) 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 Appendectomy Arthroscopy, Shoulder leftBilateral salpingectomy with oophorectomy section Cholecystectomy Age 20. of section Ligation of fallopian tube Thoracoscopic (R)Lung Bx (02/12/18) Previous Imaging: CHEST X-RAY - 05/06/22 FINDINGS: Single AP portable view. Very low lung volumes. Heart size is upper normal.? The mediastinum is not widened. Extensive infiltrate in the right lung.? Left lower lobe infiltrate.? No large pleural effusions.? No pneumothorax. NM GASTRIC EMPTYING - 05/11/22 IMPRESSION: 1. Rapid gastric emptying. SUBJECTIVE: Patient was transferred from floor to radiology suite via with TIMBER FRAMER present. She transferred with standby assist and use of cane to platform for this study. At completion of study she reported feeling a little dizzy and requiring assist to transfer to chair. Following MBSS she also participated subsequently in upright esophagram with radiologist, as well as chest imaging. Patient denies s/sx aspiration such as coughing, throat clear, wet voice at baseline. She is largely edentulous with only lower incisers present. She does report frequent sensation of pharyngeal stasis, localizes to just above clavicular level. She endorses frequent reflux and regurgitation, sometimes as early as 3 seconds after swallowing. This happens with liquids or solids. She reports that she has a hospital bed at home and sleeps with HOB somewhat elevated. IMPRESSIONS: IMPRESSIONS: Patient presents with mild oral phase dysphagia characterized by very delayed/effortful/disorganized anterior to posterior lingual transit and complicated by edentulousness. Patient frequently with piecemeal deglutition of non-liquid trials which can present aspiration risk in patients poor pulmonary status and SOB. No aspiration with liquid, puree, or regular solid texture trials. Noting mild reduced epiglottic inversion resulting in mild vallecular residue. Scant, very shallow penetration of thin liquids during large volume/sequential sips thin liquid (WFL). If aspiration is occurring it is not likely to be due primarily to oral or pharyngeal phases. Given hx with GERD, Hiatal hernia, emesis, there is risk present of aspiration of refluxed material. Given patient's difficulty with oral transit and high O2 needs with notable SOB during study, she remains at mildly heightened risk of aspiration of stasis, as well as reflux material. Recommend soft/bite size solids to decrease work of chewing and reduce risk of aspiration of stasis material during meals. Once O2 needs return to baseline, diet rec may be reconsidered. Please see radiology report for further details re: esophageal function. RECOMMENDATIONS & PLAN: Risk Management:? Behavioral reflux precautions, including upright position during + 90 mins after meals, smaller & more frequent meals per day, elevated HOB during sleep/rest. Small bites, approx [id number] to reduce likelyhood of oral/pharyngeal residue Small sips, approx 10 mL Add sauces/gravies to dense/dry textures to promote A/P transit Multiple swallows per bolus to encourage clearance of oral or pharyngeal stasis/residue Control risk factors for aspiration pneumonia via (a) thorough & frequent oral hygiene & (b) maintaining physical mobility as tolerated Diet Texture Recommendation:? IDDSI Level 6-Soft & Bite-Sized Solids (edentulousness, high work of breathing) 0-Thin Liquids Medications: as tolerated Please see further details at?www.iddsi.org Diet texture modification is per patient's preference; please adjust diet textures at patient's discretion & collaboration with care team. PLAN: Therapy: no further ASSISTANT FINANCIAL ACCOUNTANT services needed at this time. ORAL-PERIPHERAL EXAM: WFL for strength, symmetry, coordination, ROM of oral/facial structures. Robust/sharp volitional cough, sounds congested but unproductive. Noting large tongue size. Largely edentulous, only lower incisors present. No dentures. Oral care and mucosal appearance appears good/fair. Volitional saliva swallow is palpable, appears timely and adequate though, unable to rule out without instrumental assessment. PHYSIOLOGIC FINDINGS / STANDARDIZED MEASURES MBSImP Component Scores: COMPONENT Scale SCORE 1 Lip closure (0-4) 1 Resulted in interlabial escape, without progression to anterior lip 2 Hold Position (0-3) 0 Maintained a cohesive bolus between tongue to palatal seal 3 Bolus Preparation (0-4) 1 Resulted in slow prolonged chewing/mashing with complete re-collection 4 Bolus Transport (0-4) 3 Was with repetitive/disorganized motion of the tongue 5 Oral Residue (0-4) 2 Was a collection on oral structures 6 Swallow Initiation (0-4) 0 Occurred as bolus head at posterior angle of the mandibular ramus 7 Soft Palate Elevation (0-4) 0 Resulted in no bolus between soft palate and the pharyngeal wall 8 Laryngeal Elevation (0-3) 1 Was decreased with partial superior movement of thyroid cartilage/partial approximation of arytenoids to epiglottic petiole 9 Anterior Hyoid Motion (0-2) 0 Demonstrated complete anterior movement 10 Epiglottic Movement (0-2) 1 Resulted in partial inversion 11 Laryngeal Closure (0-2) 0 Was complete with no air or contrast in laryngeal vestibule 12 Pharyngeal Stripping Wave (0-2) 1 Was present, but diminished 13 Pharyngeal Contraction (0-3) NA 14 PES Opening (0-3) 1 Demonstrated partial distension/partial duration, with partial obstruction of flow 15 Tongue Base Retraction (0-4) 1 Allowed a trace column of contrast or air between tongue base and pharyngeal wall 16 Pharyngeal Residue (0-4) 1 Showed a trace within or on pharyngeal structures 17 Esophageal Clearance (0-4) NA A/P view not conducted; noting persistent esophageal stasis, see radiologist's report. Dysphagia Outcome and Severity Scale: COMPONENT Scale SCORE 1 LEVEL (1-7) 6 Full PO: Normal Diet - Within functional limits/modified independence Penetration-Aspiration Scale: COMPONENT Scale SCORE 1 Thin liquid (1-8) 2 Contrast entered the airway, remained above the vocal folds, and was ejected from the airway. 2 [place] thick (1-8) NA 3 Honey thick (1-8) NA 4 Pudding thick (1-8) 1 Contrast did not enter the airway 5 Cookie (1-8) 1 Contrast did not enter the airway Note: This study was performed for interpretation only of the oropharyngeal and pharyngoesophageal domains of swallowing, and is not intended to diagnose any other radiologic abnormalities or substitute for a formal esophagram study Thank you for allowing us to take part in this patient's care. Please feel free to contact the [facility] Speech Language Pathology Department with any questions/concerns. Coding CPT Codes MOTION FLUOROSCOPY/SWALLOW - [id number] ([id number])
--- NOTE | 2022-05-12 11:26 | DI.RAD_ITS ---
Exam(s) RF BARIUM SWALLOW EXAM: RF BARIUM SWALLOW CLINICAL HISTORY: reflux; chronic post prandial emesis TECHNIQUE: 2D and realtime digital imaging was performed. CONTRAST MATERIAL: Oral barium Oral water soluble contrast was administered. COMPARISON: CR,XR XR CHEST 1V IN DI DEPT from 05/06/2022 FINDINGS: Performed standing: There was no obvious aspiration evident. No Zenker's diverticulum. Although there were no obvious f ixed lesions in the esophagus, there is prominent stasis throughout the esophagus. No true achalasia . Presbyesophagus-type pattern noted. Small hiatal hernia noted. No obvious reflux although it was not possible to make this patient during a true challenging amount of barium. Patient did not vomit during procedure. IMPRESSION: Abnormal study. Although there was no aspiration nor prominent reflux demonstrated, the main finding here was significant stasis throughout the esophagus. Presbyesophagus pattern also evident. Small inconsistent hiatal hernia. No prominent reflux demonstrated, realized limitations of this alex dy. Left shoulder prosthesis noted. Also interstitial infiltrates in both lung aguilar. RADIATION DOSE DELIVERED: Dominickr= mGy
[2022-05-12] MEDS: Psyllium PKT 1 EACH PO ×2 (11:44→20:15)
[2022-05-12] MEDS: Escitalopram 20 MG TAB PO (11:45)
[2022-05-12] MEDS: Metoprolol 12.5 MG TAB PO ×2 (11:45→20:24)
[2022-05-12] MEDS: Ciprofloxacin 500 MG TAB PO ×2 (11:45→20:12)
[2022-05-12] MEDS: metroNIDAZOLE 500 MG TAB PO ×3 (11:45→20:15)
[2022-05-12] MEDS: Barium Sulfate Oral Paste 40% W/V 230 ML TUBE 15 ML PO (11:47)
[2022-05-12] MEDS: Barium Sulfate 81% w/w for Oral Suspension 148 GM BTL 30 GM PO (11:49)
[2022-05-12] MEDS: Metoclopramide 10 MG TAB PO ×3 (11:51→22:03)
--- NOTE | 2022-05-12 12:48 | CMPROGNOTE_ITS ---
- If Service Date Differs Date of service: 05/12/22 Time of Service: 12:48 Care Management Progress Note S/O: Elly was sitting up in bed when CM met with her. She was pleasant but appeared pale and stated that her breathing is not good today. She informed [facility] that she needed to have her oxygen increased to 7L/min this morning. She also shared that she is tired as she has had several tests today. Elly reported that she really wants to go home tomorrow as her daughter is coming from [place] , but r lisalizes she may not be ready. She appeared sad during this part of the conversation. A: 71 year old female admitted to [facility] 05/07/22 for dehydration, acute gastroenteritis P: Anticipate Elly will return home when ready per MD with new orders for [facility] RN/PT if recommended. Elly will transport via [facility], coordinated by [facility]. [facility] continues to follow. - Guardianship if Applicable Guardianship: Other (Grandson, Jorge Luis Zepeda )
[2022-05-12] MEDS: Magnesium Oxide 400 MG TAB 800 MG PO ×2 (12:51→22:02)
--- NOTE | 2022-05-12 15:18 | PT.INNT ---
Date of service: 05/12/22 Time of Service: 15:19 PT Notes Visit Reasons: Dehydration,Acute Gastroenteritis 05/12/2022 Patient not available for PT in both a.m. and p.m. due to being out of room for various testing. Will attempt to resume PT services tomorrow morning.
[2022-05-12] MEDS: Midodrine 2.5 MG TAB 10 MG PO ×2 (15:59→20:24)
--- NOTE | 2022-05-12 16:53 | W.PM.PROGNOT ---
Date of Service Date of service: 05/12/22 Time of Service: 16:54 Assessment and Plan Assessment and plan (1) Hypoxemia: Status: Acute Assessment and plan: ddx is multifactorial: she has baseline of IPF and has been on Ofev which I have held d/t her nausea and vomiting; she has underlying COPD; she was dehydrated d/t diarrhea and nausea and vomiting on admission and was given iv fluid resuscitatation which has been completed. I did a POCUS exam of her heart and lungs. While she has diffuse B line pattern bilaterally, her pleural has a ragged appearance and the B lines are in all lung aguilar and she has no pleural effusions, therefore I do not believe her hypoxemia is d/t fluid overload; furthermore her IVC was only 1.5 cm and had significant inspiratory collapsability w/ deep breathing (over 50%) thus suggesting she is no fluid overloaded. (also her clinical exam shows on peripheral edema or JVD). It may be she is developing a pneumonia or she may have had a P.E. She is afebrile and while she has paroxysms of coughing she has no purulence and no fevers. I will get CTA of her chest tonight. We can use HFNC for supportive care and I will give her a course of prednisone along w/ her bronchodilators. Professional time spent interviewing and examining patient, discussion of goals of care with hospital team (care management, nursing and consulting professionals) was 45 minutes. (2) Pulmonary fibrosis: Status: Chronic Assessment and plan: hold Ofev for now until we see if her diarrhea improves. It seems that her diarrhea resumed when the Ofev was restarted and now is improving since stopping the Ofev and putting her on metamucil (3) Chronic diarrhea: Status: Chronic Assessment and plan: CT of the abdomen/pelvis, as read by our radiologist, suggests possible IBD or chronic colonic ischemia. Her diarrhea seems temporally related to her Ofev. I will dc her Ofev which has been on hold. Since resuming her Ofev her diarrhea got worse again but now is better since holding her Ofev. She still needs workup for IBD. I will stop her Flagyl and her Cipro at this point. (4) Nausea & vomiting: Status: Acute Assessment and plan: This may be med related as she has had no emesis today. However she has a small hiatal hernia and presbyesophagus. I will ask [employer] to evaluate her swallowing and I have put her higher dose of reglan (she was on 5 mg qid which I have increased to 10 mg qid. (5) Inflammatory bowel disease: Status: Suspected Assessment and plan: As above; IBD markers are still pending (6) CKD (chronic kidney disease): Status: Chronic Assessment and plan: As above. Cr better than baseline. (7) Type II diabetes mellitus, uncontrolled: Status: Chronic Assessment and plan: Continue basal bolus insulin, SSi. I have adde Jardiance for her HFPEF but this should also help w/ her DM. I have added Lantus 15 units nightly and added CHO coverage. Qualifiers: Glycemic state: with hyperglycemia Qualified Code(s): E11.65 - Type 2 diabetes mellitus with hyperglycemia (8) CHF (congestive heart failure): Status: Chronic Assessment and plan: Chronic, diastolic as well as a mild R-sided component/pulmonary hypertension. I will resume her home dose of her diuretics now that her diarrhea has resolved. (9) DVT prophylaxis: Status: Acute Assessment and plan: SC heparin (10) Discharge planning issues: Status: Acute Assessment and plan: Full code PT consulted. Palliative care patient. unclear as to when she will be able to be discharged. Depends on her respiratory status. her GI problems seem to be manageable at this point. Subjective Subjective Interval history since last seen: Patient complains of left shoulder pain. This is the shoulder she previously had arthroplasty. We checked an x-ray there is no evidence of any fracture or disruption of her prosthesis. Told Elly that we would ask orthopedics to evaluate her in the morning. Patient was off the floor most of the day having testing done and did not get to work with physical therapy today. She underwent a barium swallow which showed no obvious aspiration event and no evidence of a Zenker's diverticulum. However there was prominent stasis throughout the esophagus with no true achalasia. She has a presbyesophagus type pattern and small hiatal hernia. No obvious reflux was seen. This is an abnormal study. We will have speech therapy follow-up with her on this. Her chest x-ray was also obtained because of intermittent hypoxemia. Chest x-ray shows chronic bilateral interstitial infiltrates unchanged from prior chest x-rays. I obtained her CXR to see if she was developing pneumonia or CHF given she has had increasing oxygen requirements and now is on oxymask to keep her SPO2 above 90%. I will get CTA of her chest tonight to evaluate for PE. Exam Narrative Exam Narrative: Elly is sitting up in her bed; she is alert/oriented x 4 Lungs w/ diffuse fine rales c/w her pulmonary fibrosis Heart: regular but slightly tachycardia Abdomen: soft, nontender Legs: no edema Objective Last Vital Signs Temp 37.5 C 05/12/22 15:14 Pulse 92 H 05/12/22 15:14 Resp 26 H 05/12/22 15:14 BP 106/66 05/12/22 15:14 Pulse Ox 94 05/12/22 15:14 Laboratory Results - last 24 hr 05/10/22 05/11/22 06:13 11:00 Stool Description Not Applicable Stool Ova & Parasites SEE BELOW Tiss Transglutamin IgG <1.2 Tiss Transglutamin IgA <1.2 Gliadin (Deamidat) IgG <10.0 Gliadin (Deamidat) IgA <10.0
[2022-05-12] MEDS: Empaglifozin 10 MG TAB PO (17:49)
--- NOTE | 2022-05-12 20:00 | DI.CT_ITS ---
Exam(s) CT CHEST PE CTA EXAM: CT CHEST PE CTA CLINICAL HISTORY: Dyspnea, hypoxemia. TECHNIQUE: Imaging Protocol: Axial CT angiography was performed with multi-slice acquisition and mu lti-planar reconstructions as well as axial, coronal and sagittal MIP reconstructions. CONTRAST MATERIAL: Intravenous: Omnipaque 350 Contrast volume:100 ml COMPARISON: CR XR CHEST 2V PA LATERAL from 09/21/2021 CR,RF RF BARIUM SWALLOW from 03/30/2022 CR,XR XR CHEST 1V IN DI DEPT from 05/06/[address] ABDOMEN PELVIS WO from 05/06/2022 CR,RF RF BARIUM SWALLOW from 05/12/2022 FINDINGS: Pulmonary Arteries: No evidence of filling defect to suggest pulmonary emboli. Tracheobronchial tree: Patent where visualized. Mediastinum and Martha: Stable mildly enlarged mediastinal lymph nodes. No or fluid collection. Pulmonary parenchyma: Limited evaluation due to study performed in expiration as well as respiratory motion. Severe fibrotic changes. Question of superimposed infiltrates in the right upper and lower lobes as well as lingula. Pleura: No effusion or pneumothorax. Heart: The heart is not dilated. Mild coronary artery calcifications are seen. Aorta: Thoracic aorta non-dilated. No aneurysm. No dissection. Mild atherosclerotic changes. Upper abdomen: Small hiatal hernia. Bones: Left shoulder prosthesis. No compression fractures.. IMPRESSION: No evidence of pulmonary embolism. Severe underlying fibrotic changes. Question of superimposed inf iltrates in the particularly in the right upper lobe. RADIATION DOSE DELIVERED: 475.17mGy.cm Total DLP DATA REPOSITORY: All CT scans at this facility are submitted to the National Radiology Data Registry (NRDR) Dose Index Registry (DIR) with the [employer] (A[employer]). RADIATION OPTIMIZATION: All CT scans at this facility use at least one of these dose optimization te chniques: automated exposure control; mA and/or kV adjustment per patient size (includes targeted exa ms where dose is matched to clinical indication); or iterative reconstruction.
[2022-05-12] MEDS: Benzonatate 100 MG CAP 200 MG PO (20:13)
[2022-05-12] MEDS: predniSONE 20 MG TAB 60 MG PO (20:14)
[2022-05-12] MEDS: Atorvastatin 40 MG TAB 80 MG PO (20:14)
[2022-05-12] MEDS: Omnipaque 350 MG/ML 100 ML BTL IJ (22:42)
[2022-05-12] MEDS: Insulin Glargine 300 UNITS/3 ML PEN 15 UNITS SC (23:06)
--- NOTE | 2022-05-12 23:28 | DI.VRAD_ITS ---
PROCEDURE INFORMATION: Exam: CTA Chest With Contrast Exam date and time: 05/12/2022 10:21 PM Age: 71 years old Clinical indication: Dyspnea and shortness of breath TECHNIQUE: Imaging protocol: Computed tomographic angiography of the chest with contrast. 3D rendering (Not supervised by radiologist): MIP and/or 3D reconstructed images were created by the technologist. Radiation optimization: All CT scans at this facility use at least one of these dose optimization techniques: automated exposure control; mA and/or kV adjustment per patient size (includes targeted exams where dose is matched to clinical indication); or iterative reconstruction. Contrast material: OMNI 350; Contrast volume: 100 ml; Contrast route: INTRAVENOUS (IV); COMPARISON: CT CHEST PE CTA 12/02/2021 7:34 PM FINDINGS: Pulmonary arteries: No pulmonary emboli. Aorta: No aortic aneurysm. No aortic dissection. Lungs: Bilateral linear opacities of fibrosis. Similar pattern on the prior study. Superimposed bilateral airspace disease cannot be excluded. Pleural spaces: Unremarkable. No pneumothorax. No pleural effusion. Heart: Cardiomegaly. Cardiomegaly. Lymph nodes: Enlarged right paratracheal lymph node, 1.4 cm in short axis. Enlarged left inferior paratracheal lymph node, 1.4 cm in short axis. 10 mm left hilar lymph node. 11 mm right hilar lymph node. Subcarinal right inferior peribronchial lymphadenopathy. Stomach and bowel: Hiatal hernia containing proximal stomach. Bones/joints: Status post reverse arthroplasty of the left shoulder. Soft tissues: Unremarkable. IMPRESSION: 1. No pulmonary emboli. 2. Stable lymphadenopathy. 3. Bilateral changes of fibrosis, bilateral ground-glass opacities with occasional consolidations, more prominent than on the prior study, cannot rule out superimposed airspace disease. Dictated and Authenticated by: Wm Ramey MD. Ordering:[facility] All [place] MD
[2022-05-12 23:37] LABS: Campylobacter PCR Negative (Negative); Salmonella PCR Negative (Negative); Shiga Toxin PCR Negative (Negative); Shigella/Enteroinvasive Ecoli Negative (Negative)
[2022-05-13] VITALS (12 sets, daily range): BP systolic 110–114; BP diastolic 53–66; PULSE 88–91; RESP 2–30; TEMP 36.1–36.9; O2SAT 93–98
[2022-05-13] MEDS: Albuterol/Ipratropium 3 ML UPD VIAL UPD ×4 (01:07→21:05)
[2022-05-13] MEDS: Heparin 5,000 UNITS/ML VIAL 5000 UNITS SC ×3 (06:11→21:05)
[2022-05-13 07:13] LABS: HCT 30.5 % (36.0-46.0); HGB 10.1 g/dL (11.2-15.7); MCH 33.1 pg (27.0-33.0); MCHC 33.1 % (32.0-36.0); MCV 100 fL (80-95); MPV 10.4 fL (8.0-11.0); Platelet Count 329 10^3/uL (130-400); RBC 3.05 10^6/uL (3.93-5.22); RDW 14.6 % (11.7-14.6); RDW-SD 53.1 fL; WBC 12.68 10^3/uL (4.4-10.8)
[2022-05-13 07:41] LABS: Anion Gap 8.3 mmol/L (3-11); BUN 25 mg/dL (7-18); CO2 27.7 mmol/L (21.0-32.0); CREATININE 1.5 mg/dL (0.55-1.02); Calcium 9.4 mg/dL (8.5-10.1); Chloride 103 mmol/L (98-107); Estimated GFR 34.33 (mL/min/1.73m2); Glucose 295 mg/dL (74-106); NT-proBNP 6624 pg/mL (<300); Potassium 4.8 mmol/L (3.5-5.1); Sodium 139 mmol/L (136-145)
--- NOTE | 2022-05-13 09:20 | W.PM.PROGNOT ---
Date of Service Date of service: 05/13/22 Time of Service: 09:20 Assessment and Plan Assessment and plan (1) Hypoxemia: Status: Acute Assessment and plan: Multifactorial including her IPF and chronic aspiration from her presbyesophagus. I have dc her Cipro and Flagyl but put her on short course of Levaquin to cover for possible aspiration pneumonia (CT chest last night negative for PE but demonstrated some superimposed infiltrates in addition to her underlying IPF). She is followed by Dr. Morelos on OP basis. I will ask her to consult on her patient. I did put her on a short course of prednisone and she has been on her nebulized bronchodilators. Professional time spent interviewing and examining patient, discussion of goals of care with hospital team (care management, nursing and consulting professionals) was 30 minutes. (2) Pulmonary fibrosis: Status: Chronic Assessment and plan: Ofev was held and her diarrhea got better but when we restarted her Ofev her diarrhea returned. I have held her Ofev for now pending discussion w/ Dr. Morelos on alternative treatments. (3) Chronic diarrhea: Status: Chronic Assessment and plan: CT of the abdomen/pelvis, as read by our radiologist, suggests possible IBD or chronic colonic ischemia. I have put her Ofev on hold and her diarrhea has improved. I do not think that her diarrrhea is d/t IBD but is d/t her Ofev. That is not to say she can't have both. Certainly the CT findings can not be explained by her Ofev. I think at this point her lung disease is too severe and precludes any upper or lower endoscopy. (4) Nausea & vomiting: Status: Acute Assessment and plan: This may be med related as she has had no emesis today. However she has a small hiatal hernia and presbyesophagus. I will ask BAKER DOUGHNUT to evaluate her swallowing and I have put her higher dose of reglan (she was on 5 mg qid which I have increased to 10 mg qid. (5) Inflammatory bowel disease: Status: Suspected Assessment and plan: As above; IBD markers are still pending (6) CKD (chronic kidney disease): Status: Chronic Assessment and plan: As above. Cr better than baseline. (7) Type II diabetes mellitus, uncontrolled: Status: Chronic Assessment and plan: Continue basal bolus insulin, SSi. I have adde Jardiance for her HFPEF but this should also help w/ her DM. I have added Lantus 15 units nightly and added CHO coverage. Qualifiers: Glycemic state: with hyperglycemia Qualified Code(s): E11.65 - Type 2 diabetes mellitus with hyperglycemia (8) CHF (congestive heart failure): Status: Chronic Assessment and plan: Chronic, diastolic as well as a mild R-sided component/pulmonary hypertension. I have resumed her home dose of her diuretics (spironolactone and lasix) now that her diarrhea has resolved. montior her renal function/electrolytes (9) DVT prophylaxis: Status: Acute Assessment and plan: SC heparin (10) Discharge planning issues: Status: Acute Assessment and plan: Full code. Her code status was reviewed by Palliative care. Patient wants to be able to return home and wants to see her family, some who are coming from out of town. unclear as to when she will be able to be discharged. Depends on her respiratory status. her GI problems seem to be manageable at this point. Subjective Subjective Interval history since last seen: Patient has had intermittent desaturations requiring oxy mask to bring up her SPO2 to 90%. I think that she is having aspiration events. she has hiatal hernia and on yesterday's modified barium swallow while she did not frankly aspirate, she has presbyesophagus w/ stasis of fluid in her esophagus. I put her on higher dose of reglan but this has not really helped as she does not have evidence of gastroparesis. After breakfast she had an event in which she was dyspneic and required 15 LPM face mask to recover. Exam Narrative Exam Narrative: Obese white female who was sitting up on the commode (had formed this morning) She is alert and able to talk in full paragraphs and after getting off the commode she was talking to her brother on the phone Lungs: she has diffuse bilateral fine rales c/w her IPF Heart is regular Abdomen: obese, soft, nontender, nondistended Extremities: no edema or cyanosis Objective Last Vital Signs Temp 36.9 C 05/13/22 07:39 Pulse 90 05/13/22 07:46 Resp 30 H 05/13/22 07:39 BP 110/66 05/13/22 07:39 Pulse Ox 95 05/13/22 07:46 Laboratory Results - last 24 hr 05/10/22 05/11/2205/13/22 06:13 11:00 06:39 WBC 12.68 H RBC 3.05 L Hgb 10.1 L Hct 30.5 L MCV 100 H MCH 33.1 H MCHC 33.1 RDW 14.6 Plt Count 329 MPV 10.4 Sodium Potassium Chloride Carbon Dioxide Anion Gap BUN Creatinine Estimated GFR/1.73 m2 Glucose Calcium NT-Pro-B Natriuret Pep Stool Description Not Applicable Stool Ova & Parasites SEE BELOW Endomysial IgA Ab Negative 05/13/22 06:39 WBC RBC Hgb Hct MCV MCH MCHC RDW Plt Count MPV Sodium 139 Potassium 4.8 Chloride 103 Carbon Dioxide 27.7 Anion Gap 8.3 BUN 25 H Creatinine 1.5 H Estimated GFR/1.73 m2 34.33 Glucose 295 H Calcium 9.4 NT-Pro-B Natriuret Pep 6624 H Stool Description Stool Ova & Parasites Endomysial IgA Ab
--- NOTE | 2022-05-13 09:35 | PUCON_ITS ---
General Date Of Service Date of service: 05/13/22 Time of Service: 09:35 Reason for Consult: Hypoxia Assessment and Plan Assessment and plan (1) Respiratory failure, [id number]: Status: Acute (2) CHF (congestive heart failure): Status: Chronic (3) Chronic vomiting: Status: Chronic (4) Chronic diarrhea: Status: Chronic (5) CKD (chronic kidney disease): Status: Chronic (6) Chronic pulmonary aspiration: Status: Acute Qualifiers: Encounter type: subsequent encounter Qualified Code(s): T17.908D - Unspecified foreign body in respiratory tract, part unspecified causing other injury, subsequent encounter (7) Interstitial lung disease: Status: Acute Assessment and plan: This is a 71 yo with progressive unspecified ILD on OFEV with chronic aspiration, chronic vomiting and diarrhea, acute on chronic hypoxic respiratory failure, RODRIGO on CPAP, and who is currently being worked up for an immunodeficiency. I would advise against giving steroids in the setting of the potential immune deficiency particularly if infection could be a concern. I will non-invasively test her for infection, including oppoortunistic infections. She is too high risk to perform bronchoscopy on at [facility]. I will also switch her from Levaquin to Augmentin given her MSK issues/diarrhea/GERD issues. I do not think that all of the diarrhea is due to OFEV. This has been an ongoing chronic issue and would recommend re-starting this, but at a lower dose - 100mg daily (as opposed to 150mg bid). It does not seem as though she is on her CPAP either and would strongly recommend start this (she is on Auto CPAP 6-16 cmH2O). I suspect her respiratory symptoms are aspiration related. 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 I last saw her in my clinic in January. 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 She also follows with palliative care and there was a discussion about the potential of moving to [place] but the patient was not agreeable to this suggestion. She sees Dr. Fernandez for her A. Fib and HTN. She saw GI at [facility] on 05/04/22. It was felt that her vomiting is due to chronic NSAID and opioid use with other possible differentials including gastritis, PUD, celiacs, IBD and diabetic gastroparesis with the hiatal hernia being though to be less of a concern for this. They are planning on ruling out IBD and celiacs as a cause for her diarrhea. Overal their current plan was for TSH and celiac panel, EGD and colonoscopy, gastric emptying scan, anorectal manometry and for close follow up. Unfortunately, she was admitted 05/07/22 for dehydration and was given IVF (although her current I/O balance is -1L). Her OFEV was held as there was thought that this was the cause of her diarrhea. She has a gastric emptying study that found rapid gastric emptying. She also had a barium swallow test repeated (had one completed 03/30/22) as the prior was unsuccessful. This one found esophageal stasis, presbyesophagus. She developed worsening hypoxia over her baseline and so a chest CTPE was obtained. There was no PE (patient on A/C) with concern for superimposed right upper, right lower and lingula infiltrates, however on my assessment, comparing to prior scans her infiltrates seem to look stable. She tells me she isn't doing great because she is needing more oxygen. She does have a cough and this morning coughed up brown mucus. She is short of breath but it is not terrible while resting. Review of Systems All systems reviewed & are unremarkable except as noted in HPI and below PFSH All Active Problems (Updated 05/13/22 @ 09:53 by Sherrill Morelos MD) Respiratory failure, [id number]-vioxmms (Acute) Hypoxemia (Acute) Discharge planning issues (Acute) DVT prophylaxis (Acute) CHF (congestive heart failure) (Chronic) Chronic vomiting (Chronic) Chronic diarrhea (Chronic) Nausea & vomiting (Acute) CKD (chronic kidney disease) (Chronic) Regurgitation of food (Acute) Renal insufficiency (Chronic) Symptomatic anemia (Acute) New onset a-fib (Acute) Anemia (Chronic) Immunoglobulin deficiency (Acute) Chronic pulmonary aspiration (Acute) Grief (Chronic) brother Nov 2020 Low-level of literacy (Chronic) Palliative care patient (Acute) Orthostatic hypotension (Acute) Acute congestive heart failure (Acute) NSTEMI (non-ST elevated myocardial infarction) (Acute) Shortness of breath (Acute) Syncope (Chronic) IDDM (insulin dependent diabetes mellitus) (Chronic) Hiatal hernia (Chronic) Renal insufficiency (Chronic) Functional encopresis (Chronic) Palliative care patient (Chronic) Pulmonary hypertension (Chronic) Chronic respiratory failure with hypoxia (Chronic) Advance directive on file (Acute) Long-term use of high-risk medication (Chronic 03/16/18) Interstitial lung disease (Acute 03/16/18) Pulm: Jedlovsky Gastroesophageal reflux disease without esophagitis (Chronic 03/16/18) Dyspnea (Chronic 03/16/18) Cognitive impairment (Chronic 03/16/18) Mild, w/Memory Loss Umbilical hernia (Chronic) Type II diabetes mellitus, uncontrolled (Chronic) Total urinary incontinence (Chronic) Medical History Abdominal pain Acute gastroenteritis (03/16/18) Acute kidney injury (nontraumatic) Acute pneumonitis SYD (acute kidney injury) Anosognosia Anxiety (03/16/18) Asthma Back pain Chest wall pain COPD (chronic obstructive pulmonary disease) Cough Cubital tunnel syndrome (03/16/18) Dehydration Depressive disorder Discharge planning issues DKA (diabetic ketoacidosis) DVT prophylaxis Edema (03/16/18) Encounter to establish care Essential hypertension (07/17/13) Fracture of humerus, proximal, left, closed (05/02/21) History of shingles (03/16/18) Hyperlipemia Inflammatory disorder of digestive tract Insulin dependent diabetes mellitus Internal derangement of right knee Medication monitoring encounter Metabolic acidosis with normal anion gap and bicarbonate losses Migraine (04/03/14) Nausea & vomiting Neck pain (03/16/18) 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 History of section Ligation of fallopian tube Thoracoscopic (R)Lung Bx (02/12/18) Family History Mother , aged 81 from dementia, per Elly Diabetes Essential hypertension CHF (congestive heart failure) Heart disease CHF/heart failure Dementia Father , aged 80 Diabetes Essential hypertension CAD (coronary artery disease) Heart disease [place] Hyperlipidemia Stroke Sister , aged 54 Diabetes Personal history of malignant neoplasm Lung Asthma Lung cancer Brother , of mesithelioma aged 62 Diabetes Essential hypertension Personal history of malignant neoplasm Lung, Prostate Hyperlipidemia Asthma Mesothelioma Brother , of PE following knee surgery age 69 Pulmonary embolus with infarction Daughter No problems noted. Son No problems noted. 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[employer] Pets and animals: Yes Pets and animals: cat(s) Sexually active: No Do you think of yourself as: straight/heterosexual Current gender identity: female What is your relationship status?: How often do you talk on the phone with friends or family?: three or more times per week How often do you get together with friends or relatives?: three or more times per week How often do you attend religion or tenriism services?: 1-3 times per year Do you belong to any clubs or organized social groups?: no Panel score (0-1 are the most socially isolated patients): 1 What type of physical activity do you participate in: none and sedentary lifestyle Duration: < 15 minutes/day Frequency: does not exercise Bibi/Zoroastrian: Faith Special bibi needs: No Agree to transfusion: Yes Seatbelt use: sometimes Helmet use: No Drive intox or ride w/intox mobile lounge driver: No Water heater temp set <120 deg: Yes Working smoke detector in home: Yes Fire extinguisher in home: Yes Carbon monox detector in home: Yes Do you feel safe at home: Yes Do you feel safe in your relationship?: Yes Victim of physical abuse: No Victim of emotional abuse: No Victim of sexual abuse: No Would you like helpful sources: No Additional Social history: Recently in the [facility] x 2 mos. Didn't feel she needed to be there. She reports was supposed to be a 2 week stay. She said she did all her own care. She says the staff is stretched thin. She can take care of herself at home just fine. She says her family is more worried about her than t hey need to be. Visit Medication and Allergies Active Medications Generic Name Dose Route Start Last Admin Trade Name Freq PRN Reason Stop Dose Admin Acetaminophen 650 mg 05/07/22 01:09 05/10/22 17:00 Acetaminophen 325 Mg Tab PO 650 mg Q4H PRN PRN Administration Al Hydrox/Mg Hydrox/Simethicone 30 ml 05/07/22 01:09 05/10/22 12:09 Mylanta Suspension 30 Ml Cup PO 30 ml Q2H PRN PRN Administration Albuterol Sulfate 2.5 mg 05/07/22 01:09 05/12/22 08:04 Albuterol 2.5 Mg/3 Ml Inh Soln Vial UPD 2.5 mg Q2H PRN PRN Administration Albuterol/Ipratropium 3 ml 05/07/22 02:00 05/13/22 07:46 Albuterol/Ipratropium 3 Ml Upd Vial UPD 3 ml Q6H ILSA Administration Atorvastatin Calcium 80 mg 05/07/22 20:00 05/12/22 20:14 Atorvastatin 40 Mg Tab PO 80 mg QPM ILSA Administration Benzonatate 200 mg 05/12/22 20:00 05/12/22 20:13 Benzonatate 100 Mg Cap PO 200 mg TID ILSA Administration Chlorphenir/Hydrocodone Polistirex 5 ml 05/12/22 19:22 Tussionex Susp PO BID PRN PRN Cyclobenzaprine HCl 5 mg 05/10/22 08:00 Cyclobenzaprine 10 Mg Tab PO DAILY PRN PRN muscle spasm Dextrose 0 gm 05/07/22 01:14 Glucose 40% Oral Solution 15 Gm/37.5 Gm Tube PO DIRECTED PRN Dextrose/Water 0 gm 05/07/22 01:14 Dextrose 50%-Water 25 Gm/50 Ml Syr IVP DIRECTED PRN Dimethicone/Zinc Oxide 0 gm 05/07/22 01:03 Debbie Protect Cream 142 Gm Tube TP PRN PRN Empagliflozin 10 mg 05/12/22 17:00 05/12/22 17:49 Empaglifozin 10 Mg Tab PO 10 mg QAM [facility] Administration Escitalopram Oxalate 20 mg 05/07/22 08:30 05/12/22 11:45 Escitalopram 20 Mg Tab PO 20 mg DAILY ILSA Administration Furosemide 40 mg 05/13/22 08:30 Furosemide 40 Mg Tab PO DAILY [facility] Heparin Sodium (Porcine) 5,000 units 05/07/22 06:00 05/13/22 06:11 Heparin 5,000 Units/Ml Vial SC 5,000 units Q8H [facility] Administration Sodium Chloride 500 mls @ 0 mls/hr 05/06/22 22:36 05/11/22 11:50 Saline 500ml Bag IV Infused PRN PRN Infusion As Directed IV Miscellaneous Supplies 1 each 05/06/22 22:45 Iv Access IV DIRECTED [facility] Insulin Aspart 0 units 05/12/22 20:30 05/12/22 22:05 Insulin Aspart 300 Units/3 Ml Pen SC 12 units 0700,1200,1700,2200 [facility] Administration Protocol Insulin Aspart 0 units 05/13/22 08:00 Insulin Aspart 300 Units/3 Ml Pen SC 0800,1200,1700 [facility] Insulin Glargine 15 units 05/12/22 22:00 05/12/22 23:06 Insulin Glargine 300 Units/3 Ml Pen SC 15 units HS [facility]SA Administration Lactobacillus Acidophilus/Casei 1 cap 05/07/22 08:30 05/12/22 20:13 L. Acidophilus, Casei, Rhamnosus Cap PO 1 cap BID ILSA Administration Levofloxacin 500 mg/ 750 mg 05/13/22 09:30 Levofloxacin 250 mg PO QAM [facility] Loperamide HCl 2 mg 05/09/22 10:18 Loperamide 2 Mg Cap PO Q6H PRN PRN loose stool Magnesium Oxide 800 mg 05/11/22 22:00 05/12/22 22:02 Magnesium Oxide 400 Mg Tab PO 800 mg BID@1030,2200 IL[facility] Administration Metoclopramide HCl 10 mg 05/11/22 22:00 05/12/22 22:03 Metoclopramide 10 Mg Tab PO 10 mg AC & HS ILSA Administration Metoprolol Tartrate 12.5 mg 05/07/22 08:30 05/12/22 20:24 Metoprolol 12.5 Mg Tab PO 12.5 mg BID ILSA Administration Midodrine 10 mg 05/07/22 08:30 05/12/22 20:24 Midodrine 2.5 Mg Tab PO 10 mg TID [facility] Administration Ondansetron HCl 4 mg 05/07/22 01:40 05/10/22 10:27 Ondansetron 4 Mg/2 Ml Vial IVP 4 mg Q6H PRN PRN Administration Pt's Own Nintedanib 1 each 05/09/22 20:00 05/10/22 08:16 (Ofev) 150 Mg Cap PO Not Given BID [facility] Prednisone 40 mg 05/13/22 08:30 Prednisone 20 Mg Tab PO DAILY [facility] Psyllium Hydrophilic Mucilloid 1 each 05/11/22 20:00 05/12/22 20:15 Psyllium Pkt PO 1 each BID [facility] Administration Sodium Chloride 0 ml 05/06/22 22:36 05/11/22 11:59 Normal Saline Flush 10 Ml Syr IVP 10 ml PRN PRN Administration Sodium Chloride 50 ml 05/12/22 22:45 05/12/22 22:42 Normal Saline 250 Ml Bag IJ 250 ml DIRECTED [facility] Administration Spironolactone 25 mg 05/13/22 08:30 Spironolactone 25 Mg Tab PO DAILY [facility] Allergies aspirin Allergy (Unknown, Verified 05/06/22 17:03) HIVES, flip out diclofenac Allergy (Unknown, Verified 05/06/22 17:03) RASH latex Allergy (Unknown, Verified 05/06/22 17:03) SKIN BREAKDOWN NSAIDS (Non-Steroidal Anti-Inflamma Allergy (Unknown, Verified 05/06/22 17:03) HIVES, VOMITING morphine Adverse Reaction (Unknown, Verified 05/06/22 17:03) VOMITING Exam Narrative Exam Narrative: Gen: NAD, normal respiratory effort, well-nourished HENT: PERRL, nasal turbinates normal without erythema or inflammation, moist oral mucosa, Mallampati 2, No LAD or JVD Chest: No respiratory distress, normal appearance of chest, clear to auscultation bilaterally, bilateral fine crackles or wheezes, normal inspiratory effort Heart: regular rate and rhythym, no murmurs, rubs or gallops Abdomen: Non-distended, soft, non tender Extremities: No clubbing, edema, cyanosis, rashes Neuro: AAOx3 , non focal Psych: cooperative, appropriate mental affect Results Last Vital Signs Temp 36.9 C 05/13/22 07:39 Pulse 90 05/13/22 07:46 Resp 30 H 05/13/22 07:39 BP 110/66 05/13/22 07:39 Pulse Ox 95 05/13/22 07:46 Labs Result diagrams: 05/13/22 06:39 05/13/22 06:39 Labs: Laboratory Results - last 24 hr 05/10/22 05/11/22 05/13/22 06:13 11:00 06:39 WBC 12.68 H RBC 3.05 L Hgb 10.1 L Hct 30.5 L MCV 100 H MCH 33.1 H MCHC 33.1 RDW 14.6 Plt Count 329 MPV 10.4 Sodium Potassium Chloride Carbon Dioxide Anion Gap BUN Creatinine Estimated GFR/1.73 m2 Glucose Calcium NT-Pro-B Natriuret Pep Stool Description Not Applicable Stool Ova & Parasites SEE BELOW Endomysial IgA Ab Negative 05/13/22 06:39 WBC RBC Hgb Hct MCV MCH MCHC RDW Plt Count MPV Sodium 139 Potassium 4.8 Chloride 103 Carbon Dioxide 27.7 Anion Gap 8.3 BUN 25 H Creatinine 1.5 H Estimated GFR/1.73 m2 34.33 Glucose 295 H Calcium 9.4 NT-Pro-B Natriuret Pep 6624 H Stool Description Stool Ova & Parasites Endomysial IgA Ab Imaging Chest x-ray: report reviewed and image reviewed Abdomen CT scan report/results: report reviewed CT scan - chest: report reviewed and image reviewed
[2022-05-13 09:45] LABS: BE -4 mmol/L (-2-3); HCO3 21 mmol/L (22-26); pCO2 36 mmHg (35-45); pH 7.37 (7.35-7.45); pO2 95 mmHg (80-105); sO2 96 % (95-98); tCO2 20 mmol/L (23-27)
[2022-05-13 09:47] LABS: Site Right Radial
[2022-05-13 09:48] LABS: FIO2L 15 L
[2022-05-13] MEDS: Midodrine 2.5 MG TAB 10 MG PO ×3 (11:21→21:04)
[2022-05-13] MEDS: Metoprolol 12.5 MG TAB PO ×2 (11:22→21:04)
[2022-05-13] MEDS: Magnesium Oxide 400 MG TAB 800 MG PO ×2 (11:22→21:02)
[2022-05-13] MEDS: Furosemide 40 MG TAB PO (11:22)
[2022-05-13] MEDS: Empaglifozin 10 MG TAB PO (11:22)
[2022-05-13] MEDS: Escitalopram 20 MG TAB PO (11:23)
[2022-05-13] MEDS: Benzonatate 100 MG CAP 200 MG PO ×3 (11:23→21:01)
[2022-05-13] MEDS: Metoclopramide 10 MG TAB PO ×3 (11:23→21:03)
[2022-05-13] MEDS: Spironolactone 25 MG TAB PO (11:23)
[2022-05-13] MEDS: Insulin Aspart 300 UNITS/3 ML PEN SC ×6 (11:24→21:05)
[2022-05-13] MEDS: Psyllium PKT 1 EACH PO (11:27)
--- NOTE | 2022-05-13 11:52 | OT.INNT ---
Occupational Therapy Notes 05/13/22 Pt denied OT services today reporting that she is not feeling well. Trinidad Philip, OTR/L
--- NOTE | 2022-05-13 12:11 | INPN_ITS ---
Date of service: 05/13/22 Time of Service: 12:11 PT Notes Visit Reasons: Dehydration,Acute Gastroenteritis Inpatient Physical Therapy Progress Note Date: 05/13/22 Dates of Service: through 05/13/2022 Precautions: Activity as tolerated. Standard. Fall. Subjective: Cautious about how much movement she does. Gets SOB right away. Anxiety increases when SOB sets in. Objective: Seated at edge of chair Mental Status: Well oriented alert pleasant female, who appears of stated age in no current acute distress. Pain:? 1-2/10 through right shoulder ROM: Right Upper Extremity:? WFL Left Upper Extremity:? ? Limited to 60 degrees of shoulder flexion and 40 degrees of abduction, elbow ROM WNL Right Lower Extremity: WFL Left Lower Extremity: ? WFL Strength: Right Upper Extremity: ? Globally 4/5 Left Upper Extremity: ? Shoulder flexion 2-/5, biceps 3-/5, triceps 4/5, Right Lower Extremity: Globally 4-/5 Left Lower Extremity: ? Globally 4-/5 Bed Mobility/Transfers: Sit-stand: contact guard assist stand-sit: minimal assist Gait: 5 steps forward and 5 steps back with desaturation to 85% despite oxygen supplementation. Minimal assist provided. Re-saturated back to 92% after about 5 minutes of rest and deep breathing exercises. Perfusion index on oxygen saturation machine works better when clip is placed on the L ear. Able to put weight on the L UE. Special Tests: Mobility Limitations Standardized Measure [facility] AM-PAC 6 clicks Basic Mobility Inpatient Short Form: Raw Score: 15? CMS Score:? 56.46% deficit Informed Consent/Education:? Patient instructed in purpose of PT consult and plan of care. ASSESSMENT: Pulmonary fibrosis progression leading to hypoxemia, suspected IBD with chroninc diarrhea, L shoulder pain from previous rTSA, nausea and vomiting have all limited patient participation and progress for this week. Patient desaturates quickly and rebounds back slowly with the smallest of movement. Activity tolerance remains poor. TRANSPORT SPECIALIST brought up issue with repeated falls and therefore issue about a possible trauma to L shoulder prosthesis has been brought to care team. X-ray on 05/12/2022 shows: Left shoulder reverse prosthesis appears intact.? No fracture or loosening evident. Patient presents with clinical signs and symptoms consistent with current/admitting diagnoses that have resulted to mobility limitations, gait instability, generalized weakness, and overall ADL decline as demonstrated by the following impairment level findings: 1. Decreased strength to L shoulder major muscle groups 2. Impaired standing balance 3. Impaired activity tolerance 4. Limitation of joint range of motion in L shoulder 5. Shortness of breath with desaturation to the low 80s with a few steps 6. Pain in L shoulder Impairments are contributing to the following functional limitations: 1. Decline in bed mobility skills 2. Decline in transfer skills 3. Difficulty with ambulation without assistive device and physical assistance 4. Increased completion time for mobility ADL performance 5. Increased risk for falls 6. Difficulty with managing steps alone safely Patient is assessed as a 41100 high complexity based on the following: History: 71-year-old female with past medical history as indicated above Examination: Demonstrable impairment in strength, balance, and mobility level with underlying impairments and functional limitations as exhibited above as well as deficit score of 54% utilizing the [facility] Mobility Inpatient Short Form Presentation: Evolving Decision Makin high complexity Decision Making: Goals: Goals X1 week 1. Supine-Sit? Independent NOT MET, CONTINUE 2. Sit-Supine? Independent NOT MET, CONTINUE 3. Sit-Stand? Independent NOT MET, CONTINUE 4. Stand-Sit ? Independent NOT MET, CONTINUE 5. Bed-Chair? Independent NOT MET, CONTINUE 6. Gait Independent up to 300 feet with least restrictive assisted device NOT MET, CONTINUE Plan of Care/Treatment Plan: 1-2x/day, 7 days/week x 1 week. Increase up to BID to increase activity tolerance and mobility level. Continue to manage L rTSA for increased use of L UE. Plan of care has been reviewed with the TRANSPORT SPECIALIST providing the service under Physical Therapy direction. Continue Physical Therapy intervention for strengthening, bed mobility, transfers, gait, stairs, balance training, use of assistive device. DISCHARGE RECOMMENDATIONS: ( ) ? Home with no services (? ) ? Home with services [specify] (? ) ? Home with outpatient PT (? ) ? SNF for continued rehabilitation (? ) ? [facility] (? ) ? SNF versus LTC based on ability to participate and progress ( X ) SNF vs HH PT based on progress made towards goals TREATMENT CODE/TIME: 66292 x 18 minutes beginning at 12:11 PM. Thank you for the opportunity to participate in the care of this patient. Iva Roldan PT, DPT, CLT [facility] [place], [place]
--- NOTE | 2022-05-13 13:42 | PDOC.CMPRO ---
- If Service Date Differs Date of service: 05/13/22 Time of Service: 13:42 Care Management Progress Note S/O: Elly remains inpatient at this time, her family is present in the room visiting. CM continues to follow. Differing MD opinions on reason for diarrhea; Hospitalist believes this is a result of OFEV as when the medication was stopped, the diarrhea stopped. Pulmonogist is not convinced OFEV is causing diarrhea and would like the medication restarted; refer to their notes for further information. Elly reported to her family that discussion of ventilation this morning was causing concerned worry and she wanted family present to discuss CODE STATUS. Jorge Luis, Guardian and [facility] will be consulted regarding decision making. CM provided contact info for Jorge Luis to Dr. Carrizales who outreached to Jorge Luis this morning. Clinical coordinator feels Elly may require ventilation by this weekend, MD reports that though Elly is on 6L O2, he feels she is improving and this can be reduced. [place] House Operator requested home CPAP be delivered, family brought to hospital at request. Palliative consult today; Margi KIM will discuss above with Elly and Jorge Luis. A: 71 year old female admitted to [facility] 05/07/22 for dehydration, acute gastroenteritis P: Anticipate Elly will return home when ready per MD with new orders for [facility] RN/PT if recommended. Elly will transport via [facility], coordinated by CM or with family. CM continues to follow. - Guardianship if Applicable Guardianship: Other (Grandson, Jorge Luis Zepeda )
[2022-05-13 14:52] LABS: Procalcitonin 0.5 ng/mL
--- NOTE | 2022-05-13 15:02 | W.PALPGNOTE ---
Date of service: 05/13/22 Time of Service: 15:03 Assessment and Plan Assessment and plan (1) Palliative care patient: Status: Acute Assessment and plan: Continue to follow outpatient, established with Dr. Vaughn. Need for COLST review w/guardian Jorge Luis. He wants her to have a good quality of life, discussed that her CODE status will need to be reviewed in the future. Pt has had several presentations to ED and inpatient, is well known to CM; h/o SNF placement. She declines SNF placement today. Jorge Luis has questions about further testing and surgery. Recommend that they get through this acute illness and reassess. Discussed that baseline is often reset after hospitalization. Recommend continuing to focus on quality of life. Follow up outpatient with Dr. Vaughn, her established Palliative care provider. (2) Chronic diarrhea: Status: Chronic Assessment and plan: Improved with stopping OFEV. Jorge Luis questions if she should remain off. No plans to restart during this hospitalization. Jorge Luis will discuss with Dr. Vaughn. (3) Cognitive impairment: Status: Chronic Assessment and plan: guardian established. Jorge Luis verbalizes frustration that the ED did not know he was her guardian and was going to send her home when admission was indicated. (4) Nausea & vomiting: Status: Acute Assessment and plan: Improved. (5) Pulmonary fibrosis: Status: Deleted Assessment and plan: Ofev on hold for now. Subjective Subjective Interval history since last seen: Elly was seen by Palliative earlier this admission. They discussed CODE status. She wished to remain a FULL CODE at that time. Her grandson, Jorge Luis, contacted Palliative care and wanted her to be seen again. Elly was in her room alone at the time of the visit. She reports that she is feeling better than she was at the time of admission. Discussed CODE status. She maintains that she wants to remain a FULL CODE. She wants her daughter to be able to come see her. Reinforced that there are no immediate plans for intubation at this time. She reports that she has a lot of support at home. Jorge Luis fills her medication box and she has people come in to help with bathing and housekeeping. Spoke with Jorge Luis via phone, he is clear that he wants her to have a good quality of life. He does not think that having diarrhea for weeks is a good quality of life. He questions what the benefit of staying on OFEV is and if it is worth the potential side effects. There is question of whether the OFEV is causing diarrhea or not. He will discuss further with Dr. Vaughn who is Elly's established Palliative care provider. He will also discuss whether it is of benefit for her to undergo more testing and potentially surgery in the future with Dr. Vaughn. Exam Narrative Exam Narrative: General: elderly female, laying in the hospital bed with HOB elevated. She appears fatigued. She engages in conversation and answers questions appropriately. HEENT: normocephalic, atraumatic, EOMI, mm moist. Neck: supple, no JVD. Respiratory: wearing oxymask, appears SOB with talking. GI: soft, nondistended, nontender on palpation. Extremities: moves all 4 extremities, no edema. Objective Last Vital Signs Temp 36.9 C 05/13/22 07:39 Pulse 90 05/13/22 07:46 Resp 30 H 05/13/22 07:39 BP 110/66 05/13/22 07:39 Pulse Ox 95 05/13/22 07:46 Laboratory Results - last 24 hr 05/10/22 05/11/22 05/12/22 06:13 11:00 00:32 WBC RBC Hgb Hct MCV MCH MCHC RDW Plt Count MPV ABG Sample Site ABG pH ABG pCO2 ABG pO2 ABG HCO3 ABG Total CO2 ABG O2 Saturation ABG Base Excess Oxygen Liter Flow Sodium Potassium Chloride Carbon Dioxide Anion Gap BUN Creatinine Estimated GFR/1.73 m2 Glucose Calcium NT-Pro-B Natriuret Pep Procalcitonin Stool Description Not Applicable Stool Campylobacter PCR Negative Stool Salmonella PCR Negative Stool Shigella PCR Negative Stool Ova & Parasites SEE BELOW Endomysial IgA Ab Negative Shiga Toxin (PCR) Negative 05/13/22 05/13/22 05/13/22 06:39 06:39 09:40 WBC 12.68 H RBC 3.05 L Hgb 10.1 L Hct 30.5 L MCV 100 H MCH 33.1 H MCHC 33.1 RDW 14.6 Plt Count 329 MPV 10.4 ABG Sample Site Right Radial ABG pH 7.37 ABG pCO2 36 ABG pO2 95 ABG HCO3 21 L ABG Total CO2 20 L ABG O2 Saturation 96 ABG Base Excess -4 L Oxygen Liter Flow 15 Sodium 139 Potassium 4.8 Chloride 103 Carbon Dioxide 27.7 Anion Gap 8.3 BUN 25 H Creatinine 1.5 H Estimated GFR/1.73 m2 34.33 Glucose 295 H Calcium 9.4 NT-Pro-B Natriuret Pep 6624 H Procalcitonin Stool Description Stool Campylobacter PCR Stool Salmonella PCR Stool Shigella PCR Stool Ova & Parasites Endomysial IgA Ab Shiga Toxin (PCR) 05/13/22 14:10 WBC RBC Hgb Hct MCV MCH MCHC RDW Plt Count MPV ABG Sample Site ABG pH ABG pCO2 ABG pO2 ABG HCO3 ABG Total CO2 ABG O2 Saturation ABG Base Excess Oxygen Liter Flow Sodium Potassium Chloride Carbon Dioxide Anion Gap BUN Creatinine Estimated GFR/1.73 m2 Glucose Calcium NT-Pro-B Natriuret Pep Procalcitonin 0.5 Stool Description Stool Campylobacter PCR Stool Salmonella PCR Stool Shigella PCR Stool Ova & Parasites Endomysial IgA Ab Shiga Toxin (PCR)
--- NOTE | 2022-05-13 15:40 | PHA.REVIEW ---
Pharmacy Admission Review - Admission Clinical Review (Last Reviewed 05/10/22 @ 17:27 by Sherie Earl NP) Respiratory failure, [id number] (Acute) Hypoxemia (Acute) Discharge planning issues (Acute) DVT prophylaxis (Acute) Nausea & vomiting (Acute) Chronic pulmonary aspiration (Acute) Palliative care patient (Acute) Interstitial lung disease (Acute 03/16/18) aspirin Allergy (Unknown, Verified 05/06/22 17:03) HIVES, flip out diclofenac Allergy (Unknown, Verified 05/06/22 17:03) RASH latex Allergy (Unknown, Verified 05/06/22 17:03) SKIN BREAKDOWN NSAIDS (Non-Steroidal Anti-Inflamma Allergy (Unknown, Verified 05/06/22 17:03) HIVES, VOMITING morphine Adverse Reaction (Unknown, Verified 05/06/22 17:03) VOMITING Resuscitation Status Full Code Height 4 ft 11 in Weight 73 kg - Renal Dosing Renal Dosing: BUN 25 mg/dL (7-18) H 05/13/22 06:39 Creatinine 1.5 mg/dL (0.55-1.02) H 05/13/22 06:39 Medications needing adjustments: Reviewed (crcl = 30 (using adj BW). consider metoclopramide dose adjustment (10 mg TID) or alternative med (recommended max dose 30 mg for crlc <60) (dose just increased from 5 mg to 10 mg AC HS for better effect)) - Anticoagulation Anticoagulation: Hgb 10.1 g/dL (11.2-15.7) L 05/13/22 06:39 Hct 30.5 % (36.0-46.0) L 05/13/22 06:39 Plt Count 329 10^3/uL (130-400) 05/13/22 06:39 Creatinine 1.5 mg/dL (0.55-1.02) H 05/13/22 06:39 DVT Prophylaxis: Reviewed Medications: Heparin (heparin 5000 units q8h) - Opiate Usage Evaluate Pain Scale/Pains Meds: Reviewed (tussionex ordered, hasn't received any) - Relevant Labs Sodium 139 mmol/L (136-145) 05/13/22 06:39 Potassium 4.8 mmol/L (3.5-5.1) 05/13/22 06:39 Chloride 103 mmol/L (98-107) 05/13/22 06:39 Magnesium 1.9 mg/dL (1.8-2.4) 05/11/22 06:38 C-Reactive Protein 1.22 mg/dL (0.0-0.3) H 05/08/22 06:05 Electrolytes, C-Reactive P, ESR: Reviewed (CRP elevated) - DM Control DM Control: Glucose 295 mg/dL (74-106) H 05/13/22 06:39 Finger Stick Blood Glucose 365 Finger Stick Blood Glucose 365 Finger Stick Blood Glucose 365 Finger Stick Blood Glucose 365 Finger Stick Blood Glucose 294 Finger Stick Blood Glucose 294 Insulin Dosing: Reviewed (on insulin aspart (sliding scale plus 1 unit per 10 g CHO) and glargine (uses both at home). blood glucose not well controlled) - Heart Failure/SC Heart Failure/SC: Troponin I < 50 ng/L (<or=60) 05/06/22 17:47 NT-Pro-B Natriuret Pep 6624 pg/mL (<300) H 05/13/22 06:39 EF%, DAYANARA's, B-Blockers, Diuretics: Reviewed (BNP elevated) - BP Control BP Control: Blood Pressure 114/53 Blood Pressure 110/66 If elevated: N/A - Qtc Review If Elevated: Reviewed (QTc = 458) - IV to PO Switch IV Medications: N/A - Home Meds Home Med List reviewed: Reviewed - Current meds Current Medication Order Review: Reviewed
--- NOTE | 2022-05-13 17:41 | W.SPSTP ---
Date of service: 05/13/22 Time of Service: 17:41 Subjective Contacted Elly at her bedside just after her dinner meal. Her grandson/DPOA was present for the end of the session and participated in education. Patient is now on HFNC oxygen and pulmonary has been consulted. Elly reports baseline coughing throughout the day. Objective/Assessment/Plan Objective Treatment Techniques & Outcomes: Goals: 1. Patient & family will demonstrate or verbalize understanding of education x1 related to normal vs disordered swallow function, aspiration precautions and risk management strategies including oral care and reflux precautions, overt s/sx to monitor for aspiration, and relationship between respiratory and swallow function.? IN PROGRESS: Provided education and counseling regarding aspiration and reflux management strategies including timing/volume of PO intake, positional factors, diet factors, oral care and swallow strategies. Patient & grandson verbalized understanding. Handouts provided regarding respiration&swallowing, oral care, and reflux management. 2. Patient will tolerate level 6 soft/bite size solids and 0- thin liquids with use of swallow recommendations as below within 1 week. IN PROGRESS: Not directly addressed this date, patient had finished dinner at the time of this visit. She reports no coughing WHILE swallowing, but does continue to report regurgitation on a regular basis as well as esophageal stasis. Provided review of recommendations. Patient's RN also reporting no overt difficulty with pills or meals noted this date (aside from regurgitation). Assessment Patient continues to report regurgitation with / after meals. She is now on HFNC. Continued concern for reflux aspiration. Provided education this date to reinforce prior recommendations given to patient in addition to family education. Patient likely to require assistance to follow these recommendations at home. Jorge Luis is very motivated to help her incorporate these recommendations at home and very receptive to all education. 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 Recommendations Total Time Spent: 25 minutes CPT 00280 Coding
[2022-05-13] MEDS: Atorvastatin 40 MG TAB 80 MG PO (21:00)
[2022-05-13] MEDS: Amoxicillin 875/Clav. 125 TAB PO (21:00)
[2022-05-13] MEDS: Insulin Glargine 300 UNITS/3 ML PEN 15 UNITS SC (21:06)
[2022-05-13 21:51] LABS: Calprotectin 83.5 mcg/g
[2022-05-14] VITALS (10 sets, daily range): BP systolic 100–116; BP diastolic 64–73; PULSE 82–114; RESP 2–36; TEMP 31–37.4; O2SAT 79–98
[2022-05-14] MEDS: Albuterol/Ipratropium 3 ML UPD VIAL UPD ×4 (01:04→21:36)
[2022-05-14] MEDS: Heparin 5,000 UNITS/ML VIAL 5000 UNITS SC ×3 (06:00→21:36)
[2022-05-14] MEDS: Empaglifozin 10 MG TAB PO (08:03)
[2022-05-14] MEDS: Amoxicillin 875/Clav. 125 TAB PO (08:03)
[2022-05-14] MEDS: Spironolactone 25 MG TAB PO (08:03)
[2022-05-14] MEDS: Metoclopramide 10 MG TAB PO ×4 (08:03→21:35)
[2022-05-14] MEDS: Metoprolol 12.5 MG TAB PO ×2 (08:03→21:34)
[2022-05-14] MEDS: Escitalopram 20 MG TAB PO (08:03)
[2022-05-14] MEDS: Furosemide 40 MG TAB PO (08:03)
[2022-05-14] MEDS: Benzonatate 100 MG CAP 200 MG PO (08:04)
[2022-05-14] MEDS: Insulin Aspart 300 UNITS/3 ML PEN SC ×7 (08:05→21:37)
[2022-05-14] MEDS: Midodrine 2.5 MG TAB 10 MG PO ×3 (08:45→21:34)
[2022-05-14] MEDS: Benzonatate 200 MG CAP PO (08:46)
--- NOTE | 2022-05-14 09:17 | PT.INTREAT ---
PT Notes Visit Reasons: Dehydration,Acute Gastroenteritis Inpatient Physical Therapy Treatment Note [facility] Date: 05/14/22 PRECAUTIONS: SUBJECTIVE: Pt reports that she is not feeling well today. She states that last night she had stomach issues and also vomiting. She states that she doesn't feel well this am either. Pt's reports that he roxygen has been low and it took 2 nurses to get her to the commode because she was shaking and not feeling well. OBJECTIVE: Manual Therapy ([id number]) Pt recieved AAROM into shoulder flexion, scaption, and abd. Pt recived brief STM throughout the upper trap. THEREX: Pt completed ankle pumps.Pt refused OOB and most exercise due to not feeling well today. ASSESSMENT: Pt was not feeling well today and not able to tolerate PT well. PLAN: Cont as per PT POC as per yaya. TREATMENT CODE/TIME: MTx1 (10) 9:05-9:15
--- NOTE | 2022-05-14 09:39 | W.PM.PROGNOT ---
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 Currently on Augmentin for possible aspiration pneumonia superimposed on her IPF. We will convert her Augmentin to IV antibiotic and try to convert as many of her oral medications to a parenteral form in order to reduce her risk for aspiration. All of her feedings should be supervised and she should be sitting up in a chair for her feedings. Professional time spent interviewing and examining patient, discussion of goals of care with hospital team (care management, nursing and consulting professionals) was 30 minutes. (2) Pulmonary fibrosis: Status: Deleted Assessment and plan: Ofev was held and her diarrhea got better but when we restarted her Ofev her diarrhea returned. Dr. Morelos's not convinced that her diarrhea is secondary to the Ofev although when you review the literature Ofev causes diarrhea and 62 to 76% of patients in nausea and vomiting in 24 to 32%. We will continue to hold her Ofev while she is an inpatient. (3) Chronic diarrhea: Status: Chronic Assessment and plan: CT of the abdomen/pelvis, as read by our radiologist, suggests possible IBD or chronic colonic ischemia. I have put her Ofev on hold and her diarrhea has improved. I do not think that her diarrrhea is d/t IBD but is d/t her Ofev. That is not to say she can't have both. Certainly the CT findings can not be explained by her Ofev. I think at this point her lung disease is too severe and precludes any upper or lower endoscopy. (4) Nausea & vomiting: Status: Acute Assessment and plan: Again multifactorial including side effect of Ofev however I think the bigger issue is her presbyesophagus causing stasis within the esophagus which then leads to her having reflux and coughing spells. (5) Inflammatory bowel disease: Status: Suspected Assessment and plan: Inflammatory markers for IBD were negative (6) CKD (chronic kidney disease): Status: Chronic Assessment and plan: As above. Cr better than baseline. (7) Type II diabetes mellitus, uncontrolled: Status: Chronic Assessment and plan: Continue basal bolus insulin, SSi. I have adde Jardiance for her HFPEF but this should also help w/ her DM. I have added Lantus 15 units nightly and added CHO coverage. Qualifiers: Glycemic state: with hyperglycemia Qualified Code(s): E11.65 - Type 2 diabetes mellitus with hyperglycemia (8) CHF (congestive heart failure): Status: Chronic Assessment and plan: Chronic, diastolic as well as a mild R-sided component/pulmonary hypertension. I have resumed her home dose of her diuretics (spironolactone and lasix) now that her diarrhea has resolved. montior her renal function/electrolytes (9) DVT prophylaxis: Status: Acute Assessment and plan: SC heparin (10) Discharge planning issues: Status: Acute Assessment and plan: After conversation with her grandson Jorge Luis in the presence of the patient the patient and her grandson made a joint decision that she would rather be comfortable and put through heroic life support in the event of respiratory failure or cardiac arrest. Based on this conversation of change her CODE STATUS to DNR/DNI. Her grandson inquired about when to involve hospice and I told him that we could involve hospice at any time. Subjective Subjective Interval history since last seen: Patient has had recurrent episodic hypoxemic spells associated with paroxysms of coughing and aspiration. Earlier this morning she got down into the low 60s on her SPO2 and it took quite a while for her to recover. She is now on 60 L/min and currently hold her SPO2 at 88 to 90%. I discussed her chronic conditions with her and her grandson Jorge Luis. I have explained that her pulmonary fibrosis is not going to get any better and that is being complicated by her esophageal dysmotility which is leading to recurrent aspiration. I also explained the futility of performing a full code with CPR and intubation and that this is not can change the long-term outcome of her chronic conditions. Explained that were doing what he can to treat possible aspiration pneumonia with antibiotics but I am recommending that we move more towards comfort measures. Her grandson Jorge Luis did express an interest in involving hospice. Patient herself would like to be around long enough to see her family who are now in town. Exam Narrative Exam Narrative: Elly is sitting up in bed in a 60 degree angle. She is alert and oriented to person place time and circumstance and she is able to make her own decisions. She just recovered from recent hypoxemic event. Skin is clammy Lungs with fine rales bilaterally Heart is regular rate and rhythm Abdomen soft nontender nondistended Extremities without edema Objective Last Vital Signs Temp 37.3 C 05/14/22 07:05 Pulse 100 H 05/14/22 07:58 Resp 24 05/14/22 07:58 BP 116/64 05/14/22 07:05 Pulse Ox 95 05/14/22 07:58 Laboratory Results - last 24 hr 05/12/22 05/13/22 05/13/22 00:32 09:40 14:10 ABG Sample Site Right Radial ABG pH 7.37 ABG pCO2 36 ABG pO2 95 ABG HCO3 21 L ABG Total CO2 20 L ABG O2 Saturation 96 ABG Base Excess -4 L Oxygen Liter Flow 15 Procalcitonin 0.5 Stool Campylobacter PCR Negative Stool Salmonella PCR Negative Stool Shigella PCR Negative Shiga Toxin (PCR) Negative Reviewed Pertinent PMH: Yes
[2022-05-14] MEDS: Magnesium Oxide 400 MG TAB 800 MG PO ×2 (10:17→21:35)
[2022-05-14] MEDS: Normal Saline Flush 10 ML SYR IVP ×2 (11:05→21:34)
[2022-05-14] MEDS: ACETAMINOPHEN 1,000 MG/100 ML BTL 400 MG IVPB ×2 (11:05→17:40)
[2022-05-14] MEDS: AMPICILLIN/SULBACTAM 3 GM in Normal Saline 100 ML IVPB (21:36)
[2022-05-14] MEDS: Insulin Glargine 300 UNITS/3 ML PEN 15 UNITS SC (21:38)
[2022-05-15] VITALS (8 sets, daily range): BP systolic 115; BP diastolic 70; PULSE 81–90; RESP 2–33; TEMP 31–36.4; O2SAT 96–100
[2022-05-15] MEDS: ACETAMINOPHEN 1,000 MG/100 ML BTL 400 MG IVPB ×3 (01:32→17:35)
[2022-05-15] MEDS: Albuterol/Ipratropium 3 ML UPD VIAL UPD ×4 (01:32→20:36)
[2022-05-15] MEDS: Normal Saline Flush 10 ML SYR IVP ×2 (01:32→17:37)
[2022-05-15] MEDS: Heparin 5,000 UNITS/ML VIAL 5000 UNITS SC ×2 (05:45→14:24)
[2022-05-15 07:17] LABS: HCT 30.7 % (36.0-46.0); HGB 9.8 g/dL (11.2-15.7); MCH 32.2 pg (27.0-33.0); MCHC 31.9 % (32.0-36.0); MCV 101 fL (80-95); MPV 10.6 fL (8.0-11.0); Platelet Count 352 10^3/uL (130-400); RBC 3.04 10^6/uL (3.93-5.22); RDW 14.5 % (11.7-14.6); RDW-SD 53.1 fL; WBC 11.28 10^3/uL (4.4-10.8)
[2022-05-15] MEDS: Metoclopramide 10 MG TAB PO ×2 (07:45→11:53)
[2022-05-15] MEDS: Spironolactone 25 MG TAB PO (07:45)
[2022-05-15] MEDS: Metoprolol 12.5 MG TAB PO ×2 (07:45→20:36)
[2022-05-15] MEDS: AMPICILLIN/SULBACTAM 3 GM in Normal Saline 100 ML IVPB (07:45)
[2022-05-15] MEDS: Escitalopram 20 MG TAB PO (07:45)
[2022-05-15] MEDS: Furosemide 40 MG TAB PO (07:45)
[2022-05-15] MEDS: Empaglifozin 10 MG TAB PO (07:45)
[2022-05-15] MEDS: Midodrine 2.5 MG TAB 10 MG PO (07:45)
[2022-05-15] MEDS: Insulin Aspart 300 UNITS/3 ML PEN SC ×7 (07:46→21:50)
--- NOTE | 2022-05-15 08:21 | RESPIRATORY ---
Pt was getting cleaned up and repositioned in bed when SpO2 dropped down to 70%. Pt was on 60L / 74% FiO2 on the Heated High-Flow System when this happened. Pt was able to recover to >90% SpO2 after 10 minutes of rest with no movement.
--- NOTE | 2022-05-15 08:56 | PT.INNT ---
PT Notes Visit Reasons: Dehydration,Acute Gastroenteritis Pt refused today's treatment stating she does not feel well again today her breathing is the most bothersome.
[2022-05-15] MEDS: Magnesium Oxide 400 MG TAB 800 MG PO (09:05)
--- NOTE | 2022-05-15 13:01 | PGE_ITS ---
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 I discontinued most of her oral medications. She is still receiving IV Unasyn for possible aspiration event but she is not spiking any fe vers. I will check a procalcitonin level and if it is normal we will discontinue her IV antibiotics. Family and patient removing towards comfort measures. Professional time spent interviewing and examining patient, discussion of goals of care with hospital team (care management, nursing and consulting professionals) was 30 minutes. (2) Pulmonary fibrosis: Status: Deleted Assessment and plan: Ofev is on hold given her nausea vomiting and diarrhea. Since being off the Ofev her diarrhea has improved. Continue supportive care with high flow oxygen. (3) Chronic diarrhea: Status: Chronic Assessment and plan: CT of the abdomen/pelvis, as read by our radiologist, suggests possible IBD or chronic colonic ischemia. Patient is not a candidate for EGD or C-scope given the severity of her lung disease. Antibodies for inflammatory disease including endomysial IgA antibody, tissue transglutaminase IgG IgA were negative. Antigliadin IgA and IgG were negative. Calprotectin was indeterminat at 83.5.. Stools for Campylobacter Salmonella Shigella were negative. (4) Nausea & vomiting: Status: Acute Assessment and plan: Again multifactorial including side effect of Ofev however I think the bigger issue is her presbyesophagus causing stasis within the esophagus which then leads to her having reflux and coughing spells. (5) Inflammatory bowel disease: Status: Suspected Assessment and plan: Inflammatory markers for IBD were negative (6) CKD (chronic kidney disease): Status: Chronic Assessment and plan: As above. Cr better than baseline. (7) Type II diabetes mellitus, uncontrolled: Status: Chronic Assessment and plan: Continue basal bolus insulin, SSi. Qualifiers: Glycemic state: with hyperglycemia Qualified Code(s): E11.65 - Type 2 diabetes mellitus with hyperglycemia (8) CHF (congestive heart failure): Status: Chronic Assessment and plan: Chronic, diastolic as well as a mild R-sided component/pulmonary hypertension. I have resumed her home dose of her diuretics (spironolactone and lasix) now that her diarrhea has resolved. montior her renal function/electrolytes (9) DVT prophylaxis: Status: Acute Assessment and plan: SC heparin (10) Discharge planning issues: Status: Acute Assessment and plan: After conversation with her grandson Jorge Luis in the presence of the patient the pa sarath and her grandson made a joint decision that she would rather be comfortable and put through heroic life support in the event of respiratory failure or cardiac arrest. Based on this conversation of change her CODE STATUS to DNR/DNI. Her grandson inquired about when to involve hospice and I told him that we could involve hospice at any time. Hospice will see the patient tomorrow. Patient will going comfort measures. Subjective Subjective Interval history since last seen: Elly seems for fatigued and tired. Still has a cough that is nonproductive. She does not appear to be in any acute distress but just appears to be worn out. She has no chest pain. Nausea is better today. Exam Narrative Exam Narrative: Obese elderly female who appears fatigued but is alert and answers questions appropriately. Neck is obese but no overt JVD Lungs with coarse diffuse bilateral rales no rhonchi Heart is regular no appreciable murmur rub Abdomen is obese nontender to palpation normal bowel sounds Extremities without peripheral edema or cyanosis. Objective Last Vital Signs Temp 36.4 C L 05/15/22 07:31 Pulse 86 05/15/22 12:49 Resp 24 05/15/22 12:49 BP 115/70 05/15/22 07:31 Pulse Ox 97 05/15/22 12:49 Laboratory Results - last 24 hr 05/11/22 05/15/22 11:00 06:35 WBC 11.28 H RBC 3.04 L Hgb 9.8 L Hct 30.7 L MCV 101 H MCH 32.2 MCHC 31.9 L RDW 14.5 Plt Count 352 MPV 10.6 Stool Calprotectin 83.5 H
--- NOTE | 2022-05-15 13:47 | CMPROGNOTE_ITS ---
- If Service Date Differs Date of service: 05/15/22 Time of Service: 13:47 Care Management Progress Note Per MD order, CM emailed José Antonio, RN at [facility] to request hospice consult for Elly and her grandson and guardian, Jorge Luis. CM notified of need for hi/nader O2 to determine if this can be supplied by [facility]. CM also faxed notification to [facility] with above information noted. - Guardianship if Applicable Guardianship: Other (Jorge Luis Alcocer )
--- NOTE | 2022-05-15 18:58 | RESPIRATORY ---
Pt has her own ResMed AirSense II Auto CPAP machine. Min 11 / Max 16, no O2 bleed in at home. DME: [employer]. Mouth mask with integrated nasal pillows. Pt refuses to wear her own home machine. States that it feels like it's choking her, and that she hasn't used it at home for at least 6+ months.
[2022-05-15] MEDS: Insulin Glargine 300 UNITS/3 ML PEN 20 UNITS SC (21:51)
[2022-05-16] MEDS: Ondansetron 4 MG/2 ML VIAL IVP (07:21)
[2022-05-16] MEDS: Normal Saline Flush 10 ML SYR IVP (07:23)
[2022-05-16 07:28] LABS: Legionella Ag Detection Urine Negative (Negative)
[2022-05-16 07:52] VITALS: PULSE 100; RESP 8; O2SAT 92
[2022-05-16] MEDS: Albuterol/Ipratropium 3 ML UPD VIAL UPD (07:52)
[2022-05-16 07:54] VITALS: TEMP 31
[2022-05-16 08:22] VITALS: RESP 8
--- NOTE | 2022-05-16 09:14 | PGE_ITS ---
Assessment and Plan Assessment and plan (1) Respiratory failure, [id number]: Status: Acute (2) CHF (congestive heart failure): Status: Chronic (3) Chronic vomiting: Status: Chronic (4) Chronic diarrhea: Status: Chronic (5) CKD (chronic kidney disease): Status: Chronic (6) Chronic pulmonary aspiration: Status: Acute Qualifiers: Encounter type: subsequent encounter Qualified Code(s): T17.908D - Unspecified foreign body in respiratory tract, part unspecified causing other injury, subsequent encounter (7) Interstitial lung disease: Status: Acute Assessment and plan: This is a 71 yo with progressive unspecified ILD on OFEV with chronic aspiration, chronic vomiting and diarrhea, acute on chronic hypoxic respiratory failure, RODRIGO on CPAP, and who is currently being worked up for an immunodeficiency. Her care plan has shifted now to a comfort only plan. Given this, we should only continue meds that would provide some symptomatic relief. Currently that just includes her Duonebs, which I would continue as QID as opposed to q6h to avoid awakening her. Unspecified progressive ILD - can discontinue OFEV given comfort care Acute on Chronic Hypoxic respiratory failure - titrate saturations to comfort (>90%) Chronic aspiration - palliative diet - no restrictions as patient requests General Date Of Service Date of service: 05/16/22 Time of Service: 08:30 Reason for Consult: Hypoxia Subjective Note Note: Elly is feeling ok today. Her care has shifted to a comfort based plan and the plan is for her to go home with hospice. Exam Narrative Exam Narrative: Gen: NAD, normal respiratory effort, well-nourished HENT: PERRL Chest: No respiratory distress, normal appearance of chest, clear to auscultation bilaterally,bibasilar crackles Heart: regular rate and rhythym, no murmurs, rubs or gallops Abdomen: Non-distended, soft, non tender Extremities: No clubbing, + edema, cyanosis, rashes Neuro: AAOx3 , non focal Psych: cooperative, appropriate mental affect Objective Last Vital Signs Temp 36.4 C L 05/15/22 07:31 Pulse 100 H 05/16/22 07:52 Resp 24 05/15/22 12:49 BP 115/70 05/15/22 07:31 Pulse Ox 92 05/16/22 07:52 Laboratory Results - last 24 hr 05/14/22 14:20 Urine Legionella Ag Negative Results Medications Medications: Active Medications Generic Name Dose Route Start Last Admin Trade Name Freq PRN Reason Stop Dose Admin Acetaminophen 650 mg 05/14/22 09:55 Acetaminophen 650 Mg Supp ME Q4H PRN PRN Al Hydrox/Mg Hydrox/Simethicone 30 ml 05/07/22 01:09 05/10/22 12:09 Mylanta Suspension 30 Ml Cup PO 30 ml Q2H PRN PRN Administration Albuterol Sulfate 2.5 mg 05/07/22 01:09 05/12/22 08:04 Albuterol 2.5 Mg/3 Ml Inh Soln Vial UPD 2.5 mg Q2H PRN PRN Administration Albuterol/Ipratropium 3 ml 05/07/22 02:00 05/16/22 07:52 Albuterol/Ipratropium 3 Ml Upd Vial UPD 3 ml Q6H ILSA Administration Alcohol/Yerba Lianet 0 ml 05/15/22 21:22 Mouthkote Oral Moisturizer 60 Ml [place] MM Q2H PRN PRN Dryness Carboxymethylcellulose Sodium 2 each 05/15/22 21:22 Refresh Plus Eye Drops 0.4ml OU PRN PRN Dry/itchy eyes Dextrose 0 gm 05/07/22 01:14 Glucose 40% Oral Solution 15 Gm/37.5 Gm Tube PO DIRECTED PRN Dextrose/Water 0 gm 05/07/22 01:14 Dextrose 50%-Water 25 Gm/50 Ml Syr IVP DIRECTED PRN Dimethicone/Zinc Oxide 0 gm 05/07/22 01:03 Debbie Protect Cream 142 Gm Tube TP PRN PRN Glycopyrrolate 0 mg 05/15/22 21:22 Glycopyrrolate 0.2 Mg/1 Ml Vial IVP Q2H PRN PRN Sodium Chloride 500 mls @ 0 mls/hr 05/06/22 22:36 05/11/22 11:50 Saline 500ml Bag IV Infused PRN PRN Infusion As Directed Acetaminophen 1,000 mg in 100 mls @ 400 mls/hr 05/14/22 10:00 05/16/22 02:05 Ofirmev IVPB Not Given Q8H ILSA Promethazine HCl 6.25 mg/ 50.25 mls @ 200 mls/hr 05/15/22 14:52 Sodium Chloride IVPB Q4H PRN PRN Morphine Sulfate 500 mg/ 100 mls @ 0.2 mls/hr 05/15/22 15:15 05/15/22 15:46 Device/ Sodium Chloride SC INF 1 mg/hr INFUSION ILSA 0.2 mls/hr Administration Protocol 1 MG/HR Promethazine HCl 25 mg/ Sodium 51 mls @ 200 mls/hr 05/15/22 21:22 Chloride IVPB Q4H PRN PRN IV Miscellaneous Supplies 1 each 05/06/22 22:45 Iv Access IV DIRECTED [facility] Lorazepam 0.5 - 1 mg 05/15/22 21:22 Lorazepam 20 Mg/10 Ml Vial IV/SC Q1H PRN PRN Anxiety Multi-Ingredient Supplement 1 ounce 05/15/22 20:00 05/16/22 07:22 Protein Nutritional Supplement 16 Gm 1 Ounce Packet PO Not Given BID [facility] Ondansetron HCl 4 mg 05/07/22 01:40 05/16/22 07:21 Ondansetron 4 Mg/2 Ml Vial IVP 4 mg Q6H PRN PRN Administration Pt's Own Nintedanib 1 each 05/09/22 20:00 05/10/22 08:16 (Ofev) 150 Mg Cap PO Not Given BID [facility] Promethazine HCl 25 mg 05/15/22 21:22 Promethazine 25 Mg Supp ME Q6H PRN PRN Nausea Sodium Chloride 0 ml 05/06/22 22:36 05/16/22 07:23 Normal Saline Flush 10 Ml Syr IVP 20 ml PRN PRN Administration Sodium Chloride 50 ml 05/12/22 22:45 05/12/22 22:42 Normal Saline 250 Ml Bag IJ 250 ml DIRECTED [facility] Administration Allergies aspirin Allergy (Unknown, Verified 05/06/22 17:03) HIVES, flip out diclofenac Allergy (Unknown, Verified 05/06/22 17:03) RASH latex Allergy (Unknown, Verified 05/06/22 17:03) SKIN BREAKDOWN NSAIDS (Non-Steroidal Anti-Inflamma Allergy (Unknown, Verified 05/06/22 17:03) HIVES, VOMITING morphine Adverse Reaction (Unknown, Verified 05/06/22 17:03) VOMITING Labs Result Diagrams: 05/15/22 06:35 05/13/22 06:39 Labs: Laboratory Tests Range/Units 05/06/22 05/06/22 05/06/22 17:47 17:47 17:47 WBC (4.4-10.8) 10^3/uL 13.66 H RBC (3.93-5.22) 10^6/uL 4.57 Hgb (11.2-15.7) g/dL 14.9 Hct (36.0-46.0) % 45.3 MCV (80-95) fL 99 H MCH (27.0-33.0) pg 32.6 MCHC (32.0-36.0) % 32.9 RDW (11.7-14.6) % 13.9 Plt Count (130-400) 10^3/uL 436 H MPV (8.0-11.0) fL 9.7 Immature Gran % 0.3 Neutrophils % 70.7 Lymphocytes % 19.0 Monocytes % 4.9 Eosinophils % 4.6 Basophils % 0.5 Nucleated RBC % (0.0-0.3) % 0.0 Absolute Neutrophils (1.2-6.7) 10^3/uL 9.66 H Absolute Lymphocytes (1.2-3.4) 10^3/uL 2.60 Absolute Monocytes (0.1-0.8) 10^3/uL 0.67 Absolute Eosinophils (0.0-0.7) 10^3/uL 0.63 Absolute Basophils (0.0-0.2) 10^3/uL 0.07 RBC Morphology ABG Sample Site ABG pH (7.35-7.45) ABG pCO2 (35-45) mmHg ABG pO2 (80-105) mmHg ABG HCO3 (22-26) mmol/L ABG Total CO2 (23-27) mmol/L ABG O2 Saturation (95-98) % ABG Base Excess (-2-3) mmol/L VBG pH (7.31-7.41) VBG pCO2 (41-51) mmHg VBG pO2 mmHg VBG HCO3 (23-28) mmol/L VBG Total CO2 (24-29) mmol/L VBG O2 Saturation % VBG Base Excess (-2-3) mmol/L VBG Lactate (0.6-1.4) mmol/L 2.3 H* Oxygen Liter Flow L Sodium (136-145) mmol/L 139 Potassium (3.5-5.1) mmol/L 4.9 Chloride (98-107) mmol/L 99 Carbon Dioxide (21.0-32.0) mmol/L 28.0 Anion Gap (3-11) mmol/L 12.0 H BUN (7-18) mg/dL 30 H Creatinine (0.55-1.02) mg/dL 1.7 H Estimated GFR/1.73 m2 (mL/min/1.73m2) 29.71 Glucose (74-106) mg/dL 117 H Calcium (8.5-10.1) mg/dL 9.8 Magnesium (1.8-2.4) mg/dL 2.7 H Total Bilirubin (0.2-1.0) mg/dL 0.6 AST (15-37) U/L 31 ALT (14-59) U/L 24 Alkaline Phosphatase (46-116) U/L 116 Troponin I (<or=60) ng/L < 50 C-Reactive Protein (0.0-0.3) mg/dL NT-Pro-B Natriuret Pep (<300) pg/mL Total Protein (6.4-8.2) g/dL 8.6 H Albumin (3.4-5.0) g/dL 4.1 Procalcitonin ng/mL TSH Stool Description Stool Calprotectin mcg/g Stool Campylobacter PCR (Negative) Stl C.difficile Tox PCR (Negative) Stool Salmonella PCR (Negative) Stool Shigella PCR (Negative) Stool Ova & Parasites Endomysial IgA Ab (Negative) Tiss Transglutamin IgG U/mL Tiss Transglutamin IgA U/mL Gliadin (Deamidat) IgG U Gliadin (Deamidat) IgA U COVID-19 Source SARS-CoV-2 (PCR) (Negative) Urine Legionella Ag (Negative) Shiga Toxin (PCR) (Negative) Add-On Test Request Range/Units 05/06/22 05/06/22 05/07/22 17:47 21:39 00:30 WBC (4.4-10.8) 10^3/uL RBC (3.93-5.22) 10^6/uL Hgb (11.2-15.7) g/dL Hct (36.0-46.0) % MCV (80-95) fL MCH (27.0-33.0) pg MCHC (32.0-36.0) % RDW (11.7-14.6) % Plt Count (130-400) 10^3/uL MPV (8.0-11.0) fL Immature Gran % Neutrophils % Lymphocytes % Monocytes % Eosinophils % Basophils % Nucleated RBC % (0.0-0.3) % Absolute Neutrophils (1.2-6.7) 10^3/uL Absolute Lymphocytes (1.2-3.4) 10^3/uL Absolute Monocytes (0.1-0.8) 10^3/uL Absolute Eosinophils (0.0-0.7) 10^3/uL Absolute Basophils (0.0-0.2) 10^3/uL RBC Morphology ABG Sample Site ABG pH (7.35-7.45) ABG pCO2 (35-45) mmHg ABG pO2 (80-105) mmHg ABG HCO3 (22-26) mmol/L ABG Total CO2 (23-27) mmol/L ABG O2 Saturation (95-98) % ABG Base Excess (-2-3) mmol/L VBG pH (7.31-7.41) 7.33 VBG pCO2 (41-51) mmHg 55 H VBG pO2 mmHg 24 VBG HCO3 (23-28) mmol/L 29 H VBG Total CO2 (24-29) mmol/L 26 VBG O2 Saturation % 41 VBG Base Excess (-2-3) mmol/L 3 VBG Lactate (0.6-1.4) mmol/L 0.9 Oxygen Liter Flow L Sodium (136-145) mmol/L Potassium (3.5-5.1) mmol/L Chloride (98-107) mmol/L Carbon Dioxide (21.0-32.0) mmol/L Anion Gap (3-11) mmol/L BUN (7-18) mg/dL Creatinine (0.55-1.02) mg/dL Estimated GFR/1.73 m2 (mL/min/1.73m2) Glucose (74-106) mg/dL Calcium (8.5-10.1) mg/dL Magnesium (1.8-2.4) mg/dL Total Bilirubin (0.2-1.0) mg/dL AST (15-37) U/L ALT (14-59) U/L Alkaline Phosphatase (46-116) U/L Troponin I (<or=60) ng/L C-Reactive Protein (0.0-0.3) mg/dL NT-Pro-B Natriuret Pep (<300) pg/mL Total Protein (6.4-8.2) g/dL Albumin (3.4-5.0) g/dL Procalcitonin ng/mL TSH Stool Description Stool Calprotectin mcg/g Stool Campylobacter PCR (Negative) Stl C.difficile Tox PCR (Negative) Stool Salmonella PCR (Negative) Stool Shigella PCR (Negative) Stool Ova & Parasites Endomysial IgA Ab (Negative) Tiss Transglutamin IgG U/mL Tiss Transglutamin IgA U/mL Gliadin (Deamidat) IgG U Gliadin (Deamidat) IgA U COVID-19 Source Nasal/Nares SARS-CoV-2 (PCR) (Negative) Negative Urine Legionella Ag (Negative) Shiga Toxin (PCR) (Negative) Add-On Test Request Range/Units 05/07/22 05/07/22 05/07/22 06:15 06:15 06:15 WBC (4.4-10.8) 10^3/uL 12.73 H RBC (3.93-5.22) 10^6/uL 3.93 Hgb (11.2-15.7) g/dL 12.6 D Hct (36.0-46.0) % 39.4 MCV (80-95) fL 100 H MCH (27.0-33.0) pg 32.1 MCHC (32.0-36.0) % 32.0 RDW (11.7-14.6) % 13.6 Plt Count (130-400) 10^3/uL MPV (8.0-11.0) fL Immature Gran % 0.3 Neutrophils % 66.2 Lymphocytes % 22.5 Monocytes % 6.2 Eosinophils % 4.3 Basophils % 0.5 Nucleated RBC % (0.0-0.3) % 0.0 Absolute Neutrophils (1.2-6.7) 10^3/uL 8.43 H Absolute Lymphocytes (1.2-3.4) 10^3/uL 2.86 Absolute Monocytes (0.1-0.8) 10^3/uL 0.79 Absolute Eosinophils (0.0-0.7) 10^3/uL 0.55 Absolute Basophils (0.0-0.2) 10^3/uL 0.06 RBC Morphology Normal ABG Sample Site ABG pH (7.35-7.45) ABG pCO2 (35-45) mmHg ABG pO2 (80-105) mmHg ABG HCO3 (22-26) mmol/L ABG Total CO2 (23-27) mmol/L ABG O2 Saturation (95-98) % ABG Base Excess (-2-3) mmol/L VBG pH (7.31-7.41) VBG pCO2 (41-51) mmHg VBG pO2 mmHg VBG HCO3 (23-28) mmol/L VBG Total CO2 (24-29) mmol/L VBG O2 Saturation % VBG Base Excess (-2-3) mmol/L VBG Lactate (0.6-1.4) mmol/L Oxygen Liter Flow L Sodium (136-145) mmol/L 140 Potassium (3.5-5.1) mmol/L 4.4 Chloride (98-107) mmol/L 102 Carbon Dioxide (21.0-32.0) mmol/L 26.8 Anion Gap (3-11) mmol/L 11.2 H BUN (7-18) mg/dL 24 H Creatinine (0.55-1.02) mg/dL 1.4 H Estimated GFR/1.73 m2 (mL/min/1.73m2) 37.18 Glucose (74-106) mg/dL 82 Calcium (8.5-10.1) mg/dL 9.1 Magnesium (1.8-2.4) mg/dL 2.3 Total Bilirubin (0.2-1.0) mg/dL 0.6 AST (15-37) U/L 26 ALT (14-59) U/L 22 Alkaline Phosphatase (46-116) U/L 95 Troponin I (<or=60) ng/L C-Reactive Protein (0.0-0.3) mg/dL NT-Pro-B Natriuret Pep (<300) pg/mL Total Protein (6.4-8.2) g/dL 7.0 Albumin (3.4-5.0) g/dL 3.4 Procalcitonin ng/mL TSH Cancelled 3.72 Stool Description Stool Calprotectin mcg/g Stool Campylobacter PCR (Negative) Stl C.difficile Tox PCR (Negative) Stool Salmonella PCR (Negative) Stool Shigella PCR (Negative) Stool Ova & Parasites Endomysial IgA Ab (Negative) Tiss Transglutamin IgG U/mL Tiss Transglutamin IgA U/mL Gliadin (Deamidat) IgG U Gliadin (Deamidat) IgA U COVID-19 Source SARS-CoV-2 (PCR) (Negative) Urine Legionella Ag (Negative) Shiga Toxin (PCR) (Negative) Add-On Test Request Range/Units 05/07/22 05/07/22 05/07/22 06:15 06:15 20:35 WBC (4.4-10.8) 10^3/uL RBC (3.93-5.22) 10^6/uL Hgb (11.2-15.7) g/dL Hct (36.0-46.0) % MCV (80-95) fL MCH (27.0-33.0) pg MCHC (32.0-36.0) % RDW (11.7-14.6) % Plt Count (130-400) 10^3/uL MPV (8.0-11.0) fL Immature Gran % Neutrophils % Lymphocytes % Monocytes % Eosinophils % Basophils % Nucleated RBC % (0.0-0.3) % Absolute Neutrophils (1.2-6.7) 10^3/uL Absolute Lymphocytes (1.2-3.4) 10^3/uL Absolute Monocytes (0.1-0.8) 10^3/uL Absolute Eosinophils (0.0-0.7) 10^3/uL Absolute Basophils (0.0-0.2) 10^3/uL RBC Morphology ABG Sample Site ABG pH (7.35-7.45) ABG pCO2 (35-45) mmHg ABG pO2 (80-105) mmHg ABG HCO3 (22-26) mmol/L ABG Total CO2 (23-27) mmol/L ABG O2 Saturation (95-98) % ABG Base Excess (-2-3) mmol/L VBG pH (7.31-7.41) VBG pCO2 (41-51) mmHg VBG pO2 mmHg VBG HCO3 (23-28) mmol/L VBG Total CO2 (24-29) mmol/L VBG O2 Saturation % VBG Base Excess (-2-3) mmol/L VBG Lactate (0.6-1.4) mmol/L Oxygen Liter Flow L Sodium (136-145) mmol/L Potassium (3.5-5.1) mmol/L Chloride (98-107) mmol/L Carbon Dioxide (21.0-32.0) mmol/L Anion Gap (3-11) mmol/L BUN (7-18) mg/dL Creatinine (0.55-1.02) mg/dL Estimated GFR/1.73 m2 (mL/min/1.73m2) Glucose (74-106) mg/dL Calcium (8.5-10.1) mg/dL Magnesium (1.8-2.4) mg/dL Total Bilirubin (0.2-1.0) mg/dL AST (15-37) U/L ALT (14-59) U/L Alkaline Phosphatase (46-116) U/L Troponin I (<or=60) ng/L C-Reactive Protein (0.0-0.3) mg/dL NT-Pro-B Natriuret Pep (<300) pg/mL Total Protein (6.4-8.2) g/dL Albumin (3.4-5.0) g/dL Procalcitonin ng/mL 0.4 TSH Stool Description Stool Calprotectin mcg/g Stool Campylobacter PCR (Negative) Stl C.difficile Tox PCR (Negative) Negative Stool Salmonella PCR (Negative) Stool Shigella PCR (Negative) Stool Ova & Parasites Endomysial IgA Ab (Negative) Tiss Transglutamin IgG U/mL Tiss Transglutamin IgA U/mL Gliadin (Deamidat) IgG U Gliadin (Deamidat) IgA U COVID-19 Source SARS-CoV-2 (PCR) (Negative) Urine Legionella Ag (Negative) Shiga Toxin (PCR) (Negative) Add-On Test Request DONE Range/Units 05/08/22 05/08/22 05/08/22 06:05 06:05 06:05 WBC (4.4-10.8) 10^3/uL 13.03 H RBC (3.93-5.22) 10^6/uL 3.44 L Hgb (11.2-15.7) g/dL 11.2 Hct (36.0-46.0) % 33.8 L MCV (80-95) fL 98 H MCH (27.0-33.0) pg 32.6 MCHC (32.0-36.0) % 33.1 RDW (11.7-14.6) % 14.0 Plt Count (130-400) 10^3/uL 330 MPV (8.0-11.0) fL 9.8 Immature Gran % 0.5 Neutrophils % 67.3 Lymphocytes % 19.4 Monocytes % 7.6 Eosinophils % 4.7 Basophils % 0.5 Nucleated RBC % (0.0-0.3) % 0.0 Absolute Neutrophils (1.2-6.7) 10^3/uL 8.77 H Absolute Lymphocytes (1.2-3.4) 10^3/uL 2.53 Absolute Monocytes (0.1-0.8) 10^3/uL 0.99 H Absolute Eosinophils (0.0-0.7) 10^3/uL 0.61 Absolute Basophils (0.0-0.2) 10^3/uL 0.07 RBC Morphology ABG Sample Site ABG pH (7.35-7.45) ABG pCO2 (35-45) mmHg ABG pO2 (80-105) mmHg ABG HCO3 (22-26) mmol/L ABG Total CO2 (23-27) mmol/L ABG O2 Saturation (95-98) % ABG Base Excess (-2-3) mmol/L VBG pH (7.31-7.41) VBG pCO2 (41-51) mmHg VBG pO2 mmHg VBG HCO3 (23-28) mmol/L VBG Total CO2 (24-29) mmol/L VBG O2 Saturation % VBG Base Excess (-2-3) mmol/L VBG Lactate (0.6-1.4) mmol/L Oxygen Liter Flow L Sodium (136-145) mmol/L 140 Potassium (3.5-5.1) mmol/L 4.4 Chloride (98-107) mmol/L 104 Carbon Dioxide (21.0-32.0) mmol/L 26.3 Anion Gap (3-11) mmol/L 9.7 BUN (7-18) mg/dL 22 H Creatinine (0.55-1.02) mg/dL 1.2 H Estimated GFR/1.73 m2 (mL/min/1.73m2) 44.41 Glucose (74-106) mg/dL 169 H Calcium (8.5-10.1) mg/dL 9.4 Magnesium (1.8-2.4) mg/dL 1.8 Total Bilirubin (0.2-1.0) mg/dL AST (15-37) U/L ALT (14-59) U/L Alkaline Phosphatase (46-116) U/L Troponin I (<or=60) ng/L C-Reactive Protein (0.0-0.3) mg/dL 1.22 H NT-Pro-B Natriuret Pep (<300) pg/mL Total Protein (6.4-8.2) g/dL Albumin (3.4-5.0) g/dL Procalcitonin ng/mL TSH Stool Description Stool Calprotectin mcg/g Stool Campylobacter PCR (Negative) Stl C.difficile Tox PCR (Negative) Stool Salmonella PCR (Negative) Stool Shigella PCR (Negative) Stool Ova & Parasites Endomysial IgA Ab (Negative) Tiss Transglutamin IgG U/mL Tiss Transglutamin IgA U/mL Gliadin (Deamidat) IgG U Gliadin (Deamidat) IgA U COVID-19 Source SARS-CoV-2 (PCR) (Negative) Urine Legionella Ag (Negative) Shiga Toxin (PCR) (Negative) Add-On Test Request Range/Units 05/08/22 05/08/22 05/09/22 16:16 Unknown 06:33 WBC (4.4-10.8) 10^3/uL RBC (3.93-5.22) 10^6/uL Hgb (11.2-15.7) g/dL Hct (36.0-46.0) % MCV (80-95) fL MCH (27.0-33.0) pg MCHC (32.0-36.0) % RDW (11.7-14.6) % Plt Count (130-400) 10^3/uL MPV (8.0-11.0) fL Immature Gran % Neutrophils % Lymphocytes % Monocytes % Eosinophils % Basophils % Nucleated RBC % (0.0-0.3) % Absolute Neutrophils (1.2-6.7) 10^3/uL Absolute Lymphocytes (1.2-3.4) 10^3/uL Absolute Monocytes (0.1-0.8) 10^3/uL Absolute Eosinophils (0.0-0.7) 10^3/uL Absolute Basophils (0.0-0.2) 10^3/uL RBC Morphology ABG Sample Site ABG pH (7.35-7.45) ABG pCO2 (35-45) mmHg ABG pO2 (80-105) mmHg ABG HCO3 (22-26) mmol/L ABG Total CO2 (23-27) mmol/L ABG O2 Saturation (95-98) % ABG Base Excess (-2-3) mmol/L VBG pH (7.31-7.41) VBG pCO2 (41-51) mmHg VBG pO2 mmHg VBG HCO3 (23-28) mmol/L VBG Total CO2 (24-29) mmol/L VBG O2 Saturation % VBG Base Excess (-2-3) mmol/L VBG Lactate (0.6-1.4) mmol/L 1.0 Oxygen Liter Flow L Sodium (136-145) mmol/L 141 Potassium (3.5-5.1) mmol/L 4.1 Chloride (98-107) mmol/L 106 Carbon Dioxide (21.0-32.0) mmol/L 28.7 Anion Gap (3-11) mmol/L 6.3 BUN (7-18) mg/dL 17 Creatinine (0.55-1.02) mg/dL 1.3 H Estimated GFR/1.73 m2 (mL/min/1.73m2) 40.49 Glucose (74-106) mg/dL 181 H Calcium (8.5-10.1) mg/dL 9.3 Magnesium (1.8-2.4) mg/dL 1.7 L Total Bilirubin (0.2-1.0) mg/dL AST (15-37) U/L ALT (14-59) U/L Alkaline Phosphatase (46-116) U/L Troponin I (<or=60) ng/L C-Reactive Protein (0.0-0.3) mg/dL NT-Pro-B Natriuret Pep (<300) pg/mL Total Protein (6.4-8.2) g/dL Albumin (3.4-5.0) g/dL Procalcitonin ng/mL TSH Stool Description Stool Calprotectin mcg/g Stool Campylobacter PCR (Negative) Stl C.difficile Tox PCR (Negative) Stool Salmonella PCR (Negative) Stool Shigella PCR (Negative) Stool Ova & Parasites Endomysial IgA Ab (Negative) Tiss Transglutamin IgG U/mL Tiss Transglutamin IgA U/mL Gliadin (Deamidat) IgG U Gliadin (Deamidat) IgA U COVID-19 Source SARS-CoV-2 (PCR) (Negative) Urine Legionella Ag (Negative) Shiga Toxin (PCR) (Negative) Add-On Test Request DONE Range/Units 05/09/22 05/10/22 05/10/22 06:33 06:13 06:13 WBC (4.4-10.8) 10^3/uL 9.38 RBC (3.93-5.22) 10^6/uL 3.21 L Hgb (11.2-15.7) g/dL 10.4 L Hct (36.0-46.0) % 32.4 L MCV (80-95) fL 101 H MCH (27.0-33.0) pg 32.4 MCHC (32.0-36.0) % 32.1 RDW (11.7-14.6) % 14.0 Plt Count (130-400) 10^3/uL 285 MPV (8.0-11.0) fL 9.4 Immature Gran % 0.3 Neutrophils % 68.7 Lymphocytes % 16.8 Monocytes % 6.2 Eosinophils % 7.5 Basophils % 0.5 Nucleated RBC % (0.0-0.3) % 0.0 Absolute Neutrophils (1.2-6.7) 10^3/uL 6.44 Absolute Lymphocytes (1.2-3.4) 10^3/uL 1.58 Absolute Monocytes (0.1-0.8) 10^3/uL 0.58 Absolute Eosinophils (0.0-0.7) 10^3/uL 0.70 Absolute Basophils (0.0-0.2) 10^3/uL 0.05 RBC Morphology ABG Sample Site ABG pH (7.35-7.45) ABG pCO2 (35-45) mmHg ABG pO2 (80-105) mmHg ABG HCO3 (22-26) mmol/L ABG Total CO2 (23-27) mmol/L ABG O2 Saturation (95-98) % ABG Base Excess (-2-3) mmol/L VBG pH (7.31-7.41) VBG pCO2 (41-51) mmHg VBG pO2 mmHg VBG HCO3 (23-28) mmol/L VBG Total CO2 (24-29) mmol/L VBG O2 Saturation % VBG Base Excess (-2-3) mmol/L VBG Lactate (0.6-1.4) mmol/L Oxygen Liter Flow L Sodium (136-145) mmol/L 140 Potassium (3.5-5.1) mmol/L 3.6 Chloride (98-107) mmol/L 103 Carbon Dioxide (21.0-32.0) mmol/L 28.0 Anion Gap (3-11) mmol/L 9.0 BUN (7-18) mg/dL 14 Creatinine (0.55-1.02) mg/dL 1.3 H Estimated GFR/1.73 m2 (mL/min/1.73m2) 40.49 Glucose (74-106) mg/dL 239 H Calcium (8.5-10.1) mg/dL 8.7 Magnesium (1.8-2.4) mg/dL 1.5 L Total Bilirubin (0.2-1.0) mg/dL AST (15-37) U/L ALT (14-59) U/L Alkaline Phosphatase (46-116) U/L Troponin I (<or=60) ng/L C-Reactive Protein (0.0-0.3) mg/dL NT-Pro-B Natriuret Pep (<300) pg/mL Total Protein (6.4-8.2) g/dL Albumin (3.4-5.0) g/dL Procalcitonin ng/mL TSH Stool Description Stool Calprotectin mcg/g Stool Campylobacter PCR (Negative) Stl C.difficile Tox PCR (Negative) Stool Salmonella PCR (Negative) Stool Shigella PCR (Negative) Stool Ova & Parasites Endomysial IgA Ab (Negative) Negative Tiss Transglutamin IgG U/mL <1.2 Tiss Transglutamin IgA U/mL <1.2 Gliadin (Deamidat) IgG U <10.0 Gliadin (Deamidat) IgA U <10.0 COVID-19 Source SARS-CoV-2 (PCR) (Negative) Urine Legionella Ag (Negative) Shiga Toxin (PCR) (Negative) Add-On Test Request Range/Units 05/10/22 05/11/22 05/11/22 06:13 06:38 11:00 WBC (4.4-10.8) 10^3/uL 10.55 RBC (3.93-5.22) 10^6/uL 3.10 L Hgb (11.2-15.7) g/dL 10.3 L Hct (36.0-46.0) % 30.8 L MCV (80-95) fL 99 H MCH (27.0-33.0) pg 33.2 H MCHC (32.0-36.0) % 33.4 RDW (11.7-14.6) % 14.1 Plt Count (130-400) 10^3/uL 303 MPV (8.0-11.0) fL 10.1 Immature Gran % 0.4 Neutrophils % 74.7 Lymphocytes % 11.8 Monocytes % 6.5 Eosinophils % 6.0 Basophils % 0.6 Nucleated RBC % (0.0-0.3) % 0.0 Absolute Neutrophils (1.2-6.7) 10^3/uL 7.88 H Absolute Lymphocytes (1.2-3.4) 10^3/uL 1.25 Absolute Monocytes (0.1-0.8) 10^3/uL 0.69 Absolute Eosinophils (0.0-0.7) 10^3/uL 0.63 Absolute Basophils (0.0-0.2) 10^3/uL 0.06 RBC Morphology ABG Sample Site ABG pH (7.35-7.45) ABG pCO2 (35-45) mmHg ABG pO2 (80-105) mmHg ABG HCO3 (22-26) mmol/L ABG Total CO2 (23-27) mmol/L ABG O2 Saturation (95-98) % ABG Base Excess (-2-3) mmol/L VBG pH (7.31-7.41) VBG pCO2 (41-51) mmHg VBG pO2 mmHg VBG HCO3 (23-28) mmol/L VBG Total CO2 (24-29) mmol/L VBG O2 Saturation % VBG Base Excess (-2-3) mmol/L VBG Lactate (0.6-1.4) mmol/L Oxygen Liter Flow L Sodium (136-145) mmol/L 137 Potassium (3.5-5.1) mmol/L 4.5 Chloride (98-107) mmol/L 102 Carbon Dioxide (21.0-32.0) mmol/L 27.4 Anion Gap (3-11) mmol/L 7.6 BUN (7-18) mg/dL 13 Creatinine (0.55-1.02) mg/dL 1.3 H Estimated GFR/1.73 m2 (mL/min/1.73m2) 40.49 Glucose (74-106) mg/dL 310 H Calcium (8.5-10.1) mg/dL 8.7 Magnesium (1.8-2.4) mg/dL 1.9 Total Bilirubin (0.2-1.0) mg/dL AST (15-37) U/L ALT (14-59) U/L Alkaline Phosphatase (46-116) U/L Troponin I (<or=60) ng/L C-Reactive Protein (0.0-0.3) mg/dL NT-Pro-B Natriuret Pep (<300) pg/mL Total Protein (6.4-8.2) g/dL Albumin (3.4-5.0) g/dL Procalcitonin ng/mL TSH Stool Description Stool Calprotectin mcg/g 83.5 H Stool Campylobacter PCR (Negative) Stl C.difficile Tox PCR (Negative) Stool Salmonella PCR (Negative) Stool Shigella PCR (Negative) Stool Ova & Parasites Endomysial IgA Ab (Negative) Tiss Transglutamin IgG U/mL Tiss Transglutamin IgA U/mL Gliadin (Deamidat) IgG U Gliadin (Deamidat) IgA U COVID-19 Source SARS-CoV-2 (PCR) (Negative) Urine Legionella Ag (Negative) Shiga Toxin (PCR) (Negative) Add-On Test Request Range/Units 05/11/22 05/12/22 05/13/22 11:00 00:32 06:39 WBC (4.4-10.8) 10^3/uL 12.68 H RBC (3.93-5.22) 10^6/uL 3.05 L Hgb (11.2-15.7) g/dL 10.1 L Hct (36.0-46.0) % 30.5 L MCV (80-95) fL 100 H MCH (27.0-33.0) pg 33.1 H MCHC (32.0-36.0) % 33.1 RDW (11.7-14.6) % 14.6 Plt Count (130-400) 10^3/uL 329 MPV (8.0-11.0) fL 10.4 Immature Gran % Neutrophils % Lymphocytes % Monocytes % Eosinophils % Basophils % Nucleated RBC % (0.0-0.3) % Absolute Neutrophils (1.2-6.7) 10^3/uL Absolute Lymphocytes (1.2-3.4) 10^3/uL Absolute Monocytes (0.1-0.8) 10^3/uL Absolute Eosinophils (0.0-0.7) 10^3/uL Absolute Basophils (0.0-0.2) 10^3/uL RBC Morphology ABG Sample Site ABG pH (7.35-7.45) ABG pCO2 (35-45) mmHg ABG pO2 (80-105) mmHg ABG HCO3 (22-26) mmol/L ABG Total CO2 (23-27) mmol/L ABG O2 Saturation (95-98) % ABG Base Excess (-2-3) mmol/L VBG pH (7.31-7.41) VBG pCO2 (41-51) mmHg VBG pO2 mmHg VBG HCO3 (23-28) mmol/L VBG Total CO2 (24-29) mmol/L VBG O2 Saturation % VBG Base Excess (-2-3) mmol/L VBG Lactate (0.6-1.4) mmol/L Oxygen Liter Flow L Sodium (136-145) mmol/L Potassium (3.5-5.1) mmol/L Chloride (98-107) mmol/L Carbon Dioxide (21.0-32.0) mmol/L Anion Gap (3-11) mmol/L BUN (7-18) mg/dL Creatinine (0.55-1.02) mg/dL Estimated GFR/1.73 m2 (mL/min/1.73m2) Glucose (74-106) mg/dL Calcium (8.5-10.1) mg/dL Magnesium (1.8-2.4) mg/dL Total Bilirubin (0.2-1.0) mg/dL AST (15-37) U/L ALT (14-59) U/L Alkaline Phosphatase (46-116) U/L Troponin I (<or=60) ng/L C-Reactive Protein (0.0-0.3) mg/dL NT-Pro-B Natriuret Pep (<300) pg/mL Total Protein (6.4-8.2) g/dL Albumin (3.4-5.0) g/dL Procalcitonin ng/mL TSH Stool Description Not Applicable Stool Calprotectin mcg/g Stool Campylobacter PCR (Negative) Negative Stl C.difficile Tox PCR (Negative) Stool Salmonella PCR (Negative) Negative Stool Shigella PCR (Negative) Negative Stool Ova & Parasites SEE BELOW Endomysial IgA Ab (Negative) Tiss Transglutamin IgG U/mL Tiss Transglutamin IgA U/mL Gliadin (Deamidat) IgG U Gliadin (Deamidat) IgA U COVID-19 Source SARS-CoV-2 (PCR) (Negative) Urine Legionella Ag (Negative) Shiga Toxin (PCR) (Negative) Negative Add-On Test Request Range/Units 05/13/22 05/13/22 05/13/22 06:39 09:40 14:10 WBC (4.4-10.8) 10^3/uL RBC (3.93-5.22) 10^6/uL Hgb (11.2-15.7) g/dL Hct (36.0-46.0) % MCV (80-95) fL MCH (27.0-33.0) pg MCHC (32.0-36.0) % RDW (11.7-14.6) % Plt Count (130-400) 10^3/uL MPV (8.0-11.0) fL Immature Gran % Neutrophils % Lymphocytes % Monocytes % Eosinophils % Basophils % Nucleated RBC % (0.0-0.3) % Absolute Neutrophils (1.2-6.7) 10^3/uL Absolute Lymphocytes (1.2-3.4) 10^3/uL Absolute Monocytes (0.1-0.8) 10^3/uL Absolute Eosinophils (0.0-0.7) 10^3/uL Absolute Basophils (0.0-0.2) 10^3/uL RBC Morphology ABG Sample Site Right Radial ABG pH (7.35-7.45) 7.37 ABG pCO2 (35-45) mmHg 36 ABG pO2 (80-105) mmHg 95 ABG HCO3 (22-26) mmol/L 21 L ABG Total CO2 (23-27) mmol/L 20 L ABG O2 Saturation (95-98) % 96 ABG Base Excess (-2-3) mmol/L -4 L VBG pH (7.31-7.41) VBG pCO2 (41-51) mmHg VBG pO2 mmHg VBG HCO3 (23-28) mmol/L VBG Total CO2 (24-29) mmol/L VBG O2 Saturation % VBG Base Excess (-2-3) mmol/L VBG Lactate (0.6-1.4) mmol/L Oxygen Liter Flow L 15 Sodium (136-145) mmol/L 139 Potassium (3.5-5.1) mmol/L 4.8 Chloride (98-107) mmol/L 103 Carbon Dioxide (21.0-32.0) mmol/L 27.7 Anion Gap (3-11) mmol/L 8.3 BUN (7-18) mg/dL 25 H Creatinine (0.55-1.02) mg/dL 1.5 H Estimated GFR/1.73 m2 (mL/min/1.73m2) 34.33 Glucose (74-106) mg/dL 295 H Calcium (8.5-10.1) mg/dL 9.4 Magnesium (1.8-2.4) mg/dL Total Bilirubin (0.2-1.0) mg/dL AST (15-37) U/L ALT (14-59) U/L Alkaline Phosphatase (46-116) U/L Troponin I (<or=60) ng/L C-Reactive Protein (0.0-0.3) mg/dL NT-Pro-B Natriuret Pep (<300) pg/mL 6624 H Total Protein (6.4-8.2) g/dL Albumin (3.4-5.0) g/dL Procalcitonin ng/mL 0.5 TSH Stool Description Stool Calprotectin mcg/g Stool Campylobacter PCR (Negative) Stl C.difficile Tox PCR (Negative) Stool Salmonella PCR (Negative) Stool Shigella PCR (Negative) Stool Ova & Parasites Endomysial IgA Ab (Negative) Tiss Transglutamin IgG U/mL Tiss Transglutamin IgA U/mL Gliadin (Deamidat) IgG U Gliadin (Deamidat) IgA U COVID-19 Source SARS-CoV-2 (PCR) (Negative) Urine Legionella Ag (Negative) Shiga Toxin (PCR) (Negative) Add-On Test Request Range/Units 05/14/22 05/15/22 14:20 06:35 WBC (4.4-10.8) 10^3/uL 11.28 H RBC (3.93-5.22) 10^6/uL 3.04 L Hgb (11.2-15.7) g/dL 9.8 L Hct (36.0-46.0) % 30.7 L MCV (80-95) fL 101 H MCH (27.0-33.0) pg 32.2 MCHC (32.0-36.0) % 31.9 L RDW (11.7-14.6) % 14.5 Plt Count (130-400) 10^3/uL 352 MPV (8.0-11.0) fL 10.6 Immature Gran % Neutrophils % Lymphocytes % Monocytes % Eosinophils % Basophils % Nucleated RBC % (0.0-0.3) % Absolute Neutrophils (1.2-6.7) 10^3/uL Absolute Lymphocytes (1.2-3.4) 10^3/uL Absolute Monocytes (0.1-0.8) 10^3/uL Absolute Eosinophils (0.0-0.7) 10^3/uL Absolute Basophils (0.0-0.2) 10^3/uL RBC Morphology ABG Sample Site ABG pH (7.35-7.45) ABG pCO2 (35-45) mmHg ABG pO2 (80-105) mmHg ABG HCO3 (22-26) mmol/L ABG Total CO2 (23-27) mmol/L ABG O2 Saturation (95-98) % ABG Base Excess (-2-3) mmol/L VBG pH (7.31-7.41) VBG pCO2 (41-51) mmHg VBG pO2 mmHg VBG HCO3 (23-28) mmol/L VBG Total CO2 (24-29) mmol/L VBG O2 Saturation % VBG Base Excess (-2-3) mmol/L VBG Lactate (0.6-1.4) mmol/L Oxygen Liter Flow L Sodium (136-145) mmol/L Potassium (3.5-5.1) mmol/L Chloride (98-107) mmol/L Carbon Dioxide (21.0-32.0) mmol/L Anion Gap (3-11) mmol/L BUN (7-18) mg/dL Creatinine (0.55-1.02) mg/dL Estimated GFR/1.73 m2 (mL/min/1.73m2) Glucose (74-106) mg/dL Calcium (8.5-10.1) mg/dL Magnesium (1.8-2.4) mg/dL Total Bilirubin (0.2-1.0) mg/dL AST (15-37) U/L ALT (14-59) U/L Alkaline Phosphatase (46-116) U/L Troponin I (<or=60) ng/L C-Reactive Protein (0.0-0.3) mg/dL NT-Pro-B Natriuret Pep (<300) pg/mL Total Protein (6.4-8.2) g/dL Albumin (3.4-5.0) g/dL Procalcitonin ng/mL TSH Stool Description Stool Calprotectin mcg/g Stool Campylobacter PCR (Negative) Stl C.difficile Tox PCR (Negative) Stool Salmonella PCR (Negative) Stool Shigella PCR (Negative) Stool Ova & Parasites Endomysial IgA Ab (Negative) Tiss Transglutamin IgG U/mL Tiss Transglutamin IgA U/mL Gliadin (Deamidat) IgG U Gliadin (Deamidat) IgA U COVID-19 Source SARS-CoV-2 (PCR) (Negative) Urine Legionella Ag (Negative) Negative Shiga Toxin (PCR) (Negative) Add-On Test Request
--- NOTE | 2022-05-16 10:14 | CMPROGNOTE_ITS ---
- If Service Date Differs Date of service: 05/16/22 Time of Service: 10:14 Care Management Progress Note S/O: Elly was lying in bed, her daughter and Jorge Luis at her bedside, CM coordinated Hospice consult with case review. CM continues to follow. A: 71 year old female admitted to [facility] for Dehydration, Acute Gastroenteritis P: Anticipate Elly will return home to be admitted to Hospice, tomorrow. She will have a hospice consult today to finalize plan. Anticipate she will transport via EMS, CM continues to follow. - Guardianship if Applicable Guardianship: Other (Grandson, Jorge Luis Zepeda )
[2022-05-16 11:55] LABS: Fungitell Qualitative Negative (Negative); Fungitell Quantitative Value <31 pg/mL (<60 pg/mL)
--- NOTE | 2022-05-16 14:00 | PCPN_ITS ---
Date of service: 05/16/22 Time of Service: 07:00 Assessment and Plan Assessment and plan (1) Comfort measures only status: Status: Acute Assessment and plan: Elly and Mike have known each other a long time. She wants to be kept comfortable and to go home. Her main complaint today was cough, this is been fairly chronic. She did vomit while I was in the room. I spoke to hospitalist staff and they are going to increase her morphine to help with the cough. Tessalon Perles have not helped. Also she does have an antiemetic already ordered. Staff states that they will give this to her. I did call up Jorge Luis and he states that after I saw Elly she had a turn for the worst. Family is coming to the room. He is concerned about comfort care orders and is questioning whether or not this was done too soon. We talked about this for some time. Jorge Luis has done a fantastic job and has always put Elly's wishes first. Elly's wishes now to go home and peacefully. 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 He would like this to be stopped as he feels like this is prolonging her dying. I did speak with Dr. Kendrick and we agreed on a plan regarding use of Ativan, morphine, and reduction in the high flow oxygen I did receive a message that she was fairly comfortable but that the family had congregated and they felt that she was needing more morphine and was anxious about her breathing. I did give orders to [facility] nurse regarding morphine, Ativan and reduction of the high flow oxygen and transferred this to nasal can matiasla. This was done and she peacefully Jorge Luis did write me via Elly's portal. He was upset about the transition and felt that Elly did have some anxiety around the time of her . At the same time he was also content that she was now comfortable. (2) Respiratory failure, [id number]: Status: Acute (3) CHF (congestive heart failure): Status: Chronic (4) Chronic vomiting: Status: Chronic Subjective Subjective Interval history since last seen: Elly and Mike have known each other for about 6 to 12 months. She has severe COPD and has long-term caregivers. Her grandson, Jorge Luis is her DPOA. He is excellent and pays attention to details. Elly was admitted for hypoxia. She did have visits from her family and chooses to go on comfort measures. She expects that she will soon. She is on a morphine pump. In the past Elly was clear that she wanted to be alive to say goodbye to family. She states she has now done this. She wants to go home and peacefully. Exam Narrative Exam Narrative: Elly is lying in bed. She is talking in complete sentences. She is oriented x3. Her breathing is labored but not excessively so. Her heart rate is regular. Objective Last Vital Signs Temp 97.5 F L 05/15/22 07:31 Pulse 100 H 05/16/22 07:52 Resp 24 05/15/22 12:49 BP 115/70 05/15/22 07:31 Pulse Ox 92 05/16/22 07:52 Laboratory Results - last 24 hr 05/13/22 05/14/22 14:10 14:20 Urine Legionella Ag Negative B-(1,3)-D-Glucan Quant <31 B-(1,3)-D-Glucan Qual Negative
[2022-05-16] MEDS: LORazepam 20 MG/10 ML VIAL IV/SC ×4 (17:29→20:45)
--- NOTE | 2022-05-16 18:59 | PGE_ITS ---
Date of Service Date of service: 05/16/22 Time of Service: 19:00 Assessment and Plan Assessment and plan (1) Respiratory failure, [id number]: Status: Acute Assessment and plan: Weaning down high flow O2 Could not wean off high flow d/t anxiety of family that were present. Will wean slowly. Cont morphine via CAD pump. Increased basal rate. Cont prn ativan [id number]. (2) Interstitial lung disease: Status: Acute Assessment and plan: Worsened by chronic microaspiration. Has been on Ofev w/o significant improvement. (3) Comfort measures only status: Status: Acute Assessment and plan: Palliative and hospice involved. See above. Subjective Subjective Patient reports: afebrile; denies nausea or vomiting Interval history since last seen: Intermittently drowsy. Confirms her desire for [employer] status. Grandson at bedside. Exam Narrative Exam Narrative: Gen: intermittently falls asleep Const General: no acute distress Nutritional Appearance: obese Orientation: oriented to person and oriented to place Eyes General: appearance normal, both eyes and all related structures Sclera: sclerae normal Resp Effort & Inspection: normal respiratory effort and other (High flow O2 in place.) Auscultation: rales Cardio Rate: regular rate Rhythm: regular rhythm Heart Sounds: S1 normal and S2 normal Extrem General: no pedal edema and no calf tenderness Objective Last Vital Signs Temp 36.4 C L 05/15/22 07:31 Pulse 100 H 05/16/22 07:52 Resp 24 05/15/22 12:49 BP 115/70 05/15/22 07:31 Pulse Ox 92 05/16/22 07:52 Laboratory Results - last 24 hr 05/13/22 05/14/22 14:10 14:20 Urine Legionella Ag Negative B-(1,3)-D-Glucan Quant <31 B-(1,3)-D-Glucan Qual Negative
[2022-05-16] MEDS: Scopolamine 1 MG/3 DAYS PATCH TD (20:09)
--- NOTE | 2022-05-16 21:14 | NUR.NOTE ---
@19:20 patient was placed on 30% of o2 via high flow setting by previous RN,1mg of morphine bolus was given and continuous rate was increased to 4mg/hr. @ 20:15 patient was groaning and frowning 1mg bolus given,continuous rate was increased to 5mg/hr high flow setting decreased to 15% at this time.@ 20:35 high flow system was turned off and patient was placed on 2L of o2 via nasal cannula, patient now appears relaxed and no signs of distress noted.
[2022-05-17 15:22] LABS: Streptococcus Pneumoniae Ag, U Negative (Negative)
[2022-05-18 14:46] LABS: Blastomyces Ag Result Not Detected; Blastomyces Ag Value Not Detected
== END 2022-05-16 22:22 | disposition expired | DRG 393 ==
LOC: ER 21:32 → MS 05-07 15:30
PROVIDERS: Internal Medicine; Student in an Organized Health Care Education/Training Program; Admitting Provider Family Medicine; Emergency Provider Physician Assistant; PCP Nurse Practitioner Family; Visit Provider Family Medicine
DX: K55.1 Chronic vascular disorders of intestine (principal); K52.9 Noninfective gastroenteritis and colitis, unspecified; E86.0 Dehydration; G30.9 Alzheimer's disease, unspecified; F02.80 Dementia in other diseases classified elsewhere, unspecified severity, without behavioral disturbance, psychotic disturbance, mood disturbance, and anxiety; N18.9 Chronic kidney disease, unspecified; R11.10 Vomiting, unspecified; Z99.81 Dependence on supplemental oxygen; Z79.4 Long term (current) use of insulin; I48.91 Unspecified atrial fibrillation; D64.9 Anemia, unspecified; Z55.0 Illiteracy and low-level literacy; I95.1 Orthostatic hypotension; I25.2 Old myocardial infarction; K44.9 Diaphragmatic hernia without obstruction or gangrene; J84.10 Pulmonary fibrosis, unspecified; I27.20 Pulmonary hypertension, unspecified; F98.1 Encopresis not due to a substance or known physiological condition; J96.11 Chronic respiratory failure with hypoxia; Z79.899 Other long term (current) drug therapy; K21.9 Gastro-esophageal reflux disease without esophagitis; E11.65 Type 2 diabetes mellitus with hyperglycemia; N39.498 Other specified urinary incontinence; I13.0 Hypertensive heart and chronic kidney disease with heart failure and stage 1 through stage 4 chronic kidney disease, or unspecified chronic kidney disease; D84.9 Immunodeficiency, unspecified; E11.22 Type 2 diabetes mellitus with diabetic chronic kidney disease; M25.512 Pain in left shoulder; K22.89 Other specified disease of esophagus; I50.32 Chronic diastolic (congestive) heart failure; J96.21 Acute and chronic respiratory failure with hypoxia; T17.908A Unspecified foreign body in respiratory tract, part unspecified causing other injury, initial encounter; Z66 Do not resuscitate; Z51.5 Encounter for palliative care
CPT/HCPCS: 36415; 36416; 71275; 78265; 80048; 80053; 82805; 82962; 83516; 84145; 85027; 87449; 87493; 87505; 87635; 92526; 92611; 93005; 96361; 96374; 96375; 97140; 97162; 97166; 97530; 97535; 99285; 71045; 73030; 74176; 74221; 83605; 83735; 83880; 83993; 84443; 84484; 85025; 86140; 86255; 87177; 87385; 87899; 93010; 94640; 94760; 99223; 99232; 99233; G0378; J0131; J0295; J0744; J1200; J1644; J2405; J2765; J3470; J3475; J3490; J7512; J7613; J7620